=== PATIENT | female | born 2000 | race Caucasian/White ===

== ENCOUNTER 2020-07-09 12:47 | Emergency (ER) | payer OTHER, SELFPAY ==
[2020-07-09 12:48] VITALS: BP 124/69; PULSE 83; RESP 15; TEMP 36.4; O2SAT 98; BMI 33.3
--- NOTE | 2020-07-09 13:09 | CT_ITS ---
STUDY: CT ABDOMEN AND PELVIS WITHOUT CONTRAST REASON FOR EXAM: Female, 19 years old. One month history of lower abdominal pain. RADIATION DOSAGE (If Supplied By Facility): CTDIvol = ( 17.61 ) mGy, DLP = ( 955.60 ) mGycm TECHNIQUE: Transaxial images were obtained from the dome of the diaphragm to the symphysis pubis without oral contrast, and without intravenous contrast. Sagittal and coronal images were reconstructed. Individualized dose optimization techniques were used for this CT. COMPARISON: Comparison is made with prior examination of 11/18/2015. FINDINGS: The visualized lung bases are unremarkable. The visualized portions of the heart are within normal limits. Normal liver. Normal gallbladder and extrahepatic biliary system. Normal spleen. Normal pancreas. Normal bilateral adrenal glands. Normal right kidney. Normal left kidney. Normal visualized stomach. Normal small intestine. Normal colon. The appendix is visualized and appears normal. Normal abdominal aorta. Normal inferior vena cava. Normal retroperitoneum. Normal urinary bladder. Normal abdominal wall. Normal osseous structures. CT/Abdomen/Pelvis without Cont IMPRESSION: Normal unenhanced CT of the abdomen and pelvis. Electronically Signed: Anil Hassan MD at 14:48 EDT , Service support ,
--- NOTE | 2020-07-09 13:10 | ED.VIS.GI ---
HPI HPI - GI History of Present Illness Chief Complaint: Abd Pain Detail of Chief Complaint: Abdominal pain intermittently for a month Informant: patient Abdominal Pain/Flank Pain Current Severity: 10/10 Maximum Severity: 10/10 Diarrhea/Melena/Hematochezia GI Symptom: Negative for Diarrhea, Melena and Hematochezia Associated Symptoms LMP: 2 weeks ago Narrative Narrative: Patient presents with abdominal pain over the suprapubic region that is been there off and on for the last month. Patient states that the pains become more frequent over the last week and will last for hours at a time. Currently rates the pain a 10 out of 10. She has had 2 episodes of vomiting today. She denies fevers. She denies blood in her stool or black tarry stools. Last menstrual period was about 2 weeks ago and she has not missed menstrual period. Patient denies dysuria, urgency, or frequency. She has had no abdominal surgeries. She does have history of PCOS. She is never been . [facility] Home Medications NK 01/14/17 [History Last Taken Unknown] Allergy/AdvReac Type Severity Reaction Status Date / Time No Known Allergies Allergy Verified 07/09/20 12:49 Social History Smoking Status: Current every day smoker tobacco type: cigarettes ROS ROS ED Constitutional Constitutional ED: Reports systems reviewed and no addt'l complaints, except as documented; Denies body ache(s), change in weight or chills Eyes Eyes: Denies acute decrease in peripheral vision, change in vision, double vision or loss of vision ENT ENT ED: Reports none; Denies ear pain, lip swelling, loss taste/smell, neck pain, otalgia or sore throat Cardiovascular Cardiovascular: Reports none; Denies abdominal pain, chest pain with activity, leg edema, lightheadedness, palpitations, rapid heart rate or syncope Respiratory/Chest Respiratory/Chest: Reports none; Denies change in mental status, dry cough, dyspnea, hemoptysis, shortness of breath at rest or shortness of breath with exertion Gastrointestinal Gastrointestinal: Reports none, abdominal pain, nausea and vomiting; Denies change in stool character, diarrhea, hematemesis, hematochezia, melena or rectal bleeding Genitourinary Genitourinary ED: Reports none; Denies abdominal discomfort, anuria, dysuria, genital pain or polyuria Musculoskeletal Musculoskeletal: Reports none; Denies arthralgias, back pain, difficulty walking, extremity pain, muscle weakness or myalgias Integumentary Reports none; Denies abscess or rash Neurologic Neurologic: Reports none; Denies abnormal gait, confusion, focal weakness, frequent falls, headache(s), loss of vision, numbness, paresthesias, radicular pain, vertigo or weakness Psychiatric Psychiatric: Reports systems reviewed and no addt'l complaints, except as documented and none; Denies behavioral changes, confusion, difficulty concentrating, hallucinations, suicidal ideation, tactile hallucinations or visual hallucinations Endocrine Endocrinology: Denies none, cold intolerance, excessive sweating, fatigue or heat intolerance Hematologic/Lymphatic Hematologic/Lymphatic: Reports none; Denies anemia, easy bleeding or easy bruising Allergic/Immunologic Allergic/Immunologic ED: Denies as per HPI, none, lip swelling, mouth swelling, throat swelling, tongue swelling or hives EXAM Physical Exam Const Vital Signs: 07/09/20 12:48 Temperature 97.6 F L Temperature Source Temporal Pulse Rate 83 Respiratory Rate 15 Blood Pressure 124/69 H Blood Pressure Mean 87 Pulse Ox 98 Oxygen Delivery Method Room Air Positive well nourished and well developed General Appearance ED: well developed and NAD HEENT Reports TM's clear and moist mucous membranes normocephalic and atraumatic; Negative for trauma or tenderness Tympanic Membrane ED: Yes TM's clear Eyes PERRL and EOMs intact bilaterally General Eye ED: Negative for pale conjunctiva or scleral icterus Neck no lymphadenopathy, supple and no JVD General: Negative for tenderness Chest Wall inspection of chest normal and palpation of chest normal Chest: Negative for tenderness Resp normal respiratory effort and clear to auscultation bilaterally Effort and Inspection: Negative for respiratory distress or pain with movement Auscultation: Negative for rhonchi, wheezes or diminished lung sounds Cardio regular rate, regular rhythm, S1 normal heart sound, S2 normal heart sound and no murmurs Peripheral Pulses: pulses 2+ throughout GI normal to inspection, nondistended, normoactive bowel sounds, soft to palpation, non-distended and no masses; Negative for non-tender Palpation: tender suprapubic Back/Spine no CVA tenderness and no thoracic nor lumbar tenderness Extremity normal to inspection General Extremety ED: Negative for edema General Extremity: Negative for edema Neuro oriented x3, CN's II-XII intact bilaterally, no sensory deficits noted and gait normal Sensorium / Orientation: awake, alert, oriented to person, oriented to place and oriented to time Motor Exam: strength 5/5 throughout and strength abnormal Psych mental status grossly normal Skin no rashes or lesions noted and no wounds MDM MDM MDM Narrative Medical decision making narrative: Work-up in the emergency department was unremarkable. Patient was given Toradol 30 mg IV and she had some pain relief with that. On repeat examination her abdomen is benign. Etiology of her pain is unclear. Patient denies any abnormal vaginal discharge and is never had sexually transmitted disease. The GC and Chlamydia testing results will be pending. Lab Data Attestation: I reviewed the patient's lab results. Labs: Laboratory Results - last 24 hr 07/09/20 07/09/20 07/09/20 13:30 13:30 13:30 WBC 10.6 RBC 4.77 Hgb 14.2 Hct 41.1 MCV 86.2 MCH 29.8 MCHC 34.5 RDW Std Deviation 38.1 RDW Coeff of Connor 12.1 Plt Count Not Reportable MPV 11.7 Immature Gran % (Auto) 0.400 Neut % (Auto) 76.4 H Lymph % (Auto) 16.1 L Kane % (Auto) 6.5 Eos % (Auto) 0.3 Baso % (Auto) 0.3 Absolute Neuts (auto) 8.1 H Absolute Lymphs (auto) 1.70 Nucleated RBC % 0 Differential Comment SCANNED Platelet Estimate ADEQUATE Sodium 138 Potassium 3.4 L Chloride 107 Carbon Dioxide 26.0 Anion Gap 5 BUN 7 Creatinine 0.67 Estim Creat Clear Calc 121.53 Est GFR (MDRD) Af Amer 145 Est GFR (MDRD) Non-Af 120 BUN/Creatinine Ratio 10.4 Glucose 95 Calcium 9.0 Serum , Qual NEGATIVE Urine Color Urine Clarity Urine pH Ur Specific [place] Urine Protein Urine Glucose (UA) Urine Ketones Urine Occult Blood Urine Nitrite Urine Bilirubin Urine Urobilinogen Ur Leukocyte Esterase Urine RBC Urine WBC Ur Squamous Epith Cells Calcium Oxalate Crystal Amorphous Sediment Urine Bacteria Urine Mucus 07/09/20 13:30 WBC RBC Hgb Hct MCV MCH MCHC RDW Std Deviation RDW Coeff of Connor Plt Count MPV Immature Gran % (Auto) Neut % (Auto) Lymph % (Auto) Kane % (Auto) Eos % (Auto) Baso % (Auto) Absolute Neuts (auto) Absolute Lymphs (auto) Nucleated RBC % Differential Comment Platelet Estimate Sodium Potassium Chloride Carbon Dioxide Anion Gap BUN Creatinine Estim Creat Clear Calc Est GFR (MDRD) Af Amer Est GFR (MDRD) Non-Af BUN/Creatinine Ratio Glucose Calcium Serum , Qual Urine Color Yellow Urine Clarity Turbid Urine pH 6.0 Ur Specific [place] 1.025 Urine Protein 30 H Urine Glucose (UA) Normal Urine Ketones 5 H Urine Occult Blood Negative Urine Nitrite Negative Urine Bilirubin Negative Urine Urobilinogen 4 H Ur Leukocyte Esterase 100 H Urine RBC 0 SEEN Urine WBC 0 SEEN Ur Squamous Epith Cells 0-5 SEEN Calcium Oxalate Crystal RARE Amorphous Sediment 4+ Urine Bacteria 0 SEEN Urine Mucus 0 SEEN Radiography Diagnostic Testing: Radiology Impression Abdomen/Pelvis CT 07/09/20 13:09 IMPRESSION: Normal unenhanced CT of the abdomen and pelvis. Electronically Signed: Anil Hassan MD at 14:48 EDT , Service support , Discharge Plan Triage Chief Complaint: Abd Pain ED Provider: Charito Berman Dx/Rx/DC Orders Clinical Impression: Abdominal pain Instructions: ED Abdominal Pain Unkn Cause Fem Prescriptions: No Action NK RF: 0 Primary Care Provider: Care Physician,No Primary Referrals: Melissa Cerda MD [STAFF PHYSICIAN] - 3-5 Days Care Physician,No Primary [Primary Care Provider] - Disposition Disposition: Home, self care
[2020-07-09] MEDS: Ketorolac 30 MG/ML Syringe IV (13:27)
[2020-07-09] MEDS: Ondansetron 4 MG/2 ML Vial IV (13:27)
[2020-07-09] MEDS: 0.9% Normal Saline 1,000 ML 125 ML IV (13:30)
[2020-07-09 13:38] LABS: Bacteria 0 SEEN /hpf (None Seen); Mucous, Urine 0 SEEN /hpf (<or=2+); Red Blood Cells-Urine 0 SEEN /hpf (0-5); White Blood Cells 0 SEEN /hpf (0-5)
[2020-07-09 13:42] LABS: Absolute Neutrophil Count 8.1 X10^3/uL (2.0-7.7); Basophil# 0.03 X10^3/uL; Basophil% 0.3 % (0-1); Eosinophil# 0.03 X10^3/uL; Eosinophils% 0.3 % (0-5); Hematocrit 41.1 % (37-47); Hemoglobin 14.2 g/dL (12.0-15.0); Lymphocyte % 16.1 % (19-41); Mean Corp Hgb Conc 34.5 g/dL (32-36); Mean Corpuscular Hgb 29.8 pg (27.0-32.0); Mean Corpuscular Volume 86.2 fL (81-99); Mean Platelet Vol. 11.7 fl (6.2-12.0); Monocyte# 0.69 X10^3/uL; Monocyte% 6.5 % (0-10); NRBC Flagged by Analyzer 0 % (0-5); Neutrophil # 8.09 X10^3/uL (2.7-7.7); Neutrophil % 76.4 % (47-70); POSITIVE COUNT YES; RBC Distribution Width CV 12.1 % (11.6-14.6); RBC Distribution Width SD 38.1 fl (35.1-43.9); Red Blood Count 4.77 M/mm3 (4.2-5.4); White Blood Count 10.6 K/mm3 (4.4-11.0)
[2020-07-09 13:43] LABS: Color, Urine Yellow (Yellow); Glucose, Dipstick Normal (Normal); Ketone-Dipstick 5 mg/dl (Negative); Leukocyte Esterase-Dipstick 100 /ul (Negative); Nitrite-Dipstick Negative (Negative); Occult Blood-Urine Negative /ul (Negative); Protein-Dipstick 30 mg/dl (Negative); Specific Gravity, Urine 1.025 (1.002-1.030); Urine Bilirubin Dipstick Negative (Negative); Urine Clarity Turbid (Clear); Urine Urobilinogen 4 mg/dl (Normal)
[2020-07-09 13:49] LABS: Amorphous Sediment 4+; Calcium Oxalate Crystals Ur RARE /hpf (<or=2+); Squamous Epithelial Cells - UA 0-5 SEEN /hpf (5-10)
[2020-07-09 13:57] LABS: Anion Gap 5 (5-15); BUN 7 mg/dL (7-18); BUN/Creat Ratio 10.4 RATIO (10-20); Chloride 107 mmol/L (98-107); Creatinine, Serum 0.67 mg/dL (0.55-1.02); EST Glomerular Filtration Rate 120 mL/min (>60); Est Glom Filt Rate - Afr Amer 145 mL/min (>60); Estimated Creatinine Clearance 121.53 ml/min; Glucose 95 mg/dL (74-106); Potassium 3.4 mmol/L (3.5-5.1); Sodium Level 138 mmol/L (136-145)
[2020-07-09 14:03] LABS: Differential Indicated SCAN CRITERIA MET
[2020-07-09 14:05] LABS: Differential Comment SCANNED; Internal QC Validated? YES +Cl - CLEAR BKGD; Platelet Estimate ADEQUATE (ADEQ); Pregnancy, Serum, hCG Quali. NEGATIVE Negative
[2020-07-09 15:54] VITALS: PULSE 58; RESP 16; RESP 18; O2SAT 98
[2020-07-09 16:49] LABS: Chlamydia Trachomatis by PCR Negative (Negative); Neisserai gonorrhoeae by PCR Negative (Negative)
[2020-07-09 16:50] LABS: Probe Check PASS; Sample Adequacy Control PASS; Specimen Processing Control PASS
== END 2020-07-09 15:56 | disposition home or self-care (01) ==
PROVIDERS: Emergency Provider Emergency Medicine
DX: R10.9 Unspecified abdominal pain (principal); R11.2 Nausea with vomiting, unspecified; F17.210 Nicotine dependence, cigarettes, uncomplicated
CPT/HCPCS: 74176; 80048; 81001; 84703; 85025; 87491; 87591; 96361; 96374; 96375; 99284; A4216; J2405

== ENCOUNTER 2020-07-09 23:08 | Emergency (ER) | payer OTHER, SELFPAY ==
[2020-07-09 12:48] VITALS: BMI 33.3
[2020-07-09 23:09] VITALS: BP 126/75; PULSE 77; RESP 18; TEMP 36.2; O2SAT 98; BMI 34.8
--- NOTE | 2020-07-09 23:22 | ED.VIS.FEGU ---
HPI HPI - Female History of Present Illness Chief Complaint: Female C/O Narrative Narrative: Patient presents with persistent pain in her suprapubic region. She was seen in the emergency department the full work-up just this afternoon. She was discharged to take ibuprofen. She was given Toradol. Lab work and imaging studies showed nothing acute. They did do gonorrhea and Chlamydia testing that is pending at this time. She states she has persistent pain and had one episode of emesis this evening. 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 Stated she needs something stronger for pain. PFSH PFSH Home Medications ondansetron 4 mg PO Q8H #10 tab 07/09/20 [Rx Last Taken Unknown] oxycodone-acetaminophen [Percocet] 1 tab PO Q8H PRN 3 Days #10 tab 07/09/20 [Rx Last Taken Unknown] Allergy/AdvReac Type Severity Reaction Status Date / Time No Known Allergies Allergy Verified 07/09/20 12:49 Social History Smoking Status: Current every day smoker tobacco type: cigarettes ROS ROS ED ROS Narrative ROS General: Denies fever, chills, sweats Eyes: Denies visual changes, blurred vision, double vision ENT: Denies ear pain, rhinorrhea, sore throat Cardiovascular: Denies chest pain, palpitations, heart racing Respiratory: Denies dyspnea, cough, sputum, dyspnea on exertion, orthopnea,PND GI: See HPI : Denies dysuria, hematuria, frequency Musculoskeletal: Denies myalgias, arthralgias, neck pain, back pain Skin: Denies rash, abscess, abrasions Neuro: Denies headache, weakness, paresthesia Psych: Denies depression, anxiety Endo: Denies polyuria, polydipsia, polyphagia Heme: Denies easy bruising, easy bleeding, lymphadenopathy Allergy: Denies hives, swelling EXAM Physical Exam Narrative Exam Narrative: Vital signs reviewed General: Well-nourished well-developed Head: Normocephalic atraumatic Eyes: Pupils equal round and reactive to light extraocular movements intact ENT: TMs clear no hemotympanum no trauma Neck: Nontender full range of motion Cardiovascular: Regular rate rhythm no murmurs normal S1-S2 Respiratory: No distress clear to auscultation bilaterally chest nontender Abdomen: Soft nontender nondistended normal bowel sounds no masses Back: Nontender no CVA tenderness Extremities: Nontender active range of motion ?4 extremities no trauma Skin: Normal color no trauma Neuro alert oriented cranial nerves II through XII intact normal strength sensation reflexes Const Vital Signs: 07/09/20 23:09 Temperature 97.2 F L Temperature Source Temporal Pulse Rate 77 Respiratory Rate 18 Blood Pressure 126/75 H Blood Pressure Mean 92 Pulse Ox 98 Oxygen Delivery Method Room Air MDM MDM MDM Narrative Medical decision making narrative: Given injection of morphine and oral Zofran. Will be given a short course of Percocet and Zofran for home. We will follow-up as an outpatient. I do not feel she needs repeat lab work or imaging. Discharge Plan Triage Chief Complaint: Female C/O ED Provider: Tani Joseph Dx/Rx/DC Orders Clinical Impression: Abdominal pain Instructions: ED Abdominal Pain Unkn Cause Fem Prescriptions: New ondansetron 4 mg tablet,disintegrating 4 mg PO Q8H Qty: 10 RF: 0 oxycodone-acetaminophen [Percocet] 5-325 mg tablet 1 tab PO Q8H PRN (Reason: pain) 3 Days Qty: 10 RF: 0 Primary Care Provider: Care Physician,No Primary Referrals: Care Physician,No Primary [Primary Care Provider] - Disposition Disposition: Home, self care
[2020-07-09] MEDS: Ondansetron ODT 4 MG Tablet 8 MG PO (23:44)
[2020-07-09] MEDS: Morphine 4 MG/ML Syringe IM (23:45)
== END 2020-07-10 00:02 | disposition home or self-care (01) ==
LOC: ED 23:32
PROVIDERS: Emergency Provider Emergency Medicine
DX: R10.9 Unspecified abdominal pain (principal); R10.2 Pelvic and perineal pain; R11.10 Vomiting, unspecified; F17.210 Nicotine dependence, cigarettes, uncomplicated; Z79.899 Other long term (current) drug therapy
CPT/HCPCS: 96372; 99282

== ENCOUNTER 2020-12-08 13:05 | Emergency (ER) | payer OTHER, SELFPAY ==
[2020-12-08 13:06] VITALS: BP 116/64; PULSE 86; RESP 18; TEMP 35.5; O2SAT 97; BMI 36.1
== END 2020-12-08 15:25 | disposition left against medical advice (07) ==
LOC: ED 15:37
DX: R11.2 Nausea with vomiting, unspecified (principal); Z53.21 Procedure and treatment not carried out due to patient leaving prior to being seen by health care provider

== ENCOUNTER 2020-12-11 02:49 | Emergency (ER) | payer OTHER, SELFPAY ==
[2020-12-11 02:49] VITALS: BP 127/81; PULSE 91; RESP 18; TEMP 36; O2SAT 100; BMI 36.6
--- NOTE | 2020-12-11 03:01 | EX.ED.DYSGE1 ---
HPI History of Present Illness Chief Complaint: Nausea/Vomiting Informant: patient and spouse/S.O. Onset/Context/Timing Onset: Weeks Context: Sudden Onset Timing: Intermittent Quality: Nausea and vomiting Location: Thought to be due to Current Severity: Mild Maximum Severity: Severe Worsened by: Relieved by: Nothing Associated Symptoms Associated Symptoms: Thirst, dry mouth lightheadedness Narrative Narrative: Patient is a 19-year-old G 1, P0, Ab0 female whose last normal menstrual period was November 30. She had a home positive test. She has symptoms of . She is scheduled to see an OB next week. She has had no care. She complains of thirst, dry mouth and orthostatic symptoms. She presents because she vomited several times at work. She denies headache, visual, ocular auditory symptoms. Denies cardiac respiratory symptoms. She denies dysuria, frequency, urgency or hematuria. She denies rash. She denies myalgias arthralgias. Prior similar symptoms: No Recent Illness/Hospitalization: No PFSH PFSH Medical History (Updated 12/11/20 @ 03:[address] Wilfredo Mendez MD) Asthma Medical History no medical history no medical history Home Medications ondansetron 4 mg PO Q8H PRN PRN #10 tab 12/11/20 [Rx Last Taken Unknown] Allergy/AdvReac Type Severity Reaction Status Date / Time No Known Allergies Allergy Verified 12/11/20 02:52 Surgical History no surgical history no surgical history Social History (Updated 12/11/20 @ 03:[address] Wilfredo Mendez MD) household members: significant other Smoking Status: Current every day smoker tobacco type: cigarettes alcohol intake: never substance use type: does not use ROS ROS ED Constitutional Constitutional ED: Denies chills, fever(s), subjective, sweats or weight loss Eyes Eyes: Denies blurry vision, change in vision or diplopia ENT ENT ED: Denies ear pain, rhinorrhea or sore throat Cardiovascular Cardiovascular: Denies chest pain Respiratory/Chest Respiratory/Chest: Denies cough, dyspnea or dyspnea on exertion Gastrointestinal Gastrointestinal: Reports nausea and vomiting; Denies abdominal pain, constipation, diarrhea or melena Genitourinary Genitourinary ED: Reports LMP (females 10-50); Denies dysuria, hematuria or urinary frequency Musculoskeletal Musculoskeletal: Denies arthralgias, back pain, myalgias or neck pain Integumentary Denies rash Neurologic Neurologic: Denies headache(s) or weakness Endocrine Endocrinology: Denies polydipsia, polyphagia or polyuria EXAM Physical Exam Const Vital Signs: 12/11/20 02:49 Temperature 96.8 F L Temperature Source Temporal Pulse Rate 91 Respiratory Rate 18 Blood Pressure 127/81 H Blood Pressure Mean 96 Pulse Ox 100 Oxygen Delivery Method Room Air Positive well nourished, well developed and obese General Appearance ED: well developed and NAD; Negative for pallor Nutritional Appearance: obese HEENT Reports dry mucous membranes HEENT Narrative: Head is atraumatic normocephalic. Nares patent. Ears normal. Posterior pharynx not erythema or exudate. Mouth ED: Yes dry mucous membranes Mouth: dry mucous membranes Eyes PERRL and EOMs intact bilaterally General Eye ED: Negative for pale conjunctiva or scleral icterus Neck no lymphadenopathy, supple and no JVD Resp normal respiratory effort and clear to auscultation bilaterally Cardio regular rate, regular rhythm, S1 normal heart sound, S2 normal heart sound and no murmurs GI normal to inspection, nondistended, normoactive bowel sounds, non-tender and non-distended Palpation: soft Back/Spine no CVA tenderness Cervical Spine: Negative for cervical spine tenderness Thoracic Spine / Upper Back: Negative for thoracic spinal tenderness or paraspinal muscle tenderness Extremity normal to inspection General Extremety ED: Negative for edema or tenderness General Extremity: Negative for edema Neuro oriented x3, CN's II-XII intact bilaterally and no sensory deficits noted Sensorium / Orientation: alert Motor Exam: strength 5/5 throughout Psych mental status grossly normal Skin no rashes or lesions noted and no wounds General Skin Exam: Negative for jaundice or pallor MDM MDM MDM Narrative Medical decision making narrative: Patient presents with hyperemesis gravidarum first trimester. Urine was obtained for ketones specific gravity. She was treated with 1 L of normal saline and 4 mg of Zofran. Patient was reassessed at 0410. Her nausea is resolved. She feels hungry. She has had no vomiting. She is passed p.o. challenge. She has an appointment with her animal science instructor on Tuesday, December 16. Lab Data Attestation: I reviewed the patient's lab results. Lab results narrative: Urine is a contaminated specimen with 10 epithelial cells. Since patient has rare bacteria negative nitrites and no symptoms culture was not sent even though she is . There is ketones. Specific gravity is 1.015. Labs: Laboratory Results - last 24 hr 12/11/20 03:07 Urine Color Yellow Urine Clarity Clear Urine pH 6.5 Ur Specific [place] 1.015 Urine Protein 15 H Urine Glucose (UA) Normal Urine Ketones 50 H Urine Occult Blood Negative Urine Nitrite Negative Urine Bilirubin Negative Urine Urobilinogen 1 H Ur Leukocyte Esterase 25 H Urine RBC 0 SEEN Urine WBC 0-5 SEEN Ur Squamous Epith Cells 5-10 SEEN Amorphous Sediment 1+ Urine Bacteria RARE Urine Mucus 0 SEEN Discharge Plan Triage Chief Complaint: Nausea/Vomiting ED Provider: Wilfredo Mendez Dx/Rx/DC Orders Clinical Impression: Hyperemesis gravidarum with dehydration, Ketosis Instructions: ED Hyperemesis Gravidarum Prescriptions: New ondansetron [ondansetron] 4 MG tablet 4 mg PO Q8H PRN PRN (Reason: Nausea) Qty: 10 RF: 0 Primary Care Provider: Care Physician,No Primary Referrals: Care Physician,No Primary [Primary Care Provider] - Doctor,Your [STAFF PHYSICIAN] - [facility] appointment Disposition Disposition: Home, Self Care
[2020-12-11] MEDS: 0.9% Normal Saline 1,000 ML 1000 ML IV (03:08)
[2020-12-11 03:15] LABS: Mucous, Urine 0 SEEN /hpf (<or=2+); Red Blood Cells-Urine 0 SEEN /hpf (0-5)
[2020-12-11] MEDS: Ondansetron 4 MG/2 ML Vial IV (03:15)
[2020-12-11 03:18] LABS: Color, Urine Yellow (Yellow); Glucose, Dipstick Normal (Normal); Ketone-Dipstick 50 mg/dl (Negative); Leukocyte Esterase-Dipstick 25 /ul (Negative); Nitrite-Dipstick Negative (Negative); Occult Blood-Urine Negative /ul (Negative); Protein-Dipstick 15 mg/dl (Negative); Specific Gravity, Urine 1.015 (1.002-1.030); Urine Bilirubin Dipstick Negative (Negative); Urine Clarity Clear (Clear); Urine Urobilinogen 1 mg/dl (Normal); Urine pH 6.5 (5.0 - 8.0)
[2020-12-11 03:42] LABS: Amorphous Sediment 1+; Bacteria RARE /hpf (None Seen); White Blood Cells 0-5 SEEN /hpf (0-5)
[2020-12-11 03:43] LABS: Squamous Epithelial Cells - UA 5-10 SEEN /hpf (5-10)
[2020-12-11 04:24] VITALS: BP 125/60; PULSE 78; RESP 18; O2SAT 97
== END 2020-12-11 04:28 | disposition home or self-care (01) ==
PROVIDERS: Emergency Provider Emergency Medicine
DX: O21.1 Hyperemesis gravidarum with metabolic disturbance (principal); E86.0 Dehydration; O99.511 Diseases of the respiratory system complicating pregnancy, first trimester; J45.909 Unspecified asthma, uncomplicated; O99.211 Obesity complicating pregnancy, first trimester; E66.9 Obesity, unspecified; O99.331 Smoking (tobacco) complicating pregnancy, first trimester; F17.210 Nicotine dependence, cigarettes, uncomplicated; Z3A.00 Weeks of gestation of pregnancy not specified
CPT/HCPCS: 81001; 96361; 96374; 99282; J7030; A4216; J2405

== ENCOUNTER 2020-12-12 17:01 | Emergency (ER) | payer BC, OTHER, SELFPAY ==
[2020-12-12 17:03] VITALS: BP 112/63; PULSE 91; RESP 14; TEMP 36.1; O2SAT 98; BMI 36.6
--- NOTE | 2020-12-12 17:45 | EDS_ITS ---
HPI HPI - Female History of Present Illness Chief Complaint: Informant: patient Narrative Narrative: 19-year-old female G1, P0 states that she has been vomiting since 2:00 this afternoon. 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 States she was given a prescription for Zofran ODT. She states about 15 minutes after she takes the Zofran she vomits it back up. I asked how that could be if it dissolved she states she does not know but the emesis is white. She does not remember who her learning facilitator is but notes that she has an appointment next week. She notes constipation. No fevers. PFSH PFSH Medical History Asthma Home Medications ondansetron 4 mg PO Q8H PRN PRN #10 tab 12/11/20 [Rx Last Taken Unknown] promethazine 25 mg PO Q6H PRN PRN #10 tablet 12/12/20 [Rx Last Taken Unknown] Allergy/AdvReac Type Severity Reaction Status Date / Time No Known Allergies Allergy Verified 12/12/20 17:03 Social History household members: significant other Smoking Status: Current every day smoker tobacco type: e-cigarettes alcohol intake: never substance use type: does not use ROS ROS ED Constitutional Constitutional ED: Denies chills, fever(s) or weight loss Eyes Eyes: Denies change in vision or diplopia ENT ENT ED: Denies ear pain, rhinorrhea or sore throat Cardiovascular Cardiovascular: Denies chest pain, orthopnea, palpitations or racing heartbeat Respiratory/Chest Respiratory/Chest: Denies cough, dyspnea or orthopnea Gastrointestinal Gastrointestinal: Reports constipation, nausea and vomiting; Denies abdominal pain or diarrhea Genitourinary Genitourinary ED: Denies dysuria, hematuria or urinary frequency Musculoskeletal Musculoskeletal: Denies arthralgias or myalgias Integumentary Denies abscess or rash Neurologic Neurologic: Denies headache(s) or weakness Psychiatric Psychiatric: Denies anxiety, depression, suicidal ideation or suicidal thoughts Endocrine Endocrinology: Denies polydipsia, polyphagia or polyuria Allergic/Immunologic Allergic/Immunologic ED: Denies mouth swelling, tongue swelling or urticaria EXAM Physical Exam Const Vital Signs: 12/12/20 17:03 Temperature 96.9 F L Temperature Source Temporal Pulse Rate 91 Respiratory Rate 14 Blood Pressure 112/63 Blood Pressure Mean 79 Pulse Ox 98 Oxygen Delivery Method Room Air Positive well nourished and well developed General Appearance ED: well developed HEENT Reports normocephalic, head/scalp atraumatic, TM's clear and moist mucous membranes Negative for trauma Tympanic Membrane ED: Yes TM's clear Eyes PERRL and EOMs intact bilaterally Neck no lymphadenopathy, supple and no JVD Resp normal respiratory effort and clear to auscultation bilaterally Cardio regular rate, regular rhythm and no murmurs GI normal to inspection, nondistended, normoactive bowel sounds and non-tender Palpation: soft Back/Spine no CVA tenderness and normal ROM Extremity normal to inspection General Extremety ED: Negative for edema General Extremity: Negative for edema Neuro oriented x3 and CN's II-XII intact bilaterally Sensorium / Orientation: alert Motor Exam: strength 5/5 throughout Psych mental status grossly normal Mood & Affect: Negative for depressed or tearful Skin no rashes or lesions noted and no wounds MDM MDM MDM Narrative Medical decision making narrative: Patient informed nursing that she needs to get some sleep before she goes to work tonight so she needs to leave. I can write for her to have some Phenergan. Discharge Plan Triage Chief Complaint: ED Provider: London Elmore Dx/Rx/DC Orders Clinical Impression: Hyperemesis gravidarum with dehydration Instructions: ED Hyperemesis Gravidarum Prescriptions: New promethazine [promethazine] 25 MG tablet 25 mg PO Q6H PRN PRN (Reason: Nausea) Qty: 10 RF: 0 No Action ondansetron [ondansetron] 4 MG tablet 4 mg PO Q8H PRN PRN (Reason: Nausea) Qty: 10 RF: 0 Primary Care Provider: Care Physician,No Primary Referrals: Care Physician,No Primary [Primary Care Provider] - Activity Restrictions/Additional Instructions: Please follow-up with with your learning facilitator as scheduled Disposition Disposition: Against Medical Advice
--- NOTE | 2020-12-12 18:19 | NURSING ---
Went into room to have patient leave urine specimen and draw labs and start IV. Patient is leaving because she has to go to work and does not have time to be here.She states she cannot wait longer and wants sleep so they cannot stay. Dr Elmore is aware.
== END 2020-12-12 18:35 | disposition left against medical advice (07) ==
PROVIDERS: Emergency Provider Emergency Medicine
DX: O21.1 Hyperemesis gravidarum with metabolic disturbance (principal); E86.0 Dehydration; O99.519 Diseases of the respiratory system complicating pregnancy, unspecified trimester; J45.909 Unspecified asthma, uncomplicated; K59.00 Constipation, unspecified; O99.330 Smoking (tobacco) complicating pregnancy, unspecified trimester; F17.290 Nicotine dependence, other tobacco product, uncomplicated; Z3A.00 Weeks of gestation of pregnancy not specified
CPT/HCPCS: 99282

== ENCOUNTER 2020-12-14 05:33 | Emergency (ER) | payer OTHER, SELFPAY ==
[2020-12-14 05:34] VITALS: BP 136/74; PULSE 78; RESP 16; TEMP 36; O2SAT 97; BMI 39.0
--- NOTE | 2020-12-14 05:45 | EDS_ITS ---
HPI History of Present Illness Chief Complaint: Nausea/Vomiting Informant: patient Onset/Context/Timing Onset: Weeks (2-3) Context: Gradual Onset Timing: Intermittent Quality: Nonbilious nonbloody Current Severity: Severe Maximum Severity: Severe Worsened by: Eating/drinking Relieved by: Nothing Associated Symptoms Associated Symptoms: No pain or vaginal bleeding Narrative Narrative: G1, P0 around 6 weeks by dates with last normal menstrual cycle starting on October 31 presenting with 2 to 3 weeks of vomiting. She was seen here couple days ago prescribed Zofran, however she had a couple episodes of hyperemesis after that that caused her to dissolve the tablet under her tongue and then vomit after she tried to wash the residual down with some water, and then seen abnormal vomit thinking she vomited up all the medication and then she would take another Zofran until basically they were all gone now she does not have any. Today, she has been vomiting continuously for the past 5 hours or so and presents at about 5:30 AM. She states she feels a little shaky and lightheaded and is wondering if we can check her blood sugar since diabetes runs in the family. [facility] Medical History Asthma Home Medications ondansetron 4 mg PO Q8H PRN PRN #10 tab 12/11/20 [Rx Last Taken Unknown] metoclopramide HCl 10 mg PO Q6H PRN #20 tab 12/14/20 [Rx Last Taken Unknown] Allergy/AdvReac Type Severity Reaction Status Date / Time No Known Allergies Allergy Verified 12/12/20 17:03 Social History household members: significant other Smoking Status: Current every day smoker tobacco type: e-cigarettes alcohol intake: never substance use type: does not use ROS ROS ED Constitutional Constitutional ED: Reports malaise; Denies chills or fever(s) Eyes Eyes: Denies change in vision or diplopia ENT ENT ED: Denies rhinorrhea or sore throat Cardiovascular Cardiovascular: Denies chest pain or palpitations Respiratory/Chest Respiratory/Chest: Denies cough or dyspnea Gastrointestinal Gastrointestinal: Reports nausea and vomiting; Denies abdominal pain or diarrhea Genitourinary Genitourinary ED: Denies dysuria or hematuria Musculoskeletal Musculoskeletal: Denies back pain or neck pain Integumentary Denies abscess or rash Neurologic Neurologic: Denies headache(s), paresthesias or weakness Psychiatric Psychiatric: Denies anxiety or suicidal thoughts EXAM Physical Exam Const Vital Signs: 12/14/20 05:34 Temperature 96.8 F L Temperature Source Temporal Pulse Rate 78 Respiratory Rate 16 Blood Pressure 136/74 H Blood Pressure Mean 94 Pulse Ox 97 Oxygen Delivery Method Room Air Positive well nourished and well developed General Appearance ED: well developed and NAD HEENT Reports moist mucous membranes normocephalic and atraumatic Eyes PERRL and EOMs intact bilaterally Neck full ROM and supple Resp normal respiratory effort and clear to auscultation bilaterally Cardio regular rate, regular rhythm and no murmurs Rate: Negative for tachycardic GI non-tender and non-distended Auscultation: normoactive bowel sounds Palpation: soft Back/Spine no CVA tenderness General Back: other FROM Extremity normal to inspection Extremity Narrative: Mildly tremulous General Extremety ED: Negative for edema, pulses abnormal or tenderness General Extremity: Negative for edema or pulses abnormal Neuro oriented x3, CN's II-XII intact bilaterally, no focal motor deficits, no sensory deficits noted and gait normal Sensorium / Orientation: awake and alert Motor Exam: strength 5/5 throughout Skin no rashes or lesions noted and no wounds MDM MDM MDM Narrative Medical decision making narrative: I did a bedside screening ultrasound since she had not had one yet. There appears to be a uterine double decidual sign with a gestational sac without an obvious pole although this is with a small ED screening ultrasound since regular radiology ultrasound is not available at this hour. The gestational sac measures approximately 5w5d, which is consistent with the patient's dates. Given that she is not having symptoms of a threatened , I do not think she needs an official ultrasound, quantitative hCG, or other imaging work-up at this time. We did check her blood sugar and electrolytes, and give her a liter of fluid along with Reglan 5 mg IV. She did feel improved with this but still nauseated. There was no vomiting while she was in the emergency department. Her labs are normal. After the liter of fluid was done, she demanded to the nurse that she take the IV out immediately. She wanted something else for nausea, but not in this IV. 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 Lab Data Attestation: I reviewed the patient's lab results. Labs: Laboratory Results - last 24 hr 12/14/20 12/14/20 05:34 05:44 Sodium 139 Potassium 3.5 Chloride 107 Carbon Dioxide 24.0 Anion Gap 8 BUN 5 L Creatinine 0.70 Estim Creat Clear Calc 102.24 Est GFR (MDRD) Af Amer 138 Est GFR (MDRD) Non-Af 114 BUN/Creatinine Ratio 7.2 L Glucose 96 Calcium 8.9 POC Glucose 101 Discharge Plan Triage Chief Complaint: Nausea/Vomiting ED Provider: Davis Dorman Dx/Rx/DC Orders Clinical Impression: Hyperemesis gravidarum, Early stage of Instructions: ED Hyperemesis Gravidarum Prescriptions: New metoclopramide HCl [metoclopramide HCl] 10 MG tablet 10 mg PO Q6H PRN (Reason: nausea and vomiting) Qty: 20 RF: 0 No Action ondansetron [ondansetron] 4 MG tablet 4 mg PO Q8H PRN PRN (Reason: Nausea) Qty: 10 RF: 0 Primary Care Provider: Care Physician,No Primary Referrals: OB, your [Other] - 3-5 Days if not improving Care Physician,No Primary [Primary Care Provider] - Disposition Disposition: Home, Self Care
[2020-12-14 05:51] LABS: Bedside Glucose 101 mg/dL (70-110)
[2020-12-14] MEDS: 0.9% Normal Saline 1,000 ML 999 ML IV (05:55)
[2020-12-14] MEDS: Metoclopramide 10 MG/2 ML Vial 5 MG IV (05:55)
[2020-12-14 06:22] LABS: Anion Gap 8 (5-15); BUN 5 mg/dL (7-18); BUN/Creat Ratio 7.2 RATIO (10-20); Calcium,Total 8.9 mg/dL (8.5-10.1); Chloride 107 mmol/L (98-107); EST Glomerular Filtration Rate 114 mL/min (>60); Est Glom Filt Rate - Afr Amer 138 mL/min (>60); Estimated Creatinine Clearance 102.24 ml/min; Glucose 96 mg/dL (74-106); Potassium 3.5 mmol/L (3.5-5.1); Sodium Level 139 mmol/L (136-145)
[2020-12-14] MEDS: Ondansetron 8 MG Tablet PO (07:08)
== END 2020-12-14 07:09 | disposition home or self-care (01) ==
PROVIDERS: Emergency Provider Emergency Medicine
DX: O21.0 Mild hyperemesis gravidarum (principal); J45.909 Unspecified asthma, uncomplicated; O99.331 Smoking (tobacco) complicating pregnancy, first trimester; Z3A.01 Less than 8 weeks gestation of pregnancy; Z83.3 Family history of diabetes mellitus
CPT/HCPCS: 80048; 82962; 96361; 96374; 99284; J7030

== ENCOUNTER 2021-01-19 15:16 | Emergency (ER) | payer OTHER, SELFPAY ==
[2021-01-19 15:17] VITALS: BP 128/85; PULSE 90; RESP 16; TEMP 36.3; O2SAT 96; BMI 32.1
== END 2021-01-19 16:16 | disposition left against medical advice (07) ==
LOC: ED 16:19
DX: R10.9 Unspecified abdominal pain (principal); Z53.21 Procedure and treatment not carried out due to patient leaving prior to being seen by health care provider

== ENCOUNTER 2021-04-19 11:17 | Outpatient (CLI) | payer OTHER, SELFPAY ==
[2021-04-19 11:17] VITALS: TEMP 36.4
[2021-04-19 11:23] VITALS: BMI 33.7
[2021-04-19 11:37] VITALS: BP 121/65; PULSE 65
[2021-04-19 11:42] LABS: Color, Urine Yellow (Yellow); Glucose, Dipstick Normal (Normal); Ketone-Dipstick 50 mg/dl (Negative); Leukocyte Esterase-Dipstick 25 /ul (Negative); Nitrite-Dipstick Negative (Negative); Occult Blood-Urine Negative /ul (Negative); Protein-Dipstick 15 mg/dl (Negative); Specific Gravity, Urine 1.015 (1.002-1.030); Urine Clarity Sl. Cloudy (Clear); Urine Urobilinogen 4 mg/dl (Normal); Urine pH 6.5 (5.0 - 8.0)
--- NOTE | 2021-04-19 11:44 | PN_ITS ---
Progress Note 20-year-old G1, P0 at 24/2 weeks, CHAN 08/07/2021 by LMP, presenting with vaginal pain. Patient reports vaginal pain that started yesterday. Pain felt like a pressure. Reports some cramping on and off that felt like menstrual cramps. She had intercourse yesterday as well. Unsure if she had intercourse before or after the cramping started. This morning she noted some yellow/green discharge . Reports movement, denies contractions or leaking of fluid. No itching or burning vaginally, no urinary symptoms. complicated by: Nothing [employer] history: G1 current Medical history: Denies Surgical history: Tonsillectomy Family history noncontributory Social history: Reports marijuana use and vaping, denies alcohol use Allergies: No known drug allergies Medications: Pepcid, Physical Exam: BP: 121/65, HR 65 Gen: No acute distress, comfortable in bed HEENT: Normocephalic/atraumatic Cardiorespiratory: No increased effort Abdomen: Soft, nontender, gravid Extremities: No edema SSE: Thin white discharge. CE: Cervix closed/thick/high FHR: 155/mod angie/+accel/no decel [facility]: quiet A/P:20-year-old G1, P0 at 24/2 weeks, CHAN 08/07/2021 by LMP, presenting with vaginal pressure and green discharge. status reassuring. Not in labor. Will treat empirically for bacterial vaginosis infection. Urinalysis pending. P.o. hydrate well awaiting urinalysis. Encourage at least 2 L of water daily. Encourage decreased vaping and cigarette use. Likely to be discharged home today. Reviewed precautions: Leaking of fluid, vaginal bleeding, decrease movement, regular contractions that are worsening. Has appointment next week.
[2021-04-19 12:24] LABS: Urine Bilirubin Dipstick 1 mg/dL (Negative)
[2021-04-19 13:06] VITALS: TEMP 36.6
[2021-04-19 13:07] VITALS: BP 122/63; PULSE 68
== END 2021-04-19 23:59 | disposition home or self-care (01) ==
LOC: WPOUT 11:21 → WP 11:21
PROVIDERS: Referring Provider Student in an Organized Health Care Education/Training Program; Visit Provider Student in an Organized Health Care Education/Training Program
DX: O23.592 Infection of other part of genital tract in pregnancy, second trimester (principal); N76.0 Acute vaginitis; O99.332 Smoking (tobacco) complicating pregnancy, second trimester; F17.210 Nicotine dependence, cigarettes, uncomplicated; Z3A.24 24 weeks gestation of pregnancy; O26.892 Other specified pregnancy related conditions, second trimester; R10.2 Pelvic and perineal pain
CPT/HCPCS: 59050; 81002; 87086; 87088; 99218; G0378

== ENCOUNTER → 2021-06-08 | Outpatient (CLI) | payer OTHER, SELFPAY | END | disposition home or self-care (01) | LOC: WOBLAB 15:44 | PROVIDERS: Visit Provider Obstetrics & Gynecology | DX: Z34.83 Encounter for supervision of other normal pregnancy, third trimester (principal) | CPT/HCPCS: 36415; 86850 ==

== ENCOUNTER 2021-06-15 11:55 | Outpatient (CLI) | payer OTHER, SELFPAY ==
[2021-06-15 12:09] VITALS: BMI 32.5
[2021-06-15 12:14] VITALS: BP 114/56; PULSE 81; TEMP 36.6
--- NOTE | 2021-06-25 09:08 | OB.TRI.NOTE ---
HPI - General HPI Narrative CHANA DE LA O, is a 20 F who presents for scheduled nonstress test at 32+ weeks gestation. PFSH PFSH Medical History Asthma Home Medications 2 gummy PO/SL DAILY 06/15/21 [History Last Taken 06/14/21 21:00] Allergy/AdvReac Type Severity Reaction Status Date / Time No Known Allergies Allergy Verified 06/15/21 12:12 Social History household members: significant other Smoking Status: Current every day smoker tobacco type: e-cigarettes alcohol intake: never substance use type: does not use NST FHR Rate Baby A NST Reactive:: Yes FHR Category:: Category I Assessment & Plan (1) Intrauterine growth restriction, antepartum: PLAN: 32+ week intrauterine for scheduled nonstress test for intrauterine growth restriction. Reactive nonstress test. Continue present care.
== END 2021-06-15 12:38 | disposition home or self-care (01) ==
LOC: WPOUT 12:00 → WP 12:01
PROVIDERS: Visit Provider Obstetrics & Gynecology
DX: O36.5930 Maternal care for other known or suspected poor fetal growth, third trimester, not applicable or unspecified (principal); O99.333 Smoking (tobacco) complicating pregnancy, third trimester; F17.290 Nicotine dependence, other tobacco product, uncomplicated; Z3A.32 32 weeks gestation of pregnancy
CPT/HCPCS: 59025; 59050; 99218; G0378

== ENCOUNTER 2021-06-20 00:01 | Emergency (ER) | payer OTHER, SELFPAY ==
[2021-06-20 00:03] VITALS: BP 124/56; PULSE 82; RESP 20; TEMP 36.5; O2SAT 96; BMI 33.9
[2021-06-20 01:05] VITALS: BP 124/56; PULSE 78; RESP 16; O2SAT 97
[2021-06-20 01:08] VITALS: O2SAT 97
--- NOTE | 2021-06-20 02:44 | EDS_ITS ---
HPI History of Present Illness Chief Complaint: Asthma Narrative Narrative: 20-year-old female currently in her third trimester presenting with what she believes is an asthma attack. She states she is felt like he has been wheezing all day. She denies chest pain. Patient states she does not have an albuterol inhaler at home. Denies fever, chills, cough. Does admit to mild shortness of breath. [facility] Medical History Asthma Home Medications 2 gummy PO/SL DAILY 06/15/21 [History Last Taken 06/14/21 21:00] Allergy/AdvReac Type Severity Reaction Status Date / Time No Known Allergies Allergy Verified 06/15/21 12:12 Social History household members: significant other Smoking Status: Current every day smoker tobacco type: e-cigarettes alcohol intake: never substance use type: does not use ROS ROS ED Constitutional Constitutional ED: Denies fever(s) or sweats Eyes Eyes: Denies blurry vision ENT ENT ED: Denies rhinorrhea or sore throat Cardiovascular Cardiovascular: Denies chest pain Respiratory/Chest Respiratory/Chest: Reports dyspnea; Denies cough Gastrointestinal Gastrointestinal: Denies abdominal pain, nausea or vomiting Genitourinary Genitourinary ED: Denies dysuria or hematuria Musculoskeletal Musculoskeletal: Denies arthralgias or myalgias Integumentary Denies rash Neurologic Neurologic: Denies headache(s) or weakness Psychiatric Psychiatric: Denies anxiety or depression EXAM Physical Exam Const Vital Signs: 06/20/21 00:03 06/20/21 01:05 06/20/21 01:08 Temperature 97.7 F L Temperature Source Oral Pulse Rate 82 78 Respiratory Rate 20 H 16 Respiratory Effort Non-Labored Respiratory Depth Normal Respiratory Pattern Normal Blood Pressure 124/56 H 124/56 H Blood Pressure Mean 78 Pulse Ox 96 97 Oxygen Delivery Method Room Air Room Air Positive well nourished General Appearance ED: NAD; Negative for pallor HEENT Reports moist mucous membranes atraumatic Eyes PERRL and EOMs intact bilaterally Neck supple Resp normal respiratory effort and clear to auscultation bilaterally Cardio regular rate and regular rhythm Extremity normal to inspection General Extremety ED: Negative for edema or tenderness General Extremity: Negative for edema Neuro oriented x3 and CN's II-XII intact bilaterally Sensorium / Orientation: alert Psych mental status grossly normal Skin General Skin Exam: Negative for jaundice or pallor MDM MDM MDM Narrative Medical decision making narrative: Patient seen and examined for possible asthma exacerbation. On examination she is not wheezing. She is not tachycardic or tachypneic. She states that she feels like she is improving. I offered her breathing treatments but she states he just wants a refill on her albuterol inhaler. She was given 2 puffs of 1 in the ER and discharged home with this. Patient states that she will follow-up with her primary care provider to ensure resolution. She was given return precautions. I do not believe she has blood work or imaging currently. Patient discharged in stable condition. Impression: 1. Asthma exacerbation Discharge Plan Triage Chief Complaint: Asthma ED Provider: Mark Guerrero Dx/Rx/DC Orders Instructions: ED Asthma, Acute (Adult) Prescriptions: No Action 2 gummy PO/SL DAILY RF: 0 Primary Care Provider: Mike Rodriguez Referrals: Care Physician,No Primary [NON-STAFF] - Disposition Disposition: Home, Self Care Discharge Date/Time: 06/20/21 01:08
== END 2021-06-20 01:08 | disposition home or self-care (01) ==
LOC: ED 01:00
PROVIDERS: Emergency Provider Student in an Organized Health Care Education/Training Program; PCP Obstetrics & Gynecology; Visit Provider Student in an Organized Health Care Education/Training Program
DX: O99.513 Diseases of the respiratory system complicating pregnancy, third trimester (principal); J45.901 Unspecified asthma with (acute) exacerbation; O99.333 Smoking (tobacco) complicating pregnancy, third trimester; F17.290 Nicotine dependence, other tobacco product, uncomplicated; Z3A.00 Weeks of gestation of pregnancy not specified
CPT/HCPCS: 99282

== ENCOUNTER 2021-08-11 01:35 | Inpatient (IN) | payer OTHER, MEDICAID, SELFPAY ==
[2021-08-11] VITALS (43 sets, daily range): BP systolic 108–143; BP diastolic 58–92; PULSE 55–98; TEMP 36.3–37; O2SAT 96–100; BMI 34.6
[2021-08-11] MEDS: Lactated Ringers 1,000 ML 50 ML IV (01:48)
[2021-08-11] MEDS: LACTATED RINGERS 500 ML 999 ML IV (01:50)
[2021-08-11 02:06] LABS: Absolute Lymphocyte Count 2.81 X10^3/uL (0.83-4.51); Absolute Neutrophil Count 7.8 X10^3/uL (2.0-7.7); Basophil# 0.03 X10^3/uL; Basophil% 0.3 % (0-1); Eosinophil# 0.14 X10^3/uL; Eosinophils% 1.2 % (0-5); Hematocrit 35.8 % (37-47); Hemoglobin 13.1 g/dL (12.0-15.0); Lymphocyte # 2.81 X10^3/ul (0.83-4.51); Lymphocyte % 24.3 % (19-41); Mean Corp Hgb Conc 36.6 g/dL (32-36); Mean Corpuscular Hgb 31.3 pg (27.0-32.0); Mean Corpuscular Volume 85.6 fL (81-99); Mean Platelet Vol. 12.7 fl (6.2-12.0); Monocyte% 6.1 % (0-10); NRBC Flagged by Analyzer 0 % (0-5); Neutrophil # 7.83 X10^3/uL (2.7-7.7); Neutrophil % 67.6 % (47-70); Platelet Count 273 K/mm3 (150-450); RBC Distribution Width CV 12.5 % (11.6-14.6); RBC Distribution Width SD 38.8 fl (35.1-43.9); Red Blood Count 4.18 M/mm3 (4.2-5.4); White Blood Count 11.6 K/mm3 (4.4-11.0)
[2021-08-11 02:52] LABS: Amphetamine Urine VISTA NEGATIVE (<1000 ng/mL); Barbiturate Urine VISTA NEGATIVE (< 200 ng/mL); Benzodiazepine Urine VISTA NEGATIVE (< 200 ng/mL); Cocaine Urine VISTA NEGATIVE (< 300 ng/mL); Ecstacy Urine VISTA NEGATIVE (< 500 ng/mL); Methadone Urine VISTA NEGATIVE (< 300 ng/mL); PCP Urine VISTA NEGATIVE (< 25 ng/mL); THC Urine VISTA POSITIVE (< 50 ng/mL); Vista UDS pH Range 6
[2021-08-11] MEDS: fentaNYL-bupivacaine (epidural) 100 ML BAG EPIDURAL ×3 (02:55→18:39)
[2021-08-11] MEDS: Ondansetron 4 MG/2 ML Vial IV ×4 (03:26→21:26)
--- NOTE | 2021-08-11 04:45 | PCM.HP.OB ---
HPI - General General Date of Admission: 08/11/21 Date of Service: 08/11/21 Chief Complaint: painful contractions HPI Narrative CHANA DE LA O, is a 20 F G1 who presents at 40 4/7 weeks gestation by LMP 10/31/20 (CHAN 08/07/21) with c/o painful contractions. PFSH PFS Medical History (Updated 08/11/21 @ 04:[address] Martha Montenegro MD) Anxiety Asthma Depression Home Medications iron 1 tablet PO/SL DAILY Check with primary doctor 08/11/21 [History Last Taken Unknown] Allergy/AdvReac Type Severity Reaction Status Date / Time No Known Allergies Allergy Verified 06/15/21 12:12 Family History (Updated 08/11/21 @ 04:[address] Martha Montenegro MD) Father Diabetes Mother Depression Grandmother Breast cancer Surgical History History of adenoidectomy Hx of tonsillectomy Social History (Updated 08/11/21 @ 04:[address] Martha Montenegro MD) household members: significant other Smoking Status: Current every day smoker tobacco type: e-cigarettes alcohol intake: never substance use type: marijuana History 1 Elective abortions Hx Para 0 Spontaneous abortions Hx # Term Pregnancies Ectopic pregnancies Hx # Pregnancies Multiple births # of living children NST FHR Rate Baby A Baseline: 120 Variability:: Moderate Accelerations:: 15 x 15 Decelerations:: None NST Reactive:: Yes FHR Category:: Category I Uterine Activity:: 2/10 Vital Signs Vital Signs Vital Signs: 08/11/21 01:08 08/11/21 01:08 08/11/21 01:15 Temperature 98.0 F Temperature Source Temporal Pulse Rate Blood Pressure 111/58 L BP Systolic 111 BP Diastolic 58 Pulse Ox 08/11/21 01:15 08/11/21 01:14 08/11/21 02:38 Temperature Temperature Source Pulse Rate 73 73 Blood Pressure BP Systolic BP Diastolic Pulse Ox 96 08/11/21 02:38 08/11/21 02:43 08/11/21 02:43 Temperature Temperature Source Pulse Rate 98 Blood Pressure BP Systolic BP Diastolic Pulse Ox 99 100 08/11/21 02:44 08/11/21 02:44 08/11/21 02:48 Temperature Temperature Source Pulse Rate 93 Blood Pressure 121/92 H 125/72 H BP Systolic 121 125 BP Diastolic 92 72 Pulse Ox 08/11/21 02:48 08/11/21 02:48 08/11/21 02:48 Temperature Temperature Source Pulse Rate 71 76 Blood Pressure BP Systolic BP Diastolic Pulse Ox 97 08/11/21 02:53 08/11/21 02:53 08/11/21 02:56 Temperature Temperature Source Pulse Rate 68 66 Blood Pressure 111/58 L BP Systolic 111 BP Diastolic 58 Pulse Ox 08/11/21 02:56 08/11/21 02:58 08/11/21 02:58 Temperature Temperature Source Pulse Rate 57 L Blood Pressure 118/72 BP Systolic 118 BP Diastolic 72 Pulse Ox 98 08/11/21 03:01 08/11/21 03:01 08/11/21 03:03 Temperature Temperature Source Pulse Rate 69 Blood Pressure 110/66 BP Systolic 110 BP Diastolic 66 Pulse Ox 98 08/11/21 03:03 08/11/21 03:06 08/11/21 03:06 Temperature Temperature Source Pulse Rate 65 59 L Blood Pressure BP Systolic BP Diastolic Pulse Ox 99 08/11/21 03:09 08/11/21 03:09 08/11/21 03:11 Temperature Temperature Source Pulse Rate 71 68 Blood Pressure 117/69 BP Systolic 117 BP Diastolic 69 Pulse Ox 08/11/21 03:11 08/11/21 03:13 08/11/21 03:13 Temperature Temperature Source Pulse Rate 67 Blood Pressure 108/65 BP Systolic 108 BP Diastolic 65 Pulse Ox 99 08/11/21 03:16 08/11/21 03:16 08/11/21 03:18 Temperature Temperature Source Pulse Rate 71 Blood Pressure 136/64 H BP Systolic 136 BP Diastolic 64 Pulse Ox 100 08/11/21 03:18 08/11/21 04:15 08/11/21 04:15 Temperature Temperature Source Pulse Rate 62 65 Blood Pressure 112/74 BP Systolic 112 BP Diastolic 74 Pulse Ox Weight Weight: 94.438 kg Body Mass Index (BMI) 34.6 Physical Exam Const alert, oriented x3 and no apparent distress HEENT normocephalic Resp normal respiratory effort, normal air movement and clear to auscultation bilaterally Cardio regular rate and regular rhythm GI normal to inspection, nondistended, normoactive bowel sounds, soft to palpation, non-tender and non-distended Inspection: gravid Narrative: SVE 3/60/-3 per RN exam Labs Labs Labs: Blood Type A NEGATIVE Antibody Screen NEGATIVE Hct 35.8 % (37-47) L Hgb 13.1 g/dL (12.0-15.0) Syphilis Total Ab Pending HBsAg neg, HCV Ab neg, RPR nr, Rubella immune, HIV nr, Assessment & Plan (1) 40 weeks gestation of : PLAN: SVE unchanged Pt comfortable with epidural Recommend pitocin for augmentation - risks, benefits, indications reviewed. Will start Cat I FHR
[2021-08-11] MEDS: Oxytocin 30 units/NS 500 ml 30 UNITS/500 ML IV.SOLN IV (05:17)
[2021-08-11] MEDS: Lactated Ringers 1,000 ML 200 ML IV ×3 (07:57→17:39)
--- NOTE | 2021-08-11 13:06 | PN.OBGYN_ITS ---
Subjective Subjective Patient with some decreased pain with epidural but still feeling contractions Objective Data Objective Data Vital Signs: Vital Signs Temp Pulse BP Pulse Ox 97.9 F 66 113/59 L 98 08/11/21 11:36 08/11/21 11:36 08/11/21 11:36 08/11/21 11:36 Weight: 208 lb 3.2 oz Body Mass Index (BMI) 34.6 Intake & Output: Intake and Output for Last 24 Hours 08/09/21 08/10/21 08/11/21 23:59 23:59 23:59 Intake Total 2489.90 / 2489.90 Output Total 500 / 500 Balance / Lab / Micro Data Result Diagrams: 08/11/21 01:45 Labs: Laboratory Results - last 24 hr 08/11/21 01:45: WBC 11.6 H, RBC 4.18 L, Hgb 13.1, Hct 35.8 L, MCV 85.6, MCH 31.3, MCHC 36.6 H, RDW Std Deviation 38.8, RDW Coeff of Connor 12.5, Plt Count 273, MPV 12.7 H, Immature Gran % (Auto) 0.500, Neut % (Auto) 67.6, Lymph % (Auto) 24.3, [place] % (Auto) 6.1, Eos % (Auto) 1.2, Baso % (Auto) 0.3, Absolute Neuts (auto) 7.8 H, Absolute Lymphs (auto) 2.81, Nucleated RBC % 0 08/11/21 01:45: Blood Type A NEGATIVE, Antibody Screen NEGATIVE 08/11/21 01:45: Syphilis Total Ab Cancelled, Hepatitis C Antibody Cancelled 08/11/21 02:00: Urine Opiates Screen NEGATIVE, Urine Methadone Screen NEGATIVE, Ur Barbiturates Screen NEGATIVE, Ur Phencyclidine Scrn NEGATIVE, Ur Amphetamines Screen NEGATIVE, MDMA (Ecstasy) Screen NEGATIVE, U Benzodiazepines Scrn NEGATIVE, Urine Cocaine Screen NEGATIVE, U Cannabinoids Screen POSITIVE H, Ur Drug Screen Comment Micro: Microbiology 08/11/21 01:50 Nasal Secretion SARS-CoV-2 Antigen (Rapid) - Final Physical Exam Const alert, oriented x3, no apparent distress, average body habitus, healthy appearing and well nourished HEENT normocephalic Eyes PERRL Neck full ROM Resp normal respiratory effort, no retractions and no use of accessory muscles GI GI Narrative: Soft, nontender, gravid Narrative: Cervical exam: /-2. AROM clear fluid Extremity normal to inspection Psych mental status grossly normal, affect normal, speech normal and activity/motor behavior normal Assessment & Plan (1) : PLAN: Patient seen and examined. AROM clear fluid. Continue current management
[2021-08-11] MEDS: Oxytocin 30 units/NS 500 ml 30 UNITS/500 ML IV.SOLN 334 UNITS IV (19:34)
--- NOTE | 2021-08-11 19:59 | EX.PCM.OBRPT ---
Vaginal Delivery Findings Description of Procedure: Normal spontaneous vaginal delivery of a viable female infant, cephalic VICKIE. Head and shoulders delivered with ease. Cord clamped and cut. Baby handed to mom. Placenta delivered via cord traction and fundal massage. First degree midline labial laceration and left labial laceration noted and repaired in typical fashion. EBL 350cc APGARS 9/9
[2021-08-11] MEDS: Methylergonovine 0.2 MG/ML Ampul IM (21:05)
[2021-08-11] MEDS: Ibuprofen 600 MG Tablet PO (21:23)
[2021-08-11] MEDS: 0.9% Saline Lock 10 ML Syringe IV (21:26)
[2021-08-12] VITALS (13 sets, daily range): BP systolic 112–132; BP diastolic 58–73; PULSE 56–90; RESP 16–18; TEMP 35.7–36.7; O2SAT 96–99
--- NOTE | 2021-08-12 09:10 | PCM.PN.OB ---
Subjective Subjective Patient without complaints. Breast-feeding going well. Wants to go home today. Objective Data Objective Data Vital Signs: Vital Signs Temp Pulse Resp BP Pulse Ox O2 Del Method 97.8 F 56 L 16 132/62 H 96 Room Air 08/12/21 04:25 08/12/21 09:09 08/12/21 04:25 08/12/21 09:09 08/12/21 04:26 08/12/21 04:25 Oxygen Delivery Method Room Air Weight: 208 lb 3.2 oz Body Mass Index (BMI) 34.6 Intake & Output: Intake and Output for Last 24 Hours 08/10/21 08/11/21 08/12/21 23:59 23:59 23:59 Intake Total 4274.62 / 4274.62 1000 / 1000 Output Total 2200 / 2200 1200 / 1200 Balance 2074.62 / 2074.62 -200 / -200 Lab / Micro Data Result Diagrams: 08/11/21 01:45 Labs: Laboratory Results - last 24 hr 08/12/21 04:45: Screen NEGATIVE, Baby's Blood Type O POSITIVE, Baby's YAN NEGATIVE Micro: Microbiology 08/11/21 01:50 Nasal Secretion SARS-CoV-2 Antigen (Rapid) - Final Assessment & Plan (1) Spontaneous vaginal delivery: PLAN: Doing well day #1 status post routine spontaneous vaginal delivery. Will discharge to home with routine instructions.
--- NOTE | 2021-08-12 09:12 | DCINST_ITS ---
Discharge Instructions Diet Discharge Diet: No restrictions Activity Discharge Activity: May Drive (In 1 to 2 days if not taking narcotic pain medication), May Shower and May Take a Tub Bath May resume sexual activity in: 4-6 weeks Additional Activity Instructions:: Nothing in the vagina for 4-6 weeks. You may return to work/school in 6 weeks. Dressing / Incision Call your doctor if you observe: Fever of 101 or Higher, Inability to urinate, Inability to have a bowel movement and Using more than 1 pad per hour Follow Up Care When: Call [phone] to make an appointment with your doctor in 6 weeks. Test Results: Test results from this visit will be discussed in further detail at your follow- up appointment, if applicable. Discharge Plan Admission Admit Date/Time: 08/11/21 01:35 Primary Reason for Your Visit: Vaginal Delivery Attending Provider: Martha Dsouza Discharge Orders/Prescriptions Prescriptions: No Action iron 1 tablet PO/SL DAILY Disposition Disposition (needs filled in before D/C Order can be placed): Home, Self Care
[2021-08-12] MEDS: Acetaminophen 500 MG Tablet 1000 MG PO (09:18)
[2021-08-12] MEDS: Senna/Docusate Sodium 1 Tablet PO (09:18)
--- NOTE | 2021-08-12 09:55 | NURSING ---
This RN entered room at approximately 0900 and observed patient walking to bathroom. Patient had steady gait and door stayed open while using the bathroom. As patient was standing up to pull up underwear/pad, patient called out for help as she fell to the ground and landed on her right arm. Per patient, her right knee buckled and gave out, causing her to fall. She did not hit her head. Patient stated I feel like I fell because I am still waking up. Charge nurse was called and patient was assisted back to bed with 1 assist. Vitals taken and patient assessed. No c/o pain or dizziness, vitals all WNL. Quantros filled out and patient made fall risk.
[2021-08-12] MEDS: Ibuprofen 600 MG Tablet PO ×3 (10:02→23:43)
[2021-08-12] MEDS: Ondansetron 8 MG Tablet 4 MG PO ×2 (11:14→17:19)
[2021-08-13 03:20] VITALS: BP 107/59; PULSE 52; RESP 16; TEMP 36.6; O2SAT 96
--- NOTE | 2021-08-13 07:00 | NURSING ---
All charting by Carissa Lemus RN reviewed by this preceptor RN.
--- NOTE | 2021-08-13 07:12 | PCM.PN.OB ---
Subjective Subjective Patient without complaints. Breast-feeding going well. Minimal vaginal bleeding reported. Ready to go home today. Objective Data Objective Data Vital Signs: Vital Signs Temp Pulse Resp BP Pulse Ox O2 Del Method 97.9 F 52 L 16 107/59 L 96 Room Air 08/13/21 03:20 08/13/21 03:20 08/13/21 03:20 08/13/21 03:20 08/13/21 03:20 08/13/21 03:20 Oxygen Delivery Method Room Air Weight: 208 lb 3.2 oz Body Mass Index (BMI) 34.6 Intake & Output: Intake and Output for Last 24 Hours 08/11/21 08/12/21 08/13/21 23:59 23:59 23:59 Intake Total 4274.62 / 4274.62 1000 / 1000 Output Total 2200 / 2200 1200 / 1200 Balance 2074.62 / 2074.62 -200 / -200 Lab / Micro Data Result Diagrams: 08/11/21 01:45 Micro: Microbiology 08/11/21 01:50 Nasal Secretion SARS-CoV-2 Antigen (Rapid) - Final Assessment & Plan (1) Spontaneous vaginal delivery: PLAN: Doing well day #2 status post routine spontaneous vaginal delivery. Will discharge to home with routine instructions.
[2021-08-13] MEDS: Ibuprofen 600 MG Tablet PO (07:27)
[2021-08-13 07:59] VITALS: BP 139/80; BP 149/84; PULSE 75; RESP 16; TEMP 37; O2SAT 99
[2021-08-13 08:00] VITALS: BP 139/80; PULSE 72
[2021-08-13 08:02] VITALS: BP 152/72; PULSE 62
[2021-08-13 08:23] VITALS: BP 117/59
[2021-08-13 08:24] VITALS: BP 117/59; PULSE 80
--- NOTE | 2021-08-18 12:54 | NURSING ---
Follow up phone clal completed. Pt doing well and bleeding has decreased since delivery. Switched to formula. No other questions or concerns at this time
== END 2021-08-13 10:35 | disposition home or self-care (01) | DRG 807 ==
LOC: WPOUT 01:38 → WP 01:38
PROVIDERS: Admitting Provider Obstetrics & Gynecology; Visit Provider Obstetrics & Gynecology
DX: O48.0 Post-term pregnancy (principal); O70.0 First degree perineal laceration during delivery; O99.334 Smoking (tobacco) complicating childbirth; F17.290 Nicotine dependence, other tobacco product, uncomplicated; J45.909 Unspecified asthma, uncomplicated; Z3A.40 40 weeks gestation of pregnancy; Z37.0 Single live birth
CPT/HCPCS: 59025; 59050; 80307; 85025; 85461; 86780; 86803; 86850; 86900; 86901; 87426; 90384; 99218; J7120; A4216; G0378; J2405; J2790; J3490

== ENCOUNTER 2021-08-23 05:10 | Emergency (ER) | payer OTHER, SELFPAY ==
[2021-08-23 05:10] VITALS: BP 150/83; PULSE 80; RESP 18; TEMP 36.4; O2SAT 99; BMI 32.0
[2021-08-23 05:43] LABS: Mucous, Urine 0 SEEN /hpf (<or=2+)
[2021-08-23 05:45] LABS: Absolute Lymphocyte Count 3.17 X10^3/uL (0.83-4.51); Absolute Neutrophil Count 5.7 X10^3/uL (2.0-7.7); Basophil# 0.05 X10^3/uL; Basophil% 0.5 % (0-1); Eosinophil# 0.23 X10^3/uL; Eosinophils% 2.4 % (0-5); Hematocrit 30.7 % (37-47); Hemoglobin 10.4 g/dL (12.0-15.0); Lymphocyte # 3.17 X10^3/ul (0.83-4.51); Lymphocyte % 32.6 % (19-41); Mean Corp Hgb Conc 33.9 g/dL (32-36); Mean Corpuscular Hgb 29.7 pg (27.0-32.0); Mean Corpuscular Volume 87.7 fL (81-99); Mean Platelet Vol. 10.2 fl (6.2-12.0); Monocyte# 0.55 X10^3/uL; Monocyte% 5.7 % (0-10); NRBC Flagged by Analyzer 0 % (0-5); Neutrophil # 5.69 X10^3/uL (2.7-7.7); Neutrophil % 58.6 % (47-70); Platelet Count 352 K/mm3 (150-450); RBC Distribution Width CV 12.2 % (11.6-14.6); RBC Distribution Width SD 38.8 fl (35.1-43.9); White Blood Count 9.7 K/mm3 (4.4-11.0)
[2021-08-23 05:46] LABS: Color, Urine Yellow (Yellow); Glucose, Dipstick Normal (Normal); Ketone-Dipstick Negative (Negative); Leukocyte Esterase-Dipstick 500 /ul (Negative); Nitrite-Dipstick Negative (Negative); Occult Blood-Urine 250 /ul (Negative); Protein-Dipstick 30 mg/dl (Negative); Specific Gravity, Urine 1.015 (1.002-1.030); Urine Bilirubin Dipstick Negative (Negative); Urine Clarity Sl. Cloudy (Clear); Urine Urobilinogen Normal (Normal); Urine pH 6.5 (5.0 - 8.0)
[2021-08-23] MEDS: Ondansetron 4 MG/2 ML Vial IV (05:53)
[2021-08-23] MEDS: Ketorolac 15 MG/ML Vial IV (05:53)
--- NOTE | 2021-08-23 06:03 | CT_ITS ---
STUDY: CT ABDOMEN AND PELVIS WITHOUT CONTRAST REASON FOR EXAM: Female, 20 years old. Right flank pain, stone protocol RADIATION DOSAGE (If Supplied By Facility): CTDIvol = ( 10.57 ) mGy, DLP = ( 586.49 ) mGycm TECHNIQUE: Transaxial images were obtained from the dome of the diaphragm to the symphysis pubis without oral contrast, and without intravenous contrast. Sagittal and coronal images were reconstructed. Individualized dose optimization techniques were used for this CT. COMPARISON: 07/09/2020 FINDINGS: The visualized lung bases are unremarkable. The visualized portions of the heart are within normal limits. Normal liver. Normal gallbladder and extrahepatic biliary system. Normal spleen. Normal pancreas. Normal bilateral adrenal glands. Normal right kidney. Normal left kidney. Normal visualized stomach. Normal small intestine. Normal colon. The appendix is visualized and appears normal. Normal abdominal aorta. Normal inferior vena cava. Normal retroperitoneum. Normal urinary bladder. The uterus is enlarged. Normal abdominal wall. Normal thoracolumbar vertebral alignment. CT/Abdomen/Pelvis without Cont IMPRESSION: Enlarged uterus may represent . No finding of urinary calculus. No acute abnormal finding the abdomen or pelvis. Electronically Signed: Anil Davis MD at 6:40 EDT ,
[2021-08-23 06:04] LABS: Anion Gap 7 (5-15); BUN 7 mg/dL (7-18); BUN/Creat Ratio 14.3 RATIO (10-20); Calcium,Total 8.8 mg/dL (8.5-10.1); Chloride 107 mmol/L (98-107); Creatinine, Serum 0.49 mg/dL (0.55-1.02); EST Glomerular Filtration Rate 171 mL/min (>60); Est Glom Filt Rate - Afr Amer 207 mL/min (>60); Glucose 93 mg/dL (74-106); Potassium 3.4 mmol/L (3.5-5.1); Sodium Level 140 mmol/L (136-145)
[2021-08-23 06:04] LABS: Squamous Epithelial Cells - UA 5-10 SEEN /hpf (5-10); White Blood Cells 50-100 SEEN /hpf (0-5)
[2021-08-23 06:05] LABS: Bacteria 2+ /hpf (None Seen); Red Blood Cells-Urine 10-25 SEEN /hpf (0-5)
[2021-08-23] MEDS: 0.9% Normal Saline 1,000 ML 250 ML IV (06:14)
--- NOTE | 2021-08-23 07:01 | EX.ED.DYSGE1 ---
HPI History of Present Illness Chief Complaint: Flank Pain Informant: patient Narrative Narrative: Patient is a 20-year-old female is 2 weeks presenting with right-sided back pain. Started around 10 PM tonight. It woke her up from sleep. It is sharp. Patient's pain has been constant with waxing and waning intensity. She is never pain like this before. Is worse with movement. Is not changed by any deep breathing or inspiration. Patient is not breast-feeding. She still having some mild vaginal bleeding associated with her recent delivery. Denies any urinary symptoms. Denies any history of kidney stones. Denies any history of any abdominal surgeries. No other complaints at this time. [facility] Medical History 40 weeks gestation of Anxiety Asthma Depression Spontaneous vaginal delivery Home Medications iron 1 tablet PO/SL DAILY Check with primary doctor 08/11/21 [History Last Taken Unknown] cephalexin 500 mg capsule 500 mg PO TID #21 caps 08/23/21 [Rx Last Taken Unknown] ibuprofen 600 mg tablet 600 mg PO Q6H PRN pain #20 tabs 08/23/21 [Rx Last Taken Unknown] ondansetron 4 mg disintegrating tablet 4 mg PO Q6H PRN nausea and vomiting #14 tabs 08/23/21 [Rx Last Taken Unknown] Allergy/AdvReac Type Severity Reaction Status Date / Time No Known Allergies Allergy Verified 06/15/21 12:12 Family History Father Diabetes Mother Depression Grandmother Breast cancer Surgical History History of adenoidectomy Hx of tonsillectomy Social History household members: significant other Smoking Status: Current every day smoker tobacco type: e-cigarettes alcohol intake: never substance use type: marijuana ROS ROS ED Constitutional Constitutional ED: Denies chills or fever(s) Eyes Eyes: Denies change in vision ENT ENT ED: Denies rhinorrhea or sore throat Cardiovascular Cardiovascular: Denies chest pain Respiratory/Chest Respiratory/Chest: Denies cough Gastrointestinal Gastrointestinal: Reports nausea and vomiting; Denies abdominal pain or diarrhea Genitourinary Genitourinary ED: Denies dysuria or hematuria Musculoskeletal Musculoskeletal: Reports back pain; Denies arthralgias Integumentary Denies rash Neurologic Neurologic: Denies headache(s) or weakness Psychiatric Psychiatric: Denies anxiety EXAM Physical Exam Const Vital Signs: 08/23/21 05:10 08/23/21 07:10 Temperature 97.6 F L Temperature Source Temporal Pulse Rate 80 72 Respiratory Rate 18 18 Blood Pressure 150/83 H 124/76 H Blood Pressure Mean 105 Pulse Ox 99 98 Oxygen Delivery Method Room Air Positive well nourished and well developed General Appearance ED: well developed and NAD HEENT Reports moist mucous membranes Eyes PERRL and EOMs intact bilaterally Neck supple Chest Wall inspection of chest normal Resp normal respiratory effort and clear to auscultation bilaterally Cardio regular rate, regular rhythm and no murmurs GI normal to inspection, nondistended, normoactive bowel sounds and non-tender Back/Spine no CVA tenderness Thoracic Spine / Upper Back: paraspinal muscle tenderness right; Negative for thoracic spinal tenderness Lumbar Spine / Lower Back: Negative for lumbar spinal tenderness Extremity normal to inspection General Extremety ED: Negative for edema or tenderness General Extremity: Negative for edema Neuro oriented x3 Motor Exam: Negative for general weakness Psych mental status grossly normal Skin no rashes or lesions noted and no wounds MDM MDM MDM Narrative Medical decision making narrative: Patient is evaluated for right-sided back pain. Differential includes spasms, renal colic or pyelonephritis. She is not have any fever or any other infectious symptoms. Patient is given IV fluids, Zofran and Toradol with improvement of symptoms. CBC shows a mild anemia of 10.4 which is consistent with her recent status. BMP is large unremarkable with normal kidney function. Urinalysis does show 500 leukoesterase, 500-100 white blood cells and 2+ bacteria. There is some mild contamination with 5-10 squamous epithelial cells. Patient denies any urinary symptoms. I am not sure if these changes are inflammatory associate with her recent delivery or associated with pyelonephritis given that she also has this right-sided CVA pain. CT does not show any acute process including no obstructing kidney stone. Will cover with antibiotics. It is possible that this could also be muscle spasm. Will send off for culture. Patient given first dose of Keflex in the emergency room. Is counseled on return precautions. She verbalizes agreement understand this plan. Patient's initial blood pressure was elevated 150/83 which is a high concern for status. Is rechecked at discharge and has normalized to 124/76. Lab Data Attestation: I reviewed the patient's lab results. Labs: Laboratory Results - last 24 hr 08/23/21 08/23/21 08/23/21 05:19 05:19 05:25 WBC 9.7 RBC 3.50 L Hgb 10.4 L Hct 30.7 L MCV 87.7 MCH 29.7 MCHC 33.9 RDW Std Deviation 38.8 RDW Coeff of Connor 12.2 Plt Count 352 MPV 10.2 Immature Gran % (Auto) 0.200 Neut % (Auto) 58.6 Lymph % (Auto) 32.6 Pike % (Auto) 5.7 Eos % (Auto) 2.4 Baso % (Auto) 0.5 Absolute Neuts (auto) 5.7 Absolute Lymphs (auto) 3.17 Nucleated RBC % 0 Sodium 140 Potassium 3.4 L Chloride 107 Carbon Dioxide 26.0 Anion Gap 7 BUN 7 Creatinine 0.49 L Estim Creat Clear Calc 164.80 Est GFR (MDRD) Af Amer 207 Est GFR (MDRD) Non-Af 171 BUN/Creatinine Ratio 14.3 Glucose 93 Calcium 8.8 Urine Color Yellow Urine Clarity Sl. Cloudy Urine pH 6.5 Ur Specific [place]field 1.015 Urine Protein 30 H Urine Glucose (UA) Normal Urine Ketones Negative Urine Occult Blood 250 H Urine Nitrite Negative Urine Bilirubin Negative Urine Urobilinogen Normal Ur Leukocyte Esterase 500 H Urine RBC 10-25 SEEN Urine WBC 50-100 SEEN Ur Squamous Epith Cells 5-10 SEEN Urine Bacteria 2+ Urine Mucus 0 SEEN Radiography Diagnostic Testing: Clinical Impression(s) from Imaging Studies Abdomen/Pelvis CT 08/23/21 06:03 IMPRESSION: Enlarged uterus may represent . No finding of urinary calculus. No acute abnormal finding the abdomen or pelvis. Electronically Signed: Anil Davis MD at 6:40 EDT , Discharge Plan Triage Chief Complaint: Flank Pain ED Provider: Clarissa Marina Dx/Rx/DC Orders Clinical Impression: Acute right-sided back pain, UTI (urinary tract infection) Instructions: ED Back Pain (Acute or Chronic), ED CYSTITIS Female Adult Prescriptions: New ondansetron 4 mg tablet,disintegrating 4 mg PO Q6H PRN (Reason: nausea and vomiting) Qty: 14 0RF ibuprofen 600 mg tablet 600 mg PO Q6H PRN (Reason: pain) Qty: 20 0RF cephalexin 500 mg capsule 500 mg PO TID Qty: 21 0RF No Action iron 1 tablet PO/SL DAILY Primary Care Provider: Care Physician,No Primary Referrals: Care Physician,No Primary [Primary Care Provider] - Activity Restrictions/Additional Instructions: 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 Your urine was concerning for infection and was sent for culture. There is no kidney stone on your CT today. Disposition Disposition: Home, Self Care Discharge Date/Time: 08/23/21 07:12
[2021-08-23] MEDS: Cephalexin 250 MG Capsule 500 MG PO (07:05)
[2021-08-23 07:10] VITALS: BP 124/76; PULSE 72; RESP 18; O2SAT 98
== END 2021-08-23 07:12 | disposition home or self-care (01) ==
PROVIDERS: Emergency Provider Emergency Medicine; Visit Provider Emergency Medicine
DX: O86.19 Other infection of genital tract following delivery (principal); N39.0 Urinary tract infection, site not specified; J45.909 Unspecified asthma, uncomplicated; F17.200 Nicotine dependence, unspecified, uncomplicated
CPT/HCPCS: 74176; 80048; 81001; 85025; 87086; 87088; 96361; 96374; 96375; 99283; J7030; A4216; J2405

== ENCOUNTER 2021-08-31 15:04 | Observation (INO) | payer OTHER, MEDICAID, SELFPAY ==
[2021-08-31] VITALS (13 sets, daily range): BP systolic 103–147; BP diastolic 63–94; PULSE 63–89; RESP 16–18; TEMP 35.9–37.1; O2SAT 92–100; BMI 30.4
--- NOTE | 2021-08-31 15:19 | US_ITS ---
HISTORY: bleeding, x 3 weeks, n/v, cold sweats. TECHNIQUE: Transabdominal and transvaginal pelvic ultrasound was performed with house scale, spectral Doppler, and color Doppler evaluation. 83 images. COMPARISON: CT 08/23/2021. FINDINGS: UTERUS: 11.4 x 6.2 x 6.6 cm. ENDOMETRIAL THICKNESS: 3.5 cm in thickness. 3.6 x 6.8 cm heterogeneous echogenic material in the endometrial cavity with internal vascular flow and small cystic and fluid containing regions. RIGHT OVARY: 2.5 x 3.1 x 2.2 cm. Vascular flow demonstrated. No adnexal masses LEFT OVARY: 1.9 x 3 x 2.1 cm. Vascular flow demonstrated. No adnexal masses FREE FLUID: None. US/Pelvic (Non ) IMPRESSION: Echogenic material with internal vascularity distending the endometrial cavity, concerning for retained products of conception. Electronically Signed: Kathy Leonardo MD at 16:30 EDT ,
--- NOTE | 2021-08-31 15:20 | EDS_ITS ---
HPI HPI - Female History of Present Illness Chief Complaint: Vag Bleeding Informant: patient Narrative Narrative: 20-year-old female G1, P1 presenting 20 days after spontaneous vaginal delivery. Patient states that today she has developed significant pelvic cramping and for the past hour has had heavy bleeding. She states that she has used 3 pads in an hour. She denies any fevers. She notes that the pain is so severe that it is making her vomit. She has not talked with her doctor. 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 Patient is not breast- feeding. [facility] Medical History 40 weeks gestation of Anxiety Asthma Depression Spontaneous vaginal delivery Home Medications iron 1 tablet PO/SL DAILY Check with primary doctor 08/11/21 [History Last Taken Unknown] ondansetron 4 mg disintegrating tablet 4 mg PO Q6H PRN nausea and vomiting #14 tabs 08/23/21 [Rx Last Taken Unknown] Allergy/AdvReac Type Severity Reaction Status Date / Time No Known Allergies Allergy Verified 08/31/21 15:07 Family History Father Diabetes Mother Depression Grandmother Breast cancer Surgical History History of adenoidectomy Hx of tonsillectomy Social History household members: significant other Smoking Status: Current every day smoker tobacco type: e-cigarettes alcohol intake: never substance use type: marijuana ROS ROS ED Constitutional Constitutional ED: Denies chills or weight loss Eyes Eyes: Denies change in vision or diplopia ENT ENT ED: Denies ear pain, rhinorrhea or sore throat Cardiovascular Cardiovascular: Denies chest pain, orthopnea, palpitations or racing heartbeat Respiratory/Chest Respiratory/Chest: Denies cough, dyspnea or orthopnea Gastrointestinal Gastrointestinal: Reports constipation; Denies abdominal pain, diarrhea, nausea or vomiting Genitourinary Genitourinary ED: Reports other Details: Pelvic pain and vaginal bleeding ; Denies dysuria, hematuria or urinary frequency Musculoskeletal Musculoskeletal: Denies arthralgias or myalgias Integumentary Denies abscess or rash Neurologic Neurologic: Denies headache(s) or weakness Psychiatric Psychiatric: Denies anxiety, depression, suicidal ideation or suicidal thoughts Endocrine Endocrinology: Denies polydipsia, polyphagia or polyuria Allergic/Immunologic Allergic/Immunologic ED: Denies mouth swelling, tongue swelling or urticaria EXAM Physical Exam Narrative Exam Narrative: Patient appears in pain kneeling on the bed. Const Vital Signs: 08/31/21 15:05 Temperature 96.7 F L Temperature Source Temporal Pulse Rate 86 Respiratory Rate 18 Blood Pressure 134/86 H Blood Pressure Mean 102 Pulse Ox 97 Oxygen Delivery Method Room Air Positive well nourished and well developed General Appearance ED: well developed HEENT Reports normocephalic, head/scalp atraumatic and moist mucous membranes Eyes PERRL and EOMs intact bilaterally Neck no lymphadenopathy, supple and no JVD Resp normal respiratory effort and clear to auscultation bilaterally Cardio regular rate, regular rhythm and no murmurs GI normal to inspection, nondistended, normoactive bowel sounds and non-tender Palpation: soft Back/Spine no CVA tenderness and normal ROM Extremity normal to inspection General Extremety ED: Negative for edema General Extremity: Negative for edema Neuro oriented x3 and CN's II-XII intact bilaterally Sensorium / Orientation: alert Motor Exam: strength 5/5 throughout Psych mental status grossly normal Mood & Affect: tearful; Negative for depressed Skin no rashes or lesions noted and no wounds MDM MDM MDM Narrative Medical decision making narrative: White count 10.6 with a hemoglobin of 11.2. Platelet count is 344. hCG is 41. Ultrasound of the abdomen demonstrates retained products of conception. Dr. Monica Rodriguez was contacted. She will be in to evaluate the patient. Lab Data Attestation: I reviewed the patient's lab results. Labs: Laboratory Results - last 24 hr 08/31/21 08/31/21 15:30 15:30 WBC 10.6 RBC 3.93 L Hgb 11.2 L Hct 33.5 L MCV 85.2 MCH 28.5 MCHC 33.4 RDW Std Deviation 36.7 RDW Coeff of Connor 11.9 Plt Count 344 MPV 10.7 Immature Gran % (Auto) 0.500 Neut % (Auto) 73.7 H Lymph % (Auto) 19.0 Vance % (Auto) 4.5 Eos % (Auto) 1.9 Baso % (Auto) 0.4 Absolute Neuts (auto) 7.8 H Absolute Lymphs (auto) 2.01 Nucleated RBC % 0 HCG, Quant 41 H Radiography Diagnostic Testing: Clinical Impression(s) from Imaging Studies Pelvis Ultrasound 08/31/21 15:19 IMPRESSION: Echogenic material with internal vascularity distending the endometrial cavity, concerning for retained products of conception. Electronically Signed: Kathy Leonardo MD at 16:30 EDT , Discharge Plan Dx/Rx/DC Orders Clinical Impression: Retained products of conception, Pelvic pain, Vaginal bleeding Disposition Disposition: Acute Care [facility]
[2021-08-31] MEDS: Morphine 4 MG/ML Syringe IV (15:33)
[2021-08-31] MEDS: Ondansetron 4 MG/2 ML Vial IV ×2 (15:33→20:05)
[2021-08-31 15:58] LABS: Absolute Lymphocyte Count 2.01 X10^3/uL (0.83-4.51); Absolute Neutrophil Count 7.8 X10^3/uL (2.0-7.7); Basophil# 0.04 X10^3/uL; Basophil% 0.4 % (0-1); Eosinophils% 1.9 % (0-5); Hematocrit 33.5 % (37-47); Hemoglobin 11.2 g/dL (12.0-15.0); Lymphocyte # 2.01 X10^3/ul (0.83-4.51); Mean Corp Hgb Conc 33.4 g/dL (32-36); Mean Corpuscular Hgb 28.5 pg (27.0-32.0); Mean Corpuscular Volume 85.2 fL (81-99); Mean Platelet Vol. 10.7 fl (6.2-12.0); Monocyte# 0.48 X10^3/uL; Monocyte% 4.5 % (0-10); NRBC Flagged by Analyzer 0 % (0-5); Neutrophil % 73.7 % (47-70); Platelet Count 344 K/mm3 (150-450); RBC Distribution Width CV 11.9 % (11.6-14.6); RBC Distribution Width SD 36.7 fl (35.1-43.9); Red Blood Count 3.93 M/mm3 (4.2-5.4); White Blood Count 10.6 K/mm3 (4.4-11.0)
[2021-08-31 16:23] LABS: hCG Titer Quant., Serum 41 mIU/mL (1-3)
--- NOTE | 2021-08-31 17:11 | PCM.HP.BLA ---
History and Physical Date of Admission: 08/31/21 HPI: 20-year-old female day 20 status post spontaneous vaginal delivery on 08/11/2021 presenting with cramping and bleeding. Patient states she has had cramping all weekend, but had increased bleeding today. States she soaked through 3 pads in 1 hour. Unsure how bleeding is at this time. Denies dizziness, shortness of breath, chest pain, headaches or vision changes, diarrhea constipation, fevers or chills. 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 Tonsillectomy Allergies: No known drug allergy Social history: Reports vaping and marijuana use, denies alcohol use. Family history: Denies history of VTE or anesthesia complications Review of system: Negative otherwise stated above Physical exam: Vitals blood pressure 134/86, pulse 86, respirations 18, temp 96.7 ?F, O2 saturation 97% on room air General: No acute distress, resting in bed. HEENT: Normocephalic/atraumatic Cardiac: Regular rate and rhythm Respiratory: Clear to auscultation bilaterally Abdomen: Soft, nontender : Moderate amount of blood on pad Extremities: No edema Neurologic: Cranial nerves II through XII grossly intact, no focal deficits Musculoskeletal: Strength 5 out of 5 throughout all extremities Labs: WBC 10.6, hemoglobin/hematocrit 11.2/33.5, platelets 344, quant hCG 41 Ultrasound: Endometrial thickness 3.5 cm, 3.6 x 6.8 cm heterogenous echogenic material in endometrial cavity with blood flow Assessment & Plan Assessment/Plan (1) Retained products of conception: PLAN: 20-year-old day 20 with concern for retained products of conception. ? Working diagnosis of retained products of conception based on ultrasound findings today. Patient symptomatic with cramping and increase in bleeding today. ? No evidence of infection. No fundal tenderness, no leukocytosis, afebrile. ?Hemoglobin and hematocrit stable, vital signs stable. ? We will plan for suction dilation and curettage. All risk, benefits, alternatives were discussed with the patient. Risks include but are not limited to: Risk of bleeding to the point of transfusion, infection, injury to surrounding tissue including bowel/bladder/uterine perforation, VTE, ICU mission. Patient aware and consented. Consents signed. ? Plan for doxycycline 200 mg IV preop ? Plan for discharge home this evening if patient is feeling well. We will have her follow-up this week in office.
--- NOTE | 2021-08-31 17:45 | ED.RN ---
Report given to OR nurse.
--- NOTE | 2021-08-31 17:56 | OP.PCM_ITS ---
Report of Operation Date of Procedure: 08/31/21 Pre-Operative Diagnosis: Possible retained products of conception, b leeding Post-Operative Diagnosis: Possible retained products of conception, bleeding Surgery/Procedure Performed:: Suction dilation and curettage Description of Surgical Findings:: Normal external genitalia. Cervix dilated to 1 cm. Cervix in tact. 2-4 cm portions of placental tissue. Ultrasound findings to be dictated below. Vaginal stitches intact, well-healing. Type of Anesthesia: MAC Specimen's removed: endometrial curetting, products of conception Estimated Blood Loss (mL): 1000 cc Description of Procedure: Indication/risk/benefits: 20-year-old status post spontaneous vaginal delivery on 08/11/2021 presenting with bleeding and cramping. Found to have possible retained products of conception on ultrasound. Plan for dilation and curettage. All risk, benefits, alternatives discussed with the patient. Risk include but are not limited to: Risk of bleeding to the point of transfusion, infection, injury to surrounding tissue including bowel/bladder/uterine pe rforation, VTE, ICU admission. Patient aware and consented. Procedure: Patient taken to the operating room and MAC anesthesia induced. Patient placed in the dorsal lithotomy position and prepped and draped in the usual sterile fashion. Bladder drained 250 cc clear urine. Weighted speculum placed in the posterior vagina and Taveras retractor used to visualize the cervix. Anterior lip of the cervix grasped with Allis clamp. Cervix noted to be dilated 1 cm. Suction curette and tubing opened. Curettage completed using suction curette with evacuation of blood and products of conception. Patient noted to have continued bleeding. Sharp curettage completed in a 360 degree manner, with evacuation of products of conception. Patient continued to have bleeding. Suction curettage completed. Uterine bleeding persisted. Patient given Methergine 0.2 mg at 1822. Called for ultrasound from labor and delivery. Ultrasound in room. Noting thickened endometrial lining at that time. Suction curettage completed again. Bleeding continued. Bladder full on ultrasound, bladder drained approximately 150 cc clear urine. Blood flow noted on ultrasound color doppler. Bleeding persisted. Suction curettage completed again with small amounts of products of conception and blood evacuated. Called for Bakri uterine balloon. Hemabate 0.25 mg IM given at 1841. Some tissue noted at the cervical os. Tissue grasped with ring forceps and removed from uterus. Further pieces of tissue grasped and removed from the uterus using ring forceps. Bedside ultrasound completed again. Endometrial lining thin, no blood flow. Although endometrial lining was thin on ultrasound, bleeding persisted. Suction and sharp curettage completed. Patient continued to have bleeding, though it was decreased from previously. Decision to place Bakri balloon was made. Intrauterine balloon placed to uterine fundus. This was visualized on ultrasound during placement, confirming intrauterine location of balloon. Balloon then inflated with 120cc fluid. Again placement confirmed on ultrasound noting inflated balloon within the uterine cavity. No bleeding through the cervix was noted on vaginal exam. This was monitored for several minutes. Minimal amount of blood on return in the bag attached to the Bakri device. Araiza catheter placed, drained additional 150 cc of urine. As there is no further bleeding from uterus or cervix at that time, procedure was ended. At the end of the procedure all needle, lap, sponge counts were correct. Stat H/H collected while in the OR. UOP: total 550cc Patient to be admitted to surgical floor. Plan for maintenance of intrauterine balloon for at least 24 hours. Will then slowly remove fluid and monitor for bleeding. Patient to receive Methergine every 4 hours overnight. Ancef 2 g every [address] Complications Hemorrhage
--- NOTE | 2021-08-31 18:07 | DCINST_ITS ---
Discharge Instructions Diet Discharge Diet: No restrictions Activity Discharge Activity: Return to Normal Activity and May Shower May resume sexual activity in: 2 weeks Weight Bearing Status: Weight bearing as tolerated Lifting Restrictions: None Dressing / Incision Call your doctor if you observe: Fever of 101 or Higher, Change in Color, Inability to urinate, Using more than 1 pad per hour, Shortness of breath, Dizziness, Swelling in the ankles, Chest pain and Calf discomfort Follow Up Care Please Follow Up With: Monica Rodriguez DO When: This week for post operative visit Test Results: Test results from this visit will be discussed in further detail at your follow- up appointment, if applicable. Discharge Plan Admission Admit Date/Time: 08/31/21 19:17 Primary Reason for Your Visit: Dilation and curettage (D&C) Attending Provider: Monica Rodriguez Primary Care Provider: Wendy Rojas Primary Instructions Additional Instructions / Restrictions: Did you know that you can get before your first period ? Use condoms to prevent and sexually transmitted infections. Talk with your doctor about control options if you want to avoid during this time period. Discharge Orders/Prescriptions Prescriptions: New ferrous sulfate 325 mg (65 mg iron) tablet 325 mg PO BID Qty: 60 1RF Continued ondansetron 4 mg tablet,disintegrating 4 mg PO Q6H PRN (Reason: nausea and vomiting) Qty: 14 0RF Discontinued iron 1 tablet PO/SL DAILY Referrals / Follow Up: Care PhysicianWendy Primary [Primary Care Provider] - Disposition Disposition (needs filled in before D/C Order can be placed): Home, Self Care
--- NOTE | 2021-08-31 18:15 | POC_PTH ---
PATIENT: CHANA DE LA O LOC: MS3 U#:[id number] AGE/SX: 20/F ROOM: [facility] [place] RE08/31/[address]: Dr. Monica Rodriguez DO : 2000 BED: 1 DIS: 09/02/2021 SPEC #: [id number] RECD: 08/31/21 19:41 STATUS: JIMMIE TESS #: [id number] BEATRIZ: 08/31/21 18:[address]: Monica Rodriguez DEPT: SURGICAL PATHOLOGY RECD BY: Keiko Hoffmann ENTERED: 09/01/21 06:40 SP TYPE: PROD CONC OTHR DR: No Primary Care Phys Tissues: Product of conception, NOS Procedures: Surgery Specimen Level IV HEADER OPERATION: Suction dilation and curettage PRE-OP DIAGNOSIS: Retained products of conception TISSUE SUBMITTED: Retained products of conception MICROSCOPIC DIAGNOSIS Retained products of conception, dilation and curettage: Fragments of mature (third trimester) placental tissue with 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 Inflamed benign endometrial tissue. RON:merary 09/02/2021 MICROSCOPIC DESCRIPTION Slides are reviewed. GROSS DESCRIPTION Received in fixative is two containers labeled with the patient's name and designated retained products of conception. The specimen consists of multiple fragments of hemorrhagic soft tissue mixed with blood clot that in aggregate measure 12 x 10 x 4 cm. tissue is not identified. A few fragments of placental tissue are also noted. Wreath Machine Operator sections are submitted in three cassettes. / RON:merary 09/01/2021 TC:5 CPT: 18188
[2021-08-31] MEDS: Methylergonovine 0.2 MG/ML Ampul IM ×2 (18:22→22:22)
[2021-08-31] MEDS: Carboprost Tromethamine 250 MCG/ML Ampul (18:41)
[2021-08-31 19:28] LABS: Hematocrit 27.2 % (37-47); Hemoglobin 9.2 g/dL (12.0-15.0)
--- NOTE | 2021-08-31 20:00 | SUR.PHASEI ---
CONTACTED DR. TIARA RBADLEY VIA TELEPHONE FOR PATIENT UPDATE. DR. BRADLEY NOTIFIED AND OKAY WITH H&H RESULTS. DR. BRADLEY TOLD THAT PATIENT IS VERY UNCOMFORTABLE WITH BALLOON PLACEMENT HAVING UNCONTROLLED PAIN AND VERY ANXIOUS. DR. BRADLEY GAVE TELEPHONE ORDER FOR 2MG IV ATIVAN AND 4MG IV ZOFRAN. ORDER READ BACK TO DR. BRADLEY AND VERIFIED.
[2021-08-31] MEDS: LORazepam 2 MG/ML Syringe IV (20:05)
[2021-08-31] MEDS: Lactated Ringers 1,000 ML 125 ML IV (21:09)
[2021-08-31] MEDS: Cefazolin 2 GM in 0.9% Normal Saline 100 ML IV (22:22)
[2021-08-31] MEDS: Acetaminophen 500 MG Tablet 1000 MG PO (22:31)
[2021-08-31] MEDS: oxyCODONE 5 MG Tablet PO (22:55)
[2021-09-01] VITALS (7 sets, daily range): BP systolic 108–127; BP diastolic 68–83; PULSE 65–94; RESP 16–18; TEMP 36.8–37.3; O2SAT 97–100
[2021-09-01] MEDS: Methylergonovine 0.2 MG/ML Ampul IM ×2 (02:43→06:24)
[2021-09-01] MEDS: Lactated Ringers 1,000 ML 125 ML IV ×3 (05:40→23:31)
[2021-09-01] MEDS: Cefazolin 2 GM in 0.9% Normal Saline 100 ML IV ×3 (05:40→21:30)
[2021-09-01] MEDS: Acetaminophen 500 MG Tablet 1000 MG PO ×3 (05:41→18:04)
[2021-09-01 05:43] LABS: Hematocrit 27.7 % (37-47); Hemoglobin 9.2 g/dL (12.0-15.0); Mean Corp Hgb Conc 33.2 g/dL (32-36); Mean Corpuscular Hgb 29.2 pg (27.0-32.0); Mean Corpuscular Volume 87.9 fL (81-99); Mean Platelet Vol. 10.3 fl (6.2-12.0); Platelet Count 336 K/mm3 (150-450); RBC Distribution Width SD 38.5 fl (35.1-43.9); Red Blood Count 3.15 M/mm3 (4.2-5.4); White Blood Count 9.8 K/mm3 (4.4-11.0)
--- NOTE | 2021-09-01 08:25 | PCM.PN.OB ---
Subjective Subjective Pain controlled. No complaints of bleeding. Little appetite. Tolerating fluids. Objective Data Objective Data Vital Signs: Vital Signs Temp Pulse Resp BP Pulse Ox O2 Del Method O2 Flow Rate 98.7 F 65 18 108/68 99 Room Air 2 09/01/21 07:58 09/01/21 07:58 09/01/21 07:58 09/01/21 07:58 09/01/21 07:58 09/01/21 07:58 08/31/21 20:48 Oxygen Flow Rate (L/min) 2 Oxygen Delivery Method Room Air Weight: 83 kg Body Mass Index (BMI) 30.4 Intake & Output: Intake and Output for Last 24 Hours 08/30/21 08/31/21 09/01/21 23:59 23:59 23:59 Intake Total 380 / 380 1710 / 1710 Output Total 700 / 700 1445 / 1445 Balance -320 / -320 265 / 265 Lab / Micro Data Attestation: I reviewed the patient's lab results. Result Diagrams: 09/01/21 05:27 Labs: Laboratory Results - last 24 hr 08/31/21 15:30: WBC 10.6, RBC 3.93 L, Hgb 11.2 L, Hct 33.5 L, MCV 85.2, MCH 28.5, MCHC 33.4, RDW Std Deviation 36.7, RDW Coeff of Connor 11.9, Plt Count 344, MPV 10.7, Immature Gran % (Auto) 0.500, Neut % (Auto) 73.7 H, Lymph % (Auto) 19.0, [place] % (Auto) 4.5, Eos % (Auto) 1.9, Baso % (Auto) 0.4, Absolute Neuts (auto) 7.8 H, Absolute Lymphs (auto) 2.01, Nucleated RBC % 0 08/31/21 15:30: HCG, Quant 41 H 08/31/21 19:19: Hgb 9.2 L, Hct 27.2 L 09/01/21 05:27: WBC 9.8, RBC 3.15 L, Hgb 9.2 L, Hct 27.7 L, MCV 87.9, MCH 29.2, MCHC 33.2, RDW Std Deviation 38.5, RDW Coeff of Connor 12.0, Plt Count 336, MPV 10.3 Radiography Diagnostic Testing: Radiology Impression Pelvis Ultrasound 08/31/21 15:19 IMPRESSION: Echogenic material with internal vascularity distending the endometrial cavity, concerning for retained products of conception. Electronically Signed: Kathy Leonardo MD at 16:30 EDT , Physical Exam Const alert, oriented x3 and no apparent distress HEENT normocephalic Eyes PERRL Resp normal respiratory effort, no retractions and no use of accessory muscles Cardio regular rate GI GI Narrative: Abdomen soft, mildly tender. Nondistended. Narrative: Minimal dried blood on pad and inner thighs. Extremity no pedal edema Psych mental status grossly normal and affect normal Assessment & Plan (1) Retained products of conception: PLAN: Postop day 1 status post elation and curettage and back replacement for retained products of conception and hemorrhage. ?Vital signs are stable. Hemoglobin/hematocrit stable today from postoperative evaluation. Bleeding minimal around Bakri, no active bleeding. ?Maintain until Bakri approximately 24 hours postoperatively. Bakri contains 120 cc fluid. If bleeding continues to be minimal/nonexistent, will plan for removal of 40 cc every 2 hours. With removal of intrauterine balloon once all fluid is removed. Demonstrated fluid removal in room to bedside nurse. ?Stop Methergine ?Continue Ancef while intrauterine balloon is present, as prophylaxis. No evidence of infection at this time. No leukocytosis, patient is afebrile. ?CBC in a.m. Diet: Advance to regular IV fluids: LR 125 cc/h DVT prophylaxis: SCDs Activity: Patient able to ambulate, up to chair Dispo: Plan for removal of intrauterine balloon this evening, if patient is stable overnight we will plan for discharge tomorrow. (2) Acute blood loss as cause of postoperative anemia:
[2021-09-01] MEDS: oxyCODONE 5 MG Tablet PO (20:22)
[2021-09-02 02:45] VITALS: BP 108/56; PULSE 79; RESP 16; TEMP 36.6; O2SAT 100
[2021-09-02] MEDS: Ondansetron ODT 4 MG Tablet PO (04:49)
[2021-09-02] MEDS: Cefazolin 2 GM in 0.9% Normal Saline 100 ML IV (05:45)
[2021-09-02] MEDS: Acetaminophen 500 MG Tablet 1000 MG PO ×2 (05:45)
[2021-09-02 06:04] LABS: Absolute Neutrophil Count 2.9 X10^3/uL (2.0-7.7); Basophil# 0.04 X10^3/uL; Basophil% 0.6 % (0-1); Eosinophil# 0.08 X10^3/uL; Eosinophils% 1.2 % (0-5); Hematocrit 20.8 % (37-47); Hemoglobin 6.7 g/dL (12.0-15.0); Lymphocyte % 47.7 % (19-41); Mean Corp Hgb Conc 32.2 g/dL (32-36); Mean Corpuscular Hgb 29.3 pg (27.0-32.0); Mean Corpuscular Volume 90.8 fL (81-99); Mean Platelet Vol. 10.8 fl (6.2-12.0); Monocyte# 0.37 X10^3/uL; Monocyte% 5.7 % (0-10); NRBC Flagged by Analyzer 0 % (0-5); Neutrophil # 2.88 X10^3/uL (2.7-7.7); Neutrophil % 44.3 % (47-70); Platelet Count 220 K/mm3 (150-450); RBC Distribution Width CV 12.5 % (11.6-14.6); RBC Distribution Width SD 40.8 fl (35.1-43.9); Red Blood Count 2.29 M/mm3 (4.2-5.4); White Blood Count 6.5 K/mm3 (4.4-11.0)
--- NOTE | 2021-09-02 08:01 | PN.OBGYN_ITS ---
Subjective Subjective Reports she feels perfectly fine this morning. No complaints. OOB, voided and had bowel movement without anemia symptoms. Expresses frustration this morning and has questions about possible blood transfusion. Request antibiotics. Objective Data Objective Data Vital Signs: Vital Signs Temp Pulse Resp BP Pulse Ox O2 Del Method O2 Flow Rate 97.8 F 79 16 108/56 L 100 Room Air 2 09/02/21 02:45 09/02/21 02:45 09/02/21 02:45 09/02/21 02:45 09/02/21 02:45 09/02/21 02:45 08/31/21 20:48 Oxygen Flow Rate (L/min) 2 Oxygen Delivery Method Room Air Weight: 83 kg Body Mass Index (BMI) 30.4 Intake & Output: Intake and Output for Last 24 Hours 08/31/21 09/01/21 09/02/21 23:59 23:59 23:59 Intake Total 380 / 380 6109.33 / 6109.33 891.25 / 891.25 Output Total 700 / 700 2545 / 2845 800 / 800 Balance -320 / -320 3564.33 / 3264.33 91.25 / 91.25 Lab / Micro Data Result Diagrams: 09/02/21 05:20 Labs: Laboratory Results - last 24 hr 09/02/21 05:20: WBC 6.5, RBC 2.29 L, Hgb 6.7 L, Hct 20.8 L, MCV 90.8, MCH 29.3, MCHC 32.2, RDW Std Deviation 40.8, RDW Coeff of Connor 12.5, Plt Count 220, MPV 10.8, Immature Gran % (Auto) 0.500, Neut % (Auto) 44.3 L, Lymph % (Auto) 47.7 H, [place] % (Auto) 5.7, Eos % (Auto) 1.2, Baso % (Auto) 0.6, Absolute Neuts (auto) 2.9, Absolute Lymphs (auto) 3.10, Nucleated RBC % 0 09/02/21 07:28: Crossmatch See Detail ROS Constitutional Constitutional: Denies fatigue, fever(s) or headache(s) Cardiovascular Cardiovascular: Denies chest pain, dyspnea, fatigue, irregular heart rhythm or rapid heart rate Respiratory/Chest Respiratory/Chest: Denies dyspnea Gastrointestinal Gastrointestinal: Denies abdominal pain Genitourinary Genitourinary: Reports other Details: denies bleeding Musculoskeletal Musculoskeletal: Denies muscle cramps Neurologic Neurologic: Denies dizziness or headache(s) Endocrine Endocrinology: Denies cold intolerance Physical Exam Const alert, oriented x3 and no apparent distress Constitutional Narrative: cussing frequently, expressing discontent Resp normal respiratory effort and normal air movement Cardio regular rate, regular rhythm, S1 normal heart sound and S2 normal heart sound Uterus Palpation: uterus fundus firm and other OB fundus nontender Extremity no calf tenderness Neuro oriented x3 Assessment & Plan (1) Retained products of conception: PLAN: Post D&C Reviewed inpatient and outpatient records with patient and mother and discussed at length. Reviewed prophylactic indication for antibiotics this admission. No evidence of infection this am or per prior documentation this hospitalization, no leukocytosis, patient nontender, afebrile and bleeding scant. No indication for antibiotics at this time. (2) Acute blood loss as cause of postoperative anemia: PLAN: Hgb 11.2-->6.7 No orthostasis, hemodynamically stable I recommended 1 U PRBC with discussion of risks, benefits, indications. Patient adamantly refuses blood transfusion throughout discussion. Eager for discharge now and requesting IV removal. Not willing to stay to consider Fe infusion. Discussed home iron supplementation. Si/sx anemia requiring further evaluation reviewed. Patient reports u nderstanding. D/C home
[2021-09-02 08:09] VITALS: BP 115/68; BP 125/71; PULSE 73; PULSE 85; RESP 16; TEMP 36.3; O2SAT 100
--- NOTE | 2021-09-02 08:13 | DCINST_ITS ---
Discharge Instructions Diet Discharge Diet: No restrictions Activity Discharge Activity: Return to Normal Activity, May Drive (in 5-7 days) and May Shower May resume sexual activity in: 2 weeks Dressing / Incision Call your doctor if you observe: Fever of 101 or Higher, Change in Color, Inability to urinate, Using more than 1 pad per hour, Shortness of breath, Dizziness, Fainting spells, Swelling in the ankles, Chest pain, Increased palpitations (irregular heartbeat), Calf discomfort and Uncontrolled pain Follow Up Care Please Follow Up With: Monica Rodriguez DO When: 2-4 weeks for postopcheck and visit Test Results: Test results from this visit will be discussed in further detail at your follow- up appointment, if applicable. Discharge Plan Admission Admit Date/Time: 08/31/21 19:17 Primary Reason for Your Visit: Dilation and curettage (D&C) Attending Provider: Monica Rodriguez Primary Care Provider: Care Physician,Wendy Primary Instructions Additional Instructions / Restrictions: Did you know that you can get before your first period ? Use condoms to prevent and sexually transmitted infections. Talk with your doctor about control options if you want to avoid during this time period. Discharge Orders/Prescriptions Prescriptions: New ferrous sulfate 325 mg (65 mg iron) tablet 325 mg PO BID Qty: 60 1RF Continued ondansetron 4 mg tablet,disintegrating 4 mg PO Q6H PRN (Reason: nausea and vomiting) Qty: 14 0RF Discontinued iron 1 tablet PO/SL DAILY Referrals / Follow Up: Care Physician,No Primary [Primary Care Provider] - Disposition Disposition (needs filled in before D/C Order can be placed): Home, Self Care
--- NOTE | 2021-09-02 08:28 | DS.PCM_ITS ---
Providers Date of Admission: 08/31/21 Date of Discharge: 09/02/21 Primary Care Physician: No Primary Care Phys Reason For Visit: DILATION AND CURETTAGE Diagnosis Discharge Diagnosis (1) Retained products of conception: Status: Acute Plan: Post D&C Reviewed inpatient and outpatient records with patient and mother and discussed at length. Reviewed prophylactic indication for antibiotics this admission. No evidence of infection this am or per prior documentation this hospitalization, no leukocytosis, patient nontender, afebrile and bleeding scant. No indication for antibiotics at this time. (2) Acute blood loss as cause of postoperative anemia: Status: Acute Code(s): D62 - Acute posthemorrhagic anemia Plan: Hgb 11.2-->6.7 No orthostasis, hemodynamically stable I recommended 1 U PRBC with discussion of risks, benefits, indications. Patient adamantly refuses blood transfusion throughout discussion. Eager for discharge now and requesting IV removal. Not willing to stay to consider Fe infusion. Discussed home iron supplementation. Si/sx anemia requiring further evaluation reviewed. Patient reports understanding. D/C home Medications at Discharge Home Medications ondansetron 4 mg disintegrating tablet 4 mg PO Q6H PRN nausea and vomiting #14 tabs 08/23/21 ferrous sulfate 325 mg (65 mg iron) tablet 325 mg PO BID #60 tabs 09/02/21 Hospital Course Operations - (Dilation and curettage) Procedures None Summary of Care Provided Hospital Course: 20year old 1 para 1001 admitted at 2 weeks from the ER with delayed hemorrhage and US findings suggesting retained products of conception. She underwent suction dilation and curettage, received uterotonics and Bakri balloon was placed. IV antibiotics were given prophylactically. The Bakri bal loon was removed on post-op day #1 with scant bleeding present. H/H trended from 11.2-->6.7. Patient was hemodynamically stable without orthostasis and refused further treatment including transfusion. She was discharged to home on postoperative day #1. Weight / BMI Weight Weight: 83 kg Body Mass Index (BMI) 30.4 ABG / Lab / Microbiology Data Result Diagrams: 09/02/21 05:20 Laboratory: Laboratory Results - last 24 hr 09/02/21 05:20: WBC 6.5, RBC 2.29 L, Hgb 6.7 L, Hct 20.8 L, MCV 90.8, MCH 29.3, MCHC 32.2, RDW Std Deviation 40.8, RDW Coeff of Connor 12.5, Plt Count 220, MPV 10.8, Immature Gran % (Auto) 0.500, Neut % (Auto) 44.3 L, Lymph % (Auto) 47.7 H, [place] % (Auto) 5.7, Eos % (Auto) 1.2, Baso % (Auto) 0.6, Absolute Neuts (auto) 2.9, Absolute Lymphs (auto) 3.10, Nucleated RBC % 0 09/02/21 07:28: Crossmatch See Detail D/C Instructions Discharge Diet: No restrictions May resume sexual activity in: 2 weeks Weight Bearing Status: Weight bearing as tolerated Call your doctor if you observe: Fever of 101 or Higher, Change in Color, Inabil ity to urinate, Using more than 1 pad per hour, Shortness of breath, Dizziness, Fainting spells, Swelling in the ankles, Chest pain, Increased palpitations (irregular heartbeat), Calf discomfort and Uncontrolled pain Please Follow Up With: Monica Rodriguez DO When: 2-4 weeks for postopcheck and visit Meaningful Use Info Meaningful Use Diagnoses (Choose all that apply): None applicable Discharge Plan Admission Admit Date/Time: 08/31/21 19:17 Primary Reason for Your Visit: Dilation and curettage (D&C) Attending Provider: Monica Rodriguez Primary Care Provider: Care Physician,Wendy Primary Instructions Additional Instructions / Restrictions: Did you know that you can get before your first period ? Use condoms to prevent and sexually transmitted infections. Talk with your doctor about control options if you want to avoid during this time period. Discharge Orders/Prescriptions Prescriptions: New ferrous sulfate 325 mg (65 mg iron) tablet 325 mg PO BID Qty: 60 1RF Continued ondansetron 4 mg tablet,disintegrating 4 mg PO Q6H PRN (Reason: nausea and vomiting) Qty: 14 0RF Discontinued iron 1 tablet PO/SL DAILY Referrals / Follow Up: Care Physician,No Primary [Primary Care Provider] - Disposition Disposition (needs filled in before D/C Order can be placed): Home, Self Care
--- NOTE | 2021-09-02 08:31 | NURSING ---
nursing enter room. mother of pt cussing and walking around room with in arms. this [facility] is killing my child. im contacting our plexiglas former mother stated no one listened to her, she knew something was wrong but no one listened. explained that her blood counts were low this morning and dr ordered 1 unit of PRBc's. visitor stated no one even salma her blood till 5am this am, how the fuck do you know her counts are low pulled up labs in computed and showed her that her blood was drawn 4 times since admit and now her counts are 6.7. at this time dr charlene bonilla walked into room, and continues to explain pt care.
== END 2021-09-02 08:33 | disposition home or self-care (01) ==
LOC: ED 16:31 → SDC 16:50 → ACINP 16:51 → SDC 19:34 → ACINP 19:34 → MS3 20:32
PROVIDERS: Admitting Provider Student in an Organized Health Care Education/Training Program; Emergency Provider Emergency Medicine; Visit Provider Student in an Organized Health Care Education/Training Program
PROC: (CPT 59160; principal; 2021-08-31 18:00)
DX: O72.2 Delayed and secondary postpartum hemorrhage (principal); O99.335 Smoking (tobacco) complicating the puerperium; F17.290 Nicotine dependence, other tobacco product, uncomplicated; O99.53 Diseases of the respiratory system complicating the puerperium; J45.909 Unspecified asthma, uncomplicated; O90.81 Anemia of the puerperium; D62 Acute posthemorrhagic anemia
CPT/HCPCS: 59160; 00940; 59899; 36415; 76856; 84702; 85014; 85018; 85025; 85027; 86850; 86900; 86901; 86920; 86922; 88305; 96361; 96365; 96366; 96372; 96375; 99218; 99251; 99284; 99406; J7030; J7120; A4216; G0378; G0463; J2405

== ENCOUNTER → 2021-09-04 | Outpatient (CLI) | payer OTHER, MEDICAID, SELFPAY ==
[2021-09-04 11:35] LABS: Hemoglobin 8.3 g/dL (12.0-15.0); Mean Corp Hgb Conc 31.9 g/dL (32-36); Mean Corpuscular Hgb 28.4 pg (27.0-32.0); Mean Platelet Vol. 10.5 fl (6.2-12.0); Platelet Count 350 K/mm3 (150-450); RBC Distribution Width CV 12.3 % (11.6-14.6); RBC Distribution Width SD 39.6 fl (35.1-43.9); Red Blood Count 2.92 M/mm3 (4.2-5.4); White Blood Count 6.7 K/mm3 (4.4-11.0)
== END | disposition home or self-care (01) ==
LOC: WOBLAB 11:23
PROVIDERS: Visit Provider Obstetrics & Gynecology
DX: D64.9 Anemia, unspecified (principal)
CPT/HCPCS: 36415; 85027

== ENCOUNTER 2021-09-15 22:15 | Observation (INO) | payer OTHER, MEDICAID, SELFPAY ==
[2021-09-15 22:16] VITALS: BP 121/85; PULSE 101; RESP 15; TEMP 35.7; O2SAT 97; BMI 30.2
--- NOTE | 2021-09-15 22:33 | EDS_ITS ---
HPI History of Present Illness Chief Complaint: Abd Pain Informant: patient Narrative Narrative: 20-year-old female presenting to the emergency room with recurrent right upper quadrant/epigastric abdominal pain. Patient states that this is been present over the past week. She notes about 3 episodes of pain today. This evening was associated with vomiting. She states that tonight she ate [place] and had the steak quesadilla and it was not until about 1 to 2 hours later that she began to have her symptoms. Patient notes that she recently delivered a baby and had to subsequently undergo D&C for retained products of conception. She denies any recent fevers. No increased gas or belching. She denies any other surgeries on her abdomen. [facility] Medical History 40 weeks gestation of Anxiety Asthma Depression Spontaneous vaginal delivery Home Medications ondansetron 4 mg disintegrating tablet 4 mg PO Q6H PRN nausea and vomiting #14 tabs 08/23/21 [Rx Last Taken Unknown] ferrous sulfate 325 mg (65 mg iron) tablet 325 mg PO BID #60 tabs 09/02/21 [Rx Last Taken Unknown] Allergy/AdvReac Type Severity Reaction Status Date / Time No Known Allergies Allergy Verified 08/31/21 15:07 Family History Father Diabetes Mother Depression Grandmother Breast cancer Surgical History H/O dilation and curettage History of adenoidectomy Hx of tonsillectomy Social History household members: significant other Smoking Status: Current every day smoker tobacco type: e-cigarettes alcohol intake: never substance use type: marijuana ROS ROS ED Constitutional Constitutional ED: Denies chills or weight loss Eyes Eyes: Denies change in vision or diplopia ENT ENT ED: Denies ear pain, rhinorrhea or sore throat Cardiovascular Cardiovascular: Denies chest pain, orthopnea, palpitations or racing heartbeat Respiratory/Chest Respiratory/Chest: Denies cough, dyspnea or orthopnea Gastrointestinal Gastrointestinal: Reports abdominal pain, nausea and vomiting; Denies diarrhea Genitourinary Genitourinary ED: Denies dysuria, hematuria or urinary frequency Musculoskeletal Musculoskeletal: Denies arthralgias or myalgias Integumentary Denies abscess or rash Neurologic Neurologic: Denies headache(s) or weakness Psychiatric Psychiatric: Denies anxiety, depression, suicidal ideation or suicidal thoughts Endocrine Endocrinology: Denies polydipsia, polyphagia or polyuria Allergic/Immunologic Allergic/Immunologic ED: Denies mouth swelling, tongue swelling or urticaria EXAM Physical Exam Const Vital Signs: 09/15/21 22:16 Temperature 96.2 F L Temperature Source Temporal Pulse Rate 101 H Respiratory Rate 15 Blood Pressure 121/85 H Blood Pressure Mean 97 Pulse Ox 97 Oxygen Delivery Method Room Air Positive well nourished and well developed General Appearance ED: well developed HEENT Reports normocephalic, head/scalp atraumatic and moist mucous membranes Eyes PERRL and EOMs intact bilaterally Neck no lymphadenopathy, supple and no JVD Resp normal respiratory effort and clear to auscultation bilaterally Cardio regular rate, regular rhythm and no murmurs GI Inspection: Negative for abdominal distention Auscultation: normoactive bowel sounds Palpation: soft and tender epigastric and RUQ Back/Spine no CVA tenderness and normal ROM Extremity normal to inspection General Extremety ED: Negative for edema General Extremity: Negative for edema Neuro oriented x3 and CN's II-XII intact bilaterally Sensorium / Orientation: alert Motor Exam: strength 5/5 throughout Psych mental status grossly normal Mood & Affect: Negative for depressed or tearful Skin no rashes or lesions noted and no wounds MDM MDM MDM Narrative Medical decision making narrative: Patient's white count and labs appear normal. She is not . Gallbladder ultrasound demonstrates cholelithiasis with CBD of 7 mm. Positive sonographic Rivera sign. Patient received morphine and Zofran as well as Zosyn. I spoke with our surgeon Dr. Thornton. He will be up to see the patient here in emergency. The patient is feeling better but not pain-free. Lab Data Attestation: I reviewed the patient's lab results. Labs: Laboratory Results - last 24 hr 09/15/21 09/15/21 09/15/21 22:53 22:53 22:53 WBC 7.0 RBC 3.54 L Hgb 9.8 L Hct 30.0 L MCV 84.7 MCH 27.7 MCHC 32.7 RDW Std Deviation 38.0 RDW Coeff of Connor 12.4 Plt Count 343 MPV 10.5 Immature Gran % (Auto) 0.900 Neut % (Auto) 61.6 Lymph % (Auto) 27.0 [place] % (Auto) 6.4 Eos % (Auto) 3.4 Baso % (Auto) 0.7 Absolute Neuts (auto) 4.3 Absolute Lymphs (auto) 1.89 Nucleated RBC % 0 Sodium 139 Potassium 3.8 Chloride 105 Carbon Dioxide 29.0 Anion Gap 5 BUN 6 L Creatinine 0.86 Estim Creat Clear Calc 90.11 Est GFR (MDRD) Af Amer 107 Est GFR (MDRD) Non-Af 88 BUN/Creatinine Ratio 7.0 L Glucose 91 Calcium 8.7 Total Bilirubin 0.50 Direct Bilirubin 0.25 AST 21 ALT 15 Alkaline Phosphatase 70 Total Protein 7.3 Albumin 3.6 Globulin 3.7 Lipase 82 Serum , Qual NEGATIVE Urine Test 09/15/21 22:53 WBC RBC Hgb Hct MCV MCH MCHC RDW Std Deviation RDW Coeff of Connor Plt Count MPV Immature Gran % (Auto) Neut % (Auto) Lymph % (Auto) [place] % (Auto) Eos % (Auto) Baso % (Auto) Absolute Neuts (auto) Absolute Lymphs (auto) Nucleated RBC % Sodium Potassium Chloride Carbon Dioxide Anion Gap BUN Creatinine Estim Creat Clear Calc Est GFR (MDRD) Af Amer Est GFR (MDRD) Non-Af BUN/Creatinine Ratio Glucose Calcium Total Bilirubin Direct Bilirubin AST ALT Alkaline Phosphatase Total Protein Albumin Globulin Lipase Serum , Qual Urine Test Negative Radiography Diagnostic Testing: Clinical Impression(s) from Imaging Studies Gallbladder Ultrasound 09/15/21 22:33 IMPRESSION: Cholelithiasis. Positive sonographic Rivera sign may be consistent with acute cholecystitis. Borderline dilated common bile duct. Choledocholithiasis not excluded. Electronically Signed: Massiel Wells MD at 23:32 EDT , Discharge Plan Dx/Rx/DC Orders Clinical Impression: Abdominal pain, Acute calculous cholecystitis Disposition Disposition: Acute Care [facility]
--- NOTE | 2021-09-15 22:33 | US_ITS ---
STUDY: ABDOMINAL ULTRASOUND - RIGHT UPPER QUADRANT REASON FOR VISIT: Female, 20 years old PAIN-ruq TECHNIQUE: Ultrasound evaluation of the right upper quadrant was performed with real-time and static house-scale imaging. TECHNICAL QUALITY: Adequate. COMPARISON: None. FINDINGS: LIVER: Length 14.8 cm. Normal echotexture. GALLBLADDER Size: Distended. Stones: Multiple. Wall thickness: Not thickened. 3 mm. Pericholecystic fluid: None. Sonographic Rivera sign: Positive. EXTRAHEPATIC BILE DUCTS: Common bile duct 7 mm borderline dilated. PANCREAS: Visualized portions unremarkable. The tail was obscured by bowel gas. RIGHT KIDNEY: No hydronephrosis. ASCITES: None. US/Gallbladder IMPRESSION: Cholelithiasis. Positive sonographic Rivera sign may be consistent with acute cholecystitis. Borderline dilated common bile duct. Choledocholithiasis not excluded. Electronically Signed: Massiel Wells MD at 23:32 EDT ,
[2021-09-15] MEDS: Ondansetron 4 MG/2 ML Vial IV (22:47)
[2021-09-15] MEDS: Morphine 4 MG/ML Syringe IV (22:47)
[2021-09-15 23:17] LABS: Internal QC Validated? YES +Cl - CLEAR BKGD; Pregnancy, Urine Negative Negative
[2021-09-15 23:20] LABS: Absolute Lymphocyte Count 1.89 X10^3/uL (0.83-4.51); Absolute Neutrophil Count 4.3 X10^3/uL (2.0-7.7); Basophil# 0.05 X10^3/uL; Basophil% 0.7 % (0-1); Eosinophil# 0.24 X10^3/uL; Eosinophils% 3.4 % (0-5); Hemoglobin 9.8 g/dL (12.0-15.0); Lymphocyte # 1.89 X10^3/ul (0.83-4.51); Mean Corp Hgb Conc 32.7 g/dL (32-36); Mean Corpuscular Hgb 27.7 pg (27.0-32.0); Mean Corpuscular Volume 84.7 fL (81-99); Mean Platelet Vol. 10.5 fl (6.2-12.0); Monocyte# 0.45 X10^3/uL; Monocyte% 6.4 % (0-10); NRBC Flagged by Analyzer 0 % (0-5); Neutrophil % 61.6 % (47-70); Platelet Count 343 K/mm3 (150-450); RBC Distribution Width CV 12.4 % (11.6-14.6); Red Blood Count 3.54 M/mm3 (4.2-5.4)
[2021-09-15 23:22] LABS: Internal QC Validated? YES +Cl - CLEAR BKGD; Pregnancy, Serum, hCG Quali. NEGATIVE Negative
[2021-09-15 23:30] LABS: AST(SGOT) 21 U/L (15-37); Alanine Aminotransfer ALT/SGPT 15 U/L (13-56); Albumin, Serum 3.6 g/dL (3.2-5.0); Alkaline Phosphatase 70 U/L (45-117); Anion Gap 5 (5-15); BUN 6 mg/dL (7-18); Bilirubin, Direct 0.25 mg/dL (0.00-0.30); Calcium,Total 8.7 mg/dL (8.5-10.1); Chloride 105 mmol/L (98-107); Creatinine, Serum 0.86 mg/dL (0.55-1.02); EST Glomerular Filtration Rate 88 mL/min (>60); Est Glom Filt Rate - Afr Amer 107 mL/min (>60); Estimated Creatinine Clearance 90.11 ml/min; Globulin 3.7 g/dL (2.2-4.2); Glucose 91 mg/dL (74-106); Lipase 82 U/L (73-393); Potassium 3.8 mmol/L (3.5-5.1); Protein, Total 7.3 g/dL (6.4-8.2); Sodium Level 139 mmol/L (136-145)
[2021-09-16] VITALS (12 sets, daily range): BP systolic 93–138; BP diastolic 48–77; PULSE 65–95; RESP 16–20; TEMP 36.4–37; O2SAT 95–100; BMI 30.9
--- NOTE | 2021-09-16 00:38 | HP.PCM_ITS ---
HPI - General General Date of Admission: 09/16/21 Chief Complaint: Acute onset abdominal pain HPI Narrative CHANA DE LA O, is a 20 F who presents to [facility] with complaints of 1 week of right upper quadrant abdominal pain associated with nausea and vomiting. Patient states that she had 3 episodes of abdominal pain yesterday and the final episode would not relent so she decided to seek evaluation. She states over the course of her evaluation her pain has decreased to a level of 6 out of 10. Vomiting she experiences consist mainly of the food stuff she previously ingested. She states earlier in the evening yesterday she had a variety of [place] foods that were cheesy/greasy and 1 to 2 hours afterwards began with her discomfort. ER work-up was notable for CBC that demonstrated some mild anemia, normal WBC, and no left shift. CMP is also notably normal without transaminitis. Right upper quadrant ultrasound, however, was remarkable for a distended gallbladder, evidence of cholelithiasis, positive sonographic Rivera sign, and dilated common bile duct to 7 mm. Pertinent negatives here included normal wall thickness and no pericholecystic fluid. Patient had a spontaneous vaginal delivery in the last 2 to 3 weeks and then on 08/31/2021 required a trip to the operating room for D&C after she was found to have retained products of conception. She states that her new daughter is healthy and doing well at home. She denies any breast-feeding and states her daughter is strictly formula fed at this point. [facility] Medical History 40 weeks gestation of Anxiety Asthma Depression Spontaneous vaginal delivery Home Medications ondansetron 4 mg disintegrating tablet 4 mg PO Q6H PRN nausea and vomiting #14 tabs 08/23/21 [Rx Last Taken Unknown] ferrous sulfate 325 mg (65 mg iron) tablet 325 mg PO BID #60 tabs 09/02/21 [Rx Last Taken Unknown] Allergy/AdvReac Type Severity Reaction Status Date / Time No Known Allergies Allergy Verified 08/31/21 15:07 Family History Father Diabetes Mother Depression Grandmother Breast cancer Surgical History H/O dilation and curettage History of adenoidectomy Hx of tonsillectomy Social History household members: significant other Smoking Status: Current every day smoker tobacco type: e-cigarettes alcohol intake: never substance use type: marijuana ROS Constitutional Constitutional: Reports change in weight and weight loss; Denies poor appetite Gastrointestinal Gastrointestinal: Reports abdominal pain, nausea and vomiting Musculoskeletal Musculoskeletal: Reports back pain Psychiatric Psychiatric: Reports anxiety Vital Signs Vital Signs Vital Signs: 09/15/21 22:16 Temperature 96.2 F L Temperature Source Temporal Pulse Rate 101 H Respiratory Rate 15 Blood Pressure 121/85 H Blood Pressure Mean 97 Pulse Ox 97 Oxygen Delivery Method Room Air Weight Weight: 176 lb Body Mass Index (BMI) 30.2 Physical Exam Const alert and oriented x3 Constitutional Narrative: Mild distress from abdominal discomfort General Appearance: cooperative HEENT normocephalic Resp normal respiratory effort GI GI Narrative: Mildly obese, no scars, nondistended, soft, tender to palpation in the right upper quadrant with positive Rivera sign?otherwise nontender x4 quadrant palpation Results Lab / Micro Data Result Diagrams: 09/15/21 22:53 09/15/21 22:53 Labs: Laboratory Results - last 24 hr 09/15/21 22:53: WBC 7.0, RBC 3.54 L, Hgb 9.8 L, Hct 30.0 L, MCV 84.7, MCH 27.7, MCHC 32.7, RDW Std Deviation 38.0, RDW Coeff of Connor 12.4, Plt Count 343, MPV 10. 5, Immature Gran % (Auto) 0.900, Neut % (Auto) 61.6, Lymph % (Auto) 27.0, Mcculloch % (Auto) 6.4, Eos % (Auto) 3.4, Baso % (Auto) 0.7, Absolute Neuts (auto) 4.3, Absolute Lymphs (auto) 1.89, Nucleated RBC % 0 09/15/21 22:53: Sodium 139, Potassium 3.8, Chloride 105, Carbon Dioxide 29.0, Anion Gap 5, BUN 6 L, Creatinine 0.86, Estim Creat Clear Calc 90.11, Est GFR (MDRD) Af Amer 107, Est GFR (MDRD) Non-Af 88, BUN/Creatinine Ratio 7.0 L, Glucose 91, Calcium 8.7, Total Bilirubin 0.50, Direct Bilirubin 0.25, AST 21, ALT 15, Alkaline Phosphatase 70, Total Protein 7.3, Albumin 3.6, Globulin 3.7, Lipase 82 09/15/21 22:53: Serum , Qual NEGATIVE 09/15/21 22:53: Urine Test Negative Radiology Impression Gallbladder Ultrasound 09/15/21 22:33 IMPRESSION: Cholelithiasis. Positive sonographic Rivera sign may be consistent with acute cholecystitis. Borderline dilated common bile duct. Choledocholithiasis not excluded. Electronically Signed: Massiel Wells MD at 23:32 EDT , Assessment & Plan Assessment/Plan (1) Acute calculous cholecystitis: PLAN: This is a 20-year-old female, recently , who presents with signs and symptoms of acute cholecystitis as well as some dilation of her common bile duct on right upper quadrant ultrasound?raising possibility for concurrent jewel docholithiasis. Given these findings and patient's exam, I have recommended we proceed with laparoscopic cholecystectomy and intraoperative cholangiogram to evaluate for the possibility of any retained stones. The procedure was described in detail to both the patient and her significant other. I also described postoperative expectations. Expressed understanding of this information offered no further questions. Patient to be admitted to the floor under observation status and held n.p.o. until surgery later today. IV antibiotics, started by emergency medicine, will be continued. We will plan to recheck CMP later this morning prior to the OR. Charges/Coding Visit Charges Inpatient E&M: 61263 Init Hosp L2
[2021-09-16] MEDS: 0.9% Normal Saline 1,000 ML 125 ML IV ×3 (01:56→14:44)
--- NOTE | 2021-09-16 05:00 | EKG12_ITS ---
Test Reason : Blood Pressure : / mmHG Vent. Rate : 055 BPM Atrial Rate : 055 BPM P-R Int : 148 ms QRS Dur : 092 ms QT Int : 434 ms P-R-T Axes : 048 065 044 degrees QTc Int : 415 ms Sinus bradycardia with Blocked Premature atrial complexes Otherwise normal ECG When compared with ECG of 15-MAY-2015 15:11, PREVIOUS ECG IS PRESENT Confirmed by DERIC CARIAS, ROXY ([id number]), editor newspaper ANTONELLA SPARKS ([id number]) on 09/18/2021 2:41:53 PM Referred By: ERICA Confirmed By:RAMIREZ LEOS MD
[2021-09-16] MEDS: 0.9% Saline Lock 10 ML Syringe IV (05:55)
[2021-09-16] MEDS: Ondansetron 4 MG/2 ML Vial IV (05:55)
[2021-09-16] MEDS: HYDROmorphone 0.5 MG/0.5 ML SYRINGE IV (05:55)
[2021-09-16 06:05] LABS: International Normalized Ratio 1.1; Partial Thromboplast Time 34.6 Seconds (24.1-36.2); Prothrombin Time (Protime)PT. 14.3 SECONDS (11.7-14.9)
[2021-09-16 06:16] LABS: Magnesium 2.3 mg/dL (1.6-2.6)
[2021-09-16] MEDS: Bupivacaine 0.25% 30 ML Vial (10:40)
--- NOTE | 2021-09-16 11:30 | GALL_PTH ---
PATIENT: CHANA DE LA O LOC: MS3 U#:[id number] AGE/SX: 20/F ROOM: MS313 RE09/16/[address]: Dr. Earl Thornton MD : 2000 BED: 1 DIS: 09/16/2021 SPEC #: [id number] RECD: 09/16/21 14:34 STATUS: JIMMIE PULIDO #: [id number] BEATRIZ: 09/16/21 11:[address]: Earl Thornton DEPT: SURGICAL PATHOLOGY RECD BY: Sparkle Butt ENTERED: 09/17/21 07:47 SP TYPE: TRAVIS MCDANIELS DR: No Primary Care Phys Tissues: Gallbladder, NOS Procedures: Surgery Specimen Level III HEADER OPERATION: Laparoscopic cholecystectomy with IOC PRE-OP DIAGNOSIS: Cholelithiasis, cholecystitis TISSUE SUBMITTED: Gallbladder and contents MICROSCOPIC DIAGNOSIS Gallbladder and contents, cholecystectomy: Chronic cholecystitis and cholelithiasis. SJ:merary 09/18/2021 MICROSCOPIC DESCRIPTION Slides are reviewed. GROSS DESCRIPTION Received is one container labeled with the patient's name and designated gallbladder and contents. The specimen consists of a gallbladder measuring 8 cm in length and up to 4 cm in diameter. The external surface is pink-hines, smooth and glistening for the most part. Focally it is granular, hemorrhagic and contains cautery artifact. The gallbladder contains green-yellow mucoid bile and multiple yellow mulberry stones measuring in aggregate 3 x 4 x 0.5 cm and 0.1 to 0.3 cm in greatest dimension. The mucosa is bile-stained and without any mass lesions. The gallbladder wall measures 0.2 cm in thickness. Deputy Director Of Public [employer] sections from the gallbladder and the cystic duct are submitted in one cassette. / SJ:rg 09/17/2021 TC:3 [facility]: [id number]
--- NOTE | 2021-09-16 12:29 | RAD_ITS ---
STUDY: INTRAOPERATIVE CHOLANGIOGRAM. REASON FOR EXAM: Female, 20 years old. Laparoscopic cholecystectomy. FLUOROSCOPY TIME (if supplied): ( 13.4 seconds ) minutes/seconds. A cine loop of 79 images was submitted. TECHNIQUE: An intraoperative quadrant was performed by the surgeon. Imaging was submitted. COMPARISON: None. FINDINGS: The visualized intra and extrahepatic biliary ducts are unremarkable. No intraluminal filling defect is seen. Free flow of contrast into the duodenum. RAD/Cholangiogram/ O R,Initial IMPRESSION: Unremarkable intraoperative cholangiogram. Electronically Signed: Anil Hassan MD at 13:14 EDT ,
--- NOTE | 2021-09-16 12:37 | NURSING ---
1200-PT OFF UNIT FOR PROCEDURE
--- NOTE | 2021-09-16 13:28 | OP.PCM_ITS ---
Report of Operation Date of Procedure: 09/16/21 Pre-Operative Diagnosis: Cholelithiasis with cholecystitis and dilated common b ile duct Post-Operative Diagnosis: Same Surgery/Procedure Performed:: Laparoscopic cholecystectomy with intraoperative cholangiogram Surgeon: Earl Thornton pest control service technician: Carmela Nunez Type of Anesthesia: General/Supplemental Anesthesiologist: Jose Huertas Specimen's removed: Gallbladder Estimated Blood Loss (mL): 20 Description of Procedure: After proper identification in the preoperative holding area the patient was brought to the operating room where she was positioned supine on the operating room table. Preoperatively SCDs (antibiotics were previously administered on the floor as part of a continuous infusion). General anesthesia was then induced. Patient's abdomen was prepped and draped in usual sterile fashion. A formal timeout was conducted to confirm both patient and the procedure. Procedure was begun with a supraumbilical incision which was extended deeply down to the level of the fascia. The fascia was elevated and incised, as well as the peritoneum. A finger sweep was performed to ensure there were no underlying adhesions and a 12 mm trocar was inserted. Pneumoperitoneum was established at 15 mmHg. 3 additional trocars were placed in the epigastrium and in the right upper quadrant (3 x 5 mm). Inspection of the peritoneum revealed no inadvertent injury to the viscera below. The gallbladder was visualized with minimal inflammation to the gallbladder fundus, but as the gallbladder fundus was then grasped and elevated cephalad there was numerous adhesions to the omentum and duodenum with the infundibulum. Then, using careful dissection the peritoneum was opened and the structures of the hepatocystic triangle were delineated. Once the critical view of safety was obtained, the cystic duct was partially opened with a ductotomy and several stones were extracted from the duct to permit passage of the cholangiocatheter. Using an [place] clamp, a cholangiocatheter was fed into the proximal segment of the cystic duct and clamped into place. Under fluoroscopy a cholangiogram was then obtained showing a normal length cystic duct flowing into a common bile duct (there was also what appeared to be an early takeoff of the right hepatic duct where the cystic duct joined then) with unobstructed antegrade flow of contrast into the duodenum. There was also retrograde flow through the common hepatic duct into the right and left hepatic ducts. The cystic duct was triply clipped and sharply divided. The node of Calot had been previously removed and a remaining cystic artery appeared largely fibrotic but was doubly clipped and divided. Posteriorly there was a second vessel that entered the liver at the cystic plate but sent a diminutive branch towards the gallbladder that was taken with electrocautery. The gallbladder was then removed from the gallbladder fossa with the use of electrocautery. Selective electrocautery was used to obtain hemostasis in the gallbladder fossa. The gallbladder was placed in an Endo Catch bag and removed from the peritoneum. Morison's pouch was irrigated and the effluent was suctioned free of the peritoneum. Hemostasis was again confirmed. Pneumoperitoneum was evacuated and the fascia of the 12 mm supraumbilical port site was closed with #1Vicryl in a [id number] fashion. A total of 30 mL of 0.25% bupivacaine plain local anesthetic was injected at the port sites for postoperative pain control. The skin of each port site was then closed in subcuticular fashion using 4-0 Monocryl. Steri-Strips and bandages were applied as dressings. Patient tolerated the procedure well without any apparent complications. On emergence from their anesthetic the patient was taken to PACU for ongoing recovery. Complications None Admit VTE Documentation VTE Present on Admission: Yes VTE Mechan Device Prophylaxis: SCD's VTE Pharm Prophylaxis ordered?: No Procedures Digestive 40xxx-49xxx: [id number] Laparo cholecystectomy/graph
--- NOTE | 2021-09-16 14:26 | DCINST_ITS ---
Discharge Instructions Diet Discharge Diet: No restrictions Activity Discharge Activity: May Not Drive May shower in (days): 2 May resume sexual activity in: 2 weeks Ice area for (Minutes): 20 Lifting Restrictions: Limit lifting to <15lbs for 2 weeks following surgery Dressing / Incision Call your doctor if your incision/area has: Sudden Increased Bleeding, Increased Pain/ Swelling, Increased Redness, Foul Smelling Discharge and Swelling at the incision site Call your doctor if you observe: Fever of 101 or Higher, Inability to urinate, Inability to have a bowel movement and Uncontrolled pain Suture Line Care: Avoid Pulling/Pushing Remove Dressing in: 2 days (Please leave steri strips (medical tape) in place until they fall off spontaneously or are removed at your follow-up appointment) Cleanse incision/area with: Keep Dressing Clean & Dry Additional Dressing/Incision Instructions:: Please leave Steri-Strips intact until they fall off spontaneously or are taken off at your follow-up visit Follow Up Care Please Follow Up With: Earl Thornton MD When: 7 to 10 days postop Test Results: Test results from this visit will be discussed in further detail at your follow- up appointment, if applicable. Discharge Plan Admission Admit Date/Time: 09/16/21 00:35 Primary Reason for Your Visit: Cholecystitis Attending Provider: Earl Thornton Primary Care Provider: Care Wendy Christina Primary Instructions Patient Instructions: Cholecystectomy Laparoscopic Dc Discharge Orders/Prescriptions Prescriptions: New oxycodone 5 mg Tablet 5 mg PO Q6H PRN PRN (Reason: Pain Score 6-10) 3 Days Qty: 10 0RF Continued iron 50 mg iron Tablet 1 tab PO BID Referrals / Follow Up: Care PhysicianWendy Primary [Primary Care Provider] - Disposition Disposition (needs filled in before D/C Order can be placed): Home, Self Care
--- NOTE | 2021-09-16 14:31 | PCM.DC.SUM ---
Providers Date of Admission: 09/16/21 Primary Care Physician: No Primary Care Phys Reason For Visit: ACUTE CHOLECYSTITIS Diagnosis Discharge Diagnosis (1) Acute calculous cholecystitis: Status: Acute Code(s): K80.00 - Calculus of gallbladder with acute cholecystitis without obstruction Plan: This is a 20-year-old female, recently , who presents with signs and symptoms of acute cholecystitis as well as some dilation of her common bile duct on right upper quadrant ultrasound?raising possibility for concurrent choledocholithiasis. Given these findings and patient's exam, I have recommended we proceed with laparoscopic cholecystectomy and intraoperative cholangiogram to evaluate for the possibility of any retained stones. The procedure was described in detail to both the patient and her significant other. I also described postoperative expectations. Expressed understanding of this information offered no further questions. Patient to be admitted to the floor under observation status and held n.p.o. until surgery later today. IV antibiotics, started by emergency medicine, will be continued. We will plan to recheck CMP later this morning prior to the OR. (2) Anemia: Status: Acute Code(s): D64.9 - Anemia, unspecified Medications at Discharge Home Medications iron 50 mg iron tablet 1 tab PO BID 09/16/21 oxycodone 5 mg tablet 5 mg PO Q6H PRN PRN Pain Score 6-10 3 days #10 tabs 09/16/21 Hospital Course Operations cholecystecomy Procedures None Summary of Care Provided Hospital Course: Patient was admitted early the morning of 09/16/2021 after presenting the evening prior with complaints of acute onset abdominal pain, nausea, and vomiting. ER work-up revealed a diagnosis of early cholecystitis and ultrasound was remarkable for evidence of a dilated common bile duct. Therefore cholecystectomy with intraoperative cholangiogram was recommended. Patient was held n.p.o. on admission and IV antibiotics with IV Zosyn were continued. Patient was then taken to the operating room later in the morning for an uncomplicated laparoscopic cholecystectomy with cholangiogram. Postoperatively she was returned to the floor where her diet was advanced and she was administered oral pain medications for postoperative discomfort. These transition she tolerated well and requested discharge to home. Given her clinical improvements, this was granted. However, postoperative expectations?including a clinic follow-up?were reviewed. Physical Exam Const alert and oriented x3 General Appearance: cooperative Resp normal respiratory effort GI GI Narrative: Patient's fresh postoperative incisions just scant bloody drainage strikethrough. There is a slight amount of tenderness with palpation at the subxiphoid port site?otherwise patient's abdomen was soft and relatively nontender. Weight / BMI Weight Weight: 181 lb 3.52 oz Body Mass Index (BMI) 30.9 ABG / Lab / Microbiology Data Result Diagrams: 09/15/21 22:53 09/15/21 22:53 Laboratory: Laboratory Results - last 24 hr 09/15/21 22:53: WBC 7.0, RBC 3.54 L, Hgb 9.8 L, Hct 30.0 L, MCV 84.7, MCH 27.7, MCHC 32.7, RDW Std Deviation 38.0, RDW Coeff of Connor 12.4, Plt Count 343, MPV 10.5, Immature Gran % (Auto) 0.900, Neut % (Auto) 61.6, Lymph % (Auto) 27.0, [place] % (Auto) 6.4, Eos % (Auto) 3.4, Baso % (Auto) 0.7, Absolute Neuts (auto) 4.3, Absolute Lymphs (auto) 1.89, Nucleated RBC % 0 09/15/21 22:53: Sodium 139, Potassium 3.8, Chloride 105, Carbon Dioxide 29.0, Anion Gap 5, BUN 6 L, Creatinine 0.86, Estim Creat Clear Calc 90.11, Est GFR (MDRD) Af Amer 107, Est GFR (MDRD) Non-Af 88, BUN/Creatinine Ratio 7.0 L, Glucose 91, Calcium 8.7, Total Bilirubin 0.50, Direct Bilirubin 0.25, AST 21, ALT 15, Alkaline Phosphatase 70, Total Protein 7.3, Albumin 3.6, Globulin 3.7, Lipase 82 09/15/21 22:53: Serum , Qual NEGATIVE 09/15/21 22:53: Urine Test Negative 09/16/21 05:30: Magnesium 2.3 09/16/21 05:30: PT 14.3, INR 1.1, APTT 34.6 Radiography Diagnostic Testing: Radiology Impression Gallbladder Ultrasound 09/15/21 22:33 IMPRESSION: Cholelithiasis. Positive sonographic Rivera sign may be consistent with acute cholecystitis. Borderline dilated common bile duct. Choledocholithiasis not excluded. Electronically Signed: Massiel Wells MD at 23:32 EDT , Cholangiogram 09/16/21 12:29 IMPRESSION: Unremarkable intraoperative cholangiogram. Electronically Signed: Anil Hassan MD at 13:14 EDT , D/C Instructions Discharge Diet: No restrictions May shower in (days): 2 May resume sexual activity in: 2 weeks Ice area for (Minutes): 20 Call your doctor if your incision/area has: Sudden Increased Bleeding, Increased Pain/ Swelling, Increased Redness, Foul Smelling Discharge and Swelling at the incision site Call your doctor if you observe: Fever of 101 or Higher, Inability to urinate, Inability to have a bowel movement and Uncontrolled pain Suture Line Care: Avoid Pulling/Pushing Cleanse incision/area with: Keep Dressing Clean & Dry Additional Dressing/Incision Instructions: Please leave Steri-Strips intact until they fall off spontaneously or are taken off at your follow-up visit Please Follow Up With: Earl Thornton MD When: 7 to 10 days postop Meaningful Use Info Meaningful Use Diagnoses (Choose all that apply): None applicable Discharge Plan Admission Admit Date/Time: 09/16/21 00:35 Primary Reason for Your Visit: Cholecystitis Attending Provider: Earl Thornton Primary Care Provider: Care Physician,Wendy Primary Instructions Patient Instructions: Cholecystectomy Dc Discharge Orders/Prescriptions Prescriptions: New oxycodone 5 mg Tablet 5 mg PO Q6H PRN PRN (Reason: Pain Score 6-10) 3 Days Qty: 10 0RF Continued iron 50 mg iron Tablet 1 tab PO BID Referrals / Follow Up: Care PhysicianWendy Primary [Primary Care Provider] - Disposition Disposition (needs filled in before D/C Order can be placed): Home, Self Care
== END 2021-09-16 16:51 | disposition home or self-care (01) ==
LOC: ED 23:44 → MS3 09-16 00:35
PROVIDERS: Anesthesiology; Admitting Provider Surgery; Emergency Provider Emergency Medicine; Visit Provider Surgery
PROC: (CPT 47610; principal; 2021-09-16 11:10)
DX: K80.10 Calculus of gallbladder with chronic cholecystitis without obstruction (principal); F17.290 Nicotine dependence, other tobacco product, uncomplicated; J45.909 Unspecified asthma, uncomplicated
CPT/HCPCS: 47563; 00790; 36415; 74300; 76000; 76705; 80048; 80076; 81025; 83690; 83735; 84703; 85025; 85610; 85730; 88304; 93005; 96361; 96365; 96366; 96375; 96376; 99218; 99283; 99406; J7030; J7050; A4216; G0378; J2405

== ENCOUNTER 2021-10-14 14:28 | Emergency (ER) | payer OTHER, MEDICAID, SELFPAY ==
[2021-10-14 14:29] VITALS: BP 124/71; PULSE 99; RESP 14; TEMP 36.5; O2SAT 98; BMI 30.9
--- NOTE | 2021-10-14 15:43 | EDS_ITS ---
HPI HPI - URI History of Present Illness Chief Complaint: Ear Problem Detail of Chief Complaint: Mild right ear pressure. I hear wind in my right ear Informant: patient Onset/Context/Timing Onset: Yesterday Timing: Intermittent Current Severity: Mild Maximum Severity: Mild Associated Symptoms Associated Symptoms: Negative for Nasal Congestion, Headache, Sinus Pressure, Myalgias, Nausea, Vomiting, Diarrhea, Shortness of Breath, Chest Pain, Nonproductive cough, Hemoptysis or Productive Cough Narrative Narrative: 20-year-old female no seen past medical history. States that she felt some mild pressure in her right ear since yesterday. She hears wind. Denies any sore throat. No fever. No earache. No trauma. Prior similar symptoms: No Recent Illness/Hospitalization: No ROS ROS ED ROS Narrative Denies. Review of Systems ROS Unobtainable: Denies due to encephalopathy Constitutional Constitutional ED: Denies chills or fever(s) Eyes Eyes: Denies blurry vision ENT ENT ED: Denies ear pain, rhinorrhea or sore throat Cardiovascular Cardiovascular: Denies chest pain Respiratory/Chest Respiratory/Chest: Denies cough or dyspnea Gastrointestinal Gastrointestinal: Denies abdominal pain Genitourinary Genitourinary ED: Denies dysuria or hematuria Integumentary Denies abscess Neurologic Neurologic: Denies headache(s) Psychiatric Psychiatric: Denies anxiety Endocrine Endocrinology: Denies cold intolerance Hematologic/Lymphatic Hematologic/Lymphatic: Denies easy bruising Allergic/Immunologic Allergic/Immunologic ED: Denies mouth swelling, tongue swelling or urticaria PFSH PFSH Medical History 40 weeks gestation of Anemia Anxiety Asthma Depression Spontaneous vaginal delivery Substance abuse Home Medications iron 50 mg iron tablet 1 tab PO BID 09/16/21 [History Last Taken Unknown] Allergy/AdvReac Type Severity Reaction Status Date / Time No Known Allergies Allergy Verified 10/14/21 14:29 Family History Father Diabetes Mother Depression Grandmother Breast cancer Surgical History H/O dilation and curettage History of adenoidectomy History of cholecystectomy (~09/2021) Hx of tonsillectomy Social History household members: significant other Smoking Status: Current every day smoker tobacco type: e-cigarettes alcohol intake: never substance use type: marijuana EXAM Physical Exam Narrative Exam Narrative: 20-year-old no acute stress. Normal exam. H EENT exam normal. Bilateral ear canals are normal. No wax and swelling. Bilateral TMs unremarkable. Posterior pharynx normal. No erythema or exudate. Neck nontender. No eustachian tube tenderness. No lymphadenopathy. Lungs clear. Heart regular rhythm. No murmur. Otherwise exam normal. Const Vital Signs: 10/14/21 14:29 Temperature 97.7 F L Temperature Source Temporal Pulse Rate 99 Respiratory Rate 14 Blood Pressure 124/71 H Blood Pressure Mean 88 Pulse Ox 98 Oxygen Delivery Method Room Air Positive well nourished, well developed and obese; Negative for cachectic or contractures General Appearance ED: well developed and NAD; Negative for cachectic, contractu res, cyanotic, diaphoretic or pallor Nutritional Appearance: obese; Negative for cachectic HEENT Reports moist mucous membranes normocephalic and atraumatic Face and Sinus: Negative for sinus tenderness, maxillary instability or facial tenderness Teeth and Gingiva: Negative for caries Throat: posterior oropharynx normal; Negative for tonsils abnormal or posterior oropharynx abnormal Eyes PERRL and EOMs intact bilaterally General Eye ED: Negative for pale conjunctiva or scleral icterus Neck no lymphadenopathy, supple, no meningeal signs and no JVD General: Negative for anterior neck swelling or lymphadenopathy Resp normal respiratory effort and clear to auscultation bilaterally Effort and Inspection: Negative for retractions Auscultation: Negative for rales, rhonchi or wheezes Cardio S1 normal heart sound, S2 normal heart sound and no murmurs Rate: regular rate; Negative for bradycardia Rhythm: regular rhythm GI non-tender, non-distended and no masses Inspection: Negative for abdominal distention Auscultation: normoactive bowel sounds Palpation: soft; Negative for tender or guarding Percussion: Negative for other Back/Spine no CVA tenderness and normal ROM General Back: Negative for CVA tenderness Cervical Spine: Negative for cervical spine tenderness Thoracic Spine / Upper Back: Negative for thoracic spinal tenderness Lumbar Spine / Lower Back: Negative for lumbar spinal tenderness Sacrum: Negative for tenderness Extremity normal to inspection and full ROM General Extremety ED: Negative for cyanosis, tenderness or other findings General Extremity: Negative for cyanosis or other findings Neuro oriented x3 and no sensory deficits noted Sensorium / Orientation: alert, oriented to person, oriented to place and oriented to time; Negative for orientation impaired, lethargic or stuporous Motor Exam: strength 5/5 throughout; Negative for general weakness Psych mental status grossly normal Appearance: Negative for other Attitude: No agitated Mood & Affect: Negative for depressed or anxious Skin General Skin Exam: Negative for jaundice or pallor Lesions: no lesions Rashes: no rashes Trauma: Negative for abrasion or laceration MDM MDM MDM Narrative Medical decision making narrative: 20-year-old with right ear discomfort exam is normal. There is no signs of infection or significant fluid. Canals normal. This should clear up next several days. Otherwise follow-up with her primary care physician. Discharge Plan Triage Chief Complaint: Ear Problem ED Provider: Marcos Arizmendi Dx/Rx/DC Orders Clinical Impression: Acute ear pain Instructions: ED Earache Without Infection (Adult) Prescriptions: No Action iron 50 mg iron Tablet 1 tab PO BID Primary Care Provider: Care Physician,No Primary Referrals: Mandeep Kat MD [Non-Staff] - 3-5 Days if not improving Care Physician,No Primary [Primary Care Provider] - Activity Restrictions/Additional Instructions: Motrin and Tylenol for any ear pain. Follow-up if not improving. Normal exam at this time. Disposition Disposition: Home, Self Care
== END 2021-10-14 16:03 | disposition home or self-care (01) ==
PROVIDERS: Emergency Provider Emergency Medicine; Visit Provider Emergency Medicine
DX: H92.01 Otalgia, right ear (principal); H93.91 Unspecified disorder of right ear; D64.9 Anemia, unspecified; E66.9 Obesity, unspecified; F17.290 Nicotine dependence, other tobacco product, uncomplicated
CPT/HCPCS: 99282

== ENCOUNTER → 2021-12-15 | Outpatient (CLI) | payer OTHER, MEDICAID, SELFPAY ==
[2021-12-23 16:32] LABS: HPV Reflexed? NOT INDICATED
== END | disposition home or self-care (01) ==
LOC: LABSPEC 15:56
PROVIDERS: Visit Provider Student in an Organized Health Care Education/Training Program
DX: Z12.4 Encounter for screening for malignant neoplasm of cervix (principal)
CPT/HCPCS: 88175; G0145

== ENCOUNTER 2021-12-24 08:29 | Emergency (ER) | payer OTHER, MEDICAID, SELFPAY ==
[2021-12-24 08:30] VITALS: BP 123/74; PULSE 91; RESP 17; TEMP 36.4; O2SAT 98; BMI 33.0
--- NOTE | 2021-12-24 08:49 | EDS_ITS ---
HPI HPI - GI History of Present Illness Chief Complaint: Abd Pain Narrative Narrative: 21-year-old female status postcholecystectomy in August presenting with nausea, vomiting, abdominal pain. She describes the pain is across her upper abdomen. She states this has been a problem since she had surgery however it is acutely worsened over the last week. She states she is having bowel movements but it is green. No constipation. No fevers, chills. Patient did have 1 follow-up with Dr. Thornton after the surgery but has not followed up since. Patient initially thought that this was just getting used to a new diet which was healthier however it has been persistent. Patient also states that she has had problems with her stomach her whole life but everybody always told her that she is okay. She does not have a known history of GERD/gastritis. [facility] Medical History 40 weeks gestation of Anemia Anxiety Asthma Depression Spontaneous vaginal delivery Substance abuse Home Medications iron 50 mg iron tablet 1 tab PO BID 09/16/21 [History Last Taken Unknown] omeprazole 20 mg capsule,delayed release 20 mg PO DAILY #30 caps 12/24/21 [Rx Last Taken Unknown] ondansetron 4 mg disintegrating tablet 4 mg PO Q8H PRN nausea and vomiting #14 tabs 12/24/21 [Rx Last Taken Unknown] sucralfate 100 mg/mL oral suspension (Carafate) 10 ml PO TID 4 weeks #840 mL 12/24/21 [Rx Last Taken Unknown] Allergy/AdvReac Type Severity Reaction Status Date / Time No Known Allergies Allergy Verified 12/24/21 08:30 Family History Father Diabetes Mother Depression Grandmother Breast cancer Surgical History H/O dilation and curettage History of adenoidectomy History of cholecystectomy (~09/2021) Hx of tonsillectomy Social History household members: significant other Smoking Status: Current every day smoker tobacco type: cigarettes and e- cigarettes alcohol intake: never substance use type: marijuana ROS ROS ED Constitutional Constitutional ED: Denies chills or fever(s) ENT ENT ED: Denies rhinorrhea or sore throat Cardiovascular Cardiovascular: Denies chest pain or palpitations Respiratory/Chest Respiratory/Chest: Denies cough or dyspnea Gastrointestinal Gastrointestinal: Reports abdominal pain, nausea and vomiting; Denies constipation Genitourinary Genitourinary ED: Denies dysuria or hematuria Musculoskeletal Musculoskeletal: Denies arthralgias or myalgias Integumentary Denies abscess or Abrasions Neurologic Neurologic: Denies headache(s) or paresthesias Psychiatric Psychiatric: Denies anxiety or depression EXAM Physical Exam Const Vital Signs: 12/24/21 08:30 Temperature 97.5 F L Temperature Source Temporal Pulse Rate 91 Respiratory Rate 17 Blood Pressure 123/74 H Blood Pressure Mean 90 Pulse Ox 98 Oxygen Delivery Method Room Air Positive well nourished and obese General Appearance ED: NAD; Negative for pallor Nutritional Appearance: obese HEENT Reports moist mucous membranes normocephalic Eyes PERRL and EOMs intact bilaterally General Eye ED: Negative for pale conjunctiva or scleral icterus Resp normal respiratory effort Cardio regular rate and regular rhythm GI Inspection: Negative for abdominal distention Auscultation: normoactive bowel sounds Palpation: tender epigastric; Negative for guarding, rigid or mass Back/Spine no CVA tenderness Neuro CN's II-XII intact bilaterally Sensorium / Orientation: alert Motor Exam: strength 5/5 throughout Psych mental status grossly normal and thought process normal Skin no wounds General Skin Exam: Negative for jaundice or pallor MDM MDM MDM Narrative Medical decision making narrative: Patient presenting with abdominal pain, nausea, vomiting. Lab work was ordered. Patient medicated with morphine, Zofran, 1 L of normal saline. Blood work is obtained and her CBC and CMP are normal. Serum hCG negative. Lipase is normal as well. She is feeling improved on repeat evaluation. I do not believe she needs a CT scan at this time I suspect with her chronic stomach problems that she likely has GERD or gastritis. She is given Zofran and Carafate for home. She is also given omeprazole. I gave her follow-up with Dr. Kowalski. Return precautions discussed. Impression: 1. Abdominal pain 2. Nausea/vomiting 3. Gastritis Lab Data Labs: Laboratory Results - last 24 hr 12/24/21 12/24/21 12/24/21 09:00 09:00 09:00 WBC 8.6 RBC 4.92 Hgb 11.1 L Hct 35.2 L MCV 71.5 L MCH 22.6 L MCHC 31.5 L RDW Std Deviation 43.4 RDW Coeff of Connor 17.3 H Plt Count 353 MPV 10.9 Immature Gran % (Auto) 0.400 Neut % (Auto) 73.3 H Lymph % (Auto) 19.5 [place] % (Auto) 5.7 Eos % (Auto) 0.6 Baso % (Auto) 0.5 Absolute Neuts (auto) 6.3 Absolute Lymphs (auto) 1.67 Nucleated RBC % 0 Sodium 140 Potassium 3.7 Chloride 109 H Carbon Dioxide 24.0 Anion Gap 7 BUN 8 Creatinine 0.72 Estim Creat Clear Calc 111.22 Est GFR (MDRD) Af Amer 132 Est GFR (MDRD) Non-Af 109 BUN/Creatinine Ratio 11.1 Glucose 98 Calcium 9.2 Total Bilirubin 0.50 AST 15 ALT 20 Alkaline Phosphatase 71 Total Protein 8.1 Albumin 3.9 Globulin 4.2 Albumin/Globulin Ratio 0.9 Lipase 77 Serum , Qual NEGATIVE Discharge Plan Triage Chief Complaint: Abd Pain ED Provider: Mark Guerrero Dx/Rx/DC Orders Instructions: ED Abdominal Pain Unkn Cause Fem, ED Gastritis (Adult) Prescriptions: New ondansetron 4 mg tablet,disintegrating 4 mg PO Q8H PRN (Reason: nausea and vomiting) Qty: 14 0RF sucralfate [Carafate] 100 mg/mL suspension 10 ml PO TID 28 Days Qty: 840 0RF omeprazole 20 mg capsule,delayed release(DR/EC) 20 mg PO DAILY Qty: 30 0RF No Action iron 50 mg iron Tablet 1 tab PO BID Primary Care Provider: Care Physician,No Primary Referrals: Rodrick Kowalski DO [Med Staff - Active Staff] - 3-5 Days Care Physician,No Primary [Primary Care Provider] - Disposition Disposition: Home, Self Care Discharge Date/Time: 12/24/21 11:30
[2021-12-24] MEDS: 0.9% Normal Saline 1,000 ML 1000 ML IV (09:15)
[2021-12-24] MEDS: Morphine 4 MG/ML Syringe IV (09:16)
[2021-12-24] MEDS: Ondansetron 4 MG/2 ML Vial IV (09:16)
[2021-12-24 09:17] LABS: Absolute Lymphocyte Count 1.67 X10^3/uL (0.83-4.51); Absolute Neutrophil Count 6.3 X10^3/uL (2.0-7.7); Basophil# 0.04 X10^3/uL; Basophil% 0.5 % (0-1); Eosinophil# 0.05 X10^3/uL; Eosinophils% 0.6 % (0-5); Hematocrit 35.2 % (37-47); Hemoglobin 11.1 g/dL (12.0-15.0); Lymphocyte # 1.67 X10^3/ul (0.83-4.51); Lymphocyte % 19.5 % (19-41); Mean Corp Hgb Conc 31.5 g/dL (32-36); Mean Corpuscular Hgb 22.6 pg (27.0-32.0); Mean Corpuscular Volume 71.5 fL (81-99); Mean Platelet Vol. 10.9 fl (6.2-12.0); Monocyte# 0.49 X10^3/uL; Monocyte% 5.7 % (0-10); NRBC Flagged by Analyzer 0 % (0-5); Neutrophil # 6.28 X10^3/uL (2.7-7.7); Neutrophil % 73.3 % (47-70); Platelet Count 353 K/mm3 (150-450); RBC Distribution Width CV 17.3 % (11.6-14.6); RBC Distribution Width SD 43.4 fl (35.1-43.9); Red Blood Count 4.92 M/mm3 (4.2-5.4); White Blood Count 8.6 K/mm3 (4.4-11.0)
[2021-12-24 09:29] LABS: ALB/GLOB Ratio 0.9 RATIO (0.9-2.4); AST(SGOT) 15 U/L (15-37); Alanine Aminotransfer ALT/SGPT 20 U/L (13-56); Albumin, Serum 3.9 g/dL (3.2-5.0); Alkaline Phosphatase 71 U/L (45-117); Anion Gap 7 (5-15); BUN 8 mg/dL (7-18); BUN/Creat Ratio 11.1 RATIO (10-20); Calcium,Total 9.2 mg/dL (8.5-10.1); Chloride 109 mmol/L (98-107); Creatinine, Serum 0.72 mg/dL (0.55-1.02); EST Glomerular Filtration Rate 109 mL/min (>60); Est Glom Filt Rate - Afr Amer 132 mL/min (>60); Estimated Creatinine Clearance 111.22 ml/min; Globulin 4.2 g/dL (2.2-4.2); Glucose 98 mg/dL (74-106); Lipase 77 U/L (73-393); Potassium 3.7 mmol/L (3.5-5.1); Protein, Total 8.1 g/dL (6.4-8.2); Sodium Level 140 mmol/L (136-145)
[2021-12-24 09:41] LABS: Internal QC Validated? YES +Cl - CLEAR BKGD; Pregnancy, Serum, hCG Quali. NEGATIVE Negative
[2021-12-24] MEDS: Mag Hydrox/Al Hydrox/Simeth 30 ML UDC PO (11:27)
== END 2021-12-24 11:30 | disposition home or self-care (01) ==
PROVIDERS: Emergency Provider Student in an Organized Health Care Education/Training Program; Visit Provider Student in an Organized Health Care Education/Training Program
DX: K29.70 Gastritis, unspecified, without bleeding (principal); R10.9 Unspecified abdominal pain; R11.2 Nausea with vomiting, unspecified; F17.210 Nicotine dependence, cigarettes, uncomplicated; F12.90 Cannabis use, unspecified, uncomplicated
CPT/HCPCS: 80053; 83690; 84703; 85025; 96361; 96374; 96375; 99284; J7030; A4216; J2405

== ENCOUNTER → 2021-12-29 | Outpatient (CLI) | payer OTHER, MEDICAID, SELFPAY | END | disposition home or self-care (01) | LOC: LAB 09:19 → LABSPEC 09:20 | PROVIDERS: Referring Provider Surgery; Visit Provider Surgery | DX: K59.00 Constipation, unspecified (principal); R11.2 Nausea with vomiting, unspecified; Z90.49 Acquired absence of other specified parts of digestive tract | CPT/HCPCS: 82274; 83630; 87177; 87209; 87506 ==

== ENCOUNTER 2022-01-28 08:54 | Day surgery (SDC) | payer OTHER, MEDICAID, SELFPAY ==
[2022-01-28] VITALS (7 sets, daily range): BP systolic 90–106; BP diastolic 47–64; PULSE 49–74; RESP 16–18; TEMP 36.3–36.9; O2SAT 93–100; BMI 32.9
--- NOTE | 2022-01-28 | GASB_PTH ---
PATIENT: CHANA DE LA O LOC: EN U#:[id number] AGE/SX: 21/ ROOM: RE01/28/[address]: Dr. Earl Thornton MD : 2000 BED: DIS: 01/28/2022 SPEC #: [id number] RECD: 01/28/22 13:09 STATUS: JIMMIE TESS #: [id number] BEATRIZ: 01/28/22 00:[address]: Earl Thornton DEPT: SURGICAL PATHOLOGY RECD BY: Miguel Ángel Ceballos ENTERED: 01/28/22 13:10 SP TYPE: Gastric Bx OTHR DR: No Primary Care Phys Tissues: A - Gastric mucous membrane B - Gastric mucous membrane Procedures: Surgery Specimen Level IV HEADER OPERATION: EGD ([facility] [place]), biopsy PRE-OP DIAGNOSIS: Upper abdominal pain TISSUE SUBMITTED: A ? Antrum biopsy for histo and H. pylori, B ? Gastric cardia biopsy MICROSCOPIC DIAGNOSIS A. Antrum, biopsy: Mild gastritis. See microscopic description and comment. B. Gastric cardia, biopsy: Mild gastritis. See microscopic description. RON:merary 01/29/2022 COMMENT A. The results of immunohistochemistry for Helicobacter pylori will be reported separately ([id number]). MICROSCOPIC DESCRIPTION Slides are reviewed. A & B. The specimen shows fragments of gastric mucosa with chronic inflammatory cell infiltrates in the lamina propria consisting of lymphocytes and plasma cells, consistent with mild chronic gastritis. GROSS DESCRIPTION A - Received in fixative is one container labeled with the patient's name and designated antrum biopsy. The specimen consists of multiple irregular fragments of light hines soft tissue that in aggregate measure 1 x 0.3 x 0.1 cm. The specimen is totally submitted in one cassette. B - Received in fixative is one container labeled with the patient's name and designated gastric cardia biopsy. The specimen consists of one irregular fragment of light hines soft tissue that measures 0.4 x 0.4 x 0.1 cm. The specimen is totally submitted in one cassette. / RON:merary 01/28/2022 TC:3 CPT: 05207 x2
[2022-01-28 09:28] LABS: Internal QC Validated? YES +Cl - CLEAR BKGD; Pregnancy, Urine Negative Negative
[2022-01-28] MEDS: Lactated Ringers 1,000 ML 15 ML IV (09:30)
--- NOTE | 2022-01-28 10:00 | IMM_PTH ---
PATIENT: CHANA DE LA O LOC: [facility] U#:[id number] AGE/SX: 21/F ROOM: RE01/28/[address]: Dr. Earl Thornton MD : 2000 BED: DIS: 01/28/2022 SPEC #: [id number] RECD: 01/28/22 14:06 STATUS: JIMMIE RELuly #: [id number] BEATRIZ: 01/28/22 10:[address]: Earl Thornton DEPT: IMMUNOHISTOCHEMISTRY RECD BY: Kaitlin Gayle ENTERED: 01/28/22 14:06 SP TYPE: IMMUNO OTHR DR: No Primary Care Phys Tissues: A - Stomach, NOS Procedures: H Pylori (initial) PHYSICIAN & INSTITUTION [facility] [id number] SPECIMEN INFORMATION: Tissue Source: A ? Antrum biopsy Clinical Info: Upper abdominal pain Specimen Number: [id number] CPT code: 29972 METHODOLOGY: Deparaffinized sections of prefer/formalin-fixed tissue or PAP/DQ stained slides are incubated with monoclonal/polyclonal antibodies/oligonucleotide probes. Localization is made via biotin free immunoperoxidase method. Appropriate controls are performed and reacted as expected. Results on target cell population are indicated in the following table: RESULTS: ANTIBODY / CLONE RESULT Block A H Pylori (polyclonal) negative These tests were developed and their performance characteristics determined by [facility]. They may not have been cleared or approved by the U.S. Food and Drug Administration. The FDA has determined that such clearance or approval is not necessary. The above immunohistochemical/dualISH markers are ordered and reviewed by the Pathologist. INTERPRETATION: A. Antrum, biopsy: Negative for Helicobacter pylori organisms. SJ:merary 01/29/2022
--- NOTE | 2022-01-28 10:10 | HP.PCM_ITS ---
History and Physical Date of Admission: 01/28/22 Date of Service:? 01/21/22 MR#: [id number] Acct: [id number] Name:CHANA AZAR Rep #: [id number] : 2000 ? ? Provider: Dr. Earl Thornton MD Age/Sex:? 21/F ? ? Location: [facility] Status: Signed Intake Vital Signs ? 12/25/2207:30 Height 5 ft 5 in Weight: 198 lb 12.8 oz BMI 33.0 BP 123/74 H Respiration 17 Pulse 91 Temp 97.5 F L Temp Source Temporal Pulse Oximetry (%) 98 Intake Visit Reasons:?S/P ABDOMINAL PAIN, N&V Chief Complaint: f/u nausea and vomiting and abdominal pain Allergies No Known Allergies Allergy (Verified 01/21/22 15:29) Medications iron 50 mg iron tablet 1 tab PO BID 09/16/21 [History Confirmed 01/21/22] omeprazole 20 mg capsule,delayed release 20 mg PO DAILY #30 caps 12/24/21 [Rx Confirmed 01/21/22] sucralfate 100 mg/mL oral suspension (Carafate) 10 ml PO TID 4 weeks #840 mL 12/24/21 [Rx Confirmed 01/21/22] ondansetron 4 mg disintegrating tablet 4 mg PO Q8H PRN nausea and vomiting #14 tabs 01/21/22 [Rx Confirmed 01/21/22] Subjective Details: Patient reports for follow-up of ongoing upper abdominal discomfort, nausea, and vomiting. Patient is a 21-year-old female, known to me from prior laparoscopic cholecystectomy in September of this year. Her last visit with me was 01/07/2022.? Today she reports that she is vomiting every morning.? This is bilious in character.? She also reports some observation of the previous night's dinner.? She estimates that this was ingested 8 to 9 hours previously.? Along with this nausea and vomiting patient is experiencing upper abdominal pain that is not more intense on either the right or the left.? The symptoms, lastly, are also accompanied with bloating.? Patient notes that there seems to be more pronounced symptoms in the morning and she reports that she is nearly normal by the time the day ends.? She confirms that she is having normal bowel movements.? She and her significant other question whether or not this may be related to gluten as she reports significant pain after tasting a roll.? She does confirm that she has abstained from any marijuana use since our last visit 2 weeks ago.? She reports that she is now out of the previously prescribed omeprazole and Carafate.? She also reports that her symptoms have been refractory to any Tums use. Below is recapitulated from patient's prior visit free to review: Patient is a 21-year-old female, known to me from prior laparoscopic cholecystectomy in September of this year, who presents for complaints of diffuse abdominal pain, nausea, bilious emesis, and constipation.? Her last visit was 12/29/2021.? Reports today again with her significant other and daughter.? Today she states that her abdominal pain has become much more tolerable?rating it a 2/10 and not as constant.? States that today it has found mostly in the left side of her abdomen.? She confirms that she is having normal bowel movements without diarrhea or constipation.? She then revises her earlier statement that things are normal and states that sometimes she will experience her abdominal pain when she starts going #2 but that bowel movements seem to make things better.? Additionally, she reports near constant nausea.? Despite this nausea, she again confirms that she has been able to remain hydrated and does not believe she has had any significant weight loss.? She states that she was able to refrain from marijuana use for a period of 3 to 4 days, but then returned to it as her symptoms persisted.? Lastly, she reports some significant bloating that starts in the morning, but is resolved by the time she goes to bed.? This contradicts her nausea experience which is worse in the evening and better in the morning. Objective Details: Constitutional: Cooperative Abdomen: Nondistended, well-healed port site incisions, soft, mildly tender to palpation across the epigastrium Coding Level of Care Code Off vis,est,level 3 Diagnoses Upper abdominal pain? R10.10 Status post cholecystectomy? Z90.49 Nausea & vomiting? R11.2 PFSH Medical History? 40 weeks gestation of Anemia Anxiety Asthma Depression Nausea & vomiting Spontaneous vaginal delivery Substance abuse Upper abdominal pain Surgical History? H/O dilation and curettage History of adenoidectomy History of cholecystectomy (~09/2021) Hx of tonsillectomy Family History? Father DiabetesMother DepressionGrandmother Breast cancer Social History? household members:? significant other Smoking Status:? Current every day smoker tobacco type: cigarettes and e- cigarettes alcohol intake:? never substance use type:? marijuana Assessment and Plan (No Qualifiers) Assessment and Plan (1) Upper abdominal pain: ?Status:?Acute ?Comment: 21-year-old female under work-up for complaints of upper abdominal pain and associated nausea and vomiting.? Patient unfortunately has relapsed with her symptoms and this is occurred despite cessation of marijuana use.? At this time she has had a number of noninvasive imaging studies, several ER visits, and symptoms have remained refractory to several pharmacologic agents.? Therefore, I believe it is time to pursue EGD for more direct investigation of the relevant anatomy.? Patient is happy with this recommendation and wishes to proceed as soon as feasible. ?Plan: Diagnostic EGD under local MAC. (2) Status post cholecystectomy: ?Status:?Acute ?Comment: Initial uneventful recovery following lap jewel with IOC 09/16/2021 (3) Nausea & vomiting: ?Status:?Acute ?Comment: Patient now out of Zofran.? This is reordered to patient's pharmacy. ?Plan: Plan for diagnostic EGD as discussed above ? ? ? Medications: I have examined the patient the following changes are noted: Patient complains of a difficult week with more abdominal pain, nausea, and vomiting. A opening occurred in our schedule and we are able to accommodate her earlier. Therefore we will plan for EGD under local MAC as discussed above.
--- NOTE | 2022-01-28 10:41 | OP.EGD_ITS ---
Patient Name: Lori Merida Procedure Date: 01/28/2022 10:00 AM Date of : 2000 Age: 21 Procedure: Upper GI endoscopy Indications: Epigastric abdominal pain, Suspected esophageal reflux, Abdominal bloating, Nausea with vomiting Providers: Earl Thornton MD Medicines: See the Anesthesia note for documentation of the administered medications Patient Profile: Refer to note in patient chart for documentation of history and physical. Complications: No immediate complications. Estimated blood loss: Minimal. Procedure: Pre-Anesthesia Assessment: - The heart rate, respiratory rate, oxygen saturations, blood pressure, adequacy of pulmonary ventilation, and response to care were monitored throughout the procedure. After obtaining informed consent, the endoscope was passed under direct vision. Throughout the procedure, the patient's blood pressure, pulse, and oxygen saturations were monitored continuously. The gastroscope was introduced through the mouth, and advanced to the second part of duodenum. The upper GI endoscopy was accomplished without difficulty. The patient tolerated the procedure well. Scope In: 10:14:24 AM Scope Out: 10:30:34 AM Total Procedure Duration Time 0 hours 16 minutes 10 seconds Findings: The duodenal bulb, first portion of the duodenum and second portion of the duodenum were normal. No biopsies or other specimens were collected for this exam. The Z-line was regular and was found 36 cm from the incisors. No biopsies or other specimens were collected for this exam. Diffuse mild inflammation characterized by erythema was found in the entire examined stomach. Biopsies were taken with a cold forceps for histology. Estimated blood loss was minimal. Bilious fluid was found in the gastric body. No biopsies or other specimens were collected for this exam. There is no endoscopic evidence of hiatal hernia, inflammation or mucosal abnormalities in the entire esophagus. Impression: - Normal duodenal bulb, first portion of the duodenum and second portion of the duodenum. No specimens collected. - Z-line regular, 36 cm from the incisors. No specimens collected. - Bile gastritis. Biopsied. - Bilious gastric fluid. No specimens collected. Recommendation: - Discharge patient to home (via wheelchair). - Resume previous diet today. - Continue present medications. - Await pathology results. - Telephone my office for pathology results in 1 week. Procedure Code(s): --- Professional --- 37961, Esophagogastroduodenoscopy, flexible, transoral; with biopsy, single or multiple Diagnosis Code(s): --- Professional --- K29.60, Other gastritis without bleeding R10.13, Epigastric pain R14.0, Abdominal distension (gaseous) R11.2, Nausea with vomiting, unspecified CPT copyright 2017 [employer]. All rights reserved. The codes documented in this report are preliminary and upon rn neurosurgical review may be revised to meet current compliance requirements. Earl Thornton MD 01/28/2022 10:40:26 AM This report has been signed electronically. Number of Addenda: 0 Note Initiated On: 01/28/2022 10:00 AM
--- NOTE | 2022-01-28 10:41 | OP.CCLET_ITS ---
01/28/2022 No Primary Care Physician Re : Upper GI endoscopy procedure for Lori Merida Dear Care Physician This procedure was performed on January. My impressions and recommendations are as follows: Impressions : - Normal duodenal bulb, first portion of the duodenum and second portion of the duodenum. No specimens collected. - Z-line regular, 36 cm from the incisors. No specimens collected. - Bile gastritis. Biopsied. - Bilious gastric fluid. No specimens collected. Recommendations : - Discharge patient to home (via wheelchair). - Resume previous diet today. - Continue present medications. - Await pathology results. - Telephone my office for pathology results in 1 week. My findings are described in the full procedure note, which is enclosed. If I can be of further assistance, please feel free to contact me at Doctor phone number(s): , Work: . Sincerely, Earl Thornton MD 01/28/2022 10:40:26 AM This report has been signed electronically.
--- NOTE | 2022-01-28 11:46 | NURSING ---
pt sleepy, doesn't want to try to eat anything, will continue to check on pt routinely
== END 2022-01-28 13:02 | disposition home or self-care (01) ==
LOC: EN 08:55 → AC 08:56
PROVIDERS: Anesthesiology; Visit Provider Surgery
PROC: 0DJ08ZZ Inspection of Upper Intestinal Tract, Via Natural or Artificial Opening Endoscopic (ICD-10-PCS; CPT 43235; principal; 2022-01-28 09:55)
DX: K29.70 Gastritis, unspecified, without bleeding (principal); R14.0 Abdominal distension (gaseous); Z90.49 Acquired absence of other specified parts of digestive tract
CPT/HCPCS: 43239; 81025; 88305; 88342; J7120; J2405

== ENCOUNTER 2022-02-13 01:32 | Emergency (ER) | payer OTHER, MEDICAID, SELFPAY ==
[2022-02-13 01:35] VITALS: BP 125/87; PULSE 85; RESP 18; TEMP 36.6; O2SAT 97; BMI 32.3
[2022-02-13 02:29] LABS: Absolute Lymphocyte Count 3.88 X10^3/uL (0.83-4.51); Absolute Neutrophil Count 6.2 X10^3/uL (2.0-7.7); Basophil# 0.09 X10^3/uL; Basophil% 0.8 % (0-1); Eosinophil# 0.29 X10^3/uL; Eosinophils% 2.6 % (0-5); Hematocrit 36.8 % (37-47); Hemoglobin 11.6 g/dL (12.0-15.0); Lymphocyte # 3.88 X10^3/ul (0.83-4.51); Lymphocyte % 34.5 % (19-41); Mean Corp Hgb Conc 31.5 g/dL (32-36); Mean Corpuscular Hgb 23.9 pg (27.0-32.0); Mean Corpuscular Volume 75.7 fL (81-99); Mean Platelet Vol. 11.5 fl (6.2-12.0); Monocyte# 0.77 X10^3/uL; Monocyte% 6.8 % (0-10); NRBC Flagged by Analyzer 0 % (0-5); Neutrophil # 6.19 X10^3/uL (2.7-7.7); Platelet Count 325 K/mm3 (150-450); RBC Distribution Width CV 17.9 % (11.6-14.6); RBC Distribution Width SD 47.8 fl (35.1-43.9); Red Blood Count 4.86 M/mm3 (4.2-5.4); White Blood Count 11.3 K/mm3 (4.4-11.0)
[2022-02-13] MEDS: Ondansetron 4 MG/2 ML Vial IV (02:29)
[2022-02-13] MEDS: Dicyclomine 10 MG Capsule 20 MG PO (02:30)
[2022-02-13 02:57] LABS: ALB/GLOB Ratio 0.9 RATIO (0.9-2.4); AST(SGOT) 6 U/L (15-37); Alanine Aminotransfer ALT/SGPT 16 U/L (13-56); Albumin, Serum 3.8 g/dL (3.2-5.0); Alkaline Phosphatase 60 U/L (45-117); Anion Gap 9 (5-15); BUN 8 mg/dL (7-18); BUN/Creat Ratio 9.8 RATIO (10-20); Calcium,Total 9.2 mg/dL (8.5-10.1); Chloride 105 mmol/L (98-107); Creatinine, Serum 0.82 mg/dL (0.55-1.02); EST Glomerular Filtration Rate 94 mL/min (>60); Est Glom Filt Rate - Afr Amer 114 mL/min (>60); Estimated Creatinine Clearance 97.65 ml/min; Globulin 4.1 g/dL (2.2-4.2); Glucose 88 mg/dL (74-106); Lipase 92 U/L (73-393); Potassium 3.6 mmol/L (3.5-5.1); Protein, Total 7.9 g/dL (6.4-8.2); Sodium Level 138 mmol/L (136-145)
--- NOTE | 2022-02-13 04:02 | EDS_ITS ---
HPI HPI - GI History of Present Illness Chief Complaint: Abd Pain Detail of Chief Complaint: Abdominal pain x5 months Informant: patient and spouse/S.O. Abdominal Pain/Flank Pain Onset: Month(s) Context: Sudden Onset Timing: Continuous and Waxes and wanes Quality: Burning Location: Diffuse Current Severity: Severe Maximum Severity: Severe Worsened by: - (Not sure) Relieved by: Nothing Nausea/Vomiting/Emesis GI Symptom: Positive for Nausea and Vomiting Onset: Weeks Diarrhea/Melena/Hematochezia GI Symptom: Positive for Diarrhea; Negative for Melena or Hematochezia Associated Symptoms Associated Symptoms: Negative for Dysuria, Frequency, Hematuria or Urgency Narrative Narrative: Patient is a 21-year-old female who presents with abdominal pain. Abdominal pain is been present for 5 months. She was seen by surgery and told she has bile reflux. She was placed on a new medicine. She is presently on Carafate. She was told by the surgeon she needs to give the medicine time. Patient describes a twisting crampy occasionally burning pain. She denies intolerance to greasy or fried foods. She denies blood or mucus in her stool. She denies black or maroon-colored stool. She denies blood or coffee grounds in her emesis. She denies cardiac or respiratory symptoms. She reports weight loss. She has had a significant weight loss according the patient. She denies thirst, dry mouth or orthostatic symptoms. She denies fever or chills. Significant other told me I want something fucking done about this . The significant other was informed that my job is an emergency physician to dete rmine if she has a condition requiring hospitalization or admission. I would initiate a work-up to determine she will require admission or further testing. Prior similar symptoms: Yes Recent Illness/Hospitalization: Yes [facility] Medical History 40 weeks gestation of Anemia Anxiety Asthma Depression Low iron Marijuana use Nausea & vomiting Spontaneous vaginal delivery Syncope Upper abdominal pain Vapes nicotine containing substance Wears glasses Home Medications sucralfate 100 mg/mL oral suspension (Carafate) 10 ml PO TID 4 weeks #840 mL 12/24/21 [Rx Last Taken Unknown] albuterol sulfate 90 mcg/actuation aerosol inhaler (ProAir HFA) 1 puff inhalation Q6H PRN ASTHMA 01/27/22 [History Last Taken Unknown] ondansetron 4 mg disintegrating tablet 4 mg PO Q8H PRN nausea and vomiting #14 tabs 02/09/22 [Rx Last Taken Unknown] ursodiol 300 mg capsule 300 mg PO BID #30 caps 02/12/22 [Rx Last Taken Unknown] Allergy/AdvReac Type Severity Reaction Status Date / Time No Known Allergies Allergy Verified 02/13/22 01:34 Family History Father Diabetes Mother Depression Grandmother Breast cancer Surgical History H/O dilation and curettage History of adenoidectomy History of cholecystectomy (~09/2021) Hx of tonsillectomy Social History household members: significant other Smoking Status: Current every day smoker tobacco type: e-cigarettes alcohol intake: never substance use type: marijuana ROS ROS ED Constitutional Constitutional ED: Denies chills, fever(s), subjective, sweats or weight loss ENT ENT ED: Denies ear pain, rhinorrhea or sore throat Cardiovascular Cardiovascular: Denies chest pain, palpitations or racing heartbeat Respiratory/Chest Respiratory/Chest: Denies cough, dyspnea or dyspnea on exertion Gastrointestinal Gastrointestinal: Reports abdominal pain, diarrhea, nausea and vomiting; Denies constipation Genitourinary Genitourinary ED: Denies dysuria, hematuria or urinary frequency Musculoskeletal Musculoskeletal: Denies arthralgias, back pain, myalgias or neck pain Integumentary Denies Abrasions or rash Neurologic Neurologic: Denies headache(s) or paresthesias Psychiatric Psychiatric: Reports anxiety and depression Hematologic/Lymphatic Hematologic/Lymphatic: Denies easy bleeding or easy bruising EXAM Physical Exam Const Vital Signs: 02/13/22 01:35 Temperature 97.9 F Temperature Source Temporal Pulse Rate 85 Respiratory Rate 18 Blood Pressure 125/87 H Blood Pressure Mean 99 Pulse Ox 97 Oxygen Delivery Method Room Air Positive well nourished, well developed, obese and unkempt Constitutional Narrative: Patient has a depressed affect. Patient began to cry when my fingers touched her abdominals wall/skin. General Appearance ED: unkempt, well developed and NAD; Negative for pallor Nutritional Appearance: obese HEENT Reports moist mucous membranes HEENT Narrative: Nares patent. Posterior pharynx unremarkable. normocephalic and atraumatic Eyes PERRL and EOMs intact bilaterally General Eye ED: Negative for pale conjunctiva or scleral icterus Neck no lymphadenopathy, supple and no JVD Resp normal respiratory effort and clear to auscultation bilaterally Cardio regular rate, regular rhythm, S1 normal heart sound, S2 normal heart sound and no murmurs GI non-distended and no masses GI Narrative: Patient has pain out of proportion to light tactile stimulus. Auscultation: hypoactive bowel sounds Palpation: soft Back/Spine no CVA tenderness Extremity full ROM General Extremety ED: Negative for edema or tenderness General Extremity: Negative for edema Neuro CN's II-XII intact bilaterally, moves all extremities and no sensory deficits noted Sensorium / Orientation: alert Sensory Exam: sensory level loss detected Psych Appearance: unkempt Attitude: agitated Mood & Affect: depressed and tearful Skin no wounds General Skin Exam: Negative for jaundice or pallor Lesions: no lesions Rashes: no rashes Trauma: abrasion MDM MDM MDM Narrative Medical decision making narrative: CBC was obtained to assess for [facility]&H[facility] to assess renal f unction electrolytes in light of the reported weight loss as well as liver enzymes and lipase. Her work-up is unremarkable. She has chronic anemia. White count is slightly elevated with no shift. This is insignificant. Patient was treated with Bentyl and Zofran. She reports no improvement. Plan is to inform patient to follow-up with her doctor. From an emergency medicine standpoint there is nothing further that needs to be done. In my professional opinion patient needs psychiatric evaluation. My suspicion is that the pain has an effective etiology. Lab Data Attestation: I reviewed the patient's lab results. Labs: Laboratory Results - last 24 hr 02/13/22 02/13/22 01:47 01:47 WBC 11.3 H RBC 4.86 Hgb 11.6 L Hct 36.8 L MCV 75.7 L MCH 23.9 L MCHC 31.5 L RDW Std Deviation 47.8 H RDW Coeff of Connor 17.9 H Plt Count 325 MPV 11.5 Immature Gran % (Auto) 0.300 Neut % (Auto) 55.0 Lymph % (Auto) 34.5 [place] % (Auto) 6.8 Eos % (Auto) 2.6 Baso % (Auto) 0.8 Absolute Neuts (auto) 6.2 Absolute Lymphs (auto) 3.88 Nucleated RBC % 0 Sodium 138 Potassium 3.6 Chloride 105 Carbon Dioxide 24.0 Anion Gap 9 BUN 8 Creatinine 0.82 Estim Creat Clear Calc 97.65 Est GFR (MDRD) Af Amer 114 Est GFR (MDRD) Non-Af 94 BUN/Creatinine Ratio 9.8 L Glucose 88 Calcium 9.2 Total Bilirubin 0.50 AST 6 L ALT 16 Alkaline Phosphatase 60 Total Protein 7.9 Albumin 3.8 Globulin 4.1 Albumin/Globulin Ratio 0.9 Lipase 92 Discharge Plan Triage Chief Complaint: Abd Pain ED Provider: Wilfredo Mendez Dx/Rx/DC Orders Clinical Impression: Abdominal pain of unknown cause, Status post cholecystectomy, Nausea & vomiting, Bile reflux gastritis, Chronic anemia Instructions: ED Abdominal Pain Unkn Cause Fem Prescriptions: No Action ursodiol 300 mg capsule 300 mg PO BID Qty: 30 1RF sucralfate [Carafate] 100 mg/mL suspension 10 ml PO TID 28 Days Qty: 840 0RF albuterol sulfate [ProAir HFA] 90 mcg/actuation Hfa Aerosol Inhaler 1 puff INHALATION Q6H PRN (Reason: ASTHMA) ondansetron 4 mg tablet,disintegrating 4 mg PO Q8H PRN (Reason: nausea and vomiting) Qty: 14 0RF Primary Care Provider: Earl Thornton Referrals: Earl Thornton MD [Primary Care Provider] - 1 Week if not improving Disposition Disposition: Home, Self Care
== END 2022-02-13 04:21 | disposition home or self-care (01) ==
PROVIDERS: Emergency Provider Emergency Medicine; PCP Surgery; Visit Provider Emergency Medicine
DX: R10.9 Unspecified abdominal pain (principal); K29.70 Gastritis, unspecified, without bleeding; R63.4 Abnormal weight loss; D64.9 Anemia, unspecified; R19.7 Diarrhea, unspecified; E66.9 Obesity, unspecified; F17.290 Nicotine dependence, other tobacco product, uncomplicated; Z79.899 Other long term (current) drug therapy; Z90.49 Acquired absence of other specified parts of digestive tract
CPT/HCPCS: 80053; 83690; 85025; 96374; 99284; A4216; J2405

== ENCOUNTER 2022-02-13 15:38 | Emergency (ER) | payer OTHER, MEDICAID, SELFPAY ==
[2022-02-13 15:39] VITALS: BP 134/95; PULSE 131; RESP 28; TEMP 35.8; O2SAT 100; BMI 32.3
--- NOTE | 2022-02-13 15:55 | CT_ITS ---
EXAM: CT ABDOMEN AND PELVIS WITHOUT INTRAVENOUS CONTRAST CLINICAL INDICATION: Pain TECHNIQUE: Helically acquired images were obtained of the abdomen and pelvis without intravenous contrast. This CT exam was performed using one or more of the following dose reduction techniques: automated exposure control, adjustment of the mA and/or kV according to patient size, and/or use of iterative reconstruction technique. This report was created using [employer] report generation technology. COMPARISON: 08/23/2021 FINDINGS: LOWER THORAX: Unremarkable. Lung bases are clear. No cardiomegaly. No significant pericardial effusion. ABDOMEN: LIVER: Unremarkable. Homogeneous. GALLBLADDER AND BILE DUCTS: There are surgical clips from a cholecystectomy. No intra- or extrahepatic biliary ductal dilation. PANCREAS: Unremarkable. No focal cystic mass. SPLEEN: Unremarkable. Normal size without focal cystic or solid mass. ADRENALS: Unremarkable. No nodules. KIDNEYS AND URETERS: Unremarkable. Normal renal size and position. No hydronephrosis. STOMACH AND BOWEL: Unremarkable. No stomach or bowel distention. No focal inflammatory change. PELVIS: APPENDIX: No evidence of acute appendicitis. BLADDER: Unremarkable. REPRODUCTIVE: There is a 2.0 x 1.5 cm mixed density mass that has fat and calcification in the right hemipelvis. This was not seen on the previous exam and may simply represent a loop of bowel adjacent to a phlebolith and mesenteric fat in the right hemipelvis or possibly an ovarian dermoid. If indicated further evaluation with ultrasound may be beneficial. ABDOMEN and PELVIS: INTRAPERITONEAL SPACE: Unremarkable. No ascites or other fluid collection. No free air. BONES/JOINTS: Unremarkable. No suspicious lytic or blastic abnormality. SOFT TISSUES: Unremarkable. No discrete abdominal or pelvic wall hernia. VASCULATURE: Unremarkable. Abdominal aorta is non-dilated. LYMPH NODES: Unremarkable. No enlarged lymph nodes. CT/Abdomen/Pelvis without Cont IMPRESSION: No acute abnormalities in the abdomen or pelvis. There is a questionable right ovarian dermoid present. Further evaluation with ultrasound may be beneficial. Electronically Signed: Alonso Ford MD at 17:33 EST ,
--- NOTE | 2022-02-13 15:57 | ED.VIS.GI ---
HPI HPI - GI History of Present Illness Chief Complaint: Abd Pain Informant: patient Abdominal Pain/Flank Pain Onset: Month(s) Context: Gradual Onset Timing: Intermittent Quality: Aching, Burning and Cramping Location: Diffuse Current Severity: Moderate Maximum Severity: Moderate Worsened by: Nothing Relieved by: Nothing Nausea/Vomiting/Emesis GI Symptom: Positive for Nausea and Vomiting Onset: Month(s) Severity: Mild Diarrhea/Melena/Hematochezia GI Symptom: Negative for Diarrhea, Melena or Hematochezia Associated Symptoms Associated Symptoms: Negative for Dysuria, Frequency, Hematuria or Urgency Narrative Narrative: 31-year-old female history of prior cholecystectomy and D&C. Patient's had abdominal pain for the last 5 months since she has had her gallbladder out September. States that she has been having nausea and vomiting. Has about a 15 pound weight loss in the last 5 months. No diarrhea. Constipation. No fever. No dysuria. Currently not . She had a negative CT in August but no imaging since the surgery. Denies any fever or chills. Prior similar symptoms: Yes Recent Illness/Hospitalization: No PFSH PFSH Medical History 40 weeks gestation of Anemia Anxiety Asthma Depression Low iron Marijuana use Nausea & vomiting Spontaneous vaginal delivery Syncope Upper abdominal pain Vapes nicotine containing substance Wears glasses Home Medications sucralfate 100 mg/mL oral suspension (Carafate) 10 ml PO TID 4 weeks #840 mL 12/24/21 [Rx Last Taken Unknown] albuterol sulfate 90 mcg/actuation aerosol inhaler (ProAir HFA) 1 puff inhalation Q6H PRN ASTHMA 01/27/22 [History Last Taken Unknown] ondansetron 4 mg disintegrating tablet 4 mg PO Q8H PRN nausea and vomiting #14 tabs 02/09/22 [Rx Last Taken Unknown] ursodiol 300 mg capsule 300 mg PO BID #30 caps 02/12/22 [Rx Last Taken Unknown] ondansetron 4 mg disintegrating tablet 4 mg PO Q6H PRN nausea and vomiting #10 tabs 02/13/22 [Rx Last Taken Unknown] Allergy/AdvReac Type Severity Reaction Status Date / Time No Known Allergies Allergy Verified 02/13/22 15:38 Family History Father Diabetes Mother Depression Grandmother Breast cancer Surgical History H/O dilation and curettage History of adenoidectomy History of cholecystectomy (~09/2021) Hx of tonsillectomy Social History household members: significant other Smoking Status: Current every day smoker tobacco type: e-cigarettes alcohol intake: never substance use type: marijuana ROS ROS ED ROS Narrative Diffuse abdominal pain. Nausea and vomiting. Weight loss. Review of Systems ROS Unobtainable: Denies due to encephalopathy Constitutional Constitutional ED: Denies chills or fever(s) ENT ENT ED: Denies ear pain Cardiovascular Cardiovascular: Denies chest pain Respiratory/Chest Respiratory/Chest: Denies cough or dyspnea Gastrointestinal Gastrointestinal: Reports abdominal pain, constipation, nausea and vomiting; Denies diarrhea or melena Genitourinary Genitourinary ED: Denies dysuria or hematuria Musculoskeletal Musculoskeletal: Denies arthralgias Integumentary Denies abscess Neurologic Neurologic: Denies headache(s) Psychiatric Psychiatric: Denies anxiety Endocrine Endocrinology: Denies polydipsia Hematologic/Lymphatic Hematologic/Lymphatic: Denies easy bleeding Allergic/Immunologic Allergic/Immunologic ED: Denies mouth swelling or tongue swelling EXAM Physical Exam Narrative Exam Narrative: 21-year-old female. Vital signs are stable and afebrile. Her heart rates 131. She is upset and anxious. She is in all fours on the bed nauseated. She is not actively vomiting at this time. Significant other is in the room. H EENT exam unremarkable. Moist [place] membranes. Neck nontender no lymphadenopathy. Lungs clear to auscultation bilaterally. Heart tachycardic no murmur. Abdomen soft. Nondistended pain out of proportion to exam. Diffusely tender. No distention. No obstruction. No hernia or mass. Not specifically localized to the right upper or right lower quadrants. Moving all 4 extremities. Neurovascularly intact. Nontender no edema. Back nontender. Neurologic exam unremarkable. Const Vital Signs: 02/13/22 15:39 Temperature 96.4 F L Temperature Source Temporal Pulse Rate 131 H Respiratory Rate 28 H Blood Pressure 134/95 H Blood Pressure Mean 108 Pulse Ox 100 Oxygen Delivery Method Room Air Positive well nourished, well developed and obese; Negative for cachectic, contractures or unkempt General Appearance ED: well developed and NAD; Negative for unkempt, cachectic, contractures or pallor Nutritional Appearance: obese; Negative for cachectic HEENT Reports moist mucous membranes normocephalic and atraumatic; Negative for trauma or tenderness Eyes PERRL and EOMs intact bilaterally General Eye ED: Negative for pale conjunctiva, scleral icterus or other Neck no lymphadenopathy and no JVD General: Negative for tenderness Carotids: Negative for other Lymph Lymphatic: Negative for other Resp normal respiratory effort and clear to auscultation bilaterally Effort and Inspection: Negative for respiratory distress Auscultation: Negative for rales, rhonchi or wheezes Cardio regular rhythm, S1 normal heart sound, S2 normal heart sound and no murmurs; Negative for regular rate Rate: tachycardic Rhythm: Negative for abnormal rhythm GI non-distended and no masses; Negative for non-tender Inspection: Negative for abdominal distention Auscultation: normoactive bowel sounds Palpation: soft and tender; Negative for guarding, rigid, hepatomegaly, splenomegaly, hernia, mass, pulsatile mass or rebound tenderness present Back/Spine no CVA tenderness General Back: Negative for CVA tenderness Cervical Spine: Negative for cervical spine tenderness Thoracic Spine / Upper Back: Negative for thoracic spinal tenderness Lumbar Spine / Lower Back: Negative for lumbar spinal tenderness Coccyx: Negative for other Extremity full ROM General Extremety ED: Negative for edema or tenderness General Extremity: Negative for edema Neuro CN's II-XII intact bilaterally and moves all extremities Sensorium / Orientation: alert, oriented to person, oriented to place and oriented to time; Negative for orientation impaired, confused, lethargic or stuporous Motor Exam: strength 5/5 throughout Psych mental status grossly normal and thought process normal Appearance: Negative for unkempt Attitude: No agitated Mood & Affect: Negative for depressed, anxious or tearful Skin no wounds General Skin Exam: Negative for jaundice or pallor Lesions: no lesions Rashes: no rashes Trauma: Negative for abrasion Nails: Negative for discolored MDM MDM MDM Narrative Medical decision making narrative: 21-year-old female complaining of abdominal pain for 5 months since her laparoscopic hysterectomy in September. Recurrent nausea and vomiting. Reportedly 15 pound weight loss. Exam is benign other than her pain seems to be out of proportion to the exam itself. There is no distention. Diffuse but nonlocalizing tenderness. Patient be treated with IV fluids, Zofran for nausea. Toradol for her pain. I CAT scan and labs are pending. Repeat exam patient doing well at 6:58 PM. She has been able to hold down fluids. Her labs and CAT scan are unremarkable other than a possible dermoid cyst. To be discharged home to follow-up with her primary care physician. Zofran as needed for nausea. Lab Data Attestation: I reviewed the patient's lab results. Lab results narrative: CBC normal. White count 7.5. H&H 12.637. Platelets 278. Electrolytes potassium 3.4 gap of 8 normal BUN and creatinine of 8 and 0.8. Liver enzymes unremarkable. Lipase normal at 69. test negative. Unremarkable labs. CT the abdomen this is read by the radiologist shows no acute abnormality. There is a questionable right ovarian dermoid. Labs: Laboratory Results - last 24 hr 02/13/22 02/13/22 02/13/22 16:09 16:09 16:09 WBC 7.5 RBC 5.03 Hgb 12.6 Hct 37.5 MCV 74.6 L MCH 25.0 L MCHC 33.6 D RDW Std Deviation 46.9 H RDW Coeff of Connor 17.7 H Plt Count 278 MPV 10.5 Immature Gran % (Auto) 0.300 Neut % (Auto) 66.5 Lymph % (Auto) 24.1 [place] % (Auto) 6.5 Eos % (Auto) 1.9 Baso % (Auto) 0.7 Absolute Neuts (auto) 5.0 Absolute Lymphs (auto) 1.81 Nucleated RBC % 0 Sodium 138 Potassium 3.4 L Chloride 107 Carbon Dioxide 23.0 Anion Gap 8 BUN 8 Creatinine 0.86 Estim Creat Clear Calc 93.11 Est GFR (MDRD) Af Amer 106 Est GFR (MDRD) Non-Af 88 BUN/Creatinine Ratio 9.3 L Glucose 90 Calcium 9.4 Total Bilirubin 0.70 AST 9 L ALT 14 Alkaline Phosphatase 63 Total Protein 8.2 Albumin 4.2 Globulin 4.0 Albumin/Globulin Ratio 1.0 Lipase 69 L Serum , Qual NEGATIVE Radiography Diagnostic Testing: Clinical Impression(s) from Imaging Studies Abdomen/Pelvis CT 02/13/22 15:55 IMPRESSION: No acute abnormalities in the abdomen or pelvis. There is a questionable right ovarian dermoid present. Further evaluation with ultrasound may be beneficial. Electronically Signed: Alonso Ford MD at 17:33 EST , CAT scan of the abdomen and pelvis is read by the radiologist and reviewed by me. Discharge Plan Triage Chief Complaint: Abd Pain ED Provider: Marcos Arizmendi Dx/Rx/DC Orders Clinical Impression: Nausea & vomiting, Abdominal pain of unknown cause Instructions: Abdominal Pain, ED Vomiting (Adult) Prescriptions: New ondansetron 4 mg tablet,disintegrating 4 mg PO Q6H PRN (Reason: nausea and vomiting) Qty: 10 0RF No Action ursodiol 300 mg capsule 300 mg PO BID Qty: 30 1RF sucralfate [Carafate] 100 mg/mL suspension 10 ml PO TID 28 Days Qty: 840 0RF albuterol sulfate [ProAir HFA] 90 mcg/actuation Hfa Aerosol Inhaler 1 puff INHALATION Q6H PRN (Reason: ASTHMA) ondansetron 4 mg tablet,disintegrating 4 mg PO Q8H PRN (Reason: nausea and vomiting) Qty: 14 0RF Primary Care Provider: Earl Thornton Referrals: Earl Thornton MD [Primary Care Provider] - As soon as possible Activity Restrictions/Additional Instructions: Follow-up with Dr. Earl Thornton or your primary care physician if not improving. Your labs and CAT scan today were unremarkable. We do not have a specific cause for your pain. Zofran as needed for nausea which you may swallow or let dissolve on your tongue. Plenty of fluids and rest. Start with a bland diet and increase it slowly as tolerated. Disposition Disposition: Home, Self Care
[2022-02-13 16:19] LABS: Absolute Lymphocyte Count 1.81 X10^3/uL (0.83-4.51); Basophil# 0.05 X10^3/uL; Basophil% 0.7 % (0-1); Eosinophil# 0.14 X10^3/uL; Eosinophils% 1.9 % (0-5); Hematocrit 37.5 % (37-47); Hemoglobin 12.6 g/dL (12.0-15.0); Lymphocyte # 1.81 X10^3/ul (0.83-4.51); Lymphocyte % 24.1 % (19-41); Mean Corp Hgb Conc 33.6 g/dL (32-36); Mean Corpuscular Volume 74.6 fL (81-99); Mean Platelet Vol. 10.5 fl (6.2-12.0); Monocyte# 0.49 X10^3/uL; Monocyte% 6.5 % (0-10); NRBC Flagged by Analyzer 0 % (0-5); Neutrophil # 4.99 X10^3/uL (2.7-7.7); Neutrophil % 66.5 % (47-70); Platelet Count 278 K/mm3 (150-450); RBC Distribution Width CV 17.7 % (11.6-14.6); RBC Distribution Width SD 46.9 fl (35.1-43.9); Red Blood Count 5.03 M/mm3 (4.2-5.4); White Blood Count 7.5 K/mm3 (4.4-11.0)
[2022-02-13 16:35] LABS: Internal QC Validated? YES +Cl - CLEAR BKGD; Pregnancy, Serum, hCG Quali. NEGATIVE Negative
[2022-02-13] MEDS: Ondansetron 4 MG/2 ML Vial IV (16:36)
[2022-02-13] MEDS: 0.9% Normal Saline 1,000 ML 1000 ML IV (16:36)
[2022-02-13] MEDS: Ketorolac 30 MG/ML Syringe IV (16:36)
[2022-02-13 16:47] LABS: AST(SGOT) 9 U/L (15-37); Alanine Aminotransfer ALT/SGPT 14 U/L (13-56); Albumin, Serum 4.2 g/dL (3.2-5.0); Alkaline Phosphatase 63 U/L (45-117); Anion Gap 8 (5-15); BUN 8 mg/dL (7-18); BUN/Creat Ratio 9.3 RATIO (10-20); Calcium,Total 9.4 mg/dL (8.5-10.1); Chloride 107 mmol/L (98-107); Creatinine, Serum 0.86 mg/dL (0.55-1.02); EST Glomerular Filtration Rate 88 mL/min (>60); Est Glom Filt Rate - Afr Amer 106 mL/min (>60); Estimated Creatinine Clearance 93.11 ml/min; Glucose 90 mg/dL (74-106); Lipase 69 U/L (73-393); Potassium 3.4 mmol/L (3.5-5.1); Protein, Total 8.2 g/dL (6.4-8.2); Sodium Level 138 mmol/L (136-145)
== END 2022-02-13 19:16 | disposition home or self-care (01) ==
PROVIDERS: Emergency Provider Emergency Medicine; PCP Surgery; Visit Provider Emergency Medicine
DX: R10.9 Unspecified abdominal pain (principal); R11.2 Nausea with vomiting, unspecified; R63.4 Abnormal weight loss; F17.290 Nicotine dependence, other tobacco product, uncomplicated; Z79.899 Other long term (current) drug therapy; Z90.49 Acquired absence of other specified parts of digestive tract
CPT/HCPCS: 74176; 80053; 83690; 84703; 85025; 96361; 96374; 96375; 99283; J7030; A4216; J2405

== ENCOUNTER 2022-05-04 12:24 | Emergency (ER) | payer OTHER, MEDICAID, SELFPAY ==
[2022-05-04 12:25] VITALS: BP 133/84; PULSE 84; RESP 18; TEMP 35.6; O2SAT 100
== END 2022-05-04 13:47 | disposition left against medical advice (07) ==
LOC: ED 14:07
PROVIDERS: PCP Surgery
DX: Z53.21 Procedure and treatment not carried out due to patient leaving prior to being seen by health care provider (principal)

== ENCOUNTER 2022-05-05 06:35 | Emergency (ER) | payer OTHER, MEDICAID, SELFPAY ==
[2022-05-05 06:36] VITALS: BP 139/107; PULSE 86; RESP 20; TEMP 37.1; O2SAT 96; BMI 32.8
--- NOTE | 2022-05-05 07:09 | EDS_ITS ---
HPI HPI - GI History of Present Illness Chief Complaint: Abd Pain Informant: patient Abdominal Pain/Flank Pain Onset: Days Context: Gradual Onset Timing: Continuous Location: Epigastric Current Severity: Moderate Maximum Severity: Moderate Worsened by: Nothing Relieved by: Nothing Nausea/Vomiting/Emesis GI Symptom: Positive for Nausea and Vomiting Onset: Days Quality: Positive for Nonbilious Severity: Mild Diarrhea/Melena/Hematochezia GI Symptom: Negative for Diarrhea, Melena or Hematochezia Associated Symptoms Associated Symptoms: Negative for Dysuria, Frequency or Hematuria Narrative Narrative: 21-year-old female no significant past medical history. She has had a prior cholecystectomy around September of last year, prior D&C and tonsillectomy. States she has had intermittent epigastric abdominal pain since her laparoscopic cholecystectomy. States the last 3 days she has had nausea and vomiting with upper abdominal pain. She denies any fever or chills. No diarrhea. No melena. No dysuria. No vaginal bleeding. No fever. She has had symptoms like this before. Prior similar symptoms: Yes Recent Illness/Hospitalization: No PFSH PFSH Medical History 40 weeks gestation of Anemia Anxiety Asthma Depression Low iron Marijuana use Nausea & vomiting Spontaneous vaginal delivery Syncope Upper abdominal pain Vapes nicotine containing substance Wears glasses Home Medications albuterol sulfate 90 mcg/actuation aerosol inhaler (ProAir HFA) 1 puff inhalation Q6H PRN ASTHMA 01/27/22 [History Last Taken Unknown] ondansetron 4 mg disintegrating tablet 4 mg PO Q6H PRN nausea and vomiting #10 tabs 02/13/22 [Rx Last Taken Unknown] metoclopramide HCl 10 mg tablet (Reglan) 10 mg PO Q6H PRN nausea and vomiting #90 tabs 02/17/22 [Rx Last Taken Unknown] sucralfate 100 mg/mL oral suspension (Carafate) 10 ml PO TID 4 weeks #840 mL 02/17/22 [Rx Last Taken Unknown] ursodiol 300 mg capsule 300 mg PO BID #30 caps 04/05/22 [Rx Last Taken Unknown] pantoprazole 40 mg tablet,delayed release 40 mg PO DAILY #30 tabs 04/21/22 [Rx Last Taken Unknown] ondansetron 4 mg disintegrating tablet 4 mg PO Q6H PRN nausea and vomiting #10 tabs 05/05/22 [Rx Last Taken Unknown] Allergy/AdvReac Type Severity Reaction Status Date / Time No Known Allergies Allergy Verified 05/04/22 12:26 Family History Father Diabetes Mother Depression Grandmother Breast cancer Surgical History H/O dilation and curettage History of adenoidectomy History of cholecystectomy (~09/2021) Hx of tonsillectomy Social History household members: significant other Smoking Status: Current every day smoker tobacco type: e-cigarettes alcohol intake: never substance use type: marijuana ROS ROS ED ROS Narrative Nausea and vomiting. Epigastric abdominal pain. Review of Systems ROS Unobtainable: Denies due to encephalopathy Constitutional Constitutional ED: Denies chills or fever(s) ENT ENT ED: Denies ear pain Cardiovascular Cardiovascular: Denies chest pain Respiratory/Chest Respiratory/Chest: Denies cough or dyspnea Gastrointestinal Gastrointestinal: Reports abdominal pain, nausea and vomiting; Denies constipation, diarrhea or melena Genitourinary Genitourinary ED: Denies dysuria or hematuria Musculoskeletal Musculoskeletal: Denies arthralgias Integumentary Denies abscess Neurologic Neurologic: Denies headache(s) Psychiatric Psychiatric: Denies anxiety Endocrine Endocrinology: Denies polydipsia Hematologic/Lymphatic Hematologic/Lymphatic: Denies easy bleeding Allergic/Immunologic Allergic/Immunologic ED: Denies mouth swelling EXAM Physical Exam Narrative Exam Narrative: 21-year-old female walking out of the bathroom as I enter the room. Complaining of epigastric pain. Vital signs stable afebrile. She does not look septic or toxic. She does look mildly dehydrated. H EENT exam mild dry mucous membranes otherwise unremarkable. Neck nontender no lymphadenopathy. Lungs clear to auscultation bilaterally. Heart regular rhythm rate about 85 no murmur. Abdomen soft, nondistended, normal bowel sounds no peritoneal signs. There is no distention. No signs of obstruction. No hernia. Well-healed laparoscopic surgical scars. She points to epigastric pain there is really no significant reproducible tenderness in either the epigastric or right upper quadrant. There is absolutely no right lower, suprapubic or left lower quadrant tenderness. There are no peritoneal signs. Soft with normal bowel sounds. Moving all 4 extremities. Nontender no edema. Back normal. Nontender Const Vital Signs: 05/05/22 06:36 Temperature 98.7 F Temperature Source Temporal Pulse Rate 86 Respiratory Rate 20 H Blood Pressure 139/107 H Blood Pressure Mean 117 Pulse Ox 96 Oxygen Delivery Method Room Air Positive well nourished and well developed; Negative for cachectic, contractures or unkempt General Appearance ED: well developed and NAD; Negative for unkempt, cachectic, contractures or pallor Nutritional Appearance: Negative for cachectic HEENT Reports dry mucous membranes; Denies moist mucous membranes normocephalic and atraumatic; Negative for trauma or tenderness Mouth ED: Yes dry mucous membranes Mouth: dry mucous membranes Eyes PERRL and EOMs intact bilaterally General Eye ED: Negative for pale conjunctiva or scleral icterus Neck no lymphadenopathy, supple and no JVD General: Negative for tenderness Lymph Lymphatic: Negative for other Resp normal respiratory effort and clear to auscultation bilaterally Effort and Inspection: Negative for respiratory distress Auscultation: Negative for rales, rhonchi or wheezes Cardio regular rate, regular rhythm, S1 normal heart sound, S2 normal heart sound and no murmurs Rate: Negative for bradycardia Rhythm: Negative for abnormal rhythm GI non-tender, non-distended and no masses Inspection: Negative for abdominal distention Auscultation: normoactive bowel sounds Palpation: soft; Negative for tender, guarding or rigid Back/Spine no CVA tenderness General Back: Negative for CVA tenderness Cervical Spine: Negative for cervical spine tenderness Thoracic Spine / Upper Back: Negative for thoracic spinal tenderness Lumbar Spine / Lower Back: Negative for lumbar spinal tenderness Coccyx: Negative for other Extremity full ROM General Extremety ED: Negative for edema or tenderness General Extremity: Negative for edema Neuro CN's II-XII intact bilaterally and moves all extremities Sensorium / Orientation: alert, oriented to person, oriented to place and oriented to time; Negative for orientation impaired, confused, lethargic or stuporous Motor Exam: strength 5/5 throughout Psych mental status grossly normal and thought process normal Appearance: Negative for unkempt Attitude: No agitated Mood & Affect: Negative for depressed or anxious Skin no wounds General Skin Exam: Negative for jaundice or pallor Lesions: no lesions Rashes: no rashes Trauma: Negative for abrasion Nails: Negative for discolored MDM MDM MDM Narrative Medical decision making narrative: 21-year-old female complaining epigastric abdominal pain. Prior laparoscopic cholecystectomy last year. Abdomen is benign. She will be treated morphine for pain Zofran for nausea. Given a liter normal saline for nausea vomiting or dehydration. I will do screening labs. I reviewed her old charts and her old work-ups. She had normal labs in February and a CT of the abdomen pelvis at that time that only showed a possible dermoid cyst in the pelvis. I do not think she needs imaging at this time unless her labs are significantly abnormal. Repeat exam at 8:20 AM patient doing well. She is calm now. Pain is better after initially morphine and Zofran for nausea and then she just had a dose of Toradol. She and I talked she has had frequent nausea and vomiting for months. I discussed with her her labs specifically the lipase being elevated but typically this would not be consistent with acute pancreatitis. She has no back pain. I spoke to Dr. Young Riddle on-call for her surgeon Dr. Earl Thornton. Patient will follow-up with them and get another lipase level checked to ensure that she is not developing acute pancreatitis. Fluids. I will write her for Zofran for nausea. She will use Tylenol for pain. She will be given work issues for today. On repeat exam her abdomen is benign and nondistended. No peritoneal signs. No significant tenderness. History & Record Review Discussion w/independent historian: Patient Lab Data Attestation: I reviewed the patient's lab results. Lab results narrative: CBC shows white count 10.7. H&H 12.5 and 38. Platelets 416. Electrolytes show potassium 3.3 anion gap of 7 normal BUN of 16 creatinine 0.8. Liver enzymes are normal. Lipase is slightly elevated at 561. Most likely from her vomiting. I would not consider that consistent with pancreatitis as of yet. test is negative. Labs: Laboratory Results - last 24 hr 05/05/22 05/05/22 05/05/22 07:21 07:21 07:21 WBC 10.7 RBC 4.88 Hgb 12.5 Hct 38.7 MCV 79.3 L MCH 25.6 L MCHC 32.3 RDW Std Deviation 42.8 RDW Coeff of Connor 14.9 H Plt Count 416 MPV 10.8 Immature Gran % (Auto) 0.300 Neut % (Auto) 60.1 Lymph % (Auto) 30.8 [place] % (Auto) 5.9 Eos % (Auto) 2.4 Baso % (Auto) 0.5 Absolute Neuts (auto) 6.4 Absolute Lymphs (auto) 3.28 Nucleated RBC % 0 Sodium 139 Potassium 3.3 L Chloride 108 H Carbon Dioxide 24.0 Anion Gap 7 BUN 6 L Creatinine 0.82 Estim Creat Clear Calc 97.65 Est GFR (MDRD) Af Amer 114 Est GFR (MDRD) Non-Af 94 BUN/Creatinine Ratio 7.4 L Glucose 97 Calcium 9.1 Total Bilirubin 0.50 AST 11 L ALT 17 Alkaline Phosphatase 67 Total Protein 7.8 Albumin 4.1 Globulin 3.7 Albumin/Globulin Ratio 1.1 Lipase 561 H Serum , Qual NEGATIVE Discharge Plan Triage Chief Complaint: Abd Pain ED Provider: Marcos Arizmendi Dx/Rx/DC Orders Clinical Impression: Nausea & vomiting, Abdominal pain Instructions: Abdominal Pain, ED Vomiting (Adult) Prescriptions: New ondansetron 4 mg tablet,disintegrating 4 mg PO Q6H PRN (Reason: nausea and vomiting) Qty: 10 0RF No Action ursodiol 300 mg capsule 300 mg PO BID Qty: 30 1RF albuterol sulfate [ProAir HFA] 90 mcg/actuation Hfa Aerosol Inhaler 1 puff INHALATION Q6H PRN (Reason: ASTHMA) ondansetron 4 mg tablet,disintegrating 4 mg PO Q6H PRN (Reason: nausea and vomiting) Qty: 10 0RF sucralfate [Carafate] 100 mg/mL suspension 10 ml PO TID 28 Days Qty: 840 0RF metoclopramide HCl [Reglan] 10 mg tablet 10 mg PO Q6H PRN (Reason: nausea and vomiting) Qty: 90 0RF pantoprazole 40 mg tablet,delayed release (DR/EC) 40 mg PO DAILY Qty: 30 1RF Primary Care Provider: Care Physician,No Primary Referrals: Earl Thornton MD [Med Staff - Active Staff] - 3-5 Days if not improving Activity Restrictions/Additional Instructions: Plenty of fluids and rest. Increase your diet slowly as tolerated. Zofran as needed for nausea. Follow-up with your doctor if not improving. Follow-up with Dr. Thornton so they can recheck a second lipase level to ensure you are not developing pancreatitis. It was elevated today but could be secondary just all the vomiting. Tylenol for pain. Disposition Disposition: Home, Self Care
[2022-05-05 07:26] LABS: Absolute Lymphocyte Count 3.28 X10^3/uL (0.83-4.51); Absolute Neutrophil Count 6.4 X10^3/uL (2.0-7.7); Basophil# 0.05 X10^3/uL; Basophil% 0.5 % (0-1); Eosinophil# 0.26 X10^3/uL; Eosinophils% 2.4 % (0-5); Hematocrit 38.7 % (37-47); Hemoglobin 12.5 g/dL (12.0-15.0); Lymphocyte # 3.28 X10^3/ul (0.83-4.51); Lymphocyte % 30.8 % (19-41); Mean Corp Hgb Conc 32.3 g/dL (32-36); Mean Corpuscular Hgb 25.6 pg (27.0-32.0); Mean Corpuscular Volume 79.3 fL (81-99); Mean Platelet Vol. 10.8 fl (6.2-12.0); Monocyte# 0.63 X10^3/uL; Monocyte% 5.9 % (0-10); NRBC Flagged by Analyzer 0 % (0-5); Neutrophil % 60.1 % (47-70); Platelet Count 416 K/mm3 (150-450); RBC Distribution Width CV 14.9 % (11.6-14.6); RBC Distribution Width SD 42.8 fl (35.1-43.9); Red Blood Count 4.88 M/mm3 (4.2-5.4); White Blood Count 10.7 K/mm3 (4.4-11.0)
[2022-05-05] MEDS: 0.9% Normal Saline 1,000 ML 1000 ML IV (07:28)
[2022-05-05] MEDS: Ondansetron 4 MG/2 ML Vial IV (07:28)
[2022-05-05] MEDS: morphine 8 MG/ML Syringe 6 MG IV (07:29)
[2022-05-05 07:36] LABS: Internal QC Validated? YES +Cl - CLEAR BKGD; Pregnancy, Serum, hCG Quali. NEGATIVE Negative
[2022-05-05 07:53] LABS: ALB/GLOB Ratio 1.1 RATIO (0.9-2.4); AST(SGOT) 11 U/L (15-37); Alanine Aminotransfer ALT/SGPT 17 U/L (13-56); Albumin, Serum 4.1 g/dL (3.2-5.0); Alkaline Phosphatase 67 U/L (45-117); Anion Gap 7 (5-15); BUN 6 mg/dL (7-18); BUN/Creat Ratio 7.4 RATIO (10-20); Calcium,Total 9.1 mg/dL (8.5-10.1); Chloride 108 mmol/L (98-107); Creatinine, Serum 0.82 mg/dL (0.55-1.02); EST Glomerular Filtration Rate 94 mL/min (>60); Est Glom Filt Rate - Afr Amer 114 mL/min (>60); Estimated Creatinine Clearance 97.65 ml/min; Globulin 3.7 g/dL (2.2-4.2); Glucose 97 mg/dL (74-106); Lipase 561 U/L (73-393); Potassium 3.3 mmol/L (3.5-5.1); Protein, Total 7.8 g/dL (6.4-8.2); Sodium Level 139 mmol/L (136-145)
[2022-05-05] MEDS: Ketorolac 30 MG/ML Syringe IV (08:11)
[2022-05-05 08:35] VITALS: BP 117/68; PULSE 67; RESP 16; O2SAT 98
--- NOTE | 2022-05-05 08:35 | ED.RN ---
THIS RN WENT IN TO DISCHARGE, PT IS WATCHING VIDEOS ON HER PHONE. THIS RN OBTAINS D/C VS AND REVIEWS D/C PAPERWORK. PT VERBALIZES UNDERSTANDING AND DENIES ANY FURTHER QUESTIONS. THEN PT BEGINS TO COMPLAIN OF ABDOMINAL PAIN, REPORTS THAT THE MORPHINE IS NOT HELPING AND SHE DOES NOT WANT TO LEAVE IN PAIN. PT REPORTS THIS PAIN IS NOT IMPROVING AND SHE WANTS TO TALK WITH DR. DEWEY AGAIN. DR. DEWEY INFORMED OF REQUEST. AT BEDSIDE WITH PT.
[2022-05-05 08:48] VITALS: BP 138/79; PULSE 76; RESP 15; O2SAT 98
== END 2022-05-05 08:49 | disposition home or self-care (01) ==
PROVIDERS: Emergency Provider Emergency Medicine; Visit Provider Emergency Medicine
DX: R11.2 Nausea with vomiting, unspecified (principal); R10.9 Unspecified abdominal pain; Z90.49 Acquired absence of other specified parts of digestive tract; J45.909 Unspecified asthma, uncomplicated; F17.290 Nicotine dependence, other tobacco product, uncomplicated
CPT/HCPCS: 80053; 83690; 84703; 85025; 96361; 96374; 96375; 99283; J7030; J2405

== ENCOUNTER 2022-05-06 06:34 | Emergency (ER) | payer OTHER, MEDICAID, SELFPAY ==
[2022-05-06 06:35] VITALS: BP 166/126; PULSE 82; RESP 15; TEMP 36.4; O2SAT 99; BMI 32.7
[2022-05-06 07:17] LABS: Absolute Neutrophil Count 4.5 X10^3/uL (2.0-7.7); Basophil# 0.09 X10^3/uL; Eosinophil# 0.46 X10^3/uL; Hematocrit 39.5 % (37-47); Hemoglobin 12.9 g/dL (12.0-15.0); Lymphocyte % 38.1 % (19-41); Mean Corp Hgb Conc 32.7 g/dL (32-36); Mean Corpuscular Hgb 26.1 pg (27.0-32.0); Mean Platelet Vol. 10.7 fl (6.2-12.0); Monocyte# 0.57 X10^3/uL; Monocyte% 6.2 % (0-10); NRBC Flagged by Analyzer 0 % (0-5); Neutrophil # 4.54 X10^3/uL (2.7-7.7); Neutrophil % 49.4 % (47-70); Platelet Count 409 K/mm3 (150-450); RBC Distribution Width CV 14.8 % (11.6-14.6); RBC Distribution Width SD 43.1 fl (35.1-43.9); Red Blood Count 4.94 M/mm3 (4.2-5.4); White Blood Count 9.2 K/mm3 (4.4-11.0)
--- NOTE | 2022-05-06 07:34 | EDS_ITS ---
HPI HPI - GI History of Present Illness Chief Complaint: Abd Pain Informant: patient Abdominal Pain/Flank Pain Onset: Month(s) Context: Gradual Onset Timing: Intermittent Quality: Aching and Sharp Location: Epigastric Current Severity: Moderate Maximum Severity: Moderate Worsened by: Nothing Relieved by: Nothing Nausea/Vomiting/Emesis GI Symptom: Positive for Nausea and Vomiting Onset: Month(s) Quality: Negative for Blood streaks, Coffee ground or Hematemesis Severity: Mild Diarrhea/Melena/Hematochezia GI Symptom: Negative for Diarrhea, Melena or Hematochezia Associated Symptoms Associated Symptoms: Negative for Dysuria, Frequency or Hematuria Narrative Narrative: 21-year-old female prior cholecystectomy. Patient has chronic abdominal pain for the last 8 months. Intermittent daily nausea and vomiting. No diarrhea. No hematemesis. No melena. No dysuria. Nothing particular makes the pain better or worse. She was seen yesterday and extensive work-up lipase was slightly elevated and she was referred back to her general surgeon to have that reevaluated. She returns today with increasing pain. She denies any fever. She did have a CAT scan and unremarkable labs done in February. Prior similar symptoms: Yes Recent Illness/Hospitalization: No PFSH PFSH Medical History 40 weeks gestation of Anemia Anxiety Asthma Depression Low iron Marijuana use Nausea & vomiting Spontaneous vaginal delivery Syncope Upper abdominal pain Vapes nicotine containing substance Wears glasses Home Medications albuterol sulfate 90 mcg/actuation aerosol inhaler (ProAir HFA) 1 puff inhalation Q6H PRN ASTHMA 01/27/22 [History Last Taken Unknown] ondansetron 4 mg disintegrating tablet 4 mg PO Q6H PRN nausea and vomiting #10 tabs 02/13/22 [Rx Last Taken Unknown] metoclopramide HCl 10 mg tablet (Reglan) 10 mg PO Q6H PRN nausea and vomiting #90 tabs 02/17/22 [Rx Last Taken Unknown] sucralfate 100 mg/mL oral suspension (Carafate) 10 ml PO TID 4 weeks #840 mL 02/17/22 [Rx Last Taken Unknown] ursodiol 300 mg capsule 300 mg PO BID #30 caps 04/05/22 [Rx Last Taken Unknown] pantoprazole 40 mg tablet,delayed release 40 mg PO DAILY #30 tabs 04/21/22 [Rx Last Taken Unknown] ondansetron 4 mg disintegrating tablet 4 mg PO Q6H PRN nausea and vomiting #10 tabs 05/05/22 [Rx Last Taken Unknown] Allergy/AdvReac Type Severity Reaction Status Date / Time No Known Allergies Allergy Verified 05/04/22 12:26 Family History Father Diabetes Mother Depression Grandmother Breast cancer Surgical History H/O dilation and curettage History of adenoidectomy History of cholecystectomy (~09/2021) Hx of tonsillectomy Social History household members: significant other Smoking Status: Current every day smoker tobacco type: e-cigarettes alcohol intake: never substance use type: marijuana ROS ROS ED ROS Narrative Abdominal pain. Nausea vomiting. Review of Systems ROS Unobtainable: Denies due to encephalopathy Constitutional Constitutional ED: Denies chills or fever(s) ENT ENT ED: Denies ear pain Cardiovascular Cardiovascular: Denies chest pain Respiratory/Chest Respiratory/Chest: Denies cough or dyspnea Gastrointestinal Gastrointestinal: Reports abdominal pain, nausea and vomiting; Denies constipation, diarrhea or melena Genitourinary Genitourinary ED: Denies dysuria or hematuria Musculoskeletal Musculoskeletal: Denies arthralgias or back pain Integumentary Denies abscess Neurologic Neurologic: Denies headache(s) Psychiatric Psychiatric: Denies anxiety Endocrine Endocrinology: Denies polydipsia Hematologic/Lymphatic Hematologic/Lymphatic: Denies easy bleeding Allergic/Immunologic Allergic/Immunologic ED: Denies mouth swelling EXAM Physical Exam Narrative Exam Narrative: 21-year-old female vital signs are stable afebrile. Her blood pressure is elevated 166/126 and will be rechecked. This patient is very animated. She is currently on all fours complaining of abdominal pain. H EENT exam unremarkable. Neck nontender. Lungs clear to auscultation bilaterally. Heart regular rhythm rate about 80 no murmur. Abdomen is soft, nondistended, without peritoneal signs. She complains of epigastric tenderness is really not that reproducible. The right upper quadrant is nontender. She has prior well-healed laparoscopic incision scars. Lower abdomen is completely nontender. There is no hernia or mass. Moving all 4 extremities. Nontender no edema. Back nontender. Neurologically she is awake and alert. Const Vital Signs: 05/06/22 06:35 Temperature 97.6 F L Temperature Source Temporal Pulse Rate 82 Respiratory Rate 15 Blood Pressure 166/126 H Blood Pressure Mean 139 Pulse Ox 99 Oxygen Delivery Method Room Air Positive well nourished, well developed and obese; Negative for cachectic, contractures or unkempt General Appearance ED: well developed and NAD; Negative for unkempt, cachectic, contractures or pallor Nutritional Appearance: obese; Negative for cachectic HEENT Reports moist mucous membranes; Denies dry mucous membranes normocephalic and atraumatic; Negative for trauma or tenderness Mouth ED: No dry mucous membranes Mouth: No dry mucous membranes Eyes PERRL and EOMs intact bilaterally Neck no lymphadenopathy, supple and no JVD Resp normal respiratory effort and clear to auscultation bilaterally Effort and Inspection: Negative for respiratory distress or retractions Auscultation: Negative for rales, rhonchi or wheezes Cardio regular rate, regular rhythm, S1 normal heart sound, S2 normal heart sound and no murmurs GI non-distended and no masses; Negative for non-tender Inspection: Negative for abdominal distention Auscultation: normoactive bowel sounds Palpation: soft and tender; Negative for guarding or rigid Back/Spine no CVA tenderness General Back: Negative for CVA tenderness Cervical Spine: Negative for cervical spine tenderness Thoracic Spine / Upper Back: Negative for thoracic spinal tenderness Extremity full ROM General Extremety ED: Negative for edema or tenderness General Extremity: Negative for edema Neuro CN's II-XII intact bilaterally, moves all extremities and no sensory deficits noted Sensorium / Orientation: alert, oriented to person, oriented to place and oriented to time; Negative for orientation impaired or confused Motor Exam: strength 5/5 throughout Psych mental status grossly normal and thought process normal Appearance: Negative for unkempt Attitude: No agitated Mood & Affect: anxious and tearful; Negative for depressed Skin no wounds General Skin Exam: Negative for jaundice or pallor Lesions: no lesions Rashes: no rashes Trauma: Negative for abrasion Nails: Negative for discolored MDM MDM MDM Narrative Medical decision making narrative: 21-year-old with chronic abdominal pain for 8 months. Had a prior laparoscopic cholecystectomy in September of last year. Was seen yesterday had a negative work- up other than her lipase was elevated but not to the point to diagnose flores creatitis. She was referred to follow-up with her general surgeon. She returns today with similar pain. She will be given a GI cocktail and Protonix. Labs for pancreatitis and biliary obstruction are being obtained. Repeat exam no change. Patient states the IV Protonix and GI cocktail do no good. I discussed with her and the male present in the room that her labs are unremarkable. Actually improved from yesterday. Patient's had this pain for months. She had an unremarkable CAT scan in February and she has had upper endoscopy in the last several months again that was unremarkable. She has pantoprazole and Zofran at home for her symptoms. She will be instructed to fall follow-up with surgeon. I know both the patient and her significant other are frustrated I explained to them that we are looking we just cannot find any specific cause of her pain. She will need further outpatient evaluation. Lab Data Attestation: I reviewed the patient's lab results. Lab results narrative: CBC normal. White count 9.2. H&H 12.9 and 39.5. Platelets 409. Chemistry shows a potassium 3.2. Gap at 9 normal BUN of 8 creatinine is 0.9. No signs of dehydration. Liver enzymes are normal. Her lipase is 201 today which is normal and much lower than it was yesterday when it was abnormal. Labs: Laboratory Results - last 24 hr 05/06/22 05/06/22 06:44 06:44 WBC 9.2 RBC 4.94 Hgb 12.9 Hct 39.5 MCV 80.0 L MCH 26.1 L MCHC 32.7 RDW Std Deviation 43.1 RDW Coeff of Connor 14.8 H Plt Count 409 MPV 10.7 Immature Gran % (Auto) 0.300 Neut % (Auto) 49.4 Lymph % (Auto) 38.1 Real % (Auto) 6.2 Eos % (Auto) 5.0 Baso % (Auto) 1.0 Absolute Neuts (auto) 4.5 Absolute Lymphs (auto) 3.50 Nucleated RBC % 0 Sodium 141 Potassium 3.2 L Chloride 108 H Carbon Dioxide 24.0 Anion Gap 9 BUN 8 Creatinine 0.96 Estim Creat Clear Calc 83.41 Est GFR (MDRD) Af Amer 95 Est GFR (MDRD) Non-Af 78 BUN/Creatinine Ratio 8.4 L Glucose 101 Calcium 9.4 Total Bilirubin 0.40 AST 10 L ALT 18 Alkaline Phosphatase 69 Total Protein 8.0 Albumin 4.2 Globulin 3.8 Albumin/Globulin Ratio 1.1 Lipase 201 Discharge Plan Triage Chief Complaint: Abd Pain ED Provider: Marcos Arizmendi Dx/Rx/DC Orders Clinical Impression: Nausea & vomiting, Abdominal pain Instructions: ED Abdominal Pain Unkn Cause Fem Prescriptions: No Action ursodiol 300 mg capsule 300 mg PO BID Qty: 30 1RF albuterol sulfate [ProAir HFA] 90 mcg/actuation Hfa Aerosol Inhaler 1 puff INHALATION Q6H PRN (Reason: ASTHMA) ondansetron 4 mg tablet,disintegrating 4 mg PO Q6H PRN (Reason: nausea and vomiting) Qty: 10 0RF ondansetron 4 mg tablet,disintegrating 4 mg PO Q6H PRN (Reason: nausea and vomiting) Qty: 10 0RF sucralfate [Carafate] 100 mg/mL suspension 10 ml PO TID 28 Days Qty: 840 0RF metoclopramide HCl [Reglan] 10 mg tablet 10 mg PO Q6H PRN (Reason: nausea and vomiting) Qty: 90 0RF pantoprazole 40 mg tablet,delayed release (DR/EC) 40 mg PO DAILY Qty: 30 1RF Primary Care Provider: Care Physician,No Primary Referrals: Earl Thorntno MD [Med Staff - Active Staff] - As soon as possible Care Physician,No Primary [Primary Care Provider] - Activity Restrictions/Additional Instructions: Your labs are normal. Your lipase is back to normal it was a test that was elevated yesterday. Your home Zofran as needed for nausea. Your home stomach medication pantoprazole as prescribed. Call and follow-up with Dr. Earl Thornton Disposition Disposition: Home, Self Care
[2022-05-06 07:35] LABS: ALB/GLOB Ratio 1.1 RATIO (0.9-2.4); AST(SGOT) 10 U/L (15-37); Alanine Aminotransfer ALT/SGPT 18 U/L (13-56); Albumin, Serum 4.2 g/dL (3.2-5.0); Alkaline Phosphatase 69 U/L (45-117); Anion Gap 9 (5-15); BUN 8 mg/dL (7-18); BUN/Creat Ratio 8.4 RATIO (10-20); Calcium,Total 9.4 mg/dL (8.5-10.1); Chloride 108 mmol/L (98-107); Creatinine, Serum 0.96 mg/dL (0.55-1.02); EST Glomerular Filtration Rate 78 mL/min (>60); Est Glom Filt Rate - Afr Amer 95 mL/min (>60); Estimated Creatinine Clearance 83.41 ml/min; Globulin 3.8 g/dL (2.2-4.2); Glucose 101 mg/dL (74-106); Lipase 201 U/L (73-393); Potassium 3.2 mmol/L (3.5-5.1); Sodium Level 141 mmol/L (136-145)
[2022-05-06] MEDS: Mag Hydrox/Al Hydrox/Simeth 30 ML UDC PO (07:41)
== END 2022-05-06 08:10 | disposition home or self-care (01) ==
PROVIDERS: Emergency Medicine; Emergency Provider Emergency Medicine; Visit Provider Emergency Medicine
DX: R10.13 Epigastric pain (principal); G89.29 Other chronic pain; R11.2 Nausea with vomiting, unspecified; R03.0 Elevated blood-pressure reading, without diagnosis of hypertension; E66.9 Obesity, unspecified; F17.290 Nicotine dependence, other tobacco product, uncomplicated; Z90.49 Acquired absence of other specified parts of digestive tract
CPT/HCPCS: 80053; 83690; 85025; 96361; 96374; 99283; J7040; A4216; J3490

== ENCOUNTER 2022-06-02 14:44 | Emergency (ER) | payer OTHER, MEDICAID, SELFPAY ==
[2022-06-02 14:46] VITALS: BP 132/67; PULSE 105; RESP 16; TEMP 36.6; O2SAT 100; BMI 32.1
--- NOTE | 2022-06-02 15:01 | US_ITS ---
We are attempting to reach an attending provider to discuss findings. An addendum with communication details will be sent when the communication is complete. STUDY: FIRST TRIMESTER OBSTETRICAL ULTRASOUND REASON FOR EXAM: Female, 21 years old CRAMPS LMP: TECHNIQUE: Transvaginal TECHNICAL QUALITY: Adequate. PRIOR ULTRASOUND: None. FINDINGS: There is visualization of a single gestational sac in a normal intrauterine position. The mean sac diameter (MSD) measures 6.8 mm, indicating an estimated gestational age (EGA) of 5 weeks, 3 days. The gestational sac shape is within normal limits. Yolk sac is not visualized The placenta is non-visualized. pole not visualized. The estimated gestation age (EGA) by LMP is 10 weeks, 1 days. The estimated date of delivery (CHAN) by LMP is 12/28/2022. The estimated gestation age (EGA) by US is 5 weeks, 3 days. The estimated date of delivery (CHAN) by US is January 30, 2023. The uterus measures 8 x 5.4 x 4 cm. There is no demonstrated uterine fibroid. The cervix is closed. The right ovary measures 5.4 x 4.1 x 3.1 cm. There are 2 complex cystic lesions in the right ovary measuring 2.2 x 2.3 x 1.8 cm and 2.8 x 3.1 x 1.9 cm . The left ovary measures 2.7 x 2.4 x 2.3 cm. There is no left ovarian cyst. There is no visualized left adnexal mass or complex lesion. There is no fluid in the cul de sac. US/Transvaginal w/Preg US IMPRESSION: There is a fluid sac within the uterus however typical chorionic rind is not visualized and there is no visualized yolk sac or pole Possibility of very early intrauterine gestation is not excluded however there are complex cysts within the right ovary and possibility of a pseudosac with ectopic or blighted ovum should be excluded. Recommend clinical correlation and follow-up studies Electronically Signed: Wilfrid Encarnacion MD at 17:57 EDT Reading Location ID and State: [facility] / [place] , Service support ,
--- NOTE | 2022-06-02 15:03 | EDS_ITS ---
HPI History of Present Illness Chief Complaint: General Illness Detail of Chief Complaint: and lightheaded and dizzy Informant: patient Narrative Narrative: Patient presents to the emergency department at the request of urgent care where she was today. Patient states that for the last 2 days she has been lightheaded and dizzy intermittently. Symptoms will last for several hours and just got a feels like she is on a boat swaying. Patient denies any fever or cough or sore throat. She denies urinary symptoms. Patient thinks she is about 8 weeks as her last menstrual period was sometime in March. She has not had any care. Patient is . She does complain of some intermittent lower abdomen cramping and pain. Patient called her OB and was told to be evaluated in the emergency department. Prior similar symptoms: No PFSH PFSH Medical History 40 weeks gestation of Anemia Anxiety Asthma Depression Low iron Marijuana use Nausea & vomiting Spontaneous vaginal delivery Syncope Upper abdominal pain Vapes nicotine containing substance Wears glasses Home Medications albuterol sulfate 90 mcg/actuation aerosol inhaler (ProAir HFA) 1 puff inhalation Q6H PRN ASTHMA 01/27/22 [History Last Taken Unknown] ondansetron 4 mg disintegrating tablet 4 mg PO Q6H PRN nausea and vomiting #10 tabs 02/13/22 [Rx Last Taken Unknown] metoclopramide HCl 10 mg tablet (Reglan) 10 mg PO Q6H PRN nausea and vomiting #90 tabs 02/17/22 [Rx Last Taken Unknown] sucralfate 100 mg/mL oral suspension (Carafate) 10 ml PO TID 4 weeks #840 mL 02/17/22 [Rx Last Taken Unknown] ursodiol 300 mg capsule 300 mg PO BID #30 caps 04/05/22 [Rx Last Taken Unknown] pantoprazole 40 mg tablet,delayed release 40 mg PO DAILY #30 tabs 04/21/22 [Rx Last Taken Unknown] ondansetron 4 mg disintegrating tablet 4 mg PO Q6H PRN nausea and vomiting #10 tabs 05/05/22 [Rx Last Taken Unknown] Allergy/AdvReac Type Severity Reaction Status Date / Time No Known Allergies Allergy Verified 06/02/22 14:48 Family History Father Diabetes Mother Depression Grandmother Breast cancer Surgical History H/O dilation and curettage History of adenoidectomy History of cholecystectomy (~09/2021) Hx of tonsillectomy Social History household members: significant other Smoking Status: Current every day smoker tobacco type: e-cigarettes alcohol intake: never substance use type: marijuana ROS ROS ED Review of Systems ROS Unobtainable: other Constitutional Constitutional ED: Reports lethargy; Denies chills, fever(s), sweats or weight loss Eyes Eyes: Denies blurry vision, change in vision or diplopia ENT ENT ED: Denies rhinorrhea or sore throat Cardiovascular Cardiovascular: Denies chest pain, orthopnea or racing heartbeat Respiratory/Chest Respiratory/Chest: Denies cough, dyspnea, dyspnea on exertion, orthopnea or sputum Gastrointestinal Gastrointestinal: Reports nausea; Denies abdominal pain, diarrhea or vomiting Genitourinary Genitourinary ED: Denies dysuria, hematuria or urinary frequency Musculoskeletal Musculoskeletal: Denies arthralgias, back pain, myalgias or neck pain Integumentary Denies abscess, Abrasions or rash Neurologic Neurologic: Reports other Details: Lightheaded/dizzy ; Denies headache(s) or weakness Psychiatric Psychiatric: Denies anxiety, depression or suicidal thoughts Endocrine Endocrinology: Denies polydipsia, polyphagia or polyuria Hematologic/Lymphatic Hematologic/Lymphatic: Denies easy bleeding, easy bruising or lymphadenopathy Allergic/Immunologic Allergic/Immunologic ED: Denies mouth swelling, tongue swelling or urticaria EXAM Physical Exam Const Vital Signs: 06/02/22 14:46 06/02/22 15:20 Temperature 98 F Temperature Source Temporal Pulse Rate 105 H Pulse Rate [Lying] 76 Pulse Rate [Sitting (for 1 minute prior to obtaining)] 80 Pulse Rate [Standing (for 1 minute prior to obtaining)] 96 Respiratory Rate 16 Blood Pressure 132/67 H Blood Pressure [Lying] 111/61 Blood Pressure [Sitting (for 1 minute prior to obtaining)] 107/70 Blood Pressure [Standing (for 1 minute prior to obtaining)] 106/79 Blood Pressure Mean 88 Blood Pressure Mean [Lying] 77 Blood Pressure Mean [Sitting (for 1 minute prior to obtaining)] 82 Blood Pressure Mean [Standing (for 1 minute prior to obtaining)] 88 Pulse Ox 100 Oxygen Delivery Method Room Air Positive well nourished and well developed General Appearance ED: well developed and NAD HEENT Reports TM's clear and moist mucous membranes normocephalic and atraumatic; Negative for trauma or tenderness Tympanic Membrane ED: Yes TM's clear Eyes PERRL and EOMs intact bilaterally General Eye ED: Negative for pale conjunctiva or scleral icterus Neck no lymphadenopathy, supple and no JVD General: Negative for tenderness Chest Wall inspection of chest normal and palpation of chest normal Chest: Negative for tenderness Resp normal respiratory effort and clear to auscultation bilaterally Effort and Inspection: Negative for respiratory distress or pain with movement Auscultation: Negative for rhonchi, wheezes or diminished lung sounds Cardio regular rate, regular rhythm, S1 normal heart sound, S2 normal heart sound and no murmurs Peripheral Pulses: pulses 2+ throughout GI normal to inspection, nondistended, normoactive bowel sounds, soft to palpation, non-tender, non-distended and no masses Back/Spine no CVA tenderness and no thoracic nor lumbar tenderness Extremity normal to inspection General Extremety ED: Negative for edema General Extremity: Negative for edema Neuro oriented x3, CN's II-XII intact bilaterally, no sensory deficits noted and gait normal Sensorium / Orientation: awake, alert, oriented to person, oriented to place and oriented to time Motor Exam: strength 5/5 throughout and strength abnormal Psych mental status grossly normal Skin no rashes or lesions noted and no wounds MDM MDM MDM Narrative Medical decision making narrative: IV line established on arrival. Orthostatic vital signs performed were negative. CBC with differential was unremarkable. Chemistries unremarkable. hCG quant was 5086. Urinalysis was normal without signs of infection. Blood type is A-. Patient had a pelvic ultrasound that was interpreted by radiology as a fluid sac within the uterus however typical chorionic rind is not visualized and there is no visualized yolk sac or pole possibility of very early intrauterine gestation not excluded however there are complex cyst within the right ovary and possibility of a pseudosac with ectopic or blighted ovum should be excluded. I discussed this case with patient's WORKFORCE PL[employer] ANALYST Dr. Mike Rodriguez. He feels findings likely consistent more with early intrauterine gestation given the low quant. He asked that patient call the office for follow-up with the office. At this time patient not having any pain over the right lower quadrant. Her abdominal exam is benign and she is not having any vaginal bleeding. She will be discharged to home in stable condition. Patient advised to return if worsening pain, fever, vaginal bleeding, or condition should worsen anyway. Lab Data Attestation: I reviewed the patient's lab results. Labs: Laboratory Results - last 24 hr 06/02/22 06/02/22 06/02/22 15:10 15:10 15:10 WBC 7.7 RBC 4.71 Hgb 12.6 Hct 38.9 MCV 82.6 MCH 26.8 L MCHC 32.4 RDW Std Deviation 46.2 H RDW Coeff of Connor 15.4 H Plt Count 259 MPV 10.7 Immature Gran % (Auto) 0.300 Neut % (Auto) 62.6 Lymph % (Auto) 28.9 [place] % (Auto) 6.4 Eos % (Auto) 1.2 Baso % (Auto) 0.6 Absolute Neuts (auto) 4.8 Absolute Lymphs (auto) 2.23 Nucleated RBC % 0 Sodium 135 L Potassium 3.5 Chloride 108 H Carbon Dioxide 25.0 Anion Gap 2 L BUN 5 L Creatinine 0.72 Estim Creat Clear Calc 111.22 Est GFR (MDRD) Af Amer 131 Est GFR (MDRD) Non-Af 108 BUN/Creatinine Ratio 6.9 L Glucose 83 Calcium 8.9 HCG, Quant 5086 H Urine Color Urine Clarity Urine pH Ur Specific [place] Urine Protein Urine Glucose (UA) Urine Ketones Urine Occult Blood Urine Nitrite Urine Bilirubin Urine Urobilinogen Ur Leukocyte Esterase Urine RBC Urine WBC Ur Squamous Epith Cells Urine Bacteria Urine Mucus Blood Type 06/02/22 06/02/22 15:10 15:20 WBC RBC Hgb Hct MCV MCH MCHC RDW Std Deviation RDW Coeff of Connor Plt Count MPV Immature Gran % (Auto) Neut % (Auto) Lymph % (Auto) [place] % (Auto) Eos % (Auto) Baso % (Auto) Absolute Neuts (auto) Absolute Lymphs (auto) Nucleated RBC % Sodium Potassium Chloride Carbon Dioxide Anion Gap BUN Creatinine Estim Creat Clear Calc Est GFR (MDRD) Af Amer Est GFR (MDRD) Non-Af BUN/Creatinine Ratio Glucose Calcium HCG, Quant Urine Color Yellow Urine Clarity Sl. Cloudy Urine pH 7.0 Ur Specific [place] 1.015 Urine Protein 15 H Urine Glucose (UA) Normal Urine Ketones 15 H Urine Occult Blood Negative Urine Nitrite Negative Urine Bilirubin Negative Urine Urobilinogen 4 H Ur Leukocyte Esterase 100 H Urine RBC 0 SEEN Urine WBC 0-5 SEEN Ur Squamous Epith Cells 5-10 SEEN Urine Bacteria 1+ Urine Mucus 0 SEEN Blood Type A NEGATIVE Radiography Diagnostic Testing: Clinical Impression(s) from Imaging Studies Obstetrics Ultrasound 06/02/22 15:01 IMPRESSION: There is a fluid sac within the uterus however typical chorionic rind is not visualized and there is no visualized yolk sac or pole Possibility of very early intrauterine gestation is not excluded however there are complex cysts within the right ovary and possibility of a pseudosac with ectopic or blighted ovum should be excluded. Recommend clinical correlation and follow-up studies Electronically Signed: Wilfrid Encarnacion MD at 17:57 EDT , ADDENDUM: 06/02/22 1809 IMPRESSION: There is a fluid sac within the uterus however typical chorionic rind is not visualized and there is no visualized yolk sac or pole Possibility of very early intrauterine gestation is not excluded however there are complex cysts within the right ovary and possibility of a pseudosac with ectopic or blighted ovum should be excluded. Recommend clinical correlation and follow-up studies N.B. : The above Results were Read Back by Wilfrid Encarnacion MD to Charito Berman MD, and understanding confirmed on 06/02/2022 18:02:32 (ET). Electronically Signed: Wilfrid Encarnacion MD at 17:57 EDT , Discharge Plan Triage Chief Complaint: General Illness ED Provider: Charito Berman Dx/Rx/DC Orders Clinical Impression: First trimester , Dizziness Instructions: 1st Trimester, ED Dizziness, Uncertain Cause Prescriptions: No Action ursodiol 300 mg capsule 300 mg PO BID Qty: 30 1RF albuterol sulfate [ProAir HFA] 90 mcg/actuation Hfa Aerosol Inhaler 1 puff INHALATION Q6H PRN (Reason: ASTHMA) ondansetron 4 mg tablet,disintegrating 4 mg PO Q6H PRN (Reason: nausea and vomiting) Qty: 10 0RF ondansetron 4 mg tablet,disintegrating 4 mg PO Q6H PRN (Reason: nausea and vomiting) Qty: 10 0RF sucralfate [Carafate] 100 mg/mL suspension 10 ml PO TID 28 Days Qty: 840 0RF metoclopramide HCl [Reglan] 10 mg tablet 10 mg PO Q6H PRN (Reason: nausea and vomiting) Qty: 90 0RF pantoprazole 40 mg tablet,delayed release (DR/EC) 40 mg PO DAILY Qty: 30 1RF Primary Care Provider: Care Physician,No Primary Referrals: Mike Rodriguez MD [Med Staff - Active Staff] - Care Physician,No Primary [Primary Care Provider] - Disposition Disposition: Home, Self Care
[2022-06-02] MEDS: 0.9% Normal Saline 1,000 ML 1000 ML IV (15:17)
[2022-06-02 15:19] LABS: Absolute Lymphocyte Count 2.23 X10^3/uL (0.83-4.51); Absolute Neutrophil Count 4.8 X10^3/uL (2.0-7.7); Basophil# 0.05 X10^3/uL; Basophil% 0.6 % (0-1); Eosinophil# 0.09 X10^3/uL; Eosinophils% 1.2 % (0-5); Hematocrit 38.9 % (37-47); Hemoglobin 12.6 g/dL (12.0-15.0); Lymphocyte # 2.23 X10^3/ul (0.83-4.51); Lymphocyte % 28.9 % (19-41); Mean Corp Hgb Conc 32.4 g/dL (32-36); Mean Corpuscular Hgb 26.8 pg (27.0-32.0); Mean Corpuscular Volume 82.6 fL (81-99); Mean Platelet Vol. 10.7 fl (6.2-12.0); Monocyte# 0.49 X10^3/uL; Monocyte% 6.4 % (0-10); NRBC Flagged by Analyzer 0 % (0-5); Neutrophil # 4.83 X10^3/uL (2.7-7.7); Neutrophil % 62.6 % (47-70); Platelet Count 259 K/mm3 (150-450); RBC Distribution Width CV 15.4 % (11.6-14.6); RBC Distribution Width SD 46.2 fl (35.1-43.9); Red Blood Count 4.71 M/mm3 (4.2-5.4); White Blood Count 7.7 K/mm3 (4.4-11.0)
[2022-06-02 15:20] VITALS: BP 106/79; BP 107/70; BP 111/61; PULSE 76; PULSE 80; PULSE 96
[2022-06-02 15:29] LABS: Mucous, Urine 0 SEEN /hpf (<or=2+); Red Blood Cells-Urine 0 SEEN /hpf (0-5)
[2022-06-02 15:31] LABS: Anion Gap 2 (5-15); BUN 5 mg/dL (7-18); BUN/Creat Ratio 6.9 RATIO (10-20); Calcium,Total 8.9 mg/dL (8.5-10.1); Chloride 108 mmol/L (98-107); Creatinine, Serum 0.72 mg/dL (0.55-1.02); EST Glomerular Filtration Rate 108 mL/min (>60); Est Glom Filt Rate - Afr Amer 131 mL/min (>60); Estimated Creatinine Clearance 111.22 ml/min; Glucose 83 mg/dL (74-106); Potassium 3.5 mmol/L (3.5-5.1); Sodium Level 135 mmol/L (136-145)
[2022-06-02 15:32] LABS: Color, Urine Yellow (Yellow); Glucose, Dipstick Normal (Normal); Ketone-Dipstick 15 mg/dl (Negative); Leukocyte Esterase-Dipstick 100 /ul (Negative); Nitrite-Dipstick Negative (Negative); Occult Blood-Urine Negative /ul (Negative); Protein-Dipstick 15 mg/dl (Negative); Specific Gravity, Urine 1.015 (1.002-1.030); Urine Bilirubin Dipstick Negative (Negative); Urine Clarity Sl. Cloudy (Clear); Urine Urobilinogen 4 mg/dl (Normal)
[2022-06-02 15:51] LABS: Squamous Epithelial Cells - UA 5-10 SEEN /hpf (5-10); White Blood Cells 0-5 SEEN /hpf (0-5)
[2022-06-02 15:52] LABS: Bacteria 1+ /hpf (None Seen)
[2022-06-02 16:12] LABS: hCG Titer Quant., Serum 5086 mIU/mL (1-3)
[2022-06-02 18:35] VITALS: RESP 18
== END 2022-06-02 18:36 | disposition home or self-care (01) ==
PROVIDERS: Emergency Provider Emergency Medicine; Visit Provider Emergency Medicine
DX: O26.891 Other specified pregnancy related conditions, first trimester (principal); O99.891 Other specified diseases and conditions complicating pregnancy; R42 Dizziness and giddiness; R10.30 Lower abdominal pain, unspecified; F17.290 Nicotine dependence, other tobacco product, uncomplicated; O99.330 Smoking (tobacco) complicating pregnancy, unspecified trimester
CPT/HCPCS: 76817; 80048; 81001; 84702; 85025; 86900; 86901; 96360; 96361; 99283; J7030; A4216

== ENCOUNTER 2022-06-12 12:29 | Emergency (ER) | payer OTHER, MEDICAID, SELFPAY ==
[2022-06-12 12:29] VITALS: BP 142/82; PULSE 90; RESP 22; TEMP 36.6; O2SAT 98; BMI 32.1
--- NOTE | 2022-06-12 12:49 | US_ITS ---
INDICATION: pain. ? Ectopic on previous US EXAMINATION: Ultrasound US OB Transvaginal TECHNIQUE: Transabdominal pelvic ultrasound was performed. Grayscale, spectral waveform, and color flow Doppler evaluation of the adnexa. COMPARISON: June 02, [address] dated February 13, 2022 LMP: [March 23, 2022 corresponding to a gestational age of 11 weeks and 4 days Beta-hCG: Unknown FINDINGS: UTERUS: 8.6 x 4.5 x 5.8 cm. RIGHT OVARY: 4.0 x 3.4 x 4.5 cm. There is a partially cystic and echogenic focus within the right ovary consistent with a cystic dermoid. LEFT OVARY: 2.4 x 2.6 x 2.1 cm. Normal. FREE FLUID: None. INTRAUTERINE GESTATIONAL SAC(s) (size/shape): Single. The mean sac diameter measures 1.82 cm corresponding to gestational age of 6 weeks and 5 days. YOLK SAC: Identified POLE: Identified. The crown-rump length measures 0.49 cm corresponding to gestational age of 6 weeks and 3 days. . ESTIMATED DUE DATE: February 01, 2023 HEART MOTION: 112 bpm. PLACENTA: Not visualized due to age. SUBCHORIONIC HEMORRHAGE: There is a 0.4 x 0.4 x 0.6 cm subchorionic fluid focus. AMNIOTIC FLUID: Qualitatively normal. US/Transvaginal w/Preg US IMPRESSION: Live single intrauterine with an estimated gestational age by ultrasound of 6 weeks and 3 days. 0.4 x 0.4 x 0.6 cm subchorionic hemorrhage. Complex right ovarian cystic focus suggestive of a cystic dermoid. Electronically Signed: Elvia Xie MD at 14:39 EDT ,
--- NOTE | 2022-06-12 12:52 | EDS_ITS ---
HPI History of Present Illness Chief Complaint: Abd Pain Informant: patient Onset/Context/Timing Onset: Days (3 days) Narrative Narrative: Patient presents with recurrent upper abdominal pain. She states she is had pain like this since she had her gallbladder removed in September. She describes a tight squeezing sensation in the upper abdomen. She denies fever or chills. This particular episode has been ongoing for the past 3 days. Patient does report that she is currently but unsure how far along she is. It is noted that the patient was seen here in late May and had an ultrasound that showed possible intrauterine versus ectopic. There was a cyst noted at the right ovary. Patient states she is supposed to follow- up next Tuesday for pelvic ultrasound. [facility] Medical History 40 weeks gestation of Anemia Anxiety Asthma Depression Low iron Marijuana use Nausea & vomiting Spontaneous vaginal delivery Syncope Upper abdominal pain Vapes nicotine containing substance Wears glasses Home Medications albuterol sulfate 90 mcg/actuation aerosol inhaler (ProAir HFA) 1 puff inhalation Q6H PRN ASTHMA 01/27/22 [History Last Taken Unknown] ondansetron 4 mg disintegrating tablet 4 mg PO Q6H PRN nausea and vomiting #10 tabs 02/13/22 [Rx Last Taken Unknown] metoclopramide HCl 10 mg tablet (Reglan) 10 mg PO Q6H PRN nausea and vomiting #90 tabs 02/17/22 [Rx Last Taken Unknown] sucralfate 100 mg/mL oral suspension (Carafate) 10 ml PO TID 4 weeks #840 mL 02/17/22 [Rx Last Taken Unknown] ursodiol 300 mg capsule 300 mg PO BID #30 caps 04/05/22 [Rx Last Taken Unknown] pantoprazole 40 mg tablet,delayed release 40 mg PO DAILY #30 tabs 04/21/22 [Rx Last Taken Unknown] ondansetron 4 mg disintegrating tablet 4 mg PO Q6H PRN nausea and vomiting #10 tabs 05/05/22 [Rx Last Taken Unknown] dicyclomine 20 mg tablet 20 mg PO TID PRN abdominal pain #14 tabs 06/12/22 [Rx Last Taken Unknown] hydrocodone-acetaminophen 5-325mg 5mg-325mg 1 tab PO Q6H PRN PRN Pain 3 days #10 TABLETS 06/12/22 [Rx Last Taken Unknown] omeprazole 40 mg capsule,delayed release 40 mg PO DAILY #30 caps 06/12/22 [Rx Last Taken Unknown] ondansetron 4 mg disintegrating tablet 4 mg PO Q8H PRN PRN Nausea #10 tabs 06/12/22 [Rx Last Taken Unknown] Allergy/AdvReac Type Severity Reaction Status Date / Time No Known Allergies Allergy Verified 06/12/22 12:31 Family History Father Diabetes Mother Depression Grandmother Breast cancer Surgical History H/O dilation and curettage History of adenoidectomy History of cholecystectomy (~09/2021) Hx of tonsillectomy Social History household members: significant other Smoking Status: Current every day smoker tobacco type: e-cigarettes alcohol intake: never substance use type: marijuana ROS ROS ED Constitutional Constitutional ED: Denies chills or fever(s) Eyes Eyes: Denies change in vision or discharge from eye(s) ENT ENT ED: Denies discharge from eye(s) or sore throat Cardiovascular Cardiovascular: Denies chest pain Respiratory/Chest Respiratory/Chest: Denies cough or dyspnea Gastrointestinal Gastrointestinal: Reports abdominal pain; Denies diarrhea, nausea or vomiting Genitourinary Genitourinary ED: Denies dysuria Musculoskeletal Musculoskeletal: Denies back pain or extremity pain Integumentary Denies Abrasions or rash Neurologic Neurologic: Denies headache(s) or weakness Allergic/Immunologic Allergic/Immunologic ED: Denies lip swelling or urticaria EXAM Physical Exam Const Vital Signs: 06/12/22 12:29 06/12/22 12:29 Temperature 98 F 98 F Temperature Source Temporal Temporal Pulse Rate 90 90 Respiratory Rate 22 H 22 H Blood Pressure 142/82 H 142/82 H Blood Pressure Mean 102 102 Pulse Ox 98 98 Oxygen Delivery Method Room Air Room Air Positive well nourished and well developed General Appearance ED: well developed HEENT Reports normocephalic and head/scalp atraumatic Eyes PERRL and EOMs intact bilaterally Neck supple Chest Wall inspection of chest normal and palpation of chest normal Resp normal respiratory effort and clear to auscultation bilaterally Cardio regular rate and regular rhythm GI GI Narrative: Epigastric tenderness to palpation. Auscultation: hypoactive bowel sounds Palpation: soft Back/Spine no CVA tenderness Extremity normal to inspection Neuro oriented x3 and no sensory deficits noted Sensorium / Orientation: alert Motor Exam: strength 5/5 throughout Psych mental status grossly normal Skin no rashes or lesions noted MDM MDM MDM Narrative Medical decision making narrative: With patient's last ultrasound concerning for possible ectopic , pelvic ultrasound is performed today. Labwork obtained to evaluate for leukocytosis, anemia, and electrolyte derangement. Patient initially given morphine and Zofran for pain and nausea. A short time later nursing staff presented to me stating that the patient was curled in a ball crying because of pain. At that time she is given a dose of Bentyl and 0.5 mg of Dilaudid. History & Record Review Discussion w/independent historian: Patient and Significant other Additional record(s) reviewed:: Prior outpatient record, Prior ED visit and Prior labs Lab Data Attestation: I reviewed the patient's lab results. Labs: Laboratory Results - last 24 hr 06/12/22 06/12/22 06/12/22 13:00 13:00 13:00 WBC 9.5 RBC 4.83 Hgb 13.0 Hct 38.3 MCV 79.3 L MCH 26.9 L MCHC 33.9 RDW Std Deviation 43.5 RDW Coeff of Connor 15.1 H Plt Count 286 MPV 10.4 Immature Gran % (Auto) 0.200 Neut % (Auto) 80.3 H Lymph % (Auto) 14.2 L [place] % (Auto) 4.7 Eos % (Auto) 0.3 Baso % (Auto) 0.3 Absolute Neuts (auto) 7.6 Absolute Lymphs (auto) 1.35 Nucleated RBC % 0 Sodium 139 Potassium 3.5 Chloride 107 Carbon Dioxide 23.0 Anion Gap 9 BUN 6 L Creatinine 0.67 Estim Creat Clear Calc 119.52 Est GFR (MDRD) Af Amer 143 Est GFR (MDRD) Non-Af 118 BUN/Creatinine Ratio 9.0 L Glucose 97 Calcium 9.1 Total Bilirubin 0.50 Direct Bilirubin 0.14 AST 9 L ALT 14 Alkaline Phosphatase 60 Total Protein 7.9 Albumin 4.1 Globulin 3.8 Lipase 17 HCG, Quant 90772 H Radiography Diagnostic Testing: Clinical Impression(s) from Imaging Studies Obstetrics Ultrasound 06/12/22 12:49 IMPRESSION: Live single intrauterine with an estimated gestational age by ultrasound of 6 weeks and 3 days. 0.4 x 0.4 x 0.6 cm subchorionic hemorrhage. Complex right ovarian cystic focus suggestive of a cystic dermoid. Electronically Signed: Elvia Xie MD at 14:39 EDT , Treatment and Re-Evaluation :: CBC was normal white count and hemoglobin level. Chemistry studies unremarkable. LFTs and lipase are normal. Quant is 29,000 160. Pelvic ultrasound is performed and reveals a single live intrauterine at 6 weeks and 3 days. There is a very small subchorionic hemorrhage. There is a complex right ovarian cyst suggestive of a cystic dermoid. On repeat evaluation patient is more comfortable. It does appear that she has been on omeprazole and sucralfate in the past. She states she needs a new prescription for omeprazole but still has 3 bottles of the sucralfate. She admits she only uses it occasionally. I will also write her for Bentyl and Zofran as well as a few [place] for breakthrough pain. She is to follow-up with her [employer]IE[employer] COUNSELOR next week as scheduled. She has seen Dr. Thornton in the past for her epigastric abdominal pain and referred back to him as well. Discharge Plan Triage Chief Complaint: Abd Pain ED Provider: Stephanie Menchaca Dx/Rx/DC Orders Clinical Impression: Epigastric pain, First trimester Instructions: ED Abdominal Pain, Early , ED Epigastric Pain Uncertain Cause Prescriptions: New ondansetron 4 mg tablet,disintegrating 4 mg PO Q8H PRN PRN (Reason: Nausea) Qty: 10 0RF dicyclomine 20 mg tablet 20 mg PO TID PRN (Reason: abdominal pain) Qty: 14 0RF omeprazole 40 mg capsule,delayed release(DR/EC) 40 mg PO DAILY Qty: 30 0RF hydrocodone-acetaminophen 5-325 mg tablet 1 tab PO Q6H PRN PRN (Reason: Pain) 3 Days Qty: 10 0RF No Action ursodiol 300 mg capsule 300 mg PO BID Qty: 30 1RF albuterol sulfate [ProAir HFA] 90 mcg/actuation Hfa Aerosol Inhaler 1 puff INHALATION Q6H PRN (Reason: ASTHMA) ondansetron 4 mg tablet,disintegrating 4 mg PO Q6H PRN (Reason: nausea and vomiting) Qty: 10 0RF ondansetron 4 mg tablet,disintegrating 4 mg PO Q6H PRN (Reason: nausea and vomiting) Qty: 10 0RF sucralfate [Carafate] 100 mg/mL suspension 10 ml PO TID 28 Days Qty: 840 0RF metoclopramide HCl [Reglan] 10 mg tablet 10 mg PO Q6H PRN (Reason: nausea and vomiting) Qty: 90 0RF pantoprazole 40 mg tablet,delayed release (DR/EC) 40 mg PO DAILY Qty: 30 1RF Stand Alone Forms: ED Work / School Excuse Primary Care Provider: Care Physician,No Primary Referrals: Mike Rodriguez MD [Med Staff - Active Staff] - Keep Kash appointment Earl Thornton MD [Med Staff - Active Staff] - As Needed Care Physician,No Primary [Primary Care Provider] - Disposition Disposition: Home, Self Care
[2022-06-12] MEDS: Morphine 4 MG/ML Syringe IV (13:04)
[2022-06-12] MEDS: Ondansetron 4 MG/2 ML Vial IV (13:04)
[2022-06-12 13:17] LABS: Absolute Lymphocyte Count 1.35 X10^3/uL (0.83-4.51); Absolute Neutrophil Count 7.6 X10^3/uL (2.0-7.7); Basophil# 0.03 X10^3/uL; Basophil% 0.3 % (0-1); Eosinophil# 0.03 X10^3/uL; Eosinophils% 0.3 % (0-5); Hematocrit 38.3 % (37-47); Lymphocyte # 1.35 X10^3/ul (0.83-4.51); Lymphocyte % 14.2 % (19-41); Mean Corp Hgb Conc 33.9 g/dL (32-36); Mean Corpuscular Hgb 26.9 pg (27.0-32.0); Mean Corpuscular Volume 79.3 fL (81-99); Mean Platelet Vol. 10.4 fl (6.2-12.0); Monocyte# 0.45 X10^3/uL; Monocyte% 4.7 % (0-10); NRBC Flagged by Analyzer 0 % (0-5); Neutrophil # 7.64 X10^3/uL (2.7-7.7); Neutrophil % 80.3 % (47-70); Platelet Count 286 K/mm3 (150-450); RBC Distribution Width CV 15.1 % (11.6-14.6); RBC Distribution Width SD 43.5 fl (35.1-43.9); Red Blood Count 4.83 M/mm3 (4.2-5.4); White Blood Count 9.5 K/mm3 (4.4-11.0)
[2022-06-12] MEDS: HYDROmorphone 0.5 MG/0.5 ML SYRINGE IV (13:34)
[2022-06-12 13:35] LABS: AST(SGOT) 9 U/L (15-37); Alanine Aminotransfer ALT/SGPT 14 U/L (13-56); Albumin, Serum 4.1 g/dL (3.2-5.0); Alkaline Phosphatase 60 U/L (45-117); Anion Gap 9 (5-15); BUN 6 mg/dL (7-18); Bilirubin, Direct 0.14 mg/dL (0.00-0.30); Calcium,Total 9.1 mg/dL (8.5-10.1); Chloride 107 mmol/L (98-107); Creatinine, Serum 0.67 mg/dL (0.55-1.02); EST Glomerular Filtration Rate 118 mL/min (>60); Est Glom Filt Rate - Afr Amer 143 mL/min (>60); Estimated Creatinine Clearance 119.52 ml/min; Globulin 3.8 g/dL (2.2-4.2); Glucose 97 mg/dL (74-106); Lipase 17 U/L (13-75); Potassium 3.5 mmol/L (3.5-5.1); Protein, Total 7.9 g/dL (6.4-8.2); Sodium Level 139 mmol/L (136-145)
[2022-06-12] MEDS: Dicyclomine 20 MG/2 ML Vial IM (13:35)
[2022-06-12 13:52] LABS: hCG Titer Quant., Serum 29160 mIU/mL (1-3)
== END 2022-06-12 15:30 | disposition home or self-care (01) ==
PROVIDERS: Emergency Provider Emergency Medicine; Visit Provider Emergency Medicine
DX: O99.891 Other specified diseases and conditions complicating pregnancy (principal); O26.891 Other specified pregnancy related conditions, first trimester; R10.13 Epigastric pain; Z90.49 Acquired absence of other specified parts of digestive tract
CPT/HCPCS: 76817; 80048; 80076; 83690; 84702; 85025; 96372; 96374; 96375; 99283; J7030; J2405

== ENCOUNTER 2022-06-14 08:23 | Emergency (ER) | payer OTHER, MEDICAID, SELFPAY ==
[2022-06-14 08:23] VITALS: BP 124/56; PULSE 79; RESP 16; TEMP 35.7; O2SAT 98; BMI 31.8
--- NOTE | 2022-06-14 10:18 | EX.ED.DYSGE1 ---
HPI History of Present Illness Chief Complaint: Nausea/Vomiting Informant: patient Onset/Context/Timing Onset: - (1 year) Context: Gradual Onset Timing: Intermittent Quality: Cramping Location: Epigastric Worsened by: Nothing Relieved by: Nothing Narrative Narrative: Patient presents with nausea and vomiting that became worse today. Patient states that she has had chronic abdominal pain for the past year. Patient describes it as cramping. Patient states it is over the epigastric area. Patient states she is approximately 6 weeks . Patient states that today she noted some blood streaks in her emesis. Patient states nothing makes her pain better nothing makes it worse. Patient denies any diarrhea, melena, or hematochezia. Patient denies any urinary complaints. [facility] Medical History 40 weeks gestation of Anemia Anxiety Asthma Depression Low iron Marijuana use Nausea & vomiting Spontaneous vaginal delivery Syncope Upper abdominal pain Vapes nicotine containing substance Wears glasses Home Medications albuterol sulfate 90 mcg/actuation aerosol inhaler (ProAir HFA) 1 puff inhalation Q6H PRN ASTHMA 01/27/22 [History Last Taken Unknown] omeprazole 40 mg capsule,delayed release 40 mg PO DAILY #30 caps 06/12/22 [Rx Last Taken Unknown] ondansetron 4 mg disintegrating tablet 4 mg PO Q8H PRN PRN Nausea #10 tabs 06/12/22 [Rx Last Taken Unknown] Allergy/AdvReac Type Severity Reaction Status Date / Time No Known Allergies Allergy Verified 06/14/22 08:23 Family History Father Diabetes Mother Depression Grandmother Breast cancer Surgical History H/O dilation and curettage History of adenoidectomy History of cholecystectomy (~09/2021) Hx of tonsillectomy Social History household members: significant other Smoking Status: Current every day smoker tobacco type: e-cigarettes alcohol intake: never substance use type: marijuana ROS ROS ED Constitutional Constitutional ED: Denies chills or fever(s) Eyes Eyes: Denies blurry vision or change in vision ENT ENT ED: Denies rhinorrhea or sore throat Cardiovascular Cardiovascular: Denies chest pain or palpitations Respiratory/Chest Respiratory/Chest: Denies cough or dyspnea Gastrointestinal Gastrointestinal: Reports abdominal pain, nausea and vomiting Genitourinary Genitourinary ED: Denies dysuria or hematuria Musculoskeletal Musculoskeletal: Reports back pain; Denies neck pain Integumentary Denies abscess or rash Neurologic Neurologic: Denies headache(s) or weakness Allergic/Immunologic Allergic/Immunologic ED: Denies mouth swelling or urticaria EXAM Physical Exam Const Vital Signs: 06/14/22 08:23 06/14/22 10:37 Temperature 96.2 F L Temperature Source Temporal Pulse Rate 79 90 Respiratory Rate 16 16 Blood Pressure 124/56 H 130/87 H Blood Pressure Mean 78 101 Pulse Ox 98 99 Oxygen Delivery Method Room Air Positive well nourished, well developed and obese General Appearance ED: well developed and NAD Nutritional Appearance: obese HEENT Reports moist mucous membranes Neck supple and no JVD Resp normal respiratory effort and clear to auscultation bilaterally Cardio regular rate, regular rhythm and no murmurs GI normal to inspection, nondistended, normoactive bowel sounds Palpation: soft and tender epigastric, LUQ and RUQ; Negative for guarding or rebound tenderness present Extremity normal to inspection General Extremety ED: Negative for edema or tenderness General Extremity: Negative for edema Neuro oriented x3, CN's II-XII intact bilaterally and no sensory deficits noted Sensorium / Orientation: alert Motor Exam: strength 5/5 throughout Psych mental status grossly normal Skin no rashes or lesions noted MDM MDM MDM Narrative Medical decision making narrative: Differential diagnosis includes gastritis, gastroenteritis, pancreatitis, choledocholithiasis, urinary tract infection, and pyelonephritis. CBC will be obtained to assess for leukocytosis and anemia. Comprehensive metabolic profile will be obtained to assess for hepatic function, renal function, and electrolyte abnormality. Urinalysis will be obtained to assess for urinary tract infection and hematuria. Lipase will be obtained to assess for pancreatitis. Quantitative hCG will be obtained for status. Lab Data Attestation: I reviewed the patient's lab results. Lab results narrative: CBC was reviewed. There is a slight anemia with a hemoglobin of 11.7 hematocrit 35.4. Platelets were normal. Comprehensive metabolic profile was reviewed and was within normal limits. Quantitative hCG was reviewed and was [address]. This is increased from previous result. Urinalysis was reviewed. Urine ketones were 150. Leukocyte esterase was 100. There were 0-5 white blood cells. There were 5-10 epithelial cells. Labs: Laboratory Results - last 24 hr 06/14/22 06/14/22 06/14/22 09:12 09:12 09:12 WBC 9.8 RBC 4.34 Hgb 11.7 L Hct 35.4 L MCV 81.6 MCH 27.0 MCHC 33.1 RDW Std Deviation 45.4 H RDW Coeff of Connor 15.5 H Plt Count 264 MPV 11.7 Immature Gran % (Auto) 0.300 Neut % (Auto) 74.2 H Lymph % (Auto) 18.2 L [place] % (Auto) 5.8 Eos % (Auto) 1.0 Baso % (Auto) 0.5 Absolute Neuts (auto) 7.2 Absolute Lymphs (auto) 1.77 Nucleated RBC % 0 Sodium 135 L Potassium 3.5 Chloride 107 Carbon Dioxide 22.0 Anion Gap 6 BUN 5 L Creatinine 0.59 Estim Creat Clear Calc 135.72 Est GFR (MDRD) Af Amer 164 Est GFR (MDRD) Non-Af 135 BUN/Creatinine Ratio 8.4 L Glucose 83 Calcium 8.9 Total Bilirubin 0.30 AST 14 L ALT 17 Alkaline Phosphatase 51 Total Protein 7.1 Albumin 3.6 Globulin 3.5 Albumin/Globulin Ratio 1.0 Lipase 15 HCG, Quant 52456 H Urine Color Urine Clarity Urine pH Ur Specific [place] Urine Protein Urine Glucose (UA) Urine Ketones Urine Occult Blood Urine Nitrite Urine Bilirubin Urine Urobilinogen Ur Leukocyte Esterase Urine RBC Urine WBC Ur Squamous Epith Cells Amorphous Sediment Urine Bacteria Urine Mucus 06/14/22 11:25 WBC RBC Hgb Hct MCV MCH MCHC RDW Std Deviation RDW Coeff of [place] Plt Count MPV Immature Gran % (Auto) Neut % (Auto) Lymph % (Auto) [place] % (Auto) Eos % (Auto) Baso % (Auto) Absolute Neuts (auto) Absolute Lymphs (auto) Nucleated RBC % Sodium Potassium Chloride Carbon Dioxide Anion Gap BUN Creatinine Estim Creat Clear Calc Est GFR (MDRD) Af Amer Est GFR (MDRD) Non-Af BUN/Creatinine Ratio Glucose Calcium Total Bilirubin AST ALT Alkaline Phosphatase Total Protein Albumin Globulin Albumin/Globulin Ratio Lipase HCG, Quant Urine Color Yellow Urine Clarity Clear Urine pH 8.0 Ur Specific [place] 1.015 Urine Protein 30 H Urine Glucose (UA) Normal Urine Ketones 150 A* Urine Occult Blood Negative Urine Nitrite Negative Urine Bilirubin Negative Urine Urobilinogen 1 H Ur Leukocyte Esterase 100 H Urine RBC 0 SEEN Urine WBC 0-5 SEEN Ur Squamous Epith Cells 5-10 SEEN Amorphous Sediment 2+ Urine Bacteria 1+ Urine Mucus 0 SEEN Treatment and Re-Evaluation :: Patient was given IV fluids, Zofran, and morphine. Patient was given a repeat dose of morphine. Patient was advised of her findings. Patient was instructed to start with a bland diet and advance as tolerated. Patient was instructed to drink plenty of fluids. Patient was instructed to follow-up with her primary care physician and MECHANICAL ENGINEERING SPECIALIST in 3 to 5 days. Patient understood and was agreeable with the plan. All questions were answered. Discharge Plan Triage Chief Complaint: Nausea/Vomiting ED Provider: Pieter Smith Dx/Rx/DC Orders Clinical Impression: Upper abdominal pain, Status post cholecystectomy, First trimester Instructions: ED Abdominal Pain Unkn Cause Fem Prescriptions: No Action albuterol sulfate [ProAir HFA] 90 mcg/actuation Hfa Aerosol Inhaler 1 puff INHALATION Q6H PRN (Reason: ASTHMA) ondansetron 4 mg tablet,disintegrating 4 mg PO Q8H PRN PRN (Reason: Nausea) Qty: 10 0RF omeprazole 40 mg capsule,delayed release(DR/EC) 40 mg PO DAILY Qty: 30 0RF Primary Care Provider: Care Physician,No Primary Referrals: Care Physician,No Primary [Primary Care Provider] - Doctor,Your [Non-Staff] - 3-5 Days Disposition Disposition: Home, Self Care
[2022-06-14 10:31] LABS: Absolute Lymphocyte Count 1.77 X10^3/uL (0.83-4.51); Absolute Neutrophil Count 7.2 X10^3/uL (2.0-7.7); Basophil# 0.05 X10^3/uL; Basophil% 0.5 % (0-1); Hematocrit 35.4 % (37-47); Hemoglobin 11.7 g/dL (12.0-15.0); Lymphocyte # 1.77 X10^3/ul (0.83-4.51); Lymphocyte % 18.2 % (19-41); Mean Corp Hgb Conc 33.1 g/dL (32-36); Mean Corpuscular Volume 81.6 fL (81-99); Mean Platelet Vol. 11.7 fl (6.2-12.0); Monocyte# 0.57 X10^3/uL; Monocyte% 5.8 % (0-10); NRBC Flagged by Analyzer 0 % (0-5); Neutrophil # 7.23 X10^3/uL (2.7-7.7); Neutrophil % 74.2 % (47-70); Platelet Count 264 K/mm3 (150-450); RBC Distribution Width CV 15.5 % (11.6-14.6); RBC Distribution Width SD 45.4 fl (35.1-43.9); Red Blood Count 4.34 M/mm3 (4.2-5.4); White Blood Count 9.8 K/mm3 (4.4-11.0)
[2022-06-14] MEDS: Ondansetron 4 MG/2 ML Vial IV (10:31)
[2022-06-14] MEDS: 0.9% Normal Saline 1,000 ML 1000 ML IV (10:31)
[2022-06-14] MEDS: Morphine 2 MG/ML Syringe IV ×3 (10:31→13:18)
[2022-06-14 10:37] VITALS: BP 130/87; PULSE 90; RESP 16; O2SAT 99
[2022-06-14 10:52] LABS: AST(SGOT) 14 U/L (15-37); Alanine Aminotransfer ALT/SGPT 17 U/L (13-56); Albumin, Serum 3.6 g/dL (3.2-5.0); Alkaline Phosphatase 51 U/L (45-117); Anion Gap 6 (5-15); BUN 5 mg/dL (7-18); BUN/Creat Ratio 8.4 RATIO (10-20); Calcium,Total 8.9 mg/dL (8.5-10.1); Chloride 107 mmol/L (98-107); Creatinine, Serum 0.59 mg/dL (0.55-1.02); EST Glomerular Filtration Rate 135 mL/min (>60); Est Glom Filt Rate - Afr Amer 164 mL/min (>60); Estimated Creatinine Clearance 135.72 ml/min; Globulin 3.5 g/dL (2.2-4.2); Glucose 83 mg/dL (74-106); Lipase 15 U/L (13-75); Potassium 3.5 mmol/L (3.5-5.1); Protein, Total 7.1 g/dL (6.4-8.2); Sodium Level 135 mmol/L (136-145)
--- NOTE | 2022-06-14 10:52 | CM.ED ---
Social Work Note Referral Source: case find Referral Reason: no PCP SW met with patient and introduced herself and role as [facility] Hair And Makeup Designer. Patient lying on hospital bed and agreeable to speak with SW. SW inquired about patient's insurance and current PCP. Patient verified insurance and reports no current PCP. SW provided patient with a list of local PCPs in network with patient's insurance and accepting new patients. Patient was receptive towards list and voiced no other needs. SW remains available if needs arise. Laura Saha MSW, PETRA
--- NOTE | 2022-06-14 11:30 | ED.RN ---
this rn in room to medicate pt.PT UP DRINKING WATER OUT OF THE TAP. PT AWARE SHE IS NPO. THIS RN HAD DISCUSSION WITH PT REGARDING THIS BEHAVIOR
[2022-06-14 11:36] LABS: Mucous, Urine 0 SEEN /hpf (<or=2+); Red Blood Cells-Urine 0 SEEN /hpf (0-5)
[2022-06-14 11:43] LABS: Color, Urine Yellow (Yellow); Glucose, Dipstick Normal (Normal); Leukocyte Esterase-Dipstick 100 /ul (Negative); Nitrite-Dipstick Negative (Negative); Occult Blood-Urine Negative /ul (Negative); Protein-Dipstick 30 mg/dl (Negative); Specific Gravity, Urine 1.015 (1.002-1.030); Urine Bilirubin Dipstick Negative (Negative); Urine Clarity Clear (Clear); Urine Urobilinogen 1 mg/dl (Normal)
--- NOTE | 2022-06-14 11:51 | ED.RN ---
PT RINGS OUT STATING PAIN IS RETURNING AND WORSETHEN PREVIOUS
[2022-06-14 12:00] VITALS: RESP 16
[2022-06-14 12:06] LABS: Ketone-Dipstick 150 mg/dl (Negative)
[2022-06-14 12:34] LABS: Amorphous Sediment 2+; Bacteria 1+ /hpf (None Seen); Squamous Epithelial Cells - UA 5-10 SEEN /hpf (5-10); White Blood Cells 0-5 SEEN /hpf (0-5)
[2022-06-14] MEDS: Dicyclomine 20 MG/2 ML Vial IM (13:43)
== END 2022-06-14 13:59 | disposition home or self-care (01) ==
PROVIDERS: Emergency Provider Emergency Medicine; Visit Provider Emergency Medicine
DX: O26.891 Other specified pregnancy related conditions, first trimester (principal); R10.10 Upper abdominal pain, unspecified; R11.2 Nausea with vomiting, unspecified; O99.891 Other specified diseases and conditions complicating pregnancy; Z90.49 Acquired absence of other specified parts of digestive tract; Z3A.01 Less than 8 weeks gestation of pregnancy; E66.9 Obesity, unspecified; O99.210 Obesity complicating pregnancy, unspecified trimester
CPT/HCPCS: 80053; 81001; 83690; 84702; 85025; 96361; 96372; 96374; 96375; 96376; 99284; J7030; A4216; J2405

== ENCOUNTER 2022-07-02 07:28 | Emergency (ER) | payer OTHER, MEDICAID, SELFPAY ==
[2022-07-02 07:28] VITALS: BP 123/84; PULSE 98; RESP 14; TEMP 36.6; O2SAT 99; BMI 30.1
--- NOTE | 2022-07-02 08:17 | EDS_ITS ---
HPI History of Present Illness Chief Complaint: GI Bleed Narrative Narrative: Patient is a 21-year-old female who is presenting to the ER with acute on chronic midepigastric pain, nausea and vomiting. Patient states that she had blood-tinged emesis this morning, it is turned more yellow or/oranges. Patient had no coffee-ground emesis. No black stool, no melena or hematochezia. Patient has acute on chronic gastritis. Patient does smoke marijuana neck. Patient states she is never been diagnosed with cyclic nausea or vomiting. Patient smokes marijuana almost daily, she is also 9 weeks . Patient is a . Patient has no pelvic bleeding, vaginal bleeding. No urinary or bowel complaints. Patient felt fine when she woke up this morning, that she started having some stomach pain, went into the shower. Patient says that she had 1 episode of vomiting in the shower that was blood-tinged, that has subsided and now it is orange tinge/yellowish. Patient has no headache. No fever or chills. No chest pain or shortness of breath. No other acute complaints. Patient was due to see Dr. Kowalski yesterday in the office, GI physician. Patient was 10 minutes late. Patient has excuses why she was late, getting lost in the hospital and standing in the line that she should not have been. Patient says that she was 10 min late, and the GI physician would not see her. Patient has no other acute complaints at this time. Patient is shaking secondary to pain. Patient was brought to the ER by a friend [facility] Medical History 40 weeks gestation of Anemia Anxiety Asthma Depression Low iron Marijuana use Nausea & vomiting Spontaneous vaginal delivery Syncope Upper abdominal pain Vapes nicotine containing substance Wears glasses Home Medications albuterol sulfate 90 mcg/actuation aerosol inhaler (ProAir HFA) 1 puff inhalation Q6H PRN ASTHMA 01/27/22 [History Last Taken Unknown] omeprazole 40 mg capsule,delayed release 40 mg PO DAILY #30 caps 06/12/22 [Rx Last Taken Unknown] ondansetron 4 mg disintegrating tablet 4 mg PO Q8H PRN PRN Nausea #10 tabs 06/12/22 [Rx Last Taken Unknown] ursodiol 300 mg capsule 300 mg PO BID 2 weeks #28 caps 06/14/22 [Rx Last Taken Unknown] dicyclomine 20 mg tablet 20 mg PO TID PRN abdominal pain #36 tabs 06/18/22 [Rx Last Taken Unknown] ondansetron 8 mg disintegrating tablet See Rx Instructions .Route .COMPLEX #10 ea 06/22/22 [Rx Last Taken Unknown] dicyclomine 10 mg capsule 20 mg PO TIDAC #10 CAPSULES 07/02/22 [Rx Last Taken Unknown] ondansetron 4 mg disintegrating tablet 4 mg PO Q8H PRN PRN Nausea #10 tabs 07/02/22 [Rx Last Taken Unknown] potassium chloride 20 mEq tablet,extended release(part/cryst) (Klor-Con M) 40 meq PO DAILY #3 TABLETS 07/02/22 [Rx Last Taken Unknown] Allergy/AdvReac Type Severity Reaction Status Date / Time No Known Allergies Allergy Verified 07/02/22 07:31 Family History Father Diabetes Mother Depression Grandmother Breast cancer Surgical History H/O dilation and curettage History of adenoidectomy History of cholecystectomy (~09/2021) Hx of tonsillectomy Social History household members: significant other Smoking Status: Current every day smoker tobacco type: e-cigarettes alcohol intake: never substance use type: marijuana ROS ROS ED ROS Narrative REVIEW OF SYSTEMS: Unless otherwise stated in this report the patient's positive and negative responses for review of systems for constitutional, eyes, ENT, cardiovascular, respiratory, gastrointestinal, neurological, , musculoskeletal, and integument systems and related systems to the presenting problem are either stated in the history of present illness or were not pertinent or were negative for the symptoms and/or complaints related to the presenting medical problem. EXAM Physical Exam Narrative Exam Narrative: Vital signs reviewed and patient is not hypoxic. General: The patient appears in mild distress secondary to pain, patient is standing at bedside, leaning over, shaking secondary to pain, no seizure, no rigors, no tremors. Not toxic, lethargic, or listless. Skin: Warm, dry, no pallor noted. There is no rash noted. Multiple tattoos, no secondary signs of infection. Head: Normocephalic, atraumatic Eye: Normal conjunctiva, no drainage, EOMI. PERRL. Ears, Nose, Mouth, and Throat: oral mucosa is moist. Nares patent. Mouth without vesicles. Cardiovascular: Regular Rate and Rhythm, no murmurs, gallops, or rubs Respiratory: Patient is in no distress, no accessory muscle use, lungs are clear to auscultation, no wheezing, rales or rhonchi Back: non-tender, no CVA tenderness bilaterally to percussion. NO CTLS midline or paraspinal tenderness to palpation. GI: Soft, moderate midepigastric tenderness to palpation, minimal right upper quadrant tenderness to palpation, abdomen is soft, no peritoneal signs, no flank pain bilateral, otherwise no tenderness to palpation, no masses appreciated. No rebound, guarding, or rigidity noted. No suprapubic tenderness to palpation Musculoskeletal: The patient has full range of motion of all extremities and joints with no difficulty. Patient has no motor, no sensory deficits. Neurological: A&O x4, normal speech, no focal neurological deficits. Psychiatric: Cooperative Const Vital Signs: 07/02/22 07:28 Temperature 97.8 F Temperature Source Temporal Pulse Rate 98 Respiratory Rate 14 Blood Pressure 123/84 H Blood Pressure Mean 97 Pulse Ox 99 Oxygen Delivery Method Room Air MDM MDM MDM Narrative Medical decision making narrative: Patient is asymptomatic at discharge. Patient's nausea has improved with Zofran and Reglan. Patient was also given Pepcid and GI cocktail. Patient's symptoms have completely resolved. Patient understands that she needs to follow-up with GI for possible repeat of and diascopy. Patient also is aware of cyclic nausea and vomiting with marijuana use. Education was done at bedside and on discharge paperwork. Patient potassium is 3.4. Patient was given a short prescription for potassium and is aware to start taking multivitamins daily. Patient was sent home with Ravindra. Patient will follow-up with PCP as needed. No questions discharge. Lab Data Attestation: I reviewed the patient's lab results. Labs: Laboratory Results - last 24 hr 07/02/22 07/02/22 07/02/22 08:20 08:20 08:20 WBC 8.3 RBC 4.66 Hgb 12.4 Hct 37.1 MCV 79.6 L MCH 26.6 L MCHC 33.4 RDW Std Deviation 42.6 RDW Coeff of Connor 14.6 Plt Count 262 MPV 11.3 Immature Gran % (Auto) 0.400 Neut % (Auto) 66.5 Lymph % (Auto) 24.2 [place] % (Auto) 6.5 Eos % (Auto) 1.8 Baso % (Auto) 0.6 Absolute Neuts (auto) 5.6 Absolute Lymphs (auto) 2.02 Nucleated RBC % 0 Sodium 139 Potassium 3.4 L Chloride 104 Carbon Dioxide 23.0 Anion Gap 12 BUN 6 L Creatinine 0.66 Estim Creat Clear Calc 121.33 Est GFR (MDRD) Af Amer 145 Est GFR (MDRD) Non-Af 120 BUN/Creatinine Ratio 9.1 L Glucose 89 Lactic Acid 0.9 Calcium 9.1 Total Bilirubin 0.60 AST 28 ALT 46 Alkaline Phosphatase 56 Total Protein 7.6 Albumin 3.5 Globulin 4.1 Albumin/Globulin Ratio 0.9 Lipase 19 Urine Color Urine Clarity Urine pH Ur Specific [place] Urine Protein Urine Glucose (UA) Urine Ketones Urine Occult Blood Urine Nitrite Urine Bilirubin Urine Urobilinogen Ur Leukocyte Esterase Urine RBC Urine WBC Ur Squamous Epith Cells Urine Bacteria Urine Mucus 07/02/22 08:25 WBC RBC Hgb Hct MCV MCH MCHC RDW Std Deviation RDW Coeff of Connor Plt Count MPV Immature Gran % (Auto) Neut % (Auto) Lymph % (Auto) [place] % (Auto) Eos % (Auto) Baso % (Auto) Absolute Neuts (auto) Absolute Lymphs (auto) Nucleated RBC % Sodium Potassium Chloride Carbon Dioxide Anion Gap BUN Creatinine Estim Creat Clear Calc Est GFR (MDRD) Af Amer Est GFR (MDRD) Non-Af BUN/Creatinine Ratio Glucose Lactic Acid Calcium Total Bilirubin AST ALT Alkaline Phosphatase Total Protein Albumin Globulin Albumin/Globulin Ratio Lipase Urine Color Yellow Urine Clarity Sl. Cloudy Urine pH 6.0 Ur Specific [place] 1.020 Urine Protein 30 H Urine Glucose (UA) Normal Urine Ketones 5 H Urine Occult Blood Negative Urine Nitrite Negative Urine Bilirubin Negative Urine Urobilinogen 8 H Ur Leukocyte Esterase 500 H Urine RBC 0 SEEN Urine WBC 25-50 SEEN Ur Squamous Epith Cells 5-10 SEEN Urine Bacteria 2+ Urine Mucus 1+ Discharge Plan Triage Chief Complaint: GI Bleed ED Provider: Wilfrid Avila Dx/Rx/DC Orders Clinical Impression: Nausea & vomiting, Upper abdominal pain Instructions: ED Cyclic Vomiting Syndrome, ED Abdominal Pain Unkn Cause Fem, ED Gastritis (Adult), ED Marijuana Abuse, ED Abd Pain Preg Gallstones Prescriptions: New ondansetron [ondansetron] 4 mg tablet,disintegrating 4 mg PO Q8H PRN PRN (Reason: Nausea) Qty: 10 0RF dicyclomine 10 mg capsule 20 mg PO TIDAC Qty: 10 0RF potassium chloride [Klor-Con M20] 20 mEq tablet,ER particles/crystals 40 meq PO DAILY Qty: 3 0RF No Action albuterol sulfate [ProAir HFA] 90 mcg/actuation Hfa Aerosol Inhaler 1 puff INHALATION Q6H PRN (Reason: ASTHMA) ondansetron 4 mg tablet,disintegrating 4 mg PO Q8H PRN PRN (Reason: Nausea) Qty: 10 0RF omeprazole 40 mg capsule,delayed release(DR/EC) 40 mg PO DAILY Qty: 30 0RF ursodiol 300 mg capsule 300 mg PO BID 14 Days Qty: 28 1RF dicyclomine 20 mg tablet 20 mg PO TID PRN (Reason: abdominal pain) Qty: 36 0RF ondansetron 8 mg tablet,disintegrating See Rx Instructions .ROUTE .COMPLEX Qty: 10 1RF Dose Instruction: TAKE 1 TABLET EVERY 8 HOURS Rx Instructions: TAKE 1 TABLET EVERY 8 HOURS Primary Care Provider: Care Physician,No Primary Referrals: Care Physician,No Primary [Primary Care Provider] - Activity Restrictions/Additional Instructions: Be cautious of marijuana use that is tied to cyclic nausea and vomiting syndrome. Education was given to you upon this. Call Dr. Kowalski office to see if you can be on a waiting list to see if he can be seen sooner than your scheduled appointment since you missed yesterday's appointment. Use nausea medication and Bentyl if needed, also use [id number] antiacid medication if needed as well that is safe for . Any other acute questions or concerns, follow-up with your [employer]. Start using and continue your vitamins, also potassium has been prescribed to you for the next 3 days, your potassium was slightly low at 3.4. Low normal potassium is 3.5. Disposition Disposition: Home, Self Care
[2022-07-02] MEDS: 0.9% Normal Saline 1,000 ML 1000 ML IV (08:23)
[2022-07-02] MEDS: Ondansetron 4 MG/2 ML Vial IV (08:24)
[2022-07-02] MEDS: Metoclopramide 10 MG/2 ML Vial IV (08:24)
[2022-07-02 08:31] LABS: Red Blood Cells-Urine 0 SEEN /hpf (0-5)
[2022-07-02 08:32] LABS: Absolute Lymphocyte Count 2.02 X10^3/uL (0.83-4.51); Absolute Neutrophil Count 5.6 X10^3/uL (2.0-7.7); Basophil# 0.05 X10^3/uL; Basophil% 0.6 % (0-1); Eosinophil# 0.15 X10^3/uL; Eosinophils% 1.8 % (0-5); Hematocrit 37.1 % (37-47); Hemoglobin 12.4 g/dL (12.0-15.0); Lymphocyte # 2.02 X10^3/ul (0.83-4.51); Lymphocyte % 24.2 % (19-41); Mean Corp Hgb Conc 33.4 g/dL (32-36); Mean Corpuscular Hgb 26.6 pg (27.0-32.0); Mean Corpuscular Volume 79.6 fL (81-99); Mean Platelet Vol. 11.3 fl (6.2-12.0); Monocyte# 0.54 X10^3/uL; Monocyte% 6.5 % (0-10); NRBC Flagged by Analyzer 0 % (0-5); Neutrophil # 5.55 X10^3/uL (2.7-7.7); Neutrophil % 66.5 % (47-70); Platelet Count 262 K/mm3 (150-450); RBC Distribution Width CV 14.6 % (11.6-14.6); RBC Distribution Width SD 42.6 fl (35.1-43.9); Red Blood Count 4.66 M/mm3 (4.2-5.4); White Blood Count 8.3 K/mm3 (4.4-11.0)
[2022-07-02] MEDS: Famotidine 200 MG/20 ML MDV 20 MG in 0.9% Normal Saline (Pres. free 8 ML 300 MG IV (08:32)
[2022-07-02] MEDS: Mag Hydrox/Al Hydrox/Simeth 30 ML UDC PO (08:32)
[2022-07-02 08:44] LABS: Color, Urine Yellow (Yellow); Glucose, Dipstick Normal (Normal); Ketone-Dipstick 5 mg/dl (Negative); Leukocyte Esterase-Dipstick 500 /ul (Negative); Nitrite-Dipstick Negative (Negative); Occult Blood-Urine Negative /ul (Negative); Protein-Dipstick 30 mg/dl (Negative); Urine Bilirubin Dipstick Negative (Negative); Urine Clarity Sl. Cloudy (Clear); Urine Urobilinogen 8 mg/dl (Normal)
[2022-07-02 08:54] LABS: Bacteria 2+ /hpf (None Seen); Mucous, Urine 1+ /hpf (<or=2+); Squamous Epithelial Cells - UA 5-10 SEEN /hpf (5-10); White Blood Cells 25-50 SEEN /hpf (0-5)
[2022-07-02 08:55] LABS: ALB/GLOB Ratio 0.9 RATIO (0.9-2.4); AST(SGOT) 28 U/L (15-37); Alanine Aminotransfer ALT/SGPT 46 U/L (13-56); Albumin, Serum 3.5 g/dL (3.2-5.0); Alkaline Phosphatase 56 U/L (45-117); Anion Gap 12 (5-15); BUN 6 mg/dL (7-18); BUN/Creat Ratio 9.1 RATIO (10-20); Calcium,Total 9.1 mg/dL (8.5-10.1); Chloride 104 mmol/L (98-107); Creatinine, Serum 0.66 mg/dL (0.55-1.02); EST Glomerular Filtration Rate 120 mL/min (>60); Est Glom Filt Rate - Afr Amer 145 mL/min (>60); Estimated Creatinine Clearance 121.33 ml/min; Globulin 4.1 g/dL (2.2-4.2); Glucose 89 mg/dL (74-106); Lipase 19 U/L (13-75); Potassium 3.4 mmol/L (3.5-5.1); Protein, Total 7.6 g/dL (6.4-8.2); Sodium Level 139 mmol/L (136-145)
[2022-07-02 09:00] LABS: Lactic Acid 0.9 mmol/L (0.4-1.9)
== END 2022-07-02 11:32 | disposition home or self-care (01) ==
PROVIDERS: Emergency Provider Emergency Medicine; Visit Provider Emergency Medicine
DX: O99.611 Diseases of the digestive system complicating pregnancy, first trimester (principal); K92.0 Hematemesis; O26.891 Other specified pregnancy related conditions, first trimester; R10.13 Epigastric pain; R10.811 Right upper quadrant abdominal tenderness; O99.321 Drug use complicating pregnancy, first trimester; F12.10 Cannabis abuse, uncomplicated; O99.331 Smoking (tobacco) complicating pregnancy, first trimester; F17.290 Nicotine dependence, other tobacco product, uncomplicated; Z79.899 Other long term (current) drug therapy; Z3A.09 9 weeks gestation of pregnancy
CPT/HCPCS: 80053; 81001; 83605; 83690; 85025; 87086; 87088; 96365; 96375; 99283; J7030; J2405; J3490

== ENCOUNTER 2022-08-01 04:19 | Emergency (ER) | payer OTHER, MEDICAID, SELFPAY ==
[2022-08-01 04:20] VITALS: BP 146/84; PULSE 84; RESP 16; TEMP 36.6; O2SAT 99; BMI 29.8
--- NOTE | 2022-08-01 04:44 | EDS_ITS ---
HPI HPI - GI History of Present Illness Chief Complaint: Abd Pain Informant: patient Narrative Narrative: Patient presents with epigastric abdominal cramping nausea vomiting. Patient states she has had gastroparesis for a long time. She sees Dr. Kowalski. They are not exactly sure why she developed this. She does smoke marijuana regularly. But she states she smokes just enough so she can eat food for the baby. She evidently is gaining weight. She is currently about 13 weeks . She is G2, P1 and her other child is about 1-year-old. She is not having any lower abdominal or pelvic pain. All her symptoms are epigastric pain nausea and vomiting which is typical for her gastroparesis. She states she did have some Zofran that was helping a little bit but she has no meds at home now to help. No known allergies. She states the symptoms got worse about a year ago after she had her gallbladder out. She has had really constant pain and nausea since then but now and then it worsens. No fevers. No urinary symptoms. No coughing. [facility] Medical History (Updated 08/01/22 @ 05:[address] Sandip Stanley MD) Anemia Anxiety Asthma Depression Low iron Marijuana use Nausea & vomiting Syncope Upper abdominal pain Wears glasses Home Medications metoclopramide HCl 10 mg tablet (Reglan) 10 mg PO Q8H PRN PRN nausea and vomiting #14 tabs 08/01/22 [Rx Last Taken Unknown] ondansetron 4 mg disintegrating tablet 4 mg PO Q8H PRN PRN Nausea #10 tabs 08/01/22 [Rx Last Taken Unknown] Allergy/AdvReac Type Severity Reaction Status Date / Time No Known Allergies Allergy Verified 08/01/22 04:20 Family History Father Diabetes Mother Depression Grandmother Breast cancer Surgical History H/O dilation and curettage History of adenoidectomy History of cholecystectomy (~09/2021) Hx of tonsillectomy Social History household members: significant other Smoking Status: Current every day smoker tobacco type: e-cigarettes alcohol intake: never substance use type: marijuana ROS ROS ED ROS Narrative A complete review of systems was performed and is negative except as documented in the history of present illness. Some specific details below. Constitutional: No recent fevers or chills. No malaise. EYE: No visual complaints or pain. No icterus ENT: No difficulty swallowing. No swelling. No pain. No GERD symptoms CV: No chest pain or palpitations. Respiratory: No dyspnea. No hemoptysis. No difficulty taking breaths. GI: Please see history of present illness. : No frequency dysuria or hematuria. She has no pelvic pain. No bleeding. No discharge. Musculoskeletal: No recent trauma. No pains. Skin: No rash. Nondiaphoretic. Neuro: No weakness or numbness. Endocrine: No polyuria or polydipsia. EXAM Physical Exam Narrative Exam Narrative: CONSTITUTIONAL: Patient is rocking on the bed. She is leaning forward and almost turning upside down on her head. After a few moments she takes deep breaths and is able to sit back and carry on a pretty normal conversation. HEENT: No notable trauma. Mucous membranes do still look moist. No sinus tenderness. No indication of pain with swallowing. EYES: No conjunctival injection. No proptosis. CARDIOVASCULAR: Regular rate. Regular rhythm. No notable murmur. No JVD. RESPIRATORY: No respiratory distress. Breathing is unlabored. No wheezes. No rhonchi. No rales. No pain with a deep breath. GASTROINTESTINAL: Not distended. Bowel sounds are normal. Sounds do not sound increased or decreased. She does have epigastric tenderness. The rest of the abdomen is actually quite benign. No lower abdominal or pelvic tenderness. GENITOURINARY: No tenderness over the bladder. No CVA tenderness. MUSCULOSKELETAL: Atraumatic. No peripheral edema. No cord. No tenderness along the deep venous system. No asymmetry. NEUROLOGICAL: Patient is alert and appropriate. No focal deficit noted. SKIN: No noted rashes. No diaphoresis. PSYCHIATRIC: Patient is a bit anxious but does calm down with talking. Const Vital Signs: 08/01/22 04:20 Temperature 97.9 F Temperature Source Oral Pulse Rate 84 Respiratory Rate 16 Blood Pressure 146/84 H Blood Pressure Mean 104 Pulse Ox 99 MDM MDM MDM Narrative Medical decision making narrative: Patient CBC shows normal white count hemoglobin and platelets. Patient's electrolytes are all unremarkable. Minimal elevation of chloride. No sign of dehydration. Glucose is normal at 93. Patient's liver function test are normal. Patient's lipase is just mildly elevated about 1-1/2-2 times normal at 137. But her pain is all high epigastric and does not radiate to the back. She is not drinking alcohol. She is already had a cholecystectomy. I do not think this represents acute significant pancreatitis at this point. With this lab, her history, her presentation and exam, and being I do not think a CT scan of the abdomen is appropriate or indicated. Patient decided that she wanted to go home. She got IV fluids and was feeling better. She wanted something for pain. We had given her Reglan. I will write for some Reglan and Zofran for home. Lab Data Labs: Laboratory Results - last 24 hr 08/01/22 08/01/22 04:30 04:30 WBC 10.3 RBC 4.57 Hgb 12.3 Hct 36.8 L MCV 80.5 L MCH 26.9 L MCHC 33.4 RDW Std Deviation 43.1 RDW Coeff of Connor 14.7 H Plt Count 258 MPV 11.4 Immature Gran % (Auto) 0.500 Neut % (Auto) 75.6 H Lymph % (Auto) 17.7 L [place] % (Auto) 4.5 Eos % (Auto) 1.3 Baso % (Auto) 0.4 Absolute Neuts (auto) 7.8 H Absolute Lymphs (auto) 1.81 Nucleated RBC % 0 Sodium 138 Potassium 3.7 Chloride 108 H Carbon Dioxide 23.0 Anion Gap 7 BUN 6 L Creatinine 0.59 Estim Creat Clear Calc 135.72 Est GFR (MDRD) Af Amer 164 Est GFR (MDRD) Non-Af 135 BUN/Creatinine Ratio 10.1 Glucose 93 Calcium 8.9 Total Bilirubin 0.30 AST 9 L ALT 9 L Alkaline Phosphatase 65 Total Protein 7.5 Albumin 3.3 Globulin 4.2 Albumin/Globulin Ratio 0.8 L Lipase 137 H Discharge Plan Triage Chief Complaint: Abd Pain ED Provider: Sandip Stanley Dx/Rx/DC Orders Clinical Impression: Nausea & vomiting, Cannabis hyperemesis syndrome concurrent with and due to cannabis abuse, Second trimester Instructions: Gastroparesis, ED Vomiting (Adult) Prescriptions: New ondansetron [ondansetron] 4 mg tablet,disintegrating 4 mg PO Q8H PRN PRN (Reason: Nausea) Qty: 10 0RF metoclopramide HCl [Reglan] 10 mg tablet 10 mg PO Q8H PRN PRN (Reason: nausea and vomiting) Qty: 14 0RF Primary Care Provider: Care Physician,No Primary Referrals: Monica Rodriguez DO [Med Staff - Active Staff] - Keep Kash appointment Rodrick Kowalski DO [Med Staff - Active Staff] - As soon as possible Care Physician,No Primary [Primary Care Provider] - Disposition Disposition: Home, Self Care
[2022-08-01] MEDS: Ondansetron 4 MG/2 ML Vial IV (04:49)
[2022-08-01] MEDS: Metoclopramide 10 MG/2 ML Vial 5 MG IV (04:49)
[2022-08-01] MEDS: 0.9% Normal Saline 1,000 ML 1000 ML IV (04:49)
[2022-08-01 04:56] LABS: Absolute Lymphocyte Count 1.81 X10^3/uL (0.83-4.51); Absolute Neutrophil Count 7.8 X10^3/uL (2.0-7.7); Basophil# 0.04 X10^3/uL; Basophil% 0.4 % (0-1); Eosinophil# 0.13 X10^3/uL; Eosinophils% 1.3 % (0-5); Hematocrit 36.8 % (37-47); Hemoglobin 12.3 g/dL (12.0-15.0); Lymphocyte # 1.81 X10^3/ul (0.83-4.51); Lymphocyte % 17.7 % (19-41); Mean Corp Hgb Conc 33.4 g/dL (32-36); Mean Corpuscular Hgb 26.9 pg (27.0-32.0); Mean Corpuscular Volume 80.5 fL (81-99); Mean Platelet Vol. 11.4 fl (6.2-12.0); Monocyte# 0.46 X10^3/uL; Monocyte% 4.5 % (0-10); NRBC Flagged by Analyzer 0 % (0-5); Neutrophil # 7.76 X10^3/uL (2.7-7.7); Neutrophil % 75.6 % (47-70); Platelet Count 258 K/mm3 (150-450); RBC Distribution Width CV 14.7 % (11.6-14.6); RBC Distribution Width SD 43.1 fl (35.1-43.9); Red Blood Count 4.57 M/mm3 (4.2-5.4); White Blood Count 10.3 K/mm3 (4.4-11.0)
[2022-08-01 05:19] LABS: ALB/GLOB Ratio 0.8 RATIO (0.9-2.4); AST(SGOT) 9 U/L (15-37); Alanine Aminotransfer ALT/SGPT 9 U/L (13-56); Albumin, Serum 3.3 g/dL (3.2-5.0); Alkaline Phosphatase 65 U/L (45-117); Anion Gap 7 (5-15); BUN 6 mg/dL (7-18); BUN/Creat Ratio 10.1 RATIO (10-20); Calcium,Total 8.9 mg/dL (8.5-10.1); Chloride 108 mmol/L (98-107); Creatinine, Serum 0.59 mg/dL (0.55-1.02); EST Glomerular Filtration Rate 135 mL/min (>60); Est Glom Filt Rate - Afr Amer 164 mL/min (>60); Estimated Creatinine Clearance 135.72 ml/min; Globulin 4.2 g/dL (2.2-4.2); Glucose 93 mg/dL (74-106); Lipase 137 U/L (13-75); Potassium 3.7 mmol/L (3.5-5.1); Protein, Total 7.5 g/dL (6.4-8.2); Sodium Level 138 mmol/L (136-145)
[2022-08-01 05:43] VITALS: BP 104/76; PULSE 81; RESP 16; O2SAT 99
== END 2022-08-01 05:44 | disposition home or self-care (01) ==
PROVIDERS: Emergency Provider Emergency Medicine; Visit Provider Emergency Medicine
DX: O99.321 Drug use complicating pregnancy, first trimester (principal); R11.2 Nausea with vomiting, unspecified; F12.10 Cannabis abuse, uncomplicated; O99.611 Diseases of the digestive system complicating pregnancy, first trimester; K31.84 Gastroparesis; O26.891 Other specified pregnancy related conditions, first trimester; Z3A.13 13 weeks gestation of pregnancy; R10.13 Epigastric pain; O99.331 Smoking (tobacco) complicating pregnancy, first trimester; F17.290 Nicotine dependence, other tobacco product, uncomplicated; Z90.49 Acquired absence of other specified parts of digestive tract
CPT/HCPCS: 80053; 83690; 85025; 96361; 96374; 96375; 99283; J7030; A4216; J2405

== ENCOUNTER 2022-09-13 09:17 | Emergency (ER) | payer OTHER, MEDICAID, SELFPAY ==
[2022-09-13 09:19] VITALS: BP 126/74; PULSE 88; RESP 12; TEMP 36.2; O2SAT 95; BMI 30.3
[2022-09-13] MEDS: Ondansetron 4 MG/2 ML Vial IV (10:12)
[2022-09-13] MEDS: 0.9% Normal Saline 1,000 ML 1000 ML IV (10:12)
[2022-09-13 10:19] LABS: Absolute Lymphocyte Count 1.77 X10^3/uL (0.83-4.51); Absolute Neutrophil Count 7.7 X10^3/uL (2.0-7.7); Basophil# 0.04 X10^3/uL; Basophil% 0.4 % (0-1); Eosinophil# 0.28 X10^3/uL; Eosinophils% 2.7 % (0-5); Hematocrit 36.7 % (37-47); Hemoglobin 12.7 g/dL (12.0-15.0); Lymphocyte # 1.77 X10^3/ul (0.83-4.51); Lymphocyte % 17.3 % (19-41); Mean Corp Hgb Conc 34.6 g/dL (32-36); Mean Corpuscular Hgb 27.7 pg (27.0-32.0); Mean Corpuscular Volume 80.1 fL (81-99); Mean Platelet Vol. 10.7 fl (6.2-12.0); Monocyte# 0.44 X10^3/uL; Monocyte% 4.3 % (0-10); NRBC Flagged by Analyzer 0 % (0-5); Neutrophil # 7.67 X10^3/uL (2.7-7.7); Neutrophil % 74.9 % (47-70); Platelet Count 273 K/mm3 (150-450); RBC Distribution Width CV 14.5 % (11.6-14.6); RBC Distribution Width SD 41.6 fl (35.1-43.9); Red Blood Count 4.58 M/mm3 (4.2-5.4); White Blood Count 10.2 K/mm3 (4.4-11.0)
[2022-09-13 10:27] LABS: Mucous, Urine 0 SEEN /hpf (<or=2+); Red Blood Cells-Urine 0 SEEN /hpf (0-5)
[2022-09-13 10:31] LABS: Color, Urine Yellow (Yellow); Glucose, Dipstick Normal (Normal); Ketone-Dipstick Negative (Negative); Leukocyte Esterase-Dipstick 500 /ul (Negative); Nitrite-Dipstick Negative (Negative); Occult Blood-Urine Negative /ul (Negative); Protein-Dipstick 30 mg/dl (Negative); Specific Gravity, Urine 1.015 (1.002-1.030); Urine Bilirubin Dipstick Negative (Negative); Urine Clarity Clear (Clear); Urine Urobilinogen Normal (Normal)
[2022-09-13 10:35] LABS: ALB/GLOB Ratio 0.7 RATIO (0.9-2.4); AST(SGOT) 8 U/L (15-37); Alanine Aminotransfer ALT/SGPT 12 U/L (13-56); Alkaline Phosphatase 75 U/L (45-117); Anion Gap 6 (5-15); BUN 4 mg/dL (7-18); BUN/Creat Ratio 9.2 RATIO (10-20); Calcium,Total 8.5 mg/dL (8.5-10.1); Chloride 108 mmol/L (98-107); Creatinine, Serum 0.44 mg/dL (0.55-1.02); EST Glomerular Filtration Rate 192 mL/min (>60); Est Glom Filt Rate - Afr Amer 232 mL/min (>60); Estimated Creatinine Clearance 181.99 ml/min; Globulin 4.4 g/dL (2.2-4.2); Glucose 93 mg/dL (74-106); Lipase 20 U/L (13-75); Potassium 4.1 mmol/L (3.5-5.1); Protein, Total 7.4 g/dL (6.4-8.2); Sodium Level 135 mmol/L (136-145)
[2022-09-13 10:41] LABS: Bacteria 1+ /hpf (None Seen); Squamous Epithelial Cells - UA 5-10 SEEN /hpf (5-10); White Blood Cells 10-25 SEEN /hpf (0-5)
--- NOTE | 2022-09-13 10:53 | ED.VIS.GI ---
HPI HPI - GI History of Present Illness Chief Complaint: Abd Pain Informant: patient Narrative Narrative: 20 weeks gestation second sudden generalized abdominal pain this morning with nausea. No vomiting. Normal bowel movement this morning. Reports history of gastroparesis. She is not a diabetic. She is followed by Dr. Kowalski. She states pending upcoming studies however she is currently . She is followed by Dr. Mike Rodriguez. Appointment coming in 3 days. Denies vaginal bleeding denies dysuria. She reports symptoms started after her cholecystectomy a year ago performed by Dr. Thornton. Denies fevers chills or sweats. Reports decreased movement. After evaluation the patient work-up initiated records notes she has cannabis dependence, apparently still using during she was in the ED there is also mention on her GI visit. Discussed with the patient, states she tried quitting however symptoms worsen therefore still smokes. PFSH PFSH Medical History Anemia Anxiety Asthma Depression Low iron Marijuana use Nausea & vomiting Syncope Upper abdominal pain Wears glasses Home Medications metoclopramide HCl 10 mg tablet (Reglan) 10 mg PO Q8H PRN PRN nausea and vomiting #14 tabs 08/01/22 [Rx Last Taken Unknown] ondansetron 4 mg disintegrating tablet 4 mg PO Q8H PRN PRN Nausea #10 tabs 08/01/22 [Rx Last Taken Unknown] pantoprazole 40 mg tablet,delayed release 40 mg PO BID 1 month #60 tabs 08/02/22 [Rx Last Taken Unknown] cephalexin 500 mg capsule 500 mg PO Q12 #10 CAPSULES 09/13/22 [Rx Last Taken Unknown] metoclopramide HCl 10 mg tablet 10 mg PO 4X/DAY PRN Headache #20 tabs 09/13/22 [Rx Last Taken Unknown] Allergy/AdvReac Type Severity Reaction Status Date / Time No Known Allergies Allergy Verified 09/13/22 09:18 Family History Father Diabetes Mother Depression Grandmother Breast cancer Surgical History H/O dilation and curettage History of adenoidectomy History of cholecystectomy (~09/2021) Hx of tonsillectomy Social History household members: significant other Smoking Status: Current every day smoker tobacco type: e-cigarettes alcohol intake: never substance use type: marijuana ROS ROS ED Constitutional Constitutional ED: Denies chills, fever(s) or sweats Eyes Eyes: Denies change in vision ENT ENT ED: Denies dysphagia or sore throat Cardiovascular Cardiovascular: Denies chest pain, leg edema, palpitations or racing heartbeat Respiratory/Chest Respiratory/Chest: Denies cough, dyspnea or dyspnea on exertion Gastrointestinal Gastrointestinal: Reports abdominal pain and nausea; Denies diarrhea or vomiting Genitourinary Genitourinary ED: Denies dysuria, hematuria or urinary frequency Musculoskeletal Musculoskeletal: Denies back pain, extremity pain or neck pain Integumentary Denies rash or wounds Neurologic Neurologic: Denies headache(s), paresthesias or weakness EXAM Physical Exam Const Vital Signs: 09/13/22 09:19 Temperature 97.2 F L Temperature Source Temporal Pulse Rate 88 Respiratory Rate 12 Blood Pressure 126/74 H Blood Pressure Mean 91 Pulse Ox 95 Oxygen Delivery Method Room Air Positive well nourished and well developed General Appearance ED: well developed and NAD HEENT Reports moist mucous membranes normocephalic and atraumatic Eyes PERRL, EOMs intact bilaterally and conjunctivae normal General Eye ED: Yes normal appearance of both eyes Neck no lymphadenopathy and supple General: Negative for tenderness Chest Wall Chest: Negative for tenderness Resp normal respiratory effort and normal air movement Effort and Inspection: symmetric chest movement; Negative for respiratory distress Cardio regular rate, regular rhythm and no murmurs Peripheral Pulses: pulses 2+ throughout GI normal to inspection, nondistended, normoactive bowel sounds GI Narrative: Some epigastric tenderness, negative Rivera's or McBurney's. Palpation: Negative for guarding or rebound tenderness present Back/Spine no CVA tenderness and no thoracic nor lumbar tenderness Extremity normal to inspection General Extremety ED: Negative for edema or tenderness General Extremity: Negative for edema Neuro oriented x3 and no sensory deficits noted Sensorium / Orientation: awake and alert Skin no rashes or lesions noted and no wounds MDM MDM MDM Narrative Medical decision making narrative: Interventions / MDM: Differential diagnosis: Cannabis dependence, gastritis, second trimester Diagnosis considered but do not suspect: No clinical appendicitis My EKG interpretation: N/A Imaging independently reviewed and interpreted by myself: N/A External documents reviewed: N/A Test considered but not ordered:N/A ED course: Patient reports generalized abdominal pain nonsurgical abdomen. IV established by all stable. Did she treated with Zofran IV fluids with improving symptoms. Bedside ultrasound performed by myself normal heart tones with positive movement with her concerns. Urine did note signs of infection culture sent. With her started on Keflex twice a day first dose in ED. She has Zofran at home states Reglan has 2 tabs left. We will refill this. Discussed cessation of cannabis. She is appointment with her OB in 3 days. She will keep this appointment. Outpatient follow-up with return precautions. All questions were answered. Re-evaluation: stable Disposition discussed with patient/family/significant other: Patient Case discussed with consulting clinician: N/A This note was generated with [employer] dictation software. It may contain incorrect words, spelling, and punctuation that were not noted in checking the note before signing. Lab Data Attestation: I reviewed the patient's lab results. Labs: Laboratory Results - last 24 hr 09/13/22 09/13/22 10:10 10:15 WBC 10.2 RBC 4.58 Hgb 12.7 Hct 36.7 L MCV 80.1 L MCH 27.7 MCHC 34.6 RDW Std Deviation 41.6 RDW Coeff of Connor 14.5 Plt Count 273 MPV 10.7 Immature Gran % (Auto) 0.400 Neut % (Auto) 74.9 H Lymph % (Auto) 17.3 L [place] % (Auto) 4.3 Eos % (Auto) 2.7 Baso % (Auto) 0.4 Absolute Neuts (auto) 7.7 Absolute Lymphs (auto) 1.77 Nucleated RBC % 0 Sodium 135 L Potassium 4.1 Chloride 108 H Carbon Dioxide 21.0 Anion Gap 6 BUN 4 L Creatinine 0.44 L Estim Creat Clear Calc 181.99 Est GFR (MDRD) Af Amer 232 Est GFR (MDRD) Non-Af 192 BUN/Creatinine Ratio 9.2 L Glucose 93 Calcium 8.5 Total Bilirubin 0.30 AST 8 L ALT 12 L Alkaline Phosphatase 75 Total Protein 7.4 Albumin 3.0 L Globulin 4.4 H Albumin/Globulin Ratio 0.7 L Lipase 20 Urine Color Yellow Urine Clarity Clear Urine pH 6.0 Ur Specific [place] 1.015 Urine Protein 30 H Urine Glucose (UA) Normal Urine Ketones Negative Urine Occult Blood Negative Urine Nitrite Negative Urine Bilirubin Negative Urine Urobilinogen Normal Ur Leukocyte Esterase 500 H Urine RBC 0 SEEN Urine WBC 10-25 SEEN Ur Squamous Epith Cells 5-10 SEEN Urine Bacteria 1+ Urine Mucus 0 SEEN Discharge Plan Triage Chief Complaint: Abd Pain ED Provider: Hamzah Holden Dx/Rx/DC Orders Clinical Impression: Cannabis dependence, UTI in , Second trimester , Decreased movement Instructions: Cannabis Use in , Urinary Tract Infections in Women, 2nd Trimester Changes Prescriptions: New cephalexin [cephalexin] 500 mg capsule 500 mg PO Q12 Qty: 10 0RF metoclopramide HCl [metoclopramide HCl] 10 mg tablet 10 mg PO 4X/DAY PRN (Reason: Headache) Qty: 20 0RF No Action ondansetron [ondansetron] 4 mg tablet,disintegrating 4 mg PO Q8H PRN PRN (Reason: Nausea) Qty: 10 0RF metoclopramide HCl [Reglan] 10 mg tablet 10 mg PO Q8H PRN PRN (Reason: nausea and vomiting) Qty: 14 0RF pantoprazole 40 mg tablet,delayed release (DR/EC) 40 mg PO BID 30 Days Qty: 60 3RF Primary Care Provider: Care Physician,No Primary Referrals: Mike Rodriguez MD [Med Staff - Active Staff] - Keep Kash appointment FriendRodrick DO [Med Staff - Active Staff] - 1-2 Weeks Care Physician,No Primary [Primary Care Provider] - Activity Restrictions/Additional Instructions: Bedside ultrasound normal heart tone and movements. UTI in take antibiotic as prescribed. Stop cannabis use. Use medications as prescribed. Follow-up with your doctors. Disposition Disposition: Home, Self Care Discharge Date/Time: 09/13/22 12:04
[2022-09-13] MEDS: Cephalexin 250 MG Capsule 500 MG PO (12:00)
--- NOTE | 2022-09-14 12:19 | ED.RN ---
[facility] DID NOT GO THROUGH YESTERDAY FOR PT. THIS RN CALLED IN [facility], SPOKE WITH PHARMACIST PHILLIP. [facility] SUCCESSFULLY CALLED IN FOR PT.
== END 2022-09-13 12:04 | disposition home or self-care (01) ==
PROVIDERS: Emergency Provider Emergency Medicine; Visit Provider Emergency Medicine
DX: O99.322 Drug use complicating pregnancy, second trimester (principal); F12.20 Cannabis dependence, uncomplicated; O23.42 Unspecified infection of urinary tract in pregnancy, second trimester; O36.8120 Decreased fetal movements, second trimester, not applicable or unspecified; F17.290 Nicotine dependence, other tobacco product, uncomplicated; Z3A.20 20 weeks gestation of pregnancy; O99.332 Smoking (tobacco) complicating pregnancy, second trimester
CPT/HCPCS: 80053; 81001; 83690; 85025; 87086; 87088; 96361; 96374; 99283; J7030; J2405

== ENCOUNTER 2022-10-14 07:10 | Emergency (ER) | payer OTHER, MEDICAID, SELFPAY ==
[2022-10-14 07:11] VITALS: BP 127/69; PULSE 81; RESP 14; TEMP 36; O2SAT 99; BMI 31.6
--- NOTE | 2022-10-14 07:30 | ED.VIS.GI ---
HPI HPI - GI History of Present Illness Chief Complaint: Abd Pain Informant: patient Narrative Narrative: Recurrent nausea vomiting 3 AM this morning. 24-week gestation. History of THC use also. Reporting last use now a week ago. No diarrhea. History of cholecystectomy. Similar presentation was seen a month ago. Followed by Dr. Mike Rodriguez. Also followed by GI, Dr. Kowalski. Prior similar symptoms: Yes PFSH PFSH Medical History Anemia Anxiety Asthma Depression Low iron Marijuana use Nausea & vomiting Syncope Upper abdominal pain Wears glasses Home Medications metoclopramide HCl 10 mg tablet (Reglan) 10 mg PO Q8H PRN PRN nausea and vomiting #14 tabs 08/01/22 [Rx Last Taken Unknown] ondansetron 4 mg disintegrating tablet 4 mg PO Q8H PRN PRN Nausea #10 tabs 08/01/22 [Rx Last Taken Unknown] pantoprazole 40 mg tablet,delayed release 40 mg PO BID 1 month #60 tabs 08/02/22 [Rx Last Taken Unknown] cephalexin 500 mg capsule 500 mg PO Q12 #10 CAPSULES 09/13/22 [Rx Last Taken Unknown] metoclopramide HCl 10 mg tablet 10 mg PO 4X/DAY PRN Headache #20 tabs 09/13/22 [Rx Last Taken Unknown] Allergy/AdvReac Type Severity Reaction Status Date / Time No Known Allergies Allergy Verified 09/13/22 09:18 Family History Father Diabetes Mother Depression Grandmother Breast cancer Surgical History H/O dilation and curettage History of adenoidectomy History of cholecystectomy (~09/2021) Hx of tonsillectomy Social History household members: significant other Smoking Status: Current every day smoker tobacco type: e-cigarettes alcohol intake: never substance use type: marijuana ROS ROS ED Constitutional Constitutional ED: Denies chills, fever(s) or sweats Eyes Eyes: Denies change in vision ENT ENT ED: Denies dysphagia or sore throat Cardiovascular Cardiovascular: Denies chest pain, leg edema, palpitations or racing heartbeat Respiratory/Chest Respiratory/Chest: Denies cough, dyspnea or dyspnea on exertion Gastrointestinal Gastrointestinal: Reports nausea and vomiting; Denies abdominal pain or diarrhea Genitourinary Genitourinary ED: Denies dysuria, hematuria or urinary frequency Musculoskeletal Musculoskeletal: Denies back pain, extremity pain or neck pain Integumentary Denies rash or wounds Neurologic Neurologic: Denies headache(s), paresthesias or weakness EXAM Physical Exam Const Vital Signs: 10/14/22 07:11 Temperature 96.8 F L Temperature Source Temporal Pulse Rate 81 Respiratory Rate 14 Blood Pressure 127/69 H Blood Pressure Mean 88 Pulse Ox 99 Oxygen Delivery Method Room Air Positive well nourished and well developed Constitutional Narrative: Standing bedside bent over on the bed. Nontoxic. General Appearance ED: well developed HEENT Reports moist mucous membranes normocephalic and atraumatic Eyes PERRL, EOMs intact bilaterally and conjunctivae normal General Eye ED: Yes normal appearance of both eyes Neck no lymphadenopathy and supple General: Negative for tenderness Chest Wall Chest: Negative for tenderness Resp normal respiratory effort and normal air movement Effort and Inspection: symmetric chest movement; Negative for respiratory distress Cardio regular rate, regular rhythm and no murmurs Peripheral Pulses: pulses 2+ throughout GI normal to inspection, nondistended, normoactive bowel sounds GI Narrative: Soft, no guarding or rebound Palpation: Negative for guarding or rebound tenderness present Back/Spine no CVA tenderness and no thoracic nor lumbar tenderness Extremity normal to inspection General Extremety ED: Negative for edema or tenderness General Extremity: Negative for edema Neuro oriented x3 and no sensory deficits noted Sensorium / Orientation: awake and alert Skin no rashes or lesions noted and no wounds MDM MDM MDM Narrative Medical decision making narrative: Interventions / MDM: Differential diagnosis: Cannabis hyperemesis syndrome, second trimester , hyperemesis gravidarum Diagnosis considered but do not suspect: N/A My EKG interpretation: N/A Imaging independently reviewed and interpreted by myself: N/A External documents reviewed: N/A Test considered but not ordered:N/A ED course: Patient presents for vomiting throughout the night marijuana history long second trimester . Nonsurgical abdomen on exam. Presenting with concerns similar presentation for cannabis use in the past. Labs were ordered urine test fluids and Zofran. heart tones 136 laboratory studies being normal. Prior to reevaluation the patient nursing comes to me stating patient went to leave [facility]. Paperwork was signed. Re-evaluation: stable Disposition discussed with patient/family/significant other: Case discussed with consulting clinician: N/A This note was generated with [employer] dictation software. It may contain incorrect words, spelling, and punctuation that were not noted in checking the note before signing. Lab Data Attestation: I reviewed the patient's lab results. Labs: Laboratory Results - last 24 hr 10/14/22 07:45 WBC 10.5 RBC 4.55 Hgb 12.3 Hct 38.0 MCV 83.5 MCH 27.0 MCHC 32.4 RDW Std Deviation 43.1 RDW Coeff of Connor 14.1 Plt Count 255 MPV 10.6 Immature Gran % (Auto) 0.600 Neut % (Auto) 73.1 H Lymph % (Auto) 19.1 [place] % (Auto) 4.8 Eos % (Auto) 2.0 Baso % (Auto) 0.4 Absolute Neuts (auto) 7.7 Absolute Lymphs (auto) 2.01 Nucleated RBC % 0 Sodium 138 Potassium 4.2 Chloride 109 H Carbon Dioxide 23.0 Anion Gap 6 BUN 5 L Creatinine 0.58 Estim Creat Clear Calc 138.06 Est GFR (MDRD) Af Amer 167 Est GFR (MDRD) Non-Af 138 BUN/Creatinine Ratio 8.6 L Glucose 83 Calcium 8.7 Total Bilirubin 0.30 AST 10 L ALT 12 L Alkaline Phosphatase 90 Total Protein 7.2 Albumin 2.8 L Globulin 4.4 H Albumin/Globulin Ratio 0.6 L Lipase 24 Discharge Plan Triage Chief Complaint: Abd Pain ED Provider: Hamzah Holden Dx/Rx/DC Orders Clinical Impression: Cannabis hyperemesis syndrome concurrent with and due to cannabis abuse, Nausea & vomiting, Second trimester Prescriptions: No Action ondansetron [ondansetron] 4 mg tablet,disintegrating 4 mg PO Q8H PRN PRN (Reason: Nausea) Qty: 10 0RF metoclopramide HCl [Reglan] 10 mg tablet 10 mg PO Q8H PRN PRN (Reason: nausea and vomiting) Qty: 14 0RF cephalexin [cephalexin] 500 mg capsule 500 mg PO Q12 Qty: 10 0RF metoclopramide HCl [metoclopramide HCl] 10 mg tablet 10 mg PO 4X/DAY PRN (Reason: Headache) Qty: 20 0RF pantoprazole 40 mg tablet,delayed release (DR/EC) 40 mg PO BID 30 Days Qty: 60 3RF Primary Care Provider: Care Physician,No Primary Referrals: Care Physician,No Primary [Primary Care Provider] - Disposition Disposition: Against Medical Advice Discharge Date/Time: 10/14/22 08:53
[2022-10-14] MEDS: Ondansetron 4 MG/2 ML Vial IV (07:51)
[2022-10-14] MEDS: 0.9% Normal Saline 1,000 ML 1000 ML IV (07:51)
[2022-10-14 07:52] LABS: Absolute Lymphocyte Count 2.01 X10^3/uL (0.83-4.51); Absolute Neutrophil Count 7.7 X10^3/uL (2.0-7.7); Basophil# 0.04 X10^3/uL; Basophil% 0.4 % (0-1); Eosinophil# 0.21 X10^3/uL; Hemoglobin 12.3 g/dL (12.0-15.0); Lymphocyte # 2.01 X10^3/ul (0.83-4.51); Lymphocyte % 19.1 % (19-41); Mean Corp Hgb Conc 32.4 g/dL (32-36); Mean Corpuscular Volume 83.5 fL (81-99); Mean Platelet Vol. 10.6 fl (6.2-12.0); Monocyte% 4.8 % (0-10); NRBC Flagged by Analyzer 0 % (0-5); Neutrophil % 73.1 % (47-70); Platelet Count 255 K/mm3 (150-450); RBC Distribution Width CV 14.1 % (11.6-14.6); RBC Distribution Width SD 43.1 fl (35.1-43.9); Red Blood Count 4.55 M/mm3 (4.2-5.4); White Blood Count 10.5 K/mm3 (4.4-11.0)
[2022-10-14 08:25] LABS: ALB/GLOB Ratio 0.6 RATIO (0.9-2.4); AST(SGOT) 10 U/L (15-37); Alanine Aminotransfer ALT/SGPT 12 U/L (13-56); Albumin, Serum 2.8 g/dL (3.2-5.0); Alkaline Phosphatase 90 U/L (45-117); Anion Gap 6 (5-15); BUN 5 mg/dL (7-18); BUN/Creat Ratio 8.6 RATIO (10-20); Calcium,Total 8.7 mg/dL (8.5-10.1); Chloride 109 mmol/L (98-107); Creatinine, Serum 0.58 mg/dL (0.55-1.02); EST Glomerular Filtration Rate 138 mL/min (>60); Est Glom Filt Rate - Afr Amer 167 mL/min (>60); Estimated Creatinine Clearance 138.06 ml/min; Globulin 4.4 g/dL (2.2-4.2); Glucose 83 mg/dL (74-106); Lipase 24 U/L (13-75); Potassium 4.2 mmol/L (3.5-5.1); Protein, Total 7.2 g/dL (6.4-8.2); Sodium Level 138 mmol/L (136-145)
--- NOTE | 2022-10-14 08:52 | ED.RN ---
Pt. requested to leave [facility] as requests for pain medications were denied.
== END 2022-10-14 08:53 | disposition left against medical advice (07) ==
PROVIDERS: Emergency Provider Emergency Medicine; Visit Provider Emergency Medicine
DX: O99.322 Drug use complicating pregnancy, second trimester (principal); R11.2 Nausea with vomiting, unspecified; F12.10 Cannabis abuse, uncomplicated; O99.332 Smoking (tobacco) complicating pregnancy, second trimester; F17.290 Nicotine dependence, other tobacco product, uncomplicated; Z3A.24 24 weeks gestation of pregnancy; Z53.29 Procedure and treatment not carried out because of patient's decision for other reasons
CPT/HCPCS: 80053; 83690; 85025; 96361; 96374; 99282; J7030; A4216; J2405

== ENCOUNTER 2022-10-19 08:06 | Emergency (ER) | payer OTHER, MEDICAID, SELFPAY ==
[2022-10-19 08:07] VITALS: BP 132/78; PULSE 89; RESP 14; TEMP 36.4; O2SAT 98; BMI 31.6
--- NOTE | 2022-10-19 08:41 | ED.VIS.GI ---
HPI HPI - GI History of Present Illness Chief Complaint: Abd Pain Informant: patient Abdominal Pain/Flank Pain Onset: Today Timing: Continuous Quality: Cramping Location: Diffuse Worsened by: Food Relieved by: - (Hot showers) Nausea/Vomiting/Emesis GI Symptom: Positive for Nausea and Vomiting Quality: Positive for Nonbilious and Blood streaks; Negative for Coffee ground or Hematemesis Diarrhea/Melena/Hematochezia GI Symptom: Positive for Diarrhea; Negative for Melena or Hematochezia Associated Symptoms Associated Symptoms: Negative for Dysuria, Frequency or Hematuria Narrative Narrative: Patient presents with abdominal pain, nausea, vomiting, and diarrhea that became worse today. Patient states she has a history of gastroparesis and has some vomiting every day. Patient states it is worse today. Patient noted some blood streaks in her emesis today. Patient states her pain is diffuse. Patient describes her pain as cramping. Patient states it is worse with eating. Patient states it is better with taking a hot shower. Patient states she is approximately 25 weeks . Patient denies any dysuria, frequency, or hematuria. Patient denies any fevers but admits to some subjective chills. [facility] Medical History Anemia Anxiety Asthma Depression Low iron Marijuana use Nausea & vomiting Syncope Upper abdominal pain Wears glasses Home Medications metoclopramide HCl 10 mg tablet (Reglan) 10 mg PO Q8H PRN PRN nausea and vomiting #14 tabs 08/01/22 [Rx Last Taken Unknown] ondansetron 4 mg disintegrating tablet 4 mg PO Q8H PRN PRN Nausea #10 tabs 08/01/22 [Rx Last Taken Unknown] pantoprazole 40 mg tablet,delayed release 40 mg PO BID 1 month #60 tabs 08/02/22 [Rx Last Taken Unknown] cephalexin 500 mg capsule 500 mg PO Q12 #10 CAPSULES 09/13/22 [Rx Last Taken Unknown] metoclopramide HCl 10 mg tablet 10 mg PO 4X/DAY PRN Headache #20 tabs 09/13/22 [Rx Last Taken Unknown] Allergy/AdvReac Type Severity Reaction Status Date / Time No Known Allergies Allergy Verified 10/19/22 08:07 Family History Father Diabetes Mother Depression Grandmother Breast cancer Surgical History H/O dilation and curettage History of adenoidectomy History of cholecystectomy (~09/2021) Hx of tonsillectomy Social History household members: significant other Smoking Status: Current every day smoker tobacco type: e-cigarettes alcohol intake: never substance use type: marijuana ROS ROS ED Constitutional Constitutional ED: Reports chills and subjective; Denies fever(s) Eyes Eyes: Denies blurry vision or change in vision ENT ENT ED: Denies rhinorrhea or sore throat Cardiovascular Cardiovascular: Denies chest pain or palpitations Respiratory/Chest Respiratory/Chest: Denies cough or dyspnea Gastrointestinal Gastrointestinal: Reports abdominal pain, diarrhea, nausea and vomiting; Denies melena Genitourinary Genitourinary ED: Denies dysuria or hematuria Musculoskeletal Musculoskeletal: Reports back pain; Denies neck pain Integumentary Denies abscess or rash Neurologic Neurologic: Reports headache(s); Denies weakness Allergic/Immunologic Allergic/Immunologic ED: Denies mouth swelling or urticaria EXAM Physical Exam Const Vital Signs: 10/19/22 08:07 Temperature 97.6 F L Temperature Source Temporal Pulse Rate 89 Respiratory Rate 14 Blood Pressure 132/78 H Blood Pressure Mean 96 Pulse Ox 98 Oxygen Delivery Method Room Air Positive well nourished and well developed General Appearance ED: well developed and NAD HEENT Reports moist mucous membranes Neck supple and no JVD Resp normal respiratory effort and clear to auscultation bilaterally Cardio regular rate, regular rhythm and no murmurs GI non-distended Palpation: soft and tender epigastric, LLQ, RLQ, LUQ, RUQ, periumbilical and suprapubic; Negative for guarding or rebound tenderness present Extremity normal to inspection General Extremety ED: Negative for edema or tenderness General Extremity: Negative for edema Neuro oriented x3, CN's II-XII intact bilaterally, moves all extremities and no sensory deficits noted Sensorium / Orientation: alert Motor Exam: strength 5/5 throughout Psych mental status grossly normal Skin no rashes or lesions noted MDM MDM MDM Narrative Medical decision making narrative: Differential diagnosis includes gastroparesis, viral gastroenteritis, cannabis hyperemesis syndrome, hyperemesis gravidarum, Jacquie-Luo tear, and dehydration. CBC will be obtained to assess for leukocytosis and anemia. Basic metabolic profile will be obtained to assess for electrolyte abnormality and renal function. Urinalysis will be obtained to assess for urinary tract infection. Lab Data Attestation: I reviewed the patient's lab results. Lab results narrative: CBC was reviewed. There is a slight anemia with a hemoglobin of 11.6 and hematocrit 34.6. Comprehensive metabolic profile was reviewed and was essentially within normal limits. Urinalysis was reviewed. There is no evidence of urinary tract infection or hematuria. Labs: Laboratory Results - last 24 hr 10/19/22 10/19/22 09:25 09:34 WBC 10.4 RBC 4.18 L Hgb 11.6 L Hct 34.6 L MCV 82.8 MCH 27.8 MCHC 33.5 RDW Std Deviation 41.6 RDW Coeff of Connor 14.2 Plt Count 261 MPV 10.7 Immature Gran % (Auto) 0.600 Neut % (Auto) 75.7 H Lymph % (Auto) 17.3 L [place] % (Auto) 4.7 Eos % (Auto) 1.3 Baso % (Auto) 0.4 Absolute Neuts (auto) 7.9 H Absolute Lymphs (auto) 1.80 Nucleated RBC % 0 Sodium 139 Potassium 3.9 Chloride 107 Carbon Dioxide 27.0 Anion Gap 5 BUN 4 L Creatinine 0.55 Estim Creat Clear Calc 145.59 Est GFR (MDRD) Af Amer 178 Est GFR (MDRD) Non-Af 147 BUN/Creatinine Ratio 7.3 L Glucose 89 Calcium 8.4 L Total Bilirubin 0.30 AST 6 L ALT 12 L Alkaline Phosphatase 85 Total Protein 6.8 Albumin 2.8 L Globulin 4.0 Albumin/Globulin Ratio 0.7 L Urine Color Yellow Urine Clarity Sl. Cloudy Urine pH 8.0 Ur Specific [place] 1.010 Urine Protein 15 H Urine Glucose (UA) Normal Urine Ketones 50 H Urine Occult Blood Negative Urine Nitrite Negative Urine Bilirubin Negative Urine Urobilinogen 1 H Ur Leukocyte Esterase 25 H Urine RBC 0 SEEN Urine WBC 0-5 SEEN Ur Squamous Epith Cells 5-10 SEEN Urine Bacteria 1+ Urine Mucus RARE Treatment and Re-Evaluation :: Patient was given IV fluids and Zofran. Patient is feeling better on reevaluation. Patient had no episodes of vomiting here in the emergency department. Patient was advised of her findings. Patient was instructed to start with small amounts of liquids more frequently. Patient was instructed to advance her diet as tolerated. Patient was instructed to follow-up with her TESTING MANAGER as scheduled. Patient understood and was agreeable with the plan. All questions were answered. Discharge Plan Triage Chief Complaint: Abd Pain ED Provider: Pieter Smith Dx/Rx/DC Orders Clinical Impression: Nausea & vomiting Instructions: ED Vomiting (Adult) Prescriptions: No Action ondansetron [ondansetron] 4 mg tablet,disintegrating 4 mg PO Q8H PRN PRN (Reason: Nausea) Qty: 10 0RF metoclopramide HCl [Reglan] 10 mg tablet 10 mg PO Q8H PRN PRN (Reason: nausea and vomiting) Qty: 14 0RF cephalexin [cephalexin] 500 mg capsule 500 mg PO Q12 Qty: 10 0RF metoclopramide HCl [metoclopramide HCl] 10 mg tablet 10 mg PO 4X/DAY PRN (Reason: Headache) Qty: 20 0RF pantoprazole 40 mg tablet,delayed release (DR/EC) 40 mg PO BID 30 Days Qty: 60 3RF Primary Care Provider: Care Physician,No Primary Referrals: Mike Rodriguez MD [Med Staff - Active Staff] - 3-5 Days Care Physician,No Primary [Primary Care Provider] - Disposition Disposition: Home, Self Care
[2022-10-19] MEDS: 0.9% Normal Saline (1000mL) 1,000 ML 1000 ML IV (09:28)
[2022-10-19] MEDS: Ondansetron 4 MG/2 ML Vial IV (09:28)
[2022-10-19 09:32] LABS: Absolute Neutrophil Count 7.9 X10^3/uL (2.0-7.7); Basophil# 0.04 X10^3/uL; Basophil% 0.4 % (0-1); Eosinophil# 0.14 X10^3/uL; Eosinophils% 1.3 % (0-5); Hematocrit 34.6 % (37-47); Hemoglobin 11.6 g/dL (12.0-15.0); Lymphocyte % 17.3 % (19-41); Mean Corp Hgb Conc 33.5 g/dL (32-36); Mean Corpuscular Hgb 27.8 pg (27.0-32.0); Mean Corpuscular Volume 82.8 fL (81-99); Mean Platelet Vol. 10.7 fl (6.2-12.0); Monocyte# 0.49 X10^3/uL; Monocyte% 4.7 % (0-10); NRBC Flagged by Analyzer 0 % (0-5); Neutrophil # 7.89 X10^3/uL (2.7-7.7); Neutrophil % 75.7 % (47-70); Platelet Count 261 K/mm3 (150-450); RBC Distribution Width CV 14.2 % (11.6-14.6); RBC Distribution Width SD 41.6 fl (35.1-43.9); Red Blood Count 4.18 M/mm3 (4.2-5.4); White Blood Count 10.4 K/mm3 (4.4-11.0)
[2022-10-19 09:38] LABS: Red Blood Cells-Urine 0 SEEN /hpf (0-5)
[2022-10-19 09:40] LABS: Color, Urine Yellow (Yellow); Glucose, Dipstick Normal (Normal); Ketone-Dipstick 50 mg/dl (Negative); Leukocyte Esterase-Dipstick 25 /ul (Negative); Nitrite-Dipstick Negative (Negative); Occult Blood-Urine Negative /ul (Negative); Protein-Dipstick 15 mg/dl (Negative); Urine Bilirubin Dipstick Negative (Negative); Urine Clarity Sl. Cloudy (Clear); Urine Urobilinogen 1 mg/dl (Normal)
[2022-10-19 09:47] LABS: Bacteria 1+ /hpf (None Seen); Mucous, Urine RARE /hpf (<or=2+); Squamous Epithelial Cells - UA 5-10 SEEN /hpf (5-10); White Blood Cells 0-5 SEEN /hpf (0-5)
[2022-10-19 09:48] LABS: ALB/GLOB Ratio 0.7 RATIO (0.9-2.4); AST(SGOT) 6 U/L (15-37); Alanine Aminotransfer ALT/SGPT 12 U/L (13-56); Albumin, Serum 2.8 g/dL (3.2-5.0); Alkaline Phosphatase 85 U/L (45-117); Anion Gap 5 (5-15); BUN 4 mg/dL (7-18); BUN/Creat Ratio 7.3 RATIO (10-20); Calcium,Total 8.4 mg/dL (8.5-10.1); Chloride 107 mmol/L (98-107); Creatinine, Serum 0.55 mg/dL (0.55-1.02); EST Glomerular Filtration Rate 147 mL/min (>60); Est Glom Filt Rate - Afr Amer 178 mL/min (>60); Estimated Creatinine Clearance 145.59 ml/min; Glucose 89 mg/dL (74-106); Potassium 3.9 mmol/L (3.5-5.1); Protein, Total 6.8 g/dL (6.4-8.2); Sodium Level 139 mmol/L (136-145)
== END 2022-10-19 10:55 | disposition home or self-care (01) ==
PROVIDERS: Emergency Provider Emergency Medicine; Visit Provider Emergency Medicine
DX: O99.612 Diseases of the digestive system complicating pregnancy, second trimester (principal); O21.2 Late vomiting of pregnancy; R10.9 Unspecified abdominal pain; O99.322 Drug use complicating pregnancy, second trimester; F12.90 Cannabis use, unspecified, uncomplicated; O99.332 Smoking (tobacco) complicating pregnancy, second trimester; F17.290 Nicotine dependence, other tobacco product, uncomplicated; R19.7 Diarrhea, unspecified; Z3A.25 25 weeks gestation of pregnancy; Z79.899 Other long term (current) drug therapy
CPT/HCPCS: 80053; 81001; 85025; 96361; 96374; 99283; J7030; A4216; J2405

== ENCOUNTER → 2022-10-21 | Outpatient (CLI) | payer OTHER, MEDICAID, SELFPAY ==
[2022-10-21 15:47] LABS: Glucose Challenge Gest 1H 50g 74 mg/dL (70-140)
== END | disposition home or self-care (01) ==
LOC: LAB 14:22
PROVIDERS: Referring Provider Obstetrics & Gynecology; Visit Provider Obstetrics & Gynecology
DX: Z34.82 Encounter for supervision of other normal pregnancy, second trimester (principal); Z3A.00 Weeks of gestation of pregnancy not specified
CPT/HCPCS: 36415; 82950

== ENCOUNTER 2022-11-06 09:44 | Emergency (ER) | payer OTHER, MEDICAID, SELFPAY ==
[2022-11-06 09:50] VITALS: BP 114/75; PULSE 86; RESP 18; TEMP 36.6; O2SAT 96; BMI 31.1
--- NOTE | 2022-11-06 10:18 | EX.ED.DYSGE1 ---
HPI History of Present Illness Chief Complaint: Other, Pain/Inj Detail of Chief Complaint: vtg Informant: patient Narrative Narrative: Patient is 27 almost 28 weeks G2, P1, presenting for 2 to 3 days of feeling colder than normal, nausea and vomiting, and some lightheadedness without syncope or near syncope. She denies any abdominal pains or vaginal bleeding/leakage/discharge. She denies any urinary symptoms. She last urinated this morning before coming here, and she states it was not excessively dark, it looked clear and normal. She has a history of gastroparesis, she states she vomits every single day, including during this . She called her plate maker, she goes to [place], and she was advised to come to the emergency department. She denies any fevers, she denies any symptoms of any other illness recently. She states she used to be on Reglan for her gastroparesis, which preexisted prior to this , but her doctor left and she ran out and now she is on Zofran which seems to work better. [facility] Medical History Anemia Anxiety Asthma Depression Low iron Marijuana use Nausea & vomiting Syncope Upper abdominal pain Wears glasses Home Medications metoclopramide HCl 10 mg tablet (Reglan) 10 mg PO Q8H PRN PRN nausea and vomiting #14 tabs 08/01/22 [Rx Last Taken Unknown] ondansetron 4 mg disintegrating tablet 4 mg PO Q8H PRN PRN Nausea #10 tabs 08/01/22 [Rx Last Taken Unknown] pantoprazole 40 mg tablet,delayed release 40 mg PO BID 1 month #60 tabs 08/02/22 [Rx Last Taken Unknown] ondansetron 4 mg disintegrating tablet 8 mg (2 x 4 mg) PO Q8H PRN PRN Nausea #30 tabs 11/06/22 [Rx Last Taken Unknown] Allergy/AdvReac Type Severity Reaction Status Date / Time No Known Allergies Allergy Verified 11/06/22 09:50 Family History Father Diabetes Mother Depression Grandmother Breast cancer Surgical History H/O dilation and curettage History of adenoidectomy History of cholecystectomy (~09/2021) Hx of tonsillectomy Social History household members: significant other Smoking Status: Current every day smoker tobacco type: e-cigarettes alcohol intake: never substance use type: marijuana ROS ROS ED Constitutional Constitutional ED: Denies chills or fever(s) Eyes Eyes: Denies blurry vision, change in vision or diplopia ENT ENT ED: Denies rhinorrhea or sore throat Cardiovascular Cardiovascular: Reports lightheadedness; Denies chest pain, leg edema or palpitations Respiratory/Chest Respiratory/Chest: Denies cough or dyspnea Gastrointestinal Gastrointestinal: Reports nausea and vomiting; Denies abdominal pain, constipation, diarrhea or melena Genitourinary Genitourinary ED: Denies dysuria or hematuria Musculoskeletal Musculoskeletal: Denies back pain or neck pain Integumentary Denies abscess or rash Neurologic Neurologic: Denies headache(s), paresthesias or weakness Psychiatric Psychiatric: Denies anxiety or suicidal thoughts Endocrine Endocrinology: Reports cold intolerance; Denies polydipsia, polyphagia or polyuria EXAM Physical Exam Const Vital Signs: 11/06/22 09:50 11/06/22 09:56 Temperature 97.9 F Temperature Source Oral Pulse Rate 86 Respiratory Rate 18 Respiratory Effort Normal Non-Labored Respiratory Pattern Normal Blood Pressure 114/75 Blood Pressure Mean 88 Pulse Ox 96 Oxygen Delivery Method Room Air Positive well nourished and well developed Constitutional Narrative: Well-appearing in no distress sitting up comfortably General Appearance ED: well developed and NAD HEENT Reports moist mucous membranes normocephalic and atraumatic Eyes PERRL and EOMs intact bilaterally Neck full ROM and supple Resp normal respiratory effort and clear to auscultation bilaterally Cardio regular rate, regular rhythm and no murmurs Rate: Negative for tachycardic GI non-tender GI Narrative: Distended above the umbilicus consistent with early third trimester Auscultation: normoactive bowel sounds Palpation: soft Back/Spine no CVA tenderness General Back: other FROM Extremity normal to inspection General Extremety ED: Negative for edema, pulses abnormal or tenderness General Extremity: Negative for edema or pulses abnormal Neuro oriented x3, CN's II-XII intact bilaterally and no sensory deficits noted Sensorium / Orientation: awake and alert Motor Exam: strength 5/5 throughout Skin no rashes or lesions noted and no wounds MDM MDM MDM Narrative Medical decision making narrative: heart tones obtained, 145 within normal limits. Patient was given a liter of fluid and Zofran while we ran some labs, they are very benign-appearing, with slight anemia consistent with , her vital signs are normal with a temperature of 97.9, and after Zofran and fluids she is feeling much better and tolerating oral fluids. She has no Zofran at home will prescribe her some, close a patient follow-up advised. Lab Data Attestation: I reviewed the patient's lab results. Labs: Laboratory Results - last 24 hr 11/06/22 10:26 WBC 9.1 RBC 4.34 Hgb 11.8 L Hct 35.6 L MCV 82.0 MCH 27.2 MCHC 33.1 RDW Std Deviation 40.3 RDW Coeff of Connor 13.6 Plt Count 260 MPV 10.8 Immature Gran % (Auto) 0.500 Neut % (Auto) 67.2 Lymph % (Auto) 22.5 Cochran % (Auto) 7.1 Eos % (Auto) 2.2 Baso % (Auto) 0.5 Absolute Neuts (auto) 6.1 Absolute Lymphs (auto) 2.05 Nucleated RBC % 0 Sodium 135 L Potassium 3.6 Chloride 108 H Carbon Dioxide 24.0 Anion Gap 3 L BUN 5 L Creatinine 0.49 L Estim Creat Clear Calc 163.42 Est GFR (MDRD) Af Amer 205 Est GFR (MDRD) Non-Af 169 BUN/Creatinine Ratio 10.3 Glucose 84 Calcium 8.1 L Discharge Plan Triage Chief Complaint: Other, Pain/Inj ED Provider: Davis Dorman Dx/Rx/DC Orders Clinical Impression: Vomiting, Third trimester , Gastroparesis Instructions: Gastroparesis Prescriptions: New ondansetron [ondansetron] 4 mg tablet,disintegrating 8 mg PO Q8H PRN PRN (Reason: Nausea) Qty: 30 0RF No Action ondansetron [ondansetron] 4 mg tablet,disintegrating 4 mg PO Q8H PRN PRN (Reason: Nausea) Qty: 10 0RF metoclopramide HCl [Reglan] 10 mg tablet 10 mg PO Q8H PRN PRN (Reason: nausea and vomiting) Qty: 14 0RF pantoprazole 40 mg tablet,delayed release (DR/EC) 40 mg PO BID 30 Days Qty: 60 3RF Primary Care Provider: Care Physician,No Primary Referrals: Jenny Rodríguez MD [Med Staff - Active Staff] - (as needed if continued acute issues or otherwise as scheduled) Disposition Disposition: Home, Self Care
[2022-11-06] MEDS: 0.9% Normal Saline (1000mL) 1,000 ML 999 ML IV (10:22)
[2022-11-06] MEDS: Ondansetron 4 MG/2 ML Vial IV (10:23)
[2022-11-06 10:30] LABS: Absolute Lymphocyte Count 2.05 X10^3/uL (0.83-4.51); Absolute Neutrophil Count 6.1 X10^3/uL (2.0-7.7); Basophil# 0.05 X10^3/uL; Basophil% 0.5 % (0-1); Eosinophils% 2.2 % (0-5); Hematocrit 35.6 % (37-47); Hemoglobin 11.8 g/dL (12.0-15.0); Lymphocyte # 2.05 X10^3/ul (0.83-4.51); Lymphocyte % 22.5 % (19-41); Mean Corp Hgb Conc 33.1 g/dL (32-36); Mean Corpuscular Hgb 27.2 pg (27.0-32.0); Mean Platelet Vol. 10.8 fl (6.2-12.0); Monocyte# 0.65 X10^3/uL; Monocyte% 7.1 % (0-10); NRBC Flagged by Analyzer 0 % (0-5); Neutrophil # 6.11 X10^3/uL (2.7-7.7); Neutrophil % 67.2 % (47-70); Platelet Count 260 K/mm3 (150-450); RBC Distribution Width CV 13.6 % (11.6-14.6); RBC Distribution Width SD 40.3 fl (35.1-43.9); Red Blood Count 4.34 M/mm3 (4.2-5.4); White Blood Count 9.1 K/mm3 (4.4-11.0)
[2022-11-06 10:45] LABS: Anion Gap 3 (5-15); BUN 5 mg/dL (7-18); BUN/Creat Ratio 10.3 RATIO (10-20); Calcium,Total 8.1 mg/dL (8.5-10.1); Chloride 108 mmol/L (98-107); Creatinine, Serum 0.49 mg/dL (0.55-1.02); EST Glomerular Filtration Rate 169 mL/min (>60); Est Glom Filt Rate - Afr Amer 205 mL/min (>60); Estimated Creatinine Clearance 163.42 ml/min; Glucose 84 mg/dL (74-106); Potassium 3.6 mmol/L (3.5-5.1); Sodium Level 135 mmol/L (136-145)
[2022-11-06 11:31] VITALS: BP 120/77; PULSE 62; RESP 15; O2SAT 98
== END 2022-11-06 11:32 | disposition home or self-care (01) ==
PROVIDERS: Emergency Provider Emergency Medicine; Visit Provider Emergency Medicine
DX: O99.613 Diseases of the digestive system complicating pregnancy, third trimester (principal); K31.84 Gastroparesis; O21.2 Late vomiting of pregnancy; Z79.899 Other long term (current) drug therapy; O99.333 Smoking (tobacco) complicating pregnancy, third trimester; F17.290 Nicotine dependence, other tobacco product, uncomplicated; Z3A.28 28 weeks gestation of pregnancy
CPT/HCPCS: 80048; 85025; 96361; 96374; 99283; J7030; A4216; J2405

== ENCOUNTER 2022-12-20 16:18 | Outpatient (CLI) | payer OTHER, MEDICAID, SELFPAY ==
[2022-12-20 16:44] VITALS: BP 121/75; PULSE 104; TEMP 36.8; O2SAT 94
[2022-12-20 16:48] VITALS: BMI 32.3
[2022-12-20 16:49] VITALS: PULSE 99; O2SAT 96
[2022-12-20 16:54] VITALS: PULSE 100; O2SAT 96
[2022-12-20 17:11] LABS: ROM Internal Control Test YES-OK TO RESULT pt. (Internal QC); ROM Patient Test Negative (Negative); Record Kit Lot#, ROM+ K1409
--- NOTE | 2022-12-20 17:36 | US_ITS ---
INDICATION: Fluid and Growth EXAMINATION: Ultrasound US OB Greater Than 14 Weeks TECHNIQUE: Transabdominal pelvic ultrasound was performed. COMPARISON: OB ultrasound June 12, 2022. FINDINGS: A single live intrauterine of 30 weeks and 6 days is identified in cephalic presentation. heart rate is 125 bpm. Estimated weight is 1722 g at the 2.7 percentile. Amniotic fluid index is lower normal at 9.6 cm. The placenta is anterior/fundal. No evidence of previa or abruption. The cervix is not well visualized, but appears closed and measures 4.4 cm in length. US/OB Limited With Biometrics IMPRESSION: Single live intrauterine of 30 weeks and 6 days. Amniotic fluid index measures 9.6 cm. Estimated weight is decreased at 1722 g. Electronically Signed: Ronni Blankenship MD at 19:41 EST ,
[2022-12-20 18:02] LABS: Group B Strep DNA By PCR Negative (Negative); Internal Control PASS; Probe Check PASS; Specimen Processing Control PASS
--- NOTE | 2022-12-20 19:04 | OB.TRI.HP_ITS ---
HPI - General General Date of Admission: 12/20/22 Date of Service: 12/20/22 Chief Complaint: leaking of fluid HPI Narrative CHANA DE LA O, is a 21 F who presents to para 1 who presents at 33+ gestational weeks complaining of possible leaking of fluid since Tuesday. She was evaluated in the office today. She had good movement no vaginal bleeding. She had an inconclusive evaluation for spontaneous rupture membranes in the office and w as sent to labor and delivery for evaluation. Her fern was negative her nitrazine was positive. There was no discrete pulling. Maternal Data Information Final CHAN: 01/05/23 Gestational age: 33 5/7 PFSH PFSH Medical History (Updated 12/20/22 @ 19:[address] Donna Gonzales MD) Anemia Anxiety Asthma Depression Low iron Marijuana use Nausea & vomiting Syncope Upper abdominal pain Wears glasses Home Medications ondansetron 4 mg disintegrating tablet 8 mg (2 x 4 mg) PO Q8H PRN PRN Nausea #30 tabs 11/06/22 [Rx Last Taken 12/19/22] prochlorperazine maleate 10 mg tablet 10 mg PO Q8H PRN nausea and vomiting #90 tabs 12/03/22 [Rx Last Taken Unknown] Allergy/AdvReac Type Severity Reaction Status Date / Time No Known Allergies Allergy Verified 12/20/22 16:53 Family History Father Diabetes Mother Depression Grandmother Breast cancer Surgical History (Updated 12/20/22 @ 19:[address] Donna Gonzales MD) H/O dilation and curettage History of adenoidectomy History of cholecystectomy (~09/2021) Hx of tonsillectomy Social History household members: significant other Smoking Status: Current every day smoker tobacco type: e-cigarettes alcohol intake: never substance use type: marijuana History 1 Elective abortions Hx Para 0 Spontaneous abortions Hx # Term Pregnancies Ectopic pregnancies Hx # Pregnancies Multiple births # of living children Physical Exam Narrative Awake, alert, no acute distress Abdomen soft, nondistended, gravid fundus appropriate for gestational age Sterile speculum exam done, physiological clear mucus discharge noted. Cervix is closed and nonfriable. No pooling.Cervical exam cervix is half centimeter dilated, 50 thick, medium consistency, posterior and presenting part is -4 station and ballotable. No return of amniotic fluid with examination. NST FHR Rate Baby A Baseline: normal Variability:: Moderate Accelerations:: 15 x 15 Decelerations:: None NST Reactive:: Yes FHR Category:: Category I Uterine Activity:: no regular ctxs Assessment & Plan (1) 33 weeks gestation of : PLAN: High risk multigravida at 33-5/7 weeks without clinical evidence of rupture membranes. Sterile spec exam is negative for pooling, no return of amniotic fluid on exam. Normal amniotic fluid volume. Single vertex fetus with estimated weight of approximately 1700 g noted. Ultrasound pictures and preliminary report reviewed. NST is reactive, category 1. DC home with kick counts, follow-up in the office in 1 to 2 weeks or as needed. Patient is comfortable with this plan. (2) High risk multigravida in third trimester:
== END 2022-12-20 19:21 | disposition home or self-care (01) ==
LOC: WPOUT 16:25 → WP 16:26
PROVIDERS: Referring Provider Obstetrics & Gynecology; Visit Provider Obstetrics & Gynecology
DX: Z03.79 Encounter for other suspected maternal and fetal conditions ruled out (principal); O09.523 Supervision of elderly multigravida, third trimester; F17.290 Nicotine dependence, other tobacco product, uncomplicated; Z3A.33 33 weeks gestation of pregnancy; O99.333 Smoking (tobacco) complicating pregnancy, third trimester
CPT/HCPCS: 59025; 59050; 76816; 84112; 87081; 87653; 99221; G0378

== ENCOUNTER 2022-12-23 12:25 | Outpatient (CLI) | payer OTHER, MEDICAID, SELFPAY ==
[2022-12-23] VITALS (9 sets, daily range): BP systolic 105–122; BP diastolic 58–74; PULSE 67–100; TEMP 36.5–36.8; O2SAT 97–98; BMI 32.3
[2022-12-23] MEDS: Lactated Ringers 1,000 ML 100 ML IV (13:25)
[2022-12-23] MEDS: Betamethasone/Betamethasone 30 MG/5 ML Vial 12 MG IM (13:30)
--- NOTE | 2022-12-23 13:43 | US_ITS ---
STUDY: SECOND AND THIRD TRIMESTER OBSTETRICAL ULTRASOUND REASON FOR EXAM: Female, 22 years old for DEBBI LMP: April 28, 2022. TECHNIQUE: Transabdominal TECHNICAL QUALITY: Adequate. PRIOR ULTRASOUND: Comparison is made with prior study dated December 20, 2022. FINDINGS: There is a single intrauterine fetus. The fetus is in a cephalic presentation. There is demonstrated cardiac activity with a heart rate of 136 bpm. There is a normal amniotic fluid volume. The largest amniotic fluid pocket measures 3.5 cm. The amniotic fluid index (DEBBI) is 9.6 cm. The placenta is anterior in location and is not low lying. There are Grade 1 placental changes. The cervix measures 4.1 cm in length. The bilateral adnexal regions are normal. US/OB Limited (No Biometrics) IMPRESSION: Amniotic fluid index measures 9.6. Electronically Signed: Anil Hassan MD at 14:56 EST ,
[2022-12-23 13:55] LABS: Absolute Lymphocyte Count 2.12 X10^3/uL (0.83-4.51); Absolute Neutrophil Count 9.2 X10^3/uL (2.0-7.7); Basophil# 0.03 X10^3/uL; Basophil% 0.2 % (0-1); Eosinophil# 0.22 X10^3/uL; Eosinophils% 1.8 % (0-5); Hematocrit 34.9 % (37-47); Hemoglobin 11.4 g/dL (12.0-15.0); Lymphocyte # 2.12 X10^3/ul (0.83-4.51); Lymphocyte % 17.2 % (19-41); Mean Corp Hgb Conc 32.7 g/dL (32-36); Mean Corpuscular Hgb 26.1 pg (27.0-32.0); Mean Platelet Vol. 11.1 fl (6.2-12.0); Monocyte# 0.59 X10^3/uL; Monocyte% 4.8 % (0-10); NRBC Flagged by Analyzer 0 % (0-5); Neutrophil # 9.22 X10^3/uL (2.7-7.7); Neutrophil % 75.1 % (47-70); Platelet Count 292 K/mm3 (150-450); RBC Distribution Width CV 13.9 % (11.6-14.6); RBC Distribution Width SD 40.4 fl (35.1-43.9); Red Blood Count 4.36 M/mm3 (4.2-5.4); White Blood Count 12.3 K/mm3 (4.4-11.0)
[2022-12-23 14:04] LABS: Prothrombin Time (Protime)PT. 13.6 SECONDS (11.7-14.9)
[2022-12-23 14:33] LABS: Fibrinogen 542 mg/dl (203-444)
--- NOTE | 2022-12-23 17:45 | PCM.HP.OB ---
HPI - General General Date of Admission: 12/23/22 Date of Service: 12/23/22 Chief Complaint: VB HPI Narrative CHANA DE LA O, is a 22 F at 34w1d with vaginal bleeding. She states out of nowhere she saturated through her clothing and pants with bleeding. She has no contractions. She denies leaking of fluid. She reports she was in the office several days ago for leaking of fluid, and rupture was ruled out. Since being seen in the office a few days ago she has not had continued leaking of fluid. Good movement. No recent falls or abdominal trauma. No headache or vision changes. PFSH PFS Medical History (Updated 12/23/22 @ 17:[address] Krysten Hernandez DO) Anemia Anxiety Asthma Depression Low iron Marijuana use Nausea & vomiting Syncope Upper abdominal pain Wears glasses Home Medications ondansetron 4 mg disintegrating tablet 8 mg (2 x 4 mg) PO Q8H PRN PRN Nausea #30 tabs 11/06/22 [Rx Last Taken 12/19/22] prochlorperazine maleate 10 mg tablet 10 mg PO Q8H PRN nausea and vomiting #90 tabs 12/03/22 [Rx Last Taken Unknown] Allergy/AdvReac Type Severity Reaction Status Date / Time No Known Allergies Allergy Verified 12/23/22 13:03 Family History Father Diabetes Mother Depression Grandmother Breast cancer Surgical History (Updated 12/20/22 @ 19:[address] Donna Gonzales MD) H/O dilation and curettage History of adenoidectomy History of cholecystectomy (~09/2021) Hx of tonsillectomy Social History household members: significant other Smoking Status: Current every day smoker tobacco type: e-cigarettes alcohol intake: never substance use type: marijuana History 1 Elective abortions Hx Para 0 Spontaneous abortions Hx # Term Pregnancies Ectopic pregnancies Hx # Pregnancies Multiple births # of living children NST FHR Rate Baby A Baseline: 150 Variability:: Moderate Accelerations:: 15 x 15 Decelerations:: None NST Reactive:: Yes FHR Category:: Category I Uterine Activity:: no ctx's Vital Signs Vital Signs Vital Signs: 12/23/22 12:44 12/23/22 12:44 12/23/22 12:45 Temperature Temperature Source Pulse Rate 82 Blood Pressure 113/74 BP Systolic 113 BP Diastolic 74 Pulse Ox 98 12/23/22 12:45 12/23/22 14:28 12/23/22 14:28 Temperature Temperature Source Pulse Rate 67 81 Blood Pressure 105/63 BP Systolic 105 BP Diastolic 63 Pulse Ox 12/23/22 16:58 12/23/22 16:58 12/23/22 16:58 Temperature Temperature Source Pulse Rate 80 Blood Pressure 120/63 BP Systolic 120 BP Diastolic 63 Pulse Ox 98 12/23/22 16:58 12/23/22 16:58 12/23/22 14:28 Temperature 97.7 F L Temperature Source Temporal Temporal Pulse Rate Blood Pressure BP Systolic BP Diastolic Pulse Ox 12/23/22 14:28 12/23/22 17:03 12/23/22 17:03 Temperature 98.2 F Temperature Source Pulse Rate 82 Blood Pressure BP Systolic BP Diastolic Pulse Ox 98 12/23/22 17:08 12/23/22 17:08 12/23/22 17:13 Temperature Temperature Source Pulse Rate 97 100 Blood Pressure BP Systolic BP Diastolic Pulse Ox 97 12/23/22 17:13 12/23/22 17:38 12/23/22 17:38 Temperature Temperature Source Pulse Rate 84 Blood Pressure 122/58 H BP Systolic 122 BP Diastolic 58 Pulse Ox 98 12/23/22 17:37 Temperature Temperature Source Pulse Rate Blood Pressure BP Systolic BP Diastolic Pulse Ox 97 Weight Weight: 194 lb Body Mass Index (BMI) 32.3 Physical Exam Const alert and no apparent distress General Appearance: comfortable HEENT normocephalic Resp normal respiratory effort GI soft to palpation, non-tender and non-distended Narrative: SSE performed and cervix closed and long. Dark red-brown blood present in vaginal vault. Minimal amount with no active bleeding from cervical os. 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 DEBBI on formal ultrasound normal (3) Vaginal bleeding: PLAN: - No pooling of fluid on SSE and no ferning, however visibility limited given presence of RBC's - Bleeding has slowed and FHT reassuring - Abruption labs normal - Given amount of bleeding on admission discussed concern for abruption - Rhogam for Rh negative status
== END 2022-12-23 17:50 | disposition home or self-care (01) ==
LOC: WPOUT 12:34 → WP 12:34
PROVIDERS: Referring Provider Obstetrics & Gynecology; Visit Provider Obstetrics & Gynecology
DX: O46.93 Antepartum hemorrhage, unspecified, third trimester (principal); F17.290 Nicotine dependence, other tobacco product, uncomplicated; Z3A.34 34 weeks gestation of pregnancy; O99.333 Smoking (tobacco) complicating pregnancy, third trimester
CPT/HCPCS: 96360; 96361; 36415; 59025; 59050; 76815; 85025; 85384; 85461; 85610; 85730; 86850; 86900; 86901; 96372; 99221; J7120; G0378; J0702; J2790

== ENCOUNTER 2023-01-18 07:00 | Inpatient (IN) | payer OTHER, MEDICAID, SELFPAY ==
[2023-01-18] VITALS (76 sets, daily range): BP systolic 99–138; BP diastolic 56–88; PULSE 58–146; TEMP 36.3–36.9; O2SAT 96–99; BMI 32.1
[2023-01-18] MEDS: Lactated Ringers 1,000 ML 50 ML IV (07:25)
[2023-01-18 07:45] LABS: Absolute Neutrophil Count 6.1 X10^3/uL (2.0-7.7); Basophil# 0.04 X10^3/uL; Basophil% 0.4 % (0-1); Eosinophil# 0.12 X10^3/uL; Eosinophils% 1.3 % (0-5); Hematocrit 34.4 % (37-47); Hemoglobin 11.3 g/dL (12.0-15.0); Lymphocyte % 26.1 % (19-41); Mean Corp Hgb Conc 32.8 g/dL (32-36); Mean Corpuscular Hgb 26.1 pg (27.0-32.0); Mean Corpuscular Volume 79.4 fL (81-99); Monocyte# 0.49 X10^3/uL; Monocyte% 5.3 % (0-10); NRBC Flagged by Analyzer 0 % (0-5); Neutrophil # 6.11 X10^3/uL (2.7-7.7); Neutrophil % 66.4 % (47-70); Platelet Count 277 K/mm3 (150-450); RBC Distribution Width SD 43.3 fl (35.1-43.9); Red Blood Count 4.33 M/mm3 (4.2-5.4); White Blood Count 9.2 K/mm3 (4.4-11.0)
[2023-01-18] MEDS: Oxytocin 15 Units/NS 250ml 15 UNITS/250 ML IV.SOLN 2 UNITS IV (07:55)
[2023-01-18] MEDS: 0.9% Normal Saline Single 100 ML IV.SOLN. INTRA-UTER (08:20)
--- NOTE | 2023-01-18 08:38 | PCM.HP.OB ---
HPI - General General Date of Admission: 01/18/23 HPI Narrative CHANA DE LA O, is a 22 F who presents at 37w6d for induction of labor due to IUGR. . Maternal Data Information CHAN Calculator Estimated Delivery Date Method Current WG Current Estimate 02/02/23 Manual 37w 6d Final HCAN: 02/02/23 PFSH PFS Medical History (Updated 01/18/23 @ 08:48 by Ansley Ibrahim CNM) Anemia Anxiety Asthma Depression Low iron Marijuana use Nausea & vomiting Syncope Upper abdominal pain Wears glasses Home Medications ondansetron 4 mg disintegrating tablet 8 mg (2 x 4 mg) PO Q8H PRN PRN Nausea #30 tabs 11/06/22 [Rx Last Taken 12/19/22] prochlorperazine maleate 10 mg tablet 10 mg PO Q8H PRN nausea and vomiting #90 tabs 12/03/22 [Rx Last Taken Unknown] albuterol sulfate 90 mcg/actuation aerosol inhaler inhalation asthma 01/18/23 [History Last Taken Unknown] Allergy/AdvReac Type Severity Reaction Status Date / Time No Known Allergies Allergy Verified 01/18/23 07:27 Family History Father Diabetes Mother Depression Grandmother Breast cancer Surgical History H/O dilation and curettage History of adenoidectomy History of cholecystectomy (~09/2021) Hx of tonsillectomy Social History household members: significant other Smoking Status: Former smoker alcohol intake: never substance use type: marijuana History 1 Elective abortions Hx Para 1 Spontaneous abortions Hx # Term Pregnancies Ectopic pregnancies Hx # Pregnancies Multiple births # of living children NST FHR Rate Baby A Baseline: 135 Variability:: Moderate Accelerations:: 15 x 15 Decelerations:: None FHR Category:: Category I Uterine Activity:: Irregular, mild ROS Constitutional Constitutional: Reports systems reviewed and no addt'l complaints, except as documented; Denies headache(s) Eyes Eyes: Denies acute decrease in peripheral vision, blurry vision or change in vision ENT HEENT: Reports systems reviewed and no addt'l complaints, except as documented Cardiovascular Cardiovascular: Denies chest pain or dizziness Respiratory/Chest Respiratory/Chest: Denies cough, dyspnea, dyspnea on exertion, shortness of breath at rest or shortness of breath with exertion Gastrointestinal Gastrointestinal: Denies abdominal pain, diarrhea, nausea or vomiting Genitourinary Genitourinary: Denies abdominal discomfort Musculoskeletal Musculoskeletal: Denies limited range of motion Integumentary Integumentary: Reports systems reviewed and no addt'l complaints, except as documented Neurologic Neurologic: Reports systems reviewed and no addt'l complaints, except as documented Psychiatric Psychiatric: Reports systems reviewed and no addt'l complaints, except as documented Endocrine Endocrinology: Reports systems reviewed and no addt'l complaints, except as documented Hematologic/Lymphatic Hematologic/Lymphatic: Reports systems reviewed and no addt'l complaints, except as documented Allergic/Immunologic Allergic/Immunologic: Reports systems reviewed and no addt'l complaints, except as documented Vital Signs Vital Signs Vital Signs: 01/18/23 07:18 01/18/23 07:18 01/18/23 07:19 Temperature Temperature Source Pulse Rate 146 H Blood Pressure 111/72 BP Systolic 111 BP Diastolic 72 Pulse Ox 98 01/18/23 07:19 01/18/23 07:19 01/18/23 07:19 Temperature 98.4 F Temperature Source Temporal Pulse Rate 82 Blood Pressure BP Systolic BP Diastolic Pulse Ox Weight Weight: 192 lb 12.8 oz Body Mass Index (BMI) 32.1 Physical Exam Const alert and oriented x3 General Appearance: cooperative Orientation / Consciousness: awake, oriented to person, oriented to place and oriented to time Exam Limitations: no limitations HEENT normocephalic Head and Scalp: normal to inspection, normocephalic and atraumatic Face and Sinus: normal facial exam Eyes General Eye: normal appearance of both eyes Neck full ROM Chest Chest: symmetrical chest wall rise Resp normal respiratory effort and normal air movement Auscultation: clear to auscultation bilaterally Cardio regular rate, regular rhythm, S1 normal heart sound, S2 normal heart sound, no murmurs, no rub, no gallops and no clicks GI normal to inspection, nondistended, normoactive bowel sounds and non-tender appearance of the vagina normal Narrative: Araiza catheter inserted through cervix, 30ml NS instilled without difficulty. Patient tolerated exam well. Bladder / Kidney Exam: no CVA tenderness Manual OB Exam: estimated gestational size appropriate, presentation cephalic, dilated 2cm, effaced 60 and station -1 Back/Spine normal ROM Extremity normal to inspection and full ROM Skin no rashes or lesions noted Neuro oriented x3, CN's II-XII intact bilaterally and moves all extremities Sensorium / Orientation: awake, alert and oriented to person Motor Exam: clonus absent Deep Tendon Reflexes: Rt Patellar (L4): 2+ and Lt Patellar (L4): 2+ Labs Labs Labs: Blood Type A NEGATIVE Antibody Screen NEGATIVE Hct 34.4 % (37-47) L Hgb 11.3 g/dL (12.0-15.0) L Obstetrics Ultrasound Syphilis Total Ab Pending Hepatitis C Antibody Pending HIV 1&2 Antibody Pending Glucose 1 Hr 50 gm 74 mg/dL (70-140) Group B Strep DNA Negative (Negative) Rhogam given: Yes Assessment & Plan (1) IUGR (intrauterine growth restriction): (2) Marijuana use: COMMENT: DAILY (3) Anxiety: (4) Asthma: COMMENT: PRN INHALER (5) Depression affecting : (6) Rh negative state in antepartum period: (7) Encounter for induction of labor: COMMENT: Medically indicated for FGR (8) IBS (irritable bowel syndrome): (9) ADHD: PLAN: Plan 1) Admit to labor and delivery for medically indicated 2) Routine labs 3) GBS negative 4) Continuous EFM 5) Araiza with Pitocin per policy for induction of labor 6) Epidural for pain management upon request 7) [facility] physician notified of patient status and updated on the above assessment and plan.
[2023-01-18] MEDS: fentaNYL 100 MCG/2 ML Ampul IV (08:42)
[2023-01-18] MEDS: Ondansetron 4 MG/2 ML Vial IV ×2 (08:45→16:03)
[2023-01-18 08:52] LABS: Syphilis Antibodies Non-reactive
[2023-01-18] MEDS: LACTATED RINGERS 500 ML 999 ML IV (09:18)
[2023-01-18 09:30] LABS: HIV - WCH Non-Reactive (Nonreactive); Hepatitis C Antibody Non-Reactive (Nonreactive)
[2023-01-18 09:40] LABS: Amphetamine Urine VISTA NEGATIVE (<1000 ng/mL); Barbiturate Urine VISTA NEGATIVE (< 200 ng/mL); Benzodiazepine Urine VISTA NEGATIVE (< 200 ng/mL); Cocaine Urine VISTA NEGATIVE (< 300 ng/mL); Ecstacy Urine VISTA NEGATIVE (< 500 ng/mL); Methadone Urine VISTA NEGATIVE (< 300 ng/mL); PCP Urine VISTA NEGATIVE (< 25 ng/mL); THC Urine VISTA POSITIVE (< 50 ng/mL); Vista UDS pH Range 5
[2023-01-18] MEDS: fentaNYL-bupivacaine (epidural) 100 ML BAG EPIDURAL ×2 (10:56→14:36)
[2023-01-18] MEDS: proCHLORPERazine 10 MG/2 ML Vial IV (11:10)
--- NOTE | 2023-01-18 17:11 | EX.PCM.OBRPT ---
Assessment & Plan (1) Vaginal delivery: Maternal Data Information CHAN Calculator Estimated Delivery Date Method Current WG Current Estimate 02/02/23 Manual 37w 6d Vaginal Delivery Maternal Presentation Maternal Presentation: Active Labor Type of Induction: Pitocin and Araiza Bulb Operative Information Date of Procedure: 01/18/23 Pre-Operative Diagnosis: Medically indicated induction of labor for FGR Post-Operative Diagnosis: Surgery / Procedure Performed: Spontaneous Vaginal Delivery Type of Anesthesia: Epidural Estimated Blood Loss: 450 ml Time of Delivery: 16:42 Findings Description of Procedure: Progressed to complete with urge to push. Epidural for pain management. of viable female over intact perineum. APGARS 8,9 respectively. Infant head delivered with body immediately forthcoming. Placed on maternal abdomen, strong cry. Mouth and nares suctioned for secretions. Pitocin started for active 3rd stage management. Cord doubly clamped and cut by FOB after pulsations ceased, delayed cord clamping. Placenta delivered partially through cervix, manual extraction of remainder of placenta, intact via salomon, 3 vessel cord intact. Perineum inspected and revealed intact. Fundus firm and hemostasis achieved. EBL 450ml. Mom and baby stable, planning to bottle feed. Family bonding well. notified of delivery. Presentation: Vertex Amniotic Membrane Rupture Type: Artificial Amniotic Fluid Description: Clear Placental Delivery Description: Manual Removal Placenta Disposition: [facility] Cord Vessel Description: 3 Vessels Cord Entanglement: Around neck x 1, loose Nuchal Cord Compression: Without compression A Gender: Female (1 minute): 8 (5 minute): 9 Delayed Cord Clamping: Yes Post Vaginal Delivery Medications Given After Delivery: IV Pitocin Episiotomy Description: None Laceration: None Complication Complications: None
[2023-01-18] MEDS: Oxytocin 15 Units/NS 250ml 15 UNITS/250 ML IV.SOLN 83 UNITS IV (17:14)
[2023-01-19] VITALS (8 sets, daily range): BP systolic 100–151; BP diastolic 51–94; PULSE 52–75; RESP 16; TEMP 36.4–36.7
[2023-01-19] MEDS: Ibuprofen 600 MG Tablet PO ×2 (05:00→12:26)
[2023-01-19] MEDS: 0.9% Saline Lock 10 ML Syringe IV (05:12)
[2023-01-19] MEDS: Ondansetron 4 MG/2 ML Vial IV (05:12)
[2023-01-19 05:53] LABS: Absolute Lymphocyte Count 2.91 X10^3/uL (0.83-4.51); Absolute Neutrophil Count 7.1 X10^3/uL (2.0-7.7); Basophil# 0.03 X10^3/uL; Basophil% 0.3 % (0-1); Eosinophil# 0.11 X10^3/uL; Hematocrit 32.3 % (37-47); Hemoglobin 10.6 g/dL (12.0-15.0); Lymphocyte # 2.91 X10^3/ul (0.83-4.51); Lymphocyte % 26.1 % (19-41); Mean Corp Hgb Conc 32.8 g/dL (32-36); Mean Corpuscular Hgb 26.2 pg (27.0-32.0); Mean Corpuscular Volume 79.8 fL (81-99); Mean Platelet Vol. 10.6 fl (6.2-12.0); Monocyte# 0.84 X10^3/uL; Monocyte% 7.5 % (0-10); NRBC Flagged by Analyzer 0 % (0-5); Neutrophil # 7.14 X10^3/uL (2.7-7.7); Neutrophil % 64.2 % (47-70); Platelet Count 261 K/mm3 (150-450); RBC Distribution Width SD 43.2 fl (35.1-43.9); Red Blood Count 4.05 M/mm3 (4.2-5.4); White Blood Count 11.1 K/mm3 (4.4-11.0)
--- NOTE | 2023-01-19 08:20 | PCM.DC.SUM ---
Providers Date of Admission: 01/18/23 Primary Care Physician: No Primary Care Phys Reason For Visit: VAGINAL DELIVERY Diagnosis Discharge Diagnosis (1) Vaginal delivery: Status: Acute Code(s): O80 - Encounter for full-term uncomplicated delivery Medications at Discharge Home Medications albuterol sulfate 90 mcg/actuation aerosol inhaler inhalation asthma 01/18/23 Hospital Course Operations None Procedures None Summary of Care Provided Minutes Spent on Discharge: 15 Hospital Course: Patient had . Hospital course was uneventful. Physical Exam Const alert and no apparent distress General Appearance: cooperative and comfortable Exam Limitations: no limitations HEENT normocephalic Eyes General Eye: normal appearance of both eyes Neck full ROM General: normal visual inspection Chest Chest: symmetrical chest wall rise Resp normal respiratory effort and normal air movement Effort and Inspection: symmetric chest movement Auscultation: clear to auscultation bilaterally Cardio regular rate and regular rhythm GI normal to inspection, nondistended, normoactive bowel sounds Back/Spine normal ROM Extremity full ROM and no calf tenderness General Extremity: normal exam except as noted Skin no rashes or lesions noted Neuro CN's II-XII intact bilaterally Psych mental status grossly normal Weight / BMI Weight Weight: 192 lb 12.8 oz Body Mass Index (BMI) 32.1 ABG / Lab / Microbiology Data 01/19/23 05:45 Laboratory: Laboratory Results - last 24 hr 01/18/23 07:25: Syphilis Total Ab Non-reactive, Hepatitis C Antibody Non-Reactive, HIV 1&2 Antibody Non-Reactive, Blood Type A NEGATIVE, Antibody Screen POSITIVE, Antibody Identification ANTI-D 01/18/23 08:53: Urine Opiates Screen NEGATIVE, Urine Methadone Screen NEGATIVE, Ur Barbiturates Screen NEGATIVE, Ur Phencyclidine Scrn NEGATIVE, Ur Amphetamines Screen NEGATIVE, MDMA (Ecstasy) Screen NEGATIVE, U Benzodiazepines Scrn NEGATIVE, Urine Cocaine Screen NEGATIVE, U Cannabinoids Screen POSITIVE H, Ur Drug Screen Comment 01/19/23 05:45: WBC 11.1 H, RBC 4.05 L, Hgb 10.6 L, Hct 32.3 L, MCV 79.8 L, MCH 26.2 L, MCHC 32.8, RDW Std Deviation 43.2, RDW Coeff of Connor 15.0 H, Plt Count 261, MPV 10.6, Immature Gran % (Auto) 0.900, Neut % (Auto) 64.2, Lymph % (Auto) 26.1, [place] % (Auto) 7.5, Eos % (Auto) 1.0, Baso % (Auto) 0.3, Absolute Neuts (auto) 7.1, Absolute Lymphs (auto) 2.91, Nucleated RBC % 0 D/C Instructions Discharge Diet: No restrictions May resume sexual activity in: 6-8 weeks Weight Bearing Status: Weight bearing as tolerated Call your doctor if you observe: Fever of 101 or Higher, Inability to urinate, Using more than 1 pad per hour, Shortness of breath, Chest pain, Calf discomfort and Uncontrolled pain When: 2 weeks virtual visit/ 6 weeks in office Meaningful Use Info Meaningful Use Diagnoses (Choose all that apply): None applicable Discharge Plan Admission Admit Date/Time: 01/18/23 07:00 Primary Reason for Your Visit: Labor and Delivery Attending Provider: Ansley Ibrahim Primary Care Provider: Care Physician,No Primary Discharge Orders/Prescriptions Prescriptions: Continued albuterol sulfate 90 mcg/actuation HFA aerosol inhaler INHALATION Patient Comments: Inhale 2 Puffs as instructed every 6 hours as needed. Discontinued prochlorperazine maleate 10 mg tablet 10 mg PO Q8H PRN (Reason: nausea and vomiting) Qty: 90 1RF ondansetron [ondansetron] 4 mg tablet,disintegrating 8 mg PO Q8H PRN PRN (Reason: Nausea) Qty: 30 0RF Referrals / Follow Up: Care Physician,No Primary [Primary Care Provider] - Disposition Disposition (needs filled in before D/C Order can be placed): Home, Self Care
--- NOTE | 2023-01-19 11:57 | CASEMGMT ---
Social Work Assessment Labor and Delivery Unit [address] [address] Phone number: [phone] Date of Referral: 01/18/23 Time of Referral:? 44 Referred By: Donna Gonzales Date of Intervention: ?01/19/23? Time of Intervention:? 1100 Reason for Referral:? THC use, currently and anxiety and depression Sw completed chat review and acknowledges social work consult due to maternal mental health history and THC use during . Sw presented to bedside and introduced self to mother of baby (MOB- Lori) and father of baby (FOB- Abrahan). Sw explained reason for social work consult, completed psychosocial assessment and asked MOB to complete Otis Depression Scale. While MOB completed Otis, sw asked FOB to step out of room momentarily which he did respectfully and without issue. Sw also addressed maternal substance use with MOB. History obtained from: medical records, MOB and FOB Household composition: MITZI states that at this time she, FOB, their 1.5 year old daughter, Bubba (: 08/11/21) currently reside with her grandparents. MOB states that there are no concerns with their housing, reporting it is safe and secure. Patient's parent/guardian status:? ?MOB states that she and FOB have been together for almost 3 years. FOB states that they met by chance and have been together ever since. While meeting with MOB privately she denies any concerns with domestic violence or intimate partner violence. Medical History: ?MITZI is 22 year old, single, female who is 2, para 1- now 2 following labor and delivery of baby. MITZI received routine care during with [facility]. MITZI presented to hospital for induction of labor due to intrauterine growth restriction. Baby was born via vaginal delivery on 01/18/23 at 37 weeks gestation. Baby girl, named Maria De Jesus Melvin, was born weighing 4lb 15oz and her apgars were 8 and 9 at one and five minutes of life respectfully. MITZI states that she is bottle feeding baby and this is going ok. Educational Status:? Neither parent graduated from [employer]. FOB states that he completed the 9th grade. MOB states that she completed the 11th grade and left school 4 weeks prior to completing her senior year. Financial Status: Both parents are employed outside of the home. MITZI works for [employer] and states that she is able to take off as much time as she needs for maternity leave due to some other health issues that she is having with her stomach. SIDDHARTH is employed as a metal air compounder sterile products and is able to take off the rest of this week for paternity leave. Supplies:??Parents state that they have obtained all necessary baby supplies, including: clothes, diapers, wipes, car seat and safe sleep space. Childcare/Caregiver(s): Parents state that if they need assistance with childcare paternal grandparents are able to help out. ? Transportation:?Both parents drive and have reliable transportation. No transportation barriers at this time. Programs/Agencies Involved: ?MITZI states that she is connected to insurance through [employer] [facility] [employer] and is aware that she has thirty days to call and get baby added to her plan. MITZI states that she is also connected to [facility] and has an appointment scheduled for 01/25. ?? Children Services/Legal Issues:?MITZI reports that they were previously involved with Children Services following the delivery of her daughter. MITZI states that a referral was made due to her THC use during at that time. MITZI states that at that time they were open with [facility] for about a week and then the case was closed. Sw informed MITZI that she is mandated at this time to make a referral to Children Services due to maternal substance use during (THC), MOB expressed understanding. ?? Behavioral Health Issues: ??Mental Health History:SIDDHARTH states that he has been diagnosed with anxiety and depression. SIDDHARTH stated that he is not connected to any counseling services./ supports or mental health supports. SIDDHARTH states that his symptoms consist of heart palpitation when he is anxious. MITZI stated that she has also been diagnosed with anxiety and depression and is not prescribed any psychopharmacological medications to assist with symptoms. MITZI states that she used to have counseling supports but has not been connected for several years. MITZI completed Otis Depression Scale and her score was a 7. Donaldo provided education and support and encouraged MITZI to get connected to community mental health supports to help her forest logistics manager her mental health during her journey. ??? Substance Use History: MITZI admits to daily THC use during . MITZI denies any other substance use. MITZI states that she does not smoke in the home, always outside and not when her older daughter is around. FOB admits to also smoking marijuana daily for pain. ?? Family History:??Parents deny any family history of addiction or mental health diagnoses. ??? Drug Screens: MOB urine screen positive at delivery for THC. ?? Family/Social Stressors:? Parents deny any stressors or issues at this time. Both parents report they have chronic pain. Support Systems: Maternal grandparents, paternal grandparents and maternal great grandparents are all supportive. Depression/Shaken Baby/Safe Sleeping:? Sw educated parents on signs and symptoms of baby blues and depression. Sw provided parents with literature for them to review that also included information on appropriate coping skills to utilize if MOB would struggle with her mental health . Parents expressed understanding. Sw educated parents on shaken baby prevention and ABCs of safe sleep. Parents expressed understanding. ASSESSMENT:? MOB and baby admitted following labor and delivery of .MOB with substance use throughout duration of - admitted to daily THC use to help with nausea, pain and stomach problems. 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 Parents have adequate family supports in place at this time and have obtained all necessary baby supplies. Parents talkative and receptive to sw involvement and support. Parents expressed awareness and understanding of sw need to make referral to Children Services due to substance use during . Safe Plan of Care for infant related to substance use:? MOB states that she does plan on continuing to use marijuana due to chronic pain. MOB was encouraged to obtain a medical marijuana card if she has intentions of continuing to use. PLAN:? Sw made referral to Children Services hotline due to concerns of maternal substance use during . ?No other services requested or indicated. Facundo Rangel, DIRECTOR OF FOOD AND BEVERAGE SERVICES, DRAW BENCH OPERATOR HELPER
== END 2023-01-19 17:55 | disposition home or self-care (01) | DRG 806 ==
PROVIDERS: Admitting Provider Obstetrics & Gynecology; Referring Provider Advanced Practice Midwife; Visit Provider Advanced Practice Midwife
DX: O36.5930 Maternal care for other known or suspected poor fetal growth, third trimester, not applicable or unspecified (principal); Z37.0 Single live birth; O99.324 Drug use complicating childbirth; J45.909 Unspecified asthma, uncomplicated; F12.90 Cannabis use, unspecified, uncomplicated; O99.52 Diseases of the respiratory system complicating childbirth; O69.81X0 Labor and delivery complicated by cord around neck, without compression, not applicable or unspecified; O73.1 Retained portions of placenta and membranes, without hemorrhage; Z3A.37 37 weeks gestation of pregnancy; Z87.891 Personal history of nicotine dependence
CPT/HCPCS: 59025; 59050; 80307; 85025; 86703; 86780; 86803; 86850; 86870; 86900; 86901; 99221; J7120; A4216; G0378; J2405

== ENCOUNTER 2023-02-26 15:49 | Emergency (ER) | payer OTHER, MEDICAID, SELFPAY ==
[2023-02-26 15:50] VITALS: BP 136/90; PULSE 81; RESP 16; TEMP 35.7; O2SAT 97; BMI 32.1
--- NOTE | 2023-02-26 16:10 | EDS_ITS ---
HPI <ZAKI Reyes - Last Filed: 02/26/23 17:57> History of Present Illness Chief Complaint: Nausea/Vomiting Narrative Narrative: Patient presenting today due to nausea, vomiting, and abdominal pain. She is here with her boyfriend who reports that they were drinking last night and she drank about 1/5 of liquor consisting of vodka, moonshine, and rum. She reports, I think I have alcohol poisoning. Her partner reports that she has been vomiting since around 10 AM, she reports that she has had several loose stools as well. She reports a history of gastroparesis. She reports that her abdominal pain is mainly located to her epigastric area and at times across her lower abdomen. She also admits to recent marijuana use. She denies fevers, chills, hematemesis, melena, and hematochezia. PFSH <ZAKI Reyes - Last Filed: 02/26/23 17:57> PFSH Medical History ADHD Anemia Anxiety Asthma Depression Depression affecting Encounter for induction of labor Gastroparesis History of IBS IBS (irritable bowel syndrome) IUGR (intrauterine growth restriction) Low iron Marijuana use Nausea & vomiting Rh negative state in antepartum period Syncope Upper abdominal pain Vaginal delivery Vapes nicotine containing substance Home Medications albuterol sulfate 90 mcg/actuation aerosol inhaler 1 inh inhalation PRN asthma 01/18/23 [History Last Taken Unknown] ferrous sulfate 325 mg (65 mg iron) tablet (iron) 325 mg PO QODAY PRN anemia 02/22/23 [History Last Taken Unknown] ondansetron 4 mg disintegrating tablet 4 mg PO Q8H PRN PRN Nausea #10 tabs 02/26/23 [Rx Last Taken Unknown] Allergy/AdvReac Type Severity Reaction Status Date / Time No Known Allergies Allergy Verified 02/26/23 15:49 Family History Father Diabetes Mother Depression Grandmother Breast cancer Surgical History H/O dilation and curettage History of adenoidectomy History of cholecystectomy (~09/2021) History of esophagogastroduodenoscopy (EGD) Hx of tonsillectomy Social History household members: significant other Smoking Status: Current every day smoker tobacco type: e-cigarettes alcohol intake: never substance use type: marijuana ROS <ZAKI Reyes - Last Filed: 02/26/23 17:57> ROS ED Constitutional Constitutional ED: Denies chills or fever(s) Cardiovascular Cardiovascular: Denies chest pain Respiratory/Chest Respiratory/Chest: Denies cough or dyspnea Gastrointestinal Gastrointestinal: Reports abdominal pain, nausea and vomiting; Denies constipation Genitourinary Genitourinary ED: Denies dysuria, hematuria or urinary urgency Musculoskeletal Musculoskeletal: Denies myalgias Integumentary Denies rash Neurologic Neurologic: Denies weakness EXAM <ZAKI Reyes - Last Filed: 02/26/23 17:57> Physical Exam Const Vital Signs: 02/26/23 15:50 02/26/23 18:02 Temperature 96.2 F L Temperature Source Temporal Pulse Rate 81 88 Respiratory Rate 16 16 Blood Pressure 136/90 H 130/74 H Blood Pressure Mean 105 92 Pulse Ox 97 100 Oxygen Delivery Method Room Air Room Air Positive well nourished, well developed and no apparent distress General Appearance ED: well developed HEENT Reports normocephalic and head/scalp atraumatic Mouth ED: Yes moist mucous membranes normal Eyes PERRL and EOMs intact bilaterally Neck full ROM and supple Chest Wall inspection of chest normal Resp normal respiratory effort and clear to auscultation bilaterally Cardio regular rate and regular rhythm GI soft to palpation, non-distended and no masses GI Narrative: Minimal epigastric tenderness to palpation without any rigidity, guarding, or peritoneal signs. Back/Spine normal ROM and normal to inspection Extremity normal to inspection and full ROM Neuro oriented x3, CN's II-XII intact bilaterally, moves all extremities, no focal motor deficits and no sensory deficits noted Sensorium / Orientation: awake and alert Psych mental status grossly normal and thought process normal Skin no rashes or lesions noted and no wounds <Dr. Davis Dorman MD - Last Filed: 02/26/23 21:19> Physical Exam Const Vital Signs: 02/26/23 15:50 02/26/23 18:02 Temperature 96.2 F L Temperature Source Temporal Pulse Rate 81 88 Respiratory Rate 16 16 Blood Pressure 136/90 H 130/74 H Blood Pressure Mean 105 92 Pulse Ox 97 100 Oxygen Delivery Method Room Air Room Air [facility] <ZAKI Reyes - Last Filed: 02/26/23 17:57> [facility] Narrative Medical decision making narrative: Patient presenting today due to nausea, vomiting, and epigastric abdominal pain. She reports heavy alcohol use last night, she stopped drinking around 3 AM this morning and her symptoms today started around 10 AM. She reports a history of gastroparesis and reports that her abdominal pain is consistent with her gastroparesis. She has very minimal tenderness to her epigastric area, otherwise abdominal exam is relatively benign. She will be given IV fluids, Zofran, she is requesting a GI cocktail, this will also be given. Labs will be obtained and are unremarkable. On reexamination patient is tolerating p.o. fluids, she reports improvement of her symptoms and would like to go home. She will be discharged home in stable condition with a prescription for Zofran and is comfortable with plan. Lab Data Attestation: I reviewed the patient's lab results. Lab results narrative: CBC and CMP unremarkable, lipase WNL Labs: Laboratory Results - last 24 hr 02/26/23 16:20 WBC 7.6 RBC 4.93 Hgb 12.7 Hct 39.1 MCV 79.3 L MCH 25.8 L MCHC 32.5 RDW Std Deviation 43.3 RDW Coeff of Connor 15.1 H Plt Count 315 MPV 10.4 Immature Gran % (Auto) 0.500 Neut % (Auto) 82.1 H Lymph % (Auto) 12.8 L Leon % (Auto) 2.9 Eos % (Auto) 0.7 Baso % (Auto) 1.0 Absolute Neuts (auto) 6.3 Absolute Lymphs (auto) 0.98 Nucleated RBC % 0 Sodium 142 Potassium 3.5 Chloride 112 H Carbon Dioxide 24.0 Anion Gap 6 BUN 7 Creatinine 0.71 Estim Creat Clear Calc 135.99 Est GFR (MDRD) Af Amer 132 Est GFR (MDRD) Non-Af 109 BUN/Creatinine Ratio 9.9 L Glucose 137 H Calcium 8.9 Total Bilirubin 0.40 AST 16 ALT 23 Alkaline Phosphatase 68 Total Protein 7.5 Albumin 3.8 Globulin 3.7 Albumin/Globulin Ratio 1.0 Lipase 24 <Dr. Davis Dorman MD - Last Filed: 01/20/24 21:19> MDM Lab Data Labs: Laboratory Results - last 24 hr 02/26/23 16:20 WBC 7.6 RBC 4.93 Hgb 12.7 Hct 39.1 MCV 79.3 L MCH 25.8 L MCHC 32.5 RDW Std Deviation 43.3 RDW Coeff of Connor 15.1 H Plt Count 315 MPV 10.4 Immature Gran % (Auto) 0.500 Neut % (Auto) 82.1 H Lymph % (Auto) 12.8 L Leon % (Auto) 2.9 Eos % (Auto) 0.7 Baso % (Auto) 1.0 Absolute Neuts (auto) 6.3 Absolute Lymphs (auto) 0.98 Nucleated RBC % 0 Sodium 142 Potassium 3.5 Chloride 112 H Carbon Dioxide 24.0 Anion Gap 6 BUN 7 Creatinine 0.71 Estim Creat Clear Calc 135.99 Est GFR (MDRD) Af Amer 132 Est GFR (MDRD) Non-Af 109 BUN/Creatinine Ratio 9.9 L Glucose 137 H Calcium 8.9 Total Bilirubin 0.40 AST 16 ALT 23 Alkaline Phosphatase 68 Total Protein 7.5 Albumin 3.8 Globulin 3.7 Albumin/Globulin Ratio 1.0 Lipase 24 Treatment and Re-Evaluation Comments:: I have personally performed a face to face assessment of the patient and have reviewed the ANABELLE Note. I performed a substantive portion of the visit including all aspects of the following. My casarez findings include: History is patient with abdominal discomfort and intractable vomiting after drinking a fifth of hard liquor overnight and into this morning, and has a history of gastroparesis. Exam is mild diffuse upper abdominal tenderness no guarding or rebound. Grossly intoxicated but cooperative. Medical Decison Making Labs noted, she is doing much better after IV fluids and medications and is tolerating oral fluids without difficulty. Safe for discharge home and supportive care continued and advised to avoid alcohol. Other additions or changes: [None] Discharge Plan Triage Chief Complaint: Nausea/Vomiting ED Midlevel Provider: Shwetha James ED Provider: Davis Dorman Dx/Rx/DC Orders Clinical Impression: Gastroparesis, Alcohol use, Nausea & vomiting Instructions: ED Vomiting (Adult) Prescriptions: New ondansetron 4 mg tablet,disintegrating 4 mg PO Q8H PRN PRN (Reason: Nausea) Qty: 10 0RF No Action albuterol sulfate 90 mcg/actuation HFA aerosol inhaler 1 inh INHALATION PRN Patient Comments: Inhale 2 Puffs as instructed every 6 hours as needed. ferrous sulfate [iron] 325 mg (65 mg iron) tablet 325 mg PO QODAY PRN (Reason: anemia) Primary Care Provider: Care Physician,No Primary Referrals: Care Physician,No Primary [Primary Care Provider] - Activity Restrictions/Additional Instructions: Stay well-hydrated, return for any worsening of your symptoms. Follow-up with your PCP. Disposition Disposition: Home, Self Care Discharge Date/Time: 02/26/23 18:03
[2023-02-26] MEDS: Mag Hydrox/Al Hydrox/Simeth 30 ML UDC PO (16:19)
[2023-02-26] MEDS: Ondansetron 4 MG/2 ML Vial IV (16:19)
[2023-02-26] MEDS: 0.9% Normal Saline (1000mL) 1,000 ML 1000 ML IV (16:22)
[2023-02-26 16:30] LABS: Absolute Lymphocyte Count 0.98 X10^3/uL (0.83-4.51); Absolute Neutrophil Count 6.3 X10^3/uL (2.0-7.7); Basophil# 0.08 X10^3/uL; Eosinophil# 0.05 X10^3/uL; Eosinophils% 0.7 % (0-5); Hematocrit 39.1 % (37-47); Hemoglobin 12.7 g/dL (12.0-15.0); Lymphocyte # 0.98 X10^3/ul (0.83-4.51); Lymphocyte % 12.8 % (19-41); Mean Corp Hgb Conc 32.5 g/dL (32-36); Mean Corpuscular Hgb 25.8 pg (27.0-32.0); Mean Corpuscular Volume 79.3 fL (81-99); Mean Platelet Vol. 10.4 fl (6.2-12.0); Monocyte# 0.22 X10^3/uL; Monocyte% 2.9 % (0-10); NRBC Flagged by Analyzer 0 % (0-5); Neutrophil # 6.26 X10^3/uL (2.7-7.7); Neutrophil % 82.1 % (47-70); Platelet Count 315 K/mm3 (150-450); RBC Distribution Width CV 15.1 % (11.6-14.6); RBC Distribution Width SD 43.3 fl (35.1-43.9); Red Blood Count 4.93 M/mm3 (4.2-5.4); White Blood Count 7.6 K/mm3 (4.4-11.0)
--- OUTSIDE RECORDS SUMMARY | 2023-02-26 16:36 | XMS RPT_ITS | CCD ---
Author Name Unknown Address [address] [place] [address] Organization [facility] Care Team Providers Care Print Room Worker Name Role Phone JOHN GALVEZ Unavailable Unavailable JOSE ALFREDO ROMEO Unavailable Unavailable DYLAN KAMAL Unavailable Unavailable JOHN GALVEZ Unavailable Unavailable JOHN GALVEZ Unavailable Unavailable JOSE ALFREDO ORMEO Unavailable Unavailable DYLAN, KAMAL Unavailable Unavailable [facility], [facility] Attending Unava ilable POMERENE, [facility] Primary Care Unava ilable POMERENE, [facility] Admitting Unava ilable Unavailable Primary Care Provider Unavailjuan carlos e PHYSICIAN, NONE Primary Care Physician Unavailab MARICRUZ Gilman MD Attending Unavail able PHYSICIAN, NONE Primary Care Unavailable Unavailable Primary Care Provider UnavailJYOTI Ridley Attending Unavailable NO, PHYSICIAN Primary Care Unavailable NONE, NONE Primary Care Unavailable LOFTON DO~[id number], LOFTON PATITO K Attending Unavailable LOFTON DO~[id number], LOFTON PATITO K Admitting Unavailable JYOTI RODRIGES MD Consulting Unavailable JYOTI RODRIGES MD Consulting Unavailable NONE, NONE Consulting Unavailable DECLINED, Consulting Unavailable ATA SUPERVISOR SIGN SHOPLUIS MANUEL Mendez Consulting Unavailab LUIS MANUEL Mcclelland APRN Consulting Unavailab SONY Streeter Attending Unavailable TERRY MONDRAGON Admitting Unavailable SUSY CARRANZA Attending Unavail able STEPHEN PRETTY Attending Unavailable MARY CONN Attending Unavailable MARY CONN Referring Unavailable MAYITO GRANADOS Referring Unavailable SUSY CARRANZA Attending Unavail able SVETLANA GARCIA Referring Unavailable ABHILASH GONZALEZ Attending Unavailable SUSY CARRANZA Attending Unavail able DARWIN, MAYITO Referring Unavailable MEJIA RALPH Attending Unavailable ABHILASH GONZALEZ Attending Unavailable DARWIN, MAYITO Referring Unavailable SVETLANA GARCIA Attending Unavailable MARY CONN Attending Unavailable DARWIN, MAYITO Referring Unavailable DARWIN, MAYITO Referring Unavailable DARWIN, MAYITO Referring Unavailable SUSY CARRANZA Attending Unavail able DARWIN, MAYITO Referring Unavailable DARWIN, MAYITO Referring Unavailable DARWIN, MAYITO Referring Unavailable DARWIN MAYITO Attending Unavailable Allergies Allergy Classification Reported Allergen(s) Allergy Type Date of Onset Reaction(s) Facility (1 source) Environmental allergy; Translations: [ENVIRONMENTAL] Propensity to adverse reactions (disorder) 8 AOF [facility] Repository (20 sources) Seasonal allergy; Translations: [SEASONAL ALLERGIES] Allergy to substance 8 Cough, Other: See Comments, Itching [facility] Work Phone: Medications Current Medications Medication Drug Class(es) Dates Sig (Normalized) Sig (Original) dicyclomine hydrochloride 20 mg oral tablet (1 source) Anticholinergic Start: 12-25-2021 End: 01-01-2022 take 1 tablet by mouth four times daily Bentyl use dicyclomine Dose : 20 mg =, Oral, QID, # 30 tab(s), 0 Refill(s), Abdominal pain Ovarian cyst Start Date: 12/25/21 Stop Date: 01/01/22 Status: Ordered Completed/Discontinued Medications Medication Drug Class(es) Dates Sig (Normalized) Sig (Original) [id number] 200 actuat albuterol 0.09 mg/actuat metered dose inhaler (20 sources) beta2-Adrenergic Agonist Start: 08-21-2022 take 2 puff(s) by inhalation every six hours as needed albuterol HFA (PROAIR HFA) 90 mcg/actuation inhaler Inhale 2 Puffs as instructed every 6 hours as needed. 18 g 0 08/21/2022 Active Problems Active Problems Problem Classification Problem Date Documented Date Episodic/Chronic Abdominal pain (5 sources) Abdominal pain; Translations: [Unspecified abdominal pain] Onset: 12-25-2021 Episodic Asthma (12 sources) Mild intermittent asthma; Translations: [Mild intermittent asthma, uncomplicated] Onset: 12-23-2022 3 Chronic Attention-deficit, conduct, and disruptive behavior disorders (11 sources) Attention deficit hyperactivity disorder; Translations: [Attention-deficit hyperactivity disorder, unspecified type] Onset: 12-28-2022 12-28-2022 Chronic Fluid and electrolyte disorders (2 sources) Hypokalemia; Translations:
[2023-02-26 16:55] LABS: AST(SGOT) 16 U/L (15-37); Alanine Aminotransfer ALT/SGPT 23 U/L (13-56); Albumin, Serum 3.8 g/dL (3.2-5.0); Alkaline Phosphatase 68 U/L (45-117); Anion Gap 6 (5-15); BUN 7 mg/dL (7-18); BUN/Creat Ratio 9.9 RATIO (10-20); Calcium,Total 8.9 mg/dL (8.5-10.1); Chloride 112 mmol/L (98-107); Creatinine, Serum 0.71 mg/dL (0.55-1.02); EST Glomerular Filtration Rate 109 mL/min (>60); Est Glom Filt Rate - Afr Amer 132 mL/min (>60); Estimated Creatinine Clearance 135.99 ml/min; Globulin 3.7 g/dL (2.2-4.2); Glucose 137 mg/dL (74-106); Lipase 24 U/L (13-75); Potassium 3.5 mmol/L (3.5-5.1); Protein, Total 7.5 g/dL (6.4-8.2); Sodium Level 142 mmol/L (136-145)
[2023-02-26] MEDS: Dicyclomine 20 MG/2 ML Vial IM (17:22)
[2023-02-26 18:02] VITALS: BP 130/74; PULSE 88; RESP 16; O2SAT 100
== END 2023-02-26 18:03 | disposition home or self-care (01) ==
PROVIDERS: Physician Assistant; Emergency Provider Emergency Medicine; Visit Provider Emergency Medicine
DX: K31.84 Gastroparesis (principal); F10.90 Alcohol use, unspecified, uncomplicated; R11.2 Nausea with vomiting, unspecified; R10.13 Epigastric pain; F17.290 Nicotine dependence, other tobacco product, uncomplicated
CPT/HCPCS: 80053; 83690; 85025; 96361; 96372; 96374; 99283; J7030; A4216; J2405

== ENCOUNTER 2023-03-04 10:37 | Day surgery (SDC) | payer OTHER, MEDICAID, SELFPAY ==
--- NOTE | 2023-03-02 13:09 | PCM.HP.BLA ---
History and Physical Date of Admission: 03/04/23 Pre-Op History and Physical ? HPI: The patient is a 22 year old female presenting for discussion of laparoscopic bilateral salpingectomy. Declines LARC. ? pre-operative visit. She is scheduled for laparoscopic bilateral salpingectomy, for desires sterilization on 03/04/22. Procedure discussed along with risks, benefits and complications. Other alternatives discussed for management. Consent form signed? Yes. ? ? PAST MEDICAL HISTORY PAST MEDICAL HISTORY Diagnosis Date ? ADHD (attention deficit hyperactivity disorder) ? ? Anemia ? ? Asthma ? ? Gastroparesis ? ? IBS (irritable bowel syndrome) ? ? PCOS (polycystic ovarian syndrome) ? ? Placental abruption in third trimester 12/27/2022 ? Reactive airway disease ? ? inhaler use with URIs ? ? PAST SURGICAL HISTORY PAST SURGICAL HISTORY Procedure Laterality Date ? D&C SUCTION ? 08/31/2021 ? Retained POC after 08/11/21 vaginal delivery ? REMOVAL GALLBLADDER ? ? ? REMOVE TONSILS/ADENOIDS,12+ Y/O ? 2018 ? ? ? CURRENT MEDICATIONS Current Outpatient Medications Medication Sig Dispense Refill ? ondansetron (ZOFRAN) 8 mg tablet Take by mouth three times a day as needed. ? ? ? prochlorperazine (COMPAZINE) 10 mg tablet Take 10 mg by mouth once daily. ? ? ? vit/iron fum/folic ac ( 1 + 1 ORAL) Take by mouth. (Patient not taking: Reported on 11/15/2022) ? ? ? ondansetron orally disintegrating (ZOFRAN ODT) 4 mg disintegrating tablet TAKE 2 TABLETS BY MOUTH EVERY 8 HOURS NEEDED FOR NAUSEA ? ? ? ferrous sulfate 325 mg (65 mg iron) tablet Take by mouth. ? ? ? albuterol HFA (PROAIR HFA) 90 mcg/actuation inhaler Inhale 2 Puffs as instructed every 6 hours as needed. 18 g 0 ? No current facility-administered medications for this visit. ? ? ALLERGIES: Seasonal Allergies ? PERSONAL HISTORY: SOCIAL HISTORY Social History ? Tobacco Use ? Smoking status: Former ? ? Years: 8 ? ? Types: Cigarettes ? ? Quit date: 11/08/2022 ? ? Years since quittin.2 ? ? Passive exposure: Past ? Smokeless tobacco: Never ? Tobacco comments: ? ? vape Vaping Use ? Vaping Use: Some days ? Substances: Nicotine Substance Use Topics ? Alcohol use: Never ? Drug use: Not Currently ? ? Types: Marijuana ? FAMILY HISTORY: FAMILY HISTORY FAMILY HISTORY Problem Relation Age of Onset ? No Known Problems Mother ? ? Diabetes Father ? ? No Known Problems Sister ? ? Breast Cancer Maternal Grandmother ? ? Obstructive Sleep Apnea Maternal Grandfather ? ? Diabetes Paternal Grandfather ? ? No Known Problems Half-brother ? ? No Known Problems Daughter ? ? ? REVIEW OF SYMPTOMS: Denies Fever PHYSICAL EXAMINATION: ? VITALS: Blood pressure 110/60, weight 194 lb (88 kg), last menstrual period 03/23/2022, not currently . ? GENERAL: The patient is well nourished, well hydrated in no acute distress. , The patient is oriented to time, place, and person. NECK: Supple. No lynphadenopathy, normal thyroid, no thyromegaly. LUNGS: Clear to auscultation bilaterally. no wheezes, rhonchi or rales HEART: Regular rate and rhythm, Normal heart sounds, and No murmurs or gallops GENITALIA: Normal external genitalia, Urethral meatus normal, Bladder nontender, normal vagina and normal vaginal tone, normal cervix, normal uterus, size and consistency, normal adnexa without masses or tenderness, and perineum WNL WET PREP: Not indicated ? IMPRESSION: 22yo desires sterilization ? PLAN: laparoscopic bilateral salpingectomy ? Pt has been counseled on risks/benefits and alternatives of surgery including but not limited to anesthesia, bleeding, infection, injury to pelvic structures including bowel, bladder, ureters and vessels. Pt wishes to proceed with surgery at this time. Risk of regret discussed with patient. Pelvic exam reviewed with patient. ? Pre and post op instructions reviewed ? ? I have reviewed and updated past medical and surgical history, medications and allergies Angeline Chu MD
[2023-03-04] VITALS (8 sets, daily range): BP systolic 125–138; BP diastolic 60–118; PULSE 62–82; RESP 16–18; TEMP 36.2–37.1; O2SAT 94–100; BMI 32.5
[2023-03-04] MEDS: Lactated Ringers 1,000 ML 15 ML IV ×2 (10:54→12:48)
[2023-03-04 11:00] LABS: Internal QC Validated? YES +Cl - CLEAR BKGD; Pregnancy, Urine Negative Negative; Record Kit Lot#,Urine Preg HCG0000718086
--- OUTSIDE RECORDS SUMMARY | 2023-03-04 11:29 | XMS RPT_ITS | CCD ---
Author Name Unknown Address [address] [place] [address] Organization [facility] Care Team Providers Care Mortgage Operations Manager Name Role Phone JOHN GALVEZ Unavailable Unavailable JOSE ALFREDO ROMEO Unavailable Unavailable DYLAN KAMAL Unavailable Unavailable JOHN GALVEZ Unavailable Unavailable JOHN GALVEZ Unavailable Unavailable JOSE ALFREDO ROMEO Unavailable Unavailable DYLAN, KAMAL Unavailable Unavailable [facility], [facility] Attending Unava ilable POMERENE, [facility] Primary Care Unava ilable POMERENE, [facility] Admitting Unava ilable Unavailable Primary Care Provider Unavailjuan carlos e PHYSICIAN, NONE Primary Care Physician Unavailab MARICRUZ Gilman MD Attending Unavail able PHYSICIAN, NONE Primary Care Unavailable Unavailable Primary Care Provider UnavailJYOTI Ridley Attending Unavailable NO, PHYSICIAN Primary Care Unavailable NONE, NONE Primary Care Unavailable LOFTON DO~[id number], LOFTON PATITO K Attending Unavailable LOFTON DO~[id number], LOFTON PATITO K Admitting Unavailable JYOTI RODRIGES MD Consulting Unavailable JYOTI RODRIGES MD Consulting Unavailable NONE, NONE Consulting Unavailable DECLINED, Consulting Unavailable [facility] PROFESSIONALLUIS MANUEL Mendez Consulting Unavailab LUIS MANUEL Mcclelland APRN Consulting Unavailab SONY Streeter Attending Unavailable CHRISTIAN MONDRAGON Admitting Unavailable ANGELINE CARRANZA Attending Unavail able STEPHEN PRETTY Attending Unavailable DANNI REYNOLDS Attending Unavailable DANNI REYNOLDS Referring Unavailable MAYITO GRANADOS Referring Unavailable ANGELINE CARRANZA Attending Unavail able SVETLANA SCHAEFFER Referring Unavailable ANSLEY IBRAHIM Attending Unavailable ANGELINE CARRANZA Attending Unavail able DARWIN, MAYITO Referring Unavailable RUDOLPH RALPH Attending Unavailable ANSLEY IBRAHIM Attending Unavailable DARWIN, MAYITO Referring Unavailable SVETLANA SCHAEFFER Attending Unavailable DANNI REYNOLDS Attending Unavailable DARWIN, MAYITO Referring Unavailable DARWIN, MAYITO Referring Unavailable DARWIN, MAYITO Referring Unavailable ANGELINE CARRANZA Attending Unavail able DARWIN, MAYITO Referring Unavailable DARWIN, MAYITO Referring Unavailable DARWIN, MAYITO Referring Unavailable DARWIN MAYITO Attending Unavailable Allergies Allergy Classification Reported Allergen(s) Allergy Type Date of Onset Reaction(s) Facility (1 source) Environmental allergy; Translations: [ENVIRONMENTAL] Propensity to adverse reactions (disorder) 8 AOF [facility] Repository (20 sources) Seasonal allergy; Translations: [SEASONAL ALLERGIES] Allergy to substance 8 Cough, Other: See Comments, Itching [facility] Work Phone: Medications Current Medications Medication Drug [...] Drug Class(es) Dates Sig (Normalized) Sig (Original) [id number] 200 actuat albuterol 0.09 mg/actuat metered dose [...] and electrolyte disorders (2 sources) Hypokalemia; Translations: [Hypokalemia] Onset: 06-15-2022 Episodic Genitourinary symptoms and ill-defined conditions (3 sources) Proteinuria, unspecified; Translations: [Scalding pain on urination ] Onset: 06-15-2022 Episodic Hemorrhage during ; abruptio placenta; placenta previa (14 sources) Third trimester bleeding; Translations: [Antepartum hemorrhage, unspecified, third trimester] Onset: 12-24-2022 12-24-2022 Episodic Nausea and vomiting (2 sources) Nausea with vomiting, unspecified; Translations: [Nausea with vomiting, unspecified] Onset: 06-15-2022 Episodic Other complications of (1 source) Maternal obesity complicating , childbirth and the puerperium, antepartum; Translations: [Obesity complicating , third trimester] 12-28-2022 Chronic Other complications of (3 sources) Spotting complicating , first trimester; Translations: [SPOTTING COMP FIRST TRI] Onset: 07-11-2022 Episodic Other complications of (7 sources) Nausea and vomiting; Translations: [Vomiting of , unspecified] Onset: 11-15-2022 11-15-2022 Episodic Other complications of (19 sources) RhD negative; Translations: [Other specified related conditions, unspecified trimester] Onset: 11-22-2022 11-22-2022 Episodic Other complications of (20 sources) Poor growth affecting management; Translations: [Maternal care for other known or suspected poor growth, third trimester, not applicable or unspecified] Onset: 12-23-2022 12-24-2022 Episodic Other complications of (1 source) Depressive disorder; Translations: [Other mental disorders complicating , third trimester] Onset: 12-24-2022 12-24-2022 Episodic Other complications of (8 sources) High risk ; Translations: [Supervision of other high risk pregnancies, third trimester] 12-28-2022 Episodic Other complications of (1 source) Maternal care for other known or suspected poor growth, third trimester, not applicable or unspecified; Translations: [Poor growth affecting management of mother in third trimester, single or unspecified fetus] Onset: 12-28-2022 Episodic Other complications of (1 source) Supervision of other high risk pregnancies, third trimester; Translations: [Supervision of other high risk pregnancies, third trimester] Onset: 01-17-2023 Episodic Other complications of (1 source) Other specified related conditions, unspecified trimester; Translations: [Rh negative state in antepartum period] Onset: 12-27-2022 Episodic Other connective tissue disease (1 source) Pain in right hand; Translations: [Pain in right hand] Episodic Other disorders of stomach and duodenum (20 sources) Gastroparesis syndrome; Translations: [Gastroparesis] Onset: 11-15-2022 11-15-2022 Episodic Other female genital disorders (12 sources) Vaginal bleeding; Translations: [Abnormal uterine and vaginal bleeding, unspecified] Onset: 12-23-2022 12-24-2022 Chronic Other female genital disorders (1 source) Abnormal uterine and vaginal bleeding, unspecified; Translations: [Vaginal bleeding] Onset: 12-23-2022 Chronic Other lower respiratory disease (1 source) H/O: asthma; Translations: [Personal history of other diseases of the respiratory system] Episodic Other nutritional; endocrine; and metabolic disorders (1 source) Body mass index (BMI) 60.0-69.9, adult; Translations: [BODY MASS INDEX BMI 60.0-69.9 ADULT] Onset: 07-14-2022 Chronic Other and delivery including normal (20 sources) ; Translations: [Encounter for supervision of normal , unspecified, unspecified trimester] Onset: 11-15-2022 11-15-2022 Episodic Other upper respiratory infections (3 sources) Viral upper respiratory tract infection; Translations: [Acute upper respiratory infection, unspecified] Episodic Ovarian cyst (1 source) Cyst of ovary; Translations: [Unspecified ovarian cyst, unspecified side] Onset: 12-25-2021 Episodic Polyhydramnios and other problems of amniotic cavity (2 sources) Amniotic fluid leaking; Translations: [Premature rupture of membranes, unspecified as to length of time between rupture and onset of labor, unspecified weeks of gestation] Onset: 12-20-2022 12-20-2022 Episodic Residual codes; unclassified (1 source) Procedure not done; Translations: [Procedure and treatment not carried out, unspecified reason] Episodic Residual codes; unclassified (1 source) Gestation period, 16 weeks; Translations: [16 weeks gestation of ] 08-19-2022 Episodic Residual codes; unclassified (1 source) 11 weeks gestation of ; Translations: [11 WEEKS GESTATION OF ] Onset: 07-14-2022 Episodic Residual codes; unclassified (19 sources) Nicotine-filled electronic cigarette user; Translations: [Tobacco use] Onset: 11-15-2022 11-15-2022 Episodic Residual codes; unclassified (1 source) Gestation period, 29 weeks; Translations: [29 weeks gestation of ] 11-22-2022 Episodic Residual codes; unclassified (1 source) Gestation period, 31 weeks; Translations: [31 weeks gestation of ] 12-06-2022 Episodic Residual codes; unclassified (1 source) Gestation period, 33 weeks; Translations: [33 weeks gestation of ] 12-20-2022 Episodic Residual codes; unclassified (13 sources) Gestation period, 34 weeks; Translations: [34 weeks gestation of ] Onset: 12-23-2022 12-24-2022 Episodic Residual codes; unclassified (1 source) Gestation period, 35 weeks; Translations: [35 weeks gestation of ] 12-31-2022 Episodic Residual codes; unclassified (4 sources) Gestation period, 36 weeks; Translations: [36 weeks gestation of ] 01-05-2023 Episodic Residual codes; unclassified (2 sources) Gestation period, 37 weeks; Translations: [37 weeks gestation of ] 01-13-2023 Episodic Residual codes; unclassified (1 source) 37 weeks gestation of ; Translations: [37 weeks gestation of ] Onset: 01-17-2023 Episodic Residual codes; unclassified (1 source) 36 weeks gestation of ; Translations: [36 weeks gestation of ] Onset: 01-05-2023 Episodic Residual codes; unclassified (1 source) Unspecified blood type, Rh negative; Translations: [Rh negative state in antepartum period] Onset: 12-27-2022 Episodic Residual codes; unclassified (1 source) 33 weeks gestation of ; Translations: [33 weeks gestation of ] Onset: 01-03-2023 Episodic Substance-related disorders (20 sources) Cannabis abuse, uncomplicated; Translations: [History of clinical finding in subject] Onset: 07-14-2022 11-15-2022 Chronic Substance-related disorders (1 source) Drug use complicating , first trimester; Translations: [DRUG USE COMP FIRST TRI] Onset: 07-14-2022 Episodic Unclassified (1 source) History of marijuana use; Translations: [History of marijuana use] Onset: 12-27-2022 Viral infection (1 source) Viral disease; Translations: [Viral infection, unspecified] 08-21-2022 Episodic Past or Other Problems Problem Classification Problem Date Documented Da te Episodic/Chronic Other disorders of stomach and duodenum (1 source) Gastroparesis; Translations: [Gastroparesis] Onset: 11-15-2022 Episodic Residual codes; unclassified (1 source) 29 weeks gestation of ; Translations: [29 weeks gestation of ] Onset: 11-22-2022 Episodic Screening and history of mental health and substance abuse codes (20 sources) H/O: depression; Translations: [Personal history of other mental and behavioral disorders] Onset: 11-15-2022 11-15-2022 Episodic NEGATED: Highlighted row has been ruled out!Unclassified (3 sources) No known active problems 12-09-2021 Results Test Name Value Interpretation Reference Range Facil ity Vital Signs Date Time Vital Sign Value Performing Clinician Facility 01-13-2023 11:01-0500 Body weight 89 kg Stephen Pretty MD Work Phone: [facility] 01-13-2023 11:01-0500 Diastolic blood pressure 69 mm[Hg] Stephen Pretty MD Work Phone: [facility] 01-13-2023 11:01-0500 Systolic blood pressure 110 mm[Hg] Stephen Pretty MD Work Phone: [facility] 01-10-2023 12:57-0500 Diastolic blood pressure 76 mm[Hg] Ob Ultrasound Work Phone: [facility] 01-10-2023 12:57-0500 Systolic blood pressure 124 mm[Hg] Ob Ultrasound Work Phone: [facility] 01-05-2023 14:44-0500 Body weight 88 kg Danni Plotts HVAC SERVICES PROFESSIONAL.CNM Work Phone: [facility] 01-05-2023 14:44-0500 Diastolic blood pressure 62 mm[Hg] Danni Plotts HVAC SERVICES PROFESSIONAL.CNM Work Phone: [facility] 01-05-2023 14:44-0500 Systolic blood pressure 108 mm[Hg] Danni Plotts HVAC SERVICES PROFESSIONAL.CNM Work Phone: [facility] 12-31-2022 15:02-0500 Body weight 86.18 kg Angeline Kulkarni MD Work Phone: [facility] 12-31-2022 15:02-0500 Diastolic blood pressure 66 mm[Hg] Angeline Kulkarni MD Work Phone: [facility] 12-31-2022 15:02-0500 Systolic blood pressure 110 mm[Hg] Angeline Kulkarni MD Work Phone: [facility] 12-28-2022 08:11-0500 Body weight 89 kg Rudolph Ralph MD Work Phone: [facility] 12-28-2022 08:11-0500 Diastolic blood pressure 70 mm[Hg] Rudolph Ralph MD Work Phone: [facility] 12-28-2022 08:11-0500 Systolic blood pressure 110 mm[Hg] Rudolph Ralph MD Work Phone: [facility] 12-20-2022 15:24-0500 Body weight 88.09 kg Svetlana Schaeffer HVAC SERVICES PROFESSIONAL.HEALTH TECHNICIAN Work Phone: [facility] 12-20-2022 15:24-0500 Diastolic blood pressure 58 mm[Hg] Svetlana Haury HVAC SERVICES PROFESSIONAL.HEALTH TECHNICIAN Work Phone: [facility] 12-20-2022 15:24-0500 Systolic blood pressure 100 mm[Hg] Svetlana Haury HVAC SERVICES PROFESSIONAL.HEALTH TECHNICIAN Work Phone: [facility] 12-06-2022 16:39-0400 Body weight 86.82 kg Ansley Ibrahim HVAC SERVICES PROFESSIONAL.CNM Work Phone: [facility] 12-06-2022 16:39-0400 Diastolic blood pressure 66 mm[Hg] Ansley Ibrahim HVAC SERVICES PROFESSIONAL.CNM Work Phone: [facility] 12-06-2022 16:39-0400 Systolic blood pressure 110 mm[Hg] Ansley Ibrahim HVAC SERVICES PROFESSIONAL.CNM Work Phone: [facility] 11-22-2022 12:56-0400 Body height 165.1 cm Danni Plotts HVAC SERVICES PROFESSIONAL.CNM Work Phone: [facility] 11-22-2022 12:56-0400 Body weight 85.73 kg Danni Plotts HVAC SERVICES PROFESSIONAL.CNM Work Phone: [facility] 11-22-2022 12:56-0400 Diastolic blood pressure 60 mm[Hg] Danni Plotts HVAC SERVICES PROFESSIONAL.CNM Work Phone: [facility] 11-22-2022 12:56-0400 Systolic blood pressure 104 mm[Hg] Danni Plotts HVAC SERVICES PROFESSIONAL.CNM Work Phone: [facility] 08-21-2022 10:34-0400 Body temperature 97.9 [degF] Wilfrid Pendlebury HVAC SERVICES PROFESSIONAL.HEALTH TECHNICIAN Work Phone: [facility] 08-21-2022 10:34-0400 Body weight 83.73 kg Wilfrid Laura HVAC SERVICES PROFESSIONAL.HEALTH TECHNICIAN Work Phone: [facility] 08-21-2022 10:34-0400 Diastolic blood pressure 64 mm[Hg] Wilfrid Pendlebury HVAC SERVICES PROFESSIONAL.HEALTH TECHNICIAN Work Phone: [facility] 08-21-2022 10:34-0400 Heart rate 86 /min Wilfrid Keya HVAC SERVICES PROFESSIONAL.HEALTH TECHNICIAN Work Phone: [facility] 08-21-2022 10:34-0400 Respiratory rate 21 /min Wilfrid Keya HVAC SERVICES PROFESSIONAL.HEALTH TECHNICIAN Work Phone: [facility] 08-21-2022 10:34-0400 SaO2% (BldA) [Mass fraction] 98 % Wilfrid Hayesmadeline HVAC SERVICES PROFESSIONAL.HEALTH TECHNICIAN Work Phone: [facility] 08-21-2022 10:34-0400 Systolic blood pressure 118 mm[Hg] Wilfrid Hayesbury HVAC SERVICES PROFESSIONAL.HEALTH TECHNICIAN Work Phone: [facility] 08-19-2022 16:07-0400 Body temperature 97.59 [degF] Lyric Whitmanhof HVAC SERVICES PROFESSIONAL.HEALTH TECHNICIAN Work Phone: [facility] 08-19-2022 16:07-0400 Body weight 85 kg Lyricberna Whitmanhof HVAC SERVICES PROFESSIONAL.HEALTH TECHNICIAN Work Phone: [facility] 08-19-2022 16:07-0400 Diastolic blood pressure 64 mm[Hg] Lyric Tannhof HVAC SERVICES PROFESSIONAL.HEALTH TECHNICIAN Work Phone: [facility] 08-19-2022 16:07-0400 Heart rate 86 /min Lyric Whitmanhof HVAC SERVICES PROFESSIONAL.HEALTH TECHNICIAN Work Phone: [facility] 08-19-2022 16:07-0400 Respiratory rate 18 /min Lyric Whitmanhof HVAC SERVICES PROFESSIONAL.HEALTH TECHNICIAN Work Phone: [facility] 08-19-2022 16:07-0400 SaO2% (BldA) [Mass fraction] 99 % Lyric Whitmanhof HVAC SERVICES PROFESSIONAL.HEALTH TECHNICIAN Work Phone: [facility] 08-19-2022 16:07-0400 Systolic blood pressure 118 mm[Hg] Lyric Whitmanhof HVAC SERVICES PROFESSIONAL.HEALTH TECHNICIAN Work Phone: [facility] 12-25-2021 11:06-0500 Diastolic Blood Pressure Non-Invasive 65 1 MARICRUZ ZAMUDIO MD [facility] 12-25-2021 11:06-0500 Heart rate 66 /min MARICRUZ ZAMUDIO MD [facility] 12-25-2021 11:06-0500 Respiratory rate 20 /min MARICRUZ ZAMUDIO MD [facility] 12-25-2021 11:06-0500 Systolic Blood Pressure Non-Invasive 130 1 MARICRUZ ZAMUDIO MD [facility] 12-25-2021 09:28-0500 Body height 165.1 cm MARICRUZ ZAMUDIO MD [facility] 12-25-2021 09:28-0500 Body weight 90 kg MARICRUZ ZAMUDIO MD [facility] 12-25-2021 09:28-0500 Diastolic Blood Pressure Non-Invasive 87 1 MARICRUZ ZAMUDIO MD [facility] 12-25-2021 09:28-0500 Heart rate 87 /min MARICRUZ ZAMUDIO MD [facility] 12-25-2021 09:28-0500 Respiratory rate 22 /min MARICRUZ ZAMUDIO MD [facility] 12-25-2021 09:28-0500 Systolic Blood Pressure Non-Invasive 132 1 MARICRUZ ZAMUDIO MD [facility] 12-09-2021 12:22-0400 Body temperature 98.2 [degF] Delmer Bradshaw HVAC SERVICES PROFESSIONAL.HEALTH TECHNICIAN Work Phone: [facility] 12-09-2021 12:22-0400 Body weight 91.26 kg Delmer Bradshaw HVAC SERVICES PROFESSIONAL.HEALTH TECHNICIAN Work Phone: [facility] 12-09-2021 12:22-0400 Diastolic blood pressure 80 mm[Hg] Delmer Bradshaw HVAC SERVICES PROFESSIONAL.HEALTH TECHNICIAN Work Phone: [facility] 12-09-2021 12:22-0400 Heart rate 100 /min Delmer Augustine HVAC SERVICES PROFESSIONAL.HEALTH TECHNICIAN Work Phone: [facility] 12-09-2021 12:22-0400 Respiratory rate 21 /min Delmer Augustine HVAC SERVICES PROFESSIONAL.HEALTH TECHNICIAN Work Phone: [facility] 12-09-2021 12:22-0400 SaO2% (BldA) [Mass fraction] 99 % Delmer Augustine HVAC SERVICES PROFESSIONAL.HEALTH TECHNICIAN Work Phone: [facility] 12-09-2021 12:22-0400 Systolic blood pressure 120 mm[Hg] Delmer Augustine HVAC SERVICES PROFESSIONAL.HEALTH TECHNICIAN Work Phone: [facility] 10-27-2021 18:13-0400 Body temperature 98.6 [degF] Ansley Heller HVAC SERVICES PROFESSIONAL.HEALTH TECHNICIAN Work Phone: [facility] 10-27-2021 18:13-0400 Body weight 85.91 kg Ansley Heller HVAC SERVICES PROFESSIONAL.HEALTH TECHNICIAN Work Phone: [facility] 10-27-2021 18:13-0400 Diastolic blood pressure 78 mm[Hg] Ansley Heller HVAC SERVICES PROFESSIONAL.HEALTH TECHNICIAN Work Phone: [facility] 10-27-2021 18:13-0400 Heart rate 91 /min Ansley Heller HVAC SERVICES PROFESSIONAL.HEALTH TECHNICIAN Work Phone: [facility] 10-27-2021 18:13-0400 Respiratory rate 18 /min Ansley Heller HVAC SERVICES PROFESSIONAL.HEALTH TECHNICIAN Work Phone: [facility] 10-27-2021 18:13-0400 SaO2% (BldA) [Mass fraction] 99 % Ansley Heller HVAC SERVICES PROFESSIONAL.HEALTH TECHNICIAN Work Phone: [facility] 10-27-2021 18:13-0400 Systolic blood pressure 120 mm[Hg] Ansley Heller HVAC SERVICES PROFESSIONAL.HEALTH TECHNICIAN Work Phone: [facility] Encounters Encounter Date Encounter Type Care Provider Facility Start: 02-23-2023 End: 02-23-2023 ambulatory ANGELINE KULKARNI Facility:[facility] Start: 01-26-2023 End: 01-26-2023 ambulatory ANGELINE KULKARNI Facility:[facility] Start: 01-18-2023 ambulatory Ansley Patrice MERCADO.CNM Work Phone: OB/Gynecology Procedures Date Procedure Procedure Detail Performing Clinician Start: 01-17-2023 URINE OB DIP B/O Michael Granados MD Work Phone: Start: 01-13-2023 URINE OB DIP B/O Stephen Pretty MD Work Phone: Start: 01-10-2023 biophysical pr ofile non-stress testing Mayito Granados MD Work Phone: Start: 01-05-2023 URINE OB DIP B/O Shashi Reynolds HVAC SERVICES PROFESSIONAL.CNM Work Phone: Start: 01-05-2023 biophysical pr ofile non-stress testing Mayito Granados MD Work Phone: Start: 12-31-2022 URINE OB DIP B/O Angeline Kulkarni MD Work Phone: Start: 12-28-2022 biophysical pr ofile non-stress testing Mayito Granados MD Work Phone: Start: 12-24-2022 Us preg uterus after 1st trimest 1 gestation Negin Otoole Work Phone: Start: 12-23-2022 Antibody screen SONY SUTTON Plan of Treatment Date Care Activity Detail Author Start: 12-15-2024 Pap Testing Pap Testing [facility] Start: 12-15-2024 Screening for malign ant neoplasm of cervix Pap Testing [facility] Start: 09-20-2023 Urine microalbumin profile DTaP,Tdap,Td Vaccine (7 - Td or Tdap) [facility] Start: 06-19-2023 Chlamydia Screening (18) Chlamydia Screening (18) [facility] Start: 06-19-2023 GC (Gonorrhea) Scree delmy (18-24) GC (Gonorrhea) Screening (18-) [facility] Start: 06-19-2023 Screening for Chlamy gogo trachomatis Chlamydia Screening () [facility] Start: 12-20-2022 End: 03-21-2023 CBC panel - Blood by Automated count CBC Lab Routine 33 weeks gestation of Expected: 12/20/2022, Expires: 03/21/2023 [facility] Work Phone: Immunizations Immunization Date Immunization Notes Care Provider Yamel rodrigueznaa 11-22-2022 RHO(D) immune globul in- IV or IM Danni Reynolds HVAC SERVICES PROFESSIONAL.CN Work Phone: [facility] Work Phone: 09-19-2013 human papilloma viru s vaccine, quadrivalent Ansley Ibrahim HVAC SERVICES PROFESSIONAL.CN Work Phone: [facility] Work Phone: 09-19-2013 tetanus toxoid, redu marycruz diphtheria toxoid, and acellular pertussis vaccine, adsorbed Ansley Ibrahim HVAC SERVICES PROFESSIONAL.CN Work Phone: [facility] Work Phone: 09-26-2006 diphtheria, tetanus toxoids and acellular pertussis vaccine, unspecified formulation Ansley Ibrahim HVAC SERVICES PROFESSIONAL.CNM Work Phone: [facility] Work Phone: 09-26-2006 hepatitis A vaccine, unspecified formulation Ansley Ibrahim HVAC SERVICES PROFESSIONAL.CNM Work Phone: [facility] Work Phone: 09-26-2006 measles, mumps, rube lla, and varicella virus vaccine Ansley Ibrahim HVAC SERVICES PROFESSIONAL.CNM Work Phone: [facility] Work Phone: 09-26-2006 poliovirus vaccine, inactivated Ansley Ibrahim HVAC SERVICES PROFESSIONAL.CNM Work Phone: [facility] Work Phone: 11-23-2004 diphtheria, tetanus toxoids and acellular pertussis vaccine, unspecified formulation Ansley Ibrahim HVAC SERVICES PROFESSIONAL.CNM Work Phone: [facility] Work Phone: 11-23-2004 haemophilus influenz ae type b vaccine, conjugate unspecified formulation Ansleyhenrietta Ibrahim APRN.CNM Work Phone: [facility] Work Phone: 11-23-2004 pneumococcal conjuga te vaccine, 7 valent Ansleyhenrietta Ibrahim APRN.CNM Work Phone: [facility] Work Phone: 11-23-2004 poliovirus vaccine, inactivated Ansley Ibrahim APRN.CNM Work Phone: [facility] Work Phone: 11-23-2004 varicella virus vaccine Bia Ibrahim APRN.CNM Work Phone: [facility] Work Phone: 03-27-2002 haemophilus influenz ae type b vaccine, conjugate unspecified formulation Ansley Ibrahim APRN.CNM Work Phone: [facility] Work Phone: 03-27-2002 hepatitis B vaccine, pediatric or pediatric/adolescent dosage Ansley Ibrahim APRN.CNM Work Phone: [facility] Work Phone: 03-27-2002 measles, mumps and rubella virus vaccine Ansleyhenrietta Ibrahim APRN.CNM Work Phone: [facility] Work Phone: 03-27-2002 pneumococcal conjuga te vaccine, 7 valent Ansley Ibrahim APRN.CNM Work Phone: [facility] Work Phone: 06-30-2001 DTP-Haemophilus influenzae type b conjugate vaccine Ansleyhenrietta Ibrahim APRN.CNM Work Phone: [facility] Work Phone: 06-30-2001 pneumococcal polysaccharide vaccine, 23 valent Ansley Ibrahim APRN.CNM Work Phone: [facility] Work Phone: 05-05-2001 DTP-Haemophilus influenzae type b conjugate vaccine Ansley Ibrahim APRN.CNM Work Phone: [facility] Work Phone: 05-05-2001 pneumococcal polysaccharide vaccine, 23 valent Ansley Ibrahim HVAC SERVICES PROFESSIONAL.CNM Work Phone: [facility] Work Phone: 05-05-2001 poliovirus vaccine, inactivated Ansley Ibrahim HVAC SERVICES PROFESSIONAL.CNM Work Phone: [facility] Work Phone: 03-07-2001 DTP-Haemophilus influenzae type b conjugate vaccine Ansley Ibrahim HVAC SERVICES PROFESSIONAL.CNM Work Phone: [facility] Work Phone: 03-07-2001 pneumococcal conjuga te vaccine, 7 valent Ansley Ibrahim HVAC SERVICES PROFESSIONAL.CNM Work Phone: [facility] Work Phone: 03-07-2001 poliovirus vaccine, inactivated Ansley Ibrahim HVAC SERVICES PROFESSIONAL.CNM Work Phone: [facility] Work Phone: 01-30-2001 hepatitis B vaccine, pediatric or pediatric/adolescent dosage Ansley Ibrahim HVAC SERVICES PROFESSIONAL.CNM Work Phone: [facility] Work Phone: 2000 hepatitis B vaccine, pediatric or pediatric/adolescent dosage Ansley Ibrahim HVAC SERVICES PROFESSIONAL.CNM Work Phone: [facility] Work Phone: Payers Date Payer Category Payer Unknown [id number] 2021 Medicaid [id number] 2021 Medicaid [id number] 2013 Private Health Insurance [id number] 2000 Unknown [id number] 2000 Unknown [id number] [id number]. [id number] 2000 Unknown [id number] 1977 Unknown [id number] 1977 Unknown [id number]. [id number] 1959 Private Health Insurance [id number] Social History Date Type Detail Facility Start: 10-27-2021 End: 11-15-2022 Tobacco smoking status NHIS Ex-smoker [facility] End: 11-08-2022 History of tobacco use Current smoker [facility] End: 11-08-2022 History of tobacco use Cigarette Smoker [facility] Start: 10-27-2021 End: 11-15-2022 Tobacco use and exposure Smokeless tobacco non-user [facility] Start: 10-27-2021 End: 01-19-2023 Alcohol intake Lifetime non-drinker (finding) [facility] Start: 10-27-2021 Tobacco Comment vape [facility] Start: 2000 Sex Assigned At Not on file [facility] Start: 10-17-2021 End: 12-09-2021 Exposure to SARS-CoV-2 (event) Not sure [facility] Tobacco smoking status No Smokin g Status Entered [facility] Sex Assigned At Female [facility] Start: 08-19-2022 End: 11-15-2022 History of Social function [facility] Start: 08-19-2022 End: 11-15-2022 Tobacco use panel [facility] History of tobacco use Passive smoker [facility] National Score (1-10 0), lower number is lower risk Not on file [facility] Start: 05-12-2022 [facility] Start: 11-15-2022 Education 11 [facility] Goals Date Patient Goal Desired Activity /State Personal health goal Personal health goal Mental Status Date Assessment Result Facility 12-25-2021 Mental Status Orientation Oriented x 4 [facility] 11-18-2022 Mental Status [facility] Clinical Notes 10-27-2021 to 02-23-2023 Stephanie Boateng RN - 01/19/2023 8:27 AM ESTPrenatal Quick Notes - Mayito Granados MD - 01/17/2023 5:17 PM ESTPatient InstructionsStephen Pretty MD - 01/13/2023 11:48 AM ESTPatient Instructions Note Date & Type Note Facility 02-23-2023 Note HNO ID: [id number] Author: ANGELINE CARRANZA MD Service: ? Author Type: Physician Type: Progress Notes Filed: 02/23/2023 11:03 Note Text: Artist Agent offered: Patient declines. VISIT Chana De La O is a 22 year old year old here for visit. Delivery Summary: 01/18/2023 Female Avelyn 4lb 15 oz ROS/ Recovery: Feeding: Bottle feeding problems: None Menses since delivery: none Menstrual pattern prior to : Regular periods [place] since delivery: Resumed Depression: denies symptoms of depression. OB Depression and Anxiety Screening- This Encounter (since 02/22/2023) Over the past 2 weeks have you felt down, depressed, or hopeless? Negative Over the past two weeks, have you felt little interest or pleasure in doing things?? Negative Feeling nervous, anxious or on edge 0-Not at all Not being able to stop or control worrying 0-Not al all Anxiety Pre-Screening Total (If >/= 3 additional questions will be reviewed) 0 Emotional support: Yes Bowel symptoms: Negative for abdominal discomfort, blood in stools or black stools and change in bowel habits Abdomen: N/A Bladder symptoms: No dysuria, gross hematuria, urinary frequency, urinary urgency, or incontinence Other issues: None Last Pap: 2021 normal HPV: N/A PAST MEDICAL HISTORY Diagnosis Date ADHD (attention deficit hyperactivity disorder) Anemia Asthma Gastroparesis IBS (irritable bowel syndrome) PCOS (polycystic ovarian syndrome) Placental abruption in third trimester 12/27/2022 Reactive airway disease inhaler use with URIs PAST SURGICAL HISTORY Procedure Laterality Date DANDC SUCTION 08/31/2021 Retained POC after 08/11/21 vaginal delivery REMOVAL GALLBLADDER REMOVE TONSILS/ADENOIDS,12+ Y/O 2018 FAMILY HISTORY Problem Relation Age of Onset No Known Problems Mother Diabetes Father No Known Problems Sister Breast Cancer Maternal Grandmother Obstructive Sleep Apnea Maternal Grandfather Diabetes Paternal Grandfather No Known Problems Half-brother No Known Problems Daughter Social History Tobacco Use Smoking status: Former Years: 8 Types: Cigarettes Quit date: 11/08/2022 Years since quittin.2 Passive exposure: Past Smokeless tobacco: Never Tobacco comments: vape Vaping Use Vaping Use: Some days Substances: Nicotine Substance Use Topics Alcohol use: Never Drug use: Not Currently Types: Marijuana PHYSICAL EXAMINATION: BP 110/60 Wt 194 lb (88.0kg) LMP 03/23/2022 GENERAL: pleasant, female in no apparent distress HEENT: Normocephalic, atraumatic, mucus membranes moist, and no lesions NECK: Supple, full range of motion, no adenopathy, and thyroid normal DERMATOLOGY: Normal, without lesions, non-icteric, and non-hirsute BREAST: soft, non-tender, symmetric, no dominant mass, normal nipple-areolar complex, no lymphadenopathy, and no nipple discharge CHEST: Normal inspiratory effort ABDOMEN: soft, non-tender, and no masses. PELVIC: external genitalia normal, normal Bartholin's glands, urethra, Mendota's glands, no vulvar lesions, no cervical lesions, good vaginal support, physiologic discharge present, normal appearing perineal body and perianal region BIMANUAL: uterus normal size, shape and consistency, no adnexal masses, and non-tender NEURO: alert and oriented x3,exam grossly non-focal EXTREMITIES: normal ASSESSMENT AND PLAN: 22 year old status post with normal course. Contraception plan: tubal ligation Follow up: RTC for annual exams and PRN, Pap with reflex, Pre op today for salpingectomy Angeline Del Castillo MD [facility] 01-26-2023 Note HNO ID: [id number] Author: Angeline Carranza MD Service: ? Author Type: Physician Type: Progress Notes Filed: 01/26/2023 4:15 PM Note Text: EARLY VISIT Chana De La O is a 22 year old here for 1 week visit. Delivery Summary: 01/18/2023 Female Avelyn 4lb 15 oz ROS: General: Denies any fever or chills Hypertension Screening: Headache? No. Visual Changes? No Epigastric Pain? No Increased Swelling? No Taking any BP medications at home? No If applicable, monitoring BP at home? (If Yes, include results) NA Mood: normal Depression: denies symptoms of depression. OB Depression and Anxiety Screening- This Encounter (since 01/25/2023) Over the past 2 weeks have you felt down, depressed, or hopeless? Negative Over the past two weeks, have you felt little interest or pleasure in doing things?? Negative Feeling nervous, anxious or on edge 0-Not at all Not being able to stop or control worrying 0-Not al all Anxiety Pre-Screening Total (If >/= 3 additional questions will be reviewed) 0 Feeding: Bottle feeding problems: None Bladder: No dysuria, gross hematuria, urinary frequency, urinary urgency, or incontinence Bowel symptoms: Negative for abdominal discomfort, blood in stools or black stools and change in bowel habits Abdomen: N/A Bleeding: light flow Bottom and Perineum: No issues Sleep: no sleep concerns, feels rested [place] since delivery: Not resumed Emotional support: Yes Exercise: N/A Other issues: None PHYSICAL EXAMINATION: Wt 184 lb (83.5 kg) LMP 03/23/2022 (Approximate) No BMI 30.62 kg/m? General: pleasant,female in no apparent distress, AANDO x 3. Skin warm and intact. Breast: Deferred Abdomen: Deferred /Incision: N/A Pelvic: Deferred Bimanual: Deferred ASSESSMENT AND PLAN: 22 year old status post with normal course. Contraception plan: tubal ligation. Reinforced 6-week pelvic rest. Encouraged condom usage should patient deviate. Education: resources provided - see MA/RN note Title 19 signed today Follow up: Return to Clinic for 6 week visit and as needed Angeline Del Castillo MD [facility] 01-19-2023 Note HNO ID: [id number] Author: Stephanie Boateng RN Service: ? Author Type: Registered Nurse Type: Progress Notes Filed: 01/19/2023 8:29 AM Note Text: Patient delivered via at [facility] on 01/18/23 per Ansley Ibrahim CNM. See OB Outcome note. Stephanie Boateng RN [facility] 01-19-2023 History of Presen t illness Narrative Patient delivered via at [facility] on 01/18/23 per Ansley Ibrahim CNM. See OB Outcome note. Stephanie Boateng RN documented in this encounter [facility] 01-17-2023 Miscellaneous Notes Formattin g of this note might be different from the original. RR- VB No. LOF No. CTXS irreg Movement: present. Other c/o: abdominal pain that is normal for her even prepregnancy Medication list reviewed. Physical Exam See Flow Sheet Abd: soft, nontender, gravid Ext: edema: Trace A/P 37w5d Estimated Date of Delivery: 02/02/23 r/ba to induction for IUGR reviewed, questions answered, consent signed. [facility] 09/14 today. . Mayito Granados M.D. documented in this encounter [facility] 01-17-2023 Instructions Danitza Hunter MA - 01/17/2023 12:09 PM EST SEQUENTIAL SCREENINGS The [facility] offers sequential screenings for women who are interested in screenings for chromosomal abnormalities and certain defects during a . The sequential screen combines ultrasound and blood tests to determine the risk of chromosomal abnormalities, including Down's Syndrome (Trisomy 21) and Trisomy 18, as well as open neural tube defects including spina bifida. Ultrasound examination is performed between 11 weeks and 13 weeks gestational age. Blood tests are drawn after the ultrasound and again later in the between 15 and 21 weeks gestational age. Please let your physician know if you are interested in this testing. It will require an appointment with our cardiopulmonary technician. This is not an ultrasound performed by a physician in our office during a routine visit. SIGNS AND SYMPTOMS OF LABOR 1. Contractions every 10 minutes or more often 2. Clear, pink, or brownish fluid (water) leaking from vagina 3. Feeling that baby is pushing down, pressure 4. Low, dull backache 5. Cramps that feel like a period 6. Cramps with or without diarrhea If you notice any of the above symptoms, contact our office at [phone] and ask to speak with a nurse. After hours, you can call doctors registry at [phone] OR call [facility] at [phone] and ask to have the doctor mobile phone salesperson paged. If you consider this an emergency, dial 9--1 or go to your nearest emergency department. NEED HELP? Are you dealing with a violent or abusive relationship? Are you a victim of rape or sexual assult? Call [facility] ([place]) 24 hour Crisis Hotline: 890.710.5739 or 458-208-7253. MANUAL Your Guide to a Healthy manual is now on-line. Visit [email or web address] to download your free copy documented in this encounter [facility] 01-13-2023 Note HNO ID: [id number] Author: Stephen Pretty MD Service: ? Author Type: Physician Type: Progress Notes Filed: 01/13/2023 11:56 AM Note Text: NST SUMMARY PROVIDER ASSESSMENT AND INTERPRETATION Chana De La O is a 22 year old female, , who is at 37w1d with an CHAN of 02/02/2023, by Ultrasound dating method. Indications for NST: IUGR Baseline: 130 Variability: Moderate Accelerations: Present 15 X 15 Decelerations: None Contractions: TOCO: None Interpretation: Reactive SIGNATURE: Stephen Pretty MD [facility] 01-13-2023 History of Presen t illness Narrative NST SUMMARY PROVIDER ASSESSMENT AND INTERPRETATION Chana De La O is a 22 year old female, , who is at 37w1d with an CHAN of 02/02/2023, by Ultrasound dating method. Indications for NST: IUGR Baseline: 130 Variability: Moderate Accelerations: Present 15 X 15 Decelerations: None Contractions: TOCO: None Interpretation: Reactive SIGNATURE: Stephen Pretty MD documented in this encounter [facility] 01-13-2023 Miscellaneous Notes Formattin g of this note might be different from the original. KJ - VB No. LOF No. CTXS No. Movement: present. Other c/o: No. Medication list reviewed. Physical Exam See Flow Sheet Gen: no accute distress, well appearing A/P 37w1d Estimated Date of Delivery: 02/02/23 IUGR - discussed recommendation for induction of labor and risk of demise. Patient declines IOL at this time but will consider scheduling Tuesday after her US Labor precautions reviewed, Kick counts reviewed. Stephen Pretty MD documented in this encounter [facility] 01-13-2023 Instructions Danitza Hunter MA - 01/13/2023 10:46 AM EST SEQUENTIAL SCREENINGS The [facility] offers sequential screenings for women who are interested in screenings for chromosomal abnormalities and certain defects during a . The sequential screen combines ultrasound and blood tests to determine the risk of chromosomal abnormalities, including Down's Syndrome (Trisomy 21) and Trisomy 18, as well as open neural tube defects including spina bifida. Ultrasound examination is performed between 11 weeks and 13 weeks gestational age. Blood tests are drawn after the ultrasound and again later in the between 15 and 21 weeks gestational age. Please let your physician know if you are interested in this testing. It will require an appointment with our cardiopulmonary technician. This is not an ultrasound performed by a physician in our office during a routine visit. SIGNS AND SYMPTOMS OF LABOR 1. Contractions every 10 minutes or more often 2. Clear, pink, or brownish fluid (water) leaking from vagina 3. Feeling that baby is pushing down, pressure 4. Low, dull backache 5. Cramps that feel like a period 6. Cramps with or without diarrhea If you notice any of the above symptoms, contact our office at [phone] and ask to speak with a nurse. After hours, you can call doctors registry at [phone] OR call [facility] at [phone] and ask to have the doctor mobile phone salesperson paged. If you consider this an emergency, dial or go to your nearest emergency department. NEED HELP? Are you dealing with a violent or abusive relationship? Are you a victim of rape or sexual assult? Call [facility] ([place]) 24 hour Crisis Hotline: 484.869.9213 or 776-658-1856. MANUAL Your Guide to a Healthy manual is now on-line. Visit [email or web address] to download your free copy documented in this encounter [facility] 01-11-2023 Miscellaneous Notes Formattin g of this note might be different from the original. noted and that is an option. Thanks. Mayito Granados MD Contacted pt with below message. Pt very angry and stated that she did not feel that this is a good reason for induction. Pt wanting to wait until her appointment on and further discuss at that time. Pt stated all this is the same as her previous and everything was just fine. Nadia Wilkins LPN Please let her know that I discussed the case with Dr. Mas. With the baby being on the small side and her abdominal pain induction at 37+ weeks is reasonable. Tuesday is full from a scheduling standpoint but is available. If she would like to come in today to sign induction consent I would like to get her scheduled. The next opening after from a L&D schedule is next Tue. b/c I k now Tuesday and Tuesday are full except for emergencies. Mayito Granados MD documented in this encounter [facility] 01-10-2023 Note HNO ID: [id number] Author: Mayito Granados MD Service: ? Author Type: Physician Type: Progress Notes Filed: 01/10/2023 10:44 AM Note Text: NST SUMMARY PROVIDER ASSESSMENT AND INTERPRETATION Chana De La O is a 22 year old female, , who is at 36w5d with an CHAN of 02/02/2023, by Ultrasound dating method. Indications for NST: IUGR Baseline: 135 Variability: Moderate Accelerations: Present 15 X 15 Decelerations: None Contractions: TOCO: None Interpretation: Category I and Reactive SIGNATURE: Mayito Granados MD [facility] 01-10-2023 History of Presen t illness Narrative NST SUMMARY PROVIDER ASSESSMENT AND INTERPRETATION Chana De La O is a 22 year old female, , who is at 36w5d with an CHAN of 02/02/2023, by Ultrasound dating method. Indications for NST: IUGR Baseline: 135 Variability: Moderate Accelerations: Present 15 X 15 Decelerations: None Contractions: TOCO: None Interpretation: Category I and Reactive SIGNATURE: Mayito Granados MD documented in this encounter [facility] 01-10-2023 Miscellaneous Notes Formattin g of this note might be different from the original. NST only Mayito Granados MD documented in this encounter [facility] 01-05-2023 Miscellaneous Notes Formattin g of this note might be different from the original. Chana De La O is a 22 year old female who presents at 36w0d for a routine visit. Just completed BPP 09/14 for IUGR. Awaiting final reading. Good movement. Denies headache, visual changes, chest pain, shortness of breath, vaginal bleeding, leakage of fluid, or dysuria. Feeling well, no complaints. Size less than dates. 0 TWG. PTL precautions reviewed. ASSESSMENT/PLAN: 1. 36 weeks gestation of - ICD9: V22.2, ICD10: Z3A.36 (primary diagnosis) 2. Poor growth affecting management of mother in third trimester, single or unspecified fetus - ICD9: 656.53, ICD10: O36.5930 3. Supervision of other high risk pregnancies, third trimester - ICD9: V23.89, ICD10: O09.893 4. Rh negative state in antepartum period - ICD9: 646.83, ICD10: O26.899, Z67.91 5. History of marijuana use - ICD9: 305.23, ICD10: F12.91 - URINE OB DIP B/O - Weekly BPP on Tuesday & NST on - GBS negative - Delivery plan? RTC in 1 week or sooner if needed. Danni Reynolds APRN.CNM documented in this encounter [facility] 01-05-2023 Trista Michaels LPN - 01/05/2023 2:41 PM EST SEQUENTIAL SCREENINGS The [facility] offers sequential screenings for women who are interested in screenings for chromosomal abnormalities and certain defects during a . The sequential screen combines ultrasound and blood tests to determine the risk of chromosomal abnormalities, including Down's Syndrome (Trisomy 21) and Trisomy 18, as well as open neural tube defects including spina bifida. Ultrasound examination is performed between 11 weeks and 13 weeks gestational age. Blood tests are drawn after the ultrasound and again later in the between 15 and 21 weeks gestational age. Please let your physician know if you are interested in this testing. It will require an appointment with our cardiopulmonary technician. This is not an ultrasound performed by a physician in our office during a routine visit. SIGNS AND SYMPTOMS OF LABOR 1. Contractions every 10 minutes or more often 2. Clear, pink, or brownish fluid (water) leaking from vagina 3. Feeling that baby is pushing down, pressure 4. Low, dull backache 5. Cramps that feel like a period 6. Cramps with or without diarrhea If you notice any of the above symptoms, contact our office at [phone] and ask to speak with a nurse. After hours, you can call doctors registry at [phone] OR call [facility] at [phone] and ask to have the doctor mobile phone salesperson paged. If you consider this an emergency, dial 10-08- or go to your nearest emergency department. NEED HELP? Are you dealing with a violent or abusive relationship? Are you a victim of rape or sexual assult? Call [facility] ([place]) 24 hour Crisis Hotline: 399.413.4986 or 195-671-3973. MANUAL Your Guide to a Healthy manual is now on-line. Visit [email or web address] to download your free copy documented in this encounter [facility] 12-31-2022 Note HNO ID: [id number] Author: Angeline Carranza MD Service: ? Author Type: Physician Type: Progress Notes Filed: 12/31/2022 4:03 PM Note Text: NST SUMMARY PROVIDER ASSESSMENT AND INTERPRETATION Chana De La O is a 22 year old female, , who is at 35w2d with an CHAN of 02/02/2023, by Ultrasound dating method. Indications for NST: IUGR Baseline: 140 Variability: Moderate Accelerations: Present 15 X 15 Decelerations: None Contractions: TOCO: None Interpretation: Category I and Reactive SIGNATURE: Angeline Del Castillo MD [facility] 12-31-2022 History of Presen t illness Narrative NST SUMMARY PROVIDER ASSESSMENT AND INTERPRETATION Chana De La O is a 22 year old female, , who is at 35w2d with an CHAN of 02/02/2023, by Ultrasound dating method. Indications for NST: IUGR Baseline: 140 Variability: Moderate Accelerations: Present 15 X 15 Decelerations: None Contractions: TOCO: None Interpretation: Category I and Reactive SIGNATURE: Angeline Del Castillo MD documented in this encounter [facility] 12-31-2022 Miscellaneous Notes Formattin g of this note might be different from the original. NST only. documented in this encounter [facility] 12-31-2022 Instructions Cindy Rick Ma - 12/31/2022 2:56 PM EST SEQUENTIAL SCREENINGS The [facility] offers sequential screenings for women who are interested in screenings for chromosomal abnormalities and certain defects during a . The sequential screen combines ultrasound and blood tests to determine the risk of chromosomal abnormalities, including Down's Syndrome (Trisomy 21) and Trisomy 18, as well as open neural tube defects including spina bifida. Ultrasound examination is performed between 11 weeks and 13 weeks gestational age. Blood tests are drawn after the ultrasound and again later in the between 15 and 21 weeks gestational age. Please let your physician know if you are interested in this testing. It will require an appointment with our cardiopulmonary technician. This is not an ultrasound performed by a physician in our office during a routine visit. SIGNS AND SYMPTOMS OF LABOR 1. Contractions every 10 minutes or more often 2. Clear, pink, or brownish fluid (water) leaking from vagina 3. Feeling that baby is pushing down, pressure 4. Low, dull backache 5. Cramps that feel like a period 6. Cramps with or without diarrhea If you notice any of the above symptoms, contact our office at [phone] and ask to speak with a nurse. After hours, you can call doctors registry at [phone] OR call [facility] at [phone] and ask to have the doctor mobile phone salesperson paged. If you consider this an emergency, dial 9-1-3 or go to your nearest emergency department. NEED HELP? Are you dealing with a violent or abusive relationship? Are you a victim of rape or sexual assult? Call [facility] [place] ([facility] 24 hour Crisis Hotline: 150.548.6613 or [phone]. MANUAL Your Guide to a Healthy manual is now on-line. Visit [email or web address] to download your free copy documented in this encounter [facility] documented as of this encounter (statuses as of 12/28/2022) [facility]11-21-2023 History of Past illness Narrative* Problem Noted Date Diagnosed Date Resolved Date growth restriction 12/28/2022 12/28/2022 Depression affecting pregnan cy in third trimester, antepartum 12/24/2022 12/26/2022 Hyperemesis gravidarum 07/14/2022 12/28/202212/28 Nausea and vomiting 06/18/2022 12/29/19 23 Overview: 11/15/2022atient is complaining of nausea and occasional vomiting in . Dietary considerations discussed . Advised patient to call/come in if she is unable to keep any food or fluids down in a 24-hour period. tkrn Intrauterine growth restrict ion (IUGR) affecting care of mother, third trimester, single gestation 06/10/2021 12/28/2022 Overview: Discussion regarding growth restriction: growth restriction (FGR) is defined as an estimated weight and/or abdominal circumference less than the 10 th%. FGR could be due to a maternal disorder (vascular disease, preeclampsia, chronic hypertension, SLE), a placental or umbilical cord issue (a small placenta, placental placental mosaicism, chronic placental abruption, and/or abnormal placental cord insertion), and or a disease (aneuploidy, a structural anomaly, TORCH infection, a genetic syndrome, and/or a metabolic disorder). Our goal is to confirm the diagnosis. Monitor the status, and make a plan for timing and mode of delivery. Testing done includes: aneuploidy screening and invasive testing, TORCH infection serology, detailed US evaluation, and detailed genetic history and counseling. Monitoring includes Ultrasound for growth, biophysical profile, and evaluation of the umbilical artery Dopplers. Ultrasound report: 1. Single, living intrauterine at 31w 5d by clinical CHAN. 2. Intrauterine growth restriction, estimated weight 1503 g (23%) and the AC is at the 5%. 4. Amniotic fluid volume is normal. The DEBBI measures 6.4 cm. 5. Normal appearing posterior placenta. 6. Visualized anatomy appears normal, with limitations as noted. 7. UA Doppler shows high S/D ratio. 8. Reassuring BPP = 8/8 9. Normal female genitalia. [facility] Plan of Care Diagnosis: Early growth restriction (AC <10th percentile). Declined aneuploidy screening, maternal infectious serologies, and invasive testing. Plan: 1. Continued obstetrical care with her primary commercial parts professional is recommended. 2. Follow up q2 weeks to evaluate biometric parameters and q4 weeks to evaluate anatomy. These are planned with the [facility]. 3. surveillance as follows: twice weekly BPP with weekly UA Doppler assessment. These are planned with the [facility](BPP)/ her primary commercial parts professional(BPP or NST). 4. consultation with Neonatology has can be arranged. 5. With the information available to us at this time, delivery may be appropriate at your local institution. 6. 6. Timing of delivery will be based on growth and UA Doppler assessment. Consider delivery at 37 to 39 weeks based on EFW%, testing, and Dopplers. EFW < 3rd% and or high UA > 95%deliver at 37 weeks EFW 3 to 10 th%, deliver at 38 to 39 weeks AEDF or REDF, admit to hospital and evaluate for earlier delivery 7. Mode of delivery is based on the usual obstetrical indications. 8. Placenta to pathology. 9. Pediatric provider to determine if additional evaluations are recommended prior to discharge. 10. Other follow up as clinically indicated. documented as of this encounter (statuses as of 12/28/2022) [facility] History of Past illness Narrative* Problem Noted Date Diagnosed Date Resolved Date growth restriction 12/28/2022 12/28/2022 Depression affecting pregnan cy in third trimester, antepartum 12/24/2022 12/26/2022 Hyperemesis gravidarum 07/14/2022 12/28/202212/28 Nausea and vomiting 06/18/2022 12/29/19 23 Overview: 11/15/2022atient is complaining of nausea and occasional vomiting in . Dietary considerations discussed . Advised patient to call/come in if she is unable to keep any food or fluids down in a 24-hour period. tkrn Intrauterine growth restrict ion (IUGR) affecting care of mother, third trimester, single gestation 06/10/2021 12/28/2022 Overview: Discussion regarding growth restriction: growth restriction (FGR) is defined as an estimated weight and/or abdominal circumference less than the 10 th%. FGR could be due to a maternal disorder (vascular disease, preeclampsia, chronic hypertension, SLE), a placental or umbilical cord issue (a small placenta, placental placental mosaicism, chronic placental abruption, and/or abnormal placental cord insertion), and or a disease (aneuploidy, a structural anomaly, TORCH infection, a genetic syndrome, and/or a metabolic disorder). Our goal is to confirm the diagnosis. Monitor the status, and make a plan for timing and mode of delivery. Testing done includes: aneuploidy screening and invasive testing, TORCH infection serology, detailed US evaluation, and detailed genetic history and counseling. Monitoring includes Ultrasound for growth, biophysical profile, and evaluation of the umbilical artery Dopplers. Ultrasound report: 1. Single, living intrauterine at 31w 5d by clinical CHAN. 2. Intrauterine growth restriction, estimated weight 1503 g (23%) and the AC is at the 5%. 4. Amniotic fluid volume is normal. The DEBBI measures 6.4 cm. 5. Normal appearing posterior placenta. 6. Visualized anatomy appears normal, with limitations as noted. 7. UA Doppler shows high S/D ratio. 8. Reassuring BPP = 8/8 9. Normal female genitalia. [facility] Plan of Care Diagnosis: Early growth restriction (AC <10th percentile). Declined aneuploidy screening, maternal infectious serologies, and invasive testing. Plan: 1. Continued obstetrical care with her primary commercial parts professional is recommended. 2. Follow up q2 weeks to evaluate biometric parameters and q4 weeks to evaluate anatomy. These are planned with the [facility]. 3. surveillance as follows: twice weekly BPP with weekly UA Doppler assessment. These are planned with the [facility](BPP)/ her primary commercial parts professional(BPP or NST). 4. consultation with Neonatology has can be arranged. 5. With the information available to us at this time, delivery may be appropriate at your local institution. 6. 6. Timing of delivery will be based on growth and UA Doppler assessment. Consider delivery at 37 to 39 weeks based on EFW%, testing, and Dopplers. EFW < 3rd% and or high UA > 95%deliver at 37 weeks EFW 3 to 10 th%, deliver at 38 to 39 weeks AEDF or REDF, admit to hospital and evaluate for earlier delivery 7. Mode of delivery is based on the usual obstetrical indications. 8. Placenta to pathology. 9. Pediatric provider to determine if additional evaluations are recommended prior to discharge. 10. Other follow up as clinically indicated. documented as of this encounter (statuses as of 12/31/2022) [facility] History of Past illness Narrative* Problem Noted Date Diagnosed Date Resolved Date growth restriction 12/28/2022 12/28/2022 Depression affecting pregnan cy in third trimester, antepartum 12/24/2022 12/26/2022 Hyperemesis gravidarum 07/14/2022 12/28/202212/28 Nausea and vomiting 06/18/2022 12/29/19 23 Overview: 11/15/2022atient is complaining of nausea and occasional vomiting in . Dietary considerations discussed . Advised patient to call/come in if she is unable to keep any food or fluids down in a 24-hour period. tkrn Intrauterine growth restrict ion (IUGR) affecting care of mother, third trimester, single gestation 06/10/2021 12/28/2022 Overview: Discussion regarding growth restriction: growth restriction (FGR) is defined as an estimated weight and/or abdominal circumference less than the 10 th%. FGR could be due to a maternal disorder (vascular disease, preeclampsia, chronic hypertension, SLE), a placental or umbilical cord issue (a small placenta, placental placental mosaicism, chronic placental abruption, and/or abnormal placental cord insertion), and or a disease (aneuploidy, a structural anomaly, TORCH infection, a genetic syndrome, and/or a metabolic disorder). Our goal is to confirm the diagnosis. Monitor the status, and make a plan for timing and mode of delivery. Testing done includes: aneuploidy screening and invasive testing, TORCH infection serology, detailed US evaluation, and detailed genetic history and counseling. Monitoring includes Ultrasound for growth, biophysical profile, and evaluation of the umbilical artery Dopplers. Ultrasound report: 1. Single, living intrauterine at 31w 5d by clinical CHAN. 2. Intrauterine growth restriction, estimated weight 1503 g (23%) and the AC is at the 5%. 4. Amniotic fluid volume is normal. The DEBBI measures 6.4 cm. 5. Normal appearing posterior placenta. 6. Visualized anatomy appears normal, with limitations as noted. 7. UA Doppler shows high S/D ratio. 8. Reassuring BPP = 8/8 9. Normal female genitalia. [facility] Plan of Care Diagnosis: Early growth restriction (AC <10th percentile). Declined aneuploidy screening, maternal infectious serologies, and invasive testing. Plan: 1. Continued obstetrical care with her primary commercial parts professional is recommended. 2. Follow up q2 weeks to evaluate biometric parameters and q4 weeks to evaluate anatomy. These are planned with the [facility]. 3. surveillance as follows: twice weekly BPP with weekly UA Doppler assessment. These are planned with the [facility](P)/ her primary commercial parts professional(BPP or NST). 4. consultation with Neonatology has can be arranged. 5. With the information available to us at this time, delivery may be appropriate at your local institution. 6. 6. Timing of delivery will be based on growth and UA Doppler assessment. Consider delivery at 37 to 39 weeks based on EFW%, testing, and Dopplers. EFW < 3rd% and or high UA > 95%deliver at 37 weeks EFW 3 to 10 th%, deliver at 38 to 39 weeks AEDF or REDF, admit to hospital and evaluate for earlier delivery 7. Mode of delivery is based on the usual obstetrical indications. 8. Placenta to pathology. 9. Pediatric provider to determine if additional evaluations are recommended prior to discharge. 10. Other follow up as clinically indicated. documented as of this encounter (statuses as of 01/06/2023) [facility] History of Past illness Narrative* Problem Noted Date Diagnosed Date Resolved Date growth restriction 12/28/2022 12/28/2022 Depression affecting pregnan cy in third trimester, antepartum 12/24/2022 12/26/2022 Hyperemesis gravidarum 07/14/2022 12/28/202212/28 Nausea and vomiting 06/18/2022 12/29/19 Overview: 11/15/2022atient is complaining of nausea and occasional vomiting in . Dietary considerations discussed . Advised patient to call/come in if she is unable to keep any food or fluids down in a 24-hour period. tkrn Intrauterine growth restrict ion (IUGR) affecting care of mother, third trimester, single gestation 06/10/2021 12/28/2022 Overview: Discussion regarding growth restriction: growth restriction (FGR) is defined as an estimated weight and/or abdominal circumference less than the 10 th%. FGR could be due to a maternal disorder (vascular disease, preeclampsia, chronic hypertension, SLE), a placental or umbilical cord issue (a small placenta, placental placental mosaicism, chronic placental abruption, and/or abnormal placental cord insertion), and or a disease (aneuploidy, a structural anomaly, TORCH infection, a genetic syndrome, and/or a metabolic disorder). Our goal is to confirm the diagnosis. Monitor the status, and make a plan for timing and mode of delivery. Testing done includes: aneuploidy screening and invasive testing, TORCH infection serology, detailed US evaluation, and detailed genetic history and counseling. Monitoring includes Ultrasound for growth, biophysical profile, and evaluation of the umbilical artery Dopplers. Ultrasound report: 1. Single, living intrauterine at 31w 5d by clinical CHAN. 2. Intrauterine growth restriction, estimated weight 1503 g (23%) and the AC is at the 5%. 4. Amniotic fluid volume is normal. The DEBBI measures 6.4 cm. 5. Normal appearing posterior placenta. 6. Visualized anatomy appears normal, with limitations as noted. 7. UA Doppler shows high S/D ratio. 8. Reassuring BPP = 8/8 9. Normal female genitalia. [facility] Plan of Care Diagnosis: Early growth restriction (AC <10th percentile). Declined aneuploidy screening, maternal infectious serologies, and invasive testing. Plan: 1. Continued obstetrical care with her primary commercial parts professional is recommended. 2. Follow up q2 weeks to evaluate biometric parameters and q4 weeks to evaluate anatomy. These are planned with the [facility]. 3. surveillance as follows: twice weekly BPP with weekly UA Doppler assessment. These are planned with the [facility](BPP)/ her primary commercial parts professional(BPP or NST). 4. consultation with Neonatology has can be arranged. 5. With the information available to us at this time, delivery may be appropriate at your local institution. 6. 6. Timing of delivery will be based on growth and UA Doppler assessment. Consider delivery at 37 to 39 weeks based on EFW%, testing, and Dopplers. EFW < 3rd% and or high UA > 95%deliver at 37 weeks EFW 3 to 10 th%, deliver at 38 to 39 weeks AEDF or REDF, admit to hospital and evaluate for earlier delivery 7. Mode of delivery is based on the usual obstetrical indications. 8. Placenta to pathology. 9. Pediatric provider to determine if additional evaluations are recommended prior to discharge. 10. Other follow up as clinically indicated. documented as of this encounter (statuses as of 01/06/2023) [facility] History of Past illness Narrative* Problem Noted Date Diagnosed Date Resolved Date growth restriction 12/28/2022 12/28/2022 Depression affecting pregnan cy in third trimester, antepartum 12/24/2022 12/26/2022 Hyperemesis gravidarum 07/14/2022 12/28/202212/28 Nausea and vomiting 06/18/2022 12/29/19 23 Overview: 11/15/2022atient is complaining of nausea and occasional vomiting in . Dietary considerations discussed . Advised patient to call/come in if she is unable to keep any food or fluids down in a 24-hour period. tkrn Intrauterine growth restrict ion (IUGR) affecting care of mother, third trimester, single gestation 06/10/2021 12/28/2022 Overview: Discussion regarding growth restriction: growth restriction (FGR) is defined as an estimated weight and/or abdominal circumference less than the 10 th%. FGR could be due to a maternal disorder (vascular disease, preeclampsia, chronic hypertension, SLE), a placental or umbilical cord issue (a small placenta, placental placental mosaicism, chronic placental abruption, and/or abnormal placental cord insertion), and or a disease (aneuploidy, a structural anomaly, TORCH infection, a genetic syndrome, and/or a metabolic disorder). Our goal is to confirm the diagnosis. Monitor the status, and make a plan for timing and mode of delivery. Testing done includes: aneuploidy screening and invasive testing, TORCH infection serology, detailed US evaluation, and detailed genetic history and counseling. Monitoring includes Ultrasound for growth, biophysical profile, and evaluation of the umbilical artery Dopplers. Ultrasound report: 1. Single, living intrauterine at 31w 5d by clinical CHAN. 2. Intrauterine growth restriction, estimated weight 1503 g (23%) and the AC is at the 5%. 4. Amniotic fluid volume is normal. The DEBBI measures 6.4 cm. 5. Normal appearing posterior placenta. 6. Visualized anatomy appears normal, with limitations as noted. 7. UA Doppler shows high S/D ratio. 8. Reassuring BPP = 8/8 9. Normal female genitalia. [facility] Plan of Care Diagnosis: Early growth restriction (AC <10th percentile). Declined aneuploidy screening, maternal infectious serologies, and invasive testing. Plan: 1. Continued obstetrical care with her primary commercial parts professional is recommended. 2. Follow up q2 weeks to evaluate biometric parameters and q4 weeks to evaluate anatomy. These are planned with the [facility]. 3. surveillance as follows: twice weekly BPP with weekly UA Doppler assessment. These are planned with the [facility](P)/ her primary commercial parts professional(BPP or NST). 4. consultation with Neonatology has can be arranged. 5. With the information available to us at this time, delivery may be appropriate at your local institution. 6. 6. Timing of delivery will be based on growth and UA Doppler assessment. Consider delivery at 37 to 39 weeks based on EFW%, testing, and Dopplers. EFW < 3rd% and or high UA > 95%deliver at 37 weeks EFW 3 to 10 th%, deliver at 38 to 39 weeks AEDF or REDF, admit to hospital and evaluate for earlier delivery 7. Mode of delivery is based on the usual obstetrical indications. 8. Placenta to pathology. 9. Pediatric provider to determine if additional evaluations are recommended prior to discharge. 10. Other follow up as clinically indicated. documented as of this encounter (statuses as of 01/10/2023) [facility] History of Past illness Narrative* Problem Noted Date Diagnosed Date Resolved Date growth restriction 12/28/2022 12/28/2022 Depression affecting pregnan cy in third trimester, antepartum 12/24/2022 12/26/2022 Hyperemesis gravidarum 07/14/2022 12/28/202212/28 Nausea and vomiting 06/18/2022 12/29/19 Overview: 11/15/2022atient is complaining of nausea and occasional vomiting in . Dietary considerations discussed . Advised patient to call/come in if she is unable to keep any food or fluids down in a 24-hour period. tkrn Intrauterine growth restrict ion (IUGR) affecting care of mother, third trimester, single gestation 06/10/2021 12/28/2022 Overview: Discussion regarding growth restriction: growth restriction (FGR) is defined as an estimated weight and/or abdominal circumference less than the 10 th%. FGR could be due to a maternal disorder (vascular disease, preeclampsia, chronic hypertension, SLE), a placental or umbilical cord issue (a small placenta, placental placental mosaicism, chronic placental abruption, and/or abnormal placental cord insertion), and or a disease (aneuploidy, a structural anomaly, TORCH infection, a genetic syndrome, and/or a metabolic disorder). Our goal is to confirm the diagnosis. Monitor the status, and make a plan for timing and mode of delivery. Testing done includes: aneuploidy screening and invasive testing, TORCH infection serology, detailed US evaluation, and detailed genetic history and counseling. Monitoring includes Ultrasound for growth, biophysical profile, and evaluation of the umbilical artery Dopplers. Ultrasound report: 1. Single, living intrauterine at 31w 5d by clinical CHAN. 2. Intrauterine growth restriction, estimated weight 1503 g (23%) and the AC is at the 5%. 4. Amniotic fluid volume is normal. The DEBBI measures 6.4 cm. 5. Normal appearing posterior placenta. 6. Visualized anatomy appears normal, with limitations as noted. 7. UA Doppler shows high S/D ratio. 8. Reassuring BPP = 8/8 9. Normal female genitalia. [facility] Plan of Care Diagnosis: Early growth restriction (AC <10th percentile). Declined aneuploidy screening, maternal infectious serologies, and invasive testing. Plan: 1. Continued obstetrical care with her primary commercial parts professional is recommended. 2. Follow up q2 weeks to evaluate biometric parameters and q4 weeks to evaluate anatomy. These are planned with the [facility]. 3. surveillance as follows: twice weekly BPP with weekly UA Doppler assessment. These are planned with the [facility](BPP)/ her primary commercial parts professional(BPP or NST). 4. consultation with Neonatology has can be arranged. 5. With the information available to us at this time, delivery may be appropriate at your local institution. 6. 6. Timing of delivery will be based on growth and UA Doppler assessment. Consider delivery at 37 to 39 weeks based on EFW%, testing, and Dopplers. EFW < 3rd% and or high UA > 95%deliver at 37 weeks EFW 3 to 10 th%, deliver at 38 to 39 weeks AEDF or REDF, admit to hospital and evaluate for earlier delivery 7. Mode of delivery is based on the usual obstetrical indications. 8. Placenta to pathology. 9. Pediatric provider to determine if additional evaluations are recommended prior to discharge. 10. Other follow up as clinically indicated. documented as of this encounter (statuses as of 01/11/2023) [facility] History of Past illness Narrative* Problem Noted Date Diagnosed Date Resolved Date growth restriction 12/28/2022 12/28/2022 Depression affecting pregnan cy in third trimester, antepartum 12/24/2022 12/26/2022 Hyperemesis gravidarum 07/14/2022 12/28/202212/28 Nausea and vomiting 06/18/2022 12/29/19 23 Overview: 11/15/2022atient is complaining of nausea and occasional vomiting in . Dietary considerations discussed . Advised patient to call/come in if she is unable to keep any food or fluids down in a 24-hour period. tkrn Intrauterine growth restrict ion (IUGR) affecting care of mother, third trimester, single gestation 06/10/2021 12/28/2022 Overview: Discussion regarding growth restriction: growth restriction (FGR) is defined as an estimated weight and/or abdominal circumference less than the 10 th%. FGR could be due to a maternal disorder (vascular disease, preeclampsia, chronic hypertension, SLE), a placental or umbilical cord issue (a small placenta, placental placental mosaicism, chronic placental abruption, and/or abnormal placental cord insertion), and or a disease (aneuploidy, a structural anomaly, TORCH infection, a genetic syndrome, and/or a metabolic disorder). Our goal is to confirm the diagnosis. Monitor the status, and make a plan for timing and mode of delivery. Testing done includes: aneuploidy screening and invasive testing, TORCH infection serology, detailed US evaluation, and detailed genetic history and counseling. Monitoring includes Ultrasound for growth, biophysical profile, and evaluation of the umbilical artery Dopplers. Ultrasound report: 1. Single, living intrauterine at 31w 5d by clinical CHAN. 2. Intrauterine growth restriction, estimated weight 1503 g (23%) and the AC is at the 5%. 4. Amniotic fluid volume is normal. The DEBBI measures 6.4 cm. 5. Normal appearing posterior placenta. 6. Visualized anatomy appears normal, with limitations as noted. 7. UA Doppler shows high S/D ratio. 8. Reassuring BPP = 8/8 9. Normal female genitalia. [facility] Plan of Care Diagnosis: Early growth restriction (AC <10th percentile). Declined aneuploidy screening, maternal infectious serologies, and invasive testing. Plan: 1. Continued obstetrical care with her primary commercial parts professional is recommended. 2. Follow up q2 weeks to evaluate biometric parameters and q4 weeks to evaluate anatomy. These are planned with the [facility]. 3. surveillance as follows: twice weekly BPP with weekly UA Doppler assessment. These are planned with the [facility](BPP)/ her primary commercial parts professional(BPP or NST). 4. consultation with Neonatology has can be arranged. 5. With the information available to us at this time, delivery may be appropriate at your local institution. 6. 6. Timing of delivery will be based on growth and UA Doppler assessment. Consider delivery at 37 to 39 weeks based on EFW%, testing, and Dopplers. EFW < 3rd% and or high UA > 95%deliver at 37 weeks EFW 3 to 10 th%, deliver at 38 to 39 weeks AEDF or REDF, admit to hospital and evaluate for earlier delivery 7. Mode of delivery is based on the usual obstetrical indications. 8. Placenta to pathology. 9. Pediatric provider to determine if additional evaluations are recommended prior to discharge. 10. Other follow up as clinically indicated. documented as of this encounter (statuses as of 01/11/2023) [facility]11-21-2023 History of Past illness Narrative* Problem Noted Date Diagnosed Date Resolved Date growth restriction 12/28/2022 12/28/2022 Depression affecting pregnan cy in third trimester, antepartum 12/24/2022 12/26/2022 Hyperemesis gravidarum 07/14/2022 12/28/202212/28 Nausea and vomiting 06/18/2022 12/29/19 23 Overview: 11/15/2022atient is complaining of nausea and occasional vomiting in . Dietary considerations discussed . Advised patient to call/come in if she is unable to keep any food or fluids down in a 24-hour period. tkrn Intrauterine growth restrict ion (IUGR) affecting care of mother, third trimester, single gestation 06/10/2021 12/28/2022 Overview: Discussion regarding growth restriction: growth restriction (FGR) is defined as an estimated weight and/or abdominal circumference less than the 10 th%. FGR could be due to a maternal disorder (vascular disease, preeclampsia, chronic hypertension, SLE), a placental or umbilical cord issue (a small placenta, placental placental mosaicism, chronic placental abruption, and/or abnormal placental cord insertion), and or a disease (aneuploidy, a structural anomaly, TORCH infection, a genetic syndrome, and/or a metabolic disorder). Our goal is to confirm the diagnosis. Monitor the status, and make a plan for timing and mode of delivery. Testing done includes: aneuploidy screening and invasive testing, TORCH infection serology, detailed US evaluation, and detailed genetic history and counseling. Monitoring includes Ultrasound for growth, biophysical profile, and evaluation of the umbilical artery Dopplers. Ultrasound report: 1. Single, living intrauterine at 31w 5d by clinical CHAN. 2. Intrauterine growth restriction, estimated weight 1503 g (23%) and the AC is at the 5%. 4. Amniotic fluid volume is normal. The DEBBI measures 6.4 cm. 5. Normal appearing posterior placenta. 6. Visualized anatomy appears normal, with limitations as noted. 7. UA Doppler shows high S/D ratio. 8. Reassuring BPP = 8/8 9. Normal female genitalia. Treatment [facility] Plan of Care Diagnosis: Early growth restriction (AC <10th percentile). Declined aneuploidy screening, maternal infectious serologies, and invasive testing. Plan: 1. Continued obstetrical care with her primary commercial parts professional is recommended. 2. Follow up q2 weeks to evaluate biometric parameters and q4 weeks to evaluate anatomy. These are planned with the Treatment Center. 3. surveillance as follows: twice weekly BPP with weekly UA Doppler assessment. These are planned with the Treatment Center(BPP)/ her primary commercial parts professional(BPP or NST). 4. consultation with Neonatology has can be arranged. 5. With the information available to us at this time, delivery may be appropriate at your local institution. 6. 6. Timing of delivery will be based on growth and UA Doppler assessment. Consider delivery at 37 to 39 weeks based on EFW%, testing, and Dopplers. EFW < 3rd% and or high UA > 95%deliver at 37 weeks EFW 3 to 10 th%, deliver at 38 to 39 weeks AEDF or REDF, admit to hospital and evaluate for earlier delivery 7. Mode of delivery is based on the usual obstetrical indications. 8. Placenta to pathology. 9. Pediatric provider to determine if additional evaluations are recommended prior to discharge. 10. Other follow up as clinically indicated. documented as of this encounter (statuses as of 01/13/2023) [facility]11-[facility] History of Past illness Narrative* Problem Noted Date Diagnosed Date Resolved Date growth restriction 12/28/2022 12/28/2022 Depression affecting pregnan cy in third trimester, antepartum 12/24/2022 12/26/2022 Hyperemesis gravidarum 07/14/2022 12/28/202212/28 Nausea and vomiting 06/18/2022 12/29/19 23 Overview: 11/15/2022atient is complaining of nausea and occasional vomiting in . Dietary considerations discussed . Advised patient to call/come in if she is unable to keep any food or fluids down in a 24-hour period. tkrn Intrauterine growth restrict ion (IUGR) affecting care of mother, third trimester, single gestation 06/10/2021 12/28/2022 Overview: Discussion regarding growth restriction: growth restriction (FGR) is defined as an estimated weight and/or abdominal circumference less than the 10 th%. FGR could be due to a maternal disorder (vascular disease, preeclampsia, chronic hypertension, SLE), a placental or umbilical cord issue (a small placenta, placental placental mosaicism, chronic placental abruption, and/or abnormal placental cord insertion), and or a disease (aneuploidy, a structural anomaly, TORCH infection, a genetic syndrome, and/or a metabolic disorder). Our goal is to confirm the diagnosis. Monitor the status, and make a plan for timing and mode of delivery. Testing done includes: aneuploidy screening and invasive testing, TORCH infection serology, detailed US evaluation, and detailed genetic history and counseling. Monitoring includes Ultrasound for growth, biophysical profile, and evaluation of the umbilical artery Dopplers. Ultrasound report: 1. Single, living intrauterine at 31w 5d by clinical CHAN. 2. Intrauterine growth restriction, estimated weight 1503 g (23%) and the AC is at the 5%. 4. Amniotic fluid volume is normal. The DEBBI measures 6.4 cm. 5. Normal appearing posterior placenta. 6. Visualized anatomy appears normal, with limitations as noted. 7. UA Doppler shows high S/D ratio. 8. Reassuring BPP = 8/8 9. Normal female genitalia. Treatment Center Plan of Care Diagnosis: Early growth restriction (AC <10th percentile). Declined aneuploidy screening, maternal infectious serologies, and invasive testing. Plan: 1. Continued obstetrical care with her primary commercial parts professional is recommended. 2. Follow up q2 weeks to evaluate biometric parameters and q4 weeks to evaluate anatomy. These are planned with the Treatment Center. 3. surveillance as follows: twice weekly BPP with weekly UA Doppler assessment. These are planned with the Treatment Center(BPP)/ her primary commercial parts professional(BPP or NST). 4. consultation with Neonatology has can be arranged. 5. With the information available to us at this time, delivery may be appropriate at your local institution. 6. 6. Timing of delivery will be based on growth and UA Doppler assessment. Consider delivery at 37 to 39 weeks based on EFW%, testing, and Dopplers. EFW < 3rd% and or high UA > 95%deliver at 37 weeks EFW 3 to 10 th%, deliver at 38 to 39 weeks AEDF or REDF, admit to hospital and evaluate for earlier delivery 7. Mode of delivery is based on the usual obstetrical indications. 8. Placenta to pathology. 9. Pediatric provider to determine if additional evaluations are recommended prior to discharge. 10. Other follow up as clinically indicated. documented as of this encounter (statuses as of 01/18/2023) [facility]11-[facility]-20[facility] History of Past illness Narrative* Problem Noted Date Diagnosed Date Resolved Date growth restriction 12/28/2022 12/28/2022 Depression affecting pregnan cy in third trimester, antepartum 12/24/2022 12/26/2022 Hyperemesis gravidarum 07/14/2022 12/28/202212/28 Nausea and vomiting 06/18/2022 12/29/19 Overview: 11/15/2022atient is complaining of nausea and occasional vomiting in . Dietary considerations discussed . Advised patient to call/come in if she is unable to keep any food or fluids down in a 24-hour period. tkrn Intrauterine growth restrict ion (IUGR) affecting care of mother, third trimester, single gestation 06/10/2021 12/28/2022 Overview: Discussion regarding growth restriction: growth restriction (FGR) is defined as an estimated weight and/or abdominal circumference less than the 10 th%. FGR could be due to a maternal disorder (vascular disease, preeclampsia, chronic hypertension, SLE), a placental or umbilical cord issue (a small placenta, placental placental mosaicism, chronic placental abruption, and/or abnormal placental cord insertion), and or a disease (aneuploidy, a structural anomaly, TORCH infection, a genetic syndrome, and/or a metabolic disorder). Our goal is to confirm the diagnosis. Monitor the status, and make a plan for timing and mode of delivery. Testing done includes: aneuploidy screening and invasive testing, TORCH infection serology, detailed US evaluation, and detailed genetic history and counseling. Monitoring includes Ultrasound for growth, biophysical profile, and evaluation of the umbilical artery Dopplers. Ultrasound report: 1. Single, living intrauterine at 31w 5d by clinical CHAN. 2. Intrauterine growth restriction, estimated weight 1503 g (23%) and the AC is at the 5%. 4. Amniotic fluid volume is normal. The DEBBI measures 6.4 cm. 5. Normal appearing posterior placenta. 6. Visualized anatomy appears normal, with limitations as noted. 7. UA Doppler shows high S/D ratio. 8. Reassuring BPP = 8/8 9. Normal female genitalia. Treatment Center Plan of Care Diagnosis: Early growth restriction (AC <10th percentile). Declined aneuploidy screening, maternal infectious serologies, and invasive testing. Plan: 1. Continued obstetrical care with her primary commercial parts professional is recommended. 2. Follow up q2 weeks to evaluate biometric parameters and q4 weeks to evaluate anatomy. These are planned with the Treatment Center. 3. surveillance as follows: twice weekly BPP with weekly UA Doppler assessment. These are planned with the Treatment Center(BPP)/ her primary commercial parts professional(BPP or NST). 4. consultation with Neonatology has can be arranged. 5. With the information available to us at this time, delivery may be appropriate at your local institution. 6. 6. Timing of delivery will be based on growth and UA Doppler assessment. Consider delivery at 37 to 39 weeks based on EFW%, testing, and Dopplers. EFW < 3rd% and or high UA > 95%deliver at 37 weeks EFW 3 to 10 th%, deliver at 38 to 39 weeks AEDF or REDF, admit to hospital and evaluate for earlier delivery 7. Mode of delivery is based on the usual obstetrical indications. 8. Placenta to pathology. 9. Pediatric provider to determine if additional evaluations are recommended prior to discharge. 10. Other follow up as clinically indicated. documented as of this encounter (statuses as of 01/19/2023) [facility]11-21-2023 NoteHNO ID: [id number] Author: Rudolph Ralph MD Service: ? Author Type: Physician Type: Progress Notes Filed: 12/28/2022 10:29 AM Note Text: OBSTETRICS MONITORING ASSESSMENT IUGR NST Interpretation: Reactive FHR Category: Cat 1 Disposition: Home PROVIDER INTERPRETATION: Category I and Reactive I personally reviewed the heart rate tracing. The FHR baseline was in the normal range. The NST was reactive without evidence of decelerations. At least 2 accelerations of 15 beats lasting for 15 seconds are noted in a 30 minute period. Regular uterine activity was not noted. IMPRESSION: Reactive NST. Rudolph Ralph MD SIGNATURE: Rudolph Ralph MD PATIENT NAME: Chana De La O DATE: December 28, 2022 TIME: 10:28 [facility]11-21-2023 NoteHNO ID: [id number] Author: Ansley Ibrahim APRN.CNM Service: ? Author Type: Soda Jerker Type: Progress Notes Filed: 12/28/2022 10:22 AM Note Text: BERTHA-NST SUMMARY PROVIDER ASSESSMENT AND INTERPRETATION Chana De La O is a 22 year old female, , who is at 34w6d with an CHAN of 02/02/2023, by Ultrasound dating method. Indications for NST: Obesity Baseline: 130 Variability: Moderate Accelerations: Present 15 X 15 Decelerations: Variable Contractions: TOCO: None Interpretation: Reactive SIGNATURE: Ansley Ibrahim APRN.[facility]11-21-2023 NoteHNO ID: [id number] Author: Rudolph Ralph MD Service: ? Author Type: Physician Type: Progress Notes Filed: 12/28/2022 10:28 AM Note Text: OBSTETRICS MATERNAL F ETAL MEDICINE CONSULT SERVICE DATE: December 28, 2022 SERVICE TIME: 919 REQUESTING PROVIDER: Danni Reynolds Communicated through EHR Subjective HISTORY OF THE PRESENT ILLNESS: The patient is a 22 year old female, , who is at 34w6d with an CHAN of 02/02/2023, by Ultrasound dating method. Patient is here for consult secondary to IUGR. Recently discharged from [facility] for vaginal bleeding in 3rd trimester. I reviewed her episode and scanned . HISTORY REVIEW PAST MEDICAL HISTORY Diagnosis Date ADHD (attention deficit hyperactivity disorder) Anemia Asthma Gastroparesis IBS (irritable bowel syndrome) PCOS (polycystic ovarian syndrome) Placental abruption in third trimester 12/27/2022 Reactive airway disease inhaler use with URIs PAST SURGICAL HISTORY Procedure Laterality Date DANDC SUCTION 08/31/2021 Retained POC after 08/11/21 vaginal delivery REMOVAL GALLBLADDER REMOVE TONSILS/ADENOIDS,12+ Y/O 2018 FAMILY HISTORY Problem Relation Age of Onset No Known Problems Mother Diabetes Father No Known Problems Sister Breast Cancer Maternal Grandmother Obstructive Sleep Apnea Maternal Grandfather Diabetes Paternal Grandfather No Known Problems Half-brother No Known Problems Daughter Social History Tobacco Use Smoking status: Former Years: 8 Types: Cigarettes Quit date: 11/08/2022 Years since quittin.1 Passive exposure: Past Smokeless tobacco: Never Tobacco comments: vape Vaping Use Vaping Use: Some days Substances: Nicotine Substance Use Topics Alcohol use: Never Drug use: Not Currently Types: Marijuana Obstetric History T1 L1 SAB0 IAB0 Ectopic0 Multiple0 Live Births1 Name of Baby 1: [place] Date: 08/11/21 GA: 40w4d Delivery: Vaginal, Spontaneous Apgar1: 9 Apgar5: 9 Living: Living Name of Baby 2: Not recorded Date: Not recorded GA: Not recorded Delivery: Not recorded Apgar1: Not recorded Apgar5: Not recorded Living: Not recorded Active Non-Hospital Problems Diagnosis Date Noted Attention deficit hyperactivity disorder (ADHD) 12/28/2022 Placental abruption in third trimester 12/27/2022 Overview Note: Admitted Dec 2022 for vaginal bleeding [facility] Assessment AND Plan Note: Admitted Dec 2022 for vaginal bleeding [facility] Hosp 4 days with reassuring testing in setting of IUGR. Testing reassuring with resolution. No indication for delivery and discharged home. Vaginal bleeding 12/23/2022 Overview Note: Upon admission 12/23 - Large gush of vaginal bleeding soaking through her clothes at 11 AM 12/23 - SSE with 2 cc dark red blood in the vagina on admission - Closed appearing cervix - irregular contractions upon admission, not feeling them and not currently osman - FHT Cat I - Denies vaginal bleeding or abdominal pain - 12/23: Hgb 11.5, fibrinogen 516, PT/PTT wnl - Pad counts ordered, no bleeding Mild intermittent asthma 12/23/2022 Overview Note: - Albuterol prn 34 weeks gestation of 12/23/2022 Overview Note: - s/p BMZ 12/23- - Regular Diet - NST BID - Cephalic - GBS negative Poor growth affecting management of mother in third trimester 12/23/2022 Overview Note: - Per records and patient but ultrasound not in paper records on transfer - Plan for growth this morning Patient prior concerning for IUGR. Delivered at 40 weeks with weight of 2920 which is 8% 12/24/2022 IUGR based on 3%. Plan 1. Repeat growth every 3rd week. 2. Weekly NST 3. Weekly BPP 4. Delivery if < 3% at 37 weeks recommended. 5. Delivery at 39 weeks if <10% and >3% Assessment AND Plan Note: Patient prior concerning for IUGR. Delivered at 40 weeks with weight of 2920 which is 8%. Patient voiced concern about setting delivery plan. Feels prior had growth spurt at the end. Based on percentile baby was below the 10%. No developmental delays. 12/24/2022 IUGR based on 3%. Today BPP 6/8 so NST is ordered. Plan 1. Repeat growth every 3rd week. 2. Weekly NST 3. Weekly BPP 4. Delivery if < 3% at 37 weeks recommended. 5. Delivery at 39 weeks if <10% and >3% Rh negative state in antepartum period 11/22/2022 Overview Note: - S/p rhogam on 12/23 with care elsewhere, antepartum 11/15/2022 Overview Note: - Transfer from [facility] to [place]. records added by [place] Gastroparesis 11/15/2022 Overview Note: - Diagnosed with gastroparesis in September 28 after gallbladder surgery. - Sees GI - Managed with diet alterations. No medications History of depression 11/15/2022 Overview Note: - Hx of Suicidal attempt as a teenager - Denies any history of depression - No meds currently - Mood stable, no SI/HI Engages in mady (more content not included)...[facility] 12-28-2022 History of Present illness Narrative* Rudolph Ralph MD - 12/28/2022 10:28 AM EST OBSTETRICS MONITORING ASSESSMENT IUGR NST Interpretation: Reactive FHR Category: Cat 1 Disposition: Home PROVIDER INTERPRETATION: Category I and Reactive I personally reviewed the heart rate tracing. The FHR baseline was in the normal range. The NST was reactive without evidence of decelerations. At least 2 accelerations of 15 beats lasting for 15 seconds are noted in a 30 minute period. Regular uterine activity was not noted. IMPRESSION: Reactive NST. Rudolph Ralph MD SIGNATURE: Rudolph Ralph MD PATIENT NAME: Chana De La O DATE: December 28, 2022 TIME: 10:28 AM * Rudolph Ralph MD - 12/28/2022 9:19 AM EST OBSTETRICS MATERNAL F ETAL MEDICINE CONSULT SERVICE DATE: December 28, 2022 SERVICE TIME: 919 REQUESTING PROVIDER: Danni Reynolds Communicated through EHR Subjective HISTORY OF THE PRESENT ILLNESS: The patient is a 22 year old female, , who is at 34w6d with an CHAN of 02/02/2023, by Ultrasound dating method. Patient is here for consult secondary to IUGR. Recently discharged from [facility] for vaginal bleeding in 3rd trimester. I reviewed her episode and scanned . HISTORY REVIEW PAST MEDICAL HISTORY Diagnosis Date ADHD (attention deficit hyperactivity disorder) Anemia Asthma Gastroparesis IBS (irritable bowel syndrome) PCOS (polycystic ovarian syndrome) Placental abruption in third trimester 12/27/2022 Reactive airway disease inhaler use with URIs PAST SURGICAL HISTORY Procedure Laterality Date D&C SUCTION 08/31/2021 Retained POC after 08/11/21 vaginal delivery REMOVAL GALLBLADDER REMOVE TONSILS/ADENOIDS,12+ Y/O 2018 FAMILY HISTORY Problem Relation Age of Onset No Known Problems Mother Diabetes Father No Known Problems Sister Breast Cancer Maternal Grandmother Obstructive Sleep Apnea Maternal Grandfather Diabetes Paternal Grandfather No Known Problems Half-brother No Known Problems Daughter Social History Tobacco Use Smoking status: Former Years: 8 Types: Cigarettes Quit date: 11/08/2022 Years since quittin.1 Passive exposure: Past Smokeless tobacco: Never Tobacco comments: vape Vaping Use Vaping Use: Some days Substances: Nicotine Substance Use Topics Alcohol use: Never Drug use: Not Currently Types: Marijuana Obstetric History T1 L1 SAB0 IAB0 Ectopic0 Multiple0 Live Births1 Name of Baby 1: [place] Date: 08/11/21 GA: 40w4d Delivery: Vaginal, Spontaneous Apgar1: 9 Apgar5: 9 Living: Living Name of Baby 2: Not recorded Date: Not recorded GA: Not recorded Delivery: Not recorded Apgar1: Not recorded Apgar5: Not recorded Living: Not recorded Active Non-Hospital Problems Diagnosis Date Noted Attention deficit hyperactivity disorder (ADHD) 12/28/2022 Placental abruption in third trimester 12/27/2022 Overview Note: Admitted Dec 2022 for vaginal bleeding [facility] Assessment & Plan Note: Admitted Dec 2022 for vaginal bleeding [facility] Hosp 4 days with reassuring testing in setting of IUGR. Testing reassuring with resolution. No indication for delivery and discharged home. Vaginal bleeding 12/23/2022 Overview Note: Upon admission 12/23 - Large gush of vaginal bleeding soaking through her clothes at 11 AM 12/23 - SSE with 2 cc dark red blood in the vagina on admission - Closed appearing cervix - irregular contractions upon admission, not feeling them and not currently osman - FHT Cat I - Denies vaginal bleeding or abdominal pain - 12/23: Hgb 11.5, fibrinogen 516, PT/PTT wnl - Pad counts ordered, no bleeding Mild intermittent asthma 12/23/2022 Overview Note: - Albuterol prn 34 weeks gestation of 12/23/2022 Overview Note: - s/p BMZ - Regular Diet - NST BID - Cephalic - GBS negative Poor growth affecting management of mother in third trimester 12/23/2022 Overview Note: - Per records and patient but ultrasound not in paper records on transfer - Plan for growth this morning Patient prior concerning for IUGR. Delivered at 40 weeks with weight of 2920 which is 8% 12/24/2022 IUGR based on 3%. Plan 1. Repeat growth every 3rd week. 2. Weekly NST 3. Weekly BPP 4. Delivery if < 3% at 37 weeks recommended. 5. Delivery at 39 weeks if <10% and >3% Assessment & Plan Note: Patient prior concerning for IUGR. Delivered at 40 weeks with weight of 2920 which is 8%.Patient voiced concern about setting delivery plan. Feels prior had growth spurt at the end. Based on percentile baby was below the 10%. No developmental delays. 12/24/2022 IUGR based on 3%. Today BPP 6/8 so NST is ordered. Plan 1. Repeat growth every 3rd week. 2. Weekly NST 3. Weekly BPP 4. Delivery if < 3% at 37 weeks recommended. 5. Delivery at 39 weeks if <10% and >3% Rh negative state in antepartum period 11/22/2022 Overview Note: - S/p rhogam on 12/23 with care elsewhere, antepartum 11/15/2022 Overview Note: - Transfer from [facility] to [place]. records added by [place] Gastroparesis 11/15/2022 Overview Note: - Diagnosed with gastroparesis in September 28 after gallbladder surgery. - Sees GI - Managed with diet alterations. No medications History of depression 11/15/2022 Overview Note: - Hx of Suicidal attempt as a teenager - Denies any history of depression - No meds currently - Mood stable, no SI/HI Engages in nicotine containing substance vaping 11/15/2022 Overview Note: - Encouraged cessation History of marijuana use 11/15/2022 Overview Note: - Declined UDS Hyperemesis gravidarum 07/14/2022 Cannabis use disorder, mild, abuse 07/14/2022 Nausea and vomiting 06/18/2022 Overview Note: 11/15/2022atient is complaining of nausea and occasional vomiting in . Dietary considerations discussed . Advised patient to call/come in if she is unable to keep any food or fluids down in a 24-hour period. tkrn ALLERGIES Allergen Reactions Seasonal Allergies Cough, Other: See Comments, Itching PRIOR TO ADMISSION MEDICATIONS: Cannot display prior to admission medications because the patient has not been admitted in this contact. REVIEW OF SYSTEMS: The remainder of the review of systems is negative. Objective LAST VITALS: Pulse BP Resp O2 Sat Temp Pain 110/70 0 HT/WT/BMI: Height Weight BMI 196 lb 3.2 oz (89 kg) 0 PHYSICAL EXAM: General: WD, WN, obese, NAD, comfortable HEENT: NC/AT, no thyromegaly Lungs: normal respiratory effort Abdomen: Gravid LABS Diagnostic tests reviewed for today's visit: Most recent labs and imaging results. Impression/Recommendations 22 year old EGA:34w6d. Placental abruption in third trimester Admitted Dec 2022 for vaginal bleeding [facility]osp 4 days with reassuring testing in setting of IUGR. Testing reassuring with resolution. No indication for delivery and discharged home. Poor growth affecting management of mother in third trimester Patient prior concerning for IUGR. Delivered at 40 weeks with weight of 2920 which is 8%.Patient voiced concern about setting delivery plan. Feels prior had growth spurt at the end. Based on percentile baby was below the 10%. No developmental delays. 12/24/2022 IUGR based on 3%. Today BPP 6/8 so NST is ordered. Plan 1. Repeat growth every 3rd week. 2. Weekly NST 3. Weekly BPP 4. Delivery if < 3% at 37 weeks recommended. 5. Delivery at 39 weeks if <10% and >3% SIGNATURE: Rudolph Ralph MD PATIENT NAME: Chana De La O DATE: December 28, 2022 TIME: 9:20 AM [facility] History of Present illness Narrative* Ansley Ibrahim APRN.CNM - 12/28/2022 10:21 AM EST BERTHA-NST SUMMARY PROVIDER ASSESSMENT AND INTERPRETATION Chana De La O is a 22 year old female, , who is at 34w6d with an CHAN of 02/02/2023, by Ultrasound dating method. Indications for NST: Obesity Baseline: 130 Variability: Moderate Accelerations: Present 15 X 15 Decelerations: Variable Contractions: TOCO: None Interpretation: Reactive SIGNATURE: Ansley Ibrahim APRN.CNM documented in this encounterUniversity Hospitals Health System11-21-2023 Miscellaneous Notes* Quick Notes - Ansley Ibrahim APRN.CNM - 12/28/2022 10:20 AM EST BERTHA-NST only. PN visit end of week. Ansley Ibrahim APRN.CNM documented in this encounterUniversity Hospitals Health System11-20-2023 NoteHNO ID: [id number] Author: Courtney Gipson MD Service: Obstetrics Author Type: Physician Type: Procedures Filed: 12/27/2022 1:11 PM Note Text: OBSTETRICS NST SUMMARY SERVICE DATE: December 27, 2022 The patient is a 22 year old female, , who is at 34w5d with an CHAN of 02/02/2023, by Ultrasound dating method. NST OBJECTIVE FINDINGS PER NURSE: Start Time: 728 (12/27/22799 : Katherine Mabry RN) Complete Time: 799 (12/27/22799 : Katherine Mabry RN) Indications: Other: Comment (previous vag bleed) (12/27/22799 : Katherine Mbary, RN) Patient Reason For: monitor FHR (12/27/22799 : Katherine Mabry RN) NST Explanation: Procedure Explained;Monitor Explained;Verbalizes Understanding (12/27/22799 : Katherine Mabry RN) Acoustic Stimulator: No (12/27/22799 : Katherine Mabry RN) Interventions: MONITORING/ASSESSMENT: Baseline: 135 bpm (12/27/22799 : Katherine Mabry RN) Variability: Moderate (6-25 bpm) (12/27/22799 : Katherine Mabry, RN) Accelerations: Present (12/27/22799 : Katherine Mabry RN) Decelerations: Decelerations: None (12/27/22799 : Katherine Mabry, STEVENSON) Contractions: Not present (12/27/22799 : Katherine Mabry RN) Frequency: Above information forwarded to Blaise (12/27/22799 : Katherine Mabry, STEVENSON) for final review and interpretation. SIGNATURE: Katherine Mabry RN PATIENT NAME: Chana De La O DATE: December 27, 2022 TIME: 8:18 AM Reactive.Courtney Gipson, [facility]11-20-2023 NoteHNO ID: [id number] Author: Rudolph Ralph MD Service: Obstetrics Author Type: Physician Type: Progress Notes Filed: 12/27/2022 9:46 AM Note Text: OBSTETRICS ANTEPARTUM PROGRESS NOTE SERVICE DATE: 12/27/2022 SERVICE TIME: 6:23 AM Assessment AND Plan : 22 year old EGA:34w5d admitted for vaginal bleeding with concern for abruption . Plan of care discussed with: Provider, RN, Patient. Active Hospital Problems Diagnosis Date Noted Vaginal bleeding 12/23/2022 Priority: A Overview Note: Upon admission 12/23 - Large gush of vaginal bleeding soaking through her clothes at 11 AM 12/23 - SSE with 2 cc dark red blood in the vagina on admission - Closed appearing cervix - irregular contractions upon admission, not feeling them and not currently osman - FHT Cat I - Denies vaginal bleeding or abdominal pain - 12/23: Hgb 11.5, fibrinogen 516, PT/PTT wnl - Pad counts ordered, no bleeding affected by growth restriction 12/25/2022 Overview Note: -Growth@34w2d EFW 4#1 3%/ AC <1% Dopplers reassuring -Need to set up testing going forward pending dispo Mild intermittent asthma 12/23/2022 Overview Note: - Albuterol prn 34 weeks gestation of 12/23/2022 Overview Note: - s/p BMZ 12/23- - Regular Diet - NST BID - Cephalic - GBS negative Poor growth affecting management of mother in third trimester 12/23/2022 Overview Note: - Per records and patient but ultrasound not in paper records on transfer - Plan for growth this morning Rh negative state in antepartum period 11/22/2022 Overview Note: - S/p rhogam on 12/23 with care elsewhere, antepartum 11/15/2022 Overview Note: - Transfer from [place] to [place]. records added by [place] Gastroparesis 11/15/2022 Overview Note: - Diagnosed with gastroparesis in [place] 22 after gallbladder surgery. - Sees GI - Managed with diet alterations. No medications History of depression 11/15/2022 Overview Note: - Hx of Suicidal attempt as a teenager - Denies any history of depression - No meds currently - Mood stable, no SI/HI Engages in nicotine containing substance vaping 11/15/2022 Overview Note: - Encouraged cessation History of marijuana use 11/15/2022 Overview Note: - Declined UDS Subjective : No current vaginal bleeding, No current leaking of fluid, No contractions, Good movement, No shortness of breath or chest pain, and No calf tenderness Objective : LAST VITALS: Pulse BP Resp O2 Sat Temp Pain 75 91/56 16 95 % 36.3 ?C (97.3 ?F) 0 PHYSICAL EXAM: General: well-appearing, AANDO Heart: regular rate Lungs: non-labored breathing on room air Abdomen: soft, gravid Extremities: symmetrical, no edema, warmth, or overlying skin changes MONITORING/ASSESSMENT: testing reassuring - see additional documentation LABS Diagnostic tests reviewed for today's visit: No new labs SIGNATURE: Negin Yancey DO PATIENT NAME: Chana De La O DATE: December 27, 2022 TIME: 6:23 AM I personally saw and examined the patient on 12/27/2022. I reviewed the resident's note. I agree with the resident's assessment and plan unless otherwise noted. Patient admitted for vaginal bleeding 4 days prior. Bleeding resolved on first day. Diagnosed with IUGR. testing continue to be reassuring. Had similar issue with IUGR in last . Plan for discharge today. Will follow up in [facility] for continued testing. I spent 35 min of floor unit time on this discharge. BP has been normal. Rudolph Ralph, [facility]11-19-2023 NoteHNO ID: [id number] Author: Brittany Tubbs RN Service: Nursing Author Type: Registered Nurse Type: Procedures Filed: 12/26/2022 8:55 PM Note Text: Attestation signed by Nilay Polanco MD at 01/16/2023 8:10 PM PROVIDER INTERPRETATION: Category I and Reactive SIGNATURE: Nilay Polanco MD DATE: December 26, 2022 TIME: 8:59 PM OBSTETRICS NST SUMMARY SERVICE DATE: December 26, 2022 The patient is a 22 year old female, , who is at 34w4d with an CHAN of 02/02/2023, by Ultrasound dating method. NST OBJECTIVE FINDINGS PER NURSE: Start Time: 1944 (12/26/222013 : Brittany Tubbs RN) Complete Time: 2013 (12/26/22 2014 : Brittany Tubbs RN) Indications: Other: Comment (s/p vaginal bleeding) (12/26/222013 : Brittany Tubbs RN) Patient Reason For: monitor baby (12/26/222013 : Brittany Tubbs RN) NST Explanation: Procedure Explained;Monitor Explained;Verbalizes Understanding (12/26/222013 : Brittany Tubbs RN) Acoustic Stimulator: Interventions: MONITORING/ASSESSMENT: Baseline: 135 bpm (12/26/222013 : Brittany Tubbs RN) Variability: Moderate (6-25 bpm) (12/26/222013 : Brittany Tubbs RN) Accelerations: Present (12/26/222013 : Brittany Tubbs RN) Decelerations: Decelerations: None (12/26/222013 : Brittany Tubbs RN) Contractions: Not present (12/26/222013 : Brittany Tubbs RN) Frequency: Above information forwarded to Sherri (12/26/222013 : Brittany Tubbs RN) for final review and interpretation. SIGNATURE: Brittany Tubbs RN PATIENT NAME: Chana De La O DATE: December 26, 2022 TIME: 8:55 [facility]11-19-2023 NoteHNO ID: [id number] Author: Svetlana Amador, STEVENSON Service: Nursing Author Type: Registered Nurse Type: Procedures Filed: 12/26/2022 12:34 PM Note Text: Attestation signed by Sony Irwin MD at 12/26/2022 12:49 PM Attending Note I personally evaluated the NST Impression: Reactive NST Signature: Sony Irwin MD Date: 12/26/22 Time: 12:49 PM OBSTETRICS NST SUMMARY SERVICE DATE: December 26, 2022 The patient is a 22 year old female, , who is at 34w4d with an CHAN of 02/02/2023, by Ultrasound dating method. NST OBJECTIVE FINDINGS PER NURSE: Start Time: 1138 (12/26/22 1200 : Svetlana Amador, RN) Complete Time: 1200 (12/26/22 1200 : Svetlana Amador, RN) Indications: Other: Comment (vaginal bleeding) (12/26/22 1200 : Svetlana Amador, RN) Patient Reason For: monitor baby (12/26/22 1200 : Svetlana Amador, RN) NST Explanation: Procedure Explained;Monitor Explained;Verbalizes Understanding (12/26/22 1200 : Svetlana Amador, RN) Acoustic Stimulator: No (12/26/22 1200 : Svetlana Amador, RN) Interventions: (none) (12/26/22 1200 : Svetlana Amador, RN) MONITORING/ASSESSMENT: Baseline: 135 bpm (12/26/22 1200 : Svetlana Amador RN) Variability: Moderate (6-25 bpm) (12/26/22 1200 : Svetlana Amador RN) Accelerations: Present (12/26/22 1200 : Svetlana Amador RN) Decelerations: Decelerations: None (12/26/22 1200 : Svetlana Amador RN) Contractions: Not present (12/26/22 1200 : Svetlana Amador RN) Frequency: Above information forwarded to Dr. Irwin (12/26/22 1200 : Svetlana Amador RN) for final review and interpretation. SIGNATURE: Svetlana Amador RN PATIENT NAME: Chana De La O DATE: December 26, 2022 TIME: 12:34 [facility]11-19-2023 NoteHNO ID: [id number] Author: Negin Yancey DO Service: Obstetrics Author Type: Resident Type: Progress Notes Filed: 12/26/2022 5:19 AM Note Text: Attestation signed by Sony Irwin MD at 12/26/2022 12:54 PM Attending Attestation I evaluated the patient and personally participated in the casarez components. I agree with the resident's findings and plan as documented and have discussed the case and management of the patient's care with the resident. I have reviewed and edited the above note to reflect our collaborative assessment and recommendations. 22yo at 34w4d admitted with vaginal bleeding, found to have with severe FGR, nl Dopplers. Now s/p course of betamethasone, no further vaginal bleeding, status reassuring on EFM. Plan for continued inpatient observation today. For possible discharge home tomorrow if continues to be stable. Sony Irwin MD December 26, 2022 12:53 PM OBSTETRICS ANTEPARTUM PROGRESS NOTE SERVICE DATE: 12/26/2022 SERVICE TIME: 5:17 AM Assessment AND Plan : 22 year old EGA:34w4d admitted for vaginal bleeding with concern for abruption . Plan of care discussed with: Provider, RN, Patient. Active Hospital Problems Diagnosis Date Noted Vaginal bleeding 12/23/2022 Priority: A Overview Note: Upon admission 12/23 - Large gush of vaginal bleeding soaking through her clothes at 11 AM 12/23 - SSE with 2 cc dark red blood in the vagina on admission - Closed appearing cervix - irregular contractions upon admission, not feeling them and not currently osman - FHT Cat I - Denies vaginal bleeding overnight - 12/23: Hgb 11.5, fibrinogen 516, PT/PTT wnl - Pad counts ordered, no bleeding affected by growth restriction 12/25/2022 Overview Note: -Growth@34w2d EFW 4#1 3%/ AC <1% Dopplers reassuring -Need to set up testing going forward pending dispo Mild intermittent asthma 12/23/2022 Overview Note: - Albuterol prn 34 weeks gestation of 12/23/2022 Overview Note: - s/p BMZ - Regular Diet - NST BID - Cephalic - GBS negative Poor growth affecting management of mother in third trimester 12/23/2022 Overview Note: - Per records and patient but ultrasound not in paper records on transfer - Plan for growth this morning Rh negative state in antepartum period 11/22/2022 Overview Note: - S/p rhogam on 12/23 with care elsewhere, antepartum 11/15/2022 Overview Note: - Transfer from [place] to [place]. records added by [place] Gastroparesis 11/15/2022 Overview Note: - Diagnosed with gastroparesis in September 28 after gallbladder surgery. - Sees GI - Managed with diet alterations. No medications History of depression 11/15/2022 Overview Note: - Hx of Suicidal attempt as a teenager - Denies any history of depression - No meds currently - Mood stable, no SI/HI Engages in nicotine containing substance vaping 11/15/2022 Overview Note: - Encouraged cessation History of marijuana use 11/15/2022 Overview Note: - Declined UDS Subjective : No current vaginal bleeding, No current leaking of fluid, No contractions, and Good movement Tolerating p.o. and voiding well. No abdominal pain. No nausea or vomiting. Objective : LAST VITALS: Pulse BP Resp O2 Sat Temp Pain 75 94/50 18 98 % 36.3 ?C (97.3 ?F) 0 PHYSICAL EXAM: General: WD, WN, NAD, comfortable Heart: RR Lungs: Nonlabored breathing on room air Abdomen: soft, nontender, gravid Uterus: soft, NT Extremities: no edema MONITORING/ASSESSMENT: testing reassuring - see additional documentation LABS Diagnostic tests reviewed for today's visit: No new labs SIGNATURE: Negin Yancey DO PATIENT NAME: Chana De La O DATE: December 26, 2022 TIME: 5:17 [facility]11-18-2023 NoteHNO ID: [id number] Author: Xenia Rivera RN Service: Nursing Author Type: Registered Nurse Type: Procedures Filed: 12/25/2022 6:06 PM Note Text: Attestation signed by Sony Irwin MD at 12/26/2022 12:29 PM Attending Note I personally evaluated the NST Impression: Reactive NST Signature: Sony Irwin MD Date: 12/26/22 Time: 12:29 PM OBSTETRICS NST SUMMARY SERVICE DATE: December 25, 2022 The patient is a 22 year old female, , who is at 34w3d with an CHAN of 02/02/2023, by Ultrasound dating method. NST OBJECTIVE FINDINGS PER NURSE: Start Time: 1701 (12/25/221750 : Xenia Rivera RN) Complete Time: 1750 (12/25/221750 : Xenia Rivera RN) Indications: Other: Comment (Previous Vaginal bleeding) (12/25/221750 : Xenia Rivera RN) Patient Reason For: to monitor baby (12/25/221750 : Xenia Rivera RN) NST Explanation: Procedure Explained;Monitor Explained;Verbalizes Understanding (12/25/221750 : Xenia Rivera RN) Acoustic Stimulator: None Interventions: Reposition (12/25/221750 : Xenia Rivera RN) MONITORING/ASSESSMENT: Baseline: 130 bpm (12/25/221750 : Xenia Rivera RN) Variability: Moderate (6-25 bpm) (12/25/221750 : Xenia Rivera RN) Accelerations: Present (12/25/221750 : Xenia Rivera RN) Decelerations: Decelerations: (!) Variable (12/25/221750 : Xenia Rivera RN) Decel Frequency: Intermittent (12/25/221750 : Xenia Rivera RN) Contractions: Not present (12/25/221750 : Xenia Rivera RN) Frequency: Above information forwarded to Dolin (12/25/221750 : Xenia Rivera RN) for final review and interpretation. SIGNATURE: Xenia Rivera RN PATIENT NAME: Chana De La O DATE: December 25, 2022 TIME: 6:05 [facility]11-18-2023 NoteHNO ID: [id number] Author: Xenia Rivera RN Service: Nursing Author Type: Registered Nurse Type: Procedures Filed: 12/25/2022 11:43 AM Note Text: Attestation signed by Sony Irwin MD at 12/25/2022 11:58 AM Attending Note I personally evaluated the NST Impression: Reactive NST Signature: Sony Irwin MD Date: 12/25/22 Time: 11:58 AM OBSTETRICS NST SUMMARY SERVICE DATE: December 25, 2022 The patient is a 22 year old female, , who is at 34w3d with an CHAN of 02/02/2023, by Ultrasound dating method. NST OBJECTIVE FINDINGS PER NURSE: Start Time: 1112 Complete Time: 1142 Indications: Vaginal Bleeding Patient Reason For: To monitor baby NST Explanation: To monitor baby Acoustic Stimulator: None Interventions: None MONITORING/ASSESSMENT: Baseline: 130 bpm (12/25/22 1128 : Xenia Rivera RN) Variability: Moderate (6-25 bpm) (12/25/22 1128 : Xenia Rivera RN) Accelerations: Present (12/25/22 1128 : Xenia Rivera RN) Decelerations: Decelerations: None (12/25/22 1128 : Xenia Rivera RN) Contractions: Not present (12/25/228 : Xenia Rivera RN) Frequency: Above information forwarded to for final review and interpretation. SIGNATURE: Xenia Rivera RN PATIENT NAME: Chana De La O DATE: December 25, 2022 TIME: 11:41 [facility]11-18-2023 NoteHNO ID: [id number] Author: Svetlana Gutierrez MD Service: Obstetrics Author Type: Resident Type: Progress Notes Filed: 12/25/2022 5:06 AM Note Text: Attestation signed by Sony Irwin MD at 12/25/2022 11:59 AM Attending Attestation I evaluated the patient and personally participated in the casarez components. I agree with the resident's findings and plan as documented and have discussed the case and management of the patient's care with the resident. I have reviewed and edited the above note to reflect our collaborative assessment and recommendations. 22yo at 34w3d admitted with vaginal bleeding, found to have with severe FGR, nl Dopplers. Now s/p course of betamethasone, no further vaginal bleeding, status reassuring on EFM. Plan for continued inpatient observation today. For possible discharged home tomorrow if continues to be stable. Sony Irwin MD December 25, 2022 11:58 AM OBSTETRICS ANTEPARTUM PROGRESS NOTE SERVICE DATE: 12/25/2022 SERVICE TIME: 5:04 AM Assessment AND Plan : 22 year old EGA:34w3d admitted for vaginal bleeding. Plan of care discussed with: Provider, RN, Patient. Active Hospital Problems Diagnosis Date Noted Vaginal bleeding 12/23/2022 Overview Note: Upon admission 12/23 - Large gush of vaginal bleeding soaking through her clothes at 11 AM 12/23 - SSE with 2 cc dark red blood in the vagina on admission - Closed appearing cervix - irregular contractions upon admission, not feeling them and not currently osman - FHT Cat I - Denies vaginal bleeding overnight - Hgb 11.5, fibrinogen 516, PT/PTT wnl - Pad counts ordered, no bleeding affected by growth restriction 12/25/2022 Overview Note: -Growth@34w2d EFW 4#1 3%/ AC <1% Dopplers reassuring -Need to set up testing going forward pending dispo Depression affecting in third trimester, antepartum 12/24/2022 Mild intermittent asthma 12/23/2022 Overview Note: - Albuterol prn 34 weeks gestation of 12/23/2022 Overview Note: - s/p BMZ - Regular Diet - NST BID - Cephalic - GBS negative Poor growth affecting management of mother in third trimester 12/23/2022 Overview Note: - Per records and patient but ultrasound not in paper records on transfer - Plan for growth this morning Rh negative state in antepartum period 11/22/2022 Overview Note: - S/p rhogam on 12/23 with care elsewhere, antepartum 11/15/2022 Overview Note: - Transfer from [place] to [place]. records added by [place] Gastroparesis 11/15/2022 Overview Note: - Diagnosed with gastroparesis in [place] 28 after gallbladder surgery. - Sees GI - Managed with diet alterations. No medications History of depression 11/15/2022 Overview Note: - Hx of Suicidal attempt as a teenager - Denies any history of depression - No meds currently - Mood stable, no SI/HI Engages in nicotine containing substance vaping 11/15/2022 Overview Note: - Encouraged cessation History of marijuana use 11/15/2022 Overview Note: - Declined UDS Subjective : No current vaginal bleeding, No current leaking of fluid, No contractions, Good movement, No shortness of breath or chest pain, and No calf tenderness Objective : LAST VITALS: Pulse BP Resp O2 Sat Temp Pain 78 100/52 16 99 % 36.8 ?C (98.2 ?F) 0 PHYSICAL EXAM: General: WD, WN, NAD, comfortable Heart: RR Lungs: nonlabored breathing on RA Abdomen: soft, nontender Uterus: soft, NT MONITORING/ASSESSMENT: testing reassuring - see additional documentation LABS Diagnostic tests reviewed for today's visit: Most recent labs and imaging results. SIGNATURE: Svetlana Gutierrez MD PATIENT NAME: Chana De La O DATE: December 25, 2022 TIME: 5:04 [facility]11-17-2023 NoteHNO ID: [id number] Author: Brittany Tubbs RN Service: Nursing Author Type: Registered Nurse Type: Procedures Filed: 12/24/2022 8:19 PM Note Text: Attestation signed by Angeline Carranza MD at 12/24/2022 9:32 PM PROVIDER INTERPRETATION: Category I and Reactive - There was a break in FHR- likely variable- with quick return to baseline- 140s moderate variability with + accels. SIGNATURE: Angeline Del Castillo MD DATE: December 24, 2022 TIME: 9:30 PM OBSTETRICS NST SUMMARY SERVICE DATE: December 24, 2022 The patient is a 22 year old female, , who is at 34w2d with an CHAN of 02/02/2023, by Ultrasound dating method. NST OBJECTIVE FINDINGS PER NURSE: Start Time: 1927 (12/24/221955 : Brittany Tubbs RN) Complete Time: 1955 (12/24/221955 : Brittany Tubbs RN) Indications: Other: Comment (Vaginal bleeding) (12/24/221955 : Brittany Tubbs RN) Patient Reason For: (monitor baby) (12/24/221955 : Brittany Tubbs RN) NST Explanation: Procedure Explained;Monitor Explained;Verbalizes Understanding (12/24/221955 : Brittany Tubbs RN) Acoustic Stimulator: Interventions: MONITORING/ASSESSMENT: Baseline: 140 bpm (12/24/221955 : Brittany Tubbs RN) Variability: Moderate (6-25 bpm) (12/24/221955 : Brittany Tubbs RN) Accelerations: Present (12/24/221955 : Brittany Tubbs RN) Decelerations: Decelerations: (!) Variable (12/24/221955 : Brittany Tubbs RN) Decel Frequency: Intermittent (12/24/221955 : Brittany Tubbs RN) Contractions: Not present (12/24/222004 : Brittany Tubbs RN) Frequency: Above information forwarded to Vlad (12/24/221955 : Brittany Tubbs RN) for final review and interpretation. SIGNATURE: Brittany Tubbs RN PATIENT NAME: Chana De La O DATE: December 24, 2022 TIME: 8:18 [facility]11-17-2023 NoteHNO ID: [id number] Author: Svetlana Gutierrez MD Service: Obstetrics Author Type: Resident Type: Progress Notes Filed: 12/24/2022 6:14 AM Note Text: Attestation signed by Christian Mondragon DO at 12/24/2022 4:13 PM MFM Attending Note I saw and evaluated the patient. I agree with the resident's findings and plan of care as documented below. Chana is a 2 y/o at 34w2d transported from [place] last evening for new onset VB. also complicated by FGR, vaping/marijuana use, depression, and gastroparesis. Reports large gush of blood yesterday morning that persisted until she arrived at [place]. In addition, she was reporting uterine cramping. Denies any recent cocaine use or trauma. Denies any subsequent VB since transport. She reports feeling appropriate movement. Today's US c/w severe FGR with EFW at the 3rd percentile and AC <1%. No sonographic evidence of placental abruption. We reviewed today's ultrasound findings and limitations. Chana was counseled on the etiologies and management of FGR including aneuploidy, genetic syndromes, viral infections, and placental insufficiency (often related to maternal conditions like diabetes, hypertension, SLE, and preeclampsia). Additionally, malnutrition, tobacco use, and substance abuse have been associated with FGR. In approximately 70% of cases, FGR is constitutional. We also discussed the risk of intrauterine demise in the setting of FGR with a higher risk in cases of severe FGR. Chana was further counseled on the presumed abruption given her overall clinical presentation. She was informed of the increased risk of worsening placental abruption, hemorrhage, DIC, need of blood products, hysterectomy, labor/, and maternal and/or . At this time, I recommend continued inpatient management with CEFM until this evening. If cat I, will d/c CEFM and transition to NST BID. NICU consult complete. Indications for delivery were reviewed. DONALDO course completed today. All of her questions were answered. Christian Mondragon DO, MPH 12/24/2022 4:01 PM OBSTETRICS ANTEPARTUM PROGRESS NOTE SERVICE DATE: 12/24/2022 SERVICE TIME: 6:13 AM Assessment AND Plan : 22 year old EGA:34w2d admitted for vaginal bleeding. Plan of care discussed with: Provider, RN, Patient. Active Hospital Problems Diagnosis Date Noted Vaginal bleeding 12/23/2022 Overview Note: - Large gush of vaginal bleeding soaking through her clothes at 11 AM 12/24 - SSE with 2 cc dark red blood in the vagina on admission - Closed appearing cervix - irregular contractions upon admission, not feeling them and not currently osman - FHT Cat I - Denies vaginal bleeding overnight - Hgb 11.5, fibrinogen 516, PT/PTT wnl - Pad counts ordered - Plan for formal ultrasound this morning with MFM Mild intermittent asthma 12/23/2022 Overview Note: - Albuterol prn 34 weeks gestation of 12/23/2022 Overview Note: - BMZ #1 given prior to transfer, #2 due on 12/24 at 1330 - CEFM/NPO - Cephalic - GBS negative Poor growth affecting management of mother in third trimester 12/23/2022 Overview Note: - Per records and patient but ultrasound not in paper records on transfer - Plan for growth this morning Rh negative state in antepartum period 11/22/2022 Overview Note: - S/p rhogam on 12/23 with care elsewhere, antepartum 11/15/2022 Overview Note: - Transfer from [place] to [place]. records added by [place] Gastroparesis 11/15/2022 Overview Note: - Diagnosed with gastroparesis in [place] 28 after gallbladder surgery. - Sees GI - Managed with diet alterations. No medications History of depression 11/15/2022 Overview Note: - Hx of Suicidal attempt as a teenager - Denies any history of depression - No meds currently - Mood stable, no SI/HI Engages in nicotine containing substance vaping 11/15/2022 Overview Note: - Encouraged cessation History of marijuana use 11/15/2022 Overview Note: - Declined UDS Subjective : No current vaginal bleeding, No current leaking of fluid, No contractions, Good movement, No shortness of breath or chest pain, and No calf tenderness Objective : LAST VITALS: Pulse BP Resp O2 Sat Temp Pain 68 88/51 16 100 % 36.7 ?C (98.1 ?F) 0 PHYSICAL EXAM: General: WD, WN, NAD, comfortable Heart: RR Lungs: nonlabored breathing on room air Abdomen: soft, nontender Uterus: soft, NT MONITORING/ASSESSMENT: testing reassuring - see additional documentation FHT Cat I and reactive currently without contractions LABS Diagnostic tests reviewed for today's visit: Most recent labs and imaging results. SIGNATURE: Svetlana Gutierrez MD PATIENT NAME: Chana Macias Ra (more content not included)...[facility]11-16-2023 NoteHNO ID: [id number] Author: Dania Ozuna MD Service: Obstetrics Author Type: Resident Type: Progress Notes Filed: 12/23/2022 8:37 PM Note Text: Patient or surrogate (if available) has been given information of the risks, benefits and limitations of toxicology testing. Patient or surrogate was given the Patient Information Sheet for Maternal Toxicology Lab Test. All questions have been answered. Patient indication(s) for toxicology testing includes Substance use during or history of substance use within 1 year, without documented negative toxicology testing in the third trimester. Patient or surrogate does not consent to testing.[facility]11-16-2023 Miscellaneous Notes* Telephone Encounter - Geeta Santo RN - 12/23/2022 12:09 PM EST 34w1d Called in c/o large gush of blood that occurred when she went to stand up just prior to phone call.Soaked through all clothes. No pain or contractions. No other complaints. Good movement this morning. She is going straight to L&D. L&D and SW both notified. Geeta Santo RN documented in this encounterUniversity Hospitals Health System11-13-2023 Miscellaneous Notes* Quick Notes - Svetlana Schaeffer APRN.CNP - 12/20/2022 4:36 PM EST S: Chana is a 21 year old female who presents at 33w5d for a routine visit. Feeling movement.Denies headache, visual changes, chest pain, shortness of breath, vaginal bleeding, or dysuria. Reports leakage of fluid on Sunday 12/17. O: See flow sheet Gen: No apparent distress Abd: Gravid, nontender, S<D ASSESSMENT/PLAN: 1. 33 weeks gestation of - ICD9: V22.2, ICD10: Z3A.33 (primary diagnosis) - URINE OB DIP B/O - CBC next visit as 28 week CBC not noted in chart 2. care, subsequent in third trimester - ICD9: V22.1, ICD10: Z34.83 - Received Rhogam 11/22/22 3. Leakage of amniotic fluid - ICD9: 658.10, ICD10: O42.90 - Reports fluid leaking on 11/10 - Negative ferning - Negative pooling - Positive Nitrazine paper Case reviewed with Dr. Granados. Patient to go labor and delivery for rule out SROM. Svetlana Schaeffer APRN.CNP documented in this encounterUniversity Hospitals Health System11-13-2023 Instructions* Patient Instructions* Nadia Wilkins AZAEL - 12/20/2022 3:27 PM EST SEQUENTIAL SCREENINGS The [facility] offers sequential screenings for women who are interested in screenings for chromosomal abnormalities and certain defects during a . The sequential screen combinesultrasound and blood tests to determine the risk of chromosomal abnormalities, including Down's Syndrome (Trisomy 21) and Trisomy 18, as well as open neural tube defects including spina bifida. Ultrasound examination is performed between 11 weeks and 13 weeks gestational age. Blood tests are drawn after the ultrasound and again later in the between 15 and 21 weeks gestational age. Please let your physician know if you are interested in this testing. It will require an appointment withour cardiopulmonary technician. This is not an ultrasound performed by a physician in our office during a routine visit. SIGNS AND SYMPTOMS OF LABOR 1. Contractions every 10 minutes or more often 2. Clear, pink, or brownish fluid (water) leaking from vagina 3. Feeling that baby is pushing down, pressure 4. Low, dull backache 5. Cramps that feel like a period 6. Cramps with or without diarrhea If you notice any of the above symptoms, contact our office at [phone] and ask to speak with anurse. After hours, you can call doctors registry at [phone] OR call [facility] at [phone] ask to have the doctor mobile phone salesperson paged. If you consider this an emergency, dial 9--1 or go to your nearest emergency department. NEED HELP? Are you dealing with a violent or abusive relationship? Are you a victim of rape or sexual assult? Call [facility] ([place]) 24 hour Crisis Hotline: 315.891.4910 or 127-705-5749. MANUAL Your Guide to a Healthy manual is now on-line. Visit [email or web address] to download your free copy documented in this encounterUniversity Hospitals Health System11-01-2023 Miscellaneous Notes* Telephone Encounter - Stephanie Boateng RN - 12/08/2022 12:42 PM EDT Patient notified. States that her boyfriend has her car and she won't be able to make it until after 3PM. Encouraged patient to find other transportation. Updated H&P faxed to l&D. CP to updated [facility] nursing staff as they called to speak with her. Stephanie Boateng RN * Telephone Encounter - Danni Reynolds APRN.CNM - 12/08/2022 12:24 PM EDT Patient should proceed to L&D for evaluation due to decreased movement, cramping and headache. Danni Reynolds APRN.CNM * Telephone Encounter - Nadia Wilkins LPN - 12/08/2022 11:11 AM EDT 32w0d Pt calling and reporting that for the past 3-4 days she has been having cramping her lower abdomen that she is rating at a 5 1/2 on a pain scale. She reports that she has not timed these but is having approx. 4-5 times per hours. Reports that her abdomen becomes hard, with cramping and then becomesslightly softer when cramping subsides. Pt stating that the cramping is lasting between 2-5 min. Reports that she has not felt the baby move yet today. No bleeding, no fluid leakage. Increased pelvicpressure. Pt has had a bowel movement today. Pt stating that she has had adequate fluid intake thisam. She is also reports that she has a pounding h/a that started today. Has not taken any tylenol for this as she reports that she is not allowed to take this. Pt stating that she has had 2-3 episodes of vomiting, reports only bringing up bile. Has not tried to eat today, but has had about 30 ounces of water. Pt used marijuana this morning for pain, which she stated that she got some relief from this. Please advise how to proceed. Nadia Wilkins LPN documented in this encounterUniversity Hospitals Health System10-30-2023 Miscellaneous Notes* Quick Notes - Ansley Ibrahim APRN.CNM - 12/06/2022 4:45 PM EDT BERTHA-S: Chana De La O is a 21 year old female who presents at 31w5d with CHAN:02/02/2023, by Ultrasoundfor a routine visit. Good FM. Denies headache, visual changes, chest pain, shortness of breath, vaginal bleeding, leakage of fluid, or dysuria. Feeling well, no complaints. Continues smoking marijuana daily. O: See flow sheet Gen: No apparent distress Abd: Gravid, nontender ASSESSMENT/PLAN: 1. with care elsewhere, antepartum 2. 31 weeks gestation of P: 1) PTL precautions reviewed and when to call 2) RTO in 2 weeks 3) Marijuana use, advised cessation and risks. Planning to continue and voiced understanding. 4) Title 19 signed. Ansley Ibrahim APRN.CNM documented in this encounterUniversity Hospitals Health System10-30-2023 Instructions* Patient Instructions* Davi Gomez Cma - 12/06/2022 4:28 PM EDT SEQUENTIAL SCREENINGS The [facility] offers sequential screenings for women who are interested in screenings for chromosomal abnormalities and certain defects during a . The sequential screen combinesultrasound and blood tests to determine the risk of chromosomal abnormalities, including Down's Syndrome (Trisomy 21) and Trisomy 18, as well as open neural tube defects including spina bifida. Ultrasound examination is performed between 11 weeks and 13 weeks gestational age. Blood tests are drawn after the ultrasound and again later in the between 15 and 21 weeks gestational age. Please let your physician know if you are interested in this testing. It will require an appointment withour cardiopulmonary technician. This is not an ultrasound performed by a physician in our office during a routine visit. SIGNS AND SYMPTOMS OF LABOR 1. Contractions every 10 minutes or more often 2. Clear, pink, or brownish fluid (water) leaking from vagina 3. Feeling that baby is pushing down, pressure 4. Low, dull backache 5. Cramps that feel like a period 6. Cramps with or without diarrhea If you notice any of the above symptoms, contact our office at [phone] and ask to speak with anurse. After hours, you can call doctors registry at [phone] OR call [facility] at [phone] ask to have the doctor mobile phone salesperson paged. If you consider this an emergency, dial 2-5-0 or go to your nearest emergency department. NEED HELP? Are you dealing with a violent or abusive relationship? Are you a victim of rape or sexual assult? Call [facility] ([place]) 24 hour Crisis Hotline: 216.774.1278 or 533-214-0252. MANUAL Your Guide to a Healthy manual is now on-line. Visit [email or web address] to download your free copy documented in this encounterUniversity Hospitals Health System10-16-2023 NoteHNO ID: [id number] Author: Danni Reynolds APRN.CNM Service: ? Author Type: Soda Jerker Type: Progress Notes Filed: 11/22/2022 2:26 PM Note Text: INITIAL OB ASSESSMENT- TRANSFER FROM [facility] Provider: Danni Reynolds APRN.CNM HPI: Chana is a 21 year old White here to establish Obstetrical Care. Patient's last menstrual period was 03/23/2022 (approximate). from OB Dating Form. Cycles irregular-PCOS was unplanned (not prevented though)but accepted Complaints: None Gallbladder removed and during surgery thinks stomach was affected. Dx. With gastroparesis . Has increased pain- reports self medicating with marijuana daily use. OB History T1 L1 SAB0 IAB0 Ectopic0 Multiple0 Live Births1 # 1 - Date: 08/11/21, Sex: Female, Weight: 6 lb 7 oz (2.92 kg), GA: 40w4d, Delivery: Vaginal, Spontaneous, Apgar1: 9, Apgar5: 9, Living: Living, Comments: retained products of conception- suction DANDC 08/31/21, 1st degree midline labial and left labial lacerations, EBL 350mm # 2 - Date: None, Sex: None, Weight: None, GA: None, Delivery: None, Apgar1: None, Apgar5: None, Living: None, Comments: None Previous history: Prior : never History of 4th degree laceration: No History of shoulder dystocia: No History of Hypertensive disorders including pre-eclampsia, chronic hypertension or gestational hypertension: No History of gestational diabetes: No Patient's Risk Screening for delivery: Have you had a prior plata between 20w and 36w6d?: No MEDICAL/PSYCHOSOCIAL HISTORY: History of hemorrhage or bleeding concerns: No Thyroid Disease: No History of chronic hypertension: No History of pre-existing diabetes: No No results found for: ABORHD No weight on file for this encounter. History of abnormal pap: No Prior treatment for cervical dysplasia: none. History of STDs: None Tobacco use: occasional vaping Caffeine use: Yes-rarely has soda Drug use: No Alcohol use: No Multivitamin with Folic acid: Not taking Hoahaoism or heritage: No Would refuse blood transfusion if medically necessary: No Are you currently employed? 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 I don't have enough money to pay my bills: Often Within the past 12 months, have you worried that your food would run out before you had money to buy more: Never In the past 12 months, has lack of reliable transportation kept you from going to medical appointments or work, or from keeping things needed for daily living: Never In the past 12 months, have you had any concerns about having a place to live, or about the condition or quality of your housing: Never Are there any cultural or spiritual needs we should be aware of: No Depression/Anxiety Screening: denies symptoms of depression. OB Depression and Anxiety Screening- This Encounter (since 11/14/2022) Over the past 2 weeks have you felt down, depressed, or hopeless? Negative Over the past two weeks, have you felt little interest or pleasure in doing things?? Negative Feeling nervous, anxious or on edge 1-Several days Not being able to stop or control worrying 0-Not al all Anxiety Pre-Screening Total (If >/= 3 additional questions will be reviewed) 1 Genetic Screening: Partner present: Yes Patient verbalized knowledge of partner family health history: Yes Do you or your partner have any personal or family history of defects not previously discussed: No Do you have history of a complicated by anomaly, genetic condition, or demise: No ACOG Recommended Screening Screening for early gestational diabetes testing: Criteria for early testing requires elevated BMI plus one other risk factor: No weight on file for this encounter. (risk factor if > than 25 or 23 in Americans) Additional risk factors: First-degree relative with diabetes and Women with polycystic ovarian syndrome She does meet ACOG criteria for early gestational DM screening. Screening for low dose aspirin use for the prevention of pre-eclampsia: Low dose aspirin should be considered if the patient has one high or two moderate risk factors: High risk factors: None Moderate risk ractors: None She does not meet criteria for low dose ASA Marital Status:Committed relationship Partner: Name: Abrahan Mahoney Age: 25 Occupation: unemployed Gender: Male History of STDs: None PAST MEDICAL HISTORY PAST MEDICAL HISTORY Diagnosis Date ADHD (attention deficit hyperactivity disorder) Anemia Asthma Gastroparesis IBS (irritable bowel syndrome) PCOS (polycystic ovarian sy (more content not included)...[facility]10-16-2023 Miscellaneous Notes* Quick Notes - Danni Reynolds APRN.CNM - 11/22/2022 1:39 PM EDT Patient is at 29.5 weeks gestation here for NOB. She is a transfer patient from [facility]. See progress note. Danni Reynolds APRN.CNM documented in this encounterUniversity Hospitals Health System10-16-2023 Instructions* Patient Instructions* Devorah Francois Ma - 11/22/2022 12:50 PM EDT Please select the following link to access the [facility] Your Guide to a Healthy . [email or web address] documented in this encounterUniversity Hospitals Health System10-16-2023 History of Present illness Narrative* Danni Reynolds APRN.CNM - 11/22/2022 12:48 PM EDT Images from the original note were not included. INITIAL OB ASSESSMENT- TRANSFER FROM [facility] Provider: Danni Reynolds APRN.CNM HPI: Chana is a 21 year old White here to establish Obstetrical Care. Patient's last menstrual period was 03/23/2022 (approximate). from OB Dating Form. Cycles irregular-PCOS was unplanned (not prevented though)but accepted Complaints: None Gallbladder removed and during surgery thinks stomach was affected. Dx. With gastroparesis . Has increased pain- reports self medicating with marijuana daily use. OB History T1 L1 SAB0 IAB0 Ectopic0 Multiple0 Live Births1 # 1 - Date: 08/11/21, Sex: Female, Weight: 6 lb 7 oz (2.92 kg), GA: 40w4d, Delivery: Vaginal, Spontaneous, Apgar1: 9, Apgar5: 9, Living: Living, Comments: retained products of conception- suction D&C 08/31/21, 1st degree midline labial and left labial lacerations, EBL 350mm # 2 - Date: None, Sex: None, Weight: None, GA: None, Delivery: None, Apgar1: None, Apgar5: None, Living: None, Comments: None Previous history: Prior : never History of 4th degree laceration: No History of shoulder dystocia: No History of Hypertensive disorders including pre-eclampsia, chronic hypertension or gestational hypertension: No History of gestational diabetes: No Patient's Risk Screening for delivery: Have you had a prior plata between 20w and 36w6d?: No MEDICAL/PSYCHOSOCIAL HISTORY: History of hemorrhage or bleeding concerns: No Thyroid Disease: No History of chronic hypertension: No History of pre-existing diabetes: No No results found for: ABORHD No weight on file for this encounter. History of abnormal pap: No Prior treatment for cervical dysplasia: none. History of STDs: None Tobacco use: occasional vaping Caffeine use: Yes-rarely has soda Drug use: No Alcohol use: No Multivitamin with Folic acid: Not taking Hoahaoism or heritage: No Would refuse blood transfusion if medically necessary: No Are you currently employed? 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 I don't have enough money to pay my bills: Often Within the past 12 months, have you worried that your food would run out before you had money to buy more: Never In the past 12 months, has lack of reliable transportation kept you from going to medical appointments or work, or from keeping things needed for daily living: Never In the past 12 months, have you had any concerns about having a place to live, or about the condition or quality of your housing: Never Are there any cultural or spiritual needs we should be aware of: No Depression/Anxiety Screening: denies symptoms of depression. OB Depression and Anxiety Screening- This Encounter (since 11/14/2022) Over the past 2 weeks have you felt down, depressed, or hopeless? Negative Over the past two weeks, have you felt little interest or pleasure in doing things? Negative Feeling nervous, anxious or on edge 1-Several days Not being able to stop or control worrying 0-Not al all Anxiety Pre-Screening Total (If >/= 3 additional questions will be reviewed) 1 Genetic Screening: Partner present: Yes Patient verbalized knowledge of partner family health history: Yes Do you or your partner have any personal or family history of defects not previously discussed: No Do you have history of a complicated by anomaly, genetic condition, or demise: No ACOG Recommended Screening Screening for early gestational diabetes testing: Criteria for early testing requires elevated BMI plus one other risk factor: No weight on file for this encounter. (risk factor if > than 25 or 23 in Americans) Additional risk factors: First-degree relative with diabetes and Women with polycystic ovarian syndrome She does meet ACOG criteria for early gestational DM screening. Screening for low dose aspirin use for the prevention of pre-eclampsia: Low dose aspirin should be considered if the patient has one high or two moderate risk factors: High risk factors: None Moderate risk ractors: None She does not meet criteria for low dose ASA Marital Status:Committed relationship Partner: Name: Abrahan Mahoney Age: 25 Occupation: unemployed Gender: Male History of STDs: None PAST MEDICAL HISTORY PAST MEDICAL HISTORY Diagnosis Date ADHD (attention deficit hyperactivity disorder) Anemia Asthma Gastroparesis IBS (irritable bowel syndrome) PCOS (polycystic ovarian syndrome) Reactive airway disease inhaler use with URIs PAST SURGICAL HISTORY PAST SURGICAL HISTORY Procedure Laterality Date D&C SUCTION 08/31/2021 Retained POC after 08/11/21 vaginal delivery REMOVAL GALLBLADDER REMOVE TONSILS/ADENOIDS,12+ Y/O 2017 CURRENT MEDICATIONS Current Outpatient Medications Medication Sig Dispense Refill ondansetron orally disintegrating (ZOFRAN ODT) 4 mg disintegrating tablet TAKE 2 TABLETS BY MOUTH EVERY 8 HOURS NEEDED FOR NAUSEA ferrous sulfate 325 mg (65 mg iron) tablet Take by mouth. albuterol HFA (PROAIR HFA) 90 mcg/actuation inhaler Inhale 2 Puffs as instructed every 6 hours as needed. 18 g 0 vit/iron fum/folic ac ( 1 + 1 ORAL) Take by mouth. (Patient not taking: Reported on 11/15/2022) albuterol HFA (PROAIR HFA) 90 mcg/actuation inhaler Inhale 2 Puffs as instructed every 4 hours as needed. (Patient not taking: Reported on 08/19/2022) 1 Each 0 albuterol HFA (VENTOLIN HFA) 90 mcg/actuation inhaler Inhale 2 Puffs as instructed every 4 hours asneeded for Wheezing/Shortness of Breath. (Patient not taking: Reported on 08/21/2022) 1 Inhaler 0 No current facility-administered medications for this visit. Allergies As of Date: 11/15/2022 Allergen Noted Reaction SEASONAL ALLERGIES 11/30/2017 Cough, Other: See Comments, and Itching Fully Assessed 11/15/2022 Does patient have penicillin allergy: No REVIEW OF SYSTEMS: GENERAL: Negative for: Fever or Chills and Positive for: Fatigue HEENT: Negative for: Headache, Impaired Vision, Ringing in Ears, Nosebleeds NECK: Negative for: Swelling, Pain, Stiffness RESPIRATORY: Negative for: Cough, Shortness of breath, Wheezing and History of Asthma GASTROINTESTINAL: Negative for: Heartburn, Constipation, Diarrhea, Blood in stool, Vomiting, Positive for: Nausea and Vomiting, and Positive for: Heartburn Seeing Dr. Charbel taylor MUSCULOSKELETAL: Negative for: Muscle or joint pain, stiffness, Joint swelling NEUROLOGIC/PSYCHIATRIC: Negative for: Weakness, Paralysis, Numbness, Tingling, Tremor, Anxiety, Depression, Memory loss Hospitalized age 15 suicide attempt SKIN: Negative for: Rash, Itching GENITOURINARY: Negative for: vaginal itching, vaginal discharge, hematuria or dysuria and Positive for: urinary frequency PHYSICAL EXAM: BP 104/60 Ht 5' 5 (1.65m) Wt 189 lb (85.7kg) LMP 03/23/2022 BMI 31.45 kg/(m^2). GENERAL: pleasant in no apparent distress DERMATOLOGY: Normal and without lesions NECK: Supple and full range of motion CHEST: Normal inspiratory effort BREAST: deferred ABDOMEN: soft, non-tender, and no masses NEURO: alert and oriented x3,exam grossly non-focal Limited OB ultrasound exam: not performed OB Risk Screening: Completed, no positive findings documented. SBIRT Chana De La O was given the 4P's screening tool. Chana answered as follows: OB Opioid Screening - Last Recorded (since 02/25/2022) Did any of your parents have a problem with alcohol or other drug use? Yes mother and father-drug Does your partner have a problem with alcohol or other drug use? No In the past, have you had difficulties in your life because of alcohol or other drugs, including prescription medications? No In the past month have you drunk any alcohol or used other drugs? No Are you taking medication for pain during the either prescribed or not? No Based on the screen and further questions, she is considered at moderate risk due to: Continued lowlevel of use. Patient reports use of marijuana daily for pain relief, nausea and vomiting due to stomach issues Patient offered brief intervention. In discussing this issue my medical advice was that Chana De La O abstain. Her readiness to change(0lowest - 10 highest) was 0. We discussed her motivation to change based upon this response. ASSESSMENT/PLAN: 1. with care elsewhere, antepartum - ICD9: V22.1, ICD10: Z34.90 (primary diagnosis) 2. Gastroparesis - ICD9: 536.3, ICD10: K31.84 3. History of depression - ICD9: V11.8, ICD10: Z86.59 4. History of marijuana use - ICD9: 305.23, ICD10: F12.91 5. 29 weeks gestation of - ICD9: V22.2, ICD10: Z3A.29 PLAN: - TYPE + SCREEN - HORTICULTURALIST - RHO(D) IMMUNE GLOBULIN 1,500 UNIT (300 MCG)/2 ML INJECTION SYRINGE - SYPHILIS TOTAL W/REFLEX - UA DIP OB, URINE (POC) - URINE OB DIP B/O - GCT- normal -- Plans on epidural and formula feeding - Discussed cessation of marijuana use- patient declines at this time - Patient oriented to practice. Discussed how to access Your guide to a health and the [employer]. Reviewed midwifery and client manager services that are available. Follow up in 2 weeks or sooner [place]. Danni Reynolds APRN.CNM documented in this encounterUniversity Hospitals Health System10-09-2023 Miscellaneous Notes* Quick Notes - Luis Manuel Macias RN - 11/15/2022 3:12 PM EDT DISTANCE HEALTH VISIT This Team Access Model visit is a phone encounter. It required patient-provider interaction for themedical decision making as documented below. I have communicated my name and active licensure. The patient's identity and physical location wereverified at the time of this visit. Father of the baby is involved. He is the father of her other child. Patient is transferring care from [facility]. We have received her records and they are sent to Danni Reynolds for review. Patient's last visit with [facility] was October 20. Patient states she was diagnosed with gastroparesis September 28 after gallbladder surgery. She has seen Dr. Thornton for this and he referred her to Dr. Kowalski, a GI specialist. Patient has an appointment with Dr. Kowalski on December 03. She states she tries to manage this with eating 6 meals a day and otis tea. She states that she believes she will have probable surgery after the of the baby.Pt has a history of anxiety/depression diagnosed at age 15 or 16. She states she has been off medication since age 17. She believes she is doing better off medication than when she was on it. Discussed increased risks of depression during and and importance of reporting the development or worsening of symptoms should they occur. Pt states that she did have a suicidal attempt and was hospitalized in [place] as a teenager. She states that she had counseling in the past but none since age 18. She denies any history of depression.Pt states she quit smoking 1 week ago. States that she occ asionally vapes nicotine. Discussed risks of continued use in and advised patient to quit. Information for [place] tobacco quit line given to patient. Patient states she stopped using marijuana 1 week ago. Advised patient to continue not using marijuana. Risks of using marijuana during discussed with patient. Patient is complaining of nausea and occasional vomiting in . Dietary considerations discussed . Vitamin B6 recommended. Advised patient to call/come in if she isunable to keep any food or fluids down in a 24-hour period. Luis Manuel Macias RN documented in this encounterUniversity Hospitals Health System10-09-2023 NoteHNO ID: [id number] Author: Luis Manuel Macias RN Service: ? Author Type: ? Type: Progress Notes Filed: 11/15/2022 5:15 PM Note Text: INITIAL OB ASSESSMENT OB Provider: Luis Manuel Macias RN HPI: Chana is a 21 year old White here to establish Obstetrical Care. Patient's last menstrual period was 03/23/2022 (approximate). from OB Dating Form. Cycles irregular-PCOS was unplanned (not prevented though)but accepted Complaints: None OB History T1 L1 SAB0 IAB0 Ectopic0 Multiple0 Live Births1 # 1 - Date: 08/11/21, Sex: Female, Weight: 6 lb 7 oz (2.92 kg), GA: 40w4d, Delivery: Vaginal, Spontaneous, Apgar1: 9, Apgar5: 9, Living: Living, Comments: retained products of conception- suction DANDC 08/31/21, 1st degree midline labial and left labial lacerations, EBL 350mm # 2 - Date: None, Sex: None, Weight: None, GA: None, Delivery: None, Apgar1: None, Apgar5: None, Living: None, Comments: None Previous history: Prior : never History of 4th degree laceration: No History of shoulder dystocia: No History of Hypertensive disorders including pre-eclampsia, chronic hypertension or gestational hypertension: No History of gestational diabetes: No Patient's Risk Screening for delivery: Have you had a prior plata between 20w and 36w6d?: No MEDICAL/PSYCHOSOCIAL HISTORY: History of hemorrhage or bleeding concerns: No Thyroid Disease: No History of chronic hypertension: No History of pre-existing diabetes: No No results found for: ABORHD No weight on file for this encounter. History of abnormal pap: No Prior treatment for cervical dysplasia: none. History of STDs: None Tobacco use: occasional vaping Caffeine use: Yes-rarely has soda Drug use: No Alcohol use: No Multivitamin with Folic acid: Not taking Hoahaoism or heritage: No Would refuse blood transfusion if medically necessary: No Are you currently employed? 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 I don't have enough money to pay my bills: Often Within the past 12 months, have you worried that your food would run out before you had money to buy more: Never In the past 12 months, has lack of reliable transportation kept you from going to medical appointments or work, or from keeping things needed for daily living: Never In the past 12 months, have you had any concerns about having a place to live, or about the condition or quality of your housing: Never Are there any cultural or spiritual needs we should be aware of: No Depression/Anxiety Screening: denies symptoms of depression. OB Depression and Anxiety Screening- This Encounter (since 11/14/2022) Over the past 2 weeks have you felt down, depressed, or hopeless? Negative Over the past two weeks, have you felt little interest or pleasure in doing things?? Negative Feeling nervous, anxious or on edge 1-Several days Not being able to stop or control worrying 0-Not al all Anxiety Pre-Screening Total (If >/= 3 additional questions will be reviewed) 1 Genetic Screening: Partner present: Yes Patient verbalized knowledge of partner family health history: Yes Do you or your partner have any personal or family history of defects not previously discussed: No Do you have history of a complicated by anomaly, genetic condition, or demise: No ACOG Recommended Screening Screening for early gestational diabetes testing: Criteria for early testing requires elevated BMI plus one other risk factor: No weight on file for this encounter. (risk factor if > than 25 or 23 in Americans) Additional risk factors: First-degree relative with diabetes and Women with polycystic ovarian syndrome She does meet ACOG criteria for early gestational DM screening. Screening for low dose aspirin use for the prevention of pre-eclampsia: Low dose aspirin should be considered if the patient has one high or two moderate risk factors: High risk factors: None Moderate risk ractors: None She does not meet criteria for low dose ASA Marital Status:Committed relationship Partner: Name: Abrahan Mahoney Age: 25 Occupation: unemployed Gender: Male History of STDs: None PAST MEDICAL HISTORY Diagnosis Date ADHD (attention deficit hyperactivity disorder) Anemia Asthma Gastroparesis IBS (irritable bowel syndrome) PCOS (polycystic ovarian syndrome) Reactive airway disease inhaler use with URIs PAST SURGICAL HISTORY Procedure Laterality Date DANDC SUCTION 08/31/2021 Retained POC after 08/11/21 vaginal delivery REMOVAL GALLBLADDER REMOVE TONSILS/ADENOIDS,12+ Y/O 2017 (more content not included)...[facility]10-09-2023 History of Past illness Narrative* Problem Noted Date Diagnosed Date Resolved Date Nausea and vomiting in 11/15/2022 12/23/2022 Overview: 11/15/2022atient is complaining of nausea and occasional vomiting in . Dietary considerations discussed . Advised patient to call/come in if she is unable to keep any food or fluids down in a 24-hour period. bellrn documented as of this encounter (statuses as of 12/24/2022) [facility] History of Present illness Narrative* Luis Manuel Macias RN - 11/15/2022 12:54 PM EDT INITIAL OB ASSESSMENT OB Provider: Luis Manuel Macias RN HPI: Chana is a 21 year old White here to establish Obstetrical Care. Patient's last menstrual period was 03/23/2022 (approximate). from OB Dating Form. Cycles irregular-PCOS was unplanned (not prevented though)but accepted Complaints: None OB History T1 L1 SAB0 IAB0 Ectopic0 Multiple0 Live Births1 # 1 - Date: 08/11/21, Sex: Female, Weight: 6 lb 7 oz (2.92 kg), GA: 40w4d, Delivery: Vaginal, Spontaneous, Apgar1: 9, Apgar5: 9, Living: Living, Comments: retained products of conception- suction D&C 08/31/21, 1st degree midline labial and left labial lacerations, EBL 350mm # 2 - Date: None, Sex: None, Weight: None, GA: None, Delivery: None, Apgar1: None, Apgar5: None, Living: None, Comments: None Previous history: Prior : never History of 4th degree laceration: No History of shoulder dystocia: No History of Hypertensive disorders including pre-eclampsia, chronic hypertension or gestational hypertension: No History of gestational diabetes: No Patient's Risk Screening for delivery: Have you had a prior plata between 20w and 36w6d?: No MEDICAL/PSYCHOSOCIAL HISTORY: History of hemorrhage or bleeding concerns: No Thyroid Disease: No History of chronic hypertension: No History of pre-existing diabetes: No No results found for: ABORHD No weight on file for this encounter. History of abnormal pap: No Prior treatment for cervical dysplasia: none. History of STDs: None Tobacco use: occasional vaping Caffeine use: Yes-rarely has soda Drug use: No Alcohol use: No Multivitamin with Folic acid: Not taking Hoahaoism or heritage: No Would refuse blood transfusion if medically necessary: No Are you currently employed? 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 I don't have enough money to pay my bills: Often Within the past 12 months, have you worried that your food would run out before you had money to buy more: Never In the past 12 months, has lack of reliable transportation kept you from going to medical appointments or work, or from keeping things needed for daily living: Never In the past 12 months, have you had any concerns about having a place to live, or about the condition or quality of your housing: Never Are there any cultural or spiritual needs we should be aware of: No Depression/Anxiety Screening: denies symptoms of depression. OB Depression and Anxiety Screening- This Encounter (since 11/14/2022) Over the past 2 weeks have you felt down, depressed, or hopeless? Negative Over the past two weeks, have you felt little interest or pleasure in doing things? Negative Feeling nervous, anxious or on edge 1-Several days Not being able to stop or control worrying 0-Not al all Anxiety Pre-Screening Total (If >/= 3 additional questions will be reviewed) 1 Genetic Screening: Partner present: Yes Patient verbalized knowledge of partner family health history: Yes Do you or your partner have any personal or family history of defects not previously discussed: No Do you have history of a complicated by anomaly, genetic condition, or demise: No ACOG Recommended Screening Screening for early gestational diabetes testing: Criteria for early testing requires elevated BMI plus one other risk factor: No weight on file for this encounter. (risk factor if > than 25 or 23 in Americans) Additional risk factors: First-degree relative with diabetes and Women with polycystic ovarian syndrome She does meet ACOG criteria for early gestational DM screening. Screening for low dose aspirin use for the prevention of pre-eclampsia: Low dose aspirin should be considered if the patient has one high or two moderate risk factors: High risk factors: None Moderate risk ractors: None She does not meet criteria for low dose ASA Marital Status:Committed relationship Partner: Name: Abrahan Mahoney Age: 25 Occupation: unemployed Gender: Male History of STDs: None PAST MEDICAL HISTORY Diagnosis Date ADHD (attention deficit hyperactivity disorder) Anemia Asthma Gastroparesis IBS (irritable bowel syndrome) PCOS (polycystic ovarian syndrome) Reactive airway disease inhaler use with URIs PAST SURGICAL HISTORY Procedure Laterality Date D&C SUCTION 08/31/2021 Retained POC after 08/11/21 vaginal delivery REMOVAL GALLBLADDER REMOVE TONSILS/ADENOIDS,12+ Y/O 2018 Current Outpatient Medications Medication Sig Dispense Refill ondansetron orally disintegrating (ZOFRAN ODT) 4 mg disintegrating tablet TAKE 2 TABLETS BY MOUTH EVERY 8 HOURS NEEDED FOR NAUSEA ferrous sulfate 325 mg (65 mg iron) tablet Take by mouth. albuterol HFA (PROAIR HFA) 90 mcg/actuation inhaler Inhale 2 Puffs as instructed every 6 hours as needed. 18 g 0 vit/iron fum/folic ac ( 1 + 1 ORAL) Take by mouth. (Patient not taking: Reported on 11/15/2022) albuterol HFA (PROAIR HFA) 90 mcg/actuation inhaler Inhale 2 Puffs as instructed every 4 hours as needed. (Patient not taking: Reported on 08/19/2022) 1 Each 0 albuterol HFA (VENTOLIN HFA) 90 mcg/actuation inhaler Inhale 2 Puffs as instructed every 4 hours asneeded for Wheezing/Shortness of Breath. (Patient not taking: Reported on 08/21/2022) 1 Inhaler 0 No current facility-administered medications for this visit. Allergies As of Date: 11/15/2022 Allergen Noted Reaction SEASONAL ALLERGIES 11/30/2017 Cough, Other: See Comments, and Itching Fully Assessed 11/15/2022 Does patient have penicillin allergy: No documented in this encounterUniversity Hospitals Health System09-15-2023 NoteHNO ID: [id number] Author: Geeta Santo RN Service: ? Author Type: ? Type: Progress Notes Filed: 10/22/2022 9:57 AM Note Text: Records received from [facility] CUSTODIAL ENGINEER. Epic updated. Sent to medical records to scan into [employer] and copy in [facility] mailbox for 11/15/22 appointment. [facility] Santo [facility] History of Present illness Narrative* Geeta Santo RN - 10/22/2022 9:00 AM EDT Records received from [facility] CUSTODIAL ENGINEER. Epic updated. Sent to medical records to scan into [employer] Machine and copy in [facility] mailbox for 11/15/22 appointment. Geeta Santo RN documented in this encounterUniversity Hospitals Health System07-15-2023 NoteHNO ID: [id number] Author: Wilfrid Laura APRN.HEALTH TECHNICIAN Service: ? Author Type: Nurse Practitioner Type: Progress Notes Filed: 08/21/2022 11:06 AM Note Text: Subjective HPI Nontoxic-appearing 16-week female presents urgent care chief complaint sore throat chest congestion cough fatigue chills. Duration of symptoms 3 days. Associated symptoms listed above. States sister had similar signs and symptoms. No OTC medication use today. Denies any pain currently. Risk factors reactive airway disease vaping. Denies any fever body aches chills productive cough chest pain shortness of breath pleuritic pain hemoptysis nausea vomiting abdominal pain change in bowel or bladder habits. Past medical history prescription medication use and allergies reviewed. .Patient presents with: Cough: Sore throat, diarrhea, sob, chest pain x 3 days PAST MEDICAL HISTORY Diagnosis Date ADHD (attention deficit hyperactivity disorder) Reactive airway disease inhaler use with URIs PAST SURGICAL HISTORY Procedure Laterality Date REMOVE TONSILS/ADENOIDS,12+ Y/O 2017 ALLERGIES Patient has no known allergies. MEDICATIONS albuterol HFA (PROAIR HFA) 90 mcg/actuation inhaler Inhale 2 Puffs as instructed every 4 hours as needed. (Patient not taking: Reported on 08/19/2022) albuterol HFA (VENTOLIN HFA) 90 mcg/actuation inhaler Inhale 2 Puffs as instructed every 4 hours as needed for Wheezing/Shortness of Breath. (Patient not taking: Reported on 08/21/2022) History reviewed. No pertinent family history. Social History Tobacco Use Smoking status: Former Types: Cigarettes Passive exposure: Past Smokeless tobacco: Never Tobacco comments: vape Substance Use Topics Alcohol use: Never Drug use: Never BP 118/64 Pulse 86 Temp 36.6 ?C (97.9 ?F) Resp 21 Wt 83.7 kg (184 lb 9.6 oz) LMP (LMP Unknown) SpO2 98% BMI 30.72 kg/m? Review of Systems Constitutional: Positive for chills. Negative for fever and malaise/fatigue. HENT: Positive for congestion and sore throat. Negative for ear discharge, ear pain and sinus pain. Eyes: Negative for blurred vision, pain, discharge and redness. Respiratory: Positive for cough. Negative for hemoptysis, sputum production, shortness of breath, wheezing and stridor. Cardiovascular: Negative for chest pain. Gastrointestinal: Negative for abdominal pain, diarrhea, nausea and vomiting. Musculoskeletal: Positive for myalgias. Skin: Negative for itching and rash. Neurological: Negative for dizziness and headaches. Objective Physical Exam Constitutional: General: She is not in acute distress. Appearance: She is not diaphoretic. HENT: Head: Normocephalic. Jaw: No trismus, tenderness, swelling or pain on movement. Nose: Congestion present. Mouth/Throat: Mouth: Mucous membranes are moist. Pharynx: Oropharynx is clear. Uvula midline. No pharyngeal swelling, oropharyngeal exudate, posterior oropharyngeal erythema or uvula swelling. Eyes: Conjunctiva/sclera: Conjunctivae normal. Pupils: Pupils are equal, round, and reactive to light. Cardiovascular: Rate and Rhythm: Normal rate and regular rhythm. Heart sounds: Normal heart sounds. Pulmonary: Effort: Pulmonary effort is normal. No tachypnea, accessory muscle usage or respiratory distress. Breath sounds: No stridor. Wheezing present. No rhonchi or rales. Abdominal: General: There is no distension. Palpations: Abdomen is soft. Tenderness: There is no abdominal tenderness. There is no guarding or rebound. Musculoskeletal: Cervical back: Normal range of motion and neck supple. No edema, erythema, rigidity or tenderness. No pain with movement. Normal range of motion. Lymphadenopathy: Cervical: No cervical adenopathy. Skin: General: Skin is warm and dry. Neurological: Mental Status: She is alert and oriented to person, place, and time. ASSESSMENT/PLAN: 1. Sore throat - ICD9: 462, ICD10: J02.9 (primary diagnosis) - STREP A MOLECULAR (POC) - COVID WITH FLUA+B, ROUTINE 2. Viral illness - ICD9: 079.99, ICD10: B34.9 - Discussed viral etiology and rationale for treatment. - Rapid strep negative in office today - Symptomatic treatment with prn analgesia - Supportive care with fluids and rest - COVID WITH FLUA+B, ROUTINE Albuterol sent to pharmacy. Red flags proper elevation discussed. Patient will follow up with primary care provider as needed. Patient was instructed to immediately proceed to emergency room for any new, worsening, or symptoms lasting longer than anticipated. The patient's clinical presentation is otherwise unremarkable at this time. Based on exam and clinical finding, the patient is stable for discharge. Plan of care was discussed with patient. Patient verbalizes understanding and agrees to plan of care. This note was generated using Daio software. It may contain errors in wording, punctuation, or spelling. Wilfrid Laura APR (more content not included)...[facility] 08-21-2022 Instructions* Patient Instructions* Wilfrid Laura, HVAC SERVICES PROFESSIONAL.[facility] - 08/21/2022 11:00 AM EDT How to Manage Common Symptoms Associated with COVID for Adults Fever- Fever is a temperature over 100.4 F and can occur when the body is fighting an infection. Tohelp treat a fever: Drink plenty of fluids and stay well hydrated. Eat small amounts of easy to digest food. Rest. Your body needs rest to recover, but getting up and moving around the house frequently is a good idea. You should try to continue doing your normal daily activities (bathing, toileting, grooming, cooking), though you will probably feel tired, and need to rest often. Avoid any heavy activity or exercise, as this will increase your body temperature. Dress in light clothing and stay covered in a light sheet. Keep the room temperature cool. Take a slightly warm (not cold or cool) bath, or apply damp washcloths to the forehead and wrists. Cough- Cough is a common symptom associated with COVID and can be bothersome. To help treat a cough: Stay well hydrated. Try warm water or tea with lemon and/or honey to help soothe the cough. Use a humidifier to add moisture to the air. Try a product with menthol, like a cough drop or a rub for your chest such as Vicks, which can helpreduce cough. Try cough drops. Avoid smoking and other strong odors or perfumes. Try breathing exercises to keep your lungs open and clear. Take a big deep breath through your noseand hold for 5 seconds before slowly releasing. Repeat frequently, while you are awake. Congestion- Runny nose or nasal congestion can occur with COVID. Treatment can help relieve symptoms: Try OTC nasal saline spray, or nasal saline rinse to relieve mucus congestion. Nasal strips can help keep nasal passages open, to increase airflow. Elevating your head with an extra pillow in bed can help reduce congestion. Using a humidifier can increase moisture in the air, and make breathing easier. Sore Throat- Another common symptom with COVID, can be managed at home by: Stay well hydrated. Gargle with salt water - mix teaspoon salt with 1 cup of warm water and gargle. This helps to loosen mucus in the back of the throat and may reduce discomfort. Try ice chips, popsicles or lozenges to soothe the throat. Nausea/Vomiting/Diarrhea- These are common symptoms, and staying hydrated is most important. If you are nauseous or vomiting, start with small sips of water every 10-15 minutes and increase astolerated. You can try sucking an ice cube too. If tolerating, you can try pedialyte or Gatorade, or flat sprite or otis-wild. Start slowly and increase as you are able to. Instead of meals, try smaller, more frequent snacks. Try eating bland foods like crackers, toast, rice, and applesauce. Avoid spicy, greasy or fried foods and dairy containing foods. Even if you aren't feeling hungry due to lack of smell or taste, it is important to try to take in some food when you are able. After drinking and eating, rest in an upright position for up to two hours as needed to help decrease nauseous feelings. Try closing your eyes, avoid moving and watching TV. Avoid strong odors that can make you feel more nauseated. When to seek emergency medical attention Look for emergency warning signs for COVID-19. If having any of these symptoms, seek emergency medical care immediately: Trouble breathing Persistent pain or pressure in the chest New confusion Inability to wake or stay awake Bluish lips or face *This list is not all possible symptoms. Please call your medical provider for any other symptoms that are severe or concerning to you. documented in this encounterUniversity Hospitals Health System07-15-2023 History of Present illness Narrative* Wilfrid Laura APRN.[facility] - 08/21/2022 10:38 AM EDT Subjective HPI Nontoxic-appearing 16-week female presents urgent care chief complaint sore throat chest congestion cough fatigue chills. Duration of symptoms 3 days. Associated symptoms listed above. States sister had similar signs and symptoms. No OTC medication use today. Denies any pain currently. Risk factors reactive airway disease vaping. Denies any fever body aches chills productive cough chest pain shortness of breath pleuritic pain hemoptysis nausea vomiting abdominal pain change in bowel orbladder habits. Past medical history prescription medication use and allergies reviewed. .Patient presents with: Cough: Sore throat, diarrhea, sob, chest pain x 3 days PAST MEDICAL HISTORY Diagnosis Date ADHD (attention deficit hyperactivity disorder) Reactive airway disease inhaler use with URIs PAST SURGICAL HISTORY Procedure Laterality Date REMOVE TONSILS/ADENOIDS,12+ Y/O 2017 ALLERGIES Patient has no known allergies. MEDICATIONS albuterol HFA (PROAIR HFA) 90 mcg/actuation inhaler Inhale 2 Puffs as instructed every 4 hours as needed. (Patient not taking: Reported on 08/19/2022) albuterol HFA (VENTOLIN HFA) 90 mcg/actuation inhaler Inhale 2 Puffs as instructed every 4 hours asneeded for Wheezing/Shortness of Breath. (Patient not taking: Reported on 08/21/2022) History reviewed. No pertinent family history. Social History Tobacco Use Smoking status: Former Types: Cigarettes Passive exposure: Past Smokeless tobacco: Never Tobacco comments: vape Substance Use Topics Alcohol use: Never Drug use: Never BP 118/64 Pulse 86 Temp 36.6 C (97.9 F) Resp 21 Wt 83.7 kg (184 lb 9.6 oz) LMP (LMP Unknown) SpO2 98% BMI 30.72 kg/m Review of Systems Constitutional: Positive for chills. Negative for fever and malaise/fatigue. HENT: Positive for congestion and sore throat. Negative for ear discharge, ear pain and sinus pain. Eyes: Negative for blurred vision, pain, discharge and redness. Respiratory: Positive for cough. Negative for hemoptysis, sputum production, shortness of breath, wheezing and stridor. Cardiovascular: Negative for chest pain. Gastrointestinal: Negative for abdominal pain, diarrhea, nausea and vomiting. Musculoskeletal: Positive for myalgias. Skin: Negative for itching and rash. Neurological: Negative for dizziness and headaches. Objective Physical Exam Constitutional: General: She is not in acute distress. Appearance: She is not diaphoretic. HENT: Head: Normocephalic. Jaw: No trismus, tenderness, swelling or pain on movement. Nose: Congestion present. Mouth/Throat: Mouth: Mucous membranes are moist. Pharynx: Oropharynx is clear. Uvula midline. No pharyngeal swelling, oropharyngeal exudate, posterior oropharyngeal erythema or uvula swelling. Eyes: Conjunctiva/sclera: Conjunctivae normal. Pupils: Pupils are equal, round, and reactive to light. Cardiovascular: Rate and Rhythm: Normal rate and regular rhythm. Heart sounds: Normal heart sounds. Pulmonary: Effort: Pulmonary effort is normal. No tachypnea, accessory muscle usage or respiratory distress. Breath sounds: No stridor. Wheezing present. No rhonchi or rales. Abdominal: General: There is no distension. Palpations: Abdomen is soft. Tenderness: There is no abdominal tenderness. There is no guarding or rebound. Musculoskeletal: Cervical back: Normal range of motion and neck supple. No edema, erythema, rigidity or tenderness. No pain with movement. Normal range of motion. Lymphadenopathy: Cervical: No cervical adenopathy. Skin: General: Skin is warm and dry. Neurological: Mental Status: She is alert and oriented to person, place, and time. ASSESSMENT/PLAN: 1. Sore throat - ICD9: 462, ICD10: J02.9 (primary diagnosis) - STREP A MOLECULAR (POC) - COVID WITH FLUA+B, ROUTINE 2. Viral illness - ICD9: 079.99, ICD10: B34.9 - Discussed viral etiology and rationale for treatment. - Rapid strep negative in office today - Symptomatic treatment with prn analgesia - Supportive care with fluids and rest - COVID WITH FLUA+B, ROUTINE Albuterol sent to pharmacy. Red flags proper elevation discussed. Patient will follow up with primary care provider as needed. Patient was instructed to immediately proceed to emergency room for any new, worsening, or symptoms lasting longer than anticipated. The patient's clinical presentation is o therwise unremarkable at this time. Based on exam and clinical finding, the patient is stable for discharge. Plan of care was discussed with patient. Patient verbalizes understanding and agrees to plan of care. This note was generated using [employer] software. It may contain errors in wording, punctuation, or spelling. Wilfrid Laura APRN.SB documented in this encounterUniversity Hospitals Health System07-13-2023 NoteHNO ID: [id number] Author: Lyric Carney APRN.CNP Service: ? Author Type: Nurse Practitioner Type: Progress Notes Filed: 08/19/2022 4:28 PM Note Text: This is a 21 year old female who presents today with: Patient presents with: Pain: Pt reported 16 wk gestation lower back pain radiating to pelvic region, burning with urination x2 days. HISTORY OF PRESENT ILLNESS: Chana De La O is a 21 year old female. Patient presents with: Pain: Pt reported 16 wk gestation lower back pain radiating to pelvic region, burning with urination x2 days. Mid back pain that radiates to the left abdomen. Started 2 days ago but seems to be progressing. 16 weeks , following with Dr. Mike Rodriguez COMPENSATION ADVISOR. Last appt about 1 month, seeing tomorrow. Pain is sharp 6-7/10, waxes and wanes. Worse with sitting and certain positions. No history of kidney stones or urinary symptoms/Fever, or chills. BM's regular. PAST MEDICAL HISTORY: PAST MEDICAL HISTORY Diagnosis Date ADHD (attention deficit hyperactivity disorder) Reactive airway disease inhaler use with URIs PAST SURGICAL HISTORY Procedure Laterality Date REMOVE TONSILS/ADENOIDS,12+ Y/O 2017 ALLERGIES Patient has no known allergies. MEDICATIONS Current Outpatient Medications Medication Sig albuterol HFA (VENTOLIN HFA) 90 mcg/actuation inhaler Inhale 2 Puffs as instructed every 4 hours as needed for Wheezing/Shortness of Breath. albuterol HFA (PROAIR HFA) 90 mcg/actuation inhaler Inhale 2 Puffs as instructed every 4 hours as needed. (Patient not taking: Reported on 08/19/2022) No current facility-administered medications for this visit. No family history on file. Social History Tobacco Use Smoking status: Former Types: Cigarettes Smokeless tobacco: Never Tobacco comments: vape Substance Use Topics Alcohol use: Never Drug use: Never REVIEW OF SYSTEMS GENERAL: No weight loss, malaise or fevers/chills HEENT: Negative for frequent or significant headaches, No changes in hearing or vision. NECK: Negative for lumps, goiter, pain and significant neck swelling RESPIRATORY: Negative for cough, hemoptysis, wheezing, dyspnea or shortness of breath CARDIOVASCULAR: Negative for chest pain, leg swelling, orthopnea, or palpitations GI: + Abdominal/back pain. : No history of dysuria, frequency or incontinence MUSCULOSKELETAL: Negative for joint pain or swelling. SKIN: Negative for lesions, rash, and itching ENDOCRINE: Negative for cold or heat intolerance, polyuria, polydipsia and goiter NEURO: No history of headaches, syncope, paralysis, seizures or tremors MOOD: Negative for depression, anxiety, or suicidal ideation. EXAM: BP 118/64 Pulse 86 Temp 36.4 ?C (97.6 ?F) (Temporal) Resp 18 Wt 85 kg (187 lb 6.4 oz) LMP (LMP Unknown) SpO2 99% BMI 31.18 kg/m? PHYSICAL EXAM: General Appearance: Well appearing, alert, in no acute distress, well-hydrated, well nourished. Skin: Skin color, texture, turgor normal, no suspicious rashes or lesions. Head: Normocephalic, no masses, lesions, tenderness or abnormalities. Eyes: Anicteric sclera. Extraocular movements are intact. Lungs: Lungs clear to auscultation. No wheezing, rhonchi, rales. Heart: RRR without murmur, gallop, or rubs. No ectopy. Abdomen: LUQ and epigastric tenderness with palpation. Abdomen soft. BSX4 normoactive. Extremities: No deformities, edema, skin discoloration, clubbing or cyanosis. Good capillary refill. Musculoskeletal: Mild tenderness noted to left side of low back (paraspinal), full ROM. Peripheral Pulses: Normal, Capillary refill <2secs, strong peripheral pulses, Pulses palpable. Neurologic: Gait normal. Sensation grossly intact. UA: + Leuks ASSESSMENT/PLAN: 1. Abdominal pain, unspecified abdominal location - ICD9: 789.00, ICD10: R10.9 (primary diagnosis) - Due history and exam recommend evaluation in the ER. 2. 16 weeks gestation of - ICD9: V22.2, ICD10: Z3A.16 - Same plan as #1. 3. Burning with urination - ICD9: 788.1, ICD10: R30.0 - Urine culture will be sent. - UA DIP, URINE (POC) - URINE CULTURE Follow up pending ER evaluation. Discussed treatment plan and patient voices understanding. Patient's questions answered appropriately. Medications and potential side effects were discussed and patient voices understanding. Lyric Carney APRN.CNP The patient indicates understanding of these issues and agrees with the plan.[facility]07-13-2023 Instructions* Patient Instructions* Lyric Carney APRN.CNP - 08/19/2022 4:19 PM EDT Recommend ER evaluation due to and current symptoms. Urine will be sent off for culture. Keep appointment tomorrow with COMPENSATION ADVISOR. documented in this encounterUniversity Hospitals Health System07-13-2023 History of Present illness Narrative* Lyric Carney APRN.CNP - 08/19/2022 4:12 PM EDT This is a 21 year old female who presents today with: Patient presents with: Pain: Pt reported 16 wk gestation lower back pain radiating to pelvic region, burning with urination x2 days. HISTORY OF PRESENT ILLNESS: Chana De La O is a 21 year old female. Patient presents with: Pain: Pt reported 16 wk gestation lower back pain radiating to pelvic region, burning with urination x2 days. Mid back pain that radiates to the left abdomen. Started 2 days ago but seems to be progressing. 16weeks , following with Dr. Mike Rodriguez COMPENSATION ADVISOR. Last appt about 1 month, seeing tomorrow. Painis sharp 6-7/10, waxes and wanes. Worse with sitting and certain positions. No history of kidney stones or urinary symptoms/Fever, or chills. BM's regular. PAST MEDICAL HISTORY: PAST MEDICAL HISTORY Diagnosis Date ADHD (attention deficit hyperactivity disorder) Reactive airway disease inhaler use with URIs PAST SURGICAL HISTORY Procedure Laterality Date REMOVE TONSILS/ADENOIDS,12+ Y/O 2017 ALLERGIES Patient has no known allergies. MEDICATIONS Current Outpatient Medications Medication Sig albuterol HFA (VENTOLIN HFA) 90 mcg/actuation inhaler Inhale 2 Puffs as instructed every 4 hours asneeded for Wheezing/Shortness of Breath. albuterol HFA (PROAIR HFA) 90 mcg/actuation inhaler Inhale 2 Puffs as instructed every 4 hours as needed. (Patient not taking: Reported on 08/19/2022) No current facility-administered medications for this visit. No family history on file. Social History Tobacco Use Smoking status: Former Types: Cigarettes Smokeless tobacco: Never Tobacco comments: vape Substance Use Topics Alcohol use: Never Drug use: Never REVIEW OF SYSTEMS GENERAL: No weight loss, malaise or fevers/chills HEENT: Negative for frequent or significant headaches, No changes in hearing or vision. NECK: Negative for lumps, goiter, pain and significant neck swelling RESPIRATORY: Negative for cough, hemoptysis, wheezing, dyspnea or shortness of breath CARDIOVASCULAR: Negative for chest pain, leg swelling, orthopnea, or palpitations GI: + Abdominal/back pain. : No history of dysuria, frequency or incontinence MUSCULOSKELETAL: Negative for joint pain or swelling. SKIN: Negative for lesions, rash, and itching ENDOCRINE: Negative for cold or heat intolerance, polyuria, polydipsia and goiter NEURO: No history of headaches, syncope, paralysis, seizures or tremors MOOD: Negative for depression, anxiety, or suicidal ideation. EXAM: BP 118/64 Pulse 86 Temp 36.4 C (97.6 F) (Temporal) Resp 18 Wt 85 kg (187 lb 6.4 oz) LMP (LMP Unknown) SpO2 99% BMI 31.18 kg/m PHYSICAL EXAM: General Appearance: Well appearing, alert, in no acute distress, well-hydrated, well nourished. Skin: Skin color, texture, turgor normal, no suspicious rashes or lesions. Head: Normocephalic, no masses, lesions, tenderness or abnormalities. Eyes: Anicteric sclera. Extraocular movements are intact. Lungs: Lungs clear to auscultation. No wheezing, rhonchi, rales. Heart: RRR without murmur, gallop, or rubs. No ectopy. Abdomen: LUQ and epigastric tenderness with palpation. Abdomen soft. BSX4 normoactive. Extremities: No deformities, edema, skin discoloration, clubbing or cyanosis. Good capillary refill. Musculoskeletal: Mild tenderness noted to left side of low back (paraspinal), full ROM. Peripheral Pulses: Normal, Capillary refill <2secs, strong peripheral pulses, Pulses palpable. Neurologic: Gait normal. Sensation grossly intact. UA: + Leuks ASSESSMENT/PLAN: 1. Abdominal pain, unspecified abdominal location - ICD9: 789.00, ICD10: R10.9 (primary diagnosis) - Due history and exam recommend evaluation in the ER. 2. 16 weeks gestation of - ICD9: V22.2, ICD10: Z3A.16 - Same plan as #1. 3. Burning with urination - ICD9: 788.1, ICD10: R30.0 - Urine culture will be sent. - UA DIP, URINE (POC) - URINE CULTURE Follow up pending ER evaluation. Discussed treatment plan and patient voices understanding. Patient's questions answered appropriately. Medications and potential side effects were discussed and patient voices understanding. Lyric Carney APRN.SB The patient indicates understanding of these issues and agrees with the plan. documented in this encounterUniversity Hospitals Health System04-26-2023 NoteHNO ID: [id number] Author: Wilfrid Laura APRN.CNP Service: ? Author Type: Nurse Practitioner Type: Progress Notes Filed: 06/02/2022 2:27 PM Note Text: Nontoxic-appearing female presents urgent care chief complaint lightheadedness and head pain dizziness. Duration of symptoms 2 days. Associated symptoms listed above. Patient states symptoms have been staying the same or worsening. Describes dizziness as ongoing. She has not had any resolution since symptoms started 2 days ago. States her vision gets black at times. She does have a headache associated with it. With patient's presenting symptoms I recommend patient be seen in the ED for further evaluation care. Patient verbalized understand agrees with plan of care. Wilfrid Laura APRN.CNPFairfield Medical Center04-26-2023 History of Present illness Narrative* Wilfrid Laura APRN.CNP - 06/02/2022 2:10 PM EDT Nontoxic-appearing female presents urgent care chief complaint lightheadedness and head pain dizziness. Duration of symptoms 2 days. Associated symptoms listed above. Patient states symptoms have been staying the same or worsening. Describes dizziness as ongoing. She has not had any resolution since symptoms started 2 days ago. States her vision gets black at times. She does have a headache associated with it. With patient's presenting symptoms I recommend patient be seen in the ED for further evaluation care. Patient verbalized understand agrees with plan of care. Wilfrid Laura APRN.SB documented in this encounterUniversity Hospitals Health System11-18-2022 Hospital Discharge instructions Patient Education 12/25/2021 11:27:58 Abdominal Pain Abdominal Pain Abdominal pain is pain in the stomach or belly area. Everyone has this pain from time to time. In many cases it goes away on its own. But abdominal pain can sometimes be due to a serious problem, such as appendicitis. So it s important to know when to get help. Causes of abdominal pain There are many possible causes of abdominal pain. Common causes in adults include: Constipation, diarrhea, or gas Stomach acid flowing back up into the esophagus (acid reflux or heartburn) Severe acid reflux, called GERD (gastroesophageal reflux disease) A sore in the lining of the stomach or small intestine (peptic ulcer) Inflammation of the gallbladder, liver, or pancreas Gallstones or kidney stones Appendicitis Intestinal blockage An internal organ pushing through a muscle or other tissue (hernia) Urinary tract infections In women, menstrual cramps, fibroids, ovarian cysts, pelvic inflammatory disease, or endometriosis Inflammation or infection of the intestines, including Crohn's disease and ulcerative colitis Irritable bowel syndrome Diagnosing the cause of abdominal pain Your healthcare provider will give you a physical exam help find the cause of your pain. If needed,you will have tests. Belly pain has many possible causes. So it can be hard to find the reason for your pain. Giving details about your pain can help. Tell your provider where and when you feel the pain, and what makes it better or worse. Also let your provider know if you have other symptoms such as: Fever Tiredness Upset stomach (nausea) Vomiting Changes in bathroom habits Blood in the stool or black, tarry stool Weight loss that you can't explain (involuntary weight loss?) Also report any family history of stomach or intestinal problems, or cancers. Tell your provider about all your alcohol use and drug use. Tell your provider about all medicines you use, including herbs, vitamins, and supplements. Treating abdominal pain Some causes of pain need emergency medical treatment right away. These include appendicitis or a bowel blockage. Other problems can be treated with rest, fluids, or medicines. Your healthcare provider can give you specific instructions for treatment or self-care based on what is causing your pain. If you have vomiting or diarrhea, sip water or other clear fluids. When you are ready to eat solid foods again, start with small amounts of waib-bz-nzovfc, low- fat foods. These include apple sauce, toast, or crackers. When to get medical care Call 911 or go to the hospital right away if you: Can t pass stool and are vomiting Are vomiting blood or have bloody diarrhea or black, tarry diarrhea Have chest, neck, or shoulder pain Feel like you might pass out Have pain in your shoulder blades with nausea Have sudden, severe belly pain Have new, severe pain unlike any you have felt before Have a belly that is rigid, hard, and hurts to touch Call your healthcare provider if you have: Pain for more than 5 days Bloating for more than 2 days Diarrhea for more than 5 days A fever of 100.4 F (38 C) or higher, or as directed by your healthcare provider Pain that gets worse Weight loss for no reason Continued lack of appetite Blood in your stool How to prevent abdominal pain Here are some tips to help prevent abdominal pain: Eat smaller amounts of food at each meal. Don't eat greasy, fried, or other high-fat foods. Don't eat foods that give you gas. Exercise regularly. Drink plenty of fluids. To help prevent GERD symptoms: Quit smoking. Reduce alcohol and foods that increase stomach acid. Don't use aspirin or hrnl-uvj-kcbauck pain and fever medicines, if possible. This includes nonsteroidal anti-inflammatory drugs (NSAIDs). Lose excess weight. Finish eating at least 2 hours before you go to bed or lie down. Raise the head of your bed. [id number] [employer]. [address] [place] [address], [place] [address]. All rights reserved. This information is not intended as a substitute for professional medical care. Always follow yourhealthcare professional's instructions. Follow Up Care 12/25/2021 09:25:21 With:Follow up with primary care provider Address:Unknown When:2-4 days [facility] Padilla 11-18-2022 Emergency department Discharge summary Discharge Instructions Thank you for allowing [facility] to assist you with your healthcare needs. The following is importantdischarge information regarding your hospital visit. Diagnosis from Today's Visit Abdominal pain Ovarian cyst Abdominal pain What to Do Next Instructions from Your Care Team Suspected small 2.2 cm dermoid in the right ovary. Consider follow-up MRI for confirmation No qualifying data available. Post Acute Orders No qualifying data available. You Need to Schedule the Following Appointments Follow Up with Follow up with primary care provider When Within 2-4 days Allergies NKA Medications Please ask your primary doctor or pharmacist before taking any other medication not listed, including over the counter drugs, herbal medications, vitamins and or supplements as they may interact withyour home medications. What How Much When Why Instructions Last Dose New dicyclomine (Bentyl use dicyclomine ) 20 Milligram by mouth Four (4) times a day Abdominal pain Ovarian cyst Duration: 7 Days Printed Prescription Please take this list to your next doctor s visit. Bring all medications you take, including over the counter medications, herbals and other supplements with you to your doctor s visit. Patients and families are reminded to discard old lists and to update any records with all medication providers or retail pharmacies. Education Materials Abdominal Pain Abdominal pain is pain in the stomach or belly area. Everyone has this pain from time to time. In many cases it goes away on its own. But abdominal pain can sometimes be due to a serious problem, such as appendicitis. So it s important to know when to get help. Causes of abdominal pain There are many possible causes of abdominal pain. Common causes in adults include: Constipation, diarrhea, or gas Stomach acid flowing back up into the esophagus (acid reflux or heartburn) Severe acid reflux, called GERD (gastroesophageal reflux disease) A sore in the lining of the stomach or small intestine (peptic ulcer) Inflammation of the gallbladder, liver, or pancreas Gallstones or kidney stones Appendicitis Intestinal blockage An internal organ pushing through a muscle or other tissue (hernia) Urinary tract infections In women, menstrual cramps, fibroids, ovarian cysts, pelvic inflammatory disease, or endometriosis Inflammation or infection of the intestines, including Crohn's disease and ulcerative colitis Irritable bowel syndrome Diagnosing the cause of abdominal pain Your healthcare provider will give you a physical exam help find the cause of your pain. If needed,you will have tests. Belly pain has many possible causes. So it can be hard to find the reason for your pain. Giving details about your pain can help. Tell your provider where and when you feel the pain, and what makes it better or worse. Also let your provider know if you have other symptoms such as: Fever Tiredness Upset stomach (nausea) Vomiting Changes in bathroom habits Blood in the stool or black, tarry stool Weight loss that you can't explain (involuntary weight loss?) Also report any family history of stomach or intestinal problems, or cancers. Tell your provider about all your alcohol use and drug use. Tell your provider about all medicines you use, including herbs, vitamins, and supplements. Treating abdominal pain Some causes of pain need emergency medical treatment right away. These include appendicitis or a bowel blockage. Other problems can be treated with rest, fluids, or medicines. Your healthcare provider can give you specific instructions for treatment or self-care based on what is causing your pain. If you have vomiting or diarrhea, sip water or other clear fluids. When you are ready to eat solid foods again, start with small amounts of pzxw-kh-dwzdhh, low- fat foods. These include apple sauce, toast, or crackers. When to get medical care Call 911 or go to the hospital right away if you: Can t pass stool and are vomiting Are vomiting blood or have bloody diarrhea or black, tarry diarrhea Have chest, neck, or shoulder pain Feel like you might pass out Have pain in your shoulder blades with nausea Have sudden, severe belly pain Have new, severe pain unlike any you have felt before Have a belly that is rigid, hard, and hurts to touch Call your healthcare provider if you have: Pain for more than 5 days Bloating for more than 2 days Diarrhea for more than 5 days A fever of 100.4 F (38 C) or higher, or as directed by your healthcare provider Pain that gets worse Weight loss for no reason Continued lack of appetite Blood in your stool How to prevent abdominal pain Here are some tips to help prevent abdominal pain: Eat smaller amounts of food at each meal. Don't eat greasy, fried, or other high-fat foods. Don't eat foods that give you gas. Exercise regularly. Drink plenty of fluids. To help prevent GERD symptoms: Quit smoking. Reduce alcohol and foods that increase stomach acid. Don't use aspirin or ziyg-myh-dwysnhw pain and fever medicines, if possible. This includes nonsteroidal anti-inflammatory drugs (NSAIDs). Lose excess weight. Finish eating at least 2 hours before you go to bed or lie down. Raise the head of your bed. 9550-1075 [employer]. [address] [place] [address]. All rights reserved. This information is not intended as a substitute for professional medical care. Always follow yourhealthcare professional's instructions. Additional Information VACCINATE! IT SAVES LIVES! Members of the community who have not yet received the COVID-19 vaccine and would like to receive it can visit one of [facility] vaccine clinics. There are many vaccine clinic locations within the [facility]. For locations and available times, please visit [email or web address]. It is important to note that some COVID mobile vaccine clinics are held outdoors and may be canceled in rainy orstormy conditions. To learn more about pediatric vaccinations (ages 5-11), we invite you to visit the [facility] webpage. [email or web address] learn more about the COVID-19 vaccine, we invite you to visit the [place] website for a list of frequently asked questions. [email or web address] [facility] Patient Portal Access Instructions: Stay connected with your healthcare team and access your personal medical information anytime with the [facility] Patient Portal. If you would like a full copy of your medical records please contact the [facility] Medical Records Department Tuesday through Tuesday between 8a.m. and 4:30p.m. Please follow the directions below to access the portal: 1.Access the email account you provided upon registration to the [facility].2.Look for an invitation email from [facility].3.Open the email and access the invitation link: Accept Invitation to [facility]4.Fill in the required solis to create your account. Sign into www.[facility] with your username and password that you created in the above steps to stay up to date. You can then view a summary of results, a summary of your visits, and the ability to download your summaries to your computer or send the information securely to a physician. Remember that your healthcare information is confidential, so carefully consider who you will allow to register on the [facility] Patient Portal for access to your information. You can also access the [facility] Patient Portal on the [employer]. Simply click on Health Records under [employer] [place] and then click on the K[employer]FT[employer] logo. HOW TO SAFELY DISPOSE OF PRESCRIPTION MEDICATIONS Please use one of the following methods to safely dispose of your unused medications. 1.Use a drug disposal kit: the drug disposal pouch allows you to safely discard your old and unuseddrugs. Ask your nurse to give you one when you are discharged.2.Visit a local take-back location: Many local pharmacies and police departments have programs that collect old and unwanted prescriptiondrugs. Call your local pharmacy or go to http://Jellynote.Highfive/8M5Ij9f to find one close to you.3.Make use of household items: Use cat litter or old coffee grounds to dispose medications if other options arenot available. Mix your drugs with these household products, seal them in an airtight container andthrow it into the garbage. Call [facility]: [phone] to be sure your drugs can be disposed of in this way. Some medicines may require a different approach.4.Never flush your medications down the toilet. IF YOU HAVE BEEN PRESCRIBED AN OPIOIDS FOR PAIN If you have been prescribed an opioid (such as hydrocodone, oxycodone or morphine), it is critical to understand the possible side effects and risks of opioid pain medications. Even when taken as directed, opioids can have several side effects including: Tolerance, meaning you might need to take more of a medication for the same pain relief. Nausea, vomiting and/or constipation. Sleepiness, dizziness, dry mouth, confusion, depression or itching. Physical dependence, meaning you have withdrawal symptoms when a medication is stopped ? this can develop within a few days. KNOW YOUR RESPONSIBILITIES It is important to know exactly how much and how often to take the opioid pain medications you are prescribed. Never take opioids in higher amounts or more often than prescribed. Do not combine opioids with alcohol or other drugs that cause drowsiness, such as benzodiazepines, also known as benzos,including diazepam and alprazolam, muscle relaxants or sleep aids. Never sell or share prescriptionopioids. This is illegal. Store opioids in a secure place and out of reach of others (including children, family, friends and visitors). The last page(s) of this document has been signed and retained as a CHART COPY Signatures Patient Education Materials Abdominal Pain Medication Leaflets My discharge plan and instructions have been reviewed and explained to me and I,CHANA DE LA O understand my current condition and have read and understand these discharge instructions. I have received a written copy of the plan/instructions. If I have questions, I am aware that I should contact my d octor. 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 Multiplanar reformatted images are provided for review. Automated exposure control, iterative reconstruction, and/or weight based adjustment of the mA/kV was utilized to reduce the radiation dose to as low as reasonably achievable. COMPARISON: None HISTORY: ORDERING SYSTEM PROVIDED HISTORY: Reason for Exam: Abdominal pain. Vomiting bile symptoms since cholecystectomy in August. FINDINGS: The included lung bases are clear. There is no visible pleural or pericardial effusion. The heart is normal in size. Liver and gallbladder: The liver is normal in contour. There are no suspicious hepatic lesions visualized. The intra and extrahepatic biliary ducts are nondilated. Status post cholecystectomy. Spleen: No splenomegaly. Pancreas: The main pancreatic duct is nondilated. There are no suspicious pancreatic lesions visualized. Adrenal glands: The adrenal glands are normal in appearance. Kidneys, ureters, and bladder: There are no suspicious renal lesions visualized. There are no visualized renal calculi. The ureters are normal in course and caliber. The urinary bladder is partially collapsed. The large and small bowel demonstrate no obstruction. Portions of the transverse colon and small bowel partially collapsed. The appendix is normal. No free intraperitoneal fluid or gas is identified. There is a right ovarian lesions suspected on image 101. This lesion appears to contain fat is approximately 2.2 cm. Trace free fluid noted in the pelvis. The abdominal aorta is normal in caliber. There is no abdominal/pelvic lymphadenopathy. Sclerotic foci seen in left femoral head, left trochanteric region the femur, and bilateral iliac bones most likely represent benign bone islands. There is no acute fracture or aggressive osseous lesion. IMPRESSION: No acute abdominal/pelvic process. 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 Consider follow-up MRI for confirmation I have personally reviewed the images of this examination and agree with the resident's findings and interpretation. Interpreted by: Christian Nicole MD Preliminary Report By: Isabell Aragon Electronically signed By Christian Nicole MD Dictated Date: 12/25/2021 10:36:17 AM Prelim Date: 12/25/2021 11:18:46 AM Sign Date: 12/25/2021 11:18:46 AM [facility]ing [facility] Note ORIGINAL EXAMINATION: CT OF THE ABDOMEN AND PELVIS WITHOUT OBEHTDXA23/18/2022 10:28 am TECHNIQUE: CT of the abdomen and pelvis was performed without the administration of intravenous contrast. Multiplanar reformatted images are provided for review. Automated exposure control, iterative reconstruction, and/or weight based adjustment of the mA/kV was utilized to reduce the radiation dose to as low as reasonably achievable. COMPARISON: None HISTORY: ORDERING SYSTEM PROVIDED HISTORY: Reason for Exam: Abdominal pain. Vomiting bile symptoms since cholecystectomy in August. FINDINGS: The included lung bases are clear. There is no visible pleural or pericardial effusion. The heart is normal in size. Liver and gallbladder: The liver is normal in contour. There are no suspicious hepatic lesions visualized. The intra and extrahepatic biliary ducts are nondilated. Status post cholecystectomy. Spleen: No splenomegaly. Pancreas: The main pancreatic duct is nondilated. There are no suspicious pancreatic lesions visualized. Adrenal glands: The adrenal glands are normal in appearance. Kidneys, ureters, and bladder: There are no suspicious renal lesions visualized. There are no visualized renal calculi. The ureters are normal in course and caliber. The urinary bladder is partially collapsed. The large and small bowel demonstrate no obstruction. Portions of the transverse colon and small bowel partially collapsed. The appendix is normal. No free intraperitoneal fluid or gas is identified. There is a right ovarian lesions suspected on image 101. This lesion appears to contain fat is approximately 2.2 cm. Trace free fluid noted in the pelvis. The abdominal aorta is normal in caliber. There is no abdominal/pelvic lymphadenopathy. Sclerotic foci seen in left femoral head, left trochanteric region the femur, and bilateral iliac bones most likely represent benign bone islands. There is no acute fracture or aggressive osseous lesion. IMPRESSION: No acute abdominal/pelvic process. 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 Consider follow-up MRI for confirmation I have personally reviewed the images of this examination and agree with the resident's findings and interpretation. Interpreted by: Christian Nicole MD Preliminary Report By: Isabell Aragon Electronically signed By Christian Nicole MD Dictated Date: 12/25/2021 10:36:17 AM Prelim Date: 12/25/2021 11:18:46 AM Sign Date: 12/25/2021 11:18:46 AM [facility] History of Present illness Narrative* Delmer Bradshaw, JESS.HEALTH TECHNICIAN - 12/09/2021 12:30 PM EDT Subjective HPI HPI Chana De La O is a 20 year old female who presents today for CC of st. This started 1 day ago. Has tried nothing for relief. Symptoms are worsened by nothing. Risk factors no known sick exposures. .Patient presents with: Sore Throat: X 1 day PAST MEDICAL HISTORY Diagnosis Date ADHD (attention deficit hyperactivity disorder) Reactive airway disease inhaler use with URIs PAST SURGICAL HISTORY Procedure Laterality Date REMOVE TONSILS/ADENOIDS,12+ Y/O 2017 ALLERGIES Patient has no known allergies. MEDICATIONS albuterol HFA (VENTOLIN HFA) 90 mcg/actuation inhaler Inhale 2 Puffs as instructed every 4 hours asneeded for Wheezing/Shortness of Breath. SPRINTEC 0.25-35 mg-mcg per tablet Take 1 tablet by mouth once daily. (Patient not taking: Reportedon 10/27/2021) No family history on file. Social History Tobacco Use Smoking status: Former Types: Cigarettes Smokeless tobacco: Never Tobacco comments: vape Substance Use Topics Alcohol use: Never Drug use: Never Review of Systems Constitutional: Negative for fever. HENT: Positive for congestion (chronic) and sore throat. Negative for ear pain and nosebleeds. Respiratory: Negative for cough, shortness of breath and wheezing. Musculoskeletal: Negative for neck pain. Objective Blood pressure 120/80, pulse 100, temperature 36.8 C (98.2 F), resp. rate 21, weight 91.3 kg (201 lb 3.2 oz), SpO2 99 %. Physical Exam Constitutional: General: She is not in acute distress. Appearance: She is not toxic-appearing or diaphoretic. HENT: Head: Normocephalic and atraumatic. Nose: Nose normal. Mouth/Throat: Lips: [place]. Mouth: Mucous membranes are moist. Pharynx: Uvula midline. Posterior oropharyngeal erythema present. No pharyngeal swelling or oropharyngeal exudate. Tonsils: No tonsillar exudate or tonsillar abscesses. Cardiovascular: Rate and Rhythm: Normal rate and regular rhythm. Heart sounds: Normal heart sounds, S1 normal and S2 normal. Pulmonary: Effort: Pulmonary effort is normal. No accessory muscle usage or respiratory distress. Breath sounds: Normal breath sounds. Lymphadenopathy: Cervical: No cervical adenopathy. Right cervical: No superficial cervical adenopathy. Left cervical: No superficial cervical adenopathy. Neurological: Mental Status: She is alert and oriented to person, place, and time. Gait: Gait is intact. ASSESSMENT/PLAN: 1. Sore throat - ICD9: 462, ICD10: J02.9 (primary diagnosis) - suspect viral - Alere Strep Test neg, no culture pending - Discussed supportive care treatment with fluids, rest and analgesia. - The patient should follow up in 3-5 days if symptoms persist or worsen - ALERE STREP A TEST (AG) 2. History of asthma - ICD9: V12.69, ICD10: Z87.09 Inhaler refilled. - ALBUTEROL SULFATE HFA 90 MCG/ACTUATION AEROSOL INHALER Agrees to plan Delmer Bradshaw APRN.CNP documented in this [facility]10-03-2022 Miscellaneous Notes* Telephone Encounter - Nilay Bernal MD - 11/09/2021 3:59 PM EDT Refill not appropriate through express care. documented in this [facility]09-20-2022 Instructions* Patient Instructions* Ansley Heller APRN.CNP - 10/27/2021 6:49 PM EDT R.I.C.E. The general care of your injury includes the following: Resting, Icing, Compressing and Elevating the injured area. Remember this as RICE. REST: Limit the use of the injured body part. ICE: By applying ice to the affected area, swelling and pain can be reduced. Place some ice cubes in a re-sealable (Ziploc) bag and add some water. Put a thin washcloth between the bag and your skin.Apply the ice bag to the area for at least 20 minutes. Do this at least 4 times per day. Using the ice for longer times and more frequently is OK. NEVER APPLY ICE DIRECTLY TO THE SKIN. COMPRESS: Compression means to apply pressure around the injured area such as with a splint, cast or an john bandage. Compression decreases swelling and improves comfort. Compression should be tight enough to relieve swelling but not so tight as to decrease circulation. Increasing pain, numbness, tingling, or change in skin color, are all signs of decreased circulation. ELEVATE: Elevate the injured part. For example, elevate your foot by placing it on a chair while sitting, or propping it up on pillows when lying down. [facility] History of Present illness Narrative* Ansley Heller, JESS.HEALTH TECHNICIAN - 10/27/2021 6:16 PM EDT This note was created using RescueTimeriter. Subjective Chana De La O is a 20 year old female. 20 year old female with no PMH presents with complaints of right hand pain. Acute onset 3 days ago Right hand Locates pain in 4th and 5th knuckle. States that she became upset, States Tuesday punched a wall Today punched a cabient when she became upset again Denies head injury. Denies neck or back pain Denies skin rash or lesions. Right hand dominant. The history is provided by the patient. No public health specialist was used. Musculoskeletal Problem This is a recurrent problem. The current episode started in the past 7 days. The problem occurs constantly. The problem has been waxing and waning. Pertinent negatives include no abdominal pain, anorexia, arthralgias, change in bowel habit, chest pain, chills, congestion, coughing, diaphoresis, fatigue, fever, headaches, joint swelling, myalgias, nausea, neck pain, numbness, rash, sore throat, swollen glands, urinary symptoms, vertigo, visual change, vomiting or weakness. Exacerbated by: touching, movement. She has tried nothing for the symptoms. The treatment provided no relief. PAST MEDICAL HISTORY Diagnosis Date ADHD (attention deficit hyperactivity disorder) Reactive airway disease inhaler use with URIs PAST SURGICAL HISTORY Procedure Laterality Date REMOVE TONSILS/ADENOIDS,12+ Y/O 2017 ALLERGIES Patient has no known allergies. MEDICATIONS albuterol HFA (VENTOLIN HFA) 90 mcg/actuation inhaler Inhale 2 Puffs as instructed every 4 hours asneeded for Wheezing/Shortness of Breath. benzonatate (TESSALON PERLES) 100 mg capsule Take 2 capsules by mouth three times daily as needed. SPRINTEC 0.25-35 mg-mcg per tablet Take 1 tablet by mouth once daily. (Patient not taking: Reportedon 10/27/2021) No family history on file. Social History Tobacco Use Smoking status: Former Types: Cigarettes Smokeless tobacco: Never Tobacco comments: vape Substance Use Topics Alcohol use: Never Drug use: Never Review of Systems Constitutional: Negative for chills, diaphoresis, fatigue and fever. HENT: Negative for congestion and sore throat. Eyes: Negative for pain, discharge and itching. Respiratory: Negative for apnea, cough, choking and chest tightness. Cardiovascular: Negative for chest pain. Gastrointestinal: Negative for abdominal pain, anorexia, change in bowel habit, nausea and vomiting. Musculoskeletal: Negative for arthralgias, joint swelling, myalgias and neck pain. Right hand pain Skin: Negative for rash. Allergic/Immunologic: Negative for environmental allergies, food allergies and immunocompromised state. Neurological: Negative for dizziness, vertigo, facial asymmetry, weakness, numbness and headaches. Hematological: Negative for adenopathy. Does not bruise/bleed easily. Psychiatric/Behavioral: Negative for agitation and behavioral problems. Objective BP 120/78 Pulse 91 Temp 37 C (98.6 F) Resp 18 Wt 85.9 kg (189 lb 6.4 oz) LMP (LMP Unknown) SpO2 99% BMI 31.52 kg/m Physical Exam Vitals and nursing note reviewed. Constitutional: General: She is not in acute distress. Appearance: Normal appearance. She is normal weight. She is not ill-appearing, toxic-appearing or diaphoretic. HENT: Head: Normocephalic and atraumatic. Right Ear: Ear canal and external ear normal. Left Ear: Ear canal and external ear normal. Nose: Nose normal. No congestion or rhinorrhea. Mouth/Throat: Mouth: Mucous membranes are moist. Pharynx: No oropharyngeal exudate or posterior oropharyngeal erythema. Eyes: General: Right eye: No discharge. Left eye: No discharge. Extraocular Movements: Extraocular movements intact. Conjunctiva/sclera: Conjunctivae normal. Pupils: Pupils are equal, round, and reactive to light. Cardiovascular: Rate and Rhythm: Normal rate and regular rhythm. Pulses: Normal pulses. Heart sounds: Normal heart sounds. No murmur heard. No friction rub. Pulmonary: Effort: Pulmonary effort is normal. No respiratory distress. Breath sounds: Normal breath sounds. No stridor. No wheezing, rhonchi or rales. Chest: Chest wall: No tenderness. Abdominal: General: Abdomen is flat. There is no distension. Palpations: Abdomen is soft. There is no mass. Tenderness: There is no abdominal tenderness. There is no right CVA tenderness, left CVA tenderness, guarding or rebound. Hernia: No hernia is present. Musculoskeletal: General: Tenderness and signs of injury present. No swelling or deformity. Normal range of motion. Cervical back: Normal range of motion and neck supple. No rigidity. Right lower leg: No edema. Left lower leg: No edema. Comments: Right 4th and 5th metatarsals with pain and TTP Limited and reduced ROM related to pain +flexion +extension +neuro +sensation Brisk cap refill Lymphadenopathy: Cervical: No cervical adenopathy. Skin: General: Skin is warm and dry. Coloration: Skin is not jaundiced or pale. Findings: No bruising, erythema, lesion or rash. Neurological: General: No focal deficit present. Mental Status: She is alert and oriented to person, place, and time. Cranial Nerves: No cranial nerve deficit. Sensory: No sensory deficit. Motor: No weakness. Coordination: Coordination normal. Gait: Gait normal. Psychiatric: Mood and Affect: Mood normal. Behavior: Behavior normal. Thought Content: Thought content normal. Judgment: Judgment normal. Assessment and Plan ASSESSMENT/PLAN: 1. Pain of right hand - ICD9: 729.5, ICD10: M79.641 X 2 days +injury Punching wall and cabinet - XR HAND GENERAL 3V PA/LAT/OBL RIGHT-negative for fracture John wrap placed by this provider RICE therapy OTC analgesics. Follow up with PCP Ansley Heller APRN.HEALTH TECHNICIAN [facility] No data available for this section [facility] Evaluation note* Diagnosis Pain of right hand- Primary Pain in limb [facility] Diagnosis Viral URI with cough Acute upper respiratory infections of unspecified site [facility]* Diagnosis Sore throat- Primary Acute pharyngitis History of asthma Personal history of other diseases of respiratory system [facility]* Diagnosis Procedure not carried out- Primary Procedure not carried out for other reasons documented in this encounter [facility] note* Diagnosis Abdominal pain, unspecified abdominal location- Primary 16 weeks gestation of state, incidental Burning with urination Dysuria [facility]* Diagnosis Sore throat- Primary Acute pharyngitis Viral illness Unspecified viral infection, in conditions classified elsewhere and of unspecified site [facility]* Diagnosis with care elsewhere, antepartum- Primary Gastroparesis History of depression Personal history of other mental disorder Engages in nicotine containing substance vaping History of marijuana use Nausea and vomiting in Unspecified vomiting of , unspecified as to episode of care [facility]* Diagnosis with care elsewhere, antepartum- Primary Gastroparesis History of depression Personal history of other mental disorder History of marijuana use 29 weeks gestation of state, incidental Rh negative state in antepartum period Rhesus isoimmunization affecting management of mother, antepartum condition [facility]* Diagnosis with care elsewhere, antepartum- Primary 31 weeks gestation of state, incidental [facility]* Diagnosis 33 weeks gestation of - Primary state, incidental care, subsequent in third trimester Leakage of amniotic fluid Premature rupture of membranes in , unspecified as to episode of care [facility]* Diagnosis Poor growth affecting management of mother in third trimester, single or unspecified fetus- Primary Vaginal bleeding in , third trimester 34 weeks gestation of state, incidental [facility]* Diagnosis with care elsewhere, antepartum- Primary Poor growth affecting management of mother in third trimester, single or unspecified fetus [facility]* Diagnosis Other obesity due to excess calories affecting in third trimester [O99.213, E66.09]- Primary Poor growth affecting management of mother in third trimester, single or unspecified fetus Supervision of other high risk pregnancies, third trimester Placental abruption in third trimester [facility]* Diagnosis Poor growth affecting management of mother in third trimester, single or unspecified fetus- Primary Supervision of other high risk pregnancies, third trimester 35 weeks gestation of state, incidental [facility]* Diagnosis 36 weeks gestation of - Primary state, incidental Poor growth affecting management of mother in third trimester, single or unspecified fetus Supervision of other high risk pregnancies, third trimester Rh negative state in antepartum period Rhesus isoimmunization affecting management of mother, antepartum condition History of marijuana use documented in [facility]* Diagnosis Poor growth affecting management of mother in third trimester, single or unspecified fetus- Primary Supervision of other high risk pregnancies, third trimester 36 weeks gestation of state, incidental documented in this encounter [facility] note* Diagnosis Poor growth affecting management of mother in third trimester, single or unspecified fetus- Primary 36 weeks gestation of state, incidental Supervision of other high risk pregnancies, third trimester documented in this encounter [facility] note* Diagnosis 37 weeks gestation of - Primary state, incidental Poor growth affecting management of mother in third trimester, single or unspecified fetus Supervision of other high risk pregnancies, third trimester documented in this encounter [facility] note* Diagnosis 37 weeks gestation of - Primary state, incidental Poor growth affecting management of mother in third trimester, single or unspecified fetus Supervision of other high risk pregnancies, third trimester documented in this encounter [facility] for referral (narrative)* Diagnostic Procedure Only (Urgent) - Closed Specialty Diagnoses / Procedures Referred By Kim hess Referred To Contact XR IMAGING Diagnoses Pain of right hand Procedures XR HAND GENERAL 3V PA/LAT/OBL RIGHT RADEX HAND MINIMUM 3 VIEWS Ansley Heller APRN.CNP [address] [place] [address] Xr Imaging Referral ID Status Reason Start Date Expiration Date V isits Requested Visits Authorized [id number] Closed Auto-Generate d Referral 10/27/2021 11/26/2022 1 1 [facility] for referral (narrative)* Outpatient Procedure (Routine) - Pending Review Specialty Diagnoses / Procedures Referred By Contac t Referred To Contact Diagnoses Poor growth affecting management of mother in third trimester, single or unspecified fetus Procedures NON-STRESS TEST NON-STRESS TEST Rudolph Ralph MD [address] [place] [address] Referral ID Status Reason Start Date Expiration Date Visits Requested Visits Authorized [id number] Pending Review Auto-Generat ed Referral 3 12/29/2023 4 1 [facility] Summary Purpose Family History No Family History Records FoundNo Family History Records FoundNo Family History Records FoundNo Family History Records FoundNo Family History Records FoundNo Family History Records FoundNo Family History Records FoundNo Family History Records Found Advance Directives No Advanced Directives Records FoundNo Advanced Directives Records FoundNo Advanced Directives Records FoundNo Advanced Directives Records FoundNo Advanced Directives Records FoundNo Advanced Directives Records FoundNo Advanced Directives Records FoundNo Advanced Directives Records Found Health Concerns Infection Onset Date Last Indicated Resolved Time COVID-19 Rule-Out 08/21/2022 08/21/2022 Problem Noted Date Diagnosed Date [facility] Education - COMMON 10/22/2022 Problem Noted Date Diagnosed Date [facility] Education - COMMON 10/22/2022 Problem Noted Date Diagnosed Date [facility] Education - COMMON 10/22/2022 [facility] Education - COMMON 11/22/2022 Education - [place] 11/22/2022 Problem Noted Date Diagnosed Date [facility] Education - COMMON 10/22/2022 [facility] Education - COMMON 11/22/2022 Education - [place] 11/22/2022 Problem Noted Date Diagnosed Date [facility] Education - COMMON 10/22/2022 [facility] Education - COMMON 11/22/2022 Education - [place] 11/22/2022 Problem Noted Date Diagnosed Date [facility] Education - COMMON 10/22/2022 [facility] Education - COMMON 11/22/2022 Education - [place] 11/22/2022 Problem Noted Date Diagnosed Date [facility] Education - COMMON 10/22/2022 [facility] Education - COMMON 11/22/2022 Education - [place] 11/22/2022 Additional Source Comments INFORMATION SOURCE (unrecogn ized section and content) DATE CREATED AUTHOR AUTHOR'S ORGANIZ ATION 10/10/2020 Julio Andrade [facility] DATE CREATED AUTHOR AUTHOR'S ORGANIZ ATION 07/24/2021 [facility] DATE CREATED AUTHOR AUTHOR'S ORGANIZ ATION 02/16/2022 [facility] ([place]) DATE CREATED AUTHOR AUTHOR'S ORGANIZ ATION 07/19/2022 [facility] DATE CREATED AUTHOR AUTHOR'S ORGANIZ ATION 08/27/2022 [facility] DATE CREATED AUTHOR AUTHOR'S ORGANIZ ATION 01/18/2023 [facility] DATE CREATED AUTHOR AUTHOR'S ORGANIZ ATION 02/24/2023 [facility] Source Comments (unrecognize d section and content) In the event this informatio n is protected by the Federal Confidentiality of Alcohol and Drug Abuse Patient Records regulations: The Federal rules restrict any use of the information to criminally investigate or prosecute any alcohol or drug abuse patient.[facility] the event this information is protected by the Federal Confidentiality of Alcohol and Drug Abuse Patient Records regulations: The Federal rules restrict any use of the information to criminally investigate or prosecute any alcohol or drug abuse patient.[facility] System[facility] the event this information is protected by the Federal Confidentiality of Alcohol and Drug Abuse Patient Records regulations: The Federal rules restrict any use of the information to criminally investigate or prosecute any alcohol or drug abuse patient.[facility] SystemIn the event this information is protected by the Federal Confidentiality of Alcohol and Drug Abuse Patient Records regulations: The Federal rules restrict any use of the information to criminally investigate or prosecute any alcohol or drug abuse patient.[facility] System[facility] the event this information is protected by the Federal Confidentiality of Alcohol and Drug Abuse Patient Records regulations: The Federal rules restrict any use of the information to criminally investigate or prosecute any alcohol or drug abuse patient.[facility] System[facility] the event this information is protected by the Federal Confidentiality of Alcohol and Drug Abuse Patient Records regulations: The Federal rules restrict any use of the information to criminally investigate or prosecute any alcohol or drug abuse patient.[facility] SystemIn the event this information is protected by the Federal Confidentiality of Alcohol and Drug Abuse Patient Records regulations: The Federal rules restrict any use of the information to criminally investigate or prosecute any alcohol or drug abuse patient.[facility] System[facility] the event this information is protected by the Federal Confidentiality of Alcohol and Drug Abuse Patient Records regulations: The Federal rules restrict any use of the information to criminally investigate or prosecute any alcohol or drug abuse patient.[facility] SystemIn the event this information is protected by the Federal Confidentiality of Alcohol and Drug Abuse Patient Records regulations: The Federal rules restrict any use of the information to criminally investigate or prosecute any alcohol or drug abuse patient.[facility] SystemIn the event this information is protected by the Federal Confidentiality of Alcohol and Drug Abuse Patient Records regulations: The Federal rules restrict any use of the information to criminally investigate or prosecute any alcohol or drug abuse patient.[facility] System[facility] the event this information is protected by the Federal Confidentiality of Alcohol and Drug Abuse Patient Records regulations: The Federal rules restrict any use of the information to criminally investigate or prosecute any alcohol or drug abuse patient.[facility] System[facility] the event this information is protected by the Federal Confidentiality of Alcohol and Drug Abuse Patient Records regulations: The Federal rules restrict any use of the information to criminally investigate or prosecute any alcohol or drug abuse patient.[facility] System[facility] the event this information is protected by the Federal Confidentiality of Alcohol and Drug Abuse Patient Records regulations: The Federal rules restrict any use of the information to criminally investigate or prosecute any alcohol or drug abuse patient.[facility] SystemIn the event this information is protected by the Federal Confidentiality of Alcohol and Drug Abuse Patient Records regulations: The Federal rules restrict any use of the information to criminally investigate or prosecute any alcohol or drug abuse patient.[facility] SystemIn the event this information is protected by the Federal Confidentiality of Alcohol and Drug Abuse Patient Records regulations: The Federal rules restrict any use of the information to criminally investigate or prosecute any alcohol or drug abuse patient.[facility] SystemIn the event this information is protected by the Federal Confidentiality of Alcohol and Drug Abuse Patient Records regulations: The Federal rules restrict any use of the information to criminally investigate or prosecute any alcohol or drug abuse patient.[facility] SystemIn the event this information is protected by the Federal Confidentiality of Alcohol and Drug Abuse Patient Records regulations: The Federal rules restrict any use of the information to criminally investigate or prosecute any alcohol or drug abuse patient.[facility] SystemIn the event this information is protected by the Federal Confidentiality of Alcohol and Drug Abuse Patient Records regulations: The Federal rules restrict any use of the information to criminally investigate or prosecute any alcohol or drug abuse patient.[facility] SystemIn the event this information is protected by the Federal Confidentiality of Alcohol and Drug Abuse Patient Records regulations: The Federal rules restrict any use of the information to criminally investigate or prosecute any alcohol or drug abuse patient.[facility] SystemIn the event this information is protected by the Federal Confidentiality of Alcohol and Drug Abuse Patient Records regulations: The Federal rules restrict any use of the information to criminally investigate or prosecute any alcohol or drug abuse patient.[facility] SystemIn the event this information is protected by the Federal Confidentiality of Alcohol and Drug Abuse Patient Records regulations: The Federal rules restrict any use of the information to criminally investigate or prosecute any alcohol or drug abuse patient.[facility] SystemIn the event this information is protected by the Federal Confidentiality of Alcohol and Drug Abuse Patient Records regulations: The Federal rules restrict any use of the information to criminally investigate or prosecute any alcohol or drug abuse patient.[facility] SystemIn the event this information is protected by the Federal Confidentiality of Alcohol and Drug Abuse Patient Records regulations: The Federal rules restrict any use of the information to criminally investigate or prosecute any alcohol or drug abuse patient.[facility] SystemIn the event this information is protected by the Federal Confidentiality of Alcohol and Drug Abuse Patient Records regulations: The Federal rules restrict any use of the information to criminally investigate or prosecute any alcohol or drug abuse patient.[facility] SystemIn the event this information is protected by the Federal Confidentiality of Alcohol and Drug Abuse Patient Records regulations: The Federal rules restrict any use of the information to criminally investigate or prosecute any alcohol or drug abuse patient.[facility] Reason for Visit (unrecogniz ed section and content) Specialty Diagnoses / Procedures Referred By Kim t Referred To Contact [facility] Diagnoses Poor growth affecting management of mother in third trimester, single or unspecified fetus Supervision of other high risk pregnancies, third trimester Procedures BIOPHYSICAL PROFILE US I BIOPHYSICAL PROFILE NON-STRESS TESTING Mayito Granados MD [address] [place] [address] [facility] [address] [place] [address] Referral ID Status Reason Start Date Expiration Date V isits Requested Visits Authorized [id number] Closed Auto-Generate d Referral 2022 2023 6 1 Reason Comments Pain (RT) hand/finger inj ury, pain rated 8, x2 days. Reason Onset Date Comments Refill Request 11/08/2021 Reason Comments Sore Throat X 1 day Reason Comments Pain Pt reported 16 wk ge station lower back pain radiating to pelvic region, burning with urination x2 days. Reason Comments Cough Sore throat, diarrhe a, sob, chest pain x 3 days Reason Comments Received Outside Medical Records Reason Comments Care Reason Comments Initial OB Visit [facility] from [facility] Reason Onset Date Comments Care 12/06/2022 Reason Comments Patient Question Reason Onset Date Comments Care Care 12/20/2022 Reason Comments OB Bleeding Specialty Diagnoses / Procedures Referred By Contac t Referred To Contact Diagnoses Vaginal bleeding Procedures NA Md [address] [place] [address] Referral ID Status Reason Start Date Expiration Date Visits Re quested Visits Authorized [id number] 1 1 Reason Comments Consult Specialty Diagnoses / Procedures Referred By Contac t Referred To Contact [facility] Diagnoses Poor growth affecting management of mother in third trimester, single or unspecified fetus Supervision of other high risk pregnancies, third trimester Procedures BIOPHYSICAL PROFILE US [facility] BIOPHYSICAL PROFILE NON-STRESS TESTING Mayito Granados MD [address] [place] [address] [facility] [address] [place] [address] Reason Onset Date Comments Care 12/31/2022 Reason Onset Date Comments Care 01/05/2023 Reason Comments Results Reason Onset Date Comments Care 01/13/2023 Reason Onset Date Comments Care 01/17/2023 Reason Comments Ob Delivery Note Care Team (unrecognized sect ion and content) Care Team Personnel Name: PHYSICIAN, NONE Position: Physician Member Role: Primary Care Physician Name: MARICRUZ ZAMUDIO MD Position: ED Physician Member Role: Attending Physician Address: Address: [facility] [address] [place], [place] [address] Name: Moni Sanchez RN Position: ED RN Member Role: ED RN FOR RECORDS PERTAINING TO PATIENTS WHO ARE OR HAVE BEEN ENROLLED IN A CHEMICAL DEPENDENCY/SUBSTANCEABUSE PROGRAM, SOME INFORMATION MAY BE OMITTED. This clinical summary was aggregated from multiple sources. Caution should be exercised in using it in the provision of clinical care. This summary normalizes information from multiple sources, and as a consequence, information in this document may materially change the coding, format and clinical context of patient data. In addition, data may be omitted in some cases. CLINICAL DECISIONS SHOULD BE BASED ON THE PRIMARY CLINICAL RECORDS. [facility]. provides no warranty or guarantee of the accuracy or completeness of information in this document.
--- NOTE | 2023-03-04 11:46 | DCINST_ITS ---
Discharge Instructions Diet Discharge Diet: No restrictions Activity May resume sexual activity in: 2 weeks Lifting Restrictions: 20-25 lbs Dressing / Incision Call your doctor if your incision/area has: Continuous Slow Oozing, Sudden Increased Bleeding, Increased Pain/ Swelling, Increased Redness, Foul Smelling Discharge and Swelling at the incision site Call your doctor if you observe: Fever of 101 or Higher, Inability to urinate, Inability to have a bowel movement, Using more than 1 pad per hour and Uncontrolled pain Additional Dressing/Incision Instructions:: You have skin glue over your incision sites, do not pick off. You may shower and let the soap and water run over the incision sites and dab dry. Follow Up Care Please Follow Up With: Angeline Del Castillo MD When: 1-2 weeks post OP if you need an appointment please call [phone] Test Results: Test results from this visit will be discussed in further detail at your follow- up appointment, if applicable. Discharge Plan Admission Attending Provider: Angeline Del Castillo Primary Care Provider: Care PhysicianWendy Primary Discharge Orders/Prescriptions Prescriptions: No Action albuterol sulfate 90 mcg/actuation HFA aerosol inhaler 1 inh INHALATION PRN Patient Comments: Inhale 2 Puffs as instructed every 6 hours as needed. ferrous sulfate [iron] 325 mg (65 mg iron) tablet 325 mg PO QODAY PRN (Reason: anemia) ondansetron 4 mg tablet,disintegrating 4 mg PO Q8H PRN PRN (Reason: Nausea) Qty: 10 0RF Referrals / Follow Up: Care PhysicianWendy Primary [Primary Care Provider] - Disposition Disposition (needs filled in before D/C Order can be placed): Home, Self Care
[2023-03-04] MEDS: Bupivacaine 0.5% PF 10 ML VIAL (12:13)
--- NOTE | 2023-03-04 12:23 | OP.PCM_ITS ---
Report of Operation Date of Procedure: 03/04/23 Pre-Operative Diagnosis: Desires sterilization Post-Operative Diagnosis: Same Surgery/Procedure Performed:: Laparoscopic bilateral salpingectomy Description of Surgical Findings:: Normal Tubes and ovaries bilateally Surgeon: Angeline Del Castillo manager strategic alliances: None (jaquan giovanna MS 3 ) Type of Anesthesia: General and Local Special Medications: 0.5% marcaine Specimen's removed: Bilateral fallopian tubes Estimated Blood Loss (mL): <5cc Fluids Replaced: 800cc Description of Procedure: After informed consent was obtained patient was taken to the operating room she was placed in supine position she was given anesthesia. She was then [facility] and she was prepped and draped in normal sterile fashion. Bladder was drained prior to the start of procedure. At this time attention was turned to the vaginal portion where weighted speculum placed at posterior fornix vagina single-tooth tenaculum was used to gently grasp the internal the cervix. uterus was gently sounded to approximately cm. Uterine manipulator was placed without difficulty. Legs then placed in parallel with the abdomen the tenaculum and the weighted speculum were removed. 2 towel clamps were placed at level of umbilicus. Marcaine was injected infraumbilical and a small incision was made. The 5 mm trocar was placed under direct visualization. CO2 gas was used to insufflate the intra-abdominal cavity. Upon inspection no gross abnormalities appreciated- the uterus tubes and ovaries appeared to be normal. At this time then the LLQ and RLQ ports were placed First Marcaine was injected and small incision was made a knife and the 5 mm trocars were placed. At this time then tubes were traced back to the fimbriated ends. Enseal was used to coagulate and ligate along mesosalpinx bilaterally until tubes removed completely. Good hemostasis was appreciated. At this time procedure was deemed complete successful. The gas was desufflated on from the intra-abdominal cavity. The trochars were removed. Skin was closed using 4-0 Monocryl in a subcutaneous fashion. Dermabond glue was placed. Instrument lap and needle counts were correct ?2. The uterine manipulator was removed. Vaginal sweep was performed it was negative. There were no complications anticipated normal postoperative course for this patient. Grafts/Implants Used: none Procedure Start Time: 11:59 Procedure Stop Time: 12:23 Complications none Admit VTE Documentation VTE Present on Admission: Yes VTE Mechan Device Prophylaxis: SCD's VTE Pharm Prophylaxis ordered?: No Reason prophylaxis not ordered:: Procedure Not Indicated
--- NOTE | 2023-03-04 13:00 | FALS_PTH ---
PATHOLOGY RESULTS PATIENT: CHANA DE LA O LOC: [facility] [place] U#:[id number] AGE/SX: 22/ ROOM: RE03/04/[address]: Dr. Angeline Chu MD : 2000 BED: DIS: 03/04/2023 SPEC #: [id number] RECD: 03/04/23 13:11 STATUS: JIMMIE TESS #: [id number] BEATRIZ: 03/04/23 13:[address]: Angeline Chu DEPT: SURGICAL PATHOLOGY RECD BY: Sparkle Butt ENTERED: 03/04/23 13:55 SP TYPE: FALL TUBES OTHR DR: Wendy Primary Care Phys Tissues: Fallopian tube Procedures: Surgery Specimen Level II HEADER OPERATION: Laparoscopic salpingectomy PRE-OP DIAGNOSIS: Elective sterilization TISSUE SUBMITTED: Bilateral fallopian tubes MICROSCOPIC DIAGNOSIS Bilateral fallopian tubes, salpingectomy: Bilateral fallopian tubes, no pathologic diagnosis. RON:merary 03/07/2023 MICROSCOPIC DESCRIPTION Slides are reviewed. GROSS DESCRIPTION Received in fixative is one container labeled with the patient's name and designated bilateral fallopian tubes. The specimen consists of bilateral fallopian tubes including fimbrial ends measuring 6.0 cm in length and 0.5 cm in diameter and 7.5 cm in length and 0.5 cm in diameter. The fallopian tubes are not identified as right or left. Sections reveal unremarkable cut surfaces. Rice Drier sections are submitted in two cassettes with each cassette containing one fallopian tube. / RON:merary 03/04/2023 TC:4 CPT: 22180 x2
== END 2023-03-04 13:43 | disposition home or self-care (01) ==
LOC: SDC 10:39 → AC 10:51
PROVIDERS: Anesthesiology; Referring Provider Obstetrics & Gynecology; Visit Provider Obstetrics & Gynecology
PROC: (CPT 58661; principal; 2023-03-04 12:45)
DX: Z30.2 Encounter for sterilization (principal); D64.9 Anemia, unspecified; Z87.891 Personal history of nicotine dependence; J45.909 Unspecified asthma, uncomplicated
CPT/HCPCS: 58661; 00840; 81025; 88302; J7120; C1760; J2405

== ENCOUNTER 2023-04-10 19:33 | Emergency (ER) | payer OTHER, MEDICAID, SELFPAY ==
[2023-04-10 19:34] VITALS: BP 130/80; PULSE 110; RESP 16; TEMP 36.4; O2SAT 98; BMI 33.3
--- NOTE | 2023-04-10 19:51 | EDS_ITS ---
HPI <ZAKI English - Last Filed: 04/10/23 20:07> History of Present Illness Chief Complaint: Nausea/Vomiting Narrative Narrative: 22-year-old female presents with nausea and vomiting x 2 days. She states she has had a cyclical vomiting issue for the last [address] Kowalski and Dr. Thornton. She had an upper endoscopy. She was told she has gastroparesis and may need some type of surgery. She smokes marijuana to manage her abdominal pain. She states she had a trial period off marijuana and it did not help so she smokes to manage her symptoms. She has no pain currently and is here requesting nausea medicine so she can go to work [employer]. She states [employer] works. She does not have antiemetics at home. History of cholecystectomy. Denies alcohol use. PFSH <ZAKI English - Last Filed: 04/10/23 20:07> PFSH Medical History ADHD Anemia Anxiety Asthma Depression Depression affecting Encounter for induction of labor Gastroparesis History of IBS IBS (irritable bowel syndrome) IUGR (intrauterine growth restriction) Low iron Marijuana use Nausea & vomiting Rh negative state in antepartum period Syncope Upper abdominal pain Vaginal delivery Vapes nicotine containing substance Home Medications albuterol sulfate 90 mcg/actuation aerosol inhaler 1 inh inhalation PRN asthma 01/18/23 [History Last Taken Unknown] ferrous sulfate 325 mg (65 mg iron) tablet (iron) 325 mg PO QODAY PRN anemia 02/22/23 [History Last Taken Unknown] ondansetron 4 mg disintegrating tablet 4 mg PO Q8H PRN PRN Nausea #10 tabs 02/26/23 [Rx Last Taken Unknown] ondansetron 4 mg disintegrating tablet 4 mg PO Q6H PRN nausea and vomiting 3 days #12 tabs 04/10/23 [Rx Last Taken Unknown] Allergy/AdvReac Type Severity Reaction Status Date / Time No Known Allergies Allergy Verified 02/26/23 15:49 Family History Father Diabetes Mother Depression Grandmother Breast cancer Surgical History H/O dilation and curettage History of adenoidectomy History of cholecystectomy (~09/2021) History of esophagogastroduodenoscopy (EGD) Hx of tonsillectomy Social History household members: significant other Smoking Status: Current every day smoker tobacco type: e-cigarettes alcohol intake: never substance use type: marijuana ROS <ZAKI English - Last Filed: 04/10/23 20:07> ROS ED ROS Narrative Constitutional: Negative for fever, chills, malaise. CVS: Negative for chest pain. Respiratory: Negative for shortness of breath. GI: Positive for nausea, vomiting. Negative for abdominal pain, diarrhea, constipation, melena, hematochezia. : Negative for dysuria. EXAM <ZAKI English - Last Filed: 04/10/23 20:07> Physical Exam Narrative Exam Narrative: CONST: Patient sitting in no acute distress. EYES: Normal inspection. ENT: Normal inspection, moist mucous membranes. NECK: Normal inspection. RESP: No respiratory distress, CTAB. CVS: Tachycardic around 110 bpm with regular rhythm, no murmur, no gallop. ABD: Soft and nontender, no guarding or rebound, nondistended. SKIN: Color normal, no rash, warm, dry, intact. EXTREMITIES: Normal appearance, no pedal edema. NEURO: Oriented x4. PSYCH: Normal affect. Const Vital Signs: 04/10/23 19:34 Temperature 97.5 F L Temperature Source Temporal Pulse Rate 110 H Respiratory Rate 16 Blood Pressure 130/80 H Blood Pressure Mean 96 Pulse Ox 98 Oxygen Delivery Method Room Air <Dr. Marcos Arizmendi MD - Last Filed: 04/10/23 20:05> Physical Exam Const Vital Signs: 04/10/23 19:34 Temperature 97.5 F L Temperature Source Temporal Pulse Rate 110 H Respiratory Rate 16 Blood Pressure 130/80 H Blood Pressure Mean 96 Pulse Ox 98 Oxygen Delivery Method Room Air MDM <ZAKI English - Last Filed: 04/10/23 20:07> MDM MDM Narrative Medical decision making narrative: Patient has cyclical vomiting symptoms. Reports nausea and vomiting over the last 2 days. Daily marijuana smoker. She appears well and nontoxic. HR is 110 with otherwise normal vital signs. She denies any abdominal pain and has no tenderness or distention. Normal bowel sounds. She only wants treated with Zofran ODT and a prescription for home. She does not want labs or IV fluids. I think this is reasonable based on her well appearance and benign exam. She was discharged in stable condition. I have personally performed a face to face assessment of the patient and have reviewed the [facility] Note. I performed a substantive portion of the visit including all aspects of the following. My casarez findings include: History is 22-year-old female history of nausea and vomiting for months smokes marijuana. Denies any abdominal pain. No fever. No dysuria. No melena or hematemesis. Exam is [20-year-old female vital signs stable afebrile does not look septic toxic. No distress. No dehydration. HEENT exam unremarkable. Mytrex membranes. Neck nontender. Lungs clear to auscultation. Heart regular rhythm no murmur. Rate about 100. Abdomen soft, nontender, nondistended, normal bowel sounds without peritoneal signs. No right upper or right lower quadrant tenderness. No hernia or mass. No obstruction. Moving all 4 extremities. Nontender no edema. Neurologically awake and alert no focal motor deficits. Back nontender.] Medical Decision Making [patient only wants a prescription for Zofran. She does not need labs or IV fluids. She does not need imaging. She will be discharged home.] Other additions or changes: [None] <Dr. Marcos Arizmendi MD - Last Filed: 04/10/23 20:05> [facility] Narrative Medical decision making narrative: I have personally performed a face to face assessment of the patient and have reviewed the [facility] Note. I performed a substantive portion of the visit including all aspects of the following. My casarez findings include: History is 22-year-old female history of nausea and vomiting for months smokes marijuana. Denies any abdominal pain. No fever. No dysuria. No melena or hematemesis. Exam is [20-year-old female vital signs stable afebrile does not look septic toxic. No distress. No dehydration. HEENT exam unremarkable. Mytrex membranes. Neck nontender. Lungs clear to auscultation. Heart regular rhythm no murmur. Rate about 100. Abdomen soft, nontender, nondistended, normal bowel sounds without peritoneal signs. No right upper or right lower quadrant tenderness. No hernia or mass. No obstruction. Moving all 4 extremities. Nontender no edema. Neurologically awake and alert no focal motor deficits. Back nontender.] Medical Decision Making [patient only wants a prescription for Zofran. She does not need labs or IV fluids. She does not need imaging. She will be discharged home.] Other additions or changes: [None] History & Record Review Discussion w/independent historian: Patient Discharge Plan Triage Chief Complaint: Nausea/Vomiting ED Midlevel Provider: Katerin Sawyer ED Provider: Marcos Arizmendi Dx/Rx/DC Orders Clinical Impression: Cyclical vomiting syndrome Instructions: ED Vomiting (Adult) Prescriptions: New ondansetron 4 mg tablet,disintegrating 4 mg PO Q6H PRN (Reason: nausea and vomiting) 3 Days Qty: 12 0RF No Action albuterol sulfate 90 mcg/actuation HFA aerosol inhaler 1 inh INHALATION PRN Patient Comments: Inhale 2 Puffs as instructed every 6 hours as needed. ferrous sulfate [iron] 325 mg (65 mg iron) tablet 325 mg PO QODAY PRN (Reason: anemia) ondansetron 4 mg tablet,disintegrating 4 mg PO Q8H PRN PRN (Reason: Nausea) Qty: 10 0RF Primary Care Provider: Care Physician,No Primary Referrals: Care Physician,No Primary [Primary Care Provider] - Activity Restrictions/Additional Instructions: Return if symptoms worsen. Follow-up with your doctors Disposition Disposition: Home, Self Care
--- OUTSIDE RECORDS SUMMARY | 2023-04-10 19:58 | XMS RPT_ITS | CCD ---
Author Name Unknown Address [id number] [place] [address] Organization [facility] Care Team Providers Care Poultry Tender Name Role Phone JOHN GALVEZ Unavailable Unavailable JOSE ALFREDO ROMEO Unavailable Unavailable DYLAN KAMAL Unavailable Unavailable JOHN GALVEZ Unavailable Unavailable JOHN GALVEZ Unavailable Unavailable JOSE ALFREDO ROMEO Unavailable Unavailable DYLAN, KAMAL Unavailable Unavailable [facility] Attending Unava ilable [facility] Primary Care Unava ilable [facility] Admitting Unava ilable Unavailable Primary Care Provider Unavailjuan carlos e PHYSICIAN, NONE Primary Care Physician Unavailab MARICRUZ Gilman MD Attending Unavail able PHYSICIAN, NONE Primary Care Unavailable Unavailable Primary Care Provider UnavailJYOTI Ridley Attending Unavailable NO, PHYSICIAN Primary Care Unavailable NONE, NONE Primary Care Unavailable LOFTON DO~[id number], LOFTON PATITO K Attending Unavailable LOFTON DO~[id number], LOFTON PATITO K Admitting Unavailable JYOTI RODRIGES MD Consulting Unavailable JYOTI RODRIGES MD Consulting Unavailable NONE, NONE Consulting Unavailable DECLINED, Consulting Unavailable ATA SOLID FIBER PASTER OPERATORLUIS MANUEL Consulting Unavailab LUIS MANUEL Mcclelland APRN Consulting Unavailab SONY Streeter Attending Unavailable CHRISTIAN MONDRAGON Admitting Unavailable SVETLANA SCHAEFFER Attending Unavailable MAYITO GRANADOS Referring Unavailable RUDOLPH RALPH Attending Unavailable MAYITO GRANADOS Referring Unavailable ANGELINE CARRANZA Attending Unavail able DANNI REYNOLDS Attending Unavailable DANNI REYNOLDS Referring Unavailable ANSLEY IBRAHIM Attending Unavailable ANGELINE CARRANZA Attending Unavail able DARWIN, MAYITO Referring Unavailable DARWIN, MAYITO Referring Unavailable SVETLANA SCHAEFFER Referring Unavailable DARWIN, MAYITO Referring Unavailable DANNI REYNOLDS Attending Unavailable DARWIN, MAYITO Referring Unavailable STEPHEN PRETTY Attending Unavailable DARWIN, MAYITO Referring Unavailable DARWIN MAYITO Attending Unavailable DARWIN, MAYITO Referring Unavailable ANGELINE CARRANZA Attending Unavail able DARWIN, MAYITO Referring Unavailable ANSLEY IBRAHIM Attending Unavailable ANGELINE CARRANZA Attending Unavail able Allergies Allergy Classification Reported Allergen(s) Allergy Type Date of Onset Reaction(s) Facility (1 source) Environmental allergy; Translations: [ENVIRONMENTAL] Propensity to adverse reactions (disorder) 8 [facility] Repository (20 sources) Seasonal allergy; Translations: [SEASONAL ALLERGIES] Allergy to substance 8 Cough, Other: See Comments, Itching [facility] Work Phone: Medications Current Medications Medication Drug [...] Drug Class(es) Dates Sig (Normalized) Sig (Original) [id number] 200 actuat albuterol 0.09 mg/actuat metered dose [...] [Unspecified abdominal pain] Onset: 12-25-2021 Episodic Asthma (13 sources) Mild intermittent asthma; Translations: [Mild intermittent asthma, uncomplicated] Onset: 12-23-2022 3 Chronic Attention-deficit, conduct, and disruptive behavior disorders (12 sources) Attention deficit hyperactivity disorder; Translations: [Attention-deficit [...] Onset: 11-15-2022 11-15-2022 Episodic Other complications of (20 sources) Poor [...] other high risk pregnancies, third trimester] Onset: 12-28-2022 Episodic Other connective tissue disease (1 source) Pain in right hand; Translations: [Pain in right hand] Episodic Other female genital disorders (13 sources) Vaginal bleeding; Translations: [Abnormal uterine and [...] BMI 60.0-69.9 ADULT] Onset: 07-14-2022 Chronic Other upper respiratory infections (3 sources) Viral upper respiratory tract infection; Translations: [Acute upper respiratory infection, unspecified] Episodic Ovarian cyst (1 source) Cyst of ovary; Translations: [Unspecified ovarian cyst, unspecified side] Onset: 12-25-2021 Episodic Residual codes; unclassified (1 source) Procedure not done; Translations: [Procedure and treatment not carried out, unspecified reason] Episodic Residual codes; unclassified (1 source) Gestation period, 16 weeks; Translations: [16 weeks gestation of ] 08-19-2022 Episodic Residual codes; unclassified (1 source) 11 weeks gestation of ; Translations: [11 WEEKS GESTATION OF ] Onset: 07-14-2022 Episodic Residual codes; unclassified (1 source) Gestation [...] weeks gestation of ] Onset: 01-05-2023 Episodic Substance-related disorders (20 sources) Cannabis abuse, [...] Other Problems Problem Classification Problem Date Documented Date Episodic/Chronic Other complications of (20 sources) RhD negative; Translations: [Other specified related conditions, unspecified trimester] Onset: 11-22-2022 11-22-2022 Episodic Other complications of (1 source) Other specified related conditions, unspecified trimester; Translations: [Rh negative state in antepartum period] Onset: 12-27-2022 Episodic Other disorders of stomach and duodenum (20 sources) Gastroparesis syndrome; Translations: [Gastroparesis] Onset: 11-15-2022 11-15-2022 Episodic Other disorders of stomach and duodenum (1 source) Gastroparesis; Translations: [Gastroparesis] Onset: 11-15-2022 Episodic Other and delivery including normal (20 sources) ; Translations: [Encounter for supervision of normal , unspecified, unspecified trimester] Onset: 11-15-2022 11-15-2022 Episodic Polyhydramnios and other problems of amniotic cavity (2 sources) Amniotic fluid leaking; Translations: [Premature rupture of membranes, unspecified as to length of time between rupture and onset of labor, unspecified weeks of gestation] Onset: 12-20-2022 12-20-2022 Episodic Residual codes; unclassified (20 sources) Nicotine-filled electronic cigarette user; Translations: [Tobacco use] Onset: 11-15-2022 11-15-2022 Episodic Residual codes; unclassified (1 source) Unspecified blood type, Rh negative; Translations: [Rh negative state in antepartum period] Onset: 12-27-2022 Episodic Residual codes; unclassified (1 source) 33 weeks gestation of ; Translations: [33 weeks gestation of ] Onset: 12-20-2022 Episodic Residual codes; unclassified (1 source) 29 [...] 89 kg Stephen Pretty MD Work Phone: [facility] 01-13-2023 11:01-0500 Diastolic blood pressure 69 mm[Hg] Stephen Pretty MD Work Phone: [facility] 01-13-2023 11:01-0500 Systolic blood pressure 110 mm[Hg] Stephen Pretty MD Work Phone: [facility] 01-10-2023 12:57-0500 Diastolic blood pressure 76 mm[Hg] Ob Ultrasound Work Phone: [facility] 01-10-2023 12:57-0500 Systolic blood pressure 124 mm[Hg] Ob Ultrasound Work Phone: [facility] 01-05-2023 14:44-0500 Body weight 88 kg Danni Plotts SOLID FIBER PASTER OPERATOR.CNM Work Phone: [facility] 01-05-2023 14:44-0500 Diastolic blood pressure 62 mm[Hg] Danni Plotts SOLID FIBER PASTER OPERATOR.CNM Work Phone: [facility] 01-05-2023 14:44-0500 Systolic blood pressure 108 mm[Hg] Danni Plotts SOLID FIBER PASTER OPERATOR.CNM Work Phone: [facility] 12-31-2022 15:02-0500 Body weight 86.18 kg Angeline Kulkarni MD Work Phone: [facility] 12-31-2022 15:02-0500 Diastolic blood pressure 66 mm[Hg] Angeline Kulkarni MD Work Phone: [facility] 12-31-2022 15:02-0500 Systolic blood pressure 110 mm[Hg] Angeline Kulkarni MD Work Phone: [facility] 12-28-2022 08:11-0500 Body weight 89 kg Rudolph Ralph MD Work Phone: [facility] 12-28-2022 08:11-0500 Diastolic blood pressure 70 mm[Hg] Rudolph Ralph MD Work Phone: [facility] 12-28-2022 08:11-0500 Systolic blood pressure 110 mm[Hg] Rudolph Ralph MD Work Phone: [facility] 12-20-2022 15:24-0500 Body weight 88.09 kg Svetlanaliseth Schaeffer SOLID FIBER PASTER OPERATOR.FASHION CONSULTANT Work Phone: [facility] 12-20-2022 15:24-0500 Diastolic blood pressure 58 mm[Hg] Svetlana Haury SOLID FIBER PASTER OPERATOR.FASHION CONSULTANT Work Phone: [facility] 12-20-2022 15:24-0500 Systolic blood pressure 100 mm[Hg] Svetlana Haury SOLID FIBER PASTER OPERATOR.FASHION CONSULTANT Work Phone: [facility] 12-06-2022 16:39-0400 Body weight 86.82 kg Ansley Ibrahim SOLID FIBER PASTER OPERATOR.CNM Work Phone: [facility] 12-06-2022 16:39-0400 Diastolic blood pressure 66 mm[Hg] Ansley Ibrahim SOLID FIBER PASTER OPERATOR.CNM Work Phone: [facility] 12-06-2022 16:39-0400 Systolic blood pressure 110 mm[Hg] Ansley Ibrahim SOLID FIBER PASTER OPERATOR.CNM Work Phone: [facility] 11-22-2022 12:56-0400 Body height 165.1 cm Danni Plotts SOLID FIBER PASTER OPERATOR.CNM Work Phone: [facility] 11-22-2022 12:56-0400 Body weight 85.73 kg Danni Plotts SOLID FIBER PASTER OPERATOR.CNM Work Phone: [facility] 11-22-2022 12:56-0400 Diastolic blood pressure 60 mm[Hg] Danni Plotts SOLID FIBER PASTER OPERATOR.CNM Work Phone: [facility] 11-22-2022 12:56-0400 Systolic blood pressure 104 mm[Hg] Danni Plotts SOLID FIBER PASTER OPERATOR.CNM Work Phone: [facility] 08-21-2022 10:34-0400 Body temperature 97.9 [degF] Wilfrid Pendlebury SOLID FIBER PASTER OPERATOR.FASHION CONSULTANT Work Phone: [facility] 08-21-2022 10:34-0400 Body weight 83.73 kg Wilfrid Keya SOLID FIBER PASTER OPERATOR.FASHION CONSULTANT Work Phone: [facility] 08-21-2022 10:34-0400 Diastolic blood pressure 64 mm[Hg] Wilfrid Pendlebury SOLID FIBER PASTER OPERATOR.FASHION CONSULTANT Work Phone: [facility] 08-21-2022 10:34-0400 Heart rate 86 /min Wilfrid Pendlebury SOLID FIBER PASTER OPERATOR.FASHION CONSULTANT Work Phone: [facility] 08-21-2022 10:34-0400 Respiratory rate 21 /min Wilfrid Pendlebury SOLID FIBER PASTER OPERATOR.FASHION CONSULTANT Work Phone: [facility] 08-21-2022 10:34-0400 SaO2% (BldA) [Mass fraction] 98 % Wilfrid Laura SOLID FIBER PASTER OPERATOR.FASHION CONSULTANT Work Phone: [facility] 08-21-2022 10:34-0400 Systolic blood pressure 118 mm[Hg] Wilfrid Hayesbury SOLID FIBER PASTER OPERATOR.FASHION CONSULTANT Work Phone: [facility] 08-19-2022 16:07-0400 Body temperature 97.59 [degF] Lyric Whitmanhof SOLID FIBER PASTER OPERATOR.FASHION CONSULTANT Work Phone: [facility] 08-19-2022 16:07-0400 Body weight 85 kg Lyricberna Whitmanhof SOLID FIBER PASTER OPERATOR.FASHION CONSULTANT Work Phone: [facility] 08-19-2022 16:07-0400 Diastolic blood pressure 64 mm[Hg] Lyric Tannhof SOLID FIBER PASTER OPERATOR.FASHION CONSULTANT Work Phone: [facility] 08-19-2022 16:07-0400 Heart rate 86 /min Lyric Tannhof SOLID FIBER PASTER OPERATOR.FASHION CONSULTANT Work Phone: [facility] 08-19-2022 16:07-0400 Respiratory rate 18 /min Lyric Whitmanhof SOLID FIBER PASTER OPERATOR.FASHION CONSULTANT Work Phone: [facility] 08-19-2022 16:07-0400 SaO2% (BldA) [Mass fraction] 99 % Lyric Whitmanhof SOLID FIBER PASTER OPERATOR.FASHION CONSULTANT Work Phone: [facility] 08-19-2022 16:07-0400 Systolic blood pressure 118 mm[Hg] Lyric Whitmanhof SOLID FIBER PASTER OPERATOR.FASHION CONSULTANT Work Phone: [facility] 12-25-2021 11:06-0500 Diastolic Blood Pressure Non-Invasive 65 1 MARICRUZ ZAMUDIO MD [facility] 12-25-2021 11:06-0500 Heart rate 66 /min MARICRUZ ZAMUDIO MD [facility] 12-25-2021 11:06-0500 Respiratory rate 20 /min MARICRUZ ZAMUDIO MD [facility] 12-25-2021 11:06-0500 Systolic Blood Pressure Non-Invasive 130 1 MARICRUZ ZAMUDIO MD [facility] 12-25-2021 09:28-0500 Body height 165.1 cm MARICRUZ ZAMUDIO MD [facility] 12-25-2021 09:28-0500 Body weight 90 kg MARICRUZ ZAMUDIO MD [facility] 12-25-2021 09:28-0500 Diastolic Blood Pressure Non-Invasive 87 1 MARICRUZ ZAMUDIO MD [facility] 12-25-2021 09:28-0500 Heart rate 87 /min MARICRUZ ZAMUDIO MD [facility] 12-25-2021 09:28-0500 Respiratory rate 22 /min MARICRUZ ZAMUDIO MD [facility] 12-25-2021 09:28-0500 Systolic Blood Pressure Non-Invasive 132 1 MARICRUZ ZAMUDIO MD [facility] 12-09-2021 12:22-0400 Body temperature 98.2 [degF] Delmer Bradshaw SOLID FIBER PASTER OPERATOR.FASHION CONSULTANT Work Phone: [facility] 12-09-2021 12:22-0400 Body weight 91.26 kg Delmer Bradshaw SOLID FIBER PASTER OPERATOR.FASHION CONSULTANT Work Phone: [facility] 12-09-2021 12:22-0400 Diastolic blood pressure 80 mm[Hg] Delmer Bradshaw SOLID FIBER PASTER OPERATOR.FASHION CONSULTANT Work Phone: [facility] 12-09-2021 12:22-0400 Heart rate 100 /min Delmer Augustine SOLID FIBER PASTER OPERATOR.FASHION CONSULTANT Work Phone: [facility] 12-09-2021 12:22-0400 Respiratory rate 21 /min Delmer Augustine SOLID FIBER PASTER OPERATOR.FASHION CONSULTANT Work Phone: [facility] 12-09-2021 12:22-0400 SaO2% (BldA) [Mass fraction] 99 % Delmer Augustine SOLID FIBER PASTER OPERATOR.FASHION CONSULTANT Work Phone: [facility] 12-09-2021 12:22-0400 Systolic blood pressure 120 mm[Hg] Delmer Augustine SOLID FIBER PASTER OPERATOR.FASHION CONSULTANT Work Phone: [facility] 10-27-2021 18:13-0400 Body temperature 98.6 [degF] Ansley Chen SOLID FIBER PASTER OPERATOR.FASHION CONSULTANT Work Phone: [facility] 10-27-2021 18:13-0400 Body weight 85.91 kg Ansley Chen SOLID FIBER PASTER OPERATOR.FASHION CONSULTANT Work Phone: [facility] 10-27-2021 18:13-0400 Diastolic blood pressure 78 mm[Hg] Ansley Chen SOLID FIBER PASTER OPERATOR.FASHION CONSULTANT Work Phone: [facility] 10-27-2021 18:13-0400 Heart rate 91 /min Ansley Chen SOLID FIBER PASTER OPERATOR.FASHION CONSULTANT Work Phone: [facility] 10-27-2021 18:13-0400 Respiratory rate 18 /min Ansley Chen SOLID FIBER PASTER OPERATOR.FASHION CONSULTANT Work Phone: [facility] 10-27-2021 18:13-0400 SaO2% (BldA) [Mass fraction] 99 % Ansley Chen SOLID FIBER PASTER OPERATOR.FASHION CONSULTANT Work Phone: [facility] 10-27-2021 18:13-0400 Systolic blood pressure 120 mm[Hg] Ansley Chen SOLID FIBER PASTER OPERATOR.FASHION CONSULTANT Work Phone: [facility] Encounters Encounter Date Encounter Type Care Provider Facility Start: 03-12-2023 End: 03-12-2023 ambulatory SVETLANA SCHAEFFER Facility:[facility] Start: 02-23-2023 End: 02-23-2023 ambulatory ANGELINE KULKARNI Facility:[facility] Start: 02-09-2023 Telephone encounter Angeline Kulkarni MD Work Phone: OB/Gynecology Procedures Date Procedure Procedure Detail Performing Clinician Start: 01-17-2023 URINE OB DIP B/O Michael Granados MD Work Phone: Start: 01-13-2023 URINE OB DIP B/O Stephen Pretty MD Work Phone: Start: 01-10-2023 biophysical pr ofile non-stress testing Mayito Granados MD Work Phone: Start: 01-05-2023 URINE OB DIP B/O Shashi Reynolds SOLID FIBER PASTER OPERATOR.CNM Work Phone: Start: 01-05-2023 biophysical pr ofile non-stress testing Mayito Granados MD Work Phone: Start: 12-31-2022 URINE OB DIP B/O Angeline Kulkarni MD Work Phone: Start: 12-28-2022 biophysical pr ofile non-stress testing Mayito Granados MD Work Phone: Start: 12-24-2022 Us preg uterus after 1st trimest 1/ gestation Negin Otoole DO Work Phone: Start: 12-23-2022 Antibody screen SONY SUTTON Plan of Treatment Date Care Activity Detail Author Start: 02-23-2026 Screening for malign ant neoplasm of cervix Pap Testing [facility] Start: 12-15-2024 Pap Testing Pap Testing [facility] Start: 12-15-2024 Screening for malign ant neoplasm of cervix Pap Testing [facility] Start: 09-20-2023 Urine microalbumin profile DTaP,Tdap,Td Vaccine (7 - Td or Tdap) [facility] Start: 06-19-2023 Chlamydia Screening (18-24) Chlamydia Screening (18-24) [facility] Start: 06-19-2023 GC (Gonorrhea) Scree delmy (18-24) GC (Gonorrhea) Screening (18-) [facility] Start: 06-19-2023 Screening for Chlamy gogo trachomatis Chlamydia Screening (18-24) [facility] Start: 02-07-2023 Depression Assessment Depression Ass essment [facility] Start: 12-20-2022 End: 03-21-2023 CBC panel - Blood by Automated count CBC Lab Routine 33 weeks gestation of Expected: 12/20/2022, Expires: 03/21/2023 [facility] Work Phone: Immunizations Immunization Date Immunization Notes Care Provider Yamel crane 11-22-2022 RHO(D) immune globul in- IV or IM Danni Reynolds SOLID FIBER PASTER OPERATOR.CNM Work Phone: [facility] Work Phone: 09-19-2013 human papilloma viru s vaccine, quadrivalent Ansley Patrice SOLID FIBER PASTER OPERATOR.CNM Work Phone: [facility] Work Phone: 09-19-2013 tetanus toxoid, redu marycruz diphtheria toxoid, and acellular pertussis vaccine, adsorbed Ansley Patrice SOLID FIBER PASTER OPERATOR.CNM Work Phone: [facility] Work Phone: 09-26-2006 diphtheria, tetanus toxoids and acellular pertussis vaccine, unspecified formulation Ansley Ibrahim SOLID FIBER PASTER OPERATOR.CNM Work Phone: [facility] Work Phone: 09-26-2006 hepatitis A vaccine, unspecified formulation Ansley Patrice SOLID FIBER PASTER OPERATOR.CNM Work Phone: [facility] Work Phone: 09-26-2006 measles, mumps, rube lla, and varicella virus vaccine Ansley Ibrahim SOLID FIBER PASTER OPERATOR.CNM Work Phone: [facility] Work Phone: 09-26-2006 poliovirus vaccine, inactivated Ansley Ibrahim SOLID FIBER PASTER OPERATOR.CNM Work Phone: [facility] Work Phone: 11-23-2004 diphtheria, tetanus toxoids and acellular pertussis vaccine, unspecified formulation Ansley Ibrahim SOLID FIBER PASTER OPERATOR.CNM Work Phone: [facility] Work Phone: 11-23-2004 haemophilus influenz ae type b vaccine, conjugate unspecified formulation Ansleyhenrietta Ibrahim APRN.CNM Work Phone: [facility] Work Phone: 11-23-2004 pneumococcal conjuga te vaccine, 7 valent Ansleyhenrietta Ibrahim APRN.CNM Work Phone: [facility] Work Phone: 11-23-2004 poliovirus vaccine, inactivated Ansleyhenrietta Ibrahim APRN.CNM Work Phone: [facility] Work Phone: 11-23-2004 varicella virus vaccine Biarolando shrestha Patrice LANDRYN.CNM Work Phone: [facility] Work Phone: 03-27-2002 haemophilus influenz ae type b vaccine, conjugate unspecified formulation Ansley Ibrahim APRN.CNM Work Phone: [facility] Work Phone: 03-27-2002 hepatitis B vaccine, pediatric or pediatric/adolescent dosage Ansley Ibrahim APRN.CNM Work Phone: [facility] Work Phone: 03-27-2002 measles, mumps and rubella virus vaccine Ansleyhenrietta Ibrahim APRN.CNM Work Phone: [facility] Work Phone: 03-27-2002 pneumococcal conjuga te vaccine, 7 valent Ansleyhenrietta Ibrahim APRN.CNM Work Phone: [facility] Work Phone: 06-30-2001 DTP-Haemophilus influenzae type b conjugate vaccine Ansley Ibrahim APRN.CNM Work Phone: [facility] Work Phone: 06-30-2001 pneumococcal polysaccharide vaccine, 23 valent Anslye Ibrahim APRN.CNM Work Phone: [facility] Work Phone: 05-05-2001 DTP-Haemophilus influenzae type b conjugate vaccine Ansley Ibrahim SOLID FIBER PASTER OPERATOR.CNM Work Phone: [facility] Work Phone: 05-05-2001 pneumococcal polysaccharide vaccine, 23 valent Ansley Ibrahim SOLID FIBER PASTER OPERATOR.CNM Work Phone: [facility] Work Phone: 05-05-2001 poliovirus vaccine, inactivated Ansley Ibrahim SOLID FIBER PASTER OPERATOR.CNM Work Phone: [facility] Work Phone: 03-07-2001 DTP-Haemophilus influenzae type b conjugate vaccine Ansley Ibrahim SOLID FIBER PASTER OPERATOR.CNM Work Phone: [facility] Work Phone: 03-07-2001 pneumococcal conjuga te vaccine, 7 valent Ansley Ibrahim SOLID FIBER PASTER OPERATOR.CNM Work Phone: [facility] Work Phone: 03-07-2001 poliovirus vaccine, inactivated Ansley Ibrahim SOLID FIBER PASTER OPERATOR.CNM Work Phone: [facility] Work Phone: 01-30-2001 hepatitis B vaccine, pediatric or pediatric/adolescent dosage Ansley Ibrahim SOLID FIBER PASTER OPERATOR.CNM Work Phone: [facility] Work Phone: 2000 hepatitis B vaccine, pediatric or pediatric/adolescent dosage Ansley Ibrahim SOLID FIBER PASTER OPERATOR.CNM Work Phone: [facility] Work Phone: Payers Date Payer Category Payer Unknown [id number] 2021 Medicaid [id number] 2021 Medicaid [id number] 2013 Private Health Insurance [id number] 2000 Unknown [id number] 2000 Unknown [id number] 2000 Unknown [id number] 1977 Unknown [id number] [id number] 1977 Unknown [id number] 1959 Private Health Insurance [id number] Social History Date Type Detail Facility Start: 10-27-2021 End: 11-15-2022 Tobacco smoking status NHIS Ex-smoker [facility] End: 11-08-2022 History of tobacco use Current smoker [facility] End: 11-08-2022 History of tobacco use Cigarette Smoker [facility] Start: 10-27-2021 End: 11-15-2022 Tobacco use and exposure Smokeless tobacco non-user [facility] Start: 10-27-2021 End: 01-26-2023 Alcohol intake Lifetime non-drinker (finding) [facility] Start: 10-27-2021 [facility] Start: 2000 Sex Assigned At Not on file [facility] Start: 10-17-2021 End: 12-09-2021 Exposure to SARS-CoV-2 (event) Not sure [facility] Tobacco smoking status No Smokin g Status Entered [facility] Sex Assigned At Female [facility] Start: 08-19-2022 End: 11-15-2022 History of Social function [facility] Start: 08-19-2022 End: 11-15-2022 Tobacco use panel [facility] History of tobacco use Passive smoker [facility] National Score (1-10 0), lower number is lower risk Not on file [facility] Start: 05-12-2022 [facility] Start: 11-15-2022 Education 11 [facility] Goals Date Patient Goal Desired Activity /State Personal health goal Personal health goal Mental Status Date Assessment Result Facility 12-25-2021 Mental Status Orientation Oriented x 4 [facility] 12[facility]25[facility]21 [facility] Clinical Notes 10-27-2021 to 03-12-2023 Telephone Encounter - Stephanie Boateng RN - 02/09/2023 11:42 AM ESTTelephone Encounter - Trista Brown LPN - 02/09/2023 9:43 AM Stephanie Delcid RN - 01/19/2023 8:27 AM EST Note Date & Type Note Facility 03-12-2023 Note HNO ID: [id number] Author: ANSLEY CHEN APRN.FASHION CONSULTANT Service: ? Author Type: Nurse Practitioner Type: Progress Notes Filed: 03/12/2023 14:21 Note Text: This note was created using Links[employer]. Subjective Chana De La O is a 22 year old female. 22 year old female with PMH of asthma presents today with acute onset cough for 2 days. Pertinent positives include dyspnea, chest tightness, dry cough, and rhinorrhea with clear nasal drainage. Pertinent negatives include headache, sinus pain, fever, fatigue, GI upset, body aches, chest pain and dizziness/lightheadedness. Patient currently vapes. She states she has not seen a provider for her asthma in years and has been using an albuterol inhaler BID to control her asthma, which ran out 4 days ago. She does not currently have a PCP. The history is provided by the patient. Cough This is a new problem. The current episode started more than 2 days ago. The problem occurs constantly. The problem has not changed since onset.The cough is Non-productive. There has been no fever. Associated symptoms include rhinorrhea, shortness of breath and wheezing. Pertinent negatives include no chest pain, no chills, no sweats, no ear congestion, no ear pain, no headaches, no sore throat, no myalgias and no eye redness. She has tried nothing for the symptoms. She is a smoker. Her past medical history is significant for asthma. Her past medical history does not include COPD. PAST MEDICAL HISTORY Diagnosis Date ADHD (attention deficit hyperactivity disorder) Anemia Asthma Gastroparesis IBS (irritable bowel syndrome) PCOS (polycystic ovarian syndrome) Placental abruption in third trimester 12/27/2022 Reactive airway disease inhaler use with URIs PAST SURGICAL HISTORY Procedure Laterality Date DANDC SUCTION 08/31/2021 Retained POC after 08/11/21 vaginal delivery REMOVAL GALLBLADDER REMOVE TONSILS/ADENOIDS,12+ Y/O 2018 SALPINGECTOMY Bilateral 03/04/2023 ALLERGIES Seasonal Allergies MEDICATIONS ondansetron (ZOFRAN) 8 mg tablet Take by mouth three times a day as needed. prochlorperazine (COMPAZINE) 10 mg tablet Take 10 mg by mouth once daily. ondansetron orally disintegrating (ZOFRAN ODT) 4 mg disintegrating tablet TAKE 2 TABLETS BY MOUTH EVERY 8 HOURS NEEDED FOR NAUSEA ferrous sulfate 325 mg (65 mg iron) tablet Take by mouth. albuterol HFA (PROAIR HFA) 90 mcg/actuation inhaler Inhale 2 Puffs as instructed every 6 hours as needed. albuterol HFA (PROVENTIL HFA, VENTOLIN HFA) 90 mcg/actuation inhaler Inhale 2 Puffs as instructed every 4 hours as needed for wheezing/shortness of breath. Inhalational Spacing Device 1 Device one time only for 1 dose. predniSONE (DELTASONE) 10 mg tablet Take 4 tabs daily for 3 days, then 2 tabs daily for 3 days, then 1 tab daily for 3 days with food. vit/iron fum/folic ac ( 1 + 1 ORAL) Take by mouth. (Patient not taking: Reported on 11/15/2022) FAMILY HISTORY Problem Relation Age of Onset No Known Problems Mother Diabetes Father No Known Problems Sister Breast Cancer Maternal Grandmother Obstructive Sleep Apnea Maternal Grandfather Diabetes Paternal Grandfather No Known Problems Half-brother No Known Problems Daughter Social History Tobacco Use Smoking status: Former Years: 8 Types: Cigarettes Quit date: 11/08/2022 Years since quittin.3 Passive exposure: Past Smokeless tobacco: Never Tobacco comments: vape Vaping Use Vaping Use: Some days Substances: Nicotine Substance Use Topics Alcohol use: Never Drug use: Not Currently Types: Marijuana Review of Systems Constitutional: Negative for activity change, appetite change, chills, fatigue and fever. HENT: Positive for rhinorrhea. Negative for congestion, ear discharge, ear pain, sinus pressure, sinus pain and sore throat. Eyes: Negative for pain, discharge, redness and itching. Respiratory: Positive for cough, chest tightness, shortness of breath and wheezing. Cardiovascular: Negative for chest pain. Gastrointestinal: Negative for abdominal pain, blood in stool, diarrhea, nausea and vomiting. Musculoskeletal: Negative for arthralgias and myalgias. Skin: Negative for color change. Neurological: Negative for dizziness, light-headedness and headaches. Objective BP 104/62 Pulse 82 Temp 36.3 ?C (97.4 ?F) Resp 16 Wt 90.7 kg (200 lb) LMP 03/23/2022 (Approximate) SpO2 98% BMI 33.28 kg/m? Physical Exam Constitutional: General: She is awake. She is not in acute distress. Appearance: Normal appearance. She is normal weight. She is not ill-appearing, toxic-appearing or diaphoretic. HENT: Head: Normocephalic. Right Ear: Hearing, tympanic membrane, ear canal and external ear normal. No decreased hearing noted. No laceration, drainage, swelling or tenderness. No middle ear effusion. There is no impacted cerumen. No foreign body. No mastoid tenderness. No PE tube. No hemotymp (more content not included)... [facility] 02-23-2023 Note HNO ID: [id number] Author: ANGELINE CARRANZA MD Service: ? Author Type: Physician Type: Progress Notes Filed: 02/23/2023 11:03 Note Text: Cst offered: Patient declines. VISIT Chana De La O is a 22 year old year old here for visit. Delivery Summary: 01/18/2023 Female Avelyn 4lb 15 oz ROS/ Recovery: Feeding: Bottle feeding problems: None Menses since delivery: none Menstrual pattern prior to : Regular periods [place] since delivery: Resumed Depression: denies symptoms of [...] external genitalia normal, normal Bartholin's glands, urethra, Mcfarland's glands, no vulvar lesions, no cervical lesions, [...] today for salpingectomy Angeline Del Castillo MD [facility] 02-09-2023 Miscellaneous Notes Formattin g of this note might be different from the original. Patient notified. Agreeable to appointment change. Cancelled her visit on 02/28. Stephanie Boateng, RN Left message to call office. Patient is scheduled for surgery 03/04/2023 at [facility]. Please ask patient if she can come in for appointment and pre-op appointment on 02/23/2023 at 9:50 am. Patient has an appointment scheduled on 02/28 for a visit but only a 10 min appt. and will need at least 20 min for both documented in this encounter [facility] 01-26-2023 Note HNO ID: [id number] Author: Angeline Carranza MD Service: ? Author [...] issues Sleep: no sleep concerns, feels rested [place] since delivery: Not resumed Emotional support: Yes [...] and as needed Angeline Del Castillo MD [facility] 01-19-2023 Note HNO ID: [id number] Author: Stephanie Boateng RN Service: ? Author Type: Registered Nurse Type: Progress Notes Filed: 01/19/2023 8:29 AM Note Text: Patient delivered via at [facility] on 01/18/23 per Ansley Ibrahim CNM. See OB Outcome note. Stephanie Boateng RN [facility] 01-19-2023 History of Presen t illness Narrative Patient delivered via at [facility] on 01/18/23 per Ansley Ibrahim CNM. See OB Outcome note. Stephanie Boateng RN documented in this encounter [facility] 01-17-2023 Miscellaneous Notes Formattin g of this [...] for IUGR reviewed, questions answered, consent signed. [facility] 09/14 today. . Mayito Granados M.D. documented in this encounter [facility] 01-17-2023 Instructions Danitza Hunter MA - 01/17/2023 12:09 PM EST SEQUENTIAL SCREENINGS The [facility] offers sequential screenings for women who are [...] It will require an appointment with our sheet metal technician. This is not an ultrasound performed [...] the above symptoms, contact our office at [phone] and ask to speak with a nurse. After hours, you can call doctors registry at [phone] OR call [facility] at [phone] and ask to have the doctor filtration plant mechanic paged. If you consider this an emergency, dial [phone]- or go to your nearest emergency department. NEED HELP? Are you dealing with a violent or abusive relationship? Are you a victim of rape or sexual assult? Call [facility] ([place]) 24 hour Crisis Hotline: 632.787.5473 or 286-266-0692. MANUAL Your Guide to a Healthy manual is now on-line. Visit [email or web address] to download your free copy documented in this encounter [facility] 01-13-2023 Note HNO ID: [id number] Author: Stephen Pretty MD Service: ? Author [...] None Interpretation: Reactive SIGNATURE: Stephen Pretty MD [facility] 01-13-2023 History of Presen t illness Narrative [...] Stephen Pretty MD documented in this encounter [facility] 01-13-2023 Miscellaneous Notes Formattin g of this [...] Stephen Pretty MD documented in this encounter [facility] 01-13-2023 Instructions Danitza Hunter MA - 01/13/2023 10:46 AM EST SEQUENTIAL SCREENINGS The [facility] offers sequential screenings for women who are [...] It will require an appointment with our sheet metal technician. This is not an ultrasound performed [...] the above symptoms, contact our office at [phone] and ask to speak with a nurse. After hours, you can call doctors registry at [phone] OR call [facility] at [phone] and ask to have the doctor filtration plant mechanic paged. If you consider this an emergency, dial 9-8-3 or go to your nearest emergency department. NEED HELP? Are you dealing with a violent or abusive relationship? Are you a victim of rape or sexual assult? Call [facility] ([place]) 24 hour Crisis Hotline: 809.114.8368 or 090-052-8133. MANUAL Your Guide to a Healthy manual is now on-line. Visit [email or web address] to download your free copy documented in this encounter [facility] 01-11-2023 Miscellaneous Notes Formattin g of this [...] Mayito Granados MD documented in this encounter [facility] 01-10-2023 Note HNO ID: [id number] Author: Mayito Granados MD Service: ? Author [...] I and Reactive SIGNATURE: Mayito Granados MD [facility] 01-10-2023 History of Presen t illness Narrative [...] Mayito Granados MD documented in this encounter [facility] 01-10-2023 Miscellaneous Notes Formattin g of this note might be different from the original. NST only Mayito Granados MD documented in this encounter [facility] 01-05-2023 Miscellaneous Notes Formattin g of this [...] Danni Reynolds APRN.CNM documented in this encounter [facility] 01-05-2023 Instructions Trista Brown LPN - 01/05/2023 2:41 PM EST SEQUENTIAL SCREENINGS The [facility] offers sequential screenings for women who are [...] It will require an appointment with our sheet metal technician. This is not an ultrasound performed [...] the above symptoms, contact our office at [phone] and ask to speak with a nurse. After hours, you can call doctors registry at [phone] OR call [facility] at [phone] and ask to have the doctor filtration plant mechanic paged. If you consider this an emergency, dial 9-1-1 or go to your nearest emergency department. NEED HELP? Are you dealing with a violent or abusive relationship? Are you a victim of rape or sexual assult? Call [facility] ([place]) 24 hour Crisis Hotline: 979.797.9032 or 537-172-5970. MANUAL Your Guide to a Healthy manual is now on-line. Visit [email or web address] to download your free copy documented in this encounter [facility] 12-31-2022 Note HNO ID: [id number] Author: Angeline Carranza MD Service: ? Author [...] and Reactive SIGNATURE: Angeline Del Castillo MD [facility] 12-31-2022 History of Presen t illness Narrative [...] Del Castillo MD documented in this encounter [facility] 12-31-2022 Miscellaneous Notes Formattin g of this note might be different from the original. NST only. documented in this encounter [facility] 12-31-2022 Cindy Paige Ma - 12/31/2022 2:56 PM EST SEQUENTIAL SCREENINGS The [facility] offers sequential screenings for women who are [...] It will require an appointment with our sheet metal technician. This is not an ultrasound performed [...] the above symptoms, contact our office at [phone] and ask to speak with a nurse. After hours, you can call doctors registry at [phone] OR call [facility] at [phone] and ask to have the doctor filtration plant mechanic paged. If you consider this an emergency, dial 5-9-3 or go to your nearest emergency department. NEED HELP? Are you dealing with a violent or abusive relationship? Are you a victim of rape or sexual assult? Call [facility] ([place]) 24 hour Crisis Hotline: 347.962.4297 or 528-010-3112. MANUAL Your Guide to a Healthy manual is now on-line. Visit [email or web address] to download your free copy documented in this encounter [facility] documented as of this encounter (statuses as of 12/28/2022) [facility]11-21-2023 History of Past illness Narrative* Problem Noted [...] 1. Continued obstetrical care with her primary supervisor carbon paper coating is recommended. 2. Follow up q2 weeks to evaluate biometric parameters and q4 weeks to evaluate anatomy. These are planned with the [facility]. 3. surveillance as follows: twice weekly BPP with weekly UA Doppler assessment. These are planned with the [facility](BPP)/ her primary supervisor carbon paper coating(BPP or NST). 4. consultation with Neonatology has [...] of this encounter (statuses as of 12/28/2022) [facility] History of Past illness Narrative* Problem Noted [...] 1. Continued obstetrical care with her primary supervisor carbon paper coating is recommended. 2. Follow up q2 weeks to evaluate biometric parameters and q4 weeks to evaluate anatomy. These are planned with the [facility]. 3. surveillance as follows: twice weekly BPP with weekly UA Doppler assessment. These are planned with the [facility](BPP)/ her primary supervisor carbon paper coating(BPP or NST). 4. consultation with Neonatology has [...] of this encounter (statuses as of 12/31/2022) [facility] History of Past illness Narrative* Problem Noted [...] 1. Continued obstetrical care with her primary supervisor carbon paper coating is recommended. 2. Follow up q2 weeks to evaluate biometric parameters and q4 weeks to evaluate anatomy. These are planned with the Treatment [facility]. 3. surveillance as follows: twice weekly BPP with weekly UA Doppler assessment. These are planned with the [facility](BPP)/ her primary supervisor carbon paper coating(BPP or NST). 4. consultation with Neonatology has [...] of this encounter (statuses as of 01/06/2023) [facility] History of Past illness Narrative* Problem Noted [...] 1. Continued obstetrical care with her primary supervisor carbon paper coating is recommended. 2. Follow up q2 weeks to evaluate biometric parameters and q4 weeks to evaluate anatomy. These are planned with the [facility]. 3. surveillance as follows: twice weekly BPP with weekly UA Doppler assessment. These are planned with the [facility](BPP)/ her primary supervisor carbon paper coating(BPP or NST). 4. consultation with Neonatology has [...] of this encounter (statuses as of 01/06/2023) [facility] History of Past illness Narrative* Problem Noted [...] 1. Continued obstetrical care with her primary supervisor carbon paper coating is recommended. 2. Follow up q2 weeks to evaluate biometric parameters and q4 weeks to evaluate anatomy. These are planned with the [facility]. 3. surveillance as follows: twice weekly BPP with weekly UA Doppler assessment. These are planned with the [facility](BPP)/ her primary supervisor carbon paper coating(BPP or NST). 4. consultation with Neonatology has [...] of this encounter (statuses as of 01/10/2023) [facility] History of Past illness Narrative* Problem Noted [...] 1. Continued obstetrical care with her primary supervisor carbon paper coating is recommended. 2. Follow up q2 weeks to evaluate biometric parameters and q4 weeks to evaluate anatomy. These are planned with the [facility]. 3. surveillance as follows: twice weekly BPP with weekly UA Doppler assessment. These are planned with the [facility](BPP)/ her primary supervisor carbon paper coating(BPP or NST). 4. consultation with Neonatology has [...] of this encounter (statuses as of 01/11/2023) [facility] History of Past illness Narrative* Problem Noted [...] = 8/8 9. Normal female genitalia. [facility] [place] Plan of Care Diagnosis: Early growth restriction (AC <10th percentile). Declined aneuploidy screening, maternal infectious serologies, and invasive testing. Plan: 1. Continued obstetrical care with her primary supervisor carbon paper coating is recommended. 2. Follow up q2 weeks to evaluate biometric parameters and q4 weeks to evaluate anatomy. These are planned with the Treatment [facility]. 3. surveillance as follows: twice weekly BPP with weekly UA Doppler assessment. These are planned with the [facility] Center(P)/ her primary supervisor carbon paper coating(BPP or NST). 4. consultation with Neonatology has [...] of this encounter (statuses as of 01/11/2023) [facility] History of Past illness Narrative* Problem Noted [...] BPP = 8/8 9. Normal female genitalia. [facility] Plan of Care Diagnosis: Early growth restriction (AC <10th percentile). Declined aneuploidy screening, maternal infectious serologies, and invasive testing. Plan: 1. Continued obstetrical care with her primary supervisor carbon paper coating is recommended. 2. Follow up q2 weeks to evaluate biometric parameters and q4 weeks to evaluate anatomy. These are planned with the Treatment [facility]. 3. surveillance as follows: twice weekly BPP with weekly UA Doppler assessment. These are planned with the [facility](BPP)/ her primary supervisor carbon paper coating(BPP or NST). 4. consultation with Neonatology has [...] of this encounter (statuses as of 01/13/2023) [facility]11-[facility]-20[facility] History of Past illness Narrative* Problem Noted [...] BPP = 8/8 9. Normal female genitalia. [facility] Plan of Care Diagnosis: Early growth restriction (AC <10th percentile). Declined aneuploidy screening, maternal infectious serologies, and invasive testing. Plan: 1. Continued obstetrical care with her primary supervisor carbon paper coating is recommended. 2. Follow up q2 weeks to evaluate biometric parameters and q4 weeks to evaluate anatomy. These are planned with the Treatment [facility]. 3. surveillance as follows: twice weekly BPP with weekly UA Doppler assessment. These are planned with the [facility](BPP)/ her primary supervisor carbon paper coating(BPP or NST). 4. consultation with Neonatology has [...] of this encounter (statuses as of 01/18/2023) [facility] History of Past illness Narrative* Problem Noted [...] 1. Continued obstetrical care with her primary supervisor carbon paper coating is recommended. 2. Follow up q2 weeks to evaluate biometric parameters and q4 weeks to evaluate anatomy. These are planned with the [facility]. 3. surveillance as follows: twice weekly BPP with weekly UA Doppler assessment. These are planned with the [facility] Center(BPP)/ her primary supervisor carbon paper coating(BPP or NST). 4. consultation with Neonatology has [...] of this encounter (statuses as of 01/19/2023) [facility] History of Past illness Narrative* Problem Noted Date Diagnosed Date Resolved Date growth restriction 12/28/2022 12/28/2022 Placental abruption in third trimester 12/27/2022 02/23/2023 Overview: Admitted Dec 2022 for vaginal bleeding [facility] Last Assessment & Plan: Admitted Dec 2022 for vaginal bleeding [facility] Hosp 4 days with reassuring testing in setting of IUGR. Testing reassuring with resolution. No indication for delivery and discharged home. Depression affecting pregnan cy in third trimester, antepartum 12/24/2022 12/26/2022 34 weeks gestation of 12/23/2022 02/23/2023 Overview: - s/p BMZ - Regular Diet - NST BID - Cephalic - GBS negative Poor growth affecting management of mother in third trimester 12/23/2022 02/23/2023 Overview: - Per records and patient but ultrasound [...] at 39 weeks if <10% and >3% Last Assessment & Plan: Patient prior concerning for IUGR. Delivered at [...] at 39 weeks if <10% and >3% Hyperemesis gravidarum 07/14/2022 12/28/202212/28 Nausea and vomiting [...] 1. Continued obstetrical care with her primary supervisor carbon paper coating is recommended. 2. Follow up q2 weeks to evaluate biometric parameters and q4 weeks to evaluate anatomy. These are planned with the Treatment [facility]. 3. surveillance as follows: twice weekly BPP with weekly UA Doppler assessment. These are planned with the [facility](P)/ her primary supervisor carbon paper coating(BPP or NST). 4. consultation with Neonatology has [...] as of this encounter (statuses as of 03/28/2023) [facility]11-21-2023 NoteHNO ID: [id number] Author: Rudolph Ralph MD Service: ? Author [...] O DATE: December 28, 2022 TIME: 10:28 [facility]11-21-2023 NoteHNO ID: [id number] Author: Ansley Ibrahim APRN.[facility] Service: ? Author Type: Cabinet Abrasive Sandblaster Type: Progress Notes Filed: 12/28/2022 10:22 AM Note Text: BERTHA-NST SUMMARY PROVIDER ASSESSMENT AND INTERPRETATION Chana De La O is a 22 year old female, , who is at 34w6d with an CHAN of 02/02/2023, by Ultrasound dating method. Indications for NST: Obesity Baseline: 130 Variability: Moderate Accelerations: Present 15 X 15 Decelerations: Variable Contractions: TOCO: None Interpretation: Reactive SIGNATURE: Ansley Ibrahim APRN.[facility]11-21-2023 NoteHNO ID: [id number] Author: Rudolph Ralph MD Service: ? Author [...] consult secondary to IUGR. Recently discharged from [facility] for vaginal bleeding in 3rd trimester. I [...] antepartum 11/15/2022 Overview Note: - Transfer from [place] to [place]. records added by Eve Gastroparesis 11/15/2022 Overview Note: - Diagnosed with gastroparesis in September 28 after gallbladder surgery. - Sees GI - Managed with diet alterations. No medications History of depression 11/15/2022 Overview Note: - Hx of Suicidal attempt as a teenager - Denies any history of depression - No meds currently - Mood stable, no SI/HI Engages in mady (more content not included)...[facility] 12-28-2022 History of Present illness Narrative* Rudolph aRlph MD - 12/28/2022 10:28 AM EST OBSTETRICS [...] consult secondary to IUGR. Recently discharged from [facility] for vaginal bleeding in 3rd trimester. I [...] of 12/23/2022 Overview Note: - s/p BMZ 12/23-17 - Regular Diet - NST BID - [...] antepartum 11/15/2022 Overview Note: - Transfer from [place] to [place]. records added by Eve Gastroparesis 11/15/2022 Overview Note: - Diagnosed with [...] 2022 TIME: 9:20 AM [facility] History of Present illness Narrative* Ansley Ibrahim APRN.[facility] - 12/28/2022 10:21 AM EST BERTHA-NST SUMMARY PROVIDER ASSESSMENT AND INTERPRETATION Chana De La O is a 22 year old female, , who is at 34w6d with an CHAN of 02/02/2023, by Ultrasound dating method. Indications for NST: Obesity Baseline: 130 Variability: Moderate Accelerations: Present 15 X 15 Decelerations: Variable Contractions: TOCO: None Interpretation: Reactive SIGNATURE: Ansley Ibrahim APRN.CNM [facility] Miscellaneous Notes* Quick Notes - Ansley Ibrahim APRN.CNM - 12/28/2022 10:20 AM EST BERTHA-NST only. PN visit end of week. Ansley Ibrahim APRN.CNM documented in this encounterFirelands Regional Medical Center11-20-2023 NoteHNO ID: [id number] Author: Courtney Gipson MD Service: Obstetrics Author Type: Physician Type: Procedures Filed: 12/27/2022 1:11 PM Note Text: OBSTETRICS NST SUMMARY SERVICE DATE: December 27, 2022 The patient is a 22 year old female, , who is at 34w5d with an CHAN of 02/02/2023, by Ultrasound dating method. NST OBJECTIVE FINDINGS PER NURSE: Start Time: 728 (12/27/22799 : Katherine Mabry RN) Complete Time: 08 (12/27/22 08 : Katherine Mabry, RN) Indications: Other: Comment (previous vag bleed) (12/27/22 08 : Katherine Mabry, RN) Patient Reason For: monitor FHR (12/27/22799 : Katherine Mabry, RN) NST Explanation: Procedure Explained;Monitor Explained;Verbalizes Understanding (12/27/22799 : Katherine Mabry, RN) Acoustic Stimulator: No (12/27/22799 : Katherine Mabry, RN) Interventions: MONITORING/ASSESSMENT: Baseline: 135 bpm (12/27/22 0800 : Katherine Mabry, RN) Variability: Moderate (6-25 bpm) (12/27/22 08 : Katherine Mabry, RN) Accelerations: Present (12/27/22 08 : Katherine Mabry STEVENSON) Decelerations: Decelerations: None (12/27/22 0800 : Katherine Mabry, STEVENSON) Contractions: Not present (12/27/22 08 : Katherine Mabry RN) Frequency: Above information forwarded to Blaise (12/27/22 08 : Katherine Mabry, STEVENSON) for final review and interpretation. SIGNATURE: Katherine Mabry RN PATIENT NAME: Chana De La O DATE: December 27, 2022 TIME: 8:18 AM Reactive.Courtney Gipson, [facility]11-20-2023 NoteHNO ID: [id number] Author: Rudolph Ralph MD Service: Obstetrics Author [...] antepartum 11/15/2022 Overview Note: - Transfer from [place] to [place]. records added by [facility] Gastroparesis 11/15/2022 Overview Note: - Diagnosed with [...] for discharge today. Will follow up in [facility] [place] for continued testing. I spent 35 min of floor unit time on this discharge. BP has been normal. Rudolph Ralph [facility]11-19-2023 NoteHNO ID: [id number] Author: Arley, Brittany, RN Service: Nursing Author Type: Registered Nurse [...] : Brittany Tubbs RN) Contractions: Not present (12/26/22 2014 : Brittany Tubbs RN) Frequency: Above information forwarded to Sherri (12/26/222013 : Brittany Tubbs RN) for final review and interpretation. SIGNATURE: Brittany Tubbs RN PATIENT NAME: Chana De La O DATE: December 26, 2022 TIME: 8:55 [facility]11-19-2023 NoteHNO ID: [id number] Author: Svetlana Amador RN Service: Nursing Author Type: Registered Nurse [...] For: monitor baby (12/26/22 1200 : Svetlana Amador RN) NST Explanation: Procedure Explained;Monitor Explained;Verbalizes Understanding (12/26/22 1200 : Svetlana Amador RN) Acoustic Stimulator: No (12/26/22 1200 : Svetlana Amador RN) Interventions: (none) (12/26/22 1200 : Svetlana Amador RN) MONITORING/ASSESSMENT: Baseline: 135 bpm (12/26/22 1200 [...] O DATE: December 26, 2022 TIME: 12:34 [facility]11-19-2023 NoteHNO ID: [id number] Author: Negin Yancey DO Service: Obstetrics Author [...] antepartum 11/15/2022 Overview Note: - Transfer from [place] to [place]. records added by [place] Gastroparesis 11/15/2022 Overview Note: - Diagnosed with [...] O DATE: December 26, 2022 TIME: 5:17 [facility]11-18-2023 NoteHNO ID: [id number] Author: Xenia Rivera RN Service: Nursing Author [...] O DATE: December 25, 2022 TIME: 6:05 [facility]11-18-2023 NoteHNO ID: [id number] Author: Xenia Rivera RN Service: Nursing Author [...] : Xenia Rivera RN) Contractions: Not present (12/25/22 1128 : Xenia Rivera RN) Frequency: Above information forwarded to for final review and interpretation. SIGNATURE: Xenia Rivera RN PATIENT NAME: Chana De La O DATE: December 25, 2022 TIME: 11:41 [facility]11-18-2023 NoteHNO ID: [id number] Author: Svetlana Gutierrez MD Service: Obstetrics Author [...] antepartum 11/15/2022 Overview Note: - Transfer from [place] to [place]. records added by [place] Gastroparesis 11/15/2022 Overview Note: - Diagnosed with [...] O DATE: December 25, 2022 TIME: 5:04 [facility]11-17-2023 NoteHNO ID: [id number] Author: Brittany Tubbs RN Service: Nursing Author [...] O DATE: December 24, 2022 TIME: 8:18 [facility]11-17-2023 NoteHNO ID: [id number] Author: Svetlana Gutierrez MD Service: Obstetrics Author Type: Resident Type: Progress Notes Filed: 12/24/2022 6:14 AM Note Text: Attestation signed by Christian Mondragon DO at 12/24/2022 4:13 PM MFM Attending Note I saw and evaluated the patient. I agree with the resident's findings and plan of care as documented below. Chana is a 2 y/o at 34w2d transported from [place] last evening for new onset VB. also complicated by FGR, vaping/marijuana use, depression, and gastroparesis. Reports large gush of blood yesterday morning that persisted until she arrived at [place]. In addition, she was reporting uterine cramping. [...] antepartum 11/15/2022 Overview Note: - Transfer from [place] to [place]. records added by [place] Gastroparesis 11/15/2022 Overview Note: - Diagnosed with [...] NAME: Chana Macias Ra (more content not included)...[facility]11-16-2023 NoteHNO ID: [id number] Author: Dania Ozuna MD Service: Obstetrics Author [...] Patient or surrogate does not consent to testing.[facility]11-16-2023 Miscellaneous Notes* Telephone Encounter - Geeta [...] notified. Geeta Santo RN documented in this encounterFirelands Regional Medical Center11-13-2023 Miscellaneous Notes* Quick Notes - Svetlana Schaeffer APRN.SB - 12/20/2022 4:36 PM EST S: Chana [...] ICD10: O42.90 - Reports fluid leaking on 12/17 - Negative ferning - Negative pooling - Positive Nitrazine paper Case reviewed with Dr. Granados. Patient to go labor and delivery for rule out SROM. Svetlana Schaeffer APRN.CNP documented in this encounterFirelands Regional Medical Center11-13-2023 Instructions* Patient Instructions* Nadia Wilkins LPN - 12/20/2022 3:27 PM EST SEQUENTIAL SCREENINGS The [facility] offers sequential screenings for women who are [...] testing. It will require an appointment withour sheet metal technician. This is not an ultrasound performed [...] the above symptoms, contact our office at [phone] and ask to speak with anurse. After hours, you can call doctors registry at [phone] OR call [facility] at [phone] ask to have the doctor filtration plant mechanic paged. If you consider this an emergency, dial [phone]- or go to your nearest emergency department. NEED HELP? Are you dealing with a violent or abusive relationship? Are you a victim of rape or sexual assult? Call [facility] ([place]) 24 hour Crisis Hotline: 435.978.7688 or 753-596-9574. MANUAL Your Guide to a Healthy manual is now on-line. Visit [email or web address]/HealthyPregnancyGuide to download your free copy documented in this encounterFirelands Regional Medical Center11-01-2023 Miscellaneous Notes* Telephone Encounter - Stephanie Boateng RN - 12/08/2022 12:42 PM EDT Patient notified. States that her boyfriend has her car and she won't be able to make it until after 3PM. Encouraged patient to find other transportation. Updated H&P faxed to l&D. CP to updated [facility] nursing staff as they called to speak [...] proceed. Nadia Wilkins LPN documented in this encounterFirelands Regional Medical Center10-30-2023 Miscellaneous Notes* Quick Notes - Ansley Ibrahim [...] signed. Ansley Ibrahim APRN.CNM documented in this encounterFirelands Regional Medical Center10-30-2023 Instructions* Patient Instructions* Davi Gomez Cma - 12/06/2022 4:28 PM EDT SEQUENTIAL SCREENINGS The [facility] offers sequential screenings for women who are [...] testing. It will require an appointment withour sheet metal technician. This is not an ultrasound performed [...] the above symptoms, contact our office at [phone] and ask to speak with anurse. After hours, you can call doctors registry at [phone] OR call [facility] at [phone] ask to have the doctor filtration plant mechanic paged. If you consider this an emergency, dial 91-0 or go to your nearest emergency department. NEED HELP? Are you dealing with a violent or abusive relationship? Are you a victim of rape or sexual assult? Call [facility] ([place]) 24 hour Crisis Hotline: 662.655.5825 or 229-836-3488. MANUAL Your Guide to a Healthy manual is now on-line. Visit [email or web address]/HealthyPregnancyGuide to download your free copy documented in this encounterFirelands Regional Medical Center10-16-2023 NoteHNO ID: [id number] Author: Danni Reynolds APRN.CNM Service: ? Author Type: Cabinet Abrasive Sandblaster Type: Progress Notes Filed: 11/22/2022 2:26 PM Note Text: INITIAL OB ASSESSMENT- TRANSFER FROM [place] [facility] Provider: Danni Reynolds APRN.CNM HPI: Chana [...] No Multivitamin with Folic acid: Not taking Hindu or heritage: No Would refuse blood transfusion if medically necessary: No Are you currently employed? 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 She is a transfer patient from [place]. See progress note. Danni Reynolds APRN.CNM documented in this encounterFirelands Regional Medical Center10-16-2023 Instructions* Patient Instructions* Devorah Francois Ma - 11/22/2022 12:50 PM EDT Please select the following link to access the [facility] Your Guide to a Healthy . [email or web address] documented in this encounterFirelands Regional Medical Center10-16-2023 History of Present illness Narrative* Danni Reynolds APRN.CNM - 11/22/2022 12:48 PM EDT Images from the original note were not included. INITIAL OB ASSESSMENT- TRANSFER FROM [place] [facility] Provider: Danni Reynolds APRN.CNM HPI: Chana [...] No Multivitamin with Folic acid: Not taking Hindu or heritage: No Would refuse blood transfusion if medically necessary: No Are you currently employed? Yes, Occupation: [employer] worker Do you have any history of [...] Z3A.29 PLAN: - TYPE + SCREEN - WEB PRESS OPERATOR HELPER OFFSET - RHO(D) IMMUNE GLOBULIN 1,500 UNIT (300 MCG)/2 ML INJECTION SYRINGE - SYPHILIS TOTAL W/REFLEX - UA DIP OB, URINE (POC) - URINE OB DIP B/O - GCT- normal -- Plans on epidural and formula feeding - Discussed cessation of marijuana use- patient declines at this time - Patient oriented to practice. Discussed how to access Your guide to a health and the Band [employer]. Reviewed midwifery and dust collector services that are available. Follow up in 2 weeks or sooner prn. Danni Reynolds APRN.CNM documented in this encounterFirelands Regional Medical Center10-09-2023 Miscellaneous Notes* Quick Notes - Luis Manuel [...] other child. Patient is transferring care from [place]. We have received her records and they are sent to Danni Reynolds for review. Patient's last visit with Salvador was October 20. Patient states she was [...] a suicidal attempt and was hospitalized in [place] as a teenager. She states that she had counseling in the past but none since age 18. She denies any history of depression.Pt states she quit smoking 1 week ago. States that she occ asionally vapes nicotine. Discussed risks of continued use in and advised patient to quit. Information for [place] tobacco quit line given to patient. Patient [...] Luis Manuel Macias RN documented in this encounterFirelands Regional Medical Center10-09-2023 NoteHNO ID: [id number] Author: Luis Manuel Macias RN Service: ? [...] No Multivitamin with Folic acid: Not taking Hindu or heritage: No Would refuse blood transfusion if medically necessary: No Are you currently employed? Yes, Occupation: [employer] worker Do you have any history of [...] REMOVE TONSILS/ADENOIDS,12+ Y/O 2017 (more content not included)...[facility]10-09-2023 History of Past illness Narrative* Problem Noted Date Diagnosed Date Resolved Date Nausea and vomiting in 11/15/2022 12/23/2022 Overview: 11/15/2022atient is complaining of nausea and occasional vomiting in . Dietary considerations discussed . Advised patient to call/come in if she is unable to keep any food or fluids down in a 24-hour period. tkrn documented as of this encounter (statuses as of 12/24/2022) [facility]10-09-2023 History of Present illness Narrative* Luis Manuel [...] No Multivitamin with Folic acid: Not taking Hindu or heritage: No Would refuse blood transfusion if medically necessary: No Are you currently employed? Yes, Occupation: [employer] worker Do you have any history of [...] have penicillin allergy: No documented in this encounterFirelands Regional Medical Center09-15-2023 NoteHNO ID: [id number] Author: Geeta Santo RN Service: ? Author Type: ? Type: Progress Notes Filed: 10/22/2022 9:57 AM Note Text: Records received from [place] NUTRITIONAL YEAST SUPERVISOR. Epic updated. Sent to medical records to scan into [id number] and copy in PNOB mailbox for 11/15/22 appointment. Geeta Santo RNAcmc [facility]09-15-2023 History of Present illness Narrative* Geeta Santo RN - 10/22/2022 9:00 AM EDT Records received from [place] NUTRITIONAL YEAST SUPERVISOR. Epic updated. Sent to medical records to scan into [id number] and copy in PNOB mailbox for 11/15/22 appointment. Geeta Santo RN documented in this encounterFirelands Regional Medical Center07-15-2023 NoteHNO ID: [id number] Author: Wilfrid Laura APRN.FASHION CONSULTANT Service: ? Author Type: Nurse Practitioner Type: [...] of care. This note was generated using Night Node Software software. It may contain errors in wording, punctuation, or spelling. Wilfrid Laura APR (more content not included)...[facility] 08-21-2022 Instructions* Patient Instructions* Wilfrid Laura APRN.[facility] - 08/21/2022 11:00 AM EDT How [...] or concerning to you. documented in this encounterFirelands Regional Medical Center07-15-2023 History of Present illness Narrative* Wilfrid Laura APRN.CNP - 08/21/2022 10:38 AM EDT Subjective HPI [...] of care. This note was generated using Night Node Software software. It may contain errors in wording, punctuation, or spelling. Wilfrid Laura APRN.SB documented in this encounterFirelands Regional Medical Center07-13-2023 NoteHNO ID: [id number] Author: Lyric Carney APRN.CNP Service: ? Author [...] weeks , following with Dr. Mike Rodriguez CHEMISTRY QUALITY CONTROL TECHNICIAN. Last appt about 1 month, seeing tomorrow. [...] of these issues and agrees with the plan.[facility]07-13-2023 Instructions* Patient Instructions* Lyric Carney APRN.CNP - 08/19/2022 4:19 PM EDT Recommend ER evaluation due to and current symptoms. Urine will be sent off for culture. Keep appointment tomorrow with CHEMISTRY QUALITY CONTROL TECHNICIAN. documented in this encounterFirelands Regional Medical Center07-13-2023 History of Present illness Narrative* Lyric Carney [...] 16weeks , following with Dr. Mike Rodriguez CHEMISTRY QUALITY CONTROL TECHNICIAN. Last appt about 1 month, seeing tomorrow. [...] agrees with the plan. documented in this encounterFirelands Regional Medical Center04-26-2023 NoteHNO ID: [id number] Author: Wilfrid Laura APRN.SB Service: ? Author Type: Nurse Practitioner Type: [...] agrees with plan of care. Wilfrid Laura APRN.SBAcmc Healthcare [facility]04-26-2023 History of Present illness Narrative* Wilfrid Laura [...] care. Wilfrid Laura APRN.SB documented in this encounterFirelands Regional Medical Center11-18-2022 Hospital Discharge instructions Patient Education 12/25/2021 11:27:58 [...] foods again, start with small amounts of mqwr-ye-ispgkx, low- fat foods. These include apple sauce, [...] increase stomach acid. Don't use aspirin or fkhb-bpi-wrsmjaw pain and fever medicines, if possible. This includes nonsteroidal anti-inflammatory drugs (NSAIDs). Lose excess weight. Finish eating at least 2 hours before you go to bed or lie down. Raise the head of your bed. 5370-5140 [employer]. [address] [place] [address], [place] [address]. All rights reserved. This information is not intended as a substitute for professional medical care. Always follow yourhealthcare professional's instructions. Follow Up Care 12/25/2021 09:25:21 With:Follow up with primary care provider Address:Unknown When:2-4 days [facility] 11-18-2022 Emergency department Discharge summary Discharge Instructions Thank you for allowing [facility] to assist you with your healthcare needs. [...] foods again, start with small amounts of kxas-ih-nskpro, low- fat foods. These include apple sauce, [...] increase stomach acid. Don't use aspirin or rann-cbo-rwwlcug pain and fever medicines, if possible. This includes nonsteroidal anti-inflammatory drugs (NSAIDs). Lose excess weight. Finish eating at least 2 hours before you go to bed or lie down. Raise the head of your bed. 9210-8083 [employer]. [address] [place] [address]. All rights reserved. This information is not intended as a substitute for professional medical care. Always follow yourhealthcare professional's instructions. Additional Information VACCINATE! IT SAVES LIVES! Members of the community who have not yet received the COVID-19 vaccine and would like to receive it can visit one of [facility] vaccine clinics. There are many vaccine clinic locations within the [facility]. For locations and available times, please visit [email or web address]. It is important to note that some COVID mobile vaccine clinics are held outdoors and may be canceled in rainy orstormy conditions. To learn more about pediatric vaccinations (ages 5-11), we invite you to visit the [facility] webpage. [email or web address]/[email or web address]-[email or web address]-Deu stions.htmlTo learn more about the COVID-19 vaccine, we invite you to visit the [employer] website for a list of frequently asked questions. https://[employer]/assets/Vqegcudh-aeb-Idlsfxhh/tnsuq-Xertrqu-Hrwvcfwbvg _Asked-Questions.pdf [facility] Patient Portal Access Instructions: Stay connected with your healthcare team and access your personal medical information anytime with the [employer] Patient Portal. If you would like a full copy of your medical records please contact the [facility] Medical Records Department Tuesday through Tuesday between 8a.m. and 4:30p.m. Please follow the directions below to access the portal: 1.Access the email account you provided upon registration to the hospital.2.Look for an invitation email from [facility].3.Open the email and access the invitation link: Accept Invitation to [email or web address].Fill in the required solis to create your account. Sign into [email or web address] with your username and password that you [...] you will allow to register on the [facility] Patient Portal for access to your information. You can also access the [employer] Patient Portal on the [employer] ronnie. Simply click on Health Records under [place] and then click on the Lizzie logo. HOW TO SAFELY DISPOSE OF PRESCRIPTION [...] Call your local pharmacy or go to [email or web address] to find one close to you.3.Make use of household items: Use cat litter or old coffee grounds to dispose medications if other options arenot available. Mix your drugs with these household products, seal them in an airtight container andthrow it into the garbage. Call [facility]: [phone] to be sure your drugs can be [...] that I should contact my d octor. 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 Signature: Date/Time: Relationship to Patient: Witness Name/Signature: Date/Time: [facility]11-18-2022 Note ORIGINAL EXAMINATION: CT OF THE ABDOMEN AND PELVIS WITHOUT LNYEPWOC62/18/2022 10:28 am TECHNIQUE: CT of the abdomen [...] Date: 12/25/2021 11:18:46 AM Ordering Provider: [facility]22 Note ORIGINAL EXAMINATION: CT OF THE ABDOMEN AND PELVIS WITHOUT VESNAMGZ41/18/2022 10:28 am TECHNIQUE: CT of the abdomen [...] Date: 12/25/2021 11:18:46 AM Ordering Provider[facility] History of Present illness Narrative* Delmer Bradshaw APRN.FASHION CONSULTANT - 12/09/2021 12:30 PM EDT Subjective HPI [...] and atraumatic. Nose: Nose normal. Mouth/Throat: Lips: [place]. Mouth: Mucous membranes are moist. Pharynx: Uvula [...] AEROSOL INHALER Agrees to plan Delmer Bradshaw APRN.FASHION CONSULTANT documented in this encounterFirelands Regional Medical Center10-03-2022 Miscellaneous Notes* Telephone Encounter - Nilay Bernal MD - 11/09/2021 3:59 PM EDT Refill not appropriate through express care. documented in this encounterFirelands Regional Medical Center09-20-2022 Instructions* Patient Instructions* Ansley Chen APRN.SB - 10/27/2021 6:49 PM EDT R.I.C.E. The [...] pillows when lying down. documented in this encounterFirelands Regional Medical Center09-20-2022 History of Present illness Narrative* Ansley Chen APRN.CNP - 10/27/2021 6:16 PM EDT This note was created using SoundBetter. Subjective Chana De La O is a [...] history is provided by the patient. No pediatric speech language pathologist was used. Musculoskeletal Problem This is a [...] OTC analgesics. Follow up with PCP Ansley Chen APRN.CNP documented in this encounterMer[facility]rbana Hospitalaluation + Plan note No data available for this section [facility] Evaluation note* Diagnosis Pain of right hand- Primary Pain in limb documented in this encounter [facility] note* Diagnosis Viral URI with cough Acute upper respiratory infections of unspecified site [facility] Diagnosis Sore throat- Primary Acute pharyngitis History of asthma Personal history of other diseases of respiratory system documented in this encounter [facility] CenterEval[facility]* Diagnosis Procedure not carried out- Primary Procedure not carried out for other reasons documented in this encounter [facility]* Diagnosis Abdominal pain, unspecified abdominal location- Primary 16 weeks gestation of state, incidental Burning with urination Dysuria documented in this encounter [facility] CenterEval[facility]* Diagnosis Sore throat- Primary Acute pharyngitis Viral illness Unspecified viral infection, in conditions classified elsewhere and of unspecified site documented in this encounter [facility]Eval[facility]* Diagnosis with care elsewhere, antepartum- Primary Gastroparesis History of depression Personal history of other mental disorder Engages in nicotine containing substance vaping History of marijuana use Nausea and vomiting in Unspecified vomiting of , unspecified as to episode of care documented in this encounter [facility]* Diagnosis with care elsewhere, antepartum- Primary Gastroparesis History of depression Personal history of other mental disorder History of marijuana use 29 weeks gestation of state, incidental Rh negative state in antepartum period Rhesus isoimmunization affecting management of mother, antepartum condition documented in this encounter [facility] CenterEval[facility]* Diagnosis with care elsewhere, antepartum- Primary 31 weeks gestation of state, incidental documented in this [facility] Diagnosis 33 weeks gestation of - Primary state, incidental care, subsequent in third trimester Leakage of amniotic fluid Premature rupture of membranes in , unspecified as to episode of care [facility] Diagnosis Poor growth affecting management of mother in third trimester, single or unspecified fetus- Primary Vaginal bleeding in , third trimester 34 weeks gestation of state, incidental documented in this encounter [facility] Diagnosis with care elsewhere, antepartum- Primary Poor growth affecting management of mother in third trimester, single or unspecified fetus documented in this [facility] Diagnosis Other obesity due to excess calories affecting in third trimester [O99.213, E66.09]- Primary Poor growth affecting management of mother in third trimester, single or unspecified fetus Supervision of other high risk pregnancies, third trimester Placental abruption in third trimester documented in this encounter [facility] Diagnosis Poor growth affecting management of mother in third trimester, single or unspecified fetus- Primary Supervision of other high risk pregnancies, third trimester 35 weeks gestation of state, incidental documented in this encounter [facility] note* Diagnosis 36 weeks gestation of - Primary state, incidental Poor growth affecting management of mother in third trimester, single or unspecified fetus Supervision of other high risk pregnancies, third trimester Rh negative state in antepartum period Rhesus isoimmunization affecting management of mother, antepartum condition History of marijuana use documented in this encounter [facility] note* Diagnosis Poor growth affecting management of mother in third trimester, single or unspecified fetus- Primary Supervision of other high risk pregnancies, third trimester 36 weeks gestation of state, incidental documented in this encounter [facility] note* Diagnosis Poor growth affecting management of mother in third trimester, single or unspecified fetus- Primary 36 weeks gestation of state, incidental Supervision of other high risk pregnancies, third trimester documented in this encounter [facility] note* Diagnosis 37 weeks gestation of - Primary state, incidental Poor growth affecting management of mother in third trimester, single or unspecified fetus Supervision of other high risk pregnancies, third trimester documented in this encounter [facility] note* Diagnosis 37 weeks gestation of - Primary state, incidental Poor growth affecting management of mother in third trimester, single or unspecified fetus Supervision of other high risk pregnancies, third trimester documented in this encounter [facility] for referral (narrative)* Diagnostic Procedure Only (Urgent) - Closed Specialty Diagnoses / Procedures Referred By Kim hess Referred To Contact XR IMAGING Diagnoses Pain of right hand Procedures XR HAND GENERAL 3V PA/LAT/OBL RIGHT RADEX HAND MINIMUM 3 VIEWS Ansley Chen, JACQUELINE [address] [place] [address] Xr Imaging Referral ID Status Reason Start Date Expiration Date V isits Requested Visits Authorized [id number] Closed Auto-Generate d Referral 10/27/2021 11/26/[address] [facility] for referral (narrative)* Outpatient Procedure (Routine) - Pending Review Specialty Diagnoses / Procedures Referred By Contac t Referred To Contact Diagnoses Poor growth affecting management of mother in third trimester, single or unspecified fetus Procedures NON-STRESS TEST NON-STRESS TEST Rudolph Ralph MD [address] [facility] [address] Referral ID Status Reason Start Date Expiration Date Visits Requested Visits Authorized [id number] Pending Review Auto-Generat ed Referral 3 12/29/2023 4 1 [facility] Summary Purpose Family History No Family History [...] CC Education - COMMON 11/22/2022 [place] - [place] 11/22/2022 Problem Noted Date Diagnosed Date [facility] Education - COMMON 10/22/2022 [facility] Education - COMMON 11/22/2022 [place] - [place] 11/22/2022 Problem Noted Date Diagnosed Date [facility] Education - COMMON 10/22/2022 [facility] Education - COMMON 11/22/2022 Education - [place] 11/22/2022 Problem Noted Date Diagnosed Date [facility] CC Education - COMMON 10/22/2022 [facility] Education - COMMON 11/22/2022 Education - [place] 11/22/2022 Problem Noted Date Diagnosed Date [facility] CC Education - COMMON 10/22/2022 [facility] CC Education - COMMON 11/22/2022 [place] - [place] 11/22/2022 Additional Source Comments INFORMATION SOURCE (unrecogn ized section and content) DATE CREATED AUTHOR AUTHOR'S ORGANIZ ATION 10/10/2020 [facility] DATE CREATED AUTHOR AUTHOR'S ORGANIZ ATION 07/24/2021 [facility] DATE CREATED AUTHOR AUTHOR'S ORGANIZ ATION 02/16/2022 [facility] DATE CREATED AUTHOR AUTHOR'S ORGANIZ ATION 07/19/2022 [facility] DATE CREATED AUTHOR AUTHOR'S ORGANIZ ATION 08/27/2022 [facility] DATE CREATED AUTHOR AUTHOR'S ORGANIZ ATION 01/18/2023 [facility] DATE CREATED AUTHOR AUTHOR'S ORGANIZ ATION 03/29/2023 [facility] Source Comments (unrecognize d section and content) In the event this informatio n is protected by the Federal Confidentiality of Alcohol and Drug Abuse Patient Records regulations: The Federal rules restrict any use of the information to criminally investigate or prosecute any alcohol or drug abuse patient.[facility] the event this information is protected by the Federal Confidentiality of Alcohol and Drug Abuse Patient Records regulations: The Federal rules restrict any use of the information to criminally investigate or prosecute any alcohol or drug abuse patient.[facility] the event this information is protected by the Federal Confidentiality of Alcohol and Drug Abuse Patient Records regulations: The Federal rules restrict any use of the information to criminally investigate or prosecute any alcohol or drug abuse patient.[facility] the event this information is protected by the Federal Confidentiality of Alcohol and Drug Abuse Patient Records regulations: The Federal rules restrict any use of the information to criminally investigate or prosecute any alcohol or drug abuse patient.[facility] the event this information is protected by the Federal Confidentiality of Alcohol and Drug Abuse Patient Records regulations: The Federal rules restrict any use of the information to criminally investigate or prosecute any alcohol or drug abuse patient.[facility] the event this information is protected by the Federal Confidentiality of Alcohol and Drug Abuse Patient Records regulations: The Federal rules restrict any use of the information to criminally investigate or prosecute any alcohol or drug abuse patient.[facility] the event this information is protected by the Federal Confidentiality of Alcohol and Drug Abuse Patient Records regulations: The Federal rules restrict any use of the information to criminally investigate or prosecute any alcohol or drug abuse patient.[facility] Center[facility] the event this information is protected by the Federal Confidentiality of Alcohol and Drug Abuse Patient Records regulations: The Federal rules restrict any use of the information to criminally investigate or prosecute any alcohol or drug abuse patient.[facility] Center[facility] the event this information is protected by the Federal Confidentiality of Alcohol and Drug Abuse Patient Records regulations: The Federal rules restrict any use of the information to criminally investigate or prosecute any alcohol or drug abuse patient.[facility] the event this information is protected by the Federal Confidentiality of Alcohol and Drug Abuse Patient Records regulations: The Federal rules restrict any use of the information to criminally investigate or prosecute any alcohol or drug abuse patient.[facility] the event this information is protected by the Federal Confidentiality of Alcohol and Drug Abuse Patient Records regulations: The Federal rules restrict any use of the information to criminally investigate or prosecute any alcohol or drug abuse patient.[facility] the event this information is protected by the Federal Confidentiality of Alcohol and Drug Abuse Patient Records regulations: The Federal rules restrict any use of the information to criminally investigate or prosecute any alcohol or drug abuse patient.[facility] Center[facility] the event this information is protected by the Federal Confidentiality of Alcohol and Drug Abuse Patient Records regulations: The Federal rules restrict any use of the information to criminally investigate or prosecute any alcohol or drug abuse patient.[facility] Center[facility] the event this information is protected by the Federal Confidentiality of Alcohol and Drug Abuse Patient Records regulations: The Federal rules restrict any use of the information to criminally investigate or prosecute any alcohol or drug abuse patient.[facility] the event this information is protected by the Federal Confidentiality of Alcohol and Drug Abuse Patient Records regulations: The Federal rules restrict any use of the information to criminally investigate or prosecute any alcohol or drug abuse patient.[facility] the event this information is protected by the Federal Confidentiality of Alcohol and Drug Abuse Patient Records regulations: The Federal rules restrict any use of the information to criminally investigate or prosecute any alcohol or drug abuse patient.[facility] Center[facility] the event this information is protected by the Federal Confidentiality of Alcohol and Drug Abuse Patient Records regulations: The Federal rules restrict any use of the information to criminally investigate or prosecute any alcohol or drug abuse patient.[facility] Center[facility] the event this information is protected by the Federal Confidentiality of Alcohol and Drug Abuse Patient Records regulations: The Federal rules restrict any use of the information to criminally investigate or prosecute any alcohol or drug abuse patient.[facility] Center[facility] the event this information is protected by the Federal Confidentiality of Alcohol and Drug Abuse Patient Records regulations: The Federal rules restrict any use of the information to criminally investigate or prosecute any alcohol or drug abuse patient.[facility] CenterIn the event this information is protected by the Federal Confidentiality of Alcohol and Drug Abuse Patient Records regulations: The Federal rules restrict any use of the information to criminally investigate or prosecute any alcohol or drug abuse patient.[facility] CenterIn the event this information is protected by the Federal Confidentiality of Alcohol and Drug Abuse Patient Records regulations: The Federal rules restrict any use of the information to criminally investigate or prosecute any alcohol or drug abuse patient.[facility] Center[facility] the event this information is protected by the Federal Confidentiality of Alcohol and Drug Abuse Patient Records regulations: The Federal rules restrict any use of the information to criminally investigate or prosecute any alcohol or drug abuse patient.[facility] CenterIn the event this information is protected by the Federal Confidentiality of Alcohol and Drug Abuse Patient Records regulations: The Federal rules restrict any use of the information to criminally investigate or prosecute any alcohol or drug abuse patient.[facility] CenterIn the event this information is protected by the Federal Confidentiality of Alcohol and Drug Abuse Patient Records regulations: The Federal rules restrict any use of the information to criminally investigate or prosecute any alcohol or drug abuse patient.[facility] CenterIn the event this information is protected by the Federal Confidentiality of Alcohol and Drug Abuse Patient Records regulations: The Federal rules restrict any use of the information to criminally investigate or prosecute any alcohol or drug abuse patient.[facility] CenterIn the event this information is protected by the Federal Confidentiality of Alcohol and Drug Abuse Patient Records regulations: The Federal rules restrict any use of the information to criminally investigate or prosecute any alcohol or drug abuse patient.[facility] Reason for Visit (unrecogniz ed section and content) Specialty Diagnoses / Procedures Referred By Kim hess Referred To Contact [facility] Diagnoses Poor growth affecting management of mother in third trimester, single or unspecified fetus Supervision of other high risk pregnancies, third trimester Procedures BIOPHYSICAL PROFILE [facility] BIOPHYSICAL PROFILE NON-STRESS TESTING Mayito Granados MD [address] [place] [address] [facility] [address] [place] [address] Referral ID Status Reason Start Date Expiration Date V isits Requested Visits Authorized [id number] Closed Auto-Generate d Referral 2022 2023 6 [...] Reason Comments Initial OB Visit [place] Reason Onset Date Comments Care 12/06/2022 Reason Comments Patient Question Reason Onset Date Comments Care Care 12/20/2022 Reason Comments OB Bleeding Specialty Diagnoses / Procedures Referred By Kim hess Referred To Contact Diagnoses Vaginal bleeding Procedures NA [place] [address] [place] [address] Referral ID Status Reason Start Date Expiration Date Visits Re quested Visits Authorized [id number] 1 1 Reason Comments Consult Specialty Diagnoses / Procedures Referred By Kim hess Referred To Contact [facility] Diagnoses Poor growth affecting management of mother in third trimester, single or unspecified fetus Supervision of other high risk pregnancies, third trimester Procedures BIOPHYSICAL PROFILE [facility] BIOPHYSICAL PROFILE NON-STRESS TESTING Mayito Granados MD [address] [place] [address] [facility] [address] [place] [address] Reason Onset Date Comments Care 12/31/2022 Reason Onset Date Comments Care 01/05/2023 Reason Comments Results Reason Onset Date Comments Care 01/13/2023 Reason Onset Date Comments Care 01/17/2023 Reason Comments Ob Delivery Note Reason Comments Schedule Surgery Care Team (unrecognized sect ion and content) Care Team Personnel Name: PHYSICIAN, NONE Position: Physician Member Role: Primary Care Physician Name: MARICRUZ ZAMUDIO MD Position: ED Physician Member Role: Attending Physician Address: Address: [facility] [address] [place] [address] Name: Moni Sanchez RN Position: ED RN [...] BE BASED ON THE PRIMARY CLINICAL RECORDS. [facility] [employer] provides no warranty or guarantee of the accuracy or completeness of information in this document.
[2023-04-10] MEDS: Ondansetron ODT 4 MG Tablet PO (20:29)
[2023-04-10 20:43] VITALS: BP 125/75; PULSE 98; RESP 18; TEMP 36.6; O2SAT 98
== END 2023-04-10 20:50 | disposition home or self-care (01) ==
PROVIDERS: Emergency Provider Emergency Medicine; Visit Provider Emergency Medicine
DX: R11.15 Cyclical vomiting syndrome unrelated to migraine (principal); F12.90 Cannabis use, unspecified, uncomplicated
CPT/HCPCS: 99282

== ENCOUNTER 2023-05-01 22:52 | Emergency (ER) | payer OTHER, MEDICAID, SELFPAY ==
[2023-05-01 22:53] VITALS: BP 125/71; PULSE 93; RESP 24; TEMP 36.6; O2SAT 98; BMI 36.1
--- NOTE | 2023-05-01 23:08 | ED.VIS.DYS ---
HPI History of Present Illness Chief Complaint: Asthma Informant: patient Onset/Context/Timing Onset: Today Context: sudden Timing: Continuous Quality: Positive for Wheezing Worsened by: Nothing Relieved by: Nothing Associated Symptoms cough; Negative for rhinorrhea, post nasal drip, ear pain, fever, sore throat, chills, sweats, clear sputum, white sputum, yellow sputum or green sputum Chest Pain: Positive for - (Heaviness) Narrative Narrative: Patient presents with shortness of breath that began approximately 40 minutes prior to arrival. Patient states it began rather suddenly. Patient states it feels like she is wheezing. Patient states nothing makes it better nothing makes it worse. Patient states he does not have an inhaler at home. Patient states he has a history of asthma. Patient denies any fevers or chills. Patient admits to a cough but denies any sputum production. Patient also admits to some heaviness in her chest. Patient states that that feels similar to prior asthma attacks. PE Risk Factors: Negative for Cancer, OCP + Smoking + > 35, Prior DVT or PE, Recent surgery or Recent travel PFSH PFS Medical History ADHD Anemia Anxiety Asthma Depression Depression affecting Encounter for induction of labor Gastroparesis History of IBS IBS (irritable bowel syndrome) IUGR (intrauterine growth restriction) Low iron Marijuana use Nausea & vomiting Rh negative state in antepartum period Syncope Upper abdominal pain Vaginal delivery Vapes nicotine containing substance Home Medications albuterol sulfate 90 mcg/actuation aerosol inhaler 1 inh inhalation PRN asthma #8.5 grams 05/01/23 [Rx Last Taken Unknown] Allergy/AdvReac Type Severity Reaction Status Date / Time No Known Allergies Allergy Verified 05/01/23 22:53 Family History Father Diabetes Mother Depression Grandmother Breast cancer Surgical History H/O dilation and curettage History of adenoidectomy History of cholecystectomy (~09/2021) History of esophagogastroduodenoscopy (EGD) Hx of tonsillectomy Social History household members: significant other Smoking Status: Current every day smoker tobacco type: e-cigarettes alcohol intake: never substance use type: marijuana ROS ROS ED Constitutional Constitutional ED: Denies chills or fever(s) Eyes Eyes: Denies blurry vision or change in vision ENT ENT ED: Denies rhinorrhea or sore throat Cardiovascular Cardiovascular: Reports chest pain; Denies palpitations Respiratory/Chest Respiratory/Chest: Reports cough and dyspnea Gastrointestinal Gastrointestinal: Denies nausea or vomiting Genitourinary Genitourinary ED: Denies dysuria or hematuria Musculoskeletal Musculoskeletal: Denies back pain or neck pain Integumentary Denies abscess or rash Neurologic Neurologic: Denies headache(s) or weakness Allergic/Immunologic Allergic/Immunologic ED: Denies mouth swelling or urticaria EXAM Physical Exam Const Vital Signs: 05/01/23 22:53 Temperature 97.8 F Temperature Source Temporal Pulse Rate 93 Respiratory Rate 24 H Blood Pressure 125/71 H Blood Pressure Mean 89 Pulse Ox 98 Positive well nourished, well developed and obese General Appearance ED: well developed and NAD Nutritional Appearance: obese HEENT Reports moist mucous membranes Neck supple, no meningeal signs and no JVD Resp normal respiratory effort Auscultation: wheezes expiratory wheezes and throughout Cardio regular rate and regular rhythm GI non-tender and non-distended Palpation: soft Neuro oriented x3, CN's II-XII intact bilaterally and no sensory deficits noted [place] Coma Scale: document GCS findings Spontaneous Obeys Commands Oriented 15 Sensorium / Orientation: alert Motor Exam: strength 5/5 throughout Psych mental status grossly normal MDM MDM MDM Narrative Medical decision making narrative: Nicotine cessation was discussed. Patient was given a DuoNeb aerosol here. Patient was given a prescription for an albuterol inhaler. Patient was instructed to follow-up with her primary care physician in 5 to 7 days. Patient understood and was agreeable with the plan. All questions were answered. Discharge Plan Triage Chief Complaint: Asthma ED Provider: Pieter Smith Dx/Rx/DC Orders Clinical Impression: Asthma exacerbation, Nicotine dependence Instructions: ED Asthma, Acute (Adult) Prescriptions: Continued albuterol sulfate 90 mcg/actuation HFA aerosol inhaler 1 inh INHALATION PRN Qty: 8.5 0RF Stand Alone Forms: ED Work / School Excuse Primary Care Provider: Care Physician,No Primary Referrals: Care Physician,No Primary [Primary Care Provider] - Disposition Disposition: Home, Self Care
[2023-05-01 23:14] VITALS: O2SAT 96
[2023-05-01 23:16] VITALS: BP 145/77; PULSE 79; RESP 20; O2SAT 100
[2023-05-01 23:34] VITALS: PULSE 65; RESP 16
[2023-05-01] MEDS: Ipratropium/Albuterol Sulfate 3 ML AMPUL.NEB INHALATION (23:34)
[2023-05-02 00:12] VITALS: BP 107/67; PULSE 100; RESP 19; TEMP 36.2; O2SAT 96
== END 2023-05-02 00:12 | disposition home or self-care (01) ==
LOC: ED 23:35
PROVIDERS: Emergency Provider Emergency Medicine; Visit Provider Emergency Medicine
DX: J45.901 Unspecified asthma with (acute) exacerbation (principal); F17.290 Nicotine dependence, other tobacco product, uncomplicated
CPT/HCPCS: 94640; 99282

== ENCOUNTER 2023-05-15 05:36 | Emergency (ER) | payer OTHER, MEDICAID, SELFPAY ==
[2023-05-15 05:37] VITALS: BP 126/80; PULSE 80; RESP 18; TEMP 36.3; O2SAT 97; BMI 36.6
--- NOTE | 2023-05-15 05:45 | ED.VIS.DYS ---
HPI History of Present Illness Chief Complaint: Asthma Informant: patient Onset/Context/Timing Onset: Today (Around 3 or so hours ago) Context: gradual and onset Timing: Continuous Quality: Positive for Wheezing Current Severity: Mild Maximum Severity: Mild Worsened by: Exertion Relieved by: Rest Associated Symptoms cough; Negative for fever Chest Pain: Positive for None Narrative Narrative: 22-year-old female states she was working at 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 She pulled out her albuterol MDI, she took 1 puff and that was all that was left and she is still wheezing. She states as a result of the wheezing she started having some minor coughing but she did not have the cough before all of this started. She states this has happened at work before with regards to her asthma. PFSH PFSH Medical History ADHD Anemia Anxiety Asthma Depression Depression affecting Encounter for induction of labor Gastroparesis History of IBS IBS (irritable bowel syndrome) IUGR (intrauterine growth restriction) Low iron Marijuana use Nausea & vomiting Rh negative state in antepartum period Syncope Upper abdominal pain Vaginal delivery Vapes nicotine containing substance Home Medications albuterol sulfate 90 mcg/actuation aerosol inhaler 2 inh inhalation PRN asthma #8.5 grams 05/15/23 [Rx Last Taken Unknown] Allergy/AdvReac Type Severity Reaction Status Date / Time No Known Allergies Allergy Verified 05/15/23 05:40 Family History Father Diabetes Mother Depression Grandmother Breast cancer Surgical History H/O dilation and curettage History of adenoidectomy History of cholecystectomy (~09/2021) History of esophagogastroduodenoscopy (EGD) Hx of tonsillectomy Social History household members: significant other Smoking Status: Current every day smoker tobacco type: cigarettes alcohol intake: never substance use type: marijuana ROS ROS ED Constitutional Constitutional ED: Denies chills or fever(s) Eyes Eyes: Denies change in vision or diplopia ENT ENT ED: Denies rhinorrhea or sore throat Cardiovascular Cardiovascular: Denies chest pain or palpitations Respiratory/Chest Respiratory/Chest: Reports cough and dyspnea Gastrointestinal Gastrointestinal: Denies abdominal pain, diarrhea, nausea or vomiting Genitourinary Genitourinary ED: Denies dysuria or hematuria Musculoskeletal Musculoskeletal: Denies back pain or neck pain Integumentary Denies abscess or rash Neurologic Neurologic: Denies headache(s), paresthesias or weakness Psychiatric Psychiatric: Denies anxiety or suicidal thoughts EXAM Physical Exam Const Vital Signs: 05/15/23 05:37 05/15/23 05:53 Temperature 97.4 F L Temperature Source Temporal Pulse Rate 80 86 Respiratory Rate 18 16 Respiratory Pattern Normal Blood Pressure 126/80 H Blood Pressure Mean 95 Pulse Ox 97 Oxygen Delivery Method Room Air Positive well nourished and well developed General Appearance ED: well developed and NAD HEENT Reports moist mucous membranes normocephalic and atraumatic Eyes PERRL and EOMs intact bilaterally Neck full ROM, no lymphadenopathy and supple Resp normal respiratory effort Resp Narrative: End expiratory wheezes bilaterally, slight, symmetric, without any other adventitious breath sounds or respiratory distress Effort and Inspection: able to speak in complete sentences Cardio regular rate, regular rhythm and no murmurs GI non-tender and non-distended Auscultation: normoactive bowel sounds Palpation: soft Back/Spine no CVA tenderness General Back: other FROM Extremity normal to inspection General Extremety ED: Negative for edema, pulses abnormal or tenderness General Extremity: Negative for edema or pulses abnormal Neuro oriented x3, CN's II-XII intact bilaterally and no sensory deficits noted Sensorium / Orientation: awake and alert Motor Exam: strength 5/5 throughout Skin no rashes or lesions noted and no wounds MDM MDM MDM Narrative Medical decision making narrative: Given an albuterol aerosol which made her feel better. Prescribed a new MDI and given instructions for use. I do not think she needs steroids for this mild episode. Discharge Plan Triage Chief Complaint: Asthma ED Provider: Davis Dorman Dx/Rx/DC Orders Clinical Impression: Acute asthma exacerbation Instructions: Asthma Prescriptions: Changed albuterol sulfate 90 mcg/actuation HFA aerosol inhaler 2 inh INHALATION PRN Qty: 8.5 0RF Primary Care Provider: Gladis Mueller,Out of Referrals: [facility] Doctor,Out of [Primary Care Provider] - As Needed Disposition Disposition: Home, Self Care
[2023-05-15] MEDS: Albuterol 2.5 MG/3 ML VIAL.NEB. INHALATION (05:51)
[2023-05-15 05:53] VITALS: PULSE 86; RESP 16
[2023-05-15 06:05] VITALS: BP 112/72; PULSE 87; RESP 18; TEMP 36.7; O2SAT 96
== END 2023-05-15 06:05 | disposition home or self-care (01) ==
PROVIDERS: Emergency Provider Emergency Medicine; Visit Provider Emergency Medicine
DX: J45.901 Unspecified asthma with (acute) exacerbation (principal); F17.210 Nicotine dependence, cigarettes, uncomplicated
CPT/HCPCS: 94640; 99282

== ENCOUNTER → 2023-05-26 | Outpatient (CLI) | payer OTHER, MEDICAID, SELFPAY ==
--- NOTE | 2023-05-26 10:46 | NM_ITS ---
CLINICAL: 22-year-old female with history of abdominal pain. SEMI-SOLID PHASE 99m Tc SULFUR COLLOID GASTRIC EMPTYING STUDY COMPARISON: None available FINDINGS: The patient was administered 1.2 mCi of 99m Tc sulfur colloid mixed with oatmeal and consumed per os. Image acquisitions in the anterior-posterior projections were obtained for 60 minutes. There is prompt visualization of the stomach. There is no gastroesophageal reflux identified. The T ? raw data emptying was calculated to be 23.95 minutes, (Normal: 12-56 minutes). NM/Gastric Emptying Study IMPRESSION: 1. NORMAL 99m Tc sulfur colloid semi-solid phase (oatmeal) gastric emptying imaging examination. A. There is normal and preserved semi-solid phase gastric emptying compared to normal controls. (Jeffry et al, J Nucl Med Tech 38: 186, 2010). Electronically Signed: Pascual Owens DO at 11:08 EDT ,
== END | disposition home or self-care (01) ==
LOC: NM 10:46
PROVIDERS: Referring Provider Internal Medicine Gastroenterology; Visit Provider Internal Medicine Gastroenterology
DX: R10.10 Upper abdominal pain, unspecified (principal); K59.09 Other constipation
CPT/HCPCS: 78264; A9541

== ENCOUNTER 2023-06-13 05:23 | Emergency (ER) | payer OTHER, MEDICAID, SELFPAY ==
[2023-06-13 05:24] VITALS: BP 158/70; PULSE 102; RESP 18; TEMP 36.5; O2SAT 96; BMI 35.4
--- NOTE | 2023-06-13 05:43 | CT_ITS ---
STUDY: CT ABDOMEN AND PELVIS WITH CONTRAST REASON FOR EXAM: Female, 22 years old. Nausea and vomiting. Abdominal pain. RADIATION DOSAGE (If Supplied By Facility): CTDIvol = ( 15.11 ) mGy, DLP = ( 1057.25 ) mGycm TECHNIQUE: Transaxial images were obtained from the dome of the diaphragm to the symphysis pubis without oral contrast. IV 100mL Isovue-370 was administered. Sagittal and coronal images were reconstructed. Individualized dose optimization techniques were used for this CT. COMPARISON: Comparison is made with prior study dated February 13, 2022 and August 23, 2021. FINDINGS: The visualized lung bases are unremarkable. The visualized portions of the heart are within normal limits. Normal liver. There are surgical clips in the gallbladder fossa consistent with a prior cholecystectomy. Normal spleen. Normal pancreas. Normal bilateral adrenal glands. Normal right kidney. Normal left kidney. Normal visualized stomach. Normal small intestine. Normal colon. The appendix is visualized and appears normal. Normal abdominal aorta. Normal inferior vena cava. Normal retroperitoneum. Normal urinary bladder. There is a 4.9 cm 4.9 cm cyst in the left ovary. There is evidence of a 3.5 cm x 2.2 cm dermoid cyst in the right ovary. Small amount of free fluid is seen in the pelvis. Normal abdominal wall. Normal osseous structures. CT/Abdomen/Pelvis W IV Cont ONLY IMPRESSION: Status post cholecystectomy. 4.9 cm x 4.9 cm cyst in the left ovary. 3.5 cm x 2.2 cm dermoid cyst in the right ovary. Small amount of free fluid is seen in the cul-de-sac. Electronically Signed: Anil Hassan MD at 8:50 EDT ,
--- NOTE | 2023-06-13 05:44 | ED.VIS.GI ---
HPI HPI - GI History of Present Illness Chief Complaint: Abd Pain Narrative Narrative: 22-year-old female past medical history of irritable bowel syndrome, states that she has been dealing with what they think is gastroparesis for the last 2 years. She is being seen by Dr. Kowalski and is supposed to have upper and lower endoscopy to help determine what is going on with her gastroparesis. She states that she does not take anything for IBS because they are still doing testing. She started feeling badly yesterday afternoon at 4 PM, approximately 13-1/2 hours ago. She states her child woke up in the middle the night and since around 2 AM, 3 or 4 hours ago, she has had nausea and vomiting. She is still flatulent. She not having any problems with bowel movements such as diarrhea. She complains of diffuse abdominal pain, nausea, and vomiting. Past surgical history includes cholecystectomy and bilateral tubal ligation. Last menstrual period was last month. No exacerbating or alleviating factors. PFSH PFSH Medical History ADHD Anemia Anxiety Asthma Depression Depression affecting Encounter for induction of labor Gastroparesis History of IBS IBS (irritable bowel syndrome) IUGR (intrauterine growth restriction) Low iron Marijuana use Nausea & vomiting Rh negative state in antepartum period Syncope Upper abdominal pain Vaginal delivery Vapes nicotine containing substance Home Medications albuterol sulfate 90 mcg/actuation aerosol inhaler 2 inh inhalation PRN asthma #8.5 grams 05/15/23 [Rx Last Taken Unknown] Allergy/AdvReac Type Severity Reaction Status Date / Time No Known Allergies Allergy Verified 05/15/23 05:40 Family History Father Diabetes Mother Depression Grandmother Breast cancer Surgical History H/O dilation and curettage History of adenoidectomy History of cholecystectomy (~09/2021) History of esophagogastroduodenoscopy (EGD) Hx of tonsillectomy Tubal ligation status Social History household members: significant other Smoking Status: Current every day smoker tobacco type: cigarettes and e-cigarettes alcohol intake: never substance use type: marijuana ROS ROS ED ROS Narrative Constitutional: No fever, no chills. HEENT: No sore throat. No neck pain. No loss of vision. No rhinorrhea. Cardiovascular: No chest pain. No palpitations. No pedal edema. Respiratory: No cough, no shortness of breath. Abdominal: Positive abdominal pain. Nonstop nausea and vomiting. No problems with bowel movements. Genitourinary: No dysuria. No hematuria. Musculoskeletal: No myalgias. No arthralgias. Neurologic: No headaches. No dizziness. No lightheadedness. Skin: No rash. No change in color. Psychiatric: No depression. No anxiety. EXAM Physical Exam Narrative Exam Narrative: Afebrile. Vital signs noted. HEENT: Normocephalic. Atraumatic. PERRL, EOMI. Neck soft and supple. No point tenderness or step off. Cardiovascular: Mild tachycardia at 102 bpm. No murmurs, rubs, or gallops appreciated. Respiratory: No tachypnea. Lungs clear to auscultation bilaterally. Gastrointestinal: Abdomen soft, minimal diffuse tenderness to palpation with decreased bowel sounds. No rebound or guarding. Neurological: Awake. Alert. Nonfocal, nonlateralizing. Skin: No rash. Normal color. No pallor. Musculoskeletal: No pedal edema. Full range of motion extremities. Psychiatric: Tearful on examination. Const Vital Signs: 06/13/23 05:24 06/13/23 07:23 Temperature 97.7 F L 98.2 F Temperature Source Oral Temporal Pulse Rate 102 H 82 Respiratory Rate 18 16 Blood Pressure 158/70 H 130/69 H Blood Pressure Mean 99 89 Pulse Ox 96 97 Oxygen Delivery Method Room Air Room Air MDM MDM MDM Narrative Medical decision making narrative: I reviewed the patient's prior records. She has had problems with gastroparesis in the past specially when she was as she states. According to prior ED visits, Zofran had worked better than Reglan. However after ordering this, RN states that she took Zofran at home. Comprehensive workup was pursued. I will check lab see if she is dehydrated, and obtain a lipase to help rule out pancreatitis which is in the differential. Also the differential diagnosis would be bowel obstruction given her profuse nausea and vomiting. I do feel CT imaging is indicated. She will be bolused normal saline 1 L intravenously. I reviewed the patient's laboratory work and she has slightly elevated white count of 12.5, hemoglobin 13.7, hematocrit 41.3, platelet count normal at 343. Sodium is normal at 139, potassium 3.5, chloride normal at 107. BUN normal at 10 and creatinine 0.88. Glucose is appropriately elevated at 98. Serum is negative. Urine is negative for infection upon review. I do not feel antibiotics are indicated. Initially, as she had taken Zofran she states that the Reglan did not help her. She was administered Toradol for analgesia. She states this did not help her either. In review of her chart, she has been seen for cyclic vomiting. She was administered Ativan and Pepcid which seemed to relieve her symptoms. I have discussed patient with Dr. Kowalski, who recommended either Compazine or Haldol if the Ativan and Pepcid was ineffective. It was not felt that narcotic pain medication should treat her cyclic vomiting/gastroparesis type symptoms. At this point in time, patient signed out to Dr. Guerrero to check the CT scan. Now that she is improved and as well as her CT scan does not show evidence of obstruction or any acute pathology, I feel she can be discharged to follow-up with gastroenterology. She is in stable condition. History & Record Review Discussion w/independent historian: Patient Lab Data Attestation: I reviewed the patient's lab results. Labs: Laboratory Results - last 24 hr 06/13/23 06/13/23 05:30 06:05 WBC 12.5 H RBC 5.08 Hgb 13.7 Hct 41.3 MCV 81.3 MCH 27.0 MCHC 33.2 RDW Std Deviation 41.1 RDW Coeff of Connor 14.2 Plt Count 343 MPV 11.0 Immature Gran % (Auto) 0.300 Neut % (Auto) 75.9 H Lymph % (Auto) 17.2 L Alfalfa % (Auto) 4.4 Eos % (Auto) 1.7 Baso % (Auto) 0.5 Absolute Neuts (auto) 9.5 H Absolute Lymphs (auto) 2.14 Nucleated RBC % 0 Sodium 139 Potassium 3.5 Chloride 107 Carbon Dioxide 25.0 Anion Gap 7 BUN 10 Creatinine 0.88 Estim Creat Clear Calc 115.31 Est GFR (MDRD) Af Amer 103 Est GFR (MDRD) Non-Af 85 BUN/Creatinine Ratio 11.3 Glucose 98 Calcium 8.8 Total Bilirubin 0.40 AST 14 L ALT 15 Alkaline Phosphatase 66 Total Protein 7.8 Albumin 3.9 Globulin 3.9 Albumin/Globulin Ratio 1.0 Lipase 22 Serum , Qual NEGATIVE Urine Color Yellow Urine Clarity Clear Urine pH 6.5 Ur Specific [place] 1.020 Urine Protein 30 H Urine Glucose (UA) Normal Urine Ketones 150 A* Urine Occult Blood Negative Urine Nitrite Negative Urine Bilirubin Negative Urine Urobilinogen 1 H Ur Leukocyte Esterase 25 H Urine RBC 0 SEEN Urine WBC 0 SEEN Ur Squamous Epith Cells 0-5 SEEN Urine Bacteria 0 SEEN Urine Mucus 0 SEEN Management Discussion w/another healthcare provider: Senior Principal Architect (Dr. Kowalski, gastroenterology) Discharge Plan Triage Chief Complaint: Abd Pain ED Provider: Doe Dominguez Dx/Rx/DC Orders Prescriptions: No Action albuterol sulfate 90 mcg/actuation HFA aerosol inhaler 2 inh INHALATION PRN Qty: 8.5 0RF Primary Care Provider: Care Physician,No Primary Referrals: Care Physician,No Primary [Primary Care Provider] -
[2023-06-13] MEDS: Metoclopramide 10 MG/2 ML Vial 5 MG IV (05:53)
[2023-06-13] MEDS: 0.9% Normal Saline (1000mL) 1,000 ML 1000 ML IV (05:53)
[2023-06-13 06:05] LABS: Absolute Lymphocyte Count 2.14 X10^3/uL (0.83-4.51); Absolute Neutrophil Count 9.5 X10^3/uL (2.0-7.7); Basophil# 0.06 X10^3/uL; Basophil% 0.5 % (0-1); Eosinophil# 0.21 X10^3/uL; Eosinophils% 1.7 % (0-5); Hematocrit 41.3 % (37-47); Hemoglobin 13.7 g/dL (12.0-15.0); Lymphocyte # 2.14 X10^3/ul (0.83-4.51); Lymphocyte % 17.2 % (19-41); Mean Corp Hgb Conc 33.2 g/dL (32-36); Mean Corpuscular Volume 81.3 fL (81-99); Monocyte# 0.55 X10^3/uL; Monocyte% 4.4 % (0-10); NRBC Flagged by Analyzer 0 % (0-5); Neutrophil # 9.47 X10^3/uL (2.7-7.7); Neutrophil % 75.9 % (47-70); Platelet Count 343 K/mm3 (150-450); RBC Distribution Width CV 14.2 % (11.6-14.6); RBC Distribution Width SD 41.1 fl (35.1-43.9); Red Blood Count 5.08 M/mm3 (4.2-5.4); White Blood Count 12.5 K/mm3 (4.4-11.0)
[2023-06-13 06:14] LABS: Bacteria 0 SEEN /hpf (None Seen); Mucous, Urine 0 SEEN /hpf (<or=2+); Red Blood Cells-Urine 0 SEEN /hpf (0-5); White Blood Cells 0 SEEN /hpf (0-5)
[2023-06-13 06:14] LABS: Internal QC Validated? YES +Cl - CLEAR BKGD; Pregnancy, Serum, hCG Quali. NEGATIVE Negative
[2023-06-13 06:23] LABS: AST(SGOT) 14 U/L (15-37); Alanine Aminotransfer ALT/SGPT 15 U/L (13-56); Albumin, Serum 3.9 g/dL (3.2-5.0); Alkaline Phosphatase 66 U/L (45-117); Anion Gap 7 (5-15); BUN 10 mg/dL (7-18); BUN/Creat Ratio 11.3 RATIO (10-20); Calcium,Total 8.8 mg/dL (8.5-10.1); Chloride 107 mmol/L (98-107); Creatinine, Serum 0.88 mg/dL (0.55-1.02); EST Glomerular Filtration Rate 85 mL/min (>60); Est Glom Filt Rate - Afr Amer 103 mL/min (>60); Estimated Creatinine Clearance 115.31 ml/min; Globulin 3.9 g/dL (2.2-4.2); Glucose 98 mg/dL (74-106); Lipase 22 U/L (13-75); Potassium 3.5 mmol/L (3.5-5.1); Protein, Total 7.8 g/dL (6.4-8.2); Sodium Level 139 mmol/L (136-145)
[2023-06-13] MEDS: Ketorolac 15 MG/ML Vial IV (06:35)
[2023-06-13] MEDS: Albuterol 2.5 MG/3 ML VIAL.NEB. INHALATION (06:49)
[2023-06-13 06:55] LABS: Color, Urine Yellow (Yellow); Glucose, Dipstick Normal (Normal); Leukocyte Esterase-Dipstick 25 /ul (Negative); Nitrite-Dipstick Negative (Negative); Occult Blood-Urine Negative /ul (Negative); Protein-Dipstick 30 mg/dl (Negative); Urine Bilirubin Dipstick Negative (Negative); Urine Clarity Clear (Clear); Urine Urobilinogen 1 mg/dl (Normal); Urine pH 6.5 (5.0 - 8.0)
[2023-06-13 07:05] LABS: Ketone-Dipstick 150 mg/dl (Negative)
[2023-06-13 07:08] LABS: Squamous Epithelial Cells - UA 0-5 SEEN /hpf (5-10)
[2023-06-13] MEDS: LORazepam 2 MG/ML Syringe 1 MG IV (07:12)
[2023-06-13 07:23] VITALS: BP 130/69; PULSE 82; RESP 16; TEMP 36.8; O2SAT 97
[2023-06-13] MEDS: Famotidine 200 MG/20 ML MDV 20 MG in 0.9% Normal Saline (Pres. free 8 ML 300 MG IV (07:34)
[2023-06-13 09:14] VITALS: BP 113/67; PULSE 71; RESP 15; TEMP 36.1; O2SAT 99
== END 2023-06-13 09:15 | disposition home or self-care (01) ==
PROVIDERS: Emergency Provider Emergency Medicine; Visit Provider Emergency Medicine
DX: R10.9 Unspecified abdominal pain (principal); K31.84 Gastroparesis; K58.9 Irritable bowel syndrome, unspecified; F17.210 Nicotine dependence, cigarettes, uncomplicated; F17.290 Nicotine dependence, other tobacco product, uncomplicated; Z90.49 Acquired absence of other specified parts of digestive tract
CPT/HCPCS: 74177; 80053; 81001; 83690; 84703; 85025; 94640; 96361; 96374; 96375; 99282; J7030; Q9967; A4216; J3490

== ENCOUNTER 2023-06-22 05:19 | Day surgery (SDC) | payer OTHER, MEDICAID, SELFPAY ==
--- NOTE | 2023-06-22 | IMM_PTH ---
PATIENT: CHANA DE LA O LOC: [facility] U#:[id number] AGE/SX: 22/F ROOM: RE06/22/[address]: Dr. Rodrick Kowalski DO : 2000 BED: DIS: 06/22/2023 SPEC #: [id number] RECD: 06/23/23 12:26 STATUS: JIMMIE RELuly #: [id number] BEATRIZ: 06/22/23 00:[address]: Rodrick Kowalski DEPT: IMMUNOHISTOCHEMISTRY RECD BY: Davi Mojica ENTERED: 06/23/23 12:27 SP TYPE: IMMUNO OT DR: No Primary Care Phys Tissues: B - Ileum, NOS Procedures: CD20 (add) CD45 (add) CD5 (add) CD79A (add) CD3 (initial) PHYSICIAN & INSTITUTION [place] [id number] SPECIMEN INFORMATION: Tissue Source: B- Terminal ileum Clinical Info: Cannabis hyperemesis syndrome concurrent with and due to cannabis abuse, constipation Specimen Number: [id number] CPT code: 76838,06662m6 METHODOLOGY: Deparaffinized sections of prefer/formalin-fixed tissue or PAP/DQ stained slides are incubated with monoclonal/polyclonal antibodies/oligonucleotide probes. Localization is made via biotin free immunoperoxidase method. Appropriate controls are performed and reacted as expected. Results on target cell population are indicated in the following table: RESULTS: ANTIBODY / CLONE RESULT Block B CD3 (PS1) positive CD5 (SP10) positive CD20 (L26) positive CD45 (RP2/18) positive CD79a (11E3) positive These tests were developed and their performance characteristics determined by [facility]. They may not have been cleared or approved by the U.S. Food and Drug Administration. The FDA has determined that such clearance or approval is not necessary. The above immunohistochemical/dualISH markers are ordered and reviewed by the Pathologist. INTERPRETATION: B. Terminal ileum, biopsy: Polytypic (benign) lymphoid aggregates. AM/mr 06/24/2023
[2023-06-22 05:47] VITALS: BP 112/68; PULSE 84; RESP 16; TEMP 36.6; O2SAT 100; BMI 36.6
[2023-06-22] MEDS: Lactated Ringers 1,000 ML 15 ML IV (05:55)
--- NOTE | 2023-06-22 06:30 | COLBX_PTH ---
PATIENT: CHANA DE LA O LOC: [facility] U#:[id number] AGE/SX: 22/F ROOM: RE06/22/[address]: Dr. Rodrick Kowalski DO : 2000 BED: DIS: 06/22/2023 SPEC #: [id number] RECD: 06/22/23 09:44 STATUS: JIMMIE TESS #: [id number] BEATRIZ: 06/22/23 06:[address]: Rodrick Kowalski DEPT: SURGICAL PATHOLOGY RECD BY: Keiko Hoffmann ENTERED: 06/22/23 12:20 SP TYPE: COLON BX OTHR DR: Wendy Primary Care Phys Tissues: A - Duodenum, NOS B - Ileum, NOS C - COLON BIOPSY Procedures: Surgery Specimen Level IV HEADER OPERATION: Colonoscopy with biopsy, EGD with biopsy PRE-OP DIAGNOSIS: Cannabis hyperemesis syndrome concurrent with and due to cannabis abuse, constipation TISSUE SUBMITTED: A- Duodenum biopsy, B- Terminal ileum biopsy, C- Random colon biopsy MICROSCOPIC DIAGNOSIS A. Duodenum, biopsy: No pathologic change. B. Terminal ileum, biopsy: Benign lymphoid aggregates. See comment. C. Colon, random biopsy: No pathologic change. MITCHEL/ 06/23/23 COMMENT B. Immunohistochemistry ([id number]) supports the above diagnosis. MICROSCOPIC DESCRIPTION Slides are reviewed. GROSS DESCRIPTION A. Received in fixative is one container labeled with the patient's name and designated Duodenum biopsy. The specimen consists of one irregular fragment of light hines soft tissue that measures 0.5 x 0.4 x 0.1 cm. The specimen is totally submitted in one cassette. B. Received in fixative is one container labeled with the patient's name and designated Terminal ileum biopsy. The specimen consists of multiple irregular fragments of light hines soft tissue that in aggregate measure 1.0 x 0.3 x 0.1 cm. The specimen is totally submitted in one cassette. C. Received in fixative is one container labeled with the patient's name and designated random colon biopsy. The specimen consists of multiple irregular fragments of light hines soft tissue that in aggregate measure 1.5 x 0.6 x 0.1 cm. The specimen is totally submitted in one cassette. RON/ 06/22/2023 TC:3 CPT:76050w4
--- NOTE | 2023-06-22 06:44 | HP.PCM_ITS ---
History and Physical Date of Admission: 06/22/23 CHANA DE LA O, is a 22 F who presents to the office today for follow up. PMH anxiety/depression; asthma; substance abuse, marijuana; anemia. PSH vaginal delivery with retained products requiring D&C; cholecystectomy WSA established 09.16.21 following [facility] ED presentation for abdomen pain with N/V. US RUQ hepatic measurement 14.8cm; gallbladder distended with multiple stone and Rivera sign +; CBD borderline dilated. Laparoscopic cholecystectomy 09.16.[address] Thornton gallbladder visually without inflammation but noted to have numerous adhesion to omentum and duodenum; possible early takeoff of the right hepatic duct when visualizing CBD. WSA OV 09.23.21 reporting improved symptoms overall with some symptoms when she eats a lot of food at once. BM without concern. [facility] ED 12.24.21 N/V and abdominal pain. Workup without acute finding and discharged with Zofran ,Carafate and omeprazole ? Biochemical workup CBC (hgb 11.1), CMP, LFT, lipase without pertinent abnormalities. [place] ED 12.25.21 N/V and abdominal pain. Discharged with bentyl. A OV 12.29.21 where it is noted the Zofran, Carafate, omeprazole and bentyl worsen her symptoms. The only relief she is able to find from symptoms is hot showers; history of marijuana use. BM are hard stools. At a next office visit 01.07.22 she admits to constipation with BM relieving the abdominal pain. WSA OV 01.21.22 where she reports being marijuana free for two weeks. EGD 01.28.22 Dr. Thornton with advancement to second portion of duodenum noting diffuse mild gastric inflammation, bile gastritis; bilious fluid of gastric body. Baclofen and carafate WSA OV 1.6.23, 1..23, 2 reporting baclofen ineffective. Reports marijuana use 1.6.23 and avoidance 1.. OV 2 she was found kneeling over an exam table; reports showering frequently and ?popping nausea meds? regularly (reglan), increased NSAID use for her inflamed stomach. [facility] ED 1.7.23 (twice), 3.29.23, 3.30.23, 4..23 (reports , 8weeks), 5.6.23, 5.8.23 with abdominal pain and reported weight loss of 15lbs in 5 months. No acute concern physically; notes pain seems out of proportion to exam. One ED provider felt psychiatric evaluation would be beneficial. She was discharged with bentyl and Zofran. Typically treated with IVF, Zofran and morphine/Toradol/dilaudid. ? Biochemical .08.29 CBC (WBC 11.3, hgb 11.6), CMP, LFT (AST L6), lipase without pertinent abnormality ? Biochemical 1.08.29 CBC (WBC/hgb WNL), CMP, LFT (AST L9), lipase L69. CT abd/pel .08.29 noting right hemipelvis mixed density mass with fat and calcification, new from previous exam, may represent loop of bowel adjacent to a phlebolith and mesenteric fat versus ovarian dermoid, use US for further evaluation. Biochemical 3.. CBC, CMP (K+ 3.3), lipase H561. ? Biochemical 3.30.23 CBC, CMP (K+ 3.2), lipase without pertinent abnormality. ? Pelvic US .. very early versus complex cyst. hCG 5086. Her obgyn specialist felt it was likely early intrauterine gestation. ? Biochemical 5.8.23 CBC, CMP, lipase, LFT without pertinent abnormality. hCG [id number] *BGI established 6.15.23 continues to have upper abdominal pain, N/V with intermittent hematemesis, BM alternate between constipation (no BM up to 10 days) followed by hard round stools 2-3 days, has some relief on these days; attempted MiraLAX daily for one week without effect. Marijuana use one blunt a day. Currently and weening off marijuana use. Hot showers are most effective in symptom relief. Reports marijuana use is for unmanaged depression and anxiety. OV 10. continues to have abdominal pain and emesis which is very bothersome. She is 31 weeks at this time. Reports hot showers are the only thing that make her feels better. Continues with intermittent marijuana use. OV 4.29.24 Pt reports daily N/V in the morning and reports that she has a pain in her abdomen that it feels like its knotting up. Pt reports having alternating constipation and diarrhea and will have a bm every few days, but when she is able to go it's a few small alexander and then bile colored diarrhea. Pt reports daily marijuana use. ROS Const Constitutional: Positive for fatigue and weight change (weight gain); No fever(s) ENT ENT: No difficulty swallowing Gastro GI: Positive for abdominal pain, bloating, change in bowel habits, constipation, diarrhea, heartburn, excessive flatus, nausea/dyspepsia and vomiting; No belching, change in stool character, coffee ground emesis, cramping, difficulty swallowing, feeling full early, incontinent of stools, Vomiting blood/hematemesis, Blood in stool, loose stools, Black,tarry stools, pain with swallowing or other Musc Musculoskeletal: Positive for back pain and stiffness; No joint pain Skin Skin: No yellowing of the eye or itchy eyes Psych Psychiatric: Positive for anxiety and No depression Endo Endocrine: Positive for fatigue and weight change (weight gain) Aller/Imm Allergy/Immunologic: No itchy eyes Adilson/Lymp Hematologic/Lymphatic: Positive for easy bruising; No easy bleeding Exam Const General: cooperative and comfortable Nutritional Appearance: average body habitus and well nourished [facility] Head: normal to inspection Ears: hearing grossly normal bilaterally Nose: external nose normal Face and sinus: normal facial exam Mouth: oral mucosae normal Throat: posterior oropharynx normal Eyes General: appearance normal, both eyes and all related structures Neck Neck: normal visual inspection Chest Chest palpation & inspection: normal inspection of the chest and normal palpation of entire chest wall Resp Effort & Inspection: normal respiratory effort Auscultation: Bilateral: Clear to Auscultation Cardio Palpation: normal PMI Rate: regular rate Rhythm: regular rhythm GI Inspection: normal to inspection Auscultation: normal bowel sounds Percussion: normal to percussion Palpation: no hepatosplenomegaly Skin General: no rashes or lesions noted Neuro General: patient alert Extrem General: normal to inspection Psych Affect: normal affect Assessment and Plan Assessment and Plan (1) Cannabis hyperemesis syndrome concurrent with and due to cannabis abuse: Status: Resolved Plan: Nausea, vomiting and abdominal pain likely secondary to marijuana hyperemesis. She refuses to stop smoking at this time.I I will give her a Compazine and stop reglan. (2) Constipation: Status: Chronic Qualifiers: Constipation type: other constipation type Qualified Code(s): K59.09 - Other constipation Plan: She has chronic constipation. I The differential diagnosis for her constipation does include so transit constipation versus pelvic floor dysfunction. Alternative to diagnosis would be IBS associated with constipation. I think that is more likely. Unfortunately, we could unfortunately, we get any radiologic imaging due to the fact. , she is 31 weeks . Recommending five orrecommending fiber therapy basis. Coding Level of Care Code Off vis,est,level 4 Diagnoses Cannabis hyperemesis syndrome concurrent with and due to cannabis abuse F12.188 Other constipation K59.09 Constipation type: other constipation type I have examined the patient and the H&P has been reviewed. There are no clinical changes since date of exam.
[2023-06-22 07:17] VITALS: BP 112/68; BP 165/149; PULSE 86; RESP 18; TEMP 36.4; O2SAT 99
--- NOTE | 2023-06-22 07:17 | OP.EGD_ITS ---
Patient Name: Lori Merida Procedure Date: 06/22/2023 6:26 AM Date of : 2000 Age: 22 Procedure: Upper GI endoscopy Indications: Epigastric abdominal pain, Functional Dyspepsia Providers: Rodrick Kowalski DO Referring MD: No Primary Care Physician Medicines: Monitored Anesthesia Care Patient Profile: This is a 22 year old female. Refer to note in patient chart for documentation of history and physical. Patient has symptoms of chronic abdominal cramping, chronic right upper quadrant abdominal pain, chronic dyspepsia and chronic nausea. Complications: No immediate complications. Procedure: Pre-Anesthesia Assessment: - Prior to the procedure, a History and Physical was performed, and patient medications and allergies were reviewed. The patient is competent. The risks and benefits of the procedure and the sedation options and risks were discussed with the patient. All questions were answered and informed consent was obtained. Patient identification and proposed procedure were verified by the physician in the pre-procedure area. Mental Status Examination: alert and oriented. Airway Examination: normal oropharyngeal airway and neck mobility. Respiratory Examination: clear to auscultation. CV Examination: normal. Prophylactic Antibiotics: The patient does not require prophylactic antibiotics. Prior Anticoagulants: The patient has taken no anticoagulant or antiplatelet agents. ASA Grade Assessment: II - A patient with mild systemic disease. After reviewing the risks and benefits, the patient was deemed in satisfactory condition to undergo the procedure. The anesthesia plan was to use monitored anesthesia care (MAC). Immediately prior to administration of medications, the patient was re-assessed for adequacy to receive sedatives. The heart rate, respiratory rate, oxygen saturations, blood pressure, adequacy of pulmonary ventilation, and response to care were monitored throughout the procedure. The physical status of the patient was re-assessed after the procedure. After obtaining informed consent, the endoscope was passed under direct vision. Throughout the procedure, the patient's blood pressure, pulse, and oxygen saturations were monitored continuously. The Colonoscope was introduced through the mouth, and advanced to the duodenal bulb. The upper GI endoscopy was accomplished without difficulty. The patient tolerated the procedure well. Scope In: 6:51:40 AM Scope Out: 6:54:43 AM Total Procedure Duration Time 0 hours 3 minutes 3 seconds Findings: The examined esophagus was normal. Patchy mildly erythematous mucosa without bleeding was found in the gastric body. A large amount of food (residue) was found in the gastric body. Suspect gastroparesis due to absence of peristalsis, patient symptoms and retained gastric contents. A benign-appearing, intrinsic mild stenosis was found at the pylorus. This was traversed. A guidewire was placed and the scope was withdrawn. Dilation was performed with a Savary dilator with no resistance at 45 Fr. The dilation site was examined and showed mild mucosal disruption. Estimated blood loss was minimal. No gross lesions were noted in the duodenal bulb. Impression: - Normal esophagus. - Erythematous mucosa in the gastric body. - A large amount of food (residue) in the stomach. - Gastroparesis, secondary to medication. - Gastric stenosis was found at the pylorus. Dilated. - No gross lesions in the duodenal bulb. - No specimens collected. Recommendation: - Discharge patient to home. - Resume previous diet. - Continue present medications. - Await pathology results. Procedure Code(s): --- Professional --- 84906, Esophagogastroduodenoscopy, flexible, transoral; with dilation of gastric/duodenal stricture(s) (eg, balloon, bougie) CPT copyright 2021 [employer] [place] [employer]. All rights reserved. The codes documented in this report are preliminary and upon manager supply chain planning review may be revised to meet current compliance requirements. Rodrick Kowalski DO 06/22/2023 7:16:45 AM This report has been signed electronically. Number of Addenda: 0 Note Initiated On: 06/22/2023 6:26 AM
--- NOTE | 2023-06-22 07:18 | OP.CCLET_ITS ---
06/22/2023 No Primary Care Physician Re : Upper GI endoscopy procedure for Lori Merida Dear Care Physician This procedure was performed on Thursday, June 22, 2023. My impressions and recommendations are as follows: Impressions : - Normal esophagus. - Erythematous mucosa in the gastric body. - A large amount of food (residue) in the stomach. - Gastroparesis, secondary to medication. - Gastric stenosis was found at the pylorus. Dilated. - No gross lesions in the duodenal bulb. - No specimens collected. Recommendations : - Discharge patient to home. - Resume previous diet. - Continue present medications. - Await pathology results. My findings are described in the full procedure note, which is enclosed. If I can be of further assistance, please feel free to contact me at . Sincerely, Rodrick Kowalski, 06/22/2023 7:16:45 AM This report has been signed electronically.
[2023-06-22 07:20] VITALS: BP 112/68; BP 141/118; PULSE 80; RESP 16; O2SAT 100
--- NOTE | 2023-06-22 07:20 | OP.COLON_ITS ---
Patient Name: Lori Merida Procedure Date: 06/22/2023 6:54 AM Date of : 2000 Age: 22 Procedure: Colonoscopy Indications: Generalized abdominal pain, Chronic diarrhea Providers: Rodrick Kowalski DO Referring MD: No Primary Care Physician Medicines: Monitored Anesthesia Care Patient Profile: This is a 22 year old female. Refer to note in patient chart for documentation of history and physical. Patient has symptoms of chronic abdominal cramping, chronic right upper quadrant abdominal pain, chronic dyspepsia and chronic nausea. Last Colonoscopy: none. The patient's first colonoscopy is today. Complications: No immediate complications. Procedure: Pre-Anesthesia Assessment: - Prior to the procedure, a History and Physical was performed, and patient medications and allergies were reviewed. The patient is competent. The risks and benefits of the procedure and the sedation options and risks were discussed with the patient. All questions were answered and informed consent was obtained. Patient identification and proposed procedure were verified by the physician in the pre-procedure area. Mental Status Examination: alert and oriented. Airway Examination: normal oropharyngeal airway and neck mobility. Respiratory Examination: clear to auscultation. CV Examination: normal. Prophylactic Antibiotics: The patient does not require prophylactic antibiotics. Prior Anticoagulants: The patient has taken no anticoagulant or antiplatelet agents. ASA Grade Assessment: II - A patient with mild systemic disease. After reviewing the risks and benefits, the patient was deemed in satisfactory condition to undergo the procedure. The anesthesia plan was to use monitored anesthesia care (MAC). Immediately prior to administration of medications, the patient was re-assessed for adequacy to receive sedatives. The heart rate, respiratory rate, oxygen saturations, blood pressure, adequacy of pulmonary ventilation, and response to care were monitored throughout the procedure. The physical status of the patient was re-assessed after the procedure. After I obtained informed consent, the scope was passed under direct vision. Throughout the procedure, the patient's blood pressure, pulse, and oxygen saturations were monitored continuously. The Colonoscope was introduced through the anus and advanced to the terminal ileum. The colonoscopy was performed without difficulty. The patient tolerated the procedure well. The quality of the bowel preparation was poor. The terminal ileum, ileocecal valve, appendiceal orifice, and rectum were photographed. Scope In: 6:58:23 AM Scope Withdrawal Time 0 hours 6 minutes 25 seconds Scope Out: 7:07:57 AM Total Procedure Duration Time 0 hours 9 minutes 34 seconds Findings: The perianal and digital rectal examinations were normal. An area of mildly congested mucosa was found in the sigmoid colon, in the transverse colon and in the cecum. Biopsies were taken with a cold forceps for histology. Verification of patient identification for the specimen was done. Estimated blood loss was minimal. A patchy area of the terminal ileum was congested. Biopsies were taken with a cold forceps for histology. Verification of patient identification for the specimen was done. Estimated blood loss was minimal. Impression: - Preparation of the colon was poor. - Congested mucosa in the sigmoid colon, in the transverse colon and in the cecum. Biopsied. - Congested mucosa in the terminal ileum. Biopsied. Recommendation: - Discharge patient to home. - Resume previous diet. - Continue present medications. - Await pathology results. - Repeat colonoscopy is recommended for surveillance. The colonoscopy date will be determined after pathology results from today's exam become available for review. Procedure Code(s): --- Professional --- 04462, Colonoscopy, flexible; with biopsy, single or multiple CPT copyright 2021 [employer]. All rights reserved. The codes documented in this report are preliminary and upon insurance coder review may be revised to meet current compliance requirements. Rodrick Kowalski DO 06/22/2023 7:19:45 AM This report has been signed electronically. Number of Addenda: 0 Note Initiated On: 06/22/2023 6:54 AM
--- NOTE | 2023-06-22 07:20 | OP.CCLET_ITS ---
06/22/2023 No Primary Care Physician Re : Colonoscopy procedure for Lori Merida [facility] Care Physician This procedure was performed on Thursday, June 22, 2023. My impressions and recommendations are as follows: Impressions : - Preparation of the colon was poor. - Congested mucosa in the sigmoid colon, in the transverse colon and in the cecum. Biopsied. - Congested mucosa in the terminal ileum. Biopsied. Recommendations : - Discharge patient to home. - Resume previous diet. - Continue present medications. - Await pathology results. - Repeat colonoscopy is recommended for surveillance. The colonoscopy date will be determined after pathology results from today's exam become available for review. My findings are described in the full procedure note, which is enclosed. If I can be of further assistance, please feel free to contact me at . Sincerely, Rodrick Kowalski, 06/22/2023 7:19:45 AM This report has been signed electronically.
[2023-06-22 07:25] VITALS: BP 112/68; BP 116/67; PULSE 66; RESP 16; O2SAT 99
[2023-06-22 07:30] VITALS: BP 103/61; BP 112/68; PULSE 69; RESP 16; TEMP 36.1; O2SAT 98
[2023-06-22 07:44] VITALS: BP 112/68
== END 2023-06-22 07:51 | disposition home or self-care (01) ==
LOC: EN 05:20 → AC 05:21
PROVIDERS: Visit Provider Internal Medicine Gastroenterology
PROC: 0DJD8ZZ Inspection of Lower Intestinal Tract, Via Natural or Artificial Opening Endoscopic (ICD-10-PCS; CPT 45378; principal; 2023-06-22 06:25)
DX: K31.1 Adult hypertrophic pyloric stenosis (principal); F12.188 Cannabis abuse with other cannabis-induced disorder; K31.84 Gastroparesis; J45.909 Unspecified asthma, uncomplicated; Z90.49 Acquired absence of other specified parts of digestive tract; R11.2 Nausea with vomiting, unspecified; K52.9 Noninfective gastroenteritis and colitis, unspecified; K21.9 Gastro-esophageal reflux disease without esophagitis; Z87.19 Personal history of other diseases of the digestive system; F17.200 Nicotine dependence, unspecified, uncomplicated
CPT/HCPCS: 43245; 45380; 88305; 88341; 88342; J7120; C1769; J2405

== ENCOUNTER 2023-07-17 09:10 | Emergency (ER) | payer OTHER, MEDICAID, SELFPAY ==
[2023-07-17 09:10] VITALS: BP 139/76; PULSE 89; RESP 20; TEMP 36; O2SAT 99; BMI 33.6
--- NOTE | 2023-07-17 10:01 | EDS_ITS ---
HPI HPI - GI History of Present Illness Chief Complaint: Abd Pain Informant: patient Narrative Narrative: 2 or 3 days of an exacerbation of patient's chronic issue with abdominal pain. She states these are similar symptoms to what she has had in the past. Pain is across her periumbilical mid abdomen bilateral more upper than lower. Associated with vomiting. She has frequent flareups. Several times per week now on average. She states the triggers seem to be random. Sometimes it is something that she eats, sometimes it is getting cold, this time she does not know what the trigger was but she is having trouble keeping things down has not been able to take any medications for this as a result, she is having bowel movements it is diarrhea without blood or melena, urinating normally. Difficult to get some details from her as she is in painful distress. [facility] Medical History Marijuana use Wears glasses Gastric reflux Shortness of breath on exertion History of IBS Vapes nicotine containing substance Gastroparesis Vaginal delivery ADHD IBS (irritable bowel syndrome) Encounter for induction of labor Rh negative state in antepartum period Depression affecting IUGR (intrauterine growth restriction) Low iron Marijuana use Syncope Upper abdominal pain Nausea & vomiting Anemia Depression Anxiety Asthma Home Medications ?Medication ?Instructions ?Recorded ?Last Taken ?Type albuterol sulfate 90 mcg/actuation 2 inh inhalation PRN asthma #8.5 05/15/23 06/22/23 04:30 Rx aerosol inhaler grams metoclopramide HCl 5 mg tablet 5 mg PO TID #90 tabs 06/22/23 Unknown Rx pantoprazole 20 mg tablet,delayed 20 mg PO BID 3 months #180 tabs 06/22/23 Unknown Rx release promethazine 25 mg tablet 25 mg PO Q6H PRN PRN Nausea #10 07/17/23 Unknown Rx TABLETS sucralfate 1 gram tablet 1 g PO TID #21 tabs 07/17/23 Unknown Rx Allergy/AdvReac Type Severity Reaction Status Date / Time No Known Allergies Allergy Verified 07/17/23 09:10 Family History Father Diabetes Mother Depression Grandmother Breast cancer Surgical History Tubal ligation status History of esophagogastroduodenoscopy (EGD) History of cholecystectomy (~09/2021) H/O dilation and curettage History of adenoidectomy Hx of tonsillectomy Social History household members: significant other Smoking Status: Current every day smoker tobacco type: cigarettes and e- cigarettes alcohol intake: never substance use type: marijuana ROS ROS ED Review of Systems ROS Unobtainable: other Details: Limited due to painful distress Constitutional Constitutional ED: Denies fever(s) Cardiovascular Cardiovascular: Denies chest pain Respiratory/Chest Respiratory/Chest: Denies dyspnea Gastrointestinal Gastrointestinal: Reports abdominal pain, diarrhea, nausea and vomiting; Denies melena Genitourinary Genitourinary ED: Denies dysuria or hematuria Musculoskeletal Musculoskeletal: Denies back pain or neck pain Neurologic Neurologic: Denies headache(s) EXAM Physical Exam Const Vital Signs: 07/17/23 09:10 07/17/23 11:10 Temperature 96.8 F L Temperature Source Temporal Pulse Rate 89 61 Respiratory Rate 20 H 14 Blood Pressure 139/76 H 147/62 H Blood Pressure Mean 97 90 Pulse Ox 99 100 Oxygen Delivery Method Room Air Room Air Positive well nourished, well developed and obese Constitutional Narrative: Squatting on floor, hunched over bed with emesis basin in her hand and pain General Appearance ED: well developed Nutritional Appearance: obese HEENT Reports moist mucous membranes normocephalic and atraumatic Eyes PERRL and EOMs intact bilaterally Neck full ROM and supple Resp normal respiratory effort and clear to auscultation bilaterally Cardio regular rate, regular rhythm and no murmurs Rate: Negative for tachycardic GI non-distended GI Narrative: Tender without guarding or rebound across upper abdomen and periumbilical area no lower abdominal tenderness. No distention. Normal bowel sounds present. Auscultation: normoactive bowel sounds Palpation: soft Back/Spine no CVA tenderness General Back: other FROM Extremity normal to inspection General Extremety ED: Negative for edema, pulses abnormal or tenderness General Extremity: Negative for edema or pulses abnormal Neuro oriented x3, CN's II-XII intact bilaterally and no sensory deficits noted Sensorium / Orientation: awake and alert Motor Exam: strength 5/5 throughout Psych Mood & Affect: anxious Skin no rashes or lesions noted and no wounds MDM MDM MDM Narrative Medical decision making narrative: Initially give the patient Toradol, morphine, Zofran for her pain in addition to adding Bentyl and a GI cocktail since this sounds more likely to be functional intestinal pain than anything acute. She has had prior cholecystectomy. Zofran did not help so I ordered Thorazine since she appears quite anxious and this may also help more with her vomiting. Looking back at her record she has a history of a diagnosis of bile reflux gastritis which could explain this severe upper abdominal discomfort as well. After giving her the medicine, she is doing much better. She states all of her symptoms are much improved, and she feels ready to go home. She does have a white blood count that is a little higher than she had in the past, however given the fact that this is similar symptoms to her chronically recurrent symptoms just worse, I do not think she needs advanced imaging at this time although was considered. I did review her last CT a/p which was about a month ago and it was negative for anything acute. Lab Data Attestation: I reviewed the patient's lab results. Labs: Laboratory Results - last 24 hr 07/17/23 09:20 WBC 14.8 H RBC 5.23 Hgb 14.3 Hct 42.7 MCV 81.6 MCH 27.3 MCHC 33.5 RDW Std Deviation 41.0 RDW Coeff of [place] 14.1 Plt Count 378 MPV 11.4 Immature Gran % (Auto) 0.500 Neut % (Auto) 79.2 H Lymph % (Auto) 14.3 L [place] % (Auto) 5.1 Eos % (Auto) 0.5 Baso % (Auto) 0.4 Absolute Neuts (auto) 11.8 H Absolute Lymphs (auto) 2.12 Nucleated RBC % 0 Sodium 139 Potassium 3.7 Chloride 108 H Carbon Dioxide 22.0 Anion Gap 9 BUN 10 Creatinine 0.95 Estim Creat Clear Calc 103.89 Est GFR (MDRD) Af Amer 94 Est GFR (MDRD) Non-Af 78 BUN/Creatinine Ratio 10.5 Glucose 113 H Calcium 9.1 Total Bilirubin 0.80 AST 13 L ALT 18 Alkaline Phosphatase 77 Total Protein 8.5 H Albumin 4.4 Globulin 4.1 Albumin/Globulin Ratio 1.1 Lipase 19 Serum , Qual NEGATIVE Discharge Plan Triage Chief Complaint: Abd Pain ED Provider: Davis Dorman Dx/Rx/DC Orders Clinical Impression: Acute upper abdominal pain, Bile reflux gastritis Instructions: Abdominal Pain, ED Diet, [place] (Adult) Prescriptions: New promethazine 25 mg tablet 25 mg PO Q6H PRN PRN (Reason: Nausea) Qty: 10 0RF sucralfate 1 gram tablet 1 g PO TID Qty: 21 0RF No Action albuterol sulfate 90 mcg/actuation HFA aerosol inhaler 2 inh INHALATION PRN Qty: 8.5 0RF pantoprazole 20 mg tablet,delayed release (DR/EC) 20 mg PO BID 90 Days Qty: 180 3RF metoclopramide HCl 5 mg tablet 5 mg PO TID Qty: 90 1RF Rx Instructions: administer 30 minutes before meals Primary Care Provider: Care Physician,No Primary Referrals: Friend,DO Rodrick [Med Staff - Active Staff] - (call for guidance/follow up if symptoms persist) Print Language: Tanzanian Disposition Disposition: Home, Self Care
[2023-07-17 10:07] LABS: Absolute Lymphocyte Count 2.12 X10^3/uL (0.83-4.51); Absolute Neutrophil Count 11.8 X10^3/uL (2.0-7.7); Basophil# 0.06 X10^3/uL; Basophil% 0.4 % (0-1); Eosinophil# 0.07 X10^3/uL; Eosinophils% 0.5 % (0-5); Hematocrit 42.7 % (37-47); Hemoglobin 14.3 g/dL (12.0-15.0); Lymphocyte # 2.12 X10^3/ul (0.83-4.51); Lymphocyte % 14.3 % (19-41); Mean Corp Hgb Conc 33.5 g/dL (32-36); Mean Corpuscular Hgb 27.3 pg (27.0-32.0); Mean Corpuscular Volume 81.6 fL (81-99); Mean Platelet Vol. 11.4 fl (6.2-12.0); Monocyte# 0.75 X10^3/uL; Monocyte% 5.1 % (0-10); NRBC Flagged by Analyzer 0 % (0-5); Neutrophil # 11.77 X10^3/uL (2.7-7.7); Neutrophil % 79.2 % (47-70); Platelet Count 378 K/mm3 (150-450); RBC Distribution Width CV 14.1 % (11.6-14.6); Red Blood Count 5.23 M/mm3 (4.2-5.4); White Blood Count 14.8 K/mm3 (4.4-11.0)
[2023-07-17] MEDS: Mag Hydrox/Al Hydrox/Simeth 30 ML UDC PO (10:14)
[2023-07-17] MEDS: Lidocaine 2% Viscous15 ML UDC 15 ML PO (10:15)
[2023-07-17] MEDS: Morphine 4 MG/ML Syringe IV (10:15)
[2023-07-17] MEDS: Ondansetron 4 MG/2 ML Vial IV (10:15)
[2023-07-17] MEDS: Ketorolac 30 MG/ML Syringe IV (10:15)
[2023-07-17] MEDS: Dicyclomine 20 MG/2 ML Vial IM (10:15)
[2023-07-17] MEDS: 0.9% Normal Saline (1000mL) 1,000 ML 999 ML IV (10:24)
[2023-07-17 10:38] LABS: Internal QC Validated? YES +Cl - CLEAR BKGD; Pregnancy, Serum, hCG Quali. NEGATIVE Negative
[2023-07-17 10:39] LABS: Record Kit Lot#, Serum Preg. HCG0000735774
[2023-07-17 10:44] LABS: ALB/GLOB Ratio 1.1 RATIO (0.9-2.4); AST(SGOT) 13 U/L (15-37); Alanine Aminotransfer ALT/SGPT 18 U/L (13-56); Albumin, Serum 4.4 g/dL (3.2-5.0); Alkaline Phosphatase 77 U/L (45-117); Anion Gap 9 (5-15); BUN 10 mg/dL (7-18); BUN/Creat Ratio 10.5 RATIO (10-20); Calcium,Total 9.1 mg/dL (8.5-10.1); Chloride 108 mmol/L (98-107); Creatinine, Serum 0.95 mg/dL (0.55-1.02); EST Glomerular Filtration Rate 78 mL/min (>60); Est Glom Filt Rate - Afr Amer 94 mL/min (>60); Estimated Creatinine Clearance 103.89 ml/min; Globulin 4.1 g/dL (2.2-4.2); Glucose 113 mg/dL (74-106); Lipase 19 U/L (13-75); Potassium 3.7 mmol/L (3.5-5.1); Protein, Total 8.5 g/dL (6.4-8.2); Sodium Level 139 mmol/L (136-145)
[2023-07-17 11:10] VITALS: BP 147/62; PULSE 61; RESP 14; O2SAT 100
[2023-07-17] MEDS: NORMAL SALINE 0.9% IV (11:35)
[2023-07-17] MEDS: CHLORPROMAZINE IV (11:35)
== END 2023-07-17 14:00 | disposition home or self-care (01) ==
PROVIDERS: Emergency Provider Emergency Medicine; Visit Provider Emergency Medicine
DX: K29.60 Other gastritis without bleeding (principal); R10.33 Periumbilical pain; G89.29 Other chronic pain; F17.210 Nicotine dependence, cigarettes, uncomplicated; F17.290 Nicotine dependence, other tobacco product, uncomplicated; Z79.899 Other long term (current) drug therapy
CPT/HCPCS: 80053; 83690; 84703; 85025; 96361; 96365; 96372; 96375; 99283; J7030; J7050; A4216; J2405; J3490

== ENCOUNTER 2023-08-18 05:01 | Emergency (ER) | payer OTHER, MEDICAID, SELFPAY ==
[2023-08-18 05:02] VITALS: BP 141/85; PULSE 75; RESP 18; TEMP 36.1; O2SAT 97; BMI 33.3
--- NOTE | 2023-08-18 05:53 | ED.VIS.GI ---
HPI HPI - GI History of Present Illness Chief Complaint: Abd Pain Informant: patient Narrative Narrative: Patient is a 22-year-old female with history of chronic abdominal pain, bile reflux gastritis, cholecystectomy, regular marijuana use, intermittent hematemesis presenting with recurrent abdominal pain, nausea, vomiting and hematemesis. Patient follows with Dr. Kowalski. She states she has been prescribed lots of medicines but none of them worked. She states that couple days ago she had blood in her vomit that she describes as brown and red that was intermittent between strings and flecks. She states she has been dealing with a lot of the symptoms for the past 2 years since she had her child. She subsequently had a tubal ligation and is not concerned for . Last menstrual period was 1 month ago. States her bowel moods been normal. Denies any urinary symptoms or fever. States the pain is in her epigastric region but now radiates down to her left upper quadrant or left flank. She feels that it is a nonstop burning. Has tried [id number] medicine such as Pepto-Bismol and antacids with no significant relief. Does feel like hot showers and heat to her abdomen as well as massage to her back helps with her symptoms. Feels that marijuana helps with her nausea. Patient an EGD on 06/22/2023 which showed erythematous mucosa of the gastric body, gastroparesis, gastric stenosis that was dilated. Patient is prescribed Reglan, pantoprazole and Phenergan as well as Carafate from not sure how much of that she is taking. [facility] Medical History Marijuana use Wears glasses Gastric reflux Shortness of breath on exertion History of IBS Vapes nicotine containing substance Gastroparesis Vaginal delivery ADHD IBS (irritable bowel syndrome) Encounter for induction of labor Rh negative state in antepartum period Depression affecting IUGR (intrauterine growth restriction) Low iron Marijuana use Syncope Upper abdominal pain Nausea & vomiting Anemia Depression Anxiety Asthma Home Medications ?Medication ?Instructions ?Recorded ?Last Taken ?Type albuterol sulfate 90 mcg/actuation 2 inh inhalation PRN asthma #8.5 05/15/23 06/22/23 04:30 Rx aerosol inhaler grams metoclopramide HCl 5 mg tablet 5 mg PO TID #90 tabs 06/22/23 Unknown Rx pantoprazole 20 mg tablet,delayed 20 mg PO BID 3 months #180 tabs 06/22/23 Unknown Rx release promethazine 25 mg tablet 25 mg PO Q6H PRN PRN Nausea #10 07/17/23 Unknown Rx TABLETS sucralfate 1 gram tablet 1 g PO TID #21 tabs 07/17/23 Unknown Rx Allergy/AdvReac Type Severity Reaction Status Date / Time No Known Allergies Allergy Verified 07/17/23 09:10 Family History Father Diabetes Mother Depression Grandmother Breast cancer Surgical History Tubal ligation status History of esophagogastroduodenoscopy (EGD) History of cholecystectomy (~09/2021) H/O dilation and curettage History of adenoidectomy Hx of tonsillectomy Social History household members: significant other Smoking Status: Current every day smoker tobacco type: cigarettes and e-cigarettes alcohol intake: never substance use type: marijuana ROS ROS ED Constitutional Constitutional ED: Denies chills or fever(s) Cardiovascular Cardiovascular: Denies chest pain Respiratory/Chest Respiratory/Chest: Denies cough Gastrointestinal Gastrointestinal: Reports abdominal pain, nausea and vomiting; Denies constipation, diarrhea or melena Genitourinary Genitourinary ED: Denies dysuria or hematuria Musculoskeletal Musculoskeletal: Denies arthralgias or myalgias Integumentary Denies rash Neurologic Neurologic: Denies headache(s) Psychiatric Psychiatric: Reports anxiety Hematologic/Lymphatic Hematologic/Lymphatic: Denies easy bleeding or easy bruising EXAM Physical Exam Const Vital Signs: 08/18/23 05:02 Temperature 97 F L Temperature Source Temporal Pulse Rate 75 Respiratory Rate 18 Blood Pressure 141/85 H Blood Pressure Mean 103 Pulse Ox 97 Oxygen Delivery Method Room Air Positive well nourished and well developed General Appearance ED: well developed and NAD; Negative for pallor HEENT Reports moist mucous membranes Eyes PERRL General Eye ED: Negative for scleral icterus Neck supple Resp normal respiratory effort and clear to auscultation bilaterally Cardio regular rate and regular rhythm GI non-distended Auscultation: normoactive bowel sounds Palpation: soft and tender epigastric, LLQ and LUQ Back/Spine no CVA tenderness Extremity full ROM Neuro Sensorium / Orientation: alert Motor Exam: Negative for general weakness Psych thought process normal Mood & Affect: anxious Skin General Skin Exam: Negative for jaundice or pallor MDM MDM MDM Narrative Medical decision making narrative: Patient evaluated for recurrent nausea and vomiting. She also has chronic abdominal pain. Patient appears nontoxic but uncomfortable secondary symptoms. She continues smoke marijuana suspect she has a component of cannabis hyperemesis syndrome. Lab work is obtained which is largely normal including CBC, CMP, lactate and urinalysis. Her hemoglobin is near her baseline at 12.9 and she has a normal BUN to low suspicion for any significant upper GI bleed. Is not clear if she is compliant with her PPI therapy. Patient did not think she was on the antacid but was not entirely sure. Patient is given IV Haldol and Ativan as well as a bolus of fluids and a dose of IV pantoprazole for symptoms. She has improvement of her symptoms would like to go home. She states she is a doctor appointment to make 2. She is able to tolerate p.o. challenge. Given return precautions. Encouraged to follow-up with GI and stop smoking marijuana. Lab Data Labs: Laboratory Results - last 24 hr 08/18/23 08/18/23 05:17 06:10 WBC 7.3 RBC 4.68 Hgb 12.9 Hct 38.2 MCV 81.6 MCH 27.6 MCHC 33.8 RDW Std Deviation 40.9 RDW Coeff of [place] 14.0 Plt Count 257 MPV 12.2 H Immature Gran % (Auto) 0.300 Neut % (Auto) 64.7 Lymph % (Auto) 26.3 [place] % (Auto) 7.0 Eos % (Auto) 1.2 Baso % (Auto) 0.5 Absolute Neuts (auto) 4.7 Absolute Lymphs (auto) 1.92 Nucleated RBC % 0 Sodium 139 Potassium 3.5 Chloride 109 H Carbon Dioxide 21.0 Anion Gap 9 BUN 5 L Creatinine 0.76 Estim Creat Clear Calc 129.19 Est GFR (MDRD) Af Amer 122 Est GFR (MDRD) Non-Af 100 BUN/Creatinine Ratio 6.6 L Glucose 91 Lactic Acid 0.7 Calcium 9.4 Total Bilirubin 0.90 AST 20 ALT 21 Alkaline Phosphatase 54 Total Protein 7.6 Albumin 4.1 Globulin 3.5 Albumin/Globulin Ratio 1.2 Lipase 16 Serum , Qual NEGATIVE Urine Color Yellow Urine Clarity Clear Urine pH 7.0 Ur Specific [place] 1.015 Urine Protein 30 H Urine Glucose (UA) Normal Urine Ketones 50 H Urine Occult Blood Negative Urine Nitrite Negative Urine Bilirubin Negative Urine Urobilinogen 1 H Ur Leukocyte Esterase Negative Urine RBC 0 SEEN Urine WBC 0 SEEN Ur Squamous Epith Cells 0-5 SEEN Urine Bacteria 0 SEEN Urine Mucus 1+ Discharge Plan Triage Chief Complaint: Abd Pain ED Provider: Clarissa Marina Dx/Rx/DC Orders Clinical Impression: Nausea and vomiting, Abdominal pain, chronic, generalized Instructions: ED Chronic Pain, ED Vomiting (Adult) Prescriptions: No Action albuterol sulfate 90 mcg/actuation HFA aerosol inhaler 2 inh INHALATION PRN Qty: 8.5 0RF promethazine 25 mg tablet 25 mg PO Q6H PRN PRN (Reason: Nausea) Qty: 10 0RF sucralfate 1 gram tablet 1 g PO TID Qty: 21 0RF pantoprazole 20 mg tablet,delayed release (DR/EC) 20 mg PO BID 90 Days Qty: 180 3RF metoclopramide HCl 5 mg tablet 5 mg PO TID Qty: 90 1RF Rx Instructions: administer 30 minutes before meals Primary Care Provider: Care Physician,No Primary Referrals: Care Physician,No Primary [Primary Care Provider] - Activity Restrictions/Additional Instructions: Please continue to follow-up with GI. If you are not taking pantoprazole please make sure you are taking that daily. (You do have this prescribed). Make sure you are drinking plenty of fluids. Your lab work was very stable today. Print Language: Chinese Disposition Disposition: Home, Self Care
[2023-08-18 06:02] LABS: Bacteria 0 SEEN /hpf (None Seen); Red Blood Cells-Urine 0 SEEN /hpf (0-5); White Blood Cells 0 SEEN /hpf (0-5)
[2023-08-18] MEDS: Haloperidol Lactate 5 MG/ML Vial 1 MG IV (06:05)
[2023-08-18] MEDS: 0.9% Normal Saline (1000mL) 1,000 ML 999 ML IV (06:06)
[2023-08-18 06:07] LABS: Absolute Lymphocyte Count 1.92 X10^3/uL (0.83-4.51); Absolute Neutrophil Count 4.7 X10^3/uL (2.0-7.7); Basophil# 0.04 X10^3/uL; Basophil% 0.5 % (0-1); Eosinophil# 0.09 X10^3/uL; Eosinophils% 1.2 % (0-5); Hematocrit 38.2 % (37-47); Hemoglobin 12.9 g/dL (12.0-15.0); Lymphocyte # 1.92 X10^3/ul (0.83-4.51); Lymphocyte % 26.3 % (19-41); Mean Corp Hgb Conc 33.8 g/dL (32-36); Mean Corpuscular Hgb 27.6 pg (27.0-32.0); Mean Corpuscular Volume 81.6 fL (81-99); Mean Platelet Vol. 12.2 fl (6.2-12.0); Monocyte# 0.51 X10^3/uL; NRBC Flagged by Analyzer 0 % (0-5); Neutrophil # 4.71 X10^3/uL (2.7-7.7); Neutrophil % 64.7 % (47-70); Platelet Count 257 K/mm3 (150-450); RBC Distribution Width SD 40.9 fl (35.1-43.9); Red Blood Count 4.68 M/mm3 (4.2-5.4); White Blood Count 7.3 K/mm3 (4.4-11.0)
[2023-08-18] MEDS: LORazepam 2 MG/ML Syringe 0.5 MG IV (06:07)
[2023-08-18] MEDS: Pantoprazole Sodium 40 MG in 0.9% Normal Saline (100mL MB+) 100 ML 330 MG IV (06:08)
[2023-08-18 06:18] LABS: Color, Urine Yellow (Yellow); Glucose, Dipstick Normal (Normal); Ketone-Dipstick 50 mg/dl (Negative); Leukocyte Esterase-Dipstick Negative /ul (Negative); Nitrite-Dipstick Negative (Negative); Occult Blood-Urine Negative /ul (Negative); Protein-Dipstick 30 mg/dl (Negative); Specific Gravity, Urine 1.015 (1.002-1.030); Urine Bilirubin Dipstick Negative (Negative); Urine Clarity Clear (Clear); Urine Urobilinogen 1 mg/dl (Normal)
[2023-08-18 06:23] LABS: ALB/GLOB Ratio 1.2 RATIO (0.9-2.4); AST(SGOT) 20 U/L (15-37); Alanine Aminotransfer ALT/SGPT 21 U/L (13-56); Albumin, Serum 4.1 g/dL (3.2-5.0); Alkaline Phosphatase 54 U/L (45-117); Anion Gap 9 (5-15); BUN 5 mg/dL (7-18); BUN/Creat Ratio 6.6 RATIO (10-20); Calcium,Total 9.4 mg/dL (8.5-10.1); Chloride 109 mmol/L (98-107); Creatinine, Serum 0.76 mg/dL (0.55-1.02); EST Glomerular Filtration Rate 100 mL/min (>60); Est Glom Filt Rate - Afr Amer 122 mL/min (>60); Estimated Creatinine Clearance 129.19 ml/min; Globulin 3.5 g/dL (2.2-4.2); Glucose 91 mg/dL (74-106); Lipase 16 U/L (13-75); Potassium 3.5 mmol/L (3.5-5.1); Protein, Total 7.6 g/dL (6.4-8.2); Sodium Level 139 mmol/L (136-145)
[2023-08-18 06:32] LABS: Internal QC Validated? YES +Cl - CLEAR BKGD; Pregnancy, Serum, hCG Quali. NEGATIVE Negative
[2023-08-18 06:34] LABS: Mucous, Urine 1+ /hpf (<or=2+); Squamous Epithelial Cells - UA 0-5 SEEN /hpf (5-10)
[2023-08-18 07:01] VITALS: BP 132/77; PULSE 64; RESP 16; O2SAT 98
[2023-08-18 07:07] LABS: Lactic Acid 0.7 mmol/L (0.4-1.9)
[2023-08-18 07:48] VITALS: BP 132/77; PULSE 64; RESP 16; TEMP 36.3; O2SAT 98
== END 2023-08-18 07:48 | disposition home or self-care (01) ==
PROVIDERS: Emergency Provider Emergency Medicine; Visit Provider Emergency Medicine
DX: K92.0 Hematemesis (principal); R10.84 Generalized abdominal pain; G89.29 Other chronic pain; F17.210 Nicotine dependence, cigarettes, uncomplicated; F17.290 Nicotine dependence, other tobacco product, uncomplicated; Z90.49 Acquired absence of other specified parts of digestive tract
CPT/HCPCS: 80053; 81001; 83605; 83690; 84703; 85025; 96361; 96365; 96375; 99282; J7030; A4216

== ENCOUNTER 2023-08-21 01:27 | Emergency (ER) | payer OTHER, MEDICAID, SELFPAY ==
[2023-08-21 01:28] VITALS: BP 128/76; PULSE 63; RESP 18; TEMP 36.8; O2SAT 99; BMI 34.9
[2023-08-21] MEDS: Ketorolac 60 MG/2 ML Vial IM (02:00)
--- NOTE | 2023-08-21 02:13 | EDS_ITS ---
HPI HPI - GI History of Present Illness Chief Complaint: Abd Pain Informant: patient Narrative Narrative: 22-year-old female states that ever since she had an emergent D&C 2 years ago she has had upper abdominal pain and vomiting. She states that it is every day and she cannot keep anything to eat or drink down for these 2 years. She states that she is seeing gastroenterology no one's been able to find her problems. She notes that over the past month to the past couple weeks she has had pain moving more towards the left side of her abdomen down towards her pelvis. She states she was seen at an emergency department in [facility] where she was told that she had an ovarian cyst which did not come as a surprise to her because she states she has a history of PCOS. She states that she has been worse constantly every day for the past week. Nothing is different at 0130 hrs. on this Tuesday morning compared to yesterday other than she is tired of feeling poorly. She states that she does not currently have a corner brace block machine operator as that her last corner brace block machine operator did not respect decision she wanted to make regarding her body. No diarrhea. No dysuria. She denies any history of kidney stones. No significant vaginal discharge lesions or bleeding. She reports a prior tubal ligation. [facility] Medical History IBS (irritable bowel syndrome) Ovarian cyst Marijuana use Wears glasses Gastric reflux Shortness of breath on exertion History of IBS Vapes nicotine containing substance Gastroparesis Vaginal delivery ADHD IBS (irritable bowel syndrome) Encounter for induction of labor Rh negative state in antepartum period Depression affecting IUGR (intrauterine growth restriction) Low iron Marijuana use Syncope Upper abdominal pain Nausea & vomiting Anemia Depression Anxiety Asthma Home Medications ?Medication ?Instructions ?Recorded ?Last Taken ?Type albuterol sulfate 90 mcg/actuation 2 inh inhalation PRN asthma #8.5 05/15/23 06/22/23 04:30 Rx aerosol inhaler grams Allergy/AdvReac Type Severity Reaction Status Date / Time No Known Allergies Allergy Verified 08/21/23 01:33 Family History Father Diabetes Mother Depression Grandmother Breast cancer Surgical History Tubal ligation status History of esophagogastroduodenoscopy (EGD) History of cholecystectomy (~09/2021) H/O dilation and curettage History of adenoidectomy Hx of tonsillectomy Social History household members: significant other Smoking Status: Current every day smoker tobacco type: e-cigarettes alcohol intake: never substance use type: marijuana ROS ROS ED Constitutional Constitutional ED: Denies chills, fever(s) or weight loss Eyes Eyes: Denies change in vision or diplopia ENT ENT ED: Denies ear pain, rhinorrhea or sore throat Cardiovascular Cardiovascular: Denies chest pain, orthopnea, palpitations or racing heartbeat Respiratory/Chest Respiratory/Chest: Denies cough, dyspnea or orthopnea Gastrointestinal Gastrointestinal: Reports abdominal pain, nausea and vomiting; Denies diarrhea Genitourinary Genitourinary ED: Denies dysuria, hematuria or urinary frequency Musculoskeletal Musculoskeletal: Denies arthralgias or myalgias Integumentary Denies abscess or rash Neurologic Neurologic: Denies headache(s) or weakness Psychiatric Psychiatric: Denies anxiety, depression, suicidal ideation or suicidal thoughts Endocrine Endocrinology: Denies polydipsia, polyphagia or polyuria Allergic/Immunologic Allergic/Immunologic ED: Denies mouth swelling, tongue swelling or urticaria EXAM Physical Exam Const Vital Signs: 08/21/23 01:28 08/21/23 03:27 08/21/23 04:16 Temperature 98.2 F 97.3 F L Temperature Source Oral Pulse Rate 63 86 79 Respiratory Rate 18 16 16 Blood Pressure 128/76 H 140/82 H 140/82 H Blood Pressure Mean 93 101 101 Pulse Ox 99 98 98 Oxygen Delivery Method Room Air Room Air Positive well nourished and well developed General Appearance ED: well developed HEENT Reports normocephalic, head/scalp atraumatic and moist mucous membranes Eyes PERRL and EOMs intact bilaterally Neck no lymphadenopathy, supple and no JVD Resp normal respiratory effort and clear to auscultation bilaterally Cardio regular rate, regular rhythm and no murmurs GI normal to inspection, nondistended, normoactive bowel sounds and non-tender Palpation: soft Back/Spine no CVA tenderness and normal ROM Extremity normal to inspection General Extremety ED: Negative for edema General Extremity: Negative for edema Neuro oriented x3 and CN's II-XII intact bilaterally Sensorium / Orientation: alert Motor Exam: strength 5/5 throughout Psych Psych Narrative: Patient appears emotionally distraught regarding her health. Mood & Affect: depressed; Negative for anxious Skin no rashes or lesions noted and no wounds MDM MDM MDM Narrative Medical decision making narrative: Differential diagnosis includes but not limited to UTI ureterolithiasis ovarian torsion ovarian cyst bowel obstruction undiagnosed gastrointestinal disease depression/anxiety malignancy Urinalysis shows contamination but no overt infection. CT of the abdomen pelvis was obtained which demonstrates an unchanged dermoid cyst on the right compared to June 2023. Patient received a dose of Toradol as well as Zofran. I believe this to be an ongoing chronic issue. I do recommend following up with both primary care or gastroenterology and gynecology. She wishes to see a corner brace block machine operator in [place]. I can provide her with a local referral if she would like. She is still looking for a primary care doctor. History & Record Review Discussion w/independent historian: Patient Additional record(s) reviewed:: Prior outpatient record and Prior ED visit Lab Data Attestation: I reviewed the patient's lab results. Labs: Laboratory Results - last 24 hr 08/21/23 01:58 Urine Color Yellow Urine Clarity Clear Urine pH 6.5 Ur Specific [place] 1.020 Urine Protein 30 H Urine Glucose (UA) Normal Urine Ketones 15 H Urine Occult Blood 10 H Urine Nitrite Negative Urine Bilirubin 1 H Urine Urobilinogen 8 H Ur Leukocyte Esterase Negative Urine RBC 5-10 SEEN Urine WBC 0-5 SEEN Ur Squamous Epith Cells 5-10 SEEN Urine Bacteria RARE Hyaline Casts 10-25 SEEN Fine Granular Casts 5-10 SEEN Urine Mucus 4+ Urine Test Negative Radiography Diagnostic Testing: Clinical Impression(s) from Imaging Studies Abdomen/Pelvis CT 08/21/23 02:50 IMPRESSION: No acute findings. 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 Right hepatic lesion 1.5 cm possible hemangioma but not completely characterized and likely recent previously. Follow-up MRI may be helpful for further characterization. Electronically Signed: Massiel Wells MD at 3:59 EDT Reading Location ID and State: [facility] / [place] Tel , Service support , Discharge Plan Triage Chief Complaint: Abd Pain ED Provider: London Elmore Dx/Rx/DC Orders Clinical Impression: Abdominal pain, Vomiting, Ovarian cyst Instructions: Abdominal Pain, ED Ovarian Cyst, ED Vomiting (Adult) Prescriptions: No Action albuterol sulfate 90 mcg/actuation HFA aerosol inhaler 2 inh INHALATION PRN Qty: 8.5 0RF Primary Care Provider: Care Physician,No Primary Referrals: Jenny Rodríguez MD [Med Staff - Active Staff] - As soon as possible Care Physician,No Primary [Primary Care Provider] - Activity Restrictions/Additional Instructions: Please follow-up with a corner brace block machine operator as soon as possible. If you wish to see 1 in [place] that is fine. I have provided a local referral above. Print Language: Divehi Disposition Disposition: Home, Self Care Discharge Date/Time: 08/21/23 04:19
[2023-08-21] MEDS: Ondansetron ODT 4 MG Tablet PO (02:32)
[2023-08-21 02:38] LABS: Color, Urine Yellow (Yellow); Glucose, Dipstick Normal (Normal); Internal QC Validated? YES +Cl - CLEAR BKGD; Ketone-Dipstick 15 mg/dl (Negative); Leukocyte Esterase-Dipstick Negative /ul (Negative); Nitrite-Dipstick Negative (Negative); Occult Blood-Urine 10 /ul (Negative); Pregnancy, Urine Negative Negative; Protein-Dipstick 30 mg/dl (Negative); Record Kit Lot#,Urine Preg 772476; Urine Bilirubin Dipstick 1 mg/dL (Negative); Urine Clarity Clear (Clear); Urine Urobilinogen 8 mg/dl (Normal); Urine pH 6.5 (5.0 - 8.0)
[2023-08-21 02:45] LABS: Bacteria RARE /hpf (None Seen); Fine Granular Cast- Urine 5-10 SEEN /lpf (0-5); Hyaline Cast 10-25 SEEN /lpf (0-5); Mucous, Urine 4+ /hpf (<or=2+); Red Blood Cells-Urine 5-10 SEEN /hpf (0-5); Squamous Epithelial Cells - UA 5-10 SEEN /hpf (5-10); White Blood Cells 0-5 SEEN /hpf (0-5)
--- NOTE | 2023-08-21 02:50 | CT_ITS ---
EXAM: CT Abdomen And Pelvis W/O Contrast Injection HISTORY: pain TECHNIQUE: Routine protocol CT abdomen and pelvis. IV Contrast: None.. Oral contrast: None. RADIATION DOSAGE (If Supplied By Facility): CTDIvol = ( 13.60 ) mGy, DLP = ( 720.13 ) mGycm Individualized dose optimization techniques were used for this CT. COMPARISON: CT abdomen and pelvis 06/13/2023. LIMITATIONS: None. FINDINGS: LOWER CHEST: Included lung bases are clear. LIVER: Small subtle 1.5 cm low-attenuation structure in the right lobe possibly hemangioma, not clearly visualized on the prior. Low attenuation adjacent to the falciform ligament may be focal fatty infiltration. GALLBLADDER AND BILIARY TREE: The gallbladder is surgically absent. PANCREAS: Grossly unremarkable. SPLEEN: Grossly unremarkable. ADRENAL GLANDS: Grossly unremarkable. KIDNEYS AND URETERS: No calculi demonstrated. No hydronephrosis. PERITONEUM: No free air. No free fluid. BOWEL: No bowel obstruction. APPENDIX: Visualized and unremarkable. No evidence of acute appendicitis. VESSELS: Abdominal aorta is normal caliber. REPRODUCTIVE ORGANS: Grossly unremarkable right ovarian complex mass 3.8 x 2.8 cm predominantly fat attenuation with soft tissue and calcification, consistent with dermoid, unchanged. Previously noted left ovarian cystic structure is not identified URINARY BLADDER: Not distended. ABDOMINAL WALL: Unremarkable. BONES: No acute abnormalities. CT/Abdomen/Pelvis without Cont IMPRESSION: No acute findings. 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 Right hepatic lesion 1.5 cm possible hemangioma but not completely characterized and likely recent previously. Follow-up MRI may be helpful for further characterization. Electronically Signed: Massiel Wells MD at 3:59 EDT ,
[2023-08-21 03:27] VITALS: BP 140/82; PULSE 86; RESP 16; O2SAT 98
[2023-08-21 04:16] VITALS: BP 140/82; PULSE 79; RESP 16; TEMP 36.3; O2SAT 98
== END 2023-08-21 04:19 | disposition home or self-care (01) ==
PROVIDERS: Emergency Provider Emergency Medicine; Visit Provider Emergency Medicine
DX: R11.2 Nausea with vomiting, unspecified (principal); D27.0 Benign neoplasm of right ovary; F17.200 Nicotine dependence, unspecified, uncomplicated
CPT/HCPCS: 74176; 81001; 81025; 96372; 99282

== ENCOUNTER 2023-12-04 10:06 | Emergency (ER) | payer OTHER, MEDICAID, SELFPAY ==
[2023-12-04 10:07] VITALS: BP 140/99; PULSE 87; RESP 18; TEMP 36.9; O2SAT 97; BMI 31.6
--- NOTE | 2023-12-04 11:17 | ED.VIS.GI ---
HPI HPI - GI History of Present Illness Chief Complaint: Abd Pain Detail of Chief Complaint: Acute on chronic abdominal pain with nausea and vomiting. Informant: patient Abdominal Pain/Flank Pain Onset: Today and Yesterday Context: Gradual Onset Timing: Continuous Quality: Aching and Cramping Location: Diffuse Current Severity: Moderate Maximum Severity: Moderate Worsened by: Nothing Relieved by: Nothing Nausea/Vomiting/Emesis GI Symptom: Positive for Nausea and Vomiting Onset: Today and Yesterday Severity: Mild Diarrhea/Melena/Hematochezia GI Symptom: Negative for Diarrhea Associated Symptoms Associated Symptoms: Negative for Dysuria, Frequency, Hematuria or Urgency Narrative Narrative: 22-year-old female history of chronic abdominal pain and IBS. She does use marijuana. States she has had a prior cholecystectomy and tubal ligation. She has had this pain for 2 and half years since her last . She sees both GI and her HEAD OF OPERATION AND LOGISTICS for it they did not have a specific cause. She has had multiple prior emergency department evaluations for this and multiple CAT scans showing ovarian cyst but no other acute finding. She has never had a bowel obstruction or any bowel resection. She denies any fever. No urinary symptoms. Prior similar symptoms: Yes Recent Illness/Hospitalization: No PFSH PFSH Medical History IBS (irritable bowel syndrome) Ovarian cyst Marijuana use Wears glasses Gastric reflux Shortness of breath on exertion History of IBS Vapes nicotine containing substance Gastroparesis Vaginal delivery ADHD IBS (irritable bowel syndrome) Encounter for induction of labor Rh negative state in antepartum period Depression affecting IUGR (intrauterine growth restriction) Low iron Marijuana use Syncope Upper abdominal pain Nausea & vomiting Anemia Depression Anxiety Asthma Home Medications ?Medication ?Instructions ?Recorded ?Last Taken ?Type albuterol sulfate 90 mcg/actuation 2 inh inhalation PRN asthma #8.5 05/15/23 06/22/23 04:30 Rx aerosol inhaler grams alprazolam 1 mg tablet 1 mg PO QHS PRN sleep #30 tabs 08/26/23 Unknown Rx ondansetron 4 mg disintegrating 4 mg PO Q6H PRN nausea and 12/04/23 Unknown Rx tablet vomiting #10 tabs Allergy/AdvReac Type Severity Reaction Status Date / Time No Known Allergies Allergy Verified 08/21/23 01:33 Family History Father Diabetes Mother Depression Grandmother Breast cancer Surgical History Tubal ligation status History of esophagogastroduodenoscopy (EGD) History of cholecystectomy (~09/2021) H/O dilation and curettage History of adenoidectomy Hx of tonsillectomy Social History household members: significant other Smoking Status: Current every day smoker tobacco type: e-cigarettes alcohol intake: never substance use type: marijuana ROS ROS ED ROS Narrative Abdominal pain diffuse. Nausea vomiting. Normal bowel movements. No dysuria. No fever. Constitutional Constitutional ED: Denies chills or fever(s) ENT ENT ED: Denies ear pain Cardiovascular Cardiovascular: Denies chest pain Respiratory/Chest Respiratory/Chest: Denies cough or dyspnea Gastrointestinal Gastrointestinal: Reports abdominal pain, nausea and vomiting; Denies constipation, diarrhea or melena Genitourinary Genitourinary ED: Denies dysuria, hematuria or urinary frequency Musculoskeletal Musculoskeletal: Denies arthralgias or back pain Integumentary Denies abscess or Abrasions Neurologic Neurologic: Denies headache(s) Psychiatric Psychiatric: Denies anxiety Endocrine Endocrinology: Denies polydipsia Hematologic/Lymphatic Hematologic/Lymphatic: Denies easy bleeding Allergic/Immunologic Allergic/Immunologic ED: Denies mouth swelling, tongue swelling or urticaria EXAM Physical Exam Narrative Exam Narrative: 22-year-old female on all fours on the bed. Vital signs are stable afebrile. She does not look septic toxic. No distress. Complaining of pain. H EENT exam retrieves membranes. Pupils round react light. No trauma to her face or head. Neck nontender. Lungs clear. Heart regular rhythm rate about 85 no murmur. Chest wall and ribs nontender. Abdomen is soft nondistended normal bowel sounds without peritoneal signs. She complains of abdominal pain but is not really reproducible or made worse with palpation. There is no hernia or mass. No obstruction. Both the right upper and right lower quadrants are unremarkable. Positive bowel sounds. Moving all 4 extremities. Nontender no edema. Back nontender. She is awake and alert no focal motor deficits. Const Vital Signs: 12/04/23 10:07 12/04/23 12:13 Temperature 98.5 F Temperature Source Oral Pulse Rate 87 73 Respiratory Rate 18 18 Blood Pressure 140/99 H 142/109 H Blood Pressure Mean 112 120 Pulse Ox 97 97 Oxygen Delivery Method Room Air Room Air Positive well nourished and well developed; Negative for cachectic, contractures or unkempt General Appearance ED: well developed and NAD; Negative for unkempt, cachectic, contractures or pallor Nutritional Appearance: Negative for cachectic HEENT Reports moist mucous membranes normocephalic and atraumatic; Negative for trauma or tenderness Eyes PERRL and EOMs intact bilaterally General Eye ED: Negative for pale conjunctiva or scleral icterus Neck no lymphadenopathy, supple and no JVD General: Negative for tenderness Carotids: Negative for other Lymph Lymphatic: Negative for other Resp normal respiratory effort and clear to auscultation bilaterally Effort and Inspection: Negative for respiratory distress Auscultation: Negative for rales, rhonchi, wheezes or diminished lung sounds Cardio regular rate, regular rhythm, S1 normal heart sound, S2 normal heart sound and no murmurs GI non-tender, non-distended and no masses GI Narrative: Soft. Nondistended. Normal bowel sounds. No hernia or mass. No localizing tenderness. No tenderness made worse with palpation. Inspection: Negative for abdominal distention Auscultation: normoactive bowel sounds Palpation: soft; Negative for tender, guarding, hernia, mass, pulsatile mass or rebound tenderness present Back/Spine no CVA tenderness General Back: Negative for CVA tenderness Cervical Spine: Negative for cervical spine tenderness Thoracic Spine / Upper Back: Negative for thoracic spinal tenderness Extremity full ROM General Extremety ED: Negative for edema or tenderness General Extremity: Negative for edema Neuro CN's II-XII intact bilaterally and moves all extremities Sensorium / Orientation: alert, oriented to person, oriented to place and oriented to time; Negative for orientation impaired, confused, lethargic or stuporous Motor Exam: strength 5/5 throughout Psych mental status grossly normal and thought process normal Appearance: Negative for unkempt Attitude: No agitated Mood & Affect: anxious; Negative for depressed or tearful Skin no wounds General Skin Exam: Negative for jaundice or pallor Lesions: no lesions Rashes: no rashes Trauma: Negative for abrasion Nails: Negative for discolored MDM MDM MDM Narrative Medical decision making narrative: 22-year-old female with acute on chronic abdominal pain of uncertain etiology. Screening labs to be obtained. She has had multiple CAT scans in the last 2 to 3 years here. Given that she has no signs of obstruction and has a benign abdomen I do not think she needs a CAT scan at this time unless her labs are significantly abnormal. She will be given Toradol for pain. Zofran for nausea. And Ativan for anxiety. Repeat exam patient is doing well at 12:40 PM. Abdomen soft and benign. Not distended. Pain is improved. Not completely resolved. There is no localizing tenderness. There is no hernia or distention. She requested shot more for nausea should be given a second dose of Zofran states that normally works. She is comfortable being discharged to home. She will be written for a prescription for Zofran for home. History & Record Review Discussion w/independent historian: Patient Additional record(s) reviewed:: Prior inpatient record, Prior outpatient record, Prior ED visit and Prior labs Lab Data Attestation: I reviewed the patient's lab results. Lab results narrative: CBC shows white count 11. H&H 14 and 42. Platelets 330. It is unremarkable. Chemistries show gap 7. Normal BUN and creatinine of 7 and 0.7. Liver enzymes unremarkable. Lipase normal at 21. Serum test negative. Labs are normal and compared prior no significant change. Labs: Laboratory Results - last 24 hr 12/04/23 11:30 WBC 11.0 RBC 5.01 Hgb 14.3 Hct 42.1 MCV 84.0 MCH 28.5 MCHC 34.0 RDW Std Deviation 40.2 RDW Coeff of Connor 13.1 Plt Count 330 MPV 10.2 Immature Gran % (Auto) 0.400 Neut % (Auto) 84.0 H Lymph % (Auto) 11.8 L [place] % (Auto) 3.0 Eos % (Auto) 0.3 Baso % (Auto) 0.5 Absolute Neuts (auto) 9.3 H Absolute Lymphs (auto) 1.30 Nucleated RBC % 0 Sodium 139 Potassium 4.0 Chloride 107 Carbon Dioxide 25.0 Anion Gap 7 BUN 7 Creatinine 0.74 Estim Creat Clear Calc 129.28 Est GFR (MDRD) Af Amer 125 Est GFR (MDRD) Non-Af 103 BUN/Creatinine Ratio 9.4 L Glucose 126 H Calcium 8.9 Total Bilirubin 0.60 AST 13 L ALT 22 Alkaline Phosphatase 74 Total Protein 8.8 H Albumin 4.4 Globulin 4.4 H Albumin/Globulin Ratio 1.0 Lipase 21 Serum , Qual NEGATIVE Discharge Plan Triage Chief Complaint: Abd Pain ED Provider: Marcos Arizmendi Dx/Rx/DC Orders Clinical Impression: Abdominal pain, Cyclical vomiting, History of marijuana use Instructions: ED Abdominal Pain Unkn Cause Fem Prescriptions: New ondansetron 4 mg tablet,disintegrating 4 mg PO Q6H PRN (Reason: nausea and vomiting) Qty: 10 0RF No Action alprazolam 1 mg tablet 1 mg PO QHS PRN (Reason: sleep) Qty: 30 1RF albuterol sulfate 90 mcg/actuation HFA aerosol inhaler 2 inh INHALATION PRN Qty: 8.5 0RF Primary Care Provider: Care Physician,No Primary Referrals: Rodrick Kowalski, [Med Staff - Active Staff] - As Needed Kathy Arzate [Non-Staff] - As Needed Care Physician,No Primary [Primary Care Provider] - Activity Restrictions/Additional Instructions: Zofran as needed for nausea. You may use water like dissolve under your tongue. Plenty of fluids and rest. Increase your diet slowly as tolerated. Strongly consider stopping marijuana use altogether. It will give you intractable abdominal pain and vomiting. Follow-up with your doctors as needed. Print Language: Algerian Disposition Disposition: Home, Self Care
[2023-12-04] MEDS: Ketorolac 30 MG/ML Syringe IV (11:25)
[2023-12-04] MEDS: LORazepam 2 MG/ML Syringe 1 MG IV (11:25)
[2023-12-04] MEDS: Ondansetron 4 MG/2 ML Vial IV ×2 (11:25→12:53)
--- OUTSIDE RECORDS SUMMARY | 2023-12-04 11:27 | XMS RPT_ITS | CCD ---
Author Organization [facility] CliniSyms Care Team Providers Care Reel And Rewinder Operator Name Role Phone JOHN GALVEZ Unavailable Unavailable YANO, JOSE ALFREDO L Unavailable Unavailable DYLAN, KAMAL Unavailable Unavailable MAGDALENO GALVEZTH SHAW Unavailable Unavailable SIERRA GALVEZDITH SHAW Unavailable Unavailable YANO, JOSE ALFREDO L Unavailable Unavailable DYLAN, KAMAL Unavailable Unavailable POMERENE, [facility] Attending Unava ilable POMERENE, [facility] Primary Care Unava ilable POMERENE, [facility] Admitting Unava ilable Unavailable Primary Care Provider Unavailjuan carlos ravi PHYSICIAN, NONE Primary Care Physician Unavailab MARICRUZ Gilman MD Attending Unavail able PHYSICIAN, NONE Primary Care Unavailable Unavailable Primary Care Provider UnavailJYOTI Ridley Attending Unavailable NO, PHYSICIAN Primary Care Unavailable NONE, NONE Primary Care Unavailable LOFTON DO~[id number], LOFTON PATITO K Attending Unavailable LOFTON DO~[id number], LOFTON PATITO K Admitting Unavailable JYOTI RODRIGES MD Consulting Unavailable JYOTI RODRIGES MD Consulting Unavailable NONE, NONE Consulting Unavailable DECLINED, Consulting Unavailable LUIS MANUEL BERUMEN APRN Consulting Unavailab LUIS MANUEL Mcclelland APRN Consulting Unavailab SONY Streeter Attending Unavailable CHRISTIAN MONDRAGON Admitting Unavailable Unavailable Primary Care Provider UnavailPAYAL Navarro Referring Unavailable No Family, Physician Primary Care Unavailable No Family, Physician Primary Care Unavailable ANSLEY IBRAHIM Referring Unavailable MAYITO GRANADOS Referring Unavailable MAYITO GRANADOS Attending Unavailable ANSLEY IBRAHIM Referring Unavailable RUDOLPH RALPH Attending Unavailable MAYITO GRANADOS Referring Unavailable ANSLEY IBRAHIM Attending Unavailable MAYITO GRANADOS Referring Unavailable MAYITO GRANADOS Referring Unavailable ANGELINE CARRANZA Attending Unavail able ANGELINE CARRANZA Attending Unavail able DARWIN, MAYITO L Referring Unavailable DARWIN, MAYITO L Referring Unavailable DANNI REYNOLDS Attending Unavailable DARWIN, MAYITO L Referring Unavailable DARWIN, MAYITO L Referring Unavailable ANGELINE CARRANZA Attending Unavail able SVETLANA SCHAEFFER Referring Unavailable STEPHEN PRETTY Attending Unavailable DANNI REYNOLDS Attending Unavailable ANGELINE CARRANZA Attending Unavail able SHARON SUNG Referring Unavailable DANNI REYNOLDS Referring Unavailable DARWIN, MAYITO L Referring Unavailable ANSLEY IBRAHIM Attending Unavailable SVETLANA SCHAEFFER Attending Unavailable WILFRID LAURA Referring Unavailable ANSLEY IBRAHIM Attending Unavailable Pcp ART PROFESSOR, No Primary Care Provider Unavailabl e Allergies Allergy Classification Reported Allergen(s) Allergy Type Date of Onset Reaction(s) Facility (1 source) Environmental allergy; Translations: [ENVIRONMENTAL] Propensity to adverse reactions (disorder) 8 [facility] Repository (20 sources) Seasonal allergy; Translations: [SEASONAL ALLERGIES] Allergy to substance 8 Cough, Other: See Comments, Itching [facility] Work Phone: Medications Current Medications Medication Drug Class(es) Dates Sig (Normalized) Sig (Original) [id number] 200 actuat albuterol 0.09 mg/actuat metered dose inhaler (20 sources) beta2-Adrenergic Agonist Start: 11-18-2023 take 2 puff(s) by inhalation every four hours as needed for wheezing albuterol HFA (PROVENTIL HFA, VENTOLIN HFA) 90 mcg/actuation inhaler Inhale 2 Puffs as instructed every 4 hours as needed for wheezing/shortnes s of breath. 6.7 g 11/18/2023 Active Start: 03-12-2023 End: 11-18-2023 take 2 puff(s) by inhalation every four hours as needed for wheezing albuterol HFA (PROVENTIL HFA, VENTOLIN HFA) 90 mcg/actuation inhaler Inhale 2 Puffs as instructed every 4 hours as needed for wheezing/shortness of breath. 8 g 06/15/2023 11/18/2023 Discontinued Start: 08-21-2022 End: 11-18-2023 take 2 puff(s) by inhalation every six hours as needed albuterol HFA (PROAIR HFA) 90 mcg/actuation inhaler Inhale 2 Puffs as instructed every 6 hours as needed. 18 g 08/21/2022 11/18/2023 Discontinued Start: 04-02-2019 End: 12-23-2022 take 2 puff(s) by inhalation every four hours as needed for wheezing albuterol HFA (VENTOLIN HFA) 90 mcg/actuation inhaler Indications: Viral URI with cough Inhale 2 Puffs as instructed every 4 hours as needed for Wheezing/Shortness of Breath. 1 Inhaler 04/02/2019 12/23/2022 Discontinued Comment on above: Inhale 2 Puffs as in structed every 4 hours as needed for Wheezing/Shortness of Breath. Inhale 2 Puffs as in structed every 4 hours as needed. Inhale 2 Puffs as in structed every 6 hours as needed. amoxicillin 875 mg / clavulanate 125 mg oral tablet (1 source) Penicillin-class Antibacterial Start: 2023 End: 2023 take 1 tablet by mouth twice daily amoxicillin-clavulan ate potassium (AUGMENTIN) 875-125 mg per tablet Take 1 tablet by mouth two times a day for 7 days. 14 tablet 0 06/02/2023 06/09/2023 Active azithromycin 250 mg oral tablet (1 source) Macrolide Antimicrobial Start: 2023 End: 2023 take 2 tablets by mouth once daily, then take 1 tablet by mouth once daily azithromycin (ZITHROMAX) 250 mg tablet Take 2 tablets by mouth once daily for 1 day, THEN 1 tablet once daily for 4 days. 6 tablet 11/18/2023 11/23/2023 Active cetirizine hydrochloride 10 mg oral tablet (7 sources) Histamine-1 Receptor Antagonist Start: 2023 take 1 tablet by mouth once daily cetirizine (ZYRTEC) 10 mg tablet Take 1 tablet by mouth once daily. 30 tablet 06/15/2023 Active dicyclomine hydrochloride 20 mg oral tablet (1 source) Anticholinergic Start: 2021 End: 2021 take 1 tablet by mouth four times daily Bentyl use dicyclomine Dose : 20 mg =, Oral, QID, # 30 tab(s), 0 Refill(s), Abdominal pain Ovarian cyst Start Date: 12/25/21 Stop Date: 01/01/22 Status: Ordered ferrous sulfate 325 mg oral tablet (20 sources) Start: 2021 ferrous sulfate 325 mg (65 mg iron) tablet Take by mouth. 09/02/2021 Active Comment on above: Take by mouth. fluticasone propionate 0.05 mg/actuat metered dose nasal spray (7 sources) Corticosteroid Start: 2023 take 2 spray(s) by mouth once daily fluticasone (FLONASE) 50 mcg/actuation nasal spray Use 2 Sprays in each nostril once daily. Rinse mouth after use. 11.1 mL 06/15/2023 Active Inhalational Spacing Device (1 source) Start: 2023 End: 2023 Inhalational Spacing Device 1 Device one time only for 1 dose. 1 Each 11/18/2023 11/18/2023 Active ondansetron 4 mg disintegrating oral tablet (20 sources) Serotonin-3 Receptor Antagonist Start: 2022 take 2 tablets by mouth every eight hours as needed for nausea ondansetron orally disintegrating (ZOFRAN ODT) 4 mg disintegrating tablet TAKE 2 TABLETS BY MOUTH EVERY 8 HOURS NEEDED FOR NAUSEA 11/06/2022 Active ondansetron (ZOF RAN) 8 mg tablet Take by mouth three times a day as needed. Active Comment on above: [facility]KE 2 [facility]TS [facility] 8 HOURS NEEDED FOR NAUSEA Take by mouth three times a day as needed. predniSONE 10 mg oral tablet (4 sources) Start: 06-15-2023 End: 06-24-2023 predniSONE (DELTASONE) 10 mg tablet Take 4 tabs daily for 3 days, then 2 tabs daily for 3 days, then 1 tab daily for 3 days with food. 21 tablet 0 06/15/2023 06/24/2023 Active Start: 06-02-2023 End: 06-06-2023 take 2 tablets by mouth once daily at mealtime predniSONE (DELTASONE) 20 mg tablet Take 2 tablets by mouth once daily for 4 days. Take daily with food. 8 tablet 0 06/02/2023 06/06/2023 Active Start: 03-12-2023 End: 06-02-2023 predniSONE (DELTASONE) 10 mg tablet Take 4 tabs daily for 3 days, then 2 tabs daily for 3 days, then 1 tab daily for 3 days with food. 21 tablet 0 03/12/2023 06/02/2023 Discontinued (Course of therapy completed) Comment on above: Take 4 tabs daily fo r 3 days, then 2 tabs daily for 3 days, then 1 tab daily for 3 days with food. vit/iron fum/folic ac ( 1 + 1 ORAL) (20 sources) Start: 06-15-2021 vit/iron fum/folic ac ( 1 + 1 ORAL) Take by mouth. 06/15/2021 Active Start: 06-15-2021 vit/i rachel fum/folic ac ( 1 + 1 ORAL) Take by mouth. 0 06/15/2021 Suspended Start: 06-15-2021 vit/i rachel fum/folic ac ( 1 + 1 ORAL) Take by mouth. 0 06/15/2021 Active Comment on above: Take by mouth. prochlorperazine 10 mg oral tablet (20 sources) Phenothiazine Start: 023 take 1 tablet by mouth once daily prochlorperazine (COMPAZINE) 10 mg tablet Take 10 mg by mouth once daily. 12/03/2022 Active Comment on above: Take 10 mg by mouth once daily. Completed/Discontinued Medications Medication Drug Class(es) Dates Sig (Normalized) Sig (Original) benzonatate 100 mg oral capsule (12 sources) Non-narcotic Antitussive Start: 06-02-2023 End: 11-18-2023 take 1 capsule by mouth every eight hours as needed benzonatate (TESSALON PERLE) 100 mg capsule Take 1 capsule by mouth three times a day as needed for cough. 20 capsule 06/02/2023 11/18/2023 Discontinued (Course of therapy completed) Start: 04-11-2019 End: 11-09-2021 take 2 capsules by mouth every eight hours as needed benzonatate (TESSALON PERLES) 100 mg capsule Take 2 capsules by mouth three times daily as needed. 30 capsule 04/11/2019 11/09/2021 Discontinued (Course of therapy completed) Comment on above: Take 2 capsules by m outh three times daily as needed. brompheniramine maleate 0.4 mg/ml / dextromethorphan hydrobromide 2 mg/ml / pseudoephedrine hydrochloride 6 mg/ml oral solution (2 sources) alpha-Adrenergic Agonist, Uncompetitive P-tytfrf-N-aspartate Receptor Antagonist, Sigma-1 Agonist Start: 05-10-19 End: 06-02-19 take 10 mL by mouth every six hours as needed Brompheniramine-Pse udoeph-DM (BROMFED DM) 2-30-10 mg/5 mL syrup Take 10 mL by mouth four times a day as needed. 200 mL 0 05/10/2023 06/02/2023 Discontinued (Course of therapy completed) Comment on above: Take 10 mL by mouth four times a day as needed. Ethinyl Estradiol / norgestimate (4 sources) Progestin, Estrogen Start: 02-21-19 End: 12-10-19 take 1 tablet by mouth once daily SPRINTEC 0.25-35 mg-mcg per tablet Take 1 tablet by mouth once daily. 02/21/2019 12/09/2021 Discontinued Start: 02-21-2019 End: 12-09-2021 take 1 tablet by mouth once daily SPRINTEC 0.25-35 mg-mcg per tablet Take 1 tablet by mouth once daily. 0 02/21/2019 12/09/2021 Discontinued Start: 02-21-2019 take 1 tablet by keyonna th once daily SPRINTEC 0.25-35 mg-mcg per tablet Take 1 tablet by mouth once daily. 0 02/21/2019 Active Comment on above: Take 1 tablet by keyonna th once daily. Problems Active Problems Problem Classification Problem Date Documented Date Episodic/Chronic Abdominal pain (10 sources) Abdominal pain; Translations: [Unspecified abdominal pain] Onset: 12-25-2021 Episodic Asthma (20 sources) Mild intermittent asthma; Translations: [Mild intermittent asthma, uncomplicated] Onset: 12-23-2022 12-24-2022 Chronic Attention-deficit, conduct, and disruptive behavior disorders (20 sources) Attention deficit hyperactivity disorder; Translations: [Attention-deficit hyperactivity disorder, unspecified type] Onset: 12-28-2022 12-28-2022 Chronic Fluid and electrolyte disorders (2 sources) Hypokalemia; Translations: [Hypokalemia] Onset: 06-15-2022 Episodic Genitourinary symptoms and ill-defined conditions (3 sources) Proteinuria, unspecified; Translations: [Scalding pain on urination ] Onset: 06-15-2022 Episodic Other and unspecified benign neoplasm (3 sources) Benign neoplasm, unspecified site; Translations: [Benign neoplasm of unspecified site] Onset: 08-25-2023 08-24-2023 Episodic Other and unspecified benign neoplasm (4 sources) Mature cystic teratoma of right ovary; Translations: [Benign neoplasm of right ovary] Onset: 08-25-2023 08-26-2023 Episodic Other complications of (1 source) Maternal obesity complicating , childbirth and the puerperium, antepartum; Translations: [Obesity complicating , third trimester] 12-28-2022 Chronic Other complications of (3 sources) Spotting complicating , first trimester; Translations: [SPOTTING COMP FIRST TRI] Onset: 07-11-2022 Episodic Other complications of (7 sources) Nausea and vomiting; Translations: [Vomiting of , unspecified] Onset: 11-15-2022 11-15-2022 Episodic Other complications of (8 sources) High risk ; Translations: [Supervision of other high risk pregnancies, third trimester] 12-28-2022 Episodic Other connective tissue disease (2 sources) Pain in right hand; Translations: [Pain in right hand] Episodic Other endocrine disorders (5 sources) Polycystic ovary syndrome; Translations: [Polycystic ovarian syndrome] Onset: 08-24-2023 08-24-2023 Chronic Other female genital disorders (20 sources) Vaginal bleeding; Translations: [Abnormal uterine and vaginal bleeding, unspecified] Onset: 12-23-2022 12-24-2022 Chronic Other female genital disorders (1 source) Abnormal uterine and vaginal bleeding, unspecified; Translations: [Vaginal bleeding] Onset: 12-23-2022 Chronic Other female genital disorders (1 source) Other noninflammatory disorders of ovary, fallopian tube and broad ligament; Translations: [Other noninflammatory disorders of ovary, fallopian tube and broad ligament] Onset: 08-19-2023 Episodic Other female genital disorders (1 source) Enlarged uterus; Translations: [Hypertrophy of uterus] 08-24-2023 Episodic Other female genital disorders (1 source) Hypertrophy of uterus; Translations: [Enlarged uterus] Onset: 08-25-2023 Episodic Other injuries and conditions due to external causes (2 sources) Thumb injury ; Translations: [Unspecified injury of right wrist, hand and finger(s), initial encounter] 07-21-2023 Episodic Other liver diseases (1 source) Hepatomegaly, not elsewhere classified; Translations: [Hepatomegaly, not elsewhere classified] Onset: 08-19-2023 Episodic Other lower respiratory disease (1 source) H/O: asthma; Translations: [Personal history of other diseases of the respiratory system] Episodic Other lower respiratory disease (1 source) Cough; Translations: [Acute cough] 11-18-2023 Episodic Other nutritional; endocrine; and metabolic disorders (1 source) Body mass index (BMI) 60.0-69.9, adult; Translations: [BODY MASS INDEX BMI 60.0-69.9 ADULT] Onset: 07-14-2022 Chronic Other screening for suspected conditions (not mental disorders or infectious disease) (1 source) Ultrasonography of abdomen abnormal; Translations: [Abnormal findings on diagnostic imaging of other abdominal regions, including retroperitoneum] 08-26-2023 Episodic Other upper respiratory infections (1 source) Chronic sinusitis; Translations: [Chronic sinusitis, unspecified] 06-02-2023 Chronic Other upper respiratory infections (4 sources) Viral upper respiratory tract infection; Translations: [Acute upper respiratory infection, unspecified] Episodic Otitis media and related conditions (1 source) Dysfunction of bilateral eustachian tubes; Translations: [Unspecified Eustachian tube disorder, bilateral] 06-15-2023 Episodic Ovarian cyst (1 source) Cyst of [...] of ] 12-20-2022 Episodic Residual codes; unclassified (1 source) Gestation period, 35 weeks; Translations: [35 weeks gestation of ] 12-31-2022 Episodic Residual codes; unclassified (4 sources) Gestation period, 36 weeks; Translations: [36 weeks gestation of ] 01-05-2023 Episodic Residual codes; unclassified (2 sources) Gestation period, 37 weeks; Translations: [37 weeks gestation of ] 01-13-2023 Episodic Substance-related disorders (20 sources) Cannabis abuse, uncomplicated; Translations: [History of clinical finding in subject] Onset: 07-14-2022 11-15-2022 Chronic Substance-related disorders (2 sources) Drug use complicating , first trimester; Translations: [Marijuana user] Onset: 07-14-2022 08-24-2023 Episodic Unclassified (1 source) History of marijuana use; Translations: [History of marijuana use] Onset: 12-27-2022 Viral infection (1 source) Viral disease; Translations: [Viral infection, unspecified] 08-21-2022 Episodic Past or Other Problems Problem Classification Problem Date Documented Date Episodic/Chronic Hemorrhage during ; abruptio placenta; placenta previa (20 sources) Third trimester bleeding; Translations: [Antepartum hemorrhage, unspecified, third trimester] Onset: 12-24-2022 Resolved: 02-23-2023 12-24-2022 Episodic Nausea and vomiting (12 sources) Nausea with vomiting, unspecified; Translations: [Nausea and vomiting] Onset: 06-15-2022 Resolved: 12-28-2022 Episodic Other complications of (20 sources) RhD negative; Translations: [Other specified related conditions, unspecified trimester] Onset: 11-22-2022 11-22-2022 Episodic Other complications of (20 sources) Poor growth affecting management; Translations: [Maternal care for other known or suspected poor growth, third trimester, not applicable or unspecified] Onset: 06-10-2021 Resolved: 02-23-2023 12-24-2022 Episodic Other complications of (9 sources) Depressive disorder; Translations: [Other mental disorders complicating , third trimester] Onset: 12-24-2022 Resolved: 12-26-2022 12-24-2022 Episodic Other complications of (8 sources) Hyperemesis gravidarum; Translations: [Mild hyperemesis gravidarum] Onset: 07-14-2022 Resolved: 12-28-2022 12-28-2022 Episodic Other complications of (1 source) [...] Gastroparesis; Translations: [Gastroparesis] Onset: 11-15-2022 Episodic Other injuries and conditions due to external causes (1 source) Unspecified injury of right wrist, hand and finger(s), initial encounter; Translations: [Injury of right thumb, initial encounter] Onset: 07-21-2023 Episodic Other and delivery including normal (20 [...] Onset: 11-15-2022 11-15-2022 Episodic Residual codes; unclassified (20 sources) Gestation period, 34 weeks; Translations: [34 weeks gestation of ] Onset: 12-23-2022 Resolved: 02-23-2023 12-24-2022 Episodic Residual codes; unclassified (1 source) 37 weeks gestation of ; Translations: [37 weeks gestation of ] Onset: 01-17-2023 Episodic Residual codes; unclassified (1 source) Unspecified blood type, Rh negative; Translations: [Rh negative state in antepartum period] Onset: 12-27-2022 Episodic Residual codes; unclassified (1 source) 36 weeks gestation of ; Translations: [36 weeks gestation of ] Onset: 01-05-2023 Episodic Residual codes; unclassified (1 source) 33 weeks gestation of ; Translations: [33 weeks gestation of ] Onset: 01-03-2023 Episodic Residual codes; unclassified (1 source) 29 weeks gestation of ; Translations: [29 weeks gestation of ] Onset: 11-22-2022 Episodic Screening and history of mental health and substance abuse codes (20 sources) H/O: depression; Translations: [Personal history of other mental and behavioral disorders] Onset: 11-15-2022 11-15-2022 Episodic Short gestation; low weight; and growth retardation (8 sources) growth restriction; Translations: [ growth restriction] Onset: 12-28-2022 Resolved: 12-28-2022 12-28-2022 Episodic NEGATED: Highlighted row has been ruled out!Unclassified (3 sources) No known active problems 12-09-2021 Results Test Name Value Interpretation Reference Range Junior English 11-18-2023 [facility] Office Visit ([facility] ) CHANA DE LA O ([id number]) 1 F Date Time Provider Department 11/18/23 3:45 PM SHARON SUNG [facility] During your visit today, we recorded the following information about you: Temperature Pulse Respiration Blood pressure 97.9 degrees 76/minute 20/minute 124/85 Weight 90.2 kg Sharon Sung APRN.CNP 11/18/2023 4:05 PM Signed Patient presents with: Cough: Chest congestion and tightness x1 week, ST for first 2 days She feels the symptoms are more in her chest. She initially thought she was getting better. Cough Associated symptoms include headaches (occasional), rhinorrhea and sore throat. Pertinent negatives include no chills, no ear pain and no myalgias. Review of Systems Constitutional: Positive for fatigue. Negative for chills and fever. HENT: Positive for congestion, rhinorrhea and sore throat. Negative for ear pain. Respiratory: Positive for cough. Musculoskeletal: Negative for myalgias. Neurological: Positive for headaches (occasional). Physical Exam Vitals reviewed. Constitutional: Appearance: Normal appearance. HENT: Head: Normocephalic. Right Ear: Tympanic membrane, ear canal and external ear normal. Left Ear: Tympanic membrane, ear canal and external ear normal. Nose: Congestion present. Mouth/Throat: Mouth: Mucous membranes are moist. Pharynx: No posterior oropharyngeal erythema. Eyes: Extraocular Movements: Extraocular movements intact. Cardiovascular: Rate and Rhythm: Normal rate and regular rhythm. Heart sounds: Normal heart sounds. Pulmonary: Effort: Pulmonary effort is normal. No respiratory distress. Breath sounds: Normal breath sounds. No wheezing, rhonchi or rales. Comments: Harsh cough Musculoskeletal: Cervical back: Neck supple. Lymphadenopathy: Cervical: No cervical adenopathy. Neurological: Mental Status: She is alert. ASSESSMENT/PLAN: 1. Acute cough - ICD9: 786.2, ICD10: R05.1 - XR CHEST 2V FRONTAL/LAT - CXR per radiologist review showed no acute radiographic abnormality - Refilled albuterol - Tessalon perles for cough - Azithromycin per directions - If no improvement in the next 1 week she will follow up or sooner if symptoms worsen - She verbalized understanding and agreement with this plan. JACQUELINE Vergara Samantha L, APRN.CNP 11/18/2023 3:59 PM Addendum - Albuterol 1-2 puffs every 4-6 hours as needed - Tessalon perles 1-2 capsules up to 3 times per day as needed for cough - If the tessalon perles do not help cough, stop and start dextromethorphan (delsym) per directions - Azithromycin per directions - If no improvement in the next 1 week follow up or sooner if symptoms worsen Allergies As of Date: 11/18/2023 Noted Allergy Reaction SEASONAL ALLERGIES 11/30/2017 3 - Cough 14 - Other: See Comments 9 - Itching Date Reviewed: 11/18/2023 Reviewed by: Sharon Sung APRN.CORE INSERTER - Fully Assessed Reason for Visit: Cough [28] Cmt: Chest congestion and tightness x1 week, ST for first 2 days Primary Visit Diagnosis:Acute cough [R05.1] Order(s):XR CHEST 2V FRONTAL/LAT [[id number]] Order #: [id number]. #:[id number] albuterol HFA (PROVENTIL HFA, VENTOLIN HFA) 90 mcg/actuation inhalerInhale 2 Puffs as instructed every 4 hours as needed for wheezing/shortness of breath.Disp: 6.7 gRfl: 0 Inhalational Spacing Device1 Device one time only for 1 dose.Disp: 1 EachRfl: 0 benzonatate (TESSALON PERLES) 100 mg capsuleTake 1-2 capsules by mouth three times a day as needed for cough.Disp: 30 capsuleRfl: 0 azithromycin (ZITHROMAX) 250 mg tabletTake 2 tablets by mouth once daily for 1 day, THEN 1 tablet once daily for 4 days.Disp: 6 tabletRfl: 0 Prescriptions as of 11/18/2023 - albuterol HFA (PROVENTIL HFA, VENTOLIN HFA) 90 mcg/actuation inhaler Inhale 2 Puffs as instructed every 4 hours as needed for wheezing/shortness of breath. - Inhalational Spacing Device 1 Device one time only for 1 dose. - benzonatate (TESSALON PERLES) 100 mg capsule Take 1-2 capsules by mouth three times a day as needed for cough. - azithromycin (ZITHROMAX) 250 mg tablet Take 2 tablets by mouth once daily for 1 day, THEN 1 tablet once daily for 4 days. - fluticasone (FLONASE) 50 mcg/actuation nasal spray Use 2 Sprays in each nostril once daily. Rinse mouth after use. - cetirizine (ZYRTEC) 10 mg tablet Take 1 tablet by mouth once daily. - ondansetron (ZOFRAN) 8 mg tablet Take by mouth three times a day as needed. - prochlorperazine (COMPAZINE) 10 mg tablet Take 10 mg by mouth once daily. - vit/iron fum/folic ac ( 1 + 1 ORAL) Take by mouth. - ondansetron orally disintegrating (ZOFRAN ODT) 4 mg disintegrating tablet TAKE 2 TABLETS BY MOUTH EVERY 8 HOURS NEEDED FOR NAUSEA - ferrous sulfate 325 mg (65 mg iron) tablet Take by mout (more content not included)... Normal [facility] XR CHEST 2V FRONTAL/LATon XR CHEST 2V FRONTAL/LAT * * *Final Report* * * DATE OF EXAM: Nov 18 2023 3:44PM WOX [id number] - XR CHEST 2V FRONTAL/LAT / PROCEDURE REASON: Acute cough * * * * Physician Interpretation * * * * EXAMINATION: CHEST RADIOGRAPH (2 VIEW FRONTAL and LATERAL) PATIENT/TECHNOLOGIST PROVIDED HISTORY: Acute cough CLINICAL HISTORY: 22 years old Female with Acute cough MQ: [id number] EXAM DATE/TIME: 11/18/2023 3:44 PM COMPARISON: Chest radiograph(s) dated 04/11/2019 RESULT: Lines, tubes, and devices: None. Lungs and pleura: No consolidation. No pleural effusion. No pneumothorax. Cardiomediastinal silhouette: Normal cardiomediastinal silhouette. Bones and soft tissues: Unremarkable. IMPRESSION: No acute radiographic abnormality. Watermelon Inspector: KOLBY Transcribe Date/Time: Nov 18 2023 3:49P Dictated by : DEIRDRE RICK DO This examination was interpreted and the report reviewed and electronically signed by: DEIRDRE RICK DO on Nov 18 2023 3:50PM EST [id number] Normal [facility] XR Chest PA and Lateralon IMPRESSION: No acute radiographic abnormality. Watermelon Inspector: PSCFrance Transcribe Date/Time: Nov 18 2023 3:49P Dictated by : DEIRDRE RICK DO This examination was interpreted and the report reviewed and electronically signed by: DEIRDRE RICK DO on Nov 18 2023 3:50PM [facility] DIVISION OF RADIOLOGY * * *Final Report* * * DATE OF EXAM: Nov 18 2023 3:44PM WOX 5291 - XR CHEST 2V FRONTAL/LAT / PROCEDURE REASON: Acute cough * * * * Physician Interpretation * * * * EXAMINATION: CHEST RADIOGRAPH (2 VIEW FRONTAL & LATERAL) PATIENT/TECHNOLOGIST PROVIDED HISTORY: Acute cough CLINICAL HISTORY: 22 years old Female with Acute cough MQ: XC2_6 EXAM DATE/TIME: 11/18/2023 3:44 PM COMPARISON: Chest radiograph(s) dated 04/11/2019 RESULT: Lines, tubes, and devices: None. Lungs and pleura: No consolidation. No pleural effusion. No pneumothorax. Cardiomediastinal silhouette: Normal cardiomediastinal silhouette. Bones and soft tissues: Unremarkable. DIVISION OF RADIOLOGY Provider, [facility] - 11/18/2023 * * *Final Report* * * DATE OF EXAM: Nov 18 2023 3:44PM WOX 5291 - XR CHEST 2V FRONTAL/LAT / PROCEDURE REASON: Acute cough * * * * Physician Interpretation * * * * EXAMINATION: CHEST RADIOGRAPH (2 VIEW FRONTAL & LATERAL) PATIENT/TECHNOLOGIST PROVIDED HISTORY: Acute cough CLINICAL HISTORY: 22 years old Female with Acute cough MQ: XC2_6 EXAM DATE/TIME: 11/18/2023 3:44 PM COMPARISON: Chest radiograph(s) dated 04/11/2019 RESULT: Lines, tubes, and devices: None. Lungs and pleura: No consolidation. No pleural effusion. No pneumothorax. Cardiomediastinal silhouette: Normal cardiomediastinal silhouette. Bones and soft tissues: Unremarkable. IMPRESSION IMPRESSION: No acute radiographic abnormality. Watermelon Inspector: KOLBY Transcribe Date/Time: Nov 18 2023 3:49P Dictated by : DEIRDRE RICK DO This examination was interpreted and the report reviewed and electronically signed by: DEIRDRE IRCK DO on Nov 18 2023 3:50PM [facility] Radiology Study observation (narrative) [facility] XR Chest PA and LateralOrder ed By: [facility] Provider on 11-18-2023 [facility] US Pelvison 08-26-2023 Indication Pelvic pain, dermoid cyst Impression The uterus is anteverted and measures 77 mm x 34 mm x 50 mm. The endometrial thickness is 4.3 mm. There is a small amount of endometrial fluid. There is a prominent cluster of avascular microcalcifications in the right lateral endo/myometrial junction that measures 6 mm x 4 mm x 4 mm. The endometrium in this area appears slightly thicker. The right ovary measures 41 mm x 45 mm x 34 mm and contains two cysts. 1. Size 38 mm x 30 mm x 25 mm. Dermoid cyst with hyperechoic component with shadowing/lines and dots with internal cystic component 2. Size 12 mm x 10 mm x 10 mm. Dermoid cyst with hyperechoic component with shadowing/lines and dots The left ovary measures 35 mm x 28 mm x 25 mm. There is no free fluid visualized. Recommendations Consider SIS for further evaluation of endometrial cavity to evaluate the area of thickened endometrium if clinically indicated. Ovarian dermoid, follow up ultrasound is recommended in 3 months. History Medical History Surgery: Tubal ligation Menstrual History LMP on 08/22/2023. Contraception: tubal sterilization Method Transabdominal, transvaginal, 3D ultrasound examination, Color Doppler examination. View: Adequate visualization Uterus Uterus: Visualized Uterus position: anteverted Description of uterine malformations: none Myometrium: heterogeneous Endometrium: intracavitary fluid: anechogenic, uniform echogenicity with numerous microcalcifications. Cervix details: cystic lesions identified suggesting superficial Nabothian cysts Uterus length 77 mm Uterus width 50 mm Uterus height 34 mm Uterus Vol 67.7 cm Endometrial thickness, total 4.3 mm Fibroids: No fibroids identified Uterine polyp D1 6 mm Uterine polyp D2 4 mm Uterine polyp D3 4 mm Uterine polyp mean 4.7 mm Uterine polyp findings: prominent cluster of avascular microcalcifications in the right lateral endo/myometrial junction Right Ovary Rt ovary: Visualized Rt ovary D1 41 mm Rt ovary D2 45 mm Rt ovary D3 34 mm Rt ovary Vol 32.7 cm Rt ovarian cyst(s): Cysts identified Rt ovarian cyst D1 38 mm Rt ovarian cyst D2 30 mm Rt ovarian cyst D3 25 mm Rt ovarian cyst mean 31.0 mm Rt ovarian cyst vol 14.923 cm Rt ovarian cyst findings: Dermoid cyst with hyperechoic component with shadowing/lines and dots with internal cystic component Rt ovarian cyst D1 12 mm Rt ovarian cyst D2 10 mm Rt ovarian cyst D3 10 mm Rt ovarian cyst mean 10.7 mm Rt ovarian cyst vol 0.628 cm Rt ovarian cyst findings: Dermoid cyst with hyperechoic component with shadowing/lines and dots Left Ovary Lt ovary: Visualized Lt ovary morphology: premenopausal polycystic Lt ovary D1 35 mm Lt ovary D2 28 mm Lt ovary D3 25 mm Lt ovary Vol 12.8 cm Cul de Sac Visualized. no free fluid visualized Performed By: Maria A Epps RDMS Read By: Birgit Vega M.D. MATERNAL MEDICINE [facility] B-HCG SerPl-aCncon 4 HCG.beta subunit Qn m[IU]/mL Normal <5.0 [facility] Comment on above: Order Comment: Speci men Type: BLOOD SPECIMENOrdering Facility: [facility] Address: [address] [place] [address] Result Comment: Audrey garcía Performed By: #### 2 1198-7 ####[facility] LABCLIA [id number] [place] [address] [place] US Pelvison 08-25-2023 Radiology Study observation (narrative) [facility] BACTERIAL VAGINOSIS NAATon 0 08-24-2023 Lactobacillus crispatus+gasseri+wil enii + Gardnerella vaginalis + Atopobium vaginae rRNA ELMIRA+probe Ql (Vag fld) Positive Abnormal Negative for bacterial vaginosis [facility] Comment on above: Order Comment: Speci men Type: SWABOrdering Facility: [facility] Address: [address] [place] [address] Performed By: #### 3 6902-5, BVAMP ####[facility] LABCLIA [id number] [place] [address] [place] C. trachomatis+N. gonorrhoea e DNA ELMIRA+probe Ql (Unsp spec)on 08-24-2023 C. trachomatis rRNA ELMIRA+probe Ql (Unsp spec) Negative Normal Negative for Chlamydia trachomatis by amplificaton [facility] Comment on above: Order Comment: Speci men Type: SWABOrdering Facility: [facility] Address: [address] [place] [address] Performed By: #### 3 6902-5, BVAMP ####[facility] LABCLIA [id number] [place] [address] [place] N. gonorrhoeae rRNA ELMIRA+probe Ql (Unsp spec) Negative Normal Negative for Neisseria gonorrhoeae by amplification [facility] Comment on above: Order Comment: Speci men Type: SWABOrdering Facility: [facility] Address: [address] [place] [address] Performed By: #### 3 6902-5, BVAMP ####[facility] LABCLIA [id number] [place] [address] [place] ALLIE/TRICHOMONAS NAATon 0 08-24-2023 C. glabrata RNA ELMIRA+probe Ql (Vag fld) Negative Normal Negative for Allie glabrata [facility] Comment on above: Order Comment: Speci men Type: SWABOrdering Facility: [facility] Address: [address] [place] [address] Performed By: #### C VTV ####[facility] LABCLIA [id number] [place] [address] [place] Allie sp DNA ELMIRA+probe Ql (Vag fld) Positive Abnormal Negative for Allie species [facility] Comment on above: Order Comment: Speci men Type: SWABOrdering Facility: [facility] Address: [address] [place] [address] Performed By: #### C VTV ####[facility] LABCLIA [id number] [place] [address] [place] T. vaginalis DNA ELMIRA+probe Ql (Unsp spec) Negative Normal Negative for Trichomonas vaginalis by amplification [facility] Comment on above: Order Comment: Speci men Type: SWABOrdering Facility: [facility] Address: [address] [place] [address] Performed By: #### C VTV ####[facility] [place] [id number] [id number] [id number] [facility] [place] CNOVon 08-24-2023 CNOV Office Visit (OBGYWM ) JAYLYNCHANA Macias ([id number]) 1 F Date Time Provider Department 08/24/23 10:45 AM ANSLEY IBRAHIM OBGYWM During your visit today, we recorded the following information about you: Blood pressure Weight Last Period 116/72 88.5 kg 08/21/23 Ansley Ibrahim APRN.CNM 08/24/2023 12:33 PM Signed Chana Macias Jaylyn is a 22 year old female who presents for problem visit HPI: Here today for follow up from ED visit. Seen in ED at [facility] for abdominal pain. Dermoid cyst seen. Wanted to tell me her history from the beginning when pain started 2 years ago. After of first child 08/28, 3-4 wks after had DANDC for retained membranes. Since that time feels she had problems. 2-3 wks after DANDC had gallbladder removal. Since then non stop throwing up, pain from under breast, to pelvis and going around back. general surgery at [facility], gallbladder removed. Can't keep anything down, smell of food makes her nauseated. is GI doctor doing tests and all negative. Last appointment with was a month ago, has upcoming appointment on Tuesday. Feels that he is listening but no findings. Has anxiety and feels she over thinks things. Notices that it is worse 1 week before menses. Feels like it is really bad and can't manage the pain. Rating pain 20/10, worse than contractions. Takes Midol, ibuprofen, tylenol, naproxen and nothing helps. Naproxen used to work but does not help now. Wondering if it is something from placental retained membranes. Has since had a child. Normal pain does go down into pelvis. Pain is a Prior tubal ligation. Current relationship for one month, ok for STD testing. Smoking marijuana daily, tried to stop for one week, states she lost 15 lbs and pain was worse and was . Smoking daily and 4 times a day. States that pain is improved by sex and baths/showers.Denies any pain with sex. 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 Test Preparer History LMP: 08/21/2023 (Exact Date), Having periods Age at Menarche: Age at First : Age at Menopause: Test Preparer History Comments: Sexual Activity: Yes; No partner data on record Contraception: No contraception data on record PAST MEDICAL HISTORY Diagnosis Date ADHD (attention deficit hyperactivity disorder) Anemia Asthma Gastroparesis IBS (irritable bowel syndrome) PCOS (polycystic ovarian syndrome) Placental abruption in third trimester 12/27/2022 Reactive airway disease inhaler use with URIs PAST SURGICAL HISTORY Procedure Laterality Date DANDC SUCTION 08/31/2021 Retained POC after 08/11/21 vaginal delivery REMOVAL GALLBLADDER REMOVE TONSILS/ADENOIDS,12+ Y/O 2018 SALPINGECTOMY Bilateral 03/04/2023 FAMILY HISTORY Problem Relation Age of Onset No Known Problems Mother Diabetes Father No Known Problems Sister Breast Cancer Maternal Grandmother Obstructive Sleep Apnea Maternal Grandfather Diabetes Paternal Grandfather No Known Problems Half-brother No Known Problems Daughter Social History Tobacco Use Smoking status: Former Years: 8 Types: Cigarettes Quit date: 11/08/2022 Years since quittin.7 Passive exposure: Past Smokeless tobacco: Never Tobacco comments: vape Vaping Use Vaping Use: Some days Substances: Nicotine Substance Use Topics Alcohol use: Never Drug use: Not Currently Types: Marijuana Current Outpatient Medications Medication Sig fluticasone (FLONASE) 50 mcg/actuation nasal spray Use 2 Sprays in each nostril once daily. Rinse mouth after use. albuterol HFA (PROVENTIL HFA, VENTOLIN HFA) 90 mcg/actuation inhaler Inhale 2 Puffs as instructed every 4 hours as needed for wheezing/shortness of breath. cetirizine (ZYRTEC) 10 mg tablet Take 1 tablet by mouth once daily. albuterol HFA (PROVENTIL HFA, VENTOLIN HFA) 90 mcg/actuation inhaler Inhale 2 Puffs as instructed every 4 hours as needed for wheezing/shortness of breath. ferrous sulfate 325 mg (65 mg iron) tablet Take by mouth. albuterol HFA (PROAIR HFA) 90 mcg/actuation inhaler Inhale 2 Puffs as instructed every 6 hours as needed. benzonatate (TESSALON PERLE) 100 mg capsule Take 1 capsule by mouth three times a day as needed for cough. (Patient not taking: Reported on 06/15/2023) ondansetron (ZOFRAN) 8 mg tablet Take by mouth three times a day as needed. (Patient not taking: Reported on 05/10/2023) prochlorperazine (COMPAZINE) 10 mg tablet Take 10 mg by mouth once daily. (Patient not taking: Reported on 05/10/2023) vit/iron fum/folic ac ( 1 + 1 ORAL) Take by mouth. (Patient not taking: Reported on 11/15/2022) ondansetron orally disintegrating (ZOFRAN ODT) 4 mg disintegrating tablet TAKE 2 TABLETS BY MOUTH EVERY 8 HOURS NEEDED FOR NAUSEA (Patient not taking: Reported on 05/10/2023) No current facility-administered medications for this visit. Allergies A (more content not included)... Normal [facility] CBC with Diffon 08-19-2023 Abs. Basophil 0.05 k/uL Normal 0.00-0.20 [facility] Comment on above: Performed By: #### L ACTIC, CBCWD, CMPX, LIP #### [address] [address] Vulnerability Researcher: Dayton Jimenez MD Abs.Imm.Granulocyte 0.03 k/uL Normal 0.00-0.58 [facility] Comment on above: Performed By: #### L ACTIC, CBCWD, CMPX, LIP #### [address] [address] Vulnerability Researcher: Dayton Jimenez MD Abs.Neutrophil (Seg) 3.99 k/uL Normal 1.80-7.30 [facility] Comment on above: Performed By: #### L ACTIC, CBCWD, CMPX, LIP #### [place] [address] Vulnerability Researcher: Dayton Jimenez MD Basophils/100 WBC (Bld) 1 % Normal 0.0-2.0 [facility] Comment on above: Performed By: #### L ACTIC, CBCWD, CMPX, LIP #### [place] [address] Vulnerability Researcher: Dayton Jimenez MD Eosinophils (Bld) [#/Vol] 0.18 10*3/uL Normal 0.05-0.50 [facility] Comment on above: Performed By: #### L ACTIC, CBCWD, CMPX, LIP #### [place] [address] Vulnerability Researcher: Dayton Jimenez MD Eosinophils/100 WBC (Bld) 3 % Normal 0-6 [facility] Comment on above: Performed By: #### L ACTIC, CBCWD, CMPX, LIP #### [place] [address] Vulnerability Researcher: Dayton Jimenez MD Erythrocyte distribution width (RBC) [Ratio] 14.3 % Normal 11.5-15.0 [facility] Comment on above: Performed By: #### L ACTIC, CBCWD, CMPX, LIP #### [place] [address] Vulnerability Researcher: Dayton Jimenez MD Hematocrit (Bld) [Volume fraction] 40.6 % Normal 34.0-48.0 [facility] Comment on above: Performed By: #### L ACTIC, CBCWD, CMPX, LIP #### [address] [place] [address] Vulnerability Researcher: Dayton Jimenez MD Hemoglobin (Bld) [Mass/Vol] 13.4 g/dL Normal 11.5-15.5 [facility] Comment on above: Performed By: #### L ACTIC, CBCWD, CMPX, LIP #### [address] [place] [address] Vulnerability Researcher: Dayton Jimenez MD Immature granulocytes/100 WBC (Bld) 1 % Normal 0.0-5.0 [facility] Comment on above: Performed By: #### L ACTIC, CBCWD, CMPX, LIP #### [address] [place] [address] Vulnerability Researcher: Dayton Jimenez MD Lymphocytes (Bld) [#/Vol] 1.88 10*3/uL Normal 1.50-4.00 [facility] Comment on above: Performed By: #### L ACTIC, CBCWD, CMPX, LIP #### [address] [place] [address] Vulnerability Researcher: Dayton Jimenez MD Lymphocytes/100 WBC (Bld) 28 % Normal 20.0-42.0 [facility] Comment on above: Performed By: #### L ACTIC, CBCWD, CMPX, LIP #### [address] [place] [address] Vulnerability Researcher: Dayton Jimenez MD MCH (RBC) [Entitic mass] 27.8 pg Normal 26.0-35.0 [facility] Comment on above: Performed By: #### L ACTIC, CBCWD, CMPX, LIP #### [address] [place] [address] Vulnerability Researcher: Dayton Jimenez MD MCHC (RBC) [Mass/Vol] 33.0 g/dL Normal 32.0-34.5 [facility] Comment on above: Performed By: #### L ACTIC, CBCWD, CMPX, LIP #### [address] [address] Vulnerability Researcher: Dayton Jimenez MD MCV (RBC) [Entitic vol] 84.2 fL Normal 80.0-99.9 [facility] Comment on above: Performed By: #### L ACTIC, CBCWD, CMPX, LIP #### [address] [address] Vulnerability Researcher: Dayton Jimenez MD Monocytes (Bld) [#/Vol] 0.52 10*3/uL Normal 0.10-0.95 [facility] Comment on above: Performed By: #### L ACTIC, CBCWD, CMPX, LIP #### [address] [address] Vulnerability Researcher: Dayton Jimenez MD Monocytes/100 WBC (Bld) 8 % Normal 2.0-12.0 [facility] Comment on above: Performed By: #### L ACTIC, CBCWD, CMPX, LIP #### [address] [place] [address] Vulnerability Researcher: Dayton Jimenez MD Neutrophil (Seg) 60 % Normal 43.0-80.0 [facility] Comment on above: Performed By: #### L ACTIC, CBCWD, CMPX, LIP #### [address] [address] Vulnerability Researcher: Dayton Jimenez MD Platelet mean volume (Bld) [Entitic vol] 11.7 fL Normal 7.0-12.0 [facility] Comment on above: Performed By: #### L ACTIC, CBCWD, CMPX, LIP #### [place] [address] [place] [address] Vulnerability Researcher: Dayton Jimenez MD Platelets (Bld) [#/Vol] 245 10*3/uL Normal 130-450 [facility] Comment on above: Performed By: #### L ACTIC, CBCWD, CMPX, LIP #### [place] [address] [place] [address] Vulnerability Researcher: Dayton Jimenez MD RBC (Bld) [#/Vol] 4.82 10*6/uL Normal 3.50-5.50 [facility] Comment on above: Performed By: #### L ACTIC, CBCWD, CMPX, LIP #### [address] [place] [address] Vulnerability Researcher: Dayton Jimenez MD WBC (Bld) [#/Vol] 6.7 10*3/uL Normal 4.5-11.5 [facility] Comment on above: Performed By: #### L ACTIC, CBCWD, CMPX, LIP #### [address] [place] [address] Vulnerability Researcher: Dayton Jimenez MD CT ABDOMEN PELVIS W IV CONTR [place] 08-19-2023 CT ABDOMEN PELVIS W IV CONTRAST EXAMINATION: CT OF THE ABDOMEN AND PELVIS WITH CONTRAST 08/19/2023 10:52 am TECHNIQUE: CT of the abdomen and pelvis was performed with the administration of intravenous contrast. Multiplanar reformatted images are provided for review. Automated exposure control, iterative reconstruction, and/or weight based adjustment of the mA/kV was utilized to reduce the radiation dose to as low as reasonably achievable. COMPARISON: None. HISTORY: ORDERING SYSTEM PROVIDED HISTORY: LLQ pain TECHNOLOGIST PROVIDED HISTORY: Reason for exam:->LLQ pain Additional Contrast?->None Decision Support Exception - unselect if not a suspected or confirmed emergency medical condition->Emergency Medical Condition (MA) What reading provider will be dictating this exam?->CRC FINDINGS: Unless otherwise indicated or stated incidental findings do not require dedicated follow-up imaging. Lower Chest: Lung bases are clear. Organs: Liver demonstrates a barely visible hypoattenuating focus 2.2 cm in the right hepatic lobe series 301, image 38 anteriorly indeterminate lesion. Focal fatty infiltration adjacent to the falciform of typical location for this finding. Gallbladder surgically absent. Pancreas and spleen unremarkable. Adrenals without nodule. Kidneys without suspicious renal lesion and no hydronephrosis. No nephrolithiasis or urolithiasis. GI/Bowel: No focal thickening or disproportion dilatation of bowel. No inflammatory findings. Appendix visualized and unremarkable. Pelvis: Urinary bladder unremarkable and decompressed. Uterus present. Right adnexal 3.2 cm mixed density area with contained fat and areas of calcification series 301, image [id number] could represent dermoid versus teratoma given mixed findings and calcifications without bulky pelvic adenopathy or free fluid. Peritoneum/Retroperit oneum: No bulky retroperitoneal adenopathy. No suspicious peritoneal or mesenteric process Vasculature: Grossly normal caliber of abdominal aorta and vasculature Bones/Soft Tissues: No acute osseous or soft tissue findings. IMPRESSION: 1. Right adnexal 3.2 cm mixed density area with contained fat and areas of calcification could represent dermoid versus teratoma given mixed findings and calcifications without bulky pelvic adenopathy or free fluid. Ultrasound pelvis recommended for further evaluation in the setting of lower abdominal pain. 2. No obstructing uropathy or hydronephrosis. Appendix normal. 3. Indeterminate 2.2 cm hypoattenuating focus in the right hepatic lobe anteriorly. This may represent focal fatty infiltration adjacent to the falciform of typical location for this finding. Recommend follow-up MRI liver protocol For further characterisation if warranted with comparison of LFTs. considerations for underlying adenoma or hemangioma. Interpreted by: Vlad Casarez DO Signed by: Vlad Casarez DO 08/19/23 Final result Normal [facility] Comment on above: Order Comment: Reaso n for exam:->LLQ pain Additional Contrast?->None Decision Support Exception - unselect if not a suspected or confirmed emergency medical condition->Emergency Medical Condition (MA) What reading provider will be dictating this exam?->CRC Comp Metabolic Pr/rfx MGon 0 08-19-2023 Albumin [Mass/Vol] 4.4 g/dL Normal 3.5-5.2 [facility] Comment on above: Performed By: #### L ACTIC, CBCWD, CMPX, LIP #### [address] [place] [address] Vulnerability Researcher: Dayotn Jimenez MD Alkaline Phos 58 U/L Normal 35-104 [facility] Comment on above: Performed By: #### L ACTIC, CBCWD, CMPX, LIP #### [address] [place] [address] Vulnerability Researcher: Dayton Jimenez MD ALT [Catalytic activity/Vol] 29 U/L Normal 0-32 [facility] Comment on above: Performed By: #### L ACTIC, CBCWD, CMPX, LIP #### [address] [place] [address] Vulnerability Researcher: Dayton Jimenez MD Anion gap [Moles/Vol] 10 mmol/L Normal 7-16 [facility] Comment on above: Performed By: #### L ACTIC, CBCWD, CMPX, LIP #### [address] [place] [address] Vulnerability Researcher: Dayton Jimenez MD AST [Catalytic activity/Vol] 23 U/L Normal 0-31 [facility] Comment on above: Performed By: #### L ACTIC, CBCWD, CMPX, LIP #### [address] [place] [address] Vulnerability Researcher: Dayton Jimenez MD Bilirubin [Mass/Vol] 0.4 mg/dL Normal 0.0-1.2 [facility] Comment on above: Performed By: #### L ACTIC, CBCWD, CMPX, LIP #### [address] [place] [address] Vulnerability Researcher: Dayton Jimenez MD Calcium [Mass/Vol] 9.4 mg/dL Normal 8.6-10.2 [facility] Comment on above: Performed By: #### L ACTIC, CBCWD, CMPX, LIP #### [facility] [address] [place] [address]. [place] [address] Vulnerability Researcher: Dayton Jimenez MD Chloride [Moles/Vol] 106 mmol/L Normal 98-107 [facility] Comment on above: Performed By: #### L ACTIC, CBCWD, CMPX, LIP #### [address] [place] [address] Vulnerability Researcher: Dayton Jimenez MD CO2 [Moles/Vol] 26 mmol/L Normal 22-29 [facility] Comment on above: Performed By: #### L ACTIC, CBCWD, CMPX, LIP #### [address] [place] [address] Vulnerability Researcher: Dayton Jimenez MD Creatinine [Mass/Vol] 0.9 mg/dL Normal 0.50-1.00 [facility] Comment on above: Performed By: #### L ACTIC, CBCWD, CMPX, LIP #### [address] [place] [address] Vulnerability Researcher: Dayton Jimenez MD GFR/1.73 sq M.predicted among non-blacks MDRD (S/P/Bld) [Vol rate/Area] mL/min/{1.73_m2} Normal >60 [facility] Comment on above: Result Comment: These results are not intended for use in patients <18 years of age. eGFR results are calculated without a race factor using the 2020 CKD-EPI equation. Careful clinical correlation is recommended, particularly when comparing to results calculated using previous equations. The CKD-EPI equation is less accurate in patients with extremes of muscle mass, extra-renal metabolism of creatine, excessive creatine ingestion, or following therapy that affects renal tubular secretion. Performed By: #### L ACTIC, CBCWD, CMPX, LIP #### [address] [place] [address] Vulnerability Researcher: Dayton Jimenez MD Glucose [Mass/Vol] 103 mg/dL High 74-99 [facility] Comment on above: Performed By: #### L ACTIC, CBCWD, CMPX, LIP #### [address] [address] Vulnerability Researcher: Dayton Jimenez MD Potassium [Moles/Vol] 3.6 mmol/L Normal 3.5-5.0 [facility] Comment on above: Performed By: #### L ACTIC, CBCWD, CMPX, LIP #### [address] [place] [address] Vulnerability Researcher: Dayton Jimenez MD Protein [Mass/Vol] 7.5 g/dL Normal 6.4-8.3 [facility] Comment on above: Performed By: #### L ACTIC, CBCWD, CMPX, LIP #### [address] [place] [address] Vulnerability Researcher: Dayton Jimenez MD Sodium [Moles/Vol] 142 mmol/L Normal 132-146 [facility] Comment on above: Performed By: #### L ACTIC, CBCWD, CMPX, LIP #### [address] [place] [address] Vulnerability Researcher: Dayton Jimenez MD Urea nitrogen [Mass/Vol] 7 mg/dL Normal 6-20 [facility] Comment on above: Performed By: #### L ACTIC, CBCWD, CMPX, LIP #### [address] [place] [address] Vulnerability Researcher: Dayton Jimenez MD Lactic Acidon 08-19-2023 Lactate [Moles/Vol] 0.7 mmol/L Normal 0.5-2.2 [facility] Comment on above: Performed By: #### L ACTIC, CBCWD, CMPX, LIP #### [place] [address] [place] [address] Vulnerability Researcher: Dayton Jimenez MD Lipaseon 08-19-2023 Lipase [Catalytic activity/Vol] 25 U/L Normal 13-60 [facility] Comment on above: Performed By: #### L ACTIC, CBCWD, CMPX, LIP #### [address] [place] [address] Vulnerability Researcher: Dayton Jimenez MD Urinalysis, Routineon 2023 Bilirubin, SemiQt,Ur Negative Normal NEG [facility] Comment on above: Performed By: #### U A #### [address] [place] [address] Vulnerability Researcher: Dayton Jimenez MD Blood, Urine Negative Normal NEG [facility] Comment on above: Performed By: #### U A #### [place] [address] [place] [address] Vulnerability Researcher: Dayton Jimenez MD Clarity (U) Clear Normal CLEAR [facility] Comment on above: Performed By: #### U A #### [place] [address] [place] [address] Vulnerability Researcher: Dayton Jimenez MD Color (U) Yellow Normal YEL [facility] Comment on above: Performed By: #### U A #### [place] [address] [place] [address] Vulnerability Researcher: Dayton Jimenez MD Comment Microscopic exam not performed based on chemical results unless requested in Normal [facility] Comment on above: Result Comment: orig inal order. Performed By: #### U A #### [address] [place] [address] Vulnerability Researcher: Dayton Jimenez MD Glucose Ql (U) Negative Normal NEG [facility] Comment on above: Performed By: #### U A #### [address] [place] [address] Vulnerability Researcher: Dayton Jimenez MD Ketones Ql (U) Negative Normal NEG [facility] Comment on above: Performed By: #### U A #### [address] [place] [address] Vulnerability Researcher: Dayton Jimenez MD Leukocyte esterase Test strip Ql (U) Negative Normal NEG [facility] Comment on above: Performed By: #### U A #### [address] [place] [address] Vulnerability Researcher: Dayton Jimenez MD Nitrite,Ur Negative Normal NEG [facility] Comment on above: Performed By: #### U A #### [address] [place] [address] Vulnerability Researcher: Dayton Jimenez MD PH,Ur 6.0 Normal 5.0-9.0 [facility] Comment on above: Performed By: #### U A #### [address] [place] [address] Vulnerability Researcher: Dayton Jimenez MD Protein Ql (U) Negative Normal NEG [facility] Comment on above: Performed By: #### U A #### [address] [place] [address] Vulnerability Researcher: Dayton Jimenez MD Spec. [place],Ur >1.030 High 1.005-1.030 [facility] Comment on above: Performed By: #### U A #### [place] [id number] [place], [place] [id number] Vulnerability Researcher: Dayton Jimenez MD Urobilinogen,Ur 1.0 EU/dL Normal 0.0-1.0 [facility] Comment on above: Performed By: #### U A #### [facility] [address] [place] [address] Vulnerability Researcher: Dayton Jimenez MD OVon 07-21-2023 CNOV Office Visit (UCTR ) CHANA DE LA O ([id number]) 1 F Date Time Provider Department 07/21/23 3:00 PM WILFRID LAURA [facility] During your visit today, we recorded the following information about you: Temperature Pulse Respiration Blood pressure 98.2 degrees 71/minute 16/minute 122/78 Weight 95 kg Wilfrid Laura APRN.[employer] INSERTER 07/21/2023 3:29 PM Signed Subjective HPI Nontoxic-appearing female presents urgent care chief complaint right thumb injury. Patient states closed finger in a car door today. Presents today for evaluation. Swelling and bruising has developed. Denies any other injuries. [id number]. No numbness no tingling. No decrease sensation. No weakness. No breaks in skin. Denies any fever body aches chills productive cough chest pain shortness of breath pleuritic pain hemoptysis nausea vomiting abdominal pain change in bowel or bladder habits. Past medical history prescription medication use and allergies reviewed. Denies chance of . .Patient presents with: Thumb Injury: Right thumb smashed in car door x1 day PAST MEDICAL HISTORY Diagnosis Date ADHD (attention deficit hyperactivity disorder) Anemia Asthma Gastroparesis IBS (irritable bowel syndrome) PCOS (polycystic ovarian syndrome) Placental abruption in third trimester 12/27/2022 Reactive airway disease inhaler use with URIs PAST SURGICAL HISTORY Procedure Laterality Date DANDC SUCTION 08/31/2021 Retained POC after 08/11/21 vaginal delivery REMOVAL GALLBLADDER REMOVE TONSILS/ADENOIDS,12+ Y/O 2018 SALPINGECTOMY Bilateral 03/04/2023 ALLERGIES Seasonal Allergies MEDICATIONS fluticasone (FLONASE) 50 mcg/actuation nasal spray Use 2 Sprays in each nostril once daily. Rinse mouth after use. albuterol HFA (PROVENTIL HFA, VENTOLIN HFA) 90 mcg/actuation inhaler Inhale 2 Puffs as instructed every 4 hours as needed for wheezing/shortness of breath. cetirizine (ZYRTEC) 10 mg tablet Take 1 tablet by mouth once daily. albuterol HFA (PROVENTIL HFA, VENTOLIN HFA) 90 mcg/actuation inhaler Inhale 2 Puffs as instructed every 4 hours as needed for wheezing/shortness of breath. ferrous sulfate 325 mg (65 mg iron) tablet Take by mouth. albuterol HFA (PROAIR HFA) 90 mcg/actuation inhaler Inhale 2 Puffs as instructed every 6 hours as needed. benzonatate (TESSALON PERLE) 100 mg capsule Take 1 capsule by mouth three times a day as needed for cough. (Patient not taking: Reported on 06/15/2023) ondansetron (ZOFRAN) 8 mg tablet Take by mouth three times a day as needed. (Patient not taking: Reported on 05/10/2023) prochlorperazine (COMPAZINE) 10 mg tablet Take 10 mg by mouth once daily. (Patient not taking: Reported on 05/10/2023) vit/iron fum/folic ac ( 1 + 1 ORAL) Take by mouth. (Patient not taking: Reported on 11/15/2022) ondansetron orally disintegrating (ZOFRAN ODT) 4 mg disintegrating tablet TAKE 2 TABLETS BY MOUTH EVERY 8 HOURS NEEDED FOR NAUSEA (Patient not taking: Reported on 05/10/2023) FAMILY HISTORY Problem Relation Age of Onset No Known Problems Mother Diabetes Father No Known Problems Sister Breast Cancer Maternal Grandmother Obstructive Sleep Apnea Maternal Grandfather Diabetes Paternal Grandfather No Known Problems Half-brother No Known Problems Daughter Social History Tobacco Use Smoking status: Former Years: 8 Types: Cigarettes Quit date: 11/08/2022 Years since quittin.6 Passive exposure: Past Smokeless tobacco: Never Tobacco comments: vape Vaping Use Vaping Use: Some days Substances: Nicotine Substance Use Topics Alcohol use: Never Drug use: Not Currently Types: Marijuana BP 122/78 Pulse 71 Temp 36.8 ?C (98.2 ?F) Resp 16 Wt 95 kg (209 lb 7 oz) LMP 05/10/2023 (Approximate) SpO2 98% BMI 34.85 kg/m? Review of Systems Constitutional: Negative for chills, fever and malaise/fatigue. HENT: Negative for congestion, ear discharge, ear pain, sinus pain and sore throat. Eyes: Negative for blurred vision, pain, discharge and redness. Respiratory: Negative for cough, hemoptysis, sputum production, shortness of breath, wheezing and stridor. Cardiovascular: Negative for chest pain. Gastrointestinal: Negative for abdominal pain, diarrhea, nausea and vomiting. Musculoskeletal: Positive for joint pain. Negative for myalgias. Skin: Negative for itching and rash. Neurological: Negative for dizziness and headaches. Objective Physical Exam Constitutional: General: She is not in acute distress. Appearance: She is not toxic-appearing. HENT: Head: Normocephalic. Nose: Nose normal. Eyes: Pupils: Pupils are equal, round, and reactive to light. Cardiovascular: Rate and Rhythm: Normal rate. Pulmonary: Effort: Pulmonary effort is normal. No respiratory distress. Musculoskeletal: Hands: Cervical back: Normal range of motio (more content not included)... Normal [facility] XR DIGIT 3V FRONTAL/LAT/OBL RTon 07-21-2023 XR DIGIT 3V FRONTAL/LAT/OBL RT * * *Final Report* * * DATE OF EXAM: Jul 21 2023 3:11PM WOX [id number] - XR DIGIT 3V FRONTAL/LAT/OBL RT / PROCEDURE REASON: Injury of right thumb, initial encounter * * * * Physician Interpretation * * * * EXAM TITLE: XR DIGIT 3V FRONTAL/LAT/OBL RT EXAM DATE/TIME: 07/21/2023 3:11 PM COMPARISON: X-ray hand on 10/27/2021 CLINICAL INDICATION/HISTORY: Injury TECHNIQUE: PA, lateral and oblique views of the first digit of the right hand are presented. FINDINGS: No acute fractures or subluxations are noted. The joint spaces are well preserved. The mineralization of the bones is normal. There is no significant soft tissue swelling. IMPRESSION: No acute radiographic abnormalities seen in the first digit. Watermelon Inspector: [facility] Transcribe Date/Time: Jul 21 2023 3:12P Dictated by : LORRI MATTSON MD This examination was interpreted and the report reviewed and electronically signed by: LORRI MATTSON MD on Jul 21 2023 3:15PM EST [id number] Normal [facility] XR Finger - right AP and Lat eral and obliqueon 07-21-2023 IMPRESSION: No acute radiographic abnormalities seen in the first digit. Watermelon Inspector: [facility] Transcribe Date/Time: Jul 21 2023 3:12P Dictated by : LORRI MATTSON MD This examination was interpreted and the report reviewed and electronically signed by: LORRI MATTSON MD on Jul 21 2023 3:15PM EST DIVISION OF RADIOLOGY * * *Final Report* * * DATE OF EXAM: Jul 21 2023 3:11PM WOX [id number] - XR DIGIT 3V FRONTAL/LAT/OBL RT / PROCEDURE REASON: Injury of right thumb, initial encounter * * * * Physician Interpretation * * * * EXAM TITLE: XR DIGIT 3V FRONTAL/LAT/OBL RT EXAM DATE/TIME: 07/21/2023 3:11 PM COMPARISON: X-ray hand on 10/27/2021 CLINICAL INDICATION/HISTORY: Injury TECHNIQUE: PA, lateral and oblique views of the first digit of the right hand are presented. FINDINGS: No acute fractures or subluxations are noted. The joint spaces are well preserved. The mineralization of the bones is normal. There is no significant soft tissue swelling. DIVISION OF RADIOLOGY Provider, [facility] - 07/21/2023 * * *Final Report* * * DATE OF EXAM: Jul 21 2023 3:11PM WOX [id number] - XR DIGIT 3V FRONTAL/LAT/OBL RT / PROCEDURE REASON: Injury of right thumb, initial encounter * * * * Physician Interpretation * * * * EXAM TITLE: XR DIGIT 3V FRONTAL/LAT/OBL RT EXAM DATE/TIME: 07/21/2023 3:11 PM COMPARISON: X-ray hand on 10/27/2021 CLINICAL INDICATION/HISTORY: Injury TECHNIQUE: PA, lateral and oblique views of the first digit of the right hand are presented. FINDINGS: No acute fractures or subluxations are noted. The joint spaces are well preserved. The mineralization of the bones is normal. There is no significant soft tissue swelling. IMPRESSION IMPRESSION: No acute radiographic abnormalities seen in the first digit. Watermelon Inspector: [facility] Transcribe Date/Time: Jul 21 2023 3:12P Dictated by : LORRI MATTSON MD This examination was interpreted and the report reviewed and electronically signed by: LORRI MATTSON MD on Jul 21 2023 3:15PM EST [facility] Radiology Study observation (narrative) [facility] XR Finger - right AP and Lat eral and obliqueOrdered By: [facility] Provider on 07-21-2023 [facility] CNOVon 06-15-2023 CNOV Office Visit (WSTR ) CHANA DE LA O ([id number]) 1 F Date Time Provider Department 06/15/23 10:30 AM MARY EUBANKS [facility] During your visit today, we recorded the following information about you: Temperature Pulse Respiration Blood pressure 97.6 degrees 80/minute 21/minute 102/64 Weight 98.3 kg Mary Eubanks PA 06/15/2023 10:37 AM Signed This note was created using [employer]. Subjective Chana De La O is a 22 year old female. HPI 22-year-old female presents for bilateral ear fullness, pressure, cough, wheezing. Patient was seen here about 2 weeks ago and diagnosed with sinobronchitis. She took Augmentin and prednisone. She states that her cough and congestion improved, but she is still feeling pressure and feels like fluid is in her ears. She has not been using anything else for her symptoms. Patient is also reporting an increase in wheezing the past 2 days. She states she has a very mild cough, but more is just having wheezing. She states she has been sneezing a lot, feels like her allergies may be flaring up her asthma. She also ran out of her inhaler, so needs a refill on that. She denies any chest pain or shortness of breath currently. She states when she gets them wheezing attacks, she does have some shortness of breath. No fevers. No congestion. No sore throat. No vomiting or diarrhea. No other complaint. PAST MEDICAL HISTORY Diagnosis Date ADHD (attention deficit hyperactivity disorder) Anemia Asthma Gastroparesis IBS (irritable bowel syndrome) PCOS (polycystic ovarian syndrome) Placental abruption in third trimester 12/27/2022 Reactive airway disease inhaler use with URIs PAST SURGICAL HISTORY Procedure Laterality Date DANDC SUCTION 08/31/2021 Retained POC after 08/11/21 vaginal delivery REMOVAL GALLBLADDER REMOVE TONSILS/ADENOIDS,12+ Y/O 2018 SALPINGECTOMY Bilateral 03/04/2023 ALLERGIES Seasonal Allergies MEDICATIONS albuterol HFA (PROVENTIL HFA, VENTOLIN HFA) 90 mcg/actuation inhaler Inhale 2 Puffs as instructed every 4 hours as needed for wheezing/shortness of breath. ferrous sulfate 325 mg (65 mg iron) tablet Take by mouth. albuterol HFA (PROAIR HFA) 90 mcg/actuation inhaler Inhale 2 Puffs as instructed every 6 hours as needed. fluticasone (FLONASE) 50 mcg/actuation nasal spray Use 2 Sprays in each nostril once daily. Rinse mouth after use. albuterol HFA (PROVENTIL HFA, VENTOLIN HFA) 90 mcg/actuation inhaler Inhale 2 Puffs as instructed every 4 hours as needed for wheezing/shortness of breath. cetirizine (ZYRTEC) 10 mg tablet Take 1 tablet by mouth once daily. predniSONE (DELTASONE) 10 mg tablet Take 4 tabs daily for 3 days, then 2 tabs daily for 3 days, then 1 tab daily for 3 days with food. benzonatate (TESSALON PERLE) 100 mg capsule Take 1 capsule by mouth three times a day as needed for cough. (Patient not taking: Reported on 06/15/2023) ondansetron (ZOFRAN) 8 mg tablet Take by mouth three times a day as needed. (Patient not taking: Reported on 05/10/2023) prochlorperazine (COMPAZINE) 10 mg tablet Take 10 mg by mouth once daily. (Patient not taking: Reported on 05/10/2023) vit/iron fum/folic ac ( 1 + 1 ORAL) Take by mouth. (Patient not taking: Reported on 11/15/2022) ondansetron orally disintegrating (ZOFRAN ODT) 4 mg disintegrating tablet TAKE 2 TABLETS BY MOUTH EVERY 8 HOURS NEEDED FOR NAUSEA (Patient not taking: Reported on 05/10/2023) FAMILY HISTORY Problem Relation Age of Onset No Known Problems Mother Diabetes Father No Known Problems Sister Breast Cancer Maternal Grandmother Obstructive Sleep Apnea Maternal Grandfather Diabetes Paternal Grandfather No Known Problems Half-brother No Known Problems Daughter Social History Tobacco Use Smoking status: Former Years: 8 Types: Cigarettes Quit date: 11/08/2022 Years since quittin.6 Passive exposure: Past Smokeless tobacco: Never Tobacco comments: vape Vaping Use Vaping Use: Some days Substances: Nicotine Substance Use Topics Alcohol use: Never Drug use: Not Currently Types: Marijuana Review of Systems Constitutional: Negative for chills and fever. HENT: Positive for ear pain. Negative for congestion and sore throat. Respiratory: Positive for cough and wheezing. Negative for shortness of breath. Cardiovascular: Negative for chest pain. Gastrointestinal: Negative for diarrhea and vomiting. Objective BP 102/64 Pulse 80 Temp 36.4 ?C (97.6 ?F) Resp 21 Wt 98.3 kg (216 lb 11.4 oz) LMP 05/10/2023 (Approximate) SpO2 98% BMI 36.06 kg/m? Physical Exam Vitals and nursing note reviewed. Constitutional: General: She is not in acute distress. Appearance: Normal appearance. She is not toxic-appearing. HENT: Right Ear: Ear canal normal. A middle ear effusion is present. Left Ear: Ear canal normal. A middle ear effusion i (more content not included)... Normal [facility] CNOVon 06-02-2023 CNOV Office Visit (WSTR ) CHANA DE LA O ([id number]) 1 F Date Time Provider Department 06/02/23 3:15 PM MARY EUBANKS [facility] During your visit today, we recorded the following information about you: Temperature Pulse Respiration Blood pressure 98.5 degrees 82/minute 18/minute 104/70 Weight Last Period 99 kg 05/10/23 Mary Eubanks PA 06/02/2023 3:28 PM Signed This note was created using [employer]. Subjective Chana De La O is a 22 year old female. HPI 22-year-old female presents for cough, congestion for about a month. Patient states that a month ago she started getting nasal congestion. She states she now has sinus pressure and sinus pain as well as headaches. She states that she has a cough that started in the past few weeks. She is occasionally coughing up some phlegm. She does have history of asthma. She has been using her inhaler. States she has had to increase inhaler use slightly. She denies any chest pain or shortness of breath. No sick contacts. No vomiting or diarrhea. She has been using [id number] cough and cold medication with minimal improvement. No other complaint. PAST MEDICAL HISTORY Diagnosis Date ADHD (attention deficit hyperactivity disorder) Anemia Asthma Gastroparesis IBS (irritable bowel syndrome) PCOS (polycystic ovarian syndrome) Placental abruption in third trimester 12/27/2022 Reactive airway disease inhaler use with URIs PAST SURGICAL HISTORY Procedure Laterality Date DANDC SUCTION 08/31/2021 Retained POC after 08/11/21 vaginal delivery REMOVAL GALLBLADDER REMOVE TONSILS/ADENOIDS,12+ Y/O 2018 SALPINGECTOMY Bilateral 03/04/2023 ALLERGIES Seasonal Allergies MEDICATIONS albuterol HFA (PROVENTIL HFA, VENTOLIN HFA) 90 mcg/actuation inhaler Inhale 2 Puffs as instructed every 4 hours as needed for wheezing/shortness of breath. ferrous sulfate 325 mg (65 mg iron) tablet Take by mouth. albuterol HFA (PROAIR HFA) 90 mcg/actuation inhaler Inhale 2 Puffs as instructed every 6 hours as needed. benzonatate (TESSALON PERLE) 100 mg capsule Take 1 capsule by mouth three times a day as needed for cough. predniSONE (DELTASONE) 20 mg tablet Take 2 tablets by mouth once daily for 4 days. Take daily with food. amoxicillin-clavulana te potassium (AUGMENTIN) 875-125 mg per tablet Take 1 tablet by mouth two times a day for 7 days. ondansetron (ZOFRAN) 8 mg tablet Take by mouth three times a day as needed. (Patient not taking: Reported on 05/10/2023) prochlorperazine (COMPAZINE) 10 mg tablet Take 10 mg by mouth once daily. (Patient not taking: Reported on 05/10/2023) vit/iron fum/folic ac ( 1 + 1 ORAL) Take by mouth. (Patient not taking: Reported on 11/15/2022) ondansetron orally disintegrating (ZOFRAN ODT) 4 mg disintegrating tablet TAKE 2 TABLETS BY MOUTH EVERY 8 HOURS NEEDED FOR NAUSEA (Patient not taking: Reported on 05/10/2023) FAMILY HISTORY Problem Relation Age of Onset No Known Problems Mother Diabetes Father No Known Problems Sister Breast Cancer Maternal Grandmother Obstructive Sleep Apnea Maternal Grandfather Diabetes Paternal Grandfather No Known Problems Half-brother No Known Problems Daughter Social History Tobacco Use Smoking status: Former Years: 8 Types: Cigarettes Quit date: 11/08/2022 Years since quittin.5 Passive exposure: Past Smokeless tobacco: Never Tobacco comments: vape Vaping Use Vaping Use: Some days Substances: Nicotine Substance Use Topics Alcohol use: Never Drug use: Not Currently Types: Marijuana Review of Systems Constitutional: Negative for chills and fever. HENT: Positive for congestion, ear pain, sinus pressure and sinus pain. Negative for sore throat. Respiratory: Positive for cough. Negative for shortness of breath. Cardiovascular: Negative for chest pain. Gastrointestinal: Negative for diarrhea and vomiting. Neurological: Positive for headaches. Objective BP 104/70 Pulse 82 Temp 36.9 ?C (98.5 ?F) Resp 18 Wt 99 kg (218 lb 4.1 oz) LMP 05/10/2023 (Approximate) SpO2 98% No BMI 36.32 kg/m? Physical Exam Vitals and nursing note reviewed. Constitutional: General: She is not in acute distress. Appearance: Normal appearance. She is not toxic-appearing. HENT: Right Ear: Ear canal normal. A middle ear effusion is present. Left Ear: Ear canal normal. A middle ear effusion is present. Nose: Mucosal edema and congestion present. Right Sinus: Maxillary sinus tenderness present. Left Sinus: Maxillary sinus tenderness present. Mouth/Throat: Mouth: Mucous membranes are moist. Pharynx: No oropharyngeal exudate or posterior oropharyngeal erythema. Eyes: Conjunctiva/sclera: Conjunctivae normal. Cardiovascular: Rate and Rhythm: Normal rate and regular rhythm. Pulmonary: Effort: Pulmonary effort is normal. Breath so (more content not included)... Normal [facility] CNOVon 05-10-2023 CNOV Office Visit (UCWSTR ) CHANA DE LA O ([id number]) 1 F Date Time Provider Department 05/10/23 4:45 PM SONY HINSON [facility] During your visit today, we recorded the following information about you: Temperature Pulse Respiration Blood pressure 97.9 degrees 86/minute 18/minute 102/72 Weight 97 kg Sony Hinson PA-C 05/10/2023 5:12 PM Signed This note was created using [employer]. Subjective Chana Colleen De La O is a 22 year old female. HPI Presents with a chief complaint of cough, congestion over the past week. She has had a sore throat as well. Her daughter has had URI symptoms as well. No fever. No trouble breathing or wheezing. She does have a history of asthma. No diarrhea. She states she has chronic problems with vomiting, that has not changed recently. Review of Systems Constitutional: Negative. HENT: Positive for congestion, ear pain, rhinorrhea and sore throat. Negative for sinus pressure and sinus pain. Respiratory: Positive for cough. Negative for shortness of breath and wheezing. Cardiovascular: Negative. Gastrointestinal: Negative. Genitourinary: Negative. Musculoskeletal: Negative. All other systems reviewed and are negative. PAST MEDICAL HISTORY Diagnosis Date ADHD (attention deficit hyperactivity disorder) Anemia Asthma Gastroparesis IBS (irritable bowel syndrome) PCOS (polycystic ovarian syndrome) Placental abruption in third trimester 12/27/2022 Reactive airway disease inhaler use with URIs Current Outpatient Medications Medication Sig Dispense Refill albuterol HFA (PROVENTIL HFA, VENTOLIN HFA) 90 mcg/actuation inhaler Inhale 2 Puffs as instructed every 4 hours as needed for wheezing/shortness of breath. 8 g 0 ferrous sulfate 325 mg (65 mg iron) tablet Take by mouth. albuterol HFA (PROAIR HFA) 90 mcg/actuation inhaler Inhale 2 Puffs as instructed every 6 hours as needed. 18 g 0 Brompheniramine-Pseud oeph-DM (BROMFED DM) 2-30-10 mg/5 mL syrup Take 10 mL by mouth four times a day as needed. 200 mL 0 predniSONE (DELTASONE) 10 mg tablet Take 4 tabs daily for 3 days, then 2 tabs daily for 3 days, then 1 tab daily for 3 days with food. (Patient not taking: Reported on 05/10/2023) 21 tablet 0 ondansetron (ZOFRAN) 8 mg tablet Take by mouth three times a day as needed. (Patient not taking: Reported on 05/10/2023) prochlorperazine (COMPAZINE) 10 mg tablet Take 10 mg by mouth once daily. (Patient not taking: Reported on 05/10/2023) vit/iron fum/folic ac ( 1 + 1 ORAL) Take by mouth. (Patient not taking: Reported on 11/15/2022) ondansetron orally disintegrating (ZOFRAN ODT) 4 mg disintegrating tablet TAKE 2 TABLETS BY MOUTH EVERY 8 HOURS NEEDED FOR NAUSEA (Patient not taking: Reported on 05/10/2023) No current facility-administered medications for this visit. PAST SURGICAL HISTORY Procedure Laterality Date DANDC SUCTION 08/31/2021 Retained POC after 08/11/21 vaginal delivery REMOVAL GALLBLADDER REMOVE TONSILS/ADENOIDS,12+ Y/O 2018 SALPINGECTOMY Bilateral 03/04/2023 FAMILY HISTORY Problem Relation Age of Onset No Known Problems Mother Diabetes Father No Known Problems Sister Breast Cancer Maternal Grandmother Obstructive Sleep Apnea Maternal Grandfather Diabetes Paternal Grandfather No Known Problems Half-brother No Known Problems Daughter Social History Tobacco Use Smoking status: Former Years: 8 Types: Cigarettes Quit date: 11/08/2022 Years since quittin.5 Passive exposure: Past Smokeless tobacco: Never Tobacco comments: vape Vaping Use Vaping Use: Some days Substances: Nicotine Substance Use Topics Alcohol use: Never Drug use: Not Currently Types: Marijuana Objective BP 102/72 Pulse 86 Temp 36.6 ?C (97.9 ?F) (Tympanic) Resp 18 Wt 97 kg (213 lb 13.5 oz) LMP 03/23/2022 (Approximate) SpO2 98% BMI 35.59 kg/m? Physical Exam Vitals reviewed. Constitutional: Appearance: Normal appearance. HENT: Head: Normocephalic and atraumatic. Right Ear: Tympanic membrane, ear canal and external ear normal. Left Ear: Tympanic membrane, ear canal and external ear normal. Nose: Congestion present. Mouth/Throat: Mouth: Mucous membranes are moist. Pharynx: Oropharynx is clear. Cardiovascular: Rate and Rhythm: Normal rate and regular rhythm. Heart sounds: Normal heart sounds. Pulmonary: Effort: Pulmonary effort is normal. Breath sounds: Normal breath sounds. Musculoskeletal: Cervical back: Neck supple. Skin: General: Skin is warm and dry. Findings: No rash. Neurological: Mental Status: She is alert. Assessment and Plan ASSESSMENT/PLAN: 1. URI, acute - ICD9: 465.9, ICD10: J06.9 - Discussed viral etiology and rationale for treatment. Bromfed sent for symptoms. - Group A strep molecular testing negative - Symptomatic treatment with prn analgesia - Supportive care with flui (more content not included)... Normal [facility] STREP A MOLECULAR (POC)on Procedural Control Valid [facility] Strep A (POCT) Negative Negative [facility] CNOVon 03-12-2023 CNOV Office Visit (UCWSTR ) CHANA DE LA O ([id number]) 1 F Date Time Provider Department 03/12/23 12:30 PM ANSLEY CHENBETTINA During your visit today, we recorded the following information about you: Temperature Pulse Respiration Blood pressure 97.4 degrees 82/minute 16/minute 104/62 Weight 90.7 kg Ansley Chen APRN.CORE INSERTER 03/12/2023 2:21 PM Signed This note was created using NoteWriter. Subjective Chana De La O is a 22 year old female. 22 year old female with PMH of asthma presents today with acute onset cough for 2 days. Pertinent positives include dyspnea, chest tightness, dry cough, and rhinorrhea with clear nasal drainage. Pertinent negatives include headache, sinus pain, fever, fatigue, GI upset, body aches, chest pain and dizziness/lightheaded ness. Patient currently vapes. She states she has [...] not ill-appearing, toxic-appearing or diaphoretic. HENT: Head: Normoc (more content not included)... Normal [facility] CNPNon 03-07-2023 CNPN Telephone (OBGYWM) CHANA DE LA O ([id number]) 1 F Date Time Provider Department 03/07/23 ANGELINE CARRANZA OBGYWM During your visit today, we recorded the following information about you: Angeline Carranza MD 03/07/2023 1:19 PM Signed Please notify patient that her Pathology was benign from Lap salpingectomy. ANy concerns? No need for post op visit. Muna Correia RN 03/07/2023 1:33 PM Signed Patient notified and voiced understanding. Denies having any concerns. Muna Correia RN Allergies As of Date: 03/07/2023 Noted Allergy Reaction SEASONAL ALLERGIES 11/30/2017 3 - Cough 14 - Other: See Comments 9 - Itching Date Reviewed: 01/26/2023 Reviewed by: Cindy Rick Ma - Fully Assessed Prescriptions as of 03/07/2023 - ondansetron (ZOFRAN) 8 mg tablet Take by mouth three times a day as needed. - prochlorperazine (COMPAZINE) 10 mg tablet Take 10 mg by mouth once daily. - vit/iron fum/folic ac ( 1 + 1 ORAL) Take by mouth. - ondansetron orally disintegrating (ZOFRAN ODT) 4 mg disintegrating tablet TAKE 2 TABLETS BY MOUTH EVERY 8 HOURS NEEDED FOR NAUSEA - ferrous sulfate 325 mg (65 mg iron) tablet Take by mouth. - albuterol HFA (PROAIR HFA) 90 mcg/actuation inhaler Inhale 2 Puffs as instructed every 6 hours as needed. Problem List As Of Date 03/07/2023 Noted Resolved with care elsewhere, antepar*11/15/2022 Gastroparesis [K31.84] 11/15/2022 History of depression [Z86.59] 11/15/2022 Engages in nicotine containing substance vaping*11/15/2022 History of marijuana use [F12.91] 11/15/2022 Nausea and vomiting [R11.2] 06/18/2022 12/28/2022 Rh negative state in antepartum period [O26.899*11/22/2022 Vaginal bleeding [N93.9] 12/23/2022 Mild intermittent asthma [J45.20] 12/23/2022 34 weeks gestation of [Z3A.34] 12/23/2022 02/23/2023 Poor growth affecting management of mothe*12/23/2022 02/23/2023 Depression affecting in third trimest*12/24/2022 12/26/2022 Placental abruption in third trimester [O45.93] 12/27/2022 02/23/2023 Intrauterine growth restriction (IUGR) affectin*06/10/2021 12/28/2022 Attention deficit hyperactivity disorder (ADHD)*12/28/2022 growth restriction [CXF9402] 12/28/2022 12/28/2022 Hyperemesis gravidarum [O21.0] 07/14/2022 12/28/2022 Cannabis use disorder, mild, abuse [F12.10] 07/14/2022 Encounter Status:Closed by MUNA CORREIA on 03/07/23 [facility] HISTORY PHYSICALon HISTORY PHYSICAL HNO ID: [id number] Author: ANGELINE CARRANZA MD Service: ? Author Type: Physician Type: H&P Filed: 02/23/2023 11:03 Note Text: Pre-Op History and Physical HPI: The patient is a 22 year old female presenting for discussion of laparoscopic bilateral salpingectomy. Declines LARC. pre-operative visit. She is scheduled for laparoscopic bilateral salpingectomy, for desires sterilization on 03/04/22. Procedure discussed along with risks, benefits and complications. Other alternatives discussed for management. Consent form signed? Yes. PAST MEDICAL HISTORY Diagnosis Date ADHD (attention deficit hyperactivity disorder) Anemia Asthma Gastroparesis IBS (irritable bowel syndrome) PCOS (polycystic ovarian syndrome) Placental abruption in third trimester 12/27/2022 Reactive airway disease inhaler use with URIs PAST SURGICAL HISTORY Procedure Laterality Date DANDC SUCTION 08/31/2021 Retained POC after 08/11/21 vaginal delivery REMOVAL GALLBLADDER REMOVE TONSILS/ADENOIDS,12+ Y/O 2017 Current Outpatient Medications Medication Sig Dispense Refill ondansetron (ZOFRAN) 8 mg tablet Take by mouth three times a day as needed. prochlorperazine (COMPAZINE) 10 mg tablet Take 10 mg by mouth once daily. vit/iron fum/folic ac ( 1 + 1 ORAL) Take by mouth. (Patient not taking: Reported on 11/15/2022) ondansetron orally disintegrating (ZOFRAN ODT) 4 mg disintegrating tablet TAKE 2 TABLETS BY MOUTH EVERY 8 HOURS NEEDED FOR NAUSEA ferrous sulfate 325 mg (65 mg iron) tablet Take by mouth. albuterol HFA (PROAIR HFA) 90 mcg/actuation inhaler Inhale 2 Puffs as instructed every 6 hours as needed. 18 g 0 No current facility-administered medications for this visit. ALLERGIES: Seasonal Allergies PERSONAL HISTORY: Social History Tobacco Use Smoking status: Former Years: 8 Types: Cigarettes Quit date: 11/08/2022 Years since quittin.2 Passive exposure: Past Smokeless tobacco: Never Tobacco comments: vape Vaping Use Vaping Use: Some days Substances: Nicotine Substance Use Topics Alcohol use: Never Drug use: Not Currently Types: Marijuana FAMILY HISTORY: FAMILY HISTORY Problem Relation Age of Onset No Known Problems Mother Diabetes Father No Known Problems Sister Breast Cancer Maternal Grandmother Obstructive Sleep Apnea Maternal Grandfather Diabetes Paternal Grandfather No Known Problems Half-brother No Known Problems Daughter REVIEW OF SYMPTOMS: Denies Fever PHYSICAL EXAMINATION: VITALS: Blood pressure 110/60, weight 194 lb (88 kg), last menstrual period 03/23/2022, not currently . GENERAL: The patient is well nourished, well hydrated in no acute distress. , The patient is oriented to time, place, and person. NECK: Supple. No lynphadenopathy, normal thyroid, no thyromegaly. LUNGS: Clear to auscultation bilaterally. no wheezes, rhonchi or rales HEART: Regular rate and rhythm, Normal heart sounds, and No murmurs or gallops GENITALIA: Normal external genitalia, Urethral meatus normal, Bladder nontender, normal vagina and normal vaginal tone, normal cervix, normal uterus, size and consistency, normal adnexa without masses or tenderness, and perineum WNL WET PREP: Not indicated IMPRESSION: 22yo desires sterilization PLAN: laparoscopic bilateral salpingectomy Pt has been counseled on risks/benefits and alternatives of surgery including but not limited to anesthesia, bleeding, infection, injury to pelvic structures including bowel, bladder, ureters and vessels. Pt wishes to proceed with surgery at this time. Risk of regret discussed with patient. Pelvic exam reviewed with patient. Pre and post op instructions reviewed I have reviewed and updated past medical and surgical history, medications and allergies Angeline Kulkarni MD Normal [facility] PAP TESTon 02-23-2023 ADEQUACY Satisfactory for interpretation Normal [facility] Comment on above: Order Comment: Speci men Type: FLUID SPECIMENOrdering Facility: [facility] Address: [address] [place] [address] Performed By: #### L [id number] ####[facility] LABCLIA [id number] [place] [address] [place] CASE REPORT Normal [facility] Comment on above: Order Comment: Speci men Type: FLUID SPECIMENOrdering Facility: [facility] Address: [address] [place] [address] Result Comment: Gyne cologic Cytology Report Case: [id number] Authorizing Provider: Angeline Carranza, Collected: 02/23/2023 01:14 PM Ordering Location: OB/Gynecology Received: 02/23/2023 05:34 PM First Screen: Deanastasiia, Damián, CT, ASCP Specimen: Pap Test, ThinPrep, Cervix Performed By: #### L [id number] ####[facility] LABCLIA [id number] [place] [address] [place] CLINICAL HISTORY, CYTOLOGY, PINKED EDGE SEWING MACHINE OPERATOR Routine Exam Normal [facility] Comment on above: Order Comment: Speci men Type: FLUID SPECIMENOrdering Facility: [facility] Address: [address] [place] [address] Performed By: #### L [id number] ####[facility] LABCLIA [id number] [place] [address] [place] CYTOLOGY PAP OTHER INT Predominance of coccobacilli consistent with shift in vaginal jordi Normal [facility] Comment on above: Order Comment: Speci men Type: FLUID SPECIMENOrdering Facility: [facility] Address: [address] [place] [address] Performed By: #### L [id number] ####[facility] LABCLIA [id number] [place] [address] [place] FINAL PERFORMING LAB Normal [facility] Comment on above: Order Comment: Speci men Type: FLUID SPECIMENOrdering Facility: [facility] Address: [address] [place] [address] Result Comment: Tech nical component, pattern drafter screening performed at [facility], [address] [place] [address] [place] [address] CLIA# [id number] Diagnostic interpretation performed at [facility], [address] [place] [address] [place] [address] CLIA# [id number] Global Creative Chairman: Jair Cavazos M.D. Performed By: #### L [id number] ####[facility] LABCLIA [id number] [place] [address] [place] HPV REFLEX HPV if Atypical Normal [facility] Comment on above: Order Comment: Speci men Type: FLUID SPECIMENOrdering Facility: [facility] Address: [address] [place] [address] Performed By: #### L [id number] ####[facility] LABCLIA [id number] [address] [address] [place] INTERPRETATION, CYTOLOGY, PINKED EDGE SEWING MACHINE OPERATOR Normal [facility] Comment on above: Order Comment: Speci men Type: FLUID SPECIMENOrdering Facility: [facility] Address: [address] [place] [address] Result Comment: Nega tive for intraepithelial lesion or malignancy. Performed By: #### L [id number] ####[facility] LABCLIA [id number] [place] [id number] [place] LMP 03/23/2022 Normal [facility] Comment on above: Order Comment: Speci men Type: FLUID SPECIMENOrdering Facility: [facility] Address: [address] [place] [address] Performed By: #### L [id number] ####[facility] LABCLIA [id number] [address] [address] [place] PAP DISCLAIMER COMMENT The Pap Smear is a screening test for cervical cancer. False negative results occur with all screening tests, emphasizing the need for rescreening at recommended intervals, and clinical correlation. Normal [facility] Comment on above: Order Comment: Speci men Type: FLUID SPECIMENOrdering Facility: [facility] Address: [address] [place] [address] Performed By: #### L [id number] ####[facility] LABCLIA [id number] [place] [id number] [place] PAP METHODS ENGINEER COMMENT This specimen has been analyzed by the ThinPrep Imaging System, an automated imaging and review system, which assists the laboratory in evaluating cells on ThinPrep Pap tests. Following automated imaging, selected solis from every slide are reviewed by a pattern drafter. Normal [facility] Comment on above: Order Comment: Speci men Type: FLUID SPECIMENOrdering Facility: [facility] Address: [address] [place], [place] [address] Performed By: #### L [id number] ####[facility] [place] [id number] [id number] [id number] [place] Teodora 02-09-2023 CNPN Telephone (OBGYWM) CHANA DE LA O ([id number]) 1 F Date Time Provider Department 02/09/23 ANGELINE CARRANZA OBGYWM During your visit today, we recorded the following information about you: Trista Brown LPN 02/09/2023 9:47 AM Signed Left message to call office. Patient is scheduled for surgery 03/04/2023 at [facility]. Please ask patient if she can come in for appointment and pre-op appointment on 02/23/2023 at 9:50 am. Patient has an appointment scheduled on 02/28 for a visit but only a 10 min appt. and will need at least 20 min for both Stephanie Boateng RN 02/09/2023 11:43 AM Signed Patient notified. Agreeable to appointment change. Cancelled her visit on 02/28. Stephanie Boateng RN Allergies As of Date: 02/09/2023 Noted Allergy Reaction SEASONAL ALLERGIES 11/30/2017 3 - Cough 14 - Other: See Comments 9 - Itching Date Reviewed: 01/26/2023 Reviewed by: Cindy Rick Ma - Fully Assessed Reason for Visit: Schedule Surgery [1330] Prescriptions as of 03/28/2023 - albuterol HFA (PROVENTIL HFA, VENTOLIN HFA) 90 mcg/actuation inhaler Inhale 2 Puffs as instructed every 4 hours as needed for wheezing/shortness of breath. - predniSONE (DELTASONE) 10 mg tablet Take 4 tabs daily for 3 days, then 2 tabs daily for 3 days, then 1 tab daily for 3 days with food. - ondansetron (ZOFRAN) 8 mg tablet Take by mouth three times a day as needed. - prochlorperazine (COMPAZINE) 10 mg tablet Take 10 mg by mouth once daily. - vit/iron fum/folic ac ( 1 + 1 ORAL) Take by mouth. - ondansetron orally disintegrating (ZOFRAN ODT) 4 mg disintegrating tablet TAKE 2 TABLETS BY MOUTH EVERY 8 HOURS NEEDED FOR NAUSEA - ferrous sulfate 325 mg (65 mg iron) tablet Take by mouth. - albuterol HFA (PROAIR HFA) 90 mcg/actuation inhaler Inhale 2 Puffs as instructed every 6 hours as needed. Problem List As Of Date 02/09/2023 Noted Resolved with care elsewhere, antepar*11/15/2022 Gastroparesis [K31.84] 11/15/2022 History of depression [Z86.59] 11/15/2022 Engages in nicotine containing substance vaping*11/15/2022 History of marijuana use [F12.91] 11/15/2022 Nausea and vomiting [R11.2] 06/18/2022 12/28/2022 Rh negative state in antepartum period [O26.899*11/22/2022 Vaginal bleeding [N93.9] 12/23/2022 Mild intermittent asthma [J45.20] 12/23/2022 34 weeks gestation of [Z3A.34] 12/23/2022 Poor growth affecting management of mothe*12/23/2022 Depression affecting in third trimest*12/24/2022 12/26/2022 Placental abruption in third trimester [O45.93] 12/27/2022 Intrauterine growth restriction (IUGR) affectin*06/10/2021 12/28/2022 Attention deficit hyperactivity disorder (ADHD)*12/28/2022 growth restriction [CWD3693] 12/28/2022 12/28/2022 Hyperemesis gravidarum [O21.0] 07/14/2022 12/28/2022 Cannabis use disorder, mild, abuse [F12.10] 07/14/2022 Encounter Status:Closed by TRISTA BROWN on 03/28/23 Normal [facility] URINE OB DIP B/Oon 3 Glucose Ql (U) Negative Neg mg/dL [facility] Protein.monoclonal (U) [Mass/Vol] Negative Neg mg/dL [facility] URINE OB DIP B/Oon 3 Glucose Ql (U) Negative Neg mg/dL [facility] Protein.monoclonal (U) [Mass/Vol] Negative Neg mg/dL [facility] CNPNon 01-11-2023 CNPN Telephone (OBGYWM) CHANA DE LA O ([id number]) 1 F Date Time Provider Department 01/11/23 MAYITO GRANADOS OBGYWM During your visit today, we recorded the following information about you: Mayito Granados MD 01/11/2023 11:14 AM Signed Please let her know that I discussed [...] scheduled. The next opening after from a [facility] schedule is next Tue. b/c I k now Tuesday and Tuesday are full except for emergencies. MD Claudette Brown Kimberly LPN 01/11/2023 11:19 AM Signed Contacted pt with below message. Pt very angry and stated that she did not feel that this is a good reason for induction. Pt wanting to wait until her appointment on and further discuss at that time. Pt stated all this is the same as her previous and everything was just fine. Mayito Dumont LPN, MD 01/11/2023 12:12 PM Signed noted and that is an option. Thanks. MD Blake Brown As of Date: 01/11/2023 Noted Allergy Reaction SEASONAL ALLERGIES 11/30/2017 3 - Cough 14 - Other: See Comments 9 - Itching Date Reviewed: 01/05/2023 Reviewed by: Danni Reynolds APRN.CNM - Fully Assessed Reason for Visit: Results [95] Prescriptions as of 01/11/2023 - ondansetron (ZOFRAN) 8 mg tablet Take by mouth three times a day as needed. - prochlorperazine (COMPAZINE) 10 mg tablet Take 10 mg by mouth once daily. - vit/iron fum/folic ac ( 1 + 1 ORAL) Take by mouth. - ondansetron orally disintegrating (ZOFRAN ODT) 4 mg disintegrating tablet TAKE 2 TABLETS BY MOUTH EVERY 8 HOURS NEEDED FOR NAUSEA - ferrous sulfate 325 mg (65 mg iron) tablet Take by mouth. - albuterol HFA (PROAIR HFA) 90 mcg/actuation inhaler Inhale 2 Puffs as instructed every 6 hours as needed. Problem List As Of Date 01/11/2023 Noted Resolved with care elsewhere, antepar*11/15/2022 Gastroparesis [K31.84] 11/15/2022 History of depression [Z86.59] 11/15/2022 Engages in nicotine containing substance vaping*11/15/2022 History of marijuana use [F12.91] 11/15/2022 Nausea and vomiting [R11.2] 06/18/2022 12/28/2022 Rh negative state in antepartum period [O26.899*11/22/2022 Vaginal bleeding [N93.9] 12/23/2022 Mild intermittent asthma [J45.20] 12/23/2022 34 weeks gestation of [Z3A.34] 12/23/2022 Poor growth affecting management of mothe*12/23/2022 Depression affecting in third trimest*12/24/2022 12/26/2022 Placental abruption in third trimester [O45.93] 12/27/2022 Intrauterine growth restriction (IUGR) affectin*06/10/2021 12/28/2022 Attention deficit hyperactivity disorder (ADHD)*12/28/2022 growth restriction [NJM0323] 12/28/2022 12/28/2022 Hyperemesis gravidarum [O21.0] 07/14/2022 12/28/2022 Cannabis use disorder, mild, abuse [F12.10] 07/14/2022 Encounter Status:Closed by MAYITO GRANADOS on 01/11/23 Normal [facility] BIOPHYSICAL PROFILE [facility] 01-10-2023 [facility] BIOPHYSICAL PROFILE [facility] 01-05-2023 [facility] URINE OB DIP B/Oon Glucose Ql (U) Negative Neg mg/dL [facility] Protein.monoclonal (U) [Mass/Vol] Negative Neg mg/dL [facility] CBC panel Auto (Bld)on 01-03 Erythrocyte distribution width (RBC) [Ratio] 14.2 % Normal 11.5-15.0 [facility] Comment on above: Order Comment: Speci men Type: BLOOD SPECIMENOrdering Facility: [facility] Address: [address] [place] [address] Performed By: #### 5 8410-2 ####[facility] [id number] [place] [address] [place] Hematocrit (Bld) [Volume fraction] 38.1 % Normal 36.0-46.0 [facility] Comment on above: Order Comment: Speci men Type: BLOOD SPECIMENOrdering Facility: [facility] Address: [address] [place] [address] Performed By: #### 5 8410-2 ####[facility] [id number] [place] [address] [place] Hemoglobin (Bld) [Mass/Vol] 12.5 g/dL Normal 11.5-15.5 [facility] Comment on above: Order Comment: Speci men Type: BLOOD SPECIMENOrdering Facility: [facility] Address: [address] [place] [address] Performed By: #### 5 8410-2 ####[facility] [id number] [place] [address] [place] MCH (RBC) [Entitic mass] 26.2 pg Normal 26.0-34.0 [facility] Comment on above: Order Comment: Speci men Type: BLOOD SPECIMENOrdering Facility: [facility] Address: [address] [place] [address] Performed By: #### 5 8410-2 ####[facility] ERIRLANDA [id number] [place] [address] [place] MCHC (RBC) [Mass/Vol] 32.8 g/dL Normal 30.5-36.0 [facility] Comment on above: Order Comment: Speci men Type: BLOOD SPECIMENOrdering Facility: [facility] Address: [address] [place] [address] Performed By: #### 5 8410-2 ####[facility] ERIRLANDA [id number] [place] [address] [place] MCV (RBC) [Entitic vol] 79.7 fL Low 80.0-100.0 [facility] Comment on above: Order Comment: Speci men Type: BLOOD SPECIMENOrdering Facility: [facility] Address: [address] [place] [address] Performed By: #### 5 8410-2 ####[facility] ERIRLANDA [id number] [place] [address] [place] Nucleated RBC (Bld) [#/Vol] 10*3/uL Normal <0.01 [facility] Comment on above: Order Comment: Speci men Type: BLOOD SPECIMENOrdering Facility: [facility] Address: [address] [place] [address] Performed By: #### 5 8410-2 ####[facility] ERNCLI [id number] [place] [address] [place] Platelet mean volume (Bld) [Entitic vol] 9.8 fL Normal 9.0-12.7 [facility] Comment on above: Order Comment: Speci men Type: BLOOD SPECIMENOrdering Facility: [facility] Address: [address] [place] [address] Performed By: #### 5 8410-2 ####[facility] ERNCLIA [id number] [place] [address] [place] Platelets (Bld) [#/Vol] 334 10*3/uL Normal 150-400 [facility] Comment on above: Order Comment: Speci men Type: BLOOD SPECIMENOrdering Facility: [facility] Address: [address] [place] [address] Performed By: #### 5 8410-2 ####[facility] ERNCLIA [id number] [place] [address] [place] RBC (Bld) [#/Vol] 4.78 10*6/uL Normal 3.90-5.20 [facility] Comment on above: Order Comment: Speci men Type: BLOOD SPECIMENOrdering Facility: [facility] Address: [address] [place] [address] Performed By: #### 5 8410-2 ####[facility] ERNCLIA [id number] [place] [address] [place] WBC (Bld) [#/Vol] 13.74 10*3/uL High 3.70-11.00 [facility] Comment on above: Order Comment: Speci men Type: BLOOD SPECIMENOrdering Facility: [facility] Address: [address] [place] [address] Performed By: #### 5 8410-2 ####[facility] ERNCLIA [id number] [place] [address] [place] URINE OB DIP B/Oon 3 Glucose Ql (U) Negative Neg mg/dL [facility] Protein.monoclonal (U) [Mass/Vol] Negative Neg mg/dL [facility] BIOPHYSICAL PROFILE US WHIon 12-28-2022 [facility] CNDSon 12-27-2022 CNDS HNO ID: [id number] Author: Rudolph Ralph MD Service: Obstetrics Author Type: Physician Type: Discharge Summary Filed: 12/27/2022 1:53 PM Note Text: DISCHARGE SUMMARY OBSTETRICS PATIENT NAME: Chana De La O ADMISSION DATE: 12/23/2022 DISCHARGE DATE: 12/27/2022 Attending Physician: Dr. Ralph Code Status: Not on file Maternal Obstetric Provider: Danni Reynolds Reason for Hospitalization: Principal Problem: Vaginal bleeding (POA: Yes) Active Problems: with care elsewhere, antepartum (POA: Yes) Gastroparesis (POA: Yes) History of depression (POA: Yes) Engages in nicotine containing substance vaping (POA: Yes) History of marijuana use (POA: Yes) Rh negative state in antepartum period (POA: Yes) Mild intermittent asthma (POA: Yes) 34 weeks gestation of (POA: Yes) Poor growth affecting management of mother in third trimester (POA: Yes) affected by growth restriction (POA: Yes) Placental abruption in third trimester (POA: Unknown) IUGR (intrauterine growth restriction) affecting care of mother, third trimester, not applicable or unspecified fetus (POA: Unknown) Resolved Problems: Depression affecting in third trimester, antepartum (POA: Yes) PROCEDURES/SURGERY DURING HOSPITALIZATION (if applicable) Hospital Course: Patient is a 22-year-old -0-0-1 who was admitted at 34 weeks and 1 day for vaginal bleeding. She was a transfer from [place] after she had an episode of a large gush of vaginal bleeding at home which was not provoked. Upon presentation she had a small amount of old blood in vaginal vault. She did not have any continued bleeding while admitted. She received her first dose of betamethasone at the outside hospital and her second dose 24 hours later (12/23-). On the monitor, her FHT was Cat I and reactive and she did not have continued contractions. She also had a growth ultrasound at 34w2d which showed severe growth restriction with EFW 4#1 3%/ AC <1% Dopplers reassuring. She was discharged home on hospital day 5 without any continued bleeding since original episode. She will follow-up with her primary PHYSICAL LABORATORY ASSISTANT and maternal- medicine. She will require twice weekly testing and Dopplers for her growth restriction. . Consulting Teams During Hospitalization: None Patient Condition @ Discharge: Good Discharge Disposition: Home/Self Care General: well-appearing, AANDO Heart: regular rate Lungs: non-labored breathing on room air Abdomen: soft, gravid Extremities: symmetrical, no edema, warmth, or overlying skin changes Information Provided to Patient: Diet Instructions Resume your pre-hospital diet Specific Concerns for Follow-up Post Discharge: Routine care Discharge Medications: Medication List CONTINUE taking these medications albuterol HFA 90 mcg/actuation inhaler Commonly known as: PROAIR HFA Inhale 2 Puffs as instructed every 6 hours as needed. ferrous sulfate 325 mg (65 mg iron) tablet ondansetron 8 mg tablet Commonly known as: ZOFRAN ondansetron orally disintegrating 4 mg disintegrating tablet Commonly known as: ZOFRAN ODT 1 + 1 ORAL prochlorperazine 10 mg tablet Commonly known as: COMPAZINE ALLERGIES Allergen Reactions Seasonal Allergies Cough, Other: See Comments, Itching Future Appointments: Follow Up Appointments Follow-Up Appointment Please follow up tomorrow as scheduled With: MFM When: Tomorrow Patient/Parents to call for appointment?: Scheduled Plan of care discussed with: Provider, RN, Patient. SIGNATURE: Negin Yancey DO DATE: December 27, 2022 TIME: 12:40 PM I reviewed the hospital course and agree. Rudolph Ralph MD [facility] NURSING PROGon 12-27-2022 NURSING PROG HNO ID: [id number] Author: Katherine Mabry RN Service: ? Author Type: Registered Nurse Type: Nursing Progress Note Filed: 12/27/2022 9:53 AM Note Text: DC instructions reviewed. Pt to F/U tomorrow. Pt to return if further bleeding, cramping, s/s infection. [facility] CONSULTon 12-24-2022 CONSULT HNO ID: [id number] Author: Malathi Aleman DO Service: Neonatology Author Type: Physician Type: Consults Filed: 12/24/2022 9:40 AM Note Text: NEONATOLOGY CONSULT SERVICE DATE: 12/24/2022 Admission Date: 12/23/2022 SERVICE TIME: 939 Date of : 2000 Age: [age] year old Sex: female Primary Care Physician: No primary care provider on file. Consulting Proced Tech: Malathi Aleman DO Subjective Consultation for this evaluation was requested by Dr. Mondragon Reason for consultation: bleeding 34 weeks; IUGR Recommendations will be communicated back to the requesting physician by way of shared medical record or letter. Objective MATERNAL HISTORY: Mother is a 22 year old female, , who is at 34w2d with an CHAN of 02/02/2023, by Ultrasound dating method. LMP: Patient's last menstrual period was 03/23/2022 (approximate). Maternal Hospital Problems: ACTIVE PROBLEM LIST With Care Elsewhere, Antepartum Gastroparesis History of Depression Engages in Nicotine Containing Substance Vaping History of Marijuana Use Rh Negative State in Antepartum Period Vaginal Bleeding Mild Intermittent Asthma 34 Weeks Gestation of Poor Growth Affecting Management of Mother in Third Trimester Maternal Meds: No current facility-administered medications on file prior to encounter. Current Outpatient Medications on File Prior to Encounter Medication Sig ondansetron (ZOFRAN) 8 mg tablet Take by mouth three times a day as needed. prochlorperazine (COMPAZINE) 10 mg tablet Take 10 mg by mouth once daily. vit/iron fum/folic ac ( 1 + 1 ORAL) Take by mouth. (Patient not taking: Reported on 11/15/2022) ondansetron orally disintegrating (ZOFRAN ODT) 4 mg disintegrating tablet TAKE 2 TABLETS BY MOUTH EVERY 8 HOURS NEEDED FOR NAUSEA ferrous sulfate 325 mg (65 mg iron) tablet Take by mouth. albuterol HFA (PROAIR HFA) 90 mcg/actuation inhaler Inhale 2 Puffs as instructed every 6 hours as needed. Current Facility-Administered Medications Medication Dose Route Frequency albuterol HFA 90 mcg/actuation 2 Puff (PROVENTIL HFA, VENTOLIN HFA) 2 Puff INHALATION q 6 H PRN acetaminophen 1,000 mg tab(s) (TYLENOL) 1,000 mg ORAL Pre-Op PRN sodium citrate-citric acid 500-334 mg/5 mL 30 mL oral liquid (BICITRA) 30 mL ORAL Pre-Op PRN metoclopramide HCl 10 mg injection (REGLAN) 10 mg INTRAVENOUS Pre-Op PRN tranexamic acid (CYKLOKAPRON) in NaCl 0.7% 1,000 mg 100 mL 1,000 mg INTRAVENOUS Pre-Op PRN NaCl 0.9% iv flush bag 20 mL INTRAVENOUS PRN ceFAZolin iv piggyback 2 g in D5W (iso-osmotic) 100 mL (ANCEF) 2 g INTRAVENOUS Pre-Op PRN azithromycin 500 mg in D5W 250 mL Vial-Bag (ZITHROMAX) 500 mg INTRAVENOUS Pre-Op PRN betamethasone acetate-betamethasone sodium phosphate 12 mg injection (CELESTONE) 12 mg INTRAMUSCULAR ONCE complications: bleeding; IUGR The following was discussed with mother and father GENERAL: Neonatology presence and role at delivery: Yes Possible need for resuscitation: Yes Need for admission to NICU: Yes Discharge criteria: Yes Survival odds/morbidity AND mortality: Yes RESPIRATORY Risk of RDS/breathing problems: Yes Possible need for respiratory support: Yes FEN Mother?s Preference: Breast: No. Benefits of breast milk: Yes Bottle: Yes Need for supplemental nutrition and/or IVFs: Yes Impression/Recommenda tions Assessment: 34 weeks vaginal bleeding and IUGR Plan: family updated in detail at bedside. Discussed discharge criteria in detail. Please keep NICU team updated regarding delivery status. Thank you for consult. Physician [id number] total time, including discussion: 45 minutes, more than 50 % of time devoted to coordination of care and/or counseling. SIGNATURE: Malathi Aleman DO PATIENT NAME: Chana De La O DATE: December 24, 2022 TIME: 9:37 AM Normal [facility] OBSTETRIC ULTRASOUND WHIon 1 02-23-2022 [facility] ANTIBODY ID PATIENTon 2022 ANTIBODY IDENTIFIED Passively acq Anti-D Normal [facility] Comment on above: Order Comment: Speci men Type: BLOOD SPECIMENOrdering Facility: [facility] Address: [address] [place] [address] Performed By: #### T SPN, %BRUNO ####[facility] BLOOD BANKCLIA [id number] [place] [address] [place] CBC panel Auto (Bld)on 12-23 Erythrocyte distribution width (RBC) [Ratio] 14.0 % Normal 11.5-15.0 [facility] Comment on above: Order Comment: Speci men Type: BLOOD SPECIMEN [facility] Address: [address] [place] [address] Performed By: #### 5 8410-2 #### [facility] CLIA [id number] [address] OF [facility] Hematocrit (Bld) [Volume fraction] 34.6 % Low 36.0-46.0 [facility] Comment on above: Order Comment: Speci men Type: BLOOD SPECIMEN [facility] Address: [address] [place] [address] Performed By: #### 5 8410-2 #### [facility] CLIA [id number] [address] OF [facility] Hemoglobin (Bld) [Mass/Vol] 11.5 g/dL Normal 11.5-15.5 [facility] Comment on above: Order Comment: Speci men Type: BLOOD SPECIMEN [facility] Address: [address] [place] [address] Performed By: #### 5 8410-2 #### [facility] CLIA [id number] [address] MCH (RBC) [Entitic mass] 26.1 pg Normal 26.0-34.0 [facility] Comment on above: Order Comment: Speci men Type: BLOOD SPECIMEN [facility] Address: [address] [place] [address] Performed By: #### 5 8410-2 #### [facility] CLIA [id number] [address] OF [place] MCHC (RBC) [Mass/Vol] 33.2 g/dL Normal 30.5-36.0 [facility] Comment on above: Order Comment: Speci men Type: BLOOD SPECIMEN [facility] Address: [address] [place] [address] Performed By: #### 5 8410-2 #### [facility] CLIA [id number] [address] MCV (RBC) [Entitic vol] 78.6 fL Low 80.0-100.0 [facility] Comment on above: Order Comment: Speci men Type: BLOOD SPECIMEN [facility] Address: [address] [place] [address] Performed By: #### 5 8410-2 #### [facility] CLIA [id number] [address] OF [place] Nucleated RBC (Bld) [#/Vol] 10*3/uL Normal <0.01 [facility] Comment on above: Order Comment: Speci men Type: BLOOD SPECIMEN [facility] Address: [address] [place] [address] Performed By: #### 5 8410-2 #### [facility] CLIA [id number] [address] OF [place] Platelet mean volume (Bld) [Entitic vol] 10.8 fL Normal 9.0-12.7 [facility] Comment on above: Order Comment: Speci men Type: BLOOD SPECIMEN [facility] Address: [address] [place] [address] Performed By: #### 5 8410-2 #### [facility] CLIA [id number] [address] Platelets (Bld) [#/Vol] 281 10*3/uL Normal 150-400 [facility] Comment on above: Order Comment: Speci men Type: BLOOD SPECIMEN [facility] Address: [address] [place] [address] Performed By: #### 5 8410-2 #### [facility] CLIA [id number] [address] OF [place] RBC (Bld) [#/Vol] 4.40 10*6/uL Normal 3.90-5.20 [facility] Comment on above: Order Comment: Speci men Type: BLOOD SPECIMEN [facility] Address: [address] [place] [address] Performed By: #### 5 8410-2 #### [facility] CLIA [id number] 1 [place] [address] [place] WBC (Bld) [#/Vol] 14.13 10*3/uL High 3.70-11.00 [facility] Comment on above: Order Comment: Speci men Type: BLOOD SPECIMEN [facility] Address: [place] [address] Performed By: #### 5 8410-2 #### [facility] CLIA [id number] 1 [place] [id number] [facility] Teodora 12-23-2022 CNPN Telephone (OBGYWM) CHANA DE LA O ([id number]) 1 F Date Time Provider Department 12/23/22 CHANI TSE OBGYWM During your visit today, we recorded the following information about you: Geeta Rivera RN 12/23/2022 12:13 PM Signed 34w1d Called in c/o large gush of blood that occurred when she went to stand up just prior to phone call. Soaked through all clothes. No pain or contractions. No other complaints. Good movement this morning. She is going straight to [facility] and both notified. Geeta Rivera RN Allergies As of Date: 12/23/2022 Noted Allergy Reaction SEASONAL ALLERGIES 11/30/2017 3 - Cough 14 - Other: See Comments 9 - Itching Date Reviewed: 12/20/2022 Reviewed by: Svetlana Schaeffer APRN.CORE INSERTER - Fully Assessed Reason for Visit: OB Bleeding [Other] Prescriptions as of 12/23/2022 - ondansetron (ZOFRAN) 8 mg tablet Take by mouth three times a day as needed. - prochlorperazine (COMPAZINE) 10 mg tablet Take 10 mg by mouth once daily. - vit/iron fum/folic ac ( 1 + 1 ORAL) Take by mouth. - ondansetron orally disintegrating (ZOFRAN ODT) 4 mg disintegrating tablet TAKE 2 TABLETS BY MOUTH EVERY 8 HOURS NEEDED FOR NAUSEA - ferrous sulfate 325 mg (65 mg iron) tablet Take by mouth. - albuterol HFA (PROAIR HFA) 90 mcg/actuation inhaler Inhale 2 Puffs as instructed every 6 hours as needed. - albuterol HFA (PROAIR HFA) 90 mcg/actuation inhaler Inhale 2 Puffs as instructed every 4 hours as needed. - albuterol HFA (VENTOLIN HFA) 90 mcg/actuation inhaler Inhale 2 Puffs as instructed every 4 hours as needed for Wheezing/Shortness of Breath. Problem List As Of Date 12/23/2022 Noted Resolved with care elsewhere, antepar*11/15/2022 Gastroparesis [K31.84] 11/15/2022 History of depression [Z86.59] 11/15/2022 Engages in nicotine containing substance vaping*11/15/2022 History of marijuana use [F12.91] 11/15/2022 Nausea and vomiting in [O21.9] 11/15/2022 Rh negative state in antepartum period [O26.899*11/22/2022 Encounter Status:Closed by GEETA RIVERA RN on 12/23/22 Normal [facility] Fibrinogen PPP-mCncon 2022 Fibrinogen Coag (PPP) [Mass/Vol] 516 mg/dL High 200-400 [facility] Comment on above: Order Comment: Speci men Type: BLOOD SPECIMENOrdering Facility: [facility] Address: [address] [place] [address] Performed By: #### 3 255-7, 05157-9, 36692-2 ####[facility] LAB[facility]ATORYCLIA [id number] [place] [address] [place] HISTORY PHYSICALon HISTORY PHYSICAL HNO ID: [id number] Author: Dania Ozuna MD Service: Obstetrics Author Type: Resident Type: HANDP Filed: 12/23/2022 9:16 PM Note Text: Attestation signed by Christian Mondragon DO at 12/24/2022 4:01 PM MFM Attending Note I saw and evaluated the patient. I agree with the resident's findings and plan of care as documented below. Initial plan of care reviewed with on-call MFM. Christian Mondragon DO, MPH 12/24/2022 3:59 PM MATERNAL MEDICINE HISTORY AND PHYSICAL SERVICE DATE: December 23, 2022 SERVICE TIME: 8:03 PM Subjective Patient's stated reason for arrival: Vaginal bleeding. IUGR CHIEF COMPLAINT: Vaginal bleeding HISTORY OF THE PRESENT ILLNESS: The patient is a 22 year old female, , who is at 34w1d with an CHAN of 02/02/2023, by Ultrasound dating method. Patient is admitted for vaginal bleeding and concern for placental abruption. Patient states that at 11 AM this morning she got up off the couch and felt a big gush of blood soaking through her close. She denies any sort of injury or car accident. She was having a regular morning and was getting her daughter dressed for the day. She states that she has not had any vaginal bleeding prior to this in the . She was not having any abdominal pain prior to the gush. Since then the bleeding has slowed and has become darker in color. She does feel some occasional nonpainful contractions since the gush. Good movement. Denies leaking of fluid. No Of note, the patient states that 1 week ago she felt that she had leaking fluid and was seen in the ED. She was ruled out for rupture but found to have low fluid. Per patient, she was sent for formal ultrasound in which the fluid was the lower limit of normal and the baby was measuring small for gestational age. She has not had any leaking of fluid since that day. POST DELIVERY CONTRACEPTION: Discussed post-delivery contraception options. Patient is interested in a tubal sterilization HISTORY REVIEW PAST MEDICAL HISTORY Diagnosis Date [...] recorded Apgar5: Not recorded Living: Not recorded There are no active non-hospital problems to display for this patient. ALLERGIES Allergen Reactions Seasonal Allergies Cough, Other: See Comments, Itching Prior to Admission Medications Prescriptions Last Dose Informant Patient Reported? Taking? albuterol HFA (PROAIR HFA) 90 mcg/actuation inhaler Unknown No No Sig: Inhale 2 Puffs as instructed every 6 hours as needed. ferrous sulfate 325 mg (65 mg iron) tablet Unknown Yes No Sig: Take by mouth. ondansetron (ZOFRAN) 8 mg tablet Unknown Yes No Sig: Take by mouth three times a day as needed. ondansetron orally disintegrating (ZOFRAN ODT) 4 mg disintegrating tablet Unknown Yes No Sig: TAKE 2 TABLETS BY MOUTH EVERY 8 HOURS NEEDED FOR NAUSEA vit/iron fum/folic ac ( 1 + 1 ORAL) Unknown Yes No Sig: Take by mouth. Patient not taking: Reported on 11/15/2022 prochlorperazine (COMPAZINE) 10 mg tablet Unknown Yes No Sig: Take 10 mg by mouth once daily. 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 Normal [facility] PT panel Coag (PPP)on 2022 INR Coag (PPP) [Relative time] 1.0 {INR} Normal 0.9-1.3 [facility] Comment on above: Order Comment: Speci men Type: BLOOD SPECIMENOrdering Facility: [facility] Address: [address] [place] [address] Result Comment: Shamika min K Antagonist (VKA) Therapeutic Range: INR 2 to 3 (Target INR of 2.5) Note: For patients treated with VKA drugs, such as warfarin, the [place] [employer] 2012 Guideline recommends a therapeutic INR range of 2 to 3 (target INR of 2.5). This recommendation includes high-risk patients with antiphospholipid syndrome with previous arterial or venous thromboembolism, current-generation mechanical or bioprosthetic aortic heart valve replacement. Note: Patients with mechanical aortic valve replacement and additional risk factors for thromboembolic events (atrial fibrillation, previous thromboembolism, LV dysfunction, hypercoagulable conditions) or an older generation mechanical AVR (i.e., ball in-Cage) or any mechanical MVR should have a INR therapeutic range of 2.5 to 3.5 (target INR of 3). Rebecca GH, et al. Chest 2012, 141:7S-47S Yaneth COLLADO et al. [facility] 2017, 70: 252-289 Performed By: #### 3 255-7, 90724-3, 46807-5 ####[facility] LABORATORYCLIA [id number] [address] OF [facility] PT Coag (PPP) [Time] 10.7 s Normal 9.7-13.0 [facility] Comment on above: Order Comment: Speci men Type: BLOOD SPECIMENOrdering Facility: [facility] Address: [address] [place] [address] Performed By: #### 3 255-7, 16121-3, 87181-1 ####[facility] LABORATORYCLIA [id number] [address] TYPE + SCREEN PRENATALon ABO A Normal [facility] Comment on above: Order Comment: Speci men Type: BLOOD SPECIMENOrdering Facility: [facility] Address: [address] [place] [address] Performed By: #### T SPN, %BRUNO ####[facility] BLOOD BANKCLIA [id number] [address] HISTORICAL AB SCR STATUS Negative [facility] Comment on above: Order Comment: Speci men Type: BLOOD SPECIMENOrdering Facility: [facility] Address: [address] [place] [address] Performed By: #### T SPN, %BRUNO ####[facility] BLOOD BANKCLIA [id number] [address] Rh Nom (Bld) Negative [facility] Comment on above: Order Comment: Speci men Type: BLOOD SPECIMENOrdering Facility: [facility] Address: [address] [place] [address] Performed By: #### T SPN, %BRUNO ####[facility] BLOOD BANKCLIA [id number] [address] TYPE AND SCREEN EXPIRATION 12/26/2022 23:59 Normal [facility] Comment on above: Order Comment: Speci men Type: BLOOD SPECIMENOrdering Facility: [facility] Address: [address] [place] [address] Performed By: #### T SPN, %BRUNO ####[facility] BLOOD BANKCLIA [id number] [place] [address] [place] aPTT PPPon 12-23-2022 aPTT Coag (PPP) [Time] 29.4 s Normal 23.0-32.4 [facility] Comment on above: Order Comment: Speci men Type: BLOOD SPECIMENOrdering Facility: [facility] Address: [address] [place] [address] Performed By: #### 3 255-7, 79483-5, 90282-7 ####[facility] LABORATORYCLIA [id number] [place] [address] [place] CNPNon 2022 CNPN Telephone (OBGYWM) CHANA DE LA O ([id number]) 1 F Date Time Provider Department 12/21/22 MAYITO GRANADOS OBGYWM During your visit today, we recorded the following information about you: Mayito Granados MD 2022 5:12 PM Signed Patient on LANDD this week for r/o SROM. US done. Final report available today. Let her know that it did show EFW < 3% per the US done there. Based on this we are concerned about growth. I would like her to have weekly BPP and NST for twice weekly testing and repeat US for growth in 2 weeks. Please scan copy of US in her chart. Was in for NST yesterday, so NST or BPP end of this week and BPP and NST next week. Consult MFM, strongly suggest she stop smoking tob and using all other substances that could affect growth and development. Orders in. MD Gilberto Brown Teresa RN 2022 5:44 PM Signed I stayed late to get this patient scheduled. Can you please ask Muna where to add her on Tuesday for MFM. We are totally booked. Thanks Kalynauque, Geeta RN 12/22/2022 8:54 AM Signed Spoke to RR and patient scheduled 8am with MFM 12/28 as that patient that was scheduled no longer needed MFM consult. Chana notified and appointments for next weeks scheduled. Geeta Rivera RN Allergies As of Date: 2022 Noted Allergy Reaction SEASONAL ALLERGIES 11/30/2017 3 - Cough 14 - Other: See Comments 9 - Itching Date Reviewed: 12/20/2022 Reviewed by: Svetlana Schaeffer APRN.[employer] INSERTER - Fully Assessed Primary Visit Diagnosis:Poor growth affecting management of mother in third trimester, single or unspecified fetus [O36.5930] Other Visit Diagnosis:Supervision of other high risk pregnancies, third trimester [O09.893] Order(s):BIOPHYSICAL PROFILE [facility] [1713315] Order #: [id number]: 1 STANDING NON-STRESS TEST [4129402] Order #: [id number] STANDING CONSULT TO MATERNAL MEDI [[id number]] Order #: [id number]: 1 FUTURE Prescriptions as of 12/23/2022 - ondansetron (ZOFRAN) 8 mg tablet Take by mouth three times a day as needed. - prochlorperazine (COMPAZINE) 10 mg tablet Take 10 mg by mouth once daily. - vit/iron fum/folic ac ( 1 + 1 ORAL) Take by mouth. - ondansetron orally disintegrating (ZOFRAN ODT) 4 mg disintegrating tablet TAKE 2 TABLETS BY MOUTH EVERY 8 HOURS NEEDED FOR NAUSEA - ferrous sulfate 325 mg (65 mg iron) tablet Take by mouth. - albuterol HFA (PROAIR HFA) 90 mcg/actuation inhaler Inhale 2 Puffs as instructed every 6 hours as needed. - albuterol HFA (PROAIR HFA) 90 mcg/actuation inhaler Inhale 2 Puffs as instructed every 4 hours as needed. - albuterol HFA (VENTOLIN HFA) 90 mcg/actuation inhaler Inhale 2 Puffs as instructed every 4 hours as needed for Wheezing/Shortness of Breath. Problem List As Of Date 2022 Noted Resolved with care elsewhere, antepar*11/15/2022 Gastroparesis [K31.84] 11/15/2022 History of depression [Z86.59] 11/15/2022 Engages in nicotine containing substance vaping*11/15/2022 History of marijuana use [F12.91] 11/15/2022 Nausea and vomiting in [O21.9] 11/15/2022 Rh negative state in antepartum period [O26.899*11/22/2022 Encounter Status:Closed by GEETA RIVERA RN on 12/22/22 Normal [facility] URINE OB DIP B/Oon 3 Glucose Ql (U) Negative Neg mg/dL [facility] Protein.monoclonal (U) [Mass/Vol] Negative Neg mg/dL [facility] CNPNon 12-08-2022 CNPN Telephone (OBGYWM) CHANA DE LA O ([id number]) 1 F Date Time Provider Department 12/08/22 DANNI REYNOLDS OBERIK During your visit today, we recorded the following information about you: Davidfiliberto Nadia ADDISON 12/08/2022 11:46 AM Signed 32w0d Pt calling and reporting that for the past 3-4 days she has been having cramping her lower abdomen that she is rating at a 5 1/2 on a pain scale. She reports that she has not timed these but is having approx. 4-5 times per hours. Reports that her abdomen becomes hard, with cramping and then becomes slightly softer when cramping subsides. Pt stating that the cramping is lasting between 2-5 min. Reports that she has not felt the baby move yet today. No bleeding, no fluid leakage. Increased pelvic pressure. Pt has had a bowel movement today. Pt stating that she has had adequate fluid intake this am. She is also reports that she has [...] from this. Please advise how to proceed. Danni Humphreys LPN, APRN.CNM 12/08/2022 12:25 PM Signed Patient should proceed to [facility] for evaluation due to decreased movement, cramping and headache. BERNARD Camacho Jennifer RN 12/08/2022 12:43 PM Signed Patient notified. States that her boyfriend has her car and she won't be able to make it until after 3PM. Encouraged patient to find other transportation. Updated [facility]P faxed to [facility]. CP to updated [facility] nursing staff as they called to speak with her. Stephanie Boateng RN Allergies As of Date: 12/08/2022 Noted Allergy Reaction SEASONAL ALLERGIES 11/30/2017 3 - Cough 14 - Other: See Comments 9 - Itching Date Reviewed: 12/06/2022 Reviewed by: Davi Gomez Cma - Fully Assessed Reason for Visit: Patient Question [5987] Prescriptions as of 12/08/2022 - prochlorperazine (COMPAZINE) 10 mg tablet Take 10 mg by mouth once daily. - vit/iron fum/folic ac ( 1 + 1 ORAL) Take by mouth. - ondansetron orally disintegrating (ZOFRAN ODT) 4 mg disintegrating tablet TAKE 2 TABLETS BY MOUTH EVERY 8 HOURS NEEDED FOR NAUSEA - ferrous sulfate 325 mg (65 mg iron) tablet Take by mouth. - albuterol HFA (PROAIR HFA) 90 mcg/actuation inhaler Inhale 2 Puffs as instructed every 6 hours as needed. - albuterol HFA (PROAIR HFA) 90 mcg/actuation inhaler Inhale 2 Puffs as instructed every 4 hours as needed. - albuterol HFA (VENTOLIN HFA) 90 mcg/actuation inhaler Inhale 2 Puffs as instructed every 4 hours as needed for Wheezing/Shortness of Breath. Problem List As Of Date 12/08/2022 Noted Resolved with care elsewhere, antepar*11/15/2022 Gastroparesis [K31.84] 11/15/2022 History of depression [Z86.59] 11/15/2022 Engages in nicotine containing substance vaping*11/15/2022 History of marijuana use [F12.91] 11/15/2022 Nausea and vomiting in [O21.9] 11/15/2022 Rh negative state in antepartum period [O26.899*11/22/2022 Encounter Status:Closed by DANNI REYNOLDS on 12/08/22 Normal [facility] URINE OB DIP B/Oon Glucose Ql (U) Negative Neg mg/dL [facility] Protein.monoclonal (U) [Mass/Vol] Negative Neg mg/dL [facility] Reagin and Treponema pallidu m IgG and IgM [Interp]on 11-22-2022 T. pallidum IgG+IgM IA Ql (S) Non-Reactive Normal Nonreactive [facility] Comment on above: Order Comment: Speci men Type: BLOOD SPECIMENOrdering Facility: [facility] Address: [address] [place] [address] Performed By: #### 7 3752-8 ####[facility] LABIA [id number] [place] [address] [place] Reagin+T pallidum IgG+IgM Se rPl-Impon 11-22-2022 Reagin and Treponema pallidum IgG and IgM [Interp] Cannot exclude recent Treponemal infection if specimen collected within 7-10 days after appearance of suspect lesions or 2-3 weeks after an exposure. Clinical correlation is required. Normal [facility] Comment on above: Order Comment: Speci men Type: BLOOD SPECIMENOrdering Facility: [facility] Address: [address] [place] [address] Performed By: #### 7 3752-8 ####[facility] LABCLIA [id number] [place] [address] [place] TYPE + SCREEN PRENATALon ABO A Normal [facility] Comment on above: Order Comment: Speci men Type: BLOOD SPECIMEN Ordering Facility: [facility] Address: [address] [place] [address] Performed By: #### T SPN #### [facility] CLIA [id number] [address] [place] [address] [place] HISTORICAL AB SCR STATUS Negative Normal [facility] Comment on above: Order Comment: Speci men Type: BLOOD SPECIMEN Ordering Facility: [facility] Address: [address] [place] [address] Performed By: #### T SPN #### [facility] CLIA [id number] [address] [place] [address] [place] Rh Nom (Bld) Negative Normal [facility] Comment on above: Order Comment: Speci men Type: BLOOD SPECIMEN Ordering Facility: [facility] Address: [address] [place] [address] Performed By: #### T SPN #### [facility] CLIA [id number] [address] [place] [address] [place] TYPE AND SCREEN EXPIRATION 11/25/2022 23:59 Normal [facility] Comment on above: Order Comment: Speci men Type: BLOOD SPECIMEN Ordering Facility: [facility] Address: [address] [place] [address] Performed By: #### T SPN #### [facility] CLIA [id number] [address] [place] [address] [place] URINE OB DIP B/Oon Glucose Ql (U) Negative Neg mg/dL [facility] Protein.monoclonal (U) [Mass/Vol] Negative Neg mg/dL [facility] GEST GLUC SCREEN, 1-HR, 50 G M, NON-FASTINGon 10-21-2022 Glucose 1hr Gest 74 [facility] STREP A MOLECULAR (POC)on Procedural Control Valid [facility] Strep A (POCT) Negative Negative [facility] UA DIP, URINE (POC)on 2022 BILIRUBIN UA (POCT) Negative Negative [facility] CLARITY UA (POCT) Clear [facility] COLOR UA (POCT) Yellow [facility] GLUCOSE UA (POCT) Negative Negative mg/dL [facility] HEMOGLOBIN/BLOOD UA (POCT) Negative Negative [facility] KETONE UA (POCT) Negative Negative mg/dL [facility] LEUKOCYTES UA (POCT) Trace Abnormal Negative [facility] NITRITE UA (POCT) Negative Negative [facility] PH UA (POCT) 6.0 4.5 - 8.0 [facility] Protein Ql (U) Negative Negative mg/dL [facility] SPECIFIC GRAVITY UA (POCT) 1.025 1.005 - 1.030 [facility] UROBILINOGEN UA (POCT) 0.2 E.U./dL Normal E.U./ dL [facility] BILIRUBIN DIRECTon 3 Bilirubin.conjugated [Mass/Vol] 0.1 mg/dL Normal <=0.2 [facility] Comment on above: Performed By: #### 2 4323-8, 3040-3, 47382-5, 15091-8 #### [facility] [address] [place] [address] [employer]ian - Sheron HOANG [id number] CBC W Auto Differential pane l (Bld)on 07-11-2022 Basophils (Bld) [#/Vol] 0.04 10*3/uL Normal <=0.70 [facility] Comment on above: Performed By: #### 5 7021-8 #### [facility] [address] [address] [employer] - Sheron HENRYIA [id number] Basophils/100 WBC (Bld) 0.4 % Normal <=2.0 [facility] Comment on above: Performed By: #### 5 7021-8 #### [facility] [address] [place] [address] [employer] - Sheron HENRYIA [id number] Eosinophils (Bld) [#/Vol] 0.10 10*3/uL Normal <=0.70 [facility] Comment on above: Performed By: #### 5 7021-8 #### [facility] [address] [place] [address] [employer] - Sheron HENRYIA [id number] Eosinophils/100 WBC (Bld) 1.1 % Normal <=10.0 [facility] Comment on above: Performed By: #### 5 7021-8 #### [facility] [address] [place] [address] [employer] - Sheron HENRYIA [id number] Erythrocyte distribution width (RBC) [Entitic vol] 43.0 fL Normal 36.4-46.3 [facility] Comment on above: Performed By: #### 5 7021-8 #### [facility] [address] [place] [address] [employer] - Sheron HENRYIA [id number] Hematocrit (Bld) [Volume fraction] 38.1 % Normal 37.0-47.0 [facility] Comment on above: Performed By: #### 5 7021-8 #### [facility] [address] [place] [address] [employer] - Sheron HENRYIA [id number] Hemoglobin (Bld) [Mass/Vol] 13.2 g/dL Normal 12.0-16.0 [facility] Comment on above: Performed By: #### 5 7021-8 #### [facility] [address] [place] [address] [employer] - Sheron HENRYIA [id number] Immature granulocytes (Bld) [#/Vol] 0.04 10*3/uL Normal <=0.10 [facility] Comment on above: Performed By: #### 5 7021-8 #### [facility] [address] [place] [address] [employer] - Sheron HENRYIA [id number] Immature granulocytes/100 WBC (Bld) 0.40 % Normal <=1.50 [facility] Comment on above: Performed By: #### 5 7021-8 #### [facility] [address] [place] [address] [employer] - Sheron HENRYIA [id number] Lymphocytes (Bld) [#/Vol] 1.47 10*3/uL Normal 1.20-3.40 [facility] Comment on above: Performed By: #### 5 7021-8 #### [facility] [address] [place] [address] [employer] - Sheron HENRYIA [id number] Lymphocytes/100 WBC (Bld) 15.9 % Low 20.0-40.0 [facility] Comment on above: Performed By: #### 5 7021-8 #### [address] [place] [address] [employer] - Sheron HENRYIA [id number] MCH (RBC) [Entitic mass] 27.2 pg Normal 27.0-31.0 [facility] Comment on above: Performed By: #### 5 7021-8 #### [address] [place] [address] [employer] C[employer]ian - Sheron HENRYIA [id number] MCHC (RBC) [Mass/Vol] 34.6 g/dL Normal 32.0-36.0 [facility] Comment on above: Performed By: #### 5 7021-8 #### [address] [place] [address] [employer]ian - Sheron HENRYIA [id number] MCV (RBC) [Entitic vol] 78.6 fL Low 80.0-100.0 [facility] Comment on above: Performed By: #### 5 7021-8 #### [address] [place] [address] [employer] - Sheron HENRYIA [id number] Monocytes (Bld) [#/Vol] 0.42 10*3/uL Normal 0.10-0.60 [facility] Comment on above: Performed By: #### 5 7021-8 #### [address] [place] [address] [employer] - Sheron HENRYIA [id number] Monocytes/100 WBC (Bld) 4.5 % Normal <=8.0 [facility] Comment on above: Performed By: #### 5 7021-8 #### [place] [address] [facility]. [place] [address] [employer] - Sheron HENRYIA [id number] Neutrophils (Bld) [#/Vol] 7.18 10*3/uL High 1.40-6.50 [facility] Comment on above: Performed By: #### 5 7021-8 #### [address] [place] [address] [employer]ian - Sheron HENRYIA [id number] Neutrophils/100 WBC (Bld) 77.7 % High 50.0-70.0 [facility] Comment on above: Performed By: #### 5 7021-8 #### [address] [place] [address] [employer]ian - Sheron HENRYIA [id number] Nucleated RBC (Bld) [#/Vol] 0.00 10*3/uL Normal <=0.10 [facility] Comment on above: Performed By: #### 5 7021-8 #### [address] [place] [address] [employer] - Sheron HENRYIA [id number] Platelet mean volume (Bld) [Entitic vol] 11.1 fL Normal 9.0-13.0 [facility] Comment on above: Performed By: #### 5 7021-8 #### [address] [place] [address] [employer] - Sheron Lundy CLIA [id number] Platelets (Bld) [#/Vol] 285 10*3/uL Normal 130-400 [facility] Comment on above: Performed By: #### 5 7021-8 #### [address] [place] [address] [employer] - Sheron HENRYIA [id number] RBC (Bld) [#/Vol] 4.85 10*6/uL Normal 4.00-6.30 [facility] Comment on above: Performed By: #### 5 7021-8 #### [facility] [address] [place] [address] [employer] - Sheron HOANG [id number] WBC (Bld) [#/Vol] 9.25 10*3/uL Normal 4.80-10.80 [facility] Comment on above: Performed By: #### 5 7021-8 #### [facility] [address] [place] [address] [employer] - Sheron HOANG [id number] Comprehensive metabolic 2000 panelon 07-11-2022 Albumin [Mass/Vol] 3.7 g/dL Normal 3.4-5.0 [facility] Comment on above: Performed By: #### 2 4323-8, 3040-3, , 95375-0 #### [facility] [address] [place] [address] [employer] - Sheron HOANG [id number] ALP [Catalytic activity/Vol] 55 U/L Normal 50-136 [facility] Comment on above: Performed By: #### 2 4323-8, 3040-3, , 41149-4 #### [facility] [address] [place] [address] [employer] - Sheron HOANG [id number] ALT [Catalytic activity/Vol] 22 U/L Normal 14-59 [facility] Comment on above: Performed By: #### 2 4323-8, 3040-3, , 86539-5 #### [facility] [address] [place] [address] [employer] - Sheron HOANG [id number] Anion gap [Moles/Vol] 7.0 mmol/L Normal <=15.0 [facility] Comment on above: Performed By: #### 2 4323-8, 3040-3, , 71310-6 #### [facility] [address] [place] [address] [employer] - Sheron HOANG [id number] AST [Catalytic activity/Vol] 9 U/L Low 15-37 [facility] Comment on above: Performed By: #### 2 4323-8, 3040-3, , 46050-7 #### [facility] [address] [place] [address] [employer] - Sheron HENRYIA [id number] Bilirubin [Mass/Vol] 0.4 mg/dL Normal 0.2-1.0 [facility] Comment on above: Performed By: #### 2 4323-8, 3040-3, , 90938-3 #### [facility] [address] [place] [address] [employer] - Sheron HENRYIA [id number] Calcium [Mass/Vol] 9.2 mg/dL Normal 8.5-10.1 [facility] Comment on above: Performed By: #### 2 4323-8, 0-3, , 15290-5 #### [facility] [address] [place] [address] [employer]ian - Sheron HENRYIA [id number] Chloride [Moles/Vol] 108 mmol/L High 98-107 [facility] Comment on above: Performed By: #### 2 4323-8, 0-3, , 84555-1 #### [facility] [address] [place] [address] [employer]ian - Sheron Lundy CLIA [id number] CO2 [Moles/Vol] 22 mmol/L Normal 21-32 [facility] Comment on above: Performed By: #### 2 4323-8, 3040-3, , 31190-5 #### [facility] [address] [place] [address] [employer]ian - Sheron Lundy CLIA [id number] Creatinine [Mass/Vol] 0.58 mg/dL Normal 0.51-0.95 [facility] Comment on above: Performed By: #### 2 4323-8, 3040-3, , #### [facility] [address] [place] [address] [employer]ian - Sheron HOANG [id number] GFR/1.73 sq M.predicted MDRD (S/P/Bld) [Vol rate/Area] mL/min/{1.73_m2} Normal >=59 [facility] Comment on above: Performed By: #### 2 4323-8, 3039-3, , #### [facility] [address] [place] [address] [employer]ian - Sheron HOANG [id number] Glucose [Mass/Vol] 91 mg/dL Normal 74-106 [facility] Comment on above: Performed By: #### 2 432-8, 3039-3, , #### [facility] [address] [place] [address] [employer]ian - Sheron HOANG [id number] HGFR GLOMERULAR FILTRATIO N RATE INTERPRETATION~The eGFR is calculated using the MDRD equation.~This equation has been validated in patients with chronic kidney disease;~however, it underestimates the GFR in healthy patients with GFR's over 60 mL/min.~The equation is not valid in children under the age of 18.~NOTE: Criteria for Chronic Kidney Disease:~ ~1. Kidney damage for at least three months, as defined~by structural or functional abnormalities of the kidney,~with or without decreased glomerular filtration rate, manifested by either:~* Pathological abnormalities or~* Markers of Kidney damage, including abnormalities in~the composition of the blood or urine or abnormalities in imaging tests.~ ~2. GFR <60 mL/min/1.73 m squared for at least three months, with or without kidney damage.~ Normal [facility] Comment on above: Performed By: #### 2 4323-8, 3039-3, , #### [facility] [address] [place] [address] [employer] C[employer]ian - Sheron HOANG [id number] Potassium [Moles/Vol] 3.8 mmol/L Normal 3.5-5.1 [facility] Comment on above: Performed By: #### 2 4323-8, 3040-3, 21676-2, 73694-7 #### [facility] [address] [place] [address] [employer] Cust[employer]ian - Sheron HOANG [id number] Protein [Mass/Vol] 7.8 g/dL Normal 6.4-8.2 [facility] Comment on above: Performed By: #### 2 4323-8, 3040-3, 32558-5, 26063-1 #### [facility] [address] [place] [address] [employer]ian - Sheron HOANG [id number] Sodium [Moles/Vol] 137 mmol/L Normal 136-145 [facility] Comment on above: Performed By: #### 2 4323-8, 3040-3, , 10567-3 #### [facility] [address] [place] [address] [employer] Custodian - Sheron HOANG [id number] Urea nitrogen [Mass/Vol] 4 mg/dL Low 7-17 [facility] Comment on above: Performed By: #### 2 4323-8, 3040-3, , 18245-4 #### [facility] [address] [place] [address] [employer] C[employer]ian - Sheron HOANG [id number] Drugs identified Screen Nom (U)on 07-11-2022 Amphetamines Ql (U) Not detected Normal CUTOFF = 500 [facility] Comment on above: Performed By: #### 1 2286-1 #### [facility] [address] [place] [address] Lead Custodian - Sheron HOANG [id number] Barbiturates Ql (U) Not detected Normal CUTOFF = 200 K [facility] Comment on above: Performed By: #### 1 2286-1 #### [facility] [address] [place] [address] Lead Custodian - Sheron HOANG [id number] Benzodiazepines Ql (U) Not detected Normal CUTOFF = 15 0 [facility] Comment on above: Performed By: #### 1 2286-1 #### [facility] [address] [place] [address] [facility] [id number] Cocaine Ql (U) Not detected Normal CUTOFF = 150 [facility] Comment on above: Performed By: #### 1 2286-1 #### [place] [address] [place] [address] Lead Custodian - [facility] [id number] HDRUG Drugs of abuse screening provides only a preliminary analytical test result. A more specific alternate chemical method must be used in order to obtain a confimed analytical result. Clinical consideration and professional judgment should be applied to any drug of abuse test result, particularly when preliminary positive results are obtained. Normal [facility] Comment on above: Performed By: #### 1 2286-1 #### [place] [address] [place] [address] [facility] [id number] Methadone Ql (U) Not detected Normal CUTOFF = 200 [facility] Comment on above: Performed By: #### 1 2286-1 #### [address] [place] [address] Lead Custodian - [facility] [id number] Opiates Ql (U) Not detected Normal CUTOFF = 300 [facility] Comment on above: Performed By: #### 1 2286-1 #### [place] [address] [place] [address] [facility] [id number] oxyCODONE Ql (U) Not detected Normal CUTOFF = 100 [facility] Comment on above: Performed By: #### 1 2286-1 #### [address] [place] [address] [facility] [id number] Phencyclidine Ql (U) Not detected Normal CUTOFF = 25 [facility] Comment on above: Performed By: #### 1 2286-1 #### [address] [place] [address] Lead Custodian - [facility] [id number] Tetrahydrocannabinol Ql (U) Detected Abnormal CUTOFF = 50 [facility] Comment on above: Performed By: #### 1 2286-1 #### [facility] [address] [place] [address] Lead Custodian - [facility] [id number] LACTATEon 07-11-2022 Lactate [Moles/Vol] 0.9 mmol/L Normal 0.4-2.0 [facility] Comment on above: Performed By: #### 2 524-7 #### [facility] [address] [place] [address] Lead Custodian - [facility] [id number] LIPASEon 07-11-2022 Lipase [Catalytic activity/Vol] 60 U/L Low 73-393 [facility] Comment on above: Performed By: #### 2 4323-8, 3040-3, 52970-9, 25226-1 #### [facility] [address] [place] [address] Lead Custodian - [facility] [id number] MAGNESIUMon 07-11-2022 Magnesium [Mass/Vol] 1.9 mg/dL Normal 1.6-2.6 [facility] Comment on above: Performed By: #### 2 4323-8, 3040-3, 34525-4, 06574-1 #### [facility] [address] [place] [address] Lead Custodian - [facility] [id number] ULTRASOUND 1ST TRIMEST Herlinda 07-11-2022 ULTRASOUND 1ST TRIMESTER EXAM: ULTRASOUND 1ST TRIMESTER HISTORY: Spotting per vagina in COMPARISON: None. TECHNIQUE: First trimester obstetric ultrasound performed FINDINGS: The uterus measures 9.8 x 8.2 x 6.6 cm. Both ovaries are normal in size echotexture and vascularity. Normal right ovarian corpus luteum cyst is seen measuring 1.6 cm. Single live uterine at 10 weeks 4 days by ultrasound criteria. heart tones at 166 bpm IMPRESSION: Single live intrauterine at 10 weeks 4 days by ultrasound criteria. Normal [facility] URINALYSIS with reflex to CU LTUREon 07-11-2022 Bacteria LM.HPF (Urine sed) [#/Area] Negative Normal TRACE [facility] Comment on above: Performed By: #### U AR #### [facility] [address] [place] [address] Lead Custodian - Sheron [facility] [id number] Bilirubin Ql (U) Negative Normal NEGATIVE [facility] Comment on above: Performed By: #### U AR #### [facility] [address] [facility]. [place] [address] [facility] [employer] [id number] Clarity (U) CLEAR Normal CLEAR [facility] Comment on above: Performed By: #### U AR #### [facility] [address] [facility]. [place] [address] Lead [facility] [employer] [id number] Color (U) YELLOW Normal YELLOW [facility] Comment on above: Performed By: #### U AR #### [facility] [address] [place] [address] Lead Custodian - SheronHelen Keller HospitalLundyFuelCell Energy Inc [id number] Glucose Ql (U) Negative Normal NEGATIVE [facility] Comment on above: Performed By: #### U AR #### [facility] [address] [facility]. [place] [address] Lead [facility]ustodian [facility] [employer] [id number] Hemoglobin Ql (U) Negative Normal NEGATIVE [facility] Comment on above: Performed By: #### U AR #### [facility] [address] [address] Lead Custodian - SheronHelen Keller HospitalLundyFuelCell Energy Inc [id number] HMICRO MICROSCOPIC Normal [facility] Comment on above: Performed By: #### U AR #### [facility] [address] [place] [address] Lead Custodian - Sheron [facility] [id number] Hyaline casts (Urine sed) [#/Area] 6-10 Abnormal 0-8 [facility] Comment on above: Performed By: #### U AR #### [facility] [address] [place] [address] Lead Custodian - Sheron HENRYIA [id number] KETONE TRACE Abnormal NEGATIVE [facility] Comment on above: Performed By: #### U AR #### [facility] [address] [place] [address] Lead Custodian - Sheron HOANG [id number] Leukocyte esterase Test strip Ql (U) TRACE Normal TRACE [facility] Comment on above: Performed By: #### U AR #### [facility] [address] [place] [address] Lead Custodian - Sheron HOANG [id number] Nitrite Ql (U) Negative Normal NEGATIVE [facility] Comment on above: Performed By: #### U AR #### [facility] [address] [place] [address] Lead Custodian - Sheron HOANG [id number] pH (U) 7.5 [pH] Normal 5.5-7.5 [facility] Comment on above: Performed By: #### U AR #### [facility] [address] [place] [address] Lead Custodian - Sheron Lundyaidan HOANG [id number] Protein Ql (U) TRACE Abnormal NEGATIVE [facility] Comment on above: Performed By: #### U AR #### [facility] [address] [place] [address] Lead Custodian - Sheron HOANG [id number] RBC LM.HPF (Urine sed) [#/Area] 0-4 Normal 0-4 [facility] Comment on above: Performed By: #### U AR #### [facility] [address] [place] [address] Lead Custodian - Sheron Lundyaidan HOANG [id number] Specific gravity (U) [Rel density] 1.026 Normal 1.010-1.035 [facility] Comment on above: Performed By: #### U AR #### [facility] [address] [place] [address] Lead Custodian - SheronPalisades Medical CenterIA [id number] SQUAMOUS EPITHELIALS 10-15 Abnormal 0-5 [facility] Comment on above: Performed By: #### U AR #### [facility] [address] [facility]. [place] [address] Lead Custodian - Sheron HENRYIA [id number] Urobilinogen Qn (U) 1.0 {Devin'U}/dL Normal <=1.0 [facility] Comment on above: Performed By: #### U AR #### [facility] [address] [place] [address]. [place] [address] Lead Custodian - Sheron HOANG [id number] WBC LM.HPF (Urine sed) [#/Area] 0-5 Normal 0-5 [facility] Comment on above: Performed By: #### U AR #### [address] [place] [address] Lead Custodian - Sheron HOANG [id number] C. trachomatis+N. gonorrhoea e DNA ELMIRA+probe Ql (Unsp spec)on 06-18-2022 C. trachomatis rRNA ELMIRA+probe Ql (Unsp spec) Negative Negative for Chlamydia trachomatis by amplificaton [facility] N. gonorrhoeae rRNA ELMIRA+probe Ql (Unsp spec) Negative Negative for Neisseria gonorrhoeae by amplification [facility] CBC panel Auto (Bld)on 06-18 Hematocrit (Bld) [Volume fraction] 33.0 % Abnormal 36.0 - 46.0 % [facility] Hemoglobin (Bld) [Mass/Vol] 11.4 g/dL Abnormal 11.5 - 15.5 g/dL [facility] Platelets (Bld) [#/Vol] 224 10*3/uL [facility] HEP B SURF AG SCRNon 023 HBV surface Ag Ql (S) Negative [facility] RPR SCREENon 06-18-2022 Reagin Ab RPR Ql (S) Non-Reactive Nonreactive C [facility] RUBELLA IGG ABon 06-18-2022 Rubella IgG, Qual Positive Positive [facility] TYPE + SCREEN (EXTERNAL LAB) on 06-18-2022 ABO/RH(D) (EXTERNAL) Negative [facility] URINE CULTUREon 06-18-2022 Bacteria identified Cx Nom (U) Mixed urogential jordi lss than 10,000 colonies/mL [facility] VARICELLA ZOSTER IGGon 06-18 VZV IgG Qn (S) 151 index Immune >165 [facility] .Urinalysis Microscopic (AO) on 12-25-2021 UA RBC None Seen Normal None Seen [facility] ([place]) Comment on above: Performed By: #### U AMICAO, UA, PREGU #### [facility] [address] [place], [place] [address] UA Squam Epithelial 5-10 Abnormal None Seen [facility] ([place]) Comment on above: Performed By: #### U AMICAO, UA, PREGU #### [facility] [address] [place], [place] [address] UA WBC 0-5 Abnormal None Seen [facility] ([place]) Comment on above: Performed By: #### U AMICAO, UA, PREGU #### [place] [address] [place], [place] [address] CT ABDOMEN/PELVIS W/O CONTRA STon 12-25-2021 CT ABDOMEN/PELVIS W/O CONTRAST ORIGINAL EXAMINATION: CT OF THE ABDOMEN AND PELVIS WITHOUT [id number]/18/2022 10:28 am TECHNIQUE: CT of the abdomen [...] Date: 12/25/2021 11:18:46 AM Ordering Provider: MARICRUZ ZAMUDIO [facility] ([place]) LABORATORYOrdered By: Zion Saba on 12-25-2021 Appearance (U) Clear (12/25/21 9:57 AM) Invalid Interpretation Code Clear AO Auto Urine SS Bilirubin Ql (U) Small *ABN* (12/25/21 9:57 AM) Invalid Interpretation Code Negative AO Auto Urine SS Color (U) Yellow (12/25/21 9:57 AM) Invalid Interpretation Code AO Auto Urine SS Glucose Test strip (U) [Mass/Vol] Negative Invalid Interpretation Code Negativemg/dL AO Auto Urine SS HCG ( test) Ql Negative (12/25/21 9:57 AM) Invalid Interpretation Code AO Manual Urine SS Hemoglobin Auto test strip (U) [Mass/Vol] Negative (12/25/21 9:57 AM) Invalid Interpretation Code Negative AO Auto Urine SS Ketones Ql (U) 15 mg/dL Invalid Interpretation Code Negativemg/dL AO Auto Urine SS test (u) int Not detected Invalid Interpretation Code AO Manual Urine SS UA Leuk Est Trace *ABN* (12/25/21 9:57 AM) Invalid Interpretation Code Negative AO Auto Urine SS UA Nitrite Negative (12/25/21 9:57 AM) Invalid Interpretation Code Negative AO Auto Urine SS UA pH 7.0 (12/25/21 9:57 AM) Invalid Interpretation Code 5.0 - 8.0 AO Auto Urine SS UA Protein 30 mg/dL Invalid Interpretation Code Negativemg/dL AO Auto Urine SS UA RBC None Seen /HPF Invalid Interpretation Code None Seen/HPF AO Auto Urine SS UA Spec Grav >=1.030 *ABN* (12/25/21 9:57 AM) Invalid Interpretation Code 1.015-1.025 AO Auto Urine SS UA Specimen Type Clean Catch (12/25/21 9:57 AM) Invalid Interpretation Code AO Auto Urine SS UA Squam Epithelial 5-10 /HPF Invalid Interpretation Code None Seen/HPF AO Auto Urine SS UA Urobilinogen 0.2 E.U./dL Invalid Interpretation Code 0.2-1.0E.U./dL AO Auto Urine SS WBC LM.HPF (Urine sed) [#/Area] 0-5 /HPF Invalid Interpretation Code None Seen/HPF AO Auto Urine SS PREGUon 12-25-2021 HCG ( test) Ql (U) Negative Normal [facility] ([place]) Comment on above: Performed By: #### U AMICAO, UA, PREGU #### [address] [address] test (u) int Not detected Invalid Interpretation Code [facility] ([place]) Comment on above: Performed By: #### U AMICAO, UA, PREGU #### [address] [address] UAon 12-25-2021 Color (U) Yellow Normal [facility] ([place]) Comment on above: Performed By: #### U AMICAO, UA, PREGU #### [address] [address] Glucose (U) [Mass/Vol] Negative Normal Negative [facility] ([place]) Comment on above: Performed By: #### U AMICAO, UA, PREGU #### [address] [address] Ketones Ql (U) 15 mg/dL Abnormal Negative [facility] ([place]) Comment on above: Performed By: #### U AMICAO, UA, PREGU #### [place] [address] UA Appear Clear Normal Clear [facility] ([place]) Comment on above: Performed By: #### U AMICAO, UA, PREGU #### [place] [address] UA Bili Small Abnormal Negative [facility] ([place]) Comment on above: Performed By: #### U AMICAO, UA, PREGU #### [address] [address] UA Blood Negative Normal Negative [facility] ([place]) Comment on above: Performed By: #### U AMICAO, UA, PREGU #### [place] [address] UA Leuk Est Trace Abnormal Negative [facility] ([place]) Comment on above: Performed By: #### U AMICAO, UA, PREGU #### [place] [address] UA Nitrite Negative Normal Negative [facility] ([place]) Comment on above: Performed By: #### U AMICAO, UA, PREGU #### [place] [id number] UA pH 7.0 Normal 5.0 - 8.0 [facility] ([place]) Comment on above: Performed By: #### U AMICAO, UA, PREGU #### [place] [address] UA Protein 30 mg/dL Normal Negative [facility] ([place]) Comment on above: Performed By: #### U AMICAO, UA, PREGU #### [place] [address] UA Spec Grav >=1.030 Abnormal 1.015-1.025 [facility] ([place]) Comment on above: Performed By: #### U AMICAO, UA, PREGU #### [address] [place] [address] UA Specimen Type Clean Catch Normal [facility] ([place]) Comment on above: Performed By: #### U YOHANA LOPEZ, PREGU #### [address] [place], [place] [address] UA Urobilinogen 0.2 E.U./dL Normal 0.2-1.0 [facility] ([place]) Comment on above: Performed By: #### U YOHANA LOPEZ, PREGU #### [address] [place] [place], [place] [address] STREP A MOLECULAR (POC)on Procedural Control Valid [facility] Strep A (POCT) Negative Negative [facility] XR HAND GENERAL 3V PA/LAT/OB L RIGHTon 10-27-2021 [facility] XR Hand - right PA and Later al and Obliqueon 10-27-2021 IMPRESSION: No acute osseous abnormality identified. Watermelon Inspector: KOLBY Transcribe Date/Time: Oct 27 2021 6:42P Dictated by : KERRY GIBSON MD This examination was interpreted and the report reviewed and electronically signed by: KERRY GIBSON MD on Oct 27 2021 6:44PM [facility] DIVISION OF RADIOLOGY * * *Final Report* * * DATE OF EXAM: Oct 27 2021 6:30PM WOX [id number] - XR HAND 3V PA/LAT/OBL RT / PROCEDURE REASON: Pain of right hand * * * * Physician Interpretation * * * * Right hand radiographs HISTORY: 20 years old Clinical information: Pain of right hand Punched a wall several times over the last 4 days. Pain at the MCP joints of the ring and small finger of the right hand. Pt unable to completely straighten her fingers due to pain. TECHNIQUE: Images: XR HAND 3V PA/LAT/OBL RT Comparison: None. RESULT: Findings: Joint spaces are maintained. Madelung deformity of the distal radius. No fracture or dislocation identified. No soft tissue abnormality identified. DIVISION OF RADIOLOGY [facility] 10/27/2021 * * *Final Report* * * DATE OF EXAM: Oct 27 2021 6:30PM WOX 5346 - XR HAND 3V PA/LAT/OBL RT / PROCEDURE REASON: Pain of right hand * * * * Physician Interpretation * * * * Right hand radiographs HISTORY: 20 years old Clinical information: Pain of right hand Punched a wall several times over the last 4 days. Pain at the MCP joints of the ring and small finger of the right hand. Pt unable to completely straighten her fingers due to pain. TECHNIQUE: Images: XR HAND 3V PA/LAT/OBL RT Comparison: None. RESULT: Findings: Joint spaces are maintained. Madelung deformity of the distal radius. No fracture or dislocation identified. No soft tissue abnormality identified. IMPRESSION IMPRESSION: No acute osseous abnormality identified. Watermelon Inspector: PSCB Transcribe Date/Time: Oct 27 2021 6:42P Dictated by : KERRY GIBSON MD This examination was interpreted and the report reviewed and electronically signed by: KERRY GIBSON MD on Oct 27 2021 6:44PM EST [facility] Radiology Study observation (narrative) [facility] XR Hand - right PA and Later al and ObliqueOrdered By: [facility]cf Provider on 10-27-2021 [facility] Progress Noteon 06-10-2021 Transmission Engineer Authentication Interface Message Text Maternal Medicine Consult Date of Service: 06/10/2021 Referring Provider: Mike Rodriguez Primary Care Provider: Wendy Primary CareMd MD Reason for Consult: Dr. Mike Rodriguez requests that Chana be evaluated due to FGR and possible ambiguous genitalia. Chana is a 20 y.o. at 31w6d gestation who presents for evaluation of FGR and possible ambiguous genitalia. Chana denies nausea, vomiting, visual disturbance, headaches, epigastric pain, abdominal pain, cramping, regular contractions, leakage of fluid, and/or vaginal bleeding. OB History Para Term AB Living 1 0 0 0 0 0 SAB IAB Ectopic Multiple Live Births 0 0 0 0 0 # Outcome Date GA Lbr Pineda/2nd Weight Sex Delivery Anes PTL Lv 1 Current Past Medical History: Diagnosis Date Anxiety Depression Gastrointestinal complaints, nonspecific Uncomplicated asthma Past Surgical History: Procedure Laterality Date TONSILLECTOMY AND ADENOIDECTOMY No Known Allergies Social History Socioeconomic History Marital status: Single Spouse name: None Number of children: None Years of education: None Highest education level: None Tobacco Use Smoking status: Never Smoker Smokeless tobacco: Current User Substance and Sexual Activity Alcohol use: Not Currently Drug use: Yes Types: Marijuana Comment: Last used 06-09-21 Infections Live with someone with or exposed to TB No History of STI's None Rash or viral illness since last menstruation No 2nd STI GBS No 3rd STI Hx of Chicken Pox Yes Vaccinated as a child Other infections none Partner has hx of genital herpes No Genetics Age is > than 35y as of estimated date No Thalassemia No Neural Tube Defect No Congenital Heart Defect No Down Syndrome No Leonardo-Sachs No Lorena Disease No Sickle Cell Disease or Trait No Hemophilia, Thrombophilia No Muscular Dystrophy No Cystic Fibrosis No Homestead's Chorea No Intellectual Disability/Autism No Metabolic Disorder No Recurrent Loss, or a Stillbirth No Inherited Genetic or Chromosomal Disorder No Illicit; Rec.drugs; Alcohol since last menses No Family History Problem Relation Age of Onset Diabetes Mellitus II Paternal Grandfather Outpatient Encounter Medications as of 06/10/2021 Medication Sig Dispense Refill ondansetron (ZOFRAN) 4 MG tablet No facility-administered encounter medications on file as of 06/10/2021. Review of Systems Constitutional: Negative. HENT: Negative. Eyes: Negative. Respiratory: Negative. Cardiovascular: Negative. Gastrointestinal: Negative. Genitourinary: Negative. Musculoskeletal: Negative. Skin: Negative. Neurological: Negative. Endo/Heme/Allergies: Negative. Psychiatric/Behaviora l: Negative. PHYSICAL EXAM: BP 99/67 Ht 165.1 cm Wt 87.1 kg (192 lb) LMP 10/31/2020 (Approximate) BMI 31.95 kg/m Constitutional: General: She is active. HENT: Head: Atraumatic. Eyes: Extraocular Movements: EOM normal. Conjunctiva/sclera: Conjunctivae normal. Pulmonary: Effort: Pulmonary effort is normal. Abdominal: Comments: gravid uterus Musculoskeletal: Normal range of motion. Neurological: Mental Status: She is alert. X 3. Laboratory Test Results: No visits with results within 1 Year(s) from this visit. Latest known visit with results is: No results found for any previous visit. Ultrasound Results: - Please see Ultrasound test for full details. Assessment/Plan: Chana De La O is a 20 y.o. at 31w6d with: Active Non-Hospital Problems Diagnosis Date Noted Intrauterine growth restriction (IUGR) affecting care of mother, third trimester, single gestation 06/10/2021 Discussion regarding growth restriction: growth restriction (FGR) [...] Normal appearing posterior placenta. 6. Visualized anatomy a (more content not included)... Normal [facility] Lab Reporton 12-26-2017 [facility] Lab Report SURGICAL PATHOLOGY REPORT Patient Name: CHANA DE LA O [facility]. Rec. # : [id number] : 2000 Specimen # : [id number] Date Taken: 12/26/2017 Date Reported: 12/27/2017 Specimen(s) Received Tonsils Diagnosis TONSILS (TONSILLECTOMY AND ADENOIDECTOMY): - FOLLICULAR LYMPHOID HYPERPLASIA, REACTIVE Electronically Signed Out By Cordell Marrero MD eea/12/27/2017 Cordell Marrero MD Clinical History This is a 17-year-old female with tonsillar and adenoid hypertrophy; sleep-disordered breathing; chronic tonsillitis. Preoperative diagnosis same. Postoperative diagnosis same. Operation Tonsillectomy and adenoidectomy age 12 or over. Gross Description Received in formalin designated tonsils, are two tonsils measuring 2.8 and 3.2 cm in greatest dimension. Milk [employer] Tank Truck sections are submitted in one cassette. Dolores Balbuena; HT/PathAssist eea/12/26/2017 Microscopic Description Sections show follicular lymphoid hyperplasia with actinomyces. Testing performed at [facility], [facility], [place] [address], , . Normal [facility] Comment on above: Performed By: #### S URG ####Performed at [facility], [address] [place] [address], [place] [address] POCT HCG, Urine Qualitativeo n 12-26-2017 Comment: First morning urine is the specimen of choice for urine test. False negative results can occur when random urine specimens are tested. A serum test is recommended if results do not correlate with the patient's clinical condition. Normal [facility] HCG.beta subunit ( test) Ql (U) Negative Normal NEG [facility] Vital Signs Date Time Vital Sign Value Performing Clinician Facility 11-18-2023 15:16-0400 Body mass index (BMI) [Ratio] 33.09 kg/m2 Sharon Sung APRN.CORE INSERTER Work Phone: [facility] 11-18-2023 15:16-0400 Body temperature 97.9 [degF] Sharon Sung APRN.[employer] INSERTER Work Phone: [facility] 11-18-2023 15:16-0400 Body weight 90.2 kg Sharon Sung APRN.[employer] INSER[employer] Work Phone: [facility] 11-18-2023 15:16-0400 Diastolic blood pressure 85 mm[Hg] Sharon Sung APRN.[employer] INSER[employer] Work Phone: [facility] 11-18-2023 15:16-0400 Heart rate 76 /min Sharon Sung APRN.[employer] INSERTER Work Phone: [facility] 11-18-2023 15:16-0400 Respiratory rate 20 /min Sharon Sung APRN.[employer] INSER[employer] Work Phone: [facility] 11-18-2023 15:16-0400 SaO2% (BldA) [Mass fraction] 99 % Sharon Sung ART PROFESSOR.[employer] INS[employer] Work Phone: [facility] 11-18-2023 15:16-0400 Systolic blood pressure 124 mm[Hg] Sharon Sung ART PROFESSOR.[employer] INSERTER Work Phone: [facility] 08-24-2023 10:49-0400 Body mass index (BMI) [Ratio] 32.45 kg/m2 Ansley Ibrahim ART PROFESSOR.CNM Work Phone: [facility] 08-24-2023 10:49-0400 Body weight 88.45 kg Ansley Ibrahim ART PROFESSOR.CNM Work Phone: [facility] 08-24-2023 10:49-0400 Diastolic blood pressure 72 mm[Hg] Ansley Ibrahim ART PROFESSOR.CNM Work Phone: [facility] 08-24-2023 10:49-0400 Systolic blood pressure 116 mm[Hg] Ansley Ibrahim ART PROFESSOR.CNM Work Phone: [facility] 07-21-2023 14:54-0400 Body mass index (BMI) [Ratio] 34.85 kg/m2 Wilfrid Laura ART PROFESSOR.[employer] INSERTER Work Phone: [facility] 07-21-2023 14:54-0400 Body temperature 98.2 [degF] Wilfrid Laura ART PROFESSOR.[employer] INSERTER Work Phone: [facility] 07-21-2023 14:54-0400 Body weight 95 kg Wilfrid Laura ART PROFESSOR.CORE INSERTER Work Phone: [facility] 07-21-2023 14:54-0400 Diastolic blood pressure 78 mm[Hg] Wilfrid Laura ART PROFESSOR.[employer] INSERTER Work Phone: [facility] 07-21-2023 14:54-0400 Heart rate 71 /min Wilfrid Laura ART PROFESSOR.CORE INSERTER Work Phone: [facility] 07-21-2023 14:54-0400 Respiratory rate 16 /min Wilfrid Laura ART PROFESSOR.[employer] INSERTER Work Phone: [facility] 07-21-2023 14:54-0400 SaO2% (BldA) [Mass fraction] 98 % Wilfrid Keya ART PROFESSOR.CORE INSERTER Work Phone: [facility] 07-21-2023 14:54-0400 Systolic blood pressure 122 mm[Hg] Wilfrid Keya ART PROFESSOR.CORE INSERTER Work Phone: [facility] 06-15-2023 10:26-0400 Body mass index (BMI) [Ratio] 36.06 kg/m2 Krislyn Aberegg PA Work Phone: [facility] 06-15-2023 10:26-0400 Body temperature 97.59 [degF] Krislyn Aberegg PA Work Phone: [facility] 06-15-2023 10:26-0400 Body weight 98.3 kg Krislyn Aberegg PA Work Phone: [facility] 06-15-2023 10:26-0400 Diastolic blood pressure 64 mm[Hg] Krislyn Aberegg PA Work Phone: [facility] 06-15-2023 10:26-0400 Heart rate 80 /min Krislyn Aberegg PA Work Phone: [facility] 06-15-2023 10:26-0400 Respiratory rate 21 /min Krislyn Aberegg PA Work Phone: [facility] 06-15-2023 10:26-0400 SaO2% (BldA) [Mass fraction] 98 % Krislyn Aberegg PA Work Phone: [facility] 06-15-2023 10:26-0400 Systolic blood pressure 102 mm[Hg] Krislyn Aberegg PA Work Phone: [facility] 06-02-2023 15:15-0400 Body mass index (BMI) [Ratio] 36.32 kg/m2 Krislyn Aberegg PA Work Phone: [facility] 06-02-2023 15:15-0400 Body temperature 98.49 [degF] Krislyn Aberegg PA Work Phone: [facility] 06-02-2023 15:15-0400 Body weight 99 kg Krislyn Aberegg PA Work Phone: [facility] 06-02-2023 15:15-0400 Diastolic blood pressure 70 mm[Hg] Krislyn Aberegg PA Work Phone: [facility] 06-02-2023 15:15-0400 Heart rate 82 /min Krislyn Aberegg PA Work Phone: [facility] 06-02-2023 15:15-0400 Respiratory rate 18 /min Krislyn Aberegg PA Work Phone: [facility] 06-02-2023 15:15-0400 SaO2% (BldA) [Mass fraction] 98 % Krislyn Aberegg PA Work Phone: [facility] 06-02-2023 15:15-0400 Systolic blood pressure 104 mm[Hg] Krislyn Aberegg PA Work Phone: [facility] 05-10-2023 16:50-0400 Body temperature 97.9 [degF] Sony Athy PA-C Work Phone: [facility] 05-10-2023 16:50-0400 Body weight 97 kg Sony Athy PA-C Work Phone: [facility] 05-10-2023 16:50-0400 Diastolic blood pressure 72 mm[Hg] Sony Athy PA-C Work Phone: [facility] 05-10-2023 16:50-0400 Heart rate 86 /min Sony Athy PA-C Work Phone: [facility] 05-10-2023 16:50-0400 Respiratory rate 18 /min Sony Athy PA-C Work Phone: [facility] 05-10-2023 16:50-0400 SaO2% (BldA) [Mass fraction] 98 % Sony Athy PA-C Work Phone: [facility] 05-10-2023 16:50-0400 Systolic blood pressure 102 mm[Hg] Sony Hinson PA-C Work Phone: [facility] 01-13-2023 11:01-0500 Body weight 89 kg Stephen Pretty MD Work Phone: [facility] 01-13-2023 11:01-0500 Diastolic blood pressure 69 mm[Hg] Stephen Pretty MD Work Phone: [facility] 01-13-2023 11:01-0500 Systolic blood pressure 110 mm[Hg] Stephen Pretty MD Work Phone: [facility] 01-10-2023 12:57-0500 Diastolic blood pressure 76 mm[Hg] Ob Ultrasound Work Phone: [facility] 01-10-2023 12:57-0500 Systolic blood pressure 124 mm[Hg] Ob Ultrasound Work Phone: [facility] 01-05-2023 14:44-0500 Body weight 88 kg Danni Plotts ART PROFESSOR.CNM Work Phone: [facility] 01-05-2023 14:44-0500 Diastolic blood pressure 62 mm[Hg] Danni Plotts ART PROFESSOR.CNM Work Phone: [facility] 01-05-2023 14:44-0500 Systolic blood pressure 108 mm[Hg] Danni Plotts ART PROFESSOR.CNM Work Phone: [facility] 12-31-2022 15:02-0500 Body weight 86.18 kg Angeline Kulkarni MD Work Phone: [facility] 12-31-2022 15:02-0500 Diastolic blood pressure 66 mm[Hg] Angeline Kulkarni MD Work Phone: [facility] 12-31-2022 15:02-0500 Systolic blood pressure 110 mm[Hg] Angeline Kulkarni MD Work Phone: [facility] 12-28-2022 08:11-0500 Body weight 89 kg Rudolph Ralph MD Work Phone: [facility] 12-28-2022 08:11-0500 Diastolic blood pressure 70 mm[Hg] Rudolph Ralph MD Work Phone: [facility] 12-28-2022 08:11-0500 Systolic blood pressure 110 mm[Hg] Rudolph Ralph MD Work Phone: [facility] 12-20-2022 15:24-0500 Body weight 88.09 kg Svetlana Harussell ART PROFESSOR.CORE INSERTER Work Phone: [facility] 12-20-2022 15:24-0500 Diastolic blood pressure 58 mm[Hg] Svetlana Haury ART PROFESSOR.CORE INSERTER Work Phone: [facility] System 12-20-2022 15:24-0500 Systolic blood pressure 100 mm[Hg] Svetlana Haury ART PROFESSOR.CORE INSERTER Work Phone: [facility] 12-06-2022 16:39-0400 Body weight 86.82 kg Ansley Ibrahim ART PROFESSOR.CNM Work Phone: [facility] 12-06-2022 16:39-0400 Diastolic blood pressure 66 mm[Hg] Ansley Ibrahim ART PROFESSOR.CNM Work Phone: [facility] 12-06-2022 16:39-0400 Systolic blood pressure 110 mm[Hg] Ansley Ibrahim ART PROFESSOR.CNM Work Phone: [facility] 11-22-2022 12:56-0400 Body height 165.1 cm Danni Plotts ART PROFESSOR.CNM Work Phone: [facility] 11-22-2022 12:56-0400 Body weight 85.73 kg Danni Plotlawrence ART PROFESSOR.CNM Work Phone: [facility] 11-22-2022 12:56-0400 Diastolic blood pressure 60 mm[Hg] Danni Plotts ART PROFESSOR.CNM Work Phone: [facility] 11-22-2022 12:56-0400 Systolic blood pressure 104 mm[Hg] Danni Reynolds ART PROFESSOR.CNM Work Phone: [facility] 08-21-2022 10:34-0400 Body temperature 97.9 [degF] Wilfrid [facility] ART PROFESSOR.CORE INSERTER Work Phone: [facility] 08-21-2022 10:34-0400 Body weight 83.73 kg Wilfrid [facility] ART PROFESSOR.CORE INSERTER Work Phone: [facility] 08-21-2022 10:34-0400 Diastolic blood pressure 64 mm[Hg] Wilfrid [facility] ART PROFESSOR.CORE INSERTER Work Phone: [facility] 08-21-2022 10:34-0400 Heart rate 86 /min Wilfrid [facility] ART PROFESSOR.CORE INSERTER Work Phone: [facility] 08-21-2022 10:34-0400 Respiratory rate 21 /min Wilfrid [facility] ART PROFESSOR.CORE INSERTER Work Phone: [facility] 08-21-2022 10:34-0400 SaO2% (BldA) [Mass fraction] 98 % Wilfrid [facility] ART PROFESSOR.CORE INSERTER Work Phone: [facility] 08-21-2022 10:34-0400 Systolic blood pressure 118 mm[Hg] Wilfrid [facility] ART PROFESSOR.CORE INSERTER Work Phone: [facility] 08-19-2022 16:07-0400 Body temperature 97.59 [degF] Lyric Carney ART PROFESSOR.CORE INSERTER Work Phone: [facility] 08-19-2022 16:07-0400 Body weight 85 kg Lyric Whitmanloganf ART PROFESSOR.CORE INSERTER Work Phone: [facility] 08-19-2022 16:07-0400 Diastolic blood pressure 64 mm[Hg] Lyric Whitmanhof ART PROFESSOR.CORE INSERTER Work Phone: [facility] 08-19-2022 16:07-0400 Heart rate 86 /min Lyric Tranf ART PROFESSOR.CORE INSERTER Work Phone: [facility] 08-19-2022 16:07-0400 Respiratory rate 18 /min [facility] ART PROFESSOR.CORE INSERTER Work Phone: [facility] 08-19-2022 16:07-0400 SaO2% (BldA) [Mass fraction] 99 % Lyric Tran ART PROFESSOR.CORE INSERTER Work Phone: [facility] 08-19-2022 16:07-0400 Systolic blood pressure 118 mm[Hg] [facility] ART PROFESSOR.CORE INSERTER Work Phone: [facility] 12-25-2021 11:06-0500 Diastolic Blood Pressure Non-Invasive 65 1 MARICRUZ ZAMUDIO MD [facility] 12-25-2021 11:06-0500 Heart rate 66 /min MARICRUZ ZAMUDIO MD [facility] 12-25-2021 11:06-0500 Respiratory rate 20 /min MARICRUZ ZAMUDIO MD [facility] 12-25-2021 11:06-0500 Systolic Blood Pressure Non-Invasive 130 1 MARICRUZ ZAMUDIO MD [facility] 12-25-2021 09:28-0500 Body height 165.1 cm MARICRUZ ZAMUDIO MD [facility] 12-25-2021 09:28-0500 Body weight 90 kg MARICRUZ ZAMUDIO MD [facility] 12-25-2021 09:28-0500 Diastolic Blood Pressure Non-Invasive 87 1 MARICRUZ ZAMUDIO MD [facility] 12-25-2021 09:28-0500 Heart rate 87 /min MARICRUZ ZAMUDIO MD [facility] 12-25-2021 09:28-0500 Respiratory rate 22 /min MARICRUZ ZAMUDIO MD [facility] 12-25-2021 09:28-0500 Systolic Blood Pressure Non-Invasive 132 1 MARICRUZ ZAMUDIO MD [facility] 12-09-2021 12:22-0400 Body temperature 98.2 [degF] Delmer Augustine ART PROFESSOR.CORE INSERTER Work Phone: [facility] 12-09-2021 12:22-0400 Body weight 91.26 kg Delmer Augustine ART PROFESSOR.CORE INSERTER Work Phone: [facility] 12-09-2021 12:22-0400 Diastolic blood pressure 80 mm[Hg] Delmer Augustine ART PROFESSOR.CORE INSERTER Work Phone: [facility] 12-09-2021 12:22-0400 Heart rate 100 /min Delmer Augustine ART PROFESSOR.CORE INSERTER Work Phone: [facility] 12-09-2021 12:22-0400 Respiratory rate 21 /min Delmer Augustine ART PROFESSOR.CORE INSERTER Work Phone: [facility] 12-09-2021 12:22-0400 SaO2% (BldA) [Mass fraction] 99 % Delmer Augustine ART PROFESSOR.CORE INSERTER Work Phone: [facility] 12-09-2021 12:22-0400 Systolic blood pressure 120 mm[Hg] Delmer Augustine ART PROFESSOR.CORE INSERTER Work Phone: [facility] 10-27-2021 18:13-0400 Body temperature 98.6 [degF] Ansley Chen ART PROFESSOR.CORE INSERTER Work Phone: [facility] 10-27-2021 18:13-0400 Body weight 85.91 kg Ansley Chen ART PROFESSOR.CORE INSERTER Work Phone: [facility] 10-27-2021 18:13-0400 Diastolic blood pressure 78 mm[Hg] Ansley Chen ART PROFESSOR.CORE INSERTER Work Phone: [facility] 10-27-2021 18:13-0400 Heart rate 91 /min Ansley Chen ART PROFESSOR.CORE INSERTER Work Phone: [facility] 10-27-2021 18:13-0400 Respiratory rate 18 /min Ansley Chen ART PROFESSOR.CORE INSERTER Work Phone: [facility] 10-27-2021 18:13-0400 SaO2% (BldA) [Mass fraction] 99 % Ansley Hcen ART PROFESSOR.CORE INSERTER Work Phone: [facility] 10-27-2021 18:13-0400 Systolic blood pressure 120 mm[Hg] Ansley Chen ART PROFESSOR.CORE INSERTER Work Phone: [facility] Encounters Encounter Date Encounter Type Care Provider Facility Start: 11-18-2023 End: 11-18-2023 Patient encounter procedure Sharon Sung ART PROFESSOR.CORE INSERTER Work Phone: [facility] Comment on above: Acute cough (Primary Dx) Start: 11-18-2023 End: 11-18-2023 ambulatory SHARON SUNG Facility:[facility] Start: 11-18-2023 End: 11-18-2023 Subsequent hospital visit by physician Xr [facility] Work Phone: Radiology Comment on above: Acute cough [R05.1] Start: 08-25-2023 End: 08-25-2023 ambulatory ANSLEY IBRAHIM OB/Gynecology Start: 08-25-2023 End: 08-25-2023 Patient encounter procedure Whi Tech 1 [employer] OB/Gynecology Start: 08-24-2023 End: 08-24-2023 ambulatory ANSLEYRYLAND IBRAHIM Facility:[facility] Start: 08-24-2023 End: 08-24-2023 Patient encounter procedure Ansley Ibrahim ART PROFESSOR.CNM Work Phone: OB/Gynecology Comment on above: Pelvic pain in femal e (Primary Dx); Abdominal pain, unspecified abdominal location; Nausea and vomiting, unspecified vomiting type; History of cholecystectomy; Dermoid cyst; PCOS (polycystic ovarian syndrome); Enlarged uterus; Marijuana use, continuous Start: 08-19-2023 Emergency department patient visit PAYALNEETA CONTEH [facility] Start: 08-19-2023 End: 08-19-2023 Emergency department patient visit Physician Wendy Palacios [facility] Start: 07-21-2023 End: 07-21-2023 Subsequent hospital visit by physician Angelina [facility] Work Phone: Radiology Comment on above: Injury of right thum b, initial encounter [S69.91XA] Start: 07-21-2023 End: 07-21-2023 ambulatory WILFRID LAURA Facility:[facility] Start: 07-21-2023 End: 07-21-2023 Office outpatient visit 15 minutes Wilfrid Laura APRN.CNP Work Phone: [facility] Comment on above: Injury of right thum b, initial encounter (Primary Dx) Start: 06-15-2023 End: 06-15-2023 [facility] Facility:[facility] Start: 06-15-2023 End: 06-15-2023 Patient encounter procedure Mary HAINES Work Phone: [facility] Comment on above: Mild intermittent as thma with acute exacerbation (Primary Dx); Eustachian tube dysfunction, bilateral Start: 06-02-2023 End: 06-02-2023 [facility] Facility:[facility] Start: 06-02-2023 End: 06-02-2023 Patient encounter procedure Mary HAINES Work Phone: [facility] Comment on above: Sinobronchitis (Prim shandra Dx) Start: 05-10-2023 End: 05-10-2023 [facility] Facility:[facility] Start: 05-10-2023 End: 05-10-2023 Patient encounter procedure Sony Hinson PA-C Work Phone: [facility] Comment on above: URI, acute (Primary Dx) Start: 03-12-2023 End: 03-12-2023 [facility] Facility:[facility] Start: 02-23-2023 End: 02-23-2023 ambulatory ANGELINE KULKARNI Facility:[facility] Start: 02-09-2023 Telephone encounter Angeline Kulkarni MD Work Phone: OB/Gynecology Comment on above: Schedule Surgery Start: 01-26-2023 End: 01-26-2023 ambulatory ANGELINE KULKARNI Facility:[facility] Start: 01-18-2023 ambulatory Ansley Ibrahim APRN.CNM Work Phone: OB/Gynecology Comment on above: Ob Delivery Note Start: 01-17-2023 End: 01-17-2023 ambulatory MAYITO GRANADOS Facility:[facility] Start: 01-17-2023 End: 01-17-2023 Patient encounter procedure Mayito Granados MD Work Phone: OB/Gynecology Comment on above: 37 weeks gestation o f (Primary Dx); Poor growth affecting management of mother in third trimester, single or unspecified fetus; Supervision of other high risk pregnancies, third trimester Start: 01-13-2023 End: 01-13-2023 Patient encounter procedure Stephen Pretty MD Work Phone: OB/Gynecology Comment on above: 37 weeks gestation o f (Primary Dx); Poor growth affecting management of mother in third trimester, single or unspecified fetus; Supervision of other high risk pregnancies, third trimester Start: 01-13-2023 End: 01-13-2023 ambulatory STEPHEN PRETTY Facility:[facility] Start: 01-11-2023 Telephone encounter Mayito Granados MD Work Phone: OB/Gynecology Comment on above: Results Start: 01-10-2023 End: 01-10-2023 ambulatory MAYITO GRANADOS Facility:[facility] Start: 01-10-2023 End: 01-10-2023 Patient encounter procedure Mayito Granados MD Work Phone: OB/Gynecology Comment on above: Poor growth af fecting management of mother in third trimester, single or unspecified fetus (Primary Dx); 36 weeks gestation of ; Supervision of other high risk pregnancies, third trimester Poor growth af fecting management of mother in third trimester, single or unspecified fetus (Primary Dx); Supervision of other high risk pregnancies, third trimester; 36 weeks gestation of Start: 01-05-2023 End: 01-05-2023 ambulatory MAYITO GRANADOS Facility:[facility] Start: 01-05-2023 End: 01-05-2023 Patient encounter procedure Danni Reynolds ART PROFESSOR.CNM Work Phone: OB/Gynecology Comment on above: 36 weeks gestation o f (Primary Dx); Poor growth affecting management of mother in third trimester, single or unspecified fetus; Supervision of other high risk pregnancies, third trimester; Rh negative state in antepartum period; History of marijuana use Poor growth af fecting management of mother in third trimester, single or unspecified fetus (Primary Dx); Supervision of other high risk pregnancies, third trimester; 36 weeks gestation of Start: 01-03-2023 End: 01-03-2023 ambulatory SVETLANA SCHAEFFER Facility:[facility] Start: 12-31-2022 End: 12-31-2022 Patient encounter procedure Angeline Kulkarni MD Work Phone: OB/Gynecology Comment on above: Poor growth af fecting management of mother in third trimester, single or unspecified fetus (Primary Dx); Supervision of other high risk pregnancies, third trimester; 35 weeks gestation of Start: 12-31-2022 End: 12-31-2022 ambulatory ANGELINE KULKARNI Facility:[facility] Start: 12-28-2022 End: 12-28-2022 ambulatory ANSLEY IBRAHIM Facility:[facility] Start: 12-28-2022 End: 12-28-2022 Patient encounter procedure Ansley Ibrahim ART PROFESSOR.CNM Work Phone: OB/Gynecology Comment on above: with prena tip care elsewhere, antepartum (Primary Dx); Poor growth affecting management of mother in third trimester, single or unspecified fetus Other obesity due to excess calories affecting in third trimester [O99.213, E66.09] (Primary Dx); Poor growth affecting management of mother in third trimester, single or unspecified fetus; Supervision of other high risk pregnancies, third trimester; Placental abruption in third trimester Start: 12-24-2022 End: 12-24-2022 ambulatory SONY ALIDA Facility:[facility] Start: 12-24-2022 End: 12-24-2022 Patient encounter procedure 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 [employer] Work Phone: [facility] Comment on above: Poor growth af fecting management of mother in third trimester, single or unspecified fetus (Primary Dx); Vaginal bleeding in , third trimester; 34 weeks gestation of Start: 12-23-2022 End: 12-27-2022 Evaluation and management of inpatient SONY IRWIN Facility:[facility] Start: 12-23-2022 Telephone encounter Chani orellana MD Work Phone: OB/Gynecology Comment on above: OB Bleeding Start: 12-20-2022 End: 12-20-2022 Patient encounter procedure Svetlana Schaeffer APRN.CORE INSERTER Work Phone: OB/Gynecology Comment on above: 33 weeks gestation o f (Primary Dx); care, subsequent in third trimester; Leakage of amniotic fluid Start: 12-20-2022 End: 12-20-2022 ambulatory SVETLANA SCHAEFFER Facility:[facility] Start: 12-08-2022 Telephone encounter Danni cabrales APRN.CNM Work Phone: OB/Gynecology Comment on above: Patient Question Start: 12-06-2022 End: 12-06-2022 ambulatory ANSLEY IBRAHIM Facility:[facility] Start: 12-06-2022 End: 12-06-2022 Patient encounter procedure Ansley Ibrahim ART PROFESSOR.CNM Work Phone: OB/Gynecology Comment on above: with prena tip care elsewhere, antepartum (Primary Dx); 31 weeks gestation of Start: 11-22-2022 End: 11-22-2022 ambulatory DANNI REYNOLDS Facility:[facility] Start: 11-22-2022 End: 11-22-2022 Patient encounter procedure Danni Reynolds ART PROFESSOR.CNM Work Phone: OB/Gynecology Comment on above: with prena tip care elsewhere, antepartum (Primary Dx); Gastroparesis; History of depression; History of marijuana use; 29 weeks gestation of ; Rh negative state in antepartum period Start: 11-15-2022 End: 11-15-2022 Nursing evaluation of patient and report Nurse Pnob [facility] Work Phone: OB/Gynecology Comment on above: with prena tip care elsewhere, antepartum (Primary Dx); Gastroparesis; History of depression; Engages in nicotine containing substance vaping; History of marijuana use; Nausea and vomiting in Start: 10-22-2022 ambulatory Danni rivera ART PROFESSOR.CNM Work Phone: OB/Gynecology Comment on above: Received Outside Med ical Records Start: 08-21-2022 End: 08-21-2022 Office outpatient visit 15 minutes Wilfrid Laura APRN.CORE INSERTER Work Phone: [facility] Comment on above: Sore throat (Primary Dx); Viral illness Start: 08-19-2022 End: 08-19-2022 Patient encounter procedure Lyric Carney ART PROFESSOR.CORE INSERTER Work Phone: [facility] Comment on above: Abdominal pain, unsp ecified abdominal location (Primary Dx); 16 weeks gestation of ; Burning with urination Start: 07-11-2022 End: 07-11-2022 ambulatory NONE NONE Facility:[facility] Start: 06-15-2022 End: 06-15-2022 Emergency department patient visit JYOTI TAM [facility] Start: 06-02-2022 End: 06-02-2022 Patient encounter procedure Wilfrid Laura ART PROFESSOR.CORE INSERTER Work Phone: [facility] Comment on above: Procedure not keith d out (Primary Dx) Start: 12-25-2021 End: 12-25-2021 Emergency department patient visit MARICRUZ ZAMUDIO MD Facility:[facility] Start: 12-25-2021 End: 12-25-2021 Emergency department patient visit MARICRUZ ZAMUDIO MD [facility] Start: 12-09-2021 End: 12-09-2021 Patient encounter procedure Delmer Bradshaw ART PROFESSOR.CORE INSERTER Work Phone: [facility] Comment on above: Sore throat (Primary Dx); History of asthma Start: 11-08-2021 Refill Nilay hoffman MD Work Phone: [facility] Comment on above: Refill Request Start: 10-27-2021 End: 10-27-2021 Subsequent hospital visit by physician Xr [facility] Work Phone: Radiology Comment on above: Pain of right hand [ M79.641] Start: 10-27-2021 End: 10-27-2021 Patient encounter procedure Ansley Chen ART PROFESSOR.CORE INSERTER Work Phone: [facility] Comment on above: Pain of right hand ( Primary Dx) Start: 10-09-2020 End: 10-09-2020 [facility] Start: 12-26-2017 End: 12-27-2017 Patient encounter procedure [facility] Start: 11-30-2017 End: 12-01-2017 Patient encounter procedure [facility] Procedures Date Procedure Procedure Detail Performing Clinician Start: 11-18-2023 Radiologic exam ches t 2 views Sharon Sung ART PROFESSOR.CORE INSERTER Work Phone: Start: 08-25-2023 Us pelvic nonobstetr ic real-time image complete Ansley Ibrahim ART PROFESSOR.CNM Work Phone: Start: 07-21-2023 Radex fingr minimum 2 views Wilfrid Laura ART PROFESSOR.CORE INSERTER Work Phone: Start: 05-10-2023 STREP A MOLECULAR (POC) [facility] Provider Start: 01-17-2023 URINE OB DIP B/O Michael Granados MD Work Phone: Start: 01-13-2023 URINE OB DIP B/O Stephen Pretty MD Work Phone: Start: 01-10-2023 biophysical pr ofile non-stress testing Mayito Granados MD Work Phone: Start: 01-05-2023 URINE OB DIP B/O Shashi Reynolds ART PROFESSOR.CNM Work Phone: Start: 01-05-2023 biophysical pr ofile non-stress testing Mayito Granados MD Work Phone: Start: 12-31-2022 URINE OB DIP B/O Angeline Kulkarni MD Work Phone: Start: 12-28-2022 biophysical pr ofile non-stress testing Mayito Granados MD Work Phone: Start: 12-24-2022 Us preg uterus after 1st trimest 02/07 gestation Negin Mercerdede CARR Work Phone: Start: 12-23-2022 Antibody screen SONY SUTTON Comment on above: Order Comment: Speci men Type: BLOOD SPECIMENOrdering Facility: [facility] Address: [address] [place] [address] Performed By: #### T SPN, %BRUNO ####[facility] BLOOD BANKCLIA [id number] [address] OF [facility] Start: 12-20-2022 URINE OB DIP B/O Svetlana Schaeffer ART PROFESSOR.CORE INSERTER Work Phone: Start: 12-06-2022 URINE OB DIP B/O Loree Ibrahim ART PROFESSOR.CNM Work Phone: Start: 11-22-2022 Antibody screen ANSLEY IBRAHIM Comment on above: Order Comment: Speci men Type: BLOOD SPECIMEN Ordering Facility: [facility] Address: [address] [place] [address] Performed By: #### T SPN #### [facility]OD BANK CLIA [id number] [address] [facility] [address] OF [facility] Start: 11-22-2022 URINE OB DIP B/O Shashi Reynolds ART PROFESSOR.CNM Work Phone: Start: 10-21-2022 GEST GLUC SCREEN, 1- HR, 50 GM, NON-FASTING [facility] Provider Start: 08-21-2022 STREP A MOLECULAR (POC) Mary HAINES Work Phone: Start: 08-19-2022 Urnls dip stick/tabl et rgnt auto w/o microscopy Alina Pretty ART PROFESSOR.CORE INSERTER Work Phone: Start: 06-18-2022 Antibody screen Clemente Reynolds ART PROFESSOR.CNM Work Phone: Start: 06-18-2022 Bacteria identified in Urine by Culture [facility] Provider Start: 06-18-2022 CBC panel - Blood by Automated count [facility] Provider Start: 06-18-2022 GONORRHEA/CHLAMYDIA NAAT [facility] Provider Start: 06-18-2022 HEP B SURF AG SCRN [facility] Provider Start: 06-18-2022 RPR SCREEN [facility] Provid er Start: 06-18-2022 RUBELLA IGG AB [facility] Prov ider Start: 06-18-2022 TYPE + SCREEN (EXTER NAL LAB) [facility] Provider Start: 06-18-2022 VARICELLA ZOSTER IGG Cc f Provider Start: 12-09-2021 STREP A MOLECULAR (POC) [facility] Provider Start: 10-27-2021 Radex hand minimum 3 views Ansley Chen ART PROFESSOR.CORE INSERTER Work Phone: History of cholecystectomy History of cholecystectomy Ansley Ibrahim ART PROFESSOR.CNM Work Phone: Plan of Treatment Date Care Activity Detail Author Start: 02-23-2026 Screening for malign ant neoplasm of cervix [facility] Start: 12-15-2024 Pap Testing Pap Testing [facility] Start: 12-15-2024 Screening for malign ant neoplasm of cervix Pap Testing [facility] Start: 08-23-2024 GC (Gonorrhea) Scree delmy (18-) GC (Gonorrhea) Screening (-) [facility] Start: 08-23-2024 Screening for Chlamy gogo trachomatis Chlamydia Screening () [facility] Start: 02-28-2024 End: 02-28-2024 Patient encounter procedure 02/28/2024 11:20 AM EST Office Visit OB/Gynecology [address] [place] [address] Angeline Carranza MD [address] [place] [address] annual OB/Gynecology Comment on above: annual Start: 10-09-2023 Covid-19 Vaccine ( season) Covid-19 Vaccine ( season) [facility] Start: 10-09-2023 Covid-19 Vaccine ( season) Covid-19 Vaccine () [facility] Start: 10-09-2023 Influenza vaccination C [facility] Start: 09-20-2023 Urine microalbumin profile DTaP,Tdap,Td Vaccine (7 - Td or Tdap) [facility] Start: 09-02-2023 End: 09-02-2023 Patient encounter procedure 09/02/2023 9:30 AM EDT Office Visit OB/Gynecology [address] [place] [address] Ansley Ibrahim APRN.CN [address] [place] [address] Follow up OB/Gynecology Comment on above: Follow up Start: 08-25-2023 End: 08-25-2023 ambulatory 08/25/2023 3:15 PM EDT Results Only [facility] [address] [place] [address] [facility] Start: 08-25-2023 End: 08-25-2023 Manual pelvic examination 08/25/2023 2:00 PM EDT Procedure OB/Gynecology [address] [place] [address] Pelvic pain in female [R10.2]; Dermoid cyst [D36.9] OB/Gynecology Comment on above: Pelvic pain in femal e [R10.2]; Dermoid cyst [D36.9] Start: 08-24-2023 End: 11-23-2023 Choriogonadotropin.beta subunit [Units/volume] in Serum or Plasma HCG QUANTITATIVE Lab Routine Pelvic pain in female Enlarged uterus Expected: 08/24/2023, Expires: 11/23/2023 [facility] Comment on above: Expected: 08/24/2023 , Expires: 11/23/2023 Start: 08-24-2023 End: 08-23-2024 US Pelvis PELVIC US [facility] Anc Imaging Routine Pelvic pain in female Dermoid cyst Expected: 08/24/2023, Expires: 08/23/2024 [facility] Work Phone: Comment on above: Expected: 08/24/2023 , Expires: 08/23/2024 Start: 06-19-2023 Chlamydia Screening (18) Chlamydia Screening (1824) [facility] Start: 06-19-2023 GC (Gonorrhea) Scree delmy (1824) GC (Gonorrhea) Screening () [facility] Start: 06-19-2023 Screening for Chlamy gogo trachomatis Chlamydia Screening () [facility] Start: 02-07-2023 Behavioral Health Screening Behavioral Health Screening [facility] Start: 02-07-2023 Depression Assessment Depression Ass essment [facility] Start: 12-20-2022 End: 03-21-2023 CBC panel - Blood by Automated count CBC Lab Routine 33 weeks gestation of Expected: 12/20/2022, Expires: 03/21/2023 [facility] Work Phone: Comment on above: Expected: 12/20/2022 , Expires: 03/21/2023 Start: 12-08-2022 RSV Vaccine (1 - Ris k 1-dose series) RSV Vaccine (1 - Risk 1-dose series) [facility] Start: 11-22-2022 End: 01-22-2023 SYPHILIS TOTAL W/REFLEX [facility] Work Phone: Comment on above: Expected: 11/22/2022 , Expires: 01/22/2023 Start: 11-22-2022 End: 01-22-2023 TYPE + SCREEN [facility] Work Phone: Comment on above: Expected: 11/22/2022 , Expires: 01/22/2023 Start: 10-08-2022 Covid-19 Vaccine ( season) Covid-19 Vaccine ( season) [facility] Start: 10-08-2022 Influenza vaccination C [facility] Start: 08-21-2022 End: 09-04-2022 Influenza virus A and B RNA and SARS-CoV-2 (COVID-19) N gene panel - Respiratory specimen by ELMIRA with probe detection COVID WITH FLUA+B, ROUTINE Microbiology Routine Sore throat Viral illness Expected: 08/21/2022, Expires: 09/04/2022 [facility] Work Phone: Comment on above: Expected: 08/21/2022 , Expires: 09/04/2022 Start: 02-07-2022 DEPRESSION ASSESSMENT DEPRESSION ASS [facility] Start: 2021 PAP TESTING PAP TESTING [facility] Start: 10-08-2021 Influenza vaccination INFLUENZA (#1) [facility] Start: 02-07-2021 [facility]ION [facility] Start: 12-22-2019 Urine microalbumin profile [facility] Start: 2018 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 Disease Visit Annual PCP Team Chronic Disease Visit [facility] Start: 2018 Anxiety Screening Anxiety Screening [facility] Start: 2018 CHLAMYDIA SCREENING (18-24) CHLAMYDIA SCREENING (18-24) [facility] Start: 2018 Depression Screening Depression Scre ening [facility] Start: 2018 GC (GONORRHEA) SCREE DELMY (18-24) GC (GONORRHEA) SCREENING (18-24) [facility] Start: 2018 HEPATITIS C SCREENING HEPATITIS C [facility] Start: 2018 Hepatitis C screening Hepatitis C [facility] Start: 2018 HIV SCREENING HIV SCREENING [facility] Start: 2018 HIV screening HIV Screening [facility] Start: 2018 Spirometry Spirometry [facility] Start: 2016 Meningococcal B Vacc ine: Consider Based On Risk (1 of 2 - Patient Seeks Protection) Meningococcal B Vaccine: Consider Based On Risk (1 of 2 - Patient Seeks Protection) [facility] Start: 2016 MENINGOCOCCAL B: Consider based on risk (1 of 2 - Patient Seeks Protection) MENINGOCOCCAL B: Consider based on risk (1 of 2 - Patient Seeks Protection) [facility] Start: 2014 PEDS TO ADULT TRANSI TION ANNUAL ASSESSMENT PEDS TO ADULT TRANSITION ANNUAL ASSESSMENT [facility] Start: 03-22-2014 HPV Vaccine (2 - 2-d ose series) HPV Vaccine (2 - 2-dose series) [facility] Start: 2012 Adult depression screening assessment DEPRESSION SCREENING [facility] Start: 2012 PEDS TO ADULT TRANSI TION INITIAL DISCUSSION PEDS TO ADULT TRANSITION INITIAL DISCUSSION [facility] Start: 12-22-2011 HPV VACCINE (1 - 2-d ose series) HPV VACCINE (1 - 2-dose series) [facility] Start: 2010 MENINGOCOCCAL B: Consider based on risk (1 of 2 - Risk Bexsero 2-dose series) MENINGOCOCCAL B: Consider based on risk (1 of 2 - Risk Bexsero 2-dose series) [facility] Start: 2009 HPV VACCINE (1 - 2-d ose series) HPV VACCINE (1 - 2-dose series) [facility] Start: 2006 Pneumococcal vaccination Pneum ococcal Vaccine (1 - PCV) [facility] Start: 06-20-2001 COVID-19 VACCINE (#1) COVID-19 VACCI NE (#1) [facility] Start: 2000 HEPATITIS B (1 of 3 - 3-dose series) HEPATITIS B (1 of 3 - 3-dose series) [facility] Start: 2000 Hepatitis B Vaccine (1 of 3 - 3-dose series) Hepatitis B Vaccine (1 of 3 - 3-dose series) [facility] ALERE STREP A TEST (AG) ALERE ST REP A TEST (AG) Lab Routine Sore throat Ordered: 12/09/2021 [facility] Work Phone: Comment on above: Ordered: 12/09/2021 Bacteria identified in Urine by Culture URINE CULTURE Microbiology Routine Burning with urination 08/19/2022 4:32 PM EDT [facility] Work Phone: BACTERIAL VAGINOSIS NAAT BACTERI AL VAGINOSIS NAAT Lab Routine Pelvic pain in female 08/24/2023 11:47 AM EDT [facility] ALLIE/TRICHOMONAS NAAT ALLIE /TRICHOMONAS NAAT Lab Routine Pelvic pain in female 08/24/2023 11:47 AM EDT [facility] Chlamydia trachomatis+Neisseria gonorrhoeae DNA [Presence] in Unspecified specimen by ELMIRA with probe detection GONORRHEA/CHLAMYDIA NAAT Lab Routine Pelvic pain in female 08/24/2023 11:47 AM EDT [facility] End: 02-02-2023 nonstress test NON-STRESS TEST Procedures Routine Poor growth affecting management of mother in third trimester, single or unspecified fetus Once per week for 4 Occurrences starting 12/28/2022 until 02/02/2023 [facility] Work Phone: Comment on above: Once per week for 4 Occurrences starting 12/28/2022 until 02/02/2023 [facility] Immunizations Immunization Date Immunization Notes Care Provider Fa [facility] 11-22-2022 RHO(D) immune globul in- IV or IM Danni Reynolds ART PROFESSOR.CN Work Phone: [facility] Work Phone: 09-19-2013 human papilloma viru s vaccine, quadrivalent Ansley Ibrahim ART PROFESSOR.CNM Work Phone: [facility] Work Phone: 09-19-2013 tetanus toxoid, redu marycruz diphtheria toxoid, and acellular pertussis vaccine, adsorbed Ansley Patrice LANDRYN.CNM Work Phone: [facility] Work Phone: 09-26-2006 diphtheria, tetanus toxoids and acellular pertussis vaccine, unspecified formulation Ansley Patrice LANDRYN.CNM Work Phone: [facility] Work Phone: 09-26-2006 hepatitis A vaccine, unspecified formulation Ansley Patrice LANDRYN.CNM Work Phone: [facility] Work Phone: 09-26-2006 measles, mumps, rube lla, and varicella virus vaccine Ansleyryland Ibrahim APRN.CNM Work Phone: [facility] Work Phone: 09-26-2006 poliovirus vaccine, inactivated Ansley Patrice LANDRYN.CNM Work Phone: [facility] Work Phone: 11-23-2004 diphtheria, tetanus toxoids and acellular pertussis vaccine, unspecified formulation Ansley Ibrahim APRN.CNM Work Phone: [facility] Work Phone: 11-23-2004 haemophilus influenz ae type b vaccine, conjugate unspecified formulation Ansley Ibrahim APRN.CNM Work Phone: [facility] Work Phone: 11-23-2004 pneumococcal conjuga te vaccine, 7 valent Ansley Ibrahim APRN.CNM Work Phone: [facility] Work Phone: 11-23-2004 poliovirus vaccine, inactivated Ansleyryland Ibrahim APRN.CNM Work Phone: [facility] Work Phone: 11-23-2004 varicella virus vaccine Biarolando shrestha Patrice LANDRYN.CNM Work Phone: [facility] Work Phone: 03-27-2002 haemophilus influenz ae type b vaccine, conjugate unspecified formulation Ansley Ibrahim APRN.CNM Work Phone: [facility] Work Phone: 03-27-2002 hepatitis B vaccine, pediatric or pediatric/adolescent dosage Ansley Ibrahim APRN.CNM Work Phone: [facility] Work Phone: 03-27-2002 measles, mumps and rubella virus vaccine Ansleyryland Ibrahim APRN.CNM Work Phone: [facility] Work Phone: 03-27-2002 pneumococcal conjuga te vaccine, 7 valent Ansleyryland Ibrahim ART PROFESSOR.CNM Work Phone: [facility] Work Phone: 06-30-2001 DTP-Haemophilus influenzae type b conjugate vaccine Ansley Patrice ART PROFESSOR.CNM Work Phone: [facility] Work Phone: 06-30-2001 pneumococcal polysaccharide vaccine, 23 valent Ansleyryland Ibrahim ART PROFESSOR.CNM Work Phone: [facility] Work Phone: 05-05-2001 DTP-Haemophilus influenzae type b conjugate vaccine Ansley Patrice ART PROFESSOR.CNM Work Phone: [facility] Work Phone: 05-05-2001 pneumococcal polysaccharide vaccine, 23 valent Ansleyryland Ibrahim ART PROFESSOR.CNM Work Phone: [facility] Work Phone: 05-05-2001 poliovirus vaccine, inactivated Ansleyryland Ibrahim ART PROFESSOR.CNM Work Phone: [facility] Work Phone: 03-07-2001 DTP-Haemophilus influenzae type b conjugate vaccine Ansleyryland Ibrahim APRN.CNM Work Phone: [facility] Work Phone: 03-07-2001 pneumococcal conjuga te vaccine, 7 valent Ansleyryland Ibrahim ART PROFESSOR.CNM Work Phone: [facility] Work Phone: 03-07-2001 poliovirus vaccine, inactivated Ansleyryland Ibrahim ART PROFESSOR.CNM Work Phone: [facility] Work Phone: 01-30-2001 hepatitis B vaccine, pediatric or pediatric/adolescent dosage Ansley Ibrahim ART PROFESSOR.CNM Work Phone: [facility] Work Phone: 2000 hepatitis B vaccine, pediatric or pediatric/adolescent dosage Ansley Ibrahim ART PROFESSOR.CNM Work Phone: [facility] Work Phone: Payers Date Payer Category Payer Medicaid [id number] 2021 Medicaid [id number] 2013 Private Health Insurance [id number] 2000 Unknown [id number] 2000 Unknown [id number] 2.16. [id number] 2000 Unknown [id number] 2000 Unknown [id number] [id number]. [id number] 2000 Unknown [id number] 2.16. [id number] 1977 Unknown [id number] [id number]. [id number] 1977 Unknown [id number] [id number]. [id number] 1959 Private Health Insurance [id number] Social History Date Type Detail Facility Start: 10-27-2021 End: 11-18-2023 Tobacco smoking status NHIS Ex-smoker [facility] Start: 11-08-2014 End: 11-08-2022 History of tobacco use Current smoker [facility] Start: 11-08-2014 End: 11-08-2022 History of tobacco use Cigarette Smoker [facility] Start: 10-27-2021 End: 11-18-2023 Tobacco use and exposure Smokeless tobacco non-user [facility] Start: 10-27-2021 End: 11-18-2023 Alcohol intake Lifetime non-drinker (finding) [facility] Start: 10-27-2021 Tobacco Comment carissa Ricks [facility] Start: 2000 Sex Assigned At Not on file [facility] Start: 10-17-2021 End: 12-09-2021 Exposure to SARS-CoV-2 (event) Not sure [facility] Tobacco smoking status No Smokin g Status Entered [facility] Sex Assigned At Female [facility] Start: 08-19-2022 End: 11-15-2022 History of Social function [facility] Start: 08-19-2022 End: 11-15-2022 Tobacco use panel [facility] History of tobacco use Passive smoker [facility] National Score (1-10 0), lower number is lower risk Not on file [facility] Start: 05-12-2022 [facility] Start: 11-15-2022 Education 11 [facility] Goals Date Patient Goal Desired Activity /State Personal health goal Personal health goal Mental Status Date Assessment Result Facility 12-25-2021 Mental Status Orientation Oriented x 4 [facility] 12-25-2021 Mental Status [facility] Clinical Notes 10-27-2021 to 11-18-2023 Patient InstructionsRik Yadav RT(R) - 11/18/2023 3:20 PM EDTBSharon draper APRN.CORE INSERTER - 11/18/2023 3:19 PM EDTBirgit Vega MD - 08/25/2023 11:37 PM EDTPatient Instructions Note Date & Type Note Facility 11-18-2023 Instructions Sharon Sung APRN.CORE INSERTER - 11/18/2023 3:58 PM EDT - Albuterol 1-2 puffs every 4-6 hours as needed - Tessalon perles 1-2 capsules up to 3 times per day as needed for cough - If the tessalon perles do not help cough, stop and start dextromethorphan (delsym) per directions - Azithromycin per directions - If no improvement in the next 1 week follow up or sooner if symptoms worsen documented in this encounter [facility] 11-18-2023 History of Presen t illness Narrative Radiology Service Progress Note PATIENT NAME: Chana De La O DATE OF SERVICE: November 18, 2023 TIME: 3:30 PM PATIENT IDENTITY VERIFICATION COMPLETED USING TWO (2) IDENTIFIERS: Name and Date of confirmed by patient verbally. FALL SCREENING: Has the patient had 2 falls in the last year or 1 fall with injury or currently using an Ambulatory Assistive Device (Walker, Cane, Wheelchair, Crutches, etc.)? No PATIENT GENDER DATA: Female. status: : No status: NO. PATIENT RELEVANT IMPLANT DATA REVIEWED: Yes PATIENT PRESENTS WITH AN IMPLANTABLE OR ATTACHED FIRE LIEUTENANT MARINE: No RADIOLOGY DEPARTMENT: General X-ray: Exam(s) Completed: Chest X-Ray PERIPHERAL IV DATA: Not applicable SIGNED BY: RT Erica(R) November 18, 2023 3:30 PM documented in this encounter [facility] 11-18-2023 Note HNO ID: [id number] Author: RIK YADAV RT(Wendy) Service: ? Author Type: Income Tax Consultant Type: Progress Notes Filed: 11/18/2023 15:43 Note Text: Radiology Service Progress Note PATIENT NAME: Chana De La O DATE OF SERVICE: November 18, 2023 TIME: 3:30 PM PATIENT IDENTITY VERIFICATION COMPLETED USING TWO (2) IDENTIFIERS: Name and Date of confirmed by patient verbally. FALL SCREENING: Has the patient had 2 falls in the last year or 1 fall with injury or currently using an Ambulatory Assistive Device (Walker, Cane, Wheelchair, Crutches, etc.)? No PATIENT GENDER DATA: Female. status: : No status: NO. PATIENT RELEVANT IMPLANT DATA REVIEWED: Yes PATIENT PRESENTS WITH AN IMPLANTABLE OR ATTACHED FIRE LIEUTENANT MARINE: No RADIOLOGY DEPARTMENT: General X-ray: Exam(s) Completed: Chest X-Ray PERIPHERAL IV DATA: Not applicable SIGNED BY: RT Erica(R) November 18, 2023 3:30 PM [facility] 11-18-2023 Note HNO ID: [id number] Author: SHARON SUNG APRN.CORE INSERTER Service: ? Author Type: Nurse Practitioner Type: Progress Notes Filed: 11/18/2023 16:05 Note Text: Patient presents with: Cough: Chest congestion and tightness x1 week, ST for first 2 days She feels the symptoms are more in her chest. She initially thought she was getting better. Cough Associated symptoms include headaches (occasional), rhinorrhea and sore throat. Pertinent negatives include no chills, no ear pain and no myalgias. Review of Systems Constitutional: Positive for fatigue. Negative for chills and fever. HENT: Positive for congestion, rhinorrhea and sore throat. Negative for ear pain. Respiratory: Positive for cough. Musculoskeletal: Negative for myalgias. Neurological: Positive for headaches (occasional). Physical Exam Vitals reviewed. Constitutional: Appearance: Normal appearance. HENT: Head: Normocephalic. Right Ear: Tympanic membrane, ear canal and external ear normal. Left Ear: Tympanic membrane, ear canal and external ear normal. Nose: Congestion present. Mouth/Throat: Mouth: Mucous membranes are moist. Pharynx: No posterior oropharyngeal erythema. Eyes: Extraocular Movements: Extraocular movements intact. Cardiovascular: Rate and Rhythm: Normal rate and regular rhythm. Heart sounds: Normal heart sounds. Pulmonary: Effort: Pulmonary effort is normal. No respiratory distress. Breath sounds: Normal breath sounds. No wheezing, rhonchi or rales. Comments: Harsh cough Musculoskeletal: Cervical back: Neck supple. Lymphadenopathy: Cervical: No cervical adenopathy. Neurological: Mental Status: She is alert. ASSESSMENT/PLAN: 1. Acute cough - ICD9: 786.2, ICD10: R05.1 - XR CHEST 2V FRONTAL/LAT - CXR per radiologist review showed no acute radiographic abnormality - Refilled albuterol - Tessalon perles for cough - Azithromycin per directions - If no improvement in the next 1 week she will follow up or sooner if symptoms worsen - She verbalized understanding and agreement with this plan. Sharon Sung APRN.CORE INSERTER [facility] 11-18-2023 History of Presen t illness Narrative Patient presents with: Cough: Chest congestion and tightness x1 week, ST for first 2 days She feels the symptoms are more in her chest. She initially thought she was getting better. Cough Associated symptoms include headaches (occasional), rhinorrhea and sore throat. Pertinent negatives include no chills, no ear pain and no myalgias. Review of Systems Constitutional: Positive for fatigue. Negative for chills and fever. HENT: Positive for congestion, rhinorrhea and sore throat. Negative for ear pain. Respiratory: Positive for cough. Musculoskeletal: Negative for myalgias. Neurological: Positive for headaches (occasional). Physical Exam Vitals reviewed. Constitutional: Appearance: Normal appearance. HENT: Head: Normocephalic. Right Ear: Tympanic membrane, ear canal and external ear normal. Left Ear: Tympanic membrane, ear canal and external ear normal. Nose: Congestion present. Mouth/Throat: Mouth: Mucous membranes are moist. Pharynx: No posterior oropharyngeal erythema. Eyes: Extraocular Movements: Extraocular movements intact. Cardiovascular: Rate and Rhythm: Normal rate and regular rhythm. Heart sounds: Normal heart sounds. Pulmonary: Effort: Pulmonary effort is normal. No respiratory distress. Breath sounds: Normal breath sounds. No wheezing, rhonchi or rales. Comments: Harsh cough Musculoskeletal: Cervical back: Neck supple. Lymphadenopathy: Cervical: No cervical adenopathy. Neurological: Mental Status: She is alert. ASSESSMENT/PLAN: 1. Acute cough - ICD9: 786.2, ICD10: R05.1 - XR CHEST 2V FRONTAL/LAT - CXR per radiologist review showed no acute radiographic abnormality - Refilled albuterol - Tessalon perles for cough - Azithromycin per directions - If no improvement in the next 1 week she will follow up or sooner if symptoms worsen - She verbalized understanding and agreement with this plan. Sharon Sung APRN.CORE INSERTER documented in this encounter [facility] 08-25-2023 Note HNO ID: [id number] Author: BIRGIT VEGA MD Service: ? Author Type: Physician Type: Progress Notes Filed: 08/26/2023 16:39 Note Text: The patient presents for requested ultrasound. Full report available in the Imaging tab in Epic. Birgit Vega MD [facility] 08-25-2023 History of Presen t illness Narrative The patient presents for requested ultrasound. Full report available in the Imaging tab in Epic. Birgit Vega MD documented in this encounter [facility] 08-24-2023 Note HNO ID: [id number] Author: ANSLEY IBRAHIM APRN.CNM Service: ? Author Type: Extruder Type: Progress Notes Filed: 08/24/2023 12:33 Note Text: Chana De La O is a 22 year old female who presents for problem visit HPI: Here today for follow up from ED visit. Seen in ED at [facility] for abdominal pain. Dermoid cyst seen. Wanted to tell me her history from the beginning when pain started 2 years ago. After of first child 08/28, 3-4 wks after had DANDC for retained membranes. Since that time feels she had problems. 2-3 wks after DANDC had gallbladder removal. Since then non stop throwing up, pain from under breast, to pelvis and going around back. general surgery at [facility], gallbladder removed. Can't keep anything down, smell of food makes her nauseated. is GI doctor doing tests and all negative. Last appointment with was a month ago, has upcoming appointment on Tuesday. Feels that he is listening but no findings. Has anxiety and feels she over thinks things. Notices that it is worse 1 week before menses. Feels like it is really bad and can't manage the pain. Rating pain 20/10, worse than contractions. Takes Midol, ibuprofen, tylenol, naproxen and nothing helps. Naproxen used to work but does not help now. Wondering if it is something from placental retained membranes. Has since had a child. Normal pain does go down into pelvis. Pain is a Prior tubal ligation. Current relationship for one month, ok for STD testing. Smoking marijuana daily, tried to stop for one week, states she lost 15 lbs and pain was worse and was . Smoking daily and 4 times a day. States that pain is improved by sex and baths/showers.Denies any pain with sex. 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 Test Preparer History LMP: 08/21/2023 (Exact Date), Having periods Age at Menarche: Age at First : Age at Menopause: Test Preparer History Comments: Sexual Activity: Yes; No partner data on record Contraception: No contraception data on record PAST MEDICAL HISTORY Diagnosis Date ADHD (attention deficit hyperactivity disorder) Anemia Asthma Gastroparesis IBS (irritable bowel syndrome) PCOS (polycystic ovarian syndrome) Placental abruption in third trimester 12/27/2022 Reactive airway disease inhaler use with URIs PAST SURGICAL HISTORY Procedure Laterality Date DANDC SUCTION 08/31/2021 Retained POC after 08/11/21 vaginal delivery REMOVAL GALLBLADDER REMOVE TONSILS/ADENOIDS,12+ Y/O 2018 SALPINGECTOMY Bilateral 03/04/2023 FAMILY HISTORY Problem Relation Age of Onset No Known Problems Mother Diabetes Father No Known Problems Sister Breast Cancer Maternal Grandmother Obstructive Sleep Apnea Maternal Grandfather Diabetes Paternal Grandfather No Known Problems Half-brother No Known Problems Daughter Social History Tobacco Use Smoking status: Former Years: 8 Types: Cigarettes Quit date: 11/08/2022 Years since quittin.7 Passive exposure: Past Smokeless tobacco: Never Tobacco comments: vape Vaping Use Vaping Use: Some days Substances: Nicotine Substance Use Topics Alcohol use: Never Drug use: Not Currently Types: Marijuana Current Outpatient Medications Medication Sig fluticasone (FLONASE) 50 mcg/actuation nasal spray Use 2 Sprays in each nostril once daily. Rinse mouth after use. albuterol HFA (PROVENTIL HFA, VENTOLIN HFA) 90 mcg/actuation inhaler Inhale 2 Puffs as instructed every 4 hours as needed for wheezing/shortness of breath. cetirizine (ZYRTEC) 10 mg tablet Take 1 tablet by mouth once daily. albuterol HFA (PROVENTIL HFA, VENTOLIN HFA) 90 mcg/actuation inhaler Inhale 2 Puffs as instructed every 4 hours as needed for wheezing/shortness of breath. ferrous sulfate 325 mg (65 mg iron) tablet Take by mouth. albuterol HFA (PROAIR HFA) 90 mcg/actuation inhaler Inhale 2 Puffs as instructed every 6 hours as needed. benzonatate (TESSALON PERLE) 100 mg capsule Take 1 capsule by mouth three times a day as needed for cough. (Patient not taking: Reported on 06/15/2023) ondansetron (ZOFRAN) 8 mg tablet Take by mouth three times a day as needed. (Patient not taking: Reported on 05/10/2023) prochlorperazine (COMPAZINE) 10 mg tablet Take 10 mg by mouth once daily. (Patient not taking: Reported on 05/10/2023) vit/iron fum/folic ac ( 1 + 1 ORAL) Take by mouth. (Patient not taking: Reported on 11/15/2022) ondansetron orally disintegrating (ZOFRAN ODT) 4 mg disintegrating tablet TAKE 2 TABLETS BY MOUTH EVERY 8 HOURS NEEDED FOR NAUSEA (Patient not taking: Reported on 05/10/2023) No current facility-administered medications for this visit. Allergies As of Date: 08/24/2023 Allergen Noted Reaction SEASONAL ALLERGIES 11/30/2017 Cough, Other: See Comments, and Itching Fully Assessed 08/24/2023 REVIEW OF SYSTEMS Abdomen: No bloating, early satiety, indigestion, or increased flatulence. No a (more content not included)... [facility] 08-24-2023 History of Presen t illness Narrative Chana De La O is a 22 year old female who presents for problem visit HPI: Here today for follow up from ED visit. Seen in ED at [facility] for abdominal pain. Dermoid cyst seen. Wanted to tell me her history from the beginning when pain started 2 years ago. After of first child 08/28, 3-4 wks after had D&C for retained membranes. Since that time feels she had problems. 2-3 wks after D&C had gallbladder removal. Since then non stop throwing up, pain from under breast, to pelvis and going around back. general surgery at [facility], gallbladder removed. Can't keep anything down, smell of food makes her nauseated. is GI doctor doing tests and all negative. Last appointment with was a month ago, has upcoming appointment on Tuesday. Feels that he is listening but no findings. Has anxiety and feels she over thinks things. Notices that it is worse 1 week before menses. Feels like it is really bad and can't manage the pain. Rating pain 20/10, worse than contractions. Takes Midol, ibuprofen, tylenol, naproxen and nothing helps. Naproxen used to work but does not help now. Wondering if it is something from placental retained membranes. Has since had a child. Normal pain does go down into pelvis. Pain is a Prior tubal ligation. Current relationship for one month, ok for STD testing. Smoking marijuana daily, tried to stop for one week, states she lost 15 lbs and pain was worse and was . Smoking daily and 4 times a day. States that pain is improved by sex and baths/showers.Denies any pain with sex. 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 Test Preparer History LMP: 08/21/2023 (Exact Date), Having periods Age at Menarche: Age at First : Age at Menopause: Test Preparer History Comments: Sexual Activity: Yes; No partner data on record Contraception: No contraception data on record PAST MEDICAL HISTORY Diagnosis Date ADHD (attention deficit hyperactivity disorder) Anemia Asthma Gastroparesis IBS (irritable bowel syndrome) PCOS (polycystic ovarian syndrome) Placental abruption in third trimester 12/27/2022 Reactive airway disease inhaler use with URIs PAST SURGICAL HISTORY Procedure Laterality Date D&C SUCTION 08/31/2021 Retained POC after 08/11/21 vaginal delivery REMOVAL GALLBLADDER REMOVE TONSILS/ADENOIDS,12+ Y/O 2018 SALPINGECTOMY Bilateral 03/04/2023 FAMILY HISTORY Problem Relation Age of Onset No Known Problems Mother Diabetes Father No Known Problems Sister Breast Cancer Maternal Grandmother Obstructive Sleep Apnea Maternal Grandfather Diabetes Paternal Grandfather No Known Problems Half-brother No Known Problems Daughter Social History Tobacco Use Smoking status: Former Years: 8 Types: Cigarettes Quit date: 11/08/2022 Years since quittin.7 Passive exposure: Past Smokeless tobacco: Never Tobacco comments: vape Vaping Use Vaping Use: Some days Substances: Nicotine Substance Use Topics Alcohol use: Never Drug use: Not Currently Types: Marijuana Current Outpatient Medications Medication Sig fluticasone (FLONASE) 50 mcg/actuation nasal spray Use 2 Sprays in each nostril once daily. Rinse mouth after use. albuterol HFA (PROVENTIL HFA, VENTOLIN HFA) 90 mcg/actuation inhaler Inhale 2 Puffs as instructed every 4 hours as needed for wheezing/shortness of breath. cetirizine (ZYRTEC) 10 mg tablet Take 1 tablet by mouth once daily. albuterol HFA (PROVENTIL HFA, VENTOLIN HFA) 90 mcg/actuation inhaler Inhale 2 Puffs as instructed every 4 hours as needed for wheezing/shortness of breath. ferrous sulfate 325 mg (65 mg iron) tablet Take by mouth. albuterol HFA (PROAIR HFA) 90 mcg/actuation inhaler Inhale 2 Puffs as instructed every 6 hours as needed. benzonatate (TESSALON PERLE) 100 mg capsule Take 1 capsule by mouth three times a day as needed for cough. (Patient not taking: Reported on 06/15/2023) ondansetron (ZOFRAN) 8 mg tablet Take by mouth three times a day as needed. (Patient not taking: Reported on 05/10/2023) prochlorperazine (COMPAZINE) 10 mg tablet Take 10 mg by mouth once daily. (Patient not taking: Reported on 05/10/2023) vit/iron fum/folic ac ( 1 + 1 ORAL) Take by mouth. (Patient not taking: Reported on 11/15/2022) ondansetron orally disintegrating (ZOFRAN ODT) 4 mg disintegrating tablet TAKE 2 TABLETS BY MOUTH EVERY 8 HOURS NEEDED FOR NAUSEA (Patient not taking: Reported on 05/10/2023) No current facility-administered medications for this visit. Allergies As of Date: 08/24/2023 Allergen Noted Reaction SEASONAL ALLERGIES 11/30/2017 Cough, Other: See Comments, and Itching Fully Assessed 08/24/2023 REVIEW OF SYSTEMS Abdomen: No bloating, early satiety, indigestion, or increased flatulence. No abdominal pain, nausea, vomiting, diarrhea, or constipation. Bladder: No dysuria, gross hematuria, urinary frequency, urinary urgency, or incontinence. Breast: No breast lumps, nipple d/c, overlying skin changes, redness or skin retraction. Expanded ROS: N/A Allergies and current medication updated:Yes EXAM: BP 116/72 Wt 195 lb (88.5kg) LMP 08/21/2023 GENERAL: pleasant, female in no apparent distress HEENT: Normocephalic and atraumatic NECK: Supple and full range of motion DERMATOLOGY: Normal and without lesions CHEST: Normal inspiratory effort ABDOMEN: soft, no masses. Tenderness in all 4 abdominal quadrants, mild. No pain with pelvic palpation above mons. PELVIC: external genitalia normal, normal Bartholin's glands, urethra, [place]'s glands, no vulvar lesions, no cervical lesions, good vaginal support, physiologic discharge present, normal appearing perineal body and perianal region BIMANUAL: uterus normal size, shape and consistency, no adnexal masses, no cervical motion tenderness, enlarged uterus 6 week size, and Severe tenderness NEURO: alert and oriented x3,exam grossly non-focal EXTREMITIES: normal CT: showed right ovarian mass 3.8x 2.8cm. ASSESSMENT AND PLAN: 1. Pelvic pain in female - ICD9: 625.9, ICD10: R10.2 (primary diagnosis) - PELVIC US WHI - BACTERIAL VAGINOSIS NAAT - ALLIE/TRICHOMONAS NAAT - GONORRHEA/CHLAMYDIA NAAT - HCG QUANTITATIVE - Discussed after US and testing results will discuss management. Reviewed trying OCP continuous cycle or Mirena IUD for management as she has not tried this since her pain began. If no improvement can refer to pelvic pain. Exam without any pain until uterine manipulation, no PFPT at this time but could consider. 2. Abdominal pain, unspecified abdominal location - ICD9: 789.00, ICD10: R10.9 - CONSULT TO GASTROENTEROLOGY 3. Nausea and vomiting, unspecified vomiting type - ICD9: 787.01, ICD10: R11.2 - CONSULT TO GASTROENTEROLOGY 4. History of cholecystectomy - ICD9: V45.79, ICD10: Z90.49 - CONSULT TO GASTROENTEROLOGY 5. Dermoid cyst - ICD9: 229.9, ICD10: D36.9 -Will order US. Discussed likely not the cause of her pain but will get US. - PELVIC US WHI 6. PCOS (polycystic ovarian syndrome) - ICD9: 256.4, ICD10: E28.2 7. Enlarged uterus - ICD9: 621.2, ICD10: N85.2 - HCG QUANTITATIVE - PELVIC US WHI 8. Marijuana use, continuous - ICD9: 305.21, ICD10: F12.90 -Reviewed recommendation for cessation and see if this improves symptoms. Discussed Marijuana overuse can cause N/V and abdominal pain. At this time she is not willing to commit to stopping marijuana. Ansley Ibrahim APRN.CNM documented in this encounter [facility] 07-21-2023 History of Presen t illness Narrative Radiology Service Progress Note PATIENT NAME: Chana De La O DATE OF SERVICE: July 21, 2023 TIME: 3:01 PM PATIENT IDENTITY VERIFICATION COMPLETED USING TWO (2) IDENTIFIERS: Name and Date of confirmed by patient verbally. FALL SCREENING: Has the patient had 2 falls in the last year or 1 fall with injury or currently using an Ambulatory Assistive Device (Walker, Cane, Wheelchair, Crutches, etc.)? No PATIENT GENDER DATA: Female. status: : No status: NO. PATIENT RELEVANT IMPLANT DATA REVIEWED: Yes PATIENT PRESENTS WITH AN IMPLANTABLE OR ATTACHED FIRE LIEUTENANT MARINE: No RADIOLOGY DEPARTMENT: General X-ray: Exam(s) Completed: Upper Extremity X-Ray(s): Fingers/Thumb, right Thumb PERIPHERAL IV DATA: Not applicable SIGNED BY: RT Erica(Wendy) July 21, 2023 3:01 PM documented in this encounter [facility] 07-21-2023 Note HNO ID: [id number] Author: RIK YADAV RT(Wendy) Service: ? Author Type: Income Tax Consultant Type: Progress Notes Filed: 07/21/2023 15:09 Note Text: Radiology Service Progress Note PATIENT NAME: Chana De La O DATE OF SERVICE: July 21, 2023 TIME: 3:01 PM PATIENT IDENTITY VERIFICATION COMPLETED USING TWO (2) IDENTIFIERS: Name and Date of confirmed by patient verbally. FALL SCREENING: Has the patient had 2 falls in the last year or 1 fall with injury or currently using an Ambulatory Assistive Device (Walker, Cane, Wheelchair, Crutches, etc.)? No PATIENT GENDER DATA: Female. status: : No status: NO. PATIENT RELEVANT IMPLANT DATA REVIEWED: Yes PATIENT PRESENTS WITH AN IMPLANTABLE OR ATTACHED FIRE LIEUTENANT MARINE: No RADIOLOGY DEPARTMENT: General X-ray: Exam(s) Completed: Upper Extremity X-Ray(s): Fingers/Thumb, right Thumb PERIPHERAL IV DATA: Not applicable SIGNED BY: RT Erica(R) July 21, 2023 3:01 PM [facility] 07-21-2023 Note HNO ID: [id number] Author: WILFRID LAURA APRN.CORE INSERTER Service: ? Author Type: Nurse Practitioner Type: Progress Notes Filed: 07/21/2023 15:29 Note Text: Subjective HPI Nontoxic-appearing female presents urgent care chief complaint right thumb injury. Patient states closed finger in a car door today. Presents today for evaluation. Swelling and bruising has developed. Denies any other injuries. [id number]. No numbness no tingling. No decrease sensation. No weakness. No breaks in skin. Denies any fever body aches chills productive cough chest pain shortness of breath pleuritic pain hemoptysis nausea vomiting abdominal pain change in bowel or bladder habits. Past medical history prescription medication use and allergies reviewed. Denies chance of . .Patient presents with: Thumb Injury: Right thumb smashed in car door x1 day PAST MEDICAL HISTORY Diagnosis Date ADHD (attention deficit hyperactivity disorder) Anemia Asthma Gastroparesis IBS (irritable bowel syndrome) PCOS (polycystic ovarian syndrome) Placental abruption in third trimester 12/27/2022 Reactive airway disease inhaler use with URIs PAST SURGICAL HISTORY Procedure Laterality Date DANDC SUCTION 08/31/2021 Retained POC after 08/11/21 vaginal delivery REMOVAL GALLBLADDER REMOVE TONSILS/ADENOIDS,12+ Y/O 2018 SALPINGECTOMY Bilateral 03/04/2023 ALLERGIES Seasonal Allergies MEDICATIONS fluticasone (FLONASE) 50 mcg/actuation nasal spray Use 2 Sprays in each nostril once daily. Rinse mouth after use. albuterol HFA (PROVENTIL HFA, VENTOLIN HFA) 90 mcg/actuation inhaler Inhale 2 Puffs as instructed every 4 hours as needed for wheezing/shortness of breath. cetirizine (ZYRTEC) 10 mg tablet Take 1 tablet by mouth once daily. albuterol HFA (PROVENTIL HFA, VENTOLIN HFA) 90 mcg/actuation inhaler Inhale 2 Puffs as instructed every 4 hours as needed for wheezing/shortness of breath. ferrous sulfate 325 mg (65 mg iron) tablet Take by mouth. albuterol HFA (PROAIR HFA) 90 mcg/actuation inhaler Inhale 2 Puffs as instructed every 6 hours as needed. benzonatate (TESSALON PERLE) 100 mg capsule Take 1 capsule by mouth three times a day as needed for cough. (Patient not taking: Reported on 06/15/2023) ondansetron (ZOFRAN) 8 mg tablet Take by mouth three times a day as needed. (Patient not taking: Reported on 05/10/2023) prochlorperazine (COMPAZINE) 10 mg tablet Take 10 mg by mouth once daily. (Patient not taking: Reported on 05/10/2023) vit/iron fum/folic ac ( 1 + 1 ORAL) Take by mouth. (Patient not taking: Reported on 11/15/2022) ondansetron orally disintegrating (ZOFRAN ODT) 4 mg disintegrating tablet TAKE 2 TABLETS BY MOUTH EVERY 8 HOURS NEEDED FOR NAUSEA (Patient not taking: Reported on 05/10/2023) FAMILY HISTORY Problem Relation Age of Onset No Known Problems Mother Diabetes Father No Known Problems Sister Breast Cancer Maternal Grandmother Obstructive Sleep Apnea Maternal Grandfather Diabetes Paternal Grandfather No Known Problems Half-brother No Known Problems Daughter Social History Tobacco Use Smoking status: Former Years: 8 Types: Cigarettes Quit date: 11/08/2022 Years since quittin.6 Passive exposure: Past Smokeless tobacco: Never Tobacco comments: vape Vaping Use Vaping Use: Some days Substances: Nicotine Substance Use Topics Alcohol use: Never Drug use: Not Currently Types: Marijuana BP 122/78 Pulse 71 Temp 36.8 ?C (98.2 ?F) Resp 16 Wt 95 kg (209 lb 7 oz) LMP 05/10/2023 (Approximate) SpO2 98% BMI 34.85 kg/m? Review of Systems Constitutional: Negative for chills, fever and malaise/fatigue. HENT: Negative for congestion, ear discharge, ear pain, sinus pain and sore throat. Eyes: Negative for blurred vision, pain, discharge and redness. Respiratory: Negative for cough, hemoptysis, sputum production, shortness of breath, wheezing and stridor. Cardiovascular: Negative for chest pain. Gastrointestinal: Negative for abdominal pain, diarrhea, nausea and vomiting. Musculoskeletal: Positive for joint pain. Negative for myalgias. Skin: Negative for itching and rash. Neurological: Negative for dizziness and headaches. Objective Physical Exam Constitutional: General: She is not in acute distress. Appearance: She is not toxic-appearing. HENT: Head: Normocephalic. Nose: Nose normal. Eyes: Pupils: Pupils are equal, round, and reactive to light. Cardiovascular: Rate and Rhythm: Normal rate. Pulmonary: Effort: Pulmonary effort is normal. No respiratory distress. Musculoskeletal: Hands: Cervical back: Normal range of motion. Comments: Ecchymosis noted to the highlighted area. Neurovascular intact. No pain with palpation over hand. Pain with palpation over IP joint. No pain with palpation over MCP joint. Skin: General: Skin is warm and dry. Neurological: General: No focal deficit present. Me (more content not included)... [facility] 07-21-2023 History of Presen t illness Narrative Subjective HPI Nontoxic-appearing female presents urgent care chief complaint right thumb injury. Patient states closed finger in a car door today. Presents today for evaluation. Swelling and bruising has developed. Denies any other injuries. [id number]-rgot-[id number]. No numbness no tingling. No decrease sensation. No weakness. No breaks in skin. Denies any fever body aches chills productive cough chest pain shortness of breath pleuritic pain hemoptysis nausea vomiting abdominal pain change in bowel or bladder habits. Past medical history prescription medication use and allergies reviewed. Denies chance of . .Patient presents with: Thumb Injury: Right thumb smashed in car door x1 day PAST MEDICAL HISTORY Diagnosis Date ADHD (attention deficit hyperactivity disorder) Anemia Asthma Gastroparesis IBS (irritable bowel syndrome) PCOS (polycystic ovarian syndrome) Placental abruption in third trimester 12/27/2022 Reactive airway disease inhaler use with URIs PAST SURGICAL HISTORY Procedure Laterality Date D&C SUCTION 08/31/2021 Retained POC after 08/11/21 vaginal delivery REMOVAL GALLBLADDER REMOVE TONSILS/ADENOIDS,12+ Y/O 2018 SALPINGECTOMY Bilateral 03/04/2023 ALLERGIES Seasonal Allergies MEDICATIONS fluticasone (FLONASE) 50 mcg/actuation nasal spray Use 2 Sprays in each nostril once daily. Rinse mouth after use. albuterol HFA (PROVENTIL HFA, VENTOLIN HFA) 90 mcg/actuation inhaler Inhale 2 Puffs as instructed every 4 hours as needed for wheezing/shortness of breath. cetirizine (ZYRTEC) 10 mg tablet Take 1 tablet by mouth once daily. albuterol HFA (PROVENTIL HFA, VENTOLIN HFA) 90 mcg/actuation inhaler Inhale 2 Puffs as instructed every 4 hours as needed for wheezing/shortness of breath. ferrous sulfate 325 mg (65 mg iron) tablet Take by mouth. albuterol HFA (PROAIR HFA) 90 mcg/actuation inhaler Inhale 2 Puffs as instructed every 6 hours as needed. benzonatate (TESSALON PERLE) 100 mg capsule Take 1 capsule by mouth three times a day as needed for cough. (Patient not taking: Reported on 06/15/2023) ondansetron (ZOFRAN) 8 mg tablet Take by mouth three times a day as needed. (Patient not taking: Reported on 05/10/2023) prochlorperazine (COMPAZINE) 10 mg tablet Take 10 mg by mouth once daily. (Patient not taking: Reported on 05/10/2023) vit/iron fum/folic ac ( 1 + 1 ORAL) Take by mouth. (Patient not taking: Reported on 11/15/2022) ondansetron orally disintegrating (ZOFRAN ODT) 4 mg disintegrating tablet TAKE 2 TABLETS BY MOUTH EVERY 8 HOURS NEEDED FOR NAUSEA (Patient not taking: Reported on 05/10/2023) FAMILY HISTORY Problem Relation Age of Onset No Known Problems Mother Diabetes Father No Known Problems Sister Breast Cancer Maternal Grandmother Obstructive Sleep Apnea Maternal Grandfather Diabetes Paternal Grandfather No Known Problems Half-brother No Known Problems Daughter Social History Tobacco Use Smoking status: Former Years: 8 Types: Cigarettes Quit date: 11/08/2022 Years since quittin.6 Passive exposure: Past Smokeless tobacco: Never Tobacco comments: vape Vaping Use Vaping Use: Some days Substances: Nicotine Substance Use Topics Alcohol use: Never Drug use: Not Currently Types: Marijuana BP 122/78 Pulse 71 Temp 36.8 C (98.2 F) Resp 16 Wt 95 kg (209 lb 7 oz) LMP 05/10/2023 (Approximate) SpO2 98% BMI 34.85 kg/m Review of Systems Constitutional: Negative for chills, fever and malaise/fatigue. HENT: Negative for congestion, ear discharge, ear pain, sinus pain and sore throat. Eyes: Negative for blurred vision, pain, discharge and redness. Respiratory: Negative for cough, hemoptysis, sputum production, shortness of breath, wheezing and stridor. Cardiovascular: Negative for chest pain. Gastrointestinal: Negative for abdominal pain, diarrhea, nausea and vomiting. Musculoskeletal: Positive for joint pain. Negative for myalgias. Skin: Negative for itching and rash. Neurological: Negative for dizziness and headaches. Objective Physical Exam Constitutional: General: She is not in acute distress. Appearance: She is not toxic-appearing. HENT: Head: Normocephalic. Nose: Nose normal. Eyes: Pupils: Pupils are equal, round, and reactive to light. Cardiovascular: Rate and Rhythm: Normal rate. Pulmonary: Effort: Pulmonary effort is normal. No respiratory distress. Musculoskeletal: Hands: Cervical back: Normal range of motion. Comments: Ecchymosis noted to the highlighted area. Neurovascular intact. No pain with palpation over hand. Pain with palpation over IP joint. No pain with palpation over MCP joint. Skin: General: Skin is warm and dry. Neurological: General: No focal deficit present. Mental Status: She is alert. ASSESSMENT/PLAN: 1. Injury of right thumb, initial encounter - ICD9: 959.5, ICD10: S69.91XA - XR DIGIT GENERAL 3V FRONTAL/LAT/OBL RIGHT IMPRESSION: No acute radiographic abnormalities seen in the first digit. X-ray negative for acute fractures. Treat as contusion. Red flags reevaluation discussed. Patient was educated on supportive therapies. Patient will follow up with primary care [...] of care. This note was generated using [employer] software. It may contain errors in wording, punctuation, or spelling. Wilfrid Laura APRN.CORE INSERTER documented in this encounter [facility] 06-15-2023 Note HNO ID: [id number] Author: MARY EUBANKS PA Service: ? Author Type: Physician Boilermaker Loftsman Type: Progress Notes Filed: 06/15/2023 10:37 Note Text: This note was created using [employer]. Subjective Chana De La O is a 22 year old female. HPI 22-year-old female presents for bilateral ear fullness, pressure, cough, wheezing. Patient was seen here about 2 weeks ago and diagnosed with sinobronchitis. She took Augmentin and prednisone. She states that her cough and congestion improved, but she is still feeling pressure and feels like fluid is in her ears. She has not been using anything else for her symptoms. Patient is also reporting an increase in wheezing the past 2 days. She states she has a very mild cough, but more is just having wheezing. She states she has been sneezing a lot, feels like her allergies may be flaring up her asthma. She also ran out of her inhaler, so needs a refill on that. She denies any chest pain or shortness of breath currently. She states when she gets them wheezing attacks, she does have some shortness of breath. No fevers. No congestion. No sore throat. No vomiting or diarrhea. No other complaint. PAST MEDICAL HISTORY Diagnosis Date ADHD (attention deficit hyperactivity disorder) Anemia Asthma Gastroparesis IBS (irritable bowel syndrome) PCOS (polycystic ovarian syndrome) Placental abruption in third trimester 12/27/2022 Reactive airway disease inhaler use with URIs PAST SURGICAL HISTORY Procedure Laterality Date DANDC SUCTION 08/31/2021 Retained POC after 08/11/21 vaginal delivery REMOVAL GALLBLADDER REMOVE TONSILS/ADENOIDS,12+ Y/O 2018 SALPINGECTOMY Bilateral 03/04/2023 ALLERGIES Seasonal Allergies MEDICATIONS albuterol HFA (PROVENTIL HFA, VENTOLIN HFA) 90 mcg/actuation inhaler Inhale 2 Puffs as instructed every 4 hours as needed for wheezing/shortness of breath. ferrous sulfate 325 mg (65 mg iron) tablet Take by mouth. albuterol HFA (PROAIR HFA) 90 mcg/actuation inhaler Inhale 2 Puffs as instructed every 6 hours as needed. fluticasone (FLONASE) 50 mcg/actuation nasal spray Use 2 Sprays in each nostril once daily. Rinse mouth after use. albuterol HFA (PROVENTIL HFA, VENTOLIN HFA) 90 mcg/actuation inhaler Inhale 2 Puffs as instructed every 4 hours as needed for wheezing/shortness of breath. cetirizine (ZYRTEC) 10 mg tablet Take 1 tablet by mouth once daily. predniSONE (DELTASONE) 10 mg tablet Take 4 tabs daily for 3 days, then 2 tabs daily for 3 days, then 1 tab daily for 3 days with food. benzonatate (TESSALON PERLE) 100 mg capsule Take 1 capsule by mouth three times a day as needed for cough. (Patient not taking: Reported on 06/15/2023) ondansetron (ZOFRAN) 8 mg tablet Take by mouth three times a day as needed. (Patient not taking: Reported on 05/10/2023) prochlorperazine (COMPAZINE) 10 mg tablet Take 10 mg by mouth once daily. (Patient not taking: Reported on 05/10/2023) vit/iron fum/folic ac ( 1 + 1 ORAL) Take by mouth. (Patient not taking: Reported on 11/15/2022) ondansetron orally disintegrating (ZOFRAN ODT) 4 mg disintegrating tablet TAKE 2 TABLETS BY MOUTH EVERY 8 HOURS NEEDED FOR NAUSEA (Patient not taking: Reported on 05/10/2023) FAMILY HISTORY Problem Relation Age of Onset No Known Problems Mother Diabetes Father No Known Problems Sister Breast Cancer Maternal Grandmother Obstructive Sleep Apnea Maternal Grandfather Diabetes Paternal Grandfather No Known Problems Half-brother No Known Problems Daughter Social History Tobacco Use Smoking status: Former Years: 8 Types: Cigarettes Quit date: 11/08/2022 Years since quittin.6 Passive exposure: Past Smokeless tobacco: Never Tobacco comments: vape Vaping Use Vaping Use: Some days Substances: Nicotine Substance Use Topics Alcohol use: Never Drug use: Not Currently Types: Marijuana Review of Systems Constitutional: Negative for chills and fever. HENT: Positive for ear pain. Negative for congestion and sore throat. Respiratory: Positive for cough and wheezing. Negative for shortness of breath. Cardiovascular: Negative for chest pain. Gastrointestinal: Negative for diarrhea and vomiting. Objective BP 102/64 Pulse 80 Temp 36.4 ?C (97.6 ?F) Resp 21 Wt 98.3 kg (216 lb 11.4 oz) LMP 05/10/2023 (Approximate) SpO2 98% BMI 36.06 kg/m? Physical Exam Vitals and nursing note reviewed. Constitutional: General: She is not in acute distress. Appearance: Normal appearance. She is not toxic-appearing. HENT: Right Ear: Ear canal normal. A middle ear effusion is present. Left Ear: Ear canal normal. A middle ear effusion is present. Ears: Comments: Clear fluid noted behind TMs bilaterally. No erythema. No signs of infection. Nose: Nose normal. Mouth/Throat: Mouth: Mucous membranes are moist. Pharynx: No oropharyngeal exudate or posterior oropharyngeal erythema. Eyes: Conjunctiva/sclera: Conju (more content not included)... [facility] 06-15-2023 History of Presen t illness Narrative This note was created using [employer]. Subjective Chana De La O is a 22 year old female. HPI 22-year-old female presents for bilateral ear fullness, pressure, cough, wheezing. Patient was seen here about 2 weeks ago and diagnosed with sinobronchitis. She took Augmentin and prednisone. She states that her cough and congestion improved, but she is still feeling pressure and feels like fluid is in her ears. She has not been using anything else for her symptoms. Patient is also reporting an increase in wheezing the past 2 days. She states she has a very mild cough, but more is just having wheezing. She states she has been sneezing a lot, feels like her allergies may be flaring up her asthma. She also ran out of her inhaler, so needs a refill on that. She denies any chest pain or shortness of breath currently. She states when she gets them wheezing attacks, she does have some shortness of breath. No fevers. No congestion. No sore throat. No vomiting or diarrhea. No other complaint. PAST MEDICAL HISTORY Diagnosis Date ADHD (attention deficit hyperactivity disorder) Anemia Asthma Gastroparesis IBS (irritable bowel syndrome) PCOS (polycystic ovarian syndrome) Placental abruption in third trimester 12/27/2022 Reactive airway disease inhaler use with URIs PAST SURGICAL HISTORY Procedure Laterality Date D&C SUCTION 08/31/2021 Retained POC after 7/5/22 vaginal delivery REMOVAL GALLBLADDER REMOVE TONSILS/ADENOIDS,12+ Y/O 2018 SALPINGECTOMY Bilateral 03/04/2023 ALLERGIES Seasonal Allergies MEDICATIONS albuterol HFA (PROVENTIL HFA, VENTOLIN HFA) 90 mcg/actuation inhaler Inhale 2 Puffs as instructed every 4 hours as needed for wheezing/shortness of breath. ferrous sulfate 325 mg (65 mg iron) tablet Take by mouth. albuterol HFA (PROAIR HFA) 90 mcg/actuation inhaler Inhale 2 Puffs as instructed every 6 hours as needed. fluticasone (FLONASE) 50 mcg/actuation nasal spray Use 2 Sprays in each nostril once daily. Rinse mouth after use. albuterol HFA (PROVENTIL HFA, VENTOLIN HFA) 90 mcg/actuation inhaler Inhale 2 Puffs as instructed every 4 hours as needed for wheezing/shortness of breath. cetirizine (ZYRTEC) 10 mg tablet Take 1 tablet by mouth once daily. predniSONE (DELTASONE) 10 mg tablet Take 4 tabs daily for 3 days, then 2 tabs daily for 3 days, then 1 tab daily for 3 days with food. benzonatate (TESSALON PERLE) 100 mg capsule Take 1 capsule by mouth three times a day as needed for cough. (Patient not taking: Reported on 06/15/2023) ondansetron (ZOFRAN) 8 mg tablet Take by mouth three times a day as needed. (Patient not taking: Reported on 05/10/2023) prochlorperazine (COMPAZINE) 10 mg tablet Take 10 mg by mouth once daily. (Patient not taking: Reported on 05/10/2023) vit/iron fum/folic ac ( 1 + 1 ORAL) Take by mouth. (Patient not taking: Reported on 11/15/2022) ondansetron orally disintegrating (ZOFRAN ODT) 4 mg disintegrating tablet TAKE 2 TABLETS BY MOUTH EVERY 8 HOURS NEEDED FOR NAUSEA (Patient not taking: Reported on 05/10/2023) FAMILY HISTORY Problem Relation Age of Onset No Known Problems Mother Diabetes Father No Known Problems Sister Breast Cancer Maternal Grandmother Obstructive Sleep Apnea Maternal Grandfather Diabetes Paternal Grandfather No Known Problems Half-brother No Known Problems Daughter Social History Tobacco Use Smoking status: Former Years: 8 Types: Cigarettes Quit date: 11/08/2022 Years since quittin.6 Passive exposure: Past Smokeless tobacco: Never Tobacco comments: vape Vaping Use Vaping Use: Some days Substances: Nicotine Substance Use Topics Alcohol use: Never Drug use: Not Currently Types: Marijuana Review of Systems Constitutional: Negative for chills and fever. HENT: Positive for ear pain. Negative for congestion and sore throat. Respiratory: Positive for cough and wheezing. Negative for shortness of breath. Cardiovascular: Negative for chest pain. Gastrointestinal: Negative for diarrhea and vomiting. Objective BP 102/64 Pulse 80 Temp 36.4 C (97.6 F) Resp 21 Wt 98.3 kg (216 lb 11.4 oz) LMP 05/10/2023 (Approximate) SpO2 98% BMI 36.06 kg/m Physical Exam Vitals and nursing note reviewed. Constitutional: General: She is not in acute distress. Appearance: Normal appearance. She is not toxic-appearing. HENT: Right Ear: Ear canal normal. A middle ear effusion is present. Left Ear: Ear canal normal. A middle ear effusion is present. Ears: Comments: Clear fluid noted behind TMs bilaterally. No erythema. No signs of infection. Nose: Nose normal. Mouth/Throat: Mouth: Mucous membranes are moist. Pharynx: No oropharyngeal exudate or posterior oropharyngeal erythema. Eyes: Conjunctiva/sclera: Conjunctivae normal. Cardiovascular: Rate and Rhythm: Normal rate and regular rhythm. Pulmonary: Effort: Pulmonary effort is normal. Breath sounds: Wheezing present. No decreased breath sounds, rhonchi or rales. Comments: Mild expiratory wheezing in the bases. No acute respiratory distress. Neurological: Mental Status: She is alert. Assessment and Plan ASSESSMENT/PLAN: 1. Mild intermittent asthma with acute exacerbation - ICD9: 493.92, ICD10: J45.21 (primary diagnosis) -Patient reports flareup of asthma for the past few days. She ran out of her inhaler. -Refill albuterol inhaler. If inhaler does not help with wheezing, may start prednisone taper. 2. Eustachian tube dysfunction, bilateral - ICD9: 381.81, ICD10: H69.93 -Rx for Flonase. -Rx for Zyrtec. -Recently treated for sinusitis with Augmentin, no signs of otitis media on exam. -Follow-up if no improvement. Diagnosis and treatment plan were discussed and questions were answered to the patient's satisfaction. Pt acknowledged understanding of concepts and follow up plan. Specific signs and symptoms that would indicate the need for higher level of care were discussed in detail warranting prompt ER evaluation. ZAKI Conway documented in this encounter [facility] 06-02-2023 Note HNO ID: [id number] Author: MARY EUBANKS PA Service: ? Author Type: Physician Boilermaker Loftsman Type: Progress Notes Filed: 06/02/2023 15:28 Note Text: This note was created using [employer]. Subjective Chana De La O is a 22 year old female. HPI 22-year-old female presents for cough, congestion for about a month. Patient states that a month ago she started getting nasal congestion. She states she now has sinus pressure and sinus pain as well as headaches. She states that she has a cough that started in the past few weeks. She is occasionally coughing up some phlegm. She does have history of asthma. She has been using her inhaler. States she has had to increase inhaler use slightly. She denies any chest pain or shortness of breath. No sick contacts. No vomiting or diarrhea. She has been using [id number] cough and cold medication with minimal improvement. No other complaint. PAST MEDICAL HISTORY Diagnosis Date ADHD (attention deficit hyperactivity disorder) Anemia Asthma Gastroparesis IBS (irritable bowel syndrome) PCOS (polycystic ovarian syndrome) Placental abruption in third trimester 12/27/2022 Reactive airway disease inhaler use with URIs PAST SURGICAL HISTORY Procedure Laterality Date DANDC SUCTION 08/31/2021 Retained POC after 08/11/21 vaginal delivery REMOVAL GALLBLADDER REMOVE TONSILS/ADENOIDS,12+ Y/O 2018 SALPINGECTOMY Bilateral 03/04/2023 ALLERGIES Seasonal Allergies MEDICATIONS albuterol HFA (PROVENTIL HFA, VENTOLIN HFA) 90 mcg/actuation inhaler Inhale 2 Puffs as instructed every 4 hours as needed for wheezing/shortness of breath. ferrous sulfate 325 mg (65 mg iron) tablet Take by mouth. albuterol HFA (PROAIR HFA) 90 mcg/actuation inhaler Inhale 2 Puffs as instructed every 6 hours as needed. benzonatate (TESSALON PERLE) 100 mg capsule Take 1 capsule by mouth three times a day as needed for cough. predniSONE (DELTASONE) 20 mg tablet Take 2 tablets by mouth once daily for 4 days. Take daily with food. amoxicillin-clavulanate potassium (AUGMENTIN) 875-125 mg per tablet Take 1 tablet by mouth two times a day for 7 days. ondansetron (ZOFRAN) 8 mg tablet Take by mouth three times a day as needed. (Patient not taking: Reported on 05/10/2023) prochlorperazine (COMPAZINE) 10 mg tablet Take 10 mg by mouth once daily. (Patient not taking: Reported on 05/10/2023) vit/iron fum/folic ac ( 1 + 1 ORAL) Take by mouth. (Patient not taking: Reported on 11/15/2022) ondansetron orally disintegrating (ZOFRAN ODT) 4 mg disintegrating tablet TAKE 2 TABLETS BY MOUTH EVERY 8 HOURS NEEDED FOR NAUSEA (Patient not taking: Reported on 05/10/2023) FAMILY HISTORY Problem Relation Age of Onset No Known Problems Mother Diabetes Father No Known Problems Sister Breast Cancer Maternal Grandmother Obstructive Sleep Apnea Maternal Grandfather Diabetes Paternal Grandfather No Known Problems Half-brother No Known Problems Daughter Social History Tobacco Use Smoking status: Former Years: 8 Types: Cigarettes Quit date: 11/08/2022 Years since quittin.5 Passive exposure: Past Smokeless tobacco: Never Tobacco comments: vape Vaping Use Vaping Use: Some days Substances: Nicotine Substance Use Topics Alcohol use: Never Drug use: Not Currently Types: Marijuana Review of Systems Constitutional: Negative for chills and fever. HENT: Positive for congestion, ear pain, sinus pressure and sinus pain. Negative for sore throat. Respiratory: Positive for cough. Negative for shortness of breath. Cardiovascular: Negative for chest pain. Gastrointestinal: Negative for diarrhea and vomiting. Neurological: Positive for headaches. Objective BP 104/70 Pulse 82 Temp 36.9 ?C (98.5 ?F) Resp 18 Wt 99 kg (218 lb 4.1 oz) LMP 05/10/2023 (Approximate) SpO2 98% No BMI 36.32 kg/m? Physical Exam Vitals and nursing note reviewed. Constitutional: General: She is not in acute distress. Appearance: Normal appearance. She is not toxic-appearing. HENT: Right Ear: Ear canal normal. A middle ear effusion is present. Left Ear: Ear canal normal. A middle ear effusion is present. Nose: Mucosal edema and congestion present. Right Sinus: Maxillary sinus tenderness present. Left Sinus: Maxillary sinus tenderness present. Mouth/Throat: Mouth: Mucous membranes are moist. Pharynx: No oropharyngeal exudate or posterior oropharyngeal erythema. Eyes: Conjunctiva/sclera: Conjunctivae normal. Cardiovascular: Rate and Rhythm: Normal rate and regular rhythm. Pulmonary: Effort: Pulmonary effort is normal. Breath sounds: Normal breath sounds. No wheezing, rhonchi or rales. Neurological: Mental Status: She is alert. Assessment and Plan ASSESSMENT/PLAN: 1. Sinobronchitis - ICD9: 473.9, 490, ICD10: J32.9, J40 - Will begin treatment with Augmentin 875 mg PO BID for 7 days -History of asthma. Has had to increas (more content not included)... [facility] 06-02-2023 History of Presen t illness Narrative This note was created using [employer]. Subjective Chana De La O is a 22 year old female. HPI 22-year-old female presents for cough, congestion for about a month. Patient states that a month ago she started getting nasal congestion. She states she now has sinus pressure and sinus pain as well as headaches. She states that she has a cough that started in the past few weeks. She is occasionally coughing up some phlegm. She does have history of asthma. She has been using her inhaler. States she has had to increase inhaler use slightly. She denies any chest pain or shortness of breath. No sick contacts. No vomiting or diarrhea. She has been using [id number] cough and cold medication with minimal improvement. No other complaint. PAST MEDICAL HISTORY Diagnosis Date ADHD (attention deficit hyperactivity disorder) Anemia Asthma Gastroparesis IBS (irritable bowel syndrome) PCOS (polycystic ovarian syndrome) Placental abruption in third trimester 12/27/2022 Reactive airway disease inhaler use with URIs PAST SURGICAL HISTORY Procedure Laterality Date D&C SUCTION 08/31/2021 Retained POC after 08/11/21 vaginal delivery REMOVAL GALLBLADDER REMOVE TONSILS/ADENOIDS,12+ Y/O 2018 SALPINGECTOMY Bilateral 03/04/2023 ALLERGIES Seasonal Allergies MEDICATIONS albuterol HFA (PROVENTIL HFA, VENTOLIN HFA) 90 mcg/actuation inhaler Inhale 2 Puffs as instructed every 4 hours as needed for wheezing/shortness of breath. ferrous sulfate 325 mg (65 mg iron) tablet Take by mouth. albuterol HFA (PROAIR HFA) 90 mcg/actuation inhaler Inhale 2 Puffs as instructed every 6 hours as needed. benzonatate (TESSALON PERLE) 100 mg capsule Take 1 capsule by mouth three times a day as needed for cough. predniSONE (DELTASONE) 20 mg tablet Take 2 tablets by mouth once daily for 4 days. Take daily with food. amoxicillin-clavulanate potassium (AUGMENTIN) 875-125 mg per tablet Take 1 tablet by mouth two times a day for 7 days. ondansetron (ZOFRAN) 8 mg tablet Take by mouth three times a day as needed. (Patient not taking: Reported on 05/10/2023) prochlorperazine (COMPAZINE) 10 mg tablet Take 10 mg by mouth once daily. (Patient not taking: Reported on 05/10/2023) vit/iron fum/folic ac ( 1 + 1 ORAL) Take by mouth. (Patient not taking: Reported on 11/15/2022) ondansetron orally disintegrating (ZOFRAN ODT) 4 mg disintegrating tablet TAKE 2 TABLETS BY MOUTH EVERY 8 HOURS NEEDED FOR NAUSEA (Patient not taking: Reported on 05/10/2023) FAMILY HISTORY Problem Relation Age of Onset No Known Problems Mother Diabetes Father No Known Problems Sister Breast Cancer Maternal Grandmother Obstructive Sleep Apnea Maternal Grandfather Diabetes Paternal Grandfather No Known Problems Half-brother No Known Problems Daughter Social History Tobacco Use Smoking status: Former Years: 8 Types: Cigarettes Quit date: 11/08/2022 Years since quittin.5 Passive exposure: Past Smokeless tobacco: Never Tobacco comments: vape Vaping Use Vaping Use: Some days Substances: Nicotine Substance Use Topics Alcohol use: Never Drug use: Not Currently Types: Marijuana Review of Systems Constitutional: Negative for chills and fever. HENT: Positive for congestion, ear pain, sinus pressure and sinus pain. Negative for sore throat. Respiratory: Positive for cough. Negative for shortness of breath. Cardiovascular: Negative for chest pain. Gastrointestinal: Negative for diarrhea and vomiting. Neurological: Positive for headaches. Objective BP 104/70 Pulse 82 Temp 36.9 C (98.5 F) Resp 18 Wt 99 kg (218 lb 4.1 oz) LMP 05/10/2023 (Approximate) SpO2 98% No BMI 36.32 kg/m Physical Exam Vitals and nursing note reviewed. Constitutional: General: She is not in acute distress. Appearance: Normal appearance. She is not toxic-appearing. HENT: Right Ear: Ear canal normal. A middle ear effusion is present. Left Ear: Ear canal normal. A middle ear effusion is present. Nose: Mucosal edema and congestion present. Right Sinus: Maxillary sinus tenderness present. Left Sinus: Maxillary sinus tenderness present. Mouth/Throat: Mouth: Mucous membranes are moist. Pharynx: No oropharyngeal exudate or posterior oropharyngeal erythema. Eyes: Conjunctiva/sclera: Conjunctivae normal. Cardiovascular: Rate and Rhythm: Normal rate and regular rhythm. Pulmonary: Effort: Pulmonary effort is normal. Breath sounds: Normal breath sounds. No wheezing, rhonchi or rales. Neurological: Mental Status: She is alert. Assessment and Plan ASSESSMENT/PLAN: 1. Sinobronchitis - ICD9: 473.9, 490, ICD10: J32.9, J40 - Will begin treatment with Augmentin 875 mg PO BID for 7 days -History of asthma. Has had to increase inhaler use due to increase in wheezing. Will give Rx for prednisone. -Continue inhalers. -Rx for Tessalon Perles. - Supportive care with plenty of fluids, rest, and analgesia prn. Diagnosis and treatment plan were discussed and questions were answered to the patient's satisfaction. Pt acknowledged understanding of concepts and follow up plan. Specific signs and symptoms that would indicate the need for higher level of care were discussed in detail warranting prompt ER evaluation. ZAKI Conway documented in this encounter [facility] 05-10-2023 Note HNO ID: [id number] Author: SONY HINSON PA-C Service: ? Author Type: Physician Boilermaker Loftsman Type: Progress Notes Filed: 05/10/2023 17:12 Note Text: This note was created using [employer]. Subjective Chana De La O is a 22 year old female. HPI Presents with a chief complaint of cough, congestion over the past week. She has had a sore throat as well. Her daughter has had URI symptoms as well. No fever. No trouble breathing or wheezing. She does have a history of asthma. No diarrhea. She states she has chronic problems with vomiting, that has not changed recently. Review of Systems Constitutional: Negative. HENT: Positive for congestion, ear pain, rhinorrhea and sore throat. Negative for sinus pressure and sinus pain. Respiratory: Positive for cough. Negative for shortness of breath and wheezing. Cardiovascular: Negative. Gastrointestinal: Negative. Genitourinary: Negative. Musculoskeletal: Negative. All other systems reviewed and are negative. PAST MEDICAL HISTORY Diagnosis Date ADHD (attention deficit hyperactivity disorder) Anemia Asthma Gastroparesis IBS (irritable bowel syndrome) PCOS (polycystic ovarian syndrome) Placental abruption in third trimester 12/27/2022 Reactive airway disease inhaler use with URIs Current Outpatient Medications Medication Sig Dispense Refill albuterol HFA (PROVENTIL HFA, VENTOLIN HFA) 90 mcg/actuation inhaler Inhale 2 Puffs as instructed every 4 hours as needed for wheezing/shortness of breath. 8 g 0 ferrous sulfate 325 mg (65 mg iron) tablet Take by mouth. albuterol HFA (PROAIR HFA) 90 mcg/actuation inhaler Inhale 2 Puffs as instructed every 6 hours as needed. 18 g 0 Zcyeqiqdaprsexa-Zgvzxaybj-WR (BROMFED DM) 2-30-10 mg/5 mL syrup Take 10 mL by mouth four times a day as needed. 200 mL 0 predniSONE (DELTASONE) 10 mg tablet Take 4 tabs daily for 3 days, then 2 tabs daily for 3 days, then 1 tab daily for 3 days with food. (Patient not taking: Reported on 05/10/2023) 21 tablet 0 ondansetron (ZOFRAN) 8 mg tablet Take by mouth three times a day as needed. (Patient not taking: Reported on 05/10/2023) prochlorperazine (COMPAZINE) 10 mg tablet Take 10 mg by mouth once daily. (Patient not taking: Reported on 05/10/2023) vit/iron fum/folic ac ( 1 + 1 ORAL) Take by mouth. (Patient not taking: Reported on 11/15/2022) ondansetron orally disintegrating (ZOFRAN ODT) 4 mg disintegrating tablet TAKE 2 TABLETS BY MOUTH EVERY 8 HOURS NEEDED FOR NAUSEA (Patient not taking: Reported on 05/10/2023) No current facility-administered medications for this visit. PAST SURGICAL HISTORY Procedure Laterality Date DANDC SUCTION 08/31/2021 Retained POC after 08/11/21 vaginal delivery REMOVAL GALLBLADDER REMOVE TONSILS/ADENOIDS,12+ Y/O 2018 SALPINGECTOMY Bilateral 03/04/2023 FAMILY HISTORY Problem Relation Age of Onset No Known Problems Mother Diabetes Father No Known Problems Sister Breast Cancer Maternal Grandmother Obstructive Sleep Apnea Maternal Grandfather Diabetes Paternal Grandfather No Known Problems Half-brother No Known Problems Daughter Social History Tobacco Use Smoking status: Former Years: 8 Types: Cigarettes Quit date: 11/08/2022 Years since quittin.5 Passive exposure: Past Smokeless tobacco: Never Tobacco comments: vape Vaping Use Vaping Use: Some days Substances: Nicotine Substance Use Topics Alcohol use: Never Drug use: Not Currently Types: Marijuana Objective BP 102/72 Pulse 86 Temp 36.6 ?C (97.9 ?F) (Tympanic) Resp 18 Wt 97 kg (213 lb 13.5 oz) LMP 03/23/2022 (Approximate) SpO2 98% BMI 35.59 kg/m? Physical Exam Vitals reviewed. Constitutional: Appearance: Normal appearance. HENT: Head: Normocephalic and atraumatic. Right Ear: Tympanic membrane, ear canal and external ear normal. Left Ear: Tympanic membrane, ear canal and external ear normal. Nose: Congestion present. Mouth/Throat: Mouth: Mucous membranes are moist. Pharynx: Oropharynx is clear. Cardiovascular: Rate and Rhythm: Normal rate and regular rhythm. Heart sounds: Normal heart sounds. Pulmonary: Effort: Pulmonary effort is normal. Breath sounds: Normal breath sounds. Musculoskeletal: Cervical back: Neck supple. Skin: General: Skin is warm and dry. Findings: No rash. Neurological: Mental Status: She is alert. Assessment and Plan ASSESSMENT/PLAN: 1. URI, acute - ICD9: 465.9, ICD10: J06.9 - Discussed viral etiology and rationale for treatment. Bromfed sent for symptoms. - Group A strep molecular testing negative - Symptomatic treatment with prn analgesia - Supportive care with fluids and rest - Follow up in 3-5 days if symptoms persist or sooner if worsening of symptoms Sony Hinson PA-C [facility] 05-10-2023 History of Presen t illness Narrative This note was created using [employer]. Subjective Chana De La O is a 22 year old female. HPI Presents with a chief complaint of cough, congestion over the past week. She has had a sore throat as well. Her daughter has had URI symptoms as well. No fever. No trouble breathing or wheezing. She does have a history of asthma. No diarrhea. She states she has chronic problems with vomiting, that has not changed recently. Review of Systems Constitutional: Negative. HENT: Positive for congestion, ear pain, rhinorrhea and sore throat. Negative for sinus pressure and sinus pain. Respiratory: Positive for cough. Negative for shortness of breath and wheezing. Cardiovascular: Negative. Gastrointestinal: Negative. Genitourinary: Negative. Musculoskeletal: Negative. All other systems reviewed and are negative. PAST MEDICAL HISTORY Diagnosis Date ADHD (attention deficit hyperactivity disorder) Anemia Asthma Gastroparesis IBS (irritable bowel syndrome) PCOS (polycystic ovarian syndrome) Placental abruption in third trimester 12/27/2022 Reactive airway disease inhaler use with URIs Current Outpatient Medications Medication Sig Dispense Refill albuterol HFA (PROVENTIL HFA, VENTOLIN HFA) 90 mcg/actuation inhaler Inhale 2 Puffs as instructed every 4 hours as needed for wheezing/shortness of breath. 8 g 0 ferrous sulfate 325 mg (65 mg iron) tablet Take by mouth. albuterol HFA (PROAIR HFA) 90 mcg/actuation inhaler Inhale 2 Puffs as instructed every 6 hours as needed. 18 g 0 Zbodaseeqaiumax-Kkvvdoxfe-KC (BROMFED DM) 2-30-10 mg/5 mL syrup Take 10 mL by mouth four times a day as needed. 200 mL 0 predniSONE (DELTASONE) 10 mg tablet Take 4 tabs daily for 3 days, then 2 tabs daily for 3 days, then 1 tab daily for 3 days with food. (Patient not taking: Reported on 05/10/2023) 21 tablet 0 ondansetron (ZOFRAN) 8 mg tablet Take by mouth three times a day as needed. (Patient not taking: Reported on 05/10/2023) prochlorperazine (COMPAZINE) 10 mg tablet Take 10 mg by mouth once daily. (Patient not taking: Reported on 05/10/2023) vit/iron fum/folic ac ( 1 + 1 ORAL) Take by mouth. (Patient not taking: Reported on 11/15/2022) ondansetron orally disintegrating (ZOFRAN ODT) 4 mg disintegrating tablet TAKE 2 TABLETS BY MOUTH EVERY 8 HOURS NEEDED FOR NAUSEA (Patient not taking: Reported on 05/10/2023) No current facility-administered medications for this visit. PAST SURGICAL HISTORY Procedure Laterality Date D&C SUCTION 08/31/2021 Retained POC after 08/11/21 vaginal delivery REMOVAL GALLBLADDER REMOVE TONSILS/ADENOIDS,12+ Y/O 2018 SALPINGECTOMY Bilateral 03/04/2023 FAMILY HISTORY Problem Relation Age of Onset No Known Problems Mother Diabetes Father No Known Problems Sister Breast Cancer Maternal Grandmother Obstructive Sleep Apnea Maternal Grandfather Diabetes Paternal Grandfather No Known Problems Half-brother No Known Problems Daughter Social History Tobacco Use Smoking status: Former Years: 8 Types: Cigarettes Quit date: 11/08/2022 Years since quittin.5 Passive exposure: Past Smokeless tobacco: Never Tobacco comments: vape Vaping Use Vaping Use: Some days Substances: Nicotine Substance Use Topics Alcohol use: Never Drug use: Not Currently Types: Marijuana Objective BP 102/72 Pulse 86 Temp 36.6 C (97.9 F) (Tympanic) Resp 18 Wt 97 kg (213 lb 13.5 oz) LMP 03/23/2022 (Approximate) SpO2 98% BMI 35.59 kg/m Physical Exam Vitals reviewed. Constitutional: Appearance: Normal appearance. HENT: Head: Normocephalic and atraumatic. Right Ear: Tympanic membrane, ear canal and external ear normal. Left Ear: Tympanic membrane, ear canal and external ear normal. Nose: Congestion present. Mouth/Throat: Mouth: Mucous membranes are moist. Pharynx: Oropharynx is clear. Cardiovascular: Rate and Rhythm: Normal rate and regular rhythm. Heart sounds: Normal heart sounds. Pulmonary: Effort: Pulmonary effort is normal. Breath sounds: Normal breath sounds. Musculoskeletal: Cervical back: Neck supple. Skin: General: Skin is warm and dry. Findings: No rash. Neurological: Mental Status: She is alert. Assessment and Plan ASSESSMENT/PLAN: 1. URI, acute - ICD9: 465.9, ICD10: J06.9 - Discussed viral etiology and rationale for treatment. Bromfed sent for symptoms. - Group A strep molecular testing negative - Symptomatic treatment with prn analgesia - Supportive care with fluids and rest - Follow up in 3-5 days if symptoms persist or sooner if worsening of symptoms Sony Hinson PA-C documented in this encounter [facility] 03-12-2023 Note HNO ID: [id number] Author: ANSLEY CHEN APRN.[employer]ERTER Service: ? Author Type: Nurse Practitioner Type: Progress Notes Filed: 03/12/2023 14:21 Note Text: This note was created using [employer]. Subjective Chana De La O is a [...] tube. No hemotymp (more content not included)... [facility] 02-23-2023 Note HNO ID: [id number] Author: ANGELINE CARRANZA MD Service: ? Author Type: Physician Type: Progress Notes Filed: 02/23/2023 11:03 Note Text: Chief Nurse Executive offered: Patient declines. VISIT Chana De La O is a 22 year old year old here for visit. Delivery Summary: 01/18/2023 Female Avelyn 4lb 15 oz ROS/ Recovery: Feeding: Bottle feeding problems: None Menses since delivery: none Menstrual pattern prior to : Regular periods [place] since delivery: Resumed Depression: denies symptoms of [...] external genitalia normal, normal Bartholin's glands, urethra, [place]'s glands, no vulvar lesions, no cervical lesions, [...] today for salpingectomy Angeline Del Castillo MD [facility] 02-09-2023 Miscellaneous Notes Patient notified. Agreeable to appointment change. Cancelled her visit on 02/28. Stephanie Boateng, RN Left message to call office. Patient is scheduled for surgery 03/04/2023 at [facility]. Please ask patient if she can come in for appointment and pre-op appointment on 02/23/2023 at 9:50 am. Patient has an appointment scheduled on 02/28 for a visit but only a 10 min appt. and will need at least 20 min for both documented in this encounter [facility] 01-26-2023 Note HNO ID: [id number] Author: Angeline Carranza MD Service: ? Author [...] issues Sleep: no sleep concerns, feels rested [place] since delivery: Not resumed Emotional support: Yes [...] and as needed Angeline Del Castillo MD [facility] 01-19-2023 Note HNO ID: [id number] Author: Stephanie Boateng RN Service: ? Author Type: Registered Nurse Type: Progress Notes Filed: 01/19/2023 8:29 AM Note Text: Patient delivered via at [facility] on 01/18/23 per Ansley Ibrahim CNM. See OB Outcome note. Stephanie Boateng RN [facility] 01-19-2023 History of Presen t illness Narrative Patient delivered via at [facility] on 01/18/23 per Ansley Ibrahim CNM. See OB Outcome note. Stephanie Boateng RN documented in this encounter [facility] 01-17-2023 Miscellaneous Notes RR- VB No. LOF No. CTXS irreg Movement: present. Other c/o: abdominal pain that is normal for her even prepregnancy Medication list reviewed. Physical Exam See Flow Sheet Abd: soft, nontender, gravid Ext: edema: Trace A/P 37w5d Estimated Date of Delivery: 02/02/23 r/ba to induction for IUGR reviewed, questions answered, consent signed. [facility] 09/14 today. . Mayito Granados M.D. documented in this encounter [facility] 01-17-2023 Instructions Danitza Hunter MA - 01/17/2023 12:09 PM EST SEQUENTIAL SCREENINGS The [facility] offers sequential screenings for women [...] It will require an appointment with our thermoplastic technician. This is not an ultrasound performed [...] the above symptoms, contact our office at [phone] and ask to speak with a nurse. After hours, you can call doctors registry at [phone] OR call [facility] at [phone] and ask to have the doctor centralized traffic control operator paged. If you consider this an emergency, dial [phone]- or go to your nearest emergency department. NEED HELP? Are you dealing with a violent or abusive relationship? Are you a victim of rape or sexual assult? Call [facility] ([place]) 24 hour Crisis Hotline: 432.132.9108 or 642-210-7737. MANUAL Your Guide to a Healthy manual is now on-line. Visit [email or web address] [email or web address] to download your free copy documented in this encounter [facility] 01-13-2023 Note HNO ID: [id number] Author: Stephen Pretty MD Service: ? Author [...] None Interpretation: Reactive SIGNATURE: Stephen Pretty MD [facility] 01-13-2023 History of Presen t illness Narrative [...] Stephen Pretty MD documented in this encounter [facility] 01-13-2023 Miscellaneous Notes KJ - VB No. LOF No. CTXS [...] Stephen Pretty MD documented in this encounter [facility] 01-13-2023 Instructions Danitza Hunter MA - 01/13/2023 10:46 AM EST SEQUENTIAL SCREENINGS The [facility] offers sequential screenings for women [...] It will require an appointment with our thermoplastic technician. This is not an ultrasound performed [...] the above symptoms, contact our office at [phone] and ask to speak with a nurse. After hours, you can call doctors registry at [phone] OR call [facility] at [phone] and ask to have the doctor centralized traffic control operator paged. If you consider this an emergency, dial 9-5-4 or go to your nearest emergency department. NEED HELP? Are you dealing with a violent or abusive relationship? Are you a victim of rape or sexual assult? Call [facility] ([place]) 24 hour Crisis Hotline: 207.121.2521 or 727-130-5847. MANUAL Your Guide to a Healthy manual is now on-line. Visit [email or web address] [email or web address] to download your free copy documented in this encounter [facility] 01-11-2023 Miscellaneous Notes noted and that is an option. Thanks. [...] Mayito Granados MD documented in this encounter [facility] 01-10-2023 Note HNO ID: [id number] Author: Mayito Granados MD Service: ? Author [...] I and Reactive SIGNATURE: Mayito Granados MD [facility] 01-10-2023 History of Presen t illness Narrative [...] Mayito Granados MD documented in this encounter [facility] 01-10-2023 Miscellaneous Notes NST only Mayito Granados MD documented in this encounter [facility] 01-05-2023 Miscellaneous Notes Chana De La O is a 22 [...] Danni Reynolds APRN.CNM documented in this encounter [facility] 01-05-2023 Instructions Trista Brown LPN - 01/05/2023 2:41 PM EST SEQUENTIAL SCREENINGS The [facility] offers sequential screenings for women [...] It will require an appointment with our thermoplastic technician. This is not an ultrasound performed [...] the above symptoms, contact our office at [phone] and ask to speak with a nurse. After hours, you can call doctors registry at [phone] OR call [facility] at [phone] and ask to have the doctor centralized traffic control operator paged. If you consider this an emergency, dial 9-3-7 or go to your nearest emergency department. NEED HELP? Are you dealing with a violent or abusive relationship? Are you a victim of rape or sexual assult? Call [facility] ([place]) 24 hour Crisis Hotline: 884.960.7865 or 515-155-7565. MANUAL Your Guide to a Healthy manual is now on-line. Visit [email or web address] [email or web address] to download your free copy documented in this encounter [facility] 11-24-2023 Note HNO ID: [id number] Author: Angeline Carranza MD Service: ? Author [...] and Reactive SIGNATURE: Angeline Del Castillo MD [facility] 12-31-2022 History of Presen t illness Narrative [...] Del Castillo MD documented in this encounter [facility] 12-31-2022 Miscellaneous Notes NST only. documented in this encounter [facility] 12-31-2022 Cindy Paige Ma - 12/31/2022 2:56 PM EST SEQUENTIAL SCREENINGS The [facility] offers sequential screenings for women [...] It will require an appointment with our thermoplastic technician. This is not an ultrasound performed [...] the above symptoms, contact our office at [phone] and ask to speak with a nurse. After hours, you can call doctors registry at [phone] OR call [facility] at [phone] and ask to have the doctor centralized traffic control operator paged. If you consider this an emergency, dial 0-8-3 or go to your nearest emergency department. NEED HELP? Are you dealing with a violent or abusive relationship? Are you a victim of rape or sexual assult? Call [facility] ([place]) 24 hour Crisis Hotline: 624.724.5105 or 929-768-9023. MANUAL Your Guide to a Healthy manual is now on-line. Visit [email or web address] [email or web address] to download your free copy documented in this encounter [facility] 12-28-2022 History of Past i llness Narrative Problem Noted Date Diagnosed Date Resolved Date [...] 1. Continued obstetrical care with her primary curriculum and instruction director is recommended. 2. Follow up q2 weeks to evaluate biometric parameters and q4 weeks to evaluate anatomy. These are planned with the [facility]. 3. surveillance as follows: twice weekly BPP with weekly UA Doppler assessment. These are planned with the [facility](BPP)/ her primary curriculum and instruction director(BPP or NST). 4. consultation with Neonatology has [...] of this encounter (statuses as of 12/28/2022) [facility] History of Past illness Narrative* [...] 1. Continued obstetrical care with her primary curriculum and instruction director is recommended. 2. Follow up q2 weeks to evaluate biometric parameters and q4 weeks to evaluate anatomy. These are planned with the [facility]. 3. surveillance as follows: twice weekly BPP with weekly UA Doppler assessment. These are planned with the [facility](BPP)/ her primary curriculum and instruction director(BPP or NST). 4. consultation with Neonatology has [...] of this encounter (statuses as of 12/28/2022) [facility] of Past illness Narrative* [...] 1. Continued obstetrical care with her primary curriculum and instruction director is recommended. 2. Follow up q2 weeks to evaluate biometric parameters and q4 weeks to evaluate anatomy. These are planned with the [facility]. 3. surveillance as follows: twice weekly BPP with weekly UA Doppler assessment. These are planned with the [facility](BPP)/ her primary curriculum and instruction director(BPP or NST). 4. consultation with Neonatology has [...] of this encounter (statuses as of 12/31/2022) [facility] of Past illness Narrative* [...] 1. Continued obstetrical care with her primary curriculum and instruction director is recommended. 2. Follow up q2 weeks to evaluate biometric parameters and q4 weeks to evaluate anatomy. These are planned with the [facility]. 3. surveillance as follows: twice weekly BPP with weekly UA Doppler assessment. These are planned with the [facility](BPP)/ her primary curriculum and instruction director(BPP or NST). 4. consultation with Neonatology has [...] of this encounter (statuses as of 01/06/2023) [facility] of Past illness Narrative* [...] 1. Continued obstetrical care with her primary curriculum and instruction director is recommended. 2. Follow up q2 weeks to evaluate biometric parameters and q4 weeks to evaluate anatomy. These are planned with the [facility]. 3. surveillance as follows: twice weekly BPP with weekly UA Doppler assessment. These are planned with the [facility](BPP)/ her primary curriculum and instruction director(BPP or NST). 4. consultation with Neonatology has [...] of this encounter (statuses as of 01/06/2023) [facility] of Past illness Narrative* [...] 1. Continued obstetrical care with her primary curriculum and instruction director is recommended. 2. Follow up q2 weeks to evaluate biometric parameters and q4 weeks to evaluate anatomy. These are planned with the [facility]. 3. surveillance as follows: twice weekly BPP with weekly UA Doppler assessment. These are planned with the [facility](BPP)/ her primary curriculum and instruction director(BPP or NST). 4. consultation with Neonatology has [...] of this encounter (statuses as of 01/10/2023) [facility] of Past illness Narrative* [...] = 8/8 9. Normal female genitalia. [facility] Plan of Care Diagnosis: Early growth restriction (AC <10th percentile). Declined aneuploidy screening, maternal infectious serologies, and invasive testing. Plan: 1. Continued obstetrical care with her primary curriculum and instruction director is recommended. 2. Follow up q2 weeks to evaluate biometric parameters and q4 weeks to evaluate anatomy. These are planned with the [facility]. 3. surveillance as follows: twice weekly BPP with weekly UA Doppler assessment. These are planned with the [facility](P)/ her primary curriculum and instruction director(BPP or NST). 4. consultation with Neonatology has [...] of this encounter (statuses as of 01/11/2023) [facility] of Past illness Narrative* [...] BPP = 8/8 9. Normal female genitalia. [facility] Plan of Care Diagnosis: Early growth restriction (AC <10th percentile). Declined aneuploidy screening, maternal infectious serologies, and invasive testing. Plan: 1. Continued obstetrical care with her primary curriculum and instruction director is recommended. 2. Follow up q2 weeks to evaluate biometric parameters and q4 weeks to evaluate anatomy. These are planned with the [facility]. 3. surveillance as follows: twice weekly BPP with weekly UA Doppler assessment. These are planned with the [facility](BPP)/ her primary curriculum and instruction director(BPP or NST). 4. consultation with Neonatology has [...] of this encounter (statuses as of 01/11/2023) [facility] of Past illness Narrative* [...] 1. Continued obstetrical care with her primary curriculum and instruction director is recommended. 2. Follow up q2 weeks to evaluate biometric parameters and q4 weeks to evaluate anatomy. These are planned with the [facility]. 3. surveillance as follows: twice weekly BPP with weekly UA Doppler assessment. These are planned with the [facility](BPP)/ her primary curriculum and instruction director(BPP or NST). 4. consultation with Neonatology has [...] of this encounter (statuses as of 01/13/2023) [facility] of Past illness Narrative* [...] BPP = 8/8 9. Normal female genitalia. [facility] Plan of Care Diagnosis: Early growth restriction (AC <10th percentile). Declined aneuploidy screening, maternal infectious serologies, and invasive testing. Plan: 1. Continued obstetrical care with her primary curriculum and instruction director is recommended. 2. Follow up q2 weeks to evaluate biometric parameters and q4 weeks to evaluate anatomy. These are planned with the [facility]. 3. surveillance as follows: twice weekly BPP with weekly UA Doppler assessment. These are planned with the [facility](BPP)/ her primary curriculum and instruction director(BPP or NST). 4. consultation with Neonatology has [...] of this encounter (statuses as of 01/18/2023) [facility] of Past illness Narrative* [...] 1. Continued obstetrical care with her primary curriculum and instruction director is recommended. 2. Follow up q2 weeks to evaluate biometric parameters and q4 weeks to evaluate anatomy. These are planned with the [facility]. 3. surveillance as follows: twice weekly BPP with weekly UA Doppler assessment. These are planned with the [facility](BPP)/ her primary curriculum and instruction director(BPP or NST). 4. consultation with Neonatology has [...] of this encounter (statuses as of 01/19/2023) [facility] of Past illness Narrative* [...] BPP = 8/8 9. Normal female genitalia. [facility] Plan of Care Diagnosis: Early growth restriction (AC <10th percentile). Declined aneuploidy screening, maternal infectious serologies, and invasive testing. Plan: 1. Continued obstetrical care with her primary curriculum and instruction director is recommended. 2. Follow up q2 weeks to evaluate biometric parameters and q4 weeks to evaluate anatomy. These are planned with the [facility]. 3. surveillance as follows: twice weekly BPP with weekly UA Doppler assessment. These are planned with the [facility](P)/ her primary curriculum and instruction director(BPP or NST). 4. consultation with Neonatology has [...] of this encounter (statuses as of 03/28/2023) [facility] of Past illness Narrative* [...] Nausea and vomiting 06/18/2022 12/29/19 23 Overview: 10/9/2023Patient is complaining of nausea and occasional vomiting [...] 1. Continued obstetrical care with her primary curriculum and instruction director is recommended. 2. Follow up q2 weeks to evaluate biometric parameters and q4 weeks to evaluate anatomy. These are planned with the [facility]. 3. surveillance as follows: twice weekly BPP with weekly UA Doppler assessment. These are planned with the [facility](BPP)/ her primary curriculum and instruction director(BPP or NST). 4. consultation with Neonatology has [...] as of this encounter (statuses as of 05/11/2023) [facility] NoteHNO ID: [id number] Author: Rudolph Ralph MD Service: ? Author [...] O DATE: December 28, 2022 TIME: 10:28 [facility]11-21-2023 History of Present illness Narrative* Rudolph Ralph [...] consult secondary to IUGR. Recently discharged from [facility] for vaginal bleeding in 3rd trimester. I [...] antepartum 11/15/2022 Overview Note: - Transfer from [place] to [place]. records added by [facility] Gastroparesis 11/15/2022 Overview [...] 2022 TIME: 9:20 AM [facility] NoteHNO ID: [id number] Author: Ansley Ibrahim APRN.CNM Service: ? Author Type: Extruder Type: Progress Notes Filed: 12/28/2022 10:22 AM Note Text: BERTHA-NST SUMMARY PROVIDER ASSESSMENT AND INTERPRETATION Chana De La O is a 22 year old female, , who is at 34w6d with an CHAN of 02/02/2023, by Ultrasound dating method. Indications for NST: Obesity Baseline: 130 Variability: Moderate Accelerations: Present 15 X 15 Decelerations: Variable Contractions: TOCO: None Interpretation: Reactive SIGNATURE: Ansley Ibrahim APRN.CN[facility] History of Present illness Narrative* [...] SIGNATURE: Ansley Ibrahim APRN.CNM [facility] Miscellaneous Notes* Quick Notes - Ansley Ibrahim APRN.CNM - 12/28/2022 10:20 AM EST BERTHA-NST only. PN visit end of week. Ansley Ibrahim APRN.CNM [facility]23 NoteHNO ID: [id number] Author: Rudolph Ralph MD Service: ? Author [...] consult secondary to IUGR. Recently discharged from [facility] for vaginal bleeding in 3rd trimester. I [...] antepartum 11/15/2022 Overview Note: - Transfer from [place] to [place]. records added by [facility] Gastroparesis 11/15/2022 Overview Note: - Diagnosed with gastroparesis in September 28 after gallbladder surgery. - Sees GI - Managed with diet alterations. No medications History of depression 11/15/2022 Overview Note: - Hx of Suicidal attempt as a teenager - Denies any history of depression - No meds currently - Mood stable, no SI/HI Engages in mady (more content not included)...[facility] 12-27-2022 NoteHNO ID: [id number] Author: Courtney Gipson MD Service: Obstetrics Author Type: Physician Type: Procedures Filed: 12/27/2022 1:11 PM Note Text: OBSTETRICS NST SUMMARY SERVICE DATE: December 27, 2022 The patient is a 22 year old female, , who is at 34w5d with an CHAN of 02/02/2023, by Ultrasound dating method. NST OBJECTIVE FINDINGS PER NURSE: Start Time: 728 (12/27/22799 : Katherine Mabry, RN) Complete Time: 799 (12/27/22799 : Katherine Mabry, RN) Indications: Other: Comment (previous vag bleed) (12/27/22799 : Katherine Mabry, RN) Patient Reason For: monitor FHR (12/27/22799 : Katherine Mabry, RN) NST Explanation: Procedure Explained;Monitor Explained;Verbalizes Understanding (12/27/22799 : Katherine Mabry, RN) Acoustic Stimulator: No (12/27/22799 : Katherine Mabry, RN) Interventions: MONITORING/ASSESSMENT: Baseline: 135 bpm (12/27/22799 : Katherine Mabry, RN) Variability: Moderate (6-25 bpm) (12/27/22 08 : Katherine Mabry RN) Accelerations: Present (12/27/22 08 : Katherine Mabry RN) Decelerations: Decelerations: None (12/27/22 08 : Katherine Mabry RN) Contractions: Not present (12/27/22 08 : aKtherine Mabry RN) Frequency: Above information forwarded to Blaise (12/27/22 08 : Katherine Mabry RN) for final review and interpretation. SIGNATURE: Katherine Mabry RN PATIENT NAME: Chana De La O DATE: December 27, 2022 TIME: 8:18 AM Reactive.Courtney Gipson, [facility]11-20-2023 NoteHNO ID: [id number] Author: Rudolph Ralph MD Service: Obstetrics Author [...] antepartum 11/15/2022 Overview Note: - Transfer from [place] to [place]. records added by [facility] Gastroparesis 11/15/2022 Overview Note: - Diagnosed with [...] discharge today. Will follow up in [facility] [place] for continued testing. I spent 35 min of floor unit time on this discharge. BP has been normal. Rudolph Ralph [facility]11-19-2023 NoteHNO ID: [id number] Author: Brittany Tubbs RN Service: Nursing Author [...] RN) Indications: Other: Comment (s/p vaginal bleeding) (12/26/22 2014 : Brittany Tubbs RN) Patient Reason For: monitor baby (12/26/222013 : Brittany Tubbs RN) NST Explanation: Procedure Explained;Monitor Explained;Verbalizes Understanding (12/26/222013 : Brittany Tubbs RN) Acoustic Stimulator: Interventions: MONITORING/ASSESSMENT: Baseline: 135 bpm (12/26/222013 : Brittany Tubbs RN) Variability: Moderate (6-25 bpm) (12/26/222013 : Brittany Tubbs RN) Accelerations: Present (12/26/22 2014 : Brittany Tubbs RN) Decelerations: Decelerations: None (12/26/222013 : Brittany Tubbs RN) Contractions: Not present (12/26/222013 : Brittany Tubbs RN) Frequency: Above information forwarded to Sherri (12/26/22 2014 : Brittany Tubbs RN) for final review and interpretation. SIGNATURE: Brittany Tubbs RN PATIENT NAME: Chana De La O DATE: December 26, 2022 TIME: 8:55 [facility]11-19-2023 NoteHNO ID: [id number] Author: Svetlana Amador RN Service: Nursing Author [...] Time: 1138 (12/26/22 1200 : Svetlana Amador, STEVENSNO) Complete Time: 1200 (12/26/22 1200 : Svetlana Amador, STEVENSON) Indications: Other: Comment (vaginal bleeding) (12/26/22 1200 : Svetlana Amador RN) Patient Reason For: monitor baby (12/26/22 [...] O DATE: December 26, 2022 TIME: 12:34 [facility]11-19-2023 NoteHNO ID: [id number] Author: Negin Yancey DO Service: Obstetrics Author [...] antepartum 11/15/2022 Overview Note: - Transfer from [place] to [place]. records added by [facility] Gastroparesis 11/15/2022 Overview [...] O DATE: December 26, 2022 TIME: 5:17 [facility]11-18-2023 NoteHNO ID: [id number] Author: Xenia iRvera, STEVENSON Service: Nursing Author Type: Registered Nurse [...] Rivera RN) Frequency: Above information forwarded to Alida (12/25/22 1751 : Xenia Rivera RN) for final review and interpretation. SIGNATURE: Xenia Rivera RN PATIENT NAME: Chana De La O DATE: December 25, 2022 TIME: 6:05 [facility]11-18-2023 NoteHNO ID: [id number] Author: Xenia Rivera RN Service: Nursing Author [...] interpretation. SIGNATURE: Xenia Rivera RN PATIENT NAME: hCana De La O DATE: December 25, 2022 TIME: 11:41 [facility]11-18-2023 NoteHNO ID: [id number] Author: Svetlana Gutierrez MD Service: Obstetrics Author Type: Resident Type: Progress Notes Filed: 12/25/2022 5:06 AM Note Text: Attestation signed by Soyn Irwin MD at 12/25/2022 11:59 AM Attending [...] antepartum 11/15/2022 Overview Note: - Transfer from [place] to [place]. records added by [place] Gastroparesis 11/15/2022 Overview Note: - Diagnosed with [...] O DATE: December 25, 2022 TIME: 5:04 [facility]11-17-2023 NoteHNO ID: [id number] Author: Brittany Tubbs RN Service: Nursing Author [...] O DATE: December 24, 2022 TIME: 8:18 [facility]11-17-2023 NoteHNO ID: [id number] Author: Svetlana Gutierrez MD Service: Obstetrics Author Type: Resident Type: Progress Notes Filed: 12/24/2022 6:14 AM Note Text: Attestation signed by Christian Mondragon DO at 12/24/2022 4:13 PM MFM Attending Note I saw and evaluated the patient. I agree with the resident's findings and plan of care as documented below. Chana is a 2 y/o at 34w2d transported from [place] last evening for new onset VB. also complicated by FGR, vaping/marijuana use, depression, and gastroparesis. Reports large gush of blood yesterday morning that persisted until she arrived at [place]. In addition, she was reporting uterine cramping. [...] antepartum 11/15/2022 Overview Note: - Transfer from [place] to [place]. records added by [facility] Gastroparesis 11/15/2022 Overview Note: - Diagnosed with [...] NAME: Chana Macias Ra (more content not included)...[facility]11-16-2023 NoteHNO ID: [id number] Author: Dania Ozuna MD Service: Obstetrics Author [...] Patient or surrogate does not consent to testing.[facility] [facility] Miscellaneous Notes* Telephone Encounter - Geeta Rivera RN - 12/23/2022 12:09 PM EST 34w1d Called in c/o large gush of blood that occurred when she went to stand up just prior to phone call.Soaked through all clothes. No pain or contractions. No other complaints. Good movement this morning. She is going straight to L&D. L&D and SW both notified. Geeta Rivera RN documented in this encounterTrinity [facility] System11-13-2023 Miscellaneous Notes* Quick Notes - [...] delivery for rule out SROM. Svetlana Schaeffer APRN.CORE INSERTER documented in this encounterTrinity Health System11-13-2023 Instructions* Patient Instructions* Nadia Wilkins LPN - 12/20/2022 3:27 PM EST SEQUENTIAL SCREENINGS The [facility] offers sequential screenings for women [...] testing. It will require an appointment withour thermoplastic technician. This is not an ultrasound performed [...] the above symptoms, contact our office at [phone] and ask to speak with anurse. After hours, you can call [facility] at [phone] OR call [facility] at [phone] ask to have the doctor centralized traffic control operator paged. If you consider this an emergency, dial [phone]- or go to your nearest emergency department. NEED HELP? Are you dealing with a violent or abusive relationship? Are you a victim of rape or sexual assult? Call [facility] ([place]) 24 hour Crisis Hotline: 104.914.3637 or 048-957-7441. MANUAL Your Guide to a Healthy manual is now on-line. Visit [email or web address] to download your free copy documented in this encounterTrinity Health System11-01-2023 Miscellaneous Notes* Telephone Encounter - Stephanie Boateng RN - 12/08/2022 12:42 PM EDT Patient notified. States that her boyfriend has her car and she won't be able to make it until after 3PM. Encouraged patient to find other transportation. Updated H&P faxed to l&D. CP to updated [facility] nursing staff as they called to [...] proceed. Nadia Wilkins LPN documented in this encounterTrinity Health System10-30-2023 Miscellaneous Notes* Quick Notes - [...] signed. Ansley Ibrahim APRN.CNM documented in this encounterTrinity Health System10-30-2023 Instructions* Patient Instructions* Davi Gomez Cma - 12/06/2022 4:28 PM EDT SEQUENTIAL SCREENINGS The [facility] offers sequential screenings for women [...] testing. It will require an appointment withour thermoplastic technician. This is not an ultrasound performed [...] the above symptoms, contact our office at [phone] and ask to speak with anurse. After hours, you can call [facility] at [phone] OR call [facility] at [phone] ask to have the doctor centralized traffic control operator paged. If you consider this an emergency, dial 9-1-7 or go to your nearest emergency department. NEED HELP? Are you dealing with a violent or abusive relationship? Are you a victim of rape or sexual assult? Call [facility] ([facility] 24 hour Crisis Hotline: 330.409.9653 or 769-812-2223. MANUAL Your Guide to a Healthy manual is now on-line. Visit [email or web address] to download your free copy documented in this encounterTrinity Health System10-16-2023 Miscellaneous Notes* Quick Notes - Danni Reynolds APRN.CNM - 11/22/2022 1:39 PM EDT Patient is at 29.5 weeks gestation here for NOB. She is a transfer patient from [facility]. See progress note. Danni Reynolds APRN.CNM documented in this encounterTrinity Health System10-16-2023 Instructions* Patient Instructions* Devorah Francois Ma - 11/22/2022 12:50 PM EDT Please select the following link to access the [facility] Your Guide to a Healthy . [email or web address] documented in this encounterTrinity Health System10-16-2023 NoteHNO ID: [id number] Author: Danni Reynolds APRN.CNM Service: ? Author Type: Extruder Type: Progress Notes Filed: 11/22/2022 2:26 PM Note Text: INITIAL OB ASSESSMENT- TRANSFER FROM [facility] OB Provider: Danni Reynolds APRN.CNM HPI: Chana [...] Living, Comments: retained products of conception- suction DANCA 08/31/21, 1st degree midline labial and left [...] No Multivitamin with Folic acid: Not taking Alevism or heritage: No Would refuse blood transfusion if medically necessary: No Are you currently employed? 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 INITIAL OB ASSESSMENT- TRANSFER FROM SHARPLES OB Provider: Danni Reynolds APRN.CNM HPI: Chana [...] No Multivitamin with Folic acid: Not taking Alevism or heritage: No Would refuse blood transfusion if medically necessary: No Are you currently employed? 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 Her readiness to change(0lowest - 10 [...] Z3A.29 PLAN: - TYPE + SCREEN - WHITE SHOE RAGGER - RHO(D) IMMUNE GLOBULIN 1,500 UNIT (300 MCG)/2 ML INJECTION SYRINGE - SYPHILIS TOTAL W/REFLEX - UA DIP OB, URINE (POC) - URINE OB DIP B/O - GCT- normal -- Plans on epidural and formula feeding - Discussed cessation of marijuana use- patient declines at this time - Patient oriented to practice. Discussed how to access Your guide to a health and the Bowling Ball Mold Assembler. Reviewed midwifery and bell spinner sousaphones services that are available. Follow up in 2 weeks or sooner prn. Danni Reynolds APRN.CNM documented in this encounterTrinity Health System10-09-2023 Miscellaneous Notes* Quick Notes - [...] other child. Patient is transferring care from [facility]. We have received her records and they are sent to Danni Reynolds for review. Patient's last visit with [facility] was October 20. Patient states she was [...] a suicidal attempt and was hospitalized in [place] as a teenager. She states that she had counseling in the past but none since age 18. She denies any history of depression.Pt states she quit smoking 1 week ago. States that she occ asionally vapes nicotine. Discussed risks of continued use in and advised patient to quit. Information for [place] tobacco quit line given to patient. Patient [...] Luis Manuel Macias RN documented in this encounterTrinity Health System10-09-2023 History of Past illness Narrative* Problem Noted Date Diagnosed Date Resolved Date Nausea and vomiting in 11/15/2022 12/23/2022 Overview: 11/15/2022atient is complaining of nausea and occasional vomiting in . Dietary considerations discussed . Advised patient to call/come in if she is unable to keep any food or fluids down in a 24-hour period. tkrn documented as of this encounter (statuses as of 12/24/2022) [facility] History of Present illness Narrative* [...] No Multivitamin with Folic acid: Not taking Alevism or heritage: No Would refuse blood transfusion if medically necessary: No Are you currently employed? Yes, Occupation: [employer] worker Do you have any history of [...] have penicillin allergy: No documented in this encounterTrinity Health System09-15-2023 History of Present illness Narrative* Geeta Rivera RN - 10/22/2022 9:00 AM EDT Records received from [place] PHYSICAL LABORATORY ASSISTANT. Epic updated. Sent to medical records to scan into [employer] and copy in PNOB mailbox for 11/15/22 appointment. Geeta Rivera RN documented in this encounterTrinity Health System07-15-2023 Instructions* Patient Instructions* Wilfrid Laura APRN.CORE INSERTER - 08/21/2022 11:00 AM EDT How to [...] or concerning to you. documented in this encounterTrinity Health System07-15-2023 History of Present illness Narrative* [...] of care. This note was generated using BeMe Intimates software. It may contain errors in wording, punctuation, or spelling. Wilfrid Laura APRN.SB documented in this encounterTrinity Health System07-13-2023 Instructions* Patient Instructions* Lyric Carney APRN.CNP - 08/19/2022 4:19 PM EDT Recommend ER evaluation due to and current symptoms. Urine will be sent off for culture. Keep appointment tomorrow with PINKED EDGE SEWING MACHINE OPERATOR. documented in this encounterTrinity Health System07-13-2023 History of Present illness Narrative* [...] 16weeks , following with Dr. Mike Rodriguez PINKED EDGE SEWING MACHINE OPERATOR. Last appt about 1 month, seeing tomorrow. [...] agrees with the plan. documented in this encounterTrinity Health System04-26-2023 History of Present illness Narrative* Wilfrid Laura [...] agrees with plan of care. Wilfrid Laura APRN.CNP documented in this encounterTrinity Health System11-18-2022 Hospital Discharge instructions Patient Education [...] foods again, start with small amounts of tvbc-wa-wgjlmf, low- fat foods. These include apple sauce, [...] increase stomach acid. Don't use aspirin or zvpg-twm-moiardt pain and fever medicines, if possible. This includes nonsteroidal anti-inflammatory drugs (NSAIDs). Lose excess weight. Finish eating at least 2 hours before you go to bed or lie down. Raise the head of your bed. 7898-3701 [employer]. [address] [place] [address]. All rights reserved. This information is not intended as a substitute for professional medical care. Always follow yourhealthcare professional's instructions. Follow Up Care 12/25/2021 09:25:21 With:Follow up with primary care provider Address:Unknown When:2-4 days [facility] 11-18-2022 Emergency department Discharge summary Discharge Instructions Thank you for allowing [facility] to assist you with your healthcare [...] foods again, start with small amounts of wutl-ff-gqjmtn, low- fat foods. These include apple sauce, [...] increase stomach acid. Don't use aspirin or ddcb-bvo-javwxeh pain and fever medicines, if possible. This includes nonsteroidal anti-inflammatory drugs (NSAIDs). Lose excess weight. Finish eating at least 2 hours before you go to bed or lie down. Raise the head of your bed. 8790-3142 [employer]. [address] [place] [address]. All rights reserved. This information is not intended as a substitute for professional medical care. Always follow yourhealthcare professional's instructions. Additional Information VACCINATE! IT SAVES LIVES! Members of the community who have not yet received the COVID-19 vaccine and would like to receive it can visit one of [facility] vaccine clinics. There are many vaccine clinic locations within the [facility]. For locations and available times, please visit [email or web address]. It is important to note that some COVID mobile vaccine clinics are held outdoors and may be canceled in rainy orstormy conditions. To learn more about pediatric vaccinations (ages 5-11), we invite you to visit the [facility] webpage. [email or web address] [email or web address].htmlTo learn more about the COVID-19 vaccine, we invite you to visit the [facility] website for a list of frequently asked questions. [email or web address] _[email or web address].pdf [facility] Patient Portal Access Instructions: Stay connected with your healthcare team and access your personal medical information anytime with the [facility] Patient Portal. If you would like a full copy of your medical records please contact the [facility] Medical Records Department Tuesday through Tuesday between 8a.m. and 4:30p.m. Please follow the directions below to access the portal: 1.Access the email account you provided upon registration to the [facility].2.Look for an invitation email from [facility].3.Open the email and access the invitation link: Accept Invitation to [facility]4.Fill in the required solis to create your account. Sign into [email or web address] with your username and password that you [...] you will allow to register on the [facility] Patient Portal for access to your information. You can also access the [facility] Patient Portal on the Bingo.com. Simply click on Health Records under HealthData and then click on the Lizzie logo. [...] Call your local pharmacy or go to http://bit.ly/4G2Sy3x to find one close to you.3.Make use of household items: Use cat litter or old coffee grounds to dispose medications if other options arenot available. Mix your drugs with these household products, seal them in an airtight container andthrow it into the garbage. Call [facility]: [phone] to be sure your drugs can be [...] that I should contact my d octor. 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: Date/Time: Relationship to Patient: Witness Name/Signature: Date/Time: [facility] [id number] Note ORIGINAL EXAMINATION: CT OF THE ABDOMEN AND PELVIS WITHOUT QDNAAMNY00/18/2022 10:28 am TECHNIQUE: CT of the abdomen [...] Date: 12/25/2021 11:18:46 AM Ordering Provider: MARICRUZ ZAMUDIO [facility]11-18-2022 Note ORIGINAL EXAMINATION: CT OF THE ABDOMEN AND PELVIS WITHOUT FWDFGZAX33/18/2022 10:28 am TECHNIQUE: CT of the abdomen [...] Report By: Isabell Aragon Electronically signed By Chrsitian Nicole MD Dictated Date: 12/25/2021 10:36:17 AM Prelim Date: 12/25/2021 11:18:46 AM Sign Date: 12/25/2021 11:18:46 AM [facility]ing [facility] History of Present illness Narrative* Delmer Bradshaw APRN.CORE INSERTER - 12/09/2021 12:30 PM EDT Subjective HPI [...] and atraumatic. Nose: Nose normal. Mouth/Throat: Lips: [place]. Mouth: Mucous membranes are moist. Pharynx: Uvula [...] AEROSOL INHALER Agrees to plan Delmer Bradshaw APRN.SB documented in this encounterTrinity Health System10-03-2022 Miscellaneous Notes* Telephone Encounter - Nilay Bernal MD - 11/09/2021 3:59 PM EDT Refill not appropriate through express care. documented in this encounterTrinity Health System09-20-2022 Instructions* Patient Instructions* Ansley Chen APRN.CNP - 10/27/2021 6:49 PM EDT R.I.C.E. [...] pillows when lying down. documented in this encounterTrinity Health System09-20-2022 History of Present illness Narrative* Magdalena Cottrell RT(R) - 10/27/2021 6:30 PM EDT Radiology Service Progress Note PATIENT NAME: Chana De La O DATE OF SERVICE: October 27, 2021 TIME: 6:23 PM PATIENT IDENTITY VERIFICATION COMPLETED USING TWO (2) IDENTIFIERS: Name and Date of confirmedby patient verbally. FALL SCREENING: Has the patient had 2 falls in the last year or 1 fall with injury or currently using an Ambulatory Assistive Device (Walker, Cane, Wheelchair, Crutches, etc.)? No PATIENT GENDER DATA: Female. status: : No status: NO. PATIENT RELEVANT IMPLANT DATA REVIEWED: Yes RADIOLOGY DEPARTMENT: General X-ray: Exam(s) Completed: Upper Extremity X- Ray(s): Hand, right PERIPHERAL IV DATA: Not applicable SIGNED BY: RT Josefa(Wendy) October 27, 2021 6:23 PM documented in this encounterTrinity Health System09-20-2022 History of Present illness Narrative* Ansley Chen APRN.CNP - 10/27/2021 6:16 PM EDT This note was created using NoteWriter. Subjective Chana De La O is a [...] history is provided by the patient. No speech and language clinician was used. Musculoskeletal Problem This is a [...] analgesics. Follow up with PCP Ansley Chen APRN.CORE INSERTER documented in this encounterW[facility] [place] + Plan note No data available for this section [facility] Evaluation note* Diagnosis Pain of right hand- Primary Pain in limb documented in this encounter [facility] [place] [facility]* Diagnosis Viral URI with cough Acute upper respiratory infections of unspecified site documented in this encounter [facility] [place] [facility]* Diagnosis Sore throat- Primary Acute pharyngitis History of asthma Personal history of other diseases of respiratory system documented in this encounter [facility] [place] [facility]* Diagnosis Procedure not carried out- Primary Procedure not carried out for other reasons documented in this encounter [facility] SystemEvaluation [facility]* Diagnosis Abdominal pain, unspecified abdominal location- Primary 16 weeks gestation of state, incidental Burning with urination Dysuria documented in this encounter [facility] [place] [facility]* Diagnosis Sore throat- Primary Acute pharyngitis Viral illness Unspecified viral infection, in conditions classified elsewhere and of unspecified site documented in this encounter [facility] [place] [facility]* Diagnosis with care elsewhere, antepartum- Primary Gastroparesis History of depression Personal history of other mental disorder Engages in nicotine containing substance vaping History of marijuana use Nausea and vomiting in Unspecified vomiting of , unspecified as to episode of care documented in this encounter [facility] [place] [facility]* Diagnosis with care elsewhere, antepartum- Primary Gastroparesis History of depression Personal history of other mental disorder History of marijuana use 29 weeks gestation of state, incidental Rh negative state in antepartum period Rhesus isoimmunization affecting management of mother, antepartum condition documented in this encounter [facility] [place] [facility]* Diagnosis with care elsewhere, antepartum- Primary 31 weeks gestation of state, incidental documented in this encounter [facility] [place] [facility]* Diagnosis 33 weeks gestation of - Primary state, incidental care, subsequent in third trimester Leakage of amniotic fluid Premature rupture of membranes in , unspecified as to episode of care documented in this encounter [facility] [place] [facility]* Diagnosis Poor growth affecting management of mother in third trimester, single or unspecified fetus- Primary Vaginal bleeding in , third trimester 34 weeks gestation of state, incidental documented [facility] [place] [facility]* Diagnosis with care elsewhere, antepartum- Primary Poor growth affecting management of mother in third trimester, single or unspecified fetus documented in this encounter [facility] [place] [facility]* Diagnosis Other obesity due to excess calories affecting in third trimester [O99.213, E66.09]- Primary Poor growth affecting management of mother in third trimester, single or unspecified fetus Supervision of other high risk pregnancies, third trimester Placental abruption in third trimester documented in this encounter [facility] [place] [facility]* Diagnosis Poor growth affecting management of mother in third trimester, single or unspecified fetus- Primary Supervision of other high risk pregnancies, third trimester 35 weeks gestation of state, incidental documented in this encounter [facility] [place] [facility]* Diagnosis 36 weeks gestation of - Primary state, incidental Poor growth affecting management of mother in third trimester, single or unspecified fetus Supervision of other high risk pregnancies, third trimester Rh negative state in antepartum period Rhesus isoimmunization affecting management of mother, antepartum condition History of marijuana use documented in this encounter [facility] [place] [facility]* Diagnosis Poor growth affecting management of mother in third trimester, single or unspecified fetus- Primary Supervision of other high risk pregnancies, third trimester 36 weeks gestation of state, incidental documented in this encounter [facility] [place] [facility]* Diagnosis Poor growth affecting management of mother in third trimester, single or unspecified fetus- Primary 36 weeks gestation of state, incidental Supervision of other high risk pregnancies, third trimester documented in this encounter [facility] [place] [facility]* Diagnosis 37 weeks gestation of - Primary state, incidental Poor growth affecting management of mother in third trimester, single or unspecified fetus Supervision of other high risk pregnancies, third trimester documented in this encounter [facility] [place] [facility]* Diagnosis 37 weeks gestation of - Primary state, incidental Poor growth affecting management of mother in third trimester, single or unspecified fetus Supervision of other high risk pregnancies, third trimester documented in this encounter [facility] [place] [facility]* Diagnosis URI, acute- Primary Acute upper respiratory infections of unspecified site documented in this encounter [facility] note* Diagnosis Sinobronchitis- Primary Unspecified sinusitis (chronic) documented in this encounter [facility] [place] [facility]* Diagnosis Mild intermittent asthma with acute exacerbation- Primary Unspecified asthma, with exacerbation Eustachian tube dysfunction, bilateral documented in this encounter [facility] note* Diagnosis Injury of right thumb, initial encounter- Primary Injury of right thumb, initial encounter documented in this encounter [facility] [place] [facility]* Diagnosis Pelvic pain in female- Primary Unspecified symptom associated with female genital organs Abdominal pain, unspecified abdominal location Nausea and vomiting, unspecified vomiting type History of cholecystectomy Other acquired absence of organ Dermoid cyst Benign neoplasm of unspecified site PCOS (polycystic ovarian syndrome) Polycystic ovaries Enlarged uterus Hypertrophy of uterus Marijuana use, continuous documented in this encounter [facility] [place] [facility]* Diagnosis Pelvic pain in female- Primary Unspecified symptom associated with female genital organs Dermoid cyst Benign neoplasm of unspecified site Dermoid cyst of ovary, right Abnormal ultrasound of endometrium Nonspecific (abnormal) findings on radiological and other examination of genitourinary organs documented in this encounter [facility] [place] [facility]* Diagnosis Injury of right thumb, initial encounter documented in this encounter [facility] [place] [facility]* Diagnosis Pain of right hand Pain in limb documented in this encounter [facility] [place] [facility]* Diagnosis Acute cough- Primary documented in this encounter [facility] for referral (narrative)* Diagnostic Procedure Only (Urgent) - Closed Specialty Diagnoses / Procedures Referred By Contac t Referred To Contact XR IMAGING Diagnoses Pain of right hand Procedures XR HAND GENERAL 3V PA/LAT/OBL RIGHT RADEX HAND MINIMUM 3 VIEWS Ansley Chen APRN.CORE INSERTER [address] [place] [address] Xr Imaging Referral ID Status Reason Start Date Expiration Date V isits Requested Visits Authorized [id number] Closed Auto-Generate d Referral 10/27/2021 11/26/2022 1 1 [facility] for referral (narrative)* Outpatient Procedure (Routine) - Pending Review Specialty Diagnoses / Procedures Referred By Contac t Referred To Contact Diagnoses Poor growth affecting management of mother in third trimester, single or unspecified fetus Procedures NON-STRESS TEST NON-STRESS TEST Rudolph Ralph MD [address], [place] [id number] Referral ID Status Reason Start Date Expiration Date Visits Requested Visits Authorized [id number] Pending Review Auto-Generat ed Referral 3 12/29/2023 4 1 [facility] for referral (narrative)* Diagnostic Procedure Only (Urgent) - Closed Specialty Diagnoses / Procedures Referred By Contac t Referred To Contact XR IMAGING Diagnoses Injury of right thumb, initial encounter Procedures XR DIGIT GENERAL 3V FRONTAL/LAT/OBL RIGHT RADEX FINGR MINIMUM 2 VIEWS Wilfrid Laura ART PROFESSOR.CORE INSERTER [address] [place] [address] [place] [address] Referral ID Status Reason Start Date Expiration Date V isits Requested Visits Authorized [id number] Closed Auto-Generate d Referral 07/21/2023 08/19/2024 1 1 [facility] for referral (narrative)* Diagnostic Procedure Only (Routine) - Authorized Specialty Diagnoses / Procedures Referred By Contac t Referred To Contact [facility] Diagnoses Pelvic pain in female Dermoid cyst Procedures PELVIC US WHI US PELVIC NONOBSTETRIC REAL-TIME IMAGE COMPLETE Ansley Ibrahim APRN.CN [address] [place] [address] [facility] [address] [place] [address] Referral ID Status Reason Start Date Expiration Date Visits Requested Visits Authorized [id number] Authorized Auto-Generat ed Referral 08/24/2023 08/23/2024 1 1 * Consult, Test, Treat (Routine) - Authorized Specialty Diagnoses / Procedures Referred By Dignasevero t Referred To Contact Gastroenterology Diagnoses Nausea and vomiting, unspecified vomiting type Abdominal pain, unspecified abdominal location History of cholecystectomy Procedures CONSULT TO GASTROENTEROLOGY OFFICE/OUTPATIENT [facility] 60 MINUTES Ansley Ibrahim APRN.CNM [address] [place] [address] Referral ID Status Reason Start Date Expiration Date Visits Requested Visits Authorized [id number] Authorized PCP Requested Referral 08/24/2023 08/23/2024 1 1 [facility] for referral (narrative)* Diagnostic Procedure Only (Urgent) - Closed Specialty Diagnoses / Procedures Referred By Kim t Referred To Contact XR IMAGING Diagnoses Injury of right thumb, initial encounter Procedures XR DIGIT GENERAL 3V FRONTAL/LAT/OBL RIGHT RADEX FINGR MINIMUM 2 VIEWS Wilfrid Laura APRN.CORE INSERTER [address] [place] [address] [place] [address] Referral ID Status Reason Start Date Expiration Date V isits Requested Visits Authorized [id number] Closed Auto-Generate d Referral 07/21/2023 08/19/2024 1 1 [facility] for referral (narrative)* Diagnostic Procedure Only (Urgent) - Closed Specialty Diagnoses / Procedures Referred By Contac t Referred To Contact XR IMAGING Diagnoses Pain of right hand Procedures XR HAND GENERAL 3V PA/LAT/OBL RIGHT RADEX HAND MINIMUM 3 VIEWS Ansley Chen, ART PROFESSOR.CORE INSERTER [address] [place] [address] [place] [address] Referral ID Status Reason Start Date Expiration Date V isits Requested Visits Authorized [id number] Closed Auto-Generate d Referral 10/27/2021 11/26/2022 1 1 [facility] for visit Narrative* Diagnostic Procedure Only (Routine) - Closed Specialty Diagnoses / Procedures Referred By Contac t Referred To Contact [facility] Diagnoses Pelvic pain in female Dermoid cyst Procedures PELVIC US WHI US PELVIC NONOBSTETRIC REAL-TIME IMAGE COMPLETE Ansley Ibrahim ART PROFESSOR.CNM [address] [place] [address] [facility] [address] [place] [address] Referral ID Status Reason Start Date Expiration Date V isits Requested Visits Authorized [id number] Closed Auto-Generate d Referral 08/24/2023 08/23/2024 1 1 [facility] for visit Narrative* Diagnostic Procedure Only (Urgent) - Closed Specialty Diagnoses / Procedures Referred By Contac t Referred To Contact XR IMAGING Diagnoses Injury of right thumb, initial encounter Procedures XR DIGIT GENERAL 3V FRONTAL/LAT/OBL RIGHT RADEX FINGR MINIMUM 2 VIEWS Wilfrid Laura, ART PROFESSOR.CORE INSERTER [address] [place] [address] [place] [address] Referral ID Status Reason Start Date Expiration Date V isits Requested Visits Authorized [id number] Closed Auto-Generate d Referral 07/21/2023 08/19/2024 1 1 [facility] for visit Narrative* Diagnostic Procedure Only (Urgent) - Closed Specialty Diagnoses / Procedures Referred By Contac t Referred To Contact XR IMAGING Diagnoses Pain of right hand Procedures XR HAND GENERAL 3V PA/LAT/OBL RIGHT RADEX HAND MINIMUM 3 VIEWS Ansley Chen, ART PROFESSOR.CORE INSERTER [address] [place] [address] [place] [address] Referral ID Status Reason Start Date Expiration Date V isits Requested Visits Authorized [id number] Closed Auto-Generate d Referral 10/27/2021 11/26/2022 1 1 [facility] Summary Purpose Family History No [...] CC Education - COMMON 11/22/2022 [place] 11/22/2022 Problem Noted Date Diagnosed Date [facility] Education - COMMON 10/22/2022 [facility] Education - COMMON 11/22/2022 [place] - [place] 11/22/2022 Problem Noted Date Diagnosed Date [facility] Education - COMMON 10/22/2022 [facility] Education - COMMON 11/22/2022 Education - [place] 11/22/2022 Problem Noted Date Diagnosed Date [facility] CC Education - COMMON 10/22/2022 [facility] Education - COMMON 11/22/2022 [place] - [place] 11/22/2022 Problem Noted Date Diagnosed Date [facility] CC Education - COMMON 10/22/2022 [facility] Education - COMMON 11/22/2022 [place] - [place] 11/22/2022 Additional Source Comments INFORMATION SOURCE (unrecogn ized section and content) DATE CREATED AUTHOR 01/15/2018 [facility] DATE CREATED AUTHOR AUTHOR'S ORGANIZ ATION 10/10/2020 [facility] DATE CREATED AUTHOR AUTHOR'S ORGANIZ ATION 07/24/2021 [facility] DATE CREATED AUTHOR AUTHOR'S ORGANIZ ATION 02/16/2022 [facility] ([place]) DATE CREATED AUTHOR AUTHOR'S ORGANIZ ATION 07/19/2022 [facility] DATE CREATED AUTHOR AUTHOR'S ORGANIZ ATION 08/27/2022 [facility] DATE CREATED AUTHOR AUTHOR'S ORGANIZ ATION 01/18/2023 [facility] DATE CREATED AUTHOR AUTHOR'S ORGANIZ ATION 08/25/2023 [facility] DATE CREATED AUTHOR AUTHOR'S ORGANIZ ATION 11/21/2023 [facility] Source Comments (unrecognize d section and content) In the event this informatio n is protected by the Federal Confidentiality of Alcohol and Drug Abuse Patient Records regulations: The Federal rules restrict any use of the information to criminally investigate or prosecute any alcohol or drug abuse patient.[facility] the event this information is protected by the Federal Confidentiality of Alcohol and Drug Abuse Patient Records regulations: The Federal rules restrict any use of the information to criminally investigate or prosecute any alcohol or drug abuse patient.[facility] SystemIn the event this information is protected by the Federal Confidentiality of Alcohol and Drug Abuse Patient Records regulations: The Federal rules restrict any use of the information to criminally investigate or prosecute any alcohol or drug abuse patient.[facility] SystemIn the event this information is protected by the Federal Confidentiality of Alcohol and Drug Abuse Patient Records regulations: The Federal rules restrict any use of the information to criminally investigate or prosecute any alcohol or drug abuse patient.[facility] SystemIn the event this information is protected by the Federal Confidentiality of Alcohol and Drug Abuse Patient Records regulations: The Federal rules restrict any use of the information to criminally investigate or prosecute any alcohol or drug abuse patient.[facility] SystemIn the event this information is protected by the Federal Confidentiality of Alcohol and Drug Abuse Patient Records regulations: The Federal rules restrict any use of the information to criminally investigate or prosecute any alcohol or drug abuse patient.[facility] SystemIn the event this information is protected by the Federal Confidentiality of Alcohol and Drug Abuse Patient Records regulations: The Federal rules restrict any use of the information to criminally investigate or prosecute any alcohol or drug abuse patient.[facility] SystemIn the event this information is protected by the Federal Confidentiality of Alcohol and Drug Abuse Patient Records regulations: The Federal rules restrict any use of the information to criminally investigate or prosecute any alcohol or drug abuse patient.[facility] SystemIn the event this information is protected by the Federal Confidentiality of Alcohol and Drug Abuse Patient Records regulations: The Federal rules restrict any use of the information to criminally investigate or prosecute any alcohol or drug abuse patient.[facility] SystemIn the event this information is protected by the Federal Confidentiality of Alcohol and Drug Abuse Patient Records regulations: The Federal rules restrict any use of the information to criminally investigate or prosecute any alcohol or drug abuse patient.[facility] SystemIn the event this information is protected by the Federal Confidentiality of Alcohol and Drug Abuse Patient Records regulations: The Federal rules restrict any use of the information to criminally investigate or prosecute any alcohol or drug abuse patient.[facility] SystemIn the event this information is protected by the Federal Confidentiality of Alcohol and Drug Abuse Patient Records regulations: The Federal rules restrict any use of the information to criminally investigate or prosecute any alcohol or drug abuse patient.[facility] SystemIn the event this information is protected by the Federal Confidentiality of Alcohol and Drug Abuse Patient Records regulations: The Federal rules restrict any use of the information to criminally investigate or prosecute any alcohol or drug abuse patient.[facility] SystemIn the event this information is protected by the Federal Confidentiality of Alcohol and Drug Abuse Patient Records regulations: The Federal rules restrict any use of the information to criminally investigate or prosecute any alcohol or drug abuse patient.[facility] SystemIn the event this information is protected by the Federal Confidentiality of Alcohol and Drug Abuse Patient Records regulations: The Federal rules restrict any use of the information to criminally investigate or prosecute any alcohol or drug abuse patient.[facility] SystemIn the event this information is protected by the Federal Confidentiality of Alcohol and Drug Abuse Patient Records regulations: The Federal rules restrict any use of the information to criminally investigate or prosecute any alcohol or drug abuse patient.[facility] SystemIn the event this information is protected by the Federal Confidentiality of Alcohol and Drug Abuse Patient Records regulations: The Federal rules restrict any use of the information to criminally investigate or prosecute any alcohol or drug abuse patient.[facility] SystemIn the event this information is protected by the Federal Confidentiality of Alcohol and Drug Abuse Patient Records regulations: The Federal rules restrict any use of the information to criminally investigate or prosecute any alcohol or drug abuse patient.[facility] SystemIn the event this information is protected by the Federal Confidentiality of Alcohol and Drug Abuse Patient Records regulations: The Federal rules restrict any use of the information to criminally investigate or prosecute any alcohol or drug abuse patient.[facility] SystemIn the event this information is protected by the Federal Confidentiality of Alcohol and Drug Abuse Patient Records regulations: The Federal rules restrict any use of the information to criminally investigate or prosecute any alcohol or drug abuse patient.[facility] SystemIn the event this information is protected by the Federal Confidentiality of Alcohol and Drug Abuse Patient Records regulations: The Federal rules restrict any use of the information to criminally investigate or prosecute any alcohol or drug abuse patient.[facility] SystemIn the event this information is protected by the Federal Confidentiality of Alcohol and Drug Abuse Patient Records regulations: The Federal rules restrict any use of the information to criminally investigate or prosecute any alcohol or drug abuse patient.[facility] SystemIn the event this information is protected by the Federal Confidentiality of Alcohol and Drug Abuse Patient Records regulations: The Federal rules restrict any use of the information to criminally investigate or prosecute any alcohol or drug abuse patient.[facility] SystemIn the event this information is protected by the Federal Confidentiality of Alcohol and Drug Abuse Patient Records regulations: The Federal rules restrict any use of the information to criminally investigate or prosecute any alcohol or drug abuse patient.[facility] SystemIn the event this information is protected by the Federal Confidentiality of Alcohol and Drug Abuse Patient Records regulations: The Federal rules restrict any use of the information to criminally investigate or prosecute any alcohol or drug abuse patient.[facility] SystemIn the event this information is protected by the Federal Confidentiality of Alcohol and Drug Abuse Patient Records regulations: The Federal rules restrict any use of the information to criminally investigate or prosecute any alcohol or drug abuse patient.[facility] SystemIn the event this information is protected by the Federal Confidentiality of Alcohol and Drug Abuse Patient Records regulations: The Federal rules restrict any use of the information to criminally investigate or prosecute any alcohol or drug abuse patient.[facility] SystemIn the event this information is protected by the Federal Confidentiality of Alcohol and Drug Abuse Patient Records regulations: The Federal rules restrict any use of the information to criminally investigate or prosecute any alcohol or drug abuse patient.[facility] SystemIn the event this information is protected by the Federal Confidentiality of Alcohol and Drug Abuse Patient Records regulations: The Federal rules restrict any use of the information to criminally investigate or prosecute any alcohol or drug abuse patient.[facility] SystemIn the event this information is protected by the Federal Confidentiality of Alcohol and Drug Abuse Patient Records regulations: The Federal rules restrict any use of the information to criminally investigate or prosecute any alcohol or drug abuse patient.[facility] SystemIn the event this information is protected by the Federal Confidentiality of Alcohol and Drug Abuse Patient Records regulations: The Federal rules restrict any use of the information to criminally investigate or prosecute any alcohol or drug abuse patient.[facility] SystemIn the event this information is protected by the Federal Confidentiality of Alcohol and Drug Abuse Patient Records regulations: The Federal rules restrict any use of the information to criminally investigate or prosecute any alcohol or drug abuse patient.[facility] SystemIn the event this information is protected by the Federal Confidentiality of Alcohol and Drug Abuse Patient Records regulations: The Federal rules restrict any use of the information to criminally investigate or prosecute any alcohol or drug abuse patient.[facility] SystemIn the event this information is protected by the Federal Confidentiality of Alcohol and Drug Abuse Patient Records regulations: The Federal rules restrict any use of the information to criminally investigate or prosecute any alcohol or drug abuse patient.[facility] SystemIn the event this information is protected by the Federal Confidentiality of Alcohol and Drug Abuse Patient Records regulations: The Federal rules restrict any use of the information to criminally investigate or prosecute any alcohol or drug abuse patient.[facility] SystemIn the event this information is protected by the Federal Confidentiality of Alcohol and Drug Abuse Patient Records regulations: The Federal rules restrict any use of the information to criminally investigate or prosecute any alcohol or drug abuse patient.[facility] Reason for Visit (unrecogniz ed section and content) Reason Comments US Specialty Diagnoses / Procedures Referred By Contac t Referred To Contact [facility] Diagnoses Poor growth affecting management of mother in third trimester, single or unspecified fetus Supervision of other high risk pregnancies, third trimester Procedures BIOPHYSICAL PROFILE US I BIOPHYSICAL PROFILE NON-STRESS TESTING Mayito Granados MD [address] [place] [address] [facility] [address] [place] [address] Referral ID Status Reason Start Date Expiration Date V isits Requested Visits Authorized [id number] Closed Auto-Generate d Referral 2022 2023 6 [...] Reason Comments Initial OB Visit DONNA from [place] Reason Onset Date Comments Care 12/06/2022 Reason Comments Patient Question Reason Onset Date Comments Care Care 12/20/2022 Reason Comments OB Bleeding Specialty Diagnoses / Procedures Referred By Contac t Referred To Contact Diagnoses Vaginal bleeding Procedures NA Ok [address] [place] [address] Referral ID Status Reason Start Date Expiration Date Visits Re quested Visits Authorized [id number] 1 1 Reason Comments Consult Specialty Diagnoses / Procedures Referred By Contac t Referred To Contact [facility] Diagnoses Poor growth affecting management of mother in third trimester, single or unspecified fetus Supervision of other high risk pregnancies, third trimester Procedures BIOPHYSICAL PROFILE US [facility] BIOPHYSICAL PROFILE NON-STRESS TESTING Mayito Granados MD [address] [place] [address] [facility] [address] [place] [address] Reason Onset Date Comments Care 12/31/2022 Reason Onset Date Comments Care 01/05/2023 Reason Comments Results Reason Onset Date Comments Care 01/13/2023 Reason Onset Date Comments Care 01/17/2023 Reason Comments Ob Delivery Note Reason Comments Schedule Surgery Reason Comments Sore Throat ST x 6 days Reason Comments Sinus Problem Pressure and pain, c hest congestion, nasal congestion, large amounts of mucous, ear pressure, cough x 1 month Reason Comments Nasal Congestion Sob, asthma, feels l jonn there is fluid in bilateral ears x 2days Reason Comments Thumb Injury Right thumb smashed in car door x1 day Reason Comments Pelvic Pain Reason Comments Cough Chest congestion and tightness x1 week, ST for first 2 days Care Team (unrecognized sect ion and content) Care Team Personnel Name: PHYSICIAN, NONE Position: Physician Member Role: Primary Care Physician Name: MARICRUZ ZAMUDIO MD Position: ED Physician Member Role: Attending Physician Address: Address: [facility] [address] [place], [place] [address] Name: Moni Sanchez RN Position: ED RN Member Role: ED RN Care Teams (unrecognized sec tion and content) Reel And Rewinder Operator Relationship Specialty Start Date End Date Pcp, No, ART PROFESSOR PCP - General Adult Health 10/11/23 05/07/24 Reel And Rewinder Operator Relationship Specialty Start Date End Date Pcp, No, ART PROFESSOR PCP - General Adult Health 10/11/23 05/07/24 FOR RECORDS PERTAINING TO PATIENTS WHO ARE [...] BE BASED ON THE PRIMARY CLINICAL RECORDS. [facility] [employer] provides no warranty or guarantee of the accuracy or completeness of information in this document.
[2023-12-04 11:39] LABS: Absolute Neutrophil Count 9.3 X10^3/uL (2.0-7.7); Basophil# 0.05 X10^3/uL; Basophil% 0.5 % (0-1); Eosinophil# 0.03 X10^3/uL; Eosinophils% 0.3 % (0-5); Hematocrit 42.1 % (37-47); Hemoglobin 14.3 g/dL (12.0-15.0); Lymphocyte % 11.8 % (19-41); Mean Corpuscular Hgb 28.5 pg (27.0-32.0); Mean Platelet Vol. 10.2 fl (6.2-12.0); Monocyte# 0.33 X10^3/uL; NRBC Flagged by Analyzer 0 % (0-5); Neutrophil # 9.27 X10^3/uL (2.7-7.7); Platelet Count 330 K/mm3 (150-450); RBC Distribution Width CV 13.1 % (11.6-14.6); RBC Distribution Width SD 40.2 fl (35.1-43.9); Red Blood Count 5.01 M/mm3 (4.2-5.4)
[2023-12-04 11:49] LABS: Internal QC Validated? YES +Cl - CLEAR BKGD; Pregnancy, Serum, hCG Quali. NEGATIVE Negative
[2023-12-04 11:54] LABS: AST(SGOT) 13 U/L (15-37); Alanine Aminotransfer ALT/SGPT 22 U/L (13-56); Albumin, Serum 4.4 g/dL (3.2-5.0); Alkaline Phosphatase 74 U/L (45-117); Anion Gap 7 (5-15); BUN 7 mg/dL (7-18); BUN/Creat Ratio 9.4 RATIO (10-20); Calcium,Total 8.9 mg/dL (8.5-10.1); Chloride 107 mmol/L (98-107); Creatinine, Serum 0.74 mg/dL (0.55-1.02); EST Glomerular Filtration Rate 103 mL/min (>60); Est Glom Filt Rate - Afr Amer 125 mL/min (>60); Estimated Creatinine Clearance 129.28 ml/min; Globulin 4.4 g/dL (2.2-4.2); Glucose 126 mg/dL (74-106); Lipase 21 U/L (13-75); Protein, Total 8.8 g/dL (6.4-8.2); Sodium Level 139 mmol/L (136-145)
[2023-12-04 12:13] VITALS: BP 142/109; PULSE 73; RESP 18; O2SAT 97
== END 2023-12-04 13:03 | disposition home or self-care (01) ==
PROVIDERS: Emergency Provider Emergency Medicine; Visit Provider Emergency Medicine
DX: R10.9 Unspecified abdominal pain (principal); R11.15 Cyclical vomiting syndrome unrelated to migraine; F12.90 Cannabis use, unspecified, uncomplicated; F17.290 Nicotine dependence, other tobacco product, uncomplicated
CPT/HCPCS: 80053; 83690; 84703; 85025; 96374; 96375; 96376; 99283; A4216; J2405

== ENCOUNTER 2023-12-05 11:03 | Emergency (ER) | payer OTHER, MEDICAID, SELFPAY ==
[2023-12-05 11:05] VITALS: BP 126/99; PULSE 122; RESP 18; TEMP 36.5; O2SAT 98; BMI 32.2
--- NOTE | 2023-12-05 12:13 | CT_ITS ---
STUDY: CT ABDOMEN AND PELVIS WITHOUT CONTRAST REASON FOR EXAM: Female, 22 years old. abdominal / back pain. Hematuria. RADIATION DOSAGE (If Supplied By Facility): CTDIvol = ( 14.15 ) mGy, DLP = ( 746.04 ) mGycm TECHNIQUE: Transaxial images were obtained from the dome of the diaphragm to the symphysis pubis without oral contrast, and without intravenous contrast. Sagittal and coronal images were reconstructed. Individualized dose optimization techniques were used for this CT. COMPARISON: None. FINDINGS: The visualized lung bases are unremarkable. The visualized portions of the heart are within normal limits. Normal liver. There are surgical clips in the gallbladder fossa consistent with a prior cholecystectomy. Normal spleen. Normal pancreas. Normal bilateral adrenal glands. Normal right kidney. Normal left kidney. Normal visualized stomach. Normal small intestine. Normal colon. The appendix is visualized and appears normal. Normal abdominal aorta. Normal inferior vena cava. Normal retroperitoneum. Normal urinary bladder. There is a 3.2 cm x 2.7 cm fat-containing mass in the right ovary. This most likely represents a dermoid cyst. This is unchanged. Follicles are seen in the left ovary. Normal abdominal wall. Normal osseous structures. CT/Abdomen/Pelvis without Cont IMPRESSION: Stable 3.2 cm x 2.7 cm fat-containing mass in the right ovary suggestive of a dermoid. Electronically Signed: Anil Hassan MD at 13:26 EDT ,
--- NOTE | 2023-12-05 12:16 | EDS_ITS ---
HPI History of Present Illness Chief Complaint: Complaint Detail of Chief Complaint: Back and abdomen pain and dark urine Informant: patient Narrative Narrative: Patient presents with abnormal color to urine since yesterday. She describes some upper abdomen and low back pain. She states she was in the emergency department and had blood work that was normal and was discharged. She denies dysuria urgency or frequency. No history of kidney stones. She has had a prior tubal ligation and does not think she is . She denies fevers or chills or sweats. Currently rates her pain a 5 out of 10 and it is diffuse from the upper abdomen down to the lower abdomen [facility] Medical History IBS (irritable bowel syndrome) Ovarian cyst Marijuana use Wears glasses Gastric reflux Shortness of breath on exertion History of IBS Vapes nicotine containing substance Gastroparesis Vaginal delivery ADHD IBS (irritable bowel syndrome) Encounter for induction of labor Rh negative state in antepartum period Depression affecting IUGR (intrauterine growth restriction) Low iron Marijuana use Syncope Upper abdominal pain Nausea & vomiting Anemia Depression Anxiety Asthma Home Medications ?Medication ?Instructions ?Recorded ?Last Taken ?Type albuterol sulfate 90 mcg/actuation 2 inh inhalation PRN asthma #8.5 05/15/23 06/22/23 04:30 Rx aerosol inhaler grams alprazolam 1 mg tablet 1 mg PO QHS PRN sleep #30 tabs 08/26/23 Unknown Rx ondansetron 4 mg disintegrating 4 mg PO Q6H PRN nausea and 12/04/23 Unknown Rx tablet vomiting #10 tabs Allergy/AdvReac Type Severity Reaction Status Date / Time No Known Allergies Allergy Verified 12/05/23 11:07 Family History Father Diabetes Mother Depression Grandmother Breast cancer Surgical History Tubal ligation status History of esophagogastroduodenoscopy (EGD) History of cholecystectomy (~09/2021) H/O dilation and curettage History of adenoidectomy Hx of tonsillectomy Social History household members: significant other Smoking Status: Current every day smoker tobacco type: e-cigarettes alcohol intake: never substance use type: marijuana ROS ROS ED Review of Systems ROS Unobtainable: other Constitutional Constitutional ED: Reports lethargy; Denies chills, fever(s), sweats or weight loss Eyes Eyes: Denies blurry vision, change in vision or diplopia ENT ENT ED: Denies rhinorrhea or sore throat Cardiovascular Cardiovascular: Denies chest pain, orthopnea or racing heartbeat Respiratory/Chest Respiratory/Chest: Denies cough, dyspnea, dyspnea on exertion, orthopnea or sputum Gastrointestinal Gastrointestinal: Reports abdominal pain; Denies diarrhea, nausea or vomiting Genitourinary Genitourinary ED: Reports other Details: Dark urine ; Denies dysuria, hematuria or urinary frequency Musculoskeletal Musculoskeletal: Reports back pain; Denies arthralgias, myalgias or neck pain Integumentary Denies abscess, Abrasions or rash Neurologic Neurologic: Denies headache(s) or weakness Psychiatric Psychiatric: Denies anxiety, depression or suicidal thoughts Endocrine Endocrinology: Denies polydipsia, polyphagia or polyuria Hematologic/Lymphatic Hematologic/Lymphatic: Denies easy bleeding, easy bruising or lymphadenopathy Allergic/Immunologic Allergic/Immunologic ED: Denies mouth swelling, tongue swelling or urticaria EXAM Physical Exam Const Vital Signs: 12/05/23 11:05 12/05/23 12:36 12/05/23 13:04 Temperature 97.7 F L 97.7 F L Temperature Source Oral Temporal Pulse Rate 122 H 122 H 99 Respiratory Rate 18 18 16 Blood Pressure 126/99 H 126/99 H 122/96 H Blood Pressure Mean 108 108 104 Pulse Ox 98 98 98 Oxygen Delivery Method Room Air Room Air Positive well nourished and well developed General Appearance ED: well developed and NAD HEENT Reports TM's clear and moist mucous membranes normocephalic and atraumatic; Negative for trauma or tenderness Tympanic Membrane ED: Yes TM's clear Eyes PERRL and EOMs intact bilaterally General Eye ED: Negative for pale conjunctiva or scleral icterus Neck no lymphadenopathy, supple and no JVD General: Negative for tenderness Chest Wall inspection of chest normal and palpation of chest normal Chest: Negative for tenderness Resp normal respiratory effort and clear to auscultation bilaterally Effort and Inspection: Negative for respiratory distress or pain with movement Auscultation: Negative for rhonchi, wheezes or diminished lung sounds Cardio regular rate, regular rhythm, S1 normal heart sound, S2 normal heart sound and no murmurs Peripheral Pulses: pulses 2+ throughout GI normal to inspection, nondistended, normoactive bowel sounds, soft to palpation, non-distended and no masses GI Narrative: Mild diffuse tenderness throughout the abdomen. There is no rebound, rigidity, or peritoneal signs. No mass palpated. Back/Spine no CVA tenderness and no thoracic nor lumbar tenderness Back/Spine Narrative: No bony tenderness over the thoracic or lumbar spine. She has some mild CVA tenderness bilaterally. Extremity normal to inspection General Extremety ED: Negative for edema General Extremity: Negative for edema Neuro oriented x3, CN's II-XII intact bilaterally, no sensory deficits noted and gait normal Sensorium / Orientation: awake, alert, oriented to person, oriented to place and oriented to time Motor Exam: strength 5/5 throughout and strength abnormal Psych mental status grossly normal Skin no rashes or lesions noted and no wounds MDM MDM MDM Narrative Medical decision making narrative: Patient presents with dark urine without dysuria or frequency. Recent seen in the emergency department for some abdomen and back pain and had an essentially negative workup via labs. No imaging was done at that time. Clinically she looks well. In the differential would be UTI versus other acute intra-abdominal process such as Wild or appendicitis. Patient had a urinalysis obtained that showed 25-50 RBCs with +1 bacteria and only 0-5 WBCs and 25 leukocyte esterase. I did send off a urine culture. CT scan of the abdomen and pelvis showed a likely dermoid cyst on the right ovary. This point etiology for her abdominal pain and back pain unclear. Recommend she follow-up with her UNDER TRIMMER within the next 3 to 5 days to get her culture results. She is advised to return if fever, vomiting, or condition should worsen anyway. Patient did not want thing for pain here. Etiology of the hematuria unclear. Patient did finish her menstrual period on the 13th of this month. Recommended she push fluids. Lab Data Attestation: I reviewed the patient's lab results. Labs: Laboratory Results - last 24 hr 12/05/23 12:26 Urine Color Yellow Urine Clarity Sl. Cloudy Urine pH 6.0 Ur Specific [place] 1.015 Urine Protein 100 H Urine Glucose (UA) Normal Urine Ketones Negative Urine Occult Blood 250 H Urine Nitrite Negative Urine Bilirubin Negative Urine Urobilinogen 1 H Ur Leukocyte Esterase 25 H Urine RBC 25-50 SEEN Urine WBC 0-5 SEEN Ur Squamous Epith Cells 0-5 SEEN Urine Bacteria 1+ Urine Mucus 1+ Radiography Diagnostic Testing: Clinical Impression(s) from Imaging Studies Abdomen/Pelvis CT 12/05/23 12:13 IMPRESSION: Stable 3.2 cm x 2.7 cm fat-containing mass in the right ovary suggestive of a dermoid. Electronically Signed: Anil Hassan MD at 13:26 EDT , Discharge Plan Triage Chief Complaint: Complaint ED Provider: Charito Berman Dx/Rx/DC Orders Clinical Impression: Abdominal pain, Back pain Instructions: ED Abdominal Pain Unkn Cause Fem, ED Back Pain (Acute or Chronic) Prescriptions: No Action alprazolam 1 mg tablet 1 mg PO QHS PRN (Reason: sleep) Qty: 30 1RF albuterol sulfate 90 mcg/actuation HFA aerosol inhaler 2 inh INHALATION PRN Qty: 8.5 0RF ondansetron 4 mg tablet,disintegrating 4 mg PO Q6H PRN (Reason: nausea and vomiting) Qty: 10 0RF Primary Care Provider: Care Physician,No Primary Referrals: Pablo Mckeon MD [Med Staff - Active Staff] - 3-5 Days Care Physician,No Primary [Primary Care Provider] - Print Language: Amharic Disposition Disposition: Home, Self Care
[2023-12-05 12:36] VITALS: BP 126/99; PULSE 122; RESP 18; TEMP 36.5; O2SAT 98
[2023-12-05 12:37] LABS: Color, Urine Yellow (Yellow); Glucose, Dipstick Normal (Normal); Ketone-Dipstick Negative (Negative); Leukocyte Esterase-Dipstick 25 /ul (Negative); Nitrite-Dipstick Negative (Negative); Occult Blood-Urine 250 /ul (Negative); Protein-Dipstick 100 mg/dl (Negative); Specific Gravity, Urine 1.015 (1.002-1.030); Urine Bilirubin Dipstick Negative (Negative); Urine Clarity Sl. Cloudy (Clear); Urine Urobilinogen 1 mg/dl (Normal)
[2023-12-05 12:45] LABS: Bacteria 1+ /hpf (None Seen); Mucous, Urine 1+ /hpf (<or=2+); Red Blood Cells-Urine 25-50 SEEN /hpf (0-5); Squamous Epithelial Cells - UA 0-5 SEEN /hpf (5-10)
[2023-12-05 12:46] LABS: White Blood Cells 0-5 SEEN /hpf (0-5)
[2023-12-05 13:04] VITALS: BP 122/96; PULSE 99; RESP 16; O2SAT 98
[2023-12-05 15:00] VITALS: BP 119/84; PULSE 86; RESP 16; O2SAT 99
[2023-12-05 15:06] VITALS: BP 119/84; PULSE 86; RESP 16; TEMP 36.7; O2SAT 99
== END 2023-12-05 15:07 | disposition home or self-care (01) ==
PROVIDERS: Emergency Provider Emergency Medicine; Visit Provider Emergency Medicine
DX: R10.9 Unspecified abdominal pain (principal); M54.50 Low back pain, unspecified; D27.0 Benign neoplasm of right ovary; F17.290 Nicotine dependence, other tobacco product, uncomplicated
CPT/HCPCS: 74176; 81001; 87086; 87088; 99282

== ENCOUNTER 2023-12-23 05:53 | Emergency (ER) | payer OTHER, MEDICAID, SELFPAY ==
[2023-12-23 05:54] VITALS: BP 140/128; PULSE 18; RESP 18; TEMP 36.7; O2SAT 98; BMI 31.5
--- NOTE | 2023-12-23 05:59 | ED.RN ---
Pt states that her nausea and vomiting has been consistent over the last three years, the pain is the only thing that has worsened. MD notified.
[2023-12-23 06:00] VITALS: BP 115/70
--- NOTE | 2023-12-23 06:14 | EX.ED.DYSGE1 ---
HPI History of Present Illness Chief Complaint: Abd Pain Informant: patient Narrative Narrative: 23-year-old female presenting to the emergency room with pelvic pain. This is the same pain the patient has had for several years now. Patient has had multiple emergency department evaluations. She tells me that the dermoid cyst on her right ovary is now 5 cm. However on her CT of the abdomen pelvis that was performed about 2 weeks ago it measured 3.2 x 2.7 cm. This was read by radiology as stable. Patient states that her DISABILITY INSURANCE HEARING OFFICER that she is seeing into the [facility] has told her that whenever her pain gets bad she should come to the emergency room. She states that they are not writing her any medication for pain but she has an upcoming appointment to discuss possible surgery to remove the dermoid cyst. [facility] Medical History IBS (irritable bowel syndrome) Ovarian cyst Marijuana use Wears glasses Gastric reflux Shortness of breath on exertion History of IBS Vapes nicotine containing substance Gastroparesis Vaginal delivery ADHD IBS (irritable bowel syndrome) Encounter for induction of labor Rh negative state in antepartum period Depression affecting IUGR (intrauterine growth restriction) Low iron Marijuana use Syncope Upper abdominal pain Nausea & vomiting Anemia Depression Anxiety Asthma Home Medications ?Medication ?Instructions ?Recorded ?Last Taken ?Type albuterol sulfate 90 mcg/actuation 2 inh inhalation PRN asthma #8.5 05/15/23 06/22/23 04:30 Rx aerosol inhaler grams Allergy/AdvReac Type Severity Reaction Status Date / Time No Known Allergies Allergy Verified 12/23/23 05:54 Family History Father Diabetes Mother Depression Grandmother Breast cancer Surgical History Tubal ligation status History of esophagogastroduodenoscopy (EGD) History of cholecystectomy (~09/2021) H/O dilation and curettage History of adenoidectomy Hx of tonsillectomy Social History household members: significant other Smoking Status: Current every day smoker tobacco type: e-cigarettes alcohol intake: never substance use type: marijuana ROS ROS ED Constitutional Constitutional ED: Denies chills, fever(s) or weight loss Eyes Eyes: Denies change in vision or diplopia ENT ENT ED: Denies ear pain, rhinorrhea or sore throat Cardiovascular Cardiovascular: Denies chest pain, orthopnea, palpitations or racing heartbeat Respiratory/Chest Respiratory/Chest: Denies cough, dyspnea or orthopnea Gastrointestinal Gastrointestinal: Reports abdominal pain, nausea, vomiting and other; Denies diarrhea Genitourinary Genitourinary ED: Denies dysuria, hematuria or urinary frequency Musculoskeletal Musculoskeletal: Reports back pain; Denies arthralgias or myalgias Integumentary Denies abscess or rash Neurologic Neurologic: Denies headache(s) or weakness Psychiatric Psychiatric: Denies anxiety, depression, suicidal ideation or suicidal thoughts Endocrine Endocrinology: Denies polydipsia, polyphagia or polyuria Allergic/Immunologic Allergic/Immunologic ED: Denies mouth swelling, tongue swelling or urticaria EXAM Physical Exam Const Vital Signs: 12/23/23 05:54 12/23/23 06:00 Temperature 98.1 F Temperature Source Oral Pulse Rate 18 L Respiratory Rate 18 Blood Pressure 140/128 H 115/70 Blood Pressure Mean 132 85 Pulse Ox 98 Oxygen Delivery Method Room Air Positive well nourished and well developed Constitutional Narrative: Very dramatic affect with the patient bent over at the waist holding onto the bed and shaking all over. General Appearance ED: well developed HEENT Reports normocephalic, head/scalp atraumatic and moist mucous membranes Eyes PERRL and EOMs intact bilaterally Neck no lymphadenopathy, supple and no JVD Resp normal respiratory effort and clear to auscultation bilaterally Cardio regular rate, regular rhythm and no murmurs GI Palpation: soft Back/Spine no CVA tenderness and normal ROM Extremity normal to inspection General Extremety ED: Negative for edema General Extremity: Negative for edema Neuro oriented x3 and CN's II-XII intact bilaterally Sensorium / Orientation: alert Motor Exam: strength 5/5 throughout Psych mental status grossly normal Skin no rashes or lesions noted and no wounds MDM MDM MDM Narrative Medical decision making narrative: The patient is presenting with her chronic lower abdominal pain radiating to the back with nausea. She has had multiple ED and outpatient workups for this. I will write for her to have a dose of Toradol and Zofran. I do not believe that we should provide narcotics for ongoing chronic pain. She just underwent an ED evaluation for the same at the end of November. History & Record Review Discussion w/independent historian: Patient Additional record(s) reviewed:: Prior ED visit and Prior labs Discharge Plan Triage Chief Complaint: Abd Pain ED Provider: London Elmore Dx/Rx/DC Orders Prescriptions: No Action albuterol sulfate 90 mcg/actuation HFA aerosol inhaler 2 inh INHALATION PRN Qty: 8.5 0RF Primary Care Provider: Care Physician,No Primary Referrals: Care Physician,No Primary [Primary Care Provider] - Print Language: Citizen Of [place]
[2023-12-23] MEDS: Ketorolac 60 MG/2 ML Vial IM (06:20)
[2023-12-23] MEDS: Ondansetron ODT 4 MG Tablet PO (06:20)
[2023-12-23 06:43] VITALS: BP 102/80; PULSE 90; RESP 16; TEMP 36.7; O2SAT 97
== END 2023-12-23 06:45 | disposition home or self-care (01) ==
PROVIDERS: Emergency Provider Emergency Medicine; Visit Provider Emergency Medicine
DX: R10.9 Unspecified abdominal pain (principal); R11.0 Nausea; D27.0 Benign neoplasm of right ovary; K21.9 Gastro-esophageal reflux disease without esophagitis
CPT/HCPCS: 96372; 99282

== ENCOUNTER 2024-06-17 11:19 | Emergency (ER) | payer OTHER, MEDICAID, SELFPAY ==
[2024-06-17 11:20] VITALS: BP 119/105; PULSE 91; RESP 20; TEMP 36.4; O2SAT 99; BMI 28.0
--- NOTE | 2024-06-17 11:30 | CT_ITS ---
PROCEDURE: ABDOMEN/PELVIS W IV CONT ONLY 06/17/2024 REASON FOR EXAM: DIFFUSE ABD PAIN, N/V TECHNIQUE: Abdomen and pelvis CT with intravenous contrast. Coronal and Sagittal reconstruction series were provided. CONTRAST: 100 mL of Isovue 370 One or more dose reduction techniques were used (e.g., Automated exposure control, adjustment of the mA and/or kV according to patient size, use of iterative reconstruction technique. RADIATION DOSE SUMMARY: DLP: 855 mGycm COMPARISON: 12/05/23 FINDINGS: Limited sections of the lung bases demonstrate no focal pulmonary mass. The liver, spleen, pancreas, and both kidneys demonstrate no acute findings. Nodular thickening of the left adrenal gland; the right adrenal gland is unremarkable. The gallbladder is surgically absent. The stomach is unremarkable. The aorta and IVC demonstrate no acute findings. Scattered inflammation of the small bowel with fluid may reflect enteritis. No bowel obstruction. The appendix is not clearly identified, although there are no secondary signs of appendicitis. No bowel obstruction. The pelvic structures are intact. Grossly stable 3.2 x 3.3 cm fat-containing mass in the right ovary likely reflecting a dermoid cyst. The urinary bladder is partially distended. Visualized osseous structures demonstrate no acute abnormality. CT/Abdomen/Pelvis W IV Cont ONLY IMPRESSION: Scattered inflammation of the small bowel with fluid may reflect enteritis. No bowel obstruction. Reading Location: [facility]
--- NOTE | 2024-06-17 11:32 | ED.VIS.GI ---
HPI HPI - GI History of Present Illness Chief Complaint: Abd Pain Informant: patient Narrative Narrative: 23-year-old female presenting with severe diffuse abdominal pain and vomiting for the past 4 hours or so this morning. She states she is been having episodes of this pain for the past 3 years since she had a cholecystectomy and D&C. Typically she gets episodes every day, typically in the morning, often associated with vomiting, but taking a hot shower typically relieves the discomfort. She tried that today and did not work, she also tried other coping mechanisms such as back massage, none of which have helped and she is in severe pain. She states every few months she has what she calls a flareup like this where it gets bad. She denies any hematemesis. She been having normal bowel movements and urination except for urinating a lot just this morning. No dysuria or hematuria. No fevers or chills or trouble breathing. [facility] Medical History IBS (irritable bowel syndrome) Ovarian cyst Marijuana use Wears glasses Gastric reflux Shortness of breath on exertion History of IBS Vapes nicotine containing substance Gastroparesis Vaginal delivery ADHD IBS (irritable bowel syndrome) Encounter for induction of labor Rh negative state in antepartum period Depression affecting IUGR (intrauterine growth restriction) Low iron Marijuana use Syncope Upper abdominal pain Nausea & vomiting Anemia Depression Anxiety Asthma Home Medications ?Medication ?Instructions ?Recorded ?Last Taken ?Type albuterol sulfate 90 mcg/actuation 2 inh inhalation PRN asthma #8.5 05/15/23 06/17/24 Rx aerosol inhaler grams ibuprofen 400 mg tablet (IBU) 800 mg PO Q6H PRN fever or pain 06/17/24 06/17/24 History Allergy/AdvReac Type Severity Reaction Status Date / Time No Known Allergies Allergy Verified 06/17/24 11:22 Family History Father Diabetes Mother Depression Grandmother Breast cancer Surgical History Tubal ligation status History of esophagogastroduodenoscopy (EGD) History of cholecystectomy (~09/2021) H/O dilation and curettage History of adenoidectomy Hx of tonsillectomy Social History household members: significant other Smoking Status: Current every day smoker tobacco type: e-cigarettes alcohol intake: never substance use type: marijuana ROS ROS ED Constitutional Constitutional ED: Denies chills or fever(s) Eyes Eyes: Denies change in vision or diplopia ENT ENT ED: Denies rhinorrhea or sore throat Cardiovascular Cardiovascular: Denies chest pain or palpitations Respiratory/Chest Respiratory/Chest: Denies cough or dyspnea Gastrointestinal Gastrointestinal: Reports as per HPI, abdominal pain, nausea and vomiting; Denies diarrhea, hematemesis or melena Genitourinary Genitourinary ED: Reports urinary frequency; Denies dysuria or hematuria Musculoskeletal Musculoskeletal: Denies back pain or neck pain Integumentary Denies abscess or rash Neurologic Neurologic: Denies headache(s), paresthesias or weakness Psychiatric Psychiatric: Denies suicidal thoughts EXAM Physical Exam Const Vital Signs: 06/17/24 11:20 06/17/24 13:19 Temperature 97.6 F L Temperature Source Oral Pulse Rate 91 68 Respiratory Rate 20 H 18 Blood Pressure 119/105 H 132/60 H Blood Pressure Mean 109 84 Pulse Ox 99 98 Oxygen Delivery Method Room Air Positive well nourished and well developed Constitutional Narrative: Hunched over the bed standing on the floor and painful distress General Appearance ED: well developed HEENT Reports moist mucous membranes normocephalic and atraumatic Eyes PERRL and EOMs intact bilaterally Neck full ROM and supple Resp normal respiratory effort and clear to auscultation bilaterally Cardio regular rate, regular rhythm and no murmurs GI non-distended GI Narrative: Diffuse tenderness. No guarding or rebound. Nondistended, hypoactive bowel sounds. Palpation: soft Back/Spine no CVA tenderness General Back: other FROM Extremity normal to inspection General Extremety ED: Negative for edema, pulses abnormal or tenderness General Extremity: Negative for edema or pulses abnormal Neuro oriented x3, CN's II-XII intact bilaterally and no sensory deficits noted Sensorium / Orientation: awake and alert Motor Exam: strength 5/5 throughout Psych Mood & Affect: anxious and tearful Skin no rashes or lesions noted and no wounds MDM MDM MDM Narrative Medical decision making narrative: Patient was treated with IV Reglan, morphine. She is much better on reevaluation lying comfortably with her legs crossed speaking with family members on the phone. Her workup is normal. is negative ruling out ectopic, urinalysis negative for infection, her counts are normal, liver enzymes negative, lipase negative ruling out pancreatitis, and on my freelance interpreter/translator CT scan shows no acute abnormality. Radiology in agreement, saying that there is multiple areas of small bowel inflammation which is nonspecific, but no bowel obstruction. I agree with this report. Patient is doing well and stable for discharge and close outpatient follow-up. Lab Data Attestation: I reviewed the patient's lab results. Labs: Laboratory Results - last 24 hr 06/17/24 06/17/24 11:50 11:55 WBC 10.4 RBC 4.61 Hgb 14.2 Hct 40.1 MCV 87.0 MCH 30.8 MCHC 35.4 RDW Std Deviation 39.2 RDW Coeff of Connor 12.2 Plt Count 302 MPV 10.3 Immature Gran % (Auto) 0.500 Neut % (Auto) 75.4 H Lymph % (Auto) 19.0 Wood % (Auto) 3.4 Eos % (Auto) 1.0 Baso % (Auto) 0.7 Absolute Neuts (auto) 7.8 H Absolute Lymphs (auto) 1.97 Nucleated RBC % 0 Sodium 140 Potassium 4.1 Chloride 106 Carbon Dioxide 22.1 Anion Gap 12 BUN 6 Creatinine 0.66 L Estim Creat Clear Calc 135.59 Est GFR (MDRD) Non-Af 126 BUN/Creatinine Ratio 9.2 L Glucose 99 Calcium 8.8 Total Bilirubin 0.30 AST 15 ALT 8 Alkaline Phosphatase 69 Total Protein 7.7 Albumin 4.5 Globulin 3.2 Albumin/Globulin Ratio 1.4 Lipase 23 Serum , Qual NEGATIVE Urine Color Yellow Urine Clarity Clear Urine pH 6.0 Ur Specific [place] 1.020 Urine Protein 15 H Urine Glucose (UA) Normal Urine Ketones Negative Urine Occult Blood Negative Urine Nitrite Negative Urine Bilirubin Negative Urine Urobilinogen Normal Ur Leukocyte Esterase Negative Urine RBC 0 SEEN Urine WBC 0 SEEN Ur Squamous Epith Cells 0-5 SEEN Urine Bacteria 0 SEEN Urine Mucus 0 SEEN Radiography Diagnostic Testing: Clinical Impression(s) from Imaging Studies Abdomen/Pelvis CT 06/17/24 11:30 IMPRESSION: Scattered inflammation of the small bowel with fluid may reflect enteritis. No bowel obstruction. Reading Location: [facility] Discharge Plan Triage Chief Complaint: Abd Pain ED Provider: Davis Dorman Dx/Rx/DC Orders Clinical Impression: Diffuse abdominal pain Instructions: Abdominal Pain Prescriptions: No Action albuterol sulfate 90 mcg/actuation HFA aerosol inhaler 2 inh INHALATION PRN Qty: 8.5 0RF ibuprofen [IBU] 400 mg tablet 800 mg PO Q6H PRN (Reason: fever or pain) Primary Care Provider: Care Physician,No Primary Referrals: your doctor or linderman machine operator [Other] Print Language: [place] Disposition Disposition: Home, Self Care
[2024-06-17] MEDS: Morphine 4 MG/ML Syringe IV (11:52)
[2024-06-17] MEDS: Metoclopramide 10 MG/2 ML Vial 5 MG IV (11:52)
[2024-06-17] MEDS: 0.9% Normal Saline (1000mL) 1,000 ML 999 ML IV (11:53)
[2024-06-17 12:00] LABS: Bacteria 0 SEEN /hpf (None Seen); Mucous, Urine 0 SEEN /hpf (<or=2+); Red Blood Cells-Urine 0 SEEN /hpf (0-5); White Blood Cells 0 SEEN /hpf (0-5)
[2024-06-17 12:02] LABS: Color, Urine Yellow (Yellow); Glucose, Dipstick Normal (Normal); Ketone-Dipstick Negative (Negative); Leukocyte Esterase-Dipstick Negative /ul (Negative); Nitrite-Dipstick Negative (Negative); Occult Blood-Urine Negative /ul (Negative); Protein-Dipstick 15 mg/dl (Negative); Urine Bilirubin Dipstick Negative (Negative); Urine Clarity Clear (Clear); Urine Urobilinogen Normal (Normal)
[2024-06-17 12:02] LABS: Absolute Lymphocyte Count 1.97 X10^3/uL (0.83-4.51); Absolute Neutrophil Count 7.8 X10^3/uL (2.0-7.7); Basophil# 0.07 X10^3/uL; Basophil% 0.7 % (0-1); Hematocrit 40.1 % (37-47); Hemoglobin 14.2 g/dL (12.0-15.0); Lymphocyte # 1.97 X10^3/ul (0.83-4.51); Mean Corp Hgb Conc 35.4 g/dL (32-36); Mean Corpuscular Hgb 30.8 pg (27.0-32.0); Mean Platelet Vol. 10.3 fl (6.2-12.0); Monocyte# 0.35 X10^3/uL; Monocyte% 3.4 % (0-10); NRBC Flagged by Analyzer 0 % (0-5); Neutrophil # 7.81 X10^3/uL (2.7-7.7); Neutrophil % 75.4 % (47-70); Platelet Count 302 K/mm3 (150-450); RBC Distribution Width CV 12.2 % (11.6-14.6); RBC Distribution Width SD 39.2 fl (35.1-43.9); Red Blood Count 4.61 M/mm3 (4.2-5.4); White Blood Count 10.4 K/mm3 (4.4-11.0)
[2024-06-17 12:08] LABS: Squamous Epithelial Cells - UA 0-5 SEEN /hpf (5-10)
[2024-06-17 12:15] LABS: Internal QC Validated? YES +Cl - CLEAR BKGD; Pregnancy, Serum, hCG Quali. NEGATIVE Negative
[2024-06-17 12:26] LABS: ALB/GLOB Ratio 1.4 RATIO (0.9-2.4); AST(SGOT) 15 U/L (<=31); Alanine Aminotransfer ALT/SGPT 8 U/L (<=34); Albumin, Serum 4.5 g/dL (3.5-5.0); Alkaline Phosphatase 69 U/L (35-104); Anion Gap 12 (5-15); BUN 6 mg/dL (4-19); BUN/Creat Ratio 9.2 RATIO (10-20); Calcium,Total 8.8 mg/dL (7.6-11.0); Carbon Dioxide 22.1 mmol/L (21.0-32.0); Chloride 106 mmol/L (98-108); Creatinine, Serum 0.66 mg/dL (0.70-1.20); EST Glomerular Filtration Rate 126 (>60); Estimated Creatinine Clearance 135.59 ml/min (50-250); Globulin 3.2 g/dL (2.2-4.2); Glucose 99 mg/dL (70-99); Lipase 23 U/L (13-75); Potassium 4.1 mmol/L (3.3-5.1); Protein, Total 7.7 g/dL (5.9-8.4); Sodium Level 140 mmol/L (133-145)
[2024-06-17 13:19] VITALS: BP 132/60; PULSE 68; RESP 18; O2SAT 98
[2024-06-17 13:39] VITALS: BP 132/60; PULSE 68; RESP 18; TEMP 36.6; O2SAT 98
== END 2024-06-17 13:42 | disposition home or self-care (01) ==
PROVIDERS: Emergency Provider Emergency Medicine; Visit Provider Emergency Medicine
DX: R10.84 Generalized abdominal pain (principal); F17.290 Nicotine dependence, other tobacco product, uncomplicated; Z79.51 Long term (current) use of inhaled steroids
CPT/HCPCS: 74177; 80053; 81001; 83690; 84703; 85025; 96361; 96374; 96375; 99283; Q9967; A4216

== ENCOUNTER 2024-08-23 17:20 | Emergency (ER) | payer OTHER, MEDICAID, SELFPAY ==
[2024-08-23 17:20] VITALS: BP 146/99; PULSE 87; RESP 16; TEMP 36.4; O2SAT 99; BMI 28.5
--- NOTE | 2024-08-23 18:45 | EDS_ITS ---
HPI History of Present Illness Chief Complaint: Abd Pain Narrative Narrative: Chief complaint and HPI: 23-year-old female presents for evaluation of abdominal pain. History taken by patient as well as medical record. Patient states for the past 3 years she has had chronic abdominal pain. States that it always worsens the week before her menstrual cycle. She is due to start her menstrual cycle in a week. States she has seen [facility]ACT[facility] MANAGER as she is concerned it may be endometriosis however after evaluation they do not feel that this is the source of the patient's pain and declined doing exploratory laparotomy. Patient states that she does not take Tylenol or Motrin for the pain. She tries warm showers and heating pads with some relief. Patient states that her typical regiment did not help this time which is why she presents to the emergency department. She states it feels like her typical chronic pain. She denies any fever, chills, URI symptoms, shortness of breath, chest pain, nausea, vomiting, dysuria. Has a history of a tubal ligation. Review of systems: See HPI Medications: As listed on the chart Allergies: As listed on the chart PFSH: Per chart Vital signs: As listed on the chart. Reviewed. Physical exam: Gen: A&O x3, NAD Head: Normocephalic, atraumatic Eyes: No sclera icterus, conjunctiva clear ENT: Moist mucous membranes Neck: Trachea midline, No JVD CV: RRR, no murmurs, no peripheral edema Resp: Lungs CTA BL, no w/r/c GI: Abd soft, non-distended, mild tender to palpation diffusely, no r/r/g : No CVA tenderness Musc: Full ROM, no deformity Skin: Warm, dry Neuro: Alert, oriented, grossly intact, sensation intact Psych: Cooperative, appropriate mood and affect [facility] Medical History (Updated 08/23/24 @ 20:[address] Kody العلي, ) Nausea & vomiting IBS (irritable bowel syndrome) Ovarian cyst Marijuana use Wears glasses Gastric reflux Shortness of breath on exertion History of IBS Vapes nicotine containing substance Gastroparesis Vaginal delivery ADHD IBS (irritable bowel syndrome) Encounter for induction of labor Rh negative state in antepartum period Depression affecting IUGR (intrauterine growth restriction) Low iron Marijuana use Syncope Upper abdominal pain Anemia Depression Anxiety Asthma Home Medications ?Medication ?Instructions ?Recorded ?Last Taken ?Type albuterol sulfate 90 mcg/actuation 2 inh inhalation ND N asthma #8.5 05/15/23 06/17/24 Rx aerosol inhaler grams ibuprofen 400 mg tablet (IBU) 800 mg PO Q6H PRN fever or pain 06/17/24 06/17/24 History alprazolam 0.5 mg tablet 0.5 mg PO QHS PRN sleep #20 tabs 07/12/24 Unknown Rx haloperidol 1 mg tablet 1 mg PO QHS #20 tabs 5 Unknown Rx pantoprazole 40 mg tablet,delayed 40 mg PO DAILY #30 t abs 07/12/24 Unknown Rx release Allergy/AdvReac Type Severity Reaction Status Date / Time No Known Allergies Allergy Verified 08/23/24 17:21 Family History Father Diabetes Mother Depression Grandmother Breast cancer Surgical History Tubal ligation status History of esophagogastroduodenoscopy (EGD) History of cholecystectomy (~09/2021) H/O dilation and curettage History of adenoidectomy Hx of tonsillectomy Social History household members: significant other Smoking Status: Current some day smoker tobacco type: e-cigarettes alcohol intake: never substance use type: marijuana EXAM Physical Exam Const Vital Signs: 08/23/24 17:20 08/23/24 19:20 Temperature 97.6 F L Temperature Source Oral Pulse Rate 87 79 Respiratory Rate 16 15 Blood Pressure 146/99 H Blood Pressure Mean 114 Pulse Ox 99 100 Oxygen Delivery Method Room Air MDM MDM MDM Narrative Medical decision making narrative: 23-year-old female presents for evaluation of abdominal pain. History taken by patient as well as medical record. Patient states for the past 3 years she has had chronic abdominal pain. States that it always worsens the week before her menstrual cycle. She is due to start her menstrual cycle in a week. States this episode feels like her typical chronic abdominal pain flare. She has tried heating pad, warm showers, massage with little relief. On chart review, patient has been seen multiple times in emergency department for the same complaint. Differential diagnosis includes but is not limited to dysmenorrhea, endometriosis, IBS, pancreatitis, UTI, ectopic . Given that this feels like her chronic abdominal pain flare, I do not think any CT abdomen pelvis is needed at this time. NS bolus, Zofran, morphine ordered for symptoms. Laboratory workup ordered including urine. CBC with leukocytosis of 15.9. No anemia. CMP unremarkable. Lipase unremarkable. Serum negative. UA negative for UTI. Positive for ketones. Patient is mildly dehydrated. On reevaluation, patient's pain is improved. She will be given a Zofran prescription for nausea. Given that her symptoms always worse and a week between her period, concern is for endometriosis. Recommend following up with ACCOUNTING PRACTICE MANAGER. She confirmed understanding of plan. Recommended following up with PCP. Return precautions explained. Impression: 1. Abdominal pain with history of chronic abdominal pain 2. Mild dehydration Lab Data Labs: Laboratory Results - last 24 hr 08/23/24 08/23/24 18:40 20:00 WBC 15.9 H RBC 4.43 Hgb 13.3 Hct 38.1 MCV 86.0 MCH 30.0 MCHC 34.9 RDW Std Deviation 39.9 RDW Coeff of Connor 12.8 Plt Count 309 MPV 10.0 Immature Gran % (Auto) 0.500 Neut % (Auto) 83.5 H Lymph % (Auto) 11.[address] [place] % (Auto) 3.5 Eos % (Auto) 0.1 Baso % (Auto) 0.6 Absolute Neuts (auto) 13.3 H Absolute Lymphs (auto) 1.88 Nucleated RBC % 0 Sodium 138 Potassium 4.0 Chloride 101 Carbon Dioxide 23.1 Anion Gap 14 BUN 12 Creatinine 0.68 L Estim Creat Clear Calc 132.75 Est GFR (MDRD) Non-Af 125 BUN/Creatinine Ratio 17.7 Glucose 79 Calcium 9.0 Total Bilirubin 0.55 AST 20 ALT 10 Alkaline Phosphatase 63 Total Protein 7.5 Albumin 4.5 Globulin 3.0 Albumin/Globulin Ratio 1.5 Lipase 22 Serum , Qual NEGATIVE Urine Color Yellow Urine Clarity Sl. Cloudy Urine pH 6.5 Ur Specific [place] 1.015 Urine Protein 30 H Urine Glucose (UA) Normal Urine Ketones 150 A* Urine Occult Blood Negative Urine Nitrite Negative Urine Bilirubin Negative Urine Urobilinogen Normal Ur Leukocyte Esterase Negative Urine RBC 0 SEEN Urine WBC 0-5 SEEN Ur Squamous Epith Cells 0-5 SEEN Urine Bacteria RARE Urine Mucus 1+ Discharge Plan Triage Chief Complaint: Abd Pain ED Provider: Kody العلي Dx/Rx/DC Orders Clinical Impression: Abdominal pain, chronic, generalized Instructions: ED Abdominal Pain Unkn Cause Fem Prescriptions: No Action pantoprazole 40 mg tablet,delayed release (DR/EC) 40 mg PO DAILY Qty: 30 1RF alprazolam 0.5 mg tablet 0.5 mg PO QHS PRN (Reason: sleep) Qty: 20 0RF haloperidol 1 mg tablet 1 mg PO QHS Qty: 20 0RF albuterol sulfate 90 mcg/actuation HFA aerosol inhaler 2 inh INHALATION PRN Qty: 8.5 0RF ibuprofen [IBU] 400 mg tablet 800 mg PO Q6H PRN (Reason: fever or pain) Primary Care Provider: Care Physician,No Primary Referrals: Anil Austin MD [Med Staff - Active Staff] - 3-5 Days Donna Gonzales MD [Med Staff - Active Staff] - 3-5 Days Print Language: Tuvaluan Disposition Disposition: Home, Self Care
[2024-08-23] MEDS: 0.9% Normal Saline (1000mL) 1,000 ML 999 ML IV (18:53)
[2024-08-23 19:00] LABS: Hematocrit 38.1 % (37-47); Hemoglobin 13.3 g/dL (12.0-15.0); Immature Granulocytes Count 0.080 X10^3/uL (0.0-0.0); Mean Corp Hgb Conc 34.9 g/dL (32-36); Mean Corpuscular Volume 86.0 fL (81-99); Mean Platelet Vol. 10.0 fl (6.2-12.0); NRBC Flagged by Analyzer 0 % (0-5); Platelet Count 309 K/mm3 (150-450); RBC Distribution Width CV 12.8 % (11.6-14.6); RBC Distribution Width SD 39.9 fl (35.1-43.9); Red Blood Count 4.43 M/mm3 (4.2-5.4); White Blood Count 15.9 K/mm3 (4.4-11.0)
[2024-08-23 19:18] LABS: Internal QC Validated? YES +Cl - CLEAR BKGD; Pregnancy, Serum, hCG Quali. NEGATIVE Negative; Record Kit Lot#, Serum Preg. 0000962302
[2024-08-23 19:20] VITALS: PULSE 79; RESP 15; O2SAT 100
[2024-08-23 19:41] LABS: AST(SGOT) 20 U/L (<=31); Alanine Aminotransfer ALT/SGPT 10 U/L (<=34); Albumin, Serum 4.5 g/dL (3.5-5.0); Alkaline Phosphatase 63 U/L (35-104); Anion Gap 14 (5-15); BUN 12 mg/dL (4-19); BUN/Creat Ratio 17.7 RATIO (10-20); Calcium,Total 9.0 mg/dL (7.6-11.0); Carbon Dioxide 23.1 mmol/L (21.0-32.0); Chloride 101 mmol/L (98-108); Estimated Creatinine Clearance 132.75 ml/min (50-250); Globulin 3.0 g/dL (2.2-4.2); Glucose 79 mg/dL (70-99); Lipase 22 U/L (13-75); Potassium 4.0 mmol/L (3.3-5.1)
[2024-08-23 20:11] LABS: Red Blood Cells-Urine 0 SEEN /hpf (0-5)
[2024-08-23 20:12] LABS: Color, Urine Yellow (Yellow); Glucose, Dipstick Normal (Normal); Leukocyte Esterase-Dipstick Negative /ul (Negative); Nitrite-Dipstick Negative (Negative); Occult Blood-Urine Negative /ul (Negative); Protein-Dipstick 30 mg/dl (Negative); Specific Gravity, Urine 1.015 (1.002-1.030); Urine Bilirubin Dipstick Negative (Negative)
[2024-08-23 20:22] LABS: Ketone-Dipstick 150 mg/dl (Negative)
[2024-08-23 20:27] LABS: Mucous, Urine 1+ /hpf (<or=2+); Squamous Epithelial Cells - UA 0-5 SEEN /hpf (5-10)
[2024-08-23 21:00] VITALS: BP 118/75; PULSE 78; RESP 17; O2SAT 100
[2024-08-23 21:19] VITALS: BP 118/75; PULSE 78; RESP 17; TEMP 36.6; O2SAT 100
== END 2024-08-23 21:20 | disposition home or self-care (01) ==
PROVIDERS: Emergency Provider Surgery; Visit Provider Surgery
DX: R10.84 Generalized abdominal pain (principal); G89.29 Other chronic pain; E86.0 Dehydration; F17.290 Nicotine dependence, other tobacco product, uncomplicated
CPT/HCPCS: 80053; 81001; 83690; 84703; 85025; 96361; 96374; 96375; 99283; A4216; J2405

== ENCOUNTER 2024-08-24 10:51 | Emergency (ER) | payer OTHER, MEDICAID, SELFPAY ==
[2024-08-24 10:51] VITALS: BP 132/109; PULSE 84; RESP 22; TEMP 36.6; O2SAT 100
[2024-08-24 11:23] VITALS: BMI 27.8
[2024-08-24] MEDS: 0.9% Normal Saline (1000mL) 1,000 ML 999 ML IV (11:41)
[2024-08-24 11:44] LABS: Hematocrit 37.9 % (37-47); Hemoglobin 13.3 g/dL (12.0-15.0); Immature Granulocytes Count 0.040 X10^3/uL (0.0-0.0); Mean Corp Hgb Conc 35.1 g/dL (32-36); Mean Corpuscular Volume 86.1 fL (81-99); Mean Platelet Vol. 10.0 fl (6.2-12.0); NRBC Flagged by Analyzer 0 % (0-5); Platelet Count 283 K/mm3 (150-450); RBC Distribution Width CV 12.9 % (11.6-14.6); RBC Distribution Width SD 40.3 fl (35.1-43.9); Red Blood Count 4.40 M/mm3 (4.2-5.4); White Blood Count 11.7 K/mm3 (4.4-11.0)
--- NOTE | 2024-08-24 12:01 | EDS_ITS ---
HPI HPI - Female History of Present Illness Chief Complaint: Female C/O Informant: patient Narrative Narrative: Patient is 20-year-old female with history of gastroparesis, IBS, daily marijuana use and chronic abdominal pain presenting with recurrent/worsening abdominal pain, nausea and vomiting. Patient was seen in the ER last night for similar symptoms. At that time she received medication including IV fluids, Zofran and morphine. She states morphine wore off by the time she left and she has continued pain. Her normal coping mechanisms which include heating pads, hip swaying and back massage have not been helping which is what brought her back to the emergency room. Patient states her bowel movements have been regular. She denies any urinary symptoms. She notes that this feels like her prior episodes of her abdominal pain but is more severe than normal. She is due for her menstrual cycle any day now. There seems to be a correlation with her menstrual cycles. She follows with [facility]PLOYEE'S REPRESENTATIVE but was given referrals as per patient they have refused to do a diagnostic laparoscopy to diagnose endometriosis. Denies any fever or chills. Does note a red rash in the back of her throat but denies any sore throat or other infectious symptoms. No other complaints or concerns at this time. Note that she has put her finger in her mouth to try to get her self to vomit to help with her symptoms. Notes that she has also seen GI in the past for her symptoms. [facility] Medical History Nausea & vomiting IBS (irritable bowel syndrome) Ovarian cyst Marijuana use Wears glasses Gastric reflux Shortness of breath on exertion History of IBS Vapes nicotine containing substance Gastroparesis Vaginal delivery ADHD IBS (irritable bowel syndrome) Encounter for induction of labor Rh negative state in antepartum period Depression affecting IUGR (intrauterine growth restriction) Low iron Marijuana use Syncope Upper abdominal pain Anemia Depression Anxiety Asthma Home Medications ?Medication ?Instructions ?Recorded ?Last Taken ?Type albuterol sulfate 90 mcg/actuation 2 inh inhalation CA N asthma #8.5 05/15/23 06/17/24 Rx aerosol inhaler grams ibuprofen 400 mg tablet (IBU) 800 mg PO Q6H PRN fever or pain 06/17/24 06/17/24 History alprazolam 0.5 mg tablet 0.5 mg PO QHS PRN sleep #20 tabs 07/12/24 Unknown Rx haloperidol 1 mg tablet 1 mg PO QHS #20 tabs 5 Unknown Rx pantoprazole 40 mg tablet,delayed 40 mg PO DAILY #30 t abs 07/12/24 Unknown Rx release ondansetron 4 mg disintegrating 4 mg PO Q8H PRN PRN Na usea #10 tabs 08/23/24 Unknown Rx tablet haloperidol 1 mg tablet 1 mg PO Q8H PRN nausea and 0 08/24/24 Unknown Rx vomiting #20 tabs Allergy/AdvReac Type Severity Reaction Status Date / Time No Known Allergies Allergy Verified 08/24/24 10:51 Family History Father Diabetes Mother Depression Grandmother Breast cancer Surgical History Tubal ligation status History of esophagogastroduodenoscopy (EGD) History of cholecystectomy (~09/2021) H/O dilation and curettage History of adenoidectomy Hx of tonsillectomy Social History household members: significant other Smoking Status: Current some day smoker tobacco type: e-cigarettes alcohol intake: never substance use type: marijuana ROS ROS ED Constitutional Constitutional ED: Denies chills or fever(s) ENT ENT ED: Denies rhinorrhea or sore throat Cardiovascular Cardiovascular: Denies chest pain or palpitations Respiratory/Chest Respiratory/Chest: Denies cough or dyspnea Gastrointestinal Gastrointestinal: Reports abdominal pain, nausea and vomiting; Denies constipation, diarrhea or melena Genitourinary Genitourinary ED: Denies dysuria or hematuria Musculoskeletal Musculoskeletal: Denies arthralgias or neck pain Integumentary Denies rash Neurologic Neurologic: Denies weakness Psychiatric Psychiatric: Reports anxiety EXAM Physical Exam Const Vital Signs: 08/24/24 10:51 08/24/24 13:01 Temperature 98 F Temperature Source Temporal Pulse Rate 84 87 Respiratory Rate 22 H 16 Blood Pressure 132/109 H 132/89 H Blood Pressure Mean 116 103 Pulse Ox 100 99 Oxygen Delivery Method Room Air Room Air Positive well nourished and well developed General Appearance ED: well developed and NAD HEENT Reports moist mucous membranes HEENT Narrative: Scattered petechia and hard palate. No tonsillar exudate or edema present. Normal phonation. Normal midline uvula Eyes PERRL and EOMs intact bilaterally General Eye ED: Negative for pale conjunctiva or scleral icterus Neck supple and no JVD Chest Wall inspection of chest normal Resp normal respiratory effort and clear to auscultation bilaterally Cardio regular rate and regular rhythm GI normal to inspection, nondistended, normoactive bowel sounds and soft to palp ation Auscultation: normoactive bowel sounds Palpation: Negative for tender or guarding Back/Spine no CVA tenderness Extremity normal to inspection Neuro oriented x3 Sensorium / Orientation: alert Psych mental status grossly normal Mood & Affect: anxious Skin no rashes or lesions noted and no wounds MDM MDM MDM Narrative Medical decision making narrative: Patient evaluated for recurrent abdominal pain with associated nausea and vomiting. Differential includes acute surgical process (lower suspicion given the cyclic and recurrent nature of this), intra-abdominal infection, cannabis hyperemesis syndrome, endometriosis and cyclic vomiting syndrome as well as flareup of irritable bowel syndrome. Patient given IV Toradol, IV fluids and IV Haldol in the emergency room. On repeat evaluation she is feeling significantly improved. CBC is downtrending and now her white blood cell count is 11.7 (was 15 last night). She does not have a left shift. Lower suspicion for acute infection. Abdomen is soft on exam with no surgical findings. CMP and lipase normal. Urinalysis normal. Urine last night was negative I do not think needs to be repeated as it has been less than 24 hours. Patient be discharged home with a prescription for Haldol and encouraged to abstain from THC in case this is cannabis hyperemesis syndrome. Encouraged continued follow-up with EMPLOYEE'S REPRESENTATIVE in case this is endometriosis. She verbalized agreement understand this plan. Discharged home in stable condition. History & Record Review Discussion w/independent historian: Patient and Significant other Lab Data Attestation: I reviewed the patient's lab results. Labs: Laboratory Results - last 24 hr 08/24/24 08/24/24 11:40 12:14 WBC 11.7 H RBC 4.40 Hgb 13.3 Hct 37.9 MCV 86.1 MCH 30.2 MCHC 35.1 RDW Std Deviation 40.3 RDW Coeff of [place] 12.9 Plt Count 283 MPV 10.0 Immature Gran % (Auto) 0.300 Neut % (Auto) 75.0 H Lymph % (Auto) 17.4 L [place] % (Auto) 5.4 Eos % (Auto) 1.3 Baso % (Auto) 0.6 Absolute Neuts (auto) 8.8 H Absolute Lymphs (auto) 2.04 Nucleated RBC % 0 Sodium 139 Potassium 3.8 Chloride 105 Carbon Dioxide 21.1 Anion Gap 12 BUN 7 Creatinine 0.67 L Estim Creat Clear Calc 133.18 Est GFR (MDRD) Non-Af 126 BUN/Creatinine Ratio 10.6 Glucose 86 Calcium 9.0 Total Bilirubin 0.65 AST 20 ALT 11 Alkaline Phosphatase 60 Total Protein 7.4 Albumin 4.3 Globulin 3.1 Albumin/Globulin Ratio 1.4 Lipase 47 Urine Color Yellow Urine Clarity Clear Urine pH 6.5 Ur Specific [place] 1.015 Urine Protein 15 H Urine Glucose (UA) Normal Urine Ketones 5 H Urine Occult Blood Negative Urine Nitrite Negative Urine Bilirubin Negative Urine Urobilinogen Normal Ur Leukocyte Esterase Negative Urine RBC 0 SEEN Urine WBC 0 SEEN Ur Squamous Epith Cells 0 SEEN Urine Bacteria 0 SEEN Urine Mucus 0 SEEN Discharge Plan Triage Chief Complaint: Female C/O ED Provider: Clarissa Marina Dx/Rx/DC Orders Clinical Impression: Abdominal pain, Nausea & vomiting Instructions: ED Abdominal Pain Unkn Cause Fem Prescriptions: New haloperidol 1 mg tablet 1 mg PO Q8H PRN (Reason: nausea and vomiting) Qty: 20 0RF No Action pantoprazole 40 mg tablet,delayed release (DR/EC) 40 mg PO DAILY Qty: 30 1RF alprazolam 0.5 mg tablet 0.5 mg PO QHS PRN (Reason: sleep) Qty: 20 0RF haloperidol 1 mg tablet 1 mg PO QHS Qty: 20 0RF albuterol sulfate 90 mcg/actuation HFA aerosol inhaler 2 inh INHALATION PRN Qty: 8.5 0RF ibuprofen [IBU] 400 mg tablet 800 mg PO Q6H PRN (Reason: fever or pain) ondansetron 4 mg tablet,disintegrating 4 mg PO Q8H PRN PRN (Reason: Nausea) Qty: 10 0RF Primary Care Provider: Care Physician,No Primary Referrals: Stephanie Padron DO [Med Staff - Active Staff] - Friend,DO Rodrick [Med Staff - Active Staff] - Care Physician,No Primary [Primary Care Provider] - Activity Restrictions/Additional Instructions: Your lab work was stable and your white blood cell count had improved. I would recommend abstaining from THC in case this is contributing to your symptoms. Please continue to follow-up with EMPLOYEE'S REPRESENTATIVE. Begin a prescription for haloperidol to hopefully help with your nausea vomiting and pain. You may also continue to use the prescribed nausea medicine that you have. Print Language: Icelandic Disposition Disposition: Home, Self Care
[2024-08-24 12:11] LABS: AST(SGOT) 20 U/L (<=31); Alanine Aminotransfer ALT/SGPT 11 U/L (<=34); Albumin, Serum 4.3 g/dL (3.5-5.0); Alkaline Phosphatase 60 U/L (35-104); Anion Gap 12 (5-15); BUN 7 mg/dL (4-19); BUN/Creat Ratio 10.6 RATIO (10-20); Calcium,Total 9.0 mg/dL (7.6-11.0); Carbon Dioxide 21.1 mmol/L (21.0-32.0); Chloride 105 mmol/L (98-108); Estimated Creatinine Clearance 133.18 ml/min (50-250); Globulin 3.1 g/dL (2.2-4.2); Glucose 86 mg/dL (70-99); Lipase 47 U/L (13-75); Potassium 3.8 mmol/L (3.3-5.1)
[2024-08-24 12:19] LABS: Mucous, Urine 0 SEEN /hpf (<or=2+); Red Blood Cells-Urine 0 SEEN /hpf (0-5); Squamous Epithelial Cells - UA 0 SEEN /hpf (5-10)
[2024-08-24 12:23] LABS: Color, Urine Yellow (Yellow); Glucose, Dipstick Normal (Normal); Ketone-Dipstick 5 mg/dl (Negative); Leukocyte Esterase-Dipstick Negative /ul (Negative); Nitrite-Dipstick Negative (Negative); Occult Blood-Urine Negative /ul (Negative); Protein-Dipstick 15 mg/dl (Negative); Specific Gravity, Urine 1.015 (1.002-1.030); Urine Bilirubin Dipstick Negative (Negative)
[2024-08-24 13:01] VITALS: BP 132/89; PULSE 87; RESP 16; O2SAT 99
--- NOTE | 2024-08-24 13:12 | ED.RN ---
checked fluids. pt had arm bend. encouraged pt to keep arm straight to allow fluids to infuse.,
[2024-08-24 14:40] VITALS: BP 129/88; PULSE 72; RESP 16; TEMP 36.7; O2SAT 99
== END 2024-08-24 14:40 | disposition home or self-care (01) ==
PROVIDERS: Emergency Provider Emergency Medicine; Visit Provider Emergency Medicine
DX: R10.9 Unspecified abdominal pain (principal); R11.2 Nausea with vomiting, unspecified; F17.290 Nicotine dependence, other tobacco product, uncomplicated; F12.90 Cannabis use, unspecified, uncomplicated
CPT/HCPCS: 80053; 81001; 83690; 85025; 96361; 96374; 96375; 99283; A4216

== ENCOUNTER 2024-09-22 00:06 | Emergency (ER) | payer OTHER, MEDICAID, SELFPAY ==
[2024-09-22 00:08] VITALS: BP 126/79; PULSE 105; RESP 18; TEMP 36.6; O2SAT 97; BMI 29.2
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
--- OUTSIDE RECORDS SUMMARY | 2024-09-22 00:41 | XMS RPT_ITS | CCD ---
Author Organization [facility] Clini[facility] Care Team Providers Care Government Teacher Name Role Phone JOHN GALVEZ SHAW Unavailable Unavailable YANO, JOSE ALFREDO L Unavailable Unavailable DYLAN, KAMAL Unavailable Unavailable LENNYJOHN Unavailable Unavailable LENNY, JOHN SHAW Unavailable Unavailable YANO, JOSE ALFREDO L Unavailable Unavailable DYLAN, KAMAL Unavailable Unavailable [facility] Attending Unava ilable [facility] Primary Care Unava ilable [facility] Admitting Unava ilable Care Physician, No Primary Primary Care Provider Unavailable Dr. [place] Elmore Emergency Provider Dr. Earl Thornton Admit Provider Dr. Earl Thornton Attending Provider Dr. Earl Thornton Other Provider Dr. Earl Thornton Referring Provider Unavailable Primary Care Provider Unavailabl e Care Physician, No Primary Primary Care Provider Unavailable Dr. [place] Elmore Emergency Provider Dr. Earl Thornton Admit Provider Dr. Earl Thornton Attending Provider Dr. Earl Thornton Other Provider Dr. Earl Thornton Referring Provider [phone] PHYSICIAN, NONE Primary Care Physician Unavailab le Care Physician, No Primary Referring Provider Un available Care Physician, No Primary Primary Care Provider Unavailable Dr. Earl Thornton Attending Provider Dr. Earl Thornton Other Provider ROBB CARIAS, MARICRUZ Cash Attending Unavail able PHYSICIAN, NONE Primary Care Unavailable Care Physician, No Primary Primary Care Provider Unavailable Care Physician, No Primary Referring Provider Un available Dr. Earl Thornton Attending Provider Dr. Earl Thornton Other Provider Dr. Earl Thornton Primary Care Provider Dr. Earl Thornton Referring Provider Care Physician, No Primary Primary Care Provider Unavailable Care Physician, No Primary Referring Provider Un available Dr. Earl Thornton Attending Provider Unavailable Primary Care Provider Unavailabl e Dr. Earl Thornton Primary Care Provider Dr. Earl Thornton Attending Provider Dr. Earl Thornton Referring Provider Friend, Dr. Mensah Attending Provider Care Physician, No Primary Primary Care Provider Unavailable NONE, NONE Primary Care Unavailable LOFTON DO~[id number], LOFTON PATITO K Attending Unavailable LOFTON DO~[id number], KIRSTY PATITO K Admitting Unavailable JYOTI RODRIGES MD Consulting Unavailable JYOTI RODRIGES MD Consulting Unavailable NONE, NONE Consulting Unavailable DECLINED, DR Consulting Unavailable BERUMEN RN GYN, LUIS MANUEL Consulting Unavailab jigna BERUMEN APRN, LUIS MANUEL Consulting Unavailab Dr. Earl Patel Referring Provider Care Physician, No Primary Primary Care Provider Unavailable Care Physician, No Primary Referring Provider Un available Dr. Rodrick Kowalski Attending Provider [phone] SONY IRWIN Attending Unavailable CHRISTIAN MONDRAGON Admitting Unavailable Unavailable Primary Care Provider Unavailabl e Care Physician, No Primary Primary Care Provider Unavailable Care Physician, No Primary Referring Provider Un available Dr. Rodrick Kowalski Attending Provider [phone] PAYAL TAVERA Referring Unavailable No Family, Physician Primary Care Unavailable No Family, Physician Primary Care Unavailable Pcp RN GYN, No Primary Care Provider Unavailabl e PHYSICIAN, NONE Primary Care Unavailable BRISEYDA AVILA DO Attending Unavailable NO, PHYSICIAN Primary Care Unavailable MOE TEJEDA Attending Unava ilable Unavailable Primary Care Provider Unavailabl e Pcp RN GYN, No Primary Care Provider Unavailabl e Care Physician, No Primary Primary Care Provider Unavailable Lakia CARIAS, Dr. Cannon Emergency Provider Care Physician, No Primary Referring Provider Un available Marcos ROSADO-CDian Attending Provider IBRAHIM, ANSLEY Referring Unavailable PINEDA, TOSIN L Referring Unavailable CHRISTIAN, DONNA L Referring Unavailable HAJUANITO, SVETLANA Attending Unavailable IBRAHMI, ANSLEY Referring Unavailable CHRISTIAN, DONNA L Referring Unavailable CHRISTIAN, DONNA L Referring Unavailable CHRISTIAN, DONNA L Attending Unavailable CHANI HERNANDEZ Attending Unavailable HAJUANITO, SVETLANA Attending Unavailable HAJUANITO, SVETLANA Referring Unavailable PAUL EUBANKS Attending Unavailable WILFRID LAURA Referring Unavailable ANSLEY IBRAHIM Attending Unavailable Lakia CARIAS, Dr. Cannon Attending Provider Dex DO, Dr. Mensah Attending Provider Severiano DO, Dr. Gates Emergency Provider Laina DO, Dr. Romo Emergency Provider [phone] Dian Rodríguez Attending Unavailable Care Physician, No Primary Referring Unava ilable Care Physician, No Primary Primary Care Unava ilable Care Physician, No Primary Referring Unava ilable Care Physician, No Primary Primary Care Unava ilable Rodrick Kowalski Attending Unavailable Care Physician, No Primary Referring Unava ilable Dian Rodríguez Attending Unavailable Care Physician, No Primary Primary Care Unava ilable Care Physician, No Primary Referring Unava ilable Care Physician, No Primary Primary Care Unava ilable Dian Rodríguez Attending Unavailable Davis Dorman Attending Unavailable Care Physician, No Primary Primary Care Unava ilable Care Physician, No Primary Primary Care Unava ilable Kody العلي Attending [facility] Clarissa Ugarte Attending Unavailable Care Physician, No Primary Primary Care Unava ilable Care Physician, No Primary Primary Care Unava ilable Marcos Arizmendi Attending Unavailable Charito Berman Attending Unavailable Care Physician, No Primary Primary Care Unava ilable Care Physician, No Primary Primary Care Unava ilable London Elmore Attending Unavailable Allergies Allergy Classification Reported Allergen(s) Allergy Type Date of Onset Reaction(s) Facility (1 source) Environmental allergy; Translations: [ENVIRONMENTAL] Propensity to adverse reactions (disorder) [facility] ([facility] sources) Seasonal allergy; Translations: [SEASONAL ALLERGIES] Allergy to substance 8 Cough, Other: See Comments, Itching [facility] Work Phone: Medications Current Medications Medication Drug Class(es) Dates Sig (Normalized) Sig (Original) [id number] 200 actuat albuterol 0.09 mg/actuat metered dose [...] breath. 8 g 06/15/2023 11/18/2023 Discontinued Start: 01-18-2023 End: 05-15-2023 Albuterol Sulfate 90 mcg/act uation HFA aerosol inhaler Discontinued 1 NMA INHALATION NEEDED 8.5 0 May 01, 2023 11:22pm May 15, 2023 5:47am asthma Start: 01-18-2023 End: 05-15-2023 Albuterol Sulfate Discontinu ed 1 INH INHALATION NEEDED 8.5 May 01, 2023 11:22pm May 15, 2023 5:47am Start: 08-21-2022 End: 11-18-2023 take 2 puff(s) by inhalation every six hours as needed albuterol HFA (PROAIR HFA) 90 mcg/actuation inhaler Inhale 2 Puffs as instructed every 6 hours as needed. 18 g 08/21/2022 11/18/2023 Discontinued Start: 01-27-2022 take 1 puff(s) by in halation every six hours Albuterol Sulfate (Proair Hfa) 90 mcg/actuation Hfa Aerosol Inhaler Active 1 PUFF INHALATION EVERY 6 HOURS January 27, 2022 1:00am Start: 04-02-2019 End: 12-23-2022 take 2 puff(s) [...] in structed every 6 hours as needed. ALPRAZolam 0.5 mg oral tablet (8 sources) Benzodiazepine Start: 07-13-19 take 1 tablet by mouth at bedtime as needed for sleep Alprazolam 0.5 mg tablet Active 0.5 mg PO AT BEDTIME as needed for sleep July 12, 2024 12:00am Start: 08-26-2023 End: 12-23-2023 take 1 tablet by mouth at bedtime as needed for sleep Alprazolam 1 mg tablet Discontinued 1 mg PO AT BEDTIME as needed for sleep 30 August 26, 2023 12:00am December 23, 2023 6:54am amoxicillin 875 mg / clavulanate 125 mg oral tablet (1 source) Penicillin-class Antibacterial Start: 06-02-2023 End: 06-09-2023 take 1 tablet by mouth twice daily amoxicillin-clavulanate potassium (AUGMENTIN) 875-125 mg per tablet Take 1 tablet by mouth two times a day for 7 days. 14 tablet 0 06/02/2023 06/09/2023 Active azithromycin 250 mg oral tablet (1 source) Macrolide Antimicrobial Start: 11-18-2023 End: 11-23-2023 take 2 tablets by mouth once daily, then take 1 tablet by mouth once daily azithromycin (ZITHROMAX) 250 mg tablet Take 2 tablets by mouth once daily for 1 day, THEN 1 tablet once daily for 4 days. 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 Unwrap and insert as directed 14 Suppository 12/09/2023 Active cephalexin 500 mg oral capsule (18 sources) Cephalosporin Antibacterial Start: 12-06-2023 End: 12-13-2023 cephalexin 500 mg oral capsule Dose : 500 mg = 1 cap(s), Oral, QID, X 7 day(s), # 28 cap(s), 0 Refill(s), 12/13/23 12:00:00 PM EST, 88.6 Start Date: 12/06/23 Stop Date: 12/13/23 Status: Ordered Start: 09-13-2022 End: 11-06-2022 take 1 capsule by mouth every twelve hours Cephalexin 500 mg capsule Discontinued 500 mg PO EVERY 12 HOURS 10 0 September 13, 2022 12:00am November 06, 2022 9:57am Start: 08-23-2021 take 500 mg by mouth three times daily Cephalexin Active 500 MG PO THREE TIMES A DAY August 23, 2021 12:00am cetirizine hydrochloride 10 mg oral tablet (20 sources) Histamine-1 Receptor Antagonist Start: 06-15-2023 End: 05-04-2024 take 1 tablet by mouth once daily cetirizine (ZYRTEC) 10 mg tablet Take 1 tablet by mouth once daily. 30 tablet 06/15/2023 05/04/2024 Discontinued dicyclomine hydrochloride 10 mg oral capsule (3 sources) Anticholinergic Start: 12-06-2023 End: 12-13-2023 dicyclomine 10 mg oral capsule Dose : 10 mg = 1 cap(s), Oral, TID, # 21 cap(s), 0 Refill(s) Start Date: 12/06/23 Stop Date: 12/13/23 Status: Ordered Start: 12-25-2021 End: 01-01-2022 take 1 tablet by mouth four times daily Bentyl use dicyclomine Dose : 20 mg =, Oral, QID, # 30 tab(s), 0 Refill(s), Abdominal pain Ovarian cyst Start Date: 12/25/21 Stop Date: 01/01/22 Status: Ordered fluticasone propionate 0.05 mg/actuat metered dose nasal spray (20 sources) Corticosteroid Start: 06-15-2023 End: 05-04-2024 take 2 spray(s) by mouth once daily fluticasone (FLONASE) 50 mcg/actuation nasal spray Use 2 Sprays in each nostril once daily. Rinse mouth after use. 11.1 mL 06/15/2023 05/04/2024 Discontinued haloperidol 1 mg oral tablet (3 sources) Typical Antipsychotic Start: 07-12-2024 take 1 tablet by mouth every eight hours as needed for nausea and vomiting Haloperidol 1 mg tablet Active 1 mg PO Q8H as needed for nausea and vomiting August 24, 2024 12:00am ibuprofen 400 mg oral tablet (7 sources) Nonsteroidal Anti-inflammatory Drug Start: 06-17-2024 Ibuprofen (Ibu) 400 mg tablet Active 800 mg PO EVERY 6 HOURS as needed for fever or pain June 17, 2024 12:00am Start: 08-23-2021 take 600 mg by mouth every six hours Ibuprofen Active 600 MG PO EVERY 6 HOURS August 23, 2021 12:00am Inhalational Spacing Device (1 source) Start: 11-18-2023 End: 11-18-2023 Inhalational Spacing Device 1 Device one time only for 1 dose. 1 Each 11/18/2023 11/18/2023 Active Iron (20 sources) Start: 09-16-2021 take 1 tablet by mouth twice daily Iron Active 1 TABLET PO TWICE A DAY September 15, 2021 11:00pm Start: 09-16-2021 take 1 tablet by keyonna th twice daily Iron Active 1 TABLET PO TWICE A DAY September 16, 2021 12:00am Start: 08-11-2021 End: 09-02-2021 iron Discontinued 1 NMA SL/P O DAILY August 11, 2021 12:00am September 02, 2021 8:17am Check with primary doctor Start: 08-11-2021 End: 09-02-2021 iron Discontinued 1 NMA SL/P O DAILY August 11, 2021 12:00am September 02, 2021 8:17am Start: 08-11-2021 End: 09-02-2021 take 1 tablet by mouth once daily iron Discontinued 1 TAB SL/PO DAILY August 10, 2021 11:00pm September 02, 2021 7:17am Start: 08-11-2021 End: 09-02-2021 take 1 tablet by mouth once daily iron Discontinued 1 TAB SL/PO DAILY August 11, 2021 12:00am September 02, 2021 8:17am Start: 08-11-2021 take 1 tablet by keyonna th once daily iron Active 1 TAB SL/PO DAILY August 11, 2021 12:00am methylPREDNISolone (3 sources) Corticosteroid Start: 12-13-2023 End: 12-19-2023 methylPREDNISolone (MEDROL DOSE-PACK) 4 mg Dose-Pack Indications: Pharyngitis, unspecified etiology , Headache, unspecified headache type Take as instructed per package. 21 tablet 12/13/2023 12/19/2023 Active ondansetron 4 mg disintegrating oral tablet (20 sources) Serotonin-3 Receptor Antagonist Start: 08-23-2024 take 1 tablet by mouth every eight hours as needed for nausea Ondansetron 4 mg tablet,disintegrating Active 4 mg PO EVERY 8 HOURS NEEDED as needed for Nausea 10 0 August 23, 2024 12:00am Start: 12-04-2023 End: 12-23-2023 take 1 tablet by mouth every six hours as needed for nausea and vomiting Ondansetron 4 mg tablet,disintegrating Discontinued 4 mg PO EVERY 6 HOURS as needed for nausea and vomiting 10 0 December 04, 2023 12:00am December 23, 2023 6:54am Start: 08-19-2023 take 1 tablet by keyonna th every eight hours as needed for nausea ondansetron (ZOFRAN-ODT) 4 MG disintegrating tablet Take 1 tablet by mouth every 8 hours as needed for Nausea or Vomiting 30 tablet 0 08/19/2023 Active Start: 08-19-2023 End: 08-19-2023 ondansetron (ZOFRAN) injecti on 4 mg Start: 04-10-2023 End: 05-01-2023 take 1 tablet by mouth every six hours as needed for nausea and vomiting Ondansetron 4 mg tablet,disintegrating Discontinued 4 mg PO EVERY 6 HOURS as needed for nausea and vomiting 12 3 0 April 10, 2023 1:00am May 01, 2023 10:53pm Start: 02-26-2023 End: 05-01-2023 take 1 tablet by mouth every eight hours as needed for nausea Ondansetron 4 mg tablet,disintegrating Discontinued 4 mg PO EVERY 8 HOURS NEEDED as needed for Nausea 10 0 February 26, 2023 1:00am May 01, 2023 10:53pm Start: 11-06-2022 End: 12-08-2023 take 2 tablets by mouth every eight hours as needed for nausea Ondansetron 4 mg tablet,disintegrating Discontinued 8 mg PO EVERY 8 HOURS NEEDED as needed for Nausea 30 November 06, 2022 12:00am January 19, 2023 9:22am Start: 11-06-2022 End: 01-19-2023 take 8 mg by mouth every eight hours as needed Ondansetron Discontinued 8 MG PO EVERY 8 HOURS NEEDED November 06, 2022 12:00am January 19, 2023 9:22am Start: 08-01-2022 End: 12-20-2022 take 1 tablet by mouth every eight hours as needed for nausea Ondansetron 4 mg tablet,disintegrating Discontinued 4 mg PO EVERY 8 HOURS NEEDED as needed for Nausea 10 0 August 01, 2022 12:00am December 20, 2022 5:55pm Start: 06-14-2022 End: 06-22-2022 take 1 tablet by mouth every eight hours as needed for nausea and vomiting Ondansetron 8 mg tablet,disintegrating Discontinued 8 mg PO Q8H as needed for nausea and vomiting 10 0 June 14, 2022 12:00am June 22, 2022 7:47am Start: 02-13-2022 take 4 mg by mouth e very six hours Ondansetron Active 4 MG PO EVERY 6 HOURS May 05, 2022 12:00am Start: 12-24-2021 End: 02-26-2022 take 1 tablet by mouth every eight hours as needed for nausea and vomiting Ondansetron 4 mg tablet,disintegrating Discontinued 4 mg PO Q8H as needed for nausea and vomiting 14 0 February 09, 2022 10:13am February 26, 2022 2:36pm Start: 08-23-2021 take 4 mg by mouth e very six hours Ondansetron Active 4 MG PO EVERY 6 HOURS August 23, 2021 7:06am Start: 12-11-2020 take 4 mg by mouth e very eight hours as needed Ondansetron Active 4 MG PO EVERY 8 HOURS NEEDED December 11, 2020 4:14am End: 12-08-2023 ondansetron (ZOFRAN) 8 mg ta blet Take by mouth three times a day as needed. 12/08/2023 Discontinued Comment on above: TAKE 2 TABLETS BY MO UT EVERY 8 HOURS NEEDED FOR NAUSEA Take by mouth three times a day as needed. pantoprazole 40 mg delayed release oral tablet (20 sources) Proton Pump Inhibitor Start: take 1 tablet by mouth once daily Pantoprazole 40 mg tablet,delayed release (DR/EC) Active 40 mg PO DAILY 30 July 12, 2024 12:00am Start: 06-22-2023 End: 08-21-2023 take 1 tablet by mouth twice daily Pantoprazole 20 mg tablet,delayed release (DR/EC) Discontinued 20 mg PO TWICE A DAY 180 90 3 June 22, 2023 12:00am August 21, 2023 1:33am Start: 08-02-2022 End: 12-20-2022 take 1 tablet by mouth twice daily Pantoprazole 40 mg tablet,delayed release (DR/EC) Discontinued 40 mg PO TWICE A DAY 60 30 3 August 02, 2022 12:00am December 20, 2022 5:55pm Start: 04-21-2022 take 40 mg by mouth once daily Pantoprazole Active 40 MG PO DAILY April 21, 2022 12:00am predniSONE 10 mg oral tablet (4 sources) [...] tab daily for 3 days with food. (2 sources) Start: 06-15-2021 Activ e 2 gummy SL/PO DAILY June 15, 2021 12:10pm Completed/Discontinued Medications Medication Drug Class(es) Dates Sig (Normalized) Sig (Original) baclofen 5 mg oral tablet (20 sources) gamma-Aminobutyric Acid-ergic Agonist Start: 01-29-2022 End: 02-12-2022 take 1 tablet by mouth twice daily before mealtime Baclofen 5 mg tablet Discontinued 5 mg PO TWICE A DAY 08 03January 29, 2022 1:00am February 12, 2022 9:14am Bile-induced gastritis Other gastritis without bleeding Take 1 tab before meals benzonatate 100 mg oral capsule (19 sources) Non-narcotic Antitussive Start: 06-02-2023 End: 12-13-2023 take 100-200 mg by mouth every eight hours as needed benzonatate (TESSALON PERLES) 100 mg capsule Take 1-2 capsules by mouth three times a day as needed for cough. 30 capsule 11/18/2023 12/13/2023 Discontinued Start: 04-11-2019 End: 11-09-2021 take 2 capsules [...] oral solution (2 sources) alpha-Adrenergic Agonist, Uncompetitive H-ettscr-H-aspartate Receptor Antagonist, Sigma-1 Agonist Start: End: take 10 mL by mouth every six hours as needed Brompheniramine-Pseudo eph-DM (BROMFED DM) 2-30-10 mg/5 mL syrup Take 10 mL by mouth four times a day as needed. 200 mL 0 05/10/2023 06/02/2023 Discontinued (Course of therapy completed) Comment on above: Take 10 mL by mouth four times a day as needed. 1 ml diphenhydrAMINE hydrochloride 50 mg/ml cartridge (1 source) Histamine-1 Receptor Antagonist Start: End: diphenhydrAMINE (BENADRYL) injection 25 mg Ethinyl Estradiol / norgestimate (4 sources) Progestin, Estrogen Start: End: take 1 tablet by mouth once daily [...] 1 tablet by keyonna th once daily. ferrous sulfate 325 mg oral tablet (20 sources) Start: 09-02-2021 End: 05-04-2024 take 1 tablet by mouth every other day as needed Ferrous Sulfate (Iron) 325 mg (65 mg iron) tablet Discontinued 325 mg PO EVERY OTHER DAY as needed for anemia February 22, 2023 1:00am May 01, 2023 10:53pm Start: 09-02-2021 ferrous sulfat e 325 mg (65 mg iron) tablet Take by mouth. 0 09/02/2021 Active Comment on above: Take by mouth. iopamidol (ISOVUE-370) 76 % injection 75 mL (1 source) Start: 08-19-2023 End: 08-19-2023 iopamidol (ISOVUE-370) 76 % injection 75 mL 1 ml ketorolac tromethamine 30 mg/ml cartridge (1 source) Nonsteroidal Anti-inflammatory Drug, Cyclooxygenase Inhibitor Start: 08-19-2023 End: 08-19-2023 ketorolac (TORADOL) injection 30 mg 2 ml metoclopramide 5 mg/ml prefilled syringe (20 sources) Dopamine-2 Receptor Antagonist Start: 08-19-2023 End: 08-19-2023 metoclopramide (REGLAN) injection 10 mg Start: 06-22-2023 End: 08-21-2023 take 1 tablet by mouth three times daily 30 minutes before mealtime Metoclopramide Hcl 5 mg tablet Discontinued 5 mg PO THREE TIMES A DAY June 22, 2023 12:00am August 21, 2023 1:33am administer 30 minutes before meals Start: 09-13-2022 End: 11-06-2022 take 1 tablet by mouth four times daily as needed for headache Metoclopramide Hcl 10 mg tablet Discontinued 10 mg PO 4 TIMES DAILY as needed for Headache 20 September 13, 2022 12:00am November 06, 2022 9:58am Start: 08-02-2022 End: 09-01-2022 Metoclopramide Hcl (Reglan) 5 mg tablet Discontinued 5 mg PO 2 to 3 times per day as needed for nausea and vomiting 90 30 August 02, 2022 12:00am August 31, 2022 12:00am September 01, 2022 12:04am Start: 08-01-2022 End: 12-03-2022 take 1 tablet by mouth every eight hours as needed for nausea and vomiting Metoclopramide Hcl (Reglan) 10 mg tablet Discontinued 10 mg PO EVERY 8 HOURS NEEDED as needed for nausea and vomiting 14 August 01, 2022 5:34am December 03, 2022 11:32am Start: 02-17-2022 take 1 tablet by keyonna th every six hours Metoclopramide Hcl (Reglan) 10 mg tablet Active 10 MG PO EVERY 6 HOURS February 17, 2022 1:00am Start: 12-14-2020 take 10 mg by mouth every six hours Metoclopramide Hcl Active 10 MG PO EVERY 6 HOURS December 14, 2020 7:59am metroNIDAZOLE 500 mg oral tablet (6 sources) Nitroimidazole Antimicrobial Start: 12-09-2023 End: 12-16-2023 take 1 tablet by mouth twice daily metroNIDAZOLE (FLAGYL) 500 mg tablet Indications: Bacterial vaginosis Take 1 tablet by mouth two times a day for 7 days. 14 tablet 12/09/2023 12/13/2023 Discontinued omeprazole 20 mg delayed release oral capsule (20 sources) Proton Pump Inhibitor Start: 04-05-2022 End: 04-21-2022 take 1 capsule by mouth once daily Omeprazole 20 mg capsule,delayed release(DR/EC) Discontinued 20 mg PO DAILY 1 0 April 05, 2022 1:00am April 21, 2022 3:06pm Start: 12-24-2021 take 20 mg by mouth once daily Omeprazole Active 20 MG PO DAILY December 24, 2021 12:00am oxyCODONE hydrochloride 5 mg oral tablet (20 sources) Opioid Agonist Start: 09-16-2021 End: 09-23-2021 take 1 tablet by mouth every six hours as needed for pain Oxycodone 5 mg Tablet Discontinued 5 mg PO EVERY 6 HOURS NEEDED as needed for Pain Score 6-10 10 3 0 September 16, 2021 September 23, 2021 10:07am Status post cholecystectomy Acquired absence of other specified parts of digestive tract vit/iron fum/folic ac ( 1 + 1 ORAL) (20 sources) Start: 06-15-2021 End: 12-08-2023 vit/iron fum/folic ac ( 1 + 1 ORAL) Take by mouth. 06/15/2021 12/08/2023 Discontinued Start: 06-15-2021 vit/i rachel fum/folic ac ( [...] mg oral tablet (20 sources) Phenothiazine Start: 12-04-19 23 End: 12-08-19 24 take 1 tablet by mouth once daily prochlorperazine (COMPAZINE) 10 mg tablet Take 10 mg by mouth once daily. 12/03/2022 12/08/2023 Discontinued Start: 12-03-2022 End: 01-19-2023 take 1 tablet by mouth every eight hours as needed for nausea and vomiting Prochlorperazine Maleate 10 mg tablet Discontinued 10 mg PO Q8H as needed for nausea and vomiting 90 December 03, 2022 12:00am January 19, 2023 9:22am Comment on above: Take 10 mg by mouth once daily. promethazine hydrochloride 25 mg oral tablet (6 sources) Phenothiazine Start: 07-17-19 End: 08-21-19 take 1 tablet by mouth every six hours as needed for nausea Promethazine 25 mg tablet Discontinued 25 mg PO EVERY 6 HOURS NEEDED as needed for Nausea 10 July 17, 2023 12:00am August 21, 2023 1:33am 50 ml sodium chloride 9 mg/ml injection (1 source) Start: 08-19-19 End: 08-19-19 sodium chloride 0.9 % bolus 1,000 mL sucralfate 1000 mg oral tablet (20 sources) Aluminum Complex Start: 07-17-19 End: 08-21-19 take 1 tablet by mouth three times daily Sucralfate 1 gram tablet Discontinued 1 g PO THREE TIMES A DAY 21 July 17, 2023 12:00am August 21, 2023 1:33am Start: 12-24-2021 End: 02-17-2022 take 1 mL by mouth three times daily Sucralfate (Carafate) 100 mg/mL suspension Discontinued 10 mL PO THREE TIMES A DAY 840 28 December 24, 2021 1:00am February 17, 2022 3:30pm ursodiol 300 mg oral capsule (20 sources) Bile Acid Start: 02-12-2022 End: 04-05-2022 take 1 capsule by mouth twice daily Ursodiol 300 mg capsule Discontinued 300 mg PO TWICE A DAY 30 February 12, 2022 1:00am April 05, 2022 10:35am Bile-induced gastritis Other gastritis without bleeding Problems Active Problems Problem Classification Problem Date Documented Da te Episodic/Chronic Abdominal pain (20 sources) Abdominal pain; Translations: [Unspecified abdominal pain] Onset: 2 Episodic Comment on above: 21-year-old female u nder work-up for complaints of upper abdominal pain and associated nausea and vomiting. As above, I believe patient has now chronic gastric irritation from bile reflux. We will begin off label use of ursodiol to help try to manage symptoms and have placed referral to gastroenterology for second opinion. Acute posthemorrhagic anemia (20 sources) Anemia following acute postoperative blood loss; Translations: [Acute posthemorrhagic anemia] Episodic Anxiety disorders (12 sources) Anxiety; Translations: [Anxiety disorder, unspecified] 02-22-2023 Chronic Comment on above: NO MEDS Asthma (20 sources) Mild intermittent asthma; Translations: [Mild intermittent asthma, uncomplicated] Onset: 3 12-24-2022 Chronic Comment on above: PRN INHALER Attention-deficit, conduct, and disruptive behavior disorders (20 sources) Attention deficit hyperactivity disorder; Translations: [Attention-deficit hyperactivity disorder, unspecified type] Onset: 3 12-28-2022 Chronic Biliary tract disease (20 sources) Acute cholecystitis due to biliary calculus; Translations: [Calculus of gallbladder with acute cholecystitis without obstruction] Episodic Conditions associated with dizziness or vertigo (18 sources) Dizziness; Translations: [Dizziness and giddiness] 06-02-2022 Episodic Deficiency and other anemia (20 sources) Anemia; Translations: [Anemia, unspecified] 09-18-2021 Episodic Deficiency and other anemia (3 sources) Anemia, unspecified; Translations: [Anemia, unspecified] Episodic Deficiency and other anemia (20 sources) Chronic anemia; Translations: [Anemia, unspecified] 02-21-2022 Episodic Gastritis and duodenitis (20 sources) Bile-induced gastritis; Translations: [Other gastritis without bleeding] Episodic Comment on above: 21-year-old female s tatus post cholecystectomy who has had refractory upper abdominal pain and nausea and vomiting symptoms for the last couple of months. On diagnostic EGD 01/28/2022 I found signs of mild gastritis and significant bile accumulations within the stomach body. Biopsies were taken, but simply consistent with mild gastritis. Upon making this discovery, I placed patient on baclofen 5 mg twice daily for an off label use in the treatment of bile reflux gastritis. Unfortunately patient did not have a favorable response with this treatment so we pivoted to use of ursodiol plus Carafate plus Reglan.Patient initially had an excellent response to this regimen, but now reports return of her symptoms. She insists that this return of symptoms occurred before she ran out of her ursodiol medication, but admits that her discontinuation of ursodiol followed closely thereafter. She is also reporting more frequent use of NSAID pain medications. I have shared with her that the regular use of naproxen counteracts the effects of her Carafate and is likely exposing her stomach more to the bile acids. This is likely further the case given that she is no longer taking ursodiol. I have stressed to her the need to refrain from such regular use of NSAID medications and shared with her that the options for treatment of this condition medicinally are limited. I have suggested that we renew her prescription for ursodiol and also stressed to her that she needs to obtain a make up appointment with gastroenterology. This is particularly true since she now presents also with a concern for possible lactose intolerance. She expresses understanding of this information and commits to trying for evaluation with gastroenterology. In the meantime she wishes to have another appointment with me simply to follow-up the medication effectiveness. Headache; including migraine (1 source) Headache; Translations: [Headache, unspecified headache type] 12-13-2023 Episodic Immunizations and screening for infectious disease (2 sources) Patient encounter status; Translations: [Encounter for screening for infections with a predominantly sexual mode of transmission] Onset: 5 05-04-2024 Episodic Inflammatory diseases of female pelvic organs (1 source) Bacterial vaginosis; Translations: [Acute vaginitis] 12-09-2023 Episodic Mycoses (1 source) Candidiasis; Translations: [Candidiasis, unspecified] 12-09-2023 Episodic Nausea and vomiting (20 sources) Nausea and vomiting; Translations: [Nausea with vomiting, unspecified] Onset: 3 Resolved: 3 Episodic Comment on above: DAILY BILE VOMITING DAILY nausea, reduce d vomiting Other complications of (1 source) Maternal obesity complicating , childbirth and the puerperium, antepartum; Translations: [Obesity complicating , third trimester] 12-28-2022 Chronic Other complications of (20 sources) Hyperemesis gravidarum; Translations: [Mild hyperemesis gravidarum] Onset: 3 Resolved: 3 12-22-2020 Episodic Other complications of (20 sources) Hyperemesis gravidarum with metabolic disturbance; Translations: [Hyperemesis gravidarum with metabolic disturbance] 12-19-2020 Episodic Other complications of (20 sources) growth restriction; Translations: [Maternal care for other known or suspected poor growth, unspecified trimester, not applicable or unspecified] Onset: 3 Resolved: 3 06-25-2021 Episodic Other complications of (6 sources) Maternal care for other known or suspected poor growth, unspecified trimester, not applicable or unspecified; Translations: [Poor growth, affecting management of mother, antepartum condition or complication] Episodic Other complications of (3 sources) Spotting complicating , first trimester; Translations: [SPOTTING COMP FIRST TRI] Onset: 3 Episodic Other complications of (16 sources) Urinary tract infection in ; Translations: [Unspecified infection of urinary tract in , unspecified trimester] 09-13-2022 Episodic Other complications of (16 sources) Reduced movement; Translations: [Decreased movements, unspecified trimester, not applicable or unspecified] 09-13-2022 Episodic Other complications of (20 sources) RhD negative; Translations: [Other specified related conditions, unspecified trimester] Onset: 3 11-22-2022 Episodic Other complications of (20 sources) High risk ; Translations: [Supervision of with grand multiparity, third trimester] 12-20-2022 Episodic Other complications of (3 sources) Supervision of with grand multiparity, third trimester; Translations: [Supervision of other high-risk ] 12-20-2022 Episodic Other complications of (12 sources) Depressive disorder in mother complicating ; Translations: [Other mental disorders complicating , unspecified trimester] 01-27-2023 Episodic Other complications of (6 sources) Retained products of conception 09-10-2021 Episodic Other connective tissue disease (2 sources) Pain in right hand; Translations: [Pain in right hand] Episodic Other disorders of stomach and duodenum (20 sources) Gastroparesis syndrome; Translations: [Gastroparesis] Onset: 3 11-06-2022 Episodic Other disorders of stomach and duodenum (17 sources) Cyclical vomiting syndrome; Translations: [Cyclical vomiting syndrome unrelated to migraine] 04-10-2023 Episodic Other ear and sense organ disorders (1 source) Otalgia; Translations: [Otalgia, unspecified ear] Episodic Other ear and sense organ disorders (20 sources) Pain of ear structure; Translations: [Otalgia, unspecified ear] 10-22-2021 Episodic Other endocrine disorders (20 sources) Polycystic ovary syndrome; Translations: [Polycystic ovarian syndrome] Onset: 4 08-24-2023 Chronic Other female genital disorders (20 sources) Vaginal bleeding; Translations: [Abnormal uterine and vaginal bleeding, unspecified] Onset: 3 09-10-2021 Chronic Other female genital disorders (10 sources) Abnormal uterine and vaginal bleeding, unspecified; Translations: [Other specified noninflammatory disorders of vagina] Onset: 3 Chronic Other female genital disorders (1 source) Other noninflammatory disorders of ovary, fallopian tube and broad ligament; Translations: [Other noninflammatory disorders of ovary, fallopian tube and broad ligament] Onset: 4 Episodic Other female genital disorders (1 source) Enlarged uterus; Translations: [Hypertrophy of uterus] 08-24-2023 Episodic Other gastrointestinal disorders (12 sources) Irritable bowel syndrome; Translations: [Irritable bowel syndrome without diarrhea] 01-27-2023 Chronic Other gastrointestinal disorders (20 sources) Constipation; Translations: [Constipation, unspecified] 12-29-2021 Episodic Other gastrointestinal disorders (11 sources) Constipation, unspecified; Translations: [Constipation, unspecified] Episodic Other injuries and conditions due to external causes (2 sources) Thumb injury ; Translations: [Unspecified injury of right wrist, hand and finger(s), initial encounter] 07-21-2023 Episodic Other liver diseases (1 source) Hepatomegaly, not elsewhere classified; Translations: [Hepatomegaly, not elsewhere classified] Onset: 4 Episodic Other lower respiratory disease (1 source) H/O: asthma; Translations: [Personal history of other diseases of the respiratory system] Episodic Other lower respiratory disease (1 source) Cough; Translations: [Acute cough] 11-18-2023 Episodic Other nutritional; endocrine; and metabolic disorders (20 sources) Ketosis; Translations: [Other specified metabolic disorders] 12-19-2020 Chronic Other nutritional; endocrine; and metabolic disorders (1 source) Body mass index (BMI) 60.0-69.9, adult; Translations: [BODY MASS INDEX BMI 60.0-69.9 ADULT] Onset: 3 Chronic Other and delivery including normal (20 sources) Early stage of ; Translations: [Encounter for supervision of normal , unspecified, unspecified trimester] Onset: 3 Resolved: 4 Episodic Comment on above: Medically indicated for FGR Other screening for suspected conditions (not mental disorders or infectious disease) (1 source) Ultrasonography of abdomen abnormal; Translations: [Abnormal findings on diagnostic imaging of other abdominal regions, including retroperitoneum] 08-26-2023 Episodic Other upper respiratory infections (1 source) Chronic sinusitis; Translations: [Chronic sinusitis, unspecified] 06-02-2023 Chronic Other upper respiratory infections (6 sources) Viral upper respiratory tract infection; Translations: [Acute upper respiratory infection, unspecified] Episodic Otitis media and related conditions (1 source) Dysfunction of bilateral eustachian tubes; Translations: [Unspecified Eustachian tube disorder, bilateral] 06-15-2023 Episodic Ovarian cyst (8 sources) Cyst of ovary; Translations: [Unspecified ovarian cyst, unspecified side] Onset: Episodic Polyhydramnios and other problems of amniotic cavity (1 source) Amniotic fluid leaking; Translations: [Premature rupture of membranes, unspecified as to length of time between rupture and onset of labor, unspecified weeks of gestation] 12-20-2022 Episodic Residual codes; unclassified (1 source) Gestation period, 40 weeks; Translations: [40 weeks gestation of ] Episodic Residual codes; unclassified (1 source) 40 weeks gestation of ; Translations: [ state, incidental] Episodic Residual codes; unclassified (7 sources) Acquired absence of other specified parts of digestive tract; Translations: [Other acquired absence of organ] Episodic Residual codes; unclassified (1 source) Procedure not done; Translations: [Procedure and treatment not carried out, unspecified reason] Episodic Residual codes; unclassified (1 source) Gestation period, 16 weeks; Translations: [16 weeks gestation of ] 08-19-2022 Episodic Residual codes; unclassified (1 source) 11 weeks gestation of ; Translations: [11 WEEKS GESTATION OF ] Onset: Episodic Residual codes; unclassified (1 source) Gestation period, 29 weeks; Translations: [29 weeks gestation of ] 11-22-2022 Episodic Residual codes; unclassified (1 source) Gestation period, 31 weeks; Translations: [31 weeks gestation of ] 12-06-2022 Episodic Residual codes; unclassified (14 sources) Gestation period, 33 weeks; Translations: [33 weeks gestation of ] 12-20-2022 Episodic Residual codes; unclassified (20 sources) Gestation period, 34 weeks; Translations: [34 weeks gestation of ] Onset: 3 Resolved: 12-23-2022 Episodic Residual codes; unclassified (3 sources) 33 weeks gestation of ; Translations: [ state, incidental] 12-20-2022 Episodic Residual codes; unclassified (3 sources) 34 weeks gestation of ; Translations: [ state, incidental] 12-23-2022 Episodic Residual codes; unclassified (1 source) Gestation period, 35 weeks; Translations: [35 weeks gestation of ] 12-31-2022 Episodic Residual codes; unclassified (4 sources) Gestation period, 36 weeks; Translations: [36 weeks gestation of ] 01-05-2023 Episodic Residual codes; unclassified (2 sources) Gestation period, 37 weeks; Translations: [37 weeks gestation of ] 01-13-2023 Episodic Residual codes; unclassified (12 sources) Current drinker; Translations: [Other specified health status] 02-26-2023 Episodic Spondylosis; intervertebral disc disorders; other back problems (20 sources) Backache; Translations: [Dorsalgia, unspecified] 08-31-2021 Episodic Substance-related disorders (20 sources) 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; Translations: [Cannabis abuse with other cannabis-induced disorder] Onset: 3 08-01-2022 Chronic Substance-related disorders (20 sources) Drug use complicating , first trimester; Translations: [Marijuana user] Onset: 3 01-27-2023 Episodic Comment on above: DAILY Unclassified (1 source) Acute cough; Translations: [Acute cough] Onset: 5 Urinary tract infections (20 sources) Urinary tract infectious disease; Translations: [Urinary tract infection, site not specified] Onset: 4 08-31-2021 Episodic Viral infection (1 source) Viral disease; Translations: [Viral infection, unspecified] 08-21-2022 Episodic Past or Other Problems Problem Classification Problem Date Documented Date Episodic/Chronic Genitourinary symptoms and ill-defined conditions (2 sources) Scalding pain on urination ; Translations: [Dysuria] Onset: 12-25-2023 08-19-2022 Episodic Hemorrhage during ; abruptio placenta; placenta previa (20 sources) Third trimester bleeding; Translations: [Antepartum hemorrhage, unspecified, third trimester] Onset: 12-24-2022 Resolved: 02-23-2023 12-24-2022 Episodic Other and unspecified benign neoplasm (4 sources) Benign neoplasm, unspecified site; Translations: [Benign neoplasm of unspecified site] Onset: 08-25-2023 08-24-2023 Episodic Other and unspecified benign neoplasm (20 sources) Mature cystic teratoma of right ovary; Translations: [Benign neoplasm of right ovary] Onset: 08-25-2023 08-26-2023 Episodic Other complications of (20 sources) Poor growth affecting management; Translations: [Maternal care for other known or suspected poor growth, third trimester, not applicable or unspecified] Onset: 06-10-2021 Resolved: 02-23-2023 12-24-2022 Episodic Other complications of (20 sources) Depressive disorder; Translations: [Other mental disorders complicating , third trimester] Onset: 12-24-2022 Resolved: 12-26-2022 12-24-2022 Episodic Other female genital disorders (1 source) Mass of right ovary; Translations: [Other noninflammatory disorders of ovary, fallopian tube and broad ligament] 08-19-2023 Episodic Other female genital disorders (1 source) Hypertrophy of uterus; Translations: [Enlarged uterus] Onset: 08-25-2023 Episodic Other injuries and conditions due to external causes (1 source) Unspecified injury of right wrist, hand and finger(s), initial encounter; Translations: [Injury of right thumb, initial encounter] Onset: 07-21-2023 Episodic Other liver diseases (1 source) Liver mass; Translations: [Hepatomegaly, not elsewhere classified] 08-19-2023 Episodic Residual codes; unclassified (20 sources) Nicotine-filled electronic cigarette user; Translations: [Tobacco use] Onset: 11-15-2022 11-15-2022 Episodic Screening and history of mental health and substance abuse codes (20 sources) H/O: depression; Translations: [Personal history of other mental and behavioral disorders] Onset: 11-15-2022 11-15-2022 Episodic Unclassified (20 sources) Retained products of conception; Translations: [Retained products of conception] NEGATED: Highlighted row has been ruled out!Unclassified (3 sources) No known active problems 12-09-2021 Results Test Name Value Interpretation Reference Range Facility Absolute lymphocyte countOrd ered By: Clarissa Marina on 08-24-2024 Lymphocytes Auto (Unsp spec) [#/Vol] 2.04 10*3/uL 0.83-4.51 [facility] Absolute neutrophil countOrd ered By: Clarissa Marina on 08-24-2024 Neutrophils (Bld) [#/Vol] 8.8 10*3/uL High 2.0-7.7 [facility] Anion gap in Serum or Plasma Ordered By: Clarissa Marina on 08-24-2024 Anion gap [Moles/Vol] 12 mmol/L 5-15 [facility] Automated lymphocyte count a s percentage of total leukocytesOrdered By: Clarissa Marina on 08-24-2024 Lymphocytes/100 WBC Auto (Unsp spec) 17.4 % Low 19-41 [facility] BUN/creatinine ratioOrdered By: Clarissa Marina on 08-24-2024 Urea nitrogen/Creatinine [Mass ratio] 10.6 mg/mg 10-20 [facility] Basophil percentageOrdered B y: Clarissa Marina on 08-24-2024 Basophils/100 WBC (Bld) 0.6 % 0-1 [facility] Bilirubin Test strip Ql (U)O rdered By: Clarissa Marina on 08-24-2024 Bilirubin Ql (U) Negative Negative [facility] Bilirubin, totalOrdered By: Clarissa Marina on 08-24-2024 Bilirubin [Mass/Vol] 0.65 mg/dL 0.00-1.30 [facility] [place] CBC W/Diff, Automatedon 08-07 Absolute Lymph 2.04 X10 3/uL Normal 0.83-4.51 [facility] Comment on above: Performed By: #### L 100.0100, L500.4050, [id number] #### [facility] [address] [place], [address] Absolute Neut 8.8 X10 3/uL High 2.0-7.7 [facility] Comment on above: Performed By: #### L 100.0100, L500.4050, [id number] #### [facility] [address] [place], [address] Basophils/100 WBC (Bld) 0.6 % Normal 0-1 [facility] Comment on above: Performed By: #### L 100.0100, L500.4050, [id number] #### [facility] [address] [place], [address] Eosinophils/100 WBC (Bld) 1.3 % Normal 0-5 [facility] Comment on above: Performed By: #### L 100.0100, L500.4050, [id number] #### [facility] [address] [place], [address] Erythrocyte distribution width (RBC) [Ratio] 12.9 % Normal 11.6-14.6 [facility] Comment on above: Performed By: #### L 100.0100, L500.4050, [id number] #### [facility] [address] [place], [address] Hematocrit (Bld) [Volume fraction] 37.9 % Normal 37-47 [facility] Comment on above: Performed By: #### L 100.0100, L500.4050, [id number] #### [facility] [address] [place], [address] Hemoglobin (Bld) [Mass/Vol] 13.3 g/dL Normal 12.0-15.0 [facility] Comment on above: Performed By: #### L 100.0100, L500.4050, [id number] #### [facility] [address] [place], [address] IG% 0.300 Normal 0.0-0.9 [facility] Comment on above: Result Comment: IG% - Immature Granulocytes (promyelocytes, myelocytes and metamyelocytes) > 1% indicates that a LEFT SHIFT is Present. Performed By: #### L 100.0100, L500.4050, [id number] #### [facility] [address] [place], [address] Lymphocytes/100 WBC (Bld) 17.4 % Low 19-41 [facility] Comment on above: Performed By: #### L 100.0100, [id number], [id number] #### [facility] [address] [place], [address] MCH (RBC) [Entitic mass] 30.2 pg Normal 27.0-32.0 [facility] Comment on above: Performed By: #### L 100.0100, [id number], [id number] #### [facility] [address] [place], [address] MCHC (RBC) [Mass/Vol] 35.1 g/dL Normal 32-36 [facility] Comment on above: Performed By: #### L 100.0100, [id number], [id number] #### [facility] [address] [place], [address] MCV (RBC) [Entitic vol] 86.1 fL Normal 81-99 [facility] Comment on above: Performed By: #### L 100.0100, [id number], [id number] #### [facility] [address] [place], [address] Monocytes/100 WBC (Bld) 5.4 % Normal 0-10 [facility] Comment on above: Performed By: #### L 100.0100, [id number], [id number] #### [facility] [address] [place], [address] Neutrophils/100 WBC (Bld) 75.0 % High 47-70 [facility] Comment on above: Performed By: #### L 100.0100, [id number], [id number] #### [facility] [address] [place], [address] Nucleated RBC (Bld) [#/Vol] 0 10*3/uL Normal 0-5 [facility] Comment on above: Performed By: #### L 100.0100, [id number], [id number] #### [facility] [address] [place], [address] Platelet mean volume (Bld) [Entitic vol] 10.0 fL Normal 6.2-12.0 [facility] Comment on above: Performed By: #### L 100.0100, L500.4050, [id number] #### [facility] [address] [place], [address] Platelets (Bld) [#/Vol] 283 10*3/uL Normal 150-450 [facility] Comment on above: Performed By: #### L 100.0100, [id number], [id number] #### [facility] [address] [place], [address] RBC (Bld) [#/Vol] 4.40 10*6/uL Normal 4.2-5.4 [facility] Comment on above: Performed By: #### L 100.0100, [id number], [id number] #### [facility] [address] [place], [address] RDW SD 40.3 fl Normal 35.1-43.9 [facility] Comment on above: Performed By: #### L 100.0100, [id number], [id number] #### [facility] [address] [place], [address] WBC (Bld) [#/Vol] 11.7 10*3/uL High 4.4-11.0 [facility] Comment on above: Performed By: #### L 100.0100, [id number], [id number] #### [facility] [address] [place], [address] Carbon dioxide, total [Moles /volume] in Central venous bloodOrdered By: Clarissa Marina on 08-24-2024 CO2 [Moles/Vol] 21.1 mmol/L 21.0-32.0 [facility] Chloride assayOrdered By: Osmar Marina on 08-24-2024 Chloride [Moles/Vol] 105 mmol/L 98-108 [facility] Comprehensive Metabolic Prof ilon 08-24-2024 Albumin [Mass/Vol] 4.3 g/dL Normal 3.5-5.0 [facility] Comment on above: Performed By: #### L 100.0100, L500.4050, [id number] ####[facility] [address] [place], [address] Albumin/Globulin [Mass ratio] 1.4 {ratio} Normal 0.9-2.4 [facility] Comment on above: Performed By: #### L 100.0100, L500.4050, [id number] ####[facility] [address] [place], [address] ALK PHOS 60 U/L Normal 35-104 [facility] Comment on above: Performed By: #### L 100.0100, [id number], [id number] ####[facility] [address] [place], [address] ALT [Catalytic activity/Vol] 11 U/L Normal <=34 [facility] Comment on above: Performed By: #### L 100.0100, [id number], [id number] ####[facility] [address] [place], [address] AST [Catalytic activity/Vol] 20 U/L Normal <=31 [facility] Comment on above: Performed By: #### L 100.0100, [id number], [id number] ####[facility] [address] [place], [address] Bilirubin [Mass/Vol] 0.65 mg/dL Normal 0.00-1.30 [facility] Comment on above: Performed By: #### L 100.0100, L500.4050, [id number] ####[facility] [address] [place], [address] BUN/CRE 10.6 RATIO Normal 10-20 [facility] Comment on above: Performed By: #### L 100.0100, [id number], [id number] ####[facility] [address] [place], [address] Calcium [Mass/Vol] 9.0 mg/dL Normal 7.6-11.0 [facility] Comment on above: Performed By: #### L 100.0100, [id number], [id number] ####[facility] [address] [place], [address] Chloride [Moles/Vol] 105 mmol/L Normal 98-108 [facility] Comment on above: Performed By: #### L 100.0100, [id number], [id number] ####[facility] [address] [place], [address] CO2 [Moles/Vol] 21.1 mmol/L Normal 21.0-32.0 [facility] Comment on above: Performed By: #### L 100.0100, L500.4050, [id number] ####[facility] [address] [place], [address] Creatinine [Mass/Vol] 0.67 mg/dL Low 0.70-1.20 [facility] Comment on above: Performed By: #### L 100.0100, L500.4050, [id number] ####[facility] [address] [place], [place], [address] ECRCL 133.18 ml/min Normal 50-250 [facility] Comment on above: Performed By: #### L 100.0100, L500.4050, L501.2450 ####[facility] [address] [place], [address] GAP 12 Normal 5-15 [facility] Comment on above: Performed By: #### L 100.0100, L500.4050, L501.2450 ####[facility] [address] [place], [address] GFR/1.73 sq M.predicted among non-blacks MDRD (S/P/Bld) [Vol rate/Area] 126 mL/min/{1.73_m2} Normal >60 [facility] Comment on above: Result Comment: mL/m in/1.73m2 CKD-EPI Creatinine Equation (2020) Performed By: #### L 100.0100, L500.4050, L501.2450 ####[facility] [address] [place], [address] Globulin (S) [Mass/Vol] 3.1 g/dL Normal 2.2-4.2 [facility] Comment on above: Performed By: #### L 100.0100, L500.4050, L501.2450 ####[facility] [address] [place], [address] Glucose [Mass/Vol] 86 mg/dL Normal 70-99 [facility] Comment on above: Performed By: #### L 100.0100, L500.4050, L501.2450 ####[facility] [address] [place], [address] Potassium [Moles/Vol] 3.8 mmol/L Normal 3.3-5.1 [facility] Comment on above: Performed By: #### L 100.0100, L500.4050, L501.2450 ####[facility] [address] [place], [address] Sodium [Moles/Vol] 139 mmol/L Normal 133-145 [facility] Comment on above: Performed By: #### L 100.0100, L500.4050, L501.2450 ####[facility] [address] [place], [address] T PROT 7.4 g/dL Normal 5.9-8.4 [facility] Comment on above: Performed By: #### L 100.0100, L500.4050, L501.2450 ####[facility] [address] [place], [address] Urea nitrogen [Mass/Vol] 7 mg/dL Normal 4-19 [facility] Comment on above: Performed By: #### L 100.0100, L500.4050, L501.2450 ####[facility] [address] [place], [address] Emergency Department Summary on 08-24-2024 Emergency Department Summary [facility] Medical Records Department [address] [place] [address] Emergency Department Summary 08/24/24 MR#: [id number] Acct: [id number] Name: CHANA DE LA O Rep #: [id number] : 2000 23 From: Clarissa Marina DO PCP: Care Physician,No Primary Status:REG ER Location: ED HPI HPI - Female History of Present Illness Chief Complaint: Female C/O Informant: patient Narrative Narrative: Patient is 20-year-old female with history of gastroparesis, IBS, daily marijuana use and chronic abdominal pain presenting with recurrent/worsening abdominal pain, nausea and vomiting. Patient was seen in the ER last night for similar symptoms. At that time she received medication including IV fluids, Zofran and morphine. She states morphine wore off by the time she left and she has continued pain. Her normal coping mechanisms which include heating pads, hip swaying and back massage have not been helping which is what brought her back to the emergency room. Patient states her bowel movements have been regular. She denies any urinary symptoms. She notes that this feels like her prior episodes of her abdominal pain but is more severe than normal. She is due for her menstrual cycle any day now. There seems to be a correlation with her menstrual cycles. She follows with [facility] but was given referrals as per patient they have refused to do a diagnostic laparoscopy to diagnose endometriosis. Denies any fever or chills. Does note a red rash in the back of her throat but denies any sore throat or other infectious symptoms. No other complaints or concerns at this time. Note that she has put her finger in her mouth to try to get her self to vomit to help with her symptoms. Notes that she has also seen GI in the past for her symptoms. [facility] Medical History Nausea vomiting IBS (irritable bowel syndrome) Ovarian cyst Marijuana use Wears glasses Gastric reflux Shortness of breath on exertion History of IBS Vapes nicotine containing substance Gastroparesis Vaginal delivery ADHD IBS (irritable bowel syndrome) Encounter for induction of labor Rh negative state in antepartum period Depression affecting IUGR (intrauterine growth restriction) Low iron Marijuana use Syncope Upper abdominal pain Anemia Depression Anxiety Asthma Home Medications ???Medication ???Instructions ???Recorded ???Last Taken ???Type albuterol sulfate 90 mcg/actuation 2 inh inhalation PRN asthma #8. 5 05/15/23 06/17/24 Rx aerosol inhaler grams ibuprofen 400 mg tablet (IBU) 800 mg PO Q6H PRN fever or pain 06/17/24 History alprazolam 0.5 mg tablet 0.5 mg PO QHS PRN sleep #20 tabs 0 07/12/24 Unknown Rx haloperidol 1 mg tablet 1 mg PO QHS #20 tabs 07/12/24 Unkn own Rx pantoprazole 40 mg tablet,delayed 40 mg PO DAILY #30 tabs 07/12/24 Unknown Rx release ondansetron 4 mg disintegrating 4 mg PO Q8H PRN PRN Nausea #10 tab s 08/23/24 Unknown Rx tablet haloperidol 1 mg tablet 1 mg PO Q8H PRN nausea and 5 Unknown Rx vomiting #20 tabs Allergy/AdvReac Type Severity Reaction Status Date / Time No Known Allergies Allergy Verified 08/24/24 10:51 Family History Father Diabetes Mother Depression Grandmother Breast cancer Surgical History Tubal ligation status History of esophagogastroduodenos copy (EGD) History of cholecystectomy ( 09/2021) H/O dilation and curettage History of adenoidectomy Hx of tonsillectomy Social History household members: significant other Smoking Status: Current some day smoker tobacco type: e-cigarettes alcohol intake: never substance use type: marijuana ROS ROS ED Constitutional Constitutional ED: Denies chills or fever(s) ENT ENT ED: Denies rhinorrhea or sore throat Cardiovascular Cardiovascular: Denies chest pain or palpitations Respiratory/Chest Respiratory/Chest: Denies cough or dyspnea Gastrointestinal Gastrointestinal: Reports abdominal pain, nausea and vomiting; Denies constipation, diarrhea or melena Genitourinary Genitourinary ED: Denies dysuria or hematuria Musculoskeletal Musculoskeletal: Denies arthralgias or neck pain Integumentary Denies rash Neurologic Neurologic: Denies weakness Psychiatric Psychiatric: Reports anxiety EXAM Physical Exam Const Vital Signs: 08/24/24 10:51 08/24/24 13:01 Temperature 98 F Temperature Source Temporal Pulse Rate 84 87 Respiratory Rate 22 H 16 Blood Pressure 132/109 H 132/89 H Blood Pressure Mean 116 103 Pulse Ox 100 99 Oxygen Delivery Method Room (more content not included)... Normal [facility] Eosinophil percentageOrdered By: Clarissa Marina on 08-24-2024 Eosinophils/100 WBC (Bld) 1.3 % 0-5 [facility] Erythrocyte distribution wid th ratioOrdered By: Clarissa Marina on 08-24-2024 Erythrocyte distribution width (RBC) [Ratio] 12.9 % 11.6-14.6 [facility] Erythrocyte distribution wid th standard deviationOrdered By: Clarissa Marina on 08-24-2024 Erythrocyte distribution width (RBC) [Ratio] 40.3 fl 35.1-43.9 [facility] Glomerular filtration rate ( GFR) estimation/1.73 sq m using serum, plasma, or whole bOrdered By: Clarissa Marina on 08-24-2024 GFR/1.73 sq M.predicted among non-blacks MDRD (S/P/Bld) [Vol rate/Area] 126 mL/min/{1.73_m2} >60 [facility] Comment on above: mL/min/1.73m2 CKD-EP I Creatinine Equation (2020) Hematocrit Auto (Bld) [Volum e fraction]Ordered By: Clarissa Marina on 08-24-2024 Hematocrit (Bld) [Volume fraction] 37.9 % 37-47 [facility] Hemoglobin measurementOrdere d By: Clarissa Marina on 08-24-2024 Hemoglobin (Bld) [Mass/Vol] 13.3 g/dL 12.0-15.0 [facility] Immature granulocytes/100 WB C Auto (Bld)Ordered By: Clarissa Marina on 08-24-2024 Immature granulocytes/100 WBC (Bld) 0.300 % 0.0-0.9 [facility] Comment on above: IG% - Immature Granu locytes (promyelocytes, myelocytes and metamyelocytes) > 1% indicates that a LEFT SHIFT is Present. Ketones Test strip Ql (U)Ord ered By: Clarissa Marina on 08-24-2024 Ketones Ql (U) 5 mg/dl High Negative [facility] Laboratory - Chemistry and C hemistry - challengeOrdered By: Clarissa Marina on 08-24-2024 AST [Catalytic activity/Vol] 20 U/L <32 [facility] Lipaseon 08-24-2024 Lipase [Catalytic activity/Vol] 47 U/L Normal 13-75 [facility] Comment on above: Result Comment: Everardo pena note: LIPASE revised reference range effective 22. New Lipase methodology. Expected to produce lower values than the previous assay method. NEW Reference Range: 13 - 75 U/L Performed By: #### L 100.0100, L500.4050, L501.2450 ####[facility] [address] [place], [address] Lipase measurementOrdered By : Clarissa Marina on 08-24-2024 Lipase [Catalytic activity/Vol] 47 U/L 13-75 [facility] Comment on above: Please note:LIPASE r evised reference range effective 22. New Lipase methodology. Expected to produce lower values than the previous assay method. NEW Reference Range: 13 - 75 U/L MCV (mean corpuscular volume ) determinationOrdered By: Clarissa Marina on 08-24-2024 MCV (RBC) [Entitic vol] 86.1 fL 81-99 [facility] Mean corpuscular hemoglobin (MCH) determinationOrdered By: Clarissa Marina on 08-24-2024 MCH (RBC) [Entitic mass] 30.2 pg 27.0-32.0 [facility] Mean corpuscular hemoglobin concentration (MCHC) determinationOrdered By: Clarissa Marina on 08-24-2024 MCHC (RBC) [Mass/Vol] 35.1 g/dL 32-36 [facility] Mean platelet volume determi nationOrdered By: Clarissa Marina on 08-24-2024 Platelet mean volume (Bld) [Entitic vol] 10.0 fL 6.2-12.0 [facility] Microscopic analysis of urin e for red blood cells (RBC)Ordered By: Clarissa Marina on 08-24-2024 Microscopic analysis of urine for red blood cells (RBC) 0 SEEN /hpf 0-5 [facility] Monocyte percentageOrdered B y: Clarissa Marina on 08-24-2024 Monocytes/100 WBC (Bld) 5.4 % 0-10 [facility] Mucus LM Ql (Urine sed)Order ed By: Clarissa Marina on 08-24-2024 Mucus Ql (Urine sed) 0 SEEN /hpf [facility] Neutrophil percentageOrdered By: Clarissa Marina on 08-24-2024 Neutrophils/100 WBC (Bld) 75.0 % High 47-70 [facility] Nitrite Test strip Ql (U)Ord ered By: Clarissa Marina on 08-24-2024 Nitrite Ql (U) Negative Negative [facility] Nucleated red blood cell per centageOrdered By: Clarissa Marina on 08-24-2024 Nucleated RBC/100 WBC (Bld) [Ratio] 0 % 0-5 [facility] Platelet countOrdered By: Osmar Marina on 08-24-2024 Platelets (Bld) [#/Vol] 283 10*3/uL 150-450 [facility] Potassium measurement (mass/ volume)Ordered By: Clarissa Marina on 08-24-2024 Potassium (Unsp spec) [Mass/Vol] 3.8 mmol/L 3.3-5.1 [facility] Protein Test strip Ql (U)Ord ered By: Clarissa Marina on 08-24-2024 Protein Ql (U) 15 mg/dl High Negative [facility] RBC Auto (Bld) [#/Vol]Ordere d By: Clarissa Marina on 08-24-2024 RBC (Bld) [#/Vol] 4.40 10*6/uL 4.2-5.4 [facility] Serum creatinine measurement (mass/volume)Ordered By: Clarissa Marina on 08-24-2024 Creatinine [Mass/Vol] 0.67 mg/dL Low 0.70-1.20 [facility] Serum globulin measurementOr dered By: Clarissa Marina on 08-24-2024 Globulin (S) [Mass/Vol] 3.1 g/dL 2.2-4.2 [facility] Serum glucose measurement (m ass/volume)Ordered By: Clarissa Marina on 08-24-2024 Glucose [Mass/Vol] 86 mg/dL 70-99 [facility] Serum or plasma alanine husain otransferase (ALT) measurementOrdered By: Clarissa Marina on 08-24-2024 ALT [Catalytic activity/Vol] 11 U/L <35 [facility] Serum or plasma albumin ana urement (mass/volume)Ordered By: Clarissa Marina on 08-24-2024 Albumin [Mass/Vol] 4.3 g/dL 3.5-5.0 [facility] Serum or plasma albumin/glob ulin mass ratioOrdered By: Clarissa Marina on 08-24-2024 Albumin/Globulin [Mass ratio] 1.4 {ratio} 0.9-2.4 [facility] Serum or plasma alkaline gamal sphatase measurementOrdered By: Clarissa Marina on 08-24-2024 ALP [Catalytic activity/Vol] 60 U/L 35-104 [facility] Serum or plasma calcium ana urement (mass/volume)Ordered By: Clarissa Marina on 08-24-2024 Calcium [Mass/Vol] 9.0 mg/dL 7.6-11.0 [facility] Serum or plasma urea nitroge n measurement (mass/volume)Ordered By: Clarissa Marina on 08-24-2024 Urea nitrogen [Mass/Vol] 7 mg/dL 4-19 [facility] Sodium levelOrdered By: Jose Marina on 08-24-2024 Sodium [Moles/Vol] 139 mmol/L 133-145 [facility] Squamous epithelial cells de tection in urine sediment by light microscopyOrdered By: Clarissa Marina on 08-24-2024 Epithelial cells.squamous LM Ql (Urine sed) 0 SEEN /hpf 5-10 [facility] Total proteinOrdered By: Cara Marina on 08-24-2024 Protein [Mass/Vol] 7.4 g/dL 5.9-8.4 [facility] Urinalysis, Completeon 08-24 BACTERIA 0 SEEN Normal None Seen [facility] Comment on above: Order Comment: CLEAN CATCH Performed By: #### L 400.0001 ####[facility] [address] [place], [address] EPI,SQUAMOUS 0 SEEN Normal 5-10 [facility] Comment on above: Order Comment: CLEAN CATCH Performed By: #### L 400.0001 ####[facility] [address] [place], [address] Mucus Ql (Urine sed) 0 SEEN Normal [facility] Comment on above: Order Comment: CLEAN CATCH Performed By: #### L 400.0001 ####[facility] [address] [place], [address] RBC 0 SEEN Normal 0-5 [facility] Comment on above: Order Comment: CLEAN CATCH Performed By: #### L 400.0001 ####[facility] [address] [place], [address] WBC 0 SEEN Normal 0-5 [facility] Comment on above: Order Comment: CLEAN CATCH Performed By: #### L 400.0001 ####[facility] [address] [place], [address] Urine clarityOrdered By: Cara Marina on 08-24-2024 Clarity (U) Clear Clear [facility] Urine color determinationOrd ered By: Clarissa Marina on 08-24-2024 Color (U) Yellow Yellow [facility] Urine glucose detectionOrder ed By: Clarissa Marina on 08-24-2024 Glucose Ql (U) Normal mg/dl Normal [facility] Urine leukocyte esterase det ection by dipstickOrdered By: Clarissa Marina on 08-24-2024 Leukocyte esterase Test strip Ql (U) Negative Negative [facility] Urine pHOrdered By: Clarsisa hkan on 08-24-2024 pH (U) 6.5 [pH] 5.0 - 8.0 [facility] Urine sediment bacteria coun t by microscopy (number/high power field)Ordered By: Clarissa Marina on 08-24-2024 Bacteria LM.HPF (Urine sed) [#/Area] 0 /[HPF] None Seen [facility] Urine specific gravity measu rementOrdered By: Clarissa Marina on 08-24-2024 Specific gravity (U) [Rel density] 1.015 1.002-1.030 [facility] Urine urobilinogen measureme ntOrdered By: Clarissa Marina on 08-24-2024 Urobilinogen Ql (U) Normal mg/dl Normal [facility] White blood cell (WBC) count Ordered By: Clarissa Marina on 08-24-2024 WBC (Bld) [#/Vol] 11.7 10*3/uL High 4.4-11.0 [facility] White blood cell countOrdere d By: Clarissa Marina on 08-24-2024 White blood cell count 0 SEEN /hpf 0-5 [facility] Absolute lymphocyte countOrd ered By: Kody العلي on 08-23-2024 Lymphocytes Auto (Unsp spec) [#/Vol] 1.88 10*3/uL 0.83-4.51 [facility] Absolute neutrophil countOrd ered By: Kody العلي on 08-23-2024 Neutrophils (Bld) [#/Vol] 13.3 10*3/uL High 2.0-7.7 [facility] Anion gap in Serum or Plasma Ordered By: Kody العلي on 08-23-2024 Anion gap [Moles/Vol] 14 mmol/L 5-15 [facility] Automated blood erythrocyte countOrdered By: Kody العلي on 08-23-2024 RBC (Bld) [#/Vol] 4.43 10*6/uL Normal 4.2-5.4 [facility] Comment on above: Performed By: #### L 100.0100, L501.2450, L500.4050, L700.6800 #### [facility] [address] [place], [place] [address] [place], [place], [id number] Automated blood hematocrit ( percentage)Ordered By: Kody العلي on 08-23-2024 Hematocrit (Bld) [Volume fraction] 38.1 % Normal 37-47 [facility] Comment on above: Performed By: #### L 100.0100, L501.2450, L500.4050, L700.6800 #### [facility] [address] [place], [place], [id number] Automated lymphocyte count a s percentage of total leukocytesOrdered By: Kody العلي on 08-23-2024 Lymphocytes/100 WBC Auto (Unsp spec) 11.8 % Low 19-41 [facility] BUN/creatinine ratioOrdered By: Kody العلي on 08-23-2024 Urea nitrogen/Creatinine [Mass ratio] 17.7 mg/mg 10-20 [facility] Basophil percentageOrdered B y: Kody العلي on 08-23-2024 Basophils/100 WBC (Bld) 0.6 % Normal 0-1 [facility] Comment on above: Performed By: #### L 100.0100, L501.2450, L500.4050, L700.6800 #### [facility] [address] [place], [place], [id number] Bilirubin Test strip Ql (U)O rdered By: Kody العلي on 08-23-2024 Bilirubin Ql (U) Negative Negative [facility] Bilirubin, totalOrdered By: Kody العلي on 08-23-2024 Bilirubin [Mass/Vol] 0.55 mg/dL 0.00-1.30 [facility] CBC W/Diff, Automatedon 08-07 Absolute Lymph 1.88 X10 3/uL Normal 0.83-4.51 [facility] Comment on above: Performed By: #### L 100.0100, L501.2450, L500.4050, L700.6800 #### [facility] [address] [place], [place], [id number] Absolute Neut 13.3 X10 3/uL High 2.0-7.7 [facility] Comment on above: Performed By: #### L 100.0100, L501.2450, L500.4050, L700.6800 #### [facility] [address] [place], [address] IG% 0.500 Normal 0.0-0.9 [facility] Comment on above: Result Comment: IG% - Immature Granulocytes (promyelocytes, myelocytes and metamyelocytes) > 1% indicates that a LEFT SHIFT is Present. Performed By: #### L 100.0100, L501.2450, L500.4050, L700.6800 #### [facility] [address] [place], [address] Lymphocytes/100 WBC (Bld) 11.8 % Low 19-41 [facility] Comment on above: Performed By: #### L 100.0100, L501.2450, L500.4050, L700.6800 #### [facility] [address] [place], [address] Nucleated RBC (Bld) [#/Vol] 0 10*3/uL Normal 0-5 [facility] Comment on above: Performed By: #### L 100.0100, L501.2450, L500.4050, L700.6800 #### [facility] [address] [place], [address] RDW SD 39.9 fl Normal 35.1-43.9 [facility] Comment on above: Performed By: #### L 100.0100, L501.2450, L500.4050, L700.6800 #### [facility] [address] [place], [address] Carbon dioxide, total [Moles /volume] in Central venous bloodOrdered By: Kody العلي on 08-23-2024 CO2 [Moles/Vol] 23.1 mmol/L 21.0-32.0 [facility] Chloride assayOrdered By: Rolf العلي on 08-23-2024 Chloride [Moles/Vol] 101 mmol/L 98-108 [facility] Comprehensive Metabolic Prof ilon 08-23-2024 Albumin [Mass/Vol] 4.5 g/dL Normal 3.5-5.0 [facility] Comment on above: Performed By: #### L 100.0100, L501.2450, L500.4050, L700.6800 #### [facility] [address] [place], [address] Albumin/Globulin [Mass ratio] 1.5 {ratio} Normal 0.9-2.4 [facility] Comment on above: Performed By: #### L 100.0100, L501.2450, L500.4050, L700.6800 #### [facility] [address] [place], [address] ALK PHOS 63 U/L Normal 35-104 [facility] Comment on above: Performed By: #### L 100.0100, L501.2450, L500.4050, L700.6800 #### [facility] [address] [place], [address] ALT [Catalytic activity/Vol] 10 U/L Normal <=34 [facility] Comment on above: Performed By: #### L 100.0100, L501.2450, L500.4050, L700.6800 #### [facility] [address] [place], [address] AST [Catalytic activity/Vol] 20 U/L Normal <=31 [facility] Comment on above: Performed By: #### L 100.0100, L501.2450, L500.4050, L700.6800 #### [facility] [address] [place], [address] Bilirubin [Mass/Vol] 0.55 mg/dL Normal 0.00-1.30 [facility] Comment on above: Performed By: #### L 100.0100, L501.2450, L500.4050, L700.6800 #### [facility] [address] [place], [address] BUN/CRE 17.7 RATIO Normal 10-20 [facility] Comment on above: Performed By: #### L 100.0100, L501.2450, L500.4050, L700.6800 #### [facility] [address] [place], [address] Calcium [Mass/Vol] 9.0 mg/dL Normal 7.6-11.0 [facility] Comment on above: Performed By: #### L 100.0100, L501.2450, L500.4050, L700.6800 #### [facility] [address] [place], [address] Chloride [Moles/Vol] 101 mmol/L Normal 98-108 [facility] Comment on above: Performed By: #### L 100.0100, L501.2450, L500.4050, L700.6800 #### [facility] [address] [place], [address] CO2 [Moles/Vol] 23.1 mmol/L Normal 21.0-32.0 [facility] Comment on above: Performed By: #### L 100.0100, L501.2450, L500.4050, L700.6800 #### [facility] [address] [place], [address] Creatinine [Mass/Vol] 0.68 mg/dL Low 0.70-1.20 [facility] Comment on above: Performed By: #### L 100.0100, L501.2450, L500.4050, L700.6800 #### [facility] [address] [place], [address] ECRCL 132.75 ml/min Normal 50-250 [facility] Comment on above: Performed By: #### L 100.0100, L501.2450, L500.4050, L700.6800 #### [facility] [address] [place], [address] GAP 14 Normal 5-15 [facility] Comment on above: Performed By: #### L 100.0100, L501.2450, L500.4050, L700.6800 #### [facility] [address] [place], [address] GFR/1.73 sq M.predicted among non-blacks MDRD (S/P/Bld) [Vol rate/Area] 125 mL/min/{1.73_m2} Normal >60 [facility] Comment on above: Result Comment: mL/m in/1.73m2 CKD-EPI Creatinine Equation (2020) Performed By: #### L 100.0100, L501.2450, L500.4050, L700.6800 #### [facility] [address] [place], [address] Globulin (S) [Mass/Vol] 3.0 g/dL Normal 2.2-4.2 [facility] Comment on above: Performed By: #### L 100.0100, L501.2450, L500.4050, L700.6800 #### [facility] [address] [place], [address] Glucose [Mass/Vol] 79 mg/dL Normal 70-99 [facility] Comment on above: Performed By: #### L 100.0100, L501.2450, L500.4050, L700.6800 #### [facility] [address] [place], [address] Potassium [Moles/Vol] 4.0 mmol/L Normal 3.3-5.1 [facility] Comment on above: Performed By: #### L 100.0100, L501.2450, L500.4050, L700.6800 #### [facility] [address] [place], [address] Sodium [Moles/Vol] 138 mmol/L Normal 133-145 [facility] Comment on above: Performed By: #### L 100.0100, L501.2450, L500.4050, L700.6800 #### [facility] [address] [place], [address] T PROT 7.5 g/dL Normal 5.9-8.4 [facility] Comment on above: Performed By: #### L 100.0100, L501.2450, L500.4050, L700.6800 #### [facility] [address] [place], [address] Urea nitrogen [Mass/Vol] 12 mg/dL Normal 4-19 [facility] Comment on above: Performed By: #### L 100.0100, L501.2450, L500.4050, L700.6800 #### [facility] [address] [place], [address] Emergency Department Summary on 08-23-2024 Emergency Department Summary [facility] Medical Records Department [address] [place] [address] Emergency Department Summary 08/23/24 MR#: [id number] Acct: [id number] Name: CHANA DE LA O Rep #: [id number] : 2000 23 From: Kody العلي DO PCP: Care Physician,No Primary Status:REG ER Location: ED HPI History of Present Illness Chief Complaint: Abd Pain Narrative Narrative: Chief complaint and HPI: 23-year-old female presents for evaluation of abdominal pain. History taken by patient as well as medical record. Patient states for the past 3 years she has had chronic abdominal pain. States that it always worsens the week before her menstrual cycle. She is due to start her menstrual cycle in a week. States she has seen [facility] as she is concerned it may be endometriosis however after evaluation they do not feel that this is the source of the patient's pain and declined doing exploratory laparotomy. Patient states that she does not take Tylenol or Motrin for the pain. She tries warm showers and heating pads with some relief. Patient states that her typical regiment did not help this time which is why she presents to the emergency department. She states it feels like her typical chronic pain. She denies any fever, chills, URI symptoms, shortness of breath, chest pain, nausea, vomiting, dysuria. Has a history of a tubal ligation. Review of systems: See HPI Medications: As listed on the chart Allergies: As listed on the chart PFSH: Per chart Vital signs: As listed on the chart. Reviewed. Physical exam: Gen: A O x3, NAD Head: Normocephalic, atraumatic Eyes: No sclera icterus, conjunctiva clear ENT: Moist mucous membranes Neck: Trachea midline, No JVD CV: RRR, no murmurs, no peripheral edema Resp: Lungs CTA BL, no w/r/c GI: Abd soft, non-distended, mild tender to palpation diffusely, no r/r/g : No CVA tenderness Musc: Full ROM, no deformity Skin: Warm, dry Neuro: Alert, oriented, grossly intact, sensation intact Psych: Cooperative, appropriate mood and affect [facility] Medical History (Updated 08/23/24 @ 20:[address] Kody العلي, DO) Nausea vomiting IBS (irritable bowel syndrome) Ovarian cyst Marijuana use Wears glasses Gastric reflux Shortness of breath on exertion History of IBS Vapes nicotine containing substance Gastroparesis Vaginal delivery ADHD IBS (irritable bowel syndrome) Encounter for induction of labor Rh negative state in antepartum period Depression affecting IUGR (intrauterine growth restriction) Low iron Marijuana use Syncope Upper abdominal pain Anemia Depression Anxiety Asthma Home Medications ???Medication ???Instructions ???Recorded ???Last Taken ???Type albuterol sulfate 90 mcg/actuation 2 inh inhalation PRN asthma #8. 5 04/07/24 05/11/25 Rx aerosol inhaler grams ibuprofen 400 mg tablet (IBU) 800 mg PO Q6H PRN fever or pain 06/17/24 History alprazolam 0.5 mg tablet 0.5 mg PO QHS PRN sleep #20 tabs 0 07/12/24 Unknown Rx haloperidol 1 mg tablet 1 mg PO QHS #20 tabs 07/12/24 Unkn own Rx pantoprazole 40 mg tablet,delayed 40 mg PO DAILY #30 tabs 07/12/24 Unknown Rx release Allergy/AdvReac Type Severity Reaction Status Date / Time No Known Allergies Allergy Verified 08/23/24 17:21 Family History Father Diabetes Mother Depression Grandmother Breast cancer Surgical History Tubal ligation status History of esophagogastroduodenos copy (EGD) History of cholecystectomy ( 09/2021) H/O dilation and curettage History of adenoidectomy Hx of tonsillectomy Social History household members: significant other Smoking Status: Current some day smoker tobacco type: e-cigarettes alcohol intake: never substance use type: marijuana EXAM Physical Exam Const Vital Signs: 08/23/24 17:20 08/23/24 19:20 Temperature 97.6 F L Temperature Source Oral Pulse Rate 87 79 Respiratory Rate 16 15 Blood Pressure 146/99 H Blood Pressure Mean 114 Pulse Ox 99 100 Oxygen Delivery Method Room Air MDM MDM MDM Narrative Medical decision making narrative: 23-year-old female presents for evaluation of abdominal pain. History taken by patient as well as medical record. Patient states for the past 3 years she has had chronic abdominal pain. States that it always worsens the week before her menstrual cycle. She is due to start her menstrual cycle in a week. States this episode feels like her typical chronic abdominal pain flare. She has tried heating pad, warm showers, massage with little relief. On chart review, patient has been seen multiple times in emergency departme (more content not included)... Normal [facility] Eosinophil percentageOrdered By: Kody العلي on 08-23-2024 Eosinophils/100 WBC (Bld) 0.1 % Normal 0-5 [facility] Comment on above: Performed By: #### L 100.0100, L501.2450, L500.4050, L700.6800 #### [facility] [address] [place], [address] Erythrocyte distribution wid th ratioOrdered By: Kody العلي on 08-23-2024 Erythrocyte distribution width (RBC) [Ratio] 12.8 % Normal 11.6-14.6 [facility] Comment on above: Performed By: #### L 100.0100, L501.2450, L500.4050, L700.6800 #### [facility] [address] [place], [address] Erythrocyte distribution wid th standard deviationOrdered By: Kody James on 08-23-2024 Erythrocyte distribution width (RBC) [Ratio] 39.9 fl 35.1-43.9 [facility] Glomerular filtration rate ( GFR) estimation/1.73 sq m using serum, plasma, or whole bOrdered By: Kody العلي on 08-23-2024 GFR/1.73 sq M.predicted among non-blacks MDRD (S/P/Bld) [Vol rate/Area] 125 mL/min/{1.73_m2} >60 [facility] Comment on above: mL/min/1.73m2 CKD-EP I Creatinine Equation (2020) Hemoglobin measurementOrdere d By: Kody العلي on 08-23-2024 Hemoglobin (Bld) [Mass/Vol] 13.3 g/dL Normal 12.0-15.0 [facility] Comment on above: Performed By: #### L 100.0100, L501.2450, L500.4050, L700.6800 #### [facility] [address] [place], [address] Immature granulocytes/100 WB C Auto (Bld)Ordered By: Kody العلي on 08-23-2024 Immature granulocytes/100 WBC (Bld) 0.500 % 0.0-0.9 [facility] Comment on above: IG% - Immature Granu locytes (promyelocytes, myelocytes and metamyelocytes) > 1% indicates that a LEFT SHIFT is Present. Ketones Test strip Ql (U)Ord ered By: Kody العلي on 08-23-2024 Ketones Ql (U) 150 mg/dl Abnormal Negative [facility] Comment on above: CRITICAL VALUE FISHMAN D TO YENNI RN08/23/242021 Willa Story.RESULTS READ BACK BY SAME. Laboratory - Chemistry and C hemistry - challengeOrdered By: Kody العلي on 08-23-2024 AST [Catalytic activity/Vol] 20 U/L <32 [facility] Lipaseon 08-23-2024 Lipase [Catalytic activity/Vol] 22 U/L Normal 13-75 [facility] Comment on above: Result Comment: Pleedmond pena note: LIPASE revised reference range effective 22. New Lipase methodology. Expected to produce lower values than the previous assay method. NEW Reference Range: 13 - 75 U/L Performed By: #### L 100.0100, L501.2450, L500.4050, L700.6800 #### [facility] [address] [place], [place], [id number] Lipase measurementOrdered By : Kody العلي on 08-23-2024 Lipase [Catalytic activity/Vol] 22 U/L 13-75 [facility] Comment on above: Please note:LIPASE r evised reference range effective 22. New Lipase methodology. Expected to produce lower values than the previous assay method. NEW Reference Range: 13 - 75 U/L MCV (mean corpuscular volume ) determinationOrdered By: Kody العلي on 08-23-2024 MCV (RBC) [Entitic vol] 86.0 fL Normal 81-99 [facility] Comment on above: Performed By: #### L 100.0100, L501.2450, L500.4050, L700.6800 #### [facility] [address] [place], [place], [id number] Mean corpuscular hemoglobin (MCH) determinationOrdered By: Kody العلي on 08-23-2024 MCH (RBC) [Entitic mass] 30.0 pg Normal 27.0-32.0 [facility] Comment on above: Performed By: #### L 100.0100, L501.2450, L500.4050, L700.6800 #### [facility] [address] [place], [address] Mean corpuscular hemoglobin concentration (MCHC) determinationOrdered By: Kody العلي on 08-23-2024 MCHC (RBC) [Mass/Vol] 34.9 g/dL Normal 32-36 [facility] Comment on above: Performed By: #### L 100.0100, L501.2450, L500.4050, L700.6800 #### [facility] [address] [place], [place], [id number] Mean platelet volume determi nationOrdered By: Kody العلي on 08-23-2024 Platelet mean volume (Bld) [Entitic vol] 10.0 fL Normal 6.2-12.0 [facility] Comment on above: Performed By: #### L 100.0100, L501.2450, L500.4050, L700.6800 #### [facility] [address] [facility] [place], [address] Microscopic analysis of urin e for red blood cells (RBC)Ordered By: Kody العلي on 08-23-2024 Microscopic analysis of urine for red blood cells (RBC) 0 SEEN /hpf 0-5 [facility] Monocyte percentageOrdered B y: Kody العلي on 08-23-2024 Monocytes/100 WBC (Bld) 3.5 % Normal 0-10 [facility] Comment on above: Performed By: #### L 100.0100, L501.2450, L500.4050, L700.6800 #### [facility] [address] [place], [address] Mucus LM Ql (Urine sed)Order ed By: Kody العلي on 08-23-2024 Mucus Ql (Urine sed) 1+ /hpf [facility] Neutrophil percentageOrdered By: Kody العلي on 08-23-2024 Neutrophils/100 WBC (Bld) 83.5 % High 47-70 [facility] Comment on above: Performed By: #### L 100.0100, L501.2450, L500.4050, L700.6800 #### [facility] [address] [place], [address] Nitrite Test strip Ql (U)Ord ered By: Kody اعللي on 08-23-2024 Nitrite Ql (U) Negative Negative [facility] Nucleated red blood cell per centageOrdered By: Kody العلي on 08-23-2024 Nucleated RBC/100 WBC (Bld) [Ratio] 0 % 0-5 [facility] Platelet countOrdered By: Rolf العلي on 08-23-2024 Platelets (Bld) [#/Vol] 309 10*3/uL Normal 150-450 [facility] Comment on above: Performed By: #### L 100.0100, L501.2450, L500.4050, L700.6800 #### [facility] [address] [place], [address] Potassium measurement (mass/ volume)Ordered By: Kody العلي on 08-23-2024 Potassium (Unsp spec) [Mass/Vol] 4.0 mmol/L 3.3-5.1 [facility] ,Serum,hCG Quali.on 08-23-2024 HCG, SERUM QUAL Negative Normal [facility] Comment on above: Performed By: #### L 100.0100, L501.2450, L500.4050, L700.6800 #### [facility] [place], [address] Protein Test strip Ql (U)Ord ered By: Kody العلي on 08-23-2024 Protein Ql (U) 30 mg/dl High Negative [facility] Serum beta-hCG test, qualita tiveOrdered By: Kody العلي on 08-23-2024 Beta HCG ( test) Ql Negative [facility] Serum creatinine measurement (mass/volume)Ordered By: Kody العلي on 08-23-2024 Creatinine [Mass/Vol] 0.68 mg/dL Low 0.70-1.20 [facility] Serum globulin measurementOr dered By: Kody العلي on 08-23-2024 Globulin (S) [Mass/Vol] 3.0 g/dL 2.2-4.2 [facility] Serum glucose measurement (m ass/volume)Ordered By: Kody العلي on 08-23-2024 Glucose [Mass/Vol] 79 mg/dL 70-99 [facility] Serum or plasma alanine husain otransferase (ALT) measurementOrdered By: Kody العلي on 08-23-2024 ALT [Catalytic activity/Vol] 10 U/L <35 [facility] Serum or plasma albumin ana urement (mass/volume)Ordered By: Kody James on 08-23-2024 Albumin [Mass/Vol] 4.5 g/dL 3.5-5.0 [facility] Serum or plasma albumin/glob ulin mass ratioOrdered By: Kody العلي on 08-23-2024 Albumin/Globulin [Mass ratio] 1.5 {ratio} 0.9-2.4 [facility] Serum or plasma alkaline gamal sphatase measurementOrdered By: Kody العلي on 08-23-2024 ALP [Catalytic activity/Vol] 63 U/L 35-104 [facility] Serum or plasma calcium ana urement (mass/volume)Ordered By: Kody James on 08-23-2024 Calcium [Mass/Vol] 9.0 mg/dL 7.6-11.0 [facility] Serum or plasma urea nitroge n measurement (mass/volume)Ordered By: Kody العلي on 08-23-2024 Urea nitrogen [Mass/Vol] 12 mg/dL 4-19 [facility] Sodium levelOrdered By: Huan العلي on 08-23-2024 Sodium [Moles/Vol] 138 mmol/L 133-145 [facility] Squamous epithelial cells de tection in urine sediment by light microscopyOrdered By: Kody العلي on 08-23-2024 Epithelial cells.squamous LM Ql (Urine sed) 0-5 SEEN /hpf 5-10 [facility] Total proteinOrdered By: Royal العلي on 08-23-2024 Protein [Mass/Vol] 7.5 g/dL 5.9-8.4 [facility] Urinalysis, Completeon 08-23 BACTERIA RARE Normal None Seen [facility] Comment on above: Order Comment: CLEAN CATCH Performed By: #### L 400.0001 ####[facility] [address] [place], [place], [id number] EPI,SQUAMOUS 0-5 SEEN Normal 5-10 [facility] Comment on above: Order Comment: CLEAN CATCH Performed By: #### L 400.0001 ####[facility] [address] [place], [address] Mucus Ql (Urine sed) 1+ /hpf Normal [facility] Comment on above: Order Comment: CLEAN CATCH Performed By: #### L 400.0001 ####[facility] [address] [place], [address] WBC 0-5 SEEN Normal 0-5 [facility] Comment on above: Order Comment: CLEAN CATCH Performed By: #### L 400.0001 ####[facility] [address] [place], [place], [address] RBC 0 SEEN Normal 0-5 [facility] Comment on above: Order Comment: CLEAN CATCH Performed By: #### L 400.0001 ####[facility] [address] [place], [address] Urine clarityOrdered By: Royal العلي on 08-23-2024 Clarity (U) Sl. Cloudy Clear [facility] Urine color determinationOrd ered By: Kody العلي on 08-23-2024 Color (U) Yellow Yellow [facility] Urine glucose detectionOrder ed By: Kody العلي on 08-23-2024 Glucose Ql (U) Normal mg/dl Normal [facility] Urine leukocyte esterase det ection by dipstickOrdered By: Kody العلي on 08-23-2024 Leukocyte esterase Test strip Ql (U) Negative Negative [facility] Urine pHOrdered By: Kody Santoyo on 08-23-2024 pH (U) 6.5 [pH] 5.0 - 8.0 [facility] Urine sediment bacteria coun t by microscopy (number/high power field)Ordered By: Kody العلي on 08-23-2024 Bacteria LM.HPF (Urine sed) [#/Area] RARE /hpf None Seen [facility] Urine specific gravity measu rementOrdered By: Koyd العلي on 08-23-2024 Specific gravity (U) [Rel density] 1.015 1.002-1.030 [facility] Urine urobilinogen measureme ntOrdered By: Kody العلي on 08-23-2024 Urobilinogen Ql (U) Normal mg/dl Normal [facility] White blood cell (WBC) count Ordered By: Kody العلي on 08-23-2024 WBC (Bld) [#/Vol] 15.9 10*3/uL High 4.4-11.0 [facility] Comment on above: Performed By: #### L 100.0100, L501.2450, L500.4050, L700.6800 #### [facility] [address] [place], [address] White blood cell countOrdere d By: Kody العلي on 08-23-2024 White blood cell count 0-5 SEEN /hpf 0-5 [facility] Gastroenterology Visit Repor ton 07-12-2024 Gastroenterology Visit Report [facility] [address] [place] [address] OFFICE VISIT Date of Service: 07/12/24 MR#: [id number] Acct: [id number] Name: CHANA DE LA O Rep #: [id number] : 2000 Provider: ANDRE jose Age/Sex: 23/F Location: [facility] Status: Signed Intake Vital Signs 06/17/24 11:20 06/19/24 16:43 Height 5 ft 5 in 5 ft 5 in Intake Visit Reasons: Test Result Allergies No Known Allergies Allergy (Verified 07/12/24 13:03) Medications ???Medication ???Instructions ???Recorded ???Confirmed ???Type albuterol sulfate 90 mcg/actuation 2 inh inhalation PRN asthma #8. 5 05/15/23 07/12/24 Rx aerosol inhaler grams ibuprofen 400 mg tablet (IBU) 800 mg PO Q6H PRN fever or pain 07/12/24 History alprazolam 0.5 mg tablet 0.5 mg PO QHS PRN sleep #20 tabs 0 07/12/24 07/12/24 Rx haloperidol 1 mg tablet 1 mg PO QHS #20 tabs 07/12/24 06/07/01 Rx pantoprazole 40 mg tablet,delayed 40 mg PO DAILY #30 tabs 07/12/24 07/12/24 Rx release PFSH Medical History (Updated 07/12/24 @ 14:22 by ANDRE Cochran) Nausea vomiting IBS (irritable bowel syndrome) Ovarian cyst Marijuana use Wears glasses Gastric reflux Shortness of breath on exertion History of IBS Vapes nicotine containing substance Gastroparesis Vaginal delivery ADHD IBS (irritable bowel syndrome) Encounter for induction of labor Rh negative state in antepartum period Depression affecting IUGR (intrauterine growth restriction) Low iron Marijuana use Syncope Upper abdominal pain Anemia Depression Anxiety Asthma Surgical History Tubal ligation status History of esophagogastroduodenos copy (EGD) History of cholecystectomy ( 09/2021) H/O dilation and curettage History of adenoidectomy Hx of tonsillectomy Family History Father Diabetes Mother Depression Grandmother Breast cancer Social History household members: significant other Smoking Status: Current every day smoker (vapes nicotine, smokes marijuana) tobacco type: e- cigarettes alcohol intake: never substance use type: marijuana HPI HPI Details: CHANA DE LA O, is a 23 F who presents to the office today for FU. OV for ER FU regarding swollen bowel on 06.17.24 for diffuse abdominal pain with vomiting for 4hrs. She reports recurring episodes of this for the last 3yrs since her cholecystectomy and D C. She reported to ED physician that this occurs daily and usually hot showers provide relief. Historical dermoid cyst on her right ovary on her CT of the abdomen pelvis that was performed on 06.17.24 measured 3.2 x 3.3 cm, and had scattered inflammation of the small bowel with fluid may reflect enteritis. No bowel obstruction. She reports to me that she wakes daily with nausea, takes a hot shower, smokes a blunt of marijuana and usually everything is ok for the day. She reports the last few days, even the alcohol wipes she keeps at the bedside don't work. She states the Reglan she had been prescribed stopped working 3 days after she started it. She eats mints to help nausea through the day. She denies excessive caffeine intake, alcohol and illicit drug use. She denies heartburn, reflux, difficulty chewing and swallowing, constipation, diarrhea, hematochezia, and melena. 06.19.24 OV CHANA DE LA O, is a 23 F who presents to the office today for ER FU regarding swollen bowel on 06.17.24 for diffuse abdominal pain with vomiting for 4hrs. Reviewed care plan with her. Discussed presence of right ovarian cyst slight increase in size. Reviewed cannabinoid hyperemesis syndrome and she denies that being the problem. Bidirectional endoscopies last performed 06.22.23. schedule capsule endoscopy to investigate abdominal CT findings of scattered inflammation of the small bowel with fluid may reflect enteritis. office FU post interpretation of pill cam 06.27.24 Pill cam - Nonspecific low grade inflammation throughout the small bowel. There were no strictures, ulcerations, or gross inflammation seen. 07.12.24 OV She presents today with continued complaints of epigastric abdominal pain worse upon first waking, that doubles her up until she can get in to the shower where she will stay for 30minutes up to an hour. She reports cutting way back on her marijuana intake, smoking 1 blunt 2 to 3 times a week instead of 5 blunts a day. She keeps alcohol wipes on her night stand to help with the nausea. Her coping mechanisms include showers and breathing exercises, if they don't work she just raw dogs the pain until it's so bad, then go to the ER because Tylenol and Advil ain't gonna touch it. She states desire to completely quit smokin (more content not included)... Normal [facility] Office Visit Reporton 2024 Office Visit Report [facility] [address] [place] [address] OFFICE VISIT Date of Service: 06/27/24 MR#: [id number] Acct: [id number] Patient: CHANA DE LA O Rep #: [id number] : 2000 Provider: Rodrick Kowalski DO Age/Sex: 23/F Location: [facility] Status: Signed Intake Vital Signs 06/17/24 11:20 06/19/24 16:43 Height 5 ft 5 in 5 ft 5 in Weight: 168 lb 9.6 oz BMI 28.0 BP 119/105 H Respiration 20 H Pulse 91 Temp 97.6 F L Temp Source Oral Pulse Oximetry (%) 99 Intake Visit Reasons: cap endo Chief Complaint: 4 week med check Allergies No Known Allergies Allergy (Verified 06/19/24 13:36) Office Procedures Procedure Administration Route: PO Administration Location: [facility] Dispensed Units: 1 Capsule Lot Number: [id number] Expiration Date: 04/06/25 Capsule ID Number: [id number] Consent Form Signed: Yes 06/27/24 1644 Date Rodrick Friend DO Edith Signature: Date (if applicable) [place]: [place]2024 [facility] Office Visit (UCW[facility] ) CHANA DE LA O ([id number]) 1 F Date Time Provider Department 06/26/24 9:30 AM PAUL EUBANKS [facility] During your visit today, we recorded the following information about you: Temperature Pulse Respiration Blood pressure 98.2 degrees 84/minute 18/minute 106/64 Weight 76.9 kg Paul Eubanks PA 06/26/2024 9:56 AM Signed [facility] Subjective Chana De La O is a 23 year old female. Patient presents with: Chest Congestion: nasal congestion, cough and sob x 1 week HPI Cough: - Dry cough x1 week. - Denies associated chest pain, fever, or nasal congestion. Asthma: - Exacerbation triggered by cough this morning. - Reports SOB and wheezing. - Inhaler use: Ran out of inhaler. Seasonal Allergies: - Takes Benadryl PRN. PAST MEDICAL HISTORY Diagnosis Date ADHD (attention [...] hours as needed for wheezing/shortness of breath. albuterol HFA (PROVENTIL HFA, VENTOLIN HFA) 90 mcg/actuation inhaler Inhale 2 puffs as instructed every 4 hours as needed for wheezing/shortness of breath. FAMILY HISTORY Problem Relation Age of Onset No Known Problems Mother Diabetes Father No Known Problems Sister Breast Cancer Maternal Grandmother Obstructive Sleep Apnea Maternal Grandfather Diabetes Paternal Grandfather No Known Problems Half-brother No Known Problems Daughter Social History Tobacco Use Smoking status: Former Current packs/day: 0.00 Types: Cigarettes Start date: 11/08/2014 Quit date: 11/08/2022 Years since quittin.6 Passive exposure: Past Smokeless tobacco: Never Tobacco comments: vape Vaping Use Vaping status: Some Days Substances: Nicotine Substance Use Topics Alcohol use: Never Drug use: Not Currently Types: Marijuana Review of Systems Constitutional: (-) fever Ears/Nose/Mouth/Throat : (-) congestion Cardiovascular: (-) chest pain Respiratory: (+) cough (dry) + wheezing Nursing note reviewed. Vitals reviewed Objective BP 106/64 Pulse 84 Temp 36.8 ?C (98.2 ?F) Resp 18 Wt 76.9 kg (169 lb 8.5 oz) LMP 04/07/2024 SpO2 99% BMI 28.21 kg/m? Physical Exam General: No acute distress. HEENT: Pharynx without erythema. TM normal bilaterally. CV: Regular rhythm. Resp: Mild expiratory wheezing. No respiratory distress. {1. Mild intermittent asthma with acute exacerbation (HCC) (J45.21) 2. Acute cough (R05.1) - Acute cough for one week triggering asthma exacerbation; no chest pain, but experiencing shortness of breath and wheezing. Cough is dry, without fever or nasal congestion. - Mild wheezing noted on auscultation during expiration; no erythema in throat, no nasal congestion. - Prescribed albuterol inhaler, 2 puffs every 4 hours as needed; prescription sent to [facility]. - Advised initiation of daily Zyrtec or Claritin for a couple of weeks to manage seasonal allergies. - Patient declined prednisone treatment. and Recording using [employer] software for draft documentation of the visit was discussed with the patient/authorized underwriting account representative; all questions welcomed and answered. Patient/authorized underwriting account representative agreed to proceed History and Record Review External record(s) reviewed: prior outpatient record. Differential Diagnoses - uri is more likely for the following reason(s): suggested by HANDP - asthma is more likely for the following reason(s): suggested by HANDP - pneumonia is less likely for the following reason(s): HANDP not suggestive Disposition The patient was discharged. OTC Medications were advised: Zyrtec or claritin Procedures Allergies As of Date: 06/26/2024 Noted Allergy Reaction SEASONAL ALLERGIES 11/30/2017 3 - Cough 14 - Other: See Comments 9 - Itching Date Reviewed: 06/26/2024 Reviewed by: Patricia Sadler MA - Fully Assessed Reason for Visit: Chest Congestion [236] Cmt: nasal congestion, cough and sob x 1 week Primary Visit Diagnosis:Mild intermittent asthma with acute exacerbation (HCC) [J45.21] Other Visit Diagnosis:Acute cough [R05.1] Order(s):albuterol HFA (PROVENTIL HFA, VENTOLIN HFA) 90 mcg/actuation inhalerInhale 2 puffs as instructed every 4 hours as needed for wheezing/shortness of breath.Disp: 6.7 gRfl: 0 Prescriptions as of 06/26/2024 - alb (more content not included)... Normal [facility] Gastroenterology Visit Repor ton 06-19-2024 Gastroenterology Visit Report [facility] Gastroenterology [address] [place] [address] OFFICE VISIT Date of Service: 06/19/24 MR#: [id number] Acct: [id number] Name: CHANA DE LA O Rep #: [id number] : 2000 Provider: ANDRE jose Age/Sex: 23/F Location: [facility] Status: Signed Intake Vital Signs 06/17/24 11:20 Height 5 ft 5 in Intake Visit Reasons: ER FU SWOLLEN BOWEL Allergies No Known Allergies Allergy (Verified 06/19/24 13:36) Medications ???Medication ???Instructions ???Recorded ???Confirmed ???Type albuterol sulfate 90 mcg/actuation 2 inh inhalation PRN asthma #8. 5 05/15/23 06/19/24 Rx aerosol inhaler grams ibuprofen 400 mg tablet (IBU) 800 mg PO Q6H PRN fever or pain 06/19/24 History PFSH Medical History (Updated 06/19/24 @ 17:01 by Dian Rodríguez NP-C) Nausea vomiting IBS (irritable bowel syndrome) Ovarian cyst Marijuana use Wears glasses Gastric reflux Shortness of breath on exertion History of IBS Vapes nicotine containing substance Gastroparesis Vaginal delivery ADHD IBS (irritable bowel syndrome) Encounter for induction of labor Rh negative state in antepartum period Depression affecting IUGR (intrauterine growth restriction) Low iron Marijuana use Syncope Upper abdominal pain Anemia Depression Anxiety Asthma Surgical History Tubal ligation status History of esophagogastroduodenos copy (EGD) History of cholecystectomy ( 09/2021) H/O dilation and curettage History of adenoidectomy Hx of tonsillectomy Family History Father Diabetes Mother Depression Grandmother Breast cancer Social History household members: significant other Smoking Status: Current every day smoker (vapes nicotine, smokes marijuana) tobacco type: e- cigarettes alcohol intake: never substance use type: marijuana HPI HPI Details: CHANA DE LA O, is a 23 F who presents to the office today for ER FU regarding swollen bowel on 06.17.24 for diffuse abdominal pain with vomiting for 4hrs. She reports recurring episodes of this for the last 3yrs since her cholecystectomy and D C. She reported to ED physician that this occurs daily and usually hot showers provide relief. Historical dermoid cyst on her right ovary on her CT of the abdomen pelvis that was performed on 06.17.24 measured 3.2 x 3.3 cm, and had scattered inflammation of the small bowel with fluid may reflect enteritis. No bowel obstruction. She reports to me that she wakes daily with nausea, takes a hot shower, smokes a blunt of marijuana and usually everything is ok for the day. She reports the last few days, even the alcohol wipes she keeps at the bedside don't work. She states the Reglan she had been prescribed stopped working 3 days after she started it. She eats mints to help nausea through the day. She denies excessive caffeine intake, alcohol and illicit drug use. She denies heartburn, reflux, difficulty chewing and swallowing, constipation, diarrhea, hematochezia, and melena. ROS Const Constitutional: No fatigue, fever(s) or weight change ENT ENT: No difficulty swallowing Gastro GI: Positive for nausea/dyspepsia and vomiting; No abdominal pain, belching, bloating, change in bowel habits, change in stool character, coffee ground emesis, constipation, cramping, diarrhea, heartburn, difficulty swallowing, feeling full early, excessive flatus, incontinent of stools, Vomiting blood/hematemesis, Blood in stool, loose stools, Black,tarry stools, pain with swallowing or other Musc Musculoskeletal: No joint pain Skin Skin: No yellowing of the eye or itchy eyes Psych Psychiatric: No anxiety and No depression Endo Endocrine: No fatigue or weight change Aller/Imm Allergy/Immunologic: No itchy eyes Adilson/Lymp Hematologic/Lymphatic: No easy bleeding or easy bruising Exam Const General: cooperative, healthy appearing and comfortable Nutritional Appearance: average body habitus Orientation: alert and oriented x3 HENMT Head: normal to inspection Ears: hearing grossly normal bilaterally Eyes General: appearance normal, both eyes and all related structures Sclera: sclerae normal Neck Neck: normal visual inspection and full ROM Chest Chest palpation inspection: normal inspection of the chest Resp Effort Inspection: normal respiratory effort, able to speak in complete sentences and symmetric chest movement GI Inspection: normal to inspection Skin General: no rashes or lesions noted Neuro General: patient alert, patient oriented x3 and moves all extremities Cognition: normal cognition Speech: speech normal Gait: normal gait Extrem General: full (more content not included)... Normal [facility] Abdomen/Pelvis W IV Cont ONL Yon 06-17-2024 Abdomen/Pelvis W IV Cont ONLY [facility] Imaging Services [address] [place] [address] Abdomen/Pelvis W IV Cont ONLY MR#: [id number] Acct: [id number] Name: JAYLYNCHANA DAYTON Rep #: [id number] : 2000 F 23 From: Cristy Yin PCP: Care Physician,No Primary Status: REG ER Study: Abdomen/Pelvis W IV Cont ONLY Date of Exam: Exam# [id number] Ordering Dr: Davis Dorman MD PROCEDURE: ABDOMEN/PELVIS W IV CONT ONLY 06/17/2024 REASON FOR EXAM: DIFFUSE ABD PAIN, N/V TECHNIQUE: Abdomen and pelvis CT with intravenous contrast. Coronal and Sagittal reconstruction series were provided. CONTRAST: 100 mL of Isovue 370 One or more dose reduction techniques were used (e.g., Automated exposure control, adjustment of the mA and/or kV according to patient size, use of iterative reconstruction technique. RADIATION DOSE SUMMARY: DLP: 855 mGycm COMPARISON: 12/05/23 FINDINGS: Limited sections of the lung bases demonstrate no focal pulmonary mass. The liver, spleen, pancreas, and both kidneys demonstrate no acute findings. Nodular thickening of the left adrenal gland; the right adrenal gland is unremarkable. The gallbladder is surgically absent. The stomach is unremarkable. The aorta and IVC demonstrate no acute findings. Scattered inflammation of the small bowel with fluid may reflect enteritis. No bowel obstruction. The appendix is not clearly identified, although there are no secondary signs of appendicitis. No bowel obstruction. The pelvic structures are intact. Grossly stable 3.2 x 3.3 cm fat-containing mass in the right ovary likely reflecting a dermoid cyst. The urinary bladder is partially distended. Visualized osseous structures demonstrate no acute abnormality. CT/Abdomen/Pelvis W IV Cont ONLY IMPRESSION: Scattered inflammation of the small bowel with fluid may reflect enteritis. No bowel obstruction. Reading Location: [facility] CC: Dr. Davis Dorman MD; No Primary Care Physician Handle Turner: Signed Normal [facility] Absolute lymphocyte countOrd ered By: Davis Dorman on 06-17-2024 Lymphocytes Auto (Unsp spec) [#/Vol] 1.97 10*3/uL 0.83-4.51 [facility] Absolute neutrophil countOrd ered By: Davis Dorman on 06-17-2024 Neutrophils (Bld) [#/Vol] 7.8 10*3/uL High 2.0-7.7 [facility] Anion gap in Serum or Plasma Ordered By: Davis Dorman on 06-17-2024 Anion gap [Moles/Vol] 12 mmol/L 5-15 [facility] Automated lymphocyte count a s percentage of total leukocytesOrdered By: Davis Dorman on 06-17-2024 Lymphocytes/100 WBC Auto (Unsp spec) 19.0 % 19-41 [facility] BUN/creatinine ratioOrdered By: Davis Dorman on 06-17-2024 Urea nitrogen/Creatinine [Mass ratio] 9.2 mg/mg Low 10-20 [facility] Basophil percentageOrdered B y: Davis Dorman on 06-17-2024 Basophils/100 WBC (Bld) 0.7 % 0-1 [facility] Bilirubin Test strip Ql (U)O rdered By: Davis Dorman on 06-17-2024 Bilirubin Ql (U) Negative Negative [facility] Bilirubin, totalOrdered By: Davis Dorman on 06-17-2024 Bilirubin [Mass/Vol] 0.30 mg/dL 0.00-1.30 [facility] CBC W/Diff, Automatedon 06-07 Absolute Lymph 1.97 X10 3/uL Normal 0.83-4.51 [facility] Comment on above: Performed By: #### L 700.6800, L501.2450, L100.0100, L500.4050 ####[facility] [address] [place], [address] Absolute Neut 7.8 X10 3/uL High 2.0-7.7 [facility] Comment on above: Performed By: #### L 700.6800, L501.2450, L100.0100, L500.4050 ####[facility] [address] [place], [address] Basophils/100 WBC (Bld) 0.7 % Normal 0-1 [facility] Comment on above: Performed By: #### L 700.6800, L501.2450, L100.0100, L500.4050 ####[facility] [address] [place], [address] Eosinophils/100 WBC (Bld) 1.0 % Normal 0-5 [facility] Comment on above: Performed By: #### L 700.6800, L501.2450, L100.0100, L500.4050 ####[facility] [address] [place], [address] Erythrocyte distribution width (RBC) [Ratio] 12.2 % Normal 11.6-14.6 [facility] Comment on above: Performed By: #### L 700.6800, L501.2450, L100.0100, L500.4050 ####[facility] [address] [place], [address] Hematocrit (Bld) [Volume fraction] 40.1 % Normal 37-47 [facility] Comment on above: Performed By: #### L 700.6800, L501.2450, L100.0100, L500.4050 ####[facility] [address] [place], [address] Hemoglobin (Bld) [Mass/Vol] 14.2 g/dL Normal 12.0-15.0 [facility] Comment on above: Performed By: #### L 700.6800, L501.2450, L100.0100, L500.4050 ####[facility] [address] [place], [address] IG% 0.500 Normal 0.0-0.9 [facility] Comment on above: Result Comment: IG% - Immature Granulocytes (promyelocytes, myelocytes and metamyelocytes) > 1% indicates that a LEFT SHIFT is Present. Performed By: #### L 700.6800, L501.2450, L100.0100, L500.4050 ####[facility] [address] [place], [address] Lymphocytes/100 WBC (Bld) 19.0 % Normal 19-41 [facility] Comment on above: Performed By: #### L 700.6800, L501.2450, L100.0100, L500.4050 ####[facility] [address] [place], [address] MCH (RBC) [Entitic mass] 30.8 pg Normal 27.0-32.0 [facility] Comment on above: Performed By: #### L 700.6800, L501.2450, L100.0100, L500.4050 ####[facility] [address] [place], [address] MCHC (RBC) [Mass/Vol] 35.4 g/dL Normal 32-36 [facility] Comment on above: Performed By: #### L 700.6800, L501.2450, L100.0100, L500.4050 ####[facility] [address] [place], [address] MCV (RBC) [Entitic vol] 87.0 fL Normal 81-99 [facility] Comment on above: Performed By: #### L 700.6800, L501.2450, L100.0100, L500.4050 ####[facility] [address] [place], [address] Monocytes/100 WBC (Bld) 3.4 % Normal 0-10 [facility] Comment on above: Performed By: #### L 700.6800, L501.2450, L100.0100, L500.4050 ####[facility] [address] [place], [address] Neutrophils/100 WBC (Bld) 75.4 % High 47-70 [facility] Comment on above: Performed By: #### L 700.6800, L501.2450, L100.0100, L500.4050 ####[facility] [address] [place], [address] Nucleated RBC (Bld) [#/Vol] 0 10*3/uL Normal 0-5 [facility] Comment on above: Performed By: #### L 700.6800, L501.2450, L100.0100, L500.4050 ####[facility] [address] [place], [address] Platelet mean volume (Bld) [Entitic vol] 10.3 fL Normal 6.2-12.0 [facility] Comment on above: Performed By: #### L 700.6800, L501.2450, L100.0100, L500.4050 ####[facility] [address] [place], [address] Platelets (Bld) [#/Vol] 302 10*3/uL Normal 150-450 [facility] Comment on above: Performed By: #### L 700.6800, L501.2450, L100.0100, L500.4050 ####[facility] [address] [place], [address] RBC (Bld) [#/Vol] 4.61 10*6/uL Normal 4.2-5.4 [facility] Comment on above: Performed By: #### L 700.6800, L501.2450, L100.0100, L500.4050 ####[facility] [address] [place], [address] RDW SD 39.2 fl Normal 35.1-43.9 [facility] Comment on above: Performed By: #### L 700.6800, L501.2450, L100.0100, L500.4050 ####[facility] [address] [place], [address] WBC (Bld) [#/Vol] 10.4 10*3/uL Normal 4.4-11.0 [facility] Comment on above: Performed By: #### L 700.6800, L501.2450, L100.0100, L500.4050 ####[facility] [address] [place], [address] Carbon dioxide, total [Moles /volume] in Central venous bloodOrdered By: Davis Dorman on 06-17-2024 CO2 [Moles/Vol] 22.1 mmol/L 21.0-32.0 [facility] Chloride assayOrdered By: Rob Dorman on 06-17-2024 Chloride [Moles/Vol] 106 mmol/L 98-108 [facility] Comprehensive Metabolic Prof ilon 06-17-2024 Albumin [Mass/Vol] 4.5 g/dL Normal 3.5-5.0 [facility] Comment on above: Performed By: #### L 700.6800, L501.2450, L100.0100, L500.4050 ####[facility] [address] [place], [address] Albumin/Globulin [Mass ratio] 1.4 {ratio} Normal 0.9-2.4 [facility] Comment on above: Performed By: #### L 700.6800, L501.2450, L100.0100, L500.4050 ####[facility] [address] [place], [address] ALK PHOS 69 U/L Normal 35-104 [facility] Comment on above: Performed By: #### L 700.6800, L501.2450, L100.0100, L500.4050 ####[facility] [address] [place], [address] ALT [Catalytic activity/Vol] 8 U/L Normal <=34 [facility] Comment on above: Performed By: #### L 700.6800, L501.2450, L100.0100, L500.4050 ####[facility] [address] [place], [address] AST [Catalytic activity/Vol] 15 U/L Normal <=31 [facility] Comment on above: Performed By: #### L 700.6800, L501.2450, L100.0100, L500.4050 ####[facility] [address] [place], [address] Bilirubin [Mass/Vol] 0.30 mg/dL Normal 0.00-1.30 [facility] Comment on above: Performed By: #### L 700.6800, L501.2450, L100.0100, L500.4050 ####[facility] [address] [place], [address] BUN/CRE 9.2 RATIO Low 10-20 [facility] Comment on above: Performed By: #### L 700.6800, L501.2450, L100.0100, L500.4050 ####[facility] [address] [place], [address] Calcium [Mass/Vol] 8.8 mg/dL Normal 7.6-11.0 [facility] Comment on above: Performed By: #### L 700.6800, L501.2450, L100.0100, L500.4050 ####[facility] [address] [place], [address] Chloride [Moles/Vol] 106 mmol/L Normal 98-108 [facility] Comment on above: Performed By: #### L 700.6800, L501.2450, L100.0100, L500.4050 ####[facility] [address] [place], [address] CO2 [Moles/Vol] 22.1 mmol/L Normal 21.0-32.0 [facility] Comment on above: Performed By: #### L 700.6800, L501.2450, L100.0100, L500.4050 ####[facility] [address] [place], [address] Creatinine [Mass/Vol] 0.66 mg/dL Low 0.70-1.20 [facility] Comment on above: Performed By: #### L 700.6800, L501.2450, L100.0100, L500.4050 ####[facility] [address] [place], [address] ECRCL 135.59 ml/min Normal 50-250 [facility] Comment on above: Performed By: #### L 700.6800, L501.2450, L100.0100, L500.4050 ####[facility] [address] [place], [address] GAP 12 Normal 5-15 [facility] Comment on above: Performed By: #### L 700.6800, L501.2450, L100.0100, L500.4050 ####[facility] [address] [place], [address] GFR/1.73 sq M.predicted among non-blacks MDRD (S/P/Bld) [Vol rate/Area] 126 mL/min/{1.73_m2} Normal >60 [facility] Comment on above: Result Comment: mL/m in/1.73m2 CKD-EPI Creatinine Equation (2020) Performed By: #### L 700.6800, L501.2450, L100.0100, L500.4050 ####[facility] [address] [place], [address] Globulin (S) [Mass/Vol] 3.2 g/dL Normal 2.2-4.2 [facility] Comment on above: Performed By: #### L 700.6800, L501.2450, L100.0100, L500.4050 ####[facility] [address] [place], [address] Glucose [Mass/Vol] 99 mg/dL Normal 70-99 [facility] Comment on above: Performed By: #### L 700.6800, L501.2450, L100.0100, L500.4050 ####[facility] [address] [place], [address] Potassium [Moles/Vol] 4.1 mmol/L Normal 3.3-5.1 [facility] Comment on above: Performed By: #### L 700.6800, L501.2450, L100.0100, L500.4050 ####[facility] [address] [place], [address] Sodium [Moles/Vol] 140 mmol/L Normal 133-145 [facility] Comment on above: Performed By: #### L 700.6800, L501.2450, L100.0100, L500.4050 ####[facility] [address] [place], [address] T PROT 7.7 g/dL Normal 5.9-8.4 [facility] Comment on above: Performed By: #### L 700.6800, L501.2450, L100.0100, L500.4050 ####[facility] [address] [place], [address] Urea nitrogen [Mass/Vol] 6 mg/dL Normal 4-19 [facility] Comment on above: Performed By: #### L 700.6800, L501.2450, L100.0100, L500.4050 ####[facility] [address] [place], [address] Emergency Department Summary on 06-17-2024 Emergency Department Summary [facility] Medical Records Department [address] [place] [address] Emergency Department Summary 06/17/24 MR#: [id number] Acct: [id number] Name: CHANA DE LA O Rep #: [id number] : 2000 23 From: Davis Dorman MD PCP: Care Physician,No Primary Status:REG ER Location: ED HPI HPI - GI History of Present Illness Chief Complaint: Abd Pain Informant: patient Narrative Narrative: 23-year-old female presenting with severe diffuse abdominal pain and vomiting for the past 4 hours or so this morning. She states she is been having episodes of this pain for the past 3 years since she had a cholecystectomy and D C. Typically she gets episodes every day, typically in the morning, often associated with vomiting, but taking a hot shower typically relieves the discomfort. She tried that today and did not work, she also tried other coping mechanisms such as back massage, none of which have helped and she is in severe pain. She states every few months she has what she calls a flareup like this where it gets bad. She denies any hematemesis. She been having normal bowel movements and urination except for urinating a lot just this morning. No dysuria or hematuria. No fevers or chills or trouble breathing. PFSH PFS Medical History IBS (irritable bowel syndrome) Ovarian cyst Marijuana use Wears glasses Gastric reflux Shortness of breath on exertion History of IBS Vapes nicotine containing substance Gastroparesis Vaginal delivery ADHD IBS (irritable bowel syndrome) Encounter for induction of labor Rh negative state in antepartum period Depression affecting IUGR (intrauterine growth restriction) Low iron Marijuana use Syncope Upper abdominal pain Nausea vomiting Anemia Depression Anxiety Asthma Home Medications ???Medication ???Instructions ???Recorded ???Last Taken ???Type albuterol sulfate 90 mcg/actuation 2 inh inhalation PRN asthma #8. 5 05/15/23 06/17/24 Rx aerosol inhaler grams ibuprofen 400 mg tablet (IBU) 800 mg PO Q6H PRN fever or pain 06/17/24 History Allergy/AdvReac Type Severity Reaction Status Date / Time No Known Allergies Allergy Verified 06/17/24 11:22 Family History Father Diabetes Mother Depression Grandmother Breast cancer Surgical History Tubal ligation status History of esophagogastroduodenos copy (EGD) History of cholecystectomy ( 09/2021) H/O dilation and curettage History of adenoidectomy Hx of tonsillectomy Social History household members: significant other Smoking Status: Current every day smoker tobacco type: e-cigarettes alcohol intake: never substance use type: marijuana ROS ROS ED Constitutional Constitutional ED: Denies chills or fever(s) Eyes Eyes: Denies change in vision or diplopia ENT ENT ED: Denies rhinorrhea or sore throat Cardiovascular Cardiovascular: Denies chest pain or palpitations Respiratory/Chest Respiratory/Chest: Denies cough or dyspnea Gastrointestinal Gastrointestinal: Reports as per HPI, abdominal pain, nausea and vomiting; Denies diarrhea, hematemesis or melena Genitourinary Genitourinary ED: Reports urinary frequency; Denies dysuria or hematuria Musculoskeletal Musculoskeletal: Denies back pain or neck pain Integumentary Denies abscess or rash Neurologic Neurologic: Denies headache(s), paresthesias or weakness Psychiatric Psychiatric: Denies suicidal thoughts EXAM Physical Exam Const Vital Signs: 06/17/24 11:20 06/17/24 13:19 Temperature 97.6 F L Temperature Source Oral Pulse Rate 91 68 Respiratory Rate 20 H 18 Blood Pressure 119/105 H 132/60 H Blood Pressure Mean 109 84 Pulse Ox 99 98 Oxygen Delivery Method Room Air Positive well nourished and well developed Constitutional Narrative: Hunched over the bed standing on the floor and painful distress General Appearance ED: well developed HEENT Reports moist mucous membranes normocephalic and atraumatic Eyes PERRL and EOMs intact bilaterally Neck full ROM and supple Resp normal respiratory effort and clear to auscultation bilaterally Cardio regular rate, regular rhythm and no murmurs GI non-distended GI Narrative: Diffuse tenderness. No guarding or rebound. Nondistended, hypoactive bowel sounds. Palpation: soft Back/Spine no CVA tenderness General Back: other FROM Extremity normal to inspection General Extremety ED: Negative for edema, pulses abnormal or tenderness General Extremity: Negative for edema or pulses abnormal Neuro oriented x3, CN's II-XII intact bilate (more content not included)... Normal [facility] Eosinophil percentageOrdered By: Davis Dorman on 06-17-2024 Eosinophils/100 WBC (Bld) 1.0 % 0-5 [facility] Erythrocyte distribution wid th ratioOrdered By: Davis Dorman on 06-17-2024 Erythrocyte distribution width (RBC) [Ratio] 12.2 % 11.6-14.6 [facility] Erythrocyte distribution wid th standard deviationOrdered By: Davis Dorman on 06-17-2024 Erythrocyte distribution width (RBC) [Ratio] 39.2 fl 35.1-43.9 [facility] Glomerular filtration rate ( GFR) estimation/1.73 sq m using serum, plasma, or whole bOrdered By: Davis Dorman on 06-17-2024 GFR/1.73 sq M.predicted among non-blacks MDRD (S/P/Bld) [Vol rate/Area] 126 mL/min/{1.73_m2} >60 [facility] Comment on above: mL/min/1.73m2 CKD-EP I Creatinine Equation (2020) Hematocrit Auto (Bld) [Volum e fraction]Ordered By: Davis Dorman on 06-17-2024 Hematocrit (Bld) [Volume fraction] 40.1 % 37-47 [facility] [facility] Hemoglobin measurementOrdere d By: Davis Dorman on 06-17-2024 Hemoglobin (Bld) [Mass/Vol] 14.2 g/dL 12.0-15.0 [facility] Immature granulocytes/100 WB C Auto (Bld)Ordered By: Davis Dorman on 06-17-2024 Immature granulocytes/100 WBC (Bld) 0.500 % 0.0-0.9 [facility] Comment on above: IG% - Immature Granu locytes (promyelocytes, myelocytes and metamyelocytes) > 1% indicates that a LEFT SHIFT is Present. Ketones Test strip Ql (U)Ord ered By: Davis Dorman on 06-17-2024 Ketones Ql (U) Negative Negative [facility] - Chemistry and C hemistry - challengeOrdered By: Davis Dorman on 06-17-2024 AST [Catalytic activity/Vol] 15 U/L <32 [facility] Lipaseon 06-17-2024 Lipase [Catalytic activity/Vol] 23 U/L Normal 13-75 [facility] Comment on above: Result Comment: Everardo pena note: LIPASE revised reference range effective 22. New Lipase methodology. Expected to produce lower values than the previous assay method. NEW Reference Range: 13 - 75 U/L Performed By: #### L 700.6800, L501.2450, L100.0100, L500.4050 ####[facility] [address] [place], [address] Lipase measurementOrdered By : Davis Dorman on 06-17-2024 Lipase [Catalytic activity/Vol] 23 U/L 13-75 [facility] Comment on above: Please note:LIPASE r evised reference range effective 22. New Lipase methodology. Expected to produce lower values than the previous assay method. NEW Reference Range: 13 - 75 U/L MCV (mean corpuscular volume ) determinationOrdered By: Davis Dorman on 06-17-2024 MCV (RBC) [Entitic vol] 87.0 fL 81-99 [facility] Mean corpuscular hemoglobin (MCH) determinationOrdered By: Davis Dorman on 06-17-2024 MCH (RBC) [Entitic mass] 30.8 pg 27.0-32.0 [facility] Mean corpuscular hemoglobin concentration (MCHC) determinationOrdered By: Davis Dorman on 06-17-2024 MCHC (RBC) [Mass/Vol] 35.4 g/dL 32-36 [facility] Mean platelet volume determi nationOrdered By: Davis Dorman on 06-17-2024 Platelet mean volume (Bld) [Entitic vol] 10.3 fL 6.2-12.0 [facility] Microscopic analysis of urin e for red blood cells (RBC)Ordered By: Davis Dorman on 06-17-2024 Microscopic analysis of urine for red blood cells (RBC) 0 SEEN /hpf 0-5 [facility] Monocyte percentageOrdered B y: Davis Dorman on 06-17-2024 Monocytes/100 WBC (Bld) 3.4 % 0-10 [facility] Mucus LM Ql (Urine sed)Order ed By: Davis Dorman on 06-17-2024 Mucus Ql (Urine sed) 0 SEEN /hpf [facility] Neutrophil percentageOrdered By: Davis Dorman on 06-17-2024 Neutrophils/100 WBC (Bld) 75.4 % High 47-70 [facility] Nitrite Test strip Ql (U)Ord ered By: Davis Dorman on 06-17-2024 Nitrite Ql (U) Negative Negative [facility] Nucleated red blood cell per centageOrdered By: Davis Dorman on 06-17-2024 Nucleated RBC/100 WBC (Bld) [Ratio] 0 % 0-5 [facility] Platelet countOrdered By: Rob Dorman on 06-17-2024 Platelets (Bld) [#/Vol] 302 10*3/uL 150-450 [facility] Potassium measurement (mass/ volume)Ordered By: Davis Dorman on 06-17-2024 Potassium (Unsp spec) [Mass/Vol] 4.1 mmol/L 3.3-5.1 [facility] ,Serum,hCG Quali.on 06-17-2024 HCG, SERUM QUAL Negative Normal [facility] Comment on above: Performed By: #### L 700.6800, L501.2450, L100.0100, L500.4050 ####[facility] [address] [place], [address] Protein Test strip Ql (U)Ord ered By: Davis Dorman on 06-17-2024 Protein Ql (U) 15 mg/dl High Negative [facility] RBC Auto (Bld) [#/Vol]Ordere d By: Davis Dorman on 06-17-2024 RBC (Bld) [#/Vol] 4.61 10*6/uL 4.2-5.4 [facility] Serum beta-hCG test, qualita tiveOrdered By: Davis Dorman on 06-17-2024 Beta HCG ( test) Ql Negative [facility] Serum creatinine measurement (mass/volume)Ordered By: Davis Dorman on 06-17-2024 Creatinine [Mass/Vol] 0.66 mg/dL Low 0.70-1.20 [facility] Serum globulin measurementOr dered By: Davis Dorman on 06-17-2024 Globulin (S) [Mass/Vol] 3.2 g/dL 2.2-4.2 [facility] Serum glucose measurement (m ass/volume)Ordered By: Davis Dorman on 06-17-2024 Glucose [Mass/Vol] 99 mg/dL 70-99 [facility] Serum or plasma alanine husain otransferase (ALT) measurementOrdered By: Davis Dorman on 06-17-2024 ALT [Catalytic activity/Vol] 8 U/L <35 [facility] Serum or plasma albumin ana urement (mass/volume)Ordered By: Davis Dorman on 06-17-2024 Albumin [Mass/Vol] 4.5 g/dL 3.5-5.0 [facility] Serum or plasma albumin/glob ulin mass ratioOrdered By: Davis Dorman on 06-17-2024 Albumin/Globulin [Mass ratio] 1.4 {ratio} 0.9-2.4 [facility] Serum or plasma alkaline gamal sphatase measurementOrdered By: Davis Dorman on 06-17-2024 ALP [Catalytic activity/Vol] 69 U/L 35-104 [facility] Serum or plasma calcium ana urement (mass/volume)Ordered By: Davis Dorman on 06-17-2024 Calcium [Mass/Vol] 8.8 mg/dL 7.6-11.0 [facility] Serum or plasma urea nitroge n measurement (mass/volume)Ordered By: Davis Dorman on 06-17-2024 Urea nitrogen [Mass/Vol] 6 mg/dL 4-19 [facility] Sodium levelOrdered By: Jamar Dorman on 06-17-2024 Sodium [Moles/Vol] 140 mmol/L 133-145 [facility] Squamous epithelial cells de tection in urine sediment by light microscopyOrdered By: Davis Dorman on 06-17-2024 Epithelial cells.squamous LM Ql (Urine sed) 0-5 SEEN /hpf - [facility] Total proteinOrdered By: Eugene Dorman on 06-17-2024 Protein [Mass/Vol] 7.7 g/dL 5.9-8.4 [facility] Urinalysis, Completeon 06-17 EPI,SQUAMOUS 0-5 SEEN Normal - [facility] Comment on above: Order Comment: CLEAN CATCH Performed By: #### L 400.0001 #### [facility] [address] [place], [address] BACTERIA 0 SEEN Normal None Seen [facility] Comment on above: Order Comment: CLEAN CATCH Performed By: #### L 400.0001 #### [facility] [address] [place], [address] Mucus Ql (Urine sed) 0 SEEN Normal [facility] Comment on above: Order Comment: CLEAN CATCH Performed By: #### L 400.0001 #### [facility] [address] [place], [address] RBC 0 SEEN Normal 0-5 [facility] Comment on above: Order Comment: CLEAN CATCH Performed By: #### L 400.0001 #### [facility] [address] [place], [address] WBC 0 SEEN Normal 0-5 [facility] Comment on above: Order Comment: CLEAN CATCH Performed By: #### L 400.0001 #### [facility] [address] [place], [address] Urine clarityOrdered By: Eugene Dorman on 06-17-2024 Clarity (U) Clear Clear [facility] Urine color determinationOrd ered By: Davis Dorman on 06-17-2024 Color (U) Yellow Yellow [facility] Urine glucose detectionOrder ed By: Davis Dorman on 06-17-2024 Glucose Ql (U) Normal mg/dl Normal [facility] Urine leukocyte esterase det ection by dipstickOrdered By: Davis Dorman on 06-17-2024 Leukocyte esterase Test strip Ql (U) Negative Negative [facility] Urine pHOrdered By: Davis Dorman on 06-17-2024 pH (U) 6.0 [pH] 5.0 - 8.0 [facility] Urine sediment bacteria coun t by microscopy (number/high power field)Ordered By: Davis Dorman on 06-17-2024 Bacteria LM.HPF (Urine sed) [#/Area] 0 /[HPF] None Seen [facility] Urine specific gravity measu rementOrdered By: Davis Dorman on 06-17-2024 Specific gravity (U) [Rel density] 1.020 1.002-1.030 [facility] Urine urobilinogen measureme ntOrdered By: Davis Dorman on 06-17-2024 Urobilinogen Ql (U) Normal mg/dl Normal [facility] White blood cell (WBC) count Ordered By: Davis Dorman on 06-17-2024 WBC (Bld) [#/Vol] 10.4 10*3/uL 4.4-11.0 [facility] White blood cell countOrdere d By: Davis Dorman on 06-17-2024 White blood cell count 0 SEEN /hpf 0-5 [facility] C. trachomatis+N. gonorrhoea e DNA ELMIRA+probe Ql (Unsp spec)on 05-04-2024 C. trachomatis rRNA ELMIRA+probe Ql (Unsp spec) Not detected Normal Not detected [facility] Comment on above: Order Comment: Speci men Type: SWABOrdering Facility: [facility] Address: [address] [place] [address] Performed By: #### 3 6902-5, TRVAMP ####[facility] [id number] [address] N. gonorrhoeae rRNA ELMIRA+probe Ql (Unsp spec) Not detected Normal Not detected [facility] Comment on above: Order Comment: Speci men Type: SWABOrdering Facility: [facility] Address: [address] [place] [address] Performed By: #### 3 6902-5, TRVAMP ####[facility] [id number] [address] [place] CNOVon 05-04-2024 CNOV Office Visit (OBGYWM ) CHANA DE LA O ([id number]) 1 F Date Time Provider Department 05/04/24 7:15 AM SVETLANA SCHAEFFER During your visit today, we recorded the following information about you: Blood pressure Weight Last Period 112/72 75.3 kg 04/07/24 Svetlana Schaeffer APRN.SENIOR OCCUPATIONAL THERAPIST 05/04/2024 7:43 AM Signed [employer]p Plant Supervisor Present. Declines Patient presents with desire for STD screening. HPI Chana De La O presents for STD screening. New partner as of January. Denies any new symptoms. She also reported that she continues to struggle with chronic pelvic pain. She reports that this has been present for 3 years now. She is concerned that she has endometriosis and would like further evaluation. Has dermoid cyst to right ovary. PMH, medication, and allergies have been reviewed and updated as appropriate. PAST MEDICAL HISTORY Diagnosis Date ADHD (attention deficit hyperactivity disorder) Anemia Asthma Gastroparesis IBS (irritable bowel syndrome) PCOS (polycystic ovarian syndrome) Placental abruption in third trimester 12/27/2022 Reactive airway disease inhaler use with URIs Current Outpatient Medications Medication Sig boric acid 600 mg vaginal suppository Use 1 Suppository vaginally once daily. Unwrap and insert as directed albuterol HFA (PROVENTIL HFA, VENTOLIN HFA) 90 mcg/actuation inhaler Inhale 2 Puffs as instructed every 4 hours as needed for wheezing/shortness of breath. fluticasone (FLONASE) 50 mcg/actuation nasal spray Use 2 Sprays in each nostril once daily. Rinse mouth after use. cetirizine (ZYRTEC) 10 mg tablet Take 1 tablet by mouth once daily. ferrous sulfate 325 mg (65 mg iron) tablet Take by mouth. No current facility-administered medications for this visit. Participation of a fellow, resident, medical student, or advanced practice provider student in performing the sensitive examination was discussed with the patient or authorized underwriting account representative. The patient or authorized underwriting account representative has agreed to proceed with the sensitive examination. BP 112/72 Wt 75.3 kg (166 lb) LMP 04/07/2024 BMI 27.62 kg/m? PHYSICAL EXAM GENERAL: pleasant, female in no apparent distress HEENT: Normocephalic, atraumatic, mucus membranes moist, and no lesions CHEST: Normal inspiratory effort PELVIC: external genitalia normal, normal Bartholin's glands, urethra, [place]'s glands, + lesion that appears consistent with ingrown hair to right groin and resolving, no cervical lesions, good vaginal support, physiologic discharge present, normal appearing perineal body and perianal region BIMANUAL: uterus normal size, shape and consistency, no adnexal masses, and non-tender RECTOVAGINAL: deferred. NEURO: alert and oriented x3,exam grossly non-focal EXTREMITIES: normal ASSESSMENT/PLAN: 1. Screening for STD (sexually transmitted disease) - ICD9: V74.5, ICD10: Z11.3 (primary diagnosis) - SYPHILIS TREPONEMAL W/REFLEX - HIV 1/2 COMBO WITH REFLEX TO DIFFERENTIATION - GONORRHEA/CHLAMYDIA NAAT - HEPATITIS C VIRUS (HCV) RNA, QUANTITATIVE PCR, PLASMA/SERUM - HERPES SIMPLEX TYPE 1 AND 2 IG (Discussed limitations of this test) - TRICHOMONAS VAGINALIS NAAT 2. Chronic pelvic pain in female - ICD9: 625.9, 338.29, ICD10: R10.2, G89.29 - ENDOMETRIOSIS U/S [facility] - CONSULT TO MINIMALLY INVASIVE GYNECOLOGIC SURGERY 3. Dermoid cyst of ovary, right - ICD9: 220, ICD10: D27.0 - CONSULT TO MINIMALLY INVASIVE GYNECOLOGIC SURGERY Svetlana Schaeffer APRN.SB Medical Decision Making: Problems: Minimal: Self-limited or minor problem Moderate: 2+ stable chronic illnesses Data: Unique test(s) ordered: 3+ Risk: Low: Low risk from testing/treatment Medical Decision Making Level: 4 - Moderate Allergies As of Date: 05/04/2024 Noted Allergy Reaction SEASONAL ALLERGIES 11/30/2017 3 - Cough 14 - Other: See Comments 9 - Itching Date Reviewed: 05/04/2024 Reviewed by: Svetlana Schaeffer APRN.SENIOR OCCUPATIONAL THERAPIST - Fully Assessed Reason for Visit: STD [102] Primary Visit Diagnosis:Screening for STD (sexually transmitted disease) [Z11.3] Other Visit Diagnoses:Chronic pelvic pain in female [R10.2, G89.29] Dermoid cyst of ovary, right [D27.0] Order(s):SYPHILIS TREPONEMAL W/REFLEX [SQSYPHTX] Order #: [id number] FUTURE HIV 1/2 COMBO WITH REFLEX TO DIFFERENTIATION [SQHIV12] Order #: [id number] FUTURE GONORRHEA/CHLAMYDIA NAAT [SQGCCT] Order #: [id number] HEPATITIS C VIRUS (HCV) RNA, QUANTITATIVE PCR, PLASMA/SERUM [SQHCQPCR] Order #: [id number] FUTURE HERPES SIMPLEX TYPE 1 AND 2 IG [KVVRLR59] Order #: [id number] FUTURE TRICHOMONAS VAGINALIS NAAT [SQTRVAMP] Order #: [id number] ENDOMETRIOSIS U/S [facility] [[id number]] Order #: [id number]: 1 FUTURE CONSULT TO MINIMALLY INVASIVE GYNECOLOGIC SURGERY [[id number]] Order #: [id number]: 1 FUTURE Prescriptions as of 05/04/2024 - albuterol HFA (PROVENTIL HFA, VENTOLIN HFA) 90 mcg/actuation (more content not included)... Normal [facility] HCV RNA ELMIRA+probe Qnon 05-04 HCV RNA ELMIRA+probe Ql Not detected Normal Not detected [facility] Comment on above: Order Comment: Speci men Type: SWAB Ordering Facility: [facility] Address: [address] [place] [address] Performed By: #### 3 6902-5, BVAMP #### [facility] CLIA [id number] [address] [place] [address] [place] HERPES SIMPLEX TYPE 1 AND 2 IGon 05-04-2024 HSV IGG 1 QUALITATIVE Negative Normal Negative [facility] Comment on above: Order Comment: Speci men Type: SWAB Ordering Facility: [facility] Address: [address] [place] [address] Result Comment: No e vidence of past history of HSV-1 infection. Negative result cannot exclude HSV-1 infection if the specimen collected 3-4 weeks after a primary episode of HSV-1 infection. Early institution of antiviral agents may delay or abrogate specific humoral response. Performed By: #### 3 6902-5, BVAMP #### [facility] CLIA [id number] [address] [place] [address] [place] HSV IGG 2 QUALITATIVE Positive Abnormal Negative [facility] Comment on above: Order Comment: Speci men Type: SWAB Ordering Facility: [facility] Address: [address] [place] [address] Result Comment: The result suggests recent or past infection with HSV-2. Performed By: #### 3 6902-5, BVAMP #### [facility] CLIA [id number] [address] [place] [address] [place] HIV 1+2 Ab IA Qlon 5 HIV 1 and 2 Ab IA.rapid Nom (S/P/Bld) Normal [facility] Comment on above: Order Comment: Speci men Type: BLOOD SPECIMENOrdering Facility: [facility] Address: [address] [place] [address] Result Comment: Test not indicated. Performed By: #### 3 1201-7, 09733-9 ####[facility] [id number] [place] [address] [place] HIV 1+2 Ab+HIV1 p24 Ag IA Ql Non-Reactive Normal Nonreactive [facility] Comment on above: Order Comment: Speci men Type: BLOOD SPECIMENOrdering Facility: [facility] Address: [address] [place] [address] Performed By: #### 3 1201-7, 06399-3 ####[facility] [id number] [place] [address] [place] HIV immunoassay testing algorithm interpretation (S/P/Bld) [Interp] Normal [facility] Comment on above: Order Comment: Speci men Type: BLOOD SPECIMENOrdering Facility: [facility] Address: [address] [place] [address] Result Comment: No e vidence of HIV-1 or HIV-2 infection. Should recent infection be suspected, repeat testing may be considered 2-3 weeks after this draw. [place] Rev. Code 3701.243(E): This information has been disclosed to you from confidential records protected from disclosure by state law. ???You shall make no further disclosure of this information without the specific, written, and informed release of the individual to whom it pertains or as otherwise permitted by state law. A general authorization for the release of medical or other information is not sufficient for the purpose of the release of HIV test results or diagnoses. Performed By: #### 3 1201-7, 23191-2 ####[facility] [id number] [place] [address] [place] Reagin and Treponema pallidu m IgG and IgM [Interp]on 05-04-2024 T. pallidum IgG+IgM IA Ql (S) Non-Reactive Normal Nonreactive [facility] Comment on above: Order Comment: Speci men Type: BLOOD SPECIMENOrdering Facility: [facility] Address: [address] [place] [address] Performed By: #### 3 1201-7, 12790-6 ####[facility] [id number] [place] [address] [place] Reagin+T pallidum IgG+IgM Se rPl-Impon 05-04-2024 Reagin and Treponema pallidum IgG and IgM [Interp] Cannot exclude recent Treponemal infection if specimen collected within 7-10 days after appearance of suspect lesions or 2-3 weeks after an exposure. Clinical correlation is required. Normal [facility] Comment on above: Order Comment: Speci men Type: BLOOD SPECIMENOrdering Facility: [facility] Address: [address] [place] [address] Performed By: #### 3 1201-7, 76865-3 ####[facility] [id number] [place] [address] [place] TRICHOMONAS VAGINALIS NAATon 05-04-2024 T. vaginalis DNA ELMIRA+probe Ql (Unsp spec) Not detected Normal Not detected [facility] Comment on above: Order Comment: Speci men Type: SWABOrdering Facility: [facility] Address: [address] [place] [address] Performed By: #### 3 6902-5, ABEBA ####[facility] [place] [id number] MAXINEAnnamaria [place] [id number] [place] CNOVon 12-29-2023 CNOV Office Visit (OBGYWM ) CHANA DE LA O ([id number]) 1 F Date Time Provider Department 12/29/23 11:30 AM CHANI HERNANDEZ OBGYWM During your visit today, we recorded the following information about you: Blood pressure Weight Last Period 120/70 83.9 kg 12/14/23 Chani Hernandez MD 12/29/2023 1:41 PM Signed Chana Starry is a 23 year old female who presents to discuss hysterectomy. HPI: She has had chronic pain for 2.5 years. She reports epigastric pain that radiates into her lower pelvis. She also has pain at times wrapping around into her back. The pain is constantly and daily. Hot showers and heating pads can improve the pain. She also smokes marijuana to control the pain and get going in the morning. She reports history of PCOS with irregular menstrual cycles. Not on hormonal contraception. Had tubal sterilization. Having nausea and vomiting daily. History of IBS. Sees Dr. Kowalski with GI at [facility]. H/o dermoid cysts on pelvic ultrasound. Had recent visit with Dr. Granados regarding the pelvic pain. Strongly desires a hysterectomy. 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 Unwrap and insert as directed albuterol HFA (PROVENTIL HFA, VENTOLIN HFA) 90 mcg/actuation inhaler Inhale 2 Puffs as instructed every 4 hours as needed for wheezing/shortness of breath. fluticasone (FLONASE) 50 mcg/actuation nasal spray Use 2 Sprays in each nostril once daily. Rinse mouth after use. cetirizine (ZYRTEC) 10 mg tablet Take 1 tablet by mouth once daily. ferrous sulfate 325 mg (65 mg iron) tablet Take by mouth. No current facility-administered medications for this visit. Allergies As of Date: 12/29/2023 Allergen Noted Reaction SEASONAL ALLERGIES 11/30/2017 Cough, Other: See Comments, and Itching Fully Assessed 12/29/2023 REVIEW OF SYSTEMS Abdomen: Diffuse abdominal pain with nausea, vomiting, diarrhea and constipation Bladder: No dysuria, gross hematuria, urinary frequency, urinary urgency, or incontinence. Expanded ROS: N/A Allergies and current medication updated:Yes SENSITIVE EXAM: Sensitive exam not performed. EXAM: BP 120/70 Wt 185 lb (83.9kg) LMP 12/14/2023 GENERAL: pleasant, female in no apparent distress HEENT: Normocephalic and atraumatic NECK: full range of motion DERMATOLOGY: Normal, without lesions, non-icteric, and non-hirsute BREAST: deferred CHEST: Normal inspiratory effort ABDOMEN: soft, no masses, and diffusely tender across entire abdomen, non distended, no rebounding, no guarding, no rigidity PELVIC: deferred BIMANUAL: deferred NEURO: exam grossly non-focal EXTREMITIES: normal ASSESSMENT AND PLAN: Assessment AND Plan Chronic pelvic pain in female Dermoid cyst Reviewed pelvic ultrasound findings and dermoid cysts. Questions answered. Patient comfortable appearing today and abdominal exam non acute. Was referred to pelvic pain clinic. Discussed importance of ovarian conservation at her age. Patient became argumentative as she strongly desires a hysterectomy. Discussed risks with a hysterectomy and that there is no guarantee it will improve her pain. Discussed an ovarian cystectomy with possible oophorectomy. Patient wants a hysterectomy with bilateral oophorectomy. Discussed option for second (more content not included)... Normal [facility] CH[facility] DE LA O ([id number]) 1 F Date Time Provider Department 12/26/23 CHANI HERNANDEZ OBGYWM During your visit today, we recorded the following information about you: Stephanie Boateng RN 12/26/2023 10:02 AM Signed Patient called asking to move up her appointment with due to her pain. Patient tearful on the phone. Reports her pain a 10 out of 10. Advised to go to ER for severity of her pain. Patient became upset, stating that the ER won't do anything. Advised that we don't have pain medication here to help relieve her pain. Moved up her appointment with SW from 12/29 to 12/28. She has not contacted pelvic pain clinic. STEVENSON Dickinson Sara, MD 12/26/2023 11:03 AM Signed Agree with ER visit for severe pain, and otherwise follow up this week in office thanks Allergies As of Date: 12/26/2023 Noted Allergy Reaction SEASONAL ALLERGIES 11/30/2017 3 - Cough 14 - Other: See Comments 9 - Itching Date Reviewed: 12/13/2023 Reviewed by: Donna Granados MD - Fully Assessed Reason for Visit: Pelvic Pain [282] Prescriptions as of 12/26/2023 - boric acid 600 mg vaginal suppository Use 1 Suppository vaginally once daily. Unwrap and insert as directed - albuterol HFA (PROVENTIL HFA, VENTOLIN HFA) 90 mcg/actuation inhaler Inhale 2 Puffs as instructed every 4 hours as needed for wheezing/shortness of breath. - fluticasone (FLONASE) 50 mcg/actuation nasal spray Use 2 Sprays in each nostril once daily. Rinse mouth after use. - cetirizine (ZYRTEC) 10 mg tablet Take 1 tablet by mouth once daily. - ferrous sulfate 325 mg (65 mg iron) tablet Take by mouth. Problem List As Of Date 12/26/2023 Noted Resolved with care elsewhere, antepar*11/15/2022 12/13/2023 Gastroparesis [K31.84] 11/15/2022 History of depression [Z86.59] [...] affectin*06/10/2021 12/28/2022 Attention deficit hyperactivity disorder (ADHD)*12/28/2022 Diagnosed: 12/28/2022 growth restriction [[id number]] 12/28/2022 12/28/2022 Diagnosed: 12/28/2022 Hyperemesis gravidarum [O21.0] 07/14/2022 12/28/2022 Diagnosed: 12/28/2022 Cannabis use disorder, mild, abuse [F12.10] 07/14/2022 Diagnosed: 12/28/2022 PCOS (polycystic ovarian syndrome) [E28.2] 08/24/2023 Dermoid cyst of ovary, right [D27.0] 08/25/2023 Encounter Status:Closed by ANGEL RIVERA on 12/26/23 Normal [facility] Emergency Department Summary on 12-23-2023 Emergency Department Summary [facility] Medical Records Department [address] [place] [address] Emergency Department Summary 12/23/23 MR#: [id number] Acct: [id number] Name: CHANA DE LA O Rep #: [id number] : 2000 23 From: [place] Elmore DO PCP: Care Physician,No Primary Status:DEP ER Location: ED HPI History of Present Illness Chief Complaint: Abd Pain Informant: patient Narrative Narrative: 23-year-old female presenting to the emergency room with pelvic pain. This is the same pain the patient has had for several years now. Patient has had multiple emergency department evaluations. She tells me that the dermoid cyst on her right ovary is now 5 cm. However on her CT of the abdomen pelvis that was performed about 2 weeks ago it measured 3.2 x 2.7 cm. This was read by radiology as stable. Patient states that her REPAIRER AND CHECKER that she is seeing into the [facility] has told her that whenever her pain gets bad she should come to the emergency room. She states that they are not writing her any medication for pain but she has an upcoming appointment to discuss possible surgery to remove the dermoid cyst. [facility] Medical History IBS (irritable bowel syndrome) Ovarian cyst Marijuana use Wears glasses Gastric reflux Shortness of breath on exertion History of IBS Vapes nicotine containing substance Gastroparesis Vaginal delivery ADHD IBS (irritable bowel syndrome) Encounter for induction of labor Rh negative state in antepartum period Depression affecting IUGR (intrauterine growth restriction) Low iron Marijuana use Syncope Upper abdominal pain Nausea vomiting Anemia Depression Anxiety Asthma Home Medications ???Medication ???Instructions ???Recorded ???Last Taken ???Type albuterol sulfate 90 mcg/actuation 2 inh inhalation PRN asthma #8.5 05/15/23 06/22/23 04:30 Rx aerosol inhaler grams Allergy/AdvReac Type Severity Reaction Status Date / Time No Known Allergies Allergy Verified 12/23/23 05:54 Family History Father Diabetes Mother Depression Grandmother Breast cancer Surgical History Tubal ligation status History of esophagogastroduodenos copy (EGD) History of cholecystectomy ( 09/2021) H/O dilation and curettage History of adenoidectomy Hx of tonsillectomy Social History household members: significant other Smoking Status: Current every day smoker tobacco type: e-cigarettes alcohol intake: never substance use type: marijuana ROS ROS ED Constitutional Constitutional ED: Denies chills, fever(s) or weight loss Eyes Eyes: Denies change in vision or diplopia ENT ENT ED: Denies ear pain, rhinorrhea or sore throat Cardiovascular Cardiovascular: Denies chest pain, orthopnea, palpitations or racing heartbeat Respiratory/Chest Respiratory/Chest: Denies cough, dyspnea or orthopnea Gastrointestinal Gastrointestinal: Reports abdominal pain, nausea, vomiting and other; Denies diarrhea Genitourinary Genitourinary ED: Denies dysuria, hematuria or urinary frequency Musculoskeletal Musculoskeletal: Reports back pain; Denies arthralgias or myalgias Integumentary Denies abscess or rash Neurologic Neurologic: Denies headache(s) or weakness Psychiatric Psychiatric: Denies anxiety, depression, suicidal ideation or suicidal thoughts Endocrine Endocrinology: Denies polydipsia, polyphagia or polyuria Allergic/Immunologic Allergic/Immunologic ED: Denies mouth swelling, tongue swelling or urticaria EXAM Physical Exam Const Vital Signs: 12/23/23 05:54 12/23/23 06:00 Temperature 98.1 F Temperature Source Oral Pulse Rate 18 L Respiratory Rate 18 Blood Pressure 140/128 H 115/70 Blood Pressure Mean 132 85 Pulse Ox 98 Oxygen Delivery Method Room Air Positive well nourished and well developed Constitutional Narrative: Very dramatic affect with the patient bent over at the waist holding onto the bed and shaking all over. General Appearance ED: well developed HEENT Reports normocephalic, head/scalp atraumatic and moist mucous membranes Eyes PERRL and EOMs intact bilaterally Neck no lymphadenopathy, supple and no JVD Resp normal respiratory effort and clear to auscultation bilaterally Cardio regular rate, regular rhythm and no murmurs GI Palpation: soft Back/Spine no CVA tenderness and normal ROM Extremity normal to inspection General Extremety ED: Negative for edema General Extremity: Negative for edema Neuro oriented x3 and CN's II-XII intact bilaterally Sensorium / Orientation: alert Motor Exam: strength 5/5 throughout Psych ment (more content not included)... Normal [facility] 12-15-2023 [facility] Telephone (OBGYWM) CHANA DE LA O ([id number]) 1 F Date Time Provider Department 12/15/23 CHANI HERNANDEZ OBGYWKandis During your visit today, we recorded the following information about you: Stephanie Boateng RN 12/15/2023 9:07 AM Signed Patient last seen in office on 12/12 for chronic pelvic pain. Called today to report that her pain caused her to vomit blood. Uterine pain rate of 6-7. Patient reports this is a manageable pain level for her. Typically, the pain is more intense. Patient has tried NSAID, Tylenol, heating pad and hot shower with little relief. Patient again said this is a manageable pain level for her. She has upcoming appointment with [facility] on 12/18 to discuss surgical options. Advised to go to ER if she is vomiting blood. Patient voiced agreement. STEVENSON Potts Sara, MD 12/15/2023 9:17 AM Addendum Agree with ER visit if vomiting blood. Reviewed chart and pt recently saw RR for evaluation and had pelvic US at that time Allergies As of Date: 12/15/2023 Noted Allergy Reaction SEASONAL ALLERGIES 11/30/2017 3 - Cough 14 - Other: See Comments 9 - Itching Date Reviewed: 12/13/2023 Reviewed by: Donna Granados MD - Fully Assessed Reason for Visit: Pelvic Pain [282] Prescriptions as of 12/15/2023 - methylPREDNISolone (MEDROL DOSE-PACK) 4 mg Dose-Pack Take as instructed per package. - boric acid 600 mg vaginal suppository Use 1 Suppository vaginally once daily. Unwrap and insert as directed - albuterol HFA (PROVENTIL HFA, VENTOLIN HFA) 90 mcg/actuation inhaler Inhale 2 Puffs as instructed every 4 hours as needed for wheezing/shortness of breath. - fluticasone (FLONASE) 50 mcg/actuation nasal spray Use 2 Sprays in each nostril once daily. Rinse mouth after use. - cetirizine (ZYRTEC) 10 mg tablet Take 1 tablet by mouth once daily. - ferrous sulfate 325 mg (65 mg iron) tablet Take by mouth. Problem List As Of Date 12/15/2023 Noted Resolved with care elsewhere, antepar*11/15/2022 12/13/2023 Gastroparesis [K31.84] 11/15/2022 History of depression [Z86.59] [...] affectin*06/10/2021 12/28/2022 Attention deficit hyperactivity disorder (ADHD)*12/28/2022 Diagnosed: 12/28/2022 growth restriction [[id number]] 12/28/2022 12/28/2022 Diagnosed: 12/28/2022 Hyperemesis gravidarum [O21.0] 07/14/2022 12/28/2022 Diagnosed: 12/28/2022 Cannabis use disorder, mild, abuse [F12.10] 07/14/2022 Diagnosed: 12/28/2022 PCOS (polycystic ovarian syndrome) [E28.2] 08/24/2023 Dermoid cyst of ovary, right [D27.0] 08/25/2023 Encounter Status:Closed by DONNY CORREIA on 12/15/[address] [facility] CNOVon 12-13-2023 CNOV Office Visit (UCWSTR ) CHANA DE LA O ([id number]) 1 F Date Time Provider Department 12/13/23 4:00 PM PATRICIA WHITEHEAD [facility] During your visit today, we recorded the following information about you: Temperature Pulse Respiration Blood pressure 99.1 degrees 102/minute 16/minute 142/90 Weight 87.4 kg Patricia Whitehead APRN.SENIOR OCCUPATIONAL THERAPIST 12/13/2023 4:06 PM Addendum (J02.9) Pharyngitis, unspecified etiology (primary encounter diagnosis) Plan: methylPREDNISolone (MEDROL DOSE-PACK) 4 mg Dose-Pack (J02.9) Sore throat Plan: STREP A MOLECULAR (POC) (R51.9) Headache, unspecified headache type Plan: methylPREDNISolone (MEDROL DOSE-PACK) 4 mg Dose-Pack Education on viral vs bacterial infections. Most viral infections will last 10 days, sometimes 14. It is possible to have back to back viral infections. An antibiotic will not treat a virus. Negative strep culture in office. -Covid/flu/rsv test for rule out, results in 24 hours, isolation in the interim. Result to mychart. -Steroids with food for headache. -Drink lots of fluids and get plenty of rest. Gargle with salt water 3 times/day. -OTC tylenol as directed on the bottle. -Make follow up with primary care for monitoring and resolution in symptoms. -Signs that warrant an ER evaluation: Sudden change/worsening in condition, lethargy, signs of dehydration, fever greater than 102 F that is not responding to Tylenol or ibuprofen (Motrin, Advil), drooling, difficulty swallowing, difficulty breathing, shortness of breath, chest pain, evidence of airway compromise (tripod position, neck extension, retractions), seizures, changes in mental status, or other concerns. Patricia Whitehead APRN.[facility] 12/13/2023 4:11 PM Signed This note was created using [employer]. Subjective Chana De La O is a 22 year old female. HPI by patient: Chana De La O is a 22 year old presenting to the office with the complaint of viral symptoms. Started approximately 2 days ago. Associated symptoms include sore throat, headache, and chills. Denies fever, cough, and congestion. Covid Immunization Dates Overdue - Covid-19 Vaccine ( season) Never done No completion, postpone, frequency change, or communication history exists for this topic. Sick contacts: none. Smoking history/second hand smoke: none. OTC not helping. No antibiotic use in the last 60 days. ALLERGIES Seasonal Allergies Cough, Other: See Comments, Itching Family History Reviewed Including Cardiac Diseases, Psychiatric Diseases, AND Substance Abuse Problem: No Known Problems Relation: Mother Age of Onset: (Not Specified) Problem: Diabetes Relation: Father Age of Onset: (Not Specified) Problem: No Known Problems Relation: Sister Age of Onset: (Not Specified) Problem: Breast Cancer Relation: Maternal Grandmother Age of Onset: (Not Specified) Problem: Obstructive Sleep Apnea Relation: Maternal Grandfather Age of Onset: (Not Specified) Problem: Diabetes Relation: Paternal Grandfather Age of Onset: (Not Specified) Problem: No Known Problems Relation: Half-brother Age of Onset: (Not Specified) Problem: No Known Problems Relation: Daughter Age of Onset: (Not Specified) Social History Tobacco Use Smoking status: Former Packs/day: 0.00 Types: Cigarettes Start date: 11/08/2014 Quit date: 11/08/2022 Years since quittin.0 Passive exposure: Past Smokeless tobacco: Never Tobacco comments: vape Vaping Use Vaping status: Some Days Substances: Nicotine Alcohol use: Never Drug use: Not Currently Types: Marijuana Active Ambulatory Problems Gastroparesis Date Noted: 11/15/2022 History of depression Date Noted: 11/15/2022 Engages in nicotine containing substance vaping Date Noted: 11/15/2022 History of marijuana use Date Noted: 11/15/2022 Rh negative state in antepartum period Date Noted: 11/22/2022 Vaginal bleeding Date Noted: 12/23/2022 Mild intermittent asthma Date Noted: 12/23/2022 Attention deficit hyperactivity disorder (ADHD) Date Noted: 12/28/2022 Cannabis use disorder, mild, abuse Date Noted: 07/14/2022 PCOS (polycystic ovarian syndrome) Date Noted: 08/24/2023 Dermoid cyst of ovary, right Date Noted: 08/25/2023 Resolved Ambulatory Problems with care elsewhere, antepartum Date Noted: 11/15/2022 Nausea and vomiting Date Noted: 06/18/2022 34 weeks gestation of Date Noted: 12/23/2022 Poor growth affecting management of mother in third trimester Date Noted: 12/23/2022 Depression affecting in third trimester, antepartum Date Noted: 12/24/2022 Placental abruption in third trimester Date Noted: 12/27/2022 Intrauterine growth restriction (IUGR) affecting care of mother, third trimester, single gestation Date Noted: 06/10/2021 growth restriction Date Noted: 12/28/2022 Hyperemesis gra (more content not included)... Normal [facility] CNOV Office Visit (OBGYWM ) CHANA DE LA O ([id number]) 1 F Date Time Provider Department 12/13/23 2:40 PM DONNA GRANADOS OBGYWM During your visit today, we recorded the following information about you: Blood pressure Weight Last Period 122/70 87.5 kg 11/17/23 Donna Granados MD 12/13/2023 6:40 PM Signed Chana Colleen De La O is a 22 year old female who presents for problem visit ultrasound follow up results, c/o lower abd pain rated 4 x 2.5 years. HPI: 22 YOF w/ h/o chronic pelvic pain. States it is getting worse. Today missed work. States she has it enough that she sometimes that she gets nauseated and vomits. Warm shower helps. States she has to smoke cannabis in am to be able to function b/c of pain. Has had multiple ED visits, US, CT scans. Has dermoid cyst that has increased in size slightly. States she has had pain since she had her first child. Completed child bearing and has had tubal. 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 Unwrap and insert as directed metroNIDAZOLE (FLAGYL) 500 mg tablet Take 1 tablet by mouth two times a day for 7 days. albuterol HFA (PROVENTIL HFA, VENTOLIN HFA) 90 mcg/actuation inhaler Inhale 2 Puffs as instructed every 4 hours as needed for wheezing/shortness of breath. benzonatate (TESSALON PERLES) 100 mg capsule Take 1-2 capsules by mouth three times a day as needed for cough. fluticasone (FLONASE) 50 mcg/actuation nasal spray Use 2 Sprays in each nostril once daily. Rinse mouth after use. cetirizine (ZYRTEC) 10 mg tablet Take 1 tablet by mouth once daily. ferrous sulfate 325 mg (65 mg iron) tablet Take by mouth. No current facility-administered medications for this visit. Allergies As of Date: 12/13/2023 Allergen Noted Reaction SEASONAL ALLERGIES 11/30/2017 Cough, Other: See Comments, and Itching Fully Assessed 12/08/2023 EXAM: LMP 08/21/2023 GENERAL: pleasant, female in no apparent distress. Sitting on chair comfortably when I arrive in room ASSESSMENT AND PLAN: Assessment AND Plan Chronic pelvic pain in female Orders: CONSULT TO UNPAID INTERN PELVIC PAIN; Future cannabis use, suspect that this may be contributing to cyclic vomiting. She denies this. d/w her removing dermoid cyst will not likely improve pain, has had GI workup. Recommend pelvic floor PT. F/u as scheduled to discuss further on 12/30/23. Reviwed 08/18 CT and 08/24 pelvic US, today's pelvic US pending but no acute pain to suspect torsion. Use heat/nsaids/tylenol MD Hansa Brown Trisha, RN 12/13/2023 3:04 PM Signed Call [phone] to schedule with pelvic pain clinic. Referring Provider: DONNA GRANADOS [[id number]] Allergies As of Date: 12/13/2023 Noted Allergy Reaction SEASONAL ALLERGIES 11/30/2017 3 - Cough 14 - Other: See Comments 9 - Itching Date Reviewed: 12/13/2023 Reviewed by: Donna Granados MD - Fully Assessed Reason for Visit: Problem Visit [Other] Primary Visit Diagnosis:Chronic pelvic pain in female [R10.2, G89.29] Order(s):CONSULT TO UNPAID INTERN PELVIC PAIN [[id number]] Order #: [id number]: 1 FUTURE Prescriptions as of 12/13/2023 - methylPREDNISolone (MEDROL DOSE-PACK) 4 mg Dose-Pack Take as instructed per package. - boric acid 600 mg vaginal suppository Use 1 Suppository (more content not included)... Normal [facility] CNPNon 12-13-2023 CNPN Telephone (OBGYWM) CHANA DE LA O ([id number]) 1 F Date Time Provider Department 12/13/23 ANSLEY IBRAHIM During your visit today, we recorded the following information about you: Angel Rivera RN 12/13/2023 10:02 AM Signed Patient calling in again today c/o pelvic pain (see 12/11 phone note too). She ended up going to [facility] ER yesterday. Rating pain 10/10 on pain scale today. Has been alternating tylenol/ibuprofen, but hasn't been working. Having n/v with it and was given rx Zofran in ER last night, but doesn't help much when pain is severe. No fever. Doesn't want to go back to ER. ER records in care everywhere. CT result copied below. No u/s was done. There are u/s openings today. Please advise. Angel Rivera RN IMPRESSION: 1. No acute abdominal or pelvic inflammatory process. 2. Normal appendix. No adenopathy. 3. Right ovarian dermoid lesion measuring 2.9 x 3.5 x 2.7 cm containing macroscopic fat, soft tissue and calcifications. Donna Granados MD 12/13/2023 12:28 PM Signed US today, rule out torsion. Put her in one of Dr. Mckeon open slots but have her come up and we will try to work her in early. MD Christian Brown Rebecca L, MD 12/13/2023 12:[address] Mckeon doesn't have openings anymore, one of us will work her in as able this afternoob. MD Stephanie Brown Annalee, LPN 12/13/2023 1:10 PM Signed Patient scheduled Allergies As of Date: 12/13/2023 Noted Allergy Reaction SEASONAL ALLERGIES 11/30/2017 3 - Cough 14 - Other: See Comments 9 - Itching Date Reviewed: 12/08/2023 Reviewed by: Svetlana Schaeffer APRN.SENIOR OCCUPATIONAL THERAPIST - Fully Assessed Reason for Visit: Pelvic Pain [282] Primary Visit Diagnosis:Pelvic pain in female [R10.2] Order(s):PELVIC US WHI [[id number]] Order #: [id number]: 1 FUTURE Prescriptions as of 12/13/2023 - boric acid 600 mg vaginal suppository Use 1 Suppository vaginally once daily. Unwrap and insert as directed - metroNIDAZOLE (FLAGYL) 500 mg tablet Take 1 tablet by mouth two times a day for 7 days. - albuterol HFA (PROVENTIL HFA, VENTOLIN HFA) 90 mcg/actuation inhaler Inhale 2 Puffs as instructed every 4 hours as needed for wheezing/shortness of breath. - benzonatate (TESSALON PERLES) 100 mg capsule Take 1-2 capsules by mouth three times a day as needed for cough. - fluticasone (FLONASE) 50 mcg/actuation nasal spray Use 2 Sprays in each nostril once daily. Rinse mouth after use. - cetirizine (ZYRTEC) 10 mg tablet Take 1 tablet by mouth once daily. - ferrous sulfate 325 mg (65 mg iron) tablet Take by mouth. Problem List As Of Date 12/13/2023 Noted Resolved with care elsewhere, antepar*11/15/2022 Gastroparesis [...] affectin*06/10/2021 12/28/2022 Attention deficit hyperactivity disorder (ADHD)*12/28/2022 Diagnosed: 12/28/2022 growth restriction [PBV2639] 12/28/2022 12/28/2022 Diagnosed: 12/28/2022 Hyperemesis gravidarum [O21.0] 07/14/2022 12/28/2022 Diagnosed: 12/28/2022 Cannabis use disorder, mild, abuse [F12.10] 07/14/2022 Diagnosed: 12/28/2022 PCOS (polycystic ovarian syndrome) [E28.2] 08/24/2023 Dermoid cyst of ovary, right [D27.0] 08/25/2023 Encounter Status:Closed by DONNA [facility]DOS on 12[facility]13[facility] JAYLYNCHANA Macias ([id number]) 1 F Date Time Provider Department 12/13/23 SVETLANA SCHAEFFER During your visit today, we recorded the following information about you: Davi Gomez MA 12/13/2023 9:38 AM Signed Received PA request for patients boric acid suppository, submitted PA on 12/08. PA was denied as it is a plan exclusion. DANII Glynn Tara, RN 12/14/2023 9:19 AM Signed Med fusion message sent to Pt. Kendra Palmer RN Allergies As of Date: 12/13/2023 Noted Allergy Reaction SEASONAL ALLERGIES 11/30/2017 3 - Cough 14 - Other: See Comments 9 - Itching Date Reviewed: 12/13/2023 Reviewed by: Donna Granados MD - Fully Assessed Reason for Visit: Insurance Authorization [[id number]] Prescriptions as of 12/14/2023 - methylPREDNISolone (MEDROL DOSE-PACK) 4 mg Dose-Pack Take as instructed per package. - boric acid 600 mg vaginal suppository Use 1 Suppository vaginally once daily. Unwrap and insert as directed - albuterol HFA (PROVENTIL HFA, VENTOLIN HFA) 90 mcg/actuation inhaler Inhale 2 Puffs as instructed every 4 hours as needed for wheezing/shortness of breath. - fluticasone (FLONASE) 50 mcg/actuation nasal spray Use 2 Sprays in each nostril once daily. Rinse mouth after use. - cetirizine (ZYRTEC) 10 mg tablet Take 1 tablet by mouth once daily. - ferrous sulfate 325 mg (65 mg iron) tablet Take by mouth. Problem List As Of Date 12/13/2023 Noted Resolved with care elsewhere, antepar*11/15/2022 12/13/2023 Gastroparesis [K31.84] 11/15/2022 History of depression [Z86.59] [...] affectin*06/10/2021 12/28/2022 Attention deficit hyperactivity disorder (ADHD)*12/28/2022 Diagnosed: 12/28/2022 growth restriction [[id number]] 12/28/2022 12/28/2022 Diagnosed: 12/28/2022 Hyperemesis gravidarum [O21.0] 07/14/2022 12/28/2022 Diagnosed: 12/28/2022 Cannabis use disorder, mild, abuse [F12.10] 07/14/2022 Diagnosed: 12/28/2022 PCOS (polycystic ovarian syndrome) [E28.2] 08/24/2023 Dermoid cyst of ovary, right [D27.0] 08/25/2023 Encounter Status:Closed by KENDRA PALMER on 12/14/[facility] CHANA DE LA O ([id number]) 1 F Date Time Provider Department 12/13/23 DONNA GRANADOS OBGYWKandis During your visit today, we recorded the following information about you: Hien Correa 12/13/2023 4:11 PM Signed Please contact patient to schedule Allergies As of Date: 12/13/2023 Noted Allergy Reaction SEASONAL ALLERGIES 11/30/2017 3 - Cough 14 - Other: See Comments 9 - Itching Date Reviewed: 12/13/2023 Reviewed by: Donna Granados MD - Fully Assessed Reason for Visit: Orders [681] Prescriptions as of 01/13/2024 - boric acid 600 mg vaginal suppository Use 1 Suppository vaginally once daily. Unwrap and insert as directed - albuterol HFA (PROVENTIL HFA, VENTOLIN HFA) 90 mcg/actuation inhaler Inhale 2 Puffs as instructed every 4 hours as needed for wheezing/shortness of breath. - fluticasone (FLONASE) 50 mcg/actuation nasal spray Use 2 Sprays in each nostril once daily. Rinse mouth after use. - cetirizine (ZYRTEC) 10 mg tablet Take 1 tablet by mouth once daily. - ferrous sulfate 325 mg (65 mg iron) tablet Take by mouth. Problem List As Of Date 12/13/2023 Noted Resolved with care elsewhere, antepar*11/15/2022 12/13/2023 Gastroparesis [K31.84] 11/15/2022 History of depression [Z86.59] [...] affectin*06/10/2021 12/28/2022 Attention deficit hyperactivity disorder (ADHD)*12/28/2022 Diagnosed: 12/28/2022 growth restriction [[id number]] 12/28/2022 12/28/2022 Diagnosed: 12/28/2022 Hyperemesis gravidarum [O21.0] 07/14/2022 12/28/2022 Diagnosed: 12/28/2022 Cannabis use disorder, mild, abuse [F12.10] 07/14/2022 Diagnosed: 12/28/2022 PCOS (polycystic ovarian syndrome) [E28.2] 08/24/2023 Dermoid cyst of ovary, right [D27.0] 08/25/2023 Encounter Status:Closed by HIEN CORREA on 01/13/24 Normal [facility] COVID AND INFLUENZA A/B AND RSV PCR, ROUTINEon 12-13-2023 SARS-CoV-2 (COVID-19) RNA ELMIRA+probe Ql (Unsp spec) SARS-COV-2 (AGENT OF COVID-19) RNA: Not detected INFLUENZA A RNA: Not detected INFLUENZA B RNA: Not detected RESPIRATORY SYNCYTIAL VIRUS (RSV) RNA: Not detected Normal [facility] Comment on above: Performed By: #### C VFLRS ####[facility] LABCLIA [id number] [place] [address] [place] STREP A MOLECULAR (POC)on Procedural Control Valid [facility] includes the [facility] Strep A (POCT) Negative Negative [facility] US Pelvison 12-13-2023 Indication Left-sided pelvic pain Impression The uterus is anteverted and measures 83 mm x 34 mm x 51 mm. The endometrial thickness is 4.1 mm. There is prominent pelvic vasculature with a left blood vessel 7.8 mm in diameter anterior to posterior. The right ovary measures 43 mm x 40 mm x 28 mm and contains two cysts. 1. Size 40 mm x 28 mm x 33 mm. Dermoid cyst with hyperechoic component with shadowing/lines and dots 2. Size 16 mm x 13 mm x 10 mm. Dermoid cyst with hyperechoic component with shadowing/lines and dots The left ovary measures 41 mm x 30 mm x 25 mm. There is free fluid visualized. Recommendations Prominent pelvic vasculature. Consider CT to further evaluate. Ovarian dermoids, follow up ultrasound is recommended in 12 months if no surgical intervention is planned. History Medical History Surgery: Tubal ligation Menstrual History LMP on 11/18/2023. Cycle: irregular cycle. Bleeding: normal Method Transabdominal, transvaginal, 3D ultrasound examination, Color Doppler examination. View: Adequate visualization Uterus Uterus: Visualized Uterus position: anteverted Description of uterine malformations: none Myometrium: normal Endometrium: normal Cervix details: normal Uterus length 83 mm Uterus width 51 mm Uterus height 34 mm Uterus Vol 75.0 cm Endometrial thickness, total 4.1 mm Fibroids: No fibroids identified Polyps: No polyps identified Right Ovary Rt ovary: Visualized Rt ovary D1 43 mm Rt ovary D2 40 mm Rt ovary D3 28 mm Rt ovary Vol 25.8 cm Rt ovarian cyst(s): Cysts identified Rt ovarian cyst D1 40 mm Rt ovarian cyst D2 28 mm Rt ovarian cyst D3 33 mm Rt ovarian cyst mean 33.7 mm Rt ovarian cyst vol 19.352 cm Rt ovarian cyst findings: Dermoid cyst with hyperechoic component with shadowing/lines and dots Rt ovarian cyst D1 16 mm Rt ovarian cyst D2 13 mm Rt ovarian cyst D3 10 mm Rt ovarian cyst mean 13.0 mm Rt ovarian cyst vol 1.089 cm Rt ovarian cyst findings: Dermoid cyst with hyperechoic component with shadowing/lines and dots Left Ovary Lt ovary: Visualized Lt ovary morphology: premenopausal polycystic Lt ovary D1 41 mm Lt ovary D2 30 mm Lt ovary D3 25 mm Lt ovary Vol 16.1 cm Lt ovarian cyst(s): No cysts identified Cul de Sac Visualized. free fluid visualized Largest pool 9.7 mm x 7.8 mm x 10.9 mm. Vol 0.432 ml adjacent to right ovary Performed By: Romina Stack RDMS Read By: Beryl Vega M.D. MATERNAL MEDICINE [facility] Radiology Study observation (narrative) [facility] Teodora 12-12-2023 PACO Telephone (OBGYWM) CHANA DE LA O ([id number]) 1 F Date Time Provider Department 12/12/23 CHANI HERNANDEZ OBSOPHIAWKandis During your visit today, we recorded the following information about you: Kendra Palmer RN 12/12/2023 9:34 AM Signed Pt called crying in stating she is having 10/10 bilateral lower abdominal pain that wraps around to her low back. States she has taken 100mg of Tylenol and it is not helping. Describes as tightness, stabbing, squeezing pain. Has ovarian cysts per pevic US 08/25/23. Asking if she can get sooner appt to discuss surgery. Appt changed to 12/30/23 11:10am with SW; however, Pt advised to go to ER with pain being so severe. Pt states she plans to and is waiting on someone to come watch her children. STEVENSON Mcnamara Sara, MD 12/12/2023 10:30 AM Signed Noted thanks. I can also see her today as soon as she can get in, but will have to see if US opening Kendra Palmer RN 12/12/2023 11:26 AM Signed US not in today. Called Pt-she is at [place] [facility] at this time. Kendra Palmer RN Allergies As of Date: 12/12/2023 Noted Allergy Reaction SEASONAL ALLERGIES 11/30/2017 3 - Cough 14 - Other: See Comments 9 - Itching Date Reviewed: 12/08/2023 Reviewed by: Svetlana Schaeffer APRN.SENIOR OCCUPATIONAL THERAPIST - Fully Assessed Prescriptions as of 12/12/2023 - boric acid 600 mg vaginal suppository Use 1 Suppository vaginally once daily. Unwrap and insert as directed - metroNIDAZOLE (FLAGYL) 500 mg tablet Take 1 tablet by mouth two times a day for 7 days. - albuterol HFA (PROVENTIL HFA, VENTOLIN HFA) 90 mcg/actuation inhaler Inhale 2 Puffs as instructed every 4 hours as needed for wheezing/shortness of breath. - benzonatate (TESSALON PERLES) 100 mg capsule Take 1-2 capsules by mouth three times a day as needed for cough. - fluticasone (FLONASE) 50 mcg/actuation nasal spray Use 2 Sprays in each nostril once daily. Rinse mouth after use. - cetirizine (ZYRTEC) 10 mg tablet Take 1 tablet by mouth once daily. - ferrous sulfate 325 mg (65 mg iron) tablet Take by mouth. Problem List As Of Date 12/12/2023 Noted Resolved with care elsewhere, antepar*11/15/2022 Gastroparesis [...] affectin*06/10/2021 12/28/2022 Attention deficit hyperactivity disorder (ADHD)*12/28/2022 Diagnosed: 12/28/2022 growth restriction [PCP1278] 12/28/2022 12/28/2022 Diagnosed: 12/28/2022 Hyperemesis gravidarum [O21.0] 07/14/2022 12/28/2022 Diagnosed: 12/28/2022 Cannabis use disorder, mild, abuse [F12.10] 07/14/2022 Diagnosed: 12/28/2022 PCOS (polycystic ovarian syndrome) [E28.2] 08/24/2023 Dermoid cyst of ovary, right [D27.0] 08/25/2023 Encounter Status:Closed by KENDRA PALMER on 12/12/23 Normal [facility] CT ABDOMEN PELVIS WITH IV CO NTRAST ONLYon 12-12-2023 CT ABDOMEN PELVIS WITH IV CONTRAST ONLY EXAMINATION: CT ABDOMEN PELVIS WITH IV CONTRAST ONLY HISTORY: ORDERING SYSTEM PROVIDED HISTORY: Abdominal pain, TECHNOLOGIST PROVIDED HISTORY: Illness/Other Reason for Exam: Abd pain Encounter Type: Initial Additional Signs and Symptoms: Patient states for the past 2.5 years I have been having pain in my uterus to where I am constantly throwing up all day everyday. My REPAIRER AND CHECKER has been tracking a cyst in my uterus. I think it is 4-5cm now. I just can't take the pain anymore. ORDERING SYSTEM PROVIDED DIAGNOSIS CODES: COMPARISON: Pelvic ultrasound 07/11/2022. TECHNIQUE: Helical imaging of the abdomen and pelvis following uneventful administration of Isovue-370 IV contrast. Multiplanar reformatted images are submitted. Dose reduction techniques were achieved by using: automated exposure control and/or adjustment of mA and/or kV according to patient size and/or use of iterative reconstruction technique. FINDINGS: ABDOMEN: LOWER CHEST: The imaged lung bases are clear. SOLID ORGANS: The spleen, adrenals, pancreas, gallbladder, biliary ducts are within normal limits. No biliary or pancreatic duct dilatation. Liver morphology, density, size are normal. Focal fatty infiltration within the left hepatic lobe segment IVb (image 24, series 4). No suspicious hepatic lesions. The kidneys are symmetric. No urinary tract calculi and no hydronephrosis. BOWEL: The stomach, proximal small bowel and imaged portions of the colon are normal course and caliber. No bowel wall thickening or pneumatosis. MESENTERY AND RETROPERITONEUM: The aorta and IVC are intact. Aortic caliber is normal. The IVC is adequately distended. No free fluid, fluid collection or adenopathy. OSSEOUS STRUCTURES: No acute osseous abnormality. ABDOMINAL WALL AND SOFT TISSUES: No acute abnormality. PELVIS: GENITOURINARY: The distal ureters, urinary bladder, vagina and imaged urethra are all within normal limits. The uterus and left ovary are within normal limits. Right ovarian dermoid lesion containing macroscopic fat calcification and soft tissue components (images 90 to 101, series 4) measures 2.9 x 3.5 x 2.7 cm. No distal urinary tract calculi. BOWEL: Distal small bowel, cecum, ascending and distal descending as well as rectosigmoid colon all intact. No bowel wall thickening. Appendix is normal. MESENTERY: No free fluid, fluid collection or adenopathy. VASCULATURE: Pelvic vasculature is patent. OSSEOUS STRUCTURES: No acute osseous abnormality. ABDOMINAL WALL AND SOFT TISSUES: No acute abnormality. No inguinal adenopathy. IMPRESSION: 1. No acute abdominal or pelvic inflammatory process. 2. Normal appendix. No adenopathy. 3. Right ovarian dermoid lesion measuring 2.9 x 3.5 x 2.7 cm containing macroscopic fat, soft tissue and calcifications. VKR/lab Workstation ID: [id number] Dictated by: CAMILO CAO on TueDec 12, 2023 11:54:49 AM EST Transcribed by: MITUL STERLING on TueDec 12, 2023 12:14:15 PM EST Finalized by: CAMILO CAO on TueDec 12, 2023 12:39:50 PM EST Normal [facility] Comment on above: Order Comment: Injur y/Trauma or Illness?:Illness/Other How long have you had these symptoms (acute/chronic)?:Acute Reason for exam?:abd pain Type of Exam?:Initial Additional signs and symptoms?:atient states for the past 2.5 years I have been having pain in my uterus to where I am constantly throwing up. All day. Everyday. My REPAIRER AND CHECKER has been tracking a cyst in my uterus. I think it is 4-5cm now. I just can't take the pain anymore. ED Prov Noteon 12-12-2023 ED Prov Note ED PROVIDER NOTE [facility] EMERGENCY DEPARTMENT NAME: Chana De La O AGE: 22 y.o. : 2000 VISIT DATE: 12/12/2023 CSN: [id number] PCP: No, Physician Chief Complaint Patient presents with Abdominal Pain Patient is a 22-year-old female with a past medical history of gastroparesis, endometriosis, asthma, anxiety and ADHD and PCOS presents today for concern of abdominal pain. Patient states the last 2 and half years she has had lower chronic abdominal pain and was told that she may have endometriosis and is currently in the process of getting worked up for endometriosis. Patient also states she has a right 5 cm ovarian cyst. Patient states for last few days she has had bilateral lower abdominal pain which is currently a 10 out of 10. Patient states she is currently getting treated for a yeast infection. Patient states she had her tubes tied and denies any concern for . Patient states her pain is similar in quality nature to her chronic abdominal pain that she has had for the last 2 and half years. Patient states she has had multiple GI appointments with colonoscopies and EGDs which did not demonstrate any evidence of acute pathology. Patient states 1 week before her menstrual cycle she gets severe abdominal pain and is in the process of getting evaluated for endometriosis. Past Medical History: Diagnosis Date ADHD Anxiety Asthma Endometriosis Gastroparesis PCOS (polycystic ovarian syndrome) Past Surgical History: Procedure Laterality Date CHOLECYSTECTOMY DILATION AND CURETTAGE (D AND C) TONSILLECTOMY History reviewed. No pertinent family history. Social History Socioeconomic History Marital status: Single Tobacco Use Smoking status: Never Smokeless tobacco: Never Vaping Use Vaping status: Every Day Substances: Nicotine Substance and Sexual Activity Alcohol use: Not Currently Drug use: Yes Types: Marijuana Comment: Daily Previous Medications Medication Sig metroNIDAZOLE (FLAGYL) 500 MG tablet Take 1 (one) tablet (500 mg total) by mouth 2 (two) times a day . ondansetron (ZOFRAN) 8 MG tablet Take by mouth every 8 (eight) hours as needed for nausea . boric acid 600 mg Supp Insert 600 mg into the vagina daily . [DISCONTINUED] dicyclomine (BENTYL) 10 MG capsule Take 1 (one) capsule (10 mg total) by mouth 4 (four) times a day before meals and nightly . [DISCONTINUED] HYDROcodone-acetaminop hen (NORCO) 5-325 mg per tablet Take 1 (one) tablet by mouth every 4 (four) hours as needed for pain . [DISCONTINUED] omeprazole (PRILOSEC) 40 MG capsule Take 1 (one) capsule (40 mg total) by mouth daily . [DISCONTINUED] vitamin with Ca-Iron-FA 27-1 mg Tab Take 1 (one) tablet by mouth daily . [DISCONTINUED] ursodioL (ACTIGALL) 250 mg tablet Take 1 (one) tablet (250 mg total) by mouth 3 (three) times a day . No Known Allergies Review of Systems Constitutional: Negative for chills and fever. Eyes: Negative for pain. Respiratory: Negative for cough, chest tightness and shortness of breath. Cardiovascular: Negative for chest pain and palpitations. Gastrointestinal: Positive for abdominal pain. Negative for nausea and vomiting. Genitourinary: Negative for flank pain. Musculoskeletal: Negative for arthralgias and myalgias. Pelvic pain Skin: Negative for rash. Neurological: Negative for dizziness, syncope, light-headedness and headaches. Psychiatric/Behavioral : Negative for agitation. All other systems reviewed and are negative. Patient Vitals for the past 24 hrs: BP Pulse Resp SpO2 12/12/23 1156 113/71 79 16 97 % Physical Exam Vitals and nursing note reviewed. Constitutional: Appearance: Normal appearance. HENT: Head: Normocephalic. Eyes: Pupils: Pupils are equal, round, and reactive to light. Cardiovascular: Rate and Rhythm: Normal rate and regular rhythm. Pulses: Normal pulses. Heart sounds: Normal heart sounds. Musculoskeletal: Cervical back: Normal range of motion. Pulmonary: Effort: Pulmonary effort is normal. Breath sounds: Normal breath sounds. Abdominal: Tenderness: There is abdominal tenderness in the right lower quadrant, suprapubic area and left lower quadrant. There is no right CVA tenderness, guarding or rebound. Negative signs include Rivera's sign, Rovsing's sign, McBurney's sign, psoas sign and obturator sign. Hernia: No hernia is present. Skin: General: Skin is warm. Capillary Refill: Capillary refill takes less than 2 seconds. Neurological: General: No focal deficit present. Mental Status: She is alert. Psychiatric: Mood and Affect: Mood normal. Laboratory & Radiographic Imaging (if done): Results for orders placed or performed during the hospital encounter of 12/12/23 POC CBC and Differential Result Value Ref Range WBC 8.29 4.50 - 11.00 K/mcL RBC 4.55 4.00 - 5.20 M/mcL Hemoglobin 13.5 12.0 - 16.0 g/dL Hematocrit 39.6 36.0 - 46. (more content not included)... Normal [facility] POC BASIC METABOLIC PANEL - Anabel 12-12-2023 Chloride [Moles/Vol] 107 mmol/L Normal 98-108 [facility] Comment on above: Order Comment: [facility] has implemented the eGFR calculation approach that does not have a coefficient for race that conforms to the NKF-ASN Task Force Recommendations. CO2 [Moles/Vol] 23 mmol/L Normal 21-32 [facility] Comment on above: Order Comment: [facility] has implemented the eGFR calculation approach that does not have a coefficient for race that conforms to the NKF-ASN Task Force Recommendations. Creatinine [Mass/Vol] 0.70 mg/dL Normal 0.40-1.10 [facility] Comment on above: Order Comment: [facility] has implemented the eGFR calculation approach that does not have a coefficient for race that conforms to the NKF-ASN Task Force Recommendations. Glucose [Mass/Vol] 92 mg/dL Normal 65-99 [facility] Comment on above: Order Comment: [facility] has implemented the eGFR calculation approach that does not have a coefficient for race that conforms to the NKF-ASN Task Force Recommendations. POC GFR 126 mL/min/1.73 m2 Normal >=60 [facility] Comment on above: Order Comment: [facility] has implemented the eGFR calculation approach that does not have a coefficient for race that conforms to the NKF-ASN Task Force Recommendations. Result Comment: Danae mated GFR was calculated using the 2020 CKD-EPI creatinine equation. POC IONIZED CALCIUM 4.7 mg/dL Normal 4.5-5.3 [facility] Comment on above: Order Comment: [facility] has implemented the eGFR calculation approach that does not have a coefficient for race that conforms to the NKF-ASN Task Force Recommendations. Potassium [Moles/Vol] 4.2 mmol/L Normal 3.5-5.1 [facility] Comment on above: Order Comment: [facility] has implemented the eGFR calculation approach that does not have a coefficient for race that conforms to the NKF-ASN Task Force Recommendations. Sodium [Moles/Vol] 140 mmol/L Normal 135-145 [facility] Comment on above: Order Comment: [facility] has implemented the eGFR calculation approach that does not have a coefficient for race that conforms to the NKF-ASN Task Force Recommendations. Urea nitrogen [Mass/Vol] 7 mg/dL Low 8-25 [facility] Comment on above: Order Comment: [facility] has implemented the eGFR calculation approach that does not have a coefficient for race that conforms to the NKF-ASN Task Force Recommendations. POC CBC AND DIFFERENTIALon 1 02-10-2023 BASOPHILS ABSOLUTE COUNT 0.02 K/mcL Normal 0.00-0.30 [facility] Basophils/100 WBC (Bld) 0.2 % Normal [facility] Eosinophils (Bld) [#/Vol] 0.11 10*3/uL Normal 0.00-0.50 [facility] Eosinophils/100 WBC (Bld) 1.3 % Normal [facility] Erythrocyte distribution width (RBC) [Ratio] 12.9 % Normal 11.6-14.8 [facility] Hematocrit (Bld) [Volume fraction] 39.6 % Normal 36.0-46.0 [facility] Hemoglobin (Bld) [Mass/Vol] 13.5 g/dL Normal 12.0-16.0 [facility] IG ABSOLUTE 0.01 K/mcL Normal 0.00-0.30 [facility] IG PERCENT 0.10 % Normal [facility] Comment on above: Result Comment: The IG parameter is the percentage of metamyelocytes, myelocytes and promyelocytes. An immature granulocyte count (IG) of 1% or more suggests the possibility of infection, an IG count of 3% is very likely related to an infection. Lymphocytes (Bld) [#/Vol] 1.92 10*3/uL Normal 0.90-4.00 [facility] Lymphocytes/100 WBC (Bld) 23.2 % Normal [facility] MCH (RBC) [Entitic mass] 29.7 pg Normal 26.0-34.0 [facility] MCV (RBC) [Entitic vol] 87.0 fL Normal 80.0-100.0 [facility] MEAN CORPUSCULAR HEMOGLOBIN CONC 34.1 g/dL Normal 31.0-37.0 [facility] Monocytes (Bld) [#/Vol] 0.62 10*3/uL Normal 0.30-0.90 [facility] Monocytes/100 WBC (Bld) 7.5 % Normal [facility] NEUTROPHILS ABSOLUTE COUNT 5.61 K/mcL Normal 1.70-7.00 [facility] Neutrophils/100 WBC (Bld) 67.7 % Normal [facility] Platelet mean volume (Bld) [Entitic vol] 10.7 fL Normal 9.4-12.4 [facility] Platelets (Bld) [#/Vol] 238 10*3/uL Normal 150-400 [facility] RBC (Bld) [#/Vol] 4.55 10*6/uL Normal 4.00-5.20 [facility] WBC (Bld) [#/Vol] 8.29 10*3/uL Normal 4.50-11.00 [facility] POC LIVER PANEL PLUS [facility] 12-12-2023 Albumin [Mass/Vol] 4.2 g/dL Normal 3.2-5.2 [facility] ALP [Catalytic activity/Vol] 60 U/L Normal 40-140 [facility] ALT [Catalytic activity/Vol] 11 U/L Normal 0-40 [facility] Amylase [Catalytic activity/Vol] 60 U/L Normal 25-115 [facility] Amylase [Catalytic activity/Vol] 14 U/L Normal 7-33 [facility] AST [Catalytic activity/Vol] 22 U/L Normal 0-45 [facility] Bilirubin [Mass/Vol] 0.7 mg/dL Normal 0.0-1.3 [facility] Protein [Mass/Vol] 7.9 g/dL Normal 6.0-8.0 [facility] POC , URINE - [facility] 12-12-2023 Beta HCG ( test) Ql (U) Negative Normal Negative [facility] Comment on above: Order Comment: Negat jean paul: Dilute urine specimens, as indicated by a low specific gravity (<1.010) may not contain representitive levels of hCG. If is still suspected, a serum test or repeat urine test using a first morning urine specimen should be considered. POC URINALYSIS DIPSTICK,AUTO - [facility] 12-12-2023 POC BILIRUBIN, URINE Small Abnormal Negative [facility] POC BLOOD, URINE Negative Normal Negative [facility] POC GLUCOSE, URINE Negative Normal Negative [facility] POC KETONES, URINE Trace Abnormal Negative [facility] POC LEUKOCYTE ESTERASE, URINE Negative Normal Negative [facility] POC NITRITE, URINE Negative Normal Negative [facility] POC PH, URINE 7.5 High 5.0-7.0 [facility] POC PROTEIN, URINE Negative Normal Negative [facility] POC SPECIFIC GRAVITY 1.020 Normal 1.005-1.025 [facility] POC UROBILINOGEN 2.0 mg/dL Abnormal < 2.0 [facility] CNPHillary 12-09-2023 SBN Telephone (OBGYWM) JAYLYNCHANA Macias ([id number]) 1 F Date Time Provider Department 12/09/23 SVETLANA SCHAEFFER During your visit today, we recorded the following information about you: Svetlana Schaeffer APRN.CNP 12/09/2023 3:44 PM Signed Please call patient Svetlana Schaeffer APRN.Angel Yancey RN 12/09/2023 4:30 PM Signed Called and notified patient. Angel Rivera RN Allergies As of Date: 12/09/2023 Noted Allergy Reaction SEASONAL ALLERGIES 11/30/2017 3 - Cough 14 - Other: See Comments 9 - Itching Date Reviewed: 12/08/2023 Reviewed by: Svetlana Schaeffer APRN.SENIOR OCCUPATIONAL THERAPIST - Fully Assessed Reason for Visit: Results [95] Primary Visit Diagnosis:Bacterial vaginosis [N76.0, B96.89] Other Visit Diagnosis:Infection due to Allie glabrata [B37.9] Order(s):boric acid 600 mg vaginal suppositoryUse 1 Suppository vaginally once daily. Unwrap and insert as directedDisp: 14 SuppositoryRfl: 0 metroNIDAZOLE (FLAGYL) 500 mg tabletTake 1 tablet by mouth two times a day for 7 days.Disp: 14 tabletRfl: 0 Prescriptions as of 12/09/2023 - boric acid 600 mg vaginal suppository Use 1 Suppository vaginally once daily. Unwrap and insert as directed - metroNIDAZOLE (FLAGYL) 500 mg tablet Take 1 tablet by mouth two times a day for 7 days. - albuterol HFA (PROVENTIL HFA, VENTOLIN HFA) 90 mcg/actuation inhaler Inhale 2 Puffs as instructed every 4 hours as needed for wheezing/shortness of breath. - benzonatate (TESSALON PERLES) 100 mg capsule Take 1-2 capsules by mouth three times a day as needed for cough. - fluticasone (FLONASE) 50 mcg/actuation nasal spray Use 2 Sprays in each nostril once daily. Rinse mouth after use. - cetirizine (ZYRTEC) 10 mg tablet Take 1 tablet by mouth once daily. - ferrous sulfate 325 mg (65 mg iron) tablet Take by mouth. Problem List As Of Date 12/09/2023 Noted Resolved with care elsewhere, antepar*11/15/2022 Gastroparesis [...] affectin*06/10/2021 12/28/2022 Attention deficit hyperactivity disorder (ADHD)*12/28/2022 Diagnosed: 12/28/2022 growth restriction [GRS7504] 12/28/2022 12/28/2022 Diagnosed: 12/28/2022 Hyperemesis gravidarum [O21.0] 07/14/2022 12/28/2022 Diagnosed: 12/28/2022 Cannabis use disorder, mild, abuse [F12.10] 07/14/2022 Diagnosed: 12/28/2022 PCOS (polycystic ovarian syndrome) [E28.2] 08/24/2023 Dermoid cyst of ovary, right [D27.0] 08/25/2023 Prescriptions ordered this encounter Disp Refills Start End BORIC ACID 600 MG VAGINAL SUPPOSITORY 14 S* 0 12/09/2023 Route: VAGINAL Sig: Use 1 Suppository vaginally once daily. Unwrap and insert as directed METRONIDAZOLE 500 MG TABLET 14 t* 0 12/09/2023 12/16/2023 Route: ORAL Sig: Take 1 tablet by mouth two times a day for 7 days. Encounter Status:Closed by ANGEL RIVERA on 12/09/23 Normal [facility] BACTERIAL VAGINOSIS NAATon 1 Lactobacillus crispatus+gasseri+dior senii + Gardnerella vaginalis + Atopobium vaginae rRNA ELMIRA+probe Ql (Vag fld) Positive Abnormal Negative for bacterial vaginosis [facility] Comment on above: Order Comment: Speci men Type: SWABOrdering Facility: [facility] Address: [address] [place] [address] Performed By: #### B VAMP, [id number] ####[facility] LABCLIA [id number] [place] [address] [place] C. trachomatis+N. gonorrhoea e DNA ELMIRA+probe Ql (Unsp spec)on 12-08-2023 C. trachomatis rRNA ELMIRA+probe Ql (Unsp spec) Negative Normal Negative for Chlamydia trachomatis by amplificaton [facility] Comment on above: Order Comment: Speci men Type: SWABOrdering Facility: [facility] Address: [address] [place] [address] Performed By: #### B VAMP, 89589-3 ####[facility] LABCLIA [id number] [place] [address] [place] N. gonorrhoeae rRNA ELMIRA+probe Ql (Unsp spec) Negative Normal Negative for Neisseria gonorrhoeae by amplification [facility] Comment on above: Order Comment: Speci men Type: SWABOrdering Facility: [facility] Address: [address] [place] [address] Performed By: #### B VAMP, 84502-2 ####[facility] LABCLIA [id number] [place] [address] [place] ALLIE/TRICHOMONAS NAATon 1 C. glabrata RNA ELMIRA+probe Ql (Vag fld) Positive Abnormal Negative for Allie glabrata [facility] Comment on above: Order Comment: Speci men Type: SWAB Ordering Facility: [facility] Address: [address] [place] [address] Performed By: #### 3 6902-5, BVAMP #### [facility] CLIA [id number] [address] [place] [address] [place] Allie sp DNA ELMIRA+probe Ql (Vag fld) Negative Normal Negative for Allie species [facility] Comment on above: Order Comment: Speci men Type: SWAB Ordering Facility: [facility] Address: [address] [place] [address] Performed By: #### 3 6902-5, BVAMP #### [facility] CLIA [id number] [address] [place] [address] [place] T. vaginalis DNA ELMIRA+probe Ql (Unsp spec) Negative Normal Negative for Trichomonas vaginalis by amplification [facility] Comment on above: Order Comment: Speci men Type: SWAB Ordering Facility: [facility] Address: [address] [place] [address] Performed By: #### 3 6902-5, BVAMP #### [facility] CLIA [id number] [address] [place] [address] [place] CNOVon 12-08-2023 CNOV Office Visit (OBGYWM ) CHANA DE LA O ([id number]) 1 F Date Time Provider Department 12/08/23 2:15 PM SVETLANA SCHAEFFER During your visit today, we recorded the following information about you: Blood pressure Weight 120/60 89.8 kg Svetlana Schaeffer APRN.SENIOR OCCUPATIONAL THERAPIST 12/08/2023 2:34 PM Signed Chana De La O is a 22 year old female who presents for problem visit to follow up from her ER visit. HPI: Chana went to ER on 12/05 for blood in the urine. She was diagnosed with UTI and treated with Keflex. She had a CT scan 12/05 that showed Symmetric nephrograms. No hydronephrosis. The ureters are normal in course and caliber. The urinary bladder is under distended. The uterus is within normal limits. Right ovarian lesion which appears to contain fat, soft tissue, and calcified material measures 3.5 cm, previously 2.2 cm. Probable corpus luteum in the left ovary. Had ultrasound 12/06/23 that showed: Predominately echogenic right ovarian echogenic lesion with some areas of small cysts measures 4.4x3.6.4.1 cm and correlates with a dermoid as seen on a prior CT exam. There is an an avascular crenulated 3.2 cm left ovarian structure which contains echogenic debris. Appropriate Doppler flow is appreciated to both ovaries. Dermoid cyst noted on ultrasound/CT back in August. She is having generalized pelvic pain. Denies concerns for STDs, but would like screened. Reports continued nausea, was referred to GI in August. Has seen Dr. Kowalski. Does use marijuana and was previously counseled that overuse can cause N/V and abdominal pain. 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 History Comments: Sexual Activity: Yes; No partner [...] Social History Tobacco Use Smoking status: Former Current packs/day: 0.00 Types: Cigarettes Start date: 11/08/2014 Quit date: 11/08/2022 Years since quittin.0 Passive exposure: Past Smokeless tobacco: Never Tobacco comments: vape Vaping Use Vaping status: Some Days Substances: Nicotine Substance Use Topics Alcohol use: Never Drug use: Not Currently Types: Marijuana Current Outpatient Medications Medication Sig albuterol HFA (PROVENTIL HFA, VENTOLIN HFA) 90 mcg/actuation inhaler Inhale 2 Puffs as instructed every 4 hours as needed for wheezing/shortness of breath. benzonatate (TESSALON PERLES) 100 mg capsule Take 1-2 capsules by mouth three times a day as needed for cough. fluticasone (FLONASE) 50 mcg/actuation nasal spray Use 2 Sprays in each nostril once daily. Rinse mouth after use. cetirizine (ZYRTEC) 10 mg tablet Take 1 tablet by mouth once daily. ferrous sulfate 325 mg (65 mg iron) tablet Take by mouth. No current facility-administered medications for this visit. Allergies As of Date: 12/08/2023 Allergen Noted Reaction SEASONAL ALLERGIES 11/30/2017 Cough, Other: See Comments, and Itching Fully Assessed 11/18/2023 REVIEW OF SYSTEMS Abdomen: No bloating, early satiety, indigestion, or increased flatulence. No diarrhea, or constipation. + nausea/vomiting Expanded ROS: UNPAID INTERN: + pelvic pain Allergies and current medication updated:Yes SENSITIVE EXAM: The sensitive examination was discussed with the Patient or Patient's Authorized Rn Diabetes. As applicable, any other physician, advance practice provider, medical student, or other health professional student that will be observing or involved in the sensitive examination for educational or training purposes was discussed with the Patient or Authorized Rn Diabetes. The Patient or Authorized Rn Diabetes has agreed to proceed with the sensitive examination. (Sensitive examination includes inspection and/or palpation of the breasts, pelvis, prostate and anorectal regions). EXAM: BP 120/60 Wt 198 lb (89.8kg) LMP 08/21/2023 GENERAL: pleasant, female in no apparent distress HEENT: Normo (more content not included)... [facility], URINE (POC)on 2023 BILIRUBIN UA (POCT) Negative Negative [facility] CLARITY UA (POCT) Clear [facility] COLOR UA (POCT) Yellow [facility] GLUCOSE UA (POCT) Negative Negative mg/dL [facility] Hemoglobin Ql (U) Negative Negative [facility] KETONE UA (POCT) Negative Negative mg/dL [facility] LEUKOC[facility] ([facility]CT) Negative [facility] N[facility]) Negative Negative [facility] PH UA (POCT) 7.0 4.5 - 8.0 [facility] Protein Ql (U) Negative Negative mg/dL [facility] SPECIFIC GRAVITY UA (POCT) 1.020 1.005 - 1.030 [facility] UROBILINOGEN UA (POCT) 0.2 Normal E.U./dL [facility] Location:[facility], [address], [place], [place], [id number] [place] [address] POINT OF CARE [facility] Urine Cultureon 12-07-2023 URC Mixed Gram Positive Organisms [place] Count 1000-10,000 MIXC Mixed contaminants. Submit a new specimen if indicated. Normal [facility] Comment on above: Performed By: #### M 100.2200 ####[facility] [id number] [place], [place], [id number] .Auto Diffon 12-06-2023 Basophil, Absolute 0.1 10 3/mcL Normal 0.0-0.2 [facility] Comment on above: Performed By: #### L IP, ADIFF, CMP, GFR, MDW, ANEU, CBC #### [address] [address] Basophils/100 WBC (Bld) 0.7 % Normal 0.0-2.5 [facility] Comment on above: Performed By: #### L IP, ADIFF, CMP, GFR, MDW, ANEU, CBC #### [address] [place], [place] [address] Eosinophil, Absolute 0.1 10 3/mcL Normal 0.0-0.7 [facility] Comment on above: Performed By: #### L IP, ADIFF, CMP, GFR, MDW, ANEU, CBC #### [address] [address] Eosinophils/100 WBC (Bld) 0.8 % Normal 0.0-7.0 [facility] Comment on above: Performed By: #### L IP, ADIFF, CMP, GFR, MDW, ANEU, CBC #### [address] [address] Lymphocyte, Absolute 2.3 10 3/mcL Normal 0.9-4.3 [facility] Comment on above: Performed By: #### L IP, ADIFF, CMP, GFR, MDW, ANEU, CBC #### [address] [address] Lymphocytes/100 WBC (Bld) 22.8 % Normal 20.0-40.0 [facility] Comment on above: Performed By: #### L IP, ADIFF, CMP, GFR, MDW, ANEU, CBC #### [address] [address] Monocyte, Absolute 0.6 10 3/mcL Normal 0.1-1.4 [facility] Comment on above: Performed By: #### L IP, ADIFF, CMP, GFR, MDW, ANEU, CBC #### [address] [address] Monocytes/100 WBC (Bld) 5.9 % Normal 2.0-13.0 [facility] Comment on above: Performed By: #### L IP, ADIFF, CMP, GFR, MDW, ANEU, CBC #### [address] [address] Neutrophils/100 WBC (Bld) 69.8 % Normal 50.0-75.0 [facility] Comment on above: Performed By: #### L IP, ADIFF, CMP, GFR, MDW, ANEU, CBC #### [address] [address] .GFRon 12-06-2023 GFR 97 ml/min/1.73sqm Normal [facility] Comment on above: Result Comment: GFR Population mean for , Non- Americans Ages 20-29 = 116 mL/min/1.73 sq.m. Ages 30-39 = 107 mL/min/1.73 sq.m. Ages 40-49 = 99 mL/min/1.73 sq.m. Ages 50-59 = 93 mL/min/1.73 sq.m. Ages 60-69 = 85 mL/min/1.73 sq.m. Ages 70+ = 75 mL/min/1.73 sq.m. Chronic Kidney Disease: Less than 60 mL/min/1.73 square meters End Stage Renal Disease: Less than 15 mL/min/1.73 square meters Performed By: #### L IP, ADIFF, CMP, GFR, MDW, ANEU, CBC ####[address] [place], [place] [address] GFR Non- 80 ml/min/1.73sqm Normal [facility] Comment on above: Result Comment: GFR Population mean for , Non- Americans Ages 20-29 = 116 mL/min/1.73 sq.m. Ages 30-39 = 107 mL/min/1.73 sq.m. Ages 40-49 = 99 mL/min/1.73 sq.m. Ages 50-59 = 93 mL/min/1.73 sq.m. Ages 60-69 = 85 mL/min/1.73 sq.m. Ages 70+ = 75 mL/min/1.73 sq.m. Chronic Kidney Disease: Less than 60 mL/min/1.73 square meters End Stage Renal Disease: Less than 15 mL/min/1.73 square meters Performed By: #### L IP, ADIFF, CMP, GFR, MDW, ANEU, CBC ####[address] [place], [place] [address] .MDWon 12-06-2023 Monocyte Distribution Width 18.48 Normal 0.00-20.00 [facility] Comment on above: Result Comment: For ED adult patients suspected of sepsis, MDW<=20.0 does not rule out sepsis or risk of sepsis Performed By: #### L IP, ADIFF, CMP, GFR, MDW, ANEU, CBC #### [address] [place], [place] [address] .NEUABSon 10-29-2024 Neutrophil, Absolute 6.9 10 3/mcL Normal 2.3-8.1 [facility] Comment on above: Performed By: #### L IP, JAYSHREE, CMP, GFR, MDW, ANEU, CBC #### [place] [address] .Urinalysis Microscopic (AO) on 12-06-2023 UA Bacteria Trace Abnormal [facility] Comment on above: Performed By: #### U AMICAO PREGU, UA #### [place] [address] UA RBC LOADED Abnormal None Seen [facility] Comment on above: Performed By: #### U AMICAO PREGU, UA #### [place] [address] UA Squam Epithelial 5-10 Abnormal None Seen [facility] Comment on above: Performed By: #### U AMICAO PREGU, UA #### [place] [address] UA WBC 0-5 Abnormal None Seen [facility] Comment on above: Performed By: #### U AMICAO, PREGU, UA #### [place] [address] CBCon 12-06-2023 Erythrocyte distribution width (RBC) [Ratio] 13.7 % Normal 11.5-15.5 [facility] Comment on above: Performed By: #### L IP, JAYSHREE, CMP, GFR, MDW, ANEU, CBC #### [place] [address] Hematocrit (Bld) [Volume fraction] 40.0 % Normal 34.0-46.0 [facility] Comment on above: Performed By: #### L IP, ADETHEL, CMP, GFR, MDW, ANEU, CBC #### [place] [address] Hgb 13.7 G/dL Normal 12.0-16.0 [facility] Comment on above: Performed By: #### L IP, ADIFF, CMP, GFR, MDW, ANEU, CBC #### [address] [address] MCH (RBC) [Entitic mass] 29.7 pg Normal 27.0-33.0 [facility] Comment on above: Performed By: #### L IP, ADIFF, CMP, GFR, MDW, ANEU, CBC #### [address] [address] MCHC 34.3 G/dL Normal 32.0-36.0 [facility] Comment on above: Performed By: #### L IP, ADIFF, CMP, GFR, MDW, ANEU, CBC #### [address] [address] MCV (RBC) [Entitic vol] 86.5 fL Normal 80.0-99.0 [facility] Comment on above: Performed By: #### L IP, ADIFF, CMP, GFR, MDW, ANEU, CBC #### [address] [address] Platelet 249 10 3/mcL Normal 150-450 [facility] Comment on above: Performed By: #### L IP, ADIFF, CMP, GFR, MDW, ANEU, CBC #### [address] [address] Platelet mean volume (Bld) [Entitic vol] 8.2 fL Normal 6.6-10.5 [facility] Comment on above: Performed By: #### L IP, ADIFF, CMP, GFR, MDW, ANEU, CBC #### [address] [address] RBC 4.62 10 6/mcL Normal 4.10-5.30 [facility] Comment on above: Performed By: #### L IP, ADIFF, CMP, GFR, MDW, ANEU, CBC #### [address] [address] WBC 9.9 10 3/mcL Normal 4.5-10.8 [facility] Comment on above: Performed By: #### L IP, ADIFF, CMP, GFR, MDW, ANEU, CBC #### [address] [address] CMPon 12-06-2023 ALT [Catalytic activity/Vol] 18 U/L Normal 14-59 [facility] Comment on above: Performed By: #### L IP, ADIFF, CMP, GFR, MDW, ANEU, CBC ####[place] [address] [place] [id number] AST [Catalytic activity/Vol] 11 U/L Normal 10-40 [facility] Comment on above: Performed By: #### L IP, ADIFF, CMP, GFR, MDW, ANEU, CBC ####[place] [address] Albumin Level 4.0 G/dL Normal 3.5-5.0 [facility] Comment on above: Performed By: #### L IP, ADIFF, CMP, GFR, MDW, ANEU, CBC ####[place] [address] Albumin/Globulin [Mass ratio] 1.2 {ratio} Normal 1.1-2.5 [facility] Comment on above: Performed By: #### L IP, ADIFF, CMP, GFR, MDW, ANEU, CBC ####[place] [id number] ALP [Catalytic activity/Vol] 69 U/L Normal 40-135 [facility] Comment on above: Performed By: #### L IP, ADIFF, CMP, GFR, MDW, ANEU, CBC ####[place] [address] [place] [id number] Bili Total 0.5 mg/dL Normal 0.2-1.0 [facility] Comment on above: Result Comment: Use of this assay is not recommended for patients undergoing treatment with eltrombopag due to the potential for falsely elevated results. Performed By: #### L IP, ADIFF, CMP, GFR, MDW, ANEU, CBC ####[place] [address] [place] [address] BUN/Creatinine Ratio 12 ratio Normal 7-27 [facility] Comment on above: Performed By: #### L IP, ADIFF, CMP, GFR, MDW, ANEU, CBC ####[id number] [place], [place] [address] Calcium [Mass/Vol] 8.9 mg/dL Normal 8.4-10.2 [facility] Comment on above: Performed By: #### L IP, ADIFF, CMP, GFR, MDW, ANEU, CBC ####[address] [place], [place] [address] Chloride [Moles/Vol] 101 mmol/L Normal 98-107 [facility] Comment on above: Performed By: #### L IP, ADIFF, CMP, GFR, MDW, ANEU, CBC ####[address] [place], [place] [address] CO2 [Moles/Vol] 28 mmol/L Normal 22-29 [facility] Comment on above: Performed By: #### L IP, ADIFF, CMP, GFR, MDW, ANEU, CBC ####[address] [address] [place], [place] [address] Creatinine [Mass/Vol] 0.88 mg/dL Normal 0.55-1.02 [facility] Comment on above: Result Comment: Test ing performed on Siemens Dimension EXL analyzer using a modified kinetic Shayy technique. Performed By: #### L IP, ADIFF, CMP, GFR, MDW, ANEU, CBC ####[id number] [place], [place] [address] Electrolyte Balance 9.0 mEq/L Normal 4.0-15.0 [facility] Comment on above: Performed By: #### L IP, ADIFF, CMP, GFR, MDW, ANEU, CBC ####[address] [place], [place] [address] Globulin 3.4 G/dL Normal [facility] Comment on above: Performed By: #### L IP, ADIFF, CMP, GFR, MDW, ANEU, CBC ####[address] [address] Glucose [Mass/Vol] 98 mg/dL Normal 70-105 [facility] Comment on above: Performed By: #### L IP, ADIFF, CMP, GFR, MDW, ANEU, CBC ####[place] [place], [place] [address] Potassium [Moles/Vol] 3.4 mmol/L Low 3.5-5.1 [facility] Comment on above: Performed By: #### L IP, ADIFF, CMP, GFR, MDW, ANEU, CBC ####[place] [place], [place] [address] Sodium [Moles/Vol] 138 mmol/L Normal 136-145 [facility] Comment on above: Performed By: #### L IP, ADIFF, CMP, GFR, MDW, ANEU, CBC ####[address] [address] [place], [place] [address] Total Protein 7.4 G/dL Normal 6.4-8.2 [facility] Comment on above: Performed By: #### L IP, ADIFF, CMP, GFR, MDW, ANEU, CBC ####[place] [place], [place] [address] Urea nitrogen [Mass/Vol] 11 mg/dL Normal 7-18 [facility] Comment on above: Performed By: #### L IP, ADIFF, CMP, GFR, MDW, ANEU, CBC ####[address] [address] [address] ABD/PELVIS W/ IV CONTRAST ONLYon 12-06-2023 CT ABD/PELVIS W/ IV CONTRAST ONLY ORIGINAL EXAMINATION: CT OF THE ABDOMEN AND PELVIS WITH [id number]/29/2024 6:08 am TECHNIQUE: CT of the abdomen and pelvis was performed with the administration of intravenous contrast. Multiplanar reformatted images are provided for review. Automated exposure control, iterative reconstruction, and/or weight based adjustment of the mA/kV was utilized to reduce the radiation dose to as low as reasonably achievable. COMPARISON: CT abdomen pelvis 12/25/2021. HISTORY: ORDERING SYSTEM PROVIDED HISTORY: Reason for Exam: abdominal pain, FINDINGS: The included lung bases are clear. There is no visible pleural or pericardial effusion. The heart is normal in size. Hypoattenuation adjacent to the falciform ligament likely represents fatty infiltration. The liver is otherwise normal in contour and attenuation. No intrahepatic biliary ductal dilatation. Cholecystectomy. The spleen, pancreas, and adrenal glands are within normal limits. Symmetric nephrograms. No hydronephrosis. The ureters are normal in course and caliber. The urinary bladder is under distended. The uterus is within normal limits. Right ovarian lesion which appears to contain fat, soft tissue, and calcified material measures 3.5 cm, previously 2.2 cm. Probable corpus luteum in the left ovary. The large and small bowel demonstrate no obstruction. The appendix is not visualized. There is no pericecal inflammation. No free intraperitoneal fluid or gas is identified. The aorta is normal in caliber. No abdominopelvic lymphadenopathy. There is no acute fracture or aggressive osseous lesion. No acute soft tissue abnormality. IMPRESSION: No acute abdominopelvic process. Suspected dermoid in the right ovary has mildly enlarged when compared to exam CT 12/25/2021. I have personally reviewed the images of this examination and agree with the resident's findings and interpretation. Interpreted by: Henrique Vazquez MD Preliminary Report By: Em Aragon Electronically signed By Henrique Vazquez MD Dictated Date: 12/06/2023 6:18:04 AM Prelim Date: 12/06/2023 6:26:30 AM Sign Date: 12/06/2023 7:44:16 AM Ordering Provider: BRISEYDA Coates [facility] LABORATORYOrdered By: SYSTEM SYSTEM on 12-06-2023 Albumin BCP dye [Mass/Vol] 4.0 G/dL Normal 3.5 - 5.0 G/dL AO ADM SS Albumin/Globulin [Mass ratio] 1.2 {ratio} Normal 1.1 - 2.5 ratio AO ADM SS ALP [Catalytic activity/Vol] 69 U/L Normal 40 - 135 U/L AO ADM SS ALT With P-5'-P [Catalytic activity/Vol] 18 U/L Normal 14 - 59 U/L AO ADM SS AST With P-5'-P [Catalytic activity/Vol] 11 U/L Normal 10 - 40 U/L AO ADM SS Basophils (Bld) [#/Vol] 0.1 103/mcL Normal 0.0 - 0.2 10^3/mcL AO Workflow SS Basophils/100 WBC (Bld) 0.7 % Normal 0.0 - 2.5 % AO Workflow SS Bilirubin [Mass/Vol] 0.5 mg/dL Normal 0.2 - 1 .0 mg/dL AO ADM SS Comment on above: Interpretive Data: U se of this assay is not recommended for patients undergoing treatment with eltrombopag due to the potential for falsely elevated results. Calcium [Mass/Vol] 8.9 mg/dL Normal 8.4 - 10. 2 mg/dL AO ADM SS Chloride [Moles/Vol] 101 mmol/L Normal 98 - 10 7 mmol/L AO ADM SS CO2 [Moles/Vol] 28 mmol/L Normal 22 - 29 mmol/L AO AD M SS Creatinine [Mass/Vol] 0.88 mg/dL Normal 0.55 - 1.02 mg/dL AO ADM SS Comment on above: Interpretive Data: T esting performed on Siemens Dimension EXL analyzer using a modified kinetic Shayy technique. Electrolyte Balance 9.0 mEq/L Normal 4.0 - 15 .0 mEq/L AO ADM SS Eosinophil, Absolute 0.1 103/mcL Normal 0.0 - 0 .7 10^3/mcL AO Workflow SS Eosinophils/100 WBC (Bld) 0.8 % Normal 0.0 - 7.0 % AO Workflow SS Erythrocyte distribution width (RBC) [Ratio] 13.7 % Normal 11.5 - 15.5 % AO Workflow SS GFR/1.73 sq M.predicted among blacks MDRD (S/P/Bld) [Vol rate/Area] 97 ml/min/1.73sqm Invalid Interpretation Code AO Chemistry S Comment on above: Interpretive Data: GFR Population mean for , Non- Americans Ages 20-29 = 116 mL/min/1.73 sq.m. Ages 30-39 = 107 mL/min/1.73 sq.m. Ages 40-49 = 99 mL/min/1.73 sq.m. Ages 50-59 = 93 mL/min/1.73 sq.m. Ages 60-69 = 85 mL/min/1.73 sq.m. Ages 70+ = 75 mL/min/1.73 sq.m. Chronic Kidney Disease: Less than 60 mL/min/1.73 square meters End Stage Renal Disease: Less than 15 mL/min/1.73 square meters GFR/1.73 sq M.predicted among non-blacks MDRD (S/P/Bld) [Vol rate/Area] 80 ml/min/1.73sqm Invalid Interpretation Code AO Chemistry S Comment on above: Interpretive Data: GFR Population mean for , Non- Americans Ages 20-29 = 116 mL/min/1.73 sq.m. Ages 30-39 = 107 mL/min/1.73 sq.m. Ages 40-49 = 99 mL/min/1.73 sq.m. Ages 50-59 = 93 mL/min/1.73 sq.m. Ages 60-69 = 85 mL/min/1.73 sq.m. Ages 70+ = 75 mL/min/1.73 sq.m. Chronic Kidney Disease: Less than 60 mL/min/1.73 square meters End Stage Renal Disease: Less than 15 mL/min/1.73 square meters Globulin 3.4 G/dL Invalid Interpretation Code AO ADM SS Glucose [Mass/Vol] 98 mg/dL Normal 70 - 105 mg/dL AO ADM SS Hematocrit (Bld) [Volume fraction] 40.0 % Normal 34.0 - 46.0 % AO Workflow SS Hemoglobin (Bld) [Mass/Vol] 13.7 G/dL Normal 12.0 - 16.0 G/dL AO Workflow SS Lipase [Catalytic activity/Vol] 49 U/L Normal 16 - 77 U/L AO ADM SS Lymphocytes (Bld) [#/Vol] 2.3 103/mcL Normal 0.9 - 4.3 10^3/mcL AO Workflow SS Lymphocytes/100 WBC (Bld) 22.8 % Normal 20.0 - 40.0 % AO Workflow SS MCH (RBC) [Entitic mass] 29.7 pg Normal 27.0 - 33.0 pg AO Workflow SS MCHC 34.3 G/dL Normal 32.0 - 36.0 G/dL AO Workflow SS MCV (RBC) [Entitic vol] 86.5 fL Normal 80.0 - 99.0 fL AO Workflow SS Monocyte distribution width Auto (Bld) [Entitic vol] 18.48 1 Normal 0.00 - 20.00 AO Workflow SS Comment on above: Result Comment: For ED adult patients suspected of sepsis, MDW<=20.0 does not rule out sepsis or risk of sepsis Monocytes (Bld) [#/Vol] 0.6 103/mcL Normal 0.1 - 1.4 10^3/mcL AO Workflow SS Monocytes/100 WBC (Bld) 5.9 % Normal 2.0 - 13.0 % AO Workflow SS Neutrophils (Bld) [#/Vol] 6.9 103/mcL Normal 2.3 - 8.1 10^3/mcL AO Workflow SS Neutrophils/100 WBC (Bld) 69.8 % Normal 50.0 - 75.0 % AO Workflow SS Platelet mean volume (Bld) [Entitic vol] 8.2 fL Normal 6.6 - 10.5 fL AO Workflow SS Platelets (Bld) [#/Vol] 249 103/mcL Normal 150 - 450 10^3/mcL AO Workflow SS Potassium [Moles/Vol] 3.4 mmol/L Low 3.5 - 5.1 mmol/L AO ADM SS Protein [Mass/Vol] 7.4 G/dL Normal 6.4 - 8.2 G/dL AO ADM SS RBC (Bld) [#/Vol] 4.62 106/mcL Normal 4.10 - 5.3 0 10^6/mcL AO Workflow SS Sodium [Moles/Vol] 138 mmol/L Normal 136 - 145 mmol/L AO ADM SS Urea nitrogen [Mass/Vol] 11 mg/dL Normal 7 - 18 mg/dL AO ADM SS Urea nitrogen/Creatinine [Mass ratio] 12 ratio Normal 7 - 27 ratio AO ADM SS WBC (Bld) [#/Vol] 9.9 103/mcL Normal 4.5 - 10.8 10^3/mcL AO Workflow SS LABORATORYOrdered By: Enrique Akhtar on 12-06-2023 Appearance (U) Cloudy *ABN* (12/06/23 5:27 AM) Invalid Interpretation Code Clear AO Auto Urine SS Bacteria LM.HPF (Urine sed) [#/Area] Trace /HPF Invalid Interpretation Code AO Auto Urine SS Bilirubin Ql (U) Negative (12/06/23 5:27 AM) Normal Negative AO Auto Urine SS Color (U) Yellow (12/06/23 5:27 AM) Normal AO Auto Urine SS Glucose Test strip (U) [Mass/Vol] Negative Normal Negative AO Auto Urine SS HCG ( test) Ql Negative (12/06/23 5:27 AM) Normal AO Manual Urine SS Hemoglobin Auto test strip (U) [Mass/Vol] Moderate *ABN* (12/06/23 5:27 AM) Invalid Interpretation Code Negative AO Auto Urine SS Ketones Ql (U) Negative Normal Negative AO Auto Ur ine SS test (u) int Not detected Invalid Interpretation Code AO Manual Urine SS UA Leuk Est Small *ABN* (12/06/23 5:27 AM) Invalid Interpretation Code Negative AO Auto Urine SS UA Nitrite Negative (12/06/23 5:27 AM) Normal Negative AO Auto Urine SS UA pH 6.0 (12/06/23 5:27 AM) Normal 5.0 - 8.0 AO Auto Urine SS UA Protein 30 mg/dL Normal Negative AO Auto Urine SS UA RBC LOADED /HPF Invalid Interpretation Code None Seen AO Auto Urine SS UA Spec Grav 1.025 (12/06/23 5:27 AM) Normal 1.015-1.025 AO Auto Urine SS UA Specimen Type Clean Catch (12/06/23 5:27 AM) Normal AO Auto Urine SS UA Squam Epithelial 5-10 /HPF Invalid Interpretation Code None Seen AO Auto Urine SS UA Urobilinogen 0.2 E.U./dL Normal 0.2-1.0 AO Auto Urine SS WBC LM.HPF (Urine sed) [#/Area] 0-5 /HPF Invalid Interpretation Code None Seen AO Auto Urine SS LIPon 12-06-2023 Lipase Level 49 U/L Normal 16-77 [facility] Comment on above: Performed By: #### L IP, ADIFF, CMP, GFR, MDW, ANEU, CBC #### [address] [address] PREGUon 12-06-2023 HCG ( test) Ql (U) Negative Normal [facility] Comment on above: Performed By: #### U AMICAO, PREGU, UA #### [address] [address] test (u) int Not detected Invalid Interpretation Code [facility] Comment on above: Performed By: #### U AMICAO, PREGU, UA #### [address] [address] UAon 12-06-2023 Color (U) Yellow Normal [facility] Comment on above: Performed By: #### U AMICAO, PREGU, UA #### [place] [address] Glucose (U) [Mass/Vol] Negative Normal Negative [facility] Comment on above: Performed By: #### U AMICAO, PREGU, UA #### [place] [address] Ketones Ql (U) Negative Normal Negative [facility] Comment on above: Performed By: #### U AMICAO, PREGU, UA #### [place] [address] UA Appear Cloudy Abnormal Clear [facility] Comment on above: Performed By: #### U AMICAO, PREGU, UA #### [place] [address] UA Blood Moderate Abnormal Negative [facility] Comment on above: Performed By: #### U AMICAO, PREGU, UA #### [place] [address] UA Leuk Est Small Abnormal Negative [facility] Comment on above: Performed By: #### U AMICAO, PREGU, UA #### [place] [address] UA Nitrite Negative Normal Negative [facility] Comment on above: Performed By: #### U AMICAO, PREGU, UA #### [place] [address] UA pH 6.0 Normal 5.0 - 8.0 [facility] Comment on above: Performed By: #### U AMICAO, PREGU, UA #### [place] [address] UA Protein 30 mg/dL Normal Negative [facility] Comment on above: Performed By: #### U AMICAO, PREGU, UA #### [place] [address] UA Spec Grav 1.025 Normal 1.015-1.025 [facility] Comment on above: Performed By: #### U AMICAO PREGU, UA #### [place] [address] [place], [place] [address] UA Specimen Type Clean Catch Normal [facility] Comment on above: Performed By: #### U AMICAO, PREGU, UA #### [place] [id number] [place] [id number] UA Urobilinogen 0.2 E.U./dL Normal 0.2-1.0 [facility] Comment on above: Performed By: #### U AMICAO PREGU, UA #### [place] [address] [place] [address] Urobilinogen (U) [Mass/Vol] Negative Normal Negative [facility] Comment on above: Performed By: #### U AMICAO PREGU, UA #### [place] [address] US PELVIS NON-OB W/TRANSVAGI NALon 12-06-2023 US PELVIS NON-OB W/TRANSVAGINAL ORIGINAL EXAMINATION: Transvaginal and transabdominal pelvic /29/2024 7:26 am TECHNIQUE: Transvaginal and transabdominal pelvic ultrasound was performed. COMPARISON: CT abdomen pelvis 12/06/2023 and 12/25/2021. HISTORY: ORDERING SYSTEM PROVIDED HISTORY: Reason for Exam: abdominal pain, cyst, rule out torsion FINDINGS: The anteverted uterus is measures 7.1 x 4.8 x 3.9 cm and has normal echotexture. No myometrial mass is seen. There are some calcifications seen at the myometrial/endometrial interface. The endometrial double wall thickness is 8.9 mm and is within normal limits. The right and left ovaries measure 4.4 x 2.1 x 1.8 cm and 4.5 x 3.3 x 2.9 cm, respectively. Predominately echogenic right ovarian echogenic lesion with some areas of small cysts measures 4.4 x 3.6 x 4.1 cm and correlates with a dermoid as seen on prior CT exam. There is an avascular crenulated 3.2 cm left ovarian structure which contains echogenic debris. Appropriate Doppler flow is appreciated to both ovaries. There is no free intraperitoneal fluid. IMPRESSION: No sonographic findings to suggest ovarian torsion. 4.4 cm right ovarian dermoid cyst. Probable 3.2 cm left ovarian corpus luteum. I have personally reviewed the images of this examination and agree with the resident's findings and interpretation. Interpreted by: Henrique Vazquez MD Preliminary Report By: Em Aragon Electronically signed By Henrique Vazquez MD Dictated Date: 12/06/2023 7:33:40 AM Prelim Date: 12/06/2023 7:45:05 AM Sign Date: 12/06/2023 8:20:24 AM Ordering Provider: BRISEYDA AVILA [facility] Abdomen/Pelvis without Conto n 12-05-2023 Abdomen/Pelvis without Cont [facility] [address] [place] [id number] Abdomen/Pelvis without Cont MR#: [id number] Acct: [id number] Name: CHANA DE LA O Rep #: [id number] : 2000 F 22 From: Anil reese MD PCP: Care Physician,No Primary Status: REG ER Study: Abdomen/Pelvis without Cont Date of Exam: 11/08 09/30 Exam# [id number] Ordering Dr: Charito Berman DO [id number] STUDY: CT ABDOMEN AND PELVIS WITHOUT CONTRAST REASON FOR EXAM: Female, 22 years old. abdominal / back pain. Hematuria. RADIATION DOSAGE (If Supplied By Facility): CTDIvol = ( 14.15 ) mGy, DLP = ( 746.04 ) mGycm TECHNIQUE: Transaxial images were obtained from the dome of the diaphragm to the symphysis pubis without oral contrast, and without intravenous contrast. Sagittal and coronal images were reconstructed. Individualized dose optimization techniques were used for this CT. COMPARISON: None. FINDINGS: The visualized lung bases are unremarkable. The visualized portions of the heart are within normal limits. Normal liver. There are surgical clips in the gallbladder fossa consistent with a prior cholecystectomy. Normal spleen. Normal pancreas. Normal bilateral adrenal glands. Normal right kidney. Normal left kidney. Normal visualized stomach. Normal small intestine. Normal colon. The appendix is visualized and appears normal. Normal abdominal aorta. Normal inferior vena cava. Normal retroperitoneum. Normal urinary bladder. There is a 3.2 cm x 2.7 cm fat-containing mass in the right ovary. This most likely represents a dermoid cyst. This is unchanged. Follicles are seen in the left ovary. Normal abdominal wall. Normal osseous structures. CT/Abdomen/Pelvis without Cont IMPRESSION: Stable 3.2 cm x 2.7 cm fat-containing mass in the right ovary suggestive of a dermoid. Electronically Signed: Anil Hassan MD at 13:26 EDT , CC: Dr. Charito Berman DO; No Primary Care Physician Handle Turner: Signed Normal [facility] Emergency Department Summary on 12-05-2023 Emergency Department Summary [facility] Medical Records Department [address] [place] [address] Emergency Department Summary 12/05/23 MR#: [id number] Acct: [id number] Name: CHANA DE LA O Rep #: [id number] : 2000 22 From: Charito Berman DO PCP: Care Physician,No Primary Status:DEP ER Location: ED HPI History of Present Illness Chief Complaint: Complaint Detail of Chief Complaint: Back and abdomen pain and dark urine Informant: patient Narrative Narrative: Patient presents with abnormal color to urine since yesterday. She describes some upper abdomen and low back pain. She states she was in the emergency department and had blood work that was normal and was discharged. She denies dysuria urgency or frequency. No history of kidney stones. She has had a prior tubal ligation and does not think she is . She denies fevers or chills or sweats. Currently rates her pain a 5 out of 10 and it is diffuse from the upper abdomen down to the lower abdomen PFSH PFS Medical History IBS (irritable bowel syndrome) Ovarian cyst Marijuana use Wears glasses Gastric reflux Shortness of breath on exertion History of IBS Vapes nicotine containing substance Gastroparesis Vaginal delivery ADHD IBS (irritable bowel syndrome) Encounter for induction of labor Rh negative state in antepartum period Depression affecting IUGR (intrauterine growth restriction) Low iron Marijuana use Syncope Upper abdominal pain Nausea vomiting Anemia Depression Anxiety Asthma Home Medications ???Medication ???Instructions ???Recorded ???Last Taken ???Type albuterol sulfate 90 mcg/actuation 2 inh inhalation PRN asthma #8.5 05/15/23 06/22/23 04:30 Rx aerosol inhaler grams alprazolam 1 mg tablet 1 mg PO QHS PRN sleep #30 tabs 08/26/23 Unknown Rx ondansetron 4 mg disintegrating 4 mg PO Q6H PRN nausea and 12/04/23 Unknown Rx tablet vomiting #10 tabs Allergy/AdvReac Type Severity Reaction Status Date / Time No Known Allergies Allergy Verified 12/05/23 11:07 Family History Father Diabetes Mother Depression Grandmother Breast cancer Surgical History Tubal ligation status History of esophagogastroduodenos copy (EGD) History of cholecystectomy ( 09/2021) H/O dilation and curettage History of adenoidectomy Hx of tonsillectomy Social History household members: significant other Smoking Status: Current every day smoker tobacco type: e-cigarettes alcohol intake: never substance use type: marijuana ROS ROS ED Review of Systems ROS Unobtainable: other Constitutional Constitutional ED: Reports lethargy; Denies chills, fever(s), sweats or weight loss Eyes Eyes: Denies blurry vision, change in vision or diplopia ENT ENT ED: Denies rhinorrhea or sore throat Cardiovascular Cardiovascular: Denies chest pain, orthopnea or racing heartbeat Respiratory/Chest Respiratory/Chest: Denies cough, dyspnea, dyspnea on exertion, orthopnea or sputum Gastrointestinal Gastrointestinal: Reports abdominal pain; Denies diarrhea, nausea or vomiting Genitourinary Genitourinary ED: Reports other Details: Dark urine ; Denies dysuria, hematuria or urinary frequency Musculoskeletal Musculoskeletal: Reports back pain; Denies arthralgias, myalgias or neck pain Integumentary Denies abscess, Abrasions or rash Neurologic Neurologic: Denies headache(s) or weakness Psychiatric Psychiatric: Denies anxiety, depression or suicidal thoughts Endocrine Endocrinology: Denies polydipsia, polyphagia or polyuria Hematologic/Lymphatic Hematologic/Lymphatic: Denies easy bleeding, easy bruising or lymphadenopathy Allergic/Immunologic Allergic/Immunologic ED: Denies mouth swelling, tongue swelling or urticaria EXAM Physical Exam Const Vital Signs: 12/05/23 11:05 12/05/23 12:36 12/05/23 13:04 Temperature 97.7 F L 97.7 F L Temperature Source Oral Temporal Pulse Rate 122 H 122 H 99 Respiratory Rate 18 18 16 Blood Pressure 126/99 H 126/99 H 122/96 H Blood Pressure Mean 108 108 104 Pulse Ox 98 98 98 Oxygen Delivery Method Room Air Room Air Positive well nourished and well developed General Appearance ED: well developed and NAD HEENT Reports TM's clear and moist mucous membranes normocephalic and atraumatic; Negative for trauma or tenderness Tympanic Membrane ED: Yes TM's clear Eyes PERRL and EOMs intact bilaterally General Eye ED: Negative for pale conjunctiva or scleral icterus Neck no lymphadenopathy, supple and no JVD General: Negative for tenderness Chest Wall inspection of chest normal and palpation of chest (more content not included)... Normal [facility] Urinalysis, Completeon 12-04 WBC 0-5 SEEN Normal 0-5 [facility] Comment on above: Order Comment: SWATI CTOR TO SPECIFY Performed By: #### L 400.0001 #### [facility] [address] [place], [place], [id number] BACTERIA 1+ /hpf Normal None Seen [facility] Comment on above: Order Comment: SWATI CTOR TO SPECIFY Performed By: #### L 400.0001 #### [facility] [address] [place], [address] EPI,SQUAMOUS 0-5 SEEN Normal 5-10 [facility] Comment on above: Order Comment: SWATI CTOR TO SPECIFY Performed By: #### L 400.0001 #### [facility] [address] [place], [address] Mucus Ql (Urine sed) 1+ /hpf Normal [facility] Comment on above: Order Comment: SWATI CTOR TO SPECIFY Performed By: #### L 400.0001 #### [facility] [address] [place], [address] RBC 25-50 SEEN Normal 0-5 [facility] Comment on above: Order Comment: SWATI CTOR TO SPECIFY Performed By: #### L 400.0001 #### [facility] [address] [place], [address] CBC W/Diff, Automatedon 10-2 Absolute Lymph 1.30 X10 3/uL Normal 0.83-4.51 [facility] Comment on above: Performed By: #### L 500.4050, L100.0100, L700.6800, L501.2450 ####[facility] [address] [place], [address] Absolute Neut 9.3 X10 3/uL High 2.0-7.7 [facility] Comment on above: Performed By: #### L 500.4050, L100.0100, L700.6800, L501.2450 ####[facility] [address] [place], [address] Basophils/100 WBC (Bld) 0.5 % Normal 0-1 [facility] Comment on above: Performed By: #### L 500.4050, L100.0100, L700.6800, L501.2450 ####[facility] [address] [place], [address] Eosinophils/100 WBC (Bld) 0.3 % Normal 0-5 [facility] Comment on above: Performed By: #### L 500.4050, L100.0100, L700.6800, L501.2450 ####[facility] [address] [place], [address] Erythrocyte distribution width (RBC) [Ratio] 13.1 % Normal 11.6-14.6 [facility] Comment on above: Performed By: #### L 500.4050, L100.0100, L700.6800, L501.2450 ####[facility] [address] [place], [address] Hematocrit (Bld) [Volume fraction] 42.1 % Normal 37-47 [facility] Comment on above: Performed By: #### L 500.4050, L100.0100, L700.6800, L501.2450 ####[facility] [address] [place], [address] Hemoglobin (Bld) [Mass/Vol] 14.3 g/dL Normal 12.0-15.0 [facility] Comment on above: Performed By: #### L 500.4050, L100.0100, L700.6800, L501.2450 ####[facility] [address] [place], [address] IG% 0.400 Normal 0.0-0.9 [facility] Comment on above: Result Comment: IG% - Immature Granulocytes (promyelocytes, myelocytes and metamyelocytes) > 1% indicates that a LEFT SHIFT is Present. Performed By: #### L 500.4050, L100.0100, L700.6800, L501.2450 ####[facility] [address] [place], [address] Lymphocytes/100 WBC (Bld) 11.8 % Low 19-41 [facility] Comment on above: Performed By: #### L 500.4050, L100.0100, L700.6800, L501.2450 ####[facility] [address] [place], [address] MCH (RBC) [Entitic mass] 28.5 pg Normal 27.0-32.0 [facility] Comment on above: Performed By: #### L 500.4050, L100.0100, L700.6800, L501.2450 ####[facility] [address] [place], [address] MCHC (RBC) [Mass/Vol] 34.0 g/dL Normal 32-36 [facility] Comment on above: Performed By: #### L 500.4050, L100.0100, L700.6800, L501.2450 ####[facility] [address] [place], [address] MCV (RBC) [Entitic vol] 84.0 fL Normal 81-99 [facility] Comment on above: Performed By: #### L 500.4050, L100.0100, L700.6800, L501.2450 ####[facility] [address] [place], [address] Monocytes/100 WBC (Bld) 3.0 % Normal 0-10 [facility] Comment on above: Performed By: #### L 500.4050, L100.0100, L700.6800, L501.2450 ####[facility] [address] [place], [address] Neutrophils/100 WBC (Bld) 84.0 % High 47-70 [facility] Comment on above: Performed By: #### L 500.4050, L100.0100, L700.6800, L501.2450 ####[facility] [address] [place], [address] Nucleated RBC (Bld) [#/Vol] 0 10*3/uL Normal 0-5 [facility] Comment on above: Performed By: #### L 500.4050, L100.0100, L700.6800, L501.2450 ####[facility] [address] [place], [address] Platelet mean volume (Bld) [Entitic vol] 10.2 fL Normal 6.2-12.0 [facility] Comment on above: Performed By: #### L 500.4050, L100.0100, L700.6800, L501.2450 ####[facility] [address] [place], [address] Platelets (Bld) [#/Vol] 330 10*3/uL Normal 150-450 [facility] Comment on above: Performed By: #### L 500.4050, L100.0100, L700.6800, L501.2450 ####[facility] [address] [place], [address] RBC (Bld) [#/Vol] 5.01 10*6/uL Normal 4.2-5.4 [facility] Comment on above: Performed By: #### L 500.4050, L100.0100, L700.6800, L501.2450 ####[facility] [address] [place], [address] RDW SD 40.2 fl Normal 35.1-43.9 [facility] Comment on above: Performed By: #### L 500.4050, L100.0100, L700.6800, L501.2450 ####[facility] [address] [place], [address] WBC (Bld) [#/Vol] 11.0 10*3/uL Normal 4.4-11.0 [facility] Comment on above: Performed By: #### L 500.4050, L100.0100, L700.6800, L501.2450 ####[facility] [address] [place], [address] Comprehensive Metabolic Prof ilon 12-04-2023 Albumin [Mass/Vol] 4.4 g/dL Normal 3.2-5.0 [facility] Comment on above: Performed By: #### L 500.4050, L100.0100, L700.6800, L501.2450 ####[facility] [address] [place], [address] Albumin/Globulin [Mass ratio] 1.0 {ratio} Normal 0.9-2.4 [facility] Comment on above: Performed By: #### L 500.4050, L100.0100, L700.6800, L501.2450 ####[facility] [address] [place], [address] ALK P 74 U/L Normal 45-117 [facility] Comment on above: Performed By: #### L 500.4050, L100.0100, L700.6800, L501.2450 ####[facility] [address] [place], [address] ALT [Catalytic activity/Vol] 22 U/L Normal 13-56 [facility] Comment on above: Performed By: #### L 500.4050, L100.0100, L700.6800, L501.2450 ####[facility] [address] [place], [address] AST [Catalytic activity/Vol] 13 U/L Low 15-37 [facility] Comment on above: Performed By: #### L 500.4050, L100.0100, L700.6800, L501.2450 ####[facility] [address] [place], [address] Bilirubin [Mass/Vol] 0.60 mg/dL Normal 0.20-1.00 [facility] Comment on above: Result Comment: For patients on eltrombopag therapy, use of Dimension [place] TBIL is not recommended. Performed By: #### L 500.4050, L100.0100, L700.6800, L501.2450 ####[facility] [address] [place], [address] BUN/CRE 9.4 RATIO Low 10-20 [facility] Comment on above: Performed By: #### L 500.4050, L100.0100, L700.6800, L501.2450 ####[facility] [address] [place], [address] CA,Total 8.9 mg/dL Normal 8.5-10.1 [facility] Comment on above: Performed By: #### L 500.4050, L100.0100, L700.6800, L501.2450 ####[facility] [address] [place], [address] Chloride [Moles/Vol] 107 mmol/L Normal 98-107 [facility] Comment on above: Performed By: #### L 500.4050, L100.0100, L700.6800, L501.2450 ####[facility] [address] [place], [address] CO2 [Moles/Vol] 25.0 mmol/L Normal 21.0-32.0 [facility] Comment on above: Performed By: #### L 500.4050, L100.0100, L700.6800, L501.2450 ####[facility] [address] [place], [address] Creatinine [Mass/Vol] 0.74 mg/dL Normal 0.55-1.02 [facility] Comment on above: Result Comment: The validity of the calculated GFR GFRAA in patients over 70 years has not been determined. Clinical correlation is essential. Performed By: #### L 500.4050, L100.0100, L700.6800, L501.2450 ####[facility] [address] [place], [address] ECRCL 129.28 ml/min Normal [facility] Comment on above: Performed By: #### L 500.4050, L100.0100, L700.6800, L501.2450 ####[facility] [address] [place], [address] EST GFR - AA 125 mL/min Normal >60 [facility] Comment on above: Result Comment: Afri can [place] GFR Calc Performed By: #### L 500.4050, L100.0100, L700.6800, L501.2450 ####[facility] [address] [place], [address] GAP 7 Normal 5-15 [facility] Comment on above: Performed By: #### L 500.4050, L100.0100, L700.6800, L501.2450 ####[facility] [address] [place], [address] GFR/1.73 sq M.predicted among non-blacks MDRD (S/P/Bld) [Vol rate/Area] 103 mL/min/{1.73_m2} Normal >60 [facility] Comment on above: Result Comment: Non- GFR Calc Performed By: #### L 500.4050, L100.0100, L700.6800, L501.2450 ####[facility] [address] [place], [address] Globulin (S) [Mass/Vol] 4.4 g/dL High 2.2-4.2 [facility] Comment on above: Performed By: #### L 500.4050, L100.0100, L700.6800, L501.2450 ####[facility] [address] [place], [address] Glucose [Mass/Vol] 126 mg/dL High 74-106 [facility] Comment on above: Result Comment: Fast ing Glucose result greater than or equal to 126 mg/dL suggests DIABETES MELLITUS per A.D.A. criteria. Performed By: #### L 500.4050, L100.0100, L700.6800, L501.2450 ####[facility] [address] [place], [address] Potassium [Moles/Vol] 4.0 mmol/L Normal 3.5-5.1 [facility] Comment on above: Performed By: #### L 500.4050, L100.0100, L700.6800, L501.2450 ####[facility] [address] [place], [address] Sodium [Moles/Vol] 139 mmol/L Normal 136-145 [facility] Comment on above: Performed By: #### L 500.4050, L100.0100, L700.6800, L501.2450 ####[facility] [address] [place], [address] T PROT 8.8 g/dL High 6.4-8.2 [facility] Comment on above: Performed By: #### L 500.4050, L100.0100, L700.6800, L501.2450 ####[facility] [address] [place], [address] Urea nitrogen [Mass/Vol] 7 mg/dL Normal 7-18 [facility] Comment on above: Performed By: #### L 500.4050, L100.0100, L700.6800, L501.2450 ####[facility] [id number] [place], [address] Emergency Department Summary on 12-04-2023 Emergency Department Summary [facility] Medical Records Department [address] [place] [address] Emergency Department Summary 12/04/23 MR#: [id number] Acct: [id number] Name: CHANA DE LA O Rep #: [id number] : 2000 22 From: Marcos Arizmendi MD PCP: Care Physician,No Primary Status:REG ER Location: ED HPI HPI - GI History of Present Illness Chief Complaint: Abd Pain Detail of Chief Complaint: Acute on chronic abdominal pain with nausea and vomiting. Informant: patient Abdominal Pain/Flank Pain Onset: Today and Yesterday Context: Gradual Onset Timing: Continuous Quality: Aching and Cramping Location: Diffuse Current Severity: Moderate Maximum Severity: Moderate Worsened by: Nothing Relieved by: Nothing Nausea/Vomiting/Emesis GI Symptom: Positive for Nausea and Vomiting Onset: Today and Yesterday Severity: Mild Diarrhea/Melena/Hemato chezia GI Symptom: Negative for Diarrhea Associated Symptoms Associated Symptoms: Negative for Dysuria, Frequency, Hematuria or Urgency Narrative Narrative: 22-year-old female history of chronic abdominal pain and IBS. She does use marijuana. States she has had a prior cholecystectomy and tubal ligation. She has had this pain for 2 and half years since her last . She sees both GI and her REPAIRER AND CHECKER for it they did not have a specific cause. She has had multiple prior emergency department evaluations for this and multiple CAT scans showing ovarian cyst but no other acute finding. She has never had a bowel obstruction or any bowel resection. She denies any fever. No urinary symptoms. Prior similar symptoms: Yes Recent Illness/Hospitalizatio n: No PFSH PFS Medical History IBS (irritable bowel syndrome) Ovarian cyst Marijuana use Wears glasses Gastric reflux Shortness of breath on exertion History of IBS Vapes nicotine containing substance Gastroparesis Vaginal delivery ADHD IBS (irritable bowel syndrome) Encounter for induction of labor Rh negative state in antepartum period Depression affecting IUGR (intrauterine growth restriction) Low iron Marijuana use Syncope Upper abdominal pain Nausea vomiting Anemia Depression Anxiety Asthma Home Medications ???Medication ???Instructions ???Recorded ???Last Taken ???Type albuterol sulfate 90 mcg/actuation 2 inh inhalation PRN asthma #8.5 05/15/23 06/22/23 04:30 Rx aerosol inhaler grams alprazolam 1 mg tablet 1 mg PO QHS PRN sleep #30 tabs 08/26/23 Unknown Rx ondansetron 4 mg disintegrating 4 mg PO Q6H PRN nausea and 12/04/23 Unknown Rx tablet vomiting #10 tabs Allergy/AdvReac Type Severity Reaction Status Date / Time No Known Allergies Allergy Verified 08/21/23 01:33 Family History Father Diabetes Mother Depression Grandmother Breast cancer Surgical History Tubal ligation status History of esophagogastroduodenos copy (EGD) History of cholecystectomy ( 09/2021) H/O dilation and curettage History of adenoidectomy Hx of tonsillectomy Social History household members: significant other Smoking Status: Current every day smoker tobacco type: e-cigarettes alcohol intake: never substance use type: marijuana ROS ROS ED ROS Narrative Abdominal pain diffuse. Nausea vomiting. Normal bowel movements. No dysuria. No fever. Constitutional Constitutional ED: Denies chills or fever(s) ENT ENT ED: Denies ear pain Cardiovascular Cardiovascular: Denies chest pain Respiratory/Chest Respiratory/Chest: Denies cough or dyspnea Gastrointestinal Gastrointestinal: Reports abdominal pain, nausea and vomiting; Denies constipation, diarrhea or melena Genitourinary Genitourinary ED: Denies dysuria, hematuria or urinary frequency Musculoskeletal Musculoskeletal: Denies arthralgias or back pain Integumentary Denies abscess or Abrasions Neurologic Neurologic: Denies headache(s) Psychiatric Psychiatric: Denies anxiety Endocrine Endocrinology: Denies polydipsia Hematologic/Lymphatic Hematologic/Lymphatic: Denies easy bleeding Allergic/Immunologic Allergic/Immunologic ED: Denies mouth swelling, tongue swelling or urticaria EXAM Physical Exam Narrative Exam Narrative: 22-year-old female on all fours on the bed. Vital signs are stable afebrile. She does not look septic toxic. No distress. Complaining of pain. H EENT exam retrieves membranes. Pupils round react light. No trauma to her face or head. Neck nontender. Lungs clear. Heart regular rhythm rate about 85 no murmur. Chest wall and ribs nontender. Abdomen is soft nondistended normal bowel sounds without peritoneal signs. She complains of abdominal pain but is n (more content not included)... Normal [facility] Lipaseon 12-04-2023 Lipase [Catalytic activity/Vol] 21 U/L Normal 13-75 [facility] Comment on above: Result Comment: Everardo pena note: LIPASE revised reference range effective 22. New Lipase methodology. Expected to produce lower values than the previous assay method. NEW Reference Range: 13 - 75 U/L Performed By: #### L 500.4050, L100.0100, L700.6800, L501.2450 ####[facility] [id number] [place], [place], [id number] ,Serum,hCG Quali.on 12-04-2023 HCG, SERUM QUAL Negative Normal [facility] Comment on above: Performed By: #### L 500.4050, L100.0100, L700.6800, L501.2450 ####[facility] [address] [place], [place], [id number] CNOVon 11-18-2023 CNOV Office Visit (WSTR ) CHANA DE LA O ([id number]) 1 F Date Time Provider Department 11/18/23 3:45 PM [facility] During your visit today, we recorded the following information about you: Temperature Pulse Respiration Blood pressure 97.9 degrees 76/minute 20/minute 124/85 Weight 90.2 kg Tosin Sung, RN GYN.SENIOR OCCUPATIONAL THERAPIST 11/18/2023 4:05 PM Signed Patient presents with: [...] - Itching Date Reviewed: 11/18/2023 Reviewed by: Tosin Sung APRN.SENIOR OCCUPATIONAL THERAPIST - Fully Assessed Reason for Visit: Cough [28] Cmt: Chest congestion and tightness x1 week, ST for first 2 days Primary Visit Diagnosis:Acute cough [R05.1] Order(s):XR CHEST 2V FRONTAL/LAT [[id number]] Order #: [id number]. #:[id number] albuterol HFA (PROVENTIL HFA, VENTOLIN HFA) 90 [...] by mout (more content not included)... Normal [facility] XR CHEST 2V FRONTAL/LATon XR CHEST 2V [...] tissues: Unremarkable. IMPRESSION: No acute radiographic abnormality. Handle Turner: KOLBY Transcribe Date/Time: Nov 18 2023 3:49P Dictated by : DEIRDRE RICK DO This examination was interpreted and the report reviewed and electronically signed by: DEIRDRE RICK DO on Nov 18 2023 3:50PM EST [id number] Normal [facility] XR Chest PA and Lateralon IMPRESSION: No acute radiographic abnormality. Handle Turner: KOLBY Transcribe Date/Time: Nov 18 2023 3:49P Dictated by : DEIRDRE RICK DO This examination was interpreted and the report reviewed and electronically signed by: DEIRDRE RICK DO on Nov 18 2023 3:50PM EST DIVISION OF RADIOLOGY * * *Final [...] soft tissues: Unremarkable. DIVISION OF RADIOLOGY Provider, [facility] - 11/18/2023 * * *Final Report* * [...] Unremarkable. IMPRESSION IMPRESSION: No acute radiographic abnormality. Handle Turner: PSCB Transcribe Date/Time: Nov 18 2023 3:49P Dictated by : DEIRDRE RICK DO This examination was interpreted and the report reviewed and electronically signed by: DEIRDRE RICK DO on Nov 18 2023 3:50PM EST [facility] Radiology Study observation (narrative) [facility] XR Chest PA and LateralOrder ed By: Cc Provider on 11-18-2023 [facility] US Pelvison 08-26-2023 Indication Pelvic pain, dermoid [...] By: Maria A Epps RDMS Read By: Beryl Vega M.D. MATERNAL MEDICINE [facility] B-HCG SerPl-aCncon 4 HCG.beta subunit Qn m[IU]/mL Normal <5.0 [facility] Comment on above: Order Comment: Speci men Type: SWAB Ordering Facility: [facility] Address: [address] [place] [address] Result Comment: Nega tive Performed By: #### 3 6902-5, BVAMP #### [facility] CLIA [id number] [address] [place] [address] [place] US Pelvison 08-25-2023 Radiology Study observation (narrative) [facility] BACTERIAL VAGINOSIS NAATon 0 08-24-2023 Lactobacillus crispatus+gasseri+dior senii + Gardnerella vaginalis + Atopobium vaginae rRNA ELMIRA+probe Ql (Vag fld) Positive Abnormal Negative for bacterial vaginosis [facility] Comment on above: Order Comment: Speci men Type: SWAB Ordering Facility: [facility] Address: [address] [place] [address] Performed By: #### 3 6902-5, BVAMP #### [facility] CLIA [id number] [address] [place] [address] [place] C. trachomatis+N. gonorrhoea e DNA ELMIRA+probe Ql (Unsp spec)on 08-24-2023 C. trachomatis rRNA ELMIRA+probe Ql (Unsp spec) Negative Normal Negative for Chlamydia trachomatis by amplificaton [facility] Comment on above: Order Comment: Speci men Type: SWAB Ordering Facility: [facility] Address: [address] [place] [address] Performed By: #### 3 6902-5, BVAMP #### [facility] CLIA [id number] [address] [place] [address] [place] N. gonorrhoeae rRNA ELMIRA+probe Ql (Unsp spec) Negative Normal Negative for Neisseria gonorrhoeae by amplification [facility] Comment on above: Order Comment: Speci men Type: SWAB Ordering Facility: [facility] Address: [address] [place] [address] Performed By: #### 3 6902-5, BVAMP #### [facility] CLIA [id number] [address] [place] [address] [place] ALLIE/TRICHOMONAS NAATon 0 08-24-2023 C. glabrata RNA ELMIRA+probe Ql (Vag fld) Negative Normal Negative for Allie glabrata [facility] Comment on above: Order Comment: Speci men Type: SWAB Ordering Facility: [facility] Address: [address] [place] [address] Performed By: #### C VTV #### [facility] CLIA [id number] [address] [place] [address] [place] Allie sp DNA ELMIRA+probe Ql (Vag fld) Positive Abnormal Negative for Allie species [facility] Comment on above: Order Comment: Speci men Type: SWAB Ordering Facility: [facility] Address: [address] [place] [address] Performed By: #### C VTV #### [facility] CLIA [id number] [address] [place] [address] [place] T. vaginalis DNA ELMIRA+probe Ql (Unsp spec) Negative Normal Negative for Trichomonas vaginalis by amplification [facility] Comment on above: Order Comment: Speci men Type: SWAB Ordering Facility: [facility] Address: [address] [place] [address] Performed By: #### C VTV #### [facility] CLIA [id number] [address] [place] [address] [place] CNOVon 08-24-2023 CNOV Office Visit (OBGYWM ) CHANA DE LA O ([id number]) 1 F Date Time Provider Department 08/24/23 10:45 AM ANSLEY IBRAHIM During your visit today, we recorded the following information about you: Blood pressure Weight Last Period 116/72 88.5 kg 08/21/23 Ansley Ibrahim APRN.CNM 08/24/2023 12:33 PM Signed Chana Macias Jaylyn is a 22 year old female who presents for problem visit HPI: Here today for follow up from ED visit. Seen in ED at [facility] for abdominal pain. Dermoid cyst seen. [...] and going around back. general surgery at [facility], gallbladder removed. 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 Normal [facility] CBC with Auto Differentialon 08-19-2023 Basophils (Bld) [#/Vol] 0.05 10*3/uL [facility] Basophils/100 WBC (Bld) 1 % 0.0 - 2.0 % [facility] Eosinophils (Bld) [#/Vol] 0.18 10*3/uL [facility] Eosinophils/100 WBC (Bld) 3 % 0 - 6 % [facility] Erythrocyte distribution width (RBC) [Ratio] 14.3 % 11.5 - 15.0 % [facility] Hematocrit (Bld) [Volume fraction] 40.6 % 34.0 - 48.0 % [facility] Hemoglobin (Bld) [Mass/Vol] 13.4 g/dL 11.5 - 15.5 g/dL [facility] Immature granulocytes (Bld) [#/Vol] 0.03 10*3/uL [facility] Immature granulocytes/100 WBC (Bld) 1 % 0.0 - 5.0 % [facility] Lymphocytes/100 WBC (Bld) 28 % 20.0 - 42.0 % [facility] Lymphocytes/100 WBC (Bld) 1.88 % [facility] MCH (RBC) [Entitic mass] 27.8 pg 26.0 - 35.0 pg [facility] MCHC (RBC) [Mass/Vol] 33.0 g/dL 32.0 - 34.5 g/dL [facility] MCV (RBC) [Entitic vol] 84.2 fL 80.0 - 99.9 fL [facility] Monocytes/100 WBC (Bld) 8 % 2.0 - 12.0 % [facility] Monocytes/100 WBC (Bld) 0.52 % [facility] Neutrophils/100 WBC (Bld) 60 % 43.0 - 80.0 % [facility] Platelet mean volume (Bld) [Entitic vol] 11.7 fL 7.0 - 12.0 fL [facility] Platelets (Bld) [#/Vol] 245 10*3/uL [facility] RBC (Bld) [#/Vol] 4.82 10*6/uL 3.50 - 5.5 0 m/uL [facility] Segmented neutrophils/100 WBC (Bld) 3.99 % [facility] WBC other (Bld) [#/Vol] 6.7 [facility] CBC with Diffon 08-19-2023 Abs. Basophil 0.05 k/uL Normal 0.00-0.20 [facility] Comment on above: Performed By: #### L ACTIC, CBCWD, CMPX, LIP #### [place] [address] Screw Machine Operator: Dayton Jimenez MD Abs.Imm.Granulocyte 0.03 k/uL Normal 0.00-0.58 [facility] Comment on above: Performed By: #### L ACTIC, CBCWD, CMPX, LIP #### [place] [address] Screw Machine Operator: Dayton Jimenez MD Abs.Neutrophil (Seg) 3.99 k/uL Normal 1.80-7.30 [facility] Comment on above: Performed By: #### L ACTIC, CBCWD, CMPX, LIP #### [address] [place] [address] Screw Machine Operator: Dayton Jimenez MD Basophils/100 WBC (Bld) 1 % Normal 0.0-2.0 [facility] Comment on above: Performed By: #### L ACTIC, CBCWD, CMPX, LIP #### [address] [place] [address] Screw Machine Operator: Dayton Jimenez MD Eosinophils (Bld) [#/Vol] 0.18 10*3/uL Normal 0.05-0.50 [facility] Comment on above: Performed By: #### L ACTIC, CBCWD, CMPX, LIP #### [address] [place] [address] Screw Machine Operator: Dayton Jimenez MD Eosinophils/100 WBC (Bld) 3 % Normal 0-6 [facility] Comment on above: Performed By: #### L ACTIC, CBCWD, CMPX, LIP #### [address] [place] [address] Screw Machine Operator: Dayton Jimenez MD Erythrocyte distribution width (RBC) [Ratio] 14.3 % Normal 11.5-15.0 [facility] Comment on above: Performed By: #### L ACTIC, CBCWD, CMPX, LIP #### [address] [place] [address] Screw Machine Operator: Dayton Jimenez MD Hematocrit (Bld) [Volume fraction] 40.6 % Normal 34.0-48.0 [facility] Comment on above: Performed By: #### L ACTIC, CBCWD, CMPX, LIP #### [address] [place] [address] Screw Machine Operator: Dayton Jimenez MD Hemoglobin (Bld) [Mass/Vol] 13.4 g/dL Normal 11.5-15.5 [facility] Comment on above: Performed By: #### L ACTIC, CBCWD, CMPX, LIP #### [address] [address] Screw Machine Operator: Dayton Jimenez MD Immature granulocytes/100 WBC (Bld) 1 % Normal 0.0-5.0 [facility] Comment on above: Performed By: #### L ACTIC, CBCWD, CMPX, LIP #### [place] [address] Screw Machine Operator: Dayton Jimenez MD Lymphocytes (Bld) [#/Vol] 1.88 10*3/uL Normal 1.50-4.00 [facility] Comment on above: Performed By: #### L ACTIC, CBCWD, CMPX, LIP #### [place] [address] Screw Machine Operator: Dayton Jimenez MD Lymphocytes/100 WBC (Bld) 28 % Normal 20.0-42.0 [facility] Comment on above: Performed By: #### L ACTIC, CBCWD, CMPX, LIP #### [place] [address] Screw Machine Operator: Dayton Jimenez MD MCH (RBC) [Entitic mass] 27.8 pg Normal 26.0-35.0 [facility] Comment on above: Performed By: #### L ACTIC, CBCWD, CMPX, LIP #### [address] [address] Screw Machine Operator: Dayton Jimenez MD MCHC (RBC) [Mass/Vol] 33.0 g/dL Normal 32.0-34.5 [facility] Comment on above: Performed By: #### L ACTIC, CBCWD, CMPX, LIP #### [address] [place] [address] Screw Machine Operator: Dayton Jimenez MD MCV (RBC) [Entitic vol] 84.2 fL Normal 80.0-99.9 [facility] Comment on above: Performed By: #### L ACTIC, CBCWD, CMPX, LIP #### [address] [place] [address] Screw Machine Operator: Dayton Jimenez MD Monocytes (Bld) [#/Vol] 0.52 10*3/uL Normal 0.10-0.95 [facility] Comment on above: Performed By: #### L ACTIC, CBCWD, CMPX, LIP #### [address] [place] [address] Screw Machine Operator: Dayton Jimenez MD Monocytes/100 WBC (Bld) 8 % Normal 2.0-12.0 [facility] Comment on above: Performed By: #### L ACTIC, CBCWD, CMPX, LIP #### [address] [place] [address] Screw Machine Operator: Dayton Jimenez MD Neutrophil (Seg) 60 % Normal 43.0-80.0 [facility] Comment on above: Performed By: #### L ACTIC, CBCWD, CMPX, LIP #### [address] [place] [address] Screw Machine Operator: Dayton Jimenez MD Platelet mean volume (Bld) [Entitic vol] 11.7 fL Normal 7.0-12.0 [facility] Comment on above: Performed By: #### L ACTIC, CBCWD, CMPX, LIP #### [address] [address] Screw Machine Operator: Dayton Jimenez MD Platelets (Bld) [#/Vol] 245 10*3/uL Normal 130-450 [facility] Comment on above: Performed By: #### L ACTIC, CBCWD, CMPX, LIP #### [facility] [address] [place] [address]. [place] [address] Screw Machine Operator: Dayton Jimenez MD RBC (Bld) [#/Vol] 4.82 10*6/uL Normal 3.50-5.50 [facility] Comment on above: Performed By: #### L ACTIC, CBCWD, CMPX, LIP #### [address] [place] [address] Screw Machine Operator: Dayton Jimenez MD WBC (Bld) [#/Vol] 6.7 10*3/uL Normal 4.5-11.5 [facility] Comment on above: Performed By: #### L ACTIC, CBCWD, CMPX, LIP #### [address] [place] [address] Screw Machine Operator: Dayton Jimenez MD CT ABDOMEN PELVIS W [...] without bulky pelvic adenopathy or free fluid. Peritoneum/Retroperito neum: No bulky retroperitoneal adenopathy. No suspicious peritoneal [...] Vlad Casarez DO 08/19/23 Final result Normal [facility] Comment on above: Order Comment: Reaso n for exam:->LLQ pain Additional Contrast?->None Decision Support Exception - unselect if not a suspected or confirmed emergency medical condition->Emergency Medical Condition ([place]) What reading provider will be dictating this exam?->CRC CT Abdomen and Pelvis W cont rast Shi 08-19-2023 1. Right adnexal 3.2 cm mixed density [...] LFTs. considerations for underlying adenoma or hemangioma. [facility] EXAMINATION: CT OF THE ABDOMEN AND PELVIS [...] without bulky pelvic adenopathy or free fluid. Peritoneum/Retroperito neum: No bulky retroperitoneal adenopathy. No suspicious peritoneal or mesenteric process Vasculature: Grossly normal caliber of abdominal aorta and vasculature Bones/Soft Tissues: No acute osseous or soft tissue findings. [facility] Casarez, Vlad, DO - 08/19/2023 EXAMINATION: CT OF THE ABDOMEN AND PELVIS [...] without bulky pelvic adenopathy or free fluid. Peritoneum/Retroperito neum: No bulky retroperitoneal adenopathy. No suspicious peritoneal [...] LFTs. considerations for underlying adenoma or hemangioma. [facility] Radiology Study observation (narrative) [facility] CT Abdomen and Pelvis W cont rast IVOrdered By: Vlad Casarez on 08-19-2023 [facility] Work Phone: Comp Metabolic Pr/rfx MGon 0 08-19-2023 Albumin [Mass/Vol] 4.4 g/dL Normal 3.5-5.2 [facility] Comment on above: Performed By: #### L ACTIC, CBCWD, CMPX, LIP #### [address] [address] Screw Machine Operator: Dayton Jimenez MD Alkaline Phos 58 U/L Normal 35-104 [facility] Comment on above: Performed By: #### L ACTIC, CBCWD, CMPX, LIP #### [address] [address] Screw Machine Operator: Dayton Jimenez MD ALT [Catalytic activity/Vol] 29 U/L Normal 0-32 [facility] Comment on above: Performed By: #### L ACTIC, CBCWD, CMPX, LIP #### [address] [address] Screw Machine Operator: Dayton Jimenez MD Anion gap [Moles/Vol] 10 mmol/L Normal 7-16 [facility] Comment on above: Performed By: #### L ACTIC, CBCWD, CMPX, LIP #### [address] [address] Screw Machine Operator: Dayton Jimenez MD AST [Catalytic activity/Vol] 23 U/L Normal 0-31 [facility] Comment on above: Performed By: #### L ACTIC, CBCWD, CMPX, LIP #### [address] [place] [address] Screw Machine Operator: Dayton Jimenez MD Bilirubin [Mass/Vol] 0.4 mg/dL Normal 0.0-1.2 [facility] Comment on above: Performed By: #### L ACTIC, CBCWD, CMPX, LIP #### [address] [address] Screw Machine Operator: Dayton Jimenez MD Calcium [Mass/Vol] 9.4 mg/dL Normal 8.6-10.2 [facility] Comment on above: Performed By: #### L ACTIC, CBCWD, CMPX, LIP #### [address] [address] Screw Machine Operator: Dayton Jimenez MD Chloride [Moles/Vol] 106 mmol/L Normal 98-107 [facility] Comment on above: Performed By: #### L ACTIC, CBCWD, CMPX, LIP #### [address] [address] Screw Machine Operator: Dayton Jimenez MD CO2 [Moles/Vol] 26 mmol/L Normal 22-29 [facility] Comment on above: Performed By: #### L ACTIC, CBCWD, CMPX, LIP #### [address] [address] Screw Machine Operator: Dayton Jimenez MD Creatinine [Mass/Vol] 0.9 mg/dL Normal 0.50-1.00 [facility] Comment on above: Performed By: #### L ACTIC, CBCWD, CMPX, LIP #### [address] [place] [address] Screw Machine Operator: Dayton Jimenez MD GFR/1.73 sq M.predicted among non-blacks MDRD (S/P/Bld) [Vol rate/Area] mL/min/{1.73_m2} Normal >60 [facility] Comment on above: Result Comment: These results [...] #### L ACTIC, CBCWD, CMPX, LIP #### [place] [address] Screw Machine Operator: Dayton Jimenez MD Glucose [Mass/Vol] 103 mg/dL High 74-99 [facility] Comment on above: Performed By: #### L ACTIC, CBCWD, CMPX, LIP #### [address] [address] Screw Machine Operator: Dayton Jimenez MD Potassium [Moles/Vol] 3.6 mmol/L Normal 3.5-5.0 [facility] Comment on above: Performed By: #### L ACTIC, CBCWD, CMPX, LIP #### [place] [address] Screw Machine Operator: Dayton Jimenez MD Protein [Mass/Vol] 7.5 g/dL Normal 6.4-8.3 [facility] Comment on above: Performed By: #### L ACTIC, CBCWD, CMPX, LIP #### [address] [address] Screw Machine Operator: Dayton Jimenez MD Sodium [Moles/Vol] 142 mmol/L Normal 132-146 [facility] Comment on above: Performed By: #### L ACTMELITA, CBCWD, CMPX, LIP #### [facility] [address] [facility] [place], [place] [id number] Screw Machine Operator: Dayton Jimenez MD Urea nitrogen [Mass/Vol] 7 mg/dL Normal 6-20 [facility] Comment on above: Performed By: #### L ACTIC, CBCWD, CMPX, LIP #### [facility] [address] [facility] [place] [address] Screw Machine Operator: Dayton Jmienez MD Comprehensive Metabolic Pane l w/ Reflex to MGon 08-19-2023 Albumin [Mass/Vol] 4.4 g/dL 3.5 - 5.2 g/dL [facility] ALP [Catalytic activity/Vol] 58 U/L 35 - 104 U/L [facility] ALT [Catalytic activity/Vol] 29 U/L 0 - 32 U/L [facility] Anion gap [Moles/Vol] 10 mmol/L 7 - 16 mmol/L [facility] AST [Catalytic activity/Vol] 23 U/L 0 - 31 U/L [facility] Bilirubin [Mass/Vol] 0.4 mg/dL 0.0 - 1 .2 mg/dL [facility] Calcium [Mass/Vol] 9.4 mg/dL 8.6 - 10. 2 mg/dL [facility] Chloride [Moles/Vol] 106 mmol/L 98 - 10 7 mmol/L [facility] CO2 [Moles/Vol] 26 mmol/L 22 - 29 mmol/L [facility] Creatinine [Mass/Vol] 0.9 mg/dL 0.50 - 1.00 mg/dL [facility] Est, Glom Filt Rate - PINF [facility] Comment on above: These results are not intended for use [...] following therapy that affects renal tubular secretion. Glucose [Mass/Vol] 103 mg/dL High 74 - 99 mg/dL [facility] Interpretation and review of laboratory results Abnormal [facility] Potassium [Moles/Vol] 3.6 mmol/L 3.5 - 5.0 mmol/L [facility] Protein [Mass/Vol] 7.5 g/dL 6.4 - 8.3 g/dL [facility] Sodium [Moles/Vol] 142 mmol/L 132 - 146 mmol/L [facility] Urea nitrogen [Mass/Vol] 7 mg/dL 6 - 20 mg/dL [facility] Lactic Acidon 08-19-2023 Lactate (BldV) [Moles/Vol] 0.7 mmol/L 0.5 - 2.2 mmol/L [facility] Lactate [Moles/Vol] 0.7 mmol/L Normal 0.5-2.2 [facility] Comment on above: Performed By: #### L ACTIC, CBCWD, CMPX, LIP #### [place] [id number] Screw Machine Operator: Dayton Jimenez MD Lipaseon 08-19-2023 Lipase [Catalytic activity/Vol] 25 U/L 13 - 60 U/L [facility] Lipase [Catalytic activity/Vol] 25 U/L Normal 13-60 [facility] Comment on above: Performed By: #### L ACTIC, CBCWD, CMPX, LIP #### [address] [address] Screw Machine Operator: Dayton Jimenez MD No Panel Informationon 08-18 [facility] POC Urine QualOrde red By: Natasha Mcfarland on 08-19-2023 Beta HCG ( test) Ql (U) Negative Negative [facility] Interpretation and review of laboratory results Normal [facility] Lot Number [id number] [facility] Negative QC Pass/Fail Pass [facility] Positive QC Pass/Fail Pass [facility] Urinalysison 08-19-2023 Bilirubin Ql (U) Negative [facility]IVE [facility] Clarity (U) Clear Clear [facility] Color (U) Yellow Yellow [facility] Comment Microscopic exam not performed based on chemical results unless requested in original order. [facility] Glucose Test strip (U) [Mass/Vol] Negative NEGATIVE mg/dL [facility] Hemoglobin Auto test strip Ql (U) Negative NEGATIVE [facility] Interpretation and review of laboratory results Abnormal [facility] Ketones (U) [Mass/Vol] Negative NEGATIVE mg/dL [facility] Leukocyte esterase Test strip Ql (U) Negative NEGATIVE [facility] Nitrite Ql (U) Negative NEGATIVE [facility] pH (U) 6.0 [pH] 5.0 - 9.0 [facility] Protein (U) [Mass/Vol] Negative NEGATIVE mg/dL [facility] Specific gravity (U) [Rel density] High 1.005 - 1.030 [facility] Urobilinogen Qn (U) 1.0 {Devin'U}/dL 0. 0 - 1.0 EU/dL [facility] Urinalysis, Routineon 2023 Bilirubin, SemiQt,Ur Negative Normal NEG [facility] Comment on above: Performed By: #### U A #### [address] [address] Screw Machine Operator: Dayton Jimenez MD Blood, Urine Negative Normal NEG [facility] Comment on above: Performed By: #### U A #### [address] [address] Screw Machine Operator: Dayton Jimenez MD Clarity (U) Clear Normal CLEAR [facility] Comment on above: Performed By: #### U A #### [address] [address] Screw Machine Operator: Dayton Jimenez MD Color (U) Yellow Normal YEL [facility] Comment on above: Performed By: #### U A #### [address] [place] [address] Screw Machine Operator: Dayton Jimenez MD Comment Microscopic exam not performed based on chemical results unless requested in Normal [facility] Comment on above: Result Comment: orig inal order. Performed By: #### U A #### [address] [address] Screw Machine Operator: Dayton Jimenez MD Glucose Ql (U) Negative Normal NEG [facility] Comment on above: Performed By: #### U A #### [address] [address] Screw Machine Operator: Dayton Jimenez MD Ketones Ql (U) Negative Normal NEG [facility] Comment on above: Performed By: #### U A #### [address] [place] [address] Screw Machine Operator: Dayton Jimenez MD Leukocyte esterase Test strip Ql (U) Negative Normal NEG [facility] Comment on above: Performed By: #### U A #### [address] [address] Screw Machine Operator: Dayton Jimenez MD Nitrite,Ur Negative Normal NEG [facility] Comment on above: Performed By: #### U A #### [address] [address] Screw Machine Operator: Dayton Jimenez MD PH,Ur 6.0 Normal 5.0-9.0 [facility] Comment on above: Performed By: #### U A #### [address] [id number] Screw Machine Operator: Dayton Jimenez MD Protein Ql (U) Negative Normal NEG [facility] Comment on above: Performed By: #### U A #### [address] [id number] Screw Machine Operator: Dayton Jimenez MD Spec. [place],Ur >1.030 High 1.005-1.030 [facility] Comment on above: Performed By: #### U A #### [address] [id number] Screw Machine Operator: Dayton Jimenez MD Urobilinogen,Ur 1.0 EU/dL Normal 0.0-1.0 [facility] Comment on above: Performed By: #### U A #### [place] [address] Screw Machine Operator: Dayton Jimenez MD OV 07-21-2023 CNOV Office Visit (UCTR ) CHANA DE LA O ([id number]) 1 F Date Time Provider Department 07/21/23 3:00 PM WILFRID LAURA [facility] During your visit today, we recorded the following information about you: Temperature Pulse Respiration Blood pressure 98.2 degrees 71/minute 16/minute 122/78 Weight 95 kg Wilfrid Laura APRN.SENIOR OCCUPATIONAL THERAPIST 07/21/2023 3:29 PM Signed Subjective HPI Nontoxic-appearing female presents urgent care chief complaint right thumb injury. Patient states closed finger in a car door today. Presents today for evaluation. Swelling and bruising has developed. Denies any other injuries. [id number]. No numbness no tingling. No decrease sensation. [...] of motio (more content not included)... Normal [facility] XR DIGIT 3V FRONTAL/LAT/OBL RTon 07-21-2023 XR [...] radiographic abnormalities seen in the first digit. Handle Turner: KOLBY Transcribe Date/Time: Jul 21 2023 3:12P Dictated by : LORRI MATTSON MD This examination was interpreted and the report reviewed and electronically signed by: LORRI MATTSON MD on Jul 21 2023 3:15PM EST [id number] Normal [facility] XR Finger - right AP and Lat eral and obliqueon 07-21-2023 IMPRESSION: No acute radiographic abnormalities seen in the first digit. Handle Turner: [facility] Transcribe Date/Time: Jul 21 2023 3:12P [...] soft tissue swelling. DIVISION OF RADIOLOGY Provider, Jayesh rosario [place] - 07/21/2023 * * *Final Report* * [...] radiographic abnormalities seen in the first digit. Handle Turner[facility] Transcribe Date/Time: Jul 21 2023 3:12P Dictated by : LORRI MATTSON MD This examination was interpreted and the report reviewed and electronically signed by: LORRI MATTSON MD on Jul 21 2023 3:15PM EST [facility] Radiology Study observation (narrative) [facility] XR Finger - right AP and Lat eral and obliqueOrdered By: Ccf Provider on 07-21-2023 [facility] Absolute lymphocyte countOrd ered By: Doe Dominguez on 06-13-2023 Lymphocytes Auto (Unsp spec) [#/Vol] 2.14 10*3/uL 0.83-4.51 [facility] Automated lymphocyte count a s percentage of total leukocytesOrdered By: Doe Dominguez on 06-13-2023 Lymphocytes/100 WBC Auto (Unsp spec) 17.2 % 19-41 [facility] Basophil percentageOrdered B y: Doe Dominguez on 06-13-2023 Basophil percentage 0 SEEN /hpf 0-5 [facility] Basophils/100 WBC (Bld) 0.5 % 0-1 [facility] Bilirubin [Mass/Vol] 0.40 mg/dL 0.20-1.00 [facility] Comment on above: For patients on eltr ombopag therapy, use of Dimension [place] TBIL is not recommended. Chloride [Moles/Vol] 107 mmol/L 98-107 [facility] Eosinophils/100 WBC (Bld) 1.7 % 0-5 [facility] Glucose [Mass/Vol] 98 mg/dL 74-106 [facility] Hemoglobin (Bld) [Mass/Vol] 13.7 g/dL 12.0-15.0 [facility] Monocytes/100 WBC (Bld) 4.4 % 0-10 [facility] Neutrophils (Bld) [#/Vol] 9.5 10*3/uL 2.0-7.7 [facility] Neutrophils/100 WBC (Bld) 75.9 % 47-70 [facility] Potassium [Moles/Vol] 3.5 mmol/L 3.5-5.1 [facility] Protein [Mass/Vol] 7.8 g/dL 6.4-8.2 [facility] Sodium [Moles/Vol] 139 mmol/L 136-145 [facility] WBC (Bld) [#/Vol] 12.5 10*3/uL 4.4-11.0 [facility] Bilirubin Test strip Ql (U)O rdered By: Doe Dominguez on 06-13-2023 Bilirubin Ql (U) Negative Negative [facility] Determination of erythrocyte mean corpuscular volume (MCV)Ordered By: Doe Dominguez on 06-13-2023 MCV (RBC) [Entitic vol] 81.3 fL 81-99 [facility] Erythrocyte distribution wid th ratioOrdered By: Doe Dominguez on 06-13-2023 Erythrocyte distribution width (RBC) [Ratio] 14.2 % 11.6-14.6 [facility] Erythrocyte distribution wid th standard deviationOrdered By: Doe Dominguez on 06-13-2023 Erythrocyte distribution width (RBC) [Entitic vol] 41.1 fL 35.1-43.9 [facility] Hematocrit Auto (Bld) [Volum e fraction]Ordered By: Doe Dominguez on 06-13-2023 Hematocrit (Bld) [Volume fraction] 41.3 % 37-47 [facility] Immature granulocytes/100 WB C Auto (Bld)Ordered By: Doe Dominguez on 06-13-2023 Immature granulocytes/100 WBC (Bld) 0.300 % 0.0-0.9 [facility] Comment on above: IG% - Immature Granu locytes (promyelocytes, myelocytes and metamyelocytes) > 1% indicates that a LEFT SHIFT is Present. Ketones Test strip Ql (U)Ord ered By: Doe Dominguez on 06-13-2023 Ketones Ql (U) 150 mg/dl Negative [facility] Comment on above: CRITICAL VALUE *H Laboratory - Chemistry and C hemistry - challengeOrdered By: Doe Dominguez on 06-13-2023 Albumin/Globulin [Mass ratio] 1.0 {ratio} 0.9-2.4 [facility] ALP [Catalytic activity/Vol] 66 U/L 45-117 [facility] ALT [Catalytic activity/Vol] 15 U/L 13-56 [facility] CO2 [Moles/Vol] 25.0 mmol/L 21.0-32.0 [facility] Globulin (S) [Mass/Vol] 3.9 g/dL 2.2-4.2 [facility] Lipase [Catalytic activity/Vol] 22 U/L 13-75 [facility] Comment on above: Please note:LIPASE r evised reference range effective 22. New Lipase methodology. Expected to produce lower values than the previous assay method. NEW Reference Range: 13 - 75 U/L Urea nitrogen/Creatinine [Mass ratio] 11.3 mg/mg 10-20 [facility] Laboratory - Hematology and Cell countsOrdered By: Doe Dominguez on 06-13-2023 MCH (RBC) [Entitic mass] 27.0 pg 27.0-32.0 [facility] MCHC (RBC) [Mass/Vol] 33.2 g/dL 32-36 [facility] Nucleated RBC/100 WBC (Bld) [Ratio] 0 % 0-5 [facility] Platelet mean volume (Bld) [Entitic vol] 11.0 fL 6.2-12.0 [facility] Platelets (Bld) [#/Vol] 343 10*3/uL 150-450 [facility] Mucus LM Ql (Urine sed)Order ed By: Doe Dominguez on 06-13-2023 Mucus Ql (Urine sed) 0 SEEN /hpf [facility] Nitrite Test strip Ql (U)Ord ered By: Doe Dominguez on 06-13-2023 Nitrite Ql (U) Negative Negative [facility] No Panel InformationOrdered By: Doe Dominguez on 06-13-2023 Urine RBC 0 SEEN /hpf 0-5 [facility] Estimated Creatinine Clearance Calc 115.31 ml/min [facility] Estimated GFR (MDRD) Amer 103 mL/min >60 [facility] Comment on above: GFR Calc Estimated GFR (MDRD) Non-Af Amer 85 mL/min >60 [facility] Comment on above: Non- GFR Calc Protein Test strip Ql (U)Ord ered By: Doe Dominguez on 06-13-2023 Protein Ql (U) 30 mg/dl Negative [facility] RBC Auto (Bld) [#/Vol]Ordere d By: Doe Dominguez on 06-13-2023 RBC (Bld) [#/Vol] 5.08 10*6/uL 4.2-5.4 [facility] Serum or plasma calcium ana urement (mass/volume)Ordered By: Doe Dominguez on 06-13-2023 Calcium [Mass/Vol] 8.8 mg/dL 8.5-10.1 [facility] Serum or plasma choriogonado tropin detectionOrdered By: Doe Dominguez on 06-13-2023 HCG ( test) Ql Negative [facility] Serum or plasma creatinine m easurement (mass/volume)Ordered By: Doe Dominguez on 06-13-2023 Creatinine [Mass/Vol] 0.88 mg/dL 0.55-1.02 [facility] Comment on above: The validity of the calculated GFR & GFRAA in patients over 70 years has not been determined. Clinical correlation is essential. Serum or plasma urea nitroge n measurement (mass/volume)Ordered By: Doe Dominguez on 06-13-2023 Urea nitrogen [Mass/Vol] 10 mg/dL 7-18 [facility] Squamous epithelial cells de tection in urine sediment by light microscopyOrdered By: Doe Dominguez on 06-13-2023 Epithelial cells.squamous LM Ql (Urine sed) 0-5 SEEN /hpf 5-10 [facility] Thin prep Papanicolaou smear with manual screeningOrdered By: Doe Dominguez on 06-13-2023 Thin prep Papanicolaou smear with manual screening 3.9 g/dL 3.2-5.0 [facility] Thin prep Papanicolaou smear with manual screening 14 U/L 15-37 [facility] Thin prep Papanicolaou smear with manual screening 7 5-15 [facility] Urine blood detectionOrdered By: Doe Dominguez on 06-13-2023 RBC Ql (U) Negative Negative [facility] Urine clarityOrdered By: Wild Dominguez on 06-13-2023 Clarity (U) Clear Clear [facility] Urine color determinationOrd ered By: Doe Dominguez on 06-13-2023 Color (U) Yellow Yellow [facility] Urine glucose detectionOrder ed By: Doe Dominguez on 06-13-2023 Glucose Ql (U) Normal mg/dl Normal [facility] Urine leukocyte esterase det ection by dipstickOrdered By: Doe Dominguez on 06-13-2023 Leukocyte esterase Test strip Ql (U) 25 /ul Negative [facility] Urine pHOrdered By: Doe york on 06-13-2023 pH (U) 6.5 [pH] 5.0 - 8.0 [facility] Urine sediment bacteria coun t by microscopy (number/high power field)Ordered By: Doe Dominguez on 06-13-2023 Bacteria LM.HPF (Urine sed) [#/Area] 0 /[HPF] None Seen [facility] Urine specific gravity measu rementOrdered By: Doe Dominguez on 06-13-2023 Specific gravity (U) [Rel density] 1.020 1.002-1.030 [facility] Urine urobilinogen measureme ntOrdered By: Doe Dominguez on 06-13-2023 Urobilinogen Ql (U) 1 mg/dl Normal [facility] STREP A MOLECULAR (POC)on Procedural Control Valid [facility] Strep A (POCT) Negative Negative [facility] Laboratory - Chemistry and C hemistry - challengeOrdered By: Pieter Purvis on 03-04-2023 HCG ( test) Ql (U) Negative [facility] Comment on above: Very dilute urine sp ecimens, as indicated by a low specificgravity, may not contain underwriting account representative levels of hCG. If is still suspected, a first morning urinespecimen should be collected 48 hours later and tested. Absolute lymphocyte countOrd ered By: Shwetha James on 02-26-2023 Lymphocytes Auto (Unsp spec) [#/Vol] 0.98 10*3/uL 0.83-4.51 [facility] Automated lymphocyte count a s percentage of total leukocytesOrdered By: Shwetha James on 02-26-2023 Lymphocytes/100 WBC Auto (Unsp spec) 12.8 % 19-41 [facility] Basophil percentageOrdered B y: Shwetha James on 02-26-2023 Basophils/100 WBC (Bld) 1.0 % 0-1 [facility] Bilirubin [Mass/Vol] 0.40 mg/dL 0.20-1.00 [facility] Comment on above: For patients on eltr ombopag therapy, use of Dimension [place] TBIL is not recommended. Chloride [Moles/Vol] 112 mmol/L 98-107 [facility] Eosinophils/100 WBC (Bld) 0.7 % 0-5 [facility] Glucose [Mass/Vol] 137 mg/dL 74-106 [facility] Comment on above: Fasting Glucose resu lt greater than or equal to 126 mg/dL suggests DIABETES MELLITUS per A.D.A. criteria. Hemoglobin (Bld) [Mass/Vol] 12.7 g/dL 12.0-15.0 [facility] Monocytes/100 WBC (Bld) 2.9 % 0-10 [facility] Neutrophils (Bld) [#/Vol] 6.3 10*3/uL 2.0-7.7 [facility] Neutrophils/100 WBC (Bld) 82.1 % 47-70 [facility] Potassium [Moles/Vol] 3.5 mmol/L 3.5-5.1 [facility] Protein [Mass/Vol] 7.5 g/dL 6.4-8.2 [facility] Sodium [Moles/Vol] 142 mmol/L 136-145 [facility] WBC (Bld) [#/Vol] 7.6 10*3/uL 4.4-11.0 [facility] Determination of erythrocyte mean corpuscular volume (MCV)Ordered By: Shwetha James on 02-26-2023 MCV (RBC) [Entitic vol] 79.3 fL 81-99 [facility] Erythrocyte distribution wid th ratioOrdered By: Shwetha James on 02-26-2023 Erythrocyte distribution width (RBC) [Ratio] 15.1 % 11.6-14.6 [facility] Erythrocyte distribution wid th standard deviationOrdered By: Shwetha James on 02-26-2023 Erythrocyte distribution width (RBC) [Entitic vol] 43.3 fL 35.1-43.9 [facility] Hematocrit Auto (Bld) [Volum e fraction]Ordered By: Shwetha James on 02-26-2023 Hematocrit (Bld) [Volume fraction] 39.1 % 37-47 [facility] Immature granulocytes/100 WB C Auto (Bld)Ordered By: Shwetha James on 02-26-2023 Immature granulocytes/100 WBC (Bld) 0.500 % 0.0-0.9 [facility] Comment on above: IG% - Immature Granu locytes (promyelocytes, myelocytes and metamyelocytes) > 1% indicates that a LEFT SHIFT is Present. Laboratory - Chemistry and C hemistry - challengeOrdered By: Shwetha James on 02-26-2023 Albumin/Globulin [Mass ratio] 1.0 {ratio} 0.9-2.4 [facility] ALP [Catalytic activity/Vol] 68 U/L 45-117 [facility] ALT [Catalytic activity/Vol] 23 U/L 13-56 [facility] CO2 [Moles/Vol] 24.0 mmol/L 21.0-32.0 [facility] Globulin (S) [Mass/Vol] 3.7 g/dL 2.2-4.2 [facility] Lipase [Catalytic activity/Vol] 24 U/L 13-75 [facility] Comment on above: Please note:LIPASE r evised reference range effective 22. New Lipase methodology. Expected to produce lower values than the previous assay method. NEW Reference Range: 13 - 75 U/L Urea nitrogen/Creatinine [Mass ratio] 9.9 mg/mg 10-20 [facility] Laboratory - Hematology and Cell countsOrdered By: Shwetha James on 02-26-2023 MCH (RBC) [Entitic mass] 25.8 pg 27.0-32.0 [facility] MCHC (RBC) [Mass/Vol] 32.5 g/dL 32-36 [facility] Nucleated RBC/100 WBC (Bld) [Ratio] 0 % 0-5 [facility] Platelets (Bld) [#/Vol] 315 10*3/uL 150-450 [facility] No Panel InformationOrdered By: Shwetha James on 02-26-2023 Estimated Creatinine Clearance Calc 135.99 ml/min [facility] Estimated GFR (MDRD) Amer 132 mL/min >60 [facility] Comment on above: GFR Calc Estimated GFR (MDRD) Non-Af Amer 109 mL/min >60 [facility] Comment on above: Non- GFR Calc Platelet mean volume Alexander-Ec ker (Bld) [Entitic vol]Ordered By: Shwetha James on 02-26-2023 Platelet mean volume (Bld) [Entitic vol] 10.4 fL 6.2-12.0 [facility] RBC Auto (Bld) [#/Vol]Ordere d By: Shwetha James on 02-26-2023 RBC (Bld) [#/Vol] 4.93 10*6/uL 4.2-5.4 [facility] Serum or plasma calcium ana urement (mass/volume)Ordered By: Shwetha James on 02-26-2023 Calcium [Mass/Vol] 8.9 mg/dL 8.5-10.1 [facility] Serum or plasma creatinine m easurement (mass/volume)Ordered By: Shwetha James on 02-26-2023 Creatinine [Mass/Vol] 0.71 mg/dL 0.55-1.02 [facility] Comment on above: The validity of the calculated GFR & GFRAA in patients over 70 years has not been determined. Clinical correlation is essential. Serum or plasma urea nitroge n measurement (mass/volume)Ordered By: Shwetha James on 02-26-2023 Urea nitrogen [Mass/Vol] 7 mg/dL 7-18 [facility] Thin prep Papanicolaou smear with manual screeningOrdered By: Shwetha James on 02-26-2023 Thin prep Papanicolaou smear with manual screening 3.8 g/dL 3.2-5.0 [facility] Thin prep Papanicolaou smear with manual screening 16 U/L 15-37 [facility] Thin prep Papanicolaou smear with manual screening 6 5-15 [facility] Absolute lymphocyte countOrd ered By: Ansley Ibrahim on 01-19-2023 Lymphocytes Auto (Unsp spec) [#/Vol] 2.91 10*3/uL 0.83-4.51 [facility] Basophil percentageOrdered B y: Ansley Ibrahim on 01-19-2023 Basophils/100 WBC (Bld) 0.3 % 0-1 [facility] Eosinophils/100 WBC (Bld) 1.0 % 0-5 [facility] Neutrophils (Bld) [#/Vol] 7.1 10*3/uL 2.0-7.7 [facility] Neutrophils/100 WBC (Bld) 64.2 % 47-70 [facility] WBC (Bld) [#/Vol] 11.1 10*3/uL 4.4-11.0 [facility] Blood erythrocytes count (nu mber/volume)Ordered By: Ansley Ibrahim on 01-19-2023 RBC (Bld) [#/Vol] 4.05 10*6/uL 4.2-5.4 [facility] Blood hemoglobin measurement (mass/volume)Ordered By: Ansley Ibrahim on 01-19-2023 Hemoglobin (Bld) [Mass/Vol] 10.6 g/dL 12.0-15.0 [facility] Blood lymphocytes/100 leukoc ytesOrdered By: Ansley Ibrahim on 01-19-2023 Lymphocytes/100 WBC (Bld) 26.1 % 19-41 [facility] Blood monocytes/100 leukocyt esOrdered By: Ansley Ibrahim on 01-19-2023 Monocytes/100 WBC (Bld) 7.5 % 0-10 [facility] Blood platelet mean volumeOr dered By: Ansley Ibrahim on 01-19-2023 Platelet mean volume (Bld) [Entitic vol] 10.6 fL 6.2-12.0 [facility] Determination of erythrocyte mean corpuscular volume (MCV)Ordered By: Ansley Ibrahim on 01-19-2023 MCV (RBC) [Entitic vol] 79.8 fL 81-99 [facility] Hematocrit Auto (Bld) [Volum e fraction]Ordered By: Ansley Ibrahim on 01-19-2023 Hematocrit (Bld) [Volume fraction] 32.3 % 37-47 [facility] Laboratory - Hematology and Cell countsOrdered By: Ansley Ibrahim on 01-19-2023 Erythrocyte distribution width (RBC) [Entitic vol] 43.2 fL 35.1-43.9 [facility] Erythrocyte distribution width (RBC) [Ratio] 15.0 % 11.6-14.6 [facility] Immature granulocytes/100 WBC (Bld) 0.900 % 0.0-0.9 [facility] Comment on above: IG% - Immature Granu locytes (promyelocytes, myelocytes and metamyelocytes) > 1% indicates that a LEFT SHIFT is Present. MCH (RBC) [Entitic mass] 26.2 pg 27.0-32.0 [facility] Nucleated RBC/100 WBC (Bld) [Ratio] 0 % 0-5 [facility] MCHC Auto (RBC) [Mass/Vol]Or dered By: Ansley Ibrahim on 01-19-2023 MCHC (RBC) [Mass/Vol] 32.8 g/dL 32-36 [facility] Platelets bldOrdered By: Varsha Ibrahim on 01-19-2023 Platelets (Bld) [#/Vol] 261 10*3/uL 150-450 [facility] HIV 1 and HIV-2 antibody ass ay with HIV-1 p24 antigen detectionOrdered By: Ansley Ibrahim on 01-18-2023 HIV 1+2 Ab+HIV1 p24 Ag IA Ql Non-Reactive Nonreactive [facility] Laboratory - Drug toxicology Ordered By: Donna Granados on 01-18-2023 Benzodiazepines Ql (U) Negative < 200 ng/mL [facility] Cannabinoids Screen Ql (U) Positive < 50 ng/mL [facility] Cocaine Ql (U) Negative < 300 ng/mL [facility] Opiates Ql (U) Negative < 300 ng/mL [facility] No Panel InformationOrdered By: Donna Granados on 01-18-2023 MDMA (Ecstasy) Screen Negative < 500 ng/mL [facility] Urine Barbiturates Screen Negative < 200 ng/mL [facility] Urine Drug Screen Comment [facility] Comment on above: CONFIRMATORY TESTING FOR ALL POSITIVE URINE DRUG SCREENRESULTS WILL ONLY BE SENT OUT UPON PHYSICIAN ORDER. VISTA Urine Drug Screen methods provide only preliminaryanalytical test results. A more specific alternate chemicalmethod must be used in order to obtain a confirmedanalytical result. Gas chromatography/mass spectrometery(GC/MS) is the preferred confirmatory method. Clinicalconsideration and professional judgement should be appliedto any drug of abuse test result, particularly whenpreliminary positive results are used. URINE TCA TESTING MUST BE ORDERED SEPARATELY. USE TESTMNEMONIC: [facility] Urine Methadone Screen Negative < 300 ng/mL [facility] No Panel InformationOrdered By: Ansley Ibrahim on 01-18-2023 Hepatitis C Antibody Non-Reactive Nonreactive [facility] Comment on above: Non Reactive: < 0.8 Equivocal: >/= 0.8 to < 1.0 Reactive: >/= 1.0The CDC recommends that a reactive/equivocal HCV antibody result be followed up by the HCV Nucleic Acid Amplificationtest (997214) Serum Treponema species anti body detectionOrdered By: Donna Granados on 01-18-2023 Treponema sp Ab Ql (S) Non-Reactive [facility] Urine amphetamine measuremen t (moles/volume)Ordered By: Donna Granados on 01-18-2023 Amphetamine (U) [Moles/Vol] Negative <1000 ng/mL [facility] Urine phencyclidine (PCP) de tectionOrdered By: Donna Granados on 01-18-2023 Phencyclidine Ql (U) Negative < 25 ng/mL [facility] URINE OB DIP B/Oon 3 Glucose Ql (U) Negative Neg mg/dL [facility] Protein.monoclonal (U) [Mass/Vol] Negative Neg mg/dL [facility] URINE OB DIP B/Oon 3 Glucose Ql (U) Negative Neg mg/dL [facility] Protein.monoclonal (U) [Mass/Vol] Negative Neg mg/dL [facility] BIOPHYSICAL PROFILE [facility] 01-10-2023 [facility] BIOPHYSICAL PROFILE [facility] 01-05-2023 [facility] URINE OB DIP B/Oon 3 Glucose Ql (U) Negative Neg mg/dL [facility] Protein.monoclonal (U) [Mass/Vol] Negative Neg mg/dL [facility] URINE OB DIP B/Oon 3 Glucose Ql (U) Negative Neg mg/dL [facility] Protein.monoclonal (U) [Mass/Vol] Negative Neg mg/dL [facility] BIOPHYSICAL PROFILE [facility] 12-28-2022 [facility] CNDSon 12-27-2022 CNDS HNO ID: [id number] Author: Rudolph Roy MD Service: Obstetrics Author Type: Physician Type: Discharge Summary Filed: 12/27/2022 1:53 PM Note Text: DISCHARGE SUMMARY OBSTETRICS PATIENT NAME: Chana De La O ADMISSION DATE: 12/23/2022 DISCHARGE DATE: 12/27/2022 Attending Physician: Dr. Roy Code Status: Not on file Maternal Obstetric [...] vaginal bleeding. She was a transfer from [place] after she had an episode of a [...] episode. She will follow-up with her primary REPAIRER AND CHECKER and maternal- medicine. She will require twice [...] reviewed the hospital course and agree. Rudolph Roy MD [facility] NURSING PROGon 12-27-2022 NURSING PROG HNO ID: [id number] Author: Katherine Mabry RN Service: ? Author Type: Registered Nurse Type: Nursing Progress Note Filed: 12/27/2022 9:53 AM Note Text: DC instructions reviewed. Pt to F/U tomorrow. Pt to return if further bleeding, cramping, s/s infection. Normal [facility] CONSULTon 12-24-2022 CONSULT HNO ID: [id number] Author: Malathi Aleman DO Service: Neonatology Author Type: Physician Type: Consults Filed: 12/24/2022 9:40 AM Note Text: NEONATOLOGY CONSULT SERVICE DATE: 12/24/2022 Admission Date: 12/23/2022 SERVICE TIME: 939 Date of : 2000 Age: [age] year old Sex: female Primary Care Physician: No primary care provider on file. Consulting Bdr: Malathi Aleman DO Subjective Consultation for this [...] Need for supplemental nutrition and/or IVFs: Yes Impression/Recommendat ions Assessment: 34 weeks vaginal bleeding and IUGR Plan: family updated in detail at bedside. Discussed discharge criteria in detail. Please keep NICU team updated regarding delivery status. Thank you for consult. Physician [id number] total time, including discussion: 45 minutes, more than 50 % of time devoted to coordination of care and/or counseling. SIGNATURE: Malathi Aleman DO PATIENT NAME: Chana De La O DATE: December 24, 2022 TIME: 9:37 AM Normal [facility] OBSTETRIC ULTRASOUND WHIon 1 02-23-2022 [facility] ANTIBODY ID PATIENTon 2022 ANTIBODY IDENTIFIED Passively acq Anti-D Normal [facility] Comment on above: Order Comment: Speci men Type: BLOOD SPECIMENOrdering Facility: [facility] Address: [address] [place] [address] [place] [id number] Performed By: #### T SPN, %BRUNO ####[facility] BLOOD BANKCLIA [id number] [place] [address] [place] Absolute lymphocyte countOrd ered By: Chani Hernandez on 12-23-2022 Lymphocytes Auto (Unsp spec) [#/Vol] 2.12 10*3/uL 0.83-4.51 [facility] Basophil percentageOrdered B y: Chani Hernandez on 12-23-2022 Basophils/100 WBC (Bld) 0.2 % 0-1 [facility] Eosinophils/100 WBC (Bld) 1.8 % 0-5 [facility] Neutrophils (Bld) [#/Vol] 9.2 10*3/uL 2.0-7.7 [facility] Neutrophils/100 WBC (Bld) 75.1 % 47-70 [facility] WBC (Bld) [#/Vol] 12.3 10*3/uL 4.4-11.0 [facility] Blood erythrocytes count (nu mber/volume)Ordered By: Chani Hernandez on 12-23-2022 RBC (Bld) [#/Vol] 4.36 10*6/uL 4.2-5.4 [facility] Blood hemoglobin measurement (mass/volume)Ordered By: Chani Hernandez on 12-23-2022 Hemoglobin (Bld) [Mass/Vol] 11.4 g/dL 12.0-15.0 [facility] Blood lymphocytes/100 leukoc ytesOrdered By: Chani Hernandez on 12-23-2022 Lymphocytes/100 WBC (Bld) 17.2 % 19-41 [facility] Blood monocytes/100 leukocyt esOrdered By: Chani Hernandez on 12-23-2022 Monocytes/100 WBC (Bld) 4.8 % 0-10 [facility] Blood platelet mean volumeOr dered By: Chani Hernandez on 12-23-2022 Platelet mean volume (Bld) [Entitic vol] 11.1 fL 6.2-12.0 [facility] CBC panel Auto (Bld)on 12-23 Erythrocyte distribution width (RBC) [Ratio] 14.0 % Normal 11.5-15.0 [facility] Comment on above: Order Comment: Speci men Type: BLOOD SPECIMEN Ordering Facility: [facility] Address: [address] [place] [address] Performed By: #### 5 8410-2 #### [facility] CLIA [id number] [address] STATES OF [facility] Hematocrit (Bld) [Volume fraction] 34.6 % Low 36.0-46.0 [facility] Comment on above: Order Comment: Speci men Type: BLOOD SPECIMEN Ordering Facility: [facility] Address: [address] [place] [address] Performed By: #### 5 8410-2 #### [facility] CLIA [id number] [address] [place] [facility] Hemoglobin (Bld) [Mass/Vol] 11.5 g/dL Normal 11.5-15.5 [facility] Comment on above: Order Comment: Speci men Type: BLOOD SPECIMEN Ordering Facility: [facility] Address: [address] [place] [address] Performed By: #### 5 8410-2 #### [facility] CLIA [id number] [address] [place] MCH (RBC) [Entitic mass] 26.1 pg Normal 26.0-34.0 [facility] Comment on above: Order Comment: Speci men Type: BLOOD SPECIMEN Ordering Facility: [facility] Address: [address] [place] [address] Performed By: #### 5 8410-2 #### [facility] CLIA [id number] [address] [place] MCHC (RBC) [Mass/Vol] 33.2 g/dL Normal 30.5-36.0 [facility] Comment on above: Order Comment: Speci men Type: BLOOD SPECIMEN Ordering Facility: [facility] Address: [address] [place] [address] Performed By: #### 5 8410-2 #### [facility] CLIA [id number] [address] MCV (RBC) [Entitic vol] 78.6 fL Low 80.0-100.0 [facility] Comment on above: Order Comment: Speci men Type: BLOOD SPECIMEN Ordering Facility: [facility] Address: [address] [place] [address] Performed By: #### 5 8410-2 #### [facility] CLIA [id number] [address] OF [facility] Nucleated RBC (Bld) [#/Vol] 10*3/uL Normal <0.01 [facility] Comment on above: Order Comment: Speci men Type: BLOOD SPECIMEN Ordering Facility: [facility] Address: [address] [place] [address] Performed By: #### 5 8410-2 #### [facility] CLIA [id number] [address] Platelet mean volume (Bld) [Entitic vol] 10.8 fL Normal 9.0-12.7 [facility] Comment on above: Order Comment: Speci men Type: BLOOD SPECIMEN Ordering Facility: [facility] Address: [address] [place] [address] Performed By: #### 5 8410-2 #### [facility] CLIA [id number] [address] Platelets (Bld) [#/Vol] 281 10*3/uL Normal 150-400 [facility] Comment on above: Order Comment: Speci men Type: BLOOD SPECIMEN Ordering Facility: [facility] Address: [address] [place] [address] Performed By: #### 5 8410-2 #### [facility] CLIA [id number] [address] RBC (Bld) [#/Vol] 4.40 10*6/uL Normal 3.90-5.20 [facility] Comment on above: Order Comment: Speci men Type: BLOOD SPECIMEN Ordering Facility: [facility] Address: [place] [address] Performed By: #### 5 8410-2 #### [facility] CLIA [id number] [address] WBC (Bld) [#/Vol] 14.13 10*3/uL High 3.70-11.00 [facility] Comment on above: Order Comment: Silver mars Type: BLOOD SPECIMEN Ordering Facility: [facility] Address: [place] [address] Performed By: #### 5 8410-2 #### [facility] CLIA [id number] [address] Determination of erythrocyte mean corpuscular volume (MCV)Ordered By: Chani Hernandez on 12-23-2022 MCV (RBC) [Entitic vol] 80.0 fL 81-99 [facility] Fibrinogen PPP-mCncon 2022 Fibrinogen Coag (PPP) [Mass/Vol] 516 mg/dL High 200-400 [facility] Comment on above: Order Comment: Silver mars Type: BLOOD SPECIMENOrdering Facility: [facility] Address: [place] [address] Performed By: #### 3 255-7, 43578-9, 52581-3 ####[facility] LABORATORYCLIA [id number] [address] HISTORY PHYSICALon 3 HISTORY PHYSICAL HNO ID: [id number] Author: Dania Ozuna MD Service: Obstetrics Author [...] diarrhea : No dysuria, frequency or incontinence UNPAID INTERN: Negative for abnormal vaginal bleeding, abnormal vaginal discha (more content not included)... Normal [facility] Hematocrit Auto (Bld) [Volum e fraction]Ordered By: Chani Hernandez on 12-23-2022 Hematocrit (Bld) [Volume fraction] 34.9 % 37-47 [facility] INR in Blood by Coagulation assayOrdered By: Chani Hernandez on 12-23-2022 INR Coag (Bld) [Relative time] 1.0 {INR} [facility] Laboratory - CoagulationOrde red By: Chani Hernandez on 12-23-2022 aPTT Coag (Bld) [Time] 32.0 s 24.1-36.2 [facility] PT Coag (PPP) [Time] 13.6 s 11.7-14.9 [facility] Laboratory - Hematology and Cell countsOrdered By: Chani Hernandez on 12-23-2022 Erythrocyte distribution width (RBC) [Entitic vol] 40.4 fL 35.1-43.9 [facility] Erythrocyte distribution width (RBC) [Ratio] 13.9 % 11.6-14.6 [facility] Immature granulocytes/100 WBC (Bld) 0.900 % 0.0-0.9 [facility] Comment on above: IG% - Immature Granu locytes (promyelocytes, myelocytes and metamyelocytes) > 1% indicates that a LEFT SHIFT is Present. MCH (RBC) [Entitic mass] 26.1 pg 27.0-32.0 [facility] Nucleated RBC/100 WBC (Bld) [Ratio] 0 % 0-5 [facility] MCHC Auto (RBC) [Mass/Vol]Or dered By: Chani Hernandez on 12-23-2022 MCHC (RBC) [Mass/Vol] 32.7 g/dL 32-36 [facility] No Panel InformationOrdered By: Chani Hernandez on 12-23-2022 Fibrinogen 542 mg/dl 203-444 [facility] PT panel Coag (PPP)on 2022 INR Coag (PPP) [Relative time] 1.0 {INR} Normal 0.9-1.3 [facility] Comment on above: Order Comment: Silver mars Type: BLOOD SPECIMENOrdering Facility: [facility] Address: [place] [address] Result Comment: Shamika min K Antagonist (VKA) Therapeutic Range: INR 2 to 3 (Target INR of 2.5) Note: For patients treated with VKA drugs, such as warfarin, the [place] [employer] 2012 Guideline recommends [...] to 3.5 (target INR of 3). Rebecca AQUINO, et al. Chest 2012, 141:7S-47S Yaneth RA, et al. [facility] 2017, 70: 252-289 Performed By: #### 3 255-7, 34651-0, 72653-4 ####[facility] LABORATORYCLIA [id number] [place] [address] [place] PT Coag (PPP) [Time] 10.7 s Normal 9.7-13.0 [facility] Comment on above: Order Comment: Silver mars Type: BLOOD SPECIMENOrdering Facility: [facility] Address: [place] [address] Performed By: #### 3 255-7, 13135-5, 95898-5 ####[facility] LABORATORYCLIA [id number] [place] [address] [place] Platelets bldOrdered By: Caroline Hernandez on 12-23-2022 Platelets (Bld) [#/Vol] 292 10*3/uL 150-450 [facility] TYPE + SCREEN PRENATALon ABO A Normal [facility] Comment on above: Order Comment: Speci men Type: BLOOD SPECIMENOrdering Facility: [facility] Address: [address] [place] [address] Performed By: #### T SPN, %BRUNO ####[facility] BLOOD BANKCLIA [id number] [place] [id number] [facility] HISTORICAL AB SCR STATUS Negative Normal [facility] Comment on above: Order Comment: Speci men Type: BLOOD SPECIMENOrdering Facility: [facility] Address: [address] [place] [address] Performed By: #### T SPN, %BRUNO ####[facility] BLOOD BANKCLIA [id number] [address] Rh Nom (Bld) Negative Normal [facility] Comment on above: Order Comment: Speci men Type: BLOOD SPECIMENOrdering Facility: [facility] Address: [address] [place] [address] Performed By: #### T SPN, %BRUNO ####[facility] BLOOD BANKCLIA [id number] [address] TYPE AND SCREEN EXPIRATION 12/26/2022 23:59 Normal [facility] Comment on above: Order Comment: Speci men Type: BLOOD SPECIMENOrdering Facility: [facility] Address: [address] [place] [address] Performed By: #### T SPN, %BRUNO ####[facility] BLOOD BANKCLIA [id number] [address] [place] aPTT PPPon 12-23-2022 aPTT Coag (PPP) [Time] 29.4 s Normal 23.0-32.4 [facility] Comment on above: Order Comment: Speci men Type: BLOOD SPECIMENOrdering Facility: [facility] Address: [address] [place] [address] Performed By: #### 3 255-7, 48138-5, 99060-7 ####[facility] LABORATORYCLIA [id number] [address] No Panel InformationOrdered By: Donna Granados on 12-20-2022 Group B Streptococcus Culture Group B Beta Streptococcus is not isolated. [facility] Specimen Comment (Misc) Not Reportable [facility] Vaginal Amniotic Fluid Detection Negative Negative [facility] Comment on above: Amniotic fluid not p resent indicates No Rupture of FetalMembranes at time of specimen collection. Thin prep Papanicolaou smear with manual screeningOrdered By: Donna Granados on 12-20-2022 Thin prep Papanicolaou smear with manual screening Negative Negative [facility] URINE OB DIP B/Oon 3 Glucose Ql (U) Negative Neg mg/dL [facility] Protein.monoclonal (U) [Mass/Vol] Negative Neg mg/dL [facility] URINE OB DIP B/Oon 3 Glucose Ql (U) Negative Neg mg/dL [facility] Protein.monoclonal (U) [Mass/Vol] Negative Neg mg/dL [facility] URINE OB DIP B/Oon 3 Glucose Ql (U) Negative Neg mg/dL [facility] Protein.monoclonal (U) [Mass/Vol] Negative Neg mg/dL [facility] Absolute lymphocyte countOrd ered By: Davis Dorman on 11-06-2022 Lymphocytes Auto (Unsp spec) [#/Vol] 2.05 10*3/uL 0.83-4.51 [facility] Basophil percentageOrdered B y: Davis Dorman on 11-06-2022 Basophils/100 WBC (Bld) 0.5 % 0-1 [facility] Chloride [Moles/Vol] 108 mmol/L 98-107 [facility] Eosinophils/100 WBC (Bld) 2.2 % 0-5 [facility] Glucose [Mass/Vol] 84 mg/dL 74-106 [facility] Neutrophils (Bld) [#/Vol] 6.1 10*3/uL 2.0-7.7 [facility] Neutrophils/100 WBC (Bld) 67.2 % 47-70 [facility] Potassium [Moles/Vol] 3.6 mmol/L 3.5-5.1 [facility] Sodium [Moles/Vol] 135 mmol/L 136-145 [facility] WBC (Bld) [#/Vol] 9.1 10*3/uL 4.4-11.0 [facility] Blood erythrocytes count (nu mber/volume)Ordered By: Davis Dorman on 11-06-2022 RBC (Bld) [#/Vol] 4.34 10*6/uL 4.2-5.4 [facility] Blood hemoglobin measurement (mass/volume)Ordered By: Davis Dorman on 11-06-2022 Hemoglobin (Bld) [Mass/Vol] 11.8 g/dL 12.0-15.0 [facility] Blood lymphocytes/100 leukoc ytesOrdered By: Davis Dorman on 11-06-2022 Lymphocytes/100 WBC (Bld) 22.5 % 19-41 [facility] Blood monocytes/100 leukocyt esOrdered By: Davis Dorman on 11-06-2022 Monocytes/100 WBC (Bld) 7.1 % 0-10 [facility] Blood platelet mean volumeOr dered By: Davis Dorman on 11-06-2022 Platelet mean volume (Bld) [Entitic vol] 10.8 fL 6.2-12.0 [facility] Determination of erythrocyte mean corpuscular volume (MCV)Ordered By: Davis Dorman on 11-06-2022 MCV (RBC) [Entitic vol] 82.0 fL 81-99 [facility] Hematocrit Auto (Bld) [Volum e fraction]Ordered By: Davis Dorman on 11-06-2022 Hematocrit (Bld) [Volume fraction] 35.6 % 37-47 [facility] Laboratory - Chemistry and C hemistry - challengeOrdered By: Davis Dorman on 11-06-2022 CO2 [Moles/Vol] 24.0 mmol/L 21.0-32.0 [facility] Urea nitrogen/Creatinine [Mass ratio] 10.3 mg/mg 10-20 [facility] Laboratory - Hematology and Cell countsOrdered By: Davis Dorman on 11-06-2022 Erythrocyte distribution width (RBC) [Entitic vol] 40.3 fL 35.1-43.9 [facility] Erythrocyte distribution width (RBC) [Ratio] 13.6 % 11.6-14.6 [facility] Immature granulocytes/100 WBC (Bld) 0.500 % 0.0-0.9 [facility] Comment on above: IG% - Immature Granu locytes (promyelocytes, myelocytes and metamyelocytes) > 1% indicates that a LEFT SHIFT is Present. MCH (RBC) [Entitic mass] 27.2 pg 27.0-32.0 [facility] Nucleated RBC/100 WBC (Bld) [Ratio] 0 % 0-5 [facility] MCHC Auto (RBC) [Mass/Vol]Or dered By: Davis Dorman on 11-06-2022 MCHC (RBC) [Mass/Vol] 33.1 g/dL 32-36 [facility] No Panel InformationOrdered By: Davis Dorman on 11-06-2022 Estimated Creatinine Clearance Calc 163.42 ml/min [facility] Estimated GFR (MDRD) Amer 205 mL/min >60 [facility] Comment on above: GFR Calc Estimated GFR (MDRD) Non-Af Amer 169 mL/min >60 [facility] Comment on above: Non- GFR Calc Platelets bldOrdered By: Eugene Dorman on 11-06-2022 Platelets (Bld) [#/Vol] 260 10*3/uL 150-450 [facility] Serum or plasma calcium ana urement (mass/volume)Ordered By: Davis Dorman on 11-06-2022 Calcium [Mass/Vol] 8.1 mg/dL 8.5-10.1 [facility] Serum or plasma creatinine m easurement (mass/volume)Ordered By: Davis Dorman on 11-06-2022 Creatinine [Mass/Vol] 0.49 mg/dL 0.55-1.02 [facility] Comment on above: The validity of the calculated GFR & GFRAA in patients over 70 years has not been determined. Clinical correlation is essential. Serum or plasma urea nitroge n measurement (mass/volume)Ordered By: Davis Dorman on 11-06-2022 Urea nitrogen [Mass/Vol] 5 mg/dL 7-18 [facility] Thin prep Papanicolaou smear with manual screeningOrdered By: Davis Dorman on 11-06-2022 Thin prep Papanicolaou smear with manual screening 3 5-15 [facility] GEST GLUC SCREEN, 1-HR, 50 G M, NON-FASTINGon 10-21-2022 Glucose 1hr Gest [facility] Gestational diabetes screen 1-hour screen with 50g oral glucose loadOrdered By: Mike Rodriguez on 10-21-2022 Glucose 1 Hr post 50 g glucose PO [Mass/Vol] 74 mg/dL 70-140 [facility] Absolute lymphocyte countOrd ered By: Pieter Smith on 10-19-2022 Lymphocytes Auto (Unsp spec) [#/Vol] 1.80 10*3/uL 0.83-4.51 [facility] Basophil percentageOrdered B y: Pieter Smith on 10-19-2022 Basophil percentage 0-5 SEEN /hpf 0-5 [facility] Basophils/100 WBC (Bld) 0.4 % 0-1 [facility] Bilirubin [Mass/Vol] 0.30 mg/dL 0.20-1.00 [facility] Comment on above: For patients on eltr ombopag therapy, use of Dimension [place] TBIL is not recommended. Chloride [Moles/Vol] 107 mmol/L 98-107 [facility] Eosinophils/100 WBC (Bld) 1.3 % 0-5 [facility] Glucose [Mass/Vol] 89 mg/dL 74-106 [facility] Neutrophils (Bld) [#/Vol] 7.9 10*3/uL 2.0-7.7 [facility] Neutrophils/100 WBC (Bld) 75.7 % 47-70 [facility] Potassium [Moles/Vol] 3.9 mmol/L 3.5-5.1 [facility] Protein [Mass/Vol] 6.8 g/dL 6.4-8.2 [facility] Sodium [Moles/Vol] 139 mmol/L 136-145 [facility] WBC (Bld) [#/Vol] 10.4 10*3/uL 4.4-11.0 [facility] Bilirubin Test strip Ql (U)O rdered By: Pieter Smith on 10-19-2022 Bilirubin Ql (U) Negative Negative [facility] Blood erythrocytes count (nu mber/volume)Ordered By: Pieter Smith on 10-19-2022 RBC (Bld) [#/Vol] 4.18 10*6/uL 4.2-5.4 [facility] Blood hemoglobin measurement (mass/volume)Ordered By: Pieter Smith on 10-19-2022 Hemoglobin (Bld) [Mass/Vol] 11.6 g/dL 12.0-15.0 [facility] Blood lymphocytes/100 leukoc ytesOrdered By: Pieter Smith on 10-19-2022 Lymphocytes/100 WBC (Bld) 17.3 % 19-41 [facility] Blood monocytes/100 leukocyt esOrdered By: Pieter Smith on 10-19-2022 Monocytes/100 WBC (Bld) 4.7 % 0-10 [facility] Blood platelet mean volumeOr dered By: Pieter Smith on 10-19-2022 Platelet mean volume (Bld) [Entitic vol] 10.7 fL 6.2-12.0 [facility] Determination of erythrocyte mean corpuscular volume (MCV)Ordered By: Pieter Smith on 10-19-2022 MCV (RBC) [Entitic vol] 82.8 fL 81-99 [facility] Hematocrit Auto (Bld) [Volum e fraction]Ordered By: Pieter Smith on 10-19-2022 Hematocrit (Bld) [Volume fraction] 34.6 % 37-47 [facility] Ketones Test strip Ql (U)Ord ered By: Pieter Smith on 10-19-2022 Ketones Ql (U) 50 mg/dl Negative [facility] Laboratory - Chemistry and C hemistry - challengeOrdered By: Pieter Smith on 10-19-2022 ALP [Catalytic activity/Vol] 85 U/L 45-117 [facility] ALT [Catalytic activity/Vol] 12 U/L 13-56 [facility] CO2 [Moles/Vol] 27.0 mmol/L 21.0-32.0 [facility] Globulin (S) [Mass/Vol] 4.0 g/dL 2.2-4.2 [facility] Urea nitrogen/Creatinine [Mass ratio] 7.3 mg/mg 10-20 [facility] - Hematology and Cell countsOrdered By: Pieter Smith on 10-19-2022 Erythrocyte distribution width (RBC) [Entitic vol] 41.6 fL 35.1-43.9 [facility] Erythrocyte distribution width (RBC) [Ratio] 14.2 % 11.6-14.6 [facility] Immature granulocytes/100 WBC (Bld) 0.600 % 0.0-0.9 [facility] Comment on above: IG% - Immature Granu locytes (promyelocytes, myelocytes and metamyelocytes) > 1% indicates that a LEFT SHIFT is Present. MCH (RBC) [Entitic mass] 27.8 pg 27.0-32.0 [facility] Nucleated RBC/100 WBC (Bld) [Ratio] 0 % 0-5 [facility] MCHC Auto (RBC) [Mass/Vol]Or dered By: Pieter Smith on 10-19-2022 MCHC (RBC) [Mass/Vol] 33.5 g/dL 32-36 [facility] Mucus LM Ql (Urine sed)Order ed By: Pieter Smith on 10-19-2022 Mucus Ql (Urine sed) RARE /hpf [facility] [place] Nitrite Test strip Ql (U)Ord ered By: Pieter Smith on 10-19-2022 Nitrite Ql (U) Negative Negative [facility] No Panel InformationOrdered By: Pieter Smith on 10-19-2022 Estimated Creatinine Clearance Calc 145.59 ml/min [facility] Estimated GFR (MDRD) Amer 178 mL/min >60 [facility] Comment on above: GFR Calc Estimated GFR (MDRD) Non-Af Amer 147 mL/min >60 [facility] Comment on above: Non- GFR Calc Platelets bldOrdered By: Eusebia Smith on 10-19-2022 Platelets (Bld) [#/Vol] 261 10*3/uL 150-450 [facility] Protein Test strip Ql (U)Ord ered By: Pieter Smith on 10-19-2022 Protein Ql (U) 15 mg/dl Negative [facility] Serum or plasma albumin ana urement (mass/volume)Ordered By: Pieter Smith on 10-19-2022 Albumin [Mass/Vol] 2.8 g/dL 3.2-5.0 [facility] Serum or plasma albumin/glob ulin mass ratioOrdered By: Pieter Smith on 10-19-2022 Albumin/Globulin [Mass ratio] 0.7 {ratio} 0.9-2.4 [facility] Serum or plasma calcium ana urement (mass/volume)Ordered By: Pieter Smith on 10-19-2022 Calcium [Mass/Vol] 8.4 mg/dL 8.5-10.1 [facility] Serum or plasma creatinine m easurement (mass/volume)Ordered By: Pieter Smith on 10-19-2022 Creatinine [Mass/Vol] 0.55 mg/dL 0.55-1.02 [facility] Comment on above: The validity of the calculated GFR & GFRAA in patients over 70 years has not been determined. Clinical correlation is essential. Serum or plasma urea nitroge n measurement (mass/volume)Ordered By: Pieter Smith on 10-19-2022 Urea nitrogen [Mass/Vol] 4 mg/dL 7-18 [facility] Squamous epithelial cells de tection in urine sediment by light microscopyOrdered By: Pieter Smith on 10-19-2022 Epithelial cells.squamous LM Ql (Urine sed) 5-10 SEEN /hpf 5-10 [facility] Thin prep Papanicolaou smear with manual screeningOrdered By: Pieter Smith on 10-19-2022 Thin prep Papanicolaou smear with manual screening 6 U/L 15-37 [facility] Thin prep Papanicolaou smear with manual screening 5 5-15 [facility] Urine blood detectionOrdered By: Pieter Smith on 10-19-2022 RBC Ql (U) Negative Negative [facility] RBC Ql (U) 0 SEEN /hpf 0-5 [facility] Urine clarityOrdered By: Eusebia Smith on 10-19-2022 Clarity (U) Sl. Cloudy Clear [facility] Urine color determinationOrd ered By: Pieter Smith on 10-19-2022 Color (U) Yellow Yellow [facility] Urine glucose detectionOrder ed By: Pieter Smith on 10-19-2022 Glucose Ql (U) Normal mg/dl Normal [facility] Urine leukocyte esterase det ection by dipstickOrdered By: Pieter Smith on 10-19-2022 Leukocyte esterase Test strip Ql (U) 25 /ul Negative [facility] Urine pHOrdered By: Pieter michael on 10-19-2022 pH (U) 8.0 [pH] 5.0 - 8.0 [facility] Urine sediment bacteria coun t by microscopy (number/high power field)Ordered By: Pieter Simth on 10-19-2022 Bacteria LM.HPF (Urine sed) [#/Area] 1 /[HPF] None Seen [facility] Urine specific gravity measu rementOrdered By: Pieter Smith on 10-19-2022 Specific gravity (U) [Rel density] 1.010 1.002-1.030 [facility] Urobilinogen Auto test strip Ql (U)Ordered By: Pieter Smith on 10-19-2022 Urobilinogen Ql (U) 1 mg/dl Normal [facility] Absolute lymphocyte countOrd ered By: Hamzah Holden on 10-14-2022 Lymphocytes Auto (Unsp spec) [#/Vol] 2.01 10*3/uL 0.83-4.51 [facility] Basophil percentageOrdered B y: Hamzah Holden on 10-14-2022 Basophils/100 WBC (Bld) 0.4 % 0-1 [facility] Bilirubin [Mass/Vol] 0.30 mg/dL 0.20-1.00 [facility] [place] Comment on above: For patients on eltr ombopag therapy, use of Dimension [place] TBIL is not recommended. Chloride [Moles/Vol] 109 mmol/L 98-107 [facility] [place] Eosinophils/100 WBC (Bld) 2.0 % 0-5 [facility] Glucose [Mass/Vol] 83 mg/dL 74-106 [facility] Neutrophils (Bld) [#/Vol] 7.7 10*3/uL 2.0-7.7 [facility] Neutrophils/100 WBC (Bld) 73.1 % 47-70 [facility] Potassium [Moles/Vol] 4.2 mmol/L 3.5-5.1 [facility] Protein [Mass/Vol] 7.2 g/dL 6.4-8.2 [facility] Sodium [Moles/Vol] 138 mmol/L 136-145 [facility] WBC (Bld) [#/Vol] 10.5 10*3/uL 4.4-11.0 [facility] Blood erythrocytes count (nu mber/volume)Ordered By: Hamzah Holden on 10-14-2022 RBC (Bld) [#/Vol] 4.55 10*6/uL 4.2-5.4 [facility] Blood hemoglobin measurement (mass/volume)Ordered By: Hamzah Holden on 10-14-2022 Hemoglobin (Bld) [Mass/Vol] 12.3 g/dL 12.0-15.0 [facility] Blood lymphocytes/100 leukoc ytesOrdered By: Hamzah Holden on 10-14-2022 Lymphocytes/100 WBC (Bld) 19.1 % 19-41 [facility] Blood monocytes/100 leukocyt esOrdered By: Hamzah Holden on 10-14-2022 Monocytes/100 WBC (Bld) 4.8 % 0-10 [facility] Blood platelet mean volumeOr dered By: Hamzah Holden on 10-14-2022 Platelet mean volume (Bld) [Entitic vol] 10.6 fL 6.2-12.0 [facility] Determination of erythrocyte mean corpuscular volume (MCV)Ordered By: Hamzah Holden on 10-14-2022 MCV (RBC) [Entitic vol] 83.5 fL 81-99 [facility] Hematocrit Auto (Bld) [Volum e fraction]Ordered By: Hamzah Holden on 10-14-2022 Hematocrit (Bld) [Volume fraction] 38.0 % 37-47 [facility] Laboratory - Chemistry and C hemistry - challengeOrdered By: Hamzah Holden on 10-14-2022 ALP [Catalytic activity/Vol] 90 U/L 45-117 [facility] ALT [Catalytic activity/Vol] 12 U/L 13-56 [facility] CO2 [Moles/Vol] 23.0 mmol/L 21.0-32.0 [facility] Globulin (S) [Mass/Vol] 4.4 g/dL 2.2-4.2 [facility] Lipase [Catalytic activity/Vol] 24 U/L 13-75 [facility] Comment on above: Please note:LIPASE r evised reference range effective 22. New Lipase methodology. Expected to produce lower values than the previous assay method. NEW Reference Range: 13 - 75 U/L Urea nitrogen/Creatinine [Mass ratio] 8.6 mg/mg 10-20 [facility] - Hematology and Cell countsOrdered By: Hamzah Holden on 10-14-2022 Erythrocyte distribution width (RBC) [Entitic vol] 43.1 fL 35.1-43.9 [facility] Erythrocyte distribution width (RBC) [Ratio] 14.1 % 11.6-14.6 [facility] Immature granulocytes/100 WBC (Bld) 0.600 % 0.0-0.9 [facility] Comment on above: IG% - Immature Granu locytes (promyelocytes, myelocytes and metamyelocytes) > 1% indicates that a LEFT SHIFT is Present. MCH (RBC) [Entitic mass] 27.0 pg 27.0-32.0 [facility] Nucleated RBC/100 WBC (Bld) [Ratio] 0 % 0-5 [facility] MCHC Auto (RBC) [Mass/Vol]Or dered By: Hamzah Holden on 10-14-2022 MCHC (RBC) [Mass/Vol] 32.4 g/dL 32-36 [facility] No Panel InformationOrdered By: Hamzah Holden on 10-14-2022 Estimated Creatinine Clearance Calc 138.06 ml/min [facility] Estimated GFR (MDRD) Amer 167 mL/min >60 [facility] Comment on above: GFR Calc Estimated GFR (MDRD) Non-Af Amer 138 mL/min >60 [facility] Comment on above: Non- GFR Calc Platelets bldOrdered By: Dmitry Holden on 10-14-2022 Platelets (Bld) [#/Vol] 255 10*3/uL 150-450 [facility] Serum or plasma albumin ana urement (mass/volume)Ordered By: Hamzah Holden on 10-14-2022 Albumin [Mass/Vol] 2.8 g/dL 3.2-5.0 [facility] Serum or plasma albumin/glob ulin mass ratioOrdered By: Hamzah Holden on 10-14-2022 Albumin/Globulin [Mass ratio] 0.6 {ratio} 0.9-2.4 [facility] Serum or plasma calcium ana urement (mass/volume)Ordered By: Hamzah Holden on 10-14-2022 Calcium [Mass/Vol] 8.7 mg/dL 8.5-10.1 [facility] Serum or plasma creatinine m easurement (mass/volume)Ordered By: Hamzah Holden on 10-14-2022 Creatinine [Mass/Vol] 0.58 mg/dL 0.55-1.02 [facility] Comment on above: The validity of the calculated GFR & GFRAA in patients over 70 years has not been determined. Clinical correlation is essential. Serum or plasma urea nitroge n measurement (mass/volume)Ordered By: Hamzah Holden on 10-14-2022 Urea nitrogen [Mass/Vol] 5 mg/dL 7-18 [facility] Thin prep Papanicolaou smear with manual screeningOrdered By: Hamzah Holden on 10-14-2022 Thin prep Papanicolaou smear with manual screening 10 U/L 15-37 [facility] Thin prep Papanicolaou smear with manual screening 6 5-15 [facility] Absolute lymphocyte countOrd ered By: Hamzah Holden on 09-13-2022 Lymphocytes Auto (Unsp spec) [#/Vol] 1.77 10*3/uL 0.83-4.51 [facility] Basophil percentageOrdered B y: Hamzah Holden on 09-13-2022 Basophil percentage 10-25 SEEN /hpf 0-5 [facility] Basophils/100 WBC (Bld) 0.4 % 0-1 [facility] Bilirubin [Mass/Vol] 0.30 mg/dL 0.20-1.00 [facility] [place] Comment on above: For patients on eltr ombopag therapy, use of [place] TBIL is not recommended. Chloride [Moles/Vol] 108 mmol/L 98-107 [facility] [place] Eosinophils/100 WBC (Bld) 2.7 % 0-5 [facility] Glucose [Mass/Vol] 93 mg/dL 74-106 [facility] Neutrophils (Bld) [#/Vol] 7.7 10*3/uL 2.0-7.7 [facility] Neutrophils/100 WBC (Bld) 74.9 % 47-70 [facility] Potassium [Moles/Vol] 4.1 mmol/L 3.5-5.1 [facility] Protein [Mass/Vol] 7.4 g/dL 6.4-8.2 [facility] Sodium [Moles/Vol] 135 mmol/L 136-145 [facility] WBC (Bld) [#/Vol] 10.2 10*3/uL 4.4-11.0 [facility] Bilirubin Test strip Ql (U)O rdered By: Hamzah Holden on 09-13-2022 Bilirubin Ql (U) Negative Negative [facility] Blood erythrocytes count (nu mber/volume)Ordered By: Hamzah Holden on 09-13-2022 RBC (Bld) [#/Vol] 4.58 10*6/uL 4.2-5.4 [facility] Blood hemoglobin measurement (mass/volume)Ordered By: Hamzah Holden on 09-13-2022 Hemoglobin (Bld) [Mass/Vol] 12.7 g/dL 12.0-15.0 [facility] Blood lymphocytes/100 leukoc ytesOrdered By: Hamzah Holden on 09-13-2022 Lymphocytes/100 WBC (Bld) 17.3 % 19-41 [facility] Blood monocytes/100 leukocyt esOrdered By: Hamzah Holden on 09-13-2022 Monocytes/100 WBC (Bld) 4.3 % 0-10 [facility] Blood platelet mean volumeOr dered By: Hamzah Holden on 09-13-2022 Platelet mean volume (Bld) [Entitic vol] 10.7 fL 6.2-12.0 [facility] Culture, urineOrdered By: William Holden on 09-13-2022 Bacteria identified Cx Nom (U) Positive [facility] Bacteria identified Cx Nom (U) Positive [facility] Determination of erythrocyte mean corpuscular volume (MCV)Ordered By: Hamzah Holden on 09-13-2022 MCV (RBC) [Entitic vol] 80.1 fL 81-99 [facility] Hematocrit Auto (Bld) [Volum e fraction]Ordered By: Hamzah Holden on 09-13-2022 Hematocrit (Bld) [Volume fraction] 36.7 % 37-47 [facility] Ketones Test strip Ql (U)Ord ered By: Hamzah Holden on 09-13-2022 Ketones Ql (U) Negative Negative [facility] Laboratory - Chemistry and C hemistry - challengeOrdered By: Hamzah Holden on 08-07-2023 ALP [Catalytic activity/Vol] 75 U/L 45-117 [facility] ALT [Catalytic activity/Vol] 12 U/L 13-56 [facility] CO2 [Moles/Vol] 21.0 mmol/L 21.0-32.0 [facility] Globulin (S) [Mass/Vol] 4.4 g/dL 2.2-4.2 [facility] Lipase [Catalytic activity/Vol] 20 U/L 13-75 [facility] Comment on above: Please note:LIPASE r evised reference range effective 22. New Lipase methodology. Expected to produce lower values than the previous assay method. NEW Reference Range: 13 - 75 U/L Urea nitrogen/Creatinine [Mass ratio] 9.2 mg/mg 10-20 [facility] - Hematology and Cell countsOrdered By: Hamzah Holden on 09-13-2022 Erythrocyte distribution width (RBC) [Entitic vol] 41.6 fL 35.1-43.9 [facility] Erythrocyte distribution width (RBC) [Ratio] 14.5 % 11.6-14.6 [facility] Immature granulocytes/100 WBC (Bld) 0.400 % 0.0-0.9 [facility] Comment on above: IG% - Immature Granu locytes (promyelocytes, myelocytes and metamyelocytes) > 1% indicates that a LEFT SHIFT is Present. MCH (RBC) [Entitic mass] 27.7 pg 27.0-32.0 [facility] Nucleated RBC/100 WBC (Bld) [Ratio] 0 % 0-5 [facility] MCHC Auto (RBC) [Mass/Vol]Or dered By: Hamzah Holden on 09-13-2022 MCHC (RBC) [Mass/Vol] 34.6 g/dL 32-36 [facility] Mucus LM Ql (Urine sed)Order ed By: Hamzah Holden on 09-13-2022 Mucus Ql (Urine sed) 0 SEEN /hpf [facility] Nitrite Test strip Ql (U)Ord ered By: Hamzah Holden on 09-13-2022 Nitrite Ql (U) Negative Negative [facility] No Panel InformationOrdered By: Hamzah Holden on 09-13-2022 Estimated Creatinine Clearance Calc 181.99 ml/min [facility] Estimated GFR (MDRD) Amer 232 mL/min >60 [facility] Comment on above: GFR Calc Estimated GFR (MDRD) Non-Af Amer 192 mL/min >60 [facility] Comment on above: Non- GFR Calc Platelets bldOrdered By: Dmitry Holden on 09-13-2022 Platelets (Bld) [#/Vol] 273 10*3/uL 150-450 [facility] Protein Test strip Ql (U)Ord ered By: Hamzah Holden on 09-13-2022 Protein Ql (U) 30 mg/dl Negative [facility] Serum or plasma albumin ana urement (mass/volume)Ordered By: Hamzah Holden on 09-13-2022 Albumin [Mass/Vol] 3.0 g/dL 3.2-5.0 [facility] Serum or plasma albumin/glob ulin mass ratioOrdered By: Hamzah Holden on 09-13-2022 Albumin/Globulin [Mass ratio] 0.7 {ratio} 0.9-2.4 [facility] Serum or plasma calcium ana urement (mass/volume)Ordered By: Hamzah Holden on 09-13-2022 Calcium [Mass/Vol] 8.5 mg/dL 8.5-10.1 [facility] Serum or plasma creatinine m easurement (mass/volume)Ordered By: Hamzah Holden on 09-13-2022 Creatinine [Mass/Vol] 0.44 mg/dL 0.55-1.02 [facility] Comment on above: The validity of the calculated GFR & GFRAA in patients over 70 years has not been determined. Clinical correlation is essential. Serum or plasma urea nitroge n measurement (mass/volume)Ordered By: Hamzah Holden on 09-13-2022 Urea nitrogen [Mass/Vol] 4 mg/dL 7-18 [facility] Squamous epithelial cells de tection in urine sediment by light microscopyOrdered By: Hamzah Holden on 09-13-2022 Epithelial cells.squamous LM Ql (Urine sed) 5-10 SEEN /hpf 5-10 [facility] Thin prep Papanicolaou smear with manual screeningOrdered By: Hamzah Holden on 09-13-2022 Thin prep Papanicolaou smear with manual screening 8 U/L 15-37 [facility] Thin prep Papanicolaou smear with manual screening 6 5-15 [facility] Urine blood detectionOrdered By: Hamzah Holden on 09-13-2022 RBC Ql (U) Negative Negative [facility] RBC Ql (U) 0 SEEN /hpf 0-5 [facility] Urine clarityOrdered By: Dmitry Hodlen on 09-13-2022 Clarity (U) Clear Clear [facility] Urine color determinationOrd ered By: Hamzah Holden on 09-13-2022 Color (U) Yellow Yellow [facility] Urine glucose detectionOrder ed By: Hamzah Holden on 09-13-2022 Glucose Ql (U) Normal mg/dl Normal [facility] Urine leukocyte esterase det ection by dipstickOrdered By: Hamzah Holden on 09-13-2022 Leukocyte esterase Test strip Ql (U) 500 /ul Negative [facility] Urine pHOrdered By: Hamzah Holden on 09-13-2022 pH (U) 6.0 [pH] 5.0 - 8.0 [facility] Urine sediment bacteria coun t by microscopy (number/high power field)Ordered By: Hamzah Holden on 09-13-2022 Bacteria LM.HPF (Urine sed) [#/Area] 1 /[HPF] None Seen [facility] Urine specific gravity measu rementOrdered By: Hamzah Holden on 09-13-2022 Specific gravity (U) [Rel density] 1.015 1.002-1.030 [facility] Urobilinogen Auto test strip Ql (U)Ordered By: Hamzah Holden on 09-13-2022 Urobilinogen Ql (U) Normal mg/dl Normal [facility] STREP A MOLECULAR (POC)on Procedural Control Valid [facility] Strep A (POCT) Negative Negative [facility] UA DIP, URINE (POC)on 2022 BILIRUBIN UA (POCT) Negative Negative [facility] CLARITY UA (POCT) Clear [facility] COLOR UA (POCT) Yellow [facility] GLUCOSE UA (POCT) Negative Negative mg/dL [facility] HEMOGLOBIN/BLOOD UA (POCT) Negative Negative [facility] KETONE UA (POCT) Negative Negative mg/dL [facility] LEUKOCYTES UA (POCT) Trace Abnormal Negative [facility] NITRITE UA (POCT) Negative Negative [facility] PH UA (POCT) 6.0 4.5 - 8.0 [facility] Protein Ql (U) Negative Negative mg/dL [facility] SPECIFIC GRAVITY UA (POCT) 1.025 1.005 - 1.030 [facility] UROBILINOGEN UA (POCT) 0.2 E.U./dL Normal E.U./dL [facility] Absolute lymphocyte countOrd ered By: Dr. Stanley on 08-01-2022 Lymphocytes Auto (Unsp spec) [#/Vol] 1.81 10*3/uL 0.83-4.51 [facility] Basophil percentageOrdered B y: Dr. Stanley on 08-01-2022 Basophils/100 WBC (Bld) 0.4 % 0-1 [facility] Bilirubin [Mass/Vol] 0.30 mg/dL 0.20-1.00 [facility] [place] Comment on above: For patients on eltr ombopag therapy, use of Dim[place] TBIL is not recommended. Chloride [Moles/Vol] 108 mmol/L 98-107 [facility] [place] Eosinophils/100 WBC (Bld) 1.3 % 0-5 [facility] Glucose [Mass/Vol] 93 mg/dL 74-106 [facility] Neutrophils (Bld) [#/Vol] 7.8 10*3/uL 2.0-7.7 [facility] Neutrophils/100 WBC (Bld) 75.6 % 47-70 [facility] Potassium [Moles/Vol] 3.7 mmol/L 3.5-5.1 [facility] Protein [Mass/Vol] 7.5 g/dL 6.4-8.2 [facility] Sodium [Moles/Vol] 138 mmol/L 136-145 [facility] WBC (Bld) [#/Vol] 10.3 10*3/uL 4.4-11.0 [facility] Blood erythrocytes count (nu mber/volume)Ordered By: Dr. Stanley on 08-01-2022 RBC (Bld) [#/Vol] 4.57 10*6/uL 4.2-5.4 [facility] Blood hemoglobin measurement (mass/volume)Ordered By: Dr. Stanley on 08-01-2022 Hemoglobin (Bld) [Mass/Vol] 12.3 g/dL 12.0-15.0 [facility] Blood lymphocytes/100 leukoc ytesOrdered By: Dr. Stanley on 08-01-2022 Lymphocytes/100 WBC (Bld) 17.7 % 19-41 [facility] Blood monocytes/100 leukocyt esOrdered By: Dr. Stanley on 08-01-2022 Monocytes/100 WBC (Bld) 4.5 % 0-10 [facility] Blood platelet mean volumeOr dered By: Dr. Stanley on 08-01-2022 Platelet mean volume (Bld) [Entitic vol] 11.4 fL 6.2-12.0 [facility] Determination of erythrocyte mean corpuscular volume (MCV)Ordered By: Dr. Stanley on 08-01-2022 MCV (RBC) [Entitic vol] 80.5 fL 81-99 [facility] Hematocrit Auto (Bld) [Volum e fraction]Ordered By: Dr. Stanley on 08-01-2022 Hematocrit (Bld) [Volume fraction] 36.8 % 37-47 [facility] Laboratory - Chemistry and C hemistry - challengeOrdered By: Dr. Stanley on 08-01-2022 ALP [Catalytic activity/Vol] 65 U/L 45-117 [facility] ALT [Catalytic activity/Vol] 9 U/L 13-56 [facility] CO2 [Moles/Vol] 23.0 mmol/L 21.0-32.0 [facility] Globulin (S) [Mass/Vol] 4.2 g/dL 2.2-4.2 [facility] Lipase [Catalytic activity/Vol] 137 U/L 13-75 [facility] Comment on above: Please note:LIPASE r evised reference range effective 22. New Lipase methodology. Expected to produce lower values than the previous assay method. NEW Reference Range: 13 - 75 U/L Urea nitrogen/Creatinine [Mass ratio] 10.1 mg/mg 10-20 [facility] - Hematology and Cell countsOrdered By: Dr. Stanley on 08-01-2022 Erythrocyte distribution width (RBC) [Entitic vol] 43.1 fL 35.1-43.9 [facility] Erythrocyte distribution width (RBC) [Ratio] 14.7 % 11.6-14.6 [facility] Immature granulocytes/100 WBC (Bld) 0.500 % 0.0-0.9 [facility] Comment on above: IG% - Immature Granu locytes (promyelocytes, myelocytes and metamyelocytes) > 1% indicates that a LEFT SHIFT is Present. MCH (RBC) [Entitic mass] 26.9 pg 27.0-32.0 [facility] Nucleated RBC/100 WBC (Bld) [Ratio] 0 % 0-5 [facility] MCHC Auto (RBC) [Mass/Vol]Or dered By: Dr. Stanley on 08-01-2022 MCHC (RBC) [Mass/Vol] 33.4 g/dL 32-36 [facility] No Panel InformationOrdered By: Dr. Stanley on 08-01-2022 Estimated Creatinine Clearance Calc 135.72 ml/min [facility] Estimated GFR (MDRD) Amer 164 mL/min >60 [facility] Comment on above: GFR Calc Estimated GFR (MDRD) Non-Af Amer 135 mL/min >60 [facility] Comment on above: Non- GFR Calc Platelets bldOrdered By: Dr. Stanley on 08-01-2022 Platelets (Bld) [#/Vol] 258 10*3/uL 150-450 [facility] Serum or plasma albumin ana urement (mass/volume)Ordered By: Dr. Stanley on 08-01-2022 Albumin [Mass/Vol] 3.3 g/dL 3.2-5.0 [facility] Serum or plasma albumin/glob ulin mass ratioOrdered By: Dr. Stanley on 08-01-2022 Albumin/Globulin [Mass ratio] 0.8 {ratio} 0.9-2.4 [facility] Serum or plasma calcium ana urement (mass/volume)Ordered By: Dr. Stanley on 08-01-2022 Calcium [Mass/Vol] 8.9 mg/dL 8.5-10.1 [facility] Serum or plasma creatinine m easurement (mass/volume)Ordered By: Dr. Stanley on 08-01-2022 Creatinine [Mass/Vol] 0.59 mg/dL 0.55-1.02 [facility] Comment on above: The validity of the calculated GFR & GFRAA in patients over 70 years has not been determined. Clinical correlation is essential. Serum or plasma urea nitroge n measurement (mass/volume)Ordered By: Dr. Stanley on 08-01-2022 Urea nitrogen [Mass/Vol] 6 mg/dL 08-24 [facility] Thin prep Papanicolaou smear with manual screeningOrdered By: Dr. Stanley on 08-01-2022 Thin prep Papanicolaou smear with manual screening 9 U/L [facility] Thin prep Papanicolaou smear with manual screening 7 5-15 [facility] BILIRUBIN DIRECTon 3 Bilirubin.conjugated [Mass/Vol] 0.1 mg/dL Normal <=0.2 [facility] Comment on above: Performed By: #### 2 4323-8, 3040-3, 77573-0, 80092-9 #### [place] [address] [place] [address] [facility] - Sheron HENRYIA [id number] CBC W Auto Differential pane l (Bld)on 07-11-2022 Basophils (Bld) [#/Vol] 0.04 10*3/uL Normal <=0.70 [facility] Comment on above: Performed By: #### 5 7021-8 #### [place] [address] [facility] - Sheron Lundy CLIA [id number] Basophils/100 WBC (Bld) 0.4 % Normal <=2.0 [facility] Comment on above: Performed By: #### 5 7021-8 #### [place] [address] R[facility] Orthopedic - Sheron Lundy CLIA [id number] Eosinophils (Bld) [#/Vol] 0.10 10*3/uL Normal <=0.70 [facility] Comment on above: Performed By: #### 5 7021-8 #### [place] [address] [facility] - Sheron HENRYIA [id number] Eosinophils/100 WBC (Bld) 1.1 % Normal <=10.0 [facility] Comment on above: Performed By: #### 5 7021-8 #### [facility] [address] [facility]. [place] [address] Rn Orthopedic - Sheron HENRYIA [id number] Erythrocyte distribution width (RBC) [Entitic vol] 43.0 fL Normal 36.4-46.3 [facility] Comment on above: Performed By: #### 5 7021-8 #### [address] [place] [address] R[facility] Orthopedic - Sheron HENRYIA [id number] Hematocrit (Bld) [Volume fraction] 38.1 % Normal 37.0-47.0 [facility] Comment on above: Performed By: #### 5 7021-8 #### [address] [place] [address] R[facility] Orthopedic - Sheron HENRYIA [id number] Hemoglobin (Bld) [Mass/Vol] 13.2 g/dL Normal 12.0-16.0 [facility] Comment on above: Performed By: #### 5 7021-8 #### [address] Director - Sheron Lundy CLIA [id number] Immature granulocytes (Bld) [#/Vol] 0.04 10*3/uL Normal <=0.10 [facility] Comment on above: Performed By: #### 5 7021-8 #### [address] Director - Sheron Lundy CLIA [id number] Immature granulocytes/100 WBC (Bld) 0.40 % Normal <=1.50 [facility] Comment on above: Performed By: #### 5 7021-8 #### [address] Director - Sheron Lundy CLIA [id number] Lymphocytes (Bld) [#/Vol] 1.47 10*3/uL Normal 1.20-3.40 [facility] Comment on above: Performed By: #### 5 7021-8 #### [facility] [address] [place] [address] R[facility] Orthopedic - Sheron HENRYIA [id number] Lymphocytes/100 WBC (Bld) 15.9 % Low 20.0-40.0 [facility] Comment on above: Performed By: #### 5 7021-8 #### [place] [address] [place] [address] R[facility] Orthopedic - Sheron HENRYIA [id number] MCH (RBC) [Entitic mass] 27.2 pg Normal 27.0-31.0 [facility] Comment on above: Performed By: #### 5 7021-8 #### [place] [address] [place] [address] Rn Orthopedic - Sheron HOANG [id number] MCHC (RBC) [Mass/Vol] 34.6 g/dL Normal 32.0-36.0 [facility] Comment on above: Performed By: #### 5 7021-8 #### [place] [address] [place] [address] R[facility] Orthopedic - Sheron HENRYIA [id number] MCV (RBC) [Entitic vol] 78.6 fL Low 80.0-100.0 [facility] Comment on above: Performed By: #### 5 7021-8 #### [place] [address] [place] [address] R[facility] Orthopedic - Sheron HENRYIA [id number] Monocytes (Bld) [#/Vol] 0.42 10*3/uL Normal 0.10-0.60 [facility] Comment on above: Performed By: #### 5 7021-8 #### [place] [address] [place] [address] Rn Orthopedic - Sheron HENRYIA [id number] Monocytes/100 WBC (Bld) 4.5 % Normal <=8.0 [facility] Comment on above: Performed By: #### 5 7021-8 #### [place] [address] [place] [address] R[facility] Orthopedic - Sheron HENRYIA [id number] Neutrophils (Bld) [#/Vol] 7.18 10*3/uL High 1.40-6.50 [facility] Comment on above: Performed By: #### 5 7021-8 #### [facility] [address] [place] [address] Rn Orthopedic - Sheron HENRYIA [id number] Neutrophils/100 WBC (Bld) 77.7 % High 50.0-70.0 [facility] Comment on above: Performed By: #### 5 7021-8 #### [address] [place] [address] R[facility] Orthopedic - Sheron HENRYIA [id number] Nucleated RBC (Bld) [#/Vol] 0.00 10*3/uL Normal <=0.10 [facility] Comment on above: Performed By: #### 5 7021-8 #### [address] [place] [address] Rn Orthopedic - Sheron HENRYIA [id number] Platelet mean volume (Bld) [Entitic vol] 11.1 fL Normal 9.0-13.0 [facility] Comment on above: Performed By: #### 5 7021-8 #### [address] [place] [address] Rn Orthopedic - Sheron HENRYIA [id number] Platelets (Bld) [#/Vol] 285 10*3/uL Normal 130-400 [facility] Comment on above: Performed By: #### 5 7021-8 #### [address] [place] [address] Rn Orthopedic - Sheron HENRYIA [id number] RBC (Bld) [#/Vol] 4.85 10*6/uL Normal 4.00-6.30 [facility] Comment on above: Performed By: #### 5 7021-8 #### [address] [place] [address] Rn Orthopedic - Sheron Lundy CLIA [id number] WBC (Bld) [#/Vol] 9.25 10*3/uL Normal 4.80-10.80 [facility] Comment on above: Performed By: #### 5 7021-8 #### [facility] [address] [place] [address] Rn Orthopedic - Sheron HOANG [id number] Comprehensive metabolic 2000 panelon 07-11-2022 Albumin [Mass/Vol] 3.7 g/dL Normal 3.4-5.0 [facility] Comment on above: Performed By: #### 2 4323-8, 3040-3, 08102-5, 23880-4 #### [facility] [address] [place] [address] Rn Orthopedic - Sheron HOANG [id number] ALP [Catalytic activity/Vol] 55 U/L Normal 50-136 [facility] Comment on above: Performed By: #### 2 4323-8, 3040-3, 33039-7, 92417-3 #### [facility] [address] [place] [address] Rn Orthopedic - Sheron HOANG [id number] ALT [Catalytic activity/Vol] 22 U/L Normal 14-59 [facility] Comment on above: Performed By: #### 2 4323-8, 3040-3, , 23975-7 #### [facility] [address] [place] [address] Rn Orthopedic - Sheron HOANG [id number] Anion gap [Moles/Vol] 7.0 mmol/L Normal <=15.0 [facility] Comment on above: Performed By: #### 2 4323-8, 3040-3, 41293-6, 15645-3 #### [facility] [address] [place] [address] Rn Orthopedic - Sheron HENRYIA [id number] AST [Catalytic activity/Vol] 9 U/L Low 15-37 [facility] Comment on above: Performed By: #### 2 4323-8, 3040-3, 99392-1, 28685-3 #### [facility] [address] [place] [address] Rn Orthopedic - Sheron HENRYIA [id number] Bilirubin [Mass/Vol] 0.4 mg/dL Normal 0.2-1.0 [facility] Comment on above: Performed By: #### 2 4323-8, 3040-3, , 59324-8 #### [facility] [address] [place] [address] Rn Orthopedic - Sheron HENRYIA [id number] Calcium [Mass/Vol] 9.2 mg/dL Normal 8.5-10.1 [facility] Comment on above: Performed By: #### 2 4323-8, 0-3, , 41511-9 #### [facility] [address] [place] [address] Rn Orthopedic - Sheron HENRYIA [id number] Chloride [Moles/Vol] 108 mmol/L High 98-107 [facility] Comment on above: Performed By: #### 2 4323-8, 0-3, , 70449-1 #### [facility] [address] [place] [address] Rn Orthopedic - Sheron HENRYIA [id number] CO2 [Moles/Vol] 22 mmol/L Normal 21-32 [facility] Comment on above: Performed By: #### 2 4323-8, 3040-3, , 17098-4 #### [facility] [address] [place] [address] Rn Orthopedic - Sheron HENRYIA [id number] Creatinine [Mass/Vol] 0.58 mg/dL Normal 0.51-0.95 [facility] Comment on above: Performed By: #### 2 4323-8, 3040-3, , 32186-7 #### [facility] [address] [place] [address] Rn Orthopedic - Sheron HENRYIA [id number] GFR/1.73 sq M.predicted MDRD (S/P/Bld) [Vol rate/Area] mL/min/{1.73_m2} Normal >=59 [facility] Comment on above: Performed By: #### 2 4323-8, 3040-3, , 17377-1 #### [facility] [address] [place] [address] Rn Orthopedic - Sheron HOANG [id number] Glucose [Mass/Vol] 91 mg/dL Normal 74-106 [facility] Comment on above: Performed By: #### 2 4323-8, 0-3, , 35566-1 #### [facility] [address] [place] [address] Rn Orthopedic - Sheron HOANG [id number] HGFR GLOMERULAR FILTRATIO N RATE INTERPRETATION~The eGFR [...] months, with or without kidney damage.~ Normal [facility] Comment on above: Performed By: #### 2 4323-8, 0-3, , 72913-6 #### [facility] [address] [place] [address] Rn Orthopedic - Sheron HOANG [id number] Potassium [Moles/Vol] 3.8 mmol/L Normal 3.5-5.1 [facility] Comment on above: Performed By: #### 2 4323-8, 3040-3, , 35754-2 #### [facility] [address] [place] [address] Rn Orthopedic - Sheron HOANG [id number] Protein [Mass/Vol] 7.8 g/dL Normal 6.4-8.2 [facility] Comment on above: Performed By: #### 2 4323-8, 3040-3, 33160-6, 01776-8 #### [facility] [address] [place] [address] Rn Orthopedic - Sheron HOANG [id number] Sodium [Moles/Vol] 137 mmol/L Normal 136-145 [facility] Comment on above: Performed By: #### 2 4323-8, 3040-3, 27359-0, 53366-0 #### [facility] [address] [place] [address] Rn Orthopedic - Sheron HOANG [id number] Urea nitrogen [Mass/Vol] 4 mg/dL Low 7-17 [facility] Comment on above: Performed By: #### 2 4323-8, 0-3, , 60164-6 #### [facility] [address] [place] [address] Rn Orthopedic - Sheron HOANG [id number] Drugs identified Screen Nom (U)on 07-11-2022 Amphetamines Ql (U) Not detected Normal CUTOFF = 500 [facility] Comment on above: Performed By: #### 1 2286-1 #### [facility] [address] [place] [address] Rn Orthopedic - Sheron HOANG [id number] Barbiturates Ql (U) Not detected Normal CUTOFF = 200 [facility] Comment on above: Performed By: #### 1 2286-1 #### [facility] [address] [place] [address] Rn Orthopedic - Sheron HOANG [id number] Benzodiazepines Ql (U) Not detected Normal CUTOFF = 150 [facility] Comment on above: Performed By: #### 1 2286-1 #### [facility] [address] [place] [address] Rn Orthopedic - Sheron HENRYIA [id number] Cocaine Ql (U) Not detected Normal CUTOFF = 150 [facility] Comment on above: Performed By: #### 1 2286-1 #### [facility] [address] [place] [address] Rn Orthopedic - Sheron HENRYIA [id number] HDRUG Drugs of abuse screening provides only a preliminary analytical test result. A more specific alternate chemical method must be used in order to obtain a confimed analytical result. Clinical consideration and professional judgment should be applied to any drug of abuse test result, particularly when preliminary positive results are obtained. Normal [facility] Comment on above: Performed By: #### 1 2286-1 #### [facility] [address] [place] [address] Rn Orthopedic - Sheron HENRYIA [id number] Methadone Ql (U) Not detected Normal CUTOFF = 200 [facility] Comment on above: Performed By: #### 1 2286-1 #### [facility] [address] [facility]. [place] [address] Rn Orthopedic - Sheron HENRYIA [id number] Opiates Ql (U) Not detected Normal CUTOFF = 300 [facility] Comment on above: Performed By: #### 1 2286-1 #### [facility] [address] [facility]. [place] [address] Rn Orthopedic - Sheron HENRYIA [id number] oxyCODONE Ql (U) Not detected Normal CUTOFF = 100 [facility] Comment on above: Performed By: #### 1 2286-1 #### [facility] [address] [facility]. [place] [address] Rn Orthopedic - Sheron HENRYIA [id number] Phencyclidine Ql (U) Not detected Normal CUTOFF = 25 [facility] Comment on above: Performed By: #### 1 2286-1 #### [facility] [address] [place] [address] Rn Orthopedic - Sheron HENRYIA [id number] Tetrahydrocannabinol Ql (U) Detected Abnormal CUTOFF = 50 [facility] Comment on above: Performed By: #### 1 2286-1 #### [facility] [address] [place] [address] Rn Orthopedic - [facility] [place] [id number] LACTATEon 07-11-2022 Lactate [Moles/Vol] 0.9 mmol/L Normal 0.4-2.0 [facility] Comment on above: Performed By: #### 2 524-7 #### [facility] [address] [place] [address] Rn Orthopedic - [facility] [place] [id number] LIPASEon 07-11-2022 Lipase [Catalytic activity/Vol] 60 U/L Low 73-393 [facility] Comment on above: Performed By: #### 2 4323-8, 3040-3, 98367-5, 43246-8 #### [facility] [address] [facility]. [place] [address] Rn Orthopedic - [facility] [place] [id number] MAGNESIUMon 07-11-2022 Magnesium [Mass/Vol] 1.9 mg/dL Normal 1.6-2.6 [facility] Comment on above: Performed By: #### 2 4323-8, 3040-3, 14121-8, 83107-7 #### [facility] [address] [facility]. [place] [address] Rn Orthopedic - [facility] [place] [id number] ULTRASOUND 1ST TRIMEST Herlinda 07-11-2022 ULTRASOUND 1ST [...] weeks 4 days by ultrasound criteria. Normal [facility] URINALYSIS with reflex to CU LTUREon 07-11-2022 Bacteria LM.HPF (Urine sed) [#/Area] Negative Normal TRACE [facility] Comment on above: Performed By: #### U AR #### [facility] [address] [place] [address] [facility] CLIA [id number] Bilirubin Ql (U) Negative Normal NEGATIVE [facility] Comment on above: Performed By: #### U AR #### [facility] [address] [place] [address] Rn Orthopedic [facility] HOANG [id number] Clarity (U) CLEAR Normal CLEAR [facility] Comment on above: Performed By: #### U AR #### [facility] [address] [place] [address] Rn Orthopedic - [facility]onFormerly [facility] VIKTOR [id number] Color (U) YELLOW Normal YELLOW [facility] Comment on above: Performed By: #### U AR #### [facility] [address] [place] [address] Rn Orthopedic - [facility] HOANG [id number] Glucose Ql (U) Negative Normal NEGATIVE [facility] Comment on above: Performed By: #### U AR #### [facility] [address] [place] [address] Rn Orthopedic - [facility] VIKTOR [id number] Hemoglobin Ql (U) Negative Normal NEGATIVE [facility] Comment on above: Performed By: #### U AR #### [facility] [address] [place] [address] Rn Orthopedic - [facility] HOANG [id number] HMICRO MICROSCOPIC Normal [facility] Comment on above: Performed By: #### U AR #### [facility] [address] [place] [address] Rn Orthopedic [facility] [employer] [id number] Hyaline casts (Urine sed) [#/Area] 6-10 Abnormal 0-8 [facility] Comment on above: Performed By: #### U AR #### [facility] [address] [place] [address] Rn Orthopedic - [facility] HOANG [id number] KETONE TRACE Abnormal NEGATIVE [facility] Comment on above: Performed By: #### U AR #### [facility] [address] [place] [address] Rn Orthopedic - Sheron HOANG [id number] Leukocyte esterase Test strip Ql (U) TRACE Normal TRACE [facility] Comment on above: Performed By: #### U AR #### [facility] [address] [place] [address] Rn Orthopedic - Sheron HENRYIA [id number] Nitrite Ql (U) Negative Normal NEGATIVE [facility] Comment on above: Performed By: #### U AR #### [facility] [address] [place] [address] Rn Orthopedic - Sheron HOANG [id number] pH (U) 7.5 [pH] Normal 5.5-7.5 [facility] Comment on above: Performed By: #### U AR #### [address] [place] [address] Rn Orthopedic - Sheron HENRYIA [id number] Protein Ql (U) TRACE Abnormal NEGATIVE [facility] Comment on above: Performed By: #### U AR #### [address] [place] [address] Rn Orthopedic - Sheron HOANG [id number] RBC LM.HPF (Urine sed) [#/Area] 0-4 Normal 0-4 [facility] Comment on above: Performed By: #### U AR #### [facility] [address] [place], [place] [address] [place] [address] Rn Orthopedic - Sheron HENRYIA [id number] Specific gravity (U) [Rel density] 1.026 Normal 1.010-1.035 [facility] Comment on above: Performed By: #### U AR #### [facility] [address] [place] [address]. [place] [address] Rn Orthopedic - Sheron HENRYIA [id number] SQUAMOUS EPITHELIALS 10-15 Abnormal 0-5 [facility] Comment on above: Performed By: #### U AR #### [facility] [address] [place] [address] Rn Orthopedic - Sheron HOANG [id number] Urobilinogen Qn (U) 1.0 {Devin'U}/dL Normal <=1.0 [facility] Comment on above: Performed By: #### U AR #### [facility] [address] [place] [address] Rn Orthopedic - Sheron HOANG [id number] WBC LM.HPF (Urine sed) [#/Area] 0-5 Normal 0-5 [facility] Comment on above: Performed By: #### U AR #### [facility] [address] [place] [address] Rn Orthopedic - Sheron HOANG [id number] Culture, urineOrdered By: Dr Peng Avila on 07-04-2022 Bacteria identified Cx Nom (U) Positive [facility] Absolute lymphocyte countOrd ered By: Dr. Avila on 07-02-2022 Lymphocytes Auto (Unsp spec) [#/Vol] 2.02 10*3/uL 0.83-4.51 [facility] Basophil percentageOrdered B y: Dr. Avila on 07-02-2022 Basophil percentage 25-50 SEEN /hpf 0-5 [facility] Basophils/100 WBC (Bld) 0.6 % 0-1 [facility] Bilirubin [Mass/Vol] 0.60 mg/dL 0.20-1.00 [facility] Comment on above: For patients on eltr ombopag therapy, use of Dimension [place] TBIL is not recommended. Chloride [Moles/Vol] 104 mmol/L 98-107 [facility] Eosinophils/100 WBC (Bld) 1.8 % 0-5 [facility] Glucose [Mass/Vol] 89 mg/dL 74-106 [facility] Lactate [Moles/Vol] 0.9 mmol/L 0.4-2.0 [facility] Neutrophils (Bld) [#/Vol] 5.6 10*3/uL 2.0-7.7 [facility] Neutrophils/100 WBC (Bld) 66.5 % 47-70 [facility] Potassium [Moles/Vol] 3.4 mmol/L 3.5-5.1 [facility] Protein [Mass/Vol] 7.6 g/dL 6.4-8.2 [facility] Sodium [Moles/Vol] 139 mmol/L 136-145 [facility] WBC (Bld) [#/Vol] 8.3 10*3/uL 4.4-11.0 [facility] Bilirubin Test strip Ql (U)O rdered By: Dr. Avila on 07-02-2022 Bilirubin Ql (U) Negative Negative [facility] Blood erythrocytes count (nu mber/volume)Ordered By: Dr. Avila on 07-02-2022 RBC (Bld) [#/Vol] 4.66 10*6/uL 4.2-5.4 [facility] Blood hemoglobin measurement (mass/volume)Ordered By: Dr. Avila on 07-02-2022 Hemoglobin (Bld) [Mass/Vol] 12.4 g/dL 12.0-15.0 [facility] Blood lymphocytes/100 leukoc ytesOrdered By: Dr. Avila on 07-02-2022 Lymphocytes/100 WBC (Bld) 24.2 % 19-41 [facility] Blood monocytes/100 leukocyt esOrdered By: Dr. Avila on 07-02-2022 Monocytes/100 WBC (Bld) 6.5 % 0-10 [facility] Blood platelet mean volumeOr dered By: Dr. Avila on 07-02-2022 Platelet mean volume (Bld) [Entitic vol] 11.3 fL 6.2-12.0 [facility] Culture, urineOrdered By: Ted Avila on 07-02-2022 Bacteria identified Cx Nom (U) Positive [facility] Determination of erythrocyte mean corpuscular volume (MCV)Ordered By: Dr. Avila on 07-02-2022 MCV (RBC) [Entitic vol] 79.6 fL 81-99 [facility] Hematocrit Auto (Bld) [Volum e fraction]Ordered By: Dr. Avila on 07-02-2022 Hematocrit (Bld) [Volume fraction] 37.1 % 37-47 [facility] Ketones Test strip Ql (U)Ord ered By: Dr. Avila on 07-02-2022 Ketones Ql (U) 5 mg/dl Negative [facility] Laboratory - Chemistry and C hemistry - challengeOrdered By: Dr. Avila on 07-02-2022 ALP [Catalytic activity/Vol] 56 U/L 45-117 [facility] ALT [Catalytic activity/Vol] 46 U/L 13-56 [facility] CO2 [Moles/Vol] 23.0 mmol/L 21.0-32.0 [facility] Globulin (S) [Mass/Vol] 4.1 g/dL 2.2-4.2 [facility] Lipase [Catalytic activity/Vol] 19 U/L 13-75 [facility] Comment on above: Please note:LIPASE r evised reference range effective 22. New Lipase methodology. Expected to produce lower values than the previous assay method. NEW Reference Range: 13 - 75 U/L Urea nitrogen/Creatinine [Mass ratio] 9.1 mg/mg 10-20 [facility] - Hematology and Cell countsOrdered By: Dr. Avila on 07-02-2022 Erythrocyte distribution width (RBC) [Entitic vol] 42.6 fL 35.1-43.9 [facility] Erythrocyte distribution width (RBC) [Ratio] 14.6 % 11.6-14.6 [facility] Immature granulocytes/100 WBC (Bld) 0.400 % 0.0-0.9 [facility] Comment on above: IG% - Immature Granu locytes (promyelocytes, myelocytes and metamyelocytes) > 1% indicates that a LEFT SHIFT is Present. MCH (RBC) [Entitic mass] 26.6 pg 27.0-32.0 [facility] Nucleated RBC/100 WBC (Bld) [Ratio] 0 % 0-5 [facility] MCHC Auto (RBC) [Mass/Vol]Or dered By: Dr. Avila on 07-02-2022 MCHC (RBC) [Mass/Vol] 33.4 g/dL 32-36 [facility] Mucus LM Ql (Urine sed)Order ed By: Dr. Avila on 07-02-2022 Mucus Ql (Urine sed) 1+ /hpf [facility] Nitrite Test strip Ql (U)Ord ered By: Dr. Avila on 07-02-2022 Nitrite Ql (U) Negative Negative [facility] No Panel InformationOrdered By: Dr. Avila on 07-02-2022 Estimated Creatinine Clearance Calc 121.33 ml/min [facility] Estimated GFR (MDRD) Amer 145 mL/min >60 [facility] Comment on above: GFR Calc Estimated GFR (MDRD) Non-Af Amer 120 mL/min >60 [facility] Comment on above: Non- GFR Calc Platelets bldOrdered By: Dr. Avila on 07-02-2022 Platelets (Bld) [#/Vol] 262 10*3/uL 150-450 [facility] Protein Test strip Ql (U)Ord ered By: Dr. Avila on 07-02-2022 Protein Ql (U) 30 mg/dl Negative [facility] Serum or plasma albumin ana urement (mass/volume)Ordered By: Dr. Avila on 07-02-2022 Albumin [Mass/Vol] 3.5 g/dL 3.2-5.0 [facility] Serum or plasma albumin/glob ulin mass ratioOrdered By: Dr. Avila on 07-02-2022 Albumin/Globulin [Mass ratio] 0.9 {ratio} 0.9-2.4 [facility] Serum or plasma calcium ana urement (mass/volume)Ordered By: Dr. Avila on 07-02-2022 Calcium [Mass/Vol] 9.1 mg/dL 8.5-10.1 [facility] Serum or plasma creatinine m easurement (mass/volume)Ordered By: Dr. Avila on 07-02-2022 Creatinine [Mass/Vol] 0.66 mg/dL 0.55-1.02 [facility] Comment on above: The validity of the calculated GFR & GFRAA in patients over 70 years has not been determined. Clinical correlation is essential. Serum or plasma urea nitroge n measurement (mass/volume)Ordered By: Dr. Avila on 07-02-2022 Urea nitrogen [Mass/Vol] 6 mg/dL 7-18 [facility] Squamous epithelial cells de tection in urine sediment by light microscopyOrdered By: Dr. Avila on 07-02-2022 Epithelial cells.squamous LM Ql (Urine sed) 5-10 SEEN /hpf 5-10 [facility] Thin prep Papanicolaou smear with manual screeningOrdered By: Dr. Avila on 07-02-2022 Thin prep Papanicolaou smear with manual screening 28 U/L 15-37 [facility] Thin prep Papanicolaou smear with manual screening 12 5-15 [facility] Urine blood detectionOrdered By: Dr. Avila on 07-02-2022 RBC Ql (U) Negative Negative [facility] RBC Ql (U) 0 SEEN /hpf 0-5 [facility] Urine clarityOrdered By: Dr. Avila on 07-02-2022 Clarity (U) Sl. Cloudy Clear [facility] Urine color determinationOrd ered By: Dr. Avila on 07-02-2022 Color (U) Yellow Yellow [facility] Urine glucose detectionOrder ed By: Dr. Avila on 07-02-2022 Glucose Ql (U) Normal mg/dl Normal [facility] Urine leukocyte esterase det ection by dipstickOrdered By: Dr. Avila on 07-02-2022 Leukocyte esterase Test strip Ql (U) 500 /ul Negative [facility] Urine pHOrdered By: Dr. Avila on 07-02-2022 pH (U) 6.0 [pH] 5.0 - 8.0 [facility] Urine sediment bacteria coun t by microscopy (number/high power field)Ordered By: Dr. Avila on 07-02-2022 Bacteria LM.HPF (Urine sed) [#/Area] 2 /[HPF] None Seen [facility] Urine specific gravity measu rementOrdered By: Dr. Avila on 07-02-2022 Specific gravity (U) [Rel density] 1.020 1.002-1.030 [facility] Urobilinogen Auto test strip Ql (U)Ordered By: Dr. Avila on 07-02-2022 Urobilinogen Ql (U) 8 mg/dl Normal [facility] C. trachomatis+N. gonorrhoea e DNA ELMIRA+probe Ql (Unsp spec)on 06-18-2022 C. trachomatis rRNA ELMIRA+probe Ql (Unsp spec) Negative Negative for Chlamydia trachomatis by amplificaton [facility] N. gonorrhoeae rRNA ELMIRA+probe Ql (Unsp spec) Negative Negative for Neisseria gonorrhoeae by amplification [facility] CBC panel Auto (Bld)on 06-18 Hematocrit (Bld) [Volume fraction] 33.0 % Abnormal 36.0 - 46.0 % [facility] Hemoglobin (Bld) [Mass/Vol] 11.4 g/dL Abnormal 11.5 - 15.5 g/dL [facility] Platelets (Bld) [#/Vol] 224 10*3/uL [facility] HEP B SURF AG SCRNon 023 HBV surface Ag Ql (S) Negative [facility] RPR SCREENon 06-18-2022 Reagin Ab RPR Ql (S) Non-Reactive Nonreactive C [facility] RUBELLA IGG ABon 06-18-2022 Rubella IgG, Qual Positive Positive [facility] TYPE + SCREEN (EXTERNAL LAB) on 06-18-2022 ABO/RH(D) (EXTERNAL) Negative [facility] URINE CULTUREon 06-18-2022 Bacteria identified Cx Nom (U) Mixed urogential jordi lss than 10,000 colonies/mL [facility] VARICELLA ZOSTER IGGon 06-18 VZV IgG Qn (S) 151 index Immune >165 [facility] Absolute lymphocyte countOrd ered By: Dr. Smith on 06-14-2022 Lymphocytes Auto (Unsp spec) [#/Vol] 1.77 10*3/uL 0.83-4.51 [facility] Amorphous sediment detection in urine sediment by light microscopyOrdered By: Dr. Smith on 06-14-2022 Amorphous sediment LM Ql (Urine sed) 2+ [facility] Basophil percentageOrdered B y: Dr. Smith on 06-14-2022 Basophil percentage 0-5 SEEN /hpf 0-5 [facility] Basophils/100 WBC (Bld) 0.5 % 0-1 [facility] Bilirubin [Mass/Vol] 0.30 mg/dL 0.20-1.00 [facility] [place] Comment on above: For patients on eltr ombopag therapy, use of Dimension [place] TBIL is not recommended. Chloride [Moles/Vol] 107 mmol/L 98-107 [facility] Eosinophils/100 WBC (Bld) 1.0 % 0-5 [facility] Glucose [Mass/Vol] 83 mg/dL 74-106 [facility] Neutrophils (Bld) [#/Vol] 7.2 10*3/uL 2.0-7.7 [facility] Neutrophils/100 WBC (Bld) 74.2 % 47-70 [facility] Potassium [Moles/Vol] 3.5 mmol/L 3.5-5.1 [facility] Comment on above: Slight Hemolysis, Re sult may be falsely increased. Protein [Mass/Vol] 7.1 g/dL 6.4-8.2 [facility] Sodium [Moles/Vol] 135 mmol/L 136-145 [facility] WBC (Bld) [#/Vol] 9.8 10*3/uL 4.4-11.0 [facility] Bilirubin Test strip Ql (U)O rdered By: Dr. Smith on 06-14-2022 Bilirubin Ql (U) Negative Negative [facility] Blood erythrocytes count (nu mber/volume)Ordered By: Dr. Smith on 06-14-2022 RBC (Bld) [#/Vol] 4.34 10*6/uL 4.2-5.4 [facility] Blood hemoglobin measurement (mass/volume)Ordered By: Dr. Smith on 06-14-2022 Hemoglobin (Bld) [Mass/Vol] 11.7 g/dL 12.0-15.0 [facility] Blood lymphocytes/100 leukoc ytesOrdered By: Dr. Smith on 06-14-2022 Lymphocytes/100 WBC (Bld) 18.2 % 19-41 [facility] Blood monocytes/100 leukocyt esOrdered By: Dr. Smith on 06-14-2022 Monocytes/100 WBC (Bld) 5.8 % 0-10 [facility] Blood platelet mean volumeOr dered By: Dr. Smith on 06-14-2022 Platelet mean volume (Bld) [Entitic vol] 11.7 fL 6.2-12.0 [facility] Determination of erythrocyte mean corpuscular volume (MCV)Ordered By: Dr. Smith on 06-14-2022 MCV (RBC) [Entitic vol] 81.6 fL 81-99 [facility] Hematocrit Auto (Bld) [Volum e fraction]Ordered By: Dr. Smith on 06-14-2022 Hematocrit (Bld) [Volume fraction] 35.4 % 37-47 [facility] Ketones Test strip Ql (U)Ord ered By: Dr. Smith on 06-14-2022 Ketones Ql (U) 150 mg/dl Negative [facility] Comment on above: CRITICAL VALUE *HCRI TICAL VALUE VERIFIED. CALLED TO EDMUND URBINA06/14/22 1205 Ness Flores.RESULTS READ BACK BY SAME . Laboratory - Chemistry and C hemistry - challengeOrdered By: Dr. Smith on 06-14-2022 ALP [Catalytic activity/Vol] 51 U/L 45-117 [facility] ALT [Catalytic activity/Vol] 17 U/L 13-56 [facility] CO2 [Moles/Vol] 22.0 mmol/L 21.0-32.0 [facility] Globulin (S) [Mass/Vol] 3.5 g/dL 2.2-4.2 [facility] Lipase [Catalytic activity/Vol] 15 U/L 13-75 [facility] Comment on above: Please note:LIPASE r evised reference range effective 22. New Lipase methodology. Expected to produce lower values than the previous assay method. NEW Reference Range: 13 - 75 U/L Urea nitrogen/Creatinine [Mass ratio] 8.4 mg/mg 10-20 [facility] Laboratory - Hematology and Cell countsOrdered By: Dr. Smith on 06-14-2022 Erythrocyte distribution width (RBC) [Entitic vol] 45.4 fL 35.1-43.9 [facility] Erythrocyte distribution width (RBC) [Ratio] 15.5 % 11.6-14.6 [facility] Immature granulocytes/100 WBC (Bld) 0.300 % 0.0-0.9 [facility] Comment on above: IG% - Immature Granu locytes (promyelocytes, myelocytes and metamyelocytes) > 1% indicates that a LEFT SHIFT is Present. MCH (RBC) [Entitic mass] 27.0 pg 27.0-32.0 [facility] Nucleated RBC/100 WBC (Bld) [Ratio] 0 % 0-5 [facility] MCHC Auto (RBC) [Mass/Vol]Or dered By: Dr. Smith on 06-14-2022 MCHC (RBC) [Mass/Vol] 33.1 g/dL 32-36 [facility] Mucus LM Ql (Urine sed)Order ed By: Dr. Smith on 06-14-2022 Mucus Ql (Urine sed) 0 SEEN /hpf [facility] Nitrite Test strip Ql (U)Ord ered By: Dr. Smith on 06-14-2022 Nitrite Ql (U) Negative Negative [facility] No Panel InformationOrdered By: Dr. Smith on 06-14-2022 Estimated Creatinine Clearance Calc 135.72 ml/min [facility] Estimated GFR (MDRD) Amer 164 mL/min >60 [facility] Comment on above: GFR Calc Estimated GFR (MDRD) Non-Af Amer 135 mL/min >60 [facility] Comment on above: Non- GFR Calc Platelets bldOrdered By: Dr. Smith on 06-14-2022 Platelets (Bld) [#/Vol] 264 10*3/uL 150-450 [facility] Protein Test strip Ql (U)Ord ered By: Dr. Smith on 06-14-2022 Protein Ql (U) 30 mg/dl Negative [facility] Serum or plasma albumin ana urement (mass/volume)Ordered By: Dr. Smith on 06-14-2022 Albumin [Mass/Vol] 3.6 g/dL 3.2-5.0 [facility] Serum or plasma albumin/glob ulin mass ratioOrdered By: Dr. Smith on 06-14-2022 Albumin/Globulin [Mass ratio] 1.0 {ratio} 0.9-2.4 [facility] Serum or plasma calcium ana urement (mass/volume)Ordered By: Dr. Smith on 06-14-2022 Calcium [Mass/Vol] 8.9 mg/dL 8.5-10.1 [facility] Serum or plasma choriogonado tropin detectionOrdered By: Dr. Smith on 06-14-2022 HCG ( test) Ql 24944 mIU/mL <4 [facility] Comment on above: hCG levels with Gest ational AgeGestational Age hCG mIU/mL (IU/L)0.2 - 1 week 5 - 501-2 weeks 50 - 5002-3 weeks 100 - 78639-4 weeks 500 - 686863-6 weeks 1000 - 610506-1 weeks 12605 - 100,0006-8 weeks 25919 - 200,0002-3 months 34563 - 100,000 Serum or plasma creatinine m easurement (mass/volume)Ordered By: Dr. Smith on 06-14-2022 Creatinine [Mass/Vol] 0.59 mg/dL 0.55-1.02 [facility] Comment on above: The validity of the calculated GFR & GFRAA in patients over 70 years has not been determined. Clinical correlation is essential. Serum or plasma urea nitroge n measurement (mass/volume)Ordered By: Dr. Smith on 06-14-2022 Urea nitrogen [Mass/Vol] 5 mg/dL 7-18 [facility] Squamous epithelial cells de tection in urine sediment by light microscopyOrdered By: Dr. Smith on 06-14-2022 Epithelial cells.squamous LM Ql (Urine sed) 5-10 SEEN /hpf 5-10 [facility] Thin prep Papanicolaou smear with manual screeningOrdered By: Dr. Smith on 06-14-2022 Thin prep Papanicolaou smear with manual screening 14 U/L 15-37 [facility] Comment on above: Slight Hemolysis, Re sult may be falsely increased. Thin prep Papanicolaou smear with manual screening 6 5-15 [facility] Urine blood detectionOrdered By: Dr. Smith on 06-14-2022 RBC Ql (U) Negative Negative [facility] RBC Ql (U) 0 SEEN /hpf 0-5 [facility] Urine clarityOrdered By: Dr. Smith on 06-14-2022 Clarity (U) Clear Clear [facility] Urine color determinationOrd ered By: Dr. Smith on 06-14-2022 Color (U) Yellow Yellow [facility] Urine glucose detectionOrder ed By: Dr. Smith on 06-14-2022 Glucose Ql (U) Normal mg/dl Normal [facility] Urine leukocyte esterase det ection by dipstickOrdered By: Dr. Smith on 06-14-2022 Leukocyte esterase Test strip Ql (U) 100 /ul Negative [facility] Urine pHOrdered By: Dr. Boni frausto on 06-14-2022 pH (U) 8.0 [pH] 5.0 - 8.0 [facility] Urine sediment bacteria coun t by microscopy (number/high power field)Ordered By: Dr. Smith on 06-14-2022 Bacteria LM.HPF (Urine sed) [#/Area] 1 /[HPF] None Seen [facility] Urine specific gravity measu rementOrdered By: Dr. Smith on 06-14-2022 Specific gravity (U) [Rel density] 1.015 1.002-1.030 [facility] Urobilinogen Auto test strip Ql (U)Ordered By: Dr. Smith on 06-14-2022 Urobilinogen Ql (U) 1 mg/dl Normal [facility] Absolute lymphocyte countOrd ered By: Dr. Menchaca on 06-12-2022 Lymphocytes Auto (Unsp spec) [#/Vol] 1.35 10*3/uL 0.83-4.51 [facility] Basophil percentageOrdered B y: Dr. Menchaca on 06-12-2022 Basophils/100 WBC (Bld) 0.3 % 0-1 [facility] Bilirubin [Mass/Vol] 0.50 mg/dL 0.20-1.00 [facility] [place] Comment on above: For patients on eltr ombopag therapy, use of Dimension [place] TBIL is not recommended. Chloride [Moles/Vol] 107 mmol/L 98-107 [facility] [place] Eosinophils/100 WBC (Bld) 0.3 % 0-5 [facility] Glucose [Mass/Vol] 97 mg/dL 74-106 [facility] Neutrophils (Bld) [#/Vol] 7.6 10*3/uL 2.0-7.7 [facility] Neutrophils/100 WBC (Bld) 80.3 % 47-70 [facility] Potassium [Moles/Vol] 3.5 mmol/L 3.5-5.1 [facility] Protein [Mass/Vol] 7.9 g/dL 6.4-8.2 [facility] Sodium [Moles/Vol] 139 mmol/L 136-145 [facility] WBC (Bld) [#/Vol] 9.5 10*3/uL 4.4-11.0 [facility] Blood erythrocytes count (nu mber/volume)Ordered By: Dr. Menchaca on 06-12-2022 RBC (Bld) [#/Vol] 4.83 10*6/uL 4.2-5.4 [facility] Blood hemoglobin measurement (mass/volume)Ordered By: Dr. Menchaca on 06-12-2022 Hemoglobin (Bld) [Mass/Vol] 13.0 g/dL 12.0-15.0 [facility] Blood lymphocytes/100 leukoc ytesOrdered By: Dr. Menchaca on 06-12-2022 Lymphocytes/100 WBC (Bld) 14.2 % 19-41 [facility] Blood monocytes/100 leukocyt esOrdered By: Dr. Menchaca on 06-12-2022 Monocytes/100 WBC (Bld) 4.7 % 0-10 [facility] Blood platelet mean volumeOr dered By: Dr. Menchaca on 06-12-2022 Platelet mean volume (Bld) [Entitic vol] 10.4 fL 6.2-12.0 [facility] Determination of erythrocyte mean corpuscular volume (MCV)Ordered By: Dr. Menchaca on 06-12-2022 MCV (RBC) [Entitic vol] 79.3 fL 81-99 [facility] Direct bilirubinOrdered By: Dr. Menchaca on 06-12-2022 Bilirubin.direct [Mass/Vol] 0.14 mg/dL 0.00-0.30 [facility] Hematocrit Auto (Bld) [Volum e fraction]Ordered By: Dr. Menchaca on 06-12-2022 Hematocrit (Bld) [Volume fraction] 38.3 % 37-47 [facility] Laboratory - Chemistry and C hemistry - challengeOrdered By: Dr. Menchaca on 06-12-2022 ALP [Catalytic activity/Vol] 60 U/L 45-117 [facility] ALT [Catalytic activity/Vol] 14 U/L 13-56 [facility] CO2 [Moles/Vol] 23.0 mmol/L 21.0-32.0 [facility] Globulin (S) [Mass/Vol] 3.8 g/dL 2.2-4.2 [facility] Lipase [Catalytic activity/Vol] 17 U/L 13-75 [facility] Comment on above: Please note:LIPASE r evised reference range effective 22. New Lipase methodology. Expected to produce lower values than the previous assay method. NEW Reference Range: 13 - 75 U/L Urea nitrogen/Creatinine [Mass ratio] 9.0 mg/mg 10-20 [facility] Laboratory - Hematology and Cell countsOrdered By: Dr. Menchaca on 06-12-2022 Erythrocyte distribution width (RBC) [Entitic vol] 43.5 fL 35.1-43.9 [facility] Erythrocyte distribution width (RBC) [Ratio] 15.1 % 11.6-14.6 [facility] Immature granulocytes/100 WBC (Bld) 0.200 % 0.0-0.9 [facility] Comment on above: IG% - Immature Granu locytes (promyelocytes, myelocytes and metamyelocytes) > 1% indicates that a LEFT SHIFT is Present. MCH (RBC) [Entitic mass] 26.9 pg 27.0-32.0 [facility] Nucleated RBC/100 WBC (Bld) [Ratio] 0 % 0-5 [facility] MCHC Auto (RBC) [Mass/Vol]Or dered By: Dr. Menchaca on 06-12-2022 MCHC (RBC) [Mass/Vol] 33.9 g/dL 32-36 [facility] No Panel InformationOrdered By: Dr. Menchaca on 06-12-2022 Estimated Creatinine Clearance Calc 119.52 ml/min [facility] Estimated GFR (MDRD) Amer 143 mL/min >60 [facility] Comment on above: GFR Calc Estimated GFR (MDRD) Non-Af Amer 118 mL/min >60 [facility] Comment on above: Non- GFR Calc Platelets bldOrdered By: Dr. Menchaca on 06-12-2022 Platelets (Bld) [#/Vol] 286 10*3/uL 150-450 [facility] Serum or plasma albumin ana urement (mass/volume)Ordered By: Dr. Menchaca on 06-12-2022 Albumin [Mass/Vol] 4.1 g/dL 3.2-5.0 [facility] Serum or plasma calcium ana urement (mass/volume)Ordered By: Dr. Menchaca on 06-12-2022 Calcium [Mass/Vol] 9.1 mg/dL 8.5-10.1 [facility] Serum or plasma choriogonado tropin detectionOrdered By: Dr. Menchaca on 06-12-2022 HCG ( test) Ql [address]36 mIU/mL <4 [facility] Comment on above: hCG levels with Gest ational AgeGestational Age hCG mIU/mL (IU/L)0.2 - 1 week 5 - 501-2 weeks 50 - 5002-3 weeks 100 - 35366-7 weeks 500 - 265025-1 weeks 1000 - 980189-7 weeks 84785 - 100,0006-8 weeks 28536 - 200,0002-3 months 60636 - 100,000 Serum or plasma creatinine m easurement (mass/volume)Ordered By: Dr. Menchaca on 06-12-2022 Creatinine [Mass/Vol] 0.67 mg/dL 0.55-1.02 [facility] Comment on above: The validity of the calculated GFR & GFRAA in patients over 70 years has not been determined. Clinical correlation is essential. Serum or plasma urea nitroge n measurement (mass/volume)Ordered By: Dr. Menchaca on 06-12-2022 Urea nitrogen [Mass/Vol] 6 mg/dL 7-18 [facility] Thin prep Papanicolaou smear with manual screeningOrdered By: Dr. Menchaca on 06-12-2022 Thin prep Papanicolaou smear with manual screening 9 U/L 15-37 [facility] Thin prep Papanicolaou smear with manual screening 9 5-15 [facility] Absolute lymphocyte countOrd ered By: Dr. Berman on 06-02-2022 Lymphocytes Auto (Unsp spec) [#/Vol] 2.23 10*3/uL 0.83-4.51 [facility] Basophil percentageOrdered B y: Dr. Berman on 06-02-2022 Basophil percentage 0-5 SEEN /hpf 0-5 [facility] Basophils/100 WBC (Bld) 0.6 % 0-1 [facility] Chloride [Moles/Vol] 108 mmol/L 98-107 [facility] [place] Eosinophils/100 WBC (Bld) 1.2 % 0-5 [facility] Glucose [Mass/Vol] 83 mg/dL 74-106 [facility] Neutrophils (Bld) [#/Vol] 4.8 10*3/uL 2.0-7.7 [facility] Neutrophils/100 WBC (Bld) 62.6 % 47-70 [facility] Potassium [Moles/Vol] 3.5 mmol/L 3.5-5.1 [facility] Sodium [Moles/Vol] 135 mmol/L 136-145 [facility] WBC (Bld) [#/Vol] 7.7 10*3/uL 4.4-11.0 [facility] Bilirubin Test strip Ql (U)O rdered By: Dr. Berman on 06-02-2022 Bilirubin Ql (U) Negative Negative [facility] Blood erythrocytes count (nu mber/volume)Ordered By: Dr. Berman on 06-02-2022 RBC (Bld) [#/Vol] 4.71 10*6/uL 4.2-5.4 [facility] Blood hemoglobin measurement (mass/volume)Ordered By: Dr. Berman on 06-02-2022 Hemoglobin (Bld) [Mass/Vol] 12.6 g/dL 12.0-15.0 [facility] Blood lymphocytes/100 leukoc ytesOrdered By: Dr. Berman on 06-02-2022 Lymphocytes/100 WBC (Bld) 28.9 % 19-41 [facility] Blood monocytes/100 leukocyt esOrdered By: Dr. Berman on 06-02-2022 Monocytes/100 WBC (Bld) 6.4 % 0-10 [facility] Blood platelet mean volumeOr dered By: Dr. Berman on 06-02-2022 Platelet mean volume (Bld) [Entitic vol] 10.7 fL 6.2-12.0 [facility] Determination of erythrocyte mean corpuscular volume (MCV)Ordered By: Dr. Berman on 06-02-2022 MCV (RBC) [Entitic vol] 82.6 fL 81-99 [facility] Hematocrit Auto (Bld) [Volum e fraction]Ordered By: Dr. Berman on 06-02-2022 Hematocrit (Bld) [Volume fraction] 38.9 % 37-47 [facility] Ketones Test strip Ql (U)Ord ered By: Dr. Berman on 06-02-2022 Ketones Ql (U) 15 mg/dl Negative [facility] Laboratory - Chemistry and C hemistry - challengeOrdered By: Dr. Berman on 06-02-2022 CO2 [Moles/Vol] 25.0 mmol/L 21.0-32.0 [facility] Urea nitrogen/Creatinine [Mass ratio] 6.9 mg/mg 10-20 [facility] Laboratory - Hematology and Cell countsOrdered By: Dr. Berman on 06-02-2022 Erythrocyte distribution width (RBC) [Entitic vol] 46.2 fL 35.1-43.9 [facility] Erythrocyte distribution width (RBC) [Ratio] 15.4 % 11.6-14.6 [facility] Immature granulocytes/100 WBC (Bld) 0.300 % 0.0-0.9 [facility] Comment on above: IG% - Immature Granu locytes (promyelocytes, myelocytes and metamyelocytes) > 1% indicates that a LEFT SHIFT is Present. MCH (RBC) [Entitic mass] 26.8 pg 27.0-32.0 [facility] Nucleated RBC/100 WBC (Bld) [Ratio] 0 % 0-5 [facility] MCHC Auto (RBC) [Mass/Vol]Or dered By: Dr. Berman on 06-02-2022 MCHC (RBC) [Mass/Vol] 32.4 g/dL 32-36 [facility] Mucus LM Ql (Urine sed)Order ed By: Dr. Berman on 06-02-2022 Mucus Ql (Urine sed) 0 SEEN /hpf [facility] Nitrite Test strip Ql (U)Ord ered By: Dr. Berman on 06-02-2022 Nitrite Ql (U) Negative Negative [facility] No Panel InformationOrdered By: Dr. Berman on 06-02-2022 Estimated Creatinine Clearance Calc 111.22 ml/min [facility] Estimated GFR (MDRD) Amer 131 mL/min >60 [facility] Comment on above: GFR Calc Estimated GFR (MDRD) Non-Af Amer 108 mL/min >60 [facility] Comment on above: Non- GFR Calc Platelets bldOrdered By: Dr. Berman on 06-02-2022 Platelets (Bld) [#/Vol] 259 10*3/uL 150-450 [facility] Protein Test strip Ql (U)Ord ered By: Dr. Berman on 06-02-2022 Protein Ql (U) 15 mg/dl Negative [facility] Serum or plasma calcium ana urement (mass/volume)Ordered By: Dr. Berman on 06-02-2022 Calcium [Mass/Vol] 8.9 mg/dL 8.5-10.1 [facility] Serum or plasma choriogonado tropin detectionOrdered By: Dr. Berman on 06-02-2022 HCG ( test) Ql 5086 mIU/mL <4 [facility] Comment on above: hCG levels with Gest ational AgeGestational Age hCG mIU/mL (IU/L)0.2 - 1 week 5 - 501-2 weeks 50 - 5002-3 weeks 100 - 97598-9 weeks 500 - 122163-2 weeks 1000 - 009158-3 weeks 66435 - 100,0006-8 weeks 09223 - 200,0002-3 months 88517 - 100,000 Serum or plasma creatinine m easurement (mass/volume)Ordered By: Dr. Berman on 06-02-2022 Creatinine [Mass/Vol] 0.72 mg/dL 0.55-1.02 [facility] Comment on above: The validity of the calculated GFR & GFRAA in patients over 70 years has not been determined. Clinical correlation is essential. Serum or plasma urea nitroge n measurement (mass/volume)Ordered By: Dr. Berman on 06-02-2022 Urea nitrogen [Mass/Vol] 5 mg/dL 7-18 [facility] Squamous epithelial cells de tection in urine sediment by light microscopyOrdered By: Dr. Berman on 06-02-2022 Epithelial cells.squamous LM Ql (Urine sed) 5-10 SEEN /hpf 5-10 [facility] Thin prep Papanicolaou smear with manual screeningOrdered By: Dr. Berman on 06-02-2022 Thin prep Papanicolaou smear with manual screening 2 5-15 [facility] Urine blood detectionOrdered By: Dr. Berman on 06-02-2022 RBC Ql (U) Negative Negative [facility] RBC Ql (U) 0 SEEN /hpf 0-5 [facility] Urine clarityOrdered By: Dr. Berman on 06-02-2022 Clarity (U) Sl. Cloudy Clear [facility] Urine color determinationOrd ered By: Dr. Berman on 06-02-2022 Color (U) Yellow Yellow [facility] Urine glucose detectionOrder ed By: Dr. Berman on 06-02-2022 Glucose Ql (U) Normal mg/dl Normal [facility] Urine leukocyte esterase det ection by dipstickOrdered By: Dr. Berman on 06-02-2022 Leukocyte esterase Test strip Ql (U) 100 /ul Negative [facility] Urine pHOrdered By: Dr. Vanita frias on 06-02-2022 pH (U) 7.0 [pH] 5.0 - 8.0 [facility] Urine sediment bacteria coun t by microscopy (number/high power field)Ordered By: Dr. Berman on 06-02-2022 Bacteria LM.HPF (Urine sed) [#/Area] 1 /[HPF] None Seen [facility] Urine specific gravity measu rementOrdered By: Dr. Berman on 06-02-2022 Specific gravity (U) [Rel density] 1.015 1.002-1.030 [facility] Urobilinogen Auto test strip Ql (U)Ordered By: Dr. Berman on 06-02-2022 Urobilinogen Ql (U) 4 mg/dl Normal [facility] Absolute lymphocyte countOrd ered By: Dr. Dorman on 05-06-2022 Lymphocytes Auto (Unsp spec) [#/Vol] 3.50 10*3/uL 0.83-4.51 [facility] Basophil percentageOrdered B y: Dr. Dorman on 05-06-2022 Basophils/100 WBC (Bld) 1.0 % 0-1 [facility] Bilirubin [Mass/Vol] 0.40 mg/dL 0.20-1.00 [facility] [place] Comment on above: For patients on eltr ombopag therapy, use of Dimension [place] TBIL is not recommended. Chloride [Moles/Vol] 108 mmol/L 98-107 [facility] [place] Eosinophils/100 WBC (Bld) 5.0 % 0-5 [facility] Glucose [Mass/Vol] 101 mg/dL 74-106 [facility] Comment on above: Fasting Glucose resu lt from 100 to 125 mg/dL suggests IMPAIRED HOMEOSTASIS per A.D.A. criteria. Neutrophils (Bld) [#/Vol] 4.5 10*3/uL 2.0-7.7 [facility] Neutrophils/100 WBC (Bld) 49.4 % 47-70 [facility] Potassium [Moles/Vol] 3.2 mmol/L 3.5-5.1 [facility] Protein [Mass/Vol] 8.0 g/dL 6.4-8.2 [facility] Sodium [Moles/Vol] 141 mmol/L 136-145 [facility] WBC (Bld) [#/Vol] 9.2 10*3/uL 4.4-11.0 [facility] Blood erythrocytes count (nu mber/volume)Ordered By: Dr. Dorman on 05-06-2022 RBC (Bld) [#/Vol] 4.94 10*6/uL 4.2-5.4 [facility] Blood hemoglobin measurement (mass/volume)Ordered By: Dr. Dorman on 05-06-2022 Hemoglobin (Bld) [Mass/Vol] 12.9 g/dL 12.0-15.0 [facility] Blood lymphocytes/100 leukoc ytesOrdered By: Dr. Dorman on 05-06-2022 Lymphocytes/100 WBC (Bld) 38.1 % 19-41 [facility] Blood monocytes/100 leukocyt esOrdered By: Dr. Dorman on 05-06-2022 Monocytes/100 WBC (Bld) 6.2 % 0-10 [facility] Blood platelet mean volumeOr dered By: Dr. Dorman on 05-06-2022 Platelet mean volume (Bld) [Entitic vol] 10.7 fL 6.2-12.0 [facility] Determination of erythrocyte mean corpuscular volume (MCV)Ordered By: Dr. Dorman on 05-06-2022 MCV (RBC) [Entitic vol] 80.0 fL 81-99 [facility] Hematocrit Auto (Bld) [Volum e fraction]Ordered By: Dr. Dorman on 05-06-2022 Hematocrit (Bld) [Volume fraction] 39.5 % 37-47 [facility] Laboratory - Chemistry and C hemistry - challengeOrdered By: Dr. Dorman on 05-06-2022 ALP [Catalytic activity/Vol] 69 U/L 45-117 [facility] ALT [Catalytic activity/Vol] 18 U/L 13-56 [facility] CO2 [Moles/Vol] 24.0 mmol/L 21.0-32.0 [facility] Globulin (S) [Mass/Vol] 3.8 g/dL 2.2-4.2 [facility] Lipase [Catalytic activity/Vol] 201 U/L 73-393 [facility] Urea nitrogen/Creatinine [Mass ratio] 8.4 mg/mg 10-20 [facility] Laboratory - Hematology and Cell countsOrdered By: Dr. Dorman on 05-06-2022 Erythrocyte distribution width (RBC) [Entitic vol] 43.1 fL 35.1-43.9 [facility] Erythrocyte distribution width (RBC) [Ratio] 14.8 % 11.6-14.6 [facility] Immature granulocytes/100 WBC (Bld) 0.300 % 0.0-0.9 [facility] Comment on above: IG% - Immature Granu locytes (promyelocytes, myelocytes and metamyelocytes) > 1% indicates that a LEFT SHIFT is Present. MCH (RBC) [Entitic mass] 26.1 pg 27.0-32.0 [facility] Nucleated RBC/100 WBC (Bld) [Ratio] 0 % 0-5 [facility] MCHC Auto (RBC) [Mass/Vol]Or dered By: Dr. Dorman on 05-06-2022 MCHC (RBC) [Mass/Vol] 32.7 g/dL 32-36 [facility] No Panel InformationOrdered By: Dr. Dorman on 05-06-2022 Estimated Creatinine Clearance Calc 83.41 ml/min [facility] Estimated GFR (MDRD) Amer 95 mL/min >60 [facility] Comment on above: GFR Calc Estimated GFR (MDRD) Non-Af Amer 78 mL/min >60 [facility] Comment on above: Non- GFR Calc Platelets bldOrdered By: Dr. Dorman on 05-06-2022 Platelets (Bld) [#/Vol] 409 10*3/uL 150-450 [facility] Serum or plasma albumin ana urement (mass/volume)Ordered By: Dr. Dorman on 05-06-2022 Albumin [Mass/Vol] 4.2 g/dL 3.2-5.0 [facility] Serum or plasma albumin/glob ulin mass ratioOrdered By: Dr. Dorman on 05-06-2022 Albumin/Globulin [Mass ratio] 1.1 {ratio} 0.9-2.4 [facility] Serum or plasma calcium ana urement (mass/volume)Ordered By: Dr. Dorman on 05-06-2022 Calcium [Mass/Vol] 9.4 mg/dL 8.5-10.1 [facility] Serum or plasma creatinine m easurement (mass/volume)Ordered By: Dr. Dorman on 05-06-2022 Creatinine [Mass/Vol] 0.96 mg/dL 0.55-1.02 [facility] Comment on above: The validity of the calculated GFR & GFRAA in patients over 70 years has not been determined. Clinical correlation is essential. Serum or plasma urea nitroge n measurement (mass/volume)Ordered By: Dr. Dorman on 05-06-2022 Urea nitrogen [Mass/Vol] 8 mg/dL 7-18 [facility] Thin prep Papanicolaou smear with manual screeningOrdered By: Dr. Dorman on 05-06-2022 Thin prep Papanicolaou smear with manual screening 10 U/L 15-37 [facility] Thin prep Papanicolaou smear with manual screening 9 5-15 [facility] Absolute lymphocyte countOrd ered By: Dr. Arizmendi on 05-05-2022 Lymphocytes Auto (Unsp spec) [#/Vol] 3.28 10*3/uL 0.83-4.51 [facility] Basophil percentageOrdered B y: Dr. Arizmendi on 05-05-2022 Basophils/100 WBC (Bld) 0.5 % 0-1 [facility] Bilirubin [Mass/Vol] 0.50 mg/dL 0.20-1.00 [facility] [place] Comment on above: For patients on eltr ombopag therapy, use of Dimension [place] TBIL is not recommended. Chloride [Moles/Vol] 108 mmol/L 98-107 [facility] [place] Eosinophils/100 WBC (Bld) 2.4 % 0-5 [facility] Glucose [Mass/Vol] 97 mg/dL 74-106 [facility] Neutrophils (Bld) [#/Vol] 6.4 10*3/uL 2.0-7.7 [facility] Neutrophils/100 WBC (Bld) 60.1 % 47-70 [facility] Potassium [Moles/Vol] 3.3 mmol/L 3.5-5.1 [facility] Protein [Mass/Vol] 7.8 g/dL 6.4-8.2 [facility] Sodium [Moles/Vol] 139 mmol/L 136-145 [facility] WBC (Bld) [#/Vol] 10.7 10*3/uL 4.4-11.0 [facility] Beta hCG serum qualOrdered B y: Dr. Arizmendi on 05-05-2022 Beta HCG ( test) Ql Negative [facility] Blood erythrocytes count (nu mber/volume)Ordered By: Dr. Arizmendi on 05-05-2022 RBC (Bld) [#/Vol] 4.88 10*6/uL 4.2-5.4 [facility] Blood hemoglobin measurement (mass/volume)Ordered By: Dr. Arizmendi on 05-05-2022 Hemoglobin (Bld) [Mass/Vol] 12.5 g/dL 12.0-15.0 [facility] Blood lymphocytes/100 leukoc ytesOrdered By: Dr. Arizmendi on 05-05-2022 Lymphocytes/100 WBC (Bld) 30.8 % 19-41 [facility] Blood monocytes/100 leukocyt esOrdered By: Dr. Arizmendi on 05-05-2022 Monocytes/100 WBC (Bld) 5.9 % 0-10 [facility] Blood platelet mean volumeOr dered By: Dr. Arizmendi on 05-05-2022 Platelet mean volume (Bld) [Entitic vol] 10.8 fL 6.2-12.0 [facility] Determination of erythrocyte mean corpuscular volume (MCV)Ordered By: Dr. Arizmendi on 05-05-2022 MCV (RBC) [Entitic vol] 79.3 fL 81-99 [facility] Hematocrit Auto (Bld) [Volum e fraction]Ordered By: Dr. Arizmendi on 05-05-2022 Hematocrit (Bld) [Volume fraction] 38.7 % 37-47 [facility] Laboratory - Chemistry and C hemistry - challengeOrdered By: Dr. Arizmendi on 05-05-2022 ALP [Catalytic activity/Vol] 67 U/L 45-117 [facility] ALT [Catalytic activity/Vol] 17 U/L 13-56 [facility] CO2 [Moles/Vol] 24.0 mmol/L 21.0-32.0 [facility] Globulin (S) [Mass/Vol] 3.7 g/dL 2.2-4.2 [facility] Lipase [Catalytic activity/Vol] 561 U/L 73-393 [facility] Urea nitrogen/Creatinine [Mass ratio] 7.4 mg/mg 10-20 [facility] Laboratory - Hematology and Cell countsOrdered By: Dr. Arizmendi on 05-05-2022 Erythrocyte distribution width (RBC) [Entitic vol] 42.8 fL 35.1-43.9 [facility] Erythrocyte distribution width (RBC) [Ratio] 14.9 % 11.6-14.6 [facility] Immature granulocytes/100 WBC (Bld) 0.300 % 0.0-0.9 [facility] Comment on above: IG% - Immature Granu locytes (promyelocytes, myelocytes and metamyelocytes) > 1% indicates that a LEFT SHIFT is Present. MCH (RBC) [Entitic mass] 25.6 pg 27.0-32.0 [facility] Nucleated RBC/100 WBC (Bld) [Ratio] 0 % 0-5 [facility] MCHC Auto (RBC) [Mass/Vol]Or dered By: Dr. Arizmendi on 05-05-2022 MCHC (RBC) [Mass/Vol] 32.3 g/dL 32-36 [facility] No Panel InformationOrdered By: Dr. Arizmendi on 05-05-2022 Estimated Creatinine Clearance Calc 97.65 ml/min [facility] Estimated GFR (MDRD) Amer 114 mL/min >60 [facility] Comment on above: GFR Calc Estimated GFR (MDRD) Non-Af Amer 94 mL/min >60 [facility] Comment on above: Non- GFR Calc Platelets bldOrdered By: Dr. Arizmendi on 05-05-2022 Platelets (Bld) [#/Vol] 416 10*3/uL 150-450 [facility] Serum or plasma albumin ana urement (mass/volume)Ordered By: Dr. Arizmendi on 05-05-2022 Albumin [Mass/Vol] 4.1 g/dL 3.2-5.0 [facility] Serum or plasma albumin/glob ulin mass ratioOrdered By: Dr. Arizmendi on 05-05-2022 Albumin/Globulin [Mass ratio] 1.1 {ratio} 0.9-2.4 [facility] Serum or plasma calcium ana urement (mass/volume)Ordered By: Dr. Arizmendi on 05-05-2022 Calcium [Mass/Vol] 9.1 mg/dL 8.5-10.1 [facility] Serum or plasma creatinine m easurement (mass/volume)Ordered By: Dr. Arizmendi on 05-05-2022 Creatinine [Mass/Vol] 0.82 mg/dL 0.55-1.02 [facility] Comment on above: The validity of the calculated GFR & GFRAA in patients over 70 years has not been determined. Clinical correlation is essential. Serum or plasma urea nitroge n measurement (mass/volume)Ordered By: Dr. Arizmendi on 05-05-2022 Urea nitrogen [Mass/Vol] 6 mg/dL 7-18 [facility] Thin prep Papanicolaou smear with manual screeningOrdered By: Dr. Arizmendi on 05-05-2022 Thin prep Papanicolaou smear with manual screening 11 U/L 15-37 [facility] Thin prep Papanicolaou smear with manual screening 7 5-15 [facility] Absolute lymphocyte countOrd ered By: Dr. Arizmendi on 02-13-2022 Lymphocytes Auto (Unsp spec) [#/Vol] 1.81 10*3/uL 0.83-4.51 [facility] Absolute lymphocyte countOrd ered By: Dr. Mendez on 02-13-2022 Lymphocytes Auto (Unsp spec) [#/Vol] 3.88 10*3/uL 0.83-4.51 [facility] Basophil percentageOrdered B y: Dr. Arizmendi on 02-13-2022 Basophils/100 WBC (Bld) 0.7 % 0-1 [facility] Bilirubin [Mass/Vol] 0.70 mg/dL 0.20-1.00 [facility] [place] Comment on above: For patients on eltr ombopag therapy, use of Dimension [place] TBIL is not recommended. Chloride [Moles/Vol] 107 mmol/L 98-107 [facility] [place] Eosinophils/100 WBC (Bld) 1.9 % 0-5 [facility] Glucose [Mass/Vol] 90 mg/dL 74-106 [facility] Neutrophils (Bld) [#/Vol] 5.0 10*3/uL 2.0-7.7 [facility] Neutrophils/100 WBC (Bld) 66.5 % 47-70 [facility] Potassium [Moles/Vol] 3.4 mmol/L 3.5-5.1 [facility] Protein [Mass/Vol] 8.2 g/dL 6.4-8.2 [facility] Sodium [Moles/Vol] 138 mmol/L 136-145 [facility] WBC (Bld) [#/Vol] 7.5 10*3/uL 4.4-11.0 [facility] Basophil percentageOrdered B y: Dr. Mendez on 02-13-2022 Basophils/100 WBC (Bld) 0.8 % 0-1 [facility] Bilirubin [Mass/Vol] 0.50 mg/dL 0.20-1.00 [facility] [place] Comment on above: For patients on eltr ombopag therapy, use of [place] TBIL is not recommended. Chloride [Moles/Vol] 105 mmol/L 98-107 [facility] [place] Eosinophils/100 WBC (Bld) 2.6 % 0-5 [facility] Glucose [Mass/Vol] 88 mg/dL 74-106 [facility] Neutrophils (Bld) [#/Vol] 6.2 10*3/uL 2.0-7.7 [facility] Neutrophils/100 WBC (Bld) 55.0 % 47-70 [facility] Potassium [Moles/Vol] 3.6 mmol/L 3.5-5.1 [facility] Protein [Mass/Vol] 7.9 g/dL 6.4-8.2 [facility] Sodium [Moles/Vol] 138 mmol/L 136-145 [facility] WBC (Bld) [#/Vol] 11.3 10*3/uL 4.4-11.0 [facility] Beta hCG serum qualOrdered B y: Dr. Arizmendi on 02-13-2022 Beta HCG ( test) Ql Negative [facility] Blood erythrocytes count (nu mber/volume)Ordered By: Dr. Arizmendi on 02-13-2022 RBC (Bld) [#/Vol] 5.03 10*6/uL 4.2-5.4 [facility] Blood erythrocytes count (nu mber/volume)Ordered By: Dr. Mendez on 02-13-2022 RBC (Bld) [#/Vol] 4.86 10*6/uL 4.2-5.4 [facility] Blood hemoglobin measurement (mass/volume)Ordered By: Dr. Arizmendi on 02-13-2022 Hemoglobin (Bld) [Mass/Vol] 12.6 g/dL 12.0-15.0 [facility] Blood hemoglobin measurement (mass/volume)Ordered By: Dr. Mendez on 02-13-2022 Hemoglobin (Bld) [Mass/Vol] 11.6 g/dL 12.0-15.0 [facility] Blood lymphocytes/100 leukoc ytesOrdered By: Dr. Arizmendi on 02-13-2022 Lymphocytes/100 WBC (Bld) 24.1 % 19-41 [facility] Blood lymphocytes/100 leukoc ytesOrdered By: Dr. Mendez on 02-13-2022 Lymphocytes/100 WBC (Bld) 34.5 % 19-41 [facility] Blood monocytes/100 leukocyt esOrdered By: Dr. Arizmendi on 02-13-2022 Monocytes/100 WBC (Bld) 6.5 % 0-10 [facility] Blood monocytes/100 leukocyt esOrdered By: Dr. Mendez on 02-13-2022 Monocytes/100 WBC (Bld) 6.8 % 0-10 [facility] Blood platelet mean volumeOr dered By: Dr. Arizmendi on 02-13-2022 Platelet mean volume (Bld) [Entitic vol] 10.5 fL 6.2-12.0 [facility] Blood platelet mean volumeOr dered By: Dr. Mendez on 02-13-2022 Platelet mean volume (Bld) [Entitic vol] 11.5 fL 6.2-12.0 [facility] Determination of erythrocyte mean corpuscular volume (MCV)Ordered By: Dr. Arizmendi on 02-13-2022 MCV (RBC) [Entitic vol] 74.6 fL 81-99 [facility] Determination of erythrocyte mean corpuscular volume (MCV)Ordered By: Dr. Mendez on 02-13-2022 MCV (RBC) [Entitic vol] 75.7 fL 81-99 [facility] Hematocrit Auto (Bld) [Volum e fraction]Ordered By: Dr. Arizmendi on 02-13-2022 Hematocrit (Bld) [Volume fraction] 37.5 % 37-47 [facility] Hematocrit Auto (Bld) [Volum e fraction]Ordered By: Dr. Mendez on 02-13-2022 Hematocrit (Bld) [Volume fraction] 36.8 % 37-47 [facility] Laboratory - Chemistry and C hemistry - challengeOrdered By: Dr. Arizmendi on 02-13-2022 ALP [Catalytic activity/Vol] 63 U/L 45-117 [facility] ALT [Catalytic activity/Vol] 14 U/L 13-56 [facility] CO2 [Moles/Vol] 23.0 mmol/L 21.0-32.0 [facility] Globulin (S) [Mass/Vol] 4.0 g/dL 2.2-4.2 [facility] Lipase [Catalytic activity/Vol] 69 U/L 73-393 [facility] Urea nitrogen/Creatinine [Mass ratio] 9.3 mg/mg 11-26 [facility] Laboratory - Chemistry and C hemistry - challengeOrdered By: Dr. Mendez on 02-13-2022 ALP [Catalytic activity/Vol] 60 U/L 45-117 [facility] ALT [Catalytic activity/Vol] 16 U/L 13-56 [facility] CO2 [Moles/Vol] 24.0 mmol/L 21.0-32.0 [facility] Globulin (S) [Mass/Vol] 4.1 g/dL 2.2-4.2 [facility] Lipase [Catalytic activity/Vol] 92 U/L 73-393 [facility] Urea nitrogen/Creatinine [Mass ratio] 9.8 mg/mg -20 [facility] Laboratory - Hematology and Cell countsOrdered By: Dr. Arizmendi on 02-13-2022 Erythrocyte distribution width (RBC) [Entitic vol] 46.9 fL 35.1-43.9 [facility] Erythrocyte distribution width (RBC) [Ratio] 17.7 % 11.6-14.6 [facility] Immature granulocytes/100 WBC (Bld) 0.300 % 0.0-0.9 [facility] Comment on above: IG% - Immature Granu locytes (promyelocytes, myelocytes and metamyelocytes) > 1% indicates that a LEFT SHIFT is Present. MCH (RBC) [Entitic mass] 25.0 pg 27.0-32.0 [facility] Nucleated RBC/100 WBC (Bld) [Ratio] 0 % 0-5 [facility] Laboratory - Hematology and Cell countsOrdered By: Dr. Mendez on 02-13-2022 Erythrocyte distribution width (RBC) [Entitic vol] 47.8 fL 35.1-43.9 [facility] Erythrocyte distribution width (RBC) [Ratio] 17.9 % 11.6-14.6 [facility] Immature granulocytes/100 WBC (Bld) 0.300 % 0.0-0.9 [facility] Comment on above: IG% - Immature Granu locytes (promyelocytes, myelocytes and metamyelocytes) > 1% indicates that a LEFT SHIFT is Present. MCH (RBC) [Entitic mass] 23.9 pg 27.0-32.0 [facility] Nucleated RBC/100 WBC (Bld) [Ratio] 0 % 0-5 [facility] MCHC Auto (RBC) [Mass/Vol]Or dered By: Dr. Arizmendi on 02-13-2022 MCHC (RBC) [Mass/Vol] 33.6 g/dL [address] [place] [address] Comment on above: Delta: 31.5 on 02/13 [facility] Auto (RBC) [Mass/Vol]Or dered By: Dr. Mendez on 02-13-2022 MCHC (RBC) [Mass/Vol] 31.5 g/dL -36 [facility] No Panel InformationOrdered By: Dr. Arizmendi on 02-13-2022 Estimated Creatinine Clearance Calc 93.11 ml/min [facility] Estimated GFR (MDRD) Amer 106 mL/min >60 [facility] Comment on above: GFR Calc Estimated GFR (MDRD) Non-Af Amer 88 mL/min >60 [facility] Comment on above: Non- GFR Calc No Panel InformationOrdered By: Dr. Mendez on 02-13-2022 Estimated Creatinine Clearance Calc 97.65 ml/min [facility] Estimated GFR (MDRD) Amer 114 mL/min >60 [facility] Comment on above: GFR Calc Estimated GFR (MDRD) Non-Af Amer 94 mL/min >60 [facility] Comment on above: Non- GFR Calc Platelets bldOrdered By: Dr. Arizmendi on 02-13-2022 Platelets (Bld) [#/Vol] 278 10*3/uL 150-450 [facility] Platelets bldOrdered By: Dr. Mendez on 02-13-2022 Platelets (Bld) [#/Vol] 325 10*3/uL 150-450 [facility] Serum or plasma albumin ana urement (mass/volume)Ordered By: Dr. Arizmendi on 02-13-2022 Albumin [Mass/Vol] 4.2 g/dL 3.2-5.0 [facility] Serum or plasma albumin ana urement (mass/volume)Ordered By: Dr. Mendez on 02-13-2022 Albumin [Mass/Vol] 3.8 g/dL 3.2-5.0 [facility] Serum or plasma albumin/glob ulin mass ratioOrdered By: Dr. Arizmendi on 02-13-2022 Albumin/Globulin [Mass ratio] 1.0 {ratio} 0.9-2.4 [facility] Serum or plasma albumin/glob ulin mass ratioOrdered By: Dr. Mendez on 02-13-2022 Albumin/Globulin [Mass ratio] 0.9 {ratio} 0.9-2.4 [facility] Serum or plasma calcium ana urement (mass/volume)Ordered By: Dr. Arizmendi on 02-13-2022 Calcium [Mass/Vol] 9.4 mg/dL 8.5-10.1 [facility] Serum or plasma calcium ana urement (mass/volume)Ordered By: Dr. Mendez on 02-13-2022 Calcium [Mass/Vol] 9.2 mg/dL 8.5-10.1 [facility] Serum or plasma creatinine m easurement (mass/volume)Ordered By: Dr. Arizmendi on 02-13-2022 Creatinine [Mass/Vol] 0.86 mg/dL 0.55-1.02 [facility] Comment on above: The validity of the calculated GFR & GFRAA in patients over 70 years has not been determined. Clinical correlation is essential. Serum or plasma creatinine m easurement (mass/volume)Ordered By: Dr. Mendez on 02-13-2022 Creatinine [Mass/Vol] 0.82 mg/dL 0.55-1.02 [facility] Comment on above: The validity of the calculated GFR & GFRAA in patients over 70 years has not been determined. Clinical correlation is essential. Serum or plasma urea nitroge n measurement (mass/volume)Ordered By: Dr. Arizmendi on 02-13-2022 Urea nitrogen [Mass/Vol] 8 mg/dL 08-24 [facility] Serum or plasma urea nitroge n measurement (mass/volume)Ordered By: Dr. Mendez on 02-13-2022 Urea nitrogen [Mass/Vol] 8 mg/dL 08-24 [facility] Thin prep Papanicolaou smear with manual screeningOrdered By: Dr. Arizmendi on 02-13-2022 Thin prep Papanicolaou smear with manual screening 9 U/L [facility] Thin prep Papanicolaou smear with manual screening 8 06-21 [facility] Thin prep Papanicolaou smear with manual screeningOrdered By: Dr. Mendez on 02-13-2022 Thin prep Papanicolaou smear with manual screening 6 U/L [facility] Thin prep Papanicolaou smear with manual screening 9 06-21 [facility] Laboratory - Chemistry and C hemistry - challengeOrdered By: Dr. Green on 01-28-2022 HCG ( test) Ql (U) Negative [facility] Comment on above: Very dilute urine sp ecimens, as indicated by a low specificgravity, may not contain underwriting account representative levels of hCG. If is still suspected, a first morning urinespecimen should be collected 48 hours later and tested. .Urinalysis Microscopic (AO) on 12-25-2021 UA RBC None Seen Normal None Seen Count Includes [facility] ([place]) Comment on above: Performed By: #### U AMICAO, UA, PREGU #### [id number] [place], [place] [address] UA Squam Epithelial 5-10 Abnormal None Seen [facility] ([place]) Comment on above: Performed By: #### U AMICAO, UA, PREGU #### [facility] [address] [place], [place] [address] UA WBC 0-5 Abnormal None Seen Count Includes [facility] ([place]) Comment on above: Performed By: #### U AMICAO, UA, PREGU #### [facility] [address] [place], [place] [address] CT ABDOMEN/PELVIS W/O CONTRA STon 12-25-2021 CT ABDOMEN/PELVIS W/O CONTRAST ORIGINAL EXAMINATION: CT OF THE ABDOMEN AND PELVIS WITHOUT [id number]/18/2022 10:28 am TECHNIQUE: CT of the abdomen [...] by: Christian Nicole MD Preliminary Report By: Em Aragon Electronically signed By Christian Nicole MD Dictated Date: 12/25/2021 10:36:17 AM Prelim Date: 12/25/2021 11:18:46 AM Sign Date: 12/25/2021 11:18:46 AM Ordering Provider: MARICRUZ ZAMUDIO [facility] ([place]) LABORATORYOrdered By: Zion Saba on 12-25-2021 Appearance [...] HCG ( test) Ql (U) Negative Normal Count Includes [facility] ([place]) Comment on above: Performed By: #### U AMICAO, UA, PREGU #### [address] [address] test (u) int Not detected Invalid Interpretation Code Count Includes [facility] ([place]) Comment on above: Performed By: #### U AMICAO, UA, PREGU #### [address] [address] UAon 12-25-2021 Color (U) Yellow Normal Count Includes [facility] ([place]) Comment on above: Performed By: #### U AMICAO, UA, PREGU #### [address] [address] Glucose (U) [Mass/Vol] Negative Normal Negative Count Includes [facility] ([place]) Comment on above: Performed By: #### U AMICAO, UA, PREGU #### [address] [address] Ketones Ql (U) 15 mg/dL Abnormal Negative Count Includes [facility] ([place]) Comment on above: Performed By: #### U AMICAO, UA, PREGU #### [address] [address] UA Appear Clear Normal Clear Count Includes [facility] ([place]) Comment on above: Performed By: #### U AMICAO, UA, PREGU #### [address] [address] UA Bili Small Abnormal Negative Count Includes [facility] ([place] Comment on above: Performed By: #### U AMICAO, UA, PREGU #### [address] [address] UA Blood Negative Normal Negative Count Includes [facility] ([place]) Comment on above: Performed By: #### U AMICAO, UA, PREGU #### [address] [address] UA Leuk Est Trace Abnormal Negative Count Includes [facility] ([place] Comment on above: Performed By: #### U AMICAO, UA, PREGU #### [place] [address] UA Nitrite Negative Normal Negative Count Includes [facility] ([place] Comment on above: Performed By: #### U AMICAO, UA, PREGU #### [place] [address] UA pH 7.0 Normal 5.0 - 8.0 Count Includes [facility] ([place]) Comment on above: Performed By: #### U AMICAO, UA, PREGU #### [place] [address] UA Protein 30 mg/dL Normal Negative Count Includes [facility] ([place] Comment on above: Performed By: #### U AMICAO, UA, PREGU #### [place] [address] UA Spec Grav >=1.030 Abnormal 1.015-1.025 Count Includes [facility] ([place]) Comment on above: Performed By: #### U AMICAO, UA, PREGU #### [place] [address] UA Specimen Type Clean Catch Normal Count Includes [facility] ([place]) Comment on above: Performed By: #### U AMICAO, UA, PREGU #### [address] [address] UA Urobilinogen 0.2 E.U./dL Normal 0.2-1.0 Count Includes [facility] ([place]) Comment on above: Performed By: #### U AMICAO, UA, PREGU #### [place] [address] Absolute lymphocyte counton 12-24-2021 Lymphocytes Auto (Unsp spec) [#/Vol] 1.67 10*3/uL 0.83-4.51 [facility] Work Phone: Basophil percentageon 2021 Basophils/100 WBC (Bld) 0.5 % 0-1 [facility] Work Phone: Bilirubin [Mass/Vol] 0.50 mg/dL 0.20-1.00 [facility] [place] Work Phone: Comment on above: For patients on eltr ombopag therapy, use of Dimension [place] TBIL is not recommended. Chloride [Moles/Vol] 109 mmol/L 98-107 [facility] [place] Work Phone: [phone] Eosinophils/100 WBC (Bld) 0.6 % 0-5 [facility] Work Phone: [phone] Glucose [Mass/Vol] 98 mg/dL 74-106 [facility] Work Phone: [phone] Neutrophils (Bld) [#/Vol] 6.3 10*3/uL 2.0-7.7 [facility] Work Phone: [phone] Neutrophils/100 WBC (Bld) 73.3 % 47-70 [facility] Work Phone: [phone] Potassium [Moles/Vol] 3.7 mmol/L 3.5-5.1 [facility] Work Phone: [phone] Protein [Mass/Vol] 8.1 g/dL 6.4-8.2 [facility] Work Phone: Sodium [Moles/Vol] 140 mmol/L 136-145 [facility] Work Phone: [phone] WBC (Bld) [#/Vol] 8.6 10*3/uL 4.4-11.0 [facility] Work Phone: [phone] Beta hCG serum qualon 2021 Beta HCG ( test) Ql Negative [facility] Work Phone: [phone] Blood erythrocytes count (nu mber/volume)on 12-24-2021 RBC (Bld) [#/Vol] 4.92 10*6/uL 4.2-5.4 [facility] Work Phone: Blood hemoglobin measurement (mass/volume)on 12-24-2021 Hemoglobin (Bld) [Mass/Vol] 11.1 g/dL 12.0-15.0 [facility] Work Phone: Blood lymphocytes/100 leukoc yteson 12-24-2021 Lymphocytes/100 WBC (Bld) 19.5 % 19-41 [facility] Work Phone: Blood monocytes/100 leukocyt eson 12-24-2021 Monocytes/100 WBC (Bld) 5.7 % 0-10 [facility] Work Phone: Blood platelet mean volumeon 12-24-2021 Platelet mean volume (Bld) [Entitic vol] 10.9 fL 6.2-12.0 [facility] Work Phone: Determination of erythrocyte mean corpuscular volume (MCV)on 12-24-2021 MCV (RBC) [Entitic vol] 71.5 fL 81-99 [facility] Work Phone: Hematocrit Auto (Bld) [Volum e fraction]on 12-24-2021 Hematocrit (Bld) [Volume fraction] 35.2 % 37-47 [facility] Work Phone: Laboratory - Chemistry and C hemistry - challengeon 12-24-2021 ALP [Catalytic activity/Vol] 71 U/L 45-117 [facility] Work Phone: ALT [Catalytic activity/Vol] 20 U/L 13-56 [facility] Work Phone: CO2 [Moles/Vol] 24.0 mmol/L 21.0-32.0 [facility] Work Phone: Globulin (S) [Mass/Vol] 4.2 g/dL 2.2-4.2 [facility] Work Phone: Lipase [Catalytic activity/Vol] 77 U/L 73-393 [facility] Work Phone: Urea nitrogen/Creatinine [Mass ratio] 11.1 mg/mg 10-20 [facility] Work Phone: Laboratory - Hematology and Cell countson 12-24-2021 Erythrocyte distribution width (RBC) [Entitic vol] 43.4 fL 35.1-43.9 [facility] Work Phone: Erythrocyte distribution width (RBC) [Ratio] 17.3 % 11.6-14.6 [facility] Work Phone: Immature granulocytes/100 WBC (Bld) 0.400 % 0.0-0.9 [facility] Work Phone: Comment on above: IG% - Immature Granu locytes (promyelocytes, myelocytes and metamyelocytes) > 1% indicates that a LEFT SHIFT is Present. MCH (RBC) [Entitic mass] 22.6 pg 27.0-32.0 [facility] Work Phone: Nucleated RBC/100 WBC (Bld) [Ratio] 0 % 0-5 [facility] Work Phone: MCHC Auto (RBC) [Mass/Vol]on 12-24-2021 MCHC (RBC) [Mass/Vol] 31.5 g/dL 32-36 [facility] Work Phone: No Panel Informationon 12-24 Estimated Creatinine Clearance Calc 111.22 ml/min [facility] Work Phone: Estimated GFR (MDRD) Amer 132 mL/min >60 [facility] Work Phone: Comment on above: GFR Calc Estimated GFR (MDRD) Non-Af Amer 109 mL/min >60 [facility] Work Phone: Comment on above: Non- GFR Calc Platelets bldon 12-24-2021 Platelets (Bld) [#/Vol] 353 10*3/uL 150-450 [facility] Work Phone: Serum or plasma albumin ana urement (mass/volume)on 12-24-2021 Albumin [Mass/Vol] 3.9 g/dL 3.2-5.0 [facility] Work Phone: Serum or plasma albumin/glob ulin mass ratioon 12-24-2021 Albumin/Globulin [Mass ratio] 0.9 {ratio} 0.9-2.4 [facility] Work Phone: Serum or plasma calcium ana urement (mass/volume)on 12-24-2021 Calcium [Mass/Vol] 9.2 mg/dL 8.5-10.1 [facility] Work Phone: Serum or plasma creatinine m easurement (mass/volume)on 12-24-2021 Creatinine [Mass/Vol] 0.72 mg/dL 0.55-1.02 [facility] Work Phone: Comment on above: The validity of the calculated GFR & GFRAA in patients over 70 years has not been determined. Clinical correlation is essential. Serum or plasma urea nitroge n measurement (mass/volume)on 12-24-2021 Urea nitrogen [Mass/Vol] 8 mg/dL 7-18 [facility] Work Phone: Thin prep Papanicolaou smear with manual screeningon 12-24-2021 Thin prep Papanicolaou smear with manual screening 15 U/L 15-37 [facility] Work Phone: Thin prep Papanicolaou smear with manual screening 7 5-15 [facility] Work Phone: Cervical or vagninal specime n microscopic examination by cytology stain (reported ason 12-15-2021 Cytology report Cyto stain Doc (Cvx/Vag) Comment . [facility] Work Phone: Comment on above: The Pap smear is a s creening test designed to aid in thedetection of premalignant and malignant conditions of theuterine cervix. It is not a diagnostic procedure andshould not be used as the sole means of detecting cervicalcancer. Both false-positive and false-negative reports dooccur. Laboratory - Cytologyon Food Production Manager Cyto stain Nom (Cvx/Vag) [ID] Comment . [facility] Work Phone: Comment on above: Camila Kyle echnologist ([facility]) Laboratory - Miscellaneous t estson 12-15-2021 Service comment (Unsp spec) [Interp] Comment . [facility] Work Phone: Comment on above: This liquid based Th inPrep(R) pap test was screened withthe use of an image guided system. Service comment (Unsp spec) [Interp] . . [facility] Work Phone: No Panel Informationon 12-15 Human Papillomavirus Screen Comment . [facility] Work Phone: Comment on above: The HPV DNA reflex zelalem morton were not met with this specimenresult therefore, no HPV testing was performed.Performed at: [address] [id number] Director: Ronit Ang MD, Phone: [phone] Pap Smear QC Review Comment . [facility] Work Phone: Comment on above: Zelalem Cabrera ytotechnologist ([facility]) Pathology report final diagnosis Narrative Comment . [facility] Work Phone: Comment on above: NEGATIVE FOR INTRAEP ITHELIAL LESION OR MALIGNANCY.THIS SPECIMEN WAS RESCREENED PART OF OUR COUNSELING SPECIALIST PROGRAM. STREP A MOLECULAR (POC)on Procedural Control Valid Clecount includes [facility] Strep A (POCT) Negative Negative [facility] XR HAND GENERAL 3V PA/LAT/OB L RIGHTon 10-27-2021 [facility] XR Hand - right PA and Later al and Obliqueon 10-27-2021 IMPRESSION: No acute osseous abnormality identified. Handle Turner: KOLBY Transcribe Date/Time: Oct 27 2021 6:42P Dictated by : KERRY GIBSON MD This examination was interpreted and the report reviewed and electronically signed by: KERRY GIBSON MD on Oct 27 2021 6:44PM [facility] DIVISION OF RADIOLOGY * * *Final Report* [...] tissue abnormality identified. DIVISION OF RADIOLOGY Provider, [facility] - 10/27/2021 * * *Final Report* * [...] IMPRESSION IMPRESSION: No acute osseous abnormality identified. Handle Turner: PSCB Transcribe Date/Time: Oct 27 2021 6:42P Dictated by : KERRY GIBSON MD This examination was interpreted and the report reviewed and electronically signed by: KERRY GIBSON MD on Oct 27 2021 6:44PM EST [facility] Radiology Study observation (narrative) [facility] XR Hand - right PA and Later al and ObliqueOrdered By: [facility] Provider on 10-27-2021 [facility] INR in Blood by Coagulation assayon 09-16-2021 INR Coag (Bld) [Relative time] 1.1 {INR} [facility] Work Phone: Laboratory - Chemistry and C hemistry - challengeon 09-16-2021 Magnesium [Mass/Vol] 2.3 mg/dL 1.6-2.6 [facility] [place] Work Phone: Laboratory - Coagulationon 0 09-16-2021 aPTT Coag (Bld) [Time] 34.6 s 24.1-36.2 [facility] Work Phone: PT Coag (PPP) [Time] 14.3 s 11.7-14.9 [facility] Work Phone: Absolute lymphocyte counton 09-15-2021 Lymphocytes Auto (Unsp spec) [#/Vol] 1.89 10*3/uL 0.83-4.51 [facility] Work Phone: [phone] Basophil percentageon 2021 Basophils/100 WBC (Bld) 0.7 % 0-1 [facility] Work Phone: [phone] Bilirubin [Mass/Vol] 0.50 mg/dL 0.20-1.00 [facility] Work Phone: Comment on above: For patients on eltr ombopag therapy, use of [place] TBIL is not recommended. Chloride [Moles/Vol] 105 mmol/L 98-107 [facility] Work Phone: [phone] Eosinophils/100 WBC (Bld) 3.4 % 0-5 [facility] Work Phone: [phone] Glucose [Mass/Vol] 91 mg/dL 74-106 [facility] Work Phone: Neutrophils (Bld) [#/Vol] 4.3 10*3/uL 2.0-7.7 [facility] Work Phone: Neutrophils/100 WBC (Bld) 61.6 % 47-70 [facility] Work Phone: [phone] Potassium [Moles/Vol] 3.8 mmol/L 3.5-5.1 [facility] Work Phone: [phone] Protein [Mass/Vol] 7.3 g/dL 6.4-8.2 [facility] Work Phone: Sodium [Moles/Vol] 139 mmol/L 136-145 [facility] Work Phone: WBC (Bld) [#/Vol] 7.0 10*3/uL 4.4-11.0 [facility] Work Phone: Beta hCG serum qualon 2021 Beta HCG ( test) Ql Negative [facility] Work Phone: Blood erythrocytes count (nu mber/volume)on 09-15-2021 RBC (Bld) [#/Vol] 3.54 10*6/uL 4.2-5.4 [facility] Work Phone: Blood hemoglobin measurement (mass/volume)on 09-15-2021 Hemoglobin (Bld) [Mass/Vol] 9.8 g/dL 12.0-15.0 [facility] Work Phone: Blood lymphocytes/100 leukoc yteson 09-15-2021 Lymphocytes/100 WBC (Bld) 27.0 % 19-41 [facility] Work Phone: Blood monocytes/100 leukocyt eson 09-15-2021 Monocytes/100 WBC (Bld) 6.4 % 0-10 [facility] Work Phone: Blood platelet mean volumeon 09-15-2021 Platelet mean volume (Bld) [Entitic vol] 10.5 fL 6.2-12.0 [facility] Work Phone: Determination of erythrocyte mean corpuscular volume (MCV)on 09-15-2021 MCV (RBC) [Entitic vol] 84.7 fL 81-99 [facility] Work Phone: Direct bilirubinon Bilirubin.direct [Mass/Vol] 0.25 mg/dL 0.00-0.30 [facility] Work Phone: Hematocrit Auto (Bld) [Volum e fraction]on 09-15-2021 Hematocrit (Bld) [Volume fraction] 30.0 % 37-47 [facility] Work Phone: Laboratory - Chemistry and C hemistry - challengeon 09-15-2021 ALP [Catalytic activity/Vol] 70 U/L 45-117 [facility] Work Phone: ALT [Catalytic activity/Vol] 15 U/L 13-56 [facility] Work Phone: CO2 [Moles/Vol] 29.0 mmol/L 21.0-32.0 [facility] Work Phone: Globulin (S) [Mass/Vol] 3.7 g/dL 2.2-4.2 [facility] Work Phone: HCG ( test) Ql (U) Negative [facility] Work Phone: Comment on above: Very dilute urine sp ecimens, as indicated by a low specificgravity, may not contain underwriting account representative levels of hCG. If is still suspected, a first morning urinespecimen should be collected 48 hours later and tested. Lipase [Catalytic activity/Vol] 82 U/L 73-393 [facility] Work Phone: Urea nitrogen/Creatinine [Mass ratio] 7.0 mg/mg 10-20 [facility] Work Phone: Laboratory - Hematology and Cell countson 09-15-2021 Erythrocyte distribution width (RBC) [Entitic vol] 38.0 fL 35.1-43.9 [facility] Work Phone: Erythrocyte distribution width (RBC) [Ratio] 12.4 % 11.6-14.6 [facility] Work Phone: Immature granulocytes/100 WBC (Bld) 0.900 % 0.0-0.9 [facility] Work Phone: Comment on above: IG% - Immature Granu locytes (promyelocytes, myelocytes and metamyelocytes) > 1% indicates that a LEFT SHIFT is Present. MCH (RBC) [Entitic mass] 27.7 pg 27.0-32.0 [facility] Work Phone: Nucleated RBC/100 WBC (Bld) [Ratio] 0 % 0-5 [facility] Work Phone: MCHC Auto (RBC) [Mass/Vol]on 09-15-2021 MCHC (RBC) [Mass/Vol] 32.7 g/dL 32-36 [facility] Work Phone: No Panel Informationon 09-15 Estimated Creatinine Clearance Calc 90.11 ml/min [facility] Work Phone: Estimated GFR (MDRD) Amer 107 mL/min >60 [facility] Work Phone: Comment on above: GFR Calc Estimated GFR (MDRD) Non-Af Amer 88 mL/min >60 [facility] Work Phone: Comment on above: Non- GFR Calc Platelets bldon 09-15-2021 Platelets (Bld) [#/Vol] 343 10*3/uL 150-450 [facility] Work Phone: Serum or plasma albumin ana urement (mass/volume)on 09-15-2021 Albumin [Mass/Vol] 3.6 g/dL 3.2-5.0 [facility] Work Phone: Serum or plasma calcium ana urement (mass/volume)on 09-15-2021 Calcium [Mass/Vol] 8.7 mg/dL 8.5-10.1 [facility] Work Phone: Serum or plasma creatinine m easurement (mass/volume)on 09-15-2021 Creatinine [Mass/Vol] 0.86 mg/dL 0.55-1.02 [facility] Work Phone: Comment on above: The validity of the calculated GFR & GFRAA in patients over 70 years has not been determined. Clinical correlation is essential. Serum or plasma urea nitroge n measurement (mass/volume)on 09-15-2021 Urea nitrogen [Mass/Vol] 6 mg/dL 7-18 [facility] Work Phone: Thin prep Papanicolaou smear with manual screeningon 09-15-2021 Thin prep Papanicolaou smear with manual screening 21 U/L 15-37 [facility] Work Phone: Thin prep Papanicolaou smear with manual screening 5 5-15 [facility] Work Phone: Basophil percentageon 2021 WBC (Bld) [#/Vol] 6.7 10*3/uL 4.4-11.0 [facility] Work Phone: Blood erythrocytes count (nu mber/volume)on 09-04-2021 RBC (Bld) [#/Vol] 2.92 10*6/uL 4.2-5.4 [facility] Work Phone: Blood hemoglobin measurement (mass/volume)on 09-04-2021 Hemoglobin (Bld) [Mass/Vol] 8.3 g/dL 12.0-15.0 [facility] Work Phone: Blood platelet mean volumeon 09-04-2021 Platelet mean volume (Bld) [Entitic vol] 10.5 fL 6.2-12.0 [facility] Work Phone: Determination of erythrocyte mean corpuscular volume (MCV)on 09-04-2021 MCV (RBC) [Entitic vol] 89.0 fL 81-99 [facility] Work Phone: Hematocrit Auto (Bld) [Volum e fraction]on 09-04-2021 Hematocrit (Bld) [Volume fraction] 26.0 % 37-47 [facility] Work Phone: Laboratory - Hematology and Cell countson 09-04-2021 Erythrocyte distribution width (RBC) [Entitic vol] 39.6 fL 35.1-43.9 [facility] Work Phone: Erythrocyte distribution width (RBC) [Ratio] 12.3 % 11.6-14.6 [facility] Work Phone: MCH (RBC) [Entitic mass] 28.4 pg 27.0-32.0 [facility] Work Phone: MCHC Auto (RBC) [Mass/Vol]on 09-04-2021 MCHC (RBC) [Mass/Vol] 31.9 g/dL 32-36 [facility] Work Phone: Platelets bldon 09-04-2021 Platelets (Bld) [#/Vol] 350 10*3/uL 150-450 [facility] Work Phone: Absolute lymphocyte counton 09-02-2021 Lymphocytes Auto (Unsp spec) [#/Vol] 3.10 10*3/uL 0.83-4.51 [facility] Work Phone: Basophil percentageon 2021 Basophils/100 WBC (Bld) 0.6 % 0-1 [facility] Work Phone: Eosinophils/100 WBC (Bld) 1.2 % 0-5 [facility] Work Phone: Neutrophils (Bld) [#/Vol] 2.9 10*3/uL 2.0-7.7 [facility] Work Phone: Neutrophils/100 WBC (Bld) 44.3 % 47-70 [facility] Work Phone: WBC (Bld) [#/Vol] 6.5 10*3/uL 4.4-11.0 [facility] Work Phone: Blood erythrocytes count (nu mber/volume)on 09-02-2021 RBC (Bld) [#/Vol] 2.29 10*6/uL 4.2-5.4 [facility] Work Phone: [phone] Blood hemoglobin measurement (mass/volume)on 09-02-2021 Hemoglobin (Bld) [Mass/Vol] 6.7 g/dL 12.0-15.0 [facility] Work Phone: Blood lymphocytes/100 leukoc yteson 09-02-2021 Lymphocytes/100 WBC (Bld) 47.7 % 19-41 [facility] Work Phone: Blood monocytes/100 leukocyt eson 09-02-2021 Monocytes/100 WBC (Bld) 5.7 % 0-10 [facility] Work Phone: Blood platelet mean volumeon 09-02-2021 Platelet mean volume (Bld) [Entitic vol] 10.8 fL 6.2-12.0 [facility] Work Phone: Determination of erythrocyte mean corpuscular volume (MCV)on 09-02-2021 MCV (RBC) [Entitic vol] 90.8 fL 81-99 [facility] Work Phone: Hematocrit Auto (Bld) [Volum e fraction]on 09-02-2021 Hematocrit (Bld) [Volume fraction] 20.8 % 37-47 [facility] Work Phone: Laboratory - Hematology and Cell countson 09-02-2021 Erythrocyte distribution width (RBC) [Entitic vol] 40.8 fL 35.1-43.9 [facility] Work Phone: Erythrocyte distribution width (RBC) [Ratio] 12.5 % 11.6-14.6 [facility] Work Phone: Immature granulocytes/100 WBC (Bld) 0.500 % 0.0-0.9 [facility] Work Phone: Comment on above: IG% - Immature Granu locytes (promyelocytes, myelocytes and metamyelocytes) > 1% indicates that a LEFT SHIFT is Present. MCH (RBC) [Entitic mass] 29.3 pg 27.0-32.0 [facility] Work Phone: Nucleated RBC/100 WBC (Bld) [Ratio] 0 % 0-5 [facility] Work Phone: MCHC Auto (RBC) [Mass/Vol]on 09-02-2021 MCHC (RBC) [Mass/Vol] 32.2 g/dL 32-36 [facility] Work Phone: Platelets bldon 09-02-2021 Platelets (Bld) [#/Vol] 220 10*3/uL 150-450 [facility] Work Phone: [phone] Absolute lymphocyte counton 08-31-2021 Lymphocytes Auto (Unsp spec) [#/Vol] 2.01 10*3/uL 0.83-4.51 [facility] Work Phone: Basophil percentageon 2021 Basophils/100 WBC (Bld) 0.4 % 0-1 [facility] Work Phone: Eosinophils/100 WBC (Bld) 1.9 % 0-5 [facility] Work Phone: [phone] Neutrophils (Bld) [#/Vol] 7.8 10*3/uL 2.0-7.7 [facility] Work Phone: Neutrophils/100 WBC (Bld) 73.7 % 47-70 [facility] Work Phone: WBC (Bld) [#/Vol] 10.6 10*3/uL 4.4-11.0 [facility] Work Phone: Blood erythrocytes count (nu mber/volume)on 08-31-2021 RBC (Bld) [#/Vol] 3.93 10*6/uL 4.2-5.4 [facility] Work Phone: Blood hemoglobin measurement (mass/volume)on 08-31-2021 Hemoglobin (Bld) [Mass/Vol] 11.2 g/dL 12.0-15.0 [facility] Work Phone: [phone] Blood lymphocytes/100 leukoc yteson 08-31-2021 Lymphocytes/100 WBC (Bld) 19.0 % 19-41 [facility] Work Phone: Blood monocytes/100 leukocyt eson 08-31-2021 Monocytes/100 WBC (Bld) 4.5 % 0-10 [facility] Work Phone: Blood platelet mean volumeon 08-31-2021 Platelet mean volume (Bld) [Entitic vol] 10.7 fL 6.2-12.0 [facility] Work Phone: Determination of erythrocyte mean corpuscular volume (MCV)on 08-31-2021 MCV (RBC) [Entitic vol] 85.2 fL 81-99 [facility] Work Phone: Hematocrit Auto (Bld) [Volum e fraction]on 08-31-2021 Hematocrit (Bld) [Volume fraction] 33.5 % 37-47 [facility] Work Phone: Laboratory - Hematology and Cell countson 08-31-2021 Erythrocyte distribution width (RBC) [Entitic vol] 36.7 fL 35.1-43.9 [facility] Work Phone: Erythrocyte distribution width (RBC) [Ratio] 11.9 % 11.6-14.6 [facility] Work Phone: Immature granulocytes/100 WBC (Bld) 0.500 % 0.0-0.9 [facility] Work Phone: Comment on above: IG% - Immature Granu locytes (promyelocytes, myelocytes and metamyelocytes) > 1% indicates that a LEFT SHIFT is Present. MCH (RBC) [Entitic mass] 28.5 pg 27.0-32.0 [facility] Work Phone: Nucleated RBC/100 WBC (Bld) [Ratio] 0 % 0-5 [facility] Work Phone: MCHC Auto (RBC) [Mass/Vol]on 08-31-2021 MCHC (RBC) [Mass/Vol] 33.4 g/dL 32-36 [facility] Work Phone: Platelets bldon 08-31-2021 Platelets (Bld) [#/Vol] 344 10*3/uL 150-450 [facility] Work Phone: Serum or plasma choriogonado tropin detectionon 08-31-2021 HCG ( test) Ql 41 mIU/mL <4 [facility] Work Phone: Comment on above: hCG levels with Gest ational AgeGestational Age hCG mIU/mL (IU/L)0.2 - 1 week 5 - 501-2 weeks 50 - 5002-3 weeks 100 - 69815-4 weeks 500 - 401467-3 weeks 1000 - 618429-7 weeks 88214 - 100,0006-8 weeks 73766 - 200,0002-3 months 88034 - 100,000 Absolute lymphocyte counton 08-23-2021 Lymphocytes Auto (Unsp spec) [#/Vol] 3.17 10*3/uL 0.83-4.51 [facility] Work Phone: Basophil percentageon 2021 Basophil percentage 50-100 SEEN /hpf 0-5 [facility] Work Phone: [phone] Basophils/100 WBC (Bld) 0.5 % 0-1 [facility] Work Phone: [phone] Chloride [Moles/Vol] 107 mmol/L 98-107 [facility] Work Phone: [phone] Eosinophils/100 WBC (Bld) 2.4 % 0-5 [facility] Work Phone: [phone] Glucose [Mass/Vol] 93 mg/dL 74-106 [facility] Work Phone: [phone] Neutrophils (Bld) [#/Vol] 5.7 10*3/uL 2.0-7.7 [facility] Work Phone: Neutrophils/100 WBC (Bld) 58.6 % 47-70 [facility] Work Phone: [phone] Potassium [Moles/Vol] 3.4 mmol/L 3.5-5.1 [facility] Work Phone: Sodium [Moles/Vol] 140 mmol/L 136-145 [facility] Work Phone: [phone] WBC (Bld) [#/Vol] 9.7 10*3/uL 4.4-11.0 [facility] Work Phone: [phone] Bilirubin Test strip Ql (U)o n 08-23-2021 Bilirubin Ql (U) Negative Negative [facility] Work Phone: Blood erythrocytes count (nu mber/volume)on 08-23-2021 RBC (Bld) [#/Vol] 3.50 10*6/uL 4.2-5.4 [facility] Work Phone: Blood hemoglobin measurement (mass/volume)on 08-23-2021 Hemoglobin (Bld) [Mass/Vol] 10.4 g/dL 12.0-15.0 [facility] Work Phone: Blood lymphocytes/100 leukoc yteson 08-23-2021 Lymphocytes/100 WBC (Bld) 32.6 % 19-41 [facility] Work Phone: Blood monocytes/100 leukocyt eson 08-23-2021 Monocytes/100 WBC (Bld) 5.7 % 0-10 [facility] Work Phone: Blood platelet mean volumeon 08-23-2021 Platelet mean volume (Bld) [Entitic vol] 10.2 fL 6.2-12.0 [facility] Work Phone: Determination of erythrocyte mean corpuscular volume (MCV)on 08-23-2021 MCV (RBC) [Entitic vol] 87.7 fL 81-99 [facility] Work Phone: Hematocrit Auto (Bld) [Volum e fraction]on 08-23-2021 Hematocrit (Bld) [Volume fraction] 30.7 % 37-47 [facility] Work Phone: Ketones Test strip Ql (U)on 08-23-2021 Ketones Ql (U) Negative Negative [facility] Work Phone: Laboratory - Chemistry and C hemistry - challengeon 08-23-2021 CO2 [Moles/Vol] 26.0 mmol/L 21.0-32.0 [facility] Work Phone: Urea nitrogen/Creatinine [Mass ratio] 14.3 mg/mg 10-20 [facility] Work Phone: Laboratory - Hematology and Cell countson 08-23-2021 Erythrocyte distribution width (RBC) [Entitic vol] 38.8 fL 35.1-43.9 [facility] Work Phone: Erythrocyte distribution width (RBC) [Ratio] 12.2 % 11.6-14.6 [facility] Work Phone: Immature granulocytes/100 WBC (Bld) 0.200 % 0.0-0.9 [facility] Work Phone: Comment on above: IG% - Immature Granu locytes (promyelocytes, myelocytes and metamyelocytes) > 1% indicates that a LEFT SHIFT is Present. MCH (RBC) [Entitic mass] 29.7 pg 27.0-32.0 [facility] Work Phone: Nucleated RBC/100 WBC (Bld) [Ratio] 0 % 0-5 [facility] Work Phone: MCHC Auto (RBC) [Mass/Vol]on 08-23-2021 MCHC (RBC) [Mass/Vol] 33.9 g/dL 32-36 [facility] Work Phone: Mucus LM Ql (Urine sed)on Mucus Ql (Urine sed) 0 SEEN /hpf [facility] Work Phone: Nitrite Test strip Ql (U)on 08-23-2021 Nitrite Ql (U) Negative Negative [facility] Work Phone: No Panel Informationon 08-23 Estimated Creatinine Clearance Calc 164.80 ml/min [facility] Work Phone: Estimated GFR (MDRD) Amer 207 mL/min >60 [facility] Work Phone: Comment on above: GFR Calc Estimated GFR (MDRD) Non-Af Amer 171 mL/min >60 [facility] Work Phone: Comment on above: Non- GFR Calc Platelets bldon 08-23-2021 Platelets (Bld) [#/Vol] 352 10*3/uL 150-450 [facility] Work Phone: Protein Test strip Ql (U)on 08-23-2021 Protein Ql (U) 30 mg/dl Negative [facility] Work Phone: Serum or plasma calcium ana urement (mass/volume)on 08-23-2021 Calcium [Mass/Vol] 8.8 mg/dL 8.5-10.1 [facility] Work Phone: Serum or plasma creatinine m easurement (mass/volume)on 08-23-2021 Creatinine [Mass/Vol] 0.49 mg/dL 0.55-1.02 [facility] Work Phone: Comment on above: The validity of the calculated GFR & GFRAA in patients over 70 years has not been determined. Clinical correlation is essential. Serum or plasma urea nitroge n measurement (mass/volume)on 08-23-2021 Urea nitrogen [Mass/Vol] 7 mg/dL 7-18 [facility] Work Phone: Squamous epithelial cells de tection in urine sediment by light microscopyon 08-23-2021 Epithelial cells.squamous LM Ql (Urine sed) 5-10 SEEN /hpf 5-10 [facility] Work Phone: Thin prep Papanicolaou smear with manual screeningon 08-23-2021 Thin prep Papanicolaou smear with manual screening 7 5-15 [facility] Work Phone: Urine blood detectionon 08-07 RBC Ql (U) 250 /ul Negative [facility] Work Phone: RBC Ql (U) 10-25 SEEN /hpf 0-5 [facility] Work Phone: Urine clarityon 08-23-2021 Clarity (U) Sl. Cloudy Clear [facility] Work Phone: Urine color determinationon 08-23-2021 Color (U) Yellow Yellow [facility] Work Phone: Urine glucose detectionon Glucose Ql (U) Normal mg/dl Normal [facility] Work Phone: Urine leukocyte esterase det ection by dipstickon 08-23-2021 Leukocyte esterase Test strip Ql (U) 500 /ul Negative [facility] Work Phone: Urine pHon 08-23-2021 pH (U) 6.5 [pH] 5.0 - 8.0 [facility] Work Phone: Urine sediment bacteria coun t by microscopy (number/high power field)on 08-23-2021 Bacteria LM.HPF (Urine sed) [#/Area] 2 /[HPF] None Seen [facility] Work Phone: Urine specific gravity measu rementon 08-23-2021 Specific gravity (U) [Rel density] 1.015 1.002-1.030 [facility] Work Phone: Urobilinogen Auto test strip Ql (U)on 08-23-2021 Urobilinogen Ql (U) Normal mg/dl Normal [facility] Work Phone: Absolute lymphocyte counton 08-11-2021 Lymphocytes Auto (Unsp spec) [#/Vol] 2.81 10*3/uL 0.83-4.51 [facility] Work Phone: Basophil percentageon 2021 Basophils/100 WBC (Bld) 0.3 % 0-1 [facility] Work Phone: Eosinophils/100 WBC (Bld) 1.2 % 0-5 [facility] Work Phone: [phone] Neutrophils (Bld) [#/Vol] 7.8 10*3/uL 2.0-7.7 [facility] Work Phone: Neutrophils/100 WBC (Bld) 67.6 % 47-70 [facility] Work Phone: WBC (Bld) [#/Vol] 11.6 10*3/uL 4.4-11.0 [facility] Work Phone: Blood erythrocytes count (nu mber/volume)on 08-11-2021 RBC (Bld) [#/Vol] 4.18 10*6/uL 4.2-5.4 [facility] Work Phone: Blood hemoglobin measurement (mass/volume)on 08-11-2021 Hemoglobin (Bld) [Mass/Vol] 13.1 g/dL 12.0-15.0 [facility] Work Phone: Blood lymphocytes/100 leukoc yteson 08-11-2021 Lymphocytes/100 WBC (Bld) 24.3 % 19-41 [facility] Work Phone: Blood monocytes/100 leukocyt eson 08-11-2021 Monocytes/100 WBC (Bld) 6.1 % 0-10 [facility] Work Phone: Blood platelet mean volumeon 08-11-2021 Platelet mean volume (Bld) [Entitic vol] 12.7 fL 6.2-12.0 [facility] Work Phone: Determination of erythrocyte mean corpuscular volume (MCV)on 08-11-2021 MCV (RBC) [Entitic vol] 85.6 fL 81-99 [facility] Work Phone: Hematocrit Auto (Bld) [Volum e fraction]on 08-11-2021 Hematocrit (Bld) [Volume fraction] 35.8 % 37-47 [facility] Work Phone: Laboratory - Drug toxicology on 08-11-2021 Benzodiazepines Ql (U) Negative < 200 ng/mL [facility] Work Phone: Cannabinoids Screen Ql (U) Positive < 50 ng/mL [facility] Work Phone: Cocaine Ql (U) Negative < 300 ng/mL [facility] Work Phone: Opiates Ql (U) Negative < 300 ng/mL [facility] Work Phone: Laboratory - Hematology and Cell countson 08-11-2021 Erythrocyte distribution width (RBC) [Entitic vol] 38.8 fL 35.1-43.9 [facility] Work Phone: Erythrocyte distribution width (RBC) [Ratio] 12.5 % 11.6-14.6 [facility] Work Phone: Immature granulocytes/100 WBC (Bld) 0.500 % 0.0-0.9 [facility] Work Phone: Comment on above: IG% - Immature Granu locytes (promyelocytes, myelocytes and metamyelocytes) > 1% indicates that a LEFT SHIFT is Present. MCH (RBC) [Entitic mass] 31.3 pg 27.0-32.0 [facility] Work Phone: Nucleated RBC/100 WBC (Bld) [Ratio] 0 % 0-5 [facility] Work Phone: MCHC Auto (RBC) [Mass/Vol]on 08-11-2021 MCHC (RBC) [Mass/Vol] 36.6 g/dL 32-36 [facility] Work Phone: No Panel Informationon 08-11 MDMA (Ecstasy) Screen Negative < 500 ng/mL [facility] Work Phone: Urine Barbiturates Screen Negative < 200 ng/mL [facility] Work Phone: Urine Drug Screen Comment [facility] Work Phone: Comment on above: CONFIRMATORY TESTING FOR ALL POSITIVE URINE DRUG SCREENRESULTS WILL ONLY BE SENT OUT UPON PHYSICIAN ORDER. VISTA Urine Drug Screen methods provide only preliminaryanalytical test results. A more specific alternate chemicalmethod must be used in order to obtain a confirmedanalytical result. Gas chromatography/mass spectrometery(GC/MS) is the preferred confirmatory method. Clinicalconsideration and professional judgement should be appliedto any drug of abuse test result, particularly whenpreliminary positive results are used. URINE TCA TESTING MUST BE ORDERED SEPARATELY. USE TESTMNEMONIC: [facility] Urine Methadone Screen Negative < 300 ng/mL [facility] Work Phone: Platelets bldon 08-11-2021 Platelets (Bld) [#/Vol] 273 10*3/uL 150-450 [facility] Work Phone: Urine amphetamine measuremen t (moles/volume)on 08-11-2021 Amphetamine (U) [Moles/Vol] Negative <1000 ng/mL [facility] Work Phone: Urine phencyclidine (PCP) de tectionon 08-11-2021 Phencyclidine Ql (U) Negative < 25 ng/mL [facility] Work Phone: Progress Noteon 06-10-2021 [employer] Authentication Interface Message Text Maternal Medicine Consult Date of Service: 06/10/2021 Referring Provider: Mike Rodriguez Primary Care Provider: Wendy Primary Care, MD [place] Reason for Consult: Dr. Mike Rodriguez requests [...] No Muscular Dystrophy No Cystic Fibrosis No Fior's Chorea No Intellectual Disability/Autism No Metabolic Disorder [...] Negative. Skin: Negative. Neurological: Negative. Endo/Heme/Allergies: Negative. Psychiatric/Behavioral : Negative. PHYSICAL EXAM: BP 99/67 Ht 165.1 [...] anatomy a (more content not included)... Normal [facility] Bilirubin Test strip Ql (U)o n 04-19-2021 Bilirubin Ql (U) 1 mg/dL Negative [facility] Work Phone: Comment on above: COLOR OF URINE MAY A FFECT DIPSTICK RESULTS. Culture, urineon 04-19-2021 Bacteria identified Cx Nom (U) Lactobacillus sp. [facility] Work Phone: Ketones Test strip Ql (U)on 04-19-2021 Ketones Ql (U) 50 mg/dl Negative [facility] Work Phone: Nitrite Test strip Ql (U)on 04-19-2021 Nitrite Ql (U) Negative Negative [facility] Work Phone: Protein Test strip Ql (U)on 04-19-2021 Protein Ql (U) 15 mg/dl Negative [facility] Work Phone: Urine blood detectionon 04-07 RBC Ql (U) Negative Negative [facility] Work Phone: Urine clarityon 04-19-2021 Clarity (U) Sl. Cloudy Clear [facility] Work Phone: Urine color determinationon 04-19-2021 Color (U) Yellow Yellow [facility] Work Phone: Urine glucose detectionon Glucose Ql (U) Normal mg/dl Normal [facility] Work Phone: Urine leukocyte esterase det ection by dipstickon 04-19-2021 Leukocyte esterase Test strip Ql (U) 25 /ul Negative [facility] Work Phone: Urine pHon 04-19-2021 pH (U) 6.5 [pH] 5.0 - 8.0 [facility] Work Phone: Urine specific gravity measu rementon 04-19-2021 Specific gravity (U) [Rel density] 1.015 1.002-1.030 [facility] Work Phone: Urobilinogen Auto test strip Ql (U)on 04-19-2021 Urobilinogen Ql (U) 4 mg/dl Normal [facility] Work Phone: [facility] Lab Reporton 12-26-2017 [facility] Lab Report SURGICAL PATHOLOGY REPORT Patient Name: CHANA DE LA O Med. Rec. # : [id number] : 2000 Specimen # : [id number] Date Taken: 12/26/2017 Date Reported: 12/27/2017 Specimen(s) Received Tonsils Diagnosis TONSILS (TONSILLECTOMY AND ADENOIDECTOMY): - FOLLICULAR LYMPHOID HYPERPLASIA, REACTIVE Electronically Signed Out By Cordell Marrero MD ee/12/27/2017 Cordell Marrero MD Clinical History This is a 17-year-old female with tonsillar and adenoid hypertrophy; sleep-disordered breathing; chronic tonsillitis. Preoperative diagnosis same. Postoperative diagnosis same. Operation Tonsillectomy and adenoidectomy age 12 or over. Gross Description Received in formalin designated tonsils, are two tonsils measuring 2.8 and 3.2 cm in greatest dimension. Rn Diabetes sections are submitted in one cassette. Rodolfo Balbuena; MINGO/PathAssist eea/12/26/2017 Microscopic Description Sections show follicular lymphoid hyperplasia with actinomyces. Testing performed at [facility], [address], [place] [address], , . Normal [facility] Comment on above: Performed By: #### S URG ####Performed at [facility], [address], [place] [address] POCT HCG, Urine Qualitativeo n 12-26-2017 Comment: First morning urine is the specimen of choice for urine test. False negative results can occur when random urine specimens are tested. A serum test is recommended if results do not correlate with the patient's clinical condition. Normal [facility] HCG.beta subunit ( test) Ql (U) Negative Normal NEG [facility] Culture, urine Bacteria identified Cx Nom (U) Lactobacillus sp. [facility] Work Phone: Bacteria identified Cx Nom (U) Positive [facility] Work Phone: No Panel Information Enteric Bacteriology [facility] Work Phone: Ova and parasites Ova and parasites identified LM Nom (Unsp spec) [facility] Work Phone: Vital Signs Date Time Vital Sign Value Performing Clinician Facility 08-24-2024 14:40-0400 Body temperature 98 [degF] No Primary Care Physician [facility] 08-24-2024 14:40-0400 Diastolic blood pressure 88 mm[Hg] No Primary Care Physician [facility] 08-24-2024 14:40-0400 Heart rate 72 /min No Primary Care Physician [facility] 08-24-2024 14:40-0400 Respiratory rate 16 /min No Primary Care Physician [facility] 08-24-2024 14:40-0400 SaO2% (BldA) [Mass fraction] 99 % No Primary Care Physician [facility] 08-24-2024 14:40-0400 Systolic blood pressure 129 mm[Hg] No Primary Care Physician [facility] 08-24-2024 11:23-0400 Body mass index (BMI) [Ratio] 27.8 kg/m2 No Primary Care Physician [facility] 08-24-2024 11:23-0400 Body weight 76 kg No Primary Care Physician [facility] 08-24-2024 10:51-0400 Body height 165.1 cm No Primary Care Physician [facility] 08-23-2024 21:19-0400 Body temperature 97.8 [degF] No Primary Care Physician [facility] 08-23-2024 21:19-0400 Diastolic blood pressure 75 mm[Hg] No Primary Care Physician [facility] 08-23-2024 21:19-0400 Heart rate 78 /min No Primary Care Physician [facility] 08-23-2024 21:19-0400 Respiratory rate 17 /min No Primary Care Physician [facility] 08-23-2024 21:19-0400 SaO2% (BldA) [Mass fraction] 100 % No Primary Care Physician [facility] 08-23-2024 21:19-0400 Systolic blood pressure 118 mm[Hg] No Primary Care Physician [facility] 08-23-2024 17:20-0400 Body height 165.1 cm No Primary Care Physician [facility] 08-23-2024 17:20-0400 Body mass index (BMI) [Ratio] 28.5 kg/m2 No Primary Care Physician [facility] 08-23-2024 17:20-0400 Body weight 77.88 kg No Primary Care Physician [facility] 06-19-2024 16:43-0400 Body height 165.1 cm No Primary Care Physician [facility] 06-17-2024 13:39-0400 Body temperature 98 [degF] No Primary Care Physician [facility] 06-17-2024 13:39-0400 Diastolic blood pressure 60 mm[Hg] No Primary Care Physician [facility] 06-17-2024 13:39-0400 Heart rate 68 /min No Primary Care Physician [facility] 06-17-2024 13:39-0400 Respiratory rate 18 /min No Primary Care Physician [facility] 06-17-2024 13:39-0400 SaO2% (BldA) [Mass fraction] 98 % No Primary Care Physician [facility] 06-17-2024 13:39-0400 Systolic blood pressure 132 mm[Hg] No Primary Care Physician [facility] 06-17-2024 11:20-0400 Body height 165.1 cm No Primary Care Physician [facility] 06-17-2024 11:20-0400 Body mass index (BMI) [Ratio] 28 kg/m2 No Primary Care Physician [facility] 06-17-2024 11:20-0400 Body weight 76.47 kg No Primary Care Physician [facility] 05-04-2024 07:24-0400 Body mass index (BMI) [Ratio] 27.62 kg/m2 Svetlana Hajuanito RN GYN.SENIOR OCCUPATIONAL THERAPIST Work Phone: [facility] 05-04-2024 07:24-0400 Body weight 75.3 kg Svetlana Hajuanito RN GYN.SENIOR OCCUPATIONAL THERAPIST Work Phone: [facility] 05-04-2024 07:24-0400 Diastolic blood pressure 72 mm[Hg] Svetlana Haury RN GYN.SENIOR OCCUPATIONAL THERAPIST Work Phone: [facility] 05-04-2024 07:24-0400 Systolic blood pressure 112 mm[Hg] Svetlana Haury RN GYN.SENIOR OCCUPATIONAL THERAPIST Work Phone: [facility] 12-29-2023 11:44-0500 Body mass index (BMI) [Ratio] 30.79 kg/m2 Chani Hernandez MD Work Phone: [facility] 12-29-2023 11:44-0500 Body weight 83.92 kg Chani Hernandez MD Work Phone: [facility] 12-29-2023 11:44-0500 Diastolic blood pressure 70 mm[Hg] Chani Hernandez MD Work Phone: [facility] 12-29-2023 11:44-0500 Systolic blood pressure 120 mm[Hg] Chani Hernandez MD Work Phone: [facility] 12-13-2023 15:57-0500 Body mass index (BMI) [Ratio] 32.06 kg/m2 Patricia Whitehead RN GYN.SENIOR OCCUPATIONAL THERAPIST Work Phone: [facility] 12-13-2023 15:57-0500 Body temperature 99.1 [degF] Patricia Whitehead RN GYN.SENIOR OCCUPATIONAL THERAPIST Work Phone: [facility] 12-13-2023 15:57-0500 Body weight 87.4 kg Patricia Whitehead RN GYN.SENIOR OCCUPATIONAL THERAPIST Work Phone: [facility] 12-13-2023 15:57-0500 Diastolic blood pressure 90 mm[Hg] Patricia Whiteehad RN GYN.SENIOR OCCUPATIONAL THERAPIST Work Phone: [facility] 12-13-2023 15:57-0500 Heart rate 102 /min Patricia Whitehead RN GYN.SENIOR OCCUPATIONAL THERAPIST Work Phone: [facility] 12-13-2023 15:57-0500 Respiratory rate 16 /min Patricia Whitehead RN GYN.SENIOR OCCUPATIONAL THERAPIST Work Phone: [facility] 12-13-2023 15:57-0500 SaO2% (BldA) [Mass fraction] 99 % Patricia Whitehead RN GYN.SENIOR OCCUPATIONAL THERAPIST Work Phone: [facility] 12-13-2023 15:57-0500 Systolic blood pressure 142 mm[Hg] Patricia Whitehead RN GYN.SENIOR OCCUPATIONAL THERAPIST Work Phone: [facility] 12-13-2023 14:24-0500 Body mass index (BMI) [Ratio] 32.12 kg/m2 Donna Granados MD Work Phone: [facility] 12-13-2023 14:24-0500 Body weight 87.54 kg Donna Granados MD Work Phone: [facility] 12-13-2023 14:24-0500 Diastolic blood pressure 70 mm[Hg] Donna Granados MD Work Phone: [facility] 12-13-2023 14:24-0500 Systolic blood pressure 122 mm[Hg] Donna Granados MD Work Phone: [facility] 12-08-2023 14:07-0400 Body mass index (BMI) [Ratio] 32.95 kg/m2 Svetlana Schaeffer RN GYN.SENIOR OCCUPATIONAL THERAPIST Work Phone: [facility] 12-08-2023 14:07-0400 Body weight 89.81 kg Svetlana Schaeffer RN GYN.SENIOR OCCUPATIONAL THERAPIST Work Phone: [facility] 12-08-2023 14:07-0400 Diastolic blood pressure 60 mm[Hg] Svetlana Hajuanito RN GYN.SENIOR OCCUPATIONAL THERAPIST Work Phone: [facility] 10-31-2024 14:07-0400 Systolic blood pressure 120 mm[Hg] Svetlana Schaeffer SENIOR OCCUPATIONAL THERAPIST Work Phone: [facility] 12-06-2023 06:40-0400 Diastolic Blood Pressure Non-Invasive 77 mm[Hg] PEACE DURESKA DO [facility] 12-06-2023 06:40-0400 Heart rate 88 /min PEACE DURESKA DO [facility] 12-06-2023 06:40-0400 Systolic Blood Pressure Non-Invasive 112 mm[Hg] PEACE DURESKA DO [facility] 12-06-2023 05:22-0400 Body height 165.1 cm PEACE DURESKA DO [facility] 12-06-2023 05:22-0400 Body temperature 98.24 [degF] PEACE LOVEESKA DO [facility] 12-06-2023 05:22-0400 Body weight 88.6 kg PEACE DURESKA DO [facility] 12-06-2023 05:22-0400 Diastolic Blood Pressure Non-Invasive 79 mm[Hg] PEACE DURESKA DO [facility] 12-06-2023 05:22-0400 Heart rate 107 /min PEACE KATEESKA DO [facility] 12-06-2023 05:22-0400 Reason For Taking VItal Signs PEACE LOVEESKA DO [facility] 12-06-2023 05:22-0400 Respiratory rate 18 /min PEACE DURESKA DO [facility] 12-06-2023 05:22-0400 Systolic Blood Pressure Non-Invasive 116 mm[Hg] PEACE DURESKA DO [facility] 11-18-2023 15:16-0400 Body mass index (BMI) [Ratio] 33.09 kg/m2 Tosin Brigotti RN GYN.SENIOR OCCUPATIONAL THERAPIST Work Phone: [facility] 11-18-2023 15:16-0400 Body temperature 97.9 [degF] Tosin Brigotti RN GYN.SENIOR OCCUPATIONAL THERAPIST Work Phone: [facility] 11-18-2023 15:16-0400 Body weight 90.2 kg Tosin Brigotti RN GYN.SENIOR OCCUPATIONAL THERAPIST Work Phone: [facility] 11-18-2023 15:16-0400 Diastolic blood pressure 85 mm[Hg] Tosin Brigotti RN GYN.SENIOR OCCUPATIONAL THERAPIST Work Phone: [facility] 11-18-2023 15:16-0400 Heart rate 76 /min Tosin Brigotti RN GYN.SENIOR OCCUPATIONAL THERAPIST Work Phone: [facility] 11-18-2023 15:16-0400 Respiratory rate 20 /min Tosin Brigotti RN GYN.SENIOR OCCUPATIONAL THERAPIST Work Phone: [facility] 11-18-2023 15:16-0400 SaO2% (BldA) [Mass fraction] 99 % Tosin Brigotti RN GYN.SENIOR OCCUPATIONAL THERAPIST Work Phone: [facility] 11-18-2023 15:16-0400 Systolic blood pressure 124 mm[Hg] Tosin Brigotti RN GYN.SENIOR OCCUPATIONAL THERAPIST Work Phone: [facility] 08-24-2023 10:49-0400 Body mass index (BMI) [Ratio] 32.45 kg/m2 Ansley Ibrahim RN GYN.CNM Work Phone: [facility] 08-24-2023 10:49-0400 Body weight 88.45 kg Ansley Ibrahim RN GYN.CNM Work Phone: [facility] 08-24-2023 10:49-0400 Diastolic blood pressure 72 mm[Hg] Ansley Ibrahim RN GYN.CNM Work Phone: [facility] 08-24-2023 10:49-0400 Systolic blood pressure 116 mm[Hg] Ansley Ibrahim RN GYN.CNM Work Phone: [facility] 08-19-2023 08:46-0400 Body weight 97.52 kg [facility] [employer] 08-19-2023 08:46-0400 Diastolic blood pressure 95 mm[Hg] [facility] 08:46-0400 Systolic blood pressure 129 mm[Hg] [facility] [employer] 08-19-2023 08:34-0400 Body temperature 98.01 [degF] [facility] [employer] 08-19-2023 08:34-0400 Heart rate 72 /min [facility] [employer] 08-19-2023 08:34-0400 Respiratory rate 20 /min [facility] [employer] 08-19-2023 08:34-0400 SaO2% (BldA) [Mass fraction] 96 % [facility] [employer] 07-21-2023 14:54-0400 Body mass index (BMI) [Ratio] 34.85 kg/m2 Wilfrid Laura RN GYN.SENIOR OCCUPATIONAL THERAPIST Work Phone: [facility] 07-21-2023 14:54-0400 Body temperature 98.2 [degF] Wilfrid Laura RN GYN.SENIOR OCCUPATIONAL THERAPIST Work Phone: [facility] 07-21-2023 14:54-0400 Body weight 95 kg Wilfrid Laura RN GYN.SENIOR OCCUPATIONAL THERAPIST Work Phone: [facility] 07-21-2023 14:54-0400 Diastolic blood pressure 78 mm[Hg] Wilfrid Laura RN GYN.SENIOR OCCUPATIONAL THERAPIST Work Phone: [facility] 07-21-2023 14:54-0400 Heart rate 71 /min Wilfrid Laura RN GYN.SENIOR OCCUPATIONAL THERAPIST Work Phone: [facility] 07-21-2023 14:54-0400 Respiratory rate 16 /min Wilfrid Laura RN GYN.SENIOR OCCUPATIONAL THERAPIST Work Phone: [facility] 07-21-2023 14:54-0400 SaO2% (BldA) [Mass fraction] 98 % Wilfrid Laura APRN.SENIOR OCCUPATIONAL THERAPIST Work Phone: [facility] 07-21-2023 14:54-0400 Systolic blood pressure 122 mm[Hg] Wilfrid Laura APRN.SENIOR OCCUPATIONAL THERAPIST Work Phone: [facility] 06-15-2023 10:26-0400 Body mass index (BMI) [Ratio] 36.06 kg/m2 Krislyn Aberegg PA Work Phone: [facility] 06-15-2023 10:26-0400 Body temperature 97.59 [degF] Krislyn Aberegg PA Work Phone: [facility] 06-15-2023 10:26-0400 Body weight 98.3 kg Krislyn Aberegg PA Work Phone: [facility] 06-15-2023 10:26-0400 Diastolic blood pressure 64 mm[Hg] Krislyn Aberegg PA Work Phone: [facility] 06-15-2023 10:26-0400 Heart rate 80 /min Krislyn Aberegg PA Work Phone: [facility] 06-15-2023 10:26-0400 Respiratory rate 21 /min Krislyn Aberegg PA Work Phone: [facility] 06-15-2023 10:26-0400 SaO2% (BldA) [Mass fraction] 98 % Krislyn Aberegg PA Work Phone: [facility] 06-15-2023 10:26-0400 Systolic blood pressure 102 mm[Hg] Krislyn Aberegg PA Work Phone: [facility] 06-13-2023 09:14-0400 Body temperature 96.9 [degF] No Primary Care Physician [facility] 06-13-2023 09:14-0400 Diastolic blood pressure 67 mm[Hg] No Primary Care Physician [facility] 06-13-2023 09:14-0400 Heart rate 71 /min No Primary Care Physician [facility] 06-13-2023 09:14-0400 Respiratory rate 15 /min No Primary Care Physician [facility] 06-13-2023 09:14-0400 SaO2% (BldA) [Mass fraction] 99 % No Primary Care Physician [facility] 06-13-2023 09:14-0400 Systolic blood pressure 113 mm[Hg] No Primary Care Physician [facility] 06-13-2023 05:24-0400 Body height 165.1 cm No Primary Care Physician [facility] 06-13-2023 05:24-0400 Body mass index (BMI) [Ratio] 35.4 kg/m2 No Primary Care Physician [facility] 06-13-2023 05:24-0400 Body weight 96.6 kg No Primary Care Physician [facility] 06-02-2023 15:15-0400 Body mass index (BMI) [Ratio] 36.32 kg/m2 Krislyn Aberegg PA Work Phone: [facility] 06-02-2023 15:15-0400 Body temperature 98.49 [degF] Krislyn Aberegg PA Work Phone: [facility] 06-02-2023 15:15-0400 Body weight 99 kg Krislyn Aberegg PA Work Phone: [facility] 06-02-2023 15:15-0400 Diastolic blood pressure 70 mm[Hg] Krislyn Aberegg PA Work Phone: [facility] 06-02-2023 15:15-0400 Heart rate 82 /min Krislyn Aberegg PA Work Phone: [facility] 06-02-2023 15:15-0400 Respiratory rate 18 /min Krislyn Aberegg PA Work Phone: [facility] 06-02-2023 15:15-0400 SaO2% (BldA) [Mass fraction] 98 % Krislyn Aberegg PA Work Phone: [facility] 06-02-2023 15:15-0400 Systolic blood pressure 104 mm[Hg] Tristonjeanstaci HAINES Work Phone: [facility] 05-15-2023 06:05-0400 Body temperature 98 [degF] [facility] 05-15-2023 06:05-0400 Diastolic blood pressure 72 mm[Hg] [facility] 05-15-2023 06:05-0400 Heart rate 87 /min [facility] 05-15-2023 06:05-0400 Respiratory rate 18 /min [facility] 05-15-2023 06:05-0400 SaO2% (BldA) [Mass fraction] 96 % [facility] 05-15-2023 06:05-0400 Systolic blood pressure 112 mm[Hg] [facility] 05-15-2023 05:37-0400 Body height 165.1 cm [facility] 05-15-2023 05:37-0400 Body mass index (BMI) [Ratio] 36.6 kg/m2 [facility] 05-15-2023 05:37-0400 Body weight 100 kg [facility] 05-10-2023 16:50-0400 Body temperature 97.9 [degF] Sony Athy PA-C Work Phone: [facility] 05-10-2023 16:50-0400 Body weight 97 kg Sony Athy PA-C Work Phone: [facility] 05-10-2023 16:50-0400 Diastolic blood pressure 72 mm[Hg] Sony Athy PA-C Work Phone: [facility] 05-10-2023 16:50-0400 Heart rate 86 /min Sony Athy PA-C Work Phone: [facility] 05-10-2023 16:50-0400 Respiratory rate 18 /min Sony Athy PA-C Work Phone: [facility] 05-10-2023 16:50-0400 SaO2% (BldA) [Mass fraction] 98 % Sony Athy PA-C Work Phone: [facility] 05-10-2023 16:50-0400 Systolic blood pressure 102 mm[Hg] Sony Barrios PA-C Work Phone: [facility] 05-02-2023 00:12-0400 Body temperature 97.1 [degF] [facility] 05-02-2023 00:12-0400 Diastolic blood pressure 67 mm[Hg] [facility] 05-02-2023 00:12-0400 Heart rate 100 /min [facility] 05-02-2023 00:12-0400 Respiratory rate 19 /min [facility] 05-02-2023 00:12-0400 SaO2% (BldA) [Mass fraction] 96 % [facility] 05-02-2023 00:12-0400 Systolic blood pressure 107 mm[Hg] [facility] 05-01-2023 22:53-0400 Body height 165.1 cm [facility] 05-01-2023 22:53-0400 Body mass index (BMI) [Ratio] 36.1 kg/m2 [facility] 05-01-2023 22:53-0400 Body weight 98.47 kg [facility] 04-10-2023 20:43-0500 Body temperature 98 [degF] [facility] 04-10-2023 20:43-0500 Diastolic blood pressure 75 mm[Hg] [facility] 04-10-2023 20:43-0500 Heart rate 98 /min [facility] 04-10-2023 20:43-0500 Respiratory rate 18 /min [facility] 04-10-2023 20:43-0500 SaO2% (BldA) [Mass fraction] 98 % [facility] 04-10-2023 20:43-0500 Systolic blood pressure 125 mm[Hg] [facility] 04-10-2023 19:34-0500 Body height 165.1 cm [facility] 04-10-2023 19:34-0500 Body mass index (BMI) [Ratio] 33.3 kg/m2 [facility] 04-10-2023 19:34-0500 Body weight 90.71 kg [facility] 03-04-2023 13:07-0500 Body temperature 98.8 [degF] No Primary Care Physician [facility] 03-04-2023 13:07-0500 Diastolic blood pressure 80 mm[Hg] No Primary Care Physician [facility] 03-04-2023 13:07-0500 Heart rate 66 /min No Primary Care Physician [facility] 03-04-2023 13:07-0500 Respiratory rate 16 /min No Primary Care Physician [facility] 03-04-2023 13:07-0500 SaO2% (BldA) [Mass fraction] 95 % No Primary Care Physician [facility] 03-04-2023 13:07-0500 Systolic blood pressure 128 mm[Hg] No Primary Care Physician [facility] 03-04-2023 10:55-0500 Body height 165.1 cm No Primary Care Physician [facility] 03-04-2023 10:55-0500 Body mass index (BMI) [Ratio] 32.5 kg/m2 No Primary Care Physician [facility] 03-04-2023 10:55-0500 Body weight 88.9 kg No Primary Care Physician [facility] 02-26-2023 18:02-0500 Diastolic blood pressure 74 mm[Hg] No Primary Care Physician [facility] 02-26-2023 18:02-0500 Heart rate 88 /min No Primary Care Physician [facility] 02-26-2023 18:02-0500 Respiratory rate 16 /min No Primary Care Physician [facility] 02-26-2023 18:02-0500 SaO2% (BldA) [Mass fraction] 100 % No Primary Care Physician [facility] 02-26-2023 18:02-0500 Systolic blood pressure 130 mm[Hg] No Primary Care Physician [facility] 02-26-2023 15:50-0500 Body mass index (BMI) [Ratio] 32.1 kg/m2 No Primary Care Physician [facility] 02-26-2023 15:50-0500 Body temperature 96.2 [degF] No Primary Care Physician [facility] 02-26-2023 15:50-0500 Body weight 87.77 kg No Primary Care Physician [facility] 01-19-2023 12:26-0500 Body temperature 97.6 [degF] No Primary Care Physician [facility] 01-19-2023 12:26-0500 Diastolic blood pressure 51 mm[Hg] No Primary Care Physician [facility] 01-19-2023 12:26-0500 Heart rate 64 /min No Primary Care Physician [facility] 01-19-2023 12:26-0500 Respiratory rate 16 /min No Primary Care Physician [facility] 01-19-2023 12:26-0500 Systolic blood pressure 100 mm[Hg] No Primary Care Physician [facility] 01-18-2023 19:17-0500 SaO2% (BldA) [Mass fraction] 99 % No Primary Care Physician [facility] 01-18-2023 07:30-0500 Body mass index (BMI) [Ratio] 32.1 kg/m2 No Primary Care Physician [facility] 01-18-2023 07:30-0500 Body weight 87.45 kg No Primary Care Physician [facility] 01-13-2023 11:01-0500 Body weight 89 kg Pablo Mckeon MD Work Phone: [facility] 01-13-2023 11:01-0500 Diastolic blood pressure 69 mm[Hg] Pablo Mckeon MD Work Phone: [facility] 01-13-2023 11:01-0500 Systolic blood pressure 110 mm[Hg] Pablo Mckeon MD Work Phone: [facility] 01-10-2023 12:57-0500 Diastolic blood pressure 76 mm[Hg] Ob Ultrasound Work Phone: [facility] 01-10-2023 12:57-0500 Systolic blood pressure 124 mm[Hg] Ob Ultrasound Work Phone: [facility] 01-05-2023 14:44-0500 Body weight 88 kg Danni Reynolds APRN.CNM Work Phone: [facility] 01-05-2023 14:44-0500 Diastolic blood pressure 62 mm[Hg] Danni Reynolds RN GYN.CNM Work Phone: [facility] 01-05-2023 14:44-0500 Systolic blood pressure 108 mm[Hg] Danni Reynolds RN GYN.CNM Work Phone: [facility] 12-31-2022 15:02-0500 Body weight 86.18 kg Angeline Chu MD Work Phone: [facility] 12-31-2022 15:02-0500 Diastolic blood pressure 66 mm[Hg] Angeline Chu MD Work Phone: [facility] 12-31-2022 15:02-0500 Systolic blood pressure 110 mm[Hg] Angeline Chu MD Work Phone: [facility] 12-28-2022 08:11-0500 Body weight 89 kg Rudolph Roy MD Work Phone: [facility] 12-28-2022 08:11-0500 Diastolic blood pressure 70 mm[Hg] Rudolph Roy MD Work Phone: [facility] 12-28-2022 08:11-0500 Systolic blood pressure 110 mm[Hg] Rudolph Roy MD Work Phone: [facility] 12-23-2022 17:38-0500 Diastolic blood pressure 58 mm[Hg] No Primary Care Physician [facility] 12-23-2022 17:38-0500 Heart rate 84 /min No Primary Care Physician [facility] 12-23-2022 17:38-0500 Systolic blood pressure 122 mm[Hg] No Primary Care Physician [facility] 12-23-2022 17:37-0500 SaO2% (BldA) [Mass fraction] 97 % No Primary Care Physician [facility] 12-23-2022 16:58-0500 Body temperature 97.7 [degF] No Primary Care Physician [facility] 12-23-2022 13:19-0500 Body height 165.1 cm No Primary Care Physician [facility] 12-23-2022 13:19-0500 Body mass index (BMI) [Ratio] 32.3 kg/m2 No Primary Care Physician [facility] 12-23-2022 13:19-0500 Body weight 87.99 kg No Primary Care Physician [facility] 12-20-2022 16:54-0500 Heart rate 100 /min No Primary Care Physician [facility] 12-20-2022 16:54-0500 SaO2% (BldA) [Mass fraction] 96 % No Primary Care Physician [facility] 12-20-2022 16:48-0500 Body mass index (BMI) [Ratio] 32.3 kg/m2 No Primary Care Physician [facility] 12-20-2022 16:48-0500 Body weight 87.99 kg No Primary Care Physician [facility] 12-20-2022 16:44-0500 Body temperature 98.2 [degF] No Primary Care Physician [facility] 12-20-2022 16:44-0500 Diastolic blood pressure 75 mm[Hg] No Primary Care Physician [facility] 12-20-2022 16:44-0500 Systolic blood pressure 121 mm[Hg] No Primary Care Physician [facility] 12-20-2022 15:24-0500 Body weight 88.09 kg Svetlana Schaeffer APRN.SENIOR OCCUPATIONAL THERAPIST Work Phone: [facility] 12-20-2022 15:24-0500 Diastolic blood pressure 58 mm[Hg] Svetlana Schaeffer RN GYN.SENIOR OCCUPATIONAL THERAPIST Work Phone: [facility] 12-20-2022 15:24-0500 Systolic blood pressure 100 mm[Hg] Svetlana Schaeffer APRN.SENIOR OCCUPATIONAL THERAPIST Work Phone: [facility] 12-06-2022 16:39-0400 Body weight 86.82 kg Ansley Ibrahim APRN.CNM Work Phone: [facility] 12-06-2022 16:39-0400 Diastolic blood pressure 66 mm[Hg] Ansley Ibrahim APRN.CNM Work Phone: [facility] 12-06-2022 16:39-0400 Systolic blood pressure 110 mm[Hg] Ansley Ibrahim APRN.CNM Work Phone: [facility] 11-22-2022 12:56-0400 Body height 165.1 cm Danni Reynolds APRN.CNM Work Phone: [facility] 11-22-2022 12:56-0400 Body weight 85.73 kg Danni Reynolds RN GYN.CNM Work Phone: [facility] 11-22-2022 12:56-0400 Diastolic blood pressure 60 mm[Hg] Danni Reynolds RN GYN.CNM Work Phone: [facility] 11-22-2022 12:56-0400 Systolic blood pressure 104 mm[Hg] Danni Reynolds RN GYN.CNM Work Phone: [facility] 11-06-2022 11:31-0400 Diastolic blood pressure 77 mm[Hg] Dr. Earl Thornton Work Phone: [facility] 11-06-2022 11:31-0400 Heart rate 62 /min Dr. Earl Thornton Work Phone: [facility] 11-06-2022 11:31-0400 Respiratory rate 15 /min Dr. Earl Thornton Work Phone: [facility] 11-06-2022 11:31-0400 SaO2% (BldA) [Mass fraction] 98 % Dr. Earl Thornton Work Phone: [facility] 11-06-2022 11:31-0400 Systolic blood pressure 120 mm[Hg] Dr. Earl Thornton Work Phone: [facility] 11-06-2022 09:50-0400 Body height 165.[address] Earl Thornton Work Phone: [facility] 11-06-2022 09:50-0400 Body mass index (BMI) [Ratio] 31.1 kg/m2 Dr. Earl Thornton Work Phone: [facility] 11-06-2022 09:50-0400 Body temperature 97.9 [degF] Dr. Earl Thornton Work Phone: [facility] 11-06-2022 09:50-0400 Body weight 84.[address] Earl Thornton Work Phone: [facility] 10-19-2022 08:07-0400 Body height 165.[address] Earl Thornton Work Phone: [facility] 10-19-2022 08:07-0400 Body mass index (BMI) [Ratio] 31.6 kg/m2 Dr. Earl Thornton Work Phone: [facility] 10-19-2022 08:07-0400 Body temperature 97.6 [degF] Dr. Earl Thornton Work Phone: [facility] 10-19-2022 08:07-0400 Body weight 86.[address] Earl Thornton Work Phone: [facility] 10-19-2022 08:07-0400 Diastolic blood pressure 78 mm[Hg] Dr. Earl Thornton Work Phone: [facility] 10-19-2022 08:07-0400 Heart rate 89 /min Dr. Earl Thornton Work Phone: [facility] 10-19-2022 08:07-0400 Respiratory rate 14 /min Dr. Earl Thornton Work Phone: [facility] 10-19-2022 08:07-0400 SaO2% (BldA) [Mass fraction] 98 % Dr. Earl Thornton Work Phone: [facility] 10-19-2022 08:07-0400 Systolic blood pressure 132 mm[Hg] Dr. Earl Thornton Work Phone: [facility] 10-14-2022 07:11-0400 Body mass index (BMI) [Ratio] 31.6 kg/m2 Dr. Earl Thornton Work Phone: [facility] 10-14-2022 07:11-0400 Body temperature 96.8 [degF] Dr. Earl Thornton Work Phone: [facility] 10-14-2022 07:11-0400 Body weight 86.[address] Earl Thornton Work Phone: [facility] 10-14-2022 07:11-0400 Diastolic blood pressure 69 mm[Hg] Dr. Earl Thornton Work Phone: [facility] 10-14-2022 07:11-0400 Heart rate 81 /min Dr. Earl Thornton Work Phone: [facility] 10-14-2022 07:11-0400 Respiratory rate 14 /min Dr. Earl Thornton Work Phone: [facility] 10-14-2022 07:11-0400 SaO2% (BldA) [Mass fraction] 99 % Dr. Earl Thornton Work Phone: [facility] 10-14-2022 07:11-0400 Systolic blood pressure 127 mm[Hg] Dr. Earl Thornton Work Phone: [facility] 09-13-2022 09:19-0400 Body height 165.[address] Earl Thornton Work Phone: [facility] 09-13-2022 09:19-0400 Body mass index (BMI) [Ratio] 30.3 kg/m2 Dr. Earl Thornton Work Phone: [facility] 09-13-2022 09:19-0400 Body temperature 97.2 [degF] Dr. Earl Thornton Work Phone: [facility] 09-13-2022 09:19-0400 Body weight 82.[address] Earl Thornton Work Phone: [facility] 09-13-2022 09:19-0400 Diastolic blood pressure 74 mm[Hg] Dr. Earl Thornton Work Phone: [facility] 09-13-2022 09:19-0400 Heart rate 88 /min Dr. Earl Thornton Work Phone: [facility] 09-13-2022 09:19-0400 Respiratory rate 12 /min Dr. Earl Thornton Work Phone: [facility] 09-13-2022 09:19-0400 SaO2% (BldA) [Mass fraction] 95 % Dr. Earl Thornton Work Phone: [facility] 09-13-2022 09:19-0400 Systolic blood pressure 126 mm[Hg] Dr. Earl Thornton Work Phone: [facility] 08-21-2022 10:34-0400 Body temperature 97.9 [degF] [facility].SENIOR OCCUPATIONAL THERAPIST Work Phone: [facility] 08-21-2022 10:34-0400 Body weight 83.73 kg [facility].SENIOR OCCUPATIONAL THERAPIST Work Phone: [facility] 08-21-2022 10:34-0400 Diastolic blood pressure 64 mm[Hg] [facility].SENIOR OCCUPATIONAL THERAPIST Work Phone: [facility] 08-21-2022 10:34-0400 Heart rate 86 /min Wilfrid Laura RN GYN.SENIOR OCCUPATIONAL THERAPIST Work Phone: [facility] 08-21-2022 10:34-0400 Respiratory rate 21 /min [facility].SENIOR OCCUPATIONAL THERAPIST Work Phone: [facility] 08-21-2022 10:34-0400 SaO2% (BldA) [Mass fraction] 98 % [facility] G[facility].SENIOR OCCUPATIONAL THERAPIST Work Phone: [facility] 08-21-2022 10:34-0400 Systolic blood pressure 118 mm[Hg] [facility] G[facility].SENIOR OCCUPATIONAL THERAPIST Work Phone: [facility] 08-19-2022 16:07-0400 Body temperature 97.59 [degF] Lyric Carney RN GYN.SENIOR OCCUPATIONAL THERAPIST Work Phone: [facility] 08-19-2022 16:07-0400 Body weight 85 kg Lyric Carney RN GYN.SENIOR OCCUPATIONAL THERAPIST Work Phone: [facility] 08-19-2022 16:07-0400 Diastolic blood pressure 64 mm[Hg] Lyric Tranf RN GYN.SENIOR OCCUPATIONAL THERAPIST Work Phone: [facility] 08-19-2022 16:07-0400 Heart rate 86 /min Lyric Carney RN GYN.SENIOR OCCUPATIONAL THERAPIST Work Phone: [facility] 08-19-2022 16:07-0400 Respiratory rate 18 /min Lyric Carney RN GYN.SENIOR OCCUPATIONAL THERAPIST Work Phone: [facility] 08-19-2022 16:07-0400 SaO2% (BldA) [Mass fraction] 99 % Lyric Carney RN GYN.SENIOR OCCUPATIONAL THERAPIST Work Phone: [facility] 08-19-2022 16:07-0400 Systolic blood pressure 118 mm[Hg] Lyric Carney RN GYN.SENIOR OCCUPATIONAL THERAPIST Work Phone: [facility] 08-01-2022 05:43-0400 Diastolic blood pressure 76 mm[Hg] Dr. Earl Thornton Work Phone: [facility] 08-01-2022 05:43-0400 Heart rate 81 /min Dr. Earl Thornton Work Phone: [facility] 08-01-2022 05:43-0400 Respiratory rate 16 /min Dr. Earl Thornton Work Phone: [facility] 08-01-2022 05:43-0400 SaO2% (BldA) [Mass fraction] 99 % Dr. Earl Thornton Work Phone: [facility] 08-01-2022 05:43-0400 Systolic blood pressure 104 mm[Hg] Dr. Earl Thornton Work Phone: [facility] 08-01-2022 04:20-0400 Body height 165.[address] Earl Thornton Work Phone: [facility] 08-01-2022 04:20-0400 Body mass index (BMI) [Ratio] 29.8 kg/m2 Dr. Earl Thornton Work Phone: [facility] 08-01-2022 04:20-0400 Body temperature 97.9 [degF] Dr. Earl Thornton Work Phone: [facility] 08-01-2022 04:20-0400 Body weight 81.[address] Earl Thornton Work Phone: [facility] 07-02-2022 07:28-0400 Body mass index (BMI) [Ratio] 30.1 kg/m2 Dr. aErl Thornton Work Phone: [facility] 07-02-2022 07:28-0400 Body temperature 97.8 [degF] Dr. Earl Thornton Work Phone: [facility] 07-02-2022 07:28-0400 Body weight 82.[address] Earl Thornton Work Phone: [facility] 07-02-2022 07:28-0400 Diastolic blood pressure 84 mm[Hg] Dr. Earl Thornton Work Phone: [facility] 07-02-2022 07:28-0400 Heart rate 98 /min Dr. Earl Thornton Work Phone: [facility] 07-02-2022 07:28-0400 Respiratory rate 14 /min Dr. Earl Thornton Work Phone: [facility] 07-02-2022 07:28-0400 SaO2% (BldA) [Mass fraction] 99 % Dr. Earl Thornton Work Phone: [facility] 07-02-2022 07:28-0400 Systolic blood pressure 123 mm[Hg] Dr. Earl Thornton Work Phone: [facility] 06-14-2022 12:00-0400 Respiratory rate 16 /min Dr. Earl Thornton Work Phone: [facility] 06-14-2022 10:37-0400 Diastolic blood pressure 87 mm[Hg] Dr. Earl Thornton Work Phone: [facility] 06-14-2022 10:37-0400 Heart rate 90 /min Dr. Earl Thornton Work Phone: [facility] 06-14-2022 10:37-0400 SaO2% (BldA) [Mass fraction] 99 % Dr. Earl Thornton Work Phone: [facility] 06-14-2022 10:37-0400 Systolic blood pressure 130 mm[Hg] Dr. Earl Thornton Work Phone: [facility] 06-14-2022 08:23-0400 Body mass index (BMI) [Ratio] 31.8 kg/m2 Dr. Earl Thornton Work Phone: [facility] 06-14-2022 08:23-0400 Body temperature 96.2 [degF] Dr. Earl Thornton Work Phone: [facility] 06-14-2022 08:23-0400 Body weight 86.[address] Earl Thornton Work Phone: [facility] 06-12-2022 12:29-0400 Body mass index (BMI) [Ratio] 32.1 kg/m2 Dr. Earl Thornton Work Phone: [facility] 06-12-2022 12:29-0400 Body temperature 98 [degF] Dr. Earl Thornton Work Phone: [facility] 06-12-2022 12:29-0400 Body weight 87.[address] Earl Thornton Work Phone: [facility] 06-12-2022 12:29-0400 Diastolic blood pressure 82 mm[Hg] Dr. Earl Thornton Work Phone: [facility] 06-12-2022 12:29-0400 Heart rate 90 /min Dr. Earl Thornton Work Phone: [facility] 06-12-2022 12:29-0400 Respiratory rate 22 /min Dr. Earl Thornton Work Phone: [facility] 06-12-2022 12:29-0400 SaO2% (BldA) [Mass fraction] 98 % Dr. Earl Thornton Work Phone: [facility] 06-12-2022 12:29-0400 Systolic blood pressure 142 mm[Hg] Dr. Earl Thornton Work Phone: [facility] 06-02-2022 18:35-0400 Respiratory rate 18 /min No Primary Care Physician [facility] 06-02-2022 15:20-0400 Diastolic blood pressure 79 mm[Hg] No Primary Care Physician [facility] 06-02-2022 15:20-0400 Heart rate 96 /min No Primary Care Physician [facility] 06-02-2022 15:20-0400 Systolic blood pressure 106 mm[Hg] No Primary Care Physician [facility] 06-02-2022 14:46-0400 Body height 165.1 cm No Primary Care Physician [facility] 06-02-2022 14:46-0400 Body mass index (BMI) [Ratio] 32.1 kg/m2 No Primary Care Physician [facility] 06-02-2022 14:46-0400 Body temperature 98 [degF] No Primary Care Physician [facility] 06-02-2022 14:46-0400 Body weight 87.54 kg No Primary Care Physician [facility] 06-02-2022 14:46-0400 SaO2% (BldA) [Mass fraction] 100 % No Primary Care Physician [facility] 05-06-2022 06:35-0400 Body mass index (BMI) [Ratio] 32.7 kg/m2 No Primary Care Physician [facility] 05-06-2022 06:35-0400 Body temperature 97.6 [degF] No Primary Care Physician [facility] 05-06-2022 06:35-0400 Body weight 89.2 kg No Primary Care Physician [facility] 05-06-2022 06:35-0400 Diastolic blood pressure 126 mm[Hg] No Primary Care Physician [facility] 05-06-2022 06:35-0400 Heart rate 82 /min No Primary Care Physician [facility] 05-06-2022 06:35-0400 Respiratory rate 15 /min No Primary Care Physician [facility] 05-06-2022 06:35-0400 SaO2% (BldA) [Mass fraction] 99 % No Primary Care Physician [facility] 05-06-2022 06:35-0400 Systolic blood pressure 166 mm[Hg] No Primary Care Physician [facility] 05-05-2022 08:48-0400 Diastolic blood pressure 79 mm[Hg] No Primary Care Physician [facility] 05-05-2022 08:48-0400 Heart rate 76 /min No Primary Care Physician [facility] 05-05-2022 08:48-0400 Respiratory rate 15 /min No Primary Care Physician [facility] 05-05-2022 08:48-0400 SaO2% (BldA) [Mass fraction] 98 % No Primary Care Physician [facility] 05-05-2022 08:48-0400 Systolic blood pressure 138 mm[Hg] No Primary Care Physician [facility] 05-05-2022 06:36-0400 Body mass index (BMI) [Ratio] 32.8 kg/m2 No Primary Care Physician [facility] 05-05-2022 06:36-0400 Body temperature 98.7 [degF] No Primary Care Physician [facility] 05-05-2022 06:36-0400 Body weight 89.5 kg No Primary Care Physician [facility] 05-04-2022 12:25-0400 Body height 165.1 cm No Primary Care Physician [facility] 05-04-2022 12:25-0400 Body temperature 96.1 [degF] No Primary Care Physician [facility] 05-04-2022 12:25-0400 Diastolic blood pressure 84 mm[Hg] No Primary Care Physician [facility] 05-04-2022 12:25-0400 Heart rate 84 /min No Primary Care Physician [facility] 05-04-2022 12:25-0400 Respiratory rate 18 /min No Primary Care Physician [facility] 05-04-2022 12:25-0400 SaO2% (BldA) [Mass fraction] 100 % No Primary Care Physician [facility] 05-04-2022 12:25-0400 Systolic blood pressure 133 mm[Hg] No Primary Care Physician [facility] 02-13-2022 15:39-0500 Body height 165.1 cm No Primary Care Physician [facility] Work Phone: 02-13-2022 15:39-0500 Body mass index (BMI) [Ratio] 32.3 kg/m2 No Primary Care Physician [facility] 02-13-2022 15:39-0500 Body temperature 96.4 [degF] No Primary Care Physician [facility] 02-13-2022 15:39-0500 Body weight 88.31 kg No Primary Care Physician [facility] 02-13-2022 15:39-0500 Diastolic blood pressure 95 mm[Hg] No Primary Care Physician [facility] 02-13-2022 15:39-0500 Heart rate 131 /min No Primary Care Physician [facility] 02-13-2022 15:39-0500 Respiratory rate 28 /min No Primary Care Physician [facility] 02-13-2022 15:39-0500 SaO2% (BldA) [Mass fraction] 100 % No Primary Care Physician [facility] 02-13-2022 15:39-0500 Systolic blood pressure 134 mm[Hg] No Primary Care Physician [facility] 02-13-2022 01:35-0500 Body height 165.1 cm No Primary Care Physician [facility] Work Phone: 02-13-2022 01:35-0500 Body mass index (BMI) [Ratio] 32.3 kg/m2 No Primary Care Physician [facility] 02-13-2022 01:35-0500 Body temperature 97.9 [degF] No Primary Care Physician [facility] 02-13-2022 01:35-0500 Body weight 87.99 kg No Primary Care Physician [facility] 02-13-2022 01:35-0500 Diastolic blood pressure 87 mm[Hg] No Primary Care Physician [facility] 02-13-2022 01:35-0500 Heart rate 85 /min No Primary Care Physician [facility] 02-13-2022 01:35-0500 Respiratory rate 18 /min No Primary Care Physician [facility] 02-13-2022 01:35-0500 SaO2% (BldA) [Mass fraction] 97 % No Primary Care Physician [facility] 02-13-2022 01:35-0500 Systolic blood pressure 125 mm[Hg] No Primary Care Physician [facility] 02-12-2022 07:58-0500 Body temperature 97.2 [degF] No Primary Care Physician [facility] 01-28-2022 12:44-0500 Diastolic blood pressure 52 mm[Hg] No Primary Care Physician [facility] 01-28-2022 12:44-0500 Heart rate 62 /min No Primary Care Physician [facility] 01-28-2022 12:44-0500 Respiratory rate 16 /min No Primary Care Physician [facility] 01-28-2022 12:44-0500 SaO2% (BldA) [Mass fraction] 100 % No Primary Care Physician [facility] 01-28-2022 12:44-0500 Systolic blood pressure 98 mm[Hg] No Primary Care Physician [facility] 01-28-2022 11:35-0500 Body temperature 98.5 [degF] No Primary Care Physician [facility] 01-28-2022 09:23-0500 Body height 165.1 cm No Primary Care Physician [facility] Work Phone: 01-28-2022 09:23-0500 Body mass index (BMI) [Ratio] 32.9 kg/m2 No Primary Care Physician [facility] 01-28-2022 09:23-0500 Body weight 89.7 kg No Primary Care Physician [facility] 12-29-2021 08:38-0500 Body temperature 97.7 [degF] No Primary Care Physician [facility] Work Phone: 12-29-2021 08:38-0500 Diastolic blood pressure 87 mm[Hg] No Primary Care Physician [facility] Work Phone: 12-29-2021 08:38-0500 Heart rate 72 /min No Primary Care Physician [facility] Work Phone: 12-29-2021 08:38-0500 Respiratory rate 17 /min No Primary Care Physician [facility] Work Phone: 12-29-2021 08:38-0500 SaO2% (BldA) [Mass fraction] 99 % No Primary Care Physician [facility] Work Phone: 12-29-2021 08:38-0500 Systolic blood pressure 132 mm[Hg] No Primary Care Physician [facility] Work Phone: 12-25-2021 11:06-0500 Diastolic Blood Pressure Non-Invasive 65 1 MARICRUZ ZAMUDIO MD [facility] 12-25-2021 11:06-0500 Heart rate 66 /min MARICRUZ ZAMUDIO MD [facility] 12-25-2021 11:06-0500 Respiratory rate 20 /min MARICRUZ ZAMUDIO MD [facility] 12-25-2021 11:06-0500 Systolic Blood Pressure Non-Invasive 130 1 MARICRUZ ZAMUDIO MD [facility] 12-25-2021 09:28-0500 Body height 165.1 cm MARICRUZ ZAMUDIO MD [facility] 12-25-2021 09:28-0500 Body weight 90 kg MARICRUZ ZAMUDIO MD [facility] 12-25-2021 09:28-0500 Diastolic Blood Pressure Non-Invasive 87 1 MARICRUZ ZAMUDIO MD [facility] 12-25-2021 09:28-0500 Heart rate 87 /min MARICRUZ ZAMUDIO MD [facility] 12-25-2021 09:28-0500 Respiratory rate 22 /min MARICRUZ ZAMUDIO MD [facility] 12-25-2021 09:28-0500 Systolic Blood Pressure Non-Invasive 132 1 MARICRUZ ZAMUDIO MD [facility] 12-24-2021 08:30-0500 Body height 165.1 cm No Primary Care Physician [facility] Work Phone: 12-24-2021 08:30-0500 Body mass index (BMI) [Ratio] 33 kg/m2 No Primary Care Physician [facility] Work Phone: 12-24-2021 08:30-0500 Body temperature 97.5 [degF] No Primary Care Physician [facility] Work Phone: 12-24-2021 08:30-0500 Body weight 90.17 kg No Primary Care Physician [facility] Work Phone: 12-24-2021 08:30-0500 Diastolic blood pressure 74 mm[Hg] No Primary Care Physician [facility] Work Phone: 12-24-2021 08:30-0500 Heart rate 91 /min No Primary Care Physician [facility] Work Phone: 12-24-2021 08:30-0500 Respiratory rate 17 /min No Primary Care Physician [facility] Work Phone: 12-24-2021 08:30-0500 SaO2% (BldA) [Mass fraction] 98 % No Primary Care Physician [facility] Work Phone: 12-24-2021 08:30-0500 Systolic blood pressure 123 mm[Hg] No Primary Care Physician [facility] Work Phone: 12-09-2021 12:22-0400 Body temperature 98.2 [degF] Delmer Augustine RN GYN.SENIOR OCCUPATIONAL THERAPIST Work Phone: [facility] 12-09-2021 12:22-0400 Body weight 91.26 kg Delmer Augustine RN GYN.SENIOR OCCUPATIONAL THERAPIST Work Phone: [facility] 12-09-2021 12:22-0400 Diastolic blood pressure 80 mm[Hg] Delmer Augustine RN GYN.SENIOR OCCUPATIONAL THERAPIST Work Phone: [facility] 12-09-2021 12:22-0400 Heart rate 100 /min Delmer Augustine RN GYN.SENIOR OCCUPATIONAL THERAPIST Work Phone: [facility] 12-09-2021 12:22-0400 Respiratory rate 21 /min Delmer Augustine RN GYN.SENIOR OCCUPATIONAL THERAPIST Work Phone: [facility] 12-09-2021 12:22-0400 SaO2% (BldA) [Mass fraction] 99 % Delmer Augustine RN GYN.SENIOR OCCUPATIONAL THERAPIST Work Phone: [facility] 12-09-2021 12:22-0400 Systolic blood pressure 120 mm[Hg] Delmer Augustine RN GYN.SENIOR OCCUPATIONAL THERAPIST Work Phone: [facility] 10-27-2021 18:13-0400 Body temperature 98.6 [degF] Ansley Heller RN GYN.SENIOR OCCUPATIONAL THERAPIST Work Phone: [facility] 10-27-2021 18:13-0400 Body weight 85.91 kg Ansley Heller RN GYN.SENIOR OCCUPATIONAL THERAPIST Work Phone: [facility] 10-27-2021 18:13-0400 Diastolic blood pressure 78 mm[Hg] Ansley Heller RN GYN.SENIOR OCCUPATIONAL THERAPIST Work Phone: [facility] 10-27-2021 18:13-0400 Heart rate 91 /min Ansley Heller RN GYN.SENIOR OCCUPATIONAL THERAPIST Work Phone: [facility] 10-27-2021 18:13-0400 Respiratory rate 18 /min Ansley Heller RN GYN.SENIOR OCCUPATIONAL THERAPIST Work Phone: [facility] 10-27-2021 18:13-0400 SaO2% (BldA) [Mass fraction] 99 % Ansley Heller RN GYN.SENIOR OCCUPATIONAL THERAPIST Work Phone: [facility] 10-27-2021 18:13-0400 Systolic blood pressure 120 mm[Hg] Ansley Heller RN GYN.SENIOR OCCUPATIONAL THERAPIST Work Phone: [facility] 10-14-2021 14:29-0400 Body height 165.1 cm No Primary Care Physician [facility] Work Phone: 10-14-2021 14:29-0400 Body mass index (BMI) [Ratio] 30.9 kg/m2 No Primary Care Physician [facility] Work Phone: 10-14-2021 14:29-0400 Body temperature 97.7 [degF] No Primary Care Physician [facility] Work Phone: 10-14-2021 14:29-0400 Body weight 84.4 kg No Primary Care Physician [facility] Work Phone: 10-14-2021 14:29-0400 Diastolic blood pressure 71 mm[Hg] No Primary Care Physician [facility] Work Phone: 10-14-2021 14:29-0400 Heart rate 99 /min No Primary Care Physician [facility] Work Phone: 10-14-2021 14:29-0400 Respiratory rate 14 /min No Primary Care Physician [facility] Work Phone: 10-14-2021 14:29-0400 SaO2% (BldA) [Mass fraction] 98 % No Primary Care Physician [facility] Work Phone: 10-14-2021 14:29-0400 Systolic blood pressure 124 mm[Hg] No Primary Care Physician [facility] Work Phone: 09-16-2021 15:53-0400 Body temperature 98 [degF] No Primary Care Physician [facility] Work Phone: 09-16-2021 15:53-0400 Diastolic blood pressure 73 mm[Hg] No Primary Care Physician [facility] Work Phone: 09-16-2021 15:53-0400 Heart rate 74 /min No Primary Care Physician [facility] Work Phone: 09-16-2021 15:53-0400 Respiratory rate 16 /min No Primary Care Physician [facility] Work Phone: 09-16-2021 15:53-0400 SaO2% (BldA) [Mass fraction] 99 % No Primary Care Physician [facility] Work Phone: 09-16-2021 15:53-0400 Systolic blood pressure 126 mm[Hg] No Primary Care Physician [facility] Work Phone: 09-16-2021 02:10-0400 Body mass index (BMI) [Ratio] 30.9 kg/m2 No Primary Care Physician [facility] Work Phone: 09-16-2021 02:10-0400 Body weight 82.2 kg No Primary Care Physician [facility] Work Phone: 09-16-2021 00:39-0400 Body temperature 97.9 [degF] No Primary Care Physician [facility] Work Phone: 09-16-2021 00:39-0400 Diastolic blood pressure 65 mm[Hg] No Primary Care Physician [facility] Work Phone: 09-16-2021 00:39-0400 Heart rate 89 /min No Primary Care Physician [facility] Work Phone: 09-16-2021 00:39-0400 Respiratory rate 18 /min No Primary Care Physician [facility] Work Phone: 09-16-2021 00:39-0400 SaO2% (BldA) [Mass fraction] 97 % No Primary Care Physician [facility] Work Phone: 09-16-2021 00:39-0400 Systolic blood pressure 127 mm[Hg] No Primary Care Physician [facility] Work Phone: 09-15-2021 22:16-0400 Body height 162.56 cm No Primary Care Physician [facility] Work Phone: 09-15-2021 22:16-0400 Body mass index (BMI) [Ratio] 30.2 kg/m2 No Primary Care Physician [facility] Work Phone: 09-15-2021 22:16-0400 Body weight 79.83 kg No Primary Care Physician [facility] Work Phone: 09-02-2021 08:09-0400 Body temperature 97.4 [degF] [facility] Work Phone: 09-02-2021 08:09-0400 Diastolic blood pressure 68 mm[Hg] [facility] Work Phone: 09-02-2021 08:09-0400 Heart rate 73 /min [facility] Work Phone: 09-02-2021 08:09-0400 Respiratory rate 16 /min [facility] Work Phone: 09-02-2021 08:09-0400 SaO2% (BldA) [Mass fraction] 100 % [facility] Work Phone: 09-02-2021 08:09-0400 Systolic blood pressure 115 mm[Hg] [facility] Work Phone: 08-31-2021 21:01-0400 Body height 165 cm [facility] Work Phone: 08-31-2021 21:01-0400 Body mass index (BMI) [Ratio] 30.4 kg/m2 [facility] Work Phone: 08-31-2021 21:01-0400 Body weight 83 kg [facility] Work Phone: 08-31-2021 20:48-0400 Inhaled oxygen flow rate 2 L/min [facility] Work Phone: 08-31-2021 17:48-0400 Body temperature 98.1 [degF] [facility] Work Phone: 08-31-2021 17:48-0400 Diastolic blood pressure 63 mm[Hg] [facility] Work Phone: 08-31-2021 17:48-0400 Heart rate 71 /min [facility] Work Phone: 08-31-2021 17:48-0400 Respiratory rate 16 /min [facility] Work Phone: 08-31-2021 17:48-0400 SaO2% (BldA) [Mass fraction] 98 % [facility] Work Phone: 08-31-2021 17:48-0400 Systolic blood pressure 103 mm[Hg] [facility] Work Phone: 08-31-2021 17:18-0400 Body height 165.1 cm [facility] Work Phone: 08-31-2021 17:18-0400 Body mass index (BMI) [Ratio] 30.4 kg/m2 [facility] Work Phone: 08-31-2021 17:18-0400 Body weight 83 kg [facility] Work Phone: 08-23-2021 07:10-0400 Diastolic blood pressure 76 mm[Hg] [facility] Work Phone: 08-23-2021 07:10-0400 Heart rate 72 /min [facility] Work Phone: 08-23-2021 07:10-0400 Respiratory rate 18 /min [facility] Work Phone: 08-23-2021 07:10-0400 SaO2% (BldA) [Mass fraction] 98 % [facility] Work Phone: 08-23-2021 07:10-0400 Systolic blood pressure 124 mm[Hg] [facility] Work Phone: 08-23-2021 05:10-0400 Body height 165.1 cm [facility] Work Phone: 08-23-2021 05:10-0400 Body mass index (BMI) [Ratio] 32 kg/m2 [facility] Work Phone: 08-23-2021 05:10-0400 Body temperature 97.6 [degF] [facility] Work Phone: 08-23-2021 05:10-0400 Body weight 87.2 kg [facility] Work Phone: 08-13-2021 08:24-0400 Diastolic blood pressure 59 mm[Hg] [facility] Work Phone: 08-13-2021 08:24-0400 Heart rate 80 /min [facility] Work Phone: 08-13-2021 08:24-0400 Systolic blood pressure 117 mm[Hg] [facility] Work Phone: 08-13-2021 07:59-0400 Body temperature 98.6 [degF] [facility] Work Phone: 08-13-2021 07:59-0400 Respiratory rate 16 /min [facility] Work Phone: 08-13-2021 07:59-0400 SaO2% (BldA) [Mass fraction] 99 % [facility] Work Phone: 08-11-2021 00:58-0400 Body height 165.1 cm [facility] Work Phone: 08-11-2021 00:58-0400 Body mass index (BMI) [Ratio] 34.6 kg/m2 [facility] Work Phone: 08-11-2021 00:58-0400 Body weight 94.43 kg [facility] Work Phone: 06-20-2021 01:05-0400 Diastolic blood pressure 56 mm[Hg] [facility] Work Phone: 06-20-2021 01:05-0400 Heart rate 78 /min [facility] Work Phone: 06-20-2021 01:05-0400 Respiratory rate 16 /min [facility] Work Phone: 06-20-2021 01:05-0400 SaO2% (BldA) [Mass fraction] 97 % [facility] Work Phone: 06-20-2021 01:05-0400 Systolic blood pressure 124 mm[Hg] [facility] Work Phone: 06-20-2021 00:03-0400 Body height 165.1 cm [facility] Work Phone: 06-20-2021 00:03-0400 Body mass index (BMI) [Ratio] 33.9 kg/m2 [facility] Work Phone: 06-20-2021 00:03-0400 Body temperature 97.7 [degF] [facility] Work Phone: 06-20-2021 00:03-0400 Body weight 92.4 kg [facility] Work Phone: 06-15-2021 12:14-0400 Body temperature 97.9 [degF] [facility] Work Phone: 06-15-2021 12:14-0400 Diastolic blood pressure 56 mm[Hg] [facility] Work Phone: 06-15-2021 12:14-0400 Heart rate 81 /min [facility] Work Phone: 06-15-2021 12:14-0400 Systolic blood pressure 114 mm[Hg] [facility] Work Phone: 06-15-2021 12:09-0400 Body height 165.1 cm [facility] Work Phone: 06-15-2021 12:09-0400 Body mass index (BMI) [Ratio] 32.5 kg/m2 [facility] Work Phone: 06-15-2021 12:09-0400 Body weight 88.9 kg [facility] Work Phone: 04-19-2021 13:07-0400 Diastolic blood pressure 63 mm[Hg] [facility] Work Phone: 04-19-2021 13:07-0400 Heart rate 68 /min [facility] Work Phone: 04-19-2021 13:07-0400 Systolic blood pressure 122 mm[Hg] [facility] Work Phone: 04-19-2021 13:06-0400 Body temperature 97.9 [degF] [facility] Work Phone: 04-19-2021 11:23-0400 Body mass index (BMI) [Ratio] 33.7 kg/m2 [facility] Work Phone: 04-19-2021 11:23-0400 Body weight 92.1 kg [facility] Work Phone: Encounters Encounter Date Encounter Type Care Provider Facility Start: 09-14-2024 ambulatory No Primary Car e Physician Facility:[facility] Start: 08-24-2024 End: 08-24-2024 Emergency department patient visit No Primary Care Physician -Emergency Department Work Phone: Start: 08-23-2024 End: 08-23-2024 Emergency department patient visit No Primary Care Physician -Emergency Department Work Phone: Start: 07-12-2024 End: 07-12-2024 Patient encounter procedure Dian POWELL -[facility] Work Phone: Start: 07-12-2024 End: 07-12-2024 ambulatory No Primary Care Physician [facility] Work Phone: Start: 06-27-2024 End: 06-27-2024 ambulatory No Primary Care Physician [facility] Work Phone: Start: 06-27-2024 End: 06-27-2024 Patient encounter procedure Rodrick Kowalski DO -[facility] Work Phone: Start: 06-26-2024 End: 06-26-2024 ambulatory PAUL EUBANKS Facility:[facility] Start: 06-19-2024 End: 06-19-2024 Patient encounter procedure Dian POWELL -[facility] Work Phone: Start: 06-19-2024 End: 06-19-2024 ambulatory No Primary Care Physician [facility] Work Phone: Start: 06-17-2024 End: 06-17-2024 Emergency department patient visit No Primary Care Physician -Emergency Department Work Phone: Start: 05-07-2024 End: 07-07-2024 Follow-up encounter Olinda Martinez APRN.SENIOR OCCUPATIONAL THERAPIST Work Phone: OB/Gynecology Start: 05-04-2024 End: 05-04-2024 ambulatory SVETLANA SCHAEFFER Facility:[facility] Start: 05-04-2024 End: 05-04-2024 Patient encounter procedure Svetlana Schaeffer APRN.SENIOR OCCUPATIONAL THERAPIST Work Phone: OB/Gynecology Comment on above: Screening for STD (s exually transmitted disease) (Primary Dx); Chronic pelvic pain in female; Dermoid cyst of ovary, right Start: 12-29-2023 End: 12-30-2023 ambulatory Chani Hernandez MD Work Phone: OB/Gynecology Comment on above: Endometriosis Start: 12-29-2023 End: 12-29-2023 Patient encounter procedure Chani Hernandez MD Work Phone: OB/Gynecology Comment on above: Chronic pelvic pain in female (Primary Dx); Dermoid cyst Start: 12-26-2023 End: 12-26-2023 Telephone encounter Chani Hernandez MD Work Phone: OB/Gynecology Comment on above: Pelvic Pain Start: 12-23-2023 End: 12-23-2023 Emergency department patient visit No Primary Care Physician Facility:[facility] Start: 12-15-2023 End: 12-15-2023 Telephone encounter Chani Hernandez MD Work Phone: OB/Gynecology Comment on above: Pelvic Pain Start: 12-13-2023 End: 12-13-2023 Office outpatient visit 25 minutes Patricia Whitehead APRN.SENIOR OCCUPATIONAL THERAPIST Work Phone: [facility] Comment on above: Pharyngitis, unspeci fied etiology (Primary Dx); Sore throat; Headache, unspecified headache type Start: 12-13-2023 End: 12-13-2023 ambulatory DONNA GRANADOS Facility:[facility] Start: 12-13-2023 End: 12-13-2023 Patient encounter procedure Donna Granados MD Work Phone: OB/Gynecology Comment on above: Chronic pelvic pain in female (Primary Dx) Start: 12-13-2023 End: 01-13-2024 Telephone encounter Ansley Ibrahim APRN.CNM Work Phone: OB/Gynecology Comment on above: Pelvic Pain Insurance Authorizat ion Orders Start: 12-13-2023 End: 12-13-2023 ambulatory [employer] [facility] Work Phone: OB/Gynecology Start: 12-13-2023 End: 12-13-2023 Patient encounter procedure [employer] [facility] Work Phone: OB/Gynecology Start: 12-12-2023 End: 12-12-2023 Telephone encounter Chani Hernandez MD Work Phone: OB/Gynecology Start: 12-12-2023 End: 12-12-2023 Emergency department patient visit PHYSICIAN W[facility] Start: 12-09-2023 End: 12-09-2023 Telephone encounter Svetlana Schaeffer RN GYN.SENIOR OCCUPATIONAL THERAPIST Work Phone: OB/Gynecology Comment on above: Results Start: 12-08-2023 End: 12-08-2023 ambulatory SVETLANA SCHAEFFER Facility:[facility] Start: 12-08-2023 End: 12-08-2023 Patient encounter procedure Svetlana Schaeffer RN GYN.SENIOR OCCUPATIONAL THERAPIST Work Phone: OB/Gynecology Comment on above: Pelvic pain in femal e (Primary Dx) Start: 12-06-2023 End: 12-06-2023 Emergency department patient visit PEACE REYNA [facility] Start: 12-05-2023 End: 12-05-2023 Emergency department patient visit Charito Berman Facility:[facility] Start: 12-04-2023 End: 12-04-2023 Emergency department patient visit No Primary Care Physician Facility:[facility] Start: 11-18-2023 End: 11-18-2023 Patient encounter procedure Tosin Avelina Rickettsi RN GYN.SENIOR OCCUPATIONAL THERAPIST Work Phone: [facility] Comment on above: Acute cough (Primary Dx) Start: 11-18-2023 End: 11-18-2023 ambulatory TOSIN L BRIGOTTI Facility:[facility] Start: 11-18-2023 End: 11-18-2023 Subsequent hospital visit by physician Angelina [facility] Work Phone: Radiology Comment on above: Acute cough [R05.1] Start: 08-25-2023 End: 08-25-2023 ambulatory ANSLEY IBRAHIM OB/Gynecology Start: 08-25-2023 End: 08-25-2023 Patient encounter procedure [employer] [facility] [facility] OB/Gynecology Start: 08-24-2023 End: 08-24-2023 ambulatory ANSLEY IBRAHIM Facility:[facility] Start: 08-24-2023 End: 08-24-2023 Patient encounter procedure Ansley Patrice WAGNER Work Phone: OB/Gynecology Comment on above: Pelvic pain in femal e (Primary Dx); Abdominal pain, unspecified abdominal location; Nausea and vomiting, unspecified vomiting type; History of cholecystectomy; Dermoid cyst; PCOS (polycystic ovarian syndrome); Enlarged uterus; Marijuana use, continuous Start: 08-19-2023 Emergency department patient visit [facility] Start: 08-19-2023 End: 08-19-2023 Emergency department [facility] Comment on above: Left lower quadrant abdominal pain (Primary Dx); Nausea and vomiting, unspecified vomiting type; Ovarian mass, right; Liver mass Start: 07-21-2023 End: 07-21-2023 Subsequent hospital visit by physician Angelina [facility] Work Phone: Radiology Comment on above: Injury of right thum b, initial encounter [S69.91XA] Start: 07-21-2023 End: 07-21-2023 [facility] WILFRID LAURA Facility:[facility] Start: 07-21-2023 End: 07-21-2023 Office outpatient visit 15 minutes Wilfrid Laura APRN.SENIOR OCCUPATIONAL THERAPIST Work Phone: [facility] Comment on above: Injury of right thum b, initial encounter (Primary Dx) Start: 06-15-2023 End: 06-15-2023 Patient encounter procedure Paul HAINES Work Phone: [facility] Comment on above: Mild intermittent as thma with acute exacerbation (Primary Dx); Eustachian tube dysfunction, bilateral Start: 06-13-2023 End: 06-13-2023 Emergency department patient visit No Primary Care Physician [facility]-Emergency Department Work Phone: Start: 06-06-2023 End: 06-06-2023 Patient encounter procedure No Primary Care Physician [facility] Work Phone: Start: 06-02-2023 End: 06-02-2023 Patient encounter procedure Paul HAINES Work Phone: [facility] Comment on above: Sinobronchitis (Prim shandra Dx) Start: 05-26-2023 End: 05-26-2023 ambulatory [facility] Work Phone: Start: 05-26-2023 End: 05-26-2023 Patient encounter procedure [facility]-Nuclear Medicine, [facility] Work Phone: Start: 05-15-2023 End: 05-15-2023 [facility] Department Work Phone: Start: 05-10-2023 End: 05-10-2023 Patient encounter procedure Sony Barrios PA-C Work Phone: [facility] Comment on above: URI, acute (Primary Dx) Start: 05-01-2023 End: 05-02-2023 Emergency department patient visit [facility] Work Phone: Start: 04-10-2023 End: 04-10-2023 Emergency department patient visit [facility] Work Phone: Start: 03-04-2023 End: 03-04-2023 Admission to same day surgery center No Primary Care Physician [facility] Start: 03-04-2023 End: 03-04-2023 ambulatory No Primary Care Physician [facility] Work Phone: Start: 02-26-2023 End: 02-26-2023 Emergency department patient visit No Primary Care Physician [facility] Work Phone: Start: 02-09-2023 Telephone encounter Angeline Chu MD Work Phone: OB/Gynecology Comment on above: Schedule Surgery Start: 01-18-2023 ambulatory Ansley Patrice MERCADO.CNM Work Phone: OB/Gynecology Comment on above: Ob Delivery Note Start: 01-18-2023 End: 01-19-2023 Evaluation and management of inpatient No Primary Care Physician [facility] Work Phone: Start: 01-17-2023 End: 01-17-2023 Patient encounter procedure Donna Granados MD Work Phone: OB/Gynecology Comment on above: 37 weeks gestation o f (Primary Dx); Poor growth affecting management of mother in third trimester, single or unspecified fetus; Supervision of other high risk pregnancies, third trimester Start: 01-13-2023 End: 01-13-2023 Patient encounter procedure Pablo Mckeon MD Work Phone: OB/Gynecology Comment on above: 37 weeks gestation o f (Primary Dx); Poor growth affecting management of mother in third trimester, single or unspecified fetus; Supervision of other high risk pregnancies, third trimester Start: 01-11-2023 Telephone encounter Donna Granados MD Work Phone: OB/Gynecology Comment on above: Results Start: 01-10-2023 End: 01-10-2023 Patient encounter procedure Donna Granados MD Work Phone: OB/Gynecology Comment on [...] weeks gestation of Start: 01-05-2023 End: 01-05-2023 Patient encounter procedure Danni Reynolds APRN.CNM Work Phone: OB/Gynecology Comment on above: 36 [...] third trimester; 36 weeks gestation of Start: 12-31-2022 End: 12-31-2022 Patient encounter procedure Angeline Chu MD Work Phone: OB/Gynecology Comment on above: Poor growth af fecting management of mother in third trimester, single or unspecified fetus (Primary Dx); Supervision of other high risk pregnancies, third trimester; 35 weeks gestation of Start: 12-28-2022 End: 12-28-2022 Patient encounter procedure Ansley Patrice CORTESCNM Work Phone: OB/Gynecology Comment on above: with [...] trimester Start: 12-24-2022 End: 12-24-2022 ambulatory SONY DOLIN Facility:[facility] Start: 12-24-2022 End: 12-24-2022 Patient encounter procedure [facility] [employer] Work Phone: [facility] Comment on above: Poor growth af fecting management of mother in third trimester, single or unspecified fetus (Primary Dx); Vaginal bleeding in , third trimester; 34 weeks gestation of Start: 12-23-2022 End: 12-27-2022 Evaluation and management of inpatient SONY DOLIN Facility:[facility] Start: 12-23-2022 Telephone encounter Chani orellana MD Work Phone: OB/Gynecology Comment on above: OB Bleeding Start: 12-23-2022 End: 12-23-2022 ambulatory No Primary Care Physician [facility] Work Phone: Start: 12-23-2022 End: 12-23-2022 Patient encounter procedure No Primary Care Physician [facility] Work Phone: Start: 12-20-2022 End: 12-20-2022 Patient encounter procedure Svetlana Samueljuanito CORTESSENIOR OCCUPATIONAL THERAPIST Work Phone: OB/Gynecology Comment on above: 33 weeks gestation o f (Primary Dx); care, subsequent in third trimester; Leakage of amniotic fluid Start: 12-08-2022 Telephone encounter Danni cabrales APRN.CNM Work Phone: OB/Gynecology Comment on above: Patient Question Start: 12-06-2022 End: 12-06-2022 Patient encounter procedure Ansleyhenrietta Ibrahim APRN.CNM Work Phone: OB/Gynecology Comment on above: with prena tip care elsewhere, antepartum (Primary Dx); 31 weeks gestation of Start: 12-03-2022 End: 12-03-2022 Patient encounter procedure No Primary Care Physician [facility] Work Phone: Start: 11-22-2022 End: 11-22-2022 Patient encounter procedure Danni Reynolds APRN.CNM Work Phone: OB/Gynecology Comment on above: with prena tip care elsewhere, antepartum (Primary Dx); Gastroparesis; History of depression; History of marijuana use; 29 weeks gestation of ; Rh negative state in antepartum period Start: 11-15-2022 End: 11-15-2022 Nursing evaluation of patient and report Nurse Pnob [facility] Work Phone: OB/Gynecology Comment on above: with prena tip care elsewhere, antepartum (Primary Dx); Gastroparesis; History of depression; Engages in nicotine containing substance vaping; History of marijuana use; Nausea and vomiting in Start: 11-06-2022 End: 11-06-2022 Emergency department patient visit Dr. Earl Thornton Work Phone: [facility] Work Phone: Start: 10-22-2022 ambulatory Danni rivera APRN.CNM Work Phone: OB/Gynecology Comment on above: Received Outside [facility] Records Start: 10-21-2022 End: 10-21-[address] Earl Thornton Work Phone: [facility] Work Phone: Start: 10-21-2022 End: 10-21-[address] Earl Thornton Work Phone: [facility]Labor[facility] Work Phone: Start: 10-19-2022 End: 10-19-2022 Emergency department patient visit Dr. Earl Thornton Work Phone: [facility] Work Phone: Start: 10-14-2022 End: 10-14-2022 Emergency department patient visit Dr. Earl Thornton Work Phone: [facility] Work Phone: Start: 09-13-2022 End: 09-13-2022 Emergency department patient visit Dr. Earl Thornton Work Phone: [facility] Work Phone: Start: 08-21-2022 End: 08-21-2022 Office outpatient visit 15 minutes Wilfrid Laura APRN.SENIOR OCCUPATIONAL THERAPIST Work Phone: [facility] Comment on above: Sore throat (Primary Dx); Viral illness Start: 08-19-2022 End: 08-19-2022 Patient encounter procedure Lyric Carney APRN.SENIOR OCCUPATIONAL THERAPIST Work Phone: [facility] Comment on above: Abdominal pain, unsp ecified abdominal location (Primary Dx); 16 weeks gestation of ; Burning with urination Start: 08-01-2022 End: 08-01-2022 Emergency department patient visit Dr. Earl Thornton Work Phone: [facility]Emer[facility] Department Start: 07-22-2022 End: 07-22-[address] Earl Thornton Work Phone: [facility] Start: 07-11-2022 End: 07-11-2022 ambulatory NONE NONE Facility:[facility] Start: 07-02-2022 End: 07-02-2022 Emergency department patient visit Dr. Earl Thornton Work Phone: [facility]Emergency Department Start: 06-14-2022 End: 06-14-2022 Emergency department patient visit Dr. Earl Thornton Work Phone: [facility] Department Start: 06-12-2022 End: 06-12-2022 Emergency department patient visit Dr. Earl Thornton Work Phone: [facility] Start: 06-02-2022 End: 06-02-2022 Emergency department patient visit No Primary [facility] Start: 06-02-2022 End: 06-02-2022 Patient encounter procedure Wilfrid Laura APRN.CNP Work Phone: [facility] Comment on above: Procedure not keith d out (Primary Dx) Start: 05-06-2022 End: 05-06-2022 Emergency department patient visit No Primary Care Physician [facility] Start: 05-05-2022 End: 05-05-2022 Emergency department patient visit No Primary Care Physician [facility] Start: 05-04-2022 End: 05-04-2022 Emergency department patient visit No Primary Care Physician [facility] Start: 04-05-2022 End: 04-05-2022 Patient encounter procedure No Primary Care Physician [facility] Start: 02-26-2022 End: 02-26-2022 Patient encounter procedure No Primary Care Physician [facility] Start: 02-13-2022 End: 02-13-2022 Emergency department patient visit No Primary Care Physician [facility] Start: 02-13-2022 End: 02-13-2022 Emergency department patient visit No Primary [facility] Phys[facility] Start: 02-12-2022 End: 02-12-2022 Patient encounter procedure No Primary Care Physician [facility] Start: 01-28-2022 Non-patient / Non-visit No Yesenia rodolfo Care Physician [facility] Start: 01-28-2022 End: 01-28-2022 Admission to same day surgery center No Primary Care Physician [facility]Endoscopy Start: 01-28-2022 End: 01-28-2022 ambulatory No Primary Care Physician [facility] Work Phone: Start: 01-21-2022 End: 01-21-2022 Patient encounter procedure No Primary Care Physician [facility] Start: 01-07-2022 End: 01-07-2022 Patient encounter procedure No Primary Care Physician [facility] Start: 12-29-2021 End: 12-29-2021 ambulatory No Primary Care Physician [facility] Work Phone: Start: 12-29-2021 End: 12-29-2021 Patient encounter procedure No Primary Care Physician [facility] Start: 12-25-2021 End: 12-25-2021 Emergency department patient visit MARICRUZ ZAMUDIO MD Facility:B Start: 12-25-2021 End: 12-25-2021 Emergency department patient visit MARICRUZ ZAMUDIO MD [facility] Start: 12-24-2021 End: 12-24-2021 Emergency department patient visit No Primary Care Physician [facility] Start: 12-15-2021 End: 12-15-2021 ambulatory No Primary Care Physician [facility] Work Phone: Start: 12-15-2021 End: 12-15-2021 Patient encounter procedure No Primary Care Physician [facility]Laboratory, Specimen Start: 12-09-2021 End: 12-09-2021 Patient encounter procedure Delmer Bradshaw APRN.CNP Work Phone: [facility] Comment on above: Sore throat (Primary Dx); History of asthma Start: 11-08-2021 Refill Nilay hoffman MD Work Phone: [facility] Comment on above: Refill Request Start: 10-27-2021 End: 10-27-2021 Subsequent hospital visit by physician Angelina [facility] Work Phone: Radiology Comment on above: Pain of right hand [ M79.641] Start: 10-27-2021 End: 10-27-2021 Patient encounter procedure Ansley Heller RN GYN.SENIOR OCCUPATIONAL THERAPIST Work Phone: [facility] Comment on above: Pain of right hand ( Primary Dx) Start: 10-14-2021 End: 10-14-2021 Emergency department patient visit No Primary Care Physician [facility] Start: 09-23-2021 End: 09-23-2021 Patient encounter procedure No Primary Care Physician [facility] Start: 09-16-2021 Non-patient / Non-visit No Yesenia rodolfo Care Physician [facility] Start: 09-16-2021 End: 09-16-2021 Evaluation and management of inpatient No [facility] Start: 09-04-2021 End: 09-04-[address] [facility] Start: 08-31-2021 End: 09-02-2021 Evaluation and management of inpatient [facility] 3 Start: 08-31-2021 Admission to [facility] In[facility] Start: 08-23-2021 End: 08-23-2021 Emergency department patient visit [facility]Emer[facility] Start: 08-11-2021 End: 08-13-2021 Evaluation and management of inpatient [facility] Start: 06-20-2021 End: 06-20-2021 Emergency department patient visit [facility] Start: 06-15-2021 End: 06-15-2021 Patient encounter procedure [facility] Start: 06-08-2021 End: 06-08-[address] [facility] Start: 04-19-2021 End: 04-19-2021 Patient encounter procedure [facility] Start: 10-09-2020 End: 10-09-2020 ambulatory [facility] Start: 12-26-2017 End: 12-27-2017 Patient encounter procedure JOHNSYED GALVEZ [facility] Start: 11-30-2017 End: 12-01-2017 Patient encounter procedure JOHN MERZ [facility] Procedures Date Procedure Procedure Detail Performing Clinician Start: 08-24-2024 Urnls dip stick/tablet reagent auto microscopy No Primary Care Physician Start: 08-24-2024 Estimated creatinine clearance No Primar y Care Physician Start: 08-23-2024 Urnls dip stick/tablet reagent auto microscopy No Primary Care Physician Start: 08-23-2024 Estimated creatinine clearance No Primar y Care Physician Start: 06-17-2024 Estimated creatinine clearance No Primar y Care Physician Start: 06-17-2024 Urnls dip stick/tablet reagent auto microscopy No Primary Care Physician Start: 06-17-2024 Computed tomography of abdomen and pelvis with intravenous contrast No Primary Care Physician Start: 12-13-2023 STREP A MOLECULAR (POC) Patricia Whitehead APRN.SENIOR OCCUPATIONAL THERAPIST Work Phone: Start: 12-13-2023 Us pelvic nonobstetric real-time image complete Donna Granados MD Work Phone: Start: 12-08-2023 Urnls dip stick/tablet rgnt auto w/o microscopy Svetlana Schaeffer APRN.SENIOR OCCUPATIONAL THERAPIST Work Phone: Start: 11-18-2023 Radiologic exam chest 2 views Tosin Sung APRN.SENIOR OCCUPATIONAL THERAPIST Work Phone: Start: 08-25-2023 Us pelvic nonobstetric real-time image complete Ansley Ibrahim APRN.CNM Work Phone: Start: 08-19-2023 Ct abdomen & pelvis w/contrast material Payal Tavera PA-C Work Phone: Start: 08-19-2023 End: 08-19-2023 Urnls dip stick/tablet rgnt auto w/o microscopy Payal Tavera PA-C Work Phone: Start: 08-19-2023 Assay of lactate Payal Tavera PA-C Work Phone: Start: 07-21-2023 Radex fingr minimum 2 views Wilfrid Laura RN GYN.SENIOR OCCUPATIONAL THERAPIST Work Phone: Start: 06-13-2023 Computed tomography of abdomen and pelvis with intravenous contrast No Primary Care Physician Start: 05-26-2023 Radionuclide gastric emptying study Start: 05-10-2023 STREP A MOLECULAR (POC) [facility] Provider Start: 03-04-2023 Laparoscopic salpingectomy No Primary Ca re Physician Start: 01-17-2023 URINE OB DIP B/O Donna Granados MD Work Phone: Start: 01-13-2023 URINE OB DIP B/O Pablo Mckeon MD Work Phone: Start: 01-10-2023 biophysical profile non-stress testing Donna Granados MD Work Phone: Start: 01-05-2023 URINE OB DIP B/O Danni Reynolds RN GYN.CNM Work Phone: Start: 01-05-2023 biophysical profile non-stress testing Donna Granados MD Work Phone: Start: 12-31-2022 URINE OB DIP B/O Angeline Chu MD Work Phone: Start: 12-28-2022 biophysical profile non-stress testing Donna Granados MD Work Phone: Start: 12-24-2022 Us preg uterus after 1st trimest 02/07 gestation Negin Otoole DO Work Phone: Start: 12-23-2022 Antibody screen SONY IRWIN Comment on above: Order Comment: Specimen Type: BLOOD SPEC IMENOrdering Facility: [facility] Address: [address] [place] [id number] Performed By: #### T SPN, %BRUNO ####[facility] BLOOD BANKCLIA [id number] [place] [address] [place] Start: 12-23-2022 Ultrasonography for antepartum monitoring of fetus No Primary Care Physician Start: 12-20-2022 Ultrasound scan for growth No Prim shandra Care Physician Start: 12-20-2022 URINE OB DIP B/O Svetlana Samueljuanito RN GYN.SENIOR OCCUPATIONAL THERAPIST Work Phone: Start: 12-20-2022 Group B Streptococcus Culture No Primary Care Physician Start: 12-06-2022 URINE OB DIP B/O Ansley Ibrahim RN GYN.CNM Work Phone: Start: 11-22-2022 URINE OB DIP B/O Danni Reynolds RN GYN.CNM Work Phone: Start: 10-21-2022 GEST GLUC SCREEN, 1-HR, 50 GM, NON-FASTING [facility] Provider Start: 09-13-[address] Earl Thornton Work Phone: Start: 08-21-2022 STREP A MOLECULAR (POC) Paul Eubanks PA Work Phone: Start: 08-19-2022 Urnls dip stick/tablet rgnt auto w/o microscopy Alina Mckeon RN GYN.SENIOR OCCUPATIONAL THERAPIST Work Phone: Start: 07-02-[address] Earl Thornton Work Phone: Start: 06-18-2022 Antibody screen Danni Reynolds RN GYN.CNM Work Phone: Start: 06-18-2022 Bacteria identified in Urine by Culture [facility] Provider Start: 06-18-2022 CBC panel - Blood by Automated count [facility] Provider Start: 06-18-2022 GONORRHEA/CHLAMYDIA NAAT [facility] Provider Start: 06-18-2022 HEP B SURF AG SCRN [facility] Provider Start: 06-18-2022 RPR SCREEN [facility] Provider Start: 06-18-2022 RUBELLA IGG AB [facility] Provider Start: 06-18-2022 TYPE + SCREEN (EXTERNAL LAB) [facility] Provide r Start: 06-18-2022 VARICELLA ZOSTER IGG [facility] Provider Start: 06-12-[address] Earl Thornton Work Phone: Start: 06-02-2022 Transvaginal obstetric ultrasonography No Primary Care Physician Start: 02-13-2022 CT of abdomen and pelvis without contrast No Primary Care Physician Start: 01-28-2022 Esophagogastroduodenoscopy No Primary Ca re Physician Start: 12-09-2021 STREP A MOLECULAR (POC) [facility] Provider Start: 10-27-2021 Radex hand minimum 3 views Ansley Heller APRN.SENIOR OCCUPATIONAL THERAPIST Work Phone: Start: 09-16-2021 Cholangiogram No Primary Care Physician Start: 09-16-2021 Fluoroscopic guidance No Primary Care Physician Start: 09-15-2021 US scan of gallbladder No Primary Care Physician Start: 08-31-2021 Dilation and curettage of uterus Start: 08-31-2021 Pelvic echography Start: 08-23-2021 CT of abdomen and pelvis without contrast Start: 04-19-2021 Urine culture Clostridium difficile detection No Primary Care Physician Enteric Bacteriology No Prim shandra Care Physician History of cholecystectomy Statu s post cholecystectomy No Primary Care Physician Comment on above: Initial uneventful recovery following la p jewel with IOC 09/16/2021 History of cholecystectomy Histo ry of cholecystectomy Ansley Ibrahim RN GYN.CNM Work Phone: Lactoferrin measurement No P [facility] Care Physician Measurement of occul t blood in stool specimen using immunoassay No Primary Care Physician Ova OR parasites identification No Primary Care Physician Urine culture Urine culture Dr. Earl Thornton Work Phone: Viral antigen assay Plan of Treatment Date Care Activity Detail Author Start: 02-23-2026 Screening for malign ant neoplasm of cervix [facility] Start: 05-04-2025 GC (Gonorrhea) Scree delmy (18-24) GC (Gonorrhea) Screening (18-) [facility] Start: 05-04-2025 Screening for Chlamy gogo trachomatis Chlamydia Screening () [facility] Start: 12-15-2024 Pap Testing Pap Testing [facility] Start: 12-15-2024 Screening for malign ant neoplasm of cervix Pap Testing [facility] Start: 12-07-2024 GC (Gonorrhea) Scree delmy (18-24) GC (Gonorrhea) Screening (18-) [facility] Start: 12-07-2024 Screening for Chlamy gogo trachomatis Chlamydia Screening () [facility] Start: 10-08-2024 Influenza vaccination Influenz a Vaccine (Season Ended) [facility] Start: 08-24-2024 [facility] Start: 08-23-2024 [facility] Start: 08-23-2024 GC (Gonorrhea) Harsh brock () GC (Gonorrhea) Screening () [facility] Start: 08-23-2024 Screening for Chlamy gogo trachomatis Chlamydia Screening () [facility] Start: 06-17-2024 [facility] Start: 05-04-2024 End: 08-03-2024 Hepatitis C virus RNA [Units/volume] (viral load) in Serum or Plasma by ELMIRA with probe detection [facility] Comment on above: Expected: 05/04/2024 , Expires: 08/03/2024 Start: 05-04-2024 End: 08-03-2024 HERPES SIMPLEX TYPE 1 AND 2 IG [facility] Comment on above: Expected: 05/04/2024 , Expires: 08/03/2024 Start: 05-04-2024 End: 08-03-2024 HIV 1+2 Ab [Presence] in Serum or Plasma by Immunoassay [facility] Comment on above: Expected: 05/04/2024 , Expires: 08/03/2024 Start: 05-04-2024 End: 08-03-2024 SYPHILIS TREPONEMAL W/REFLEX [facility] Work Phone: Comment on above: Expected: 05/04/2024 , Expires: 08/03/2024 Start: 05-04-2024 End: 05-04-2025 Was endometriosis confirmed by laparoscopy [PhenX] ENDOMETRIOSIS U/S [facility] Anc Imaging Routine Chronic pelvic pain in female Expected: 05/04/2024, Expires: 05/04/2025 [facility] Comment on above: Expected: 05/04/2024 , Expires: 05/04/2025 Start: 02-28-2024 End: 02-28-2024 Patient encounter procedure 02/28/2024 11:20 AM EST Office Visit OB/Gynecology [address] [place] [id number] Angeline Parnell MD [address] [place] [address] annual OB/Gynecology Comment on above: annual Start: 12-30-2023 End: 12-30-2023 Patient encounter procedure OB/Gynecology Comment on above: discuss surgery Start: 12-29-2023 End: 12-29-2023 Patient encounter procedure 12/29/2023 11:30 AM EST Office Visit OB/Gynecology [address] [place] [address] Chani Hernandez MD [address] [place] [address] Discuss surgery OB/Gynecology Comment on above: Discuss surgery Start: 12-13-2023 End: 12-12-2024 US Pelvis PELVIC US [facility] Anc Imaging Routine Pelvic pain in female Expected: 12/13/2023, Expires: 12/12/2024 [facility] Work Phone: Comment on above: Expected: 12/13/2023 , Expires: 12/12/2024 Start: 10-09-2023 Covid-19 Vaccine ( season) Covid-19 Vaccine ( season) [facility] Start: 10-09-2023 Covid-19 Vaccine ( season) Covid-19 Vaccine ( season) [facility] Start: 10-09-2023 Influenza vaccination C [facility] Start: 09-20-2023 DTaP/Tdap/Td vaccine (7 - Td or Tdap) DTaP/Tdap/Td vaccine (7 - Td or Tdap) [facility] Start: 09-20-2023 Urine microalbumin profile DTa P,Tdap,Td Vaccine (7 - Td or Tdap) [facility] Start: 09-08-2023 Influenza vaccination Flu vaccine (# 1) [facility] Start: 09-02-2023 End: 09-02-2023 Patient encounter procedure 09/02/2023 9:30 AM EDT Office Visit OB/Gynecology [address] [place] [address] Ansley Ibrahim APRN.CNM [address] [place] [address] Follow up OB/Gynecology Comment on above: Follow up Start: 08-25-2023 End: 08-25-2023 ambulatory 08/25/2023 3:15 PM EDT Results Only Eve [facility] [address] [place] [address] Eve Gambrills [facility] Start: 08-25-2023 End: 08-25-2023 Manual pelvic examination 08/25/2023 2:00 PM EDT Procedure OB/Gynecology [address] [place] [address] Pelvic pain in female [R10.2]; Dermoid cyst [D36.9] OB/Gynecology Comment on above: Pelvic pain in femal e [R10.2]; Dermoid cyst [D36.9] Start: 08-24-2023 End: 11-23-2023 Choriogonadotropin.beta subunit [Units/volume] in Serum or Plasma HCG QUANTITATIVE Lab Routine Pelvic pain in female Enlarged uterus Expected: 08/24/2023, Expires: 11/23/2023 [facility] Comment on above: Expected: 08/24/2023 , Expires: 11/23/2023 Start: 08-24-2023 End: 08-23-2024 US Pelvis PELVIC US [facility] Anc Imaging Routine Pelvic pain in female Dermoid cyst Expected: 08/24/2023, Expires: 08/23/2024 [facility] Work Phone: Comment on above: Expected: 08/24/2023 , Expires: 08/23/2024 Start: 06-19-2023 Chlamydia Screening (18-24) Chlamydia Screening (18-24) [facility] Start: 06-19-2023 GC (Gonorrhea) Scree delmy (18-24) GC (Gonorrhea) Screening (18-24) [facility] Start: 06-19-2023 Screening for Chlamy gogo trachomatis Chlamydia Screening () [facility] Start: 06-13-2023 [facility] Start: 05-15-2023 [facility] Start: 05-01-2023 [facility] Start: 04-10-2023 [facility] Start: 03-04-2023 Anesthesia intraperi toneal lower abd w/laps nos ANESTH SURG LOWER ABDOMEN [facility] Start: 03-04-2023 Laparoscopy w/rmvl a dnexal structures LAPAROSCOPY REMOVE ADNEXA [facility] Start: 03-04-2023 Ambulation without limitation [facility] Start: 03-04-2023 Medical regimen orde rs management [facility] Start: 03-04-2023 Medication education [facility] Start: 03-04-2023 Patient discharge [facility] Start: 03-04-2023 Procedure discontinued [facility] Start: 03-04-2023 Taking patient vital signs [facility] Start: 03-04-2023 Vital signs measurements [facility] Start: 03-04-2023 [facility] Start: 02-26-2023 [facility] Start: 02-26-2023 [facility] Start: 02-07-2023 Behavioral Health Screening Behavioral Health Screening [facility] Start: 02-07-2023 Depression Assessment Depression Ass essment [facility] Start: 01-19-2023 Patient discharge [facility] Start: 01-18-2023 Administration of medication [facility] Start: 01-18-2023 Application of ice c ollar, cap or bag [facility] Start: 01-18-2023 Catheterization of vein [facility] Start: 01-18-2023 Introduction of urin shandra catheter [facility] Start: 01-18-2023 Measuring intake and output [facility] Start: 01-18-2023 Notification of physician [facility] Start: 01-18-2023 Procedure discontinued [facility] Start: 01-18-2023 Provision of activit y privileges [facility] Start: 01-18-2023 Vital signs measurements [facility] Start: 01-18-2023 [facility] Start: 01-18-2023 Admission procedure [facility] Start: 01-18-2023 Consultation [facility] Start: 12-23-2022 Iv infusion hydratio n each additional hour HYDRATE IV INFUSION ADD-ON [facility] Start: 12-23-2022 Iv infusion hydratio n initial 31 min-1 hour HYDRATION IV INFUSION INIT [facility] Start: 12-23-2022 Administration of bl ood product [facility] Start: 12-23-2022 End: 12-23-2022 [facility] Start: 12-23-2022 Nonstress test [facility] Start: 12-23-2022 Obstetric monitoring [facility] Start: 12-23-2022 Vital signs measurements [facility] Start: 12-20-2022 Nonstress test [facility] Start: 12-20-2022 Obstetric monitoring [facility] Start: 12-20-2022 Vital signs measurements [facility] Start: 12-20-2022 [facility] Start: 12-20-2022 End: 03-21-2023 CBC panel - Blood by Automated count CBC Lab Routine 33 weeks gestation of Expected: 12/20/2022, Expires: 03/21/2023 [facility] Work Phone: Comment on above: Expected: 12/20/2022 , Expires: 03/21/2023 Start: 12-20-2022 Patient discharge [facility] Start: 12-08-2022 RSV Vaccine (1 - Ris k 1-dose series) RSV Vaccine (1 - Risk 1-dose series) [facility] Start: 11-22-2022 End: 01-22-2023 SYPHILIS TOTAL W/REFLEX [facility] Work Phone: Comment on above: Expected: 11/22/2022 , Expires: 01/22/2023 Start: 11-22-2022 End: 01-22-2023 TYPE + SCREEN [facility] Work Phone: Comment on above: Expected: 11/22/2022 , Expires: 01/22/2023 Start: 10-08-2022 Covid-19 Vaccine ( season) Covid-19 Vaccine ( season) [facility] Start: 10-08-2022 Influenza vaccination C [facility] Start: 09-13-2022 Bacteria identified in Urine by Culture [facility] Start: 09-13-2022 [facility] Start: 08-21-2022 End: 09-04-2022 Influenza virus A and B RNA and SARS-CoV-2 (COVID-19) N gene panel - Respiratory specimen by ELMIRA with probe detection COVID WITH FLUA+B, ROUTINE Microbiology Routine Sore throat Viral illness Expected: 08/21/2022, Expires: 09/04/2022 [facility] Work Phone: Comment on above: Expected: 08/21/2022 , Expires: 09/04/2022 Start: 07-02-2022 [facility] Start: 05-06-2022 [facility] Start: 05-04-2022 Blood chemistry [facility] Start: 02-12-2022 Patient referral [facility] Work Phone: Start: 02-07-2022 DEPRESSION ASSESSMENT DEPRESSION ASS ESSMENT [facility] Start: 01-28-2022 Egd transoral biopsy single/multiple EGD BIOPSY SINGLE/MULTIPLE [facility] Start: 01-28-2022 Patient discharge [facility] Start: 12-29-2021 Ova and parasites identified in Unspecified specimen by Light microscopy [facility] Work Phone: Start: 2021 PAP TESTING PAP TESTING [facility] Start: 2021 Screening for malign ant neoplasm of cervix Pap smear [facility] Start: 10-08-2021 Influenza vaccination INFLUENZA (#1) [facility] Start: 09-17-2021 Cholangiogram Cholangiogram/ O R,Initial [facility] Work Phone: Start: 09-17-2021 Fluoroscopic guidance O.R. Fluoro fo r C-Arm [facility] Work Phone: Start: 09-17-2021 [facility] Work Phone: Start: 09-16-2021 [facility] Start: 09-16-2021 Anes intraperitoneal upper abdomen w/laps nos ANESTH SURG UPPER ABDOMEN [facility] Work Phone: Start: 09-16-2021 Laps surg cholecyste ctomy w/cholangiography LAPARO CHOLECYSTECTOMY/GRAPH [facility] Work Phone: Start: 09-16-2021 Following clinical p athway protocol [facility] Work Phone: Start: 09-16-2021 Incentive spirometry [facility] Work Phone: Start: 09-16-2021 End: 09-16-2021 [facility] Work Phone: Start: 09-16-2021 Admission procedure [facility] Work Phone: Start: 09-02-2021 Patient discharge [facility] Work Phone: Start: 09-02-2021 Leukocyte reduced re d blood cells [facility] Work Phone: Start: 09-02-2021 [facility] Work Phone: Start: 09-02-2021 Administration of bl ood product [facility] Work Phone: Start: 09-01-2021 [facility] Work Phone: Start: 08-31-2021 Ambulation therapy management [facility] Work Phone: Start: 08-31-2021 End: 08-31-2021 Application of intermittent pneumatic compression device [facility] Work Phone: Start: 08-31-2021 Elevation of head of bed [facility] Work Phone: Start: 08-31-2021 Incentive spirometry [facility] Work Phone: Start: 08-31-2021 Measuring intake and output [facility] Work Phone: Start: 08-31-2021 Notification of physician [facility] Work Phone: Start: 08-31-2021 Oxygen therapy [facility] Work Phone: Start: 08-31-2021 Patient education [facility] Work Phone: Start: 08-31-2021 Procedures relating to eating and drinking [facility] Work Phone: Start: 08-31-2021 Taking patient vital signs [facility] Work Phone: Start: 08-31-2021 Wound care [facility] Work Phone: Start: 08-31-2021 [facility] Work Phone: Start: 08-31-2021 Following clinical p athway protocol [facility] Work Phone: Start: 08-31-2021 Admission procedure [facility] Work Phone: Start: 08-31-2021 Dilation and curetta ge of uterus Dilation and Curettage, Suction (Not Applicable) [facility] Work Phone: Start: 08-31-2021 Medication education [facility] Work Phone: Start: 08-31-2021 Anesthesia vaginal procedure w/biopsy nos ANESTH VAGINAL PROCEDURES [facility] Work Phone: Start: 08-31-2021 Curettage D & C AFTER DEL MEHDI [facility] Work Phone: Start: 08-31-2021 Unlisted procedure maternity care & delivery MATERNITY CARE PROCEDURE [facility] Work Phone: Start: 08-23-2021 [facility] Work Phone: Start: 08-13-2021 Patient discharge [facility] Work Phone: Start: 08-12-2021 Administration of bl ood product [facility] Work Phone: Start: 08-11-2021 Administration of medication [facility] Work Phone: Start: 08-11-2021 Application of ice c ollar, cap or bag [facility] Work Phone: Start: 08-11-2021 Catheterization of vein [facility] Work Phone: Start: 08-11-2021 Introduction of urin shandra catheter [facility] Work Phone: Start: 08-11-2021 Measuring intake and output [facility] Work Phone: Start: 08-11-2021 Notification of physician [facility] Work Phone: Start: 08-11-2021 Procedure discontinued [facility] Work Phone: Start: 08-11-2021 Provision of activit y privileges [facility] Work Phone: Start: 08-11-2021 Vital signs measurements [facility] Work Phone: Start: 08-11-2021 [facility] Work Phone: Start: 08-11-2021 Admission procedure [facility] Work Phone: Start: 08-11-2021 Consultation [facility] Work Phone: Start: 04-19-2021 Nonstress test [facility] Work Phone: Start: 04-19-2021 Obstetric monitoring [facility] Work Phone: Start: 04-19-2021 Vital signs measurements [facility] Work Phone: Start: 04-19-2021 [facility] Work Phone: Start: 04-19-2021 Patient discharge [facility] Work Phone: Start: 02-07-2021 DEPRESSION ASSESSMENT DEPRESSION ASS ESSMENT [facility] Start: 12-22-2019 Urine microalbumin profile [facility] Start: 2018 Annual PCP Team Theoretical Physicist mady Disease Visit Annual PCP Team Chronic Disease Visit [facility] Start: 2018 Anxiety Screening Anxiety Screening [facility] Start: 2018 CHLAMYDIA SCREENING (18-24) CHLAMYDIA SCREENING (18-24) [facility] Start: 2018 Depression Screening Depression Scre ening [facility] Start: 2018 GC (GONORRHEA) SCREShreya BROCK (18-24) GC (GONORRHEA) SCREENING (18-24) [facility] Start: 2018 HEPATITIS C SCREENING HEPATITIS C SC REENING [facility] Start: 2018 Hepatitis C screening C [facility] Start: 2018 HIV SCREENING HIV SCREENING [facility] Start: 2018 HIV screening HIV Screening [facility] Start: 2018 Spirometry Spirometry [facility] Start: 2016 Meningococcal B Vacc ine (1 of 2 - Standard) Meningococcal B Vaccine (1 of 2 - Standard) [facility] Start: 2016 Meningococcal B Vacc ine: Consider Based On Risk (1 of 2 - Patient Seeks Protection) Meningococcal B Vaccine: Consider Based On Risk (1 of 2 - Patient Seeks Protection) [facility] Start: 2016 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 (1 of 2 - Patient Seeks Protection) MENINGOCOCCAL B: Consider based on risk (1 of 2 - Patient Seeks Protection) [facility] Start: 2016 Screening for Chlamy gogo trachomatis Chlamydia/GC screen [facility] Start: 12-22-2015 HIV screening HIV screen [facility] Start: 2014 PEDS TO ADULT TRANSI TION ANNUAL ASSESSMENT PEDS TO ADULT TRANSITION ANNUAL ASSESSMENT [facility] Start: 03-22-2014 HPV Vaccine (2 - 2-d ose series) HPV Vaccine (2 - 2-dose series) [facility] Start: 2012 Adult depression scr eening assessment DEPRESSION SCREENING [facility] Start: 2012 Depression Screen Depression Screen [facility] Start: 2012 PEDS TO ADULT TRANSI TION INITIAL DISCUSSION PEDS TO ADULT TRANSITION INITIAL DISCUSSION [facility] Start: 12-22-2011 HPV VACCINE (1 - 2-d ose series) HPV VACCINE (1 - 2-dose series) [facility] Start: 2010 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 (1 of 2 - Risk Bexsero 2-dose series) MENINGOCOCCAL B: Consider based on risk (1 of 2 - Risk Bexsero 2-dose series) [facility] Start: 2009 HPV VACCINE (1 - 2-d ose series) HPV VACCINE (1 - 2-dose series) [facility] Start: 03-29-2007 Hepatitis A vaccine (2 of 2 - 2-dose series) Hepatitis A vaccine (2 of 2 - 2-dose series) [facility] Start: 2006 Pneumococcal vaccination Pneum ococcal Vaccine (1 - PCV) [facility] Start: 06-20-2001 COVID-19 VACCINE (#1) COVID-19 VACCI NE (#1) [facility] Start: 2000 HEPATITIS B (1 of 3 - 3-dose series) HEPATITIS B (1 of 3 - 3-dose series) [facility] Start: 2000 Hepatitis B Vaccine (1 of 3 - 3-dose series) Hepatitis B Vaccine (1 of 3 - 3-dose series) [facility] Alanine aminotransfe rase [Enzymatic activity/volume] in Serum or Plasma [facility] Work Phone: Albumin [Mass/volume ] in Serum or Plasma [facility] Work Phone: ALERE STREP A TEST (AG) ALERE ST REP A TEST (AG) Lab Routine Sore throat Ordered: 12/09/2021 [facility] Work Phone: Comment on above: Ordered: 12/09/2021 Alkaline phosphatase [Enzymatic activity/volume] in Serum or Plasma [facility] Work Phone: Anion gap measurement [facility] Work Phone: Anion gap measurement [facility] Aspartate aminotrans ferase [Enzymatic activity/volume] in Serum or Plasma [facility] Work Phone: Bacteria identified in Urine by Culture Urine Culture [facility] Work Phone: Bacteria identified in Urine by Culture URINE CULTURE Microbiology Routine Burning with urination 08/19/2022 4:32 PM EDT [facility] Work Phone: BACTERIAL VAGINOSIS NAAT BACTERI AL VAGINOSIS NAAT Lab Routine Pelvic pain in female 08/24/2023 11:47 AM EDT [facility] BACTERIAL VAGINOSIS NAAT BACTERI AL VAGINOSIS NAAT Lab Routine Pelvic pain in female 12/08/2023 2:34 PM EDT [facility] Bilirubin measuremen t, urine [facility] Work Phone: Bilirubin, total measurement [facility] Work Phone: BUN/Creatinine ratio [facility] Work Phone: BUN/Creatinine ratio [facility] Calcium [Mass/volume ] in Serum or Plasma [facility] Work Phone: Calcium [Mass/volume ] in Serum or Plasma [facility] ALLIE/TRICHOMONAS NAAT ALLIE /TRICHOMONAS NAAT Lab Routine Pelvic pain in female 08/24/2023 11:47 AM EDT [facility] ALLIE/TRICHOMONAS NAAT ALLIE /TRICHOMONAS NAAT Lab Routine Pelvic pain in female 12/08/2023 2:34 PM EDT [facility] Work Phone: Carbon dioxide, tota l [Moles/volume] in Serum or Plasma [facility] Work Phone: Carbon dioxide, tota l [Moles/volume] in Serum or Plasma [facility] Chlamydia trachomatis+Neisseria gonorrhoeae DNA [Presence] in Unspecified specimen by ELMIRA with probe detection GONORRHEA/CHLAMYDIA NAAT Lab Routine Pelvic pain in female 08/24/2023 11:47 AM EDT [facility] Chlamydia trachomatis+Neisseria gonorrhoeae DNA [Presence] in Unspecified specimen by ELMIRA with probe detection GONORRHEA/CHLAMYDIA NAAT Lab Routine Pelvic pain in female 12/08/2023 2:34 PM EDT [facility] Chlamydia trachomatis+Neisseria gonorrhoeae DNA [Presence] in Unspecified specimen by ELMIRA with probe detection GONORRHEA/CHLAMYDIA NAAT Lab Routine Screening for STD (sexually transmitted disease) Ordered: 05/04/2024 [facility] Comment on above: Ordered: 05/04/2024 Chloride [Moles/volu me] in Serum or Plasma [facility] Work Phone: Chloride [Moles/volu me] in Serum or Plasma [facility] Choriogonadotropin.b eta subunit ( test) [Presence] in Serum or Plasma [facility] COVID & INFLUENZA A/ B & RSV PCR, ROUTINE COVID & INFLUENZA A/B & RSV PCR, ROUTINE Microbiology Routine Pharyngitis, unspecified etiology Headache, unspecified headache type 12/13/2023 4:10 PM EST [facility] Work Phone: Creatinine [Moles/vo lume] in Serum or Plasma [facility] Work Phone: Creatinine [Moles/vo lume] in Serum or Plasma [facility] End: 02-02-2023 nonstress test NON-STRESS TEST Procedures Routine Poor growth affecting management of mother in third trimester, single or unspecified fetus Once per week for 4 Occurrences starting 12/28/2022 until 02/02/2023 [facility] Work Phone: Comment on above: Once per week for 4 Occurrences starting 12/28/2022 until 02/02/2023 Glucose [Mass/volume ] in Serum or Plasma [facility] Work Phone: Glucose [Mass/volume ] in Serum or Plasma [facility] Hematocrit [Volume Fraction] of Blood [facility] Work Phone: Hematocrit [Volume Fraction] of Blood [facility] Hemoglobin [Mass/vol ume] in Blood [facility] Work Phone: Hemoglobin [Mass/vol ume] in Blood [facility] Hemoglobin [Presence ] in Urine [facility] Work Phone: Leukocytes [#/volume ] in Blood [facility] Work Phone: Leukocytes [#/volume ] in Blood [facility] Magnesium [Mass/volu me] in Serum or Plasma [facility] Work Phone: Mean corpuscular hemoglobin concentration determination [facility] Work Phone: Mean corpuscular hemoglobin concentration determination [facility] Mean corpuscular hemoglobin determination [facility] Work Phone: Mean corpuscular hemoglobin determination [facility] Measurement of keton es in urine using dipstick [facility] Work Phone: Measurement of renal function [facility] Work Phone: Measurement of renal function [facility] Microscopic urinalysis [facility] Work Phone: Neutrophil count [facility] Work Phone: Neutrophil count [facility] Neutrophil percent differential count [facility] Work Phone: Neutrophil percent differential count [facility] Ova and parasites identified in Unspecified specimen by Light microscopy [facility] Work Phone: Path report.final Dx Spec [facility] Work Phone: Patient Education [facility] Work Phone: Patient referral [facility] Work Phone: pH of Urine [facility] Work Phone: Platelets [#/volume] in Blood [facility] Work Phone: Platelets [#/volume] in Blood [facility] Potassium [Moles/vol ume] in Serum or Plasma [facility] Work Phone: Potassium [Moles/vol ume] in Serum or Plasma [facility] Red blood cell count [facility] Work Phone: Red blood cell count [facility] Red cell distributio n width determination [facility] Work Phone: Red cell distributio n width determination [facility] Sodium [Moles/volume ] in Serum or Plasma [facility] Work Phone: Sodium [Moles/volume ] in Serum or Plasma [facility] Specific gravity of Urine [facility] Work Phone: Total protein measurement [facility] Work Phone: TRICHOMONAS VAGINALIS NAAT TRICH OMONAS VAGINALIS NAAT Lab Routine Screening for STD (sexually transmitted disease) Ordered: 05/04/2024 [facility] Comment on above: Ordered: 05/04/2024 Urea nitrogen [Mass/volume] in Serum or Plasma [facility] Work Phone: Urea nitrogen [Mass/volume] in Serum or Plasma [facility] Urinalysis, blood, qualitative [facility] Work Phone: Urine dipstick for glucose [facility] Work Phone: Urine dipstick for leukocyte esterase [facility] Work Phone: Urine dipstick for nitrite [facility] Work Phone: Urine dipstick for protein [facility] Work Phone: Urine examination [facility] Work Phone: Urine microscopy: epithelial cells [facility] Work Phone: Urine Microscopy: wh ite cells [facility] Work Phone: Urobilinogen [Presen ce] in Urine [facility] Work Phone: [facility] Immunizations Immunization Date Immunization Notes Care Provider Yamel crane 11-22-2022 RHO(D) immune globul in- IV or IM Danni Reynolds APRN.CNKandis Work Phone: [facility] Work Phone: 09-19-2013 human papilloma viru s vaccine, quadrivalent Ansley Ibrahim APRN.CNKandis Work Phone: [facility] Work Phone: 09-19-2013 tetanus toxoid, redu marycruz diphtheria toxoid, and acellular pertussis vaccine, adsorbed Ansley Ibrahim APRN.CNM Work Phone: [facility] Work Phone: 09-26-2006 diphtheria, tetanus toxoids and acellular pertussis vaccine, unspecified formulation Ansley Ibrahim APRN.CNM Work Phone: [facility] Work Phone: 09-26-2006 hepatitis A vaccine, unspecified formulation Ansley Ibrahim APRN.CNM Work Phone: [facility] Work Phone: 09-26-2006 measles, mumps, rube lla, and varicella virus vaccine Ansley Ibrahim APRN.CNM Work Phone: [facility] Work Phone: 09-26-2006 poliovirus vaccine, inactivated Ansley Ibrahim APRN.CNM Work Phone: [facility] Work Phone: 11-23-2004 diphtheria, tetanus toxoids and acellular pertussis vaccine, unspecified formulation Ansley Ibrahim APRN.CNM Work Phone: [facility] Work Phone: 11-23-2004 haemophilus influenz ae type b vaccine, conjugate unspecified formulation Ansley Ibrahim APRN.CNM Work Phone: [facility] Work Phone: 11-23-2004 pneumococcal conjuga te vaccine, 7 valent Ansley Ibrahim APRN.CNM Work Phone: [facility] Work Phone: 11-23-2004 poliovirus vaccine, inactivated Ansley Ibrahim APRN.CNM Work Phone: [facility] Work Phone: 11-23-2004 varicella virus vaccine Bia Ibrahim APRN.CNM Work Phone: [facility] Work Phone: 03-27-2002 haemophilus influenz ae type b vaccine, conjugate unspecified formulation Ansley Ibrahim APRN.CNM Work Phone: [facility] Work Phone: 03-27-2002 hepatitis B vaccine, pediatric or pediatric/adolescent dosage Ansley Ibrahim APRN.CNM Work Phone: [facility] Work Phone: 03-27-2002 measles, mumps and rubella virus vaccine Ansleyhenrietta Ibrahim APRN.CNM Work Phone: [facility] Work Phone: 03-27-2002 pneumococcal conjuga te vaccine, 7 valent Ansleyhenrietta Ibrahim RN GYN.CNM Work Phone: [facility] Work Phone: 06-30-2001 DTP-Haemophilus influenzae type b conjugate vaccine Ansley Ibrahim APRN.CNM Work Phone: [facility] Work Phone: 06-30-2001 pneumococcal polysaccharide vaccine, 23 valent Ansley Ibrahim APRN.CNM Work Phone: [facility] Work Phone: 05-05-2001 DTP-Haemophilus influenzae type b conjugate vaccine Ansleyhenrietta Ibrahim APRN.CNM Work Phone: [facility] Work Phone: 05-05-2001 pneumococcal polysaccharide vaccine, 23 valent Ansley Ibrahim APRN.CNM Work Phone: [facility] Work Phone: 05-05-2001 poliovirus vaccine, inactivated Ansley Ibrahim APRN.CNM Work Phone: [facility] Work Phone: 03-07-2001 DTP-Haemophilus influenzae type b conjugate vaccine Ansley Ibrahim APRN.CNM Work Phone: [facility] Work Phone: 03-07-2001 pneumococcal conjuga te vaccine, 7 valent Ansleyhenrietta Ibrahim APRN.CNM Work Phone: [facility] Work Phone: 03-07-2001 poliovirus vaccine, inactivated Ansley Ibrahim APRN.CNM Work Phone: [facility] Work Phone: 01-30-2001 hepatitis B vaccine, pediatric or pediatric/adolescent dosage Ansley Ibrahim APRN.CNM Work Phone: [facility] Work Phone: 2000 hepatitis B vaccine, pediatric or pediatric/adolescent dosage Ansley Ibrahim APRN.CN Work Phone: [facility] Work Phone: Payers Date Payer Category Payer Self-pay [id number] 2021 Medicaid [id number] 2021 Medicaid [id number] 1.315 2013 Private Health Insurance [id number] 1.315 2000 Unknown [id number] 2.16.840.1.819134.3.579.2.627 2000 Unknown [id number] 2.16.840.1.354778.3.579.2.419 2000 Unknown [id number] 2.16.840.1.150732.3.579.2.204 2000 Unknown [id number] 2.16.840.1.943867.3.579.2.204 2000 Unknown [id number] 2.16.840.1.290046.3.579.2.627 2000 Unknown [id number] 2.16.840.1.895584.3.579.2.902 1977 Unknown [id number] 2.16.840.1.923447.3.579.2.430 1977 Unknown [id number] 2.16.840.1.734515.3.579.2.430 1959 Private Health Insurance [id number] Unknown [id number] Unknown UMR TAYLOR [id number] Unknown [id number] 2.16.840.1.079731.3.579.2.462 Unknown [id number] 2.16.840.1.184707.3.579.2.462 Unknown [id number] 2.16.840.1.623755.3.579.2.462 Unknown [id number] 2.16.840.1.341953.3.579.2.462 Unknown [id number] 2.16.840.1.474675.3.579.2.462 Unknown [id number] 2.16.840.1.078900.3.579.2.462 Unknown [id number] 2.16.840.1.265392.3.579.2.462 Unknown [id number] 2.16.840.1.801131.3.579.2.462 Unknown [id number] 2.16.840.1.735348.3.579.2.462 Unknown [id number] 2.16.840.1.853289.3.579.2.462 Social History Date Type Detail Facility Start: 12-14-2020 End: 06-13-2023 Tobacco smoking status [facility] Unknown if ever smoked [facility] Start: 2000 Sex Assigned At Female A [facility] Start: 10-27-2021 End: 11-18-2023 Tobacco smoking status CTIS Ex-smoker [facility] Start: 11-08-2014 End: 11-08-2022 History of tobacco use Current smoker [facility] Start: 11-08-2014 End: 11-08-2022 History of tobacco use Cigarette Smoker [facility] Start: 10-27-2021 End: 11-18-2023 Tobacco use and exposure Smokeless tobacco non-user [facility] Start: 10-27-2021 End: 05-04-2024 Alcohol intake Lifetime non-drinker (finding) [facility] Start: 10-27-2021 [facility] Start: 2000 Sex Assigned At Not on file [facility] Start: 10-17-2021 End: 12-09-2021 Exposure to SARS-CoV-2 (event) Not sure [facility] Tobacco smoking status No Smoking Status Entered [facility] Start: 05-12-2022 [facility] Start: 08-19-2022 End: 11-15-2022 History of Social function [facility] Start: 08-19-2022 End: 11-15-2022 Tobacco use panel [facility] History of tobacco use Passive smoker [facility] National Score (1-100), lower number is lower risk Not on file [facility] Start: 11-15-2022 Education 11 [facility] Tobacco Nicotine Use: Va ping Product in Last 90 Days. [facility] Start: 06-17-2024 End: 06-19-2024 Tobacco smoking status [facility] Smokes tobacco daily (finding) [facility] Start: 08-23-2024 End: 08-24-2024 Tobacco smoking status [facility] Current some day smoker [facility] NEGATED: Highlighted row [facility] NEGATED: Highlighted row Not [facility] Medical Equipment Procedure Code Equipment Code Equipment Original Text Equipment Identifier Dates Total cholecystectomy with exploration of common bile duct PREDATORY ANIMAL HUNTER,CLIP 5MM LIGAMAX FDA Start: 09-16-2021 Total cholecystectomy with exploration of common bile duct PREDATORY ANIMAL HUNTER,CLIP 5MM LIGAMAX FDA Start: 09-16-2021 Total cholecystectomy with exploration of common bile duct PREDATORY ANIMAL HUNTER,CLIP 5MM LIGAMAX FDA Start: 09-16-2021 Total cholecystectomy with exploration of common bile duct PREDATORY ANIMAL HUNTER,CLIP 5MM LIGAMAX FDA Start: 09-16-2021 Total cholecystectomy with exploration of common bile duct PREDATORY ANIMAL HUNTER,CLIP 5MM LIGAMAX FDA Start: 09-16-2021 Total cholecystectomy with exploration of common bile duct PREDATORY ANIMAL HUNTER,CLIP 5MM LIGAMAX FDA Start: 09-16-2021 Total cholecystectomy with exploration of common bile duct PREDATORY ANIMAL HUNTER,CLIP 5MM LIGAMAX FDA Start: 09-16-2021 Total cholecystectomy with exploration of common bile duct PREDATORY ANIMAL HUNTER,CLIP 5MM LIGAMAX FDA Start: 09-16-2021 Total cholecystectomy with exploration of common bile duct PREDATORY ANIMAL HUNTER,CLIP 5MM LIGAMAX FDA Start: 09-16-2021 Total cholecystectomy with exploration of common bile duct PREDATORY ANIMAL HUNTER,CLIP 5MM LIGAMAX FDA Start: 09-16-2021 Total cholecystectomy with exploration of common bile duct PREDATORY ANIMAL HUNTER,CLIP 5MM LIGAMAX FDA Start: 09-16-2021 Total cholecystectomy with exploration of common bile duct PREDATORY ANIMAL HUNTER,CLIP 5MM LIGAMAX FDA Start: 09-16-2021 Total cholecystectomy with exploration of common bile duct PREDATORY ANIMAL HUNTER,CLIP 5MM LIGAMAX FDA Start: 09-16-2021 Total cholecystectomy with exploration of common bile duct PREDATORY ANIMAL HUNTER,CLIP 5MM LIGAMAX FDA Start: 09-16-2021 Total cholecystectomy with exploration of common bile duct PREDATORY ANIMAL HUNTER,CLIP 5MM LIGAMAX FDA Start: 09-16-2021 Total cholecystectomy with exploration of common bile duct PREDATORY ANIMAL HUNTER,CLIP 5MM LIGAMAX FDA Start: 09-16-2021 Total cholecystectomy with exploration of common bile duct PREDATORY ANIMAL HUNTER,CLIP 5MM LIGAMAX FDA Start: 09-16-2021 Total cholecystectomy with exploration of common bile duct PREDATORY ANIMAL HUNTER,CLIP 5MM LIGAMAX FDA Start: 09-16-2021 Total cholecystectomy with exploration of common bile duct PREDATORY ANIMAL HUNTER,CLIP 5MM LIGAMAX FDA Start: 09-16-2021 Total cholecystectomy with exploration of common bile duct PREDATORY ANIMAL HUNTER,CLIP 5MM LIGAMAX FDA Start: 09-16-2021 Total cholecystectomy with exploration of common bile duct PREDATORY ANIMAL HUNTER,CLIP 5MM LIGAMAX FDA Start: 09-16-2021 Total cholecystectomy with exploration of common bile duct PREDATORY ANIMAL HUNTER,CLIP 5MM LIGAMAX FDA Start: 09-16-2021 Total cholecystectomy with exploration of common bile duct PREDATORY ANIMAL HUNTER,CLIP 5MM LIGAMAX FDA Start: 09-16-2021 Total cholecystectomy with exploration of common bile duct PREDATORY ANIMAL HUNTER,CLIP 5MM LIGAMAX FDA Start: 09-16-2021 Total cholecystectomy with exploration of common bile duct PREDATORY ANIMAL HUNTER,CLIP 5MM LIGAMAX FDA Start: 09-16-2021 Goals Date Patient Goal Desired Activity /State Personal health goal Personal health goal Functional Status Date Assessment Result Facility 12-06-2023 Functional Status Independent [facility] 12-06-2023 Functional Status Repositions self [place] 12-27-2022 Are you deaf, or do you have serious difficulty hearing No 12/27/2022 9:37 AM Katherine Plummer, STEVENSON No [facility] 12-27-2022 Are you blind, or do you have serious difficulty seeing, even when wearing glasses No 12/27/2022 9:37 AM Katherine Plummer, RN No [facility] 12-27-2022 Do you have serious difficulty walking or climbing stairs No 12/27/2022 9:37 AM Katherine Plummer, STEVENSON No [facility] 12-27-2022 Do you have difficul ty dressing or bathing No 12/27/2022 9:37 AM Katherine Plummer, STEVENSON No [facility] 12-27-2022 Because of a physica l, mental, or emotional condition, do you have difficulty doing errands alone such as visiting a physician's office or shopping No 12/27/2022 9:37 AM Katherine Plummer, STEVENSON No [facility] 09-16-2021 Functional status Activity Abili ty Independent [facility] Work Phone: 09-02-2021 Functional status Ambulates;Bath room Privilege [facility] Work Phone: Mental Status Date Assessment Result Facility 12-06-2023 Mental Status Orientation Oriented x 4 [facility] 12-06-2023 Mental Status [facility] 03-04-2023 Cognitive function Voice/Name;Touch/Shaki ng [facility] Work Phone: 01-19-2023 Cognitive function Level Of Cons ciousness Awake;Alert [facility] Work Phone: 12-27-2022 Because of a physica l, mental, or emotional condition, do you have serious difficulty concentrating, remembering, or making decisions No 12/27/2022 9:37 AM Katherine Plummer, STEVENSON [facility] 11-06-2022 Cognitive function Level Of Cons ciousness Awake;Alert;Appropriate;Fol lows Commands [facility] Work Phone: 01-28-2022 Cognitive function Voice/Name [facility] Work Phone: 12-25-2021 Mental Status Orientation Oriented x 4 [facility] 12-25-2021 Mental Status [facility] 09-16-2021 Cognitive function Level Of Cons ciousness Awake;Alert;Appropriate [facility] Work Phone: 09-02-2021 Cognitive function Voice/Name [facility] Work Phone: 08-31-2021 Cognitive function Patient Behav ior Cooperative [facility] Work Phone: 08-23-2021 Cognitive function Level Of Cons ciousness Awake;Alert;Appropriate;Fol lows Commands [facility] Work Phone: 08-12-2021 Cognitive function Level Of Cons ciousness Awake;Alert;Appropriate;Fol lows Commands [facility] Work Phone: Clinical Notes 10-27-2021 to 08-24-2024 Note Date & Type Note Facility 08-24-2024 Discharge summary [facility] 08-24-2024 Discharge summary Note Date/Time August 24, 2024 2:30pm [facility] Medical Records Department [address] [place] [address] Emergency Department Summary 08/24/24 MR#: [id number] Acct: [id number] Name: CHANA DE LA O Rep #:[id number] : 2000 23 From: Clarissa Dawn PCP: Care Physician,No Primary Status :REG ER Location: ED HPI HPI - Female History of Present Illness Chief Complaint: Female C/O Informant: patient Narrative Narrative: Patient is 20-year-old female with history of gastroparesis, IBS, daily marijuana use and chronic abdominal pain presenting with recurrent/worsening abdominal pain, nausea and vomiting. Patient was seen in the ER last night for similar symptoms. At that time she received medication including IV fluids, Zofran and morphine. She states morphine wore off by the time she left and she has continued pain. Her normal coping mechanisms which include heating pads, hip swaying and back massage have not been helping which is what brought her back to the emergency room. Patient states her bowel movements have been regular. She denies any urinary symptoms. She notes that this feels like her prior episodes of her abdominal pain but is more severe than normal. She is duefor her menstrual cycle any day now. There seems to be a correlation with her menstrual cycles. She follows with [facility] but was given referrals as per patient they have refused to do a diagnostic laparoscopy to diagnose endometriosis. Denies any fever or chills. Does note a red rash in the back of her throat but denies any sore throat or other infectious symptoms. No other complaints or concerns at this time. Note that she has put her finger in her mouth to try to get her self to vomit to help with her symptoms. Notes that she has also seen GI in the past for her symptoms. [facility] Medical History Nausea & vomiting IBS (irritable bowel syndrome) Ovarian cyst Marijuana use Wears glasses Gastric reflux Shortness of breath on exertion History of IBS Vapes nicotine containing substance Gastroparesis Vaginal delivery ADHD IBS (irritable bowel syndrome) Encounter for induction of labor Rh negative state in antepartum period Depression affecting IUGR (intrauterine growth restriction) Low iron Marijuana use Syncope Upper abdominal pain Anemia Depression Anxiety Asthma Home Medications ?Medication ?Instructions ?Recorded ?Last Taken ?Type albuterol sulfate 90 mcg/actuation 2 inh inhalation ND N asthma #8.5 05/15/23 06/17/24 Rx aerosol inhaler grams ibuprofen 400 mg tablet (IBU) 800 mg PO Q6H PRN fever or pain 06/17/24 06/17/24 History alprazolam 0.5 mg tablet 0.5 mg PO QHS PRN sleep #20 tabs 07/12/24 Unknown Rx haloperidol 1 mg tablet 1 mg PO QHS #20 tabs 5 Unknown Rx pantoprazole 40 mg tablet,delayed 40 mg PO DAILY #30 t abs 07/12/24 Unknown Rx release ondansetron 4 mg disintegrating 4 mg PO Q8H PRN PRN Na usea #10 tabs 08/23/24 Unknown Rx tablet haloperidol 1 mg tablet 1 mg PO Q8H PRN nausea and 0 08/24/24 Unknown Rx vomiting #20 tabs Allergy/AdvReac Type Severity Reaction Status Date / Time No Known Allergies Allergy Verified 08/24/24 10:51 Family History Father Diabetes Mother Depression Grandmother Breast cancer Surgical History Tubal ligation status History of esophagogastroduodenoscopy (EGD) History of cholecystectomy (~09/2021) H/O dilation and curettage History of adenoidectomy Hx of tonsillectomy Social History household members: significant other Smoking Status: Current some day smoker tobacco type: e-cigarettes alcohol intake: never substance use type: marijuana ROS ROS ED Constitutional Constitutional ED: Denies chills or fever(s) ENT ENT ED: Denies rhinorrhea or sore throat Cardiovascular Cardiovascular: Denies chest pain or palpitations Respiratory/Chest Respiratory/Chest: Denies cough or dyspnea Gastrointestinal Gastrointestinal: Reports abdominal pain, nausea and vomiting; Denies constipation, diarrhea or melena Genitourinary Genitourinary ED: Denies dysuria or hematuria Musculoskeletal Musculoskeletal: Denies arthralgias or neck pain Integumentary Denies rash Neurologic Neurologic: Denies weakness Psychiatric Psychiatric: Reports anxiety EXAM Physical Exam Const Vital Signs: 08/24/24 10:51 08/24/24 13:01 Temperature 98 F Temperature Source Temporal Pulse Rate 84 87 Respiratory Rate 22 H 16 Blood Pressure 132/109 H 132/89 H Blood Pressure Mean 116 103 Pulse Ox 100 99 Oxygen Delivery Method Room Air Room Air Positive well nourished and well developed General Appearance ED: well developed and NAD HEENT Reports moist mucous membranes HEENT Narrative: Scattered petechia and hard palate. No tonsillar exudate or edema present. Normal phonation. Normal midline uvula Eyes PERRL and EOMs intact bilaterally General Eye ED: Negative for pale conjunctiva or scleral icterus Neck supple and no JVD Chest Wall inspection of chest normal Resp normal respiratory effort and clear to auscultation bilaterally Cardio regular rate and regular rhythm GI normal to inspection, nondistended, normoactive bowel sounds and soft to palpation Auscultation: normoactive bowel sounds Palpation: Negative for tender or guarding Back/Spine no CVA tenderness Extremity normal to inspection Neuro oriented x3 Sensorium / Orientation: alert Psych mental status grossly normal Mood & Affect: anxious Skin no rashes or lesions noted and no wounds MDM MDM MDM Narrative Medical decision making narrative: Patient evaluated for recurrent abdominal pain with associated nausea and vomiting. Differential includes acute surgical process (lower suspicion given the cyclic and recurrent nature of this), intra-abdominal infection, cannabis hyperemesis syndrome, endometriosis and cyclic vomiting syndrome as well as flareup of irritable bowel syndrome. Patient given IV Toradol, IV fluids and IV Haldol in the emergency room. On repeat evaluation she is feeling significantly improved. CBC is downtrending and now her white blood cell count is 11.7 (was 15 last night). She does not have a left shift. Lower suspicion for acute infection. Abdomen is soft on exam with no surgical findings. CMP and lipase normal. Urinalysis normal. Urine last night was negative I do not think needs to be repeated as it has been less than 24 hours. Patient be discharged home with a prescription for Haldol and encouraged to abstain from THC in case this is cannabis hyperemesis syndrome. Encouraged continued follow-up with [facility] in case this is endometriosis. She verbalized agreement understand this plan. Discharged home in stable condition. History & Record Review Discussion w/independent historian: Patient and Significant other Lab Data Attestation: I reviewed the patient's lab results. Labs: Laboratory Results - last 24 hr 08/24/24 08/24/24 11:40 12:14 WBC 11.7 H RBC 4.40 Hgb 13.3 Hct 37.9 MCV 86.1 MCH 30.2 MCHC 35.1 RDW Std Deviation 40.3 RDW Coeff of Connor 12.9 Plt Count 283 MPV 10.0 Immature Gran % (Auto) 0.300 Neut % (Auto) 75.0 H Lymph % (Auto) 17.4 L [place] % (Auto) 5.4 Eos % (Auto) 1.3 Baso % (Auto) 0.6 Absolute Neuts (auto) 8.8 H Absolute Lymphs (auto) 2.04 Nucleated RBC % 0 Sodium 139 Potassium 3.8 Chloride 105 Carbon Dioxide 21.1 Anion Gap 12 BUN 7 Creatinine 0.67 L Estim Creat Clear Calc 133.18 Est GFR (MDRD) Non-Af 126 BUN/Creatinine Ratio 10.6 Glucose 86 Calcium 9.0 Total Bilirubin 0.65 AST 20 ALT 11 Alkaline Phosphatase 60 Total Protein 7.4 Albumin 4.3 Globulin 3.1 Albumin/Globulin Ratio 1.4 Lipase 47 Urine Color Yellow Urine Clarity Clear Urine pH 6.5 Ur Specific [place] 1.015 Urine Protein 15 H Urine Glucose (UA) Normal Urine Ketones 5 H Urine Occult Blood Negative Urine Nitrite Negative Urine Bilirubin Negative Urine Urobilinogen Normal Ur Leukocyte Esterase Negative Urine RBC 0 SEEN Urine WBC 0 SEEN Ur Squamous Epith Cells 0 SEEN Urine Bacteria 0 SEEN Urine Mucus 0 SEEN Discharge Plan Triage Chief Complaint: Female C/O ED Provider: Clarissa Marina Dx/Rx/DC Orders Clinical Impression: Abdominal pain, Nausea & vomiting Instructions: ED Abdominal Pain Unkn Cause Fem Prescriptions: New haloperidol 1 mg tablet 1 mg PO Q8H PRN (Reason: nausea and vomiting) Qty: 20 0RF No Action pantoprazole 40 mg tablet,delayed release (DR/EC) 40 mg PO DAILY Qty: 30 1RF alprazolam 0.5 mg tablet 0.5 mg PO QHS PRN (Reason: sleep) Qty: 20 0RF haloperidol 1 mg tablet 1 mg PO QHS Qty: 20 0RF albuterol sulfate 90 mcg/actuation HFA aerosol inhaler 2 inh INHALATION PRN Qty: 8.5 0RF ibuprofen [IBU] 400 mg tablet 800 mg PO Q6H PRN (Reason: fever or pain) ondansetron 4 mg tablet,disintegrating 4 mg PO Q8H PRN PRN (Reason: Nausea) Qty: 10 0RF Primary Care Provider: Care Physician,No Primary Referrals: Stephanie Padron DO [Med Staff - Active Staff] - Friend,DO Rodrick [Med Staff - Active Staff] - Care Physician,No Primary [Primary Care Provider] - Activity Restrictions/Additional Instructions: Your lab work was stable and your white blood cell count had improved. I would recommend abstaining from THC in case this is contributing to your symptoms. Please continue to follow-up with [facility]. Begin a prescription for haloperidol to hopefully help with your nausea vomiting and pain. You may also continue to use the prescribed nausea medicine that you have. Print Language: [place] Ver[place] Disposition Disposition: Home, Self Care What to do if you have Problems For any increased pain, shortness of breath, bleeding, nausea or vomiting, chestpain, or any unexpected problems, contact your Primary Care Provider. Call [facility] ([phone]) or report to the closest Emergency Room. Call 911 if necessary. 08/24/24 1430 <Electronically signed by Clarissa Marina DO> Cosigner Signature (if applicable): CC: No Primary Care Physician ~ Signed [facility] Work Phone: 1(273) 773-972707-17-2025 Discharge summary [facility] Medical Records Department [address] [place] [address] Emergency Department Summary 08/23/24 MR#: [id number] Acct: [id number] Name: CHANA DE LA O Rep #:[id number] : 2000 23 From: Kody sr DO PCP: Care Physician,No Primary Status :REG ER Location: ED HPI History of Present Illness Chief Complaint: Abd Pain Narrative Narrative: Chief complaint and HPI: 23-year-old female presents for evaluation of abdominalpain. History takenby patient as well as medical record. Patient states for the past 3 years she has had chronic abdominal pain. States that it always worsens the week before her menstrual cycle. She is due to start her menstrual cycle in a week. States she has seen [facility] as she is concerned it may be endometriosis however after evaluation they do not feel that this is the source of the patient's pain and declined doing exploratory laparotomy. Patientstates that she does not take Tylenol or Motrin for the pain. She tries warm showers and heating pads with some relief. Patient states that her typical regiment did not help this time which is why she presents to the emergency department. She states it feels like her typical chronic pain. She denies any fever, chills, URI symptoms, shortness of breath, chest pain, nausea, vomiting, dysuria. Has a history of a tubal ligation. Review of systems: See HPI Medications: As listed on the chart Allergies: As listed on the chart PFSH: Per chart Vital signs: As listed on the chart. Reviewed. Physical exam: Gen: A&O x3, NAD Head: Normocephalic, atraumatic Eyes: No sclera icterus, conjunctiva clear ENT: Moist mucous membranes Neck: Trachea midline, No JVD CV: RRR, no murmurs, no peripheral edema Resp: Lungs CTA BL, no w/r/c GI: Abd soft, non-distended, mild tender to palpation diffusely, no r/r/g : No CVA tenderness Musc: Full ROM, no deformity Skin: Warm, dry Neuro: Alert, oriented, grossly intact, sensation intact Psych: Cooperative, appropriate mood and affect [facility] Medical History (Updated 08/23/24 @ 20:[address] Kody العلي, DO) Nausea & vomiting IBS (irritable bowel syndrome) Ovarian cyst Marijuana use Wears glasses Gastric reflux Shortness of breath on exertion History of IBS Vapes nicotine containing substance Gastroparesis Vaginal delivery ADHD IBS (irritable bowel syndrome) Encounter for induction of labor Rh negative state in antepartum period Depression affecting IUGR (intrauterine growth restriction) Low iron Marijuana use Syncope Upper abdominal pain Anemia Depression Anxiety Asthma Home Medications ?Medication ?Instructions ?Recorded ?Last Taken ?Type albuterol sulfate 90 mcg/actuation 2 inh inhalation ND N asthma #8.5 05/15/23 06/17/24 Rx aerosol inhaler grams ibuprofen 400 mg tablet (IBU) 800 mg PO Q6H PRN fever or pain 06/17/24 06/17/24 History alprazolam 0.5 mg tablet 0.5 mg PO QHS PRN sleep #20 tabs 07/12/24 Unknown Rx haloperidol 1 mg tablet 1 mg PO QHS #20 tabs 5 Unknown Rx pantoprazole 40 mg tablet,delayed 40 mg PO DAILY #30 t abs 07/12/24 Unknown Rx release Allergy/AdvReac Type Severity Reaction Status Date / Time No Known Allergies Allergy Verified 08/23/24 17:21 Family History Father Diabetes Mother Depression Grandmother Breast cancer Surgical History Tubal ligation status History of esophagogastroduodenoscopy (EGD) History of cholecystectomy (~09/2021) H/O dilation and curettage History of adenoidectomy Hx of tonsillectomy Social History household members: significant other Smoking Status: Current some day smoker tobacco type: e-cigarettes alcohol intake: never substance use type: marijuana EXAM Physical Exam Const Vital Signs: 08/23/24 17:20 08/23/24 19:20 Temperature 97.6 F L Temperature Source Oral Pulse Rate 87 79 Respiratory Rate 16 15 Blood Pressure 146/99 H Blood Pressure Mean 114 Pulse Ox 99 100 Oxygen Delivery Method Room Air MDM MDM MDM Narrative Medical decision making narrative: 23-year-old female presents for evaluation of abdominal pain. History taken bypatient as well as medical record. Patient states for the past 3 years she has had chronic abdominal pain. States that italways worsens the week before her menstrual cycle. She is due to start her menstrual cycle in a week. States this episode feels like her typical chronic abdominal pain flare. She has triedheating pad, warm showers, massage with little relief. On chart review, patienthas been seen multiple times inemergency department for the same complaint. Differential diagnosis includes but is not limited to dysmenorrhea, endometriosis, IBS, pancreatitis, UTI, ectopic . Given that this feelslike her chronic abdominal pain flare, I do not think any CT abdomen pelvis is needed at this time. NS bolus, Zofran, morphine ordered for symptoms. Laboratory workup ordered including urine. CBC with leukocytosis of 15.9. No anemia. CMP unremarkable. Lipase unremarkable. Serum negative. UA negative for UTI. Positive for ketones. Patient is mildly dehydrated. On reevaluation, patient's pain is improved. She will be given a Zofran prescription for nausea. Given that her symptoms always worse and a week between her period, concern is for endometriosis. Recommend following up with [facility]. She confirmed understanding of plan. Recommended following up with PCP. Return precautions explained. Impression: 1. Abdominal pain with history of chronic abdominal pain 2. Mild dehydration Lab Data Labs: Laboratory Results - last 24 hr 08/23/24 08/23/24 18:40 20:00 WBC 15.9 H RBC 4.43 Hgb 13.3 Hct 38.1 MCV 86.0 MCH 30.0 MCHC 34.9 RDW Std Deviation 39.9 RDW Coeff of Connor 12.8 Plt Count 309 MPV 10.0 Immature Gran % (Auto) 0.500 Neut % (Auto) 83.5 H Lymph % (Auto) 11.8 L [place] % (Auto) 3.5 Eos % (Auto) 0.1 Baso % (Auto) 0.6 Absolute Neuts (auto) 13.3 H Absolute Lymphs (auto) 1.88 Nucleated RBC % 0 Sodium 138 Potassium 4.0 Chloride 101 Carbon Dioxide 23.1 Anion Gap 14 BUN 12 Creatinine 0.68 L Estim Creat Clear Calc 132.75 Est GFR (MDRD) Non-Af 125 BUN/Creatinine Ratio 17.7 Glucose 79 Calcium 9.0 Total Bilirubin 0.55 AST 20 ALT 10 Alkaline Phosphatase 63 Total Protein 7.5 Albumin 4.5 Globulin 3.0 Albumin/Globulin Ratio 1.5 Lipase 22 Serum , Qual NEGATIVE Urine Color Yellow Urine Clarity Sl. Cloudy Urine pH 6.5 Ur Specific [place] 1.015 Urine Protein 30 H Urine Glucose (UA) Normal Urine Ketones 150 A* Urine Occult Blood Negative Urine Nitrite Negative Urine Bilirubin Negative Urine Urobilinogen Normal Ur Leukocyte Esterase Negative Urine RBC 0 SEEN Urine WBC 0-5 SEEN Ur Squamous Epith Cells 0-5 SEEN Urine Bacteria RARE Urine Mucus 1+ Discharge Plan Triage Chief Complaint: Abd Pain ED Provider: Kody العلي Dx/Rx/DC Orders Clinical Impression: Abdominal pain, chronic, generalized Instructions: ED Abdominal Pain Unkn Cause Fem Prescriptions: No Action pantoprazole 40 mg tablet,delayed release (DR/EC) 40 mg PO DAILY Qty: 30 1RF alprazolam 0.5 mg tablet 0.5 mg PO QHS PRN (Reason: sleep) Qty: 20 0RF haloperidol 1 mg tablet 1 mg PO QHS Qty: 20 0RF albuterol sulfate 90 mcg/actuation HFA aerosol inhaler 2 inh INHALATION PRN Qty: 8.5 0RF ibuprofen [IBU] 400 mg tablet 800 mg PO Q6H PRN (Reason: fever or pain) Primary Care Provider: Care Physician,No Primary Referrals: Anil Austin MD [Med Staff - Active Staff] - 3-5 Days Donna Granados MD [Med Staff - Active Staff] - 3-5 Days Print Language: Cape Verdean Disposition Disposition: Home, Self Care What to do if you have Problems For any increased pain, shortness of breath, bleeding, nausea or vomiting, chestpain, or any unexpected problems, contact your Primary Care Provider. Call [facility] ([phone]) or report tothe closest Emergency Room. Call 911 if necessary. 08/23/242052 Cosigner Signature (if applicable): CC: No Primary Care Physician ~ Signed [facility]07-17-2025 Discharge summary Author Kody العلي [facility] Note Date/Time August 23, 2024 8:53 pm [facility] Medical Records Department [address] [place] [address] Emergency Department Summary 08/23/24 MR#: [id number] Acct: [id number] Name: CHANA DE LA O Rep #:[id number] : 2000 From: Kody sr DO PCP: Care Physician,No Primary Status :REG ER Location: ED HPI History of Present Illness Chief Complaint: Abd Pain Narrative Narrative: Chief complaint and HPI: 23-year-old female presents for evaluation of abdominalpain. History taken by patient as well as medical record. Patient states for the past 3 years she has had chronic abdominal pain. States that it always worsens the week before her menstrual cycle. She is due to start her menstrual cycle in a week. States she has seen [facility] as she is concerned it may be endometriosis however after evaluation they do not feel that this is the source of the patient's pain and declined doing exploratory laparotomy. Patientstates that she does not take Tylenol or Motrin for the pain. She tries warm showers and heating pads with some relief. Patient states that her typical regiment did not help this time which is why she presents to the emergency department. She states it feels like her typical chronic pain. She denies any fever, chills, URI symptoms, shortness of breath, chest pain, nausea, vomiting, dysuria. Has a history of a tubal ligation. Review of systems: See HPI Medications: As listed on the chart Allergies: As listed on the chart PFSH: Per chart Vital signs: As listed on the chart. Reviewed. Physical exam: Gen: A&O x3, NAD Head: Normocephalic, atraumatic Eyes: No sclera icterus, conjunctiva clear ENT: Moist mucous membranes Neck: Trachea midline, No JVD CV: RRR, no murmurs, no peripheral edema Resp: Lungs CTA BL, no w/r/c GI: Abd soft, non-distended, mild tender to palpation diffusely, no r/r/g : No CVA tenderness Musc: Full ROM, no deformity Skin: Warm, dry Neuro: Alert, oriented, grossly intact, sensation intact Psych: Cooperative, appropriate mood and affect [facility] Medical History (Updated 08/23/24 @ 20:[address] Kody العلي, DO) Nausea & vomiting IBS (irritable bowel syndrome) Ovarian cyst Marijuana use Wears glasses Gastric reflux Shortness of breath on exertion History of IBS Vapes nicotine containing substance Gastroparesis Vaginal delivery ADHD IBS (irritable bowel syndrome) Encounter for induction of labor Rh negative state in antepartum period Depression affecting IUGR (intrauterine growth restriction) Low iron Marijuana use Syncope Upper abdominal pain Anemia Depression Anxiety Asthma Home Medications ?Medication ?Instructions ?Recorded ?Last Taken ?Type albuterol sulfate 90 mcg/actuation 2 inh inhalation ND N asthma #8.5 05/15/23 06/17/24 Rx aerosol inhaler grams ibuprofen 400 mg tablet (IBU) 800 mg PO Q6H PRN fever or pain 06/17/24 06/17/24 History alprazolam 0.5 mg tablet 0.5 mg PO QHS PRN sleep #20 tabs 07/12/24 Unknown Rx haloperidol 1 mg tablet 1 mg PO QHS #20 tabs 5 Unknown Rx pantoprazole 40 mg tablet,delayed 40 mg PO DAILY #30 t abs 07/12/24 Unknown Rx release Allergy/AdvReac Type Severity Reaction Status Date / Time No Known Allergies Allergy Verified 08/23/24 17:21 Family History Father Diabetes Mother Depression Grandmother Breast cancer Surgical History Tubal ligation status History of esophagogastroduodenoscopy (EGD) History of cholecystectomy (~09/2021) H/O dilation and curettage History of adenoidectomy Hx of tonsillectomy Social History household members: significant other Smoking Status: Current some day smoker tobacco type: e-cigarettes alcohol intake: never substance use type: marijuana EXAM Physical Exam Const Vital Signs: 08/23/24 17:20 08/23/24 19:20 Temperature 97.6 F L Temperature Source Oral Pulse Rate 87 79 Respiratory Rate 16 15 Blood Pressure 146/99 H Blood Pressure Mean 114 Pulse Ox 99 100 Oxygen Delivery Method Room Air MDM MDM MDM Narrative Medical decision making narrative: 23-year-old female presents for evaluation of abdominal pain. History taken bypatient as well as medical record. Patient states for the past 3 years she has had chronic abdominal pain. States that it always worsens the week before her menstrual cycle. She is due to start her menstrual cycle in a week. States this episode feels like her typical chronic abdominal pain flare. She has triedheating pad, warm showers, massage with little relief. On chart review, patienthas been seen multiple times in emergency department for the same complaint. Differential diagnosis includes but is not limited to dysmenorrhea, endometriosis, IBS, pancreatitis, UTI, ectopic . Given that this feelslike her chronic abdominal pain flare, I do not think any CT abdomen pelvis is needed at this time. NS bolus, Zofran, morphine ordered for symptoms. Laboratory workup ordered including urine. CBC with leukocytosis of 15.9. No anemia. CMP unremarkable. Lipase unremarkable. Serum negative. UA negative for UTI. Positive for ketones. Patient is mildly dehydrated. On reevaluation, patient's pain is improved. She will be given a Zofran prescription for nausea. Given that her symptoms always worse and a week between her period, concern is for endometriosis. Recommend following up with [facility]. She confirmed understanding of plan. Recommended following up with PCP. Return precautions explained. Impression: 1. Abdominal pain with history of chronic abdominal pain 2. Mild dehydration Lab Data Labs: Laboratory Results - last 24 hr 08/23/24 08/23/24 18:40 20:00 WBC 15.9 H RBC 4.43 Hgb 13.3 Hct 38.1 MCV 86.0 MCH 30.0 MCHC 34.9 RDW Std Deviation 39.9 RDW Coeff of Connor 12.8 Plt Count 309 MPV 10.0 Immature Gran % (Auto) 0.500 Neut % (Auto) 83.5 H Lymph % (Auto) 11.8 L [place] % (Auto) 3.5 Eos % (Auto) 0.1 Baso % (Auto) 0.6 Absolute Neuts (auto) 13.3 H Absolute Lymphs (auto) 1.88 Nucleated RBC % 0 Sodium 138 Potassium 4.0 Chloride 101 Carbon Dioxide 23.1 Anion Gap 14 BUN 12 Creatinine 0.68 L Estim Creat Clear Calc 132.75 Est GFR (MDRD) Non-Af 125 BUN/Creatinine Ratio 17.7 Glucose 79 Calcium 9.0 Total Bilirubin 0.55 AST 20 ALT 10 Alkaline Phosphatase 63 Total Protein 7.5 Albumin 4.5 Globulin 3.0 Albumin/Globulin Ratio 1.5 Lipase 22 Serum , Qual NEGATIVE Urine Color Yellow Urine Clarity Sl. Cloudy Urine pH 6.5 Ur Specific [place] 1.015 Urine Protein 30 H Urine Glucose (UA) Normal Urine Ketones 150 A* Urine Occult Blood Negative Urine Nitrite Negative Urine Bilirubin Negative Urine Urobilinogen Normal Ur Leukocyte Esterase Negative Urine RBC 0 SEEN Urine WBC 0-5 SEEN Ur Squamous Epith Cells 0-5 SEEN Urine Bacteria RARE Urine Mucus 1+ Discharge Plan Triage Chief Complaint: Abd Pain ED Provider: Kody العلي Dx/Rx/DC Orders Clinical Impression: Abdominal pain, chronic, generalized Instructions: ED Abdominal Pain Unkn Cause Fem Prescriptions: No Action pantoprazole 40 mg tablet,delayed release (DR/EC) 40 mg PO DAILY Qty: 30 1RF alprazolam 0.5 mg tablet 0.5 mg PO QHS PRN (Reason: sleep) Qty: 20 0RF haloperidol 1 mg tablet 1 mg PO QHS Qty: 20 0RF albuterol sulfate 90 mcg/actuation HFA aerosol inhaler 2 inh INHALATION PRN Qty: 8.5 0RF ibuprofen [IBU] 400 mg tablet 800 mg PO Q6H PRN (Reason: fever or pain) Primary Care Provider: Care Physician,No Primary Referrals: Anil Austin MD [Med Staff - Active Staff] - 3-5 Days Donna Granados MD [Med Staff - Active Staff] - 3-5 Days Print Language: [place]an Disposition Disposition: Home, Self Care What to do if you have Problems For any increased pain, shortness of breath, bleeding, nausea or vomiting, chestpain, or any unexpected problems, contact your Primary Care Provider. Call [facility] ([phone]) or report to the closest Emergency Room. Call 911 if necessary. 08/23/242052 <Electronically signed by Kody العلي DO> Cosigner Signature (if applicable): CC: No Primary Care Physician ~ Signed [facility] Work Phone: 1(748) 206-205105-20-2025 NoteHNO ID: [id number] Author: PAUL EUBANKS PA Service: ? Author Type: Physician Data Recovery Planner Type: Progress Notes Filed: 06/26/2024 09:56 Note Text: [facility] Subjective Chana De La O is a 23 year old female. Patient presents with: Chest Congestion: nasal congestion, cough and sob x 1 week HPI Cough: - Dry cough x1 week. - Denies associated chest pain, fever, or nasal congestion. Asthma: - Exacerbation triggered by cough this morning. - Reports SOB and wheezing. - Inhaler use: Ran out of inhaler. Seasonal Allergies: - Takes Benadryl PRN. PAST MEDICAL HISTORY Diagnosis Date ADHD (attention [...] hours as needed for wheezing/shortness of breath. albuterol HFA (PROVENTIL HFA, VENTOLIN HFA) 90 mcg/actuation inhaler Inhale 2 puffs as instructed every 4 hours as needed for wheezing/shortness of breath. FAMILY HISTORY Problem Relation Age of Onset No Known Problems Mother Diabetes Father No Known Problems Sister Breast Cancer Maternal Grandmother Obstructive Sleep Apnea Maternal Grandfather Diabetes Paternal Grandfather No Known Problems Half-brother No Known Problems Daughter Social History Tobacco Use Smoking status: Former Current packs/day: 0.00 Types: Cigarettes Start date: 11/08/2014 Quit date: 11/08/2022 Years since quittin.6 Passive exposure: Past Smokeless tobacco: Never Tobacco comments: vape Vaping Use Vaping status: Some Days Substances: Nicotine Substance Use Topics Alcohol use: Never Drug use: Not Currently Types: Marijuana Review of Systems Constitutional: (-) fever Ears/Nose/Mouth/Throat: (-) congestion Cardiovascular: (-) chest pain Respiratory: (+) cough (dry) + wheezing Nursing note reviewed. Vitals reviewed Objective BP 106/64 Pulse 84 Temp 36.8 ?C (98.2 ?F) Resp 18 Wt 76.9 kg (169 lb 8.5 oz) LMP 04/07/2024 SpO2 99% BMI 28.21 kg/m? Physical Exam General: No acute distress. HEENT: Pharynx without erythema. TM normal bilaterally. CV: Regular rhythm. Resp: Mild expiratory wheezing. No respiratory distress. {1. Mild intermittent asthma with acute exacerbation (HCC) (J45.21) 2. Acute cough (R05.1) - Acute cough for one week triggering asthma exacerbation; no chest pain, but experiencing shortness of breath and wheezing. Cough is dry, without fever or nasal congestion. - Mild wheezing noted on auscultation during expiration; no erythema in throat, no nasal congestion. - Prescribed albuterol inhaler, 2 puffs every 4 hours as needed; prescription sent to [facility] pharmacy. - Advised initiation of daily Zyrtec or Claritin for a couple of weeks to manage seasonal allergies. - Patient declined prednisone treatment. and Recording using [employer] software for draft documentation of the visit was discussed with the patient/authorized underwriting account representative; all questions welcomed and answered. Patient/authorized underwriting account representative agreed to proceed History and Record Review External record(s) reviewed: prior outpatient record. Differential Diagnoses - uri is more likely for the following reason(s): suggested by HANDP - asthma is more likely for the following reason(s): suggested by HANDP - pneumonia is less likely for the following reason(s): HANDP not suggestive Disposition The patient was discharged. OTC Medications were advised: Zyrtec [facility]* Diagnosis Onset Date Resolution Status Admit Date Nausea & vomiting acute June 1:17pm Gastroparesis chronic June 19, 2 025 1:17pm Marijuana use chronic June 19, 2 025 1:17pm [facility] Work Phone: [phone] Evaluation note* Diagnosis Onset Date Resolution Status Admit Date Nausea & vomiting acute June h, 2024 1:17pm Gastroparesis chronic June 19, 025 1:17pm Marijuana use chronic June 19, 2 025 1:17pm Nausea & vomiting acute July h2024 1:00pm Abdominal pain chronic July 12, 2024 1:00pm Marijuana use chronic July 12, 025 1:00pm [facility] Work Phone: 1(233) 972-571005-11-2025 Discharge summary [facility] Medical Records Department [address] [place] [address] Emergency Department Summary 06/17/24 MR#: [id number] Acct: [id number] Name: CHANA DE LA O Rep #:[id number] : 2000 23 From: Davis Dorman MD PCP: Care Physician,No Primary Status :REG ER Location: ED HPI HPI - GI History of Present Illness Chief Complaint: Abd Pain Informant: patient Narrative Narrative: 23-year-old female presenting with severe diffuse abdominal pain and vomiting for the past 4 hours or so this morning. She states she is been having episodesof this pain for the past 3 years since she had a cholecystectomy and D&C. Typically she gets episodes every day, typically in the morning, often associated with vomiting, but taking a hot shower typically relieves the discomfort. She tried that today and did not work, she also tried other coping mechanisms such as back massage, none ofwhich have helped and she is in severe pain. She states every few months she has what she calls a flareup like this where it gets bad. She denies any hematemesis. She been having normal bowel movements and urination except for urinating a lot just this morning. No dysuria or hematuria. No fevers or chills or trouble breathing. [facility] Medical History IBS (irritable bowel syndrome) Ovarian cyst Marijuana use Wears glasses Gastric reflux Shortness of breath on exertion History of IBS Vapes nicotine containing substance Gastroparesis Vaginal delivery ADHD IBS (irritable bowel syndrome) Encounter for induction of labor Rh negative state in antepartum period Depression affecting IUGR (intrauterine growth restriction) Low iron Marijuana use Syncope Upper abdominal pain Nausea & vomiting Anemia Depression Anxiety Asthma Home Medications ?Medication ?Instructions ?Recorded ?Last Taken ?Type albuterol sulfate 90 mcg/actuation 2 inh inhalation ND N asthma #8.5 05/15/23 06/17/24 Rx aerosol inhaler grams ibuprofen 400 mg tablet (IBU) 800 mg PO Q6H PRN fever or pain 06/17/24 06/17/24 History Allergy/AdvReac Type Severity Reaction Status Date / Time No Known Allergies Allergy Verified 06/17/24 11:22 Family History Father Diabetes Mother Depression Grandmother Breast cancer Surgical History Tubal ligation status History of esophagogastroduodenoscopy (EGD) History of cholecystectomy (~09/2021) H/O dilation and curettage History of adenoidectomy Hx of tonsillectomy Social History household members: significant other Smoking Status: Current every day smoker tobacco type: e-cigarettes alcohol intake: never substance use type: marijuana ROS ROS ED Constitutional Constitutional ED: Denies chills or fever(s) Eyes Eyes: Denies change in vision or diplopia ENT ENT ED: Denies rhinorrhea or sore throat Cardiovascular Cardiovascular: Denies chest pain or palpitations Respiratory/Chest Respiratory/Chest: Denies cough or dyspnea Gastrointestinal Gastrointestinal: Reports as per HPI, abdominal pain, nausea and vomiting; Denies diarrhea, hematemesis or melena Genitourinary Genitourinary ED: Reports urinary frequency; Denies dysuria or hematuria Musculoskeletal Musculoskeletal: Denies back pain or neck pain Integumentary Denies abscess or rash Neurologic Neurologic: Denies headache(s), paresthesias or weakness Psychiatric Psychiatric: Denies suicidal thoughts EXAM Physical Exam Const Vital Signs: 06/17/24 11:20 06/17/24 13:19 Temperature 97.6 F L Temperature Source Oral Pulse Rate 91 68 Respiratory Rate 20 H 18 Blood Pressure 119/105 H 132/60 H Blood Pressure Mean 109 84 Pulse Ox 99 98 Oxygen Delivery Method Room Air Positive well nourished and well developed Constitutional Narrative: Hunched over the bed standing on the floor and painful distress General Appearance ED: well developed HEENT Reports moist mucous membranes normocephalic and atraumatic Eyes PERRL and EOMs intact bilaterally Neck full ROM and supple Resp normal respiratory effort and clear to auscultation bilaterally Cardio regular rate, regular rhythm and no murmurs GI non-distended GI Narrative: Diffuse tenderness. No guarding or rebound. Nondistended, hypoactive bowel sounds. Palpation: soft Back/Spine no CVA tenderness General Back: other FROM Extremity normal to inspection General Extremety ED: Negative for edema, pulses abnormal or tenderness General Extremity: Negative for edema or pulses abnormal Neuro oriented x3, CN's II-XII intact bilaterally and no sensory deficits noted Sensorium / Orientation: awake and alert Motor Exam: strength 5/5 throughout Psych Mood & Affect: anxious and tearful Skin no rashes or lesions noted and no wounds MDM MDM MDM Narrative Medical decision making narrative: Patient was treated with IV Reglan, morphine. She is much better on reevaluation lying comfortably with her legs crossed speaking with family members on the phone. Her workup is normal. is negative ruling out ectopic, urinalysis negative for infection, her counts are normal, liver enzymesnegative, lipase negative ruling out pancreatitis, and on my activities officer CT scanshows no acute abnormality. Radiology in agreement, saying that there is multiple areas of small bowel inflammation which is nonspecific, but no bowel obstruction. I agree with this report. Patient is doing well and stable for discharge and close outpatient follow-up. Lab Data Attestation: I reviewed the patient's lab results. Labs: Laboratory Results - last 24 hr 06/17/24 06/17/24 11:50 11:55 WBC 10.4 RBC 4.61 Hgb 14.2 Hct 40.1 MCV 87.0 MCH 30.8 MCHC 35.4 RDW Std Deviation 39.2 RDW Coeff of Connor 12.2 Plt Count 302 MPV 10.3 Immature Gran % (Auto) 0.500 Neut % (Auto) 75.4 H Lymph % (Auto) 19.0 [place] % (Auto) 3.4 Eos % (Auto) 1.0 Baso % (Auto) 0.7 Absolute Neuts (auto) 7.8 H Absolute Lymphs (auto) 1.97 Nucleated RBC % 0 Sodium 140 Potassium 4.1 Chloride 106 Carbon Dioxide 22.1 Anion Gap 12 BUN 6 Creatinine 0.66 L Estim Creat Clear Calc 135.59 Est GFR (MDRD) Non-Af 126 BUN/Creatinine Ratio 9.2 L Glucose 99 Calcium 8.8 Total Bilirubin 0.30 AST 15 ALT 8 Alkaline Phosphatase 69 Total Protein 7.7 Albumin 4.5 Globulin 3.2 Albumin/Globulin Ratio 1.4 Lipase 23 Serum , Qual NEGATIVE Urine Color Yellow Urine Clarity Clear Urine pH 6.0 Ur Specific [place] 1.020 Urine Protein 15 H Urine Glucose (UA) Normal Urine Ketones Negative Urine Occult Blood Negative Urine Nitrite Negative Urine Bilirubin Negative Urine Urobilinogen Normal Ur Leukocyte Esterase Negative Urine RBC 0 SEEN Urine WBC 0 SEEN Ur Squamous Epith Cells 0-5 SEEN Urine Bacteria 0 SEEN Urine Mucus 0 SEEN Radiography Diagnostic Testing: Clinical Impression(s) from Imaging Studies Abdomen/Pelvis CT 06/17/24 11:30 IMPRESSION: Scattered inflammation of the small bowel with fluid may reflect enteritis. No bowel obstruction. Reading Location: [facility] Discharge Plan Triage Chief Complaint: Abd Pain ED Provider: Davis Dorman Dx/Rx/DC Orders Clinical Impression: Diffuse abdominal pain Instructions: Abdominal Pain Prescriptions: No Action albuterol sulfate 90 mcg/actuation HFA aerosol inhaler 2 inh INHALATION PRN Qty: 8.5 0RF ibuprofen [IBU] 400 mg tablet 800 mg PO Q6H PRN (Reason: fever or pain) Primary Care Provider: Care Physician,Wendy Primary Referrals: your doctor or drum sander [Other] Print Language: [place]an Disposition Disposition: Home, Self Care What to do if you have Problems For any increased pain, shortness of breath, bleeding, nausea or vomiting, chest pain, or any unexpected problems, contact your Primary Care Provider. Call [facility] ([phone]) or report to the closest Emergency Room. Call 911 if necessary. 06/17/24 1335 Cosigner Signature (if applicable): CC: No Primary Care Physician ~ Signed [facility]05-11-2025 Radiology Diagnostic study note [facility] Imaging Services [address] [place], [place] [id number] Abdomen/Pelvis W IV Cont ONLY MR#: [id number] Acct: [id number] Name: CHANA DE LA O Rep #: [id number] : 2000 F 23 From: Kasie Israel MD PCP: Care Physician,No Primary Status: REG ER Study:Abdomen/Pelvis W IV Cont ONLY Date of E xam: 06/17/24 Exam# [id number] Ordering Dr: France Dorman MD PROCEDURE: ABDOMEN/PELVIS W IV CONT ONLY 06/17/2024 REASON FOR EXAM: DIFFUSE ABD PAIN, N/V TECHNIQUE: Abdomen and pelvis CT with intravenous contrast. Coronal and Sagittal reconstruction series were provided. CONTRAST: 100 mL of Isovue 370 One or more dose reduction techniques were used (e.g., Automated exposure control, adjustment of the mA and/or kV according to patient size, use of iterative reconstruction technique. RADIATION DOSE SUMMARY: DLP: 855 mGycm COMPARISON: 12/05/23 FINDINGS: Limited sections of the lung bases demonstrate no focal pulmonary mass. The liver, spleen, pancreas, and both kidneys demonstrate no acute findings. Nodular thickening of the left adrenal gland; the right adrenal gland is unremarkable. The gallbladder is surgically absent. The stomach is unremarkable. The aorta and IVC demonstrate no acute findings. Scattered inflammation of the small bowel with fluid may reflect enteritis. No bowel obstruction. The appendix is not clearly identified, although there are no secondary signs ofappendicitis. No bowel obstruction. The pelvic structures are intact. Grossly stable 3.2 x 3.3 cm fat-containing mass in the right ovary likely reflecting a dermoid cyst. The urinary bladder is partially distended. Visualized osseous structures demonstrate no acute abnormality. CT/Abdomen/Pelvis W IV Cont ONLY IMPRESSION: Scattered inflammation of the small bowel with fluid may reflect enteritis. No bowel obstruction. Reading Location: [facility] CC: Dr. Davis Dorman MD; No Primary Care Physician ~ Handle Turner: Signed [facility]05-01-2025 Hospital Discharge instructionsAdditional Instructions Your lab work was stable and your white blood cell count had improved. I would recommend abstaining from THC in case this is contributing to your symptoms. Please continue to follow-up with [facility]PA[facility] CHECK[facility]. Begin a prescription for haloperidol to hopefully help with your nausea vomiting and pain. You may also continue to use the prescribed nausea medicine that you have.[facility] Work Phone: 1(166) 104-907103-28-2025 NoteHNO ID: [id number] Author: SVETLANA SCHAEFFER APRN.SENIOR OCCUPATIONAL THERAPIST Service: ? Author Type: Nurse Practitioner Type: Progress Notes Filed: 05/04/2024 07:43 Note Text: Pulp Plant Supervisor Present. Declines Patient presents with desire for STD screening. HPI Chana De La O presents for STD screening. New partner as of January. Denies any new symptoms. She also reported that she continues to struggle with chronic pelvic pain. She reports that this has been present for 3 years now. She is concerned that she has endometriosis and would like further evaluation. Has dermoid cyst to right ovary. PMH, medication, and allergies have been reviewed and updated as appropriate. PAST MEDICAL HISTORY Diagnosis Date ADHD (attention deficit hyperactivity disorder) Anemia Asthma Gastroparesis IBS (irritable bowel syndrome) PCOS (polycystic ovarian syndrome) Placental abruption in third trimester 12/27/2022 Reactive airway disease inhaler use with URIs Current Outpatient Medications Medication Sig boric acid 600 mg vaginal suppository Use 1 Suppository vaginally once daily. Unwrap and insert as directed albuterol HFA (PROVENTIL HFA, VENTOLIN HFA) 90 mcg/actuation inhaler Inhale 2 Puffs as instructed every 4 hours as needed for wheezing/shortness of breath. fluticasone (FLONASE) 50 mcg/actuation nasal spray Use 2 Sprays in each nostril once daily. Rinse mouth after use. cetirizine (ZYRTEC) 10 mg tablet Take 1 tablet by mouth once daily. ferrous sulfate 325 mg (65 mg iron) tablet Take by mouth. No current facility-administered medications for this visit. Participation of a fellow, resident, medical student, or advanced practice provider student in performing the sensitive examination was discussed with the patient or authorized underwriting account representative. The patient or authorized underwriting account representative has agreed to proceed with the sensitive examination. BP 112/72 Wt 75.3 kg (166 lb) LMP 04/07/2024 BMI 27.62 kg/m? PHYSICAL EXAM GENERAL: pleasant, female in no apparent distress HEENT: Normocephalic, atraumatic, mucus membranes moist, and no lesions CHEST: Normal inspiratory effort PELVIC: external genitalia normal, normal Bartholin's glands, urethra, [place]'s glands, + lesion that appears consistent with ingrown hair to right groin and resolving, no cervical lesions, good vaginal support, physiologic discharge present, normal appearing perineal body and perianal region BIMANUAL: uterus normal size, shape and consistency, no adnexal masses, and non-tender RECTOVAGINAL: deferred. NEURO: alert and oriented x3,exam grossly non-focal EXTREMITIES: normal ASSESSMENT/PLAN: 1. Screening for STD (sexually transmitted disease) - ICD9: V74.5, ICD10: Z11.3 (primary diagnosis) - SYPHILIS TREPONEMAL W/REFLEX - HIV 1/2 COMBO WITH REFLEX TO DIFFERENTIATION - GONORRHEA/CHLAMYDIA NAAT - HEPATITIS C VIRUS (HCV) RNA, QUANTITATIVE PCR, PLASMA/SERUM - HERPES SIMPLEX TYPE 1 AND 2 IG (Discussed limitations of this test) - TRICHOMONAS VAGINALIS NAAT 2. Chronic pelvic pain in female - ICD9: 625.9, 338.29, ICD10: R10.2, G89.29 - ENDOMETRIOSIS U/S [facility] - CONSULT TO MINIMALLY INVASIVE GYNECOLOGIC SURGERY 3. Dermoid cyst of ovary, right - ICD9: 220, ICD10: D27.0 - CONSULT TO MINIMALLY INVASIVE GYNECOLOGIC SURGERY Svetlana Schaeffer APRN.SB Medical Decision Making: Problems: Minimal: Self-limited or minor problem Moderate: 2+ stable chronic illnesses Data: Unique test(s) ordered: 3+ Risk: Low: Low risk from testing/treatment Medical Decision Making Level: [facility] History of Present illness Narrative* Svetlana Schaeffer APRN.SENIOR OCCUPATIONAL THERAPIST - 05/04/2024 7:19 AM EDT Pulp Plant Supervisor Present. Declines Patient presents with desire for STD screening. HPI Chana De La O presents for STD screening. New partner as of January. Denies any new symptoms. She also reported that she continues to struggle with chronic pelvic pain. She reports that this has beenpresent for 3 years now. She is concerned that she has endometriosis and would like further evaluation. Has dermoid cyst to right ovary. PMH, medication, and allergies have been reviewed and updated as appropriate. PAST MEDICAL HISTORY Diagnosis Date ADHD (attention deficit hyperactivity disorder) Anemia Asthma Gastroparesis IBS (irritable bowel syndrome) PCOS (polycystic ovarian syndrome) Placental abruption in third trimester 12/27/2022 Reactive airway disease inhaler use with URIs Current Outpatient Medications Medication Sig boric acid 600 mg vaginal suppository Use 1 Suppository vaginally once daily. Unwrap and insert as directed albuterol HFA (PROVENTIL HFA, VENTOLIN HFA) 90 mcg/actuation inhaler Inhale 2 Puffs as instructed every 4 hours as needed for wheezing/shortness of breath. fluticasone (FLONASE) 50 mcg/actuation nasal spray Use 2 Sprays in each nostril once daily. Rinse mouth after use. cetirizine (ZYRTEC) 10 mg tablet Take 1 tablet by mouth once daily. ferrous sulfate 325 mg (65 mg iron) tablet Take by mouth. No current facility-administered medications for this visit. Participation of a fellow, resident, medical student, or advanced practice provider student in performing the sensitive examination was discussed with the patient or authorized underwriting account representative. The patient or authorized underwriting account representative has agreed to proceed with the sensitive examination. BP 112/72 Wt 75.3 kg (166 lb) LMP 04/07/2024 BMI 27.62 kg/m PHYSICAL EXAM GENERAL: pleasant, female in no apparent distress HEENT: Normocephalic, atraumatic, mucus membranes moist, and no lesions CHEST: Normal inspiratory effort PELVIC: external genitalia normal, normal Bartholin's glands, urethra, [place]'s glands, + lesion that appears consistent with ingrown hair to right groin and resolving, no cervical lesions, good vaginal support, physiologic discharge present, normal appearing perineal body and perianal region BIMANUAL: uterus normal size, shape and consistency, no adnexal masses, and non-tender RECTOVAGINAL: deferred. NEURO: alert and oriented x3,exam grossly non-focal EXTREMITIES: normal ASSESSMENT/PLAN: 1. Screening for STD (sexually transmitted disease) - ICD9: V74.5, ICD10: Z11.3 (primary diagnosis) - SYPHILIS TREPONEMAL W/REFLEX - HIV 1/2 COMBO WITH REFLEX TO DIFFERENTIATION - GONORRHEA/CHLAMYDIA NAAT - HEPATITIS C VIRUS (HCV) RNA, QUANTITATIVE PCR, PLASMA/SERUM - HERPES SIMPLEX TYPE 1 AND 2 IG (Discussed limitations of this test) - TRICHOMONAS VAGINALIS NAAT 2. Chronic pelvic pain in female - ICD9: 625.9, 338.29, ICD10: R10.2, G89.29 - ENDOMETRIOSIS U/S I - CONSULT TO MINIMALLY INVASIVE GYNECOLOGIC SURGERY 3. Dermoid cyst of ovary, right - ICD9: 220, ICD10: D27.0 - CONSULT TO MINIMALLY INVASIVE GYNECOLOGIC SURGERY Svetlana Schaeffer APRN.CNP Medical Decision Making: Problems: Minimal: Self-limited or minor problem Moderate: 2+ stable chronic illnesses Data: Unique test(s) ordered: 3+ Risk: Low: Low risk from testing/treatment Medical Decision Making Level: 4 - Moderate [facility] Telephone encounter Note * Telephone Encounter - Chani Hernandez MD - 12/30/2023 2:39 PM EST Recommend that she consult with pelvic pain clinic for another opinion. Order was placed by RR [facility] Work Phone: 1(691) 370-149211-22-2024 Miscellaneous Notes* Telephone Encounter - Chani Hernandez MD - 12/30/2023 2:39 PM EST Recommend that she consult with pelvic pain clinic for another opinion. Order was placed by RR * Telephone Encounter - Stephanie Boateng RN - 12/30/2023 9:17 AM EST Patient called the office. Asking for exploratory surgery to look for endometriosis and then to remove it if it's found. Advised that this is not a typical practice. Patient asking where she should go to look for endometriosis. Stephanie Boateng RN [facility] Telephone encounter Note * Telephone Encounter - Stephanie Boateng RN - 12/30/2023 9:17 AM EST Patient called the office. Asking for exploratory surgery to look for endometriosis and then to remove it if it's found. Advised that this is not a typical practice. Patient asking where she should go to look for endometriosis. Stephanie Boateng, RN [facility]11-21-2024 NoteHNO ID: [id number] Author: CHANI HERNANDEZ MD Service: ? Author Type: Physician Type: Progress Notes Filed: 12/29/2023 13:41 Note Text: Chana De La O is a 23 year old female who presents to discuss hysterectomy. HPI: She has had chronic pain for 2.5 years. She reports epigastric pain that radiates into her lower pelvis. She also has pain at times wrapping around into her back. The pain is constantly and daily. Hot showers and heating pads can improve the pain. She also smokes marijuana to control the pain and get going in the morning. She reports history of PCOS with irregular menstrual cycles. Not on hormonal contraception. Had tubal sterilization. Having nausea and vomiting daily. History of IBS. Sees Dr. Kowalski with GI at [facility]. H/o dermoid cysts on pelvic ultrasound. Had recent visit with Dr. Granados regarding the pelvic pain. Strongly desires a hysterectomy. 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 Unwrap and insert as directed albuterol HFA (PROVENTIL HFA, VENTOLIN HFA) 90 mcg/actuation inhaler Inhale 2 Puffs as instructed every 4 hours as needed for wheezing/shortness of breath. fluticasone (FLONASE) 50 mcg/actuation nasal spray Use 2 Sprays in each nostril once daily. Rinse mouth after use. cetirizine (ZYRTEC) 10 mg tablet Take 1 tablet by mouth once daily. ferrous sulfate 325 mg (65 mg iron) tablet Take by mouth. No current facility-administered medications for this visit. Allergies As of Date: 12/29/2023 Allergen Noted Reaction SEASONAL ALLERGIES 11/30/2017 Cough, Other: See Comments, and Itching Fully Assessed 12/29/2023 REVIEW OF SYSTEMS Abdomen: Diffuse abdominal pain with nausea, vomiting, diarrhea and constipation Bladder: No dysuria, gross hematuria, urinary frequency, urinary urgency, or incontinence. Expanded ROS: N/A Allergies and current medication updated:Yes SENSITIVE EXAM: Sensitive exam not performed. EXAM: BP 120/70 Wt 185 lb (83.9kg) LMP 12/14/2023 GENERAL: pleasant, female in no apparent distress HEENT: Normocephalic and atraumatic NECK: full range of motion DERMATOLOGY: Normal, without lesions, non-icteric, and non-hirsute BREAST: deferred CHEST: Normal inspiratory effort ABDOMEN: soft, no masses, and diffusely tender across entire abdomen, non distended, no rebounding, no guarding, no rigidity PELVIC: deferred BIMANUAL: deferred NEURO: exam grossly non-focal EXTREMITIES: normal ASSESSMENT AND PLAN: Assessment AND Plan Chronic pelvic pain in female Dermoid cyst Reviewed pelvic ultrasound findings and dermoid cysts. Questions answered. Patient comfortable appearing today and abdominal exam non acute. Was referred to pelvic pain clinic. Discussed importance of ovarian conservation at her age. Patient became argumentative as she strongly desires a hysterectomy. Discussed risks with a hysterectomy and that there is no guarantee it will improve her pain. Discussed an ovarian cystectomy with possible oophorectomy. Patient wants a hysterectomy with bilateral oophorectomy. Discussed option for second opinion. Chani Hernandez DO I spent 20 minutes in the visit, with more than 50% of the total [id number] time of the visit in counseling / coordination of care.[facility]11[facility] History of Present illness Narrative* Chani Hernandez MD - 12/29/2023 11:25 AM EST Chana De La O is a 23 year old female who presents to discuss hysterectomy. HPI: She has had chronic pain for 2.5 years. She reports epigastric pain that radiates into her lower pelvis. She also has pain at times wrapping around into her back. The pain is constantly and daily. Hot showers and heating pads can improve the pain. She also smokes marijuana to control the pain and get going in the morning. She reports history of PCOS with irregular menstrual cycles. Not on hormonal contraception. Had tubal sterilization. Having nausea and vomiting daily. History of IBS. Sees Dr. Kowalski with GI at [facility]. H/o dermoid cysts on pelvic ultrasound. Had recent visit with Dr. Granados regarding the pelvic pain. Strongly desires a hysterectomy. 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 Unwrap and insert as directed albuterol HFA (PROVENTIL HFA, VENTOLIN HFA) 90 mcg/actuation inhaler Inhale 2 Puffs as instructed every 4 hours as needed for wheezing/shortness of breath. fluticasone (FLONASE) 50 mcg/actuation nasal spray Use 2 Sprays in each nostril once daily. Rinse mouth after use. cetirizine (ZYRTEC) 10 mg tablet Take 1 tablet by mouth once daily. ferrous sulfate 325 mg (65 mg iron) tablet Take by mouth. No current facility-administered medications for this visit. Allergies As of Date: 12/29/2023 Allergen Noted Reaction SEASONAL ALLERGIES 11/30/2017 Cough, Other: See Comments, and Itching Fully Assessed 12/29/2023 REVIEW OF SYSTEMS Abdomen: Diffuse abdominal pain with nausea, vomiting, diarrhea and constipation Bladder: No dysuria, gross hematuria, urinary frequency, urinary urgency, or incontinence. Expanded ROS: N/A Allergies and current medication updated:Yes SENSITIVE EXAM: Sensitive exam not performed. EXAM: BP 120/70 Wt 185 lb (83.9kg) LMP 12/14/2023 GENERAL: pleasant, female in no apparent distress HEENT: Normocephalic and atraumatic NECK: full range of motion DERMATOLOGY: Normal, without lesions, non-icteric, and non-hirsute BREAST: deferred CHEST: Normal inspiratory effort ABDOMEN: soft, no masses, and diffusely tender across entire abdomen, non distended, no rebounding,no guarding, no rigidity PELVIC: deferred BIMANUAL: deferred NEURO: exam grossly non-focal EXTREMITIES: normal ASSESSMENT AND PLAN: Assessment & Plan Chronic pelvic pain in female Dermoid cyst Reviewed pelvic ultrasound findings and dermoid cysts. Questions answered. Patient comfortable appearing today and abdominal exam non acute. Was referred to pelvic pain clinic. Discussed importance of ovarian conservation at her age. Patient became argumentative as she strongly desires a hysterectomy. Discussed risks with a hysterectomy and that there is no guarantee it will improve her pain. Discussed an ovarian cystectomy with possible oophorectomy. Patient wants a hysterectomy with bilateraloophorectomy. Discussed option for second opinion. Chani Hernandez, I spent 20 minutes in the visit, with more than 50% of the total [id number] time of the visit in counseling / coordination of care. [facility] Telephone encounter Note * Telephone Encounter - Chani Hernandez MD - 12/26/2023 11:02 AM EST Agree with ER visit for severe pain, and otherwise follow up this week in office thanks [facility] Work Phone: 1(372) 775-101611-18-2024 Miscellaneous Notes* Telephone Encounter - Chani Hernandez MD - 12/26/2023 11:02 AM EST Agree with ER visit for severe pain, and otherwise follow up this week in office thanks * Telephone Encounter - Stephanie Boateng RN - 12/26/2023 10:00 AM EST Patient called asking to move up her appointment with SW due to her pain. Patient tearful on the phone. Reports her pain a 10 out of 10. Advised to go to ER for severity of her pain. Patient became upset, stating that the ER won't do anything. Advised that we don't have pain medication here to helprelieve her pain. Moved up her appointment with SW from 12/29 to 12/28. She has not contacted pelvic pain clinic. FYI. Stephanie Boateng RN documented in [facility] encounterKe[facility]11-[facility]24 Telephone encounter Note * Telephone Encounter - Stephanie Boateng RN - 12/26/2023 10:00 AM EST Patient called asking to move up her appointment with SW due to her pain. Patient tearful on the phone. Reports her pain a 10 out of 10. Advised to go to ER for severity of her pain. Patient became upset, stating that the ER won't do anything. Advised that we don't have pain medication here to helprelieve her pain. Moved up her appointment with SW from 12/29 to 12/28. She has not contacted pelvic pain clinic. FYI. Stephanie Boateng RN [facility]11-07-2024 Telephone encounter Note* Telephone Encounter - Chani Hernandez MD - 12/15/2023 9:12 AM EST Agree with ER visit if vomiting blood. Reviewed chart and pt recently saw RR for evaluation and hadpelvic US at that time [facility] Work Phone: 1(925) 656-295011-07-2024 Miscellaneous Notes* Telephone Encounter - Chani Hernandez MD - 12/15/2023 9:12 AM EST Agree with ER visit if vomiting blood. Reviewed chart and pt recently saw RR for evaluation and hadpelvic US at that time * Telephone Encounter - Stephanie Boateng RN - 12/15/2023 9:04 AM EST Patient last seen in office on 12/12 for chronic pelvic pain. Called today to report that her pain caused her to vomit blood. Uterine pain rate of 6-7. Patient reports this is a manageable pain level for her. Typically, the pain is more intense. Patient has tried NSAID, Tylenol, heating pad and hot shower with little relief. Patient again said this is a manageable pain level for her. She has upcoming appointment with SW on 12/18 to discuss surgical options. Advised to go to ER if she is vomiting blood. Patient voiced agreement. CAITLYN Boateng RN documented in [facility]11-[facility]-2024 Telephone encounter Note * Telephone Encounter - Stephanie Boateng RN - 12/15/2023 9:04 AM EST Patient last seen in office on 12/12 for chronic pelvic pain. Called today to report that her pain caused her to vomit blood. Uterine pain rate of 6-7. Patient reports this is a manageable pain level for her. Typically, the pain is more intense. Patient has tried NSAID, Tylenol, heating pad and hot shower with little relief. Patient again said this is a manageable pain level for her. She has upcoming appointment with on 12/18 to discuss surgical options. Advised to go to ER if she is vomiting blood. Patient voiced agreement. CAITLYN Boateng RN [facility]11-06-2024 Telephone encounter Note* Telephone Encounter - Kendra Palmer RN - 12/14/2023 9:19 AM EST [employer] message sent to Pt. Kendra Palmer RN [facility]11-06-2024 Miscellaneous Notes* Telephone Encounter - Kendra Palmer RN - 12/14/2023 9:19 AM EST Mychart message sent to Pt. Kendra Palmer RN * Telephone Encounter - Davi Gomez MA - 12/13/2023 9:36 AM EST Received PA request for patients boric acid suppository, submitted PA on 12/08. PA was denied as it is a plan exclusion. Davi Gomez MA documented in this encounterKe[facility]11-[facility]-2024 NoteHNO ID: [id number] Author: BERYL VEGA MD Service: ? Author Type: Physician Type: Progress Notes Filed: 12/13/2023 23:55 Note Text: The patient presents for requested ultrasound. Full report available in the Imaging tab in [employer]. [facility] History of Present illness Narrative* Beryl Vega MD - 12/13/2023 11:36 PM EST The patient presents for requested ultrasound. Full report available in the Imaging tab in [employer]. Beryl Vega MD documented in this encounterKe[facility]11-[facility]-2024 Telephone encounter Note * Telephone Encounter - Hien Correa - 12/13/2023 4:08 PM EST Please contact patient to schedule [facility]11-05-2024 Miscellaneous Notes* Telephone Encounter - Hien Correa - 12/13/2023 4:08 PM EST Please contact patient to schedule documented in this encounterAngela Ville [address]-05-2024 NoteHNO ID: [id number] Author: PATRICIA WHITEHEAD APRN.SB Service: ? Author Type: Nurse Practitioner Type: Progress Notes Filed: 12/13/2023 16:11 Note Text: This note was created using [employer]. Subjective Chana De La O is a 22 year old female. HPI by patient: Chana De La O is a 22 year old presenting to the office with the complaint of viral symptoms. Started approximately 2 days ago. Associated symptoms include sore throat, headache, and chills. Denies fever, cough, and congestion. Covid Immunization Dates Overdue - Covid-19 Vaccine ( season) Never done No completion, postpone, frequency change, or communication history exists for this topic. Sick contacts: none. Smoking history/second hand smoke: none. OTC not helping. No antibiotic use in the last 60 days. ALLERGIES Seasonal Allergies Cough, Other: See Comments, Itching Family History Reviewed Including Cardiac Diseases, Psychiatric Diseases, AND Substance Abuse Problem: No Known Problems Relation: Mother Age of Onset: (Not Specified) Problem: Diabetes Relation: Father Age of Onset: (Not Specified) Problem: No Known Problems Relation: Sister Age of Onset: (Not Specified) Problem: Breast Cancer Relation: Maternal Grandmother Age of Onset: (Not Specified) Problem: Obstructive Sleep Apnea Relation: Maternal Grandfather Age of Onset: (Not Specified) Problem: Diabetes Relation: Paternal Grandfather Age of Onset: (Not Specified) Problem: No Known Problems Relation: Half-brother Age of Onset: (Not Specified) Problem: No Known Problems Relation: Daughter Age of Onset: (Not Specified) Social History Tobacco Use Smoking status: Former Packs/day: 0.00 Types: Cigarettes Start date: 11/08/2014 Quit date: 11/08/2022 Years since quittin.0 Passive exposure: Past Smokeless tobacco: Never Tobacco comments: vape Vaping Use Vaping status: Some Days Substances: Nicotine Alcohol use: Never Drug use: Not Currently Types: Marijuana Active Ambulatory Problems Gastroparesis Date Noted: 11/15/2022 History of depression Date Noted: 11/15/2022 Engages in nicotine containing substance vaping Date Noted: 11/15/2022 History of marijuana use Date Noted: 11/15/2022 Rh negative state in antepartum period Date Noted: 11/22/2022 Vaginal bleeding Date Noted: 12/23/2022 Mild intermittent asthma Date Noted: 12/23/2022 Attention deficit hyperactivity disorder (ADHD) Date Noted: 12/28/2022 Cannabis use disorder, mild, abuse Date Noted: 07/14/2022 PCOS (polycystic ovarian syndrome) Date Noted: 08/24/2023 Dermoid cyst of ovary, right Date Noted: 08/25/2023 Resolved Ambulatory Problems with care elsewhere, antepartum Date Noted: 11/15/2022 Nausea and vomiting Date Noted: 06/18/2022 34 weeks gestation of Date Noted: 12/23/2022 Poor growth affecting management of mother in third trimester Date Noted: 12/23/2022 Depression affecting in third trimester, antepartum Date Noted: 12/24/2022 Placental abruption in third trimester Date Noted: 12/27/2022 Intrauterine growth restriction (IUGR) affecting care of mother, third trimester, single gestation Date Noted: 06/10/2021 growth restriction Date Noted: 12/28/2022 Hyperemesis gravidarum Date Noted: 07/14/2022 Past Medical History: No date: ADHD (attention deficit hyperactivity disorder) No date: Anemia No date: Asthma No date: IBS (irritable bowel syndrome) No date: Reactive airway disease Review of Systems Constitutional: Negative. HENT: Positive for sore throat. Eyes: Negative. Respiratory: Negative. Cardiovascular: Negative. Gastrointestinal: Negative. Endocrine: Negative. Genitourinary: Negative. Musculoskeletal: Negative. Skin: Negative. Neurological: Positive for headaches. Hematological: Negative. Objective BP 142/90 Pulse 102 Temp 37.3 ?C (99.1 ?F) Resp 16 Wt 87.4 kg (192 lb 10.9 oz) LMP 11/17/2023 (Exact Date) SpO2 99% BMI 32.06 kg/m? Physical Exam Vitals reviewed. Constitutional: General: She is not in acute distress. Appearance: She is not ill-appearing, toxic-appearing or diaphoretic. HENT: Head: Normocephalic and atraumatic. Right Ear: Tympanic membrane, ear canal and external ear normal. Left Ear: Tympanic membrane, ear canal and external ear normal. Nose: Nose normal. Right Sinus: No maxillary sinus tenderness or frontal sinus tenderness. Left Sinus: No maxillary sinus tenderness or frontal sinus tenderness. Mouth/Throat: Mouth: Mucous membranes are moist. Pharynx: Oropharynx is clear. Posterior oropharyngeal erythema present. No oropharyngeal exudate. Cardiovascular: Rate and Rhythm: Normal rate and regular rhythm. Pulmonary: Effort: Pulmonary effort is normal. Breath sounds: Normal breath sounds. Lymphadenopathy: Head: Right side of head: No submandibular or tonsillar (more content not included)... [facility]11-05-2024 History of Present illness Narrative* Patricia Whitehead APRN.SENIOR OCCUPATIONAL THERAPIST - 12/13/2023 3:55 PM EST This note was created using [employer]. Subjective Chana De La O is a 22 year old female. HPI by patient: Chana De La O is a 22 year old presenting to the office with the complaint of viral symptoms. Started approximately 2 days ago. Associated symptoms include sore throat, headache, and chills. Denies fever, cough, and congestion. Covid Immunization Dates Overdue - Covid-19 Vaccine () Never done No completion, postpone, frequency change, or communication history exists for this topic. Sick contacts: none. Smoking history/second hand smoke: none. OTC not helping. No antibiotic use in the last 60 days. ALLERGIES Seasonal Allergies Cough, Other: See Comments, Itching Family History Reviewed Including Cardiac Diseases, Psychiatric Diseases, & Substance Abuse Problem: No Known Problems Relation: Mother Age of Onset: (Not Specified) Problem: Diabetes Relation: Father Age of Onset: (Not Specified) Problem: No Known Problems Relation: Sister Age of Onset: (Not Specified) Problem: Breast Cancer Relation: Maternal Grandmother Age of Onset: (Not Specified) Problem: Obstructive Sleep Apnea Relation: Maternal Grandfather Age of Onset: (Not Specified) Problem: Diabetes Relation: Paternal Grandfather Age of Onset: (Not Specified) Problem: No Known Problems Relation: Half-brother Age of Onset: (Not Specified) Problem: No Known Problems Relation: Daughter Age of Onset: (Not Specified) Social History Tobacco Use Smoking status: Former Packs/day: 0.00 Types: Cigarettes Start date: 11/08/2014 Quit date: 11/08/2022 Years since quittin.0 Passive exposure: Past Smokeless tobacco: Never Tobacco comments: vape Vaping Use Vaping status: Some Days Substances: Nicotine Alcohol use: Never Drug use: Not Currently Types: Marijuana Active Ambulatory Problems Gastroparesis Date Noted: 11/15/2022 History of depression Date Noted: 11/15/2022 Engages in nicotine containing substance vaping Date Noted: 11/15/2022 History of marijuana use Date Noted: 11/15/2022 Rh negative state in antepartum period Date Noted: 11/22/2022 Vaginal bleeding Date Noted: 12/23/2022 Mild intermittent asthma Date Noted: 12/23/2022 Attention deficit hyperactivity disorder (ADHD) Date Noted: 12/28/2022 Cannabis use disorder, mild, abuse Date Noted: 07/14/2022 PCOS (polycystic ovarian syndrome) Date Noted: 08/24/2023 Dermoid cyst of ovary, right Date Noted: 08/25/2023 Resolved Ambulatory Problems with care elsewhere, antepartum Date Noted: 11/15/2022 Nausea and vomiting Date Noted: 06/18/2022 34 weeks gestation of Date Noted: 12/23/2022 Poor growth affecting management of mother in third trimester Date Noted: 12/23/2022 Depression affecting in third trimester, antepartum Date Noted: 12/24/2022 Placental abruption in third trimester Date Noted: 12/27/2022 Intrauterine growth restriction (IUGR) affecting care of mother, third trimester, single gestation Date Noted: 06/10/2021 growth restriction Date Noted: 12/28/2022 Hyperemesis gravidarum Date Noted: 07/14/2022 Past Medical History: No date: ADHD (attention deficit hyperactivity disorder) No date: Anemia No date: Asthma No date: IBS (irritable bowel syndrome) No date: Reactive airway disease Review of Systems Constitutional: Negative. HENT: Positive for sore throat. Eyes: Negative. Respiratory: Negative. Cardiovascular: Negative. Gastrointestinal: Negative. Endocrine: Negative. Genitourinary: Negative. Musculoskeletal: Negative. Skin: Negative. Neurological: Positive for headaches. Hematological: Negative. Objective BP 142/90 Pulse 102 Temp 37.3 C (99.1 F) Resp 16 Wt 87.4 kg (192 lb 10.9 oz) LMP 11/17/2023 (Exact Date) SpO2 99% BMI 32.06 kg/m Physical Exam Vitals reviewed. Constitutional: General: She is not in acute distress. Appearance: She is not ill-appearing, toxic-appearing or diaphoretic. HENT: Head: Normocephalic and atraumatic. Right Ear: Tympanic membrane, ear canal and external ear normal. Left Ear: Tympanic membrane, ear canal and external ear normal. Nose: Nose normal. Right Sinus: No maxillary sinus tenderness or frontal sinus tenderness. Left Sinus: No maxillary sinus tenderness or frontal sinus tenderness. Mouth/Throat: Mouth: Mucous membranes are moist. Pharynx: Oropharynx is clear. Posterior oropharyngeal erythema present. No oropharyngeal exudate. Cardiovascular: Rate and Rhythm: Normal rate and regular rhythm. Pulmonary: Effort: Pulmonary effort is normal. Breath sounds: Normal breath sounds. Lymphadenopathy: Head: Right side of head: No submandibular or tonsillar adenopathy. Left side of head: No submandibular or tonsillar adenopathy. Cervical: No cervical adenopathy. Psychiatric: Behavior: Behavior is cooperative. Assessment and Plan (J02.9) Pharyngitis, unspecified etiology (primary encounter diagnosis) Plan: methylPREDNISolone (MEDROL DOSE-PACK) 4 mg Dose-Pack (J02.9) Sore throat Plan: STREP A MOLECULAR (POC) (R51.9) Headache, unspecified headache type Plan: methylPREDNISolone (MEDROL DOSE-PACK) 4 mg Dose-Pack Education on viral vs bacterial infections. Most viral infections will last 10 days, sometimes 14. It is possible to have back to back viral infections. An antibiotic will not treat a virus. Negative strep culture in office. -Covid/flu/rsv test for rule out, results in 24 hours, isolation in the interim. Result to mychart. -Steroids with food for headache. -Drink lots of fluids and get plenty of rest. Gargle with salt water 3 times/day. -OTC tylenol as directed on the bottle. -Make follow up with primary care for monitoring and resolution in symptoms. -Signs that warrant an ER evaluation: Sudden change/worsening in condition, lethargy, signs of dehydration, fever greater than 102 F thatis not responding to Tylenol or ibuprofen (Motrin, Advil), drooling, difficulty swallowing, difficulty breathing, shortness of breath, chest pain, evidence of airway compromise (tripod position, neck extension, retractions), seizures, changes in mental status, or other concerns. The patient will pursue further outpatient evaluation with the primary care physician or another Urgent Care/Express Care as outlined in the after visit summary. The patient is agreeable to this planof care and follow-up instructions have been explained in detail. The patient has received these instructions in written format and have expressed an understanding of the after visit summary. Medical Decision Making: Level: 4 - Moderate I spent a total of 20 minutes on the date of the service which included preparing to see the patient, [id number] patient care, completing clinical documentation, obtaining and/or reviewing separately obtained history, performing a medically appropriate examination, counseling and educating the pat ient/family/caregiver, and ordering medications, tests, or procedures. This patient encounter involved the screening or treatment of novel coronavirus infection (COVID-19). [facility] Instructions* Patient Instructions* Patricia Whitehead APRN.CNP - 12/13/2023 3:55 PM EST (J02.9) Pharyngitis, unspecified etiology (primary encounter diagnosis) Plan: methylPREDNISolone (MEDROL DOSE-PACK) 4 mg Dose-Pack (J02.9) Sore throat Plan: STREP A MOLECULAR (POC) (R51.9) Headache, unspecified headache type Plan: methylPREDNISolone (MEDROL DOSE-PACK) 4 mg Dose-Pack Education on viral vs bacterial infections. Most viral infections will last 10 days, sometimes 14. It is possible to have back to back viral infections. An antibiotic will not treat a virus. Negative strep culture in office. -Covid/flu/rsv test for rule out, results in 24 hours, isolation in the interim. Result to mychart. -Steroids with food for headache. -Drink lots of fluids and get plenty of rest. Gargle with salt water 3 times/day. -OTC tylenol as directed on the bottle. -Make follow up with primary care for monitoring and resolution in symptoms. -Signs that warrant an ER evaluation: Sudden change/worsening in condition, lethargy, signs of dehydration, fever greater than 102 F thatis not responding to Tylenol or ibuprofen (Motrin, Advil), drooling, difficulty swallowing, difficulty breathing, shortness of breath, chest pain, evidence of airway compromise (tripod position, neck extension, retractions), seizures, changes in mental status, or other concerns. [facility] Instructions* Patient Instructions* Angel Rivera RN - 12/13/2023 3:04 PM EST Call [phone] to schedule with pelvic pain clinic. documented in [facility]24 NoteHNO ID: [id number] Author: DONNA GRANADOS MD Service: ? Author Type: Physician Type: Progress Notes Filed: 12/13/2023 18:40 Note Text: Chana De La O is a 22 year old female who presents for problem visit ultrasound follow up results, c/o lower abd pain rated 4 x 2.5 years. HPI: 22 YOF w/ h/o chronic pelvic pain. States it is getting worse. Today missed work. States she has it enough that she sometimes that she gets nauseated and vomits. Warm shower helps. States she has to smoke cannabis in am to be able to function b/c of pain. Has had multiple ED visits, US, CT scans. Has dermoid cyst that has increased in size slightly. States she has had pain since she had her first child. Completed child bearing and has had tubal. 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 Unwrap and insert as directed metroNIDAZOLE (FLAGYL) 500 mg tablet Take 1 tablet by mouth two times a day for 7 days. albuterol HFA (PROVENTIL HFA, VENTOLIN HFA) 90 mcg/actuation inhaler Inhale 2 Puffs as instructed every 4 hours as needed for wheezing/shortness of breath. benzonatate (TESSALON PERLES) 100 mg capsule Take 1-2 capsules by mouth three times a day as needed for cough. fluticasone (FLONASE) 50 mcg/actuation nasal spray Use 2 Sprays in each nostril once daily. Rinse mouth after use. cetirizine (ZYRTEC) 10 mg tablet Take 1 tablet by mouth once daily. ferrous sulfate 325 mg (65 mg iron) tablet Take by mouth. No current facility-administered medications for this visit. Allergies As of Date: 12/13/2023 Allergen Noted Reaction SEASONAL ALLERGIES 11/30/2017 Cough, Other: See Comments, and Itching Fully Assessed 12/08/2023 EXAM: LMP 08/21/2023 GENERAL: pleasant, female in no apparent distress. Sitting on chair comfortably when I arrive in room ASSESSMENT AND PLAN: Assessment AND Plan Chronic pelvic pain in female Orders: CONSULT TO UNPAID INTERN PELVIC PAIN; Future cannabis use, suspect that this may be contributing to cyclic vomiting. She denies this. d/w her removing dermoid cyst will not likely improve pain, has had GI workup. Recommend pelvic floor PT. F/u as scheduled to discuss further on 12/30/23. Reviwed 08/18 CT and 08/24 pelvic US, today's pelvic US pending but no acute pain to suspect torsion. Use heat/nsaids/tylenol Donna Granados [facility]11-05-2024 History of Present illness Narrative* Donna Granados MD - 12/13/2023 2:19 PM EST Chana De La O is a 22 year old female who presents for problem visit ultrasound follow up results, c/o lower abd pain rated 4 x 2.5 years. HPI: 22 YOF w/ h/o chronic pelvic pain. States it is getting worse. Today missed work. States she has it enough that she sometimes that she gets nauseated and vomits. Warm shower helps. States she has to smoke cannabis in am to be able to function b/c of pain. Has had multiple ED visits, US, CT scans. Has dermoid cyst that has increased in size slightly. States she has had pain since she had her first child. Completed child bearing and has had tubal. 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 Unwrap and insert as directed metroNIDAZOLE (FLAGYL) 500 mg tablet Take 1 tablet by mouth two times a day for 7 days. albuterol HFA (PROVENTIL HFA, VENTOLIN HFA) 90 mcg/actuation inhaler Inhale 2 Puffs as instructed every 4 hours as needed for wheezing/shortness of breath. benzonatate (TESSALON PERLES) 100 mg capsule Take 1-2 capsules by mouth three times a day as neededfor cough. fluticasone (FLONASE) 50 mcg/actuation nasal spray Use 2 Sprays in each nostril once daily. Rinse mouth after use. cetirizine (ZYRTEC) 10 mg tablet Take 1 tablet by mouth once daily. ferrous sulfate 325 mg (65 mg iron) tablet Take by mouth. No current facility-administered medications for this visit. Allergies As of Date: 12/13/2023 Allergen Noted Reaction SEASONAL ALLERGIES 11/30/2017 Cough, Other: See Comments, and Itching Fully Assessed 12/08/2023 EXAM: LMP 08/21/2023 GENERAL: pleasant, female in no apparent distress. Sitting on chair comfortably when I arrive in room ASSESSMENT AND PLAN: Assessment & Plan Chronic pelvic pain in female Orders: CONSULT TO UNPAID INTERN PELVIC PAIN; Future cannabis use, suspect that this may be contributing to cyclic vomiting. She denies this. d/w her removing dermoid cyst will not likely improve pain, has had GI workup. Recommend pelvic floor PT. F/u as scheduled to discuss further on 12/30/23. Reviwed 08/18 CT and 08/24 pelvic US, today's pelvic US pending but no acute pain to suspect torsion. Use heat/nsaids/tylenol Donna Granados MD documented [facility] Telephone encounter Note * Telephone Encounter - Trista Brown LPN - 12/13/2023 1:10 PM EST Patient scheduled [facility] Miscellaneous Notes* Telephone Encounter - Trista Brown LPN - 12/13/2023 1:10 PM EST Patient scheduled * Telephone Encounter - Donna Granados MD - 12/13/2023 12:[address] Mckeon doesn't have openings anymore, one of us will work her in as able this afternoob. Harish Granados MD * Telephone Encounter - Donna Granados MD - 12/13/2023 12:28 PM EST US today, rule out torsion. Put her in one of Dr. Mckeon open slots but have her come up and we willtry to work her in early. Donna Granados MD * Telephone Encounter - Angel Rivera RN - 12/13/2023 9:58 AM EST Patient calling in again today c/o pelvic pain (see 12/11 phone note too). She ended up going to [facility] ER yesterday. Rating pain 10/10 on pain scale today. Has been alternating tylenol/ibuprofen, but hasn't been working. Having n/v with it and was given rx Zofran in ER last night, but doesn't help much when pain is severe. No fever. Doesn't want to go back to ER. ER records in care everywhere. CT result copied below. No u/s was done. There are u/s openings today. Please advise. Angel Rivera, [place] IMPRESSION: 1. No acute abdominal or pelvic inflammatory process. 2. Normal appendix. No adenopathy. 3. Right ovarian dermoid lesion measuring 2.9 x 3.5 x 2.7 cm containing macroscopic fat, soft tissue and calcifications. documented in this encounterKe[facility]11-[facility]24 Telephone encounter Note * Telephone Encounter - Donna Granados MD - 12/13/2023 12:[address] Mckeon doesn't have openings anymore, one of us will work her in as able this afternoob. Harish Granados MD [facility] Telephone encounter Note* Telephone Encounter - Donna Granados MD - 12/13/2023 12:28 PM EST US today, rule out torsion. Put her in one of Dr. Mckeon open slots but have her come up and we willtry to work her in early. Donna Granados MD [facility] Telephone encounter Note* Telephone Encounter - Angel Rivera RN - 12/13/2023 9:58 AM EST Patient calling in again today c/o pelvic pain (see 12/11 phone note too). She ended up going to [facility] ER yesterday. Rating pain 10/10 on pain scale today. Has been alternating tylenol/ibuprofen, but hasn't been working. Having n/v with it and was given rx Zofran in ER last night, but doesn't help much when pain is severe. No fever. Doesn't want to go back to ER. ER records in care everywhere. CT result copied below. No u/s was done. There are u/s openings today. Please advise. Angel Rivera RN IMPRESSION: 1. No acute abdominal or pelvic inflammatory process. 2. Normal appendix. No adenopathy. 3. Right ovarian dermoid lesion measuring 2.9 x 3.5 x 2.7 cm containing macroscopic fat, soft tissue and calcifications. [facility] Telephone encounter Note* Telephone Encounter - Davi Gomez MA - 12/13/2023 9:36 AM EST Received PA request for patients boric acid suppository, submitted PA on 12/08. PA was denied as it is a plan exclusion. Davi Gomez MA [facility]11-04-[facility] Telephone encounter Note* Telephone Encounter - Kendra Palmer RN - 12/12/2023 11:24 AM EST US not in today. Called Pt-she is at [facility] at this time. Kendra Palmer RN [facility]11-04-[facility]24 Miscellaneous Notes* Telephone Encounter - Kendra Palmer RN - 12/12/2023 11:24 AM EST US not in today. Called Pt-she is at [facility] at this time. Kendra Palmer RN * Telephone Encounter - Chani Hernandez MD - 12/12/2023 10:29 AM EST Noted thanks. I can also see her today as soon as she can get in, but will have to see if US opening * Telephone Encounter - Kendra Palmer RN - 12/12/2023 9:31 AM EST Pt called crying in stating she is having 10/10 bilateral lower abdominal pain that wraps around toher low back. States she has taken 100mg of Tylenol and it is not helping. Describes as tightness, stabbing, squeezing pain. Has ovarian cysts per pevic US 08/25/23. Asking if she can get sooner appt to discuss surgery. Appt changed to 12/30/23 11:10am with SW; however, Pt advised to go to ER with pain being so severe. Pt states she plans to and is waiting on someone to come watch her children. Kendra Palmer RN documented in this encounterKe[facility]11-[facility]-2024 Telephone encounter Note * Telephone Encounter - Chani Hernandez MD - 12/12/2023 10:29 AM EST Noted thanks. I can also see her today as soon as she can get in, but will have to see if US opening [facility] Work Phone: [phone] Telephone encounter Note* Telephone Encounter - Kendra Palmer RN - 12/12/2023 9:31 AM EST Pt called crying in stating she is having 10/10 bilateral lower abdominal pain that wraps around toher low back. States she has taken 100mg of Tylenol and it is not helping. Describes as tightness, stabbing, squeezing pain. Has ovarian cysts per pevic US 08/25/23. Asking if she can get sooner appt to discuss surgery. Appt changed to 12/30/23 11:10am with SW; however, Pt advised to go to ER with pain being so severe. Pt states she plans to and is waiting on someone to come watch her children. Kendra Palmer RN [facility]11-01-[facility] Telephone encounter Note* Telephone Encounter - Angel Rivera RN - 12/09/2023 4:30 PM EDT Called and notified patient. Angel Rivera RN [facility]11-[facility] Miscellaneous Notes* Telephone Encounter - Angel Rivera RN - 12/09/2023 4:30 PM EDT Called and notified patient. Angel Rivera RN * Telephone Encounter - Svetlana Schaeffer APRN.CNP - 12/09/2023 3:44 PM EDT Please call patient Svetlana Schaeffer APRN.CNP documented in this encounterKe[facility]11-[facility]-2024 Telephone encounter Note * Telephone Encounter - Svetlana Schaeffer APRN.CNP - 12/09/2023 3:44 PM EDT Please call patient Svetlana Schaeffer APRN.CNP [facility]10-[facility]24 NoteHNO ID: [id number] Author: SVETLANA SCHAEFFER APRN.CNP Service: ? Author Type: Nurse Practitioner Type: Progress Notes Filed: 12/08/2023 14:34 Note Text: Chana De La O is a 22 year old female who presents for problem visit to follow up from her ER visit. HPI: Chana went to ER on 12/05 for blood in the urine. She was diagnosed with UTI and treated with Keflex. She had a CT scan 12/05 that showed Symmetric nephrograms. No hydronephrosis. The ureters are normal in course and caliber. The urinary bladder is under distended. The uterus is within normal limits. Right ovarian lesion which appears to contain fat, soft tissue, and calcified material measures 3.5 cm, previously 2.2 cm. Probable corpus luteum in the left ovary. Had ultrasound 12/06/23 that showed: Predominately echogenic right ovarian echogenic lesion with some areas of small cysts measures 4.4x3.6.4.1 cm and correlates with a dermoid as seen on a prior CT exam. There is an an avascular crenulated 3.2 cm left ovarian structure which contains echogenic debris. Appropriate Doppler flow is appreciated to both ovaries. Dermoid cyst noted on ultrasound/CT back in August. She is having generalized pelvic pain. Denies concerns for STDs, but would like screened. Reports continued nausea, was referred to GI in August. Has seen Dr. Kowalski. Does use marijuana and was previously counseled that overuse can cause N/V and abdominal pain. 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 History Comments: Sexual Activity: Yes; No partner [...] Social History Tobacco Use Smoking status: Former Current packs/day: 0.00 Types: Cigarettes Start date: 11/08/2014 Quit date: 11/08/2022 Years since quittin.0 Passive exposure: Past Smokeless tobacco: Never Tobacco comments: vape Vaping Use Vaping status: Some Days Substances: Nicotine Substance Use Topics Alcohol use: Never Drug use: Not Currently Types: Marijuana Current Outpatient Medications Medication Sig albuterol HFA (PROVENTIL HFA, VENTOLIN HFA) 90 mcg/actuation inhaler Inhale 2 Puffs as instructed every 4 hours as needed for wheezing/shortness of breath. benzonatate (TESSALON PERLES) 100 mg capsule Take 1-2 capsules by mouth three times a day as needed for cough. fluticasone (FLONASE) 50 mcg/actuation nasal spray Use 2 Sprays in each nostril once daily. Rinse mouth after use. cetirizine (ZYRTEC) 10 mg tablet Take 1 tablet by mouth once daily. ferrous sulfate 325 mg (65 mg iron) tablet Take by mouth. No current facility-administered medications for this visit. Allergies As of Date: 12/08/2023 Allergen Noted Reaction SEASONAL ALLERGIES 11/30/2017 Cough, Other: See Comments, and Itching Fully Assessed 11/18/2023 REVIEW OF SYSTEMS Abdomen: No bloating, early satiety, indigestion, or increased flatulence. No diarrhea, or constipation. + nausea/vomiting Expanded ROS: UNPAID INTERN: + pelvic pain Allergies and current medication updated:Yes SENSITIVE EXAM: The sensitive examination was discussed with the Patient or Patient's Authorized Rn Diabetes. As applicable, any other physician, advance practice provider, medical student, or other health professional student that will be observing or involved in the sensitive examination for educational or training purposes was discussed with the Patient or Authorized Rn Diabetes. The Patient or Authorized Rn Diabetes has agreed to proceed with the sensitive examination. (Sensitive examination includes inspection and/or palpation of the breasts, pelvis, prostate and anorectal regions). EXAM: BP 120/60 Wt 198 lb (89.8kg) LMP 08/21/2023 GENERAL: pleasant, female in no apparent distress HEENT: Normocephalic, atraumatic, mucus membranes moist, and no lesions CHEST: Normal inspiratory effort PELVIC: external genitalia normal, normal Bartholin's glands, urethra, [place]'s glands, no vulvar lesions, no cervical le (more content not included)... [facility]10-31-2024 History of Present illness Narrative* Svetlana Schaeffer APRN.SENIOR OCCUPATIONAL THERAPIST - 12/08/2023 2:04 PM EDT Chana De La O is a 22 year old female who presents for problem visit to follow up from her ER visit. HPI: Chana went to ER on 12/05 for blood in the urine. She was diagnosed with UTI and treated with Keflex. She had a CT scan 12/05 that showed Symmetric nephrograms. No hydronephrosis. The ureters are normal in course and caliber. The urinary bladder is under distended. The uterus is within normal limits. Right ovarian lesion which appears to contain fat, soft tissue, and calcified material measures 3.5 cm, previously 2.2 cm. Probable corpus luteum in the left ovary. Had ultrasound 12/06/23 that showed: Predominately echogenic right ovarian echogenic lesion with some areas of small cysts measures 4.4x3.6.4.1 cm and correlates with a dermoid as seen on a prior CT exam. There is an an avascular crenulated 3.2 cm left ovarian structure which contains echogenic debris. Appropriate Doppler flow is appreciated to both ovaries. Dermoid cyst noted on ultrasound/CT back in August. She is having generalized pelvic pain. Denies concerns for STDs, but would like screened. Reports continued nausea, was referred to GI in August. Has seen Dr. Kowalski. Does use marijuana and was previously counseled that overuse can cause N/V and abdominal pain. 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 History Comments: Sexual Activity: Yes; No partner [...] Social History Tobacco Use Smoking status: Former Current packs/day: 0.00 Types: Cigarettes Start date: 11/08/2014 Quit date: 11/08/2022 Years since quittin.0 Passive exposure: Past Smokeless tobacco: Never Tobacco comments: vape Vaping Use Vaping status: Some Days Substances: Nicotine Substance Use Topics Alcohol use: Never Drug use: Not Currently Types: Marijuana Current Outpatient Medications Medication Sig albuterol HFA (PROVENTIL HFA, VENTOLIN HFA) 90 mcg/actuation inhaler Inhale 2 Puffs as instructed every 4 hours as needed for wheezing/shortness of breath. benzonatate (TESSALON PERLES) 100 mg capsule Take 1-2 capsules by mouth three times a day as neededfor cough. fluticasone (FLONASE) 50 mcg/actuation nasal spray Use 2 Sprays in each nostril once daily. Rinse mouth after use. cetirizine (ZYRTEC) 10 mg tablet Take 1 tablet by mouth once daily. ferrous sulfate 325 mg (65 mg iron) tablet Take by mouth. No current facility-administered medications for this visit. Allergies As of Date: 12/08/2023 Allergen Noted Reaction SEASONAL ALLERGIES 11/30/2017 Cough, Other: See Comments, and Itching Fully Assessed 11/18/2023 REVIEW OF SYSTEMS Abdomen: No bloating, early satiety, indigestion, or increased flatulence. No diarrhea, or constipation. + nausea/vomiting Expanded ROS: UNPAID INTERN: + pelvic pain Allergies and current medication updated:Yes SENSITIVE EXAM: The sensitive examination was discussed with the Patient or Patient's Authorized Rn Diabetes. As applicable, any other physician, advance practice provider, medical student, or other health professional student that will be observing or involved in the sensitive examination for educational or training purposes was discussed with the Patient or Authorized Rn Diabetes. The Patient or Authorized Rn Diabetes has agreed to proceed with the sensitive examination. (Sensitive examination includes inspection and/or palpation of the breasts, pelvis, prostate and anorectal regions). EXAM: BP 120/60 Wt 198 lb (89.8kg) LMP 08/21/2023 GENERAL: pleasant, female in no apparent distress HEENT: Normocephalic, atraumatic, mucus membranes moist, and no lesions CHEST: Normal inspiratory effort PELVIC: external genitalia normal, normal Bartholin's glands, urethra, [place]'s glands, no vulvar lesions, no cervical lesions, good vaginal support, physiologic discharge present, normal appearing perineal body and perianal region BIMANUAL: uterus normal size, shape and consistency, no adnexal masses, and non-tender NEURO: alert and oriented x3,exam grossly non-focal EXTREMITIES: normal ASSESSMENT AND PLAN: 1. Pelvic pain in female - ICD9: 625.9, ICD10: R10.2 - Cultures obtained - Reviewed signs of torsion - Will consult with surgeon about chronic pelvic pain and dermoid cyst increasing in size Svetlana Schaeffer APRN.SENIOR OCCUPATIONAL THERAPIST Medical Decision Making: Problems: Moderate: 1+ chronic illnesses with change Data: Unique test result(s) reviewed: 3+ Unique test(s) ordered: 3+ Risk: Low: Low risk from testing/treatment Medical Decision Making Level: 4 - Moderate [facility]. MICRO - Microbiology PROCEDURE: Urine Culture [*1] SOURCE: Urine, Clean Catch BODY SITE: COLLECTED DATE/TIME: 12/06/2023 05:27 EDT RECEIVED DATE/TIME: 12/06/2023 14:13 EDT START DATE/TIME: 12/06/2023 14:13 EDT FREE TEXT SOURCE: FINAL REPORTS Final Report [] Verified Date/Time/Personnel: 12/08/2023 13:34 EDT 50,000 - 100,000 cfu/ml Mixed growth consistent with normal urogenital jordi. PRELIMINARY REPORTS Preliminary Report [] Verified Date/Time/Personnel: 12/07/2023 08:26 EDT Culture results pending. Performing Locations *1: This test was performed at: [facility], [address] [place] [address], [facility]- , [facility]10-29-2024 Evaluation + Plan note Diagnostic Tests Pending * Urine Culture 12/06/23 [facility] 10-29-2024 Hospital Discharge instructions Patient Education 12/06/2023 06:40:53 AA [facility]ira DI (CUSTOM) Result type:CT Abd/Pelvis w/ IV Contrast Only Result date:December 06, 2023 6:08 EDT Result status:In Progress Result title:CT ABD/PELVIS W/ IV CONTRAST ONLY Performed by:EM ARAGON MD on December 06, 2023 5:28 EDT Cosigned by:EM ARAGON MD Encounter info:[id number], [facility], Emergency, 12/06/2023 - Contributor system:[employer] * Preliminary Report * [id number] ORIGINAL EXAMINATION: CT OF THE ABDOMEN AND PELVIS WITH [id number]/29/2024 6:08 am TECHNIQUE: CT of the abdomen and pelvis was performed with the administration of intravenous contrast. Multiplanar reformatted images are provided for review. Automated exposure control, iterative reconstruction, and/or weight based adjustment of the mA/kV was utilized to reduce the radiation dose to as low as reasonably achievable. COMPARISON: CT abdomen pelvis 12/25/2021. HISTORY: ORDERING SYSTEM PROVIDED HISTORY: Reason for Exam: abdominal pain, FINDINGS: The included lung bases are clear. There is no visible pleural or pericardial effusion. The heart is normal in size. Hypoattenuation adjacent to the falciform ligament likely represents fatty infiltration. The liver is otherwise normal in contour and attenuation. No intrahepatic biliary ductal dilatation. Cholecystectomy. The spleen, pancreas, and adrenal glands are within normal limits. Symmetric nephrograms. No hydronephrosis. The ureters are normal in course and caliber. The urinary bladder is under distended. The uterus is within normal limits. Right ovarian lesion which appears to contain fat, soft tissue, and calcified material measures 3.5 cm, previously 2.2 cm. Probable corpus luteum in the left ovary. The large and small bowel demonstrate no obstruction. The appendix is not visualized. There is no pericecal inflammation. No free intraperitoneal fluid or gas is identified. The aorta is normal in caliber. No abdominopelvic lymphadenopathy. There is no acute fracture or aggressive osseous lesion. No acute soft tissue abnormality. IMPRESSION: No acute abdominopelvic process. Suspected dermoid in the right ovary has mildly enlarged when compared to exam CT 12/25/2021. Preliminary Report was Dictated by a Resident Preliminary Report By: Em Aragon Dictated Time: 12/06/2023 6:18:04 AM Prelim Time: 12/06/2023 6:26:30 AM Ordering Provider: BRISEYDA AVILA IMAGE This document has an image Document Released: 01/24/2006 Document Revised: 01/10/2013 Document Reviewed: 01/25/2014 ExitCare Patient Information 2015 [employer]. This information is not intended to replace advicegiven to you by your health care provider. Make sure you discuss any questions you have with your health care provider. 12/06/2023 06:33:08 Ovarian Cyst Ovarian Cysts The ovaries are two small organs located on each side of a woman s uterus (womb). They are part of the female reproductive system. Ovarian cysts are sacs filled with fluid or tissue that form on or inside the ovaries. Ovarian cysts are common in women, especially during childbearing years. There are different types of cysts. Most are harmless (benign) and go away on their own. They often cause no symptoms. If symptoms do occur, they can include mild pain or pressure in the lower belly (abdomen). Cysts that are large or break (rupture) may cause more severe pain and symptoms. In these cases, you may need hospital care or treatment such as surgery. You may need more extensive treatment if a cyst causes an ovary to twist (called torsion) or if your doctor suspects your cyst is cancerous. Keepin mind that most cysts are not cancerous, however. General care To help relieve pain, your healthcare provider may recommend using hhaq-mpb-aiqfaxe pain medicine. If needed, your provide may prescribe stronger pain medicine. Depending on the type of cyst you have, your healthcare provider may advise taking control pills. These help shrink cysts in certain cases. They may also help prevent new cysts from forming. Besure to take these medicines as directed if they are prescribed. Your healthcare provider may advise you to watch your symptoms over time to see if they go away or worsen. Regular ultrasound tests may also be advised. These can help check if a cyst goes away or grows in size. Follow-up care Follow up with your healthcare provider, or as advised. When to seek medical advice Call your healthcare provider right away if any of these occur: Pain worsens or fails to get better with home treatment Fever of 100.4 F (38 C) or higher (or other fever amount directed by your healthcare provider) Nausea and vomiting Weakness, dizziness, or fainting Abnormal vaginal bleeding [id number] [employer]. [address] [place] [address]. All rights reserved. This information is not intended as a substitute for professional medical care. Always follow yourhealthcare professional's instructions. 12/06/2023 06:33:06 Urinary Tract Infections in Women Urinary Tract Infections in Women Urinary tract infections (UTIs) are most often caused by bacteria. These bacteria enter the urinarytract. The bacteria may come from outside the body. Or they may travel from the skin outside the rectum or vagina into the urethra. Female anatomy makes it easy for bacteria from the bowel to enter awoman s urinary tract, which is the most common source of UTI. This means women develop UTIs more often than men. Pain in or around the urinary tract is a common UTI symptom. But the only way to knowfor sure if you have a UTI for the healthcare provider to test your urine. The two tests that may be done are the urinalysis and urine culture. Types of UTIs Cystitis. A bladder infection (cystitis) is the most common UTI in women. You may have urgent or frequent urination. You may also have pain, burning when you urinate, and bloody urine. Urethritis. This is an inflamed urethra, which is the tube that carries urine from the bladder to outside the body. You may have lower stomach or back pain. You may also have urgent or frequent urination. Pyelonephritis. This is a kidney infection. If not treated, it can be serious and damage your kidneys. In severe cases, you may need to stay in the hospital. You may have a fever and lower back pain. Medicines to treat a UTI Most UTIs are treated with antibiotics. These kill the bacteria. The length of time you need to take them depends on the type of infection. It may be as short as 3 days. If you have repeated UTIs, you may need a low-dose antibiotic for several months. Take antibiotics exactly as directed. Don t stop taking them until all of the medicine is gone. If you stop taking the antibiotic too soon, the infection may not go away. You may also develop a resistance to the antibiotic. This can make it much harder to treat. Lifestyle changes to treat and prevent UTIs The lifestyle changes below will help get rid of your UTI. They may also help prevent future UTIs. Drink plenty of fluids. This includes water, juice, or other caffeine-free drinks. Fluids help flush bacteria out of your body. Empty your bladder. Always empty your bladder when you feel the urge to urinate. And always urinatebefore going to sleep. Urine that stays in your bladder can lead to infection. Try to urinate before and after sex as well. Practice good personal hygiene. Wipe yourself from front to back after using the toilet. This helpskeep bacteria from getting into the urethra. Use condoms during sex. These help prevent UTIs caused by sexually transmitted bacteria. Also don'tuse spermicides during sex. These can increase the risk for UTIs. Choose other forms of control instead. For women who tend to get UTIs after sex, a low-dose of a preventive antibiotic may be used. Be sure to discuss this option with your healthcare provider. Follow up with your healthcare provider as directed. He or she may test to make sure the infection has cleared. If needed, more treatment may be started. [phone] [employer]. [address] [place] [address]. All rights reserved. This information is not intended as a substitute for professional medical care. Always follow yourhealthcare professional's instructions. 12/06/2023 05:23:46 Abdominal Pain Abdominal Pain Abdominal pain is [...] foods again, start with small amounts of lyjn-ms-jnqyvo, low- fat foods. These include apple sauce, [...] increase stomach acid. Don't use aspirin or rkgm-ntm-lfgpoxk pain and fever medicines, if possible. This includes nonsteroidal anti-inflammatory drugs (NSAIDs). Lose excess weight. Finish eating at least 2 hours before you go to bed or lie down. Raise the head of your bed. [phone] [employer]. [address] [facility], [place] [address]. All rights reserved. This information is not intended as a substitute for professional medical care. Always follow yourhealthcare professional's instructions. Follow Up Care 12/06/2023 05:11:04 With:your environmental health technologist Address: When:2-4 days With:GERARDO BLAS MD, [facility] Address: [address] [place] [phone] When:3-5 days With:Go to emergency room if symptoms worsen Address:Unknown When:2-4 days With:Follow up with primary care provider Address:Unknown When:2-4 days [facility] 10-29-2024 Note Discharge Instructions Thank you for allowing [facility] to assist you with your healthcare needs. The following is importantdischarge information regarding your hospital visit. Diagnosis from Today's Visit Abdominal pain Ovarian cyst UTI (urinary tract infection) What to Do Next Instructions from Your Care Team Take Keflex as prescribed for possible UTI. Would recommend follow-up with Dr. Pham of urology orurologist of your choosing given hematuria with UTI. Would recommend follow-up with your REPAIRER AND CHECKER given your ovarian cyst. Take Bentyl as needed for pain. Next at the recommended dose. Return emergencydepartment if experience worsening symptoms or any other care concern. No qualifying data available. Post Acute Orders No qualifying data available. You Need to Schedule the Following Appointments Follow Up with your environmental health technologist When:Within 2-4 days Follow Up with GERARDO BLAS MD, [facility] When:Within 3-5 days Where:[address] [place] [phone]- [phone] Follow Up with Go to emergency room if symptoms worsen When:Within 2-4 days Follow Up with Follow up with primary care provider When:Within 2-4 days Allergies NKA Medications Please ask your primary doctor or pharmacist before taking any other medication not listed, including over the counter drugs, herbal medications, vitamins and or supplements as they may interact withyour home medications. What How Much When Why Instructions Last Dose New cephalexin (cephalexin 500 mg oral capsule) 1 cap by mouth Four (4) times a day Duration: 7 Days Printed Prescription Changed dicyclomine (Bentyl use dicyclomine ) 20 Milligram by mouth Four (4) times a day Abdominal pain Ovarian cyst Duration: 7 Days Changed dicyclomine (dicyclomine 10 mg oral capsule) 1 cap by mouth Three (3) times a day Duration: 7 Days Printed Prescription Please take this list to your next doctor s visit. Bring all medications you take, including over the counter medications, herbals and other supplements with you to your doctor s visit. Patients and families are reminded to discard old lists and to update any records with all medication providers or retail pharmacies. Medication Leaflets dicyclomine (oral/injection) (steve Castillo What is the most important information I should know about dicyclomine? Many drugs can affect dicyclomine. Tell your doctor about all your current medicines. What is dicyclomine? Dicyclomine is used to treat functional bowel or irritable bowel syndrome. Dicyclomine may also be used for purposes not listed in this medication guide. What should I discuss with my healthcare provider before taking dicyclomine? You should not use dicyclomine if you are allergic to it, or if you have: glaucoma; a bladder obstruction or other urination problems; a blockage in your digestive tract (stomach or intestines); severe ulcerative colitis; gastroesophageal reflux disease (GERD); a serious heart condition and active bleeding; myasthenia gravis; or if you are a baby. Not approved for use by anyone younger than 18 years old. Dicyclomine should never be given to a child younger than 6 months old. Tell your doctor if you have ever had: heart problems or high blood pressure; a stroke; ulcerative colitis; an ileostomy or colostomy; an enlarged prostate; or liver or kidney disease. Older adults may be more sensitive to the effects of this medicine. Tell your doctor if you are . Do not breastfeed. How should I take dicyclomine? Follow all directions on your prescription label and read all medication guides or instruction sheets. Your doctor may occasionally change your dose. Use the medicine exactly as directed. Dicyclomine oral is taken by mouth. Measure liquid medicine with the supplied syringe or a dose-measuring device (not a kitchen spoon). Dicyclomine injection is given in a muscle if you are unable to take the medicine by mouth. Call your doctor if your symptoms do not improve after 2 weeks. Store at room temperature away from moisture and heat. What happens if I miss a dose? Skip the missed dose and use your next dose at the regular time. Do not use two doses at one time. What happens if I overdose? Seek emergency medical attention or call the Poison Help line at . Overdose can cause nausea, vomiting, dilated pupils, weakness or loss of movement in any part of your body, trouble swallowing, fainting, or seizure (convulsions). What should I avoid while taking dicyclomine? May cause dizziness or blurred vision. Avoid driving or hazardous activity until you know how this medicine will affect you. Avoid becoming overheated or dehydrated during exercise and in hot weather. Dicyclomine can decrease sweating and you may be more prone to heat stroke. Tell your doctor if you have a fever while taking dicyclomine. Avoid using an antacid. Antacids can make it harder for your body to absorb dicyclomine oral. What are the possible side effects of dicyclomine? Get emergency medical help if you have signs of an allergic reaction: hives; difficult breathing; swelling of your face, lips, tongue, or throat. Call your doctor at once if you have: fast or slow heartbeats, pounding heartbeats or fluttering in your chest; confusion, agitation, hallucinations, unusual thoughts or behavior; problems with memory or speech; problems with balance or muscle movement; diarrhea, severe constipation, or worsening of bowel symptoms; trouble swallowing; bruising, swelling, or pain where a dicyclomine injection was given; or dehydration --dizziness, confusion, feeling very thirsty, less urination or sweating. Confusion and mood or behavior changes may be more likely in older adults. Common side effects may include: drowsiness, dizziness, weakness, nervousness; blurred vision; dry mouth; or nausea. This is not a complete list of side effects and others may occur. Call your doctor for medical advice about side effects. You may report side effects to FDA at 9-391-LDM-6834. What other drugs will affect dicyclomine? Using dicyclomine with other drugs that make you drowsy can worsen this effect. Ask your doctor before using opioid medication, a sleeping pill, a muscle relaxer, or medicine for anxiety or seizures. Tell your doctor about all your current medicines. Many drugs can affect dicyclomine, especially: bronchodilator asthma medication; cold or allergy medicine (Benadryl and others); glaucoma medication; heart medication; medicine to treat depression, anxiety, mood disorders, or mental illness; medicine to treat overactive bladder; medicine to treat Parkinson's disease; or medicine to treat stomach problems, motion sickness, or irritable bowel syndrome. This list is not complete and many other drugs may affect dicyclomine. This includes prescription and ysju-jmr-rhdirky medicines, vitamins, and herbal products. Not all possible drug interactions arelisted here. Where can I get more information? Your pharmacist can provide more information about dicyclomine. Remember, keep this and all other medicines out of the reach of children, never share your medicines with others, and use this medication only for the indication prescribed. Every effort has been made to ensure that the information provided by [employer]. [employer]') is accurate, up-to-date, and complete, but no guarantee is made to that effect. Drug information contained herein may be time sensitive. [employer] ([employer]IS) information has been compiled for use by healthcare practitioners and consumers in the [place] and therefore [employer] (RIS) does not warrant that uses outside of the [place] are appropriate, unless specifically indicated otherwise. [employer] drug information does not endorse drugs, diagnose patients or recommend therapy. [employer] drug information isan informational resource designed to assist licensed healthcare practitioners in caring for their p atients and/or to serve consumers viewing this service as a supplement to, and not a substitute for, the expertise, skill, knowledge and judgment of healthcare practitioners. The absence of a warningfor a given drug or drug combination in no way should be construed to indicate that the drug or drug combination is safe, effective or appropriate for any given patient. [employer] ([employer]) does not assume any responsibility for any aspect of healthcare administered with the aid of information [employer] ([employer]) provides. The information contained herein is not intended to cover all possible uses, directions, precautions, warnings, drug interactions, allergic reactions, or adverse effects. If you have questions about the drugs you are taking, check with your doctor, nurse or pharmacist. Copyright 5288-6848 [employer]. Version: 8.01. Revision Date: 09/10/2022. cephalexin (sef a SARAH in) What is the most important information I should know about cephalexin? You should not use this medicine if you are allergic to cephalexin or to similar antibiotics, such as Ceftin, Cefzil, Omnicef, and others. Tell your doctor if you are allergic to any drugs, especially penicillins or other antibiotics. What is cephalexin? Cephalexin is a cephalosporin (SEF a low spor in) antibiotic that is used to treat bacterial infections of the lungs, ear, skin, bones, bladder, and kidneys. Cephalexin is used to treat infections in adults and children who are at least 1 year old. Cephalexin may also be used for purposes not listed in this medication guide. What should I discuss with my healthcare provider before taking cephalexin? You should not use this medicine if you are allergic to cephalexin or any other cephalosporin antibiotic (cefdinir, cefadroxil, cefoxitin, cefprozil, ceftriaxone, cefuroxime, Omnicef, and others). Tell your doctor if you have ever had: an allergy to any drug (especially penicillin); liver or kidney disease; or intestinal problems, such as colitis. The liquid form of cephalexin may contain sugar. This may affect you if you have diabetes. Tell your doctor if you are or breast-feeding. How should I take cephalexin? Follow all directions on your prescription label and read all medication guides or instruction sheets. Use the medicine exactly as directed. Do not use cephalexin to treat any condition that has not been checked by your doctor. Measure liquid medicine carefully. Use the dosing syringe provided, or use a medicine dose-measuring device (not a kitchen spoon). Use this medicine for the full prescribed length of time, even if your symptoms quickly improve. Skipping doses can increase your risk of infection that is resistant to medication. Cephalexin will not treat a viral infection such as the flu or a common cold. Do not share cephalexin with another person, even if they have the same symptoms you have. This medicine can affect the results of certain medical tests. Tell any doctor who treats you that you are using cephalexin. Store the tablets and capsules at room temperature away from moisture, heat, and light. Store the liquid medicine in the refrigerator. Throw away any unused liquid after 14 days. What happens if I miss a dose? Take the medicine as soon as you can, but skip the missed dose if it is almost time for your next dose. Do not take two doses at one time. What happens if I overdose? Seek emergency medical attention or call the Poison Help line at . Overdose symptoms may include nausea, vomiting, stomach pain, diarrhea, and blood in your urine. What should I avoid while taking cephalexin? Antibiotic medicines can cause diarrhea, which may be a sign of a new infection. If you have diarrhea that is watery or bloody, call your doctor before using anti-diarrhea medicine. What are the possible side effects of cephalexin? Get emergency medical help if you have signs of an allergic reaction (hives, difficult breathing, swelling in your face or throat) or a severe skin reaction (fever, sore throat, burning eyes, skin pain, red or purple skin rash with blistering and peeling). Call your doctor at once if you have: severe stomach pain, diarrhea that is watery or bloody (even if it occurs months after your last dose); unusual tiredness, feeling light-headed or short of breath; easy bruising, unusual bleeding, purple or red spots under your skin; a seizure; pale skin, cold hands and feet; yellowed skin, dark colored urine; fever, weakness; or pain in your side or lower back, painful urination. Common side effects may include: diarrhea; nausea, vomiting; indigestion, stomach pain; or vaginal itching or discharge. This is not a complete list of side effects and others may occur. Call your doctor for medical advice about side effects. You may report side effects to FDA at 4-453-MYQ-0963. What other drugs will affect cephalexin? Tell your doctor about all your other medicines, especially: metformin; or probenecid. This list is not complete. Other drugs may affect cephalexin, including prescription and jwcd-sdf-otkakkh medicines, vitamins, and herbal products. Not all possible drug interactions are listed here. Where can I get more information? Your pharmacist can provide more information about cephalexin. Remember, keep this and all other medicines out of the reach of children, never share your medicines with others, and use this medication only for the indication prescribed. Every effort has been made to ensure that the information provided by [employer]') is accurate, up-to-date, and complete, but no guarantee is made to that effect. Drug information contained herein may be time sensitive. [employer] (RIS) information has been compiled for use by healthcare practitioners and consumers in the [place] and therefore [employer] does not warrant that uses outside of the [place] are appropriate, unless specifically indicated otherwise. [employer] ([employer]IS)'s drug information does not endorse drugs, diagnose patients or recommend therapy. [facility] drug information isan informational resource designed to assist licensed healthcare practitioners in caring for their p atients and/or to serve consumers viewing this service as a supplement to, and not a substitute for, the expertise, skill, knowledge and judgment of healthcare practitioners. The absence of a warningfor a given drug or drug combination in no way should be construed to indicate that the drug or drug combination is safe, effective or appropriate for any given patient. [facility] does not assume any responsibility for any aspect of healthcare administered with the aid of information [facility] provides. The information contained herein is not intended to cover all possible uses, directions, precautions, warnings, drug interactions, allergic reactions, or adverse effects. If you have questions about the drugs you are taking, check with your doctor, nurse or pharmacist. Copyright [id number] [employer]. Version: 12.. Revision Date: 09/08/2022. Education Materials Result type: CT Abd/Pelvis w/ IV Contrast Only Result date: December 06, 2023 6:08 EDT Result status: In Progress Result title: CT ABD/PELVIS W/ IV CONTRAST ONLY Performed by: EM ARAGON MD on December 06, 2023 5:28 EDT Cosigned by: EM ARAGON MD Encounter info: [id number], [facility], Emergency, 12/06/2023 - Contributor system: [employer] * Preliminary Report * [id number] ORIGINAL EXAMINATION: CT OF THE ABDOMEN AND PELVIS WITH ILJKKTRU58/29/2024 6:08 am TECHNIQUE: CT of the abdomen and pelvis was performed with the administration of intravenous contrast. Multiplanar reformatted images are provided for review. Automated exposure control, iterative reconstruction, and/or weight based adjustment of the mA/kV was utilized to reduce the radiation dose to as low as reasonably achievable. COMPARISON: CT abdomen pelvis 12/25/2021. HISTORY: ORDERING SYSTEM PROVIDED HISTORY: Reason for Exam: abdominal pain, FINDINGS: The included lung bases are clear. There is no visible pleural or pericardial effusion. The heart is normal in size. Hypoattenuation adjacent to the falciform ligament likely represents fatty infiltration. The liver is otherwise normal in contour and attenuation. No intrahepatic biliary ductal dilatation. Cholecystectomy. The spleen, pancreas, and adrenal glands are within normal limits. Symmetric nephrograms. No hydronephrosis. The ureters are normal in course and caliber. The urinary bladder is under distended. The uterus is within normal limits. Right ovarian lesion which appears to contain fat, soft tissue, and calcified material measures 3.5 cm, previously 2.2 cm. Probable corpus luteum in the left ovary. The large and small bowel demonstrate no obstruction. The appendix is not visualized. There is no pericecal inflammation. No free intraperitoneal fluid or gas is identified. The aorta is normal in caliber. No abdominopelvic lymphadenopathy. There is no acute fracture or aggressive osseous lesion. No acute soft tissue abnormality. IMPRESSION: No acute abdominopelvic process. Suspected dermoid in the right ovary has mildly enlarged when compared to exam CT 12/25/2021. Preliminary Report was Dictated by a Resident Preliminary Report By: Em Aragon Dictated Time: 12/06/2023 6:18:04 AM Prelim Time: 12/06/2023 6:26:30 AM Ordering Provider: BRISEYDA AVILA IMAGE This document has an image Document Released: 01/24/2006 Document Revised: 01/10/2013 Document Reviewed: 01/25/2014 ExitCare Patient Information 2015 [employer]. This information is not intended to replace advicegiven to you by your health care provider. Make sure you discuss any questions you have with your health care provider. Ovarian Cysts The ovaries are two small organs located on each side of a woman s uterus (womb). They are part of the female reproductive system. Ovarian cysts are sacs filled with fluid or tissue that form on or inside the ovaries. Ovarian cysts are common in women, especially during childbearing years. There are different types of cysts. Most are harmless (benign) and go away on their own. They often cause no symptoms. If symptoms do occur, they can include mild pain or pressure in the lower belly (abdomen). Cysts that are large or break (rupture) may cause more severe pain and symptoms. In these cases, you may need hospital care or treatment such as surgery. You may need more extensive treatment if a cyst causes an ovary to twist (called torsion) or if your doctor suspects your cyst is cancerous. Keepin mind that most cysts are not cancerous, however. General care To help relieve pain, your healthcare provider may recommend using jzor-wsv-jmhjvut pain medicine. If needed, your provide may prescribe stronger pain medicine. Depending on the type of cyst you have, your healthcare provider may advise taking control pills. These help shrink cysts in certain cases. They may also help prevent new cysts from forming. Besure to take these medicines as directed if they are prescribed. Your healthcare provider may advise you to watch your symptoms over time to see if they go away or worsen. Regular ultrasound tests may also be advised. These can help check if a cyst goes away or grows in size. Follow-up care Follow up with your healthcare provider, or as advised. When to seek medical advice Call your healthcare provider right away if any of these occur: Pain worsens or fails to get better with home treatment Fever of 100.4 F (38 C) or higher (or other fever amount directed by your healthcare provider) Nausea and vomiting Weakness, dizziness, or fainting Abnormal vaginal bleeding [id number] [employer]. [address] [place] [address]. All rights reserved. This information is not intended as a substitute for professional medical care. Always follow yourhealthcare professional's instructions. Urinary Tract Infections in Women Urinary tract infections (UTIs) are most often caused by bacteria. These bacteria enter the urinarytract. The bacteria may come from outside the body. Or they may travel from the skin outside the rectum or vagina into the urethra. Female anatomy makes it easy for bacteria from the bowel to enter awoman s urinary tract, which is the most common source of UTI. This means women develop UTIs more often than men. Pain in or around the urinary tract is a common UTI symptom. But the only way to knowfor sure if you have a UTI for the healthcare provider to test your urine. The two tests that may be done are the urinalysis and urine culture. Types of UTIs Cystitis. A bladder infection (cystitis) is the most common UTI in women. You may have urgent or frequent urination. You may also have pain, burning when you urinate, and bloody urine. Urethritis. This is an inflamed urethra, which is the tube that carries urine from the bladder to outside the body. You may have lower stomach or back pain. You may also have urgent or frequent urination. Pyelonephritis. This is a kidney infection. If not treated, it can be serious and damage your kidneys. In severe cases, you may need to stay in the hospital. You may have a fever and lower back pain. Medicines to treat a UTI Most UTIs are treated with antibiotics. These kill the bacteria. The length of time you need to take them depends on the type of infection. It may be as short as 3 days. If you have repeated UTIs, you may need a low-dose antibiotic for several months. Take antibiotics exactly as directed. Don t stop taking them until all of the medicine is gone. If you stop taking the antibiotic too soon, the infection may not go away. You may also develop a resistance to the antibiotic. This can make it much harder to treat. Lifestyle changes to treat and prevent UTIs The lifestyle changes below will help get rid of your UTI. They may also help prevent future UTIs. Drink plenty of fluids. This includes water, juice, or other caffeine-free drinks. Fluids help flush bacteria out of your body. Empty your bladder. Always empty your bladder when you feel the urge to urinate. And always urinatebefore going to sleep. Urine that stays in your bladder can lead to infection. Try to urinate before and after sex as well. Practice good personal hygiene. Wipe yourself from front to back after using the toilet. This helpskeep bacteria from getting into the urethra. Use condoms during sex. These help prevent UTIs caused by sexually transmitted bacteria. Also don'tuse spermicides during sex. These can increase the risk for UTIs. Choose other forms of control instead. For women who tend to get UTIs after sex, a low-dose of a preventive antibiotic may be used. Be sure to discuss this option with your healthcare provider. Follow up with your healthcare provider as directed. He or she may test to make sure the infection has cleared. If needed, more treatment may be started. [id number] [employer]. [address] [place] [address], [place] [address]. All rights reserved. This information is not intended as a substitute for professional medical care. Always follow yourhealthcare professional's instructions. Abdominal Pain Abdominal pain is pain in [...] foods again, start with small amounts of kjpp-rz-mvmmsp, low- fat foods. These include apple sauce, [...] increase stomach acid. Don't use aspirin or opep-ysr-hdzykob pain and fever medicines, if possible. This includes nonsteroidal anti-inflammatory drugs (NSAIDs). Lose excess weight. Finish eating at least 2 hours before you go to bed or lie down. Raise the head of your bed. 7186-2315 [employer]. [address] [place] [address]. All rights reserved. This information is not intended as a substitute for professional medical care. Always follow yourhealthcare professional's instructions. Additional Information VACCINATE! IT SAVES LIVES! Members of the community who have not yet received the COVID-19 vaccine and would like to receive it can visit one of [facility] vaccine clinics. There are many vaccine clinic locations within the [facility]. For locations and available times, please visit [email or web address].[place].gov/. It is important to note that some COVID mobile vaccine clinics are held outdoors and may be canceled in rainy or stormy conditions. To learn more about pediatric vaccinations (ages 5-11), we invite you to visit the [facility] webpage. [email or web address] learn more about the COVID-19 vaccine, we invite you to visit the CDC website for a list of frequently asked questions. https://www.cdc.gov/coronavirus/2019-ncov/vaccines/faq.html [facility] Patient Portal Access Instructions: Stay connected with your healthcare team and access your personal medical information anytime with the [facility] Patient Portal. If you would like a full copy of your medical records please contact the [facility] Medical Records Department Tuesday through Tuesday between 8a.m. and 4:30p.m. Please follow the directions below to access the portal: 1.Access the email account you provided upon registration to the [facility].2.Look for an invitation email from [facility].3.Open the email and access the invitation link: Accept Invitation to [facility]4.Fill in the required solis to create your account. Sign into [email or web address] with your username and password that you [...] you will allow to register on the [facility] Patient Portal for access to your information. You can also access the [facility] Patient Portal on the xaitment. Simply click on Health Records under [employer] and then click on the [facility] logo. HOW TO SAFELY DISPOSE OF PRESCRIPTION [...] Call your local pharmacy or go to [email or web address] to find one close to you.3.Make use of household items: Use cat litter or old coffee grounds to dispose medications if other options arenot available. Mix your drugs with these household products, seal them in an airtight container andthrow it into the garbage. Call [facility]: [phone] to be sure your drugs can be [...] a CHART COPY Signatures Patient Education Materials REAL COOK (CUSTOM) Ovarian Cyst Urinary Tract Infections in Women Abdominal Pain Medication Leaflets dicyclomine (oral/injection), cephalexin My discharge plan and instructions have been reviewed and explained to me and I,CHANA DE LA O understand my current condition and have read and understand these discharge instructions. I have received a written copy of the plan/instructions. If I have questions, I am aware that I should contact my d octor. Patient/Rn Diabetes Signature: Date/Time: Relationship to Patient: Witness Name/Signature: Date/Time: [facility]10-29-2024 Note ORIGINAL EXAMINATION: Transvaginal and transabdominal pelvic yfqfymrfbd86/29/2024 7:26 am TECHNIQUE: Transvaginal and transabdominal pelvic ultrasound was performed. COMPARISON: CT abdomen pelvis 12/06/2023 and 12/25/2021. HISTORY: ORDERING SYSTEM PROVIDED HISTORY: Reason for Exam: abdominal pain, cyst, rule out torsion FINDINGS: The anteverted uterus is measures 7.1 x 4.8 x 3.9 cm and has normal echotexture. No myometrial mass is seen. There are some calcifications seen at the myometrial/endometrial interface. The endometrial double wall thickness is 8.9 mm and is within normal limits. The right and left ovaries measure 4.4 x 2.1 x 1.8 cm and 4.5 x 3.3 x 2.9 cm, respectively. Predominately echogenic right ovarian echogenic lesion with some areas of small cysts measures 4.4 x 3.6 x 4.1 cm and correlates with a dermoid as seen on prior CT exam. There is an avascular crenulated 3.2 cm left ovarian structure which contains echogenic debris. Appropriate Doppler flow is appreciated to both ovaries. There is no free intraperitoneal fluid. IMPRESSION: No sonographic findings to suggest ovarian torsion. 4.4 cm right ovarian dermoid cyst. Probable 3.2 cm left ovarian corpus luteum. I have personally reviewed the images of this examination and agree with the resident's findings and interpretation. Interpreted by: Henrique Vazquez MD Preliminary Report By: Em Aragon Electronically signed By Henrique Vazquez MD Dictated Date: 12/06/2023 7:33:40 AM Prelim Date: 12/06/2023 7:45:05 AM Sign Date: 12/06/2023 8:20:24 AM Ordering Provider: [facility]10-29-2024 Note ORIGINAL EXAMINATION: CT OF THE ABDOMEN AND PELVIS WITH [id number]/29/2024 6:08 am TECHNIQUE: CT of the abdomen and pelvis was performed with the administration of intravenous contrast. Multiplanar reformatted images are provided for review. Automated exposure control, iterative reconstruction, and/or weight based adjustment of the mA/kV was utilized to reduce the radiation dose to as low as reasonably achievable. COMPARISON: CT abdomen pelvis 12/25/2021. HISTORY: ORDERING SYSTEM PROVIDED HISTORY: Reason for Exam: abdominal pain, FINDINGS: The included lung bases are clear. There is no visible pleural or pericardial effusion. The heart is normal in size. Hypoattenuation adjacent to the falciform ligament likely represents fatty infiltration. The liver is otherwise normal in contour and attenuation. No intrahepatic biliary ductal dilatation. Cholecystectomy. The spleen, pancreas, and adrenal glands are within normal limits. Symmetric nephrograms. No hydronephrosis. The ureters are normal in course and caliber. The urinary bladder is under distended. The uterus is within normal limits. Right ovarian lesion which appears to contain fat, soft tissue, and calcified material measures 3.5 cm, previously 2.2 cm. Probable corpus luteum in the left ovary. The large and small bowel demonstrate no obstruction. The appendix is not visualized. There is no pericecal inflammation. No free intraperitoneal fluid or gas is identified. The aorta is normal in caliber. No abdominopelvic lymphadenopathy. There is no acute fracture or aggressive osseous lesion. No acute soft tissue abnormality. IMPRESSION: No acute abdominopelvic process. Suspected dermoid in the right ovary has mildly enlarged when compared to exam CT 12/25/2021. I have personally reviewed the images of this examination and agree with the resident's findings and interpretation. Interpreted by: Henrique Vazquez MD Preliminary Report By: Em Aragon Electronically signed By Henrique Vazquez MD Dictated Date: 12/06/2023 6:18:04 AM Prelim Date: 12/06/2023 6:26:30 AM Sign Date: 12/06/2023 7:44:16 AM Ordering Provider: [facility]10-11-2024 Instructions* Patient Instructions* Tosin Sung APRN.SENIOR OCCUPATIONAL THERAPIST - 11/18/2023 3:58 PM EDT - Albuterol [...] sooner if symptoms worsen documented in this encounterKeen[facility]10-[facility]24 History of Present illness Narrative* Rik Yadav RT(Wendy) - 11/18/2023 3:20 PM EDT Radiology Service Progress Note PATIENT [...] PATIENT PRESENTS WITH AN IMPLANTABLE OR ATTACHED DIRECTOR TARGETED MARKETING: No RADIOLOGY DEPARTMENT: General X-ray: Exam(s) Completed: Chest X-Ray PERIPHERAL IV DATA: Not applicable SIGNED BY: HUMBERTO Maldonado) November 18, 2023 3:30 PM documented in this encounterKeenan Private Hospital10-11-2024 NoteHNO ID: [id number] Author: RIK YADAV RT(R) Service: ? Author Type: Yard Conductor Type: Progress Notes Filed: 11/18/2023 15:43 Note [...] PATIENT PRESENTS WITH AN IMPLANTABLE OR ATTACHED DIRECTOR TARGETED MARKETING: No RADIOLOGY DEPARTMENT: General X-ray: Exam(s) Completed: Chest X-Ray PERIPHERAL IV DATA: Not applicable SIGNED BY: RT Erica(Wendy) November 18, 2023 3:30 [facility]10-11-2024 NoteHNO ID: [id number] Author: TOSIN SUNG APRN.[facility] Service: ? Author Type: Nurse Practitioner Type: [...] verbalized understanding and agreement with this plan. Tosin Sung APRN.[facility]10-11-2024 History of Present illness Narrative* Tosin Sung APRN.SENIOR OCCUPATIONAL THERAPIST - 11/18/2023 3:19 PM EDT Patient presents with: Cough: Chest congestion and tightness x1 week, ST for first 2 days She feels the symptoms are more in her chest. She initially thought she was getting better. Cough Associated symptoms include headaches (occasional), rhinorrhea and sore throat. Pertinent negativesinclude no chills, no ear pain and no [...] verbalized understanding and agreement with this plan. Tosin Sung APRN.SENIOR OCCUPATIONAL THERAPIST documented in this encounterKeenan Private Hospital07-18-2024 NoteHNO ID: [id number] Author: BERYL VEGA MD Service: ? Author Type: Physician Type: Progress Notes Filed: 08/26/2023 16:39 Note Text: The patient presents for requested ultrasound. Full report available in the Imaging tab in [employer]. Beryl Vega [facility]07-18-2024 History of Present illness Narrative* Beryl Vega MD - 08/25/2023 11:37 PM EDT The patient presents for requested ultrasound. Full report available in the Imaging tab in [employer]. Beryl Vega MD documented in this encounterKeenan Private Hospital07-17-2024 NoteHNO ID: [id number] Author: ANSLEY IBRAHIM APRN.[facility] Service: ? Author Type: Combine Mechanic Type: Progress Notes Filed: 08/24/2023 12:33 Note Text: Chana De La O is a 22 year old female who presents for problem visit HPI: Here today for follow up from ED visit. Seen in ED at [facility] for abdominal pain. Dermoid cyst seen. [...] and going around back. general surgery at [facility], gallbladder removed. Can't keep anything down, [...] L2 SAB0 IAB0 Ectopic0 Multiple0 Live Births2 Harness Cleaner History LMP: 08/21/2023 (Exact Date), Having periods Age at Menarche: Age at First : Age at Menopause: Harness Cleaner History Comments: Sexual Activity: Yes; No partner [...] increased flatulence. No a (more content not included)...[facility]07-17-2024 History of Present illness Narrative* Ansley Ibrahim APRN.[facility] - 08/24/2023 10:46 AM EDT Chana De La O is a 22 year old female who presents for problem visit HPI: Here today for follow up from ED visit. Seen in ED at [facility] for abdominal pain. Dermoid cyst seen. Wanted to tell me her history from the beginning when pain started 2 years ago. After of first child 08/28, 3-4 wks after had D&C forretained membranes. Since that time feels she had problems. 2-3 wks after D&C had gallbladder removal. Since then non stop throwing up, pain from under breast, to pelvis and going around back. general surgery at [facility], gallbladder removed. Can't keep anything down, smell of food makes her nauseated. is GI doctor doing tests andall negative. Last appointment with was a month [...] L2 SAB0 IAB0 Ectopic0 Multiple0 Live Births2 Harness Cleaner History LMP: 08/21/2023 (Exact Date), Having periods Age at Menarche: Age at First : Age at Menopause: Harness Cleaner History Comments: Sexual Activity: Yes; No partner [...] mouth three times a day as needed forcough. (Patient not taking: Reported on 06/15/2023) ondansetron [...] external genitalia normal, normal Bartholin's glands, urethra, [place]'s glands, no vulvar lesions, no cervical lesions, [...] marijuana. Ansley Ibrahim APRN.CNM documented in this encounterKeenan [facility] Hospital06-13-2024 History of Present illness Narrative* Rik Yadav RT(R) - 07/21/2023 3:10 PM EDT Radiology Service Progress Note PATIENT [...] PATIENT PRESENTS WITH AN IMPLANTABLE OR ATTACHED DIRECTOR TARGETED MARKETING: No RADIOLOGY DEPARTMENT: General X-ray: Exam(s) Completed: Upper Extremity X- Ray(s): Fingers/Thumb, right Thumb PERIPHERAL IV DATA: Not applicable SIGNED BY: RT Erica(R) July 21, 2023 3:01 PM documented in this encounterKeenan Private Hospital06-13-2024 NoteHNO ID: [id number] Author: RIK YADAV RT(Wendy) Service: ? Author Type: Yard Conductor Type: Progress Notes Filed: 07/21/2023 15:09 Note [...] PATIENT PRESENTS WITH AN IMPLANTABLE OR ATTACHED DIRECTOR TARGETED MARKETING: No RADIOLOGY DEPARTMENT: General X-ray: Exam(s) Completed: Upper Extremity X-Ray(s): Fingers/Thumb, right Thumb PERIPHERAL IV DATA: Not applicable SIGNED BY: RT Erica(R) July 21, 2023 3:01 [facility]06-13-2024 NoteHNO ID: [id number] Author: WILFRID LAURA APRN.SENIOR OCCUPATIONAL THERAPIST Service: ? Author Type: Nurse Practitioner Type: Progress Notes Filed: 07/21/2023 15:29 Note Text: Subjective HPI Nontoxic-appearing female presents urgent care chief complaint right thumb injury. Patient states closed finger in a car door today. Presents today for evaluation. Swelling and bruising has developed. Denies any other injuries. Jfakd-xqca-ixqxcutx. No numbness no tingling. No decrease sensation. [...] focal deficit present. Me (more content not included)...[facility]06-13-2024 History of Present illness Narrative* Wilfrid Laura, JESS.[facility] - 07/21/2023 3:03 PM EDT Subjective HPI Nontoxic-appearing female presents urgent care chief complaint right thumb injury. Patient states closed finger in a car door today. Presents today for evaluation. Swelling and bruising has developed. Denies any other injuries. Qzvkq-fniw-loklngyf. No numbness no tingling. No decrease sensation. Noweakness. No breaks in skin. Denies any fever [...] mouth three times a day as needed forcough. (Patient not taking: Reported on 06/15/2023) ondansetron [...] patient's clinical presentation is otherwise unremarkable at thistime. Based on exam and clinical finding, the patient is stable for discharge. Plan of care was discussed with patient. Patient verbalizes understanding and agrees to plan of care. This note was generated using [employer] software. It may contain errors in wording, punctuation, or spelling. Wilfrid Laura APRN.SB documented in this encounterKeenan Private Hospital05-08-2024 History of Present illness Narrative* Paul Eubanks PA - 06/15/2023 10:33 AM EDT This note was created using britebill. Subjective Chana De La O is a [...] else for her symptoms. Patient is also reportingan increase in wheezing the past 2 days. She states she has a very mild cough, but more is just having wheezing. She states she has been sneezing a lot, feels like her allergies may be flaring up herasthma. She also ran out of her inhaler, [...] mouth three times a day as needed forcough. (Patient not taking: Reported on 06/15/2023) ondansetron [...] discussed in detail warranting prompt ER evaluation. ZKAI Conway documented in this encounterKeenan Private Hospital05-06-2024 Discharge summary Author Mark Guerrero [facility] June 13, 2023 8:56am Note Date/Time June 13, 2023 5:49am [facility] Medical Records Department [address] [place] [address] Emergency Department Summary 06/13/23 MR#: [id number] Acct: [id number] Name: CHANA DE LA O Rep #:[id number] : 2000 22 From: Doe Dominguez MD PCP: Care Physician,No Primary Status :REG ER Location: ED HPI HPI - GI History of Present Illness Chief Complaint: Abd Pain Narrative Narrative: 22-year-old female past medical history of irritable bowel syndrome, states thatshe has been dealing with what they think is gastroparesis for the last 2 years. She is being seen by Dr. Kowalski and is supposed to have upper and lower endoscopy to help determine what is going on with her gastroparesis. She statesthat she does not take anything for IBS because they are still doing testing. She started feeling badly yesterday afternoon at 4 PM, approximately 13-1/2 hours ago. She states her child woke up in the middle the night and since around 2 AM, 3 or 4 hours ago, she has had nausea and vomiting. She is still flatulent. She not having any problems with bowel movements such as diarrhea. She complains of diffuse abdominal pain, nausea, and vomiting. Past surgical history includes cholecystectomy and bilateral tubal ligation. Last menstrual period was last month. No exacerbating or alleviating factors. PFSH PFSH Medical History ADHD Anemia Anxiety Asthma Depression Depression affecting Encounter for induction of labor Gastroparesis History of IBS IBS (irritable bowel syndrome) IUGR (intrauterine growth restriction) Low iron Marijuana use Nausea & vomiting Rh negative state in antepartum period Syncope Upper abdominal pain Vaginal delivery Vapes nicotine containing substance Home Medications albuterol sulfate 90 mcg/actuation aerosol inhaler 2 inh inhalation PRN asthma #8.5 grams 05/15/23 [Rx Last Taken Unknown] Allergy/AdvReac Type Severity Reaction Status Date / Time No Known Allergies Allergy Verified 05/15/23 05:40 Family History Father Diabetes Mother Depression Grandmother Breast cancer Surgical History H/O dilation and curettage History of adenoidectomy History of cholecystectomy (~09/2021) History of esophagogastroduodenoscopy (EGD) Hx of tonsillectomy Tubal ligation status Social History household members: significant other Smoking Status: Current every day smoker tobacco type: cigarettes and e- cigarettes alcohol intake: never substance use type: marijuana ROS ROS ED ROS Narrative Constitutional: No fever, no chills. HEENT: No sore throat. No neck pain. No loss of vision. No rhinorrhea. Cardiovascular: No chest pain. No palpitations. No pedal edema. Respiratory: No cough, no shortness of breath. Abdominal: Positive abdominal pain. Nonstop nausea and vomiting. No problemswith bowel movements. Genitourinary: No dysuria. No hematuria. Musculoskeletal: No myalgias. No arthralgias. Neurologic: No headaches. No dizziness. No lightheadedness. Skin: No rash. No change in color. Psychiatric: No depression. No anxiety. EXAM Physical Exam Narrative Exam Narrative: Afebrile. Vital signs noted. HEENT: Normocephalic. Atraumatic. PERRL, EOMI. Neck soft and supple. No pointtenderness or step off. Cardiovascular: Mild tachycardia at 102 bpm. No murmurs, rubs, or gallops appreciated. Respiratory: No tachypnea. Lungs clear to auscultation bilaterally. Gastrointestinal: Abdomen soft, minimal diffuse tenderness to palpation with decreased bowel sounds. No rebound or guarding. Neurological: Awake. Alert. Nonfocal, nonlateralizing. Skin: No rash. Normal color. No pallor. Musculoskeletal: No pedal edema. Full range of motion extremities. Psychiatric: Tearful on examination. Const Vital Signs: 06/13/23 05:24 06/13/23 07:23 Temperature 97.7 F L 98.2 F Temperature Source Oral Temporal Pulse Rate 102 H 82 Respiratory Rate 18 16 Blood Pressure 158/70 H 130/69 H Blood Pressure Mean 99 89 Pulse Ox 96 97 Oxygen Delivery Method Room Air Room Air MDM MDM MDM Narrative Medical decision making narrative: I reviewed the patient's prior records. She has had problems with gastroparesisin the past specially when she was as she states. According to prior ED visits, Zofran had worked better than Reglan. However after ordering this, RN states that she took Zofran at home. Comprehensive workup was pursued. I will check lab see if she is dehydrated, and obtain a lipase to help rule out pancreatitis which is in the differential. Also the differential diagnosis would be bowel obstruction given her profuse nausea and vomiting. I do feel CT imaging is indicated. She will be bolused normal saline 1 L intravenously. I reviewed the patient's laboratory work and she has slightly elevated white count of 12.5, hemoglobin 13.7, hematocrit 41.3, platelet count normal at 343. Sodium is normal at 139, potassium 3.5, chloride normal at 107. BUN normal at 10 and creatinine 0.88. Glucose is appropriately elevated at 98. Serum is negative. Urine is negative for infection upon review. I do not feel antibiotics are indicated. Initially, as she had taken Zofran she states that the Reglan did not help her. She was administered Toradol for analgesia. She states this did not help her either. In review of her chart, she has been seen for cyclic vomiting. She was administered Ativan and Pepcid which seemed to relieve her symptoms. I have discussed patient with Dr. Kowalski, who recommended either Compazine or Haldol if the Ativan and Pepcid was ineffective. It was not felt that narcotic pain medication should treat her cyclic vomiting/gastroparesis type symptoms. At this point in time, patient signed outto Dr. Guerrero to check the CT scan. Now that she is improved and as well as her CT scan does not show evidence of obstruction or any acute pathology, I feelshe can be discharged to follow-up with gastroenterology. She is in stable condition. History & Record Review Discussion w/independent historian: Patient Lab Data Attestation: I reviewed the patient's lab results. Labs: Laboratory Results - last 24 hr 06/13/23 06/13/23 05:30 06:05 WBC 12.5 H RBC 5.08 Hgb 13.7 Hct 41.3 MCV 81.3 MCH 27.0 MCHC 33.2 RDW Std Deviation 41.1 RDW Coeff of Connor 14.2 Plt Count 343 MPV 11.0 Immature Gran % (Auto) 0.300 Neut % (Auto) 75.9 H Lymph % (Auto) 17.2 L Alpine % (Auto) 4.4 Eos % (Auto) 1.7 Baso % (Auto) 0.5 Absolute Neuts (auto) 9.5 H Absolute Lymphs (auto) 2.14 Nucleated RBC % 0 Sodium 139 Potassium 3.5 Chloride 107 Carbon Dioxide 25.0 Anion Gap 7 BUN 10 Creatinine 0.88 Estim Creat Clear Calc 115.31 Est GFR (MDRD) Af Amer 103 Est GFR (MDRD) Non-Af 85 BUN/Creatinine Ratio 11.3 Glucose 98 Calcium 8.8 Total Bilirubin 0.40 AST 14 L ALT 15 Alkaline Phosphatase 66 Total Protein 7.8 Albumin 3.9 Globulin 3.9 Albumin/Globulin Ratio 1.0 Lipase 22 Serum , Qual NEGATIVE Urine Color Yellow Urine Clarity Clear Urine pH 6.5 Ur Specific [place] 1.020 Urine Protein 30 H Urine Glucose (UA) Normal Urine Ketones 150 A* Urine Occult Blood Negative Urine Nitrite Negative Urine Bilirubin Negative Urine Urobilinogen 1 H Ur Leukocyte Esterase 25 H Urine RBC 0 SEEN Urine WBC 0 SEEN Ur Squamous Epith Cells 0-5 SEEN Urine Bacteria 0 SEEN Urine Mucus 0 SEEN Management Discussion w/another healthcare provider: Press Catcher (Dr. Kowalski, gastroenterology) Discharge Plan Triage Chief Complaint: Abd Pain ED Provider: Doe Dominguez Dx/Rx/DC Orders Prescriptions: No Action albuterol sulfate 90 mcg/actuation HFA aerosol inhaler 2 inh INHALATION PRN Qty: 8.5 0RF Primary Care Provider: Care Physician,No Primary Referrals: Care Physician,No Primary [Primary Care Provider] - What to do if you have Problems For any increased pain, shortness of breath, bleeding, nausea or vomiting, chestpain, or any unexpected problems, contact your Primary Care Provider. Call [facility] ([phone]) or report to the closest Emergency Room. Call 911 if necessary. 06/13/23 0802 <Electronically signed by Doe Dominguez MD> Cosigner Signature (if applicable): CC: No Primary Care Physician ~ Signed ADDENDUM by Dr. Mark Guerrero DO on 06/13/23 at 0856 Patient signed out to nj at 0730 for follow-up of her CT scan of the abdomen pelvis with IV contrast. Patient already been medicated with several medications for nausea and vomiting as well as abdominal pain. She was discussed with Dr. Kowalski who recommended follow-up as an outpatient as long as her workup was otherwise normal. Her labs are unremarkable with exception of a mild leukocytosis of 12.5. CT of the abdomen pelvis with IV contrast shows no acute process. Patient will be discharged home to follow-up as needed. Return precaution discussed. 06/13/23 0856<Electronically signed by Mark Guerrero DO> Cosigner Signature (if applicable): cc: No Primary Care Physician ~* Signed [facility] Work Phone: 1(491) 126-758504-25-2024 History of Present illness Narrative* Paul Eubanks PA - 06/02/2023 3:26 PM EDT This note was created using [employer]. Subjective Chana De La O is a [...] vomiting or diarrhea. She has been using dzgy-yqg-jqnmxtz cough and cold medication with minimal improvement. [...] mouth three times a day as needed forcough. predniSONE (DELTASONE) 20 mg tablet Take 2 [...] ER evaluation. ZAKI Conway documented in this encounterKeenan Private Hospital04-02-2024 History of Present illness Narrative* Sony Barrios PA-C - 05/10/2023 5:10 PM EDT This note was created using [employer] Therapeutics[employer]. Subjective Chana De La O is a [...] 6 hours as needed. 18 g 0 Bwaifqsqpojwtsu-Imwnosbhs-FV (BROMFED DM) 2-30-10 mg/5 mL syrup Take [...] or sooner if worsening of symptoms Sony Barrios PA-C documented in this encounterKeenan Private Hospital01-26-2024 History and physical note Author Kandis koenig [facility] March 04, 2023 11:08am Note Date/Time March 02, 2023 1 :09pm [facility] Medical Records Department [address] [place], [place] [address] [address] H&P Exam - REPAIRER AND CHECKER 03/02/23 1309 MR#: [id number] Acct: [id number] Name: CHANA DE LA O Rep #:[id number] : 2000 22 From: Angeline Chu MD PCP: Care Physician,No Primary Status :[facility] Location: [place] [address] History and Physical Date of Admission: 03/04/23 Pre-Op History and Physical ? HPI: The patient is a 22 year old female presenting for discussion of laparoscopic bilateral salpingectomy. Declines LARC. ? pre-operative visit. She is scheduled for laparoscopic bilateral salpingectomy, for desires sterilization on 03/04/22. Procedure discussed along with risks, benefits and complications. Other alternatives discussed for management. Consent form signed? Yes. ? ? PAST MEDICAL HISTORY PAST MEDICAL HISTORY Diagnosis Date ? ADHD (attention deficit hyperactivity disorder) ? ? Anemia ? ? Asthma ? ? Gastroparesis ? ? IBS (irritable bowel syndrome) ? ? PCOS (polycystic ovarian syndrome) ? ? Placental abruption in third trimester 12/27/2022 ? Reactive airway disease ? ? inhaler use with URIs ? ? PAST SURGICAL HISTORY PAST SURGICAL HISTORY Procedure Laterality Date ? D&C SUCTION ? 08/31/2021 ? Retained POC after 08/11/21 vaginal delivery ? REMOVAL GALLBLADDER ? ? ? REMOVE TONSILS/ADENOIDS,12+ Y/O ? 2018 ? ? ? CURRENT MEDICATIONS Current Outpatient Medications Medication Sig Dispense Refill ? ondansetron (ZOFRAN) 8 mg tablet Take by mouth three times a day as needed. ? ? ? prochlorperazine (COMPAZINE) 10 mg tablet Take 10 mg by mouth once daily. ? ? ? vit/iron fum/folic ac ( 1 + 1 ORAL) Take by mouth. (Patient not taking: Reported on 11/15/2022) ? ? ? ondansetron orally disintegrating (ZOFRAN ODT) 4 mg disintegrating tablet TAKE 2 TABLETS BY MOUTH EVERY 8 HOURS NEEDED FOR NAUSEA ? ? ? ferrous sulfate 325 mg (65 mg iron) tablet Take by mouth. ? ? ? albuterol HFA (PROAIR HFA) 90 mcg/actuation inhaler Inhale 2 Puffs as instructed every 6 hours as needed. 18 g 0 ? No current facility-administered medications for this visit. ? ? ALLERGIES: Seasonal Allergies ? PERSONAL HISTORY: SOCIAL HISTORY Social History ? Tobacco Use ? Smoking status: Former ? ? Years: 8 ? ? Types: Cigarettes ? ? Quit date: 11/08/2022 ? ? Years since quittin.2 ? ? Passive exposure: Past ? Smokeless tobacco: Never ? Tobacco comments: ? ? vape Vaping Use ? Vaping Use: Some days ? Substances: Nicotine Substance Use Topics ? Alcohol use: Never ? Drug use: Not Currently ? ? Types: Marijuana ? FAMILY HISTORY: FAMILY HISTORY FAMILY HISTORY Problem Relation Age of Onset ? No Known Problems Mother ? ? Diabetes Father ? ? No Known Problems Sister ? ? Breast Cancer Maternal Grandmother ? ? Obstructive Sleep Apnea Maternal Grandfather ? ? Diabetes Paternal Grandfather ? ? No Known Problems Half-brother ? ? No Known Problems Daughter ? ? ? REVIEW OF SYMPTOMS: Denies Fever PHYSICAL EXAMINATION: ? VITALS: Blood pressure 110/60, weight 194 lb (88 kg), last menstrual period 03/23/2022, not currently . ? GENERAL: The patient is well nourished, well hydrated in no acute distress. , The patient is oriented to time, place, and person. NECK: Supple. No lynphadenopathy, normal thyroid, no thyromegaly. LUNGS: Clear to auscultation bilaterally. no wheezes, rhonchi or rales HEART: Regular rate and rhythm, Normal heart sounds, and No murmurs or gallops GENITALIA: Normal external genitalia, Urethral meatus normal, Bladder nontender,normal vagina and normal vaginal tone, normal cervix, normal uterus, size and consistency, normal adnexa without masses or tenderness, and perineum WNL WET PREP: Not indicated ? IMPRESSION: 22yo desires sterilization ? PLAN: laparoscopic bilateral salpingectomy ? Pt has been counseled on risks/benefits and alternatives of surgery including but not limited to anesthesia, bleeding, infection, injury to pelvic structures including bowel, bladder, ureters and vessels. Pt wishes to proceed with surgery at this time. Risk of regret discussed with patient. Pelvic exam reviewed with patient. ? Pre and post op instructions reviewed ? ? I have reviewed and updated past medical and surgical history, medications and allergies Angeline Chu MD 03/02/23 1309 <Electronically signed by Angeline Del Castillo MD> Cosigner Signature (if applicable): CC: Kandis Del Castillo; No Primary Care Physician~ Signed ADDENDUM by M Dr. Angeline Del Castillo on 03/04/23 at 1108 Addendum I have examined the patient and the H&P has been reviewed. There are no clinicalchanges since date of exam. 03/04/23 1108<Electronically signed by Angeline Del Castillo MD> Cosigner Signature (if applicable): cc: Kandis Del Castillo; No Primary Care Physician ~* Signed [facility] Work Phone: 1(987) 262-973201-26-2024 Procedure [facility] 02-09-2023 Miscellaneous Notes* Telephone Encounter - Stephanie Boateng RN - 02/09/2023 11:42 AM EST Patient notified. Agreeable to appointment change. Cancelled her visit on 02/28. Stephanie Boateng, RN * Telephone Encounter - Trista Brown LPN - 02/09/2023 9:43 AM EST Left message to call office. Patient is scheduled for surgery 03/04/2023 at [facility]. Please ask patient if she can come in for appointment and pre-op appointment on 02/23/2023 at 9:50 am. Patient has an appointment scheduled on 02/28 for a visit but only a 10 min appt. and will need at least 20 min for both [facility] History of Present illness Narrative* Stephanie Boateng RN - 01/19/2023 8:27 AM EST Patient delivered via at [facility] on 01/18/23 per Ansley Ibrahim CNM. See OB Outcome note. Stephanie Boateng RN documented in this [facility]12[facility]23 Miscellaneous Notes* Quick Notes - Donna Granados MD - 01/17/2023 5:17 PM EST RR- VB No. LOF No. CTXS irreg Movement: present. Other c/o: abdominal pain that is normal forher even prepregnancy Medication list reviewed. Physical Exam See Flow Sheet Abd: soft, nontender, gravid Ext: edema: Trace A/P 37w5d Estimated Date of Delivery: 02/02/23 r/ba to induction for IUGR reviewed, questions answered, consent signed. BPP 09/14 today. . Donna Granados M.D. documented in this [facility]12-11-2023 Instructions* Patient Instructions* Danitza Hunter MA - 01/17/2023 12:09 PM EST SEQUENTIAL SCREENINGS [facility] offers sequential screenings for women who are [...] testing. It will require an appointment withour broadcast operations technician. This is not an ultrasound performed [...] the above symptoms, contact our office at [phone] and ask to speak with anurse. After hours, you can call doctors registry at [phone] OR call [facility] at [phone] ask to have the doctor educational psychology professor paged. If you consider this an emergency, dial 0-1-5 or go to your nearest emergency department. NEED HELP? Are you dealing with a violent or abusive relationship? Are you a victim of rape or sexual assult? Call [facility] ([place]) 24 hour Crisis Hotline: 172.977.9497 or 330-587-4044. MANUAL Your Guide to a Healthy manual is now on-line. Visit [email or web address] to download your free copy documented in this [facility]Ke[facility]12-[facility]23 History of Present illness Narrative* Pablo Mckeon MD - 01/13/2023 11:48 AM EST NST SUMMARY PROVIDER ASSESSMENT AND INTERPRETATION Chana De La O is a 22 year old female, , who is at 37w1d with an CHAN of 02/02/2023, by Ultrasound dating method. Indications for NST: IUGR Baseline: 130 Variability: Moderate Accelerations: Present 15 X 15 Decelerations: None Contractions: TOCO: None Interpretation: Reactive SIGNATURE: Pablo Mckeon MD documented in this [facility]Ke[facility]12-07-2023 Miscellaneous Notes* Quick Notes - Pablo Mckeon MD - 01/13/2023 11:47 AM EST KJ - VB No. LOF No. CTXS [...] US Labor precautions reviewed, Kick counts reviewed. Pablo Mckeon MD documented in this [facility]Ke[facility]12-07-2023 Instructions* Patient Instructions* Danitza Hunter MA - 01/13/2023 10:46 AM EST SEQUENTIAL SCREENINGS [facility] offers sequential screenings for women who are [...] testing. It will require an appointment withour broadcast operations technician. This is not an ultrasound performed [...] the above symptoms, contact our office at [phone] and ask to speak with anurse. After hours, you can call doctors registry at [phone] OR call [facility] at [phone] ask to have the doctor educational psychology professor paged. If you consider this an emergency, dial or go to your nearest emergency department. NEED HELP? Are you dealing with a violent or abusive relationship? Are you a victim of rape or sexual assult? Call [facility] ([place]) 24 hour Crisis Hotline: 212.568.9182 or 943-178-4408. MANUAL Your Guide to a Healthy manual is now on-line. Visit [email or web address] to download your free copy documented in this encounterKe[facility]12-05-2023 Miscellaneous Notes* Telephone Encounter - Donna Granados MD - 01/11/2023 12:11 PM EST noted and that is an option. Thanks. Donna Granados MD * Telephone Encounter - Nadia Wilkins LPN - 01/11/2023 11:18 AM EST Contacted pt with below message. Pt very angry and stated that she did not feel that this is a goodreason for induction. Pt wanting to wait until her appointment on and further discuss at that time. Pt stated all this is the same as her previous and everything was just fine. Nadia Wilkins LPN * Telephone Encounter - Donna Granados MD - 01/11/2023 11:12 AM EST Please let her know that I discussed [...] and Tuesday are full except for emergencies. Donna Granados MD documented in this [facility]12-04-2023 History of Present illness Narrative* Donna Granados MD - 01/10/2023 10:43 AM EST NST SUMMARY PROVIDER ASSESSMENT AND INTERPRETATION Chana De La O is a 22 year old female, , who is at 36w5d with an CHAN of 02/02/2023, by Ultrasound dating method. Indications for NST: IUGR Baseline: 135 Variability: Moderate Accelerations: Present 15 X 15 Decelerations: None Contractions: TOCO: None Interpretation: Category I and Reactive SIGNATURE: Donna Granados MD documented in this [facility]12-04-2023 Miscellaneous Notes* Quick Notes - Donna Granados MD - 01/10/2023 10:43 AM EST NST only Donna Granados MD documented in this [facility]11-29-2023 Miscellaneous Notes* Quick Notes - Danni Reynolds APRN.CNM - 01/05/2023 2:53 PM EST Chana De La O is a 22 [...] in third trimester, single or unspecified fetus- ICD9: 656.53, ICD10: O36.5930 3. Supervision of [...] needed. Danni Reynolds APRN.CNM documented in this encounterKe[facility]11-29-2023 Instructions* Patient Instructions* Trista Brown LPN - 01/05/2023 2:41 PM EST SEQUENTIAL SCREENINGS [facility] offers sequential screenings for women who are [...] testing. It will require an appointment withour broadcast operations technician. This is not an ultrasound performed [...] the above symptoms, contact our office at [phone] and ask to speak with anurse. After hours, you can call doctors registry at [phone] OR call [facility] at [phone] ask to have the doctor educational psychology professor paged. If you consider this an emergency, dial 0-9-0 or go to your nearest emergency department. NEED HELP? Are you dealing with a violent or abusive relationship? Are you a victim of rape or sexual assult? Call [facility] ([place]) 24 hour Crisis Hotline: 250.514.3046 or 392-695-1623. MANUAL Your Guide to a Healthy manual is now on-line. Visit [email or web address] to download your free copy documented in this encounterKe[facility]11-24-[facility]23 History of Present illness Narrative* Angeline Parnell MD - 12/31/2022 4:01 PM EST NST SUMMARY PROVIDER ASSESSMENT AND INTERPRETATION Chana De La O is a 22 year old female, , who is at 35w2d with an CHAN of 02/02/2023, by Ultrasound dating method. Indications for NST: IUGR Baseline: 140 Variability: Moderate Accelerations: Present 15 X 15 Decelerations: None Contractions: TOCO: None Interpretation: Category I and Reactive SIGNATURE: Angeline Del Castillo MD documented in this encounterKeenan [facility] Hospital11-24-2023 Miscellaneous Notes* Quick Notes - Angeline Parnell MD - 12/31/2022 4:00 PM EST NST only. documented in this encounterKeenan [facility] Hospital11-24-2023 Instructions* Patient Instructions* Cindy Rick Ma - 12/31/2022 2:56 PM EST SEQUENTIAL SCREENINGS [facility] offers sequential screenings for women who are [...] testing. It will require an appointment withour broadcast operations technician. This is not an ultrasound performed [...] the above symptoms, contact our office at [phone] and ask to speak with anurse. After hours, you can call doctors registry at [phone] OR call [facility] at [phone] ask to have the doctor educational psychology professor paged. If you consider this an emergency, dial 8-5-3 or go to your nearest emergency department. NEED HELP? Are you dealing with a violent or abusive relationship? Are you a victim of rape or sexual assult? Call [facility] ([place]) 24 hour Crisis Hotline: 746.838.8484 or 359-564-7357. MANUAL Your Guide to a Healthy manual is now on-line. Visit [email or web address] to download your free copy documented in this encounterKeenan [facility]11-21-2023 History of Past illness Narrative* Problem Noted [...] BPP = 8/8 9. Normal female genitalia. [facility] Plan of Care Diagnosis: Early growth restriction (AC <10th percentile). Declined aneuploidy screening, maternal infectious serologies, and invasive testing. Plan: 1. Continued obstetrical care with her primary meat cutter is recommended. 2. Follow up q2 weeks to evaluate biometric parameters and q4 weeks to evaluate anatomy. These [facility] planned with the [facility]. 3. surveillance as follows: twice weekly BPP with weekly UA Doppler assessment. These are planned with the [facility](BPP)/ her primary meat cutter(BPP or NST). 4. consultation with Neonatology has [...] of this encounter (statuses as of 12/28/2022) [facility] of Past illness Narrative* Problem Noted [...] 1. Continued obstetrical care with her primary meat cutter is recommended. 2. Follow up q2 weeks to evaluate biometric parameters and q4 weeks to evaluate anatomy. These are planned with the [facility]. 3. surveillance as follows: twice weekly BPP with weekly UA Doppler assessment. These are planned with the Treatment Center([facility])/ her primary meat cutter(BPP or NST). 4. consultation with Neonatology has [...] of this encounter (statuses as of 12/28/2022) [facility] of Past illness Narrative* Problem Noted [...] BPP = 8/8 9. Normal female genitalia. [facility] Plan of Care Diagnosis: Early growth restriction (AC <10th percentile). Declined aneuploidy screening, maternal infectious serologies, and invasive testing. Plan: 1. Continued obstetrical care with her primary meat cutter is recommended. 2. Follow up q2 weeks to evaluate biometric parameters and q4 weeks to evaluate anatomy. These are planned with the [facility]. 3. surveillance as follows: twice weekly BPP with weekly UA Doppler assessment. These are planned with the [facility](BPP)/ her primary meat cutter(BPP or NST). 4. consultation with Neonatology has [...] of this encounter (statuses as of 12/31/2022) [facility] of Past illness Narrative* Problem Noted [...] living intrauterine at 31w 5d by clinical CHNA. 2. Intrauterine growth restriction, estimated weight 1503 [...] 1. Continued obstetrical care with her primary meat cutter is recommended. 2. Follow up q2 weeks to evaluate biometric parameters and q4 weeks to evaluate anatomy. These are planned with the [facility]. 3. surveillance as follows: twice weekly BPP with weekly UA Doppler assessment. These are planned with the [facility](P)/ her primary meat cutter(BPP or NST). 4. consultation with Neonatology has [...] of this encounter (statuses as of 01/06/2023) [facility] of Past illness Narrative* Problem Noted [...] BPP = 8/8 9. Normal female genitalia. [facility] Plan of Care Diagnosis: Early growth restriction (AC <10th percentile). Declined aneuploidy screening, maternal infectious serologies, and invasive testing. Plan: 1. Continued obstetrical care with her primary meat cutter is recommended. 2. Follow up q2 weeks to evaluate biometric parameters and q4 weeks to evaluate anatomy. These are planned with the [facility]. 3. surveillance as follows: twice weekly BPP with weekly UA Doppler assessment. These are planned with the [facility](BPP)/ her primary meat cutter(BPP or NST). 4. consultation with Neonatology has [...] of this encounter (statuses as of 01/06/2023) [facility] Narrative* Problem Noted [...] 1. Continued obstetrical care with her primary meat cutter is recommended. 2. Follow up q2 weeks to evaluate biometric parameters and q4 weeks to evaluate anatomy. These are planned with the [facility]. 3. surveillance as follows: twice weekly BPP with weekly UA Doppler assessment. These are planned with the [facility](BPP)/ her primary meat cutter(BPP or NST). 4. consultation with Neonatology has [...] of this encounter (statuses as of 01/10/2023) [facility] Narrative* Problem Noted [...] 1. Continued obstetrical care with her primary meat cutter is recommended. 2. Follow up q2 weeks to evaluate biometric parameters and q4 weeks to evaluate anatomy. These are planned with the [facility]. 3. surveillance as follows: twice weekly BPP with weekly UA Doppler assessment. These are planned with the [facility](BPP)/ her primary meat cutter(BPP or NST). 4. consultation with Neonatology has [...] of this encounter (statuses as of 01/11/2023) [facility] Narrative* Problem Noted [...] 1. Continued obstetrical care with her primary meat cutter is recommended. 2. Follow up q2 weeks to evaluate biometric parameters and q4 weeks to evaluate anatomy. These are planned with the [facility]. 3. surveillance as follows: twice weekly BPP with weekly UA Doppler assessment. These are planned with the [facility](BPP)/ her primary meat cutter(BPP or NST). 4. consultation with Neonatology has [...] of this encounter (statuses as of 01/11/2023) [facility] Narrative* Problem Noted [...] 1. Continued obstetrical care with her primary meat cutter is recommended. 2. Follow up q2 weeks to evaluate biometric parameters and q4 weeks to evaluate anatomy. These are planned with the [facility]. 3. surveillance as follows: twice weekly BPP with weekly UA Doppler assessment. These are planned with the [facility](BPP)/ her primary meat cutter(BPP or NST). 4. consultation with Neonatology has [...] of this encounter (statuses as of 01/13/2023) [facility] Narrative* Problem Noted [...] BPP = 8/8 9. Normal female genitalia. [facility] Plan of Care Diagnosis: Early growth restriction (AC <10th percentile). Declined aneuploidy screening, maternal infectious serologies, and invasive testing. Plan: 1. Continued obstetrical care with her primary meat cutter is recommended. 2. Follow up q2 weeks to evaluate biometric parameters and q4 weeks to evaluate anatomy. These are planned with the [facility]. 3. surveillance as follows: twice weekly BPP with weekly UA Doppler assessment. These are planned with the [facility](P)/ her primary meat cutter(BPP or NST). 4. consultation with Neonatology has [...] of this encounter (statuses as of 01/18/2023) [facility] Narrative* Problem Noted [...] 1. Continued obstetrical care with her primary meat cutter is recommended. 2. Follow up q2 weeks to evaluate biometric parameters and q4 weeks to evaluate anatomy. These are planned with the [facility]. 3. surveillance as follows: twice weekly BPP with weekly UA Doppler assessment. These are planned with the [facility](BPP)/ her primary meat cutter(BPP or NST). 4. consultation with Neonatology has [...] of this encounter (statuses as of 01/19/2023) [facility] Narrative* Problem Noted [...] BPP = 8/8 9. Normal female genitalia. [facility] Plan of Care Diagnosis: Early growth restriction (AC <10th percentile). Declined aneuploidy screening, maternal infectious serologies, and invasive testing. Plan: 1. Continued obstetrical care with her primary meat cutter is recommended. 2. Follow up q2 weeks to evaluate biometric parameters and q4 weeks to evaluate anatomy. These are planned with the [facility]. 3. surveillance as follows: twice weekly BPP with weekly UA Doppler assessment. These are planned with the Treatment [facility])/ her primary meat cutter(BPP or NST). 4. consultation with Neonatology has [...] of this encounter (statuses as of 03/28/2023) [facility] Narrative* Problem Noted [...] 1. Continued obstetrical care with her primary meat cutter is recommended. 2. Follow up q2 weeks to evaluate biometric parameters and q4 weeks to evaluate anatomy. These are planned with the [facility]. 3. surveillance as follows: twice weekly BPP with weekly UA Doppler assessment. These are planned with the [facility](BPP)/ her primary meat cutter(BPP or NST). 4. consultation with Neonatology has [...] of this encounter (statuses as of 05/11/2023) [facility] of Present [facility] Narrative* Rudolph Roy MD - 12/28/2022 10:28 AM EST OBSTETRICS [...] was not noted. IMPRESSION: Reactive NST. Rudolph Roy MD SIGNATURE: Rudolph Roy MD PATIENT NAME: Chana De La O DATE: December 28, 2022 TIME: 10:28 AM * Rudolph Roy MD - 12/28/2022 9:19 AM EST OBSTETRICS [...] consult secondary to IUGR. Recently discharged from [facility] for vaginal bleeding in 3rd trimester. I [...] Multiple0 Live Births1 Name of Baby 1: [place] Date: 08/11/21 GA: 40w4d Delivery: Vaginal, Spontaneous [...] antepartum 11/15/2022 Overview Note: - Transfer from [place] to [place]. records added by [place] Gastropares[facility] 11/15/2022 Overview Note: - Diagnosed with [...] weeks if <10% and >3% SIGNATURE: Rudolph Roy MD PATIENT NAME: Chana De La O DATE: December 28, 2022 TIME: 9:20 AM documented in this [facility]11-21-2023 History of Present illness Narrative* Ansley Ibrahim [...] SIGNATURE: Ansley Ibrahim APRN.CNM documented in this [facility]11-21-2023 Miscellaneous Notes* Quick Notes - Ansley Ibrahim APRN.CNM - 12/28/2022 10:20 AM EST BERTHA-NST only. PN visit end of week. Ansley Ibrahim APRN.CNM documented in this [facility]11-20-2023 NoteHNO ID: [id number] Author: Courtney Gipson MD Service: Obstetrics Author Type: Physician Type: Procedures Filed: 12/27/2022 1:11 PM Note Text: OBSTETRICS NST SUMMARY SERVICE DATE: December 27, 2022 The patient is a 22 year old female, , who is at 34w5d with an CHAN of 02/02/2023, by Ultrasound dating method. NST OBJECTIVE FINDINGS PER NURSE: Start Time: 07 (12/27/22 0800 : Katherine Mabry, RN) Complete Time: 0800 (12/27/22 0800 : Katherine Mabry RN) Indications: Other: Comment (previous vag bleed) (12/27/22799 : Katherine Mabry RN) Patient Reason For: monitor FHR (12/27/22799 : Katherine Mabry RN) NST Explanation: Procedure Explained;Monitor Explained;Verbalizes Understanding (12/27/22799 : Katherine Mbary RN) Acoustic Stimulator: No (12/27/22799 : Katherine Mabry RN) Interventions: MONITORING/ASSESSMENT: Baseline: 135 bpm (12/27/22799 : Katherine Mabry RN) Variability: Moderate (6-25 bpm) (12/27/22799 : Katherine Mabry RN) Accelerations: Present (12/27/22799 : Katherine Mabry RN) Decelerations: Decelerations: None (12/27/22799 : Katherine Mabry RN) Contractions: Not present (12/27/22799 : Katherine Mabry RN) Frequency: Above information forwarded to Blaise (12/27/22799 : Katherine Mabry RN) for final review and interpretation. SIGNATURE: Katherine Mabry RN PATIENT NAME: Chana De La O DATE: December 27, 2022 TIME: 8:18 AM Reactive.Courtney Gipson, [facility]11-20-2023 NoteHNO ID: [id number] Author: Rudolph Roy MD Service: Obstetrics Author Type: Physician Type: [...] antepartum 11/15/2022 Overview Note: - Transfer from [place] to [place]. records added by [place] Gastrop[facility] 11/15/2022 Overview [...] for discharge today. Will follow up in [facility] for continued testing. I spent 35 min of floor unit time on this discharge. BP has been normal. Rudolph Roy, [facility]11-19-2023 NoteHNO ID: [id number] Author: Brittany Tubbs RN Service: Nursing Author [...] 8:55 [facility]11-19-2023 NoteHNO ID: [id number] Author: Svetlana Amador RN Service: Nursing Author [...] Start Time: 1138 (12/26/22 1200 : Svetlana Amador RN) Complete Time: 1200 (12/26/22 1200 : Svetlana Amador RN) Indications: Other: Comment (vaginal bleeding) (12/26/22 1200 : Svetlana Amador RN) Patient Reason For: monitor baby (12/26/22 1200 : Svetlana Amador RN) NST Explanation: Procedure Explained;Monitor Explained;Verbalizes Understanding (12/26/22 1200 : Svetlana Amador RN) Acoustic Stimulator: No (12/26/22 1200 : Svetlana Amador RN) Interventions: (none) (12/26/22 1200 : Svetlnaa Amador RN) MONITORING/ASSESSMENT: Baseline: 135 bpm (12/26/22 1200 : Svetlana Amador RN) Variability: Moderate (6-25 bpm) (12/26/22 1200 : Svetlana Amador RN) Accelerations: Present (12/26/22 1200 : Svetlana Amador RN) Decelerations: Decelerations: None (12/26/22 1200 : Svetlana Amador RN) Contractions: Not present (12/26/22 1200 : Svetlana Amador RN) Frequency: Above information forwarded to Dr. Irwni (12/26/22 1200 : Svetlana Amador RN) for final review and interpretation. SIGNATURE: Svetlana Amador RN PATIENT NAME: Chana De La O DATE: December 26, 2022 TIME: 12:34 [facility]11-19-2023 NoteHNO ID: [id number] Author: Negin Yancey DO Service: Obstetrics Author [...] antepartum 11/15/2022 Overview Note: - Transfer from [place] to [place]. records added by [place] Gastroparesis 11/15/2022 Overview Note: - Diagnosed with [...] 5:17 [facility]11-18-2023 NoteHNO ID: [id number] Author: Xenia Rivera RN Service: Nursing Author [...] RN) Complete Time: 1750 (12/25/221750 : Xenia Rivera, STEVENSON) Indications: Other: Comment (Previous Vaginal bleeding) (12/25/221750 : Xenia Rivera, STEVENSON) Patient Reason For: to monitor baby (12/25/221750 : Xenia Rivera, STEVENSON) NST Explanation: Procedure Explained;Monitor Explained;Verbalizes Understanding (12/25/221750 : Xenia Rivera, STEVENSON) Acoustic Stimulator: None Interventions: Reposition (12/25/221750 : [...] RN) Frequency: Above information forwarded to Alida (12/25/221750 : Xenia Rivera RN) for final review and interpretation. SIGNATURE: Xenia Rivera RN PATIENT NAME: Chana De La O DATE: December 25, 2022 TIME: 6:05 [facility]11-18-2023 NoteHNO ID: [id number] Author: Xenia Rivera RN Service: Nursing Author [...] 11:41 [facility]11-18-2023 NoteHNO ID: [id number] Author: Svetlana Gutierrez MD Service: Obstetrics Author [...] antepartum 11/15/2022 Overview Note: - Transfer from [place] to [place]. records added by [facility] 11/15/2022 Overview [...] 5:04 [facility]11-17-2023 NoteHNO ID: [id number] Author: Brittany Tubbs RN Service: Nursing Author Type: Registered Nurse Type: Procedures Filed: 12/24/2022 8:19 PM Note Text: Attestation signed by Angeline Parnell MD at 12/24/2022 9:32 PM PROVIDER INTERPRETATION: [...] 8:18 [facility]11-17-2023 NoteHNO ID: [id number] Author: Svetlana Gutierrez MD Service: Obstetrics Author Type: Resident Type: Progress Notes Filed: 12/24/2022 6:14 AM Note Text: Attestation signed by Christian Mondragon DO at 12/24/2022 4:13 PM MFM Attending Note I saw and evaluated the patient. I agree with the resident's findings and plan of care as documented below. Chana is a 2 y/o at 34w2d transported from [place] last evening for new onset VB. also complicated by FGR, vaping/marijuana use, depression, and gastroparesis. Reports large gush of blood yesterday morning that persisted until she arrived at [place]. In addition, she was reporting uterine cramping. [...] consult complete. Indications for delivery were reviewed. BMZ course completed today. All of her questions [...] antepartum 11/15/2022 Overview Note: - Transfer from [place] to [facility]. records added by [facility] Gastroparesis 11/15/2022 Overview Note: - Diagnosed with [...] NAME: Chana Macias Ra (more content not included)...[facility]11-16-2023 NoteHNO ID: [id number] Author: Dania Ozuna MD Service: Obstetrics Author [...] Patient or surrogate does not consent to testing.[facility]11-16-2023 Miscellaneous Notes* Telephone Encounter - Angel Rivera RN - 12/23/2022 12:09 PM EST 34w1d Called in c/o large gush of blood that occurred when she went to stand up just prior to phone call.Soaked through all clothes. No pain or contractions. No other complaints. Good movement this morning. She is going straight to L&D. L&D and SW both notified. Angel Rivera RN documented in this encounterKe[facility]11-[facility]23 Miscellaneous Notes* Quick Notes - Svetlana Schaeffer [...] delivery for rule out SROM. Svetlana Schaeffer APRN.SB documented in this encounterKeenan [facility] Hospital11-13-2023 Instructions* Patient Instructions* Nadia Wilkins LPN - 12/20/2022 3:27 PM EST SEQUENTIAL SCREENINGS [facility] offers sequential screenings for women who are [...] testing. It will require an appointment withour broadcast operations technician. This is not an ultrasound performed [...] the above symptoms, contact our office at [phone] and ask to speak with anurse. After hours, you can call doctors registry at [phone] OR call [facility] at [phone] ask to have the doctor educational psychology professor paged. If you consider this an emergency, dial 8-0-8 or go to your nearest emergency department. NEED HELP? Are you dealing with a violent or abusive relationship? Are you a victim of rape or sexual assult? Call [facility] ([place]) 24 hour Crisis Hotline: 168.692.4115 or 781-004-5211. MANUAL Your Guide to a Healthy manual is now on-line. Visit [email or web address] to download your free copy documented in this encounterKeenan Private Hospital11-01-2023 Miscellaneous Notes* Telephone Encounter - Stephanie Boateng RN - 12/08/2022 12:42 PM EDT Patient notified. States that her boyfriend has her car and she won't be able to make it until after 3PM. Encouraged patient to find other transportation. Updated H&P faxed to l&D. CP to updated [facility] nursing staff as they called to speak with her. Stephanie Boateng RN * Telephone Encounter - Danni Reynolds APRN.MISSY - 12/08/2022 12:24 PM EDT Patient should [...] proceed. Nadia Wilkins LPN documented in this encounterKeenan [facility] Hospital10-30-2023 Miscellaneous Notes* Quick Notes - Ansley Ibrahim APRN.CNM - 12/06/2022 4:45 PM EDT YAZANS: Chana De La O is a 21 [...] signed. Ansley Ibrahim APRN.CNM documented in this encounterKeenan Private Hospital10-30-2023 Instructions* Patient Instructions* Davi Gomez Cma - 12/06/2022 4:28 PM EDT SEQUENTIAL SCREENINGS [facility] offers sequential screenings for women who are [...] testing. It will require an appointment withour broadcast operations technician. This is not an ultrasound performed [...] the above symptoms, contact our office at [phone] and ask to speak with anurse. After hours, you can call doctors registry at [phone] OR call [facility] at [phone] ask to have the doctor educational psychology professor paged. If you consider this an emergency, dial 9-1-1 or go to your nearest emergency department. NEED HELP? Are you dealing with a violent or abusive relationship? Are you a victim of rape or sexual assult? Call [facility] ([place]) 24 hour Crisis Hotline: 992.905.4725 or 739-359-3808. MANUAL Your Guide to a Healthy manual is now on-line. Visit [email or web address] to download your free copy documented in this encounterKeenan Private Hospital10-16-2023 Miscellaneous Notes* Quick Notes - Danni Reynolds APRN.CNM - 11/22/2022 1:39 PM EDT Patient is at 29.5 weeks gestation here for NOB. She is a transfer patient from [place]. See progress note. Danni Reynolds APRN.CNM documented in this encounterKeenan Private Hospital10-16-2023 Instructions* Patient Instructions* Devorah Francois Ma - 11/22/2022 12:50 PM EDT Please select the following link to access the [facility] Your Guide to a Healthy . [email or web address] documented in this encounterKeenan Private Hospital10-16-2023 History of Present illness Narrative* Danni Reynolds APRN.CNM - 11/22/2022 12:48 PM EDT Images from the original note were not included. INITIAL OB ASSESSMENT- TRANSFER FROM [place] [facility] Provider: Danni Reynolds APRN.CNM HPI: Chana [...] No Multivitamin with Folic acid: Not taking Jainism or heritage: No Would refuse blood transfusion if medically necessary: No Are you currently employed? 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 Discussed how to access Your guide to a health and the Rad Technologist. Reviewed midwifery and publicity director services that are available. Follow up in 2 weeks or sooner prn. Danni Reynolds APRN.CNM documented in this encounterKeenan Private Hospital10-09-2023 Miscellaneous Notes* Quick Notes - Luis Manuel [...] other child. Patient is transferring care from [place]. We have received her records and they are sent to Danni Reynolds for review. Patient's last visit with [facility] was October 20. Patient states she was [...] a suicidal attempt and was hospitalized in [place] as a teenager. She states that she had counseling in the past but none since age 18. She denies any history of depression.Pt states she quit smoking 1 week ago. States that she occ asionally vapes nicotine. Discussed risks of continued use in and advised patient to quit. Information for [place] tobacco quit line given to patient. Patient [...] any food or fluids down in a 24- hour period. Luis Manuel Macias RN documented in this encounterKeenan Private Hospital10-09-2023 History of Past illness Narrative* Problem Noted Date Diagnosed Date Resolved Date Nausea and vomiting in 11/15/2022 12/23/2022 Overview: 11/15/2022atient is complaining of nausea and occasional vomiting in . Dietary considerations discussed . Advised patient to call/come in if she is unable to keep any food or fluids down in a 24-hour period. tkrn documented as of this encounter (statuses as of 12/24/2022) [facility] History of Present illness Narrative* Luis Manuel [...] No Multivitamin with Folic acid: Not taking Jainism or heritage: No Would refuse blood transfusion if medically necessary: No Are you currently employed? 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 [facility] updated. Sent to medical records to scan into [employer] and copy in [facility] mailbox for 11/15/22 appointment. Angel Rivera RN documented in this encounterKeenan Private Hospital07-15-2023 Instructions* Patient Instructions* Wilfrid Laura APRN.SENIOR OCCUPATIONAL THERAPIST - 08/21/2022 11:00 AM EDT How to [...] or concerning to you. documented in this encounterKeenan Private Hospital07-15-2023 History of Present illness Narrative* Wilfrid Laura [...] of care. This note was generated using [employer] software. It may contain errors in wording, punctuation, or spelling. Wilfrid Laura APRN.CNP documented in this encounterKeenan Private Hospital07-13-2023 Instructions* Patient Instructions* Lyric Carney APRN.CNP - 08/19/2022 4:19 PM EDT Recommend ER evaluation due to and current symptoms. Urine will be sent off for culture. Keep appointment tomorrow with [facility]PA[facility] INTERN. documented in this encounterKeenan Private Hospital07-13-2023 History of Present illness Narrative* Lyric Carney [...] 16weeks , following with Dr. Mike Rodriguez UNPAID INTERN. Last appt about 1 month, seeing tomorrow. [...] agrees with the plan. documented in this encounterKeenan Private Hospital04-26-2023 History of Present illness Narrative* Wilfrid Laura [...] care. Wilfrid Laura APRN.CNP documented in this encounterKeenan Private Hospital11-18-2022 Hospital Discharge instructions Patient Education 12/25/2021 11:27:58 [...] foods again, start with small amounts of btbc-yi-bliiyu, low- fat foods. These include apple sauce, [...] increase stomach acid. Don't use aspirin or dkfo-fvm-yibekrb pain and fever medicines, if possible. This includes nonsteroidal anti-inflammatory drugs (NSAIDs). Lose excess weight. Finish eating at least 2 hours before you go to bed or lie down. Raise the head of your bed. 0564-8259 [employer]. [address] [place] [address]. All rights reserved. This information is not intended as a substitute for professional medical care. Always follow yourhealthcare professional's instructions. Follow Up Care 12/25/2021 09:25:21 With:Follow up with primary care provider Address:Unknown When:2-4 days [facility] 11-18-2022 Emergency department Discharge summary Discharge Instructions Thank you for allowing [facility] to assist you with your healthcare needs. [...] foods again, start with small amounts of jmal-ck-blnalp, low- fat foods. These include apple sauce, [...] increase stomach acid. Don't use aspirin or skly-wop-tugihsy pain and fever medicines, if possible. This includes nonsteroidal anti-inflammatory drugs (NSAIDs). Lose excess weight. Finish eating at least 2 hours before you go to bed or lie down. Raise the head of your bed. 5860-2170 [employer]. [address] [place] [address]. All rights reserved. This information is not intended as a substitute for professional medical care. Always follow yourhealthcare professional's instructions. Additional Information VACCINATE! IT SAVES LIVES! Members of the community who have not yet received the COVID-19 vaccine and would like to receive it can visit one of [facility] vaccine clinics. There are many vaccine clinic locations within the [facility]. For locations and available times, please visit [email or web address]. It is important to note that some COVID mobile vaccine clinics are held outdoors and may be canceled in rainy orstormy conditions. To learn more about pediatric vaccinations (ages 5-11), we invite you to visit the [facility] webpage. [email or web address] [email or web address].htmlTo learn more about the COVID-19 vaccine, we invite you to visit the [facility] website for a list of frequently asked questions. [email or web address] _[email or web address]-Questions.pdf [facility] Patient Portal Access Instructions: Stay connected with your healthcare team and access your personal medical information anytime with the [facility] Patient Portal. If you would like a full copy of your medical records please contact the [facility] Medical Records Department Tuesday through Tuesday between 8a.m. and 4:30p.m. Please follow the directions below to access the portal: 1.Access the email account you provided upon registration to the [facility].2.Look for an invitation email from [facility].3.Open the email and access the invitation link: Accept Invitation to [facility]4.Fill in the required solis to create your account. Sign into www.Galenea with your username and password that you [...] you will allow to register on the [facility] Patient Portal for access to your information. You can also access the [facility] Patient Portal on the [employer] ronnie. Simply click on Health Records under DEUSta and then click on the [facility] logo. HOW TO SAFELY DISPOSE OF PRESCRIPTION [...] Call your local pharmacy or go to http://bit.GoodyTag/8H0Fl1q to find one close to you.3.Make use of household items: Use cat litter or old coffee grounds to dispose medications if other options arenot available. Mix your drugs with these household products, seal them in an airtight container andthrow it into the garbage. Call [facility]: [phone] to be sure your drugs can be [...] that I should contact my d octor. Patient/Rn Diabetes Signature: Date/Time: Relationship to Patient: Witness Name/Signature: Date/Time: [facility] [id number] Note ORIGINAL EXAMINATION: CT OF THE ABDOMEN AND PELVIS WITHOUT FXTBGHCZ19/18/2022 10:28 am TECHNIQUE: CT of the abdomen [...] by: Christian Nicole MD Preliminary Report By: Em Aragon Electronically signed By Christian Nicole MD Dictated Date: 12/25/2021 10:36:17 AM Prelim Date: 12/25/2021 11:18:46 AM Sign Date: 12/25/2021 11:18:46 AM Ordering Provider: [facility]2022 Note ORIGINAL EXAMINATION: CT OF THE ABDOMEN AND PELVIS WITHOUT WQXVBVXK21/18/2022 10:28 am TECHNIQUE: CT of the abdomen [...] by: Christian Nicole MD Preliminary Report By: Em Aragon Electronically signed By Christian Nicole MD Dictated Date: 12/25/2021 10:36:17 AM Prelim Date: 12/25/2021 11:18:46 AM Sign Date: 12/25/2021 11:18:46 AM Ordering Provider[facility] NotePap Smear Specimen AdequacyNovember 2021 3:37pmComment.Satisfactory for evaluation. Endocervical and/or squamous metaplasticcells (endocervical component)are present.[facility] A#[id number] Memorial Hospital Work Phone: Comment on above:Satisfactory for evaluation. Endocervical and/or squamous metaplasticcells (endocervical component)are present.12-15-2021 NotePap Smear Specimen AdequacyNov2021 3:37pm Comment.Satisfactory for evaluation. Endocervical and/or squamous metaplasticcells (endocervical component)are present.[facility] A#[id number] Memorial Hospital Work Phone: Comment on above:Satisfactory for evaluation. Endocervical and/or squamous metaplasticcells (endocervical component)are present.12-15-2021 NotePap Smear Specimen AdequacyNov2021 3:37pm Comment.Satisfactory for evaluation. Endocervical and/or squamous metaplasticcells (endocervical component)are present.[facility] A#[id number] Memorial Hospital Work Phone: Comment on above:Satisfactory for evaluation. Endocervical and/or squamous metaplasticcells (endocervical component)are present.12-15-2021 NotePap Smear Specimen AdequacyNovember 2021 3:37pm Comment.Satisfactory for evaluation. Endocervical and/or squamous metaplasticcells (endocervical component)are present.[facility] A#[id number] Memorial Hospital Work Phone: Comment on above:Satisfactory for evaluation. Endocervical and/or squamous metaplasticcells (endocervical component)are present.12-09-2021 History of Present illness Narrative* Delmer Bradshaw APRN.SENIOR OCCUPATIONAL THERAPIST - 12/09/2021 12:30 PM EDT Subjective HPI [...] and atraumatic. Nose: Nose normal. Mouth/Throat: Lips: [place]. Mouth: Mucous membranes are moist. Pharynx: Uvula [...] plan Delmer Bradshaw APRN.SB documented in this encounterKeenan Private Hospital10-03-2022 Miscellaneous Notes* Telephone Encounter - Nilay Bernal MD - 11/09/2021 3:59 PM EDT Refill not appropriate through express care. documented in this [facility]09-20-2022 Instructions* Patient Instructions* Ansley Heller APRN.CNP - [...] pillows when lying down. documented in this encounterKeenan Private Hospital09-20-2022 History of Present illness Narrative* Magdalena Cottrell [...] 27, 2021 6:23 PM documented in this encounterKeenan Private Hospital09-20-2022 History of Present illness Narrative* Ansley Heller APRN.CNP - 10/27/2021 6:16 PM EDT This [...] history is provided by the patient. No english as a second language instructor was used. Musculoskeletal Problem This is a [...] HISTORY Procedure Laterality Date REMOVE TONSILS/ADENOIDS,12+ Y/O 2018 ALLERGIES Patient has no known allergies. MEDICATIONS [...] analgesics. Follow up with PCP Ansley Heller APRN.SENIOR OCCUPATIONAL THERAPIST documented in this encounterKeenan Private HospitalDiswestborough [facility] summary Author Dr. Stanley [facility] August 01, 2022 5:35am Note Date/Time August 01, 2022 4:47 am [facility] Medical Records Department [address] [place] [address] Emergency Department Summary 08/01/22 MR#: [id number] Acct: [id number] Name: CHANA DE LA O Rep #:[id number] : 2000 21 From: Sandip Stanley MD PCP: Care Physician,No Primary Status :REG ER Location: ED HPI HPI - GI History of Present Illness Chief Complaint: Abd Pain Informant: patient Narrative Narrative: Patient presents with epigastric abdominal cramping nausea vomiting. Patient states she has had gastroparesis for a long time. She sees Dr. Kowalski. They are not exactly sure why she developed this. She does smoke marijuana regularly. But she states she smokes just enough so she can eat food for the baby. She evidently is gaining weight. She is currently about 13 weeks . She is G2, P1 and her other child is about 1-year-old. She is not having any lower abdominal or pelvic pain. All her symptoms are epigastric painnausea and vomiting which is typical for her gastroparesis. She states she did have some Zofran that was helping a little bit but she has no meds at home now to help. No known allergies. She states the symptoms got worse about a year ago after she had her gallbladder out. She has had really constant pain and nausea since then but now and then it worsens. No fevers. No urinary symptoms. No coughing. [facility] Medical History (Updated 08/01/22 @ 05:[address] Sandip Stanley MD) Anemia Anxiety Asthma Depression Low iron Marijuana use Nausea & vomiting Syncope Upper abdominal pain Wears glasses Home Medications metoclopramide HCl 10 mg tablet (Reglan) 10 mg PO Q8H PRN PRN nausea and vomiting #14 tabs 08/01/22 [Rx Last Taken Unknown] ondansetron 4 mg disintegrating tablet 4 mg PO Q8H PRN PRN Nausea #10 tabs 08/01/22 [Rx Last Taken Unknown] Allergy/AdvReac Type Severity Reaction Status Date / Time No Known Allergies Allergy Verified 08/01/22 04:20 Family History Father Diabetes Mother Depression Grandmother Breast cancer Surgical History H/O dilation and curettage History of adenoidectomy History of cholecystectomy (~09/2021) Hx of tonsillectomy Social History household members: significant other Smoking Status: Current every day smoker tobacco type: e-cigarettes alcohol intake: never substance use type: marijuana ROS ROS ED ROS Narrative A complete review of systems was performed and is negative except as documented in the history of present illness. Some specific details below. Constitutional: No recent fevers or chills. No malaise. EYE: No visual complaints or pain. No icterus ENT: No difficulty swallowing. No swelling. No pain. No GERD symptoms CV: No chest pain or palpitations. Respiratory: No dyspnea. No hemoptysis. No difficulty taking breaths. GI: Please see history of present illness. : No frequency dysuria or hematuria. She has no pelvic pain. No bleeding. No discharge. Musculoskeletal: No recent trauma. No pains. Skin: No rash. Nondiaphoretic. Neuro: No weakness or numbness. Endocrine: No polyuria or polydipsia. EXAM Physical Exam Narrative Exam Narrative: CONSTITUTIONAL: Patient is rocking on the bed. She is leaning forward and almost turning upside down on her head. After a few moments she takes deep breaths and is able to sit back and carry on a pretty normal conversation. HEENT: No notable trauma. Mucous membranes do still look moist. No sinus tenderness. No indication of pain with swallowing. EYES: No conjunctival injection. No proptosis. CARDIOVASCULAR: Regular rate. Regular rhythm. No notable murmur. No JVD. RESPIRATORY: No respiratory distress. Breathing is unlabored. No wheezes. No rhonchi. No rales. No pain with a deep breath. GASTROINTESTINAL: Not distended. Bowel sounds are normal. Sounds do not sound increased or decreased. She does have epigastric tenderness. The rest of the abdomen is actually quite benign. No lower abdominal or pelvic tenderness. GENITOURINARY: No tenderness over the bladder. No CVA tenderness. MUSCULOSKELETAL: Atraumatic. No peripheral edema. No cord. No tenderness along the deep venous system. No asymmetry. NEUROLOGICAL: Patient is alert and appropriate. No focal deficit noted. SKIN: No noted rashes. No diaphoresis. PSYCHIATRIC: Patient is a bit anxious but does calm down with talking. Const Vital Signs: 08/01/22 04:20 Temperature 97.9 F Temperature Source Oral Pulse Rate 84 Respiratory Rate 16 Blood Pressure 146/84 H Blood Pressure Mean 104 Pulse Ox 99 MDM MDM MDM Narrative Medical decision making narrative: Patient CBC shows normal white count hemoglobin and platelets. Patient's electrolytes are all unremarkable. Minimal elevation of chloride. Nosign of dehydration. Glucose is normal at 93. Patient's liver function test are normal. Patient's lipase is just mildly elevated about 1-1/2-2 times normal at 137. Buther pain is all high epigastric and does not radiate to the back. She is not drinking alcohol. She is already had a cholecystectomy. I do not think this represents acute significant pancreatitis at this point. With this lab, her history, her presentation and exam, and being I do not think a CT scan of the abdomen is appropriate or indicated. Patient decided that she wanted to go home. She got IV fluids and was feeling better. She wanted something for pain. We had given her Reglan. I will write for some Reglan and Zofran for home. Lab Data Labs: Laboratory Results - last 24 hr 08/01/22 08/01/22 04:30 04:30 WBC 10.3 RBC 4.57 Hgb 12.3 Hct 36.8 L MCV 80.5 L MCH 26.9 L MCHC 33.4 RDW Std Deviation 43.1 RDW Coeff of Connor 14.7 H Plt Count 258 MPV 11.4 Immature Gran % (Auto) 0.500 Neut % (Auto) 75.6 H Lymph % (Auto) 17.7 L Alpine % (Auto) 4.5 Eos % (Auto) 1.3 Baso % (Auto) 0.4 Absolute Neuts (auto) 7.8 H Absolute Lymphs (auto) 1.81 Nucleated RBC % 0 Sodium 138 Potassium 3.7 Chloride 108 H Carbon Dioxide 23.0 Anion Gap 7 BUN 6 L Creatinine 0.59 Estim Creat Clear Calc 135.72 Est GFR (MDRD) Af Amer 164 Est GFR (MDRD) Non-Af 135 BUN/Creatinine Ratio 10.1 Glucose 93 Calcium 8.9 Total Bilirubin 0.30 AST 9 L ALT 9 L Alkaline Phosphatase 65 Total Protein 7.5 Albumin 3.3 Globulin 4.2 Albumin/Globulin Ratio 0.8 L Lipase 137 H Discharge Plan Triage Chief Complaint: Abd Pain ED Provider: Sandip Stanley Dx/Rx/DC Orders Clinical Impression: Nausea & vomiting, Cannabis hyperemesis syndrome concurrent with and due to cannabis abuse, Second trimester Instructions: Gastroparesis, ED Vomiting (Adult) Prescriptions: New ondansetron [ondansetron] 4 mg tablet,disintegrating 4 mg PO Q8H PRN PRN (Reason: Nausea) Qty: 10 0RF metoclopramide HCl [Reglan] 10 mg tablet 10 mg PO Q8H PRN PRN (Reason: nausea and vomiting) Qty: 14 0RF Primary Care Provider: Care Physician,No Primary Referrals: Monica Rodriguez DO [Med Staff - Active Staff] - Keep Kash appointment Friend,DO Rodrick [Med Staff - Active Staff] - As soon as possible Care Physician,No Primary [Primary Care Provider] - Disposition Disposition: Home, Self Care What to do if you have Problems For any increased pain, shortness of breath, bleeding, nausea or vomiting, chestpain, or any unexpected problems, contact your Primary Care Provider. Call Doctors Registry ([phone]) or report to the closest Emergency Room. Call 911 if necessary. 08/01/22 0535 <Electronically signed by Sandip Stanley MD> Cosigner Signature (if applicable): CC: No Primary Care Physician ~ Signed [facility] Work Phone: Discharge summary Author Davis Dorman [facility] November 06, 2022 11:11am Note Date/Time November 06, 2022 10:22am [facility] Medical Records Department [address] [place] [address] Emergency Department Summary 11/06/22 MR#: [id number] Acct: [id number] Name: CHANA DE LA O Rep #:[id number] : 2000 21 From: Davis Dorman MD PCP: Care Physician,No Primary Status :REG ER Location: ED HPI History of Present Illness Chief Complaint: Other, Pain/Inj Detail of Chief Complaint: vtg Informant: patient Narrative Narrative: Patient is 27 almost 28 weeks G2, P1, presenting for 2 to 3 days of feeling colder than normal, nausea and vomiting, and some lightheadedness without syncope or near syncope. She denies any abdominal pains or vaginal bleeding/leakage/discharge. She denies any urinary symptoms. She last urinatedthis morning before coming here, and she states it was not excessively dark, it looked clear and normal. She has a history of gastroparesis, she states she vomits every single day, including during this . 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 She denies any fevers, she denies any symptoms of any other illness recently. She states she used to be on Reglan for her gastroparesis, which preexisted prior to this , but her doctor left andshe ran out and now she is on Zofran which seems to work better. [facility] Medical History Anemia Anxiety Asthma Depression Low iron Marijuana use Nausea & vomiting Syncope Upper abdominal pain Wears glasses Home Medications metoclopramide HCl 10 mg tablet (Reglan) 10 mg PO Q8H PRN PRN nausea and vomiting #14 tabs 08/01/22 [Rx Last Taken Unknown] ondansetron 4 mg disintegrating tablet 4 mg PO Q8H PRN PRN Nausea #10 tabs 08/01/22 [Rx Last Taken Unknown] pantoprazole 40 mg tablet,delayed release 40 mg PO BID 1 month #60 tabs 08/02/22[Rx Last Taken Unknown] ondansetron 4 mg disintegrating tablet 8 mg (2 x 4 mg) PO Q8H PRN PRN Nausea #30tabs 11/06/22 [Rx Last Taken Unknown] Allergy/AdvReac Type Severity Reaction Status Date / Time No Known Allergies Allergy Verified 11/06/22 09:50 Family History Father Diabetes Mother Depression Grandmother Breast cancer Surgical History H/O dilation and curettage History of adenoidectomy History of cholecystectomy (~09/2021) Hx of tonsillectomy Social History household members: significant other Smoking Status: Current every day smoker tobacco type: e-cigarettes alcohol intake: never substance use type: marijuana ROS ROS ED Constitutional Constitutional ED: Denies chills or fever(s) Eyes Eyes: Denies blurry vision, change in vision or diplopia ENT ENT ED: Denies rhinorrhea or sore throat Cardiovascular Cardiovascular: Reports lightheadedness; Denies chest pain, leg edema or palpitations Respiratory/Chest Respiratory/Chest: Denies cough or dyspnea Gastrointestinal Gastrointestinal: Reports nausea and vomiting; Denies abdominal pain, constipation, diarrhea or melena Genitourinary Genitourinary ED: Denies dysuria or hematuria Musculoskeletal Musculoskeletal: Denies back pain or neck pain Integumentary Denies abscess or rash Neurologic Neurologic: Denies headache(s), paresthesias or weakness Psychiatric Psychiatric: Denies anxiety or suicidal thoughts Endocrine Endocrinology: Reports cold intolerance; Denies polydipsia, polyphagia or polyuria EXAM Physical Exam Const Vital Signs: 11/06/22 09:50 11/06/22 09:56 Temperature 97.9 F Temperature Source Oral Pulse Rate 86 Respiratory Rate 18 Respiratory Effort Normal Non-Labored Respiratory Pattern Normal Blood Pressure 114/75 Blood Pressure Mean 88 Pulse Ox 96 Oxygen Delivery Method Room Air Positive well nourished and well developed Constitutional Narrative: Well-appearing in no distress sitting up comfortably General Appearance ED: well developed and NAD HEENT Reports moist mucous membranes normocephalic and atraumatic Eyes PERRL and EOMs intact bilaterally Neck full ROM and supple Resp normal respiratory effort and clear to auscultation bilaterally Cardio regular rate, regular rhythm and no murmurs Rate: Negative for tachycardic GI non-tender GI Narrative: Distended above the umbilicus consistent with early third trimester Auscultation: normoactive bowel sounds Palpation: soft Back/Spine no CVA tenderness General Back: other FROM Extremity normal to inspection General Extremety ED: Negative for edema, pulses abnormal or tenderness General Extremity: Negative for edema or pulses abnormal Neuro oriented x3, CN's II-XII intact bilaterally and no sensory deficits noted Sensorium / Orientation: awake and alert Motor Exam: strength 5/5 throughout Skin no rashes or lesions noted and no wounds MDM MDM MDM Narrative Medical decision making narrative: heart tones obtained, 145 within normal limits. Patient was given a literof fluid and Zofran while we ran some labs, they are very benign-appearing, withslight anemia consistent with , her vital signs are normal with a temperature of 97.9, and after Zofran and fluids she is feeling much better and tolerating oral fluids. She has no Zofran at home will prescribe her some, close a patient follow-up advised. Lab Data Attestation: I reviewed the patient's lab results. Labs: Laboratory Results - last 24 hr 11/06/22 10:26 WBC 9.1 RBC 4.34 Hgb 11.8 L Hct 35.6 L MCV 82.0 MCH 27.2 MCHC 33.1 RDW Std Deviation 40.3 RDW Coeff of Connor 13.6 Plt Count 260 MPV 10.8 Immature Gran % (Auto) 0.500 Neut % (Auto) 67.2 Lymph % (Auto) 22.5 Alpine % (Auto) 7.1 Eos % (Auto) 2.2 Baso % (Auto) 0.5 Absolute Neuts (auto) 6.1 Absolute Lymphs (auto) 2.05 Nucleated RBC % 0 Sodium 135 L Potassium 3.6 Chloride 108 H Carbon Dioxide 24.0 Anion Gap 3 L BUN 5 L Creatinine 0.49 L Estim Creat Clear Calc 163.42 Est GFR (MDRD) Af Amer 205 Est GFR (MDRD) Non-Af 169 BUN/Creatinine Ratio 10.3 Glucose 84 Calcium 8.1 L Discharge Plan Triage Chief Complaint: Other, Pain/Inj ED Provider: Davis Dorman Dx/Rx/DC Orders Clinical Impression: Vomiting, Third trimester , Gastroparesis Instructions: Gastroparesis Prescriptions: New ondansetron [ondansetron] 4 mg tablet,disintegrating 8 mg PO Q8H PRN PRN (Reason: Nausea) Qty: 30 0RF No Action ondansetron [ondansetron] 4 mg tablet,disintegrating 4 mg PO Q8H PRN PRN (Reason: Nausea) Qty: 10 0RF metoclopramide HCl [Reglan] 10 mg tablet 10 mg PO Q8H PRN PRN (Reason: nausea and vomiting) Qty: 14 0RF pantoprazole 40 mg tablet,delayed release (DR/EC) 40 mg PO BID 30 Days Qty: 60 3RF Primary Care Provider: Care Physician,No Primary Referrals: Jenny Rodríguez MD [[facility] Staff - Active Staff] - (as needed if continued acute issues or otherwise as scheduled) Disposition Disposition: Home, Self Care What to do if you have Problems For any increased pain, shortness of breath, bleeding, nausea or vomiting, chestpain, or any unexpected problems, contact your Primary Care Provider. Call [facility] ([phone]) or report to the closest Emergency Room. Call 911 if necessary. 11/06/22 1111 <Electronically signed by Davis Dorman MD> Cosigner Signature (if applicable): CC: No Primary Care Physician ~ Signed [facility] Work Phone: Discharge summary Author Kandis Jacksonyhart-McI ntosh [facility] March 04, 2023 11:46am Note Date/Time March 04, 2023 1 1:46am [facility] Medical Records Department [address] [place] [address] Instructions for Home/Discharge Instructions 03/04/23 1146 MR#: [id number] Acct: [id number] Name: CHANA DE LA O Rep #:[id number] : 2000 22 From: Angeline Chu MD PCP: Care Physician,No Primary Status :[place] [facility] Discharge Instructions Diet Discharge Diet: No restrictions Activity May resume sexual activity in: 2 weeks Lifting Restrictions: 20-25 lbs Dressing / Incision Call your doctor if your incision/area has: Continuous Slow Oozing, Sudden Increased Bleeding, Increased Pain/ Swelling, Increased Redness, Foul Smelling Discharge and Swelling at the incision site Call your doctor if you observe: Fever of 101 or Higher, Inability to urinate, Inability to have a bowel movement, Using more than 1 pad per hour and Uncontrolled pain Additional Dressing/Incision Instructions:: You have skin glue over your incision sites, do not pick off. You may shower and let the soap and water run over the incision sites and dab dry. Follow Up Care Please Follow Up With: Angeline Del Castillo MD When: 1-2 weeks post OP if you need an appointment please call [phone] Test Results: Test results from this visit will be discussed in further detail at your follow- up appointment, if applicable. Discharge Plan Admission Attending Provider: Angeline Del Castillo Primary Care Provider: Care Physician,No Primary Discharge Orders/Prescriptions Prescriptions: No Action albuterol sulfate 90 mcg/actuation HFA aerosol inhaler 1 inh INHALATION PRN Patient Comments: Inhale 2 Puffs as instructed every 6 hours as needed. ferrous sulfate [iron] 325 mg (65 mg iron) tablet 325 mg PO QODAY PRN (Reason: anemia) ondansetron 4 mg tablet,disintegrating 4 mg PO Q8H PRN PRN (Reason: Nausea) Qty: 10 0RF Referrals / Follow Up: Care Physician,No Primary [Primary Care Provider] - Disposition Disposition (needs filled in before D/C Order can be placed): Home, Self Care 03/04/23 1146<Electronically signed by Angeline Del Castillo MD>Angeline Del Castillo MD CC: No Primary Care Physician ~ Signed [facility] Work Phone: Discharge summary Author Davis Dorman [facility] May 15, 2023 6:02am Note Date/Time May 15, 2023 5:46 am [facility] Medical Records Department [address] [place] [address] Emergency Department Summary 05/15/23 MR#: [id number] Acct: [id number] Name: CHANA DE LA O Rep #:[id number] : 2000 22 From: Davis Dorman MD 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 She pulled out her albuterol MDI, she took 1 puff and that was all that was left and she is still wheezing. She states as a result of the wheezingshe started having some minor coughing but she did not have the cough before allof this started. She states this has happened at work before with regards to her asthma. PFSH PFSH Medical History ADHD Anemia Anxiety Asthma Depression Depression affecting Encounter for induction of labor Gastroparesis History of IBS IBS (irritable bowel syndrome) IUGR (intrauterine growth restriction) Low iron Marijuana use Nausea & vomiting Rh negative state in antepartum period Syncope Upper abdominal pain Vaginal delivery Vapes nicotine containing substance Home Medications albuterol sulfate 90 mcg/actuation aerosol inhaler 2 inh inhalation PRN asthma #8.5 grams 05/15/23 [Rx Last Taken Unknown] Allergy/AdvReac Type Severity Reaction Status Date / Time No Known Allergies Allergy Verified 05/15/23 05:40 Family History Father Diabetes Mother Depression Grandmother Breast cancer Surgical History H/O dilation and curettage History of adenoidectomy History of cholecystectomy (~09/2021) History of esophagogastroduodenoscopy (EGD) Hx of tonsillectomy Social History household members: significant other Smoking Status: Current every day smoker tobacco type: cigarettes alcohol intake: never substance use type: marijuana ROS ROS ED Constitutional Constitutional ED: Denies chills or fever(s) Eyes Eyes: Denies change in vision or diplopia ENT ENT ED: Denies rhinorrhea or sore throat Cardiovascular Cardiovascular: Denies chest pain or palpitations Respiratory/Chest Respiratory/Chest: Reports cough and dyspnea Gastrointestinal Gastrointestinal: Denies abdominal pain, diarrhea, nausea or vomiting Genitourinary Genitourinary ED: Denies dysuria or hematuria Musculoskeletal Musculoskeletal: Denies back pain or neck pain Integumentary Denies abscess or rash Neurologic Neurologic: Denies headache(s), paresthesias or weakness Psychiatric Psychiatric: Denies anxiety or suicidal thoughts EXAM Physical Exam Const Vital Signs: 05/15/23 05:37 05/15/23 05:53 Temperature 97.4 F L Temperature Source Temporal Pulse Rate 80 86 Respiratory Rate 18 16 Respiratory Pattern Normal Blood Pressure 126/80 H Blood Pressure Mean 95 Pulse Ox 97 Oxygen Delivery Method Room Air Positive well nourished and well developed General Appearance ED: well developed and NAD HEENT Reports moist mucous membranes normocephalic and atraumatic Eyes PERRL and EOMs intact bilaterally Neck full ROM, no lymphadenopathy and supple Resp normal respiratory effort Resp Narrative: End expiratory wheezes bilaterally, slight, symmetric, without any other adventitious breath sounds or respiratory distress Effort and Inspection: able to speak in complete sentences Cardio regular rate, regular rhythm and no murmurs GI non-tender and non-distended Auscultation: normoactive bowel sounds Palpation: soft Back/Spine no CVA tenderness General Back: other FROM Extremity normal to inspection General Extremety ED: Negative for edema, pulses abnormal or tenderness General Extremity: Negative for edema or pulses abnormal Neuro oriented x3, CN's II-XII intact bilaterally and no sensory deficits noted Sensorium / Orientation: awake and alert Motor Exam: strength 5/5 throughout Skin no rashes or lesions noted and no wounds MDM MDM MDM Narrative Medical decision making narrative: Given an albuterol aerosol which made her feel better. Prescribed a new MDI andgiven instructions for use. I do not think she needs steroids for this mild episode. Discharge Plan Triage Chief Complaint: Asthma ED Provider: Davis Dorman Dx/Rx/DC Orders Clinical Impression: Acute asthma exacerbation Instructions: Asthma Prescriptions: Changed albuterol sulfate 90 mcg/actuation HFA aerosol inhaler 2 inh INHALATION PRN Qty: 8.5 0RF Primary Care Provider: [facility] Doctor,Out of Referrals: [facility] Doctor,Out of [Primary Care Provider] - As Needed Disposition Disposition: Home, Self Care What to do if you have Problems For any increased pain, shortness of breath, bleeding, nausea or vomiting, chestpain, or any unexpected problems, contact your Primary Care Provider. Call [facility] ([phone]) or report to the closest Emergency Room. Call 911 if necessary. 05/15/23 0602 <Electronically signed by Davis Dorman MD> Cosigner Signature (if applicable): CC: ~ Signed [facility] Work Phone: Discharge summary Author Davis Dorman [facility] Note Date/Time June 17, 2024 1:35p m [facility] Medical Records Department [address] [place] [address] Emergency Department Summary 06/17/24 MR#: [id number] Acct: [id number] Name: CHANA DE LA O Rep #:[id number] : 2000 23 From: Davis Dorman MD PCP: Care Physician,No Primary Status :REG ER Location: ED HPI HPI - GI History of Present Illness Chief Complaint: Abd Pain Informant: patient Narrative Narrative: 23-year-old female presenting with severe diffuse abdominal pain and vomiting for the past 4 hours or so this morning. She states she is been having episodesof this pain for the past 3 years since she had a cholecystectomy and D&C. Typically she gets episodes every day, typically in the morning, often associated with vomiting, but taking a hot shower typically relieves the discomfort. She tried that today and did not work, she also tried other coping mechanisms such as back massage, none of which have helped and she is in severe pain. She states every few months she has what she calls a flareup like this where it gets bad. She denies any hematemesis. She been having normal bowel movements and urination except for urinating a lot just this morning. No dysuria or hematuria. No fevers or chills or trouble breathing. [facility] Medical History IBS (irritable bowel syndrome) Ovarian cyst Marijuana use Wears glasses Gastric reflux Shortness of breath on exertion History of IBS Vapes nicotine containing substance Gastroparesis Vaginal delivery ADHD IBS (irritable bowel syndrome) Encounter for induction of labor Rh negative state in antepartum period Depression affecting IUGR (intrauterine growth restriction) Low iron Marijuana use Syncope Upper abdominal pain Nausea & vomiting Anemia Depression Anxiety Asthma Home Medications ?Medication ?Instructions ?Recorded ?Last Taken ?Type albuterol sulfate 90 mcg/actuation 2 inh inhalation ND N asthma #8.5 05/15/23 06/17/24 Rx aerosol inhaler grams ibuprofen 400 mg tablet (IBU) 800 mg PO Q6H PRN fever or pain 06/17/24 06/17/24 History Allergy/AdvReac Type Severity Reaction Status Date / Time No Known Allergies Allergy Verified 06/17/24 11:22 Family History Father Diabetes Mother Depression Grandmother Breast cancer Surgical History Tubal ligation status History of esophagogastroduodenoscopy (EGD) History of cholecystectomy (~09/2021) H/O dilation and curettage History of adenoidectomy Hx of tonsillectomy Social History household members: significant other Smoking Status: Current every day smoker tobacco type: e-cigarettes alcohol intake: never substance use type: marijuana ROS ROS ED Constitutional Constitutional ED: Denies chills or fever(s) Eyes Eyes: Denies change in vision or diplopia ENT ENT ED: Denies rhinorrhea or sore throat Cardiovascular Cardiovascular: Denies chest pain or palpitations Respiratory/Chest Respiratory/Chest: Denies cough or dyspnea Gastrointestinal Gastrointestinal: Reports as per HPI, abdominal pain, nausea and vomiting; Denies diarrhea, hematemesis or melena Genitourinary Genitourinary ED: Reports urinary frequency; Denies dysuria or hematuria Musculoskeletal Musculoskeletal: Denies back pain or neck pain Integumentary Denies abscess or rash Neurologic Neurologic: Denies headache(s), paresthesias or weakness Psychiatric Psychiatric: Denies suicidal thoughts EXAM Physical Exam Const Vital Signs: 06/17/24 11:20 06/17/24 13:19 Temperature 97.6 F L Temperature Source Oral Pulse Rate 91 68 Respiratory Rate 20 H 18 Blood Pressure 119/105 H 132/60 H Blood Pressure Mean 109 84 Pulse Ox 99 98 Oxygen Delivery Method Room Air Positive well nourished and well developed Constitutional Narrative: Hunched over the bed standing on the floor and painful distress General Appearance ED: well developed HEENT Reports moist mucous membranes normocephalic and atraumatic Eyes PERRL and EOMs intact bilaterally Neck full ROM and supple Resp normal respiratory effort and clear to auscultation bilaterally Cardio regular rate, regular rhythm and no murmurs GI non-distended GI Narrative: Diffuse tenderness. No guarding or rebound. Nondistended, hypoactive bowel sounds. Palpation: soft Back/Spine no CVA tenderness General Back: other FROM Extremity normal to inspection General Extremety ED: Negative for edema, pulses abnormal or tenderness General Extremity: Negative for edema or pulses abnormal Neuro oriented x3, CN's II-XII intact bilaterally and no sensory deficits noted Sensorium / Orientation: awake and alert Motor Exam: strength 5/5 throughout Psych Mood & Affect: anxious and tearful Skin no rashes or lesions noted and no wounds MDM MDM MDM Narrative Medical decision making narrative: Patient was treated with IV Reglan, morphine. She is much better on reevaluation lying comfortably with her legs crossed speaking with family members on the phone. Her workup is normal. is negative ruling out ectopic, urinalysis negative for infection, her counts are normal, liver enzymesnegative, lipase negative ruling out pancreatitis, and on my activities officer CT scanshows no acute abnormality. Radiology in agreement, saying that there is multiple areas of small bowel inflammation which is nonspecific, but no bowel obstruction. I agree with this report. Patient is doing well and stable for discharge and close outpatient follow-up. Lab Data Attestation: I reviewed the patient's lab results. Labs: Laboratory Results - last 24 hr 06/17/24 06/17/24 11:50 11:55 WBC 10.4 RBC 4.61 Hgb 14.2 Hct 40.1 MCV 87.0 MCH 30.8 MCHC 35.4 RDW Std Deviation 39.2 RDW Coeff of Connor 12.2 Plt Count 302 MPV 10.3 Immature Gran % (Auto) 0.500 Neut % (Auto) 75.4 H Lymph % (Auto) 19.0 Alpine % (Auto) 3.4 Eos % (Auto) 1.0 Baso % (Auto) 0.7 Absolute Neuts (auto) 7.8 H Absolute Lymphs (auto) 1.97 Nucleated RBC % 0 Sodium 140 Potassium 4.1 Chloride 106 Carbon Dioxide 22.1 Anion Gap 12 BUN 6 Creatinine 0.66 L Estim Creat Clear Calc 135.59 Est GFR (MDRD) Non-Af 126 BUN/Creatinine Ratio 9.2 L Glucose 99 Calcium 8.8 Total Bilirubin 0.30 AST 15 ALT 8 Alkaline Phosphatase 69 Total Protein 7.7 Albumin 4.5 Globulin 3.2 Albumin/Globulin Ratio 1.4 Lipase 23 Serum , Qual NEGATIVE Urine Color Yellow Urine Clarity Clear Urine pH 6.0 Ur Specific [place] 1.020 Urine Protein 15 H Urine Glucose (UA) Normal Urine Ketones Negative Urine Occult Blood Negative Urine Nitrite Negative Urine Bilirubin Negative Urine Urobilinogen Normal Ur Leukocyte Esterase Negative Urine RBC 0 SEEN Urine WBC 0 SEEN Ur Squamous Epith Cells 0-5 SEEN Urine Bacteria 0 SEEN Urine Mucus 0 SEEN Radiography Diagnostic Testing: Clinical Impression(s) from Imaging Studies Abdomen/Pelvis CT 06/17/24 11:30 IMPRESSION: Scattered inflammation of the small bowel with fluid may reflect enteritis. No bowel obstruction. Reading Location: [facility] Discharge Plan Triage Chief Complaint: Abd Pain ED Provider: Davis Dorman Dx/Rx/DC Orders Clinical Impression: Diffuse abdominal pain Instructions: Abdominal Pain Prescriptions: No Action albuterol sulfate 90 mcg/actuation HFA aerosol inhaler 2 inh INHALATION PRN Qty: 8.5 0RF ibuprofen [IBU] 400 mg tablet 800 mg PO Q6H PRN (Reason: fever or pain) Primary Care Provider: Care Physician,No Primary Referrals: your doctor or drum sander [Other] Print Language: [place] Disposition Disposition: Home, Self Care What to do if you have Problems For any increased pain, shortness of breath, bleeding, nausea or vomiting, chest pain, or any unexpected problems, contact your Primary Care Provider. Call [facility] ([phone]) or report to the closest Emergency Room. Call 911 if necessary. 06/17/24 5 <Electronically signed by Davis Dorman MD> Cosigner Signature (if applicable): CC: No Primary Care Physician ~ Signed [facility] Work Phone: Evaluation + Plan note No data available for this section [facility] Evaluation noteNo assessment information available [facility] Work Phone: Evaluation note* Diagnosis Onset Date Resolution Status Intrauterine growth restriction, antepartum acute 40 weeks gestation of acute acute Spontaneous vaginal delivery acute [facility] Work Phone: Evaluation note* Diagnosis Onset Date Resolution Status Intrauterine growth restriction, antepartum acute [facility] Work Phone: Evaluation note* Diagnosis Onset Date Resolution Status Intrauterine growth restriction, antepartum acute Pelvic pain acute Retained products of conception acute Vaginal bleeding acute [facility] Work Phone: Evaluation note* Diagnosis Onset Date Resolution Status Intrauterine growth restriction, antepartum acute Acute blood loss as cause of postoperative anemia acute Pelvic pain acute Retained products of conception acute Vaginal bleeding acute [facility] Work Phone: Evaluation note* Diagnosis Onset Date Resolution Status Intrauterine growth restriction, antepartum acute Acute blood loss as cause of postoperative anemia acute Pelvic pain resolved Retained products of conception resolved Vaginal bleeding resolved [facility] Work Phone: Evaluation note* Diagnosis Onset Date Resolution Status Intrauterine growth restriction, antepartum acute Acute blood loss as cause of postoperative anemia acute Pelvic pain resolved Retained products of conception resolved Vaginal bleeding resolved Abdominal pain acute Acute calculous cholecystitis acute [facility] Work Phone: Evaluation note* Diagnosis Onset Date Resolution Status Acute blood loss as cause of postoperative anemia acute Pelvic pain resolved Retained products of conception resolved Vaginal bleeding resolved Anemia acute Abdominal pain resolved Acute calculous cholecystitis resolved Status post cholecystectomy acute [facility] Work Phone: evaluation note* Diagnosis Pain of right hand- Primary Pain in limb documented in this encounter [facility] note* Diagnosis Viral URI with cough Acute upper respiratory infections of unspecified site documented in this encounter [facility] note* Diagnosis Sore throat- Primary Acute pharyngitis History of asthma Personal history of other diseases of respiratory system documented in this encounter [facility] note* Diagnosis Onset Date Resolution Status Anemia acute Abdominal pain resolved Acute calculous cholecystitis resolved Status post cholecystectomy acute Constipation acute Nausea & vomiting acute Upper abdominal pain acute [facility] Work Phone: evaluation note* Diagnosis Onset Date Resolution Status Constipation acute Nausea & vomiting acute Upper abdominal pain acute Upper abdominal pain acute Nausea & vomiting acute Status post cholecystectomy acute Upper abdominal pain acute [facility] Work Phone: evaluation note* Diagnosis Onset Date Resolution Status Constipation acute Nausea & vomiting acute Upper abdominal pain acute Upper abdominal pain acute Nausea & vomiting acute Status post cholecystectomy acute Upper abdominal pain acute Bile reflux gastritis acute Nausea & vomiting acute Upper abdominal pain acute [facility] Work Phone: evaluation note* Diagnosis Onset Date Resolution Status Upper abdominal pain acute Nausea & vomiting acute Status post cholecystectomy acute Upper abdominal pain acute Nausea & vomiting acute Upper abdominal pain acute Bile reflux gastritis chroni c Nausea & vomiting acute 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 [facility] Work Phone: Evaluation note* Diagnosis Onset Date Resolution Status Nausea & vomiting acute Upper abdominal pain acute Bile reflux gastritis chroni c Nausea & vomiting acute 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 [facility] Work Phone: Evaluation note* Diagnosis Procedure not carried out- Primary Procedure not carried out for other reasons documented in this encounter [facility] note* Diagnosis Onset Date Resolution Status 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 Constipation chronic [facility] Work Phone: Evaluation note* Diagnosis Abdominal pain, unspecified abdominal location- Primary 16 weeks gestation of state, incidental Burning with urination Dysuria [facility] Sore [facility]- Primary Acute pharyngitis Viral illness Unspecified viral infection, in conditions classified elsewhere and of unspecified site [facility] Diagnosis Onset Date Resolution Status Cannabis hyperemesis syndrom 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 Constipation chronic [facility] Work Phone: Evaluation note* Diagnosis with care elsewhere, antepartum- Primary Gastroparesis History of depression Personal history of other mental disorder Engages in nicotine containing substance vaping History of marijuana use Nausea and vomiting in Unspecified vomiting of , unspecified as to episode of care [facility] Diagnosis with care elsewhere, antepartum- Primary Gastroparesis History of depression Personal history of other mental disorder History of marijuana use 29 weeks gestation of state, incidental Rh negative state in antepartum period Rhesus isoimmunization affecting management of mother, antepartum condition [facility] Diagnosis with care elsewhere, antepartum- Primary 31 weeks gestation of state, incidental [facility] Diagnosis 33 weeks gestation of - Primary state, incidental care, subsequent in third trimester Leakage of amniotic fluid Premature rupture of membranes in , unspecified as to episode of care [facility] Diagnosis Onset Date Resolution Status Constipation chronic Cannabis hyperemesis syndrom e concurrent with and due to cannabis abuse resolved 33 weeks gestation of acute High risk multigravida in third trimester acute 34 weeks gestation of acute IUGR (intrauterine growth restriction) acute Vaginal bleeding resolved [facility] Work Phone: Evaluation note* Diagnosis Poor growth affecting management of mother in third trimester, single or unspecified fetus- Primary Vaginal bleeding in , third trimester 34 weeks gestation of state, incidental [facility] Diagnosis with [facility] elsewhere, antepartum- Primary Poor growth affecting management of mother in third trimester, single or unspecified fetus [facility] Diagnosis Other obesity due to excess calories affecting in third trimester [O99.213, E66.09]- Primary Poor growth affecting management of mother in third trimester, single or unspecified fetus Supervision of other high risk pregnancies, third trimester Placental abruption in third trimester [facility] Diagnosis Poor growth affecting management of mother in third trimester, single or unspecified fetus- Primary Supervision of other high risk pregnancies, third trimester 35 weeks gestation of state, incidental [facility]* Diagnosis 36 weeks gestation of - Primary state, incidental Poor growth affecting management of mother in third trimester, single or unspecified fetus Supervision of other high risk pregnancies, third trimester Rh negative state in antepartum period Rhesus isoimmunization affecting management of mother, antepartum condition History of marijuana use [facility]* Diagnosis Poor growth affecting management of mother in third trimester, single or unspecified fetus- Primary Supervision of other high risk pregnancies, third trimester 36 weeks gestation of state, incidental [facility]* Diagnosis Poor growth affecting management of mother in third trimester, single or unspecified fetus- Primary 36 weeks gestation of state, incidental Supervision of other high risk pregnancies, third trimester [facility] Diagnosis 37 weeks gestation of - Primary state, incidental Poor growth affecting management of mother in third trimester, single or unspecified fetus Supervision of other high risk pregnancies, third trimester documented in this encounter [facility] note* Diagnosis 37 weeks gestation of - Primary state, incidental Poor growth affecting management of mother in third trimester, single or unspecified fetus Supervision of other high risk pregnancies, third trimester documented in this encounter [facility] note* Diagnosis Onset Date Resolution Status Constipation chronic Cannabis hyperemesis syndrom e concurrent with and due to cannabis abuse resolved 33 weeks gestation of acute High risk multigravida in third trimester acute 34 weeks gestation of acute Vaginal bleeding resolved [facility] Work Phone: Evaluation note* Diagnosis Onset Date Resolution Status 33 weeks gestation of acute High risk multigravida in third trimester acute 34 weeks gestation of acute Vaginal bleeding resolved [facility] Work Phone: Evaluation note* Diagnosis URI, acute- Primary Acute upper respiratory infections of unspecified site [facility]* Diagnosis Sinobronchitis- Primary Unspecified sinusitis (chronic) [facility] this [facility]* Diagnosis Onset Date Resolution Status Constipation chronic Cannabis hyperemesis syndrom e concurrent with and due to cannabis abuse resolved [facility] Work Phone: Evaluation note* Diagnosis Mild intermittent asthma with acute exacerbation- Primary Unspecified asthma, with exacerbation Eustachian tube dysfunction, bilateral documented in this encounter [facility] note* Diagnosis Injury of right thumb, initial encounter- Primary Injury of right thumb, initial encounter [facility]* Diagnosis Pelvic pain in female- Primary Unspecified symptom associated with female genital organs Abdominal pain, unspecified abdominal location Nausea and vomiting, unspecified vomiting type History of cholecystectomy Other acquired absence of organ Dermoid cyst Benign neoplasm of unspecified site PCOS (polycystic ovarian syndrome) Polycystic ovaries Enlarged uterus Hypertrophy of uterus Marijuana use, continuous [facility]* Diagnosis Pelvic pain in female- Primary Unspecified symptom associated with female genital organs Dermoid cyst Benign neoplasm of unspecified site Dermoid cyst of ovary, right Abnormal ultrasound of endometrium Nonspecific (abnormal) findings on radiological and other examination of genitourinary organs [facility] this [facility]* Diagnosis Injury of right thumb, initial encounter [facility]* Diagnosis Pain of right hand Pain in limb [facility] this [facility] Diagnosis Acute cough- Primary [facility]* Diagnosis Pelvic pain in female- Primary Unspecified symptom associated with female genital organs [facility] this [facility]* Diagnosis Bacterial vaginosis- Primary Vaginitis and vulvovaginitis, unspecified Infection due to Allie glabrata [facility] this [facility]* Diagnosis Pelvic pain in female- Primary Unspecified symptom associated with female genital organs [facility] this [facility]* Diagnosis Pharyngitis, unspecified etiology- Primary Sore throat Acute pharyngitis Headache, unspecified headache type [facility] this [facility]* Diagnosis Chronic pelvic pain in female- Primary Unspecified symptom associated with female genital organs documented in this encounter [facility] note* Diagnosis Pelvic pain in female- Primary Unspecified symptom associated with female genital organs Dermoid cyst of right ovary [facility] Diagnosis Chronic pelvic pain in female- Primary Unspecified symptom associated with female genital organs Dermoid cyst Benign neoplasm of unspecified site documented in this encounter [facility] note* Diagnosis Left lower quadrant abdominal pain- Primary Nausea and vomiting, unspecified vomiting type Ovarian mass, right Liver mass Unspecified disorder of liver [facility]* Diagnosis Screening for STD (sexually transmitted disease)- Primary Screening examination for venereal disease Chronic pelvic pain in female Unspecified symptom associated with female genital organs Dermoid cyst of ovary, right [facility] Author Chani Hernandez [facility] December 23, 2022 5:52pm Note Date/Time December 23, 2022 5:52pm [facility] Medical Records Department [address] [place] [address] H&P Exam - REPAIRER AND CHECKER 12/23/22 1745 MR#: [id number] Acct: [id number] Name: CHANA DE LA O Rep #:[id number] : 2000 22 From: Chani Hernandez DO PCP: Care Physician,No Primary Status :REG CL Location: [id number] HPI - General General Date of Admission: 12/23/22 Date of Service: 12/23/22 Chief Complaint: VB HPI Narrative CHANA DE LA O, is a 22 F at 34w1d with vaginal bleeding. She states out of nowhere she saturated through her clothing and pants with bleeding. She has no contractions. She denies leaking of fluid. She reports she was in the office several days ago for leaking of fluid, and rupture was ruled out. Since being seen in the office a few days ago she has not had continued leaking of fluid. Good movement. No recent falls or abdominal trauma. No headache or vision changes. [facility] Medical History (Updated 12/23/22 @ 17:[address] Chani Hernandez DO) Anemia Anxiety Asthma Depression Low iron Marijuana use Nausea & vomiting Syncope Upper abdominal pain Wears glasses Home Medications ondansetron 4 mg disintegrating tablet 8 mg (2 x 4 mg) PO Q8H PRN PRN Nausea #30tabs 11/06/22 [Rx Last Taken 12/19/22] prochlorperazine maleate 10 mg tablet 10 mg PO Q8H PRN nausea and vomiting #90 tabs 12/03/22 [Rx Last Taken Unknown] Allergy/AdvReac Type Severity Reaction Status Date / Time No Known Allergies Allergy Verified 12/23/22 13:03 Family History Father Diabetes Mother Depression Grandmother Breast cancer Surgical History (Updated 12/20/22 @ 19:[address] Donna Granados MD) H/O dilation and curettage History of adenoidectomy History of cholecystectomy (~09/2021) Hx of tonsillectomy Social History household members: significant other Smoking Status: Current every day smoker tobacco type: e-cigarettes alcohol intake: never substance use type: marijuana History 1 Elective abortions Hx Para 0 Spontaneous abortions Hx # Term Pregnancies Ectopic pregnancies Hx # Pregnancies Multiple births # of living children NST FHR Rate Baby A Baseline: 150 Variability:: Moderate Accelerations:: 15 x 15 Decelerations:: None NST Reactive:: Yes FHR Category:: Category I Uterine Activity:: no ctx's Vital Signs Vital Signs Vital Signs: 12/23/22 12:44 12/23/22 12:44 12/23/22 12:45 Temperature Temperature Source Pulse Rate 82 Blood Pressure 113/74 BP Systolic 113 BP Diastolic 74 Pulse Ox 98 12/23/22 12:45 12/23/22 14:28 12/23/22 14:28 Temperature Temperature Source Pulse Rate 67 81 Blood Pressure 105/63 BP Systolic 105 BP Diastolic 63 Pulse Ox 12/23/22 16:58 12/23/22 16:58 12/23/22 16:58 Temperature Temperature Source Pulse Rate 80 Blood Pressure 120/63 BP Systolic 120 BP Diastolic 63 Pulse Ox 98 12/23/22 16:58 12/23/22 16:58 12/23/22 14:28 Temperature 97.7 F L Temperature Source Temporal Temporal Pulse Rate Blood Pressure BP Systolic BP Diastolic Pulse Ox 12/23/22 14:28 12/23/22 17:03 12/23/22 17:03 Temperature 98.2 F Temperature Source Pulse Rate 82 Blood Pressure BP Systolic BP Diastolic Pulse Ox 98 12/23/22 17:08 12/23/22 17:08 12/23/22 17:13 Temperature Temperature Source Pulse Rate 97 100 Blood Pressure BP Systolic BP Diastolic Pulse Ox 97 12/23/22 17:13 12/23/22 17:38 12/23/22 17:38 Temperature Temperature Source Pulse Rate 84 Blood Pressure 122/58 H BP Systolic 122 BP Diastolic 58 Pulse Ox 98 12/23/22 17:37 Temperature Temperature Source Pulse Rate Blood Pressure BP Systolic BP Diastolic Pulse Ox 97 Weight Weight: 194 lb Body Mass Index (BMI) 32.3 Physical Exam Const alert and no apparent distress General Appearance: comfortable HEENT normocephalic Resp normal respiratory effort GI soft to palpation, non-tender and non-distended Narrative: SSE performed and cervix closed and long. Dark red-brown blood present in vaginal vault. Minimal amount with no active bleeding from cervical os. Labs Labs Labs: Blood Type A NEGATIVE Antibody Screen NEGATIVE Hct 34.9 % (37-47) L Hgb 11.4 g/dL (12.0-15.0) L Obstetrics Ultrasound Glucose 1 Hr 50 gm 74 mg/dL (70-140) Group B Strep DNA Negative (Negative) Rhogam given: Yes Assessment & Plan (1) 34 weeks gestation of : PLAN: - Discussed patient with MFM educational psychology professor at [facility] who agrees with transport given growth < 5% and concern for placental abruption (2) IUGR (intrauterine growth restriction): PLAN: - Had growth and fluid US earlier in the week showing growth < 5% - FHT reactive and reassuring - Bedside TAUS performed showing subjectively low fluid with MVP 1.8 cm. DEBBI on formal ultrasound normal (3) Vaginal bleeding: PLAN: - No pooling of fluid on SSE and no ferning, however visibility limited given presence of RBC's - Bleeding has slowed and FHT reassuring - Abruption labs normal - Given amount of bleeding on admission discussed concern for abruption - Rhogam for Rh negative status 12/23/221751 <Electronically signed by Chani Hernandez DO> Cosigner Signature (if applicable): CC: Dr. Chani Hernandez DO; No Primary Care Physician~ Signed [facility] Work Phone: Hospital Discharge instructions Additional Instructions Motrin and Tylenol for any ear pain. Follow-up if not improving. Normal exam at this time.[facility] Work Phone: Hospital Discharge instructions Additional Instructions Follow-up with Dr. Earl Thornton or your primary care physician if not improving. Your labs and CAT scan today were unremarkable. We do not have a specific cause for your pain. Zofran as needed for nausea which you may swallow or let dissolve on your tongue. Plenty of fluids and rest. Start with a bland diet and increase it slowly as tolerated.[facility] Work Phone: Hospital Discharge instructions Additional Instructions Bedside ultrasound normal heart tone and movements. UTI in take antibiotic as prescribed. Stop cannabis use. Use medications as prescribed. Follow-up with your doctors.[facility] Work Phone: Hospital Discharge instructions Additional Instructions Return if symptoms worsen. [facility]: [facility] Discharge instructions* Attachments The following attachments cannot be sent through Care Everywhere. * Abdominal Pain ([place]) * Ovarian Growths: Noncancerous ([place]) [facility] Dis[facility] instructionsAdditional Instructions Recommend following up with primary care physician and REPAIRER AND CHECKER. Return back to the ED if symptoms change or worsen. Zofran as needed for nausea and vomiting.[facility] Work Phone: Reason for referral (narrative)* Diagnostic Procedure Only (Urgent) - Closed Specialty Diagnoses / Procedures Referred By Kim hess Referred To Contact XR IMAGING Diagnoses Pain of right hand Procedures XR HAND GENERAL 3V PA/LAT/OBL RIGHT RADEX HAND MINIMUM 3 VIEWS Ansley Heller, JESS.SENIOR OCCUPATIONAL THERAPIST [address] [place] [address] Xr Imaging Referral ID Status Reason Start Date Expiration Date V isits Requested Visits Authorized [id number] Closed Auto-Generate d Referral 10/27/2021 11/26/2022 1 1 [facility] for referral (narrative)* Outpatient Procedure (Routine) - Pending Review Specialty Diagnoses / Procedures Referred By Contac t Referred To Contact Diagnoses Poor growth affecting management of mother in third trimester, single or unspecified fetus Procedures NON-STRESS TEST NON-STRESS TEST Rudolph Roy MD [address] [place] [address] Referral ID Status Reason Start Date Expiration Date Visits Requested Visits Authorized [id number] Pending Review Auto-Generat ed Referral 3 12/29/2023 4 1 [facility] for referral (narrative)* Diagnostic Procedure Only (Urgent) - Closed Specialty Diagnoses / Procedures [facility] Referred To Contact XR IMAGING Diagnoses Injury of right thumb, initial encounter Procedures XR DIGIT GENERAL 3V FRONTAL/LAT/OBL RIGHT RADEX FINGR MINIMUM 2 VIEWS Wilfrid Laura APRN.CNP [address] [place] [address] Xr Imaging [facility] Referral ID Status Reason Start Date Expiration Date V isits Requested Visits Authorized [id number] Closed Auto-Generate d Referral 07/21/2023 08/19/2024 1 1 [facility] for referral (narrative)* Diagnostic Procedure Only (Routine) - Authorized Specialty Diagnoses / Procedures Referred By Contac t Referred To Contact [facility] Diagnoses Pelvic pain in female Dermoid cyst Procedures PELVIC US WHI US PELVIC NONOBSTETRIC REAL-TIME IMAGE COMPLETE Ansley Ibrahim APRN.CNM [address] [place] [address] [facility] [address] [place] [address] Referral ID Status Reason Start Date Expiration Date Visits Requested Visits Authorized [id number] Authorized Auto-Generat ed Referral 08/24/2023 08/23/2024 1 1 * Consult, Test, Treat (Routine) - Authorized Specialty Diagnoses / Procedures Referred By Contac t Referred To Contact Gastroenterology Diagnoses Nausea and vomiting, unspecified vomiting type Abdominal pain, unspecified abdominal location History of cholecystectomy Procedures CONSULT TO GASTROENTEROLOGY OFFICE/OUTPATIENT [facility] 60 MINUTES Ansley Ibrahim APRN.CNM [address] [place] [address] Referral ID Status Reason Start Date Expiration Date Visits Requested Visits Authorized [id number] Authorized PCP Requested Referral 08/24/2023 08/23/2024 1 1 [facility] for referral (narrative)* Diagnostic Procedure Only (Urgent) - Closed Specialty Diagnoses / Procedures Referred By Contac t Referred To Contact XR IMAGING Diagnoses Injury of right thumb, initial encounter Procedures XR DIGIT GENERAL 3V FRONTAL/LAT/OBL RIGHT RADEX FINGR MINIMUM 2 VIEWS Wilfrid Laura APRN.SENIOR OCCUPATIONAL THERAPIST [address] [place] [address] [place] [address] Referral ID Status Reason Start Date Expiration Date V isits Requested Visits Authorized [id number] Closed Auto-Generate d Referral 07/21/2023 08/19/2024 1 1 [facility] for referral (narrative)* Diagnostic Procedure Only (Urgent) - Closed Specialty Diagnoses / Procedures Referred By Contac t Referred To Contact XR IMAGING Diagnoses Pain of right hand Procedures XR HAND GENERAL 3V PA/LAT/OBL RIGHT RADEX HAND MINIMUM 3 VIEWS Ansley Heller APRN.SENIOR OCCUPATIONAL THERAPIST [address] [place] [address] [place] [address] Referral ID Status Reason Start Date Expiration Date V isits Requested Visits Authorized [id number] Closed Auto-Generate d Referral 10/27/2021 11/26/2022 1 1 [facility] for referral (narrative)* Diagnostic Procedure Only (Routine) - Closed Specialty Diagnoses / Procedures Referred By Contac t Referred To Contact [facility] Diagnoses Pelvic pain in female Procedures PELVIC US [facility] US PELVIC NONOBSTETRIC REAL-TIME IMAGE COMPLETE Donna Granados MD [address] [place] [address] [address] Referral ID Status Reason Start Date Expiration Date V isits Requested Visits Authorized [id number] Closed Auto-Generate d Referral 12/13/2023 02/07/2024 1 1 [facility] for referral (narrative)No reason for referral information [facility]WHen[facility] Work Phone: [facility] N[facility]ative* Diagnostic Procedure Only (Routine) - Closed Specialty Diagnoses / Procedures Referred By Contac t Referred To Contact [facility] Diagnoses Pelvic pain in female Dermoid cyst Procedures PELVIC US [facility] US PELVIC NONOBSTETRIC REAL-TIME IMAGE COMPLETE Ansley Ibrahim RN GYN.CNM [address] [place] [address] [address] Referral ID Status Reason Start Date Expiration Date V isits Requested Visits Authorized [id number] Closed Auto-Generate d Referral 08/24/2023 08/23/2024 1 1 [facility] for visit Narrative* Diagnostic Procedure Only (Urgent) - Closed Specialty Diagnoses / Procedures Referred By Contac t Referred To Contact XR IMAGING Diagnoses Injury of right thumb, initial encounter Procedures XR DIGIT GENERAL 3V FRONTAL/LAT/OBL RIGHT RADEX FINGR MINIMUM 2 VIEWS Wilfrid Laura, RN GYN.SENIOR OCCUPATIONAL THERAPIST [address] [place] [address] [place] [address] Referral ID Status Reason Start Date Expiration Date V isits Requested Visits Authorized [id number] Closed Auto-Generate d Referral 07/21/2023 08/19/2024 1 1 [facility] for visit Narrative* Diagnostic Procedure Only (Urgent) - Closed Specialty Diagnoses / Procedures Referred By Contac t Referred To Contact XR IMAGING Diagnoses Pain of right hand Procedures XR HAND GENERAL 3V PA/LAT/OBL RIGHT RADEX HAND MINIMUM 3 VIEWS Ansley Heller, JESS.SENIOR OCCUPATIONAL THERAPIST [address] [place] [address] [place] [address] Referral ID Status Reason Start Date Expiration Date V isits Requested Visits Authorized [id number] Closed Auto-Generate d Referral 10/27/2021 11/26/2022 1 1 [facility] for visit Narrative* Diagnostic Procedure Only (Routine) - Closed Specialty Diagnoses / Procedures Referred By Contac t Referred To Contact [facility] Diagnoses Pelvic pain in female Procedures PELVIC US WHI US PELVIC NONOBSTETRIC REAL-TIME IMAGE COMPLETE Donna Granados MD [address] [place] [address] [facility] [address] [place] [address] Referral ID Status Reason Start Date Expiration Date V isits Requested Visits Authorized [id number] Closed Auto-Generate d Referral 12/13/2023 02/07/2024 1 1 [facility] Summary Purpose Family History No Family History Records Found Relationship Condition Age at Onset Recorded Date/T isabell father Diabetes mellitus Unknown mother Depression Unknown grandmother Malignant neoplasm of breast Unknown Advance Directives No Advanced Directives Records Found Advance Directive Response Recorded Date/ Time Living Will No December 14 6:38am Power of Fire Sprinkler Apparatus Inspector No December 14, 2020 6:38am Advance Directive Response Recorded Date/ Time Living Will No June 20, 2021 1 2:06am Power of Fire Sprinkler Apparatus Inspector No June 20, 2021 12:06am Advance Directive Response Recorded Date/ Time Living Will No August 11, 2021 1 :55am Power of Fire Sprinkler Apparatus Inspector No August 11, 2021 1:55am Advance Directive Response Recorded Date/ Time Living Will No August 23, 2021 5:14am Power of Fire Sprinkler Apparatus Inspector No August 23 5:14am Advance Directive Response Recorded Date/ Time Living Will No August 31, 2021 3:38pm Power of Fire Sprinkler Apparatus Inspector No August 31 3:38pm Advance Directive Response Recorded Date/ Time Living Will No August 31, 2021 8:55pm Power of Fire Sprinkler Apparatus Inspector No August 31 8:55pm Advance Directive Response Recorded Date/ Time Living Will No September 15, 2021 10:27pm Power of Fire Sprinkler Apparatus Inspector No September 15 10:27pm Advance Directive Response Recorded Date/ Time Living Will No October 14, 3:58pm Power of Fire Sprinkler Apparatus Inspector No October 14, 2021 3:58pm Advance Directive Response Recorded Date/ Time Living Will No October 14, 2:58pm Power of Fire Sprinkler Apparatus Inspector No October 14, 2021 2:58pm Advance Directive Response Recorded Date/ Time Living Will No December 24, 2 022 9:17am Power of Fire Sprinkler Apparatus Inspector No December 24, 2021 9:17am Advance Directive Response Recorded Date/ Time Living Will No January 27, 9:32am Power of Fire Sprinkler Apparatus Inspector No January 27, 2022 9:32am Advance Directive Response Recorded Date/ Time Living Will No February 13 3 1:38am Power of Fire Sprinkler Apparatus Inspector No February 13, 2 023 1:38am Advance Directive Response Recorded Date/ Time Living Will No February 13 3 4:39pm Power of Fire Sprinkler Apparatus Inspector No February 13, 2 023 4:39pm Advance Directive Response Recorded Date/ Time Living Will No February 13 3 5:39pm Power of Fire Sprinkler Apparatus Inspector No February 13, 2 023 5:39pm Advance Directive Response Recorded Date/ Time Living Will No June 02, 2022 2:50pm Power of Fire Sprinkler Apparatus Inspector No June 02 2:50pm Advance Directive Response Recorded Date/ Time Living Will No August 01, 2022 4:20am Power of Fire Sprinkler Apparatus Inspector No August 01 4:20am Advance Directive Response Recorded Date/ Time Living Will No September 13, 2022 9:59am Power of Fire Sprinkler Apparatus Inspector No September 13 9:59am Advance Directive Response Recorded Date/ Time Living Will No October 19, 2022 9:32am Power of Fire Sprinkler Apparatus Inspector No October 9:32am Advance Directive Response Recorded Date/ Time Living Will No November 06, 2022 9:55am Power of Fire Sprinkler Apparatus Inspector No October 9:55am Advance Directive Response Recorded Date/ Time Living Will No November 06, 2022 8:55am Power of Fire Sprinkler Apparatus Inspector No October 8:55am Advance Directive Response Recorded Date/ Time Living Will No February 26 5:01pm Power of Fire Sprinkler Apparatus Inspector No February 26, 2023 5:01pm Advance Directive Response Recorded Date/ Time Living Will No April 10, 2023 8:26pm Power of Fire Sprinkler Apparatus Inspector No April 09 8:26pm Advance Directive Response Recorded Date/ Time Living Will No May 01, 2023 10:53pm Power of Fire Sprinkler Apparatus Inspector No April 30 10:53pm Advance Directive Response Recorded Date/ Time Living Will No May 15, 2023 5:39am Power of Fire Sprinkler Apparatus Inspector No May 14 5:39am Advance Directive Response Recorded Date/ Time Living Will No June 13, 2023 5: 28am Power of Fire Sprinkler Apparatus Inspector No June 13, 2023 5:28am Advance Directive Response Recorded Date/ Time Do you have a Healthcare Power of Fire Sprinkler Apparatus Inspector? No June 17, 2024 12:03pm Advance Directive Response Recorded Date/ Time Do you have a Healthcare Power of Fire Sprinkler Apparatus Inspector? No June 17, 2024 12:03pm Do you have a Healthcare Power of Fire Sprinkler Apparatus Inspector? No August 23, 2024 7:03pm Advance Directive Response Recorded Date/ Time Do you have a Healthcare Power of Fire Sprinkler Apparatus Inspector? No June 17, 2024 12:03pm Do you have a Healthcare Power of Fire Sprinkler Apparatus Inspector? No August 23, 2024 7:03pm Do you have a Healthcare Power of Fire Sprinkler Apparatus Inspector? No August 24, 2024 11:15am Chief Complaint and Reason for Visit Chief Complaint LOWER ABDOMINAL PAIN NON STRESS Chief Complaint LOWER ABDOMINAL PAIN NON STRESS asthma Chief Complaint LOWER ABDOMINAL PAIN NON STRESS asthma LABOR Reason for Visit Intrauterine growth restriction, antepartum 40 weeks gestation of Spontaneous vaginal delivery Chief Complaint NON STRESS asthma LABOR flank pain Reason for Visit Intrauterine growth restriction, antepartum Chief Complaint NON STRESS asthma LABOR flank pain D&C, RETAINING PRODUCTS OF CONCEPTION Reason for Visit Intrauterine growth restriction, antepartum Pelvic pain Retained products of conception Vaginal bleeding Chief Complaint NON STRESS asthma LABOR flank pain DILATION AND CURETTAGE Reason for Visit Intrauterine growth restriction, antepartum Acute blood loss as cause of postoperative anemia Pelvic pain Retained products of conception Vaginal bleeding Chief Complaint NON STRESS asthma LABOR flank pain DILATION AND CURETTAGE ACUTE CHOLECYSTITIS ACUTE CHOLECYSTITIS Reason for Visit Intrauterine growth restriction, antepartum Acute blood loss as cause of postoperative anemia Pelvic pain Retained products of conception Vaginal bleeding Abdominal pain Acute calculous cholecystitis Chief Complaint asthma LABOR flank pain DILATION AND CURETTAGE ACUTE CHOLECYSTITIS ACUTE CHOLECYSTITIS 7 DAY F/U Gall Bladder 09/16 EAR Reason for Visit Acute blood loss as cause of postoperative anemia Pelvic pain Retained products of conception Vaginal bleeding Anemia Abdominal pain Acute calculous cholecystitis Status post cholecystectomy Chief Complaint DILATION AND CURETTA GE ACUTE CHOLECYSTITIS ACUTE CHOLECYSTITIS 7 DAY F/U Gall Bladder 09/16 EAR Reason for Visit Acute blood loss as cause of postoperative anemia Pelvic pain Retained products of conception Vaginal bleeding Anemia Abdominal pain Acute calculous cholecystitis Status post cholecystectomy Chief Complaint ACUTE CHOLECYSTITIS ACUTE CHOLECYSTITIS 7 DAY F/U Gall Bladder 09/16 EAR abd pain abd pain, N&V green liquid and green/mucous BM E ORDERS Reason for Visit Anemia Abdominal pain Acute calculous cholecystitis Status post cholecystectomy Constipation Nausea & vomiting Upper abdominal pain Chief Complaint EAR abd pain abd pain, N&V green liquid and green/mucous BM E ORDERS S/P OV FOR ABD. PAIN N&V 12/29 S/P ABDOMINAL PAIN, N&V Reason for Visit Constipation Nausea & vomiting Upper abdominal pain Upper abdominal pain Nausea & vomiting Status post cholecystectomy Upper abdominal pain Chief Complaint abd pain abd pain, N&V green liquid and green/mucous BM E ORDERS S/P OV FOR ABD. PAIN N&V 12/29 S/P ABDOMINAL PAIN, N&V 2 W FU MED CHECK abd pain Reason for Visit Constipation Nausea & vomiting Upper abdominal pain Upper abdominal pain Nausea & vomiting Status post cholecystectomy Upper abdominal pain Bile reflux gastritis Nausea & vomiting Upper abdominal pain Chief Complaint abd pain abd pain, N&V green liquid and green/mucous BM E ORDERS S/P OV FOR ABD. PAIN N&V 12/29 S/P ABDOMINAL PAIN, N&V 2 W FU MED CHECK abd pain abdominal pain Reason for Visit Constipation Nausea & vomiting Upper abdominal pain Upper abdominal pain Nausea & vomiting Status post cholecystectomy Upper abdominal pain Bile reflux gastritis Nausea & vomiting Upper abdominal pain Chief Complaint S/P OV FOR ABD. PAIN N&V 12/29 S/P ABDOMINAL PAIN, N&V 2 W FU MED CHECK abd pain abdominal pain 2 W FU MED CHECK 4 W FU MED CHECK ABD PAIN Reason for Visit Upper abdominal pain Nausea & vomiting Status post cholecystectomy Upper abdominal pain Nausea & vomiting Upper abdominal pain Bile reflux gastritis Nausea & vomiting Bile reflux gastritis Bile reflux gastritis Chief Complaint 2 W FU MED CHECK abd pain abdominal pain 2 W FU MED CHECK 4 W FU MED CHECK ABD PAIN abd pain ABD PAIN GENERAL ILLNESS Reason for Visit Nausea & vomiting Upper abdominal pain Bile reflux gastritis Nausea & vomiting Bile reflux gastritis Bile reflux gastritis Chief Complaint 4 W FU MED CHECK ABD PAIN abd pain ABD PAIN GENERAL ILLNESS abd pain N/V VOMITING BLOOD Consult N/V, ABD PAIN Reason for Visit Bile reflux gastriti s Cannabis hyperemesis syndrome concurrent with and due to cannabis abuse Constipation Chief Complaint GENERAL ILLNESS abd pain N/V VOMITING BLOOD Consult N/V, ABD PAIN ABD PAIN Reason for Visit Cannabis hyperemesis syndrome concurrent with and due to cannabis abuse Constipation Chief Complaint VOMITING BLOOD Consult N/V, ABD PAIN ABD PAIN gastroparesis ABD PAIN 1HR GLUCOSE Reason for Visit Cannabis hyperemesis syndrome concurrent with and due to cannabis abuse Constipation Chief Complaint Consult N/V, ABD PAIN ABD PAIN gastroparesis ABD PAIN 1HR GLUCOSE LOW BODY TEMP Reason for Visit Cannabis hyperemesis syndrome concurrent with and due to cannabis abuse Constipation Chief Complaint ABD PAIN gastroparesis ABD PAIN 1HR GLUCOSE LOW BODY TEMP 4 MO FU SROM R/L ROM Reason for Visit Constipation Cannabis hyperemesis syndrome concurrent with and due to cannabis abuse 33 weeks gestation of High risk multigravida in third trimester 34 weeks gestation of IUGR (intrauterine growth restriction) Vaginal bleeding Chief Complaint LOW BODY TEMP 4 MO FU SROM R/L ROM VAGINAL DELIVERY NAUSEA/VOMITING Laparoscopic, Salpingectomy Reason for Visit Constipation Cannabis hyperemesis syndrome concurrent with and due to cannabis abuse 33 weeks gestation of High risk multigravida in third trimester 34 weeks gestation of Vaginal bleeding Chief Complaint SROM R/L ROM VAGINAL DELIVERY NAUSEA/VOMITING Laparoscopic, Salpingectomy N/V Reason for Visit 33 weeks gestation o f High risk multigravida in third trimester 34 weeks gestation of Vaginal bleeding Chief Complaint VAGINAL DELIVERY NAUSEA/VOMITING Laparoscopic, Salpingectomy N/V asthma Chief Complaint VAGINAL DELIVERY NAUSEA/VOMITING Laparoscopic, Salpingectomy N/V asthma ASTHMA Chief Complaint NAUSEA/VOMITING Laparoscopic, Salpingectomy N/V asthma ASTHMA UPPER ABD PAIN Chief Complaint NAUSEA/VOMITING Laparoscopic, Salpingectomy N/V asthma ASTHMA UPPER ABD PAIN 6 MO FU abd pain Reason for Visit Constipation Cannabis hyperemesis syndrome concurrent with and due to cannabis abuse Chief Complaint Admit Date abd June 17, 2024 11:19 am Chief Complaint Admit Date abd June 17, 2024 11:19 am ER FU SWOLLEN BOWEL June 19, 2024 1:17p m Chief Complaint Admit Date abd June 17, 2024 11:19 am ER FU SWOLLEN BOWEL June 19, 2024 1:17p m cap endo June 27, 2024 10:54 am Reason for Visit Admit Date Nausea & vomiting June 19, 2024 1:17p m Gastroparesis June 19, 2024 1:17p m Marijuana use June 19, 2024 1:17p m Chief Complaint Admit Date abd June 17, 2024 11:19 am ER FU SWOLLEN BOWEL June 19, 2024 1:17p m cap endo June 27, 2024 10:54 am Test Result July 12, 2024 1:00p m Chief Complaint Admit Date abd June 17, 2024 11:19 am ER FU SWOLLEN BOWEL June 19, 2024 1:17p m cap endo June 27, 2024 10:54 am Test Result July 12, 2024 1:00p m ABDOMINAL PAIN August 23, 2024 5:20 pm Reason for Visit Admit Date Nausea & vomiting June 19, 2024 1:17p m Gastroparesis June 19, 2024 1:17p m Marijuana use June 19, 2024 1:17p m Nausea & vomiting July 12, 2024 1:00p m Abdominal pain July 12, 2024 1:00p m Marijuana use July 12, 2024 1:00p m Chief Complaint Admit Date abd June 17, 2024 11:19 am ER FU SWOLLEN BOWEL June 19, 2024 1:17p m cap endo June 27, 2024 10:54 am Test Result July 12, 2024 1:00p m ABDOMINAL PAIN August 23, 2024 5:20 pm CRAMPS August 24, 2024 10:5 1am Health Concerns Infection Onset Date Last Indicated [...] CC Education - COMMON 11/22/2022 Education - [place] 11/22/2022 Reason for Referral Specialty Diagnoses / Procedures Referred By Contsevero t Referred To Contact Diagnoses Chronic pelvic pain in female Procedures CONSULT TO UNPAID INTERN PELVIC PAIN OFFICE/OUTPATIENT [facility] 60 MINUTES Donna Granados MD [address] [place] [address] Referral ID Status Reason Start Date Expiration Date Visits Requested Visits Authorized [id number] Authorized PCP Requested Referral Auto-Generate d Referral 12/13/2023 03/12/2024 1 1 Additional Source Comments INFORMATION SOURCE (unrecogn ized section and content) DATE CREATED AUTHOR 01/15/2018 [facility] DATE CREATED AUTHOR AUTHOR'S ORGANIZ ATION 10/10/2020 [facility] DATE CREATED AUTHOR AUTHOR'S ORGANIZ ATION 07/24/2021 [facility] DATE CREATED AUTHOR AUTHOR'S ORGANIZ ATION 02/16/2022 [facility] ([place]) DATE CREATED AUTHOR AUTHOR'S ORGANIZ ATION 08/27/2022 [facility] DATE CREATED AUTHOR AUTHOR'S ORGANIZ ATION 01/18/2023 [facility] DATE CREATED AUTHOR AUTHOR'S ORGANIZ ATION 08/25/2023 [facility] DATE CREATED AUTHOR AUTHOR'S ORGANIZ ATION 12/11/2023 [facility] DATE CREATED AUTHOR AUTHOR'S ORGANIZ ATION 12/19/2023 [facility] DATE CREATED AUTHOR AUTHOR'S ORGANIZ ATION 06/27/2024 [facility] DATE CREATED AUTHOR AUTHOR'S ORGANIZ ATION 09/12/2024 [facility] Goals (unrecognized section and content) Goals may be documented in a n alternate sectionGoals may be documented in an alternate section No data available for this sectionGoals may be documented in an alternate sectionGoals may be documented in an alternate sectionGoals may be documented in an alternate sectionGoals may be documented in an alternate sectionGoals may be documented in an alternate sectionGoals may be documented in an alternate section No data available for this sectionGoals may be documented in an alternate sectionGoals may be documented in an alternate sectionGoals may be documented in an alternate sectionGoals may be documented in an alternate sectionGoals may be documented in an alternate sectionGoals may be documented in an alternate section Source Comments (unrecognize d section and content) In the event this informatio n is protected by the Federal Confidentiality of Alcohol and Drug Abuse Patient Records regulations: The Federal rules restrict any use of the information to criminally investigate or prosecute any alcohol or drug abuse patient.[facility] the event this information is protected by the Federal Confidentiality of Alcohol and Drug Abuse Patient Records regulations: The Federal rules restrict any use of the information to criminally investigate or prosecute any alcohol or drug abuse patient.[facility] the event this information is protected by the Federal Confidentiality of Alcohol and Drug Abuse Patient Records regulations: The Federal rules restrict any use of the information to criminally investigate or prosecute any alcohol or drug abuse patient.[facility] the event this information is protected by the Federal Confidentiality of Alcohol and Drug Abuse Patient Records regulations: The Federal rules restrict any use of the information to criminally investigate or prosecute any alcohol or drug abuse patient.[facility] the event this information is protected by the Federal Confidentiality of Alcohol and Drug Abuse Patient Records regulations: The Federal rules restrict any use of the information to criminally investigate or prosecute any alcohol or drug abuse patient.[facility] the event this information is protected by the Federal Confidentiality of Alcohol and Drug Abuse Patient Records regulations: The Federal rules restrict any use of the information to criminally investigate or prosecute any alcohol or drug abuse patient.[facility] the event this information is protected by the Federal Confidentiality of Alcohol and Drug Abuse Patient Records regulations: The Federal rules restrict any use of the information to criminally investigate or prosecute any alcohol or drug abuse patient.[facility] the event this information is protected by the Federal Confidentiality of Alcohol and Drug Abuse Patient Records regulations: The Federal rules restrict any use of the information to criminally investigate or prosecute any alcohol or drug abuse patient.[facility] the event this information is protected by the Federal Confidentiality of Alcohol and Drug Abuse Patient Records regulations: The Federal rules restrict any use of the information to criminally investigate or prosecute any alcohol or drug abuse patient.[facility] the event this information is protected by the Federal Confidentiality of Alcohol and Drug Abuse Patient Records regulations: The Federal rules restrict any use of the information to criminally investigate or prosecute any alcohol or drug abuse patient.[facility] the event this information is protected by the Federal Confidentiality of Alcohol and Drug Abuse Patient Records regulations: The Federal rules restrict any use of the information to criminally investigate or prosecute any alcohol or drug abuse patient.[facility] the event this information is protected by the Federal Confidentiality of Alcohol and Drug Abuse Patient Records regulations: The Federal rules restrict any use of the information to criminally investigate or prosecute any alcohol or drug abuse patient.[facility] the event this information is protected by the Federal Confidentiality of Alcohol and Drug Abuse Patient Records regulations: The Federal rules restrict any use of the information to criminally investigate or prosecute any alcohol or drug abuse patient.[facility] the event this information is protected by the Federal Confidentiality of Alcohol and Drug Abuse Patient Records regulations: The Federal rules restrict any use of the information to criminally investigate or prosecute any alcohol or drug abuse patient.[facility] the event this information is protected by the Federal Confidentiality of Alcohol and Drug Abuse Patient Records regulations: The Federal rules restrict any use of the information to criminally investigate or prosecute any alcohol or drug abuse patient.[facility] the event this information is protected by the Federal Confidentiality of Alcohol and Drug Abuse Patient Records regulations: The Federal rules restrict any use of the information to criminally investigate or prosecute any alcohol or drug abuse patient.[facility] the event this information is protected by the Federal Confidentiality of Alcohol and Drug Abuse Patient Records regulations: The Federal rules restrict any use of the information to criminally investigate or prosecute any alcohol or drug abuse patient.[facility] Hospital[facility] the event this information is protected by the Federal Confidentiality of Alcohol and Drug Abuse Patient Records regulations: The Federal rules restrict any use of the information to criminally investigate or prosecute any alcohol or drug abuse patient.[facility] the event this information is protected by the Federal Confidentiality of Alcohol and Drug Abuse Patient Records regulations: The Federal rules restrict any use of the information to criminally investigate or prosecute any alcohol or drug abuse patient.[facility] Hospital[facility] the event this information is protected by the Federal Confidentiality of Alcohol and Drug Abuse Patient Records regulations: The Federal rules restrict any use of the information to criminally investigate or prosecute any alcohol or drug abuse patient.[facility] Hospital[facility] the event this information is protected by the Federal Confidentiality of Alcohol and Drug Abuse Patient Records regulations: The Federal rules restrict any use of the information to criminally investigate or prosecute any alcohol or drug abuse patient.[facility] Hospital[facility] the event this information is protected by the Federal Confidentiality of Alcohol and Drug Abuse Patient Records regulations: The Federal rules restrict any use of the information to criminally investigate or prosecute any alcohol or drug abuse patient.[facility] the event this information is protected by the Federal Confidentiality of Alcohol and Drug Abuse Patient Records regulations: The Federal rules restrict any use of the information to criminally investigate or prosecute any alcohol or drug abuse patient.[facility] the event this information is protected by the Federal Confidentiality of Alcohol and Drug Abuse Patient Records regulations: The Federal rules restrict any use of the information to criminally investigate or prosecute any alcohol or drug abuse patient.[facility] Hospital[facility] the event this information is protected by the Federal Confidentiality of Alcohol and Drug Abuse Patient Records regulations: The Federal rules restrict any use of the information to criminally investigate or prosecute any alcohol or drug abuse patient.[facility] HospitalIn the event this information is protected by the Federal Confidentiality of Alcohol and Drug Abuse Patient Records regulations: The Federal rules restrict any use of the information to criminally investigate or prosecute any alcohol or drug abuse patient.[facility] the event this information is protected by the Federal Confidentiality of Alcohol and Drug Abuse Patient Records regulations: The Federal rules restrict any use of the information to criminally investigate or prosecute any alcohol or drug abuse patient.[facility] the event this information is protected by the Federal Confidentiality of Alcohol and Drug Abuse Patient Records regulations: The Federal rules restrict any use of the information to criminally investigate or prosecute any alcohol or drug abuse patient.[facility] the event this information is protected by the Federal Confidentiality of Alcohol and Drug Abuse Patient Records regulations: The Federal rules restrict any use of the information to criminally investigate or prosecute any alcohol or drug abuse patient.[facility] the event this information is protected by the Federal Confidentiality of Alcohol and Drug Abuse Patient Records regulations: The Federal rules restrict any use of the information to criminally investigate or prosecute any alcohol or drug abuse patient.[facility] the event this information is protected by the Federal Confidentiality of Alcohol and Drug Abuse Patient Records regulations: The Federal rules restrict any use of the information to criminally investigate or prosecute any alcohol or drug abuse patient.[facility] the event this information is protected by the Federal Confidentiality of Alcohol and Drug Abuse Patient Records regulations: The Federal rules restrict any use of the information to criminally investigate or prosecute any alcohol or drug abuse patient.[facility] the event this information is protected by the Federal Confidentiality of Alcohol and Drug Abuse Patient Records regulations: The Federal rules restrict any use of the information to criminally investigate or prosecute any alcohol or drug abuse patient.[facility] the event this information is protected by the Federal Confidentiality of Alcohol and Drug Abuse Patient Records regulations: The Federal rules restrict any use of the information to criminally investigate or prosecute any alcohol or drug abuse patient.[facility] the event this information is protected by the Federal Confidentiality of Alcohol and Drug Abuse Patient Records regulations: The Federal rules restrict any use of the information to criminally investigate or prosecute any alcohol or drug abuse patient.[facility] the event this information is protected by the Federal Confidentiality of Alcohol and Drug Abuse Patient Records regulations: The Federal rules restrict any use of the information to criminally investigate or prosecute any alcohol or drug abuse patient.[facility] the event this information is protected by the Federal Confidentiality of Alcohol and Drug Abuse Patient Records regulations: The Federal rules restrict any use of the information to criminally investigate or prosecute any alcohol or drug abuse patient.[facility] the event this information is protected by the Federal Confidentiality of Alcohol and Drug Abuse Patient Records regulations: The Federal rules restrict any use of the information to criminally investigate or prosecute any alcohol or drug abuse patient.[facility] the event this information is protected by the Federal Confidentiality of Alcohol and Drug Abuse Patient Records regulations: The Federal rules restrict any use of the information to criminally investigate or prosecute any alcohol or drug abuse patient.[facility] the event this information is protected by the Federal Confidentiality of Alcohol and Drug Abuse Patient Records regulations: The Federal rules restrict any use of the information to criminally investigate or prosecute any alcohol or drug abuse patient.[facility] the event this information is protected by the Federal Confidentiality of Alcohol and Drug Abuse Patient Records regulations: The Federal rules restrict any use of the information to criminally investigate or prosecute any alcohol or drug abuse patient.[facility] the event this information is protected by the Federal Confidentiality of Alcohol and Drug Abuse Patient Records regulations: The Federal rules restrict any use of the information to criminally investigate or prosecute any alcohol or drug abuse patient.[facility] the event this information is protected by the Federal Confidentiality of Alcohol and Drug Abuse Patient Records regulations: The Federal rules restrict any use of the information to criminally investigate or prosecute any alcohol or drug abuse patient.[facility] the event this information is protected by the Federal Confidentiality of Alcohol and Drug Abuse Patient Records regulations: The Federal rules restrict any use of the information to criminally investigate or prosecute any alcohol or drug abuse patient.[facility] the event this information is protected by the Federal Confidentiality of Alcohol and Drug Abuse Patient Records regulations: The Federal rules restrict any use of the information to criminally investigate or prosecute any alcohol or drug abuse patient.[facility] the event this information is protected by the Federal Confidentiality of Alcohol and Drug Abuse Patient Records regulations: The Federal rules restrict any use of the information to criminally investigate or prosecute any alcohol or drug abuse patient.[facility] the event this information is protected by the Federal Confidentiality of Alcohol and Drug Abuse Patient Records regulations: The Federal rules restrict any use of the information to criminally investigate or prosecute any alcohol or drug abuse patient.[facility] the event this information is protected by the Federal Confidentiality of Alcohol and Drug Abuse Patient Records regulations: The Federal rules restrict any use of the information to criminally investigate or prosecute any alcohol or drug abuse patient.[facility] the event this information is protected by the Federal Confidentiality of Alcohol and Drug Abuse Patient Records regulations: The Federal rules restrict any use of the information to criminally investigate or prosecute any alcohol or drug abuse patient.[facility] the event this information is protected by the Federal Confidentiality of Alcohol and Drug Abuse Patient Records regulations: The Federal rules restrict any use of the information to criminally investigate or prosecute any alcohol or drug abuse patient.[facility] the event this information is protected by the Federal Confidentiality of Alcohol and Drug Abuse Patient Records regulations: The Federal rules restrict any use of the information to criminally investigate or prosecute any alcohol or drug abuse patient.[facility] Reason for Visit (unrecogniz ed section and content) Reason Comments US Specialty Diagnoses / Procedures Referred By Contac t Referred To Contact [facility] Diagnoses Poor growth affecting management of mother in third trimester, single or unspecified fetus Supervision of other high risk pregnancies, third trimester Procedures BIOPHYSICAL PROFILE US WHI BIOPHYSICAL PROFILE NON-STRESS TESTING Donna Granados MD [address] [place] [address] [facility] [address] [place] [address] Referral ID Status Reason Start Date Expiration Date V isits Requested Visits Authorized [id number] Closed Auto-Generate d Referral 2022 2023 6 [...] Reason Comments Initial OB Visit [place] from [place] Reason Onset Date Comments Care 12/06/2022 Reason Comments Patient Question Reason Onset Date Comments Care Care 12/20/2022 Reason Comments OB Bleeding Specialty Diagnoses / Procedures Referred By Kim t Referred To Contact Diagnoses Vaginal bleeding Procedures NA [facility] [address] [place] [address] Referral ID Status Reason Start Date Expiration Date Visits Re quested Visits Authorized [id number] 1 1 Reason Comments Consult Specialty Diagnoses / Procedures Referred By Kim t Referred To Contact [facility] Diagnoses Poor growth affecting management of mother in third trimester, single or unspecified fetus Supervision of other high risk pregnancies, third trimester Procedures BIOPHYSICAL PROFILE US WHI BIOPHYSICAL PROFILE NON-STRESS TESTING Donna Granados MD [address] [place] [address] [facility] [address] [place] [address] Reason Onset Date Comments Care 12/31/2022 Reason [...] Comments Nasal Congestion Sob, asthma, feels l jnon there is fluid in bilateral ears x 2days Reason Comments Thumb Injury Right thumb smashed in car door x1 day Reason Comments Pelvic Pain Reason Comments Cough Chest congestion and tightness x1 week, ST for first 2 days Reason Comments Vaginal Problem Urinary Problem Reason Comments Pelvic Pain Reason Comments Sore Throat headache x 2 days Reason Comments Problem Visit Reason Comments Insurance Authorization Reason Comments Pelvic Pain Reason Comments Follow Up Discuss surgery Reason Comments Orders Reason Comments Abdominal Pain Hx gallstones, D&C, emesis, nausea, 2 years, GI doctor says she fine, last 2 months Left lower back wraps around front and rib area. Also upper ABD. Reason Comments STD Care Team (unrecognized sect ion and content) Care Team Personnel Name: PHYSICIAN, NONE Position: Physician Member Role: Primary Care Physician Name: MARICRUZ ZAMUDIO MD Position: ED Physician Member Role: Attending Physician Address: Address: [facility] [address] [place], [place] [address] Name: Moni Sanchez RN Position: ED RN Member Role: ED RN Care Teams (unrecognized sec tion and content) Team Status: Active Member Role Status Dates No Primary Care Physician Family Provider Active Dr. Earl Thornton MD Primary Care Provider Active Team Status: Inactive Member Role Status Dates No Primary Care Physician Primary Care Provider, Refer ring Provider Active Dr. Earl Thornton MD Attending Provider Active Team Status: Active Member Role Status Dates No Primary Care Physician Primary Care Provider, Refer ring Provider Active Dr. Earl Thornton MD Attending Provider, Other Provi arely Active Team Status: Inactive Member Role Status Dates Dr. Earl Thornton MD Primary Care Prov ider, Attending Provider, Referring Provider Active Team Status: Inactive Member Role Status Dates Dr. Earl Thornton MD Primary Care Provider Active Dr. Wilfredo Mendez MD Attending Provider, Emergency Provi arely Active Team Status: Inactive Member Role Status Dates Dr. Earl Thornton MD Primary Care Provider Active Dr. Marcos Arizmendi MD Attending Provider, Emergency Pro vider Active Team Status: Inactive Member Role Status Dates Dr. Earl Thornton MD Primary Care Provider Active Ed Physician Provider Emergency Provider Active Team Status: Active Member Role Status Dates No Primary Care Physician Family Provider Active No Primary Care Physician Primary Care Provider Active Team Status: Inactive Member Role Status Dates Dr. Earl Thornton MD Primary Care Provider Active Ed Physician Provider Attending Provider, Emergency Pr ovider Active Team Status: Inactive Member Role Status Dates Dr. Marcos Arizmendi MD Attending Provider, Emergency Pro vider Active No Primary Care Physician Primary Care Provider Active Team Status: Inactive Member Role Status Dates No Primary Care Physician Primary Care Provider Active Dr. Marcos Arizmendi MD Attending Provider, Emergency Pro vider Active Team Status: Inactive Member Role Status Dates No Primary Care Physician Primary Care Provider Active Dr. Charito Berman DO Emergency Provider Active Team Status: Inactive Member Role Status Dates Dr. Earl Thornton MD Referring Provider Active Dr. Rodrick Kowalski DO Attending Provider Active No Primary Care Physician Primary Care Provider Active Team Status: Inactive Member Role Status Dates No Primary Care Physician Primary Care Provider Active Dr. Charito Berman DO Attending Provider, Emergency Pro vider Active Team Status: Inactive Member Role Status Dates No Primary Care Physician Primary Care Provider Active Dr. Stephanie Menchaca MD Attending Provider, Emergency Provider Active Team Status: Inactive Member Role Status Dates No Primary Care Physician Primary Care Provider Active Dr. Pieter Smith DO Attending Provider, Emergency P rovider Active Team Status: Inactive Member Role Status Dates No Primary Care Physician Primary Care Provider Active Dr. Wilfrid Avila DO Attending Provider, Emergency Pro vider Active Team Status: Inactive Member Role Status Dates No Primary Care Physician Primary Care Provider Active Dr. Sandip Stanley MD Emergency Provider Active Team Status: Inactive Member Role Status Dates No Primary Care Physician Primary Care Provider Active Dr. Sandip Stanley MD Attending Provider, Emergency Provider Active Team Status: Inactive Member Role Status Dates No Primary Care Physician Primary Care Provider Active Dr. Hamzah Holden DO Emergency Provider Active Team Status: Inactive Member Role Status Dates No Primary Care Physician Primary Care Provider Active Dr. Hamzah Holden DO Attending Provider, Emergency Provide r Active Team Status: Inactive Member Role Status Dates No Primary Care Physician Primary Care Provider Active Dr. Mike Rodriguez MD Attending Provider, Referring Pr ovider Active Team Status: Inactive Member Role Status Dates No Primary Care Physician Primary Care Provider Active Dr. Davis Dorman MD Emergency Provider Active Team Status: Inactive Member Role Status Dates No Primary Care Physician Primary Care Provider, Refer ring Provider Active Dr. Rodrick Kowalski DO Attending Provider Active Team Status: Inactive Member Role Status Dates No Primary Care Physician Primary Care Provider Active Dr. Davis Dorman MD Attending Provider, Emergency Provider Active Team Status: Inactive Member Role Status Dates No Primary Care Physician Primary Care Provider Active Dr. Donna Granados MD Attending Provider, Referring Provider Active Team Status: Inactive Member Role Status Dates No Primary Care Physician Primary Care Provider Active Dr. Chani Hernandez DO Attending Provider, Referring Pr ovider Active Team Status: Inactive Member Role Status Dates No Primary Care Physician Primary Care Provider Active Dr. Donna Granados MD Admit Provider Active Ansley Ibrahim CNM Attending Provider, Referring Prov ider Active Team Status: Inactive Member Role Status Dates No Primary Care Physician Primary Care Provider Active Dr. Angeline Del Castillo MD Attending Provider, R eferring Provider Active Team Status: Inactive Member Role Status Dates No Primary Care Physician Primary Care Provider Active Dr. Marcos Arizmendi MD Emergency Provider Active Team Status: Inactive Member Role Status Dates No Primary Care Physician Primary Care Provider Active Dr. Angeline Chu MD Attending Provider, Referring Provider Active Team Status: Inactive Member Role Status Dates No Primary Care Physician Primary Care Provider Active Dr. Pieter Smith DO Emergency Provider Active Team Status: Active Member Role Status Dates No Primary Care Physician Family Provider Active Out of Town Doctor Primary Care Provider Active Team Status: Inactive Member Role Status Dates Out of Town Doctor Primary Care Provider Active Dr. Davis Dorman MD Emergency Provider Active Team Status: Inactive Member Role Status Dates Dr. Rodrick Kowalski DO Attending Provider, Referring Provider Active No Primary Care Physician Primary Care Provider Active Team Status: Inactive Member Role Status Dates Out of Town Doctor Primary Care Provider Active Dr. Davis Dorman MD Attending Provider, Emergency Provider Active Team Status: Inactive Member Role Status Dates No Primary Care Physician Primary Care Provider Active Doe Domniguez MD Emergency Provider Active Government Teacher Relationship Specialty Start Date End Date Pcp, No, RN GYN PCP - General Adult Health 10/11/23 05/07/24 Government Teacher Relationship Specialty Start Date End Date Pcp, No, RN GYN PCP - General Adult Health 10/11/23 05/07/24 Government Teacher Relationship Specialty Start Date End Date Pcp, No, RN GYN PCP - General Adult Health 10/11/23 05/07/24 Government Teacher Relationship Specialty Start Date End Date Pcp, No, RN GYN PCP - General Adult Health 10/11/23 05/07/24 Government Teacher Relationship Specialty Start Date End Date Pcp, No, RN GYN PCP - General Adult Health 10/11/23 05/07/24 Government Teacher Relationship Specialty Start Date End Date Pcp, No, RN GYN PCP - General Adult Health 10/11/23 05/07/24 Government Teacher Relationship Specialty Start Date End Date Pcp, No, RN GYN PCP - General Adult Health 10/11/23 05/07/24 Government Teacher Relationship Specialty Start Date End Date Pcp, No, RN GYN PCP - General Adult Health 10/11/23 05/07/24 Government Teacher Relationship Specialty Start Date End Date Pcp, No, RN GYN PCP - General Adult Health 10/11/23 05/07/24 Government Teacher Relationship Specialty Start Date End Date Pcp, No, RN GYN PCP - General Adult Health 10/11/23 05/07/24 Government Teacher Relationship Specialty Start Date End Date Pcp, No, RN GYN PCP - General Adult Health 10/11/23 05/07/24 Government Teacher Relationship Specialty Start Date End Date Pcp, No, RN GYN PCP - General Adult Health 10/11/23 05/07/24 Government Teacher Relationship Specialty Start Date End Date Pcp, No, RN GYN PCP - General Adult Health 10/11/23 05/07/24 Team Status: Active Member Role Status Dates No Primary Care Physician Primary Care Provider Active Team Status: Inactive Member Role Status Dates No Primary Care Physician Primary Care Provider Active Start: June 17, 2024 End: June 17, 2024 Dr. aDvis Dorman MD Emergency Provider Active Start: June 17, 2024 End: June 17, 2024 Team Status: Inactive Member Role Status Dates No Primary Care Physician Primary Care Provider Active Start: June 19, 2024 End: June 19, 2024 No Primary Care Physician Referring Provider Active Start: June 19, 2024 End: June 19, 2024 ANDRE Cochran Attending Provider Active S tart: June 19, 2024 End: June 19, 2024 Team Status: Inactive Member Role Status Dates No Primary Care Physician Primary Care Provider Active Start: June 17, 2024 End: June 17, 2024 Dr. Davis Dorman MD Attending Provider Active Start: June 17, 2024 End: June 17, 2024 Dr. Davis Dorman MD Emergency Provider Active Start: June 17, 2024 End: June 17, 2024 Team Status: Inactive Member Role Status Dates No Primary Care Physician Primary Care Provider Active Start: June 27, 2024 End: June 27, 2024 No Primary Care Physician Referring Provider Active Start: June 27, 2024 End: June 27, 2024 Dr. Rodrick Kowalski DO Attending Provider Active Start: June 27, 2024 End: June 27, 2024 Government Teacher Relationship Specialty Start Date End Date Pcp, WendyJESS PCP - [facility] 10/11/23 05/07/24 Team Status: Inactive Member Role Status Dates No Primary Care Physician Primary Care Provider Active Start: July 12, 2024 End: July 12, 2024 No Primary Care Physician Referring Provider Active Start: July 12, 2024 End: July 12, 2024 ANDRE Cochran Attending Provider Active S tart: July 12, 2024 End: July 12, 2024 Team Status: Active Member Role/Relationship Status Dates No Primary Care Physician Primary Care Provider Active Team Status: Inactive Member Role/Relationship Status Dates No Primary Care Physician Primary Care Provider Active Start: June 17, 2024 End: June 17, 2024 Dr. Davis Dorman MD Attending Provider Active Start: June 17, 2024 End: June 17, 2024 Dr. Davis Dorman MD Emergency Provider Active Start: June 17, 2024 End: June 17, 2024 Team Status: Inactive Member Role/Relationship Status Dates No Primary Care Physician Primary Care Provider Active Start: June 19, 2024 End: June 19, 2024 No Primary Care Physician Referring Provider Active Start: June 19, 2024 End: June 19, 2024 ANDRE Cochran Attending Provider Active S tart: June 19, 2024 End: June 19, 2024 Team Status: Inactive Member Role/Relationship Status Dates No Primary Care Physician Primary Care Provider Active Start: June 27, 2024 End: June 27, 2024 No Primary Care Physician Referring Provider Active Start: June 27, 2024 End: June 27, 2024 Dr. Rodrick Kowalski DO Attending Provider Active Start: June 27, 2024 End: June 27, 2024 Team Status: Inactive Member Role/Relationship Status Dates No Primary Care Physician Primary Care Provider Active Start: July 12, 2024 End: July 12, 2024 No Primary Care Physician Referring Provider Active Start: July 12, 2024 End: July 12, 2024 ANDRE Cochran Attending Provider Active S tart: July 12, 2024 End: July 12, 2024 Team Status: Inactive Member Role/Relationship Status Dates No Primary Care Physician Primary Care Provider Active Start: August 23, 2024 End: August 23, 2024 Dr. Kody العلي , DO Emergency Provider Activ e Start: August 23, 2024 End: August 23, 2024 Team Status: Inactive Member Role/Relationship Status Dates No Primary Care Physician Primary Care Provider Active Start: August 24, 2024 End: August 24, 2024 Dr. Clarissa Marina , DO Emergency Provider Active Start: August 24, 2024 End: August 24, 2024 Ordered Prescriptions (unrec ognized section and content) Prescription Sig Dispensed Refills Start Date End Da te ondansetron (ZOFRAN-ODT) 4 MG disintegrating tablet Take 1 tablet by mouth every 8 hours as needed for Nausea or Vomiting 30 tablet 0 08/19/2023 Scheduled Active and Recently Administ ered Medications (unrecognized section and content) Medication Order 08/17/2023 08/18/2023 08/19/2023 diphenhydrAMINE (BENADRYL) injection 25 mg (COMPLETED) 25 mg, IntraVENous, ONCE, 1 dose, On Tue08/19/23 at 1145, IV Push at rate not to exceed 25 mg/min. 1146 (Given - Provid er: Juice Cavanaugh RN) ketorolac (TORADOL) injection 30 mg (COMPLETED) 30 mg, IntraVENous, ONCE, 1 dose, On Tue08/19/23 at 0900, Do not administer for more than 5 days. 0907 (Given - Provid er: Juice Cavanaugh, RN) metoclopramide (REGLAN) injection 10 mg (COMPLETED) 10 mg, IntraVENous, ONCE, 1 dose, On Tue08/19/23 at 1145, IV Push: Max 10 mg over 1-2 minutes. 1146 (Given - Provid er: Juice Cavanaugh, RN) ondansetron (ZOFRAN) injection 4 mg (COMPLETED) 4 mg, IntraVENous, ONCE, 1 dose, On Tue08/19/23 at 0900 0908 (Given - Provid er: Juice Cavanaugh RN) sodium chloride 0.9 % bolus 1,000 mL (COMPLETED) 1,000 mL (10.3 mL/kg), IntraVENous, at 1,000 mL/hr, Administer over 1 Hours, ONCE, On Tue08/19/23 at 0900, For 1 dose, May administer over 30 minutes if well tolerated. 0905 (New Bag - Prov ider: Natasha Mcfarland LPN)1209 (Stopped - Provider: Natasha Mcfarland LPN) PRN Medication Order 08/17/2023 08/18/2023 08/19/2023 iopamidol (ISOVUE-370) 76 % injection 75 mL (COMPLETED) 75 mL, IntraVENous, IMG ONCE PRN, 1 dose, Starting on Tue08/19/23 at 1051, Until Tue08/19/23 at 1058, Other 1058 (Given - Provid er: Beth Corral) FOR RECORDS PERTAINING TO PATIENTS WHO ARE [...] BE BASED ON THE PRIMARY CLINICAL RECORDS. [employer] provides no warranty or guarantee of the accuracy or completeness of information in this document.
--- NOTE | 2024-09-22 00:45 | RAD_ITS ---
PROCEDURE: CHEST PA AND LATERAL 09/22/2024 REASON FOR EXAM: COUGH, SOB TECHNIQUE: CHEST PA AND LATERAL COMPARISON: None FINDINGS: Heart: The heart size is normal. Mediastinum: The mediastinal contour is unremarkable. Lungs: The lungs are clear. Bones: The bones are unremarkable. RAD/Chest PA and Lateral IMPRESSION: NEGATIVE CHEST Reading [facility] [address]
[2024-09-22 00:50] VITALS: PULSE 105; RESP 18
[2024-09-22 01:58] VITALS: BP 128/78; PULSE 98; RESP 18; TEMP 37.2; O2SAT 99
== END 2024-09-22 02:03 | disposition home or self-care (01) ==
PROVIDERS: Emergency Provider Emergency Medicine; Visit Provider Emergency Medicine
DX: S09.90XA Unspecified injury of head, initial encounter (principal); Y04.8XXA Assault by other bodily force, initial encounter; S00.83XA Contusion of other part of head, initial encounter; J45.901 Unspecified asthma with (acute) exacerbation; S80.211A Abrasion, right knee, initial encounter; S80.212A Abrasion, left knee, initial encounter; F41.9 Anxiety disorder, unspecified; F32.A Depression, unspecified; Z79.899 Other long term (current) drug therapy; Z98.51 Tubal ligation status; Z90.49 Acquired absence of other specified parts of digestive tract; F17.290 Nicotine dependence, other tobacco product, uncomplicated
CPT/HCPCS: 70450; 70486; 71046; 94640; 99282